=== PATIENT | female | born 2000 | race Caucasian/White ===

== ENCOUNTER 2019-05-02 22:16 | Emergency (ER) | payer MEDICAID, SELFPAY ==
[2019-05-02 22:16] VITALS: BP 134/79; PULSE 82; RESP 16; TEMP 36.9; O2SAT 97; BMI 42.3
--- NOTE | 2019-05-02 22:39 | US_ITS ---
STUDY: ABDOMINAL ULTRASOUND - RIGHT UPPER QUADRANT REASON FOR VISIT: Female, 18 years old ABD PAIN -STARTED TODAY SEVERE NOW . Nausea, vomiting. TECHNIQUE: Ultrasound evaluation of the right upper quadrant was performed with real-time and static go-scale imaging. TECHNICAL QUALITY: Limited. Examination limited due to obesity. COMPARISON: None. FINDINGS: Liver: The liver measures 24 cm. There is increased and heterogeneous echogenicity consistent with fatty infiltration. There is a hypoechoic area within the right hepatic lobe measuring 5.9 x 5.3 x 6.1 and 1.5 x 2.2 cm, in the left hepatic lobe 1.8 x 1.8 x 1.2 cm. The bile ducts are within normal limits. There is hepatic color flow. The direction of portal flow is hepatopetal. There is limited parenchymal detail. Gallbladder: 10.5 cm distended gallbladder. The gallbladder wall measures approximately 3 mm. There is a negative sonographic Taylor''s sign. There is no pericholecystic fluid. There are no gallstones. Common Bile Duct (C.B.D.): The common bile duct measures 5 mm. Pancreas: There is nonvisualization of the pancreas. Right Kidney: Normal size of the right kidney. The right kidney measures 11.5 x 5 x 4.5 cm. Normal renal cortex. The right cortex measures 1.3 cm. There is limited parenchymal detail. There is no right hydronephrosis. US/Gallbladder IMPRESSION: Hepatomegaly and hepatic steatosis. Multiple hypoechoic hepatic lesions could be seen with focal fatty sparing. Other etiologies not excluded. Further assessment can be obtained with dynamic CT liver or MRI. Pancreas and parenchymal detail is limited. No acute cholecystitis, cholelithiasis or biliary ductal obstruction. No ascites or right hydronephrosis. Electronically Signed: Lisa Hannah MD at 23:54 EDT , Service support ,
[2019-05-02] MEDS: Morphine 4 MG/ML Syringe IV (22:51)
[2019-05-02] MEDS: 0.9% Normal Saline 1,000 ML 125 ML IV (22:51)
[2019-05-02] MEDS: Ondansetron 4 MG/2 ML Vial IV (22:52)
[2019-05-02 23:00] LABS: Absolute Lymphocyte Count 1.93 X10^3/uL (0.83-4.51); Absolute Neutrophil Count 3.2 X10^3/uL (2.0-7.7); Basophil# 0.02 X10^3/uL; Basophil% 0.3 % (0-1); Eosinophil# 0.12 X10^3/uL; Eosinophils% 2.1 % (0-5); Hematocrit 39.9 % (37-47); Hemoglobin 12.2 g/dL (12.0-15.0); Lymphocyte # 1.93 X10^3/ul (4.0); Lymphocyte % 33.2 % (19-41); Mean Corp Hgb Conc 30.6 g/dL (32-36); Mean Corpuscular Hgb 23.5 pg (27.0-32.0); Mean Corpuscular Volume 76.7 fL (81-99); Mean Platelet Vol. 11.6 fl (6.2-12.0); Monocyte% 8.6 % (0-10); NRBC Flagged by Analyzer 0 % (0-5); Neutrophil # 3.23 X10^3/uL (2.7-7.7); Neutrophil % 55.5 % (47-70); Platelet Count 241 K/mm3 (150-450); RBC Distribution Width CV 15.3 % (11.6-14.6); White Blood Count 5.8 K/mm3 (4.4-11.0)
[2019-05-02 23:10] LABS: Prothrombin Time (Protime)PT. 13.4 SECONDS (11.7-14.9)
[2019-05-02 23:11] LABS: Partial Thromboplast Time 28.2 Seconds (24.1-36.2)
--- NOTE | 2019-05-02 23:13 | ED.VIS.GEN ---
History of Present Illness Chief Complaint: Abd Pain Informant: Patient Onset: Today Narrative: Patient 4-month with delivery in [facility]. Presents today with increasing abdominal pain with nausea after eating at 2 PM. Reports ate [employer]. She states been having nausea since Sunday, saw urgent care on Sunday reported to monitor symptoms and it was worsen to go to the emergency department. She did not have pain at that time. She reports she is been having nausea with food every time. Today was the first time she had pain. Denies fever. States she had an uncomplicated vaginal delivery. Her last meal was at 2 PM. States did not have any complications with pain during . Reports history of tonsillectomy. Reports bottlefeeding. Denies any allergies. Prior similar symptoms: No Past Medical History - Allergies and Home Meds Allergies/Adverse Reactions: Allergies No Known Allergies Allergy (Verified 05/02/19 22:18) Primary Care Physician: Zurdo Sommers MD [STAFF PHYSICIAN] - 3-5 Days Salo Pederson DO [NON CLINICAL AFFILIATE] - 5-7 Days Past Medical History: - Surgical History: tonsillectomy Smoking Status: Never smoker Review of Systems General: Denies: Chills, Fever, Sweats Eyes: Denies: Visual changes - bilaterally, Diplopia ENT: Denies: Rhinorrhea, Sore throat Cardiovascular: Denies: Chest pain, Palpitations Respiratory: Denies: Dyspnea, Cough, Dyspnea on exertion Gastrointestinal: Reports: Abdominal pain, Nausea. Denies: Vomiting, Diarrhea, Melena, Hematochezia Genitourinary: Denies: Dysuria, Hematuria, Frequency Musculoskeletal: Denies: Back pain, Extremity Pain Skin: Denies: Rash, Wounds Neurological: Denies: Headache, Weakness, Numbness Physical Exam Vital Signs/Narrative: Vital Signs Temp Pulse Resp BP Pulse Ox 05/02/19 22:16 98.4 F 82 16 134/79 H 97 Inital Vital Signs reviewed: Yes General: Well nourished, Well developed, Obese, No Acute Distress Head: Normocephalic, Atraumatic Eyes: Perrl, EOMI ENT: Moist mucous membranes, No rhinorrhea Neck: Supple, Nontender Cardiovascular: Regular rate, Regular rhythm, No murmurs Respiratory: No distress, CTA bilaterally, Chest nontender Abdomen: Soft, Nondistended, Normal bowel sounds, Tender, Taylor's sign, - - Negative McBurney's. Back: Nontender, Normal Inspection Extremities: Nontender, No edema Skin: Normal color, No rash Neurological: Alert, Oriented x3, Cranial nerves II-XII grossly intact, Normal Strength, Normal Sensation Psychological: Normal affect, Normal Mood Diagnostic/Tx/Re-eval Abnormal Lab Results 05/02/19 05/02/19 05/02/19 22:52 22:52 22:52 WBC 5.8 RBC 5.20 Hgb 12.2 Hct 39.9 MCV 76.7 L MCH 23.5 L MCHC 30.6 L RDW Std Deviation 42.0 RDW Coeff of Danielle 15.3 H Plt Count 241 MPV 11.6 Immature Gran % (Auto) 0.300 Neut % (Auto) 55.5 Lymph % (Auto) 33.2 [place] % (Auto) 8.6 Eos % (Auto) 2.1 Baso % (Auto) 0.3 Absolute Neuts (auto) 3.2 Absolute Lymphs (auto) 1.93 Nucleated RBC % 0 PT 13.4 INR 1.0 APTT 28.2 Sodium 140 Potassium 3.8 Chloride 106 Carbon Dioxide 28.0 Anion Gap 6 BUN 13 Creatinine 0.74 Estim Creat Clear Calc 117.93 Est GFR (MDRD) Af Amer 127 Est GFR (MDRD) Non-Af 105 BUN/Creatinine Ratio 17.4 Glucose 79 Calcium 9.0 Total Bilirubin 0.40 Direct Bilirubin 0.12 AST 32 ALT 42 Alkaline Phosphatase 128 H Total Protein 7.8 Albumin 3.4 Globulin 4.4 H Lipase 149 Clinical Impression(s) from Imaging Studies Gallbladder Ultrasound 05/02/19 22:39 IMPRESSION: Hepatomegaly and hepatic steatosis. Multiple hypoechoic hepatic lesions could be seen with focal fatty sparing. Other etiologies not excluded. Further assessment can be obtained with dynamic CT liver or MRI. Pancreas and parenchymal detail is limited. No acute cholecystitis, cholelithiasis or biliary ductal obstruction. No ascites or right hydronephrosis. Electronically Signed: Lisa Hannah MD at 23:54 EDT , Service support , Abdomen/Pelvis CT 05/03/19 00:43 IMPRESSION: Abnormal liver as seen on ultrasound with multiple indistinct hyperattenuation lesions. These may repeat percent hemangiomata less likely focal nodular hyperplasia as benign entities in patient''s age group. Follow-up examination with MRI for confirmation is recommended. Next an eccentric hepatosplenomegaly and hepatic steatosis. Right abdominal mesenteric lymph nodes possible mesenteric adenitis. There is no abscess, collection, perforation or obstruction. Normal pancreas which was obscured on ultrasound. Other nonacute findings as outlined above. Electronically Signed: Lisa Hannah MD at 1:47 EDT , Service support , - Medical Decision Making Patient right upper quadrant tenderness, history concerning for biliary colic especially . Labs obtain ultrasound ordered. Normal white count normal liver enzymes. Slightly elevated ALP. She is treated morphine, Zofran, IV fluids. Ultrasound results negative for any acute process mild distended gallbladder. There is no signs of cholecystitis. Reevaluation space minimal improvement of pain additional morphine given, CT scan obtained for further evaluation. There is no acute process noting normal appendix. There was concerns for likely hemangiomas in her liver. Discussed results with the patient for further testing as an outpatient. Also noted some mesenteric adenopathy. Discussed with the patient biliary colic symptoms, avoiding dairy products and fatty products, she will likely need a HIDA scan as an outpatient. She is feeling better on reevaluation. 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 Also given a PCP due to recently moving in the area per patient. Signs and symptoms discussed to return. All questions were answered. ED Disposition - Plan for ED Patient: Disposition: Home or Assisted Living Diagnosis: Biliary colic, Hemangioma of liver, RUQ abdominal pain Instructions: BILIARY COLIC with Gallstone (Presumed) Prescriptions: Ibuprofen [Motrin] 600 mg PO Q6H PRN PRN #20 tab PRN Reason: Pain Or Fever Prescription Printed Ondansetron [Zofran Odt] 8 mg PO Q8H PRN PRN #10 tab PRN Reason: Nausea Prescription Printed Referrals: Zurdo Sommers MD [STAFF PHYSICIAN] - 3-5 Days Salo Pederson DO [NON CLINICAL AFFILIATE] - 5-7 Days
[2019-05-02 23:17] LABS: AST(SGOT) 32 U/L (15-37); Alanine Aminotransfer ALT/SGPT 42 U/L (13-56); Albumin, Serum 3.4 g/dL (3.2-5.0); Alkaline Phosphatase 128 U/L (45-117); Anion Gap 6 (5-15); BUN 13 mg/dL (7-18); BUN/Creat Ratio 17.4 RATIO (10-20); Bilirubin, Direct 0.12 mg/dL (0.00-0.30); Chloride 106 mmol/L (98-107); Creatinine, Serum 0.74 mg/dL (0.55-1.02); EST Glomerular Filtration Rate 105 mL/min (>60); Est Glom Filt Rate - Afr Amer 127 mL/min (>60); Estimated Creatinine Clearance 117.93 ml/min; Globulin 4.4 g/dL (2.2-4.2); Glucose 79 mg/dL (74-106); Lipase 149 U/L (73-393); Potassium 3.8 mmol/L (3.5-5.1); Protein, Total 7.8 g/dL (6.4-8.2); Sodium Level 140 mmol/L (136-145)
--- NOTE | 2019-05-03 00:43 | CT_ITS ---
STUDY: CT ABDOMEN AND PELVIS WITH CONTRAST REASON FOR EXAM: Female, 18 years old. RIGHT SIDED ABD PAIN WITH N/V, 4 MONTHS POST , ABNORMAL US EARLIER RADIATION DOSAGE (If Supplied By Facility): CTDIvol = ( 20.55 ) mGy, DLP = ( 2203.69 ) mGycm TECHNIQUE: Transaxial 3.75 mm enhanced and 4 minutes delayed abdominal images were obtained from the dome of the diaphragm to the symphysis pubis without oral contrast. IV 100mL Isovue-300 was administered. Sagittal and coronal images were reconstructed. There is obesity, the entirety of soft tissue is not imaged. Individualized dose optimization techniques were used for this CT. COMPARISON: Abdominal ultrasound 05/02/2019. FINDINGS: The visualized lung bases are unremarkable. The visualized portions of the heart are within normal limits. There is decreased attenuation of the enlarged liver consistent with steatosis. Trimester screening caudal 25.5 cm. There is heterogeneous indistinct attenuation of the liver parenchyma, in the left lobe measuring approximately 7.9 x 6.3 by approximately 2.8 cm image 13 series 2 and 1.5 x 1.5 cm image 32 series 2, in the right 0.9 cm image 22, 1.4 x 1.2 cm image 23, 1.5 x 2 cm image 24, 1.1 x 1 cm image 40 series 2. These remain poorly distinct on delayed imaging. The right inferior renal pole contains a 6 x 6 x 5.5 cm hyper attenuation with central hypoattenuation which is more homogeneous than the hyperechoic on delayed imaging. Normal gallbladder and extrahepatic biliary system. There is mild splenomegaly. Spleen measures AP 15 cm. Normal pancreas. Normal bilateral adrenal glands. Normal right kidney. Normal left kidney. Normal visualized stomach. Normal small intestine. There is moderate amount of fecal material. There is otherwise normal colon. The appendix is visualized and appears normal. Image 66-71 series 601. Enlarged mesenteric lymph nodes in the right mid and lower abdomen. Largest measures 0.6 x 1.1 x 1.8 cm. Normal abdominal aorta. Normal inferior vena cava. Normal retroperitoneum. Normal urinary bladder. Normal visualized uterus. There is low attenuation of the ovaries most frequently due to follicular cysts. Normal abdominal wall. Normal osseous structures. 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 CT/Abdomen/Pelvis W IV Cont ONLY IMPRESSION: Abnormal liver as seen on ultrasound with multiple indistinct hyperattenuation lesions. These may repeat percent hemangiomata less likely focal nodular hyperplasia as benign entities in patient''s age group. Follow-up examination with MRI for confirmation is recommended. Next an eccentric hepatosplenomegaly and hepatic steatosis. Right abdominal mesenteric lymph nodes possible mesenteric adenitis. There is no abscess, collection, perforation or obstruction. Normal pancreas which was obscured on ultrasound. Other nonacute findings as outlined above. Electronically Signed: Lisa Hannah MD at 1:47 EDT , Service support ,
[2019-05-03 01:17] VITALS: BP 103/64; PULSE 74; RESP 16; O2SAT 95
[2019-05-03] MEDS: Morphine 4 MG/ML Syringe IV (01:18)
[2019-05-03 02:43] VITALS: BP 110/65; PULSE 82; RESP 16; O2SAT 96
== END 2019-05-03 02:44 | disposition home or self-care (01) ==
PROVIDERS: Emergency Provider Emergency Medicine
DX: K80.50 Calculus of bile duct without cholangitis or cholecystitis without obstruction (principal); D18.03 Hemangioma of intra-abdominal structures; E66.9 Obesity, unspecified
CPT/HCPCS: 74177; 76705; 80048; 80076; 83690; 85025; 85610; 85730; 96361; 96374; 96375; 96376; 99283; J7030; Q9967; A4216; J2405

== ENCOUNTER → 2019-06-03 | Outpatient (CLI) | payer MEDICAID, SELFPAY | END | disposition home or self-care (01) | PROVIDERS: Referring Provider Obstetrics & Gynecology; Visit Provider Obstetrics & Gynecology | DX: R30.0 Dysuria (principal) | CPT/HCPCS: 87086; 87088 ==

== ENCOUNTER → 2019-11-04 16:47 | Outpatient (CLI) | payer MEDICAID, SELFPAY ==
[2019-11-04 18:01] LABS: Thyroid Stim Hormone (TSH) 1.34 uIU/mL (0.358-3.74)
[2019-11-07 16:54] LABS: HPV Reflexed? NOT INDICATED
== END ==
PROVIDERS: Visit Provider Student in an Organized Health Care Education/Training Program
DX: Z12.4 Encounter for screening for malignant neoplasm of cervix (principal); E66.3 Overweight
CPT/HCPCS: 36415; 84443; 88175; G0145

== ENCOUNTER → 2020-06-01 15:22 | Outpatient (CLI) | payer MEDICAID, SELFPAY ==
[2020-06-01 17:18] LABS: Estradiol 60.3 pg/mL; Luteinizing Hormone 10.4 mIU/mL; Prolactin 8.9 ng/mL; T4 Free Direct 1.03 ng/dL (0.76-1.46); Thyroid Stim Hormone (TSH) 1.81 uIU/mL (0.358-3.74)
[2020-06-01 20:23] LABS: Hemoglobin A1c 5.1 % (3.8-5.6)
[2020-06-05 20:04] LABS: Testosterone Free 3.5 pg/mL (0.0-4.2)
[2020-06-10 20:11] LABS: 17-Hydroxyprogesterone 55 ng/dL (.)
== END ==
PROVIDERS: Visit Provider Student in an Organized Health Care Education/Training Program
DX: N92.6 Irregular menstruation, unspecified (principal)
CPT/HCPCS: 36415; 82627; 82670; 83001; 83002; 83036; 83498; 84146; 84402; 84439; 84443; 82626

== ENCOUNTER 2020-06-12 18:32 | Emergency (ER) | payer MEDICAID, SELFPAY ==
[2020-06-12 18:32] VITALS: BP 157/108; PULSE 102; RESP 18; TEMP 36.6; O2SAT 98; BMI 49.8
--- NOTE | 2020-06-12 18:54 | CT_ITS ---
INDICATION: abdominal pain EXAMINATION: CT Abdomen And Pelvis W/ Contrast Injection TECHNIQUE: Helically acquired images were obtained of the abdomen and pelvis after IV contrast. A radiation dose optimization technique was used for this scan. IV Contrast dosage and agent: 100 cc [id number]-300 Oral contrast: None. COMPARISON: 05/03/2019. FINDINGS: Visualized lung bases: Unremarkable Liver: The liver is enlarged and Diffusely hypodense consistent with fatty liver. Multiple hyperattenuating liver masses are again seen, largest of which measures 7.5 x 6.6 cm and in segment 6 (image 70, series 2). Gallbladder: Unremarkable Spleen: Unremarkable Pancreas: Unremarkable Adrenal Glands: Unremarkable Kidneys: Unremarkable Vasculature: Unremarkable GI Tract: Unremarkable Lymphadenopathy: None Peritoneum: No ascites. Bladder: Unremarkable Reproductive organs: Unremarkable Bones/Soft tissues: No suspicious osseous or soft tissue lesions CT/Abdomen/Pelvis W IV Cont ONLY IMPRESSION: Multiple hypoattenuating liver masses are again seen and are stable to slightly increased in size when compared to prior on 05/03/2019. Possible etiologies include hemangiomas, adenomas or focal nodular hyperplasia. Recommend abdominal MRI liver mass protocol for further evaluation. Hepatomegaly. Severe hepatic steatosis. Electronically Signed: Albert Sanders MD at 20:40 EDT Tel , Service support ,
--- NOTE | 2020-06-12 18:55 | ED.DCSUM_ITS ---
History of Present Illness Chief Complaint: Abd Pain Informant: Patient Narrative: 19-year-old female states for about a week now she has had abdominal pain that is worsening. She states that initially it felt like a menstrual cramp but she has not had a menstrual cycle since February. She is currently working with her medical illustrator as to figure out why she is not having regular cycles and is actively trying to get . She tells me that over the week his cramping feeling has gradually worsened has now become more of a constant pain across her low back and across her lower abdomen does not radiate up to her upper abdomen. She states it has been particularly bad at night she has not been sleeping. She states the pain is the worst pain ever at night but despite being the worst pain ever she did not come in until she was talking with her mom abe she wanted her to come in to be seen. She has a history of PCOS. No history of kidney stones. She denies any prior abdominal surgeries. Normal bowel movements. No urinary symptoms Past Medical History - Allergies and Home Meds Allergies/Adverse Reactions: Allergies No Known Allergies Allergy (Verified 06/12/20 18:34) Primary Care Physician: Care Physician,No Primary [Primary Care Provider] - Past Medical History: - - PCOS Surgical History: tonsillectomy Lives: Spouse/ Significant Other Smoking Status: Never smoker Drugs: None Review of Systems General: Denies: Chills, Fever, Sweats Eyes: Denies: Visual changes - bilaterally, Diplopia ENT: Denies: Rhinorrhea, Sore throat Cardiovascular: Denies: Chest pain, Palpitations Respiratory: Denies: Dyspnea, Cough, Dyspnea on exertion Gastrointestinal: Reports: Abdominal pain, Nausea. Denies: Vomiting, Diarrhea, Melena, Hematochezia Genitourinary: Denies: Dysuria, Hematuria, Frequency Musculoskeletal: Denies: Back pain, Extremity Pain Skin: Denies: Rash, Wounds Neurological: Denies: Headache, Weakness, Numbness Physical Exam Vital Signs/Narrative: Vital Signs Temp Pulse Resp BP Pulse Ox 06/12/20 18:32 97.9 F 102 H 18 157/108 H 98 Inital Vital Signs reviewed: Yes General: Well nourished, Well developed, Obese, No Acute Distress Head: Normocephalic, Atraumatic Eyes: Perrl, EOMI ENT: Moist mucous membranes, No rhinorrhea Neck: Supple, Nontender Cardiovascular: Regular rate, Regular rhythm, No murmurs Respiratory: No distress, CTA bilaterally, Chest nontender Abdomen: Soft, Nondistended, Normal bowel sounds, Tender - To palpation of the lower abdomen however I am not palpating through the abdominal wall when she tells me that it is hurting her. Back: Nontender, Normal Inspection Extremities: Nontender, No edema Skin: Normal color, No rash Neurological: Alert, Oriented x3, Cranial nerves II-XII grossly intact, Normal Strength, Normal Sensation Psychological: Normal affect, Normal Mood Diagnostic/Tx/Re-eval Clinical Impression(s) from Imaging Studies Abdomen/Pelvis CT 06/12/20 18:54 IMPRESSION: Multiple hypoattenuating liver masses are again seen and are stable to slightly increased in size when compared to prior on 05/03/2019. Possible etiologies include hemangiomas, adenomas or focal nodular hyperplasia. Recommend abdominal MRI liver mass protocol for further evaluation. Hepatomegaly. Severe hepatic steatosis. Electronically Signed: Albert Sanders MD at 20:40 EDT Tel , Service support , Laboratory Last Values WBC 8.3 K/mm3 (4.4-11.0) 06/12/20 18:56 RBC 5.46 M/mm3 (4.2-5.4) H 06/12/20 18:56 Hgb 13.4 g/dL (12.0-15.0) 06/12/20 18:56 Hct 45.5 % (37-47) 06/12/20 18:56 MCV 83.3 fL (81-99) 06/12/20 18:56 MCH 24.5 pg (27.0-32.0) L 06/12/20 18:56 MCHC 29.5 g/dL (32-36) L 06/12/20 18:56 RDW Std Deviation 40.8 fl (35.1-43.9) 06/12/20 18:56 RDW Coeff of Danielle 13.6 % (11.6-14.6) 06/12/20 18:56 Plt Count 230 K/mm3 (150-450) 06/12/20 18:56 MPV 12.9 fl (6.2-12.0) H 06/12/20 18:56 Immature Gran % (Auto) 0.200 % (0.0-0.9) 06/12/20 18:56 Neut % (Auto) 61.1 % (47-70) 06/12/20 18:56 Lymph % (Auto) 29.8 % (19-41) 06/12/20 18:56 [place] % (Auto) 6.5 % (0-10) 06/12/20 18:56 Eos % (Auto) 1.8 % (0-5) 06/12/20 18:56 Baso % (Auto) 0.6 % (0-1) 06/12/20 18:56 Absolute Neuts (auto) 5.1 X10^3/uL (2.0-7.7) 06/12/20 18:56 Absolute Lymphs (auto) 2.48 X10^3/uL (0.83-4.51) 06/12/20 18:56 Nucleated RBC % 0 % (0-5) 06/12/20 18:56 Sodium 133 mmol/L (136-145) L 06/12/20 18:56 Potassium 5.0 mmol/L (3.5-5.1) 06/12/20 18:56 Chloride 106 mmol/L (98-107) 06/12/20 18:56 Carbon Dioxide 21.0 mmol/L (21.0-32.0) 06/12/20 18:56 Anion Gap 6 (5-15) 06/12/20 18:56 BUN 15 mg/dL (7-18) 06/12/20 18:56 Creatinine 0.78 mg/dL (0.55-1.02) 06/12/20 18:56 Estim Creat Clear Calc 110.95 ml/min 06/12/20 18:56 Est GFR (MDRD) Af Amer 119 mL/min (>60) 06/12/20 18:56 Est GFR (MDRD) Non-Af 99 mL/min (>60) 06/12/20 18:56 BUN/Creatinine Ratio 19.3 RATIO (10-20) 06/12/20 18:56 Glucose 82 mg/dL (74-106) 06/12/20 18:56 Calcium 9.6 mg/dL (8.5-10.1) 06/12/20 18:56 Total Bilirubin 0.70 mg/dL (0.20-1.00) 06/12/20 18:56 AST 56 U/L (15-37) H 06/12/20 18:56 ALT 71 U/L (13-56) H 06/12/20 18:56 Alkaline Phosphatase 115 U/L (45-117) 06/12/20 18:56 Total Protein 8.8 g/dL (6.4-8.2) H 06/12/20 18:56 Albumin 3.7 g/dL (3.2-5.0) 06/12/20 18:56 Globulin 5.1 g/dL (2.2-4.2) H 06/12/20 18:56 Albumin/Globulin Ratio 0.7 RATIO (0.9-2.4) L 06/12/20 18:56 Lipase 122 U/L (73-393) 06/12/20 18:56 Serum , Qual Cancelled 06/12/20 18:56 Urine Color Yellow (Yellow) 06/12/20 18:39 Urine Clarity Cloudy (Clear) 06/12/20 18:39 Urine pH 5.0 (5.0 - 8.0) 06/12/20 18:39 Ur Specific [place] 1.025 (1.002-1.030) 06/12/20 18:39 Urine Protein 15 mg/dl (Negative) H 06/12/20 18:39 Urine Glucose (UA) Normal mg/dl (Normal) 06/12/20 18:39 Urine Ketones Negative mg/dl (Negative) 06/12/20 18:39 Urine Occult Blood 10 /ul (Negative) H 06/12/20 18:39 Urine Nitrite Negative (Negative) 06/12/20 18:39 Urine Bilirubin Negative mg/dL (Negative) 06/12/20 18:39 Urine Urobilinogen Normal mg/dl (Normal) 06/12/20 18:39 Ur Leukocyte Esterase 500 /ul (Negative) H 06/12/20 18:39 Urine RBC 0 SEEN /hpf (0-5) 06/12/20 18:39 Urine WBC 10-25 SEEN /hpf (0-5) 06/12/20 18:39 Ur Squamous Epith Cells 10-25 SEEN /hpf (5-10) 06/12/20 18:39 Urine Bacteria 3+ /hpf (None Seen) 06/12/20 18:39 Urine Mucus 0 SEEN /hpf (<or=2+) 06/12/20 18:39 Urine Test Negative Negative 06/12/20 19:41 - Medical Decision Making Since urine specimen is contaminated with epithelial cells she does have 4+ bacteria. She does have suprapubic discomfort. X-rays will place her on an antibiotic. Otherwise labs show a slight elevation in transaminases. CT the pelvis demonstrates no ureterolithiasis hydronephrosis or hydroureter, there is no large ovarian cyst. There is severe hepatic steatosis which was relayed to the patient. I encouraged her to follow-up with primary care return if worsening or concerns ED Disposition - Plan for ED Patient: Disposition: Home or Assisted Living Diagnosis: Hepatic steatosis, Acute abdominal pain, UTI (urinary tract infection) Instructions: ED Bladder Infection, Female (Adult) Prescriptions: Cephalexin [Keflex] 500 mg PO Q12 #10 capsule Prescription Printed Referrals: Elmer Brown III, MD [STAFF PHYSICIAN] - (as needed for primary care)
[2020-06-12] MEDS: Ondansetron 4 MG/2 ML Vial IV (19:01)
[2020-06-12] MEDS: Ketorolac 30 MG/ML Syringe IV (19:01)
[2020-06-12 19:02] LABS: Mucous, Urine 0 SEEN /hpf (<or=2+); Red Blood Cells-Urine 0 SEEN /hpf (0-5)
[2020-06-12 19:04] LABS: Color, Urine Yellow (Yellow); Glucose, Dipstick Normal (Normal); Ketone-Dipstick Negative (Negative); Leukocyte Esterase-Dipstick 500 /ul (Negative); Nitrite-Dipstick Negative (Negative); Occult Blood-Urine 10 /ul (Negative); Protein-Dipstick 15 mg/dl (Negative); Specific Gravity, Urine 1.025 (1.002-1.030); Urine Bilirubin Dipstick Negative (Negative); Urine Clarity Cloudy (Clear); Urine Urobilinogen Normal (Normal)
[2020-06-12 19:06] LABS: Absolute Lymphocyte Count 2.48 X10^3/uL (0.83-4.51); Absolute Neutrophil Count 5.1 X10^3/uL (2.0-7.7); Basophil# 0.05 X10^3/uL; Basophil% 0.6 % (0-1); Eosinophil# 0.15 X10^3/uL; Eosinophils% 1.8 % (0-5); Hematocrit 45.5 % (37-47); Hemoglobin 13.4 g/dL (12.0-15.0); Lymphocyte # 2.48 X10^3/ul (0.83-4.51); Lymphocyte % 29.8 % (19-41); Mean Corp Hgb Conc 29.5 g/dL (32-36); Mean Corpuscular Hgb 24.5 pg (27.0-32.0); Mean Corpuscular Volume 83.3 fL (81-99); Mean Platelet Vol. 12.9 fl (6.2-12.0); Monocyte# 0.54 X10^3/uL; Monocyte% 6.5 % (0-10); NRBC Flagged by Analyzer 0 % (0-5); Neutrophil # 5.07 X10^3/uL (2.7-7.7); Neutrophil % 61.1 % (47-70); Platelet Count 230 K/mm3 (150-450); RBC Distribution Width CV 13.6 % (11.6-14.6); RBC Distribution Width SD 40.8 fl (35.1-43.9); Red Blood Count 5.46 M/mm3 (4.2-5.4); White Blood Count 8.3 K/mm3 (4.4-11.0)
[2020-06-12 19:13] LABS: Squamous Epithelial Cells - UA 10-25 SEEN /hpf (5-10); White Blood Cells 10-25 SEEN /hpf (0-5)
[2020-06-12 19:17] LABS: ALB/GLOB Ratio 0.7 RATIO (0.9-2.4); AST(SGOT) 56 U/L (15-37); Alanine Aminotransfer ALT/SGPT 71 U/L (13-56); Albumin, Serum 3.7 g/dL (3.2-5.0); Alkaline Phosphatase 115 U/L (45-117); Anion Gap 6 (5-15); BUN 15 mg/dL (7-18); BUN/Creat Ratio 19.3 RATIO (10-20); Calcium,Total 9.6 mg/dL (8.5-10.1); Chloride 106 mmol/L (98-107); Creatinine, Serum 0.78 mg/dL (0.55-1.02); EST Glomerular Filtration Rate 99 mL/min (>60); Est Glom Filt Rate - Afr Amer 119 mL/min (>60); Estimated Creatinine Clearance 110.95 ml/min; Globulin 5.1 g/dL (2.2-4.2); Glucose 82 mg/dL (74-106); Lipase 122 U/L (73-393); Protein, Total 8.8 g/dL (6.4-8.2); Sodium Level 133 mmol/L (136-145)
[2020-06-12 19:25] LABS: Bacteria 3+ /hpf (None Seen)
[2020-06-12 19:53] LABS: Internal QC Validated? YES +Cl - CLEAR BKGD; Pregnancy, Urine Negative Negative
[2020-06-12 20:51] VITALS: RESP 14
[2020-06-12] MEDS: Cephalexin 250 MG Capsule 500 MG PO (21:06)
== END 2020-06-12 21:10 | disposition home or self-care (01) ==
PROVIDERS: Emergency Provider Emergency Medicine
DX: K76.0 Fatty (change of) liver, not elsewhere classified (principal); N39.0 Urinary tract infection, site not specified; E66.9 Obesity, unspecified; Z68.42 Body mass index [BMI] 45.0-49.9, adult
CPT/HCPCS: 74177; 80053; 81001; 81025; 83690; 85025; 96374; 96375; 99285; Q9967; A4216; J2405

== ENCOUNTER → 2020-10-11 08:40 | Outpatient (CLI) | payer MEDICAID, SELFPAY ==
[2020-10-11 11:22] LABS: Progesterone Level 6.79 ng/mL (See Comment)
== END ==
PROVIDERS: Visit Provider Obstetrics & Gynecology
DX: N97.0 Female infertility associated with anovulation (principal)
CPT/HCPCS: 36415; 84144

== ENCOUNTER → 2020-10-19 09:23 | Outpatient (CLI) | payer MEDICAID, SELFPAY ==
[2020-10-19 11:29] LABS: hCG Titer Quant., Serum 6 mIU/mL (1-3)
== END ==
PROVIDERS: Visit Provider Obstetrics & Gynecology
DX: N97.0 Female infertility associated with anovulation (principal)
CPT/HCPCS: 36415; 84702

== ENCOUNTER → 2020-10-21 08:46 | Outpatient (CLI) | payer OTHER, MEDICAID, SELFPAY ==
[2020-07-21 15:18] VITALS: BMI 49.8
[2020-10-21 10:19] LABS: Progesterone Level 1.52 ng/mL (See Comment)
[2020-10-21 11:37] LABS: hCG Titer Quant., Serum 2 mIU/mL (1-3)
== END ==
LOC: LAB.FUTURE 08:48 → LAB 08:50
PROVIDERS: Referring Provider Obstetrics & Gynecology; Visit Provider Obstetrics & Gynecology
DX: N97.0 Female infertility associated with anovulation (principal)
CPT/HCPCS: 36415; 84144; 84702

== ENCOUNTER 2020-10-22 13:28 | Emergency (ER) | payer OTHER, MEDICAID, SELFPAY ==
[2020-10-22 13:29] VITALS: BP 141/58; RESP 71; TEMP 36.4; O2SAT 18; BMI 46.5
--- NOTE | 2020-10-22 14:11 | US_ITS ---
History: pelvic pain, vaginal bleeding Pelvic Ultrasound: Findings: Endovaginal ultrasound imaging of the pelvis. Uterus is normal size with endometrial thickness of 10 mm. The ovaries are normal in size, echogenicity and perfusion. Right ovary measures 3.8 x 3.9 x 2.2 cm. Left ovary measures 3.2 x 3.4 x 2.1 cm. No adnexal mass. No fluid in the cul-de-sac. IMPRESSION: Normal pelvic ultrasound. at 1519 Reported and signed by: Mark Brand MD Electronically Signed: Mark Brand MD at 15:18 EDT Tel , Service support , US/Transvaginal Non-
--- NOTE | 2020-10-22 14:12 | EDS_ITS ---
HPI HPI - Female History of Present Illness Chief Complaint: Vag Bleeding Detail of Chief Complaint: Vaginal bleeding that started last evening Narrative Narrative: Patient presents with vaginal bleeding that started last evening. Patient states initially was light. Patient states that she took a test on October 18 and it was positive at home. Patient called her ADMINISTRATIVE COURT JUSTICE who had her do a quant and was 6. Patient had a repeat quant yesterday and it was 2. Patient states that throughout the night she started having heavy vaginal bleeding and woke up around 10 AM soaked in blood. Patient states that between 10 AM and 11:45 AM she went through 2 pads and change another 1 before coming to the ER. Patient complains of pain in her lower abdomen and into her back. She denies fevers. Patient is G2, P1. [facility] Medical History (Updated 10/22/20 @ 15:[address] Wyatt Pennington, ) PCOS (polycystic ovarian syndrome) Physical exam, pre-employment Home Medications metformin 1,500 mg PO BID 10/22/20 [History Last Taken Unknown] valacyclovir 500 mg PO DAILY 10/22/20 [History Last Taken Unknown] Allergy/AdvReac Type Severity Reaction Status Date / Time No Known Allergies Allergy Verified 06/12/20 18:34 Social History Smoking Status: Never smoker ROS [facility] ED Constitutional Constitutional ED: Reports systems reviewed and no addt'l complaints, except as documented; Denies body ache(s), change in weight or chills Eyes Eyes: Denies acute decrease in peripheral vision, change in vision, double vision or loss of vision ENT ENT ED: Reports none; Denies ear pain, lip swelling, loss taste/smell, neck pain, otalgia or sore throat Cardiovascular Cardiovascular: Reports none; Denies abdominal pain, chest pain with activity, leg edema, lightheadedness, palpitations, rapid heart rate or syncope Respiratory/Chest Respiratory/Chest: Reports none; Denies change in mental status, dry cough, dyspnea, hemoptysis, shortness of breath at rest or shortness of breath with exertion Gastrointestinal Gastrointestinal: Reports none and abdominal pain; Denies change in stool character, diarrhea, hematemesis, hematochezia, melena, rectal bleeding or vomiting Genitourinary Genitourinary ED: Reports none and other Details: Vaginal bleeding ; Denies abdominal discomfort, anuria, dysuria, genital pain or polyuria Musculoskeletal Musculoskeletal: Reports none; Denies arthralgias, back pain, difficulty walking, extremity pain, muscle weakness or myalgias Integumentary Reports none; Denies abscess or rash Neurologic Neurologic: Reports none; Denies abnormal gait, confusion, focal weakness, frequent falls, headache(s), loss of vision, numbness, paresthesias, radicular pain, vertigo or weakness Psychiatric Psychiatric: Reports systems reviewed and no addt'l complaints, except as documented and none; Denies behavioral changes, confusion, difficulty concentrating, hallucinations, suicidal ideation, tactile hallucinations or visual hallucinations Endocrine Endocrinology: Denies none, cold intolerance, excessive sweating, fatigue or heat intolerance Hematologic/Lymphatic Hematologic/Lymphatic: Reports none; Denies anemia, easy bleeding or easy bruising Allergic/Immunologic Allergic/Immunologic ED: Denies as per HPI, none, lip swelling, mouth swelling, throat swelling, tongue swelling or hives EXAM Physical Exam Const Vital Signs: 10/22/20 13:29 Temperature 97.6 F L Temperature Source Temporal Respiratory Rate 71 H Blood Pressure 141/58 H Blood Pressure Mean 85 Pulse Ox 18 Positive well nourished and well developed General Appearance ED: well developed and NAD HEENT Reports TM's clear and moist mucous membranes normocephalic and atraumatic; Negative for trauma or tenderness Tympanic Membrane ED: Yes TM's clear Eyes PERRL and EOMs intact bilaterally General Eye ED: Negative for pale conjunctiva or scleral icterus Neck no lymphadenopathy, supple and no JVD General: Negative for tenderness Chest Wall inspection of chest normal and palpation of chest normal Chest: Negative for tenderness Resp normal respiratory effort and clear to auscultation bilaterally Effort and Inspection: Negative for respiratory distress or pain with movement Auscultation: Negative for rhonchi, wheezes or diminished lung sounds Cardio regular rate, regular rhythm, S1 normal heart sound, S2 normal heart sound and no murmurs Peripheral Pulses: pulses 2+ throughout GI normal to inspection, nondistended, normoactive bowel sounds, soft to palpation, non-distended and no masses GI Narrative: Patient has some diffuse suprapubic tenderness on palpation. There is no rebound, rigidity, or peritoneal signs. Back/Spine no CVA tenderness and no thoracic nor lumbar tenderness Extremity normal to inspection General Extremety ED: Negative for edema General Extremity: Negative for edema Neuro oriented x3, CN's II-XII intact bilaterally, no sensory deficits noted and gait normal Sensorium / Orientation: awake, alert, oriented to person, oriented to place and oriented to time Motor Exam: strength 5/5 throughout and strength abnormal Psych mental status grossly normal Skin no rashes or lesions noted and no wounds MDM MDM MDM Narrative Medical decision making narrative: Patient had an IV line established on arrival. Case was discussed with patient's ADMINISTRATIVE COURT JUSTICE Dr. Shannan Moe. Patient will be discharged home and advised to return if she is saturating more than a pad an hour for 4 consecutive hours. Her pelvic ultrasound was unremarkable. Her quant was less than 1 today. Patient hemodynamically stable. She is advised to return if persistent heavy bleeding, lightheadedness, syncope, or condition should worsen anyway. Lab Data Attestation: I reviewed the patient's lab results. Labs: Laboratory Results - last 24 hr 10/22/20 10/22/20 10/22/20 13:44 13:49 13:49 WBC 6.2 RBC 5.21 Hgb 13.2 Hct 41.8 MCV 80.2 L MCH 25.3 L MCHC 31.6 L RDW Std Deviation 39.0 RDW Coeff of Danielle 13.6 Plt Count 262 MPV 11.8 Immature Gran % (Auto) 0.300 Neut % (Auto) 63.9 Lymph % (Auto) 28.1 [place] % (Auto) 6.1 Eos % (Auto) 1.0 Baso % (Auto) 0.6 Absolute Neuts (auto) 4.0 Absolute Lymphs (auto) 1.75 Nucleated RBC % 0 HCG, Quant < 1 Urine Color Urine Clarity Urine pH Ur Specific [place] Urine Protein Urine Glucose (UA) Urine Ketones Urine Occult Blood Urine Nitrite Urine Bilirubin Urine Urobilinogen Ur Leukocyte Esterase Urine RBC Urine WBC Ur Squamous Epith Cells Urine Bacteria Urine Mucus Blood Type O POSITIVE 10/22/20 15:17 WBC RBC Hgb Hct MCV MCH MCHC RDW Std Deviation RDW Coeff of Danielle Plt Count MPV Immature Gran % (Auto) Neut % (Auto) Lymph % (Auto) [place] % (Auto) Eos % (Auto) Baso % (Auto) Absolute Neuts (auto) Absolute Lymphs (auto) Nucleated RBC % HCG, Quant Urine Color Yellow Urine Clarity Cloudy Urine pH 6.0 Ur Specific [place] 1.020 Urine Protein 30 H Urine Glucose (UA) Normal Urine Ketones Negative Urine Occult Blood 250 H Urine Nitrite Negative Urine Bilirubin Negative Urine Urobilinogen Normal Ur Leukocyte Esterase 100 H Urine RBC > 100 SEEN Urine WBC 10-25 SEEN Ur Squamous Epith Cells 5-10 SEEN Urine Bacteria 1+ Urine Mucus 0 SEEN Blood Type Radiography Diagnostic Testing: Radiology Impression Transvaginal US 10/22/20 14:11 Discharge Plan Triage Chief Complaint: Vag Bleeding ED Provider: Wyatt Pennington Dx/Rx/DC Orders Clinical Impression: Vaginal bleeding Instructions: ED Dysfunctional Uterine Bleeding Prescriptions: No Action valacyclovir 500 mg tablet 500 mg PO DAILY RF: 0 metformin 500 mg tablet extended release 24 hr 1,500 mg PO BID RF: 0 Primary Care Provider: Care Physician,No Primary Referrals: Alicja Nagy MD [STAFF PHYSICIAN] - 3-5 Days Care Physician,No Primary [Primary Care Provider] - Disposition Disposition: Home, Self Care
[2020-10-22] MEDS: Morphine 4 MG/ML Syringe IV (14:16)
[2020-10-22] MEDS: Ondansetron 4 MG/2 ML Vial IV (14:16)
[2020-10-22 14:20] LABS: Absolute Lymphocyte Count 1.75 X10^3/uL (0.83-4.51); Basophil# 0.04 X10^3/uL; Basophil% 0.6 % (0-1); Eosinophil# 0.06 X10^3/uL; Hematocrit 41.8 % (37-47); Hemoglobin 13.2 g/dL (12.0-15.0); Lymphocyte # 1.75 X10^3/ul (0.83-4.51); Lymphocyte % 28.1 % (19-41); Mean Corp Hgb Conc 31.6 g/dL (32-36); Mean Corpuscular Hgb 25.3 pg (27.0-32.0); Mean Corpuscular Volume 80.2 fL (81-99); Mean Platelet Vol. 11.8 fl (6.2-12.0); Monocyte# 0.38 X10^3/uL; Monocyte% 6.1 % (0-10); NRBC Flagged by Analyzer 0 % (0-5); Neutrophil # 3.98 X10^3/uL (2.7-7.7); Neutrophil % 63.9 % (47-70); Platelet Count 262 K/mm3 (150-450); RBC Distribution Width CV 13.6 % (11.6-14.6); Red Blood Count 5.21 M/mm3 (4.2-5.4); White Blood Count 6.2 K/mm3 (4.4-11.0)
[2020-10-22 14:46] LABS: hCG Titer Quant., Serum < 1 mIU/mL (1-3)
[2020-10-22 15:22] LABS: Mucous, Urine 0 SEEN /hpf (<or=2+)
[2020-10-22 15:24] LABS: Color, Urine Yellow (Yellow); Glucose, Dipstick Normal (Normal); Ketone-Dipstick Negative (Negative); Leukocyte Esterase-Dipstick 100 /ul (Negative); Nitrite-Dipstick Negative (Negative); Occult Blood-Urine 250 /ul (Negative); Protein-Dipstick 30 mg/dl (Negative); Urine Bilirubin Dipstick Negative (Negative); Urine Clarity Cloudy (Clear); Urine Urobilinogen Normal (Normal)
[2020-10-22 15:35] LABS: Bacteria 1+ /hpf (None Seen); Red Blood Cells-Urine > 100 SEEN /hpf (0-5); Squamous Epithelial Cells - UA 5-10 SEEN /hpf (5-10); White Blood Cells 10-25 SEEN /hpf (0-5)
[2020-10-22 15:58] VITALS: BP 123/71; PULSE 71; RESP 15; O2SAT 98
== END 2020-10-22 15:59 | disposition home or self-care (01) ==
PROVIDERS: Emergency Provider Emergency Medicine
DX: N93.9 Abnormal uterine and vaginal bleeding, unspecified (principal); E28.2 Polycystic ovarian syndrome; Z79.84 Long term (current) use of oral hypoglycemic drugs
CPT/HCPCS: 76830; 81001; 84702; 85025; 86900; 86901; 93976; 96374; 96375; 99283; A4216; J2405

== ENCOUNTER → 2021-01-07 07:47 | Outpatient (CLI) | payer OTHER, MEDICAID, SELFPAY ==
[2021-01-07 09:03] LABS: Glucose GTT- Fasting 104 mg/dL (74-106)
[2021-01-07 09:06] LABS: Glucose GTT-30 minutes 172 mg/dL (110-170)
[2021-01-07 09:46] LABS: Glucose GTT- 1 Hour 171 mg/dL (120-170)
[2021-01-07 11:38] LABS: Glucose GTT- 2 Hour 149 mg/dL (70-120)
[2021-01-07 11:40] LABS: Glucose GTT- 3 Hour 73 mg/dL (74-106)
== END ==
PROVIDERS: Referring Provider Obstetrics & Gynecology; Visit Provider Obstetrics & Gynecology
DX: E28.2 Polycystic ovarian syndrome (principal)
CPT/HCPCS: 36415; 82951; 82952

== ENCOUNTER 2021-02-22 09:43 | Emergency (ER) | payer MEDICAID, SELFPAY ==
[2021-02-22 09:45] VITALS: BP 136/87; PULSE 93; RESP 18; TEMP 35.8; O2SAT 96; BMI 46.5
--- NOTE | 2021-02-22 10:36 | EKG12_ITS ---
Test Reason : CP Blood Pressure : / mmHG Vent. Rate : 079 BPM Atrial Rate : 079 BPM P-R Int : 176 ms QRS Dur : 102 ms QT Int : 374 ms P-R-T Axes : 014 014 022 degrees QTc Int : 428 ms Normal sinus rhythm Normal ECG Confirmed by ZOYA BEJARANO, EDUARDO ([id number]), editor at large REECE MCKOY ([id number]) on 02/24/2021 11:03:45 AM Referred By: SAI Confirmed By:EDUARDO KENNY MD
--- NOTE | 2021-02-22 10:42 | ED.VIS.CHEST ---
HPI History of Present Illness Chief Complaint: Chest Pain Onset/Context/Timing Onset: Yesterday Activity at onset: gradual Timing: Continuous Quality: Positive for Heaviness Location: Substernal Current Severity: Moderate Maximum Severity: Moderate Worsened By: Breathing and Coughing Relieved By: Nothing Associated Symptoms: Positive for Nausea (gone since last week), Dyspnea (mild, like I can't take a deep breath), Cough and Fever; Negative for Diaphoresis, Lightheadedness, Acid Reflux and Palpitations Narrative Narrative: Patient has had upper respiratory tract infection symptoms for 1 week. 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 She has had several rapid test that were negative since starting to get sick. She is unvaccinated and has never had Covid. She has PCOS history. She states she no longer is having fever, nausea, vomiting, diarrhea. She still has significant cough that feels like it is down her chest. Occasional fevers. No myalgias. Occasional headache. She has had chest symptoms including heaviness that feels like it hurts to take a deep breath since yesterday. PE Risk Factors: Negative for Recent Travel/Surgery, Recent Immobilization, Prior DVT or PE, Cancer and OCP + Smoking + >/=35 PFSH PFSH Medical History PCOS (polycystic ovarian syndrome) Physical exam, pre-employment Home Medications metformin 1,000 mg PO BID 10/22/20 [History Last Taken Unknown] valacyclovir 500 mg PO DAILY 10/22/20 [History Last Taken Unknown] Allergy/AdvReac Type Severity Reaction Status Date / Time No Known Allergies Allergy Verified 02/22/21 09:43 Social History Smoking Status: Never smoker ROS ROS ED Constitutional Constitutional ED: Reports chills, fatigue, fever(s), headache(s) and malaise; Denies body ache(s) Eyes Eyes: Denies change in vision or diplopia ENT ENT ED: Denies rhinorrhea or sore throat Cardiovascular Cardiovascular: Reports as per HPI and chest pain; Denies palpitations Respiratory/Chest Respiratory/Chest: Reports cough and dyspnea; Denies dyspnea on exertion Gastrointestinal Gastrointestinal: Reports diarrhea, nausea and vomiting; Denies abdominal pain Genitourinary Genitourinary ED: Denies dysuria or hematuria Musculoskeletal Musculoskeletal: Denies back pain or neck pain Integumentary Denies abscess or rash Neurologic Neurologic: Reports headache(s); Denies paresthesias or weakness Psychiatric Psychiatric: Denies anxiety or suicidal thoughts EXAM Physical Exam Const Vital Signs: 02/22/21 09:45 02/22/21 09:56 02/22/21 12:57 Temperature 96.5 F L Temperature Source Temporal Pulse Rate 93 83 Respiratory Rate 18 14 Respiratory Effort Normal Non-Labored Blood Pressure 136/87 H 122/69 H Blood Pressure Mean 103 86 Pulse Ox 96 Oxygen Delivery Method Room Air Positive well nourished and well developed Constitutional Narrative: Well-appearing, no distress General Appearance ED: well developed and NAD HEENT Reports moist mucous membranes normocephalic and atraumatic Eyes PERRL and EOMs intact bilaterally Neck full ROM and supple Resp normal respiratory effort and clear to auscultation bilaterally Cardio regular rate, regular rhythm and no murmurs Rate: Negative for tachycardic GI non-tender and non-distended Auscultation: normoactive bowel sounds Palpation: soft Back/Spine no CVA tenderness General Back: other FROM Extremity normal to inspection and no calf tenderness General Extremety ED: Negative for edema, pulses abnormal or tenderness General Extremity: Negative for edema or pulses abnormal Neuro oriented x3, CN's II-XII intact bilaterally and no sensory deficits noted Sensorium / Orientation: awake and alert Motor Exam: strength 5/5 throughout Skin no rashes or lesions noted and no wounds MDM MDM MDM Narrative Medical decision making narrative: Patient's rapid Covid is negative as is her rapid influenza. Her testing is all negative with a very low white blood count of 6.6, her D-dimer is negative, her EKG and troponin are normal, so not likely that she has myocarditis. She likely is having chest discomfort that is either GI or pulmonary in etiology. At this time I think supportive care is recommended. I will offer her an outpatient Covid PCR but I do not think we need to await the results. She should discuss with her employer regarding whether she should go back to work or not, using a mask which they always do anyway since she works in a long-term. Lab Data Attestation: I reviewed the patient's lab results. Labs: Laboratory Results - last 24 hr 0102/22/21 02/22/21 10:55 10:55 10:55 WBC 6.6 RBC 5.59 H Hgb 13.9 Hct 44.6 MCV 79.8 L MCH 24.9 L MCHC 31.2 L RDW Std Deviation 40.1 RDW Coeff of Danielle 13.9 Plt Count 269 MPV 12.1 H Immature Gran % (Auto) 0.300 Neut % (Auto) 65.0 Lymph % (Auto) 25.8 [place] % (Auto) 5.9 Eos % (Auto) 2.4 Baso % (Auto) 0.6 Absolute Neuts (auto) 4.3 Absolute Lymphs (auto) 1.70 Nucleated RBC % 0 D-Dimer Quant (PE/DVT) < 0.27 L Sodium 140 Potassium 3.8 Chloride 101 Carbon Dioxide 30.0 Anion Gap 9 BUN 11 Creatinine 0.77 Estim Creat Clear Calc 111.44 Est GFR (MDRD) Af Amer 120 Est GFR (MDRD) Non-Af 100 BUN/Creatinine Ratio 14.3 Glucose 95 Calcium 9.8 Troponin I High Sens 6 Radiography Diagnostic Testing: Clinical Impression(s) from Imaging Studies Chest X-Ray 02/22/21 11:00 IMPRESSION: Normal x-ray examination of the chest. Electronically Signed: Reynaldo Curran MD at 11:47 EST , Service support , EKG Initial EKG: Attestation: I personally reviewed and interpreted this EKG as follows: Interpretation: Sinus Rhythm (79) and No Acute Injury Pattern Comments: normal EKG. No S1Q3T3. Discharge Plan Triage Chief Complaint: Chest Pain ED Provider: Marek Benitez Dx/Rx/DC Orders Clinical Impression: Acute viral syndrome, Suspected 2019-nCoV infection Instructions: Coronavirus Disease 2019 (COVID-19): Overview, ED Viral Syndrome (Adult) Prescriptions: No Action valacyclovir 500 mg tablet 500 mg PO DAILY RF: 0 metformin 500 mg tablet extended release 24 hr 1,000 mg PO BID RF: 0 Primary Care Provider: Care Physician,No Primary Referrals: Luis Cross DO [STAFF PHYSICIAN] - 3-5 Days if not improving Care Physician,No Primary [Primary Care Provider] - Disposition Disposition: Home, Self Care
--- NOTE | 2021-02-22 11:00 | RAD_ITS ---
STUDY: X-RAY CHEST REASON FOR EXAM: Female, 20 years old. Cough chest pain sob TECHNIQUE: Single AP portable view of the chest. COMPARISON: None. FINDINGS: EKG electrodes are seen. The lungs are clear and expanded. Scattered calcified granulomas. There is no demonstrated pleural abnormality. Normal size heart. Normal mediastinum and suman. Normal visualized pulmonary arteries. Normal visualized aortic arch and descending thoracic aorta. Normal visualized thoracic spine. Normal visualized ribs, clavicles, and shoulders. There is no demonstrated abnormality of the visualized soft tissue structures of the upper abdomen. RAD/Chest 1 View (Portable) IMPRESSION: Normal x-ray examination of the chest. Electronically Signed: Reynaldo Curran MD at 11:47 EST , Service support ,
[2021-02-22 11:09] LABS: Absolute Neutrophil Count 4.3 X10^3/uL (2.0-7.7); Basophil# 0.04 X10^3/uL; Basophil% 0.6 % (0-1); Eosinophil# 0.16 X10^3/uL; Eosinophils% 2.4 % (0-5); Hematocrit 44.6 % (37-47); Hemoglobin 13.9 g/dL (12.0-15.0); Lymphocyte % 25.8 % (19-41); Mean Corp Hgb Conc 31.2 g/dL (32-36); Mean Corpuscular Hgb 24.9 pg (27.0-32.0); Mean Corpuscular Volume 79.8 fL (81-99); Mean Platelet Vol. 12.1 fl (6.2-12.0); Monocyte# 0.39 X10^3/uL; Monocyte% 5.9 % (0-10); NRBC Flagged by Analyzer 0 % (0-5); Neutrophil # 4.29 X10^3/uL (2.7-7.7); Platelet Count 269 K/mm3 (150-450); RBC Distribution Width CV 13.9 % (11.6-14.6); RBC Distribution Width SD 40.1 fl (35.1-43.9); Red Blood Count 5.59 M/mm3 (4.2-5.4); White Blood Count 6.6 K/mm3 (4.4-11.0)
[2021-02-22 11:28] LABS: Anion Gap 9 (5-15); BUN 11 mg/dL (7-18); BUN/Creat Ratio 14.3 RATIO (10-20); Calcium,Total 9.8 mg/dL (8.5-10.1); Chloride 101 mmol/L (98-107); Creatinine, Serum 0.77 mg/dL (0.55-1.02); EST Glomerular Filtration Rate 100 mL/min (>60); Est Glom Filt Rate - Afr Amer 120 mL/min (>60); Estimated Creatinine Clearance 111.44 ml/min; Glucose 95 mg/dL (74-106); Potassium 3.8 mmol/L (3.5-5.1); Sodium Level 140 mmol/L (136-145); Troponin-I HS 6 pg/mL (3.0-54.0)
--- NOTE | 2021-02-22 11:42 | CM.ED ---
SW Note Referral Source: Case Find Referral Reason: NO PCP SW met with patient and she confirmed she has no PCP. Patient was provided with Healthcare Provider Directory from [facility]. No other SW needs voiced at this time. Plan: Provided with PCP resources Linnea TOMLINSON
[2021-02-22 12:57] VITALS: BP 122/69; PULSE 83; RESP 14
[2021-02-22 13:29] LABS: D-Dimer Quantitative (DVT/PE) < 0.27 FEU/ug/m (0.27-0.49)
[2021-02-22 15:11] VITALS: BP 123/78; PULSE 79; O2SAT 98
== END 2021-02-22 15:11 | disposition home or self-care (01) ==
PROVIDERS: Emergency Provider Emergency Medicine; Visit Provider Emergency Medicine
DX: B34.9 Viral infection, unspecified (principal); R07.89 Other chest pain; Z20.822 Contact with and (suspected) exposure to COVID-19
CPT/HCPCS: U0003; 71045; 80048; 84484; 85025; 85379; 87426; 87635; 87804; 93005; 99283; J7030; U0005

== ENCOUNTER 2021-05-30 14:16 | Outpatient (CLI) | payer MEDICAID, SELFPAY ==
[2021-05-30 15:38] LABS: Progesterone Level 11.73 ng/mL (See Comment)
== END 2021-05-30 23:59 | disposition home or self-care (01) ==
LOC: WOBLAB 14:17
PROVIDERS: Visit Provider Obstetrics & Gynecology
DX: N97.0 Female infertility associated with anovulation (principal)
CPT/HCPCS: 36415; 84144

== ENCOUNTER → 2021-06-28 | Outpatient (CLI) | payer MEDICAID, SELFPAY ==
[2021-06-28 15:43] LABS: Progesterone Level 17.58 ng/mL (See Comment)
== END | disposition home or self-care (01) ==
PROVIDERS: Visit Provider Obstetrics & Gynecology
DX: N97.0 Female infertility associated with anovulation (principal)
CPT/HCPCS: 36415; 84144

== ENCOUNTER → 2021-06-30 | Outpatient (CLI) | payer MEDICAID, SELFPAY ==
[2021-06-30 16:50] LABS: hCG Titer Quant., Serum 33 mIU/mL (1-3)
== END | disposition home or self-care (01) ==
LOC: WOBLAB 15:48
PROVIDERS: Visit Provider Student in an Organized Health Care Education/Training Program
DX: N91.2 Amenorrhea, unspecified (principal)
CPT/HCPCS: 36415; 84702

== ENCOUNTER → 2021-07-02 | Outpatient (CLI) | payer MEDICAID, SELFPAY ==
[2021-07-02 10:22] LABS: hCG Titer Quant., Serum 79 mIU/mL (1-3)
== END | disposition home or self-care (01) ==
LOC: LAB 08:58
PROVIDERS: Referring Provider Obstetrics & Gynecology; Visit Provider Obstetrics & Gynecology
DX: N91.2 Amenorrhea, unspecified (principal)
CPT/HCPCS: 36415; 84702

== ENCOUNTER → 2021-08-23 | Outpatient (CLI) | payer MEDICAID, SELFPAY ==
[2021-08-23 17:59] LABS: Absolute Lymphocyte Count 1.47 X10^3/uL (0.83-4.51); Absolute Neutrophil Count 4.4 X10^3/uL (2.0-7.7); Basophil# 0.01 X10^3/uL; Basophil% 0.2 % (0-1); Eosinophil# 0.06 X10^3/uL; Eosinophils% 0.9 % (0-5); Hematocrit 39.2 % (37-47); Hemoglobin 12.7 g/dL (12.0-15.0); Lymphocyte # 1.47 X10^3/ul (0.83-4.51); Lymphocyte % 23.2 % (19-41); Mean Corp Hgb Conc 32.4 g/dL (32-36); Mean Corpuscular Hgb 26.4 pg (27.0-32.0); Mean Corpuscular Volume 81.5 fL (81-99); Mean Platelet Vol. 12.5 fl (6.2-12.0); Monocyte# 0.37 X10^3/uL; Monocyte% 5.8 % (0-10); NRBC Flagged by Analyzer 0 % (0-5); Neutrophil % 69.4 % (47-70); Platelet Count 247 K/mm3 (150-450); RBC Distribution Width CV 13.7 % (11.6-14.6); RBC Distribution Width SD 39.9 fl (35.1-43.9); Red Blood Count 4.81 M/mm3 (4.2-5.4); White Blood Count 6.3 K/mm3 (4.4-11.0)
[2021-08-23 18:35] LABS: HIV - WCH Non-Reactive (Nonreactive); Hepatitis B Surface Antigen Non-Reactive (Nonreactive); Hepatitis C Antibody Non-Reactive (Nonreactive); Rubella IgG Reactive (Nonreactive); Syphilis Antibodies Non-reactive
[2021-08-25 22:07] LABS: Chlamydia By Nucleic Acid AMP Negative (Negative)
[2021-08-25 22:23] LABS: Gonococcus By Nucleic Acid AMP Negative (Negative)
== END | disposition home or self-care (01) ==
LOC: WOBLAB 15:40
PROVIDERS: Visit Provider Student in an Organized Health Care Education/Training Program
DX: Z34.81 Encounter for supervision of other normal pregnancy, first trimester (principal); Z11.3 Encounter for screening for infections with a predominantly sexual mode of transmission
CPT/HCPCS: 36415; 85025; 86703; 86762; 86780; 86803; 87086; 87088; 87340; 87491; 87591

== ENCOUNTER → 2021-09-13 | Outpatient (CLI) | payer MEDICAID, SELFPAY ==
[2021-09-13 15:33] LABS: Glucose Challenge Gest 1H 50g 102 mg/dL (70-140)
== END | disposition home or self-care (01) ==
PROVIDERS: Visit Provider Student in an Organized Health Care Education/Training Program
DX: Z34.82 Encounter for supervision of other normal pregnancy, second trimester (principal)
CPT/HCPCS: 36415; 82950

== ENCOUNTER 2021-11-26 17:10 | Outpatient (CLI) | payer MEDICAID, SELFPAY ==
[2021-11-26 17:25] VITALS: TEMP 36.8
[2021-11-26 17:26] VITALS: BP 118/64; PULSE 90
[2021-11-26 17:43] VITALS: BMI 43.9
[2021-11-26 18:24] LABS: Color, Urine Yellow (Yellow); Glucose, Dipstick Normal (Normal); Leukocyte Esterase-Dipstick 500 /ul (Negative); Nitrite-Dipstick Negative (Negative); Occult Blood-Urine 50 /ul (Negative); Protein-Dipstick 15 mg/dl (Negative); Specific Gravity, Urine 1.015 (1.002-1.030); Urine Bilirubin Dipstick Negative (Negative); Urine Clarity Cloudy (Clear); Urine Urobilinogen 1 mg/dl (Normal); Urine pH 6.5 (5.0 - 8.0)
[2021-11-26 18:37] LABS: Ketone-Dipstick 150 mg/dl (Negative)
--- NOTE | 2021-11-27 05:12 | PCM.PN.OB ---
Subjective Subjective Patient at 24/5w with di/di twins presenting with pelvic pressure and spotting. Possible low lying placenta on last ultrasound at 22w. Had spotting around that time, resolved and then started again Sunday night. Spotting light with wiping. Pelvic pressure when standing. Babies moving. Reports back pain. Objective Data Objective Data Vital Signs: Vital Signs Temp Pulse BP 98.3 F 90 118/64 11/26/21 17:25 11/26/21 17:26 11/26/21 17:26 Weight: 127.3 kg Body Mass Index (BMI) 43.9 Lab / Micro Data Attestation: I reviewed the patient's lab results. Labs: Laboratory Results - last 24 hr 11/26/21 18:00: Urine Color Yellow, Urine Clarity Cloudy, Urine pH 6.5, Ur Specific [place] 1.015, Urine Protein 15 H, Urine Glucose (UA) Normal, Urine Ketones 150 A*, Urine Occult Blood 50 H, Urine Nitrite Negative, Urine Bilirubin Negative, Urine Urobilinogen 1 H, Ur Leukocyte Esterase 500 H Physical Exam Const alert, oriented x3 and no apparent distress HEENT normocephalic Resp normal respiratory effort GI soft to palpation, non-tender and non-distended Inspection: gravid Narrative: SSE: no blood in vaginal vault, no blood on cervix,no active bleeding. Cervix appears closed and thick on visual inspection. Small area that appears irritated at 4 o'clock position. Cervix palpated long on exam posteriorly to cervix. Extremity no pedal edema Psych mental status grossly normal and affect normal Assessment & Plan (1) Vaginal bleeding: PLAN: Plan 24/5w twin gestation with spotting and pelvic pressure. Possible UTI on UA, urine cx sent. Will treat empirically. Increase PO water hydration. No bleeding on exam. Cervix closed. BSUS completed with baby A and baby B both moving, HRs 140-150s. Subjectively normal fluid. No contractions palpated, none on toco. Patient to increase hydration, rest at home. Will follow up this week in office. Likely pressure from 24w twin gestation. Spotting secondary to cervical irritation vs low lying placenta. To call or return for increased pelvic pressure, bleeding,regular contractions, decreased FM. All questions answered. Patient feels comfortable home going.
== END 2021-11-26 19:05 | disposition home or self-care (01) ==
LOC: WPOUT 17:16 → WP 17:17
PROVIDERS: Visit Provider Student in an Organized Health Care Education/Training Program
DX: O26.852 Spotting complicating pregnancy, second trimester (principal); O26.892 Other specified pregnancy related conditions, second trimester; R10.2 Pelvic and perineal pain; Z3A.24 24 weeks gestation of pregnancy
CPT/HCPCS: 59050; 76815; 81002; 87086; 87088; 99218; G0378

== ENCOUNTER → 2021-11-28 | Outpatient (CLI) | payer MEDICAID, SELFPAY ==
[2021-11-28 14:26] LABS: Absolute Lymphocyte Count 1.13 X10^3/uL (0.83-4.51); Absolute Neutrophil Count 4.2 X10^3/uL (2.0-7.7); Basophil# 0.01 X10^3/uL; Basophil% 0.2 % (0-1); Eosinophil# 0.05 X10^3/uL; Eosinophils% 0.9 % (0-5); Hematocrit 33.6 % (37-47); Hemoglobin 10.6 g/dL (12.0-15.0); Lymphocyte # 1.13 X10^3/ul (0.83-4.51); Lymphocyte % 19.7 % (19-41); Mean Corp Hgb Conc 31.5 g/dL (32-36); Mean Corpuscular Hgb 25.5 pg (27.0-32.0); Mean Corpuscular Volume 80.8 fL (81-99); Monocyte# 0.36 X10^3/uL; Monocyte% 6.3 % (0-10); NRBC Flagged by Analyzer 0 % (0-5); Neutrophil # 4.17 X10^3/uL (2.7-7.7); Neutrophil % 72.7 % (47-70); Platelet Count 214 K/mm3 (150-450); RBC Distribution Width CV 14.1 % (11.6-14.6); Red Blood Count 4.16 M/mm3 (4.2-5.4); White Blood Count 5.7 K/mm3 (4.4-11.0)
[2021-11-28 14:30] LABS: Glucose Challenge Gest 1H 50g 140 mg/dL (70-140)
== END | disposition home or self-care (01) ==
LOC: WOBLAB 13:29
PROVIDERS: Visit Provider Student in an Organized Health Care Education/Training Program
DX: Z34.82 Encounter for supervision of other normal pregnancy, second trimester (principal)
CPT/HCPCS: 36415; 82950; 85025

== ENCOUNTER → 2021-12-02 | Outpatient (CLI) | payer MEDICAID, SELFPAY ==
[2021-12-02 09:44] LABS: Glucose GTT-Gestation. Fasting 93 mg/dL (<105)
[2021-12-02 11:06] LABS: Glucose GTT-Gestational 1 Hr 144 mg/dL (<190)
[2021-12-02 11:40] LABS: Glucose GTT-Gestational 2 Hr 106 mg/dL (<165)
[2021-12-02 12:34] LABS: Glucose GTT-Gestational 3 Hr 85 L (<145)
== END | disposition home or self-care (01) ==
LOC: WOBLAB 08:52
PROVIDERS: Visit Provider Student in an Organized Health Care Education/Training Program
DX: O99.810 Abnormal glucose complicating pregnancy (principal); Z3A.00 Weeks of gestation of pregnancy not specified
CPT/HCPCS: 36415; 82951; 82952

== ENCOUNTER 2022-01-17 14:58 | Outpatient (CLI) | payer MEDICAID, SELFPAY ==
[2022-01-17 15:17] LABS: Absolute Lymphocyte Count 1.11 X10^3/uL (0.83-4.51); Absolute Neutrophil Count 3.1 X10^3/uL (2.0-7.7); Basophil# 0.02 X10^3/uL; Basophil% 0.4 % (0-1); Eosinophil# 0.02 X10^3/uL; Eosinophils% 0.4 % (0-5); Hematocrit 33.3 % (37-47); Hemoglobin 10.7 g/dL (12.0-15.0); Lymphocyte # 1.11 X10^3/ul (0.83-4.51); Lymphocyte % 24.3 % (19-41); Mean Corp Hgb Conc 32.1 g/dL (32-36); Mean Corpuscular Hgb 24.9 pg (27.0-32.0); Mean Corpuscular Volume 77.6 fL (81-99); Mean Platelet Vol. 11.4 fl (6.2-12.0); Monocyte# 0.31 X10^3/uL; Monocyte% 6.8 % (0-10); NRBC Flagged by Analyzer 0 % (0-5); Neutrophil # 3.08 X10^3/uL (2.7-7.7); Neutrophil % 67.7 % (47-70); Platelet Count 207 K/mm3 (150-450); RBC Distribution Width CV 14.2 % (11.6-14.6); RBC Distribution Width SD 39.5 fl (35.1-43.9); Red Blood Count 4.29 M/mm3 (4.2-5.4); White Blood Count 4.6 K/mm3 (4.4-11.0)
[2022-01-17 15:25] VITALS: BMI 47.3
[2022-01-17 15:57] LABS: Protein, Urine (Random) 67.9 mg/dL (<11.9); Protein:Creat Ratio 239 mg/g CRE (0-200)
[2022-01-17 15:59] LABS: ALB/GLOB Ratio 0.5 RATIO (0.9-2.4); AST(SGOT) 20 U/L (15-37); Alanine Aminotransfer ALT/SGPT 13 U/L (13-56); Albumin, Serum 2.2 g/dL (3.2-5.0); Alkaline Phosphatase 138 U/L (45-117); Anion Gap 10 (5-15); BUN 6 mg/dL (7-18); BUN/Creat Ratio 8.2 RATIO (10-20); Calcium,Total 8.5 mg/dL (8.5-10.1); Chloride 103 mmol/L (98-107); Creatinine, Serum 0.74 mg/dL (0.55-1.02); EST Glomerular Filtration Rate 104 mL/min (>60); Est Glom Filt Rate - Afr Amer 126 mL/min (>60); Estimated Creatinine Clearance 114.98 ml/min; Globulin 4.4 g/dL (2.2-4.2); Glucose 83 mg/dL (74-106); LDH 170 U/L (84-246); Potassium 3.7 mmol/L (3.5-5.1); Protein, Total 6.6 g/dL (6.4-8.2); Sodium Level 137 mmol/L (136-145)
[2022-01-17] MEDS: Lactated Ringers 1,000 ML 999 ML IV (16:05)
[2022-01-17] MEDS: Acetaminophen 500 MG Tablet 1000 MG PO (16:06)
[2022-01-17 16:10] VITALS: TEMP 36.9
[2022-01-17 16:11] VITALS: BP 118/76; PULSE 69; PULSE 71; O2SAT 96
--- NOTE | 2022-01-27 08:09 | PCM.PN.BLA ---
Progress Note Patient from office for BPP 6 out of 8 for baby A. Plan for NST. 32/1 weeks. Patient also feeling slightly ill while in office. Has poor oral hydration. CBC, CMP, urine pr/cr labs were sent in office, normal. IV fluid hydration with 1 L LR bolus given, improvement with symptoms. Supportive care reviewed with patient while in office. NST was reactive FHR Baby A: 140/mod briana/+accel/no decel FHR Baby B: 145/mod briana/+accel/no decel toco:quiet Discharge home with routine follow-up.
== END 2022-01-17 17:17 | disposition home or self-care (01) ==
LOC: WOBLAB 14:59 → WPOUT 15:21 → WP 15:22
PROVIDERS: Visit Provider Student in an Organized Health Care Education/Training Program
DX: O30.003 Twin pregnancy, unspecified number of placenta and unspecified number of amniotic sacs, third trimester (principal); Z3A.32 32 weeks gestation of pregnancy
CPT/HCPCS: 36415; 59025; 59050; 80053; 82570; 83615; 84156; 85025; 87086; 87088; 99218; J7120; G0378

== ENCOUNTER → 2022-01-24 | Outpatient (CLI) | payer MEDICAID, SELFPAY ==
[2022-01-24 17:09] LABS: Absolute Lymphocyte Count 1.07 X10^3/uL (0.83-4.51); Absolute Neutrophil Count 2.6 X10^3/uL (2.0-7.7); Basophil# 0.02 X10^3/uL; Basophil% 0.5 % (0-1); Eosinophil# 0.02 X10^3/uL; Eosinophils% 0.5 % (0-5); Hematocrit 33.2 % (37-47); Hemoglobin 10.5 g/dL (12.0-15.0); Lymphocyte # 1.07 X10^3/ul (0.83-4.51); Lymphocyte % 26.6 % (19-41); Mean Corp Hgb Conc 31.6 g/dL (32-36); Mean Corpuscular Hgb 24.4 pg (27.0-32.0); Mean Platelet Vol. 11.4 fl (6.2-12.0); Monocyte# 0.28 X10^3/uL; Monocyte% 6.9 % (0-10); NRBC Flagged by Analyzer 0 % (0-5); Neutrophil # 2.63 X10^3/uL (2.7-7.7); Neutrophil % 65.3 % (47-70); Platelet Count 191 K/mm3 (150-450); RBC Distribution Width CV 13.7 % (11.6-14.6); RBC Distribution Width SD 38.4 fl (35.1-43.9); Red Blood Count 4.31 M/mm3 (4.2-5.4)
[2022-01-24 17:44] LABS: ALB/GLOB Ratio 0.5 RATIO (0.9-2.4); AST(SGOT) 25 U/L (15-37); Alanine Aminotransfer ALT/SGPT 17 U/L (13-56); Albumin, Serum 2.2 g/dL (3.2-5.0); Alkaline Phosphatase 155 U/L (45-117); Anion Gap 9 (5-15); BUN 7 mg/dL (7-18); BUN/Creat Ratio 8.9 RATIO (10-20); Calcium,Total 8.8 mg/dL (8.5-10.1); Chloride 107 mmol/L (98-107); Creatinine, Serum 0.79 mg/dL (0.55-1.02); EST Glomerular Filtration Rate 96 mL/min (>60); Est Glom Filt Rate - Afr Amer 116 mL/min (>60); Globulin 4.4 g/dL (2.2-4.2); Glucose 84 mg/dL (74-106); LDH 180 U/L (84-246); Potassium 3.8 mmol/L (3.5-5.1); Protein, Total 6.6 g/dL (6.4-8.2); Sodium Level 140 mmol/L (136-145)
[2022-01-24 18:23] LABS: Protein, Urine (Random) 101.7 mg/dL (<11.9); Protein:Creat Ratio 267 mg/g CRE (0-200)
== END | disposition home or self-care (01) ==
LOC: WOBLAB 16:16
PROVIDERS: Visit Provider Student in an Organized Health Care Education/Training Program
DX: O30.043 Twin pregnancy, dichorionic/diamniotic, third trimester (principal); Z3A.00 Weeks of gestation of pregnancy not specified
CPT/HCPCS: 36415; 80053; 82570; 83615; 84156; 85025; 87086; 87088

== ENCOUNTER 2022-01-27 22:20 | Outpatient (CLI) | payer MEDICAID, SELFPAY ==
[2022-01-27 22:42] VITALS: BP 142/70; PULSE 66; TEMP 36.6
[2022-01-27 22:44] LABS: Bacteria 0 SEEN /hpf (None Seen); Mucous, Urine 0 SEEN /hpf (<or=2+)
[2022-01-27 22:45] VITALS: BMI 49.1
[2022-01-27 22:46] LABS: Color, Urine Yellow (Yellow); Glucose, Dipstick Normal (Normal); Ketone-Dipstick 5 mg/dl (Negative); Leukocyte Esterase-Dipstick 500 /ul (Negative); Nitrite-Dipstick Negative (Negative); Occult Blood-Urine 10 /ul (Negative); Protein-Dipstick 100 mg/dl (Negative); Urine Bilirubin Dipstick Negative (Negative); Urine Clarity Clear (Clear); Urine Urobilinogen 1 mg/dl (Normal)
[2022-01-27 22:47] VITALS: PULSE 76; O2SAT 97
[2022-01-27 23:00] LABS: Red Blood Cells-Urine 0-5 SEEN /hpf (0-5); Squamous Epithelial Cells - UA 5-10 SEEN /hpf (5-10); White Blood Cells 0-5 SEEN /hpf (0-5)
[2022-01-27 23:05] VITALS: BP 145/77; PULSE 69
[2022-01-27] MEDS: Lactated Ringers 1,000 ML 125 ML IV (23:55)
[2022-01-28] VITALS (8 sets, daily range): BP systolic 120–135; BP diastolic 54–79; PULSE 63–85; TEMP 36.2–36.6; O2SAT 97–98
[2022-01-28 00:06] LABS: Absolute Lymphocyte Count 1.35 X10^3/uL (0.83-4.51); Absolute Neutrophil Count 2.6 X10^3/uL (2.0-7.7); Basophil# 0.03 X10^3/uL; Basophil% 0.7 % (0-1); Eosinophil# 0.02 X10^3/uL; Eosinophils% 0.5 % (0-5); Hematocrit 31.4 % (37-47); Hemoglobin 9.8 g/dL (12.0-15.0); Lymphocyte # 1.35 X10^3/ul (0.83-4.51); Lymphocyte % 31.4 % (19-41); Mean Corp Hgb Conc 31.2 g/dL (32-36); Mean Platelet Vol. 12.9 fl (6.2-12.0); Monocyte# 0.31 X10^3/uL; Monocyte% 7.2 % (0-10); NRBC Flagged by Analyzer 0 % (0-5); Neutrophil # 2.56 X10^3/uL (2.7-7.7); Neutrophil % 59.5 % (47-70); Platelet Count 200 K/mm3 (150-450); RBC Distribution Width CV 13.5 % (11.6-14.6); Red Blood Count 4.08 M/mm3 (4.2-5.4); White Blood Count 4.3 K/mm3 (4.4-11.0)
[2022-01-28] MEDS: Betamethasone/Betamethasone 30 MG/5 ML Vial 12 MG IM (00:07)
[2022-01-28 00:24] LABS: ALB/GLOB Ratio 0.5 RATIO (0.9-2.4); AST(SGOT) 28 U/L (15-37); Alanine Aminotransfer ALT/SGPT 20 U/L (13-56); Albumin, Serum 2.2 g/dL (3.2-5.0); Alkaline Phosphatase 155 U/L (45-117); Anion Gap 8 (5-15); BUN 9 mg/dL (7-18); BUN/Creat Ratio 9.5 RATIO (10-20); Calcium,Total 9.3 mg/dL (8.5-10.1); Chloride 109 mmol/L (98-107); Creatinine, Serum 0.94 mg/dL (0.55-1.02); EST Glomerular Filtration Rate 78 mL/min (>60); Est Glom Filt Rate - Afr Amer 94 mL/min (>60); Estimated Creatinine Clearance 90.52 ml/min; Globulin 4.1 g/dL (2.2-4.2); Glucose 79 mg/dL (74-106); LDH 155 U/L (84-246); Potassium 3.7 mmol/L (3.5-5.1); Protein, Total 6.3 g/dL (6.4-8.2); Sodium Level 141 mmol/L (136-145)
[2022-01-28 00:47] LABS: Protein, Urine (Random) 140.6 mg/dL (<11.9); Protein:Creat Ratio 423 mg/g CRE (0-200)
[2022-01-28] MEDS: Acetaminophen 500 MG Tablet 1000 MG PO (03:56)
[2022-01-28] MEDS: Lactated Ringers 1,000 ML 125 ML IV (06:32)
--- NOTE | 2022-01-28 06:50 | HP.PCM.OB_ITS ---
History and Physical Date of Admission: 01/27/22 HPI: 21-year-old G2, P1 at 33/5 weeks, MARCELLE 03/13/22 by early ultrasound, admitted to observation for cramping. Patient arrived to labor and delivery for worsening back pain and cramping, patient had wiped once with quarter size amount of pink spotting on toilet paper. No further spotting after this incident at home or during admission. Denies regular contractions. Reports movement. Denies leaking of fluid. Denies headache or vision changes, chest pain or shortness of breath, nausea or vomiting, diarrhea or constipation, fevers or chills. Denies prodromal HSV symptoms. Last outbreak about 1 week ago. Typically present on labia. complicated with: Class III obesity, dichorionic diamniotic twin gestation, genital herpes on suppression, depression on zoloft. History of delivery. 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 Class III obesity 2. History of genital herpes 3. Depression Surgical history: 1. Tonsillectomy in 2013 2. Rhinoplasty for deviated septum in 2014 3. Surgery for lazy eye in 2013 Complications with anesthesia: Patient takes a long time to wake up after surgery, pseudocholinesterase deficiency Medications: 1. vitamin 2. Valtrex 3. Zoloft 50 mg Family history: Type 2 diabetes, otherwise noncontributory Allergies: No known drug allergies Social history: Denies tobacco, alcohol, drug use Review of system: Negative otherwise stated above Physical exam Vitals: Blood pressure 135/54, HR 67, Pulse ox 97% on room air, temp 97.2 ?F General: Patient was sleeping in bed, comfortable in appearance upon wakening HEENT: Normal cephalic/atraumatic, PERRLA Cardiorespiratory: No increased effort Abdomen: Soft, nontender, gravid, obese Extremities: +1 edema pedal Neurologic: Cranial nerves II through XII grossly intact, no focal deficits Musculoskeletal: Strength 5-5 throughout extremities Cervical exam: 2 cm/60/-3. SSE: Negative for HSV lesions. Panel: GBS pending HIV negative Hepatitis B/hepatitis C negative/negative Syphilis nonreactive Gonorrhea/chlamydia negative Rubella immune O+ Admission labs CBC within normal limits aside from anemia CMP within normal limits Protein creatinine ratio elevated at 423 growth at 01/10: Baby A 1869g (64.7%tile), Baby B 1793g (52.2%tile) BSUS today: cephalic/breech FHR A:120/mod briana/+accel/no decel FHR B: 135/mod briana/+accel/no decel [place]: irregular Assessment/Plan: 21-year-old G2, P1 at 33/5 weeks, admitted with contractions. ?Patient was admitted for observation over night based on reported symptoms. On admission she was dilated to 1 cm per RN. She received Celestone (as twins are at risk for delivery) at midnight and was IV fluid hydrated. She was rechecked and was found to be 2 cm over night. This morning she was re-examined and found to be 2 cm dilated. Reports pelvic pain, back pain, irregular contractions that are unchanged in regards to level of discomfort this morning. ?GBS was done. And penicillin was started for GBS prophylaxis as patient is . ?Start tocolysis with Procardia. ?Case was discussed with informix developer Dr. Aleman who also reviewed with Dr. Fernández. Per report informix developer would support possible delivery here, however it would be likely due to gestation and twins babies would be shipped to [place]. ?Bedside ultrasound was completed. Baby A and baby B were both cephalic on Sunday of this week. However today baby A is cephalic and baby B is breech. Based on this patient would elect for section if needed. ?History of HSV: Sterile speculum exam was done finding no lesions. Patient's typical location to have an outbreak is on the labia. States that her last outbreak was about a little over 1 week ago. No prodromal symptoms. Continue suppression during admission. ?Elevated blood pressures on admission. Patient had 2 elevated blood pressures 140s, preeclampsia labs were within normal limits aside from proteinuria. Blood pressures became stable in the 120s?130s systolic. We will closely monitor for persistence. At this time diagnosis for gestational proteinuria as she has not had prior elevated blood pressures throughout or this admission greater than 4 hours apart. ?Depression. Stable on Zoloft. ?Anemia, persistent. Ferritin is 7. Consider venofer. ?Reviewed plans and findings with patient and her . Discussed pediatricians report that it would be likely for babies to be transported if she were to deliver. Based on contractions and concern for labor, in the setting of Di Di twins and history of labor, decision with the patient using shared decision making was made to transport to [facility]. Dr. Willow Couch, Akhil accepting physician. Recommended Procardia, which was started now. ?Reviewed plan with bedside RN, patient and her . All questions ans wered.
[2022-01-28 07:20] LABS: Ferritin 7 ng/mL (8-252)
[2022-01-28] MEDS: NIFEdipine 10 MG Capsule 20 MG PO (08:20)
[2022-01-28 08:36] LABS: Group B Strep DNA By PCR Negative (Negative); Internal Control PASS; Probe Check PASS; Specimen Processing Control PASS
== END 2022-01-28 09:05 | disposition short-term general hospital (02) ==
LOC: WPOUT 22:24 → WP 22:25
PROVIDERS: Referring Provider Student in an Organized Health Care Education/Training Program; Visit Provider Student in an Organized Health Care Education/Training Program
DX: O30.043 Twin pregnancy, dichorionic/diamniotic, third trimester (principal); O26.853 Spotting complicating pregnancy, third trimester; Z3A.33 33 weeks gestation of pregnancy; E66.9 Obesity, unspecified; O99.343 Other mental disorders complicating pregnancy, third trimester; F32.9 Major depressive disorder, single episode, unspecified; O99.013 Anemia complicating pregnancy, third trimester; Z79.899 Other long term (current) drug therapy
CPT/HCPCS: 96360; 96361 ×7; 36415; 59025; 59050; 80053; 81001; 82570; 82728; 83615; 84156; 85025; 86850; 86900; 86901; 87081; 87086; 87088; 87653; 96372; 99218; J7120; G0378; J0702

== ENCOUNTER → 2022-02-01 | Outpatient (CLI) | payer MEDICAID, SELFPAY ==
[2022-02-01 17:01] LABS: Absolute Lymphocyte Count 1.11 X10^3/uL (0.83-4.51); Absolute Neutrophil Count 3.1 X10^3/uL (2.0-7.7); Basophil# 0.02 X10^3/uL; Basophil% 0.4 % (0-1); Eosinophil# 0.02 X10^3/uL; Eosinophils% 0.4 % (0-5); Hematocrit 30.6 % (37-47); Hemoglobin 9.8 g/dL (12.0-15.0); Lymphocyte # 1.11 X10^3/ul (0.83-4.51); Mean Corpuscular Volume 78.1 fL (81-99); Mean Platelet Vol. 12.2 fl (6.2-12.0); Monocyte# 0.34 X10^3/uL; Monocyte% 7.3 % (0-10); NRBC Flagged by Analyzer 0.4 % (0-5); Neutrophil # 3.11 X10^3/uL (2.7-7.7); Neutrophil % 67.3 % (47-70); Platelet Count 157 K/mm3 (150-450); RBC Distribution Width CV 13.9 % (11.6-14.6); RBC Distribution Width SD 38.8 fl (35.1-43.9); Red Blood Count 3.92 M/mm3 (4.2-5.4); White Blood Count 4.6 K/mm3 (4.4-11.0)
[2022-02-01 17:11] LABS: Protein, Urine (Random) 48.2 mg/dL (<11.9); Protein:Creat Ratio 658 mg/g CRE (0-200)
[2022-02-01 17:46] LABS: ALB/GLOB Ratio 0.5 RATIO (0.9-2.4); AST(SGOT) 35 U/L (15-37); Alanine Aminotransfer ALT/SGPT 35 U/L (13-56); Alkaline Phosphatase 158 U/L (45-117); Anion Gap 6 (5-15); BUN 6 mg/dL (7-18); BUN/Creat Ratio 8.6 RATIO (10-20); Calcium,Total 8.4 mg/dL (8.5-10.1); Chloride 107 mmol/L (98-107); EST Glomerular Filtration Rate 111 mL/min (>60); Est Glom Filt Rate - Afr Amer 134 mL/min (>60); Globulin 4.1 g/dL (2.2-4.2); Glucose 81 mg/dL (74-106); LDH 198 U/L (84-246); Potassium 3.8 mmol/L (3.5-5.1); Protein, Total 6.1 g/dL (6.4-8.2); Sodium Level 139 mmol/L (136-145)
== END | disposition home or self-care (01) ==
LOC: WOBLAB 16:48
PROVIDERS: Visit Provider Student in an Organized Health Care Education/Training Program
DX: O13.3 Gestational [pregnancy-induced] hypertension without significant proteinuria, third trimester (principal)
CPT/HCPCS: 83615; 84156; 82570; 85025; 87086; 87088; 36415; 80053

== ENCOUNTER 2022-02-04 18:15 | Inpatient (IN) | payer MEDICAID, SELFPAY ==
[2022-02-04] VITALS (25 sets, daily range): BP systolic 121–146; BP diastolic 58–88; PULSE 58–113; RESP 16–24; TEMP 36.2–36.8; O2SAT 92–98; BMI 49.4
[2022-02-04 16:24] LABS: ROM Internal Control Test YES-OK TO RESULT pt. (Internal QC); ROM Patient Test Negative (Negative)
[2022-02-04 17:08] LABS: Bacteria 0 SEEN /hpf (None Seen); Mucous, Urine 0 SEEN /hpf (<or=2+); Red Blood Cells-Urine 0 SEEN /hpf (0-5)
[2022-02-04 17:09] LABS: Hematocrit 32.7 % (37-47); Hemoglobin 10.2 g/dL (12.0-15.0); Mean Corp Hgb Conc 31.2 g/dL (32-36); Mean Corpuscular Hgb 24.2 pg (27.0-32.0); Mean Corpuscular Volume 77.5 fL (81-99); Mean Platelet Vol. 12.8 fl (6.2-12.0); Platelet Count 167 K/mm3 (150-450); RBC Distribution Width CV 14.6 % (11.6-14.6); RBC Distribution Width SD 39.2 fl (35.1-43.9); Red Blood Count 4.22 M/mm3 (4.2-5.4); White Blood Count 5.1 K/mm3 (4.4-11.0)
[2022-02-04 17:18] LABS: Color, Urine Yellow (Yellow); Glucose, Dipstick Normal (Normal); Ketone-Dipstick 5 mg/dl (Negative); Leukocyte Esterase-Dipstick 500 /ul (Negative); Nitrite-Dipstick Negative (Negative); Occult Blood-Urine 10 /ul (Negative); Protein-Dipstick 100 mg/dl (Negative); Urine Bilirubin Dipstick Negative (Negative); Urine Clarity Clear (Clear); Urine Urobilinogen Normal (Normal)
[2022-02-04 17:27] LABS: Protein, Urine (Random) 135.5 mg/dL (<11.9); Protein:Creat Ratio 903 mg/g CRE (0-200)
[2022-02-04 17:29] LABS: AST(SGOT) 24 U/L (15-37); Alanine Aminotransfer ALT/SGPT 26 U/L (13-56); Creatinine, Serum 0.72 mg/dL (0.55-1.02); EST Glomerular Filtration Rate 107 mL/min (>60); Est Glom Filt Rate - Afr Amer 130 mL/min (>60); Estimated Creatinine Clearance 118.17 ml/min; LDH 184 U/L (84-246); Uric Acid 7.5 mg/dL (2.6-6.0)
[2022-02-04 17:30] LABS: Squamous Epithelial Cells - UA 50-100 SEEN /hpf (5-10); White Blood Cells 25-50 SEEN /hpf (0-5)
--- NOTE | 2022-02-04 18:27 | HP.PCM.OB_ITS ---
History and Physical Date of Admission: 02/04/22 Chief complaint: Headache History present illness: 21-year-old G2, P1 at 34 weeks and 2 days with MARCELLE 03/13/2022 arrives with headache no visual changes unresolved with Tylenol. Denies chest pain, shortness of breath, nausea vomit, right upper quadrant pain. Patient states good movements. is complicated by Di Di twins, previously transported for contractions on 01/28 received [facility] on 1210 and 1211 in [facility], history of HSV last outbreak third trimester resolved Obstetric history: G1: 36-week 7 pounds 10 ounces male G2: Current Past medical history: HSV, anxiety depression Medications: Valtrex, sertraline, vitamin Allergies: No known drug allergies Past surgical history: Left eye, tonsillectomy, rhinoplasty Family history: Denies history DVT or PE Social history: Denies smoking, alcohol use, drug use Review of systems: Besides above pertinent positives a full review of systems was performed and found to be negative Physical exam: Vitals: Blood pressure 135/85 pulse 90 General: Normal-appearing no acute distress HEENT: Normocephalic/atraumatic no cervical of adenopathy Cardiac/respiratory: No use accessory muscles, nonlabored breathing Abdomen: Soft, nontender, gravid Extremities: No peripheral edema normal peripheral pulses Psych: Normal affect, demeanor nonpressured speech Bedside ultrasound: Baby A cephalic, baby B oblique head maternal right Labs: Low blood cell count 5.1 hemoglobin 10.2 hematocrit 32.7% platelets 167 creatinine 0.72 AST 24 ALT 26 LDH 184. ROM negative Assessment plan: 21-year-old G2, P1 at 34 weeks and 2 days already diagnosed with preeclampsia without severe features. HELLP labs wnl, blood pressures nonsevere range. But patient with unrelenting headache since yesterday unresolved with multiple doses of Tylenol. No visual changes. Based on these findings now diagnosed with preeclampsia with severe features based on headache unresolved. Educated patient on diagnosis severe preeclampsia, discussed treatment with magnesium. Discussed need for delivery. Discussed delivery options risk benefits alternatives, answer questions about HSV and vaginal deliveries, discussed risk for twin deliveries vaginal versus , discussed risk with babies. Patient states understanding and elects for primary section. For magnesium 6 g bolus at 2 g an hour. Patient had Celestone on 01/28 and 01/29. Discussed case with accounts payable or receivable clerk. For now, 3 g Ancef and 500 mg of azithromycin
[2022-02-04] MEDS: Magnesium Sulfate 4gm/100mL 4 GM/100 ML IV.SOLN. IV (18:36)
[2022-02-04] MEDS: Lactated Ringers 1,000 ML 999 ML IV (18:36)
[2022-02-04] MEDS: Sodium Citrate/Citric Acid 30 ML UDC PO (18:54)
[2022-02-04] MEDS: Acetaminophen 500 MG Tablet 1000 MG PO (18:54)
[2022-02-04] MEDS: Magnesium Sulfate 4gm/100mL 2 GM/50 ML IV.SOLN. IV (19:00)
[2022-02-04] MEDS: Magnesium Sulfate 20 GM/500 ML BAG IV (19:10)
--- NOTE | 2022-02-04 19:56 | OP.PCM_ITS ---
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 Baby B female in vertex position Apgars 8/9. Normal uterus, tubes, and ovaries. Consent: Patient arrived with unresolved headache diagnosed with preeclampsia with severe features patient elects for primary section Via Pfannenstiel incision. Patient understands risk of the procedure include but are not limited to visceral or vascular injury, prolonged hospitalization, blood loss and need for transfusion, reoperation. Patient state understanding and wished to proceed. All questions were answered and consent was signed. Procedure: Patient was brought back to the OR where spinal anesthesia was found to be adequate. 3 g of Ancef and 500 mg of azithromycin were given for infection prophylaxis. Patient was prepared and draped in a supine position with leftward tilt. A Pfannenstiel incision was made at the skin with a scalpel. The incision was carried down to the fascia with a scalpel. The fascia was excised and extended laterally. Inferior aspect of the fascia was grasped with a clamp and the underlying rectus muscle was dissected off sharply with Asif scissors. In a similar fashion the superior aspect of the fascia was grasped with a clamp and underlying rectus muscle was dissected off sharply. Rectus muscle was dissected at the midline down to the level of the pubic symphysis. Preperitoneal fatty tissue was noted and peritoneum was entered bluntly. Peritoneum was extended superiorly and inferiorly with good visualization of the bladder. Bladder blade was inserted and vesicouterine peritoneum was identified. Low transverse hysterotomy was made. Hand was placed into the incision, bladder blade was removed and gentle fundal pressure was applied in order to deliver baby A, head and shoulders were delivered with ease. Cord was clamped and cut, baby A was handed off to nursing. Allis clamp was used to rupture membranes of baby B. Hand was placed into the hysterotomy incision and gentle fundal pressure was applied in order to deliver baby B, head and shoulder s were delivered with ease. Cord was clamped and cut. Baby is handed off to nursing. Both placentas were delivered via manual extraction. Uterus was exteriorized and wiped out with dry laparotomy sponge in order to remove remaining placental membranes. Uterus was closed in a continuous running fashion. [id number] sutures were used for hemostasis. Good hemostasis was noted. Uterus was placed back into the abdominal cavity and the incision was reinspected, good hemostasis was noted. Fascia was closed in a continuous running fashion with PDS suture. Subcutaneous irrigation was performed and good hemostasis was noted. Skin was closed in a subcuticular fashion. All counts were correct x2. Patient tolerated procedure well and was brought to recovery in stable condition.
[2022-02-04] MEDS: Oxytocin 15 Units/NS 250ml 15 UNITS/250 ML IV.SOLN 83 UNITS IV (20:20)
[2022-02-04] MEDS: Ketorolac 30 MG/ML Syringe IV (21:10)
[2022-02-05] VITALS (38 sets, daily range): BP systolic 114–141; BP diastolic 63–98; PULSE 72–106; RESP 16–20; TEMP 35.8–37.3; O2SAT 89–100
[2022-02-05] MEDS: Acetaminophen 500 MG Tablet 1000 MG PO ×4 (01:28→18:40)
[2022-02-05] MEDS: Cefazolin 1 GM/50 ML BAG IV ×2 (03:25→11:24)
[2022-02-05] MEDS: Ketorolac 30 MG/ML Syringe IV ×3 (03:27→14:32)
[2022-02-05] MEDS: Magnesium Sulfate 20 GM/500 ML BAG IV ×2 (05:25→14:51)
[2022-02-05 05:35] LABS: Hematocrit 29.8 % (37-47); Hemoglobin 9.1 g/dL (12.0-15.0); Mean Corp Hgb Conc 30.5 g/dL (32-36); Mean Corpuscular Hgb 23.8 pg (27.0-32.0); Mean Corpuscular Volume 77.8 fL (81-99); Mean Platelet Vol. 12.7 fl (6.2-12.0); Platelet Count 149 K/mm3 (150-450); RBC Distribution Width CV 14.7 % (11.6-14.6); RBC Distribution Width SD 39.8 fl (35.1-43.9); Red Blood Count 3.83 M/mm3 (4.2-5.4); White Blood Count 6.3 K/mm3 (4.4-11.0)
[2022-02-05 06:10] LABS: ALB/GLOB Ratio 0.5 RATIO (0.9-2.4); AST(SGOT) 29 U/L (15-37); Alanine Aminotransfer ALT/SGPT 21 U/L (13-56); Albumin, Serum 1.8 g/dL (3.2-5.0); Alkaline Phosphatase 145 U/L (45-117); Anion Gap 8 (5-15); BUN 6 mg/dL (7-18); BUN/Creat Ratio 7.8 RATIO (10-20); Calcium,Total 8.1 mg/dL (8.5-10.1); Chloride 106 mmol/L (98-107); Creatinine, Serum 0.76 mg/dL (0.55-1.02); EST Glomerular Filtration Rate 99 mL/min (>60); Est Glom Filt Rate - Afr Amer 120 mL/min (>60); Estimated Creatinine Clearance 111.95 ml/min; Globulin 3.6 g/dL (2.2-4.2); Glucose 105 mg/dL (74-106); LDH 309 U/L (84-246); Magnesium 5.4 mg/dL (1.6-2.6); Potassium 3.6 mmol/L (3.5-5.1); Protein, Total 5.4 g/dL (6.4-8.2); Sodium Level 138 mmol/L (136-145)
[2022-02-05] MEDS: oxyCODONE 5 MG Tablet PO ×2 (07:03→22:21)
[2022-02-05] MEDS: Enoxaparin 40 MG/0.4 ML Syringe SC (09:15)
--- NOTE | 2022-02-05 09:43 | PN.OBGYN_ITS ---
Subjective Subjective Headache improving. Pain well controlled. Denies visual changes, chest pain, shortness of breath, nausea vomiting, right upper quadrant pain Objective Data Objective Data Vital Signs: Vital Signs Temp Pulse Resp BP Pulse Ox O2 Del Method 97.7 F L 97 16 129/77 H 93 Room Air 02/05/22 09:00 02/05/22 09:21 02/05/22 09:00 02/05/22 09:21 02/05/22 09:20 02/05/22 09:00 Oxygen Delivery Method Room Air Weight: 316 lb Body Mass Index (BMI) 49.4 Intake & Output: Intake and Output for Last 24 Hours 02/03/22 02/04/22 02/05/22 23:59 23:59 23:59 Intake Total 1650.8 / 1650.8 1500 / 1500 Output Total 700 / 700 575 / 575 Balance 950.8 / 950.8 925 / 925 Lab / Micro Data Result Diagrams: 02/05/22 05:28 02/05/22 05:28 Labs: Laboratory Results - last 24 hr 02/04/22 15:54: Vag Amniotic Fld Detect Negative 02/04/22 16:59: WBC 5.1, RBC 4.22, Hgb 10.2 L, Hct 32.7 L, MCV 77.5 L, MCH 24.2 L, MCHC 31.2 L, RDW Std Deviation 39.2, RDW Coeff of Danielle 14.6, Plt Count 167, MPV 12.8 H 02/04/22 16:59: U Random Total Protein 135.5 H, Urine Creatinine 150.00, Protein/Creatinin Ratio 903 H 02/04/22 16:59: Creatinine 0.72, Estim Creat Clear Calc 118.17, Est GFR (MDRD) Af Amer 130, Est GFR (MDRD) Non-Af 107, Uric Acid 7.5 H, AST 24, ALT 26, Lactate Dehydrogenase 184 02/04/22 16:59: Urine Color Yellow, Urine Clarity Clear, Urine pH 7.0, Ur Specific Wainwright 1.010, Urine Protein 100 H, Urine Glucose (UA) Normal, Urine Ketones 5 H, Urine Occult Blood 10 H, Urine Nitrite Negative, Urine Bilirubin Negative, Urine Urobilinogen Normal, Ur Leukocyte Esterase 500 H, Urine RBC 0 SEEN, Urine WBC 25-50 SEEN, Ur Squamous Epith Cells 50-100 SEEN, Urine Bacteria 0 SEEN, Urine Mucus 0 SEEN 02/04/22 18:37: Blood Type O POSITIVE, Antibody Screen NEGATIVE 02/05/22 05:28: Sodium 138, Potassium 3.6, Chloride 106, Carbon Dioxide 24.0, Anion Gap 8, BUN 6 L, Creatinine 0.76, Estim Creat Clear Calc 111.95, Est GFR (MDRD) Af Amer 120, Est GFR (MDRD) Non-Af 99, BUN/Creatinine Ratio 7.8 L, Glucose 105, Calcium 8.1 L, Magnesium 5.4 H*, Total Bilirubin 0.50, AST 29, ALT 21, Alkaline Phosphatase 145 H, Lactate Dehydrogenase 309 H, Total Protein 5.4 L , Albumin 1.8 L, Globulin 3.6, Albumin/Globulin Ratio 0.5 L 02/05/22 05:28: WBC 6.3, RBC 3.83 L, Hgb 9.1 L, Hct 29.8 L, MCV 77.8 L, MCH 23.8 L, MCHC 30.5 L, RDW Std Deviation 39.8, RDW Coeff of Danielle 14.7 H, Plt Count 149 L , MPV 12.7 H Physical Exam Const alert, oriented x3, no apparent distress, average body habitus, healthy appearing and well nourished HEENT normocephalic and moist oral mucous membranes Eyes PERRL Neck full ROM Resp normal respiratory effort, no retractions and no use of accessory muscles GI GI Narrative: Soft, nontender, bandage clean dry and intact Extremity normal to inspection, full ROM and no clubbing, cyanosis or edema Neuro moves all extremities and no focal motor deficits Psych mental status grossly normal, affect normal, speech normal and activity/motor behavior normal Assessment & Plan (1) delivery delivered: PLAN: Postop day 1 status post primary section elective at 34 weeks with Nicolasa twins and preeclampsia with severe features based on headache. Continue magnesium until 24 hours after delivery. HELLP labs stable. Blood pressures nonsevere range. We will continue to monitor. Ancef x24 hours.
[2022-02-05] MEDS: Senna/Docusate Sodium 1 Tablet PO (10:18)
[2022-02-05] MEDS: 0.9% Saline Lock 10 ML Syringe IV (19:35)
[2022-02-05] MEDS: Ibuprofen 600 MG Tablet PO (20:34)
[2022-02-05] MEDS: Sertraline 50 MG Tablet PO (22:19)
[2022-02-06] VITALS (9 sets, daily range): BP systolic 115–131; BP diastolic 66–85; PULSE 70–82; RESP 16–18; TEMP 36.3–36.7; O2SAT 96–98
[2022-02-06] MEDS: Acetaminophen 500 MG Tablet 1000 MG PO ×4 (01:01→18:44)
[2022-02-06] MEDS: Ibuprofen 600 MG Tablet PO ×4 (02:33→19:44)
--- NOTE | 2022-02-06 07:20 | PCM.PN.OB ---
Subjective Subjective No overnight complaints. Denies headache, visual changes, chest pain, shortness of breath, nausea vomit, right upper quadrant pain Objective Data Objective Data Vital Signs: Vital Signs Temp Pulse Resp BP Pulse Ox O2 Del Method 98.0 F 70 17 131/85 H 97 Room Air 02/06/22 04:32 02/06/22 04:32 02/06/22 04:32 02/06/22 04:32 02/06/22 04:32 02/06/22 04:32 Oxygen Delivery Method Room Air Weight: 316 lb Body Mass Index (BMI) 49.4 Intake & Output: Intake and Output for Last 24 Hours 02/04/22 02/05/22 02/06/22 23:59 23:59 23:59 Intake Total 1650.8 / 1650.8 3020.34 / 3020.34 Output Total 700 / 700 2325 / 2325 Balance 950.8 / 950.8 695.34 / 695.34 Lab / Micro Data Result Diagrams: 02/05/22 05:28 02/05/22 05:28 Physical Exam Const alert, oriented x3, no apparent distress, average body habitus, healthy appearing and well nourished HEENT normocephalic and moist oral mucous membranes Eyes PERRL Neck full ROM Resp normal respiratory effort, no retractions and no use of accessory muscles GI GI Narrative: Soft, nontender, bandage clean dry and intact Extremity normal to inspection, full ROM and no clubbing, cyanosis or edema Neuro moves all extremities and no focal motor deficits Psych mental status grossly normal, affect normal, speech normal and activity/motor behavior normal Assessment & Plan (1) delivery delivered: PLAN: Postop day 2 status post primary section at 34 weeks with Di twins elective with preeclampsia with severe features based on headache. Headache resolved. Status post magnesium. Asymptomatic, blood pressures within normal limits. We will continue to monitor. Status post Ancef for 24 hours. Likely home tomorrow
[2022-02-06] MEDS: Senna/Docusate Sodium 1 Tablet PO (10:15)
[2022-02-06] MEDS: Enoxaparin 40 MG/0.4 ML Syringe SC (10:16)
--- NOTE | 2022-02-06 16:38 | NURSING ---
Reviewed and agreed with Odilon LAWS charting.
[2022-02-06] MEDS: Sertraline 50 MG Tablet PO (22:06)
[2022-02-07] MEDS: Acetaminophen 500 MG Tablet 1000 MG PO ×3 (00:33→12:36)
[2022-02-07] MEDS: Ibuprofen 600 MG Tablet PO ×4 (02:32→20:01)
[2022-02-07 02:34] VITALS: BP 119/66; PULSE 72; RESP 16; TEMP 36.4; O2SAT 95
--- NOTE | 2022-02-07 08:29 | PCM.PN.OB ---
Subjective Subjective Reports mild tension headache. Patient was up every 3 hours last night pumping and is feeling tired this morning. No visual disturbances. No right upper quadrant pain, nausea or vomiting, chest pain or shortness of breath. Lochia minimal. Incision tenderness well controlled with pain medication. Objective Data Objective Data Vital Signs: Vital Signs Temp Pulse Resp BP Pulse Ox O2 Del Method 97.5 F L 72 16 119/66 95 Room Air 02/07/22 02:34 02/07/22 02:34 02/07/22 02:34 02/07/22 02:34 02/07/22 02:34 02/07/22 02:34 Oxygen Delivery Method Room Air Weight: 143.335 kg Body Mass Index (BMI) 49.4 Intake & Output: Intake and Output for Last 24 Hours 02/05/22 02/06/22 02/07/22 23:59 23:59 23:59 Intake Total 3020.34 / 3020.34 Output Total 2325 / 2325 Balance 695.34 / 695.34 Lab / Micro Data Attestation: I reviewed the patient's lab results. Result Diagrams: 02/05/22 05:28 02/05/22 05:28 Physical Exam Const alert, oriented x3 and no apparent distress HEENT normocephalic Head and Scalp: atraumatic Neck full ROM Resp normal respiratory effort Cardio regular rate GI normal to inspection, nondistended, normoactive bowel sounds GI Narrative: Uterus 2 cm below umbilicus, dressing clean and dry Back/Spine normal ROM Extremity normal to inspection Extremity Narrative: Minimal pedal edema Neuro no focal motor deficits and no sensory deficits noted Psych mental status grossly normal and affect normal Assessment & Plan (1) delivery delivered: PLAN: Postop day 3 status post primary section, elective for Di Di twins with preeclampsia with severe features and recent HSV outbreak. Patient is status post magnesium sulfate for 24 hours. Labs are stable. Blood pressure stable. Patient does report a mild tension type headache this morning. Recommend increased hydration and oral intake, is due for Motrin right now. Will monitor, if resolved will discharge home today. Babies are in special care doing well per patient. Acute on chronic anemia secondary to surgery. Continue iron supplementation on home-going. Plan to discharge home with Lovenox for DVT prophylaxis due to section and severe preeclampsia. Follow-up in 1 week for blood pressure check, 2 weeks incision check, 6-week . (2) Acute postoperative pain: (3) Severe pre-eclampsia:
--- NOTE | 2022-02-07 08:32 | DCINST_ITS ---
Discharge Instructions Diet Discharge Diet: No restrictions Activity Discharge Activity: Return to Normal Activity and May Shower May resume sexual activity in: 4-6 weeks Weight Bearing Status: Weight bearing as tolerated Lifting Restrictions: No greater than 25 pounds Dressing / Incision Call your doctor if your incision/area has: Continuous Slow Oozing, Increased Redness and Swelling at the incision site Call your doctor if you observe: Fever of 101 or Higher, Change in Color, Inability to urinate, Using more than 1 pad per hour, Shortness of breath, Dizziness, Swelling in the ankles, Chest pain and Calf discomfort Remove Dressing in: 1 week Cleanse incision/area with: Soap & Water and Keep Dressing Clean & Dry Follow Up Care Please Follow Up With: Negrita Anglin DO When: 1 week blood pressure check, 2-week and 6-week visit Test Results: Test results from this visit will be discussed in further detail at your follow- up appointment, if applicable. Discharge Plan Admission Admit Date/Time: 02/04/22 18:15 Primary Reason for Your Visit: Severe pre-eclampsia, section. Attending Provider: Kiran Anglin Instructions Additional Instructions / Restrictions: Regular diet. Okay to shower. No lifting over 25 pounds for 2 to 3 weeks. No tub baths for 2 weeks. No intercourse for 4 to 6 weeks. Call if fevers, chills, chest pain, shortness of breath. Follow-up 1 week blood pressure check, 2 weeks postoperatively Discharge Orders/Prescriptions Prescriptions: New oxycodone 5 mg Tablet 5 mg PO Q6H PRN PRN (Reason: Pain Score 7-10) 4 Days Qty: 16 0RF enoxaparin 40 mg/0.4 mL Syringe 40 mg subcut DAILY 42 Days Qty: 16.8 1RF Rx Instructions: Please supply sharps container, alcohol wipes, and needles/syringes Continued valacyclovir 500 mg tablet 500 mg PO DAILY sertraline [Zoloft] 50 mg Tablet 50 mg PO DAILY Gummies 400 mcg-35 mg- 25 mg-5 mg Tablet,Chewable 2 tab PO DAILY Disposition Disposition (needs filled in before D/C Order can be placed): Home, Self Care
--- NOTE | 2022-02-07 08:33 | PCM.DC.SUM ---
Providers Date of Admission: 02/04/22 Reason For Visit: C SECTION DELIVERY Diagnosis Discharge Diagnosis (1) delivery delivered: Status: Acute Code(s): O82 - Encounter for delivery without indication Plan: Postop day 3 status post primary section, elective for Di Di twins with preeclampsia with severe features and recent HSV outbreak. Patient is status post magnesium sulfate for 24 hours. Labs are stable. Blood pressure stable. Patient does report a mild tension type headache this morning. Recommend increased hydration and oral intake, is due for Motrin right now. Will monitor, if resolved will discharge home today. Babies are in special care doing well per patient. Acute on chronic anemia secondary to surgery. Continue iron supplementation on home-going. Plan to discharge home with Lovenox for DVT prophylaxis due to section and severe preeclampsia. Follow-up in 1 week for blood pressure check, 2 weeks incision check, 6-week . (2) Acute postoperative pain: Status: Acute Code(s): G89.18 - Other acute postprocedural pain (3) Severe pre-eclampsia: Status: Acute Code(s): O14.10 - Severe pre-eclampsia, unspecified trimester Medications at Discharge Home Medications valacyclovir 500 mg tablet 500 mg PO DAILY HSV 10/22/20 PNV 153-FA 400 mcg-om3 35 mg-dha 25 mg-epa 5 mg-fish oil chew tablet ( Gummies) 2 tab PO DAILY 11/26/21 sertraline 50 mg tablet (Zoloft) 50 mg PO DAILY anxieity/sleep 11/26/21 enoxaparin 40 mg/0.4 mL subcutaneous syringe 40 mg (0.4 mL) subcut DAILY 6 weeks #16.8 mL 02/05/22 oxycodone 5 mg tablet 5 mg PO Q6H PRN PRN Pain Score 7-10 4 days #16 tabs 02/05/22 Hospital Course Operations section Summary of Care Provided Hospital Course: Patient admitted and diagnosed with severe preeclampsia based on neurologic symptoms and proteinuria on 02/04/22. No severe range blood pressures. Patient had already had diagnosis of preeclampsia without severe features prior to admission. Patient had primary elective section. She additionally had had recent HSV outbreak, with several throughout the . Therefore she elected for primary section. Patient received 24 hours of magnesium sulfate for seizure prophylaxis postoperatively. Uneventful postop day 1 and 2. On postop day 3 patient reported headache that appeared to be tension like. She had repeat labs which were stable. In the afternoon headache was worsened with sitting up and standing. Anesthesia was requested to see and evaluate. She was given fluids and Fioricet. Patient was seen on postop day 4 by anesthesia, blood patch was placed that evening. After blood patch placement patient felt improved, on postop day 5 she had minimal headache and was able to sit up and ambulate without discomfort. Labs had been stable on postop day 3 and 4. Blood pressure stable. Discharged on postop day 5: 02/09/22. Physical Exam Const alert, oriented x3 and no apparent distress HEENT normocephalic Head and Scalp: atraumatic Neck full ROM Resp normal respiratory effort Cardio regular rate GI normal to inspection, nondistended, normoactive bowel sounds GI Narrative: Uterus 2 cm below umbilicus, dressing clean and dry Back/Spine normal ROM Extremity normal to inspection Extremity Narrative: Minimal pedal edema Neuro no focal motor deficits and no sensory deficits noted Psych mental status grossly normal and affect normal Weight / BMI Weight Weight: 143.335 kg Body Mass Index (BMI) 49.4 ABG / Lab / Microbiology Data Result Diagrams: 02/08/22 08:54 02/08/22 08:54 D/C Instructions Discharge Diet: No restrictions May resume sexual activity in: 4-6 weeks Weight Bearing Status: Weight bearing as tolerated Call your doctor if your incision/area has: Continuous Slow Oozing, Increased Redness and Swelling at the incision site Call your doctor if you observe: Fever of 101 or Higher, Change in Color, Inability to urinate, Using more than 1 pad per hour, Shortness of breath, Dizziness, Swelling in the ankles, Chest pain and Calf discomfort Cleanse incision/area with: Soap & Water and Keep Dressing Clean & Dry Please Follow Up With: Negrita Anglin DO When: 1 week blood pressure check, 2-week and 6-week visit Meaningful Use Info Meaningful Use Diagnoses (Choose all that apply): None applicable Discharge Plan Admission Admit Date/Time: 02/04/22 18:15 Primary Reason for Your Visit: Severe pre-eclampsia, section. Attending Provider: Kiran Anglin Instructions Additional Instructions / Restrictions: Regular diet. Okay to shower. No lifting over 25 pounds for 2 to 3 weeks. No tub baths for 2 weeks. No intercourse for 4 to 6 weeks. Call if fevers, chills, chest pain, shortness of breath. Follow-up 1 week blood pressure check, 2 weeks postoperatively Discharge Orders/Prescriptions Prescriptions: New oxycodone 5 mg Tablet 5 mg PO Q6H PRN PRN (Reason: Pain Score 7-10) 4 Days Qty: 16 0RF enoxaparin 40 mg/0.4 mL Syringe 40 mg subcut DAILY 42 Days Qty: 16.8 1RF Rx Instructions: Please supply sharps container, alcohol wipes, and needles/syringes Continued valacyclovir 500 mg tablet 500 mg PO DAILY sertraline [Zoloft] 50 mg Tablet 50 mg PO DAILY Gummies 400 mcg-35 mg- 25 mg-5 mg Tablet,Chewable 2 tab PO DAILY Disposition Disposition (needs filled in before D/C Order can be placed): Home, Self Care
[2022-02-07 08:34] VITALS: BP 135/84; PULSE 69; RESP 15; TEMP 36.2; O2SAT 98
[2022-02-07] MEDS: Enoxaparin 40 MG/0.4 ML Syringe SC (10:24)
[2022-02-07] MEDS: Senna/Docusate Sodium 1 Tablet PO (10:24)
[2022-02-07 10:29] VITALS: BP 140/84; PULSE 71
[2022-02-07 10:31] VITALS: BP 133/83; PULSE 73
[2022-02-07 11:40] LABS: Absolute Lymphocyte Count 1.44 X10^3/uL (0.83-4.51); Absolute Neutrophil Count 4.1 X10^3/uL (2.0-7.7); Basophil# 0.02 X10^3/uL; Basophil% 0.3 % (0-1); Eosinophil# 0.26 X10^3/uL; Eosinophils% 4.2 % (0-5); Hematocrit 29.4 % (37-47); Hemoglobin 8.9 g/dL (12.0-15.0); Lymphocyte # 1.44 X10^3/ul (0.83-4.51); Mean Corp Hgb Conc 30.3 g/dL (32-36); Mean Corpuscular Hgb 24.3 pg (27.0-32.0); Mean Corpuscular Volume 80.1 fL (81-99); Mean Platelet Vol. 11.2 fl (6.2-12.0); Monocyte% 6.4 % (0-10); NRBC Flagged by Analyzer 0 % (0-5); Neutrophil # 4.12 X10^3/uL (2.7-7.7); Neutrophil % 65.8 % (47-70); Platelet Count 166 K/mm3 (150-450); RBC Distribution Width CV 15.1 % (11.6-14.6); RBC Distribution Width SD 43.6 fl (35.1-43.9); Red Blood Count 3.67 M/mm3 (4.2-5.4); White Blood Count 6.3 K/mm3 (4.4-11.0)
[2022-02-07 12:14] LABS: ALB/GLOB Ratio 0.5 RATIO (0.9-2.4); AST(SGOT) 24 U/L (15-37); Alanine Aminotransfer ALT/SGPT 15 U/L (13-56); Alkaline Phosphatase 127 U/L (45-117); Anion Gap 6 (5-15); BUN 8 mg/dL (7-18); BUN/Creat Ratio 11.9 RATIO (10-20); Calcium,Total 8.7 mg/dL (8.5-10.1); Chloride 106 mmol/L (98-107); Creatinine, Serum 0.67 mg/dL (0.55-1.02); EST Glomerular Filtration Rate 115 mL/min (>60); Est Glom Filt Rate - Afr Amer 139 mL/min (>60); Estimated Creatinine Clearance 126.99 ml/min; Globulin 4.3 g/dL (2.2-4.2); Glucose 86 mg/dL (74-106); LDH 248 U/L (84-246); Potassium 4.3 mmol/L (3.5-5.1); Protein, Total 6.3 g/dL (6.4-8.2); Sodium Level 140 mmol/L (136-145)
[2022-02-07 14:33] VITALS: BP 136/88; PULSE 75; RESP 15; TEMP 36.4; O2SAT 97
[2022-02-07] MEDS: oxyCODONE 5 MG Tablet PO ×2 (16:33→23:29)
[2022-02-07] MEDS: Ondansetron ODT 4 MG Tablet PO (17:16)
[2022-02-07] MEDS: Acetaminophen/Butalbital/Caffe 1 Tablet 2 TABLET PO (18:40)
[2022-02-07] MEDS: LACTATED RINGERS 500 ML 999 ML IV (18:52)
[2022-02-07 19:43] VITALS: BP 146/83; PULSE 71; RESP 18; TEMP 36.4; O2SAT 97
--- NOTE | 2022-02-07 19:52 | NURSING ---
Pt sitting up in bed with lights on and eating chips. Pt denies visual disturbances, dizziness, nausea, and upper epigastric pain. Reflexes within normal limits and +2 nonpitting edema in feet. pt states headache is a 6/10 sitting in bed, above 10/10 while standing, and 1/10 lying in bed. Pt states lights mildly effect her headache.
[2022-02-07] MEDS: Sertraline 50 MG Tablet PO (21:26)
[2022-02-08] VITALS (7 sets, daily range): BP systolic 111–142; BP diastolic 66–92; PULSE 69–83; RESP 16–18; TEMP 36–36.9; O2SAT 95–98
[2022-02-08] MEDS: Ibuprofen 600 MG Tablet PO ×4 (02:06→22:00)
--- NOTE | 2022-02-08 02:14 | NURSING ---
pt rates headache 2-3/10. Pt states headache is frontal then radiates to back of head and neck.
[2022-02-08] MEDS: Acetaminophen/Butalbital/Caffe 1 Tablet 2 TABLET PO ×4 (02:58→22:49)
--- NOTE | 2022-02-08 04:52 | NURSING ---
pt states headache is at a standstill. pt is rating H/A a 3/10 this morning. Pt encouraged to continue hydrating and resting.
--- NOTE | 2022-02-08 08:00 | PN.OBGYN_ITS ---
Subjective Subjective Pt still with headache that has improved but is persistent. Denies visual changes, chest pain, shortness of breath, right upper quadrant pain. Objective Data Objective Data Vital Signs: Vital Signs Temp Pulse Resp BP Pulse Ox O2 Del Method 97.1 F L 77 18 111/73 95 Room Air 02/08/22 02:09 02/08/22 02:09 02/08/22 02:09 02/08/22 02:09 02/08/22 02:09 02/08/22 02:09 Oxygen Delivery Method Room Air Weight: 316 lb Body Mass Index (BMI) 49.4 Intake & Output: Intake and Output for Last 24 Hours 02/06/22 02/07/22 02/08/22 23:59 23:59 23:59 Intake Total 500 / 500 Balance 500 / 500 Lab / Micro Data Result Diagrams: 02/07/22 11:30 02/07/22 11:30 Labs: Laboratory Results - last 24 hr 02/07/22 11:30: WBC 6.3, RBC 3.67 L, Hgb 8.9 L, Hct 29.4 L, MCV 80.1 L, MCH 24.3 L, MCHC 30.3 L, RDW Std Deviation 43.6, RDW Coeff of Danielle 15.1 H, Plt Count 166, MPV 11.2, Immature Gran % (Auto) 0.300, Neut % (Auto) 65.8, Lymph % (Auto) 23.0, Morrill % (Auto) 6.4, Eos % (Auto) 4.2, Baso % (Auto) 0.3, Absolute Neuts (auto) 4.1, Absolute Lymphs (auto) 1.44, Nucleated RBC % 0 02/07/22 11:30: Sodium 140, Potassium 4.3, Chloride 106, Carbon Dioxide 28.0, Anion Gap 6, BUN 8, Creatinine 0.67, Estim Creat Clear Calc 126.99, Est GFR (MDRD) Af Amer 139, Est GFR (MDRD) Non-Af 115, BUN/Creatinine Ratio 11.9, Glucose 86, Calcium 8.7, Total Bilirubin 0.30, AST 24, ALT 15, Alkaline Phosphatase 127 H, Lactate Dehydrogenase 248 H, Total Protein 6.3 L, Albumin 2.0 L, Globulin 4.3 H, Albumin/Globulin Ratio 0.5 L Physical Exam Const alert, oriented x3, no apparent distress, average body habitus, healthy appearing and well nourished HEENT normocephalic and moist oral mucous membranes Eyes PERRL Resp normal respiratory effort, no retractions and no use of accessory muscles GI GI Narrative: Soft, nontender, bandage clean dry and intact Extremity normal to inspection, full ROM and no clubbing, cyanosis or edema Neuro moves all extremities and no focal motor deficits Psych mental status grossly normal, affect normal, speech normal and activity/motor behavior normal Assessment & Plan (1) delivery delivered: PLAN: Postop day 4 status post primary section at 34 weeks with Nicolasa twins severe preeclampsia based on headache elective section. Patient still with persistent headache status post magnesium. HELLP labs stable. Patient does have improvement with headache when lying down and worsening when sitting up, anesthesia consult still pending. Will evaluate for spinal headache. Pending anesthesia's recommendations and results will consider repeat magnesium dosing.
[2022-02-08] MEDS: 0.9% Saline Lock 10 ML Syringe IV (08:47)
[2022-02-08 09:06] LABS: Absolute Neutrophil Count 3.6 X10^3/uL (2.0-7.7); Basophil# 0.02 X10^3/uL; Basophil% 0.3 % (0-1); Eosinophil# 0.23 X10^3/uL; Hematocrit 27.6 % (37-47); Hemoglobin 8.6 g/dL (12.0-15.0); Lymphocyte % 27.6 % (19-41); Mean Corp Hgb Conc 31.2 g/dL (32-36); Mean Corpuscular Hgb 24.7 pg (27.0-32.0); Mean Corpuscular Volume 79.3 fL (81-99); Mean Platelet Vol. 11.5 fl (6.2-12.0); Monocyte# 0.35 X10^3/uL; NRBC Flagged by Analyzer 0 % (0-5); Neutrophil # 3.58 X10^3/uL (2.7-7.7); Neutrophil % 61.8 % (47-70); Platelet Count 175 K/mm3 (150-450); RBC Distribution Width CV 15.1 % (11.6-14.6); RBC Distribution Width SD 43.5 fl (35.1-43.9); Red Blood Count 3.48 M/mm3 (4.2-5.4); White Blood Count 5.8 K/mm3 (4.4-11.0)
[2022-02-08 09:21] LABS: ALB/GLOB Ratio 0.5 RATIO (0.9-2.4); AST(SGOT) 24 U/L (15-37); Alanine Aminotransfer ALT/SGPT 16 U/L (13-56); Alkaline Phosphatase 110 U/L (45-117); Anion Gap 5 (5-15); BUN 9 mg/dL (7-18); BUN/Creat Ratio 14.3 RATIO (10-20); Calcium,Total 8.7 mg/dL (8.5-10.1); Chloride 104 mmol/L (98-107); Creatinine, Serum 0.63 mg/dL (0.55-1.02); EST Glomerular Filtration Rate 124 mL/min (>60); Est Glom Filt Rate - Afr Amer 150 mL/min (>60); Estimated Creatinine Clearance 135.06 ml/min; Globulin 4.1 g/dL (2.2-4.2); Glucose 81 mg/dL (74-106); LDH 183 U/L (84-246); Potassium 3.9 mmol/L (3.5-5.1); Protein, Total 6.1 g/dL (6.4-8.2); Sodium Level 138 mmol/L (136-145)
[2022-02-08] MEDS: Enoxaparin 40 MG/0.4 ML Syringe SC (10:16)
[2022-02-08] MEDS: Senna/Docusate Sodium 1 Tablet PO (10:16)
--- NOTE | 2022-02-08 14:00 | CASEMGMT ---
Social Work Labor and Delivery Patient address: [facility] [address], [place] [address] Patient phone: [phone] Date and time of referral: 02.04.2022, 2222 Date and time of intervention: 02.08.2022, [id number] Reason for referral: maternal history of depression, anxiety; babies admitted to [facility] History obtained from: Medical records and mother of baby (MOB) Juanita Paulino. Educated that this typewriter assembly and parts inspector is the social media marketing specialist for hospital and for continuity of care of families admitted to the [facility] also provides social work services to the [facility]. Household composition: MOB, father of baby (FOB) Kyaw Paulino, and patient's siblings. Home situation is reported as safe and adequate. Patient's parent/guardian status: CARRINGTON is a 23 year old female, to the FOB for the last 4 years. MOB denies any history of abuse or intimate partner violence in relationship with FOB. MOB and FOB now have 3 children together: Fausto (age 3), patient/Baby A - Cristela, and Baby B - Daisy Paulino (02.04.2022). Medical History: MOB is G2, P1 now 3 after delivering twins. care started at 11 weeks. MOB reports was taking letrozole for fertility. 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 MOB reports both Cristela and Daisy weighed 6 pounds 1 ounce. Apgars 8 and 9 for both. Delivered twins at 34 weeks gestation via caesarian section. Transferred to [facility] for prematurity. *MOB reports Fausto was also born prematurely at 36 weeks with a 1.5 NICU or SCN stay after . Educational Status: MOB graduated high school and took some [employer] classes. Reports working on enrollment into nursing school. Health Care Coverage: [facility] Medicaid. Financial Status: MOB is a stay at home mom at present. FOB works jr. systems administrator at [employer] in [facility] Childcare/Caregiver(s): MOB is primary caregiver. Reports infant's paternal grandmother is helping with Fausto while MOB in the hospital and FOB is working. Transportation: MOB drives and has a vehicle. FOB does not drive. Programs/Agencies Involved: [facility] for food and medical. [facility]. History of [facility] for oldest child. Denies legal or children services history. Behavioral Health Issues: MOB reports some depression and anxiety, mostly anxiety. Denies any depression/anxiety after Fausto. Reports was having difficulty sleeping and nightmares in the 2nd trimester, spoke with doctor, started on Zoloft. MOB reports reduction symptoms after Zoloft and plans to remain on medication . MOB denies any current or past thoughts of harm to self, others, or any nightmares involving suicide/homicide/harm to others. Patient's maternal aunt has history of some depression/anxiety/bipolar, but not sure which diagnosis. MOB denies any substance use/dependency history. Social alcohol use, but denies during . Family Stressors: Babies admitted to [facility], worried about how to be present for both the twins and for child at home. MOB reports has not felt well since delivery and may be dealing with a spinal headache. Support Systems: MOB report's 's paternal grandmother is primary support for practical help and FOB is primary support for emotional help. Assessment This typewriter assembly and parts inspector received update from nursing staff about concern for MOB, as MOB has not been to the SCN consistently. When present in the SCN reportedly does well with babies, but just not a lot of involvement so far. Met with MOB in MOB's hospital room at [facility], introducing to self and social work role. MOB cooperative, pleasant and willing to speak with social media marketing specialist. MOB reports to have necessary supplies to care for babies at home. MOB reports to feel connected to the babies and talked about some of the visits with babies so far. MOB shared difficulty has had since delivery with headaches, with physicians trying to determine whether due to pre-eclampsia or spinal headache. MOB reports hope to make it to the SCN around 1400 when speech arrives for a consult. MOB reports anesthesiologist is to evaluate for the headache today. MOB talked about stress in trying to determine how to plan for giving time to all family members, having guilt being at hospital and not with older son, and vice versa. Emotional support and encouragement given to MOB and provided MOB time while MOB processed her options and plans. Educated to depression and anxiety, risk factors, and importance of seeking out help and support. Talked about [facility] and MOB is uncertain whether wants this again, though if recommended by staff at discharge would accept referral. Provided resource list of area director of social services for [facility]. Plan Discharge to home when ready. Infant discharge home with parents when ready. Community resource information provided. MOB plans to remain on antidepressant in the timeframe. BUSHRA Landry, ASSOCIATE EMBALMER/FUNERAL DIRECTOR
[2022-02-08] MEDS: Ondansetron ODT 4 MG Tablet PO (14:38)
--- NOTE | 2022-02-08 17:18 | NURSING ---
Dr. Neal evaluated pt at bs and determined need for blood patch for positional PARDO. Dr. Ivan, Sarah RN, and this RN at bs at 1645 - blood patch performed at 1700 - pt placed supine at 1702- vital signs completed.
--- NOTE | 2022-02-08 17:23 | PCM.PN.OB ---
Subjective Subjective Patient status post blood patch lying at rest. Feels improved headache Objective Data Objective Data Vital Signs: Vital Signs Temp Pulse Resp BP Pulse Ox O2 Del Method 97.3 F L 69 18 124/72 H 97 Room Air 02/08/22 14:40 02/08/22 14:40 02/08/22 14:40 02/08/22 14:40 02/08/22 14:40 02/08/22 14:40 Oxygen Delivery Method Room Air Weight: 316 lb Body Mass Index (BMI) 49.4 Intake & Output: Intake and Output for Last 24 Hours 02/06/22 02/07/22 02/08/22 23:59 23:59 23:59 Intake Total 500 / 500 Balance 500 / 500 Lab / Micro Data Result Diagrams: 02/08/22 08:54 02/08/22 08:54 Labs: Laboratory Results - last 24 hr 02/08/22 08:54: WBC 5.8, RBC 3.48 L, Hgb 8.6 L, Hct 27.6 L, MCV 79.3 L, MCH 24.7 L, MCHC 31.2 L, RDW Std Deviation 43.5, RDW Coeff of Danielle 15.1 H, Plt Count 175, MPV 11.5, Immature Gran % (Auto) 0.300, Neut % (Auto) 61.8, Lymph % (Auto) 27.6, Whitley % (Auto) 6.0, Eos % (Auto) 4.0, Baso % (Auto) 0.3, Absolute Neuts (auto) 3.6, Absolute Lymphs (auto) 1.60, Nucleated RBC % 0 02/08/22 08:54: Sodium 138, Potassium 3.9, Chloride 104, Carbon Dioxide 29.0, Anion Gap 5, BUN 9, Creatinine 0.63, Estim Creat Clear Calc 135.06, Est GFR (MDRD) Af Amer 150, Est GFR (MDRD) Non-Af 124, BUN/Creatinine Ratio 14.3, Glucose 81, Calcium 8.7, Total Bilirubin 0.40, AST 24, ALT 16, Alkaline Phosphatase 110, Lactate Dehydrogenase 183, Total Protein 6.1 L, Albumin 2.0 L, Globulin 4.1, Albumin/Globulin Ratio 0.5 L Physical Exam Const alert, oriented x3, no apparent distress, average body habitus, healthy appearing and well nourished HEENT normocephalic and moist oral mucous membranes Eyes PERRL Neck full ROM Resp normal respiratory effort, no retractions and no use of accessory muscles Extremity normal to inspection and full ROM Neuro moves all extremities and no focal motor deficits Psych mental status grossly normal, affect normal, speech normal and activity/motor behavior normal Assessment & Plan (1) delivery delivered: PLAN: Patient seen and examined. Status post blood patch by anesthesia, for spinal headache. Patient feeling somewhat improved. We will continue to monitor overnight and reevaluate in the morning. Educated patient on plan and treatment options going forward
[2022-02-08] MEDS: Sertraline 50 MG Tablet PO (22:51)
--- NOTE | 2022-02-09 00:40 | NURSING ---
Pt states Headache was nearly gone once the blood patch was placed. Pt feels her headache now is due to stress and crying. RN notes sent to [facility].
[2022-02-09 02:16] VITALS: BP 119/78; PULSE 80; RESP 16; TEMP 36.6; O2SAT 94
[2022-02-09] MEDS: Ibuprofen 600 MG Tablet PO ×3 (03:57→16:57)
[2022-02-09] MEDS: 0.9% Saline Lock 10 ML Syringe IV (03:57)
--- NOTE | 2022-02-09 07:37 | PN.OBGYN_ITS ---
Subjective Subjective Feeling much improved today after blood patch. There is a slight frontal head discomfort rating 1 out of 10. Patient states she thinks it is because she cried a lot last night because Neeraj was transported to [facility] for tachycardia. No visual disturbances. Is able to get up and walk around. Was resting comfortably this morning. Denies nausea or vomiting, chest pain or shortness of breath, right upper quadrant pain. Objective Data Objective Data Vital Signs: Vital Signs Temp Pulse Resp BP Pulse Ox O2 Del Method 97.8 F 80 16 119/78 94 Room Air 02/09/22 02:16 02/09/22 02:16 02/09/22 02:16 02/09/22 02:16 02/09/22 02:16 02/09/22 02:16 Oxygen Delivery Method Room Air Weight: 143.335 kg Body Mass Index (BMI) 49.4 Intake & Output: Intake and Output for Last 24 Hours 02/07/22 02/08/22 02/09/22 23:59 23:59 23:59 Intake Total 500 / 500 Balance 500 / 500 Lab / Micro Data Attestation: I reviewed the patient's lab results. Result Diagrams: 02/08/22 08:54 02/08/22 08:54 Labs: Laboratory Results - last 24 hr 02/08/22 08:54: WBC 5.8, RBC 3.48 L, Hgb 8.6 L, Hct 27.6 L, MCV 79.3 L, MCH 24.7 L, MCHC 31.2 L, RDW Std Deviation 43.5, RDW Coeff of Danielle 15.1 H, Plt Count 175, MPV 11.5, Immature Gran % (Auto) 0.300, Neut % (Auto) 61.8, Lymph % (Auto) 27.6, [place] % (Auto) 6.0, Eos % (Auto) 4.0, Baso % (Auto) 0.3, Absolute Neuts (auto) 3.6, Absolute Lymphs (auto) 1.60, Nucleated RBC % 0 02/08/22 08:54: Sodium 138, Potassium 3.9, Chloride 104, Carbon Dioxide 29.0, Anion Gap 5, BUN 9, Creatinine 0.63, Estim Creat Clear Calc 135.06, Est GFR (MDRD) Af Amer 150, Est GFR (MDRD) Non-Af 124, BUN/Creatinine Ratio 14.3, Glucose 81, Calcium 8.7, Total Bilirubin 0.40, AST 24, ALT 16, Alkaline Phosph atase 110, Lactate Dehydrogenase 183, Total Protein 6.1 L, Albumin 2.0 L, Globulin 4.1, Albumin/Globulin Ratio 0.5 L Physical Exam Const alert, oriented x3 and no apparent distress HEENT normocephalic Head and Scalp: atraumatic Neck full ROM Resp normal respiratory effort Cardio regular rate GI normal to inspection, nondistended, normoactive bowel sounds GI Narrative: Uterus 2 cm below umbilicus, dressing clean and dry Back/Spine normal ROM Extremity normal to inspection Extremity Narrative: Minimal pedal edema Neuro no focal motor deficits and no sensory deficits noted Psych mental status grossly normal and affect normal Assessment & Plan (1) Severe pre-eclampsia: PLAN: Postop day 5 status post primary section. Complicated by severe preeclampsia. Labs and blood pressures have been stable. Patient had spinal headache, which is now almost entirely resolved. Acute on chronic anemia stable postoperatively, to resume iron supplementation on home-going. Baby B is now at [facility] for tachycardia. Baby A is doing well special care nursery. We will plan to reevaluate later this morning. Likely discharge home today. (2) delivery delivered: (3) Acute postoperative pain:
[2022-02-09 09:39] VITALS: BP 130/81; PULSE 85; RESP 18; TEMP 36.6; O2SAT 96
[2022-02-09] MEDS: Enoxaparin 40 MG/0.4 ML Syringe SC (10:24)
[2022-02-09 14:26] VITALS: BP 114/66; PULSE 85; RESP 16; TEMP 36.3; O2SAT 96
== END 2022-02-09 17:00 | disposition home or self-care (01) | DRG 540 ==
LOC: WPOUT 18:21 → WP 18:21
PROVIDERS: Student in an Organized Health Care Education/Training Program; Admitting Provider Obstetrics & Gynecology; Visit Provider Obstetrics & Gynecology
DX: O14.14 Severe pre-eclampsia complicating childbirth (principal); D62 Acute posthemorrhagic anemia; O30.043 Twin pregnancy, dichorionic/diamniotic, third trimester; Z37.2 Twins, both liveborn; O98.32 Other infections with a predominantly sexual mode of transmission complicating childbirth; F41.9 Anxiety disorder, unspecified; Z3A.34 34 weeks gestation of pregnancy; O99.344 Other mental disorders complicating childbirth; F32.A Depression, unspecified; A60.00 Herpesviral infection of urogenital system, unspecified; O90.81 Anemia of the puerperium; O89.4 Spinal and epidural anesthesia-induced headache during the puerperium
CPT/HCPCS: 36415; 59025; 59050; 76815; 80053; 81001; 82565; 82570; 83615; 83735; 84112; 84156; 84450; 84460; 84550; 85025; 85027; 86850; 86900; 86901; 87086; 87088; 99218; J7120; A4216; G0378

== ENCOUNTER → 2022-08-31 | Outpatient (CLI) | payer MEDICAID, SELFPAY ==
[2022-09-06 16:15] LABS: HPV Reflexed? NOT INDICATED
== END | disposition home or self-care (01) ==
PROVIDERS: Visit Provider Obstetrics & Gynecology
DX: Z12.4 Encounter for screening for malignant neoplasm of cervix (principal)
CPT/HCPCS: 88175; G0145

== ENCOUNTER → 2023-10-17 | Outpatient (CLI) | payer MEDICAID, SELFPAY ==
[2023-10-17 13:18] LABS: Absolute Lymphocyte Count 2.31 X10^3/uL (0.83-4.51); Absolute Neutrophil Count 3.3 X10^3/uL (2.0-7.7); Basophil# 0.06 X10^3/uL; Basophil% 0.9 % (0-1); Eosinophil# 0.35 X10^3/uL; Eosinophils% 5.5 % (0-5); Hematocrit 40.1 % (37-47); Hemoglobin 12.9 g/dL (12.0-15.0); Lymphocyte # 2.31 X10^3/ul (0.83-4.51); Lymphocyte % 36.2 % (19-41); Mean Corp Hgb Conc 32.2 g/dL (32-36); Mean Corpuscular Hgb 25.6 pg (27.0-32.0); Mean Corpuscular Volume 79.6 fL (81-99); Mean Platelet Vol. 11.5 fl (6.2-12.0); Monocyte# 0.36 X10^3/uL; Monocyte% 5.6 % (0-10); NRBC Flagged by Analyzer 0 % (0-5); Neutrophil # 3.29 X10^3/uL (2.7-7.7); Neutrophil % 51.6 % (47-70); Platelet Count 257 K/mm3 (150-450); RBC Distribution Width CV 13.4 % (11.6-14.6); RBC Distribution Width SD 38.8 fl (35.1-43.9); Red Blood Count 5.04 M/mm3 (4.2-5.4); White Blood Count 6.4 K/mm3 (4.4-11.0)
[2023-10-17 13:47] LABS: Vitamin D,25 Hydroxy 26.9 ng/mL
[2023-10-17 14:02] LABS: ALB/GLOB Ratio 0.8 RATIO (0.9-2.4); AST(SGOT) 38 U/L (15-37); Alanine Aminotransfer ALT/SGPT 56 U/L (13-56); Albumin, Serum 3.7 g/dL (3.2-5.0); Alkaline Phosphatase 89 U/L (45-117); Anion Gap 8 (5-15); BUN 11 mg/dL (7-18); BUN/Creat Ratio 15.9 RATIO (10-20); Chloride 108 mmol/L (98-107); Creatinine, Serum 0.69 mg/dL (0.55-1.02); EST Glomerular Filtration Rate 109 mL/min (>60); Est Glom Filt Rate - Afr Amer 132 mL/min (>60); Estradiol 72.6 pg/mL; Follicle Stimulating Hormone 6.9 mIU/mL; Globulin 4.6 g/dL (2.2-4.2); Glucose 87 mg/dL (74-106); Potassium 3.8 mmol/L (3.5-5.1); Protein, Total 8.3 g/dL (6.4-8.2); Sodium Level 141 mmol/L (136-145); T4 Free Direct 1.04 ng/dL (0.76-1.46)
[2023-10-19 08:12] LABS: Thyroid Peroxidase AB < 9 IU/mL (0-34)
[2023-10-24 01:06] LABS: 17-Hydroxyprogesterone 61 ng/dL (.)
== END | disposition home or self-care (01) ==
PROVIDERS: PCP Nurse Practitioner Adult Health; Referring Provider Nurse Practitioner Family; Visit Provider Nurse Practitioner Family
DX: N89.8 Other specified noninflammatory disorders of vagina (principal); N92.0 Excessive and frequent menstruation with regular cycle; Z13.29 Encounter for screening for other suspected endocrine disorder; R53.83 Other fatigue
CPT/HCPCS: 36415; 80053; 82306; 82627; 82670; 83001; 83498; 84439; 84443; 85025; 86376; 87070; 87205; 82626

== ENCOUNTER → 2023-10-29 | Outpatient (CLI) | payer MEDICAID, SELFPAY ==
--- NOTE | 2023-10-29 09:54 | US_ITS ---
STUDY: ULTRASOUND OF THE FEMALE PELVIS - COMPLETE REASON FOR EXAM: Female, 23 years old. hx PCOS; menorrhagia LMP: 10/15/2023 TECHNIQUE: Transabdominal and Transvaginal TECHNICAL QUALITY: Adequate. COMPARISON: None. FINDINGS: The uterus is anteverted and is in a midline position. The uterus measures 9.8 x 5.9 x 4.6 cm. Normal uterine cervix. The endometrium measures 8 mm in thickness, and is hyperechoic. There is no demonstrated endometrial mass. There is no demonstrated myometrial mass. I.U.D. - The patient does not have an I.U.D. The right ovary is visualized. The right ovary measures 4.1 x 3.9 x 2.5 cm. There is no right ovarian cyst or ovarian mass. There is no visualized right adnexal mass or complex lesion. There is normal arterial and normal venous vascularity. The left ovary is visualized. The left ovary measures 3.8 x 3.7 x 2.3 cm. There is a 2.1 cm cyst. There is no visualized left adnexal mass or complex lesion. There is normal arterial and normal venous vascularity. There is no fluid in the cul-de-sac. The pre void volume of the bladder was 611 ml. US/Pelvic w/ Transvaginal IMPRESSION: Normal female pelvis. Electronically Signed: Yogesh Barrios MD at 23:54 EDT ,
== END | disposition home or self-care (01) ==
LOC: US 09:52
PROVIDERS: PCP Nurse Practitioner Adult Health; Referring Provider Nurse Practitioner Family; Visit Provider Nurse Practitioner Family
DX: N92.0 Excessive and frequent menstruation with regular cycle (principal)
CPT/HCPCS: 76830; 76856

== ENCOUNTER → 2024-01-19 | Outpatient (CLI) | payer MEDICAID, SELFPAY | END | disposition home or self-care (01) | LOC: US 10:42 | PROVIDERS: PCP Nurse Practitioner Adult Health; Referring Provider Nurse Practitioner Family; Visit Provider Nurse Practitioner Family | DX: N83.202 Unspecified ovarian cyst, left side (principal) | CPT/HCPCS: 76830; 76856 ==

== ENCOUNTER → 2024-07-16 | Outpatient (CLI) | payer SELFPAY ==
[2024-07-16 18:02] LABS: hCG Titer Quant., Serum < 1 mIU/mL (<9 non-preg)
== END | disposition home or self-care (01) ==
LOC: LAB 15:08
PROVIDERS: PCP Nurse Practitioner Adult Health; Referring Provider Nurse Practitioner Family; Visit Provider Nurse Practitioner Family
DX: N91.2 Amenorrhea, unspecified (principal)
CPT/HCPCS: 36415; 84702

== ENCOUNTER 2024-07-24 08:23 | Emergency (ER) | payer OTHER, SELFPAY ==
[2024-07-24 08:23] VITALS: BP 129/80; PULSE 88; RESP 16; TEMP 36.7; O2SAT 98; BMI 49.8
--- NOTE | 2024-07-24 08:54 | US_ITS ---
PROCEDURE: TRANSVAGINAL NON- 07/24/2024 REASON FOR EXAM: ABNORMAL VAGINAL BLEEDING TECHNIQUE: Transvaginal pelvic ultrasound COMPARISON: Ultrasound of 01/19/2024. FINDINGS: Measurements: Uterus: 9.6 x 5.9 x 4.4 cm with a volume of 131 mL Endometrial Thickness: 5.3 mm thickness. Right Ovary: 4.2 x 2.4 x 2.1 cm with a volume of 11.1 mL. Left Ovary: 4.8 x 3.9 x 3.0 cm with a volume of 29.7 mL. A left ovarian cyst is measured at 3.4 x 3.0 x 1.8 cm. No solid component is noted. Uterus: Normal size, myometrial echotexture, and contour. Endometrium: Unremarkable. Right ovary: No abnormality seen. Satisfactory arterial and venous blood flow is noted. Left ovary: Left ovarian cyst. Satisfactory arterial and venous blood flow noted. Other: No free fluid is seen. US/Transvaginal Non- IMPRESSION: 1. Left ovarian cyst. 2. Negative examination, otherwise. Reading Location: [id number]
--- NOTE | 2024-07-24 08:58 | ED.VIS.FEGU ---
HPI HPI - Female History of Present Illness Chief Complaint: Vag Bleeding Informant: patient Narrative Narrative: 24-year-old female presenting to the emergency room with heavy vaginal bleeding. Patient states that this menstrual cycle was about 2-1/2 weeks late. She states that she typically has been very regular in recent months. She has a history of PCOS. She states that last night she had a clot about the size of her palm and messaged her seed cleaner operator. She states she had some small clots throughout the night this morning when she got to work coworkers mention that she did not appear her normal self. She states she feels flushed and has a slight headache. She notes pelvic cramping. Patient states she is not currently on any hormonal medications. She heard back from her seed cleaner operator and was advised to come to emergency. She denies any known bleeding disorders. [facility] Medical History Pre-eclampsia History of pre-term labor Infertility PCOS (polycystic ovarian syndrome) Home Medications ?Medication ?Instructions ?Recorded ?Last Taken ?Type metformin 500 mg tablet 500 mg PO DAILY 10/17/23 Unknown History spironolactone 25 mg tablet 25 mg PO DAILY 10/17/23 Unknown History tirzepatide 2.5 mg/0.5 mL 2.5 mg subcut QWEEK 10/17/23 Unknown History subcutaneous pen injector (Mounjaro) valacyclovir 500 mg tablet 500 mg PO QDAY HSV 30 days #30 tabs 05/26/24 Unknown Rx Allergy/AdvReac Type Severity Reaction Status Date / Time No Known Allergies Allergy Verified 07/24/24 08:24 Family History Mother Colon cancer Thyroid disorder Surgical History H/O submucous nasal surgery Social History adopted: No household members: spouse and children housing: house number of children: 3 current occupational status: unemployed 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 sexually active: Yes Smoking Status: Never smoker alcohol intake: never substance use type: does not use caffeine: No eating out: rarely or never during the past year weight has: increased > 10 lbs what type of physical activity do you participate in: other details: different work outs frequency: 3-4 times per week seatbelt use: always do you feel safe at home: Yes ROS ROS ED Constitutional Constitutional ED: Denies chills or weight loss Eyes Eyes: Denies change in vision or diplopia ENT ENT ED: Denies ear pain, rhinorrhea or sore throat Cardiovascular Cardiovascular: Denies chest pain, orthopnea, palpitations or racing heartbeat Respiratory/Chest Respiratory/Chest: Denies cough, dyspnea or orthopnea Gastrointestinal Gastrointestinal: Denies abdominal pain, diarrhea, nausea or vomiting Genitourinary Genitourinary ED: Reports other Details: See history of present illness ; Denies dysuria, hematuria or urinary frequency Musculoskeletal Musculoskeletal: Denies arthralgias or myalgias Integumentary Denies abscess or rash Neurologic Neurologic: Denies headache(s) or weakness Psychiatric Psychiatric: Denies anxiety, depression, suicidal ideation or suicidal thoughts Endocrine Endocrinology: Denies polydipsia, polyphagia or polyuria Allergic/Immunologic Allergic/Immunologic ED: Denies mouth swelling, tongue swelling or urticaria EXAM Physical Exam Const Vital Signs: 07/24/24 08:23 07/24/24 10:45 Temperature 98.1 F 98.7 F Temperature Source Oral Pulse Rate 88 66 Respiratory Rate 16 16 Blood Pressure 129/80 H 122/86 H Blood Pressure Mean 96 98 Pulse Ox 98 98 Oxygen Delivery Method Room Air Positive well nourished, well developed and obese General Appearance ED: well developed and NAD Nutritional Appearance: obese HEENT Reports normocephalic, head/scalp atraumatic and moist mucous membranes Eyes PERRL and EOMs intact bilaterally Neck no lymphadenopathy, supple and no JVD Resp normal respiratory effort and clear to auscultation bilaterally Cardio regular rate, regular rhythm and no murmurs GI normal to inspection, nondistended, normoactive bowel sounds and non-tender Palpation: soft Back/Spine no CVA tenderness and normal ROM Extremity normal to inspection General Extremety ED: Negative for edema General Extremity: Negative for edema Neuro oriented x3 and CN's II-XII intact bilaterally Sensorium / Orientation: alert Motor Exam: strength 5/5 throughout Psych mental status grossly normal Mood & Affect: Negative for depressed or tearful Skin no rashes or lesions noted and no wounds MDM MDM MDM Narrative Medical decision making narrative: Differential diagnosis includes but not limited to ovarian cyst but no metrorrhagia PCOS Adarsh cyst anemia requiring transfusion thrombocytopenia coagulopathy Patient's white count is 5.5 hemoglobin 12.6 platelet count 216 test is negative. Pelvic ultrasound demonstrated a left ovarian cyst. Upon repeat examination patient tells me that the vaginal bleeding has stopped. Given the above workup I think the patient can be discharged home and following up with gynecology. Patient is comfortable with this plan History & Record Review Discussion w/independent historian: Patient Additional record(s) reviewed:: Prior outpatient record and Prior labs Lab Data Attestation: I reviewed the patient's lab results. Labs: Laboratory Results - last 24 hr 07/24/24 09:12 WBC 5.5 RBC 4.78 Hgb 12.6 Hct 37.9 MCV 79.3 L MCH 26.4 L MCHC 33.2 RDW Std Deviation 39.8 RDW Coeff of Danielle 13.9 Plt Count 216 MPV 11.8 Immature Gran % (Auto) 0.400 Neut % (Auto) 60.1 Lymph % (Auto) 30.8 [place] % (Auto) 5.7 Eos % (Auto) 2.4 Baso % (Auto) 0.6 Absolute Neuts (auto) 3.3 Absolute Lymphs (auto) 1.68 Nucleated RBC % 0 Serum , Qual NEGATIVE Radiography Diagnostic Testing: Clinical Impression(s) from Imaging Studies Transvaginal US 07/24/24 08:54 IMPRESSION: 1. Left ovarian cyst. 2. Negative examination, otherwise. Reading Location: [address] Discharge Plan Triage Chief Complaint: Vag Bleeding ED Provider: Zurdo Maldonado Dx/Rx/DC Orders Clinical Impression: Menometrorrhagia Instructions: ED Heavy Menstrual Bleeding Prescriptions: No Action metformin 500 mg tablet 500 mg PO DAILY spironolactone 25 mg tablet 25 mg PO DAILY Mounjaro 2.5 mg/0.5 mL pen injector 2.5 mg subcut QWEEK Rx Instructions: for 4 weeks valacyclovir 500 mg tablet 500 mg PO QDAY 30 Days Qty: 30 11RF Primary Care Provider: Tiffany Marks Referrals: Teresa Wilkinson MD [Med Staff - Active Staff] - As soon as possible MAST,BRIAN, SPRING FLOOR SERVICE WORKER [Non-Staff] - Print Language: Citizen Of [place] Disposition Disposition: Home, Self Care Discharge Date/Time: 07/24/24 10:46
[2024-07-24 09:22] LABS: Absolute Lymphocyte Count 1.68 X10^3/uL (0.83-4.51); Absolute Neutrophil Count 3.3 X10^3/uL (2.0-7.7); Basophil# 0.03 X10^3/uL; Basophil% 0.6 % (0-1); Eosinophil# 0.13 X10^3/uL; Eosinophils% 2.4 % (0-5); Hematocrit 37.9 % (37-47); Hemoglobin 12.6 g/dL (12.0-15.0); Lymphocyte # 1.68 X10^3/ul (0.83-4.51); Lymphocyte % 30.8 % (19-41); Mean Corp Hgb Conc 33.2 g/dL (32-36); Mean Corpuscular Hgb 26.4 pg (27.0-32.0); Mean Corpuscular Volume 79.3 fL (81-99); Mean Platelet Vol. 11.8 fl (6.2-12.0); Monocyte# 0.31 X10^3/uL; Monocyte% 5.7 % (0-10); NRBC Flagged by Analyzer 0 % (0-5); Neutrophil # 3.28 X10^3/uL (2.7-7.7); Neutrophil % 60.1 % (47-70); Platelet Count 216 K/mm3 (150-450); RBC Distribution Width CV 13.9 % (11.6-14.6); RBC Distribution Width SD 39.8 fl (35.1-43.9); Red Blood Count 4.78 M/mm3 (4.2-5.4); White Blood Count 5.5 K/mm3 (4.4-11.0)
[2024-07-24 09:41] LABS: Internal QC Validated? YES +Cl - CLEAR BKGD; Pregnancy, Serum, hCG Quali. NEGATIVE Negative
[2024-07-24 10:45] VITALS: BP 122/86; PULSE 66; RESP 16; TEMP 37.1; O2SAT 98
== END 2024-07-24 10:46 | disposition home or self-care (01) ==
PROVIDERS: Emergency Provider Emergency Medicine; PCP Internal Medicine; Visit Provider Emergency Medicine
DX: N92.1 Excessive and frequent menstruation with irregular cycle (principal); Z68.42 Body mass index [BMI] 45.0-49.9, adult; E66.9 Obesity, unspecified; E28.2 Polycystic ovarian syndrome; Z79.84 Long term (current) use of oral hypoglycemic drugs; Z79.85 Long-term (current) use of injectable non-insulin antidiabetic drugs
CPT/HCPCS: 36415; 76830; 84703; 85025; 99282

== ENCOUNTER → 2024-07-30 | Outpatient (CLI) | payer OTHER, SELFPAY ==
[2024-07-30 17:41] LABS: AST(SGOT) 50 U/L (<=31); Alanine Aminotransfer ALT/SGPT 53 U/L (<=34); Albumin, Serum 4.6 g/dL (3.5-5.0); Alkaline Phosphatase 92 U/L (35-104); Anion Gap 15 (5-15); BUN 9 mg/dL (4-19); Bilirubin, Direct 0.21 mg/dL (0.00-0.30); CRP 4.37 mg/L (0.0-3.0); Calcium,Total 9.7 mg/dL (7.6-11.0); Carbon Dioxide 22.8 mmol/L (21.0-32.0); Chloride 101 mmol/L (98-108); Creatinine, Serum 0.66 mg/dL (0.70-1.20); EST Glomerular Filtration Rate 124 (>60); Globulin 3.3 g/dL (2.2-4.2); Glucose 103 mg/dL (70-99); Hepatitis C Antibody Nonreactive (Nonreactive); Potassium 3.6 mmol/L (3.3-5.1); Protein, Total 7.9 g/dL (5.9-8.4); Sodium Level 139 mmol/L (133-145); Total Bilirubin 0.57 mg/dL (0.00-1.30); Vitamin D,25 Hydroxy 17.7 ng/mL (30-100)
[2024-08-01 15:08] LABS: Hepatitis A AB, Total Positive (Negative); Immunoglobulin A 164 mg/dL (87-352); t-Transglutaminase IgA <2 U/mL (0-3)
[2024-08-05 00:07] LABS: Beef <0.10 kU/L (Class 0); Chocolate <0.10 kU/L (Class 0); Codfish <0.10 kU/L (Class 0); Corn 0.14 kU/L (Class 0/I); Egg, Whole 0.12 kU/L (Class 0/I); Mussels <0.10 kU/L (Class 0); Peanut <0.10 kU/L (Class 0); Pork <0.10 kU/L (Class 0); Salmon <0.10 kU/L (Class 0); Shrimp <0.10 kU/L (Class 0); Soybean <0.10 kU/L (Class 0); Tuna <0.10 kU/L (Class 0); Wheat 0.33 kU/L (Class I)
== END | disposition home or self-care (01) ==
LOC: LAB 15:34
PROVIDERS: PCP Internal Medicine; Referring Provider Nurse Practitioner Acute Care; Visit Provider Nurse Practitioner Acute Care
DX: R19.7 Diarrhea, unspecified (principal); R15.2 Fecal urgency; R10.30 Lower abdominal pain, unspecified; K76.0 Fatty (change of) liver, not elsewhere classified; R11.2 Nausea with vomiting, unspecified; R14.2 Eructation; R12 Heartburn; R15.9 Full incontinence of feces
CPT/HCPCS: 36415; 80048; 80076; 82306; 82784; 83516; 86003; 86005; 86140; 86708; 86803

== ENCOUNTER → 2024-08-05 | Outpatient (CLI) | payer OTHER, SELFPAY ==
--- NOTE | 2024-08-05 07:24 | US_ITS ---
PROCEDURE: ABD LIMITED W/ ELASTOGRAPHY REASON FOR EXAM: ADD SPLEEN PLEASE COMPARISON: None. TECHNIQUE: Right upper quadrant abdominal ultrasound. Ike ElastQ Imaging shear wave elastography for non-invasive assessment of liver tissue stiffness. Ike EPIQ Elite. FINDINGS: LIVER: Size: Enlarged (hepatomegaly) Length: 23.3 cm Echotexture: Diffusely echogenic suggesting fatty infiltration Contour: Normal Lesions: None identified Elastography: EQI Med: 6.9 kPa EQI Med Rusty: 1.51 m/s IQR/Med: 21.7 %* GALLBLADDER: Normal COMMON BILE DUCT: Normal measuring 6 mm. . PANCREAS: Normal Visualized portions of the right kidney are unremarkable. No right upper quadrant ascites. Mild splenomegaly. The spleen measures 13.9 cm 6.1 cm 7.3 cm. US/ABD Limited w/ Elastography IMPRESSION: [id number] hepatic fibrosis. Splenomegaly. Hepatomegaly and diffuse fatty infiltration of the liver. Reference Values: SRU <1.37 m/s (5.7kPa): No to mild fibrosis 1.37 m/s - 2.2 m/s: Moderate to severe fibrosis >2.2 m/s (15kPa): Significant fibrosis / cirrhosis METAVIR Score F2 or higher: 1.34 m/s (5.7kPa) F3 or higher: 1.55 m/s (7.3kPa) F4: 1.80 m/s (10kPa) * If the IQR/Med is >30%, the variance in the measurements is a large and the a ccuracy of the measurement may be in question. Reading Location: [place] [address]
== END | disposition home or self-care (01) ==
LOC: US 07:23
PROVIDERS: PCP Internal Medicine; Referring Provider Nurse Practitioner Acute Care; Visit Provider Nurse Practitioner Acute Care
DX: R19.7 Diarrhea, unspecified (principal); R15.2 Fecal urgency; R15.9 Full incontinence of feces; R10.30 Lower abdominal pain, unspecified; R11.2 Nausea with vomiting, unspecified; R14.2 Eructation; R12 Heartburn; K76.0 Fatty (change of) liver, not elsewhere classified
CPT/HCPCS: 76705; 76981

== ENCOUNTER → 2024-09-02 | Outpatient (CLI) | payer OTHER, SELFPAY ==
[2024-09-02 14:29] LABS: AST(SGOT) 65 U/L (<=31); Alanine Aminotransfer ALT/SGPT 68 U/L (<=34); Albumin, Serum 4.4 g/dL (3.5-5.0); Alkaline Phosphatase 91 U/L (35-104); Bilirubin, Direct 0.17 mg/dL (0.00-0.30); Globulin 3.6 g/dL (2.2-4.2)
== END | disposition home or self-care (01) ==
LOC: LAB 13:21
PROVIDERS: PCP Internal Medicine; Referring Provider Nurse Practitioner Acute Care; Visit Provider Nurse Practitioner Acute Care
DX: K76.0 Fatty (change of) liver, not elsewhere classified (principal)
CPT/HCPCS: 36415; 80076

== ENCOUNTER → 2024-09-10 | Outpatient (CLI) | payer OTHER, SELFPAY ==
[2024-09-10 13:00] LABS: Iron 54 ug/dL (50-170); Iron Binding Capacity,Total 428 ug/dL (250-450); Iron Binding Capacity,Unsat 374 ug/dL (228-428)
--- OUTSIDE RECORDS SUMMARY | 2024-09-10 19:43 | XMS RPT_ITS | CCD ---
Author Organization [facility] Care Team Providers Care Complaint Manager Name Role Phone AUSTEN, WALTER Unavailable Unavailable AUSTEN, WALTER Unavailable Unavailable AUSTEN, WALTER Unavailable Unavailable PCP, NO Unavailable Unavailable PCP, NO Unavailable Unavailable KORINA RAMIREZ MD Unavailable Unavailable KORINA RAMIREZ MD Unavailable Unavailable PCP, NO Unavailable Unavailable PCP, NO Unavailable Unavailable KORINA RAMIREZ MD Unavailable Unavailable Sara Walters Unavailable SARA WALTERS Unavailable Unavailable ZACK, LYDIA NOOR Unavailable Unavailable ZACK, LYDIA NOOR Unavailable Unavailable SARA WALTERS Unavailable Unavailable LIBERTAD DONNELLY Admitting Unav ailable LIBERTAD DONNELLY Attending Unav ailable Sara Walters Primary Care Unavailable SARA WALTERS Consulting Unavailable Sara Walters Primary Care Provider WILLOW MOSCOSO Referring Unavailable WILLOW MOSCOSO Admitting Unavailable WILLOW MOSCOSO Attending Unavailable PHYSICIAN, NONE Primary Care Physician Unavailab le MAST MOTOR POOL DRIVER-TRIAGE LICENSED PRACTICAL NURSE, MICHELLE Primary Care Physician [phone] PHYSICIAN, NONE Primary Care Unavailable ANDREEA BEJARANO, DR BLAYNE Parikh Attending Unavailabl IVANA Lima MD Attending Unavail able MAST MOTOR POOL DRIVER-TRIAGE LICENSED PRACTICAL NURSE, MICHELLE Primary Care Unavailabl e MARTELL BEJARANO, DR ZEYNEP Nichols Attending Unavai lable MAST MOTOR POOL DRIVER-TRIAGE LICENSED PRACTICAL NURSE, MICHELLE Primary Care Unavailabl e PHYSICIAN, NONE Primary Care Unavailable ANDREEA BEJARANO, DR BLAYNE Parikh Attending Unavailabl michael SANTANA MD, DR SHAW Attending Unavailab le MAST MOTOR POOL DRIVER-TRIAGE LICENSED PRACTICAL NURSE, MICHELLE Primary Care Unavailabl e DERIK MOTOR POOL DRIVER-TRIAGE LICENSED PRACTICAL NURSE, ARACELIS Attending Unavailab le MAST MOTOR POOL DRIVER-TRIAGE LICENSED PRACTICAL NURSE, MICHELLE Primary Care Unavailabl e DERIK MOTOR POOL DRIVER-TRIAGE LICENSED PRACTICAL NURSE, SAYEDA Attending Unavailab le MAST MOTOR POOL DRIVER-TRIAGE LICENSED PRACTICAL NURSE, MICHELLE Primary Care Unavailabl e MAST MOTOR POOL DRIVER-TRIAGE LICENSED PRACTICAL NURSE, MICHELLE Attending Unavailabl e PHYSICIAN, NONE Primary Care Unavailable DERIK MOTOR POOL DRIVER-TRIAGE LICENSED PRACTICAL NURSE, SAYEDA Attending Unavailab le MAST MOTOR POOL DRIVER-TRIAGE LICENSED PRACTICAL NURSE, MICHLELE Primary Care Unavailabl e MAST MOTOR POOL DRIVER-TRIAGE LICENSED PRACTICAL NURSE, MICHELLE Attending Unavailabl e MAST MOTOR POOL DRIVER-TRIAGE LICENSED PRACTICAL NURSE, MICHELLE Primary Care Unavailabl e DERIK MOTOR POOL DRIVER-TRIAGE LICENSED PRACTICAL NURSE, EAGLEEDA Attending Unavailab le MAST MOTOR POOL DRIVER-TRIAGE LICENSED PRACTICAL NURSE, MICHELLE Primary Care Unavailabl e MARTELL BEJARANO, DR ZEYNEP Nichols Attending Unavai lable MAST MOTOR POOL DRIVER-TRIAGE LICENSED PRACTICAL NURSE, MICHELLE Primary Care Unavailabl e MAST MOTOR POOL DRIVER-TRIAGE LICENSED PRACTICAL NURSE, MICHELLE Primary Care Unavailabl e DERIK MOTOR POOL DRIVER-TRIAGE LICENSED PRACTICAL NURSE, EAGLEEDA Attending Unavailab le Health, Employee Attending Provider [phone] MAST EMBEDDED SOFTWARE DEVELOPER, MICHELLE Primary Care Provider [phone] Assessment, Health Risk Attending Provider Unava ilable Assessment, Health Risk Referring Provider Unava ilable Herlinda GEEK SQUAD AGENT-CLibertad Attending Provider Herlinda GEEK SQUAD AGENT-CLibertad Referring Provider Dr. Zurdo Maldonado DO Emergency Provider [phone] Selian BEJARANO, Dr. Allen Primary Care Provider [phone] MAST EMBEDDED SOFTWARE DEVELOPER, MICHELLE Referring Provider Thuan GEEK SQUAD AGENT-Ashley Hilario Attending Provider Dr. Zurdo Maldonado DO Attending Provider [phone] Thuan GEEK SQUAD AGENT-CAshley Referring Provider Selina BEJARANO, Dr. Allen Attending Provider Selina BEJARANO, Dr. Allen Referring Provider Aimee GEEK SQUAD AGENT-CSimin Attending Provider Assessment, Health Risk Referring Unavaila ble Assessment, Health Risk Attending Unavaila ble Tiffany Marks Primary Care Unavailable Tiffany Marks Primary Care Unavailable Ashley Larose Referring Unavailable Ashley Larose Attending Unavailable Libertad Pate Attending Unavailable MAST, MICHELLE Primary Care Unavailable MAST, MICHELLE Referring Unavailable Khadar Marksycia Primary Care Unavailable Ashley Larose Attending Unavailable MAST, MICHELLE Referring Unavailable Potwin, Tiffany Primary Care Unavailable Potwin, Tiffany Referring Unavailable Potwin, Tiffany Attending Unavailable Selina, Tiffany Primary Care Unavailable Potwin, Tiffany Referring Unavailable AimeeSimin berg Attending Unavailable MAST, MICHELLE Primary Care Unavailable Ashley Larose Attending Unavailable MAST, MICHELLE Referring Unavailable BarkmanLibertad Attending Unavailable Care Physician, No Primary Referring Unava ilable Care Physician, No Primary Primary Care Unava ilable MAST, MICHELLE Primary Care Unavailable MAST, MICHELLE Referring Unavailable Aimee, Simin Attending Unavailable Selina, Tiffany Primary Care Unavailable ThuanAshley byrne Attending Unavailable Thuan, Ashley Referring Unavailable Barkman, Libertad Attending Unavailable Barkman, Libertad Referring Unavailable MAST, MICHELLE Primary Care Unavailable MAST, MICHELLE Primary Care Unavailable Barkman, Libertad Referring Unavailable BarkmanBahmanLibertad Attending Unavailable MAST, MICHELLE Primary Care Unavailable Barkman, Libertad Referring Unavailable BarkmanBahmanLibertad Attending Unavailable Potwin, Tiffany Primary Care Unavailable Zurdo Maldonado Attending Unavailable Barkman, Libertad Attending Unavailable Barkman, Libertad Referring Unavailable MAST, MICHELLE Primary Care Unavailable Selina, Tiffany Primary Care Unavailable Ashley Larose Attending Unavailable ThuanAshley Referring Unavailable Assessment, Health Risk Attending Unavaila ble MAST, MICHELLE Primary Care Unavailable Assessment, Health Risk Referring Unavaila ble Allergies Allergy Classification Reported Allergen(s) Allergy Type Date of Onset Reaction(s) Facility (1 source) Neomycin; Translations: [neomycin ophthalmic] Drug Allergy [facility] Repository Medications Current Medications Medication Drug Class(es) Dates Sig (Normalized) Sig (Original) acyclovir 400 mg oral tablet (1 source) Herpesvirus Nucleoside Analog DNA Polymerase Inhibitor, Herpes Simplex Virus Nucleoside Analog DNA Polymerase Inhibitor, Herpes Zoster Virus Nucleoside Analog DNA Polymerase Inhibitor Start: 06-28-2015 acyclovir (ZOVIRAX) 400 MG tablet 24 hr buPROPion hydrochloride 300 mg extended release oral tablet (1 source) Aminoketone Start: 06-27-2015 buPROPion (WELLBUTRIN XL) 300 MG 24 hr tablet busPIRone hydrochloride 5 mg oral tablet (10 sources) Start: 07-29-2024 End: 08-13-2024 take 1 tablet by mouth three times daily Buspirone 5 mg tablet Active 5 mg PO THREE TIMES A DAY 90 August 13, 2024 4:53pm calcium polycarbophil 625 mg oral tablet (7 sources) Start: 07-30-2024 Calcium Polycarbophil (Fibercon) 625 mg tablet Active 1250 mg PO daily 180 July 30, 2024 12:00am cephalexin 500 mg oral tablet (2 sources) Cephalosporin Antibacterial Start: 02-22-2023 End: 03-01-2023 cephalexin 500 mg oral tablet Dose : 500 mg = 1 tab(s), Oral, TID, X 7 day(s), # 21 tab(s), 0 Refill(s), 03/01/23 7:38:00 PM EST, 158 Start Date: 02/22/23 Stop Date: 03/01/23 Status: Ordered cetirizine hydrochloride 10 mg oral tablet (1 source) Histamine-1 Receptor Antagonist Start: 07-07-2015 cetirizine (ZYRTEC) 10 MG tablet cyclobenzaprine hydrochloride 10 mg oral tablet (1 source) Muscle Relaxant Start: 08-18-2017 take 1 tablet by mouth three times daily as needed for muscle spasms cyclobenzaprine 10 MG Tab tablet Take 1 tablet by mouth 3 times daily as needed for Muscle spasms. 15 tablet 0 08/18/2017 Active dicyclomine hydrochloride 10 mg oral capsule (9 sources) Anticholinergic Start: 07-30-2024 take 1 capsule by mouth three times daily Dicyclomine 10 mg capsule Active 10 mg PO THREE TIMES A DAY 90 July 30, 2024 12:00am Start: 06-26-2023 End: 07-03-2023 dicyclomine 10 mg oral capsu le Dose : 10 mg = 1 cap(s), Oral, QID, # 28 cap(s), 0 Refill(s) Start Date: 06/26/23 Stop Date: 07/03/23 Status: Ordered FLUoxetine 10 mg oral capsule (10 sources) Serotonin Reuptake Inhibitor Start: 07-29-2024 End: 08-13-2024 take 1 capsule by mouth once daily Fluoxetine (Prozac) 10 mg capsule Active 10 mg PO daily 30 August 13, 2024 4:54pm metFORMIN hydrochloride 500 mg oral tablet (20 sources) Biguanide Start: 07-29-2024 End: 08-13-2024 take 1 tablet by mouth twice daily Metformin 500 mg tablet Active 500 mg PO TWICE A DAY 60 2 August 13, 2024 4:54pm Start: 10-17-2023 End: 07-29-2024 take 1 tablet by mouth once daily Metformin 500 mg tablet Discontinued 500 mg PO DAILY October 17, 2023 12:00am July 29, 2024 3:32pm Start: 04-23-2023 MetFORMIN (Eqv -Glucophage XR) 500 mg oral tablet, EXTENDED RELEASE Dose : 500 mg = 1 tab(s), Oral, BID, # 60 tab(s), 11 Refill(s), Pharmacy: [facility]/pharmacy #[id number], PCOS (polycystic ovary syndrome) of bilateral ovaries, 170, cm, 04/20/23 16:05:00 EST, Height, kg, 04/20/23 16:05:00 EST, Dosing Weight Start Date: 04/23/23 Status: Ordered Start: 02-26-2023 MetFORMIN (Eqv -Glucophage XR) 500 mg oral tablet, EXTENDED RELEASE Dose : 500 mg = 1 tab(s), Oral, qDay, # 30 tab(s), 11 Refill(s), Pharmacy: [facility]/pharmacy #[id number], PCOS (polycystic ovary syndrome) of bilateral ovaries, 172, cm, 02/23/23 15:59:00 EST, Height, kg, 02/23/23 15:59:00 EST, Dosing Weight Start Date: 02/26/23 Status: Ordered Start: 10-22-2020 take 1000 mg by mout h twice daily Metformin Active 1000 MG PO TWICE A DAY October 22, 2020 12:00am take 1 tablet by doyle th twice daily metformin 500 MG Tab tablet Take 500 mg by mouth 2 times daily. 0 Active montelukast 10 mg oral tablet (1 source) Leukotriene Receptor Antagonist Start: 06-27-2015 montelukast (SINGULAIR) 10 mg tablet naproxen 500 mg oral tablet (1 source) Nonsteroidal Anti-inflammatory Drug Start: 10-19-2017 take 1 tablet by mouth twice daily as needed naproxen 500 MG Tab tablet Take 1 tablet by mouth 2 times daily as needed. 20 tablet 0 10/19/2017 Active Norgestimate-Eth Estradiol (SPRINTEC 28 PO) (1 source) Norgestimate-Eth Estradiol (SPRINTEC 28 PO) Take by mouth. 0 Active MV-Min-Fe Fum-FA-DHA ( 1 PO) (1 source) MV-Min- Fe Fum-FA-DHA ( 1 PO) Take by mouth. 0 Active RABEprazole sodium 20 mg delayed release oral tablet (7 sources) Proton Pump Inhibitor Start: 07-30-2024 take 1 tablet by mouth once daily Rabeprazole 20 mg tablet,delayed release (DR/EC) Active 20 mg PO daily 90 July 30, 2024 12:00am Semaglutide (Weight Loss) (3 sources) Start: 08-18-2024 Semaglutide (Weight Loss) (Wegovy) 0.25 mg/0.5 mL pen injector Active 0.25 mg SC EVERY WEEK 2 August 18, 2024 12:00am administer weeks 1 through 4 of therapy spironolactone 25 mg oral tablet (20 sources) Aldosterone Antagonist Start: 10-17-2023 End: 08-13-2024 take 1 tablet by mouth once daily Spironolactone 25 mg tablet Active 25 mg PO DAILY 30 August 13, 2024 4:54pm Start: 06-25-2023 spironolactone 25 mg oral tablet Dose : 25 mg = 1 tab(s), 0 Refill(s) Start Date: 06/25/23 Status: Ordered Start: 04-20-2023 spironolactone 25 mg oral tablet Dose : 25 mg = 1 tab(s), Oral, BID, Take with food, # 30 tab(s), 11 Refill(s), Pharmacy: [facility]/pharmacy #[id number], PCOS (polycystic ovary syndrome) of bilateral ovaries Hirsutism, 170, cm, 04/20/23 16:05:00 EST, Height, kg, 04/20/23 16:05:00 EST, Dosing Weight Start Date: 04/20/23 Status: Ordered Start: 02-26-2023 spironolactone 25 mg oral tablet Dose : 25 mg = 1 tab(s), Oral, qDay, Take with food, # 30 tab(s), 11 Refill(s), Pharmacy: [facility]/pharmacy #[id number], PCOS (polycystic ovary syndrome) of bilateral ovaries Hirsutism, 172, cm, 02/23/23 15:59:00 EST, Height, kg, 02/23/23 15:59:00 EST, Dosing Weight Start Date: 02/26/23 Status: Ordered Start: 07-29-2015 spironolactone (ALDACTONE) 50 MG tablet tranexamic acid 650 mg oral tablet (3 sources) Antifibrinolytic Agent Start: 09-01-2024 take 2 tablets by mouth three times daily Tranexamic Acid 650 mg tablet Active 1300 mg PO THREE TIMES A DAY 60 2 September 01, 2024 12:00am valACYclovir 500 mg oral tablet (20 sources) Herpesvirus Nucleoside Analog DNA Polymerase Inhibitor, Herpes Simplex Virus Nucleoside Analog DNA Polymerase Inhibitor, Herpes Zoster Virus Nucleoside Analog DNA Polymerase Inhibitor Start: 05-26-2024 take 1 tablet by mouth once daily Valacyclovir 500 mg tablet Active 500 mg PO daily 30 30 May 26, 2024 7:05am HSV Start: 02-15-2024 End: 05-26-2024 take 1 tablet by mouth twice daily Valacyclovir 500 mg tablet Discontinued 500 mg PO TWICE A DAY 10 5 3 February 15, 2024 1:23pm May 26, 2024 7:06am HSV Start: 12-19-2023 End: 12-22-2023 take 1 tablet by mouth twice daily Valacyclovir 500 mg tablet Discontinued 500 mg PO TWICE A DAY 6 3 December 19, 2023 4:08pm December 21, 2023 12:00am December 22, 2023 12:15am HSV Start: 05-15-2023 valACYclovir 1 g oral tablet Dose : 1 gram(s) = 1 tab(s), TAKE 1 TABLET BY MOUTH EVERY DAY Start Date: 05/15/23 Status: Ordered Start: 03-26-2023 End: 04-25-2023 valACYclovir 1 g oral tablet Dose : 1 gram(s) = 1 tab(s), Oral, qDay, X 30 day(s), # 30 tab(s), 0 Refill(s), 04/25/23 9:41:00 AM EST, Pharmacy: [facility]/pharmacy #[id number], 172, cm, 02/23/23 15:59:00 EST, Height, 133.4, kg, 02/23/23 15:59:00 EST, Dosing Weight Start Date: 03/26/23 Stop Date: 04/25/23 Status: Ordered Start: 02-23-2023 valACYclovir 1 g oral tablet 0 Refill(s), 158 Start Date: 02/23/23 Status: Ordered Start: 10-22-2020 End: 10-17-2023 take 1 tablet by mouth once daily Valacyclovir 500 mg tablet Discontinued 500 mg PO DAILY October 22, 2020 12:00am October 17, 2023 11:35am HSV Completed/Discontinued Medications Medication Drug Class(es) Dates Sig (Normalized) Sig (Original) 0.4 ml enoxaparin sodium 100 mg/ml prefilled syringe (11 sources) Low Molecular Weight Heparin Start: 02-05-2022 End: 10-17-2023 Enoxaparin 40 mg/0.4 mL Syringe Discontinued 40 mg SC DAILY 16.8 42 February 05, 2022 1:00am October 17, 2023 11:35am Please supply sharps container, alcohol wipes, and needles/syringes ondansetron 4 mg disintegrating oral tablet (3 sources) Serotonin-3 Receptor Antagonist Start: 06-25-2023 End: 06-28-2023 ondansetron 4 mg oral tablet, disintegrating Dose : 4 mg = 1 tab(s), Oral, q6hr, PRN as needed for nausea/vomiting, # 12 tab(s), 0 Refill(s), Pharmacy: [facility]/pharmacy #[id number], Nausea with vomiting, 173.8, cm, 06/25/23 16:22:00 EDT, Height, kg, 06/25/23 16:22:00 EDT, Dosing Weight Start Date: 06/25/23 Stop Date: 06/28/23 Status: Ordered Start: 04-03-2023 Zofran 4 mg or al tablet Dose : 4 mg = 1 tab(s), Oral, q8h, PRN Nausea/Vomiting, # 15 tab(s), 0 Refill(s) Start Date: 04/03/23 Status: Ordered oxyCODONE hydrochloride 5 mg oral tablet (11 sources) Opioid Agonist Start: 02-05-2022 End: 10-17-2023 take 1 tablet by mouth every six hours as needed for pain Oxycodone 5 mg Tablet Discontinued 5 mg PO EVERY 6 HOURS NEEDED as needed for Pain Score 7-10 16 4 0 February 05, 2022 October 17, 2023 11:34am Acute postoperative pain Other acute postprocedural pain Pnv No.[id number]-Ep a-Fish ( Gummies) 400 mcg-35 mg- 25 mg-5 mg Tablet,Chewable (16 sources) Start: 11-26-2021 End: 10-17-2023 Pnv No.[id number]-Ip-Bd1-Dha-Epa -Fish ( Gummies) 400 mcg-35 mg- 25 mg-5 mg Tablet,Chewable Discontinued 2 {tbl} PO DAILY November 26, 2021 12:00am October 17, 2023 11:34am Start: 11-26-2021 End: 10-17-2023 Pnv No.[id number]-Lw-[id number]-Dha-Epa-Fi sh ( Gummies) 400 mcg-35 mg- 25 mg-5 mg Tablet,Chewable Discontinued 2 {tbl} PO DAILY November 26, 2021 12:00am October 17, 2023 11:34am Start: 11-26-2021 take 2 tablets by mo uth once daily Pnv No.[id number]-Qu-Gr6-Sjo-Luu-Onup ( Gummies) 400 mcg-35 mg- 25 mg-5 mg Tablet,Chewable Active 2 TABLET PO DAILY November 25, 2021 11:00pm Start: 11-26-2021 take 2 tablets by mo uth once daily Pnv No.505-[id number]-[id number]-Pdr-Ddf-Ztpr ( Gummies) 400 mcg-35 mg- 25 mg-5 mg Tablet,Chewable Active 2 TABLET PO DAILY November 26, 2021 12:00am sertraline 50 mg oral tablet (16 sources) Serotonin Reuptake Inhibitor Start: 11-26-2021 End: 10-17-2023 take 1 tablet by mouth once daily Sertraline (Zoloft) 50 mg Tablet Discontinued 50 mg PO DAILY November 26, 2021 12:00am October 17, 2023 11:35am anxieity/sleep Tirzepatide (Mounjaro) 2.5 mg/0.5 mL pen injector (13 sources) Start: 08-13-2024 End: 08-18-2024 Tirzepatide (Mounjaro) 2.5 mg/0.5 mL pen injector Discontinued 2.5 mg SC EVERY WEEK 2 0 August 13, 2024 3:14pm August 18, 2024 4:51pm for 4 weeks Start: 08-13-2024 Tirzepatide (M ounjaro) 2.5 mg/0.5 mL pen injector Active 2.5 mg SC EVERY WEEK 2 August 13, 2024 3:14pm for 4 weeks Start: 10-17-2023 End: 07-29-2024 Tirzepatide (Mounjaro) 2.5 m g/0.5 mL pen injector Discontinued 2.5 mg SC EVERY WEEK October 17, 2023 12:00am July 29, 2024 3:31pm for 4 weeks Start: 10-17-2023 Tirzepatide (M ounjaro) 2.5 mg/0.5 mL pen injector Active 2.5 mg SC EVERY WEEK October 17, 2023 12:00am for 4 weeks Problems Active Problems Problem Classification Problem Date Documented Da te Episodic/Chronic Abdominal pain (20 sources) Abdominal pain in ; Translations: [Right upper quadrant pain] Onset: 02-22-2023 05-04-2019 Episodic Acquired foot deformities (8 sources) Acquired pes planus 02-23-2023 Episodic Administrative/social admission (16 sources) Patient encounter status; Translations: [Encounter for pre-employment examination] 07-21-2020 Episodic Anxiety disorders (3 sources) Mixed anxiety and depressive disorder; Translations: [Anxiety disorder, unspecified] 08-13-2024 Chronic Biliary tract disease (20 sources) Biliary colic; Translations: [Calculus of bile duct without cholangitis or cholecystitis without obstruction] 05-04-2019 Episodic Blindness and vision defects (7 sources) Amblyopia of left eye; Translations: [Unspecified amblyopia, left eye] 07-29-2024 Episodic Conditions associated with dizziness or vertigo (1 source) Dizziness and giddiness; Translations: [Dizziness and giddiness] Onset: 05-16-2023 Episodic Early or threatened labor (2 sources) labor without delivery, unspecified trimester; Translations: [ labor without delivery, unspecified trimester] Onset: 01-28-2022 Episodic Hepatitis (2 sources) Nonalcoholic steatohepatitis; Translations: [Nonalcoholic steatohepatitis (ACOSTA)] 09-05-2024 Chronic Hypertension complicating ; childbirth and the puerperium (12 sources) Severe pre-eclampsia; Translations: [Severe pre-eclampsia, unspecified trimester] Episodic Immunizations and screening for infectious disease (13 sources) Suspected disease caused by 2019-nCoV; Translations: [Suspected 2019-nCoV infection] 02-22-2021 Episodic Menstrual disorders (20 sources) Menorrhagia; Translations: [Excessive and frequent menstruation with regular cycle] Onset: 11-19-2023 10-17-2023 Chronic Comment on above: HCGx1 Nausea and vomiting (16 sources) Nausea and vomiting; Translations: [Nausea with vomiting, unspecified] Onset: 06-26-2023 Episodic Nutritional deficiencies (6 sources) Vitamin D deficiency; Translations: [Vitamin D deficiency, unspecified] Onset: 09-05-2024 09-05-2024 Chronic Other and unspecified benign neoplasm (20 sources) Hemangioma of liver; Translations: [Hemangioma of intra-abdominal structures] 05-04-2019 Episodic Other complications of ; puerperium affecting management of mother (1 source) delivery - delivered; Translations: [Encounter for delivery without indication] Episodic Other complications of ; puerperium affecting management of mother (1 source) Encounter for delivery without indication; Translations: [ delivery, without mention of indication, delivered, with or without mention of antepartum condition] Episodic Other complications of ; puerperium affecting management of mother (10 sources) Deliveries by ; Translations: [Encounter for delivery without indication] 02-17-2022 Episodic Other endocrine disorders (9 sources) Polycystic ovary syndrome; Translations: [Polycystic ovarian syndrome] 09-01-2024 Chronic Other female genital disorders (13 sources) Vaginal bleeding; Translations: [Abnormal uterine and vaginal bleeding, unspecified] 10-22-2020 Chronic Other female genital disorders (7 sources) Abnormal uterine and vaginal bleeding, unspecified; Translations: [Other specified noninflammatory disorders of vagina] Onset: 09-02-2024 Chronic Other female genital disorders (1 source) Abnormal uterine bleeding; Translations: [Abnormal uterine and vaginal bleeding, unspecified] Onset: 02-22-2023 Chronic Other female genital disorders (9 sources) Vaginal discharge; Translations: [Other specified noninflammatory disorders of vagina] 10-17-2023 Episodic Other gastrointestinal disorders (1 source) Irritable bowel syndrome 07-09-2023 Chronic Other gastrointestinal disorders (17 sources) Diarrhea; Translations: [Diarrhea, unspecified] Onset: 06-26-2023 Episodic Other gastrointestinal disorders (5 sources) Diarrhea, unspecified; Translations: [Diarrhea, unspecified] Onset: 10-24-2017 Episodic Other gastrointestinal disorders (14 sources) Heartburn; Translations: [Heartburn] 07-30-2024 Episodic Other gastrointestinal disorders (14 sources) Burping; Translations: [Eructation] 07-30-2024 Episodic Other gastrointestinal disorders (14 sources) Incontinence of feces; Translations: [Full incontinence of feces] 07-30-2024 Episodic Other gastrointestinal disorders (14 sources) Urgent desire for stool; Translations: [Fecal urgency] 07-30-2024 Episodic Other gastrointestinal disorders (1 source) Fecal urgency; Translations: [Fecal urgency] Onset: 07-30-2024 Episodic Other gastrointestinal disorders (1 source) Full incontinence of feces; Translations: [Full incontinence of feces] Onset: 07-30-2024 Episodic Other gastrointestinal disorders (1 source) Eructation; Translations: [Eructation] Onset: 07-30-2024 Episodic Other gastrointestinal disorders (1 source) Heartburn; Translations: [Heartburn] Onset: 07-30-2024 Episodic Other liver diseases (20 sources) Steatosis of liver; Translations: [Fatty (change of) liver, not elsewhere classified] 06-13-2020 Chronic Other liver diseases (10 sources) Fatty (change of) liver, not elsewhere classified; Translations: [Metabolic dysfunction-associate d steatotic liver disease (MASLD)] Onset: 09-08-2024 08-05-2024 Chronic Other liver diseases (7 sources) Hepatic fibrosis; Translations: [Hepatic fibrosis] 08-13-2024 Chronic Other nervous system disorders (2 sources) Acute postoperative pain; Translations: [Other acute postprocedural pain] 02-05-2022 Episodic Other nervous system disorders (1 source) Other acute postprocedural pain; Translations: [Other acute postoperative pain] Episodic Other nervous system disorders (3 sources) Paresthesia of left upper limb; Translations: [Paresthesia of skin] 08-13-2024 Episodic Other non-traumatic joint disorders (8 sources) Knee pain 02-23-2023 Episodic Other nutritional; endocrine; and metabolic disorders (11 sources) Body mass index 40+ - severely obese; Translations: [Morbid (severe) obesity due to excess calories] 02-23-2023 Chronic Other nutritional; endocrine; and metabolic disorders (8 sources) Morbid obesity 02-23-2023 Chronic Other nutritional; endocrine; and metabolic disorders (6 sources) Obesity; Translations: [Obesity, unspecified] 09-01-2024 Chronic Comment on above: watching diet, on wy govy/PCP Other nutritional; endocrine; and metabolic disorders (8 sources) Weight gain 02-23-2023 Episodic Other skin disorders (8 sources) Hirsutism 02-23-2023 Episodic Ovarian cyst (13 sources) Cyst of ovary; Translations: [Unspecified ovarian cyst, left side] Onset: 09-01-2024 10-30-2023 Episodic Residual codes; unclassified (3 sources) Immunization not carried out because of patient refusal; Translations: [COVID-19 vaccination declined] 08-13-2024 Episodic Sprains and strains (1 source) Sprain of left ankle; Translations: [Sprain of unspecified ligament of left ankle, initial encounter] Onset: 08-07-2023 Episodic Unclassified (9 sources) Patient encounter status 02-23-2023 Unclassified (8 sources) Polycystic ovary syndrome of bilateral ovaries 02-23-2023 Unclassified (1 source) Polycystic ovary syndrome Unclassified (1 source) Metabolic dysfunction-associate d steatotic liver disease (MASLD) Unclassified (1 source) Nonalcoholic steatohepatitis (ACOSTA) Unclassified (1 source) E55.9 - Vitamin D deficiency, unspecified,E66.813 - Obesity, class 3,Z68.42 - Body mass index [BMI] 45.0-49.9, adult,E28.2 - Polycystic ovarian syndrome,K76.0 - Fatty (change of) liver, not elsewhere classified,K75.81 - Nonalcoholic steatohepatitis (ACOSTA) Urinary tract infections (20 sources) Urinary tract infectious disease; Translations: [Urinary tract infection, site not specified] Onset: 02-22-2023 06-13-2020 Episodic Viral infection (12 sources) Genital herpes simplex; Translations: [Herpesviral infection of urogenital system, unspecified] 10-01-2023 Chronic Viral infection (20 sources) Viral wart, unspecified; Translations: [Acute viral disease] Onset: 04-17-2017 03-02-2021 Episodic Past or Other Problems Problem Classification Problem Date Documented Date Episodic/Chronic Malaise and fatigue (10 sources) Fatigue; Translations: [Other fatigue] Onset: 10-17-2023 10-17-2023 Episodic Other female genital disorders (1 source) Other specified noninflammatory disorders of vagina; Translations: [Other specified noninflammatory disorders of vagina] Onset: 10-30-2023 Episodic Other skin disorders (3 sources) Other hypertrophic disorders of the skin; Translations: [OTHER HYPERTROPHIC DISORDERS SKIN] Onset: 04-12-2017 Episodic Other upper respiratory infections (3 sources) Acute pharyngitis, unspecified; Translations: [ACUTE PHARYNGITIS UNSPECIFIED] Onset: 04-14-2017 Episodic Results Test Name Value Interpretation Reference Range Facility Gastroenterology Visit Repor ton 09-05-2024 Gastroenterology Visit Report [facility] Gastroenterology [address] [facility] [place] [address] OFFICE VISIT Date of Service: 09/05/24 MR#: [id number] Acct: [id number] Name: JUANITA PAULINO Rep #: [id number] : 2000 Provider: DELMIS jones Age/Sex: 24/F [place] [facility] [place]: Signed Intake Vital Signs 07/30/24 08:31 09/01/24 13:06 09/05/24 08:08 Height 5 ft 7 in 5 ft 7 in 5 ft 7 in Weight: 322 lb 2 oz BMI 50.4 BP 116/78 Blood Pressure Location Lt brachial Position Sitting Pulse 88 Pulse Source Monitor Pulse Oximetry (%) 96 Oxygen Delivery Method room air Intake Visit Reasons: FU LUZMARIA VALDOVINOS Chief Complaint: follow-up Allergies No Known Allergies Allergy (Verified 09/01/24 12:58) Nurse's Note: OV 09/05/24 Pt here for a f/u and reports diarrhea, constipation, abdominal pain, gas and bloating. [facility] Medical History HSV-2 (herpes simplex virus 2) infection IBS (irritable bowel syndrome) Seasonal allergies Pre-eclampsia History of pre-term labor Infertility PCOS (polycystic ovarian syndrome) Surgical History S/P section S/P nasal septoplasty History of strabismus surgery History of tonsillectomy Family History Mother Colon cancer 40s Thyroid disorder Arthritis Depression Type 2 diabetes mellitus Grandmother Arthritis Sister Hormone imbalance pcos Depression Endometriosis Grandmother Colon cancer Sister Endometriosis Grandfather Colon cancer Lung cancer Social History adopted: No household members: spouse and children housing: house number of children: 3 current occupational status: employed 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 [employer] 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 travel: No sexually active: Yes Smoking Status: Never smoker second hand exposure: No alcohol intake: never substance use type: does not use caffeine: No eating out: rarely or never during the past year weight has: increased > 10 lbs what type of physical activity do you participate in: other details: different work outs frequency: 3-4 times per week duration: 15-30 minutes/day seatbelt use: always do you feel safe at home: Yes HPI HPI Chief Complaint: follow-up Details: OV 07/30/2024 24y/o female presents for initial consultation with complaints of heartburn, lower abdominal pain, diarrhea, urgency and fecal incontinence. Symptoms have been ongoing for a few years and have progressively worsened. She denies any bleeding or weight loss. She reports lower abdominal pain can be severe enough at times she experiences emesis. PMH is significant for PCOS. Denies any new medications or dietary changes. She reports a remote history of ABD US revealing liver steatosis. Labs revealed mildly elevated AST September 2023. I have ordered labs, stool testing, ABD US and recommended FODMAP diet. She will start rabeprazole daily and dicyclomine PRN. She will follow-up in one month. Note: MD Insider speech recognition level vial sealer software was used to create portions of this document. Sound-alike and misspelled words, as well as other level vial sealer errors may be contained in the documentation. Patient Instructions: Fibercon 2 tablets once daily with 8 ounces of water after a meal. May take up to 3 weeks for symptom improvement. Start a probiotic ([employer], [employer] or MentiNova) once daily. These are all multispecies probiotics, pick the cheapest one. Complete stool testing (P4 Dx) Complete ABD US Complete Labs FODMAP Diet Trial dicyclomine (Bentyl) for abdominal pain and cramping - discussed potential anticholinergic side effects s/e including drowsiness, blurred vision and dry mouth Start rabeprazole (Aciphex) once daily, take every morning on an empty stomach 30 minutes before first meal Follow-up in one month HAV Total Ab: 07/30/2024 positive HBVsAg: HBVsAb: 07/29/2024 reactive HBV Core Ab Total: HCV Ab: 07/30/2024 negative CBC: 07/24/2024 HGB 12.6, PLT 216 CMP: 09/02/2024 AST 65, ALT 68, ALP 91, Tbili 0.58, Albumin 4.4 (AST and ALT have increased from 50/53 one month prior, respectfully) Vitamin (low) 17.7 ELF: 09/02/2024 pending ABD US: 08/05/2024 enlarged and fatty liver, top normal common bile duct Elastography: 08/05/2024 kPa of 6.9 raising the suspicion for mild to moderate fibrosis WEIGHT: FOOD ALLERGEN PANEL: elevation in corn, cow's milk, egg, and wheat (all class I except cow's milk is class II) TTG IgA: 07/30/2024 negative Total IgA: 07/30/2024 negative - when she drinks milk and eats corn the symptoms are worse - since started the dicyclomine she is not having (more content not included)... Normal [facility] [id number] 09-05-2024 [facility] Misc. COMMENT Normal . [facility] Comment on above: Order Comment: [id number] [id number] TIGER RF Result Comment: Test Ordered: [id number] Enhanced Liver Fibrosis (ELF) ELF(TM) Score 8.18 BN Reference Range: <9.80 ELF(TM) Score Interpretation: Risk cut-offs to assess the likelihood of progression to cirrhosis and liver-related clinical events within 3.9 years following baseline ELF score (IQR: 14.0-22.4 months)*: Lower risk < 9.80 Mid risk 9.80 - 11.29 Higher risk >11.29 Note: The ELF(TM) Score is a unitless numerical value. *Joshua SA, Roberto VW, Graham T, et al. Selonsertib for patients with bridging fibrosis or compensated cirrhosis due to ACOSTA: Results from randomized phase III STELLAR trials. J Hepatol. 2020 Aug;73(1):26-39. Performed at: - [facility] [id number] Drapery Inspector: Juana Lee MD, Phone: [phone] Performed at: [facility] [id number] Drapery Inspector: Gilles Carey PhD, Phone: [phone] Performed By: #### L 3410.9992, L525.3405 ####[facility] [address] [place], [address] Bilirubin directOrdered By: Ashley Larose on 09-02-2024 Bilirubin.direct [Mass/Vol] 0.17 mg/dL 0.00-0.30 [facility] Comment on above: Hemolysis present, R esults could be affected. Bilirubin, totalOrdered By: Ashley Larose on 09-02-2024 Bilirubin [Mass/Vol] 0.58 mg/dL 0.00-1.30 [facility] Laboratory - Chemistry and C hemistry - challengeOrdered By: Ashley Larose on 09-02-2024 AST [Catalytic activity/Vol] 65 U/L High <32 [facility] Comment on above: Hemolysis present, R esults could be affected. Liver Profileon 09-02-2024 Albumin [Mass/Vol] 4.4 g/dL Normal 3.5-5.0 [facility] Comment on above: Performed By: #### L 3410.9992, L500.3400 ####[facility] [address] [place], [address] ALK PHOS 91 U/L Normal 35-104 [facility] Comment on above: Performed By: #### L 3410.9992, L500.3400 ####[facility] [address] [place], [address] ALT [Catalytic activity/Vol] 68 U/L High <=34 [facility] Comment on above: Performed By: #### L 3410.9992, L500.3400 ####[facility] [address] [place], [address] AST [Catalytic activity/Vol] 65 U/L High <=31 [facility] Comment on above: Result Comment: Hemo lysis present, Results??could be affected. ?? Performed By: #### L 3410.9992, L500.3400 ####[facility] [address] [place], [address] Bilirubin [Mass/Vol] 0.58 mg/dL Normal 0.00-1.30 [facility] Comment on above: Performed By: #### L 3410.9992, L500.3400 ####[facility] [address] [place], [address] Bilirubin.direct [Mass/Vol] 0.17 mg/dL Normal 0.00-0.30 [facility] Comment on above: Result Comment: Hemo lysis present, Results??could be affected. ?? Performed By: #### L 3410.9992, L500.3400 ####[facility] [address] [place], [address] Globulin (S) [Mass/Vol] 3.6 g/dL Normal 2.2-4.2 [facility] Comment on above: Performed By: #### L 3410.9992, L500.3400 ####[facility] [address] [place], [address] T PROT 8.0 g/dL Normal 5.9-8.4 [facility] Comment on above: Performed By: #### L 3410.9992, L500.3400 ####[facility] [address] [place], [address] Serum globulin measurementOr dered By: Ashley Larose on 09-02-2024 Globulin (S) [Mass/Vol] 3.6 g/dL 2.2-4.2 [facility] Serum or plasma alanine evans otransferase (ALT) measurementOrdered By: Ashley Larose on 09-02-2024 ALT [Catalytic activity/Vol] 68 U/L High <35 [facility] Serum or plasma albumin benita urement (mass/volume)Ordered By: Ashley Larose on 09-02-2024 Albumin [Mass/Vol] 4.4 g/dL 3.5-5.0 [facility] Serum or plasma alkaline angelina sphatase measurementOrdered By: Ashley Larose on 09-02-2024 ALP [Catalytic activity/Vol] 91 U/L 35-104 [facility] Total proteinOrdered By: Brandy Larose on 09-02-2024 Protein [Mass/Vol] 8.0 g/dL 5.9-8.4 [facility] [employer] Office Visit Reporton 09-01-2024 [employer] Office Visit Report [facility] [address], [address] [place] [address] OFFICE VISIT Date of Service: 09/01/24 MR#: [id number] Acct: [id number] Name: JUANITA PAULINO Rep #: [id number] : 2000 Provider: DELMIS demarco Age/Sex: 24/F [place] [facility] [place]: Signed Intake Vital Signs 08/13/24 14:45 09/01/24 12:58 09/01/24 13:06 Height 5 ft 7 in 5 ft 7 in 5 ft 7 in Weight: 323 lb 317 lb 8 oz BMI 50.5 49.7 BP 120/84 H 128/84 H Blood Pressure Location Lt brachial Position Sitting Respiration 18 Pulse 83 Pulse Source Monitor Temp 98.9 F Pulse Oximetry (%) 96 Oxygen Delivery Method room air Intake Visit Reasons: Bleeding Chief Complaint: AUB Shelter Director Required: No Is patient in pain?: No Allergies No Known Allergies Allergy (Verified 09/01/24 12:58) Medications ???Medication ???Instructions ???Recorded ???Confirmed ???Type valacyclovir 500 mg tablet 500 mg PO QDAY HSV 30 days #30 tab s 05/26/24 09/01/24 Rx calcium polycarbophil 625 mg 1,250 mg (2 x 625 mg) PO QDAY #180 07/30/24 09/01/24 Rx tablet (FiberCon) tabs dicyclomine 10 mg capsule 10 mg PO TID #90 caps 07/30/24 Rx rabeprazole 20 mg tablet,delayed 20 mg PO QDAY #90 tabs 07/30/24 Rx release buspirone 5 mg tablet 5 mg PO TID #90 tabs 08/13/2408/19 Rx fluoxetine 10 mg capsule (Prozac) 10 mg PO QDAY #30 caps 08/13/24 0 09/01/24 Rx metformin 500 mg tablet 500 mg PO BID #60 tabs 08/13/24 Rx spironolactone 25 mg tablet 25 mg PO DAILY #30 tabs 08/13/24 0 09/01/24 Rx semaglutide (weight loss) 0.25 0.25 mg (0.5 mL) subcut QWEEK #2 m L 08/18/24 09/01/24 Rx mg/0.5 mL subcutaneous pen injector (Wegovy) tranexamic acid 650 mg tablet 1,300 mg (2 x 650 mg) PO TID #60 0 09/01/24 09/01/24 Rx tabs Is last menstrual period known: Yes Last Menstrual Period: 08/13/24 Post menopausal: No Patient : No : No [facility] Medical History (Updated 09/01/24 @ 13:22 by Simin Yu GEEK SQUAD AGENT, GEEK SQUAD AGENT-C) HSV-2 (herpes simplex virus 2) infection IBS (irritable bowel syndrome) Seasonal allergies Pre-eclampsia History of pre-term labor Infertility PCOS (polycystic ovarian syndrome) Surgical History S/P section S/P nasal septoplasty History of strabismus surgery History of tonsillectomy Family History Mother Colon cancer 40s Thyroid disorder Arthritis Depression Type 2 diabetes mellitus Grandmother Arthritis Sister Hormone imbalance pcos Depression Endometriosis Grandmother Colon cancer Sister Endometriosis Grandfather Colon cancer Lung cancer Social History (Updated 09/01/24 @ 13:06 by Floresita Anglin) adopted: No household members: spouse and children housing: house number of children: 3 current occupational status: employed 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 Menses occur q28-33 days, lasting 5-7 days. Changing protection every 30-60 min. Has had clots as big as palm of hand. Seen in ED 07/24/24 for heavy menses, US indicated 3.4cm left ovarian simple cyst. States no intense pain but has pain across lower abdomen more consistent during menses. No contraception, used letrozole for last . Female Reproductive History Last Menstrual Period: 08/13/24 History 2 Elective abortions Hx Para 3 Spontaneous abortions Hx # Term Pregnancies Ectopic pregnancies Hx # Pregnancies Multiple births 1 # of living children 3 Past Pregnancies Del. Date Name GA/Weeks Outcome Route Bth Weight Gen Labor Lgth Anesthesia Del Locatwanda Provider MARÍA 12/23/18 Fausto 02/04/22 Cristela 02/04/22 [place] ROS Const Constitutional: Reports system reviewed and no additional complaints, except as documented Eyes Eyes: Reports system reviewed and no additional complaints, except as documented GI GI: Denies abdominal pain or change in bowel habits : Reports as per HPI Exam Const General: cooperative and no acute distress Nutritional Appearance: obese Orientation: oriented x3 HENMT (more content not included)... Normal [facility] Internal Medicine Office Vis iton 08-13-2024 Internal Medicine Office Visit [facility] [address] [place] [address] [place] [address] OFFICE VISIT Date of Service: 08/13/24 MR#: [id number] Acct: [id number] Name: JUANITA PAULINO Rep #: [id number] : 2000 Provider: Dr. Tiffany mock MD Age/Sex: 24/F Location: [facility] [place] Status: Signed Intake Vital Signs 07/30/24 08:31 08/13/24 14:45 Height 5 ft 7 in 5 ft 7 in Weight: 323 lb BMI 50.5 BP 120/84 H Blood Pressure Location Lt brachial Position Sitting Respiration 18 Pulse 83 Pulse Source Monitor Temp 98.9 F Temp Source Temporal Pulse Oximetry (%) 96 Oxygen Delivery Method room air Intake Visit Reasons: MED REFILL-OK PER DR MARKS Shelter Director Required: No Is patient in pain?: No Allergies No Known Allergies Allergy (Verified 08/13/24 14:26) Medications ???Medication ???Instructions ???Recorded ???Confirmed ???Type valacyclovir 500 mg tablet 500 mg PO QDAY HSV 30 days #30 tab s 05/26/24 08/13/24 Rx calcium polycarbophil 625 mg 1,250 mg (2 x 625 mg) PO QDAY #180 07/30/24 08/13/24 Rx tablet (FiberCon) tabs dicyclomine 10 mg capsule 10 mg PO TID #90 caps 07/30/24 Rx rabeprazole 20 mg tablet,delayed 20 mg PO QDAY #90 tabs 07/30/24 Rx release buspirone 5 mg tablet 5 mg PO TID #90 tabs 08/13/2407/21 Rx fluoxetine 10 mg capsule (Prozac) 10 mg PO QDAY #30 caps 08/13/24 0 08/13/24 Rx metformin 500 mg tablet 500 mg PO BID #60 tabs 08/13/24 Rx spironolactone 25 mg tablet 25 mg PO DAILY #30 tabs 08/13/24 0 08/13/24 Rx tirzepatide 2.5 mg/0.5 mL 2.5 mg (0.5 mL) subcut QWEEK #2 mL 08/13/24 08/13/24 Rx subcutaneous pen injector (Mounjaro) Nurse's Note: Needs metformin, aldactone,buspar, and fluoxetine. These meds were filled through previous pcp. Previous pcp Michelle Mello. Pt has correspondance w/ [facility], and [facility]. Pt has frequent nighttime awakenings for no reason, she is able to get back to sleep after awhile, gets 6-7 hours in total, Feels rested for the most part upon awakening. Pt had testing at [facility] and Ashley told pt weight loss option may be good for her. Pt states she was on mounjaro 5mg qweek in the past. Pt states insurance covered 1 month then didn't pt could not pay out of pocket, so she did not continue. [facility] Medical History (Updated 08/13/24 @ 16:[address] Tiffany Marks MD) HSV-2 (herpes simplex virus 2) infection IBS (irritable bowel syndrome) Seasonal allergies Pre-eclampsia History of pre-term labor Infertility PCOS (polycystic ovarian syndrome) Surgical History S/P section S/P nasal septoplasty History of strabismus surgery History of tonsillectomy Family History (Updated 08/13/24 @ 14:[address] Tiffany Marks MD) Mother Colon cancer 40s Thyroid disorder Arthritis Depression Type 2 diabetes mellitus Grandmother Arthritis Sister Hormone imbalance pcos Depression Endometriosis Grandmother Colon cancer Sister Endometriosis Grandfather Colon cancer Lung cancer Social History (Updated 08/13/24 @ 14:[address] 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 1. Little interest or pleasure in doing things: not at all 2. Feeling down, depressed, or hopeless: not at all 3. Trouble falling or staying asleep, or sleeping too much: nearly every day 4. Feeling tired or having little energy: not at all 5. Poor appetite or overeating: not at all 6. Feeling bad about yourself - or that you are a failure or have let yourself and your family down: not at all 7. Trouble concentrating on things, such as reading the newspaper or watching television: not at all 8. Moving or speaking so slowly that other people could have noticed? - Or the opposite - being so fidgety or restless that you have been moving around a lot more than usual: not at all 9. Thoughts that you would be better off or of hurting yourself in some way: not at all Total score: 3 If you checked off any problems, how difficult have these problems made it for you to do your work, take care (more content not included)... Normal [facility] ABD Limited w/ Elastographyo n 08-05-2024 ABD Limited w/ Elastography [facility] Imaging Services [address] [place] [address] ABD Limited w/ Elastography MR#: [id number] Acct: [id number] Name: JUANITA PAULINO Rep #: [id number] : 2000 F 24 From: Reynaldo rivas MD PCP: Dr. Tiffany Marks MD Status: REG CLI Study: ABD Limited w/ Elastography Date of Exam: 07/20 09/12 Exam# [id number] Ordering Dr: Ashley Larose GEEK SQUAD AGENT- C PROCEDURE: ABD LIMITED W/ ELASTOGRAPHY REASON FOR EXAM: ADD SPLEEN PLEASE COMPARISON: None. TECHNIQUE: Right upper quadrant abdominal ultrasound. Scryer ElastQ Imaging shear wave elastography for non- invasive assessment of liver tissue stiffness. [employer]er EPIQ Elite. FINDINGS: LIVER: Size: Enlarged (hepatomegaly) Length: 23.3 cm Echotexture: Diffusely echogenic suggesting fatty infiltration Contour: Normal Lesions: None identified Elastography: EQI Med: 6.9 kPa EQI Med Rusty: 1.51 m/s IQR/Med: 21.7 %* GALLBLADDER: Normal COMMON BILE DUCT: Normal measuring 6 mm. . PANCREAS: Normal Visualized portions of the right kidney are unremarkable. No right upper quadrant ascites. Mild splenomegaly. The spleen measures 13.9 cm 6.1 cm 7.3 cm. US/ABD Limited w/ Elastography IMPRESSION: [id number] hepatic fibrosis. Splenomegaly. Hepatomegaly and diffuse fatty infiltration of the liver. Reference Values: SRU <1.37 m/s (5.7kPa): No to mild fibrosis 1.37 m/s - 2.2 m/s: Moderate to severe fibrosis >2.2 m/s (15kPa): Significant fibrosis / cirrhosis METAVIR Score F2 or higher: 1.34 m/s (5.7kPa) F3 or higher: 1.55 m/s (7.3kPa) F4: 1.80 m/s (10kPa) * If the IQR/Med is >30%, the variance in the measurements is a large and the accuracy of the measurement may be in question. Reading Location: [place] [address] CC: DELMIS Larose; Dr. Tiffany Marks MD Technical Cable Jointer: Signed Normal [facility] L5500.0550on 08-05-2024 BEEF <0.10 Normal Class 0 [facility] Comment on above: Performed By: #### L 3890.6301, L3200.1400, L500.3400, L3100.0300, L500.2500, L501.6710, L5500.0550, L506.1001, L3410.2920 ####[facility] [address] [place], [address] CHOCOLATE <0.10 Normal Class 0 [facility] Comment on above: Performed By: #### L 3890.6301, L3200.1400, L500.3400, L3100.0300, L500.2500, L501.6710, L5500.0550, L506.1001, L3410.2920 ####[facility] [address] [place], [address] CODFISH <0.10 Normal Class 0 [facility] Comment on above: Performed By: #### L 3890.6301, L3200.1400, L500.3400, L3100.0300, L500.2500, L501.6710, L5500.0550, L506.1001, L3410.2920 ####[facility] [address] [place], [address] COMMENT Comment Normal . [facility] Comment on above: Result Comment: Wilbur gray of Specific IgE Class Description of Class ----- < 0.10 0 Negative 0.10 - 0.31 0/I Equivocal/Low 0.32 - 0.55 I Low 0.56 - 1.40 II Moderate 1.41 - 3.90 III High 3.91 - 19.00 IV Very High 19.01 - 100.00 V Very High >100.00 Very High Performed By: #### L 3890.6301, L3200.1400, L500.3400, L3100.0300, L500.2500, L501.6710, L5500.0550, L506.1001, L3410.2920 ####[facility] [address] [place], [address] CORN 0.14 kU/L Abnormal Class 0/I [facility] Comment on above: Performed By: #### L 3890.6301, L3200.1400, L500.3400, L3100.0300, L500.2500, L501.6710, L5500.0550, L506.1001, L3410.2920 ####[facility] [address] [place], [place], [id number] EGG, WHOLE 0.12 kU/L Abnormal Class 0/I [facility] Comment on above: Result Comment: Perf ormed at: [facility] [id number] Drapery Inspector: Juana Lee MD, Phone: [phone] Performed By: #### L 3890.6301, L3200.1400, L500.3400, L3100.0300, L500.2500, L501.6710, L5500.0550, L506.1001, L3410.2920 ####[facility] [address] [place], [place], [id number] MILK (COW) 0.60 kU/L Abnormal Class II [facility] Comment on above: Performed By: #### L 3890.6301, L3200.1400, L500.3400, L3100.0300, L500.2500, L501.6710, L5500.0550, L506.1001, L3410.2920 ####[facility] [address] [place], [place], [phone] MUSSELS <0.10 Normal Class 0 [facility] Comment on above: Performed By: #### L 3890.6301, L3200.1400, L500.3400, L3100.0300, L500.2500, L501.6710, L5500.0550, L506.1001, L3410.2920 ####[facility] [address] [place], [place], [id number] PEANUT <0.10 Normal Class 0 [facility] Comment on above: Performed By: #### L 3890.6301, L3200.1400, L500.3400, L3100.0300, L500.2500, L501.6710, L5500.0550, L506.1001, L3410.2920 ####[facility] [address] [place], [address] PORK <0.10 Normal Class 0 [facility] Comment on above: Performed By: #### L 3890.6301, L3200.1400, L500.3400, L3100.0300, L500.2500, L501.6710, L5500.0550, L506.1001, L3410.2920 ####[facility] [address] [place], [place], [phone] SALMON <0.10 Normal Class 0 [facility] Comment on above: Performed By: #### L 3890.6301, L3200.1400, L500.3400, L3100.0300, L500.2500, L501.6710, L5500.0550, L506.1001, L3410.2920 ####[facility] [address] [place], [place], [phone] SHRIMP <0.10 Normal Class 0 [facility] Comment on above: Performed By: #### L 3890.6301, L3200.1400, L500.3400, L3100.0300, L500.2500, L501.6710, L5500.0550, L506.1001, L3410.2920 ####[facility] [address] [place], [place], [phone] SOYBEAN <0.10 Normal Class 0 [facility] Comment on above: Performed By: #### L 3890.6301, L3200.1400, L500.3400, L3100.0300, L500.2500, L501.6710, L5500.0550, L506.1001, L3410.2920 ####[facility] [address] [place], [place], [phone] TUNA <0.10 Normal Class 0 [facility] Comment on above: Performed By: #### L 3890.6301, L3200.1400, L500.3400, L3100.0300, L500.2500, L501.6710, L5500.0550, L506.1001, L3410.2920 ####[facility] [address] [place], [place], [address] WHEAT 0.33 kU/L Abnormal Class I [facility] Comment on above: Performed By: #### L 3890.6301, L3200.1400, L500.3400, L3100.0300, L500.2500, L501.6710, L5500.0550, L506.1001, L3410.2920 ####[facility] [address] [place], [place], [address] Hepatitis A AB, Totalon 07-20 HEPATITIS A,TOT Positive Abnormal Negative [facility] Comment on above: Result Comment: Comm ent: The HAV total antibody assay detects both IgG and IgM but does not differentiate between them. A negative result suggests susceptibility to infection. A positive result could be due to vaccination, previously resolved infection or active infection. Testing for HAV IgM should be performed if active HAV infection is suspected. [employer] offers profiles that will automatically reflex positive HAV total antibody results to IgM (e.g., panel #[id number] HAV Antibody w/ Rfx). Performed at: [address] [id number] Drapery Inspector: Gilles Carey PhD, Phone: [phone] Performed By: #### L 3890.6301, L3200.1400, L500.3400, L3100.0300, L500.2500, L501.6710, L5500.0550, L506.1001, L3410.2920 ####[facility] [address] [facility] [address] [place], [place], [address] Immunoglobulin Aon 5 IMMUNOGLOB A QN 164 mg/dL Normal 87-352 [facility] Comment on above: Order Comment: N Performed By: #### L 3890.6301, L3200.1400, L500.3400, L3100.0300, L500.2500, L501.6710, L5500.0550, L506.1001, L3410.2920 ####[facility] [address] [place], [place], [phone] t-Transglutaminase IgAon tTG IGA <2 Normal 0-3 [facility] Comment on above: Result Comment: Nega tive 0 - 3 Weak Positive 4 - 10 Positive >10 Tissue Transglutaminase (tTG) has been identified as the endomysial antigen. Studies have demonstr- ated that endomysial IgA antibodies have over 99% specificity for gluten sensitive enteropathy. Performed By: #### L 3890.6301, L3200.1400, L500.3400, L3100.0300, L500.2500, L501.6710, L5500.0550, L506.1001, L3410.2920 ####[facility] [address] [place], [place], [phone] Anion gap in Serum or Plasma Ordered By: Ashley Larose on 07-30-2024 Anion gap [Moles/Vol] 15 mmol/L 07-03 [facility] BUN/creatinine ratioOrdered By: Ashley Larose on 07-30-2024 Urea nitrogen/Creatinine [Mass ratio] 13.0 mg/mg - [facility] Basic Metabolic Profile (BMP )on 07-30-2024 BUN/CRE 13.0 RATIO Normal 12-08 [facility] Comment on above: Performed By: #### L 3890.6301, L3200.1400, L500.3400, L3100.0300, L500.2500, L501.6710, L5500.0550, L506.1001, L3410.2920 ####[facility] [address] [place], [place], [phone] Calcium [Mass/Vol] 9.7 mg/dL Normal 7.6-11.0 [facility] Comment on above: Performed By: #### L 3890.6301, L3200.1400, L500.3400, L3100.0300, L500.2500, L501.6710, L5500.0550, L506.1001, L3410.2920 ####[facility] [address] [place], [address] Chloride [Moles/Vol] 101 mmol/L Normal 98-108 [facility] Comment on above: Performed By: #### L 3890.6301, L3200.1400, L500.3400, L3100.0300, L500.2500, L501.6710, L5500.0550, L506.1001, L3410.2920 ####[facility] [address] [place], [address] CO2 [Moles/Vol] 22.8 mmol/L Normal 21.0-32.0 [facility] Comment on above: Performed By: #### L 3890.6301, L3200.1400, L500.3400, L3100.0300, L500.2500, L501.6710, L5500.0550, L506.1001, L3410.2920 ####[facility] [address] [place], [address] Creatinine [Mass/Vol] 0.66 mg/dL Low 0.70-1.20 [facility] Comment on above: Performed By: #### L 3890.6301, L3200.1400, L500.3400, L3100.0300, L500.2500, L501.6710, L5500.0550, L506.1001, L3410.2920 ####[facility] [address] [place], [address] GAP 15 Normal 5-15 [facility] Comment on above: Performed By: #### L 3890.6301, L3200.1400, L500.3400, L3100.0300, L500.2500, L501.6710, L5500.0550, L506.1001, L3410.2920 ####[facility] [address] [place], [place], [phone] GFR/1.73 sq M.predicted among non-blacks MDRD (S/P/Bld) [Vol rate/Area] 124 mL/min/{1.73_m2} Normal >60 [facility] Comment on above: Result Comment: mL/m in/1.73m2 CKD-EPI Creatinine Equation (2020) Performed By: #### L 3890.6301, L3200.1400, L500.3400, L3100.0300, L500.2500, L501.6710, L5500.0550, L506.1001, L3410.2920 ####[facility] [address] [place], [place], [phone](334) Glucose [Mass/Vol] 103 mg/dL High 70-99 [facility] Comment on above: Performed By: #### L 3890.6301, L3200.1400, L500.3400, L3100.0300, L500.2500, L501.6710, L5500.0550, L506.1001, L3410.2920 ####[facility] [address] [place], [place], [phone]) Potassium [Moles/Vol] 3.6 mmol/L Normal 3.3-5.1 [facility] Comment on above: Performed By: #### L 3890.6301, L3200.1400, L500.3400, L3100.0300, L500.2500, L501.6710, L5500.0550, L506.1001, L3410.2920 ####[facility] [address] [place], [address] Sodium [Moles/Vol] 139 mmol/L Normal 133-145 [facility] Comment on above: Performed By: #### L 3890.6301, L3200.1400, L500.3400, L3100.0300, L500.2500, L501.6710, L5500.0550, L506.1001, L3410.2920 ####[facility] [address] [place], [address] Urea nitrogen [Mass/Vol] 9 mg/dL Normal 4-19 [facility] Comment on above: Performed By: #### L 3890.6301, L3200.1400, L500.3400, L3100.0300, L500.2500, L501.6710, L5500.0550, L506.1001, L3410.2920 ####[facility] [address] [place], [address] Bilirubin directOrdered By: Ashley Larose on 07-30-2024 Bilirubin.direct [Mass/Vol] 0.21 mg/dL 0.00-0.30 [facility] Bilirubin, totalOrdered By: Ashley Larose on 07-30-2024 Bilirubin [Mass/Vol] 0.57 mg/dL 0.00-1.30 [facility] CRPon 07-30-2024 C-REACTIVE PROT 4.37 mg/L High 0.0-3.0 [facility] Comment on above: Performed By: #### L 3890.6301, L3200.1400, L500.3400, L3100.0300, L500.2500, L501.6710, L5500.0550, L506.1001, L3410.2920 ####[facility] [address] [place], [address] Carbon dioxide, total [Moles /volume] in Central venous bloodOrdered By: Ashley Larose on 07-30-2024 CO2 [Moles/Vol] 22.8 mmol/L 21.0-32.0 [facility] Chloride assayOrdered By: Dany Larose on 07-30-2024 Chloride [Moles/Vol] 101 mmol/L 98-108 [facility] Gastroenterology Visit Repor ton 07-30-2024 Gastroenterology Visit Report [facility] Gastroenterology [address] [place] [address] OFFICE VISIT Date of Service: 07/30/24 MR#: [id number] Acct: [id number] Name: JUANITA PAULINO Rep #: [id number] : 2000 Provider: DELMIS jones Age/Sex: 24/F Location: [facility] Status: Signed Intake Vital Signs 10/17/23 11:44 07/24/24 08:23 07/30/24 08:31 Height 5 ft 7 in 5 ft 7 in 5 ft 7 in Weight: 317 lb 8 oz BMI 49.7 BP 112/80 Respiration 16 Pulse 98 Pulse Oximetry (%) 96 Oxygen Delivery Method room air Intake Visit Reasons: NEW PATIENT Chief Complaint: bowel issues Shelter Director Required: No Accompanied by: Self Is patient in pain?: No Allergies No Known Allergies Allergy (Verified 07/29/24 15:41) Medications ???Medication ???Instructions ???Recorded ???Confirmed ???Type spironolactone 25 mg tablet 25 mg PO DAILY 10/17/23 07/29/24 H istory valacyclovir 500 mg tablet 500 mg PO QDAY HSV 30 days #30 tab s 05/26/24 07/29/24 Rx buspirone 5 mg tablet 5 mg PO TID 07/29/24 07/29/24 Hist ory fluoxetine 10 mg capsule (Prozac) 10 mg PO QDAY 07/29/24 07/29/24 H istory metformin 500 mg tablet 500 mg PO BID 07/29/24 07/29/24 Hi story calcium polycarbophil 625 mg 1,250 mg (2 x 625 mg) PO QDAY #180 07/30/24 07/30/24 Rx tablet (FiberCon) tabs dicyclomine 10 mg capsule 10 mg PO TID #90 caps 07/30/2401/13 Rx rabeprazole 20 mg tablet,delayed 20 mg PO QDAY #90 tabs 07/30/24 Rx release Nurse's Note: Gets stomach pains and diarrhea when she eats. She has had studies done for food allergies and eggs and milk and she tries to avoid them and eat a gluten free diet but that doesn't help either. Mother and sister have had cancerous polps removed before, one sister has mixed IBS. Abdominal pain can be so bad that it has woken her up at night. Recalls a doctor saying she had a fatty liver when she was 13years old but hasn't heard about it sense. [facility] Medical History Polycystic ovaries IBS (irritable bowel syndrome) Seasonal allergies Pre-eclampsia History of pre-term labor Infertility PCOS (polycystic ovarian syndrome) Surgical History History of tonsillectomy H/O submucous nasal surgery Family History Mother Colon cancer Thyroid disorder Arthritis Depression Diabetes Grandmother Arthritis Sister Hormone imbalance Depression Social History adopted: No household members: spouse and children housing: house number of children: 3 current occupational status: employed sexually active: Yes Smoking Status: Never smoker alcohol intake: never substance use type: does not use caffeine: No eating out: rarely or never during the past year weight has: increased > 10 lbs what type of physical activity do you participate in: other details: different work outs frequency: 3-4 times per week seatbelt use: always do you feel safe at home: Yes HPI HPI Chief Complaint: bowel issues Details: JUANITA PAULINO, is a 24 F who presents to the office today for Labs 07/24/2024 HGB 12.6, PLT 216 24y/o female presents for initial consultation. - 2019 when she had her first baby post delivery she was having issues with breads and pastas - she replaced regular milk with almond mild - tried eliminating gluten - has tried fried food elimination - c/o really bad sulphur burps - c/o HB, taking Tums PRN but does not always help - denies any new medications, denies any dose changes - PCOS - now no matter what she eats she has diarrhea - urgency with diarrhea - watery stools - denies any bleeding - abdominal pain, lower abdomen, sharp aching, especially bad at HS, wakes up at night doubled up in pain - denies any weight loss - vomiting with pain at times - she does report having some improvement in pain with a BM - can vomiting food 3-4h after eating or vomiting at times can just be acid/bile - reports she is not diabetic - she reports she was on Mounjaro in the past - Medicaid covered this for her in the past - PCOS - denies any EtOH intake - reports an US revealed fatty liver in the past B: depends ranges from fruit parfait L: usually eats in hospital cafeteria D: vegetable/starch/protein ROS Const Constitutional: Positive for fatigue and weight change (gain); No fever(s) ENT ENT: No difficulty swallowing Gastro GI: Positive for abdominal pain, bloating, diarrhea, heartburn and nausea/dyspepsia; No belching, change in bowel habits, change in stool character, coffee ground emesis, constipation, cramping, difficulty swa (more content not included)... Normal [facility] Glomerular filtration rate ( GFR) estimation/1.73 sq m using serum, plasma, or whole bOrdered By: Ashley Larose on 07-30-2024 GFR/1.73 sq M.predicted among non-blacks MDRD (S/P/Bld) [Vol rate/Area] 124 mL/min/{1.73_m2} >60 [facility] Comment on above: mL/min/1.73m2 CKD-EP I Creatinine Equation (2020) Hepatitis C Antibodyon 07-30 Hepatitis C Ab Non-Reactive Normal Nonreactive [facility] Comment on above: Result Comment: Reac tive: Presumptive evidence of antibodies to HCV. Follow CDC recommendations for supplemental testing. Non-Reactive: Antibodies to HCV were not detected; does not exclude the possibility of exposure to HCV Reactive Results are presumptive evidence of antibodies to HCV. Follow CDC recommendations for supplemental testing. Order confirmation testing: HCV Quant by PCR testing - HCVPCR #[id number] Non Reactive: < 0.8 Equivocal: >/= 0.8 to < 1.0 Reactive: >/= 1.0 The CDC requires that a reactive/equivocal HCV antibody result be sent out for confirmation. HCV Quant by PCR testing. Performed By: #### L 3890.6301, L3200.1400, L500.3400, L3100.0300, L500.2500, L501.6710, L5500.0550, L506.1001, L3410.2920 ####[facility] [address] [place], [place], [phone] Laboratory - Chemistry and C hemistry - challengeOrdered By: Ashley Larose on 07-30-2024 AST [Catalytic activity/Vol] 50 U/L High <32 [facility] Laboratory - Miscellaneous t estsOrdered By: Ashley Larose on 07-30-2024 Service comment (Unsp spec) [Interp] Comment . [facility] Comment on above: Levels of Specific I gE Class Description of Class ----- < 0.10 0 Negative 0.10 - 0.31 0/I Equivocal/Low 0.32 - 0.55 I Low 0.56 - 1.40 II Moderate 1.41 - 3.90 III High 3.91 - 19.00 IV Very High 19.01 - 100.00 V Very High >100.00 Very High Liver Profileon 07-30-2024 Albumin [Mass/Vol] 4.6 g/dL Normal 3.5-5.0 [facility] Comment on above: Performed By: #### L 3890.6301, L3200.1400, L500.3400, L3100.0300, L500.2500, L501.6710, L5500.0550, L506.1001, L3410.2920 ####[facility] [address] [place], [address] ALK PHOS 92 U/L Normal 35-104 [facility] Comment on above: Performed By: #### L 3890.6301, L3200.1400, L500.3400, L3100.0300, L500.2500, L501.6710, L5500.0550, L506.1001, L3410.2920 ####[facility] [address] [place], [address] ALT [Catalytic activity/Vol] 53 U/L High <=34 [facility] Comment on above: Performed By: #### L 3890.6301, L3200.1400, L500.3400, L3100.0300, L500.2500, L501.6710, L5500.0550, L506.1001, L3410.2920 ####[facility] [address] [place], [address] AST [Catalytic activity/Vol] 50 U/L High <=31 [facility] Comment on above: Performed By: #### L 3890.6301, L3200.1400, L500.3400, L3100.0300, L500.2500, L501.6710, L5500.0550, L506.1001, L3410.2920 ####[facility] [address] [place], [address] Bilirubin [Mass/Vol] 0.57 mg/dL Normal 0.00-1.30 [facility] Comment on above: Performed By: #### L 3890.6301, L3200.1400, L500.3400, L3100.0300, L500.2500, L501.6710, L5500.0550, L506.1001, L3410.2920 ####[facility] [address] [place], [address] Bilirubin.direct [Mass/Vol] 0.21 mg/dL Normal 0.00-0.30 [facility] Comment on above: Performed By: #### L 3890.6301, L3200.1400, L500.3400, L3100.0300, L500.2500, L501.6710, L5500.0550, L506.1001, L3410.2920 ####[facility] [address] [place], [address] Globulin (S) [Mass/Vol] 3.3 g/dL Normal 2.2-4.2 [facility] Comment on above: Performed By: #### L 3890.6301, L3200.1400, L500.3400, L3100.0300, L500.2500, L501.6710, L5500.0550, L506.1001, L3410.2920 ####[facility] [address] [place], [place], [phone] T PROT 7.9 g/dL Normal 5.9-8.4 [facility] Comment on above: Performed By: #### L 3890.6301, L3200.1400, L500.3400, L3100.0300, L500.2500, L501.6710, L5500.0550, L506.1001, L3410.2920 ####[facility] [address] [place], [place], [address] Potassium measurement (mass/ volume)Ordered By: Ashley Larose on 07-30-2024 Potassium (Unsp spec) [Mass/Vol] 3.6 mmol/L 3.3-5.1 [facility] Serum beef IgE antibody assa y (units/volume)Ordered By: Ashley Larose on 07-30-2024 Beef IgE Qn (S) <0.10 kU/L Class 0 [facility] Serum codfish IgE antibody a ssay (units/volume)Ordered By: Ashley Larose on 07-30-2024 Codfish IgE Qn (S) <0.10 kU/L Class 0 [facility] Serum corn IgE antibody assa y (units/volume)Ordered By: Ashley Larose on 07-30-2024 [place] IgE Qn (S) 0.14 kU/L High Class 0/I [facility] Serum cow milk IgE antibody assay (units/volume)Ordered By: Ashley Larose on 07-30-2024 Cow milk IgE Qn (S) 0.60 kU/L High Class II [facility] Serum creatinine measurement (mass/volume)Ordered By: Ashley Larose on 07-30-2024 Creatinine [Mass/Vol] 0.66 mg/dL Low 0.70-1.20 [facility] Serum globulin measurementOr dered By: Ashley Larose on 07-30-2024 Globulin (S) [Mass/Vol] 3.3 g/dL 2.2-4.2 [facility] Serum glucose measurement (m ass/volume)Ordered By: Ashley Larose on 07-30-2024 Glucose [Mass/Vol] 103 mg/dL High 70-99 [facility] Serum or plasma C reactive p rotein measurement (mass/volume)Ordered By: Ashley Larose on 07-30-2024 CRP [Mass/Vol] 4.37 mg/L High 0.0-3.0 [facility] Serum or plasma IgA measurem ent (mass/volume)Ordered By: Ashley Larose on 07-30-2024 IgA [Mass/Vol] 164 mg/dL 87-352 [facility] Serum or plasma alanine evans otransferase (ALT) measurementOrdered By: Ashley Larose on 07-30-2024 ALT [Catalytic activity/Vol] 53 U/L High <35 [facility] Serum or plasma albumin benita urement (mass/volume)Ordered By: Ashley Larose on 07-30-2024 Albumin [Mass/Vol] 4.6 g/dL 3.5-5.0 [facility] Serum or plasma alkaline angelina sphatase measurementOrdered By: Ashley Larose on 07-30-2024 ALP [Catalytic activity/Vol] 92 U/L 35-104 [facility] Serum or plasma calcium benita urement (mass/volume)Ordered By: Ashley Larose on 07-30-2024 Calcium [Mass/Vol] 9.7 mg/dL 7.6-11.0 [facility] Serum or plasma urea nitroge n measurement (mass/volume)Ordered By: Ashley Larose on 07-30-2024 Urea nitrogen [Mass/Vol] 9 mg/dL 4-19 [facility] Serum peanut IgE antibody as say (units/volume)Ordered By: Ashley Larose on 07-30-2024 Peanut IgE Qn (S) <0.10 kU/L Class 0 [facility] Serum pork IgE antibody assa y (units/volume)Ordered By: Ashley Larose on 07-30-2024 Pork IgE Qn (S) <0.10 kU/L Class 0 [facility] Serum salmon IgE antibody as say (units/volume)Ordered By: Ashley Larose on 07-30-2024 [place] IgE Qn (S) <0.10 kU/L Class 0 [facility] Serum soybean IgE antibody a ssay (units/volume)Ordered By: Ashley Larose on 07-30-2024 Soybean IgE Qn (S) <0.10 kU/L Class 0 [facility] Serum tissue transglutaminas e (tTG) IgA antibody assay (units/volume)Ordered By: Ashley Larose on 07-30-2024 tTG IgA Qn (S) <2 U/mL 0-3 [facility] Comment on above: Negative 0 - 3 Weak Positive 4 - 10 Positive >10 Tissue Transglutaminase (tTG) has been identified as the endomysial antigen. Studies have demonstr- ated that endomysial IgA antibodies have over 99% specificity for gluten sensitive enteropathy. Serum tuna IgE antibody assa y (units/volume)Ordered By: Ashley Larose on 07-30-2024 Tuna IgE Qn (S) <0.10 kU/L Class 0 [facility] Serum wheat IgE antibody ass ay (units/volume)Ordered By: Ashley Larose on 07-30-2024 Wheat IgE Qn (S) 0.33 kU/L High Class I [facility] Serum whole egg IgE antibody assay (units/volume)Ordered By: Ashley Larose on 07-30-2024 Whole Egg IgE Qn (S) 0.12 kU/L High Class 0/I [facility] Comment on above: Performed at: [address] [id number] Director: Juana Lee MD, Phone: [phone] Sodium levelOrdered By: Sylvia Larose on 07-30-2024 Sodium [Moles/Vol] 139 mmol/L 133-145 [facility] Total proteinOrdered By: Brandy Larose on 07-30-2024 Protein [Mass/Vol] 7.9 g/dL 5.9-8.4 [facility] Vitamin D,25 Hydroxyon 07-30 Vitamin D 25-OH 17.7 ng/mL Low 30-100 [facility] Comment on above: Result Comment: Sarina min D Status Deficiency: <20 ng/mL (50nmol/L) Insufficiency: 20-30 ng/mL (50-75 nmol/L) Sufficiency: 30-100 ng/mL (75-250 nmol/L) Toxicity: >100 ng/mL (>250 nmol/L) Performed By: #### L 3890.6301, L3200.1400, L500.3400, L3100.0300, L500.2500, L501.6710, L5500.0550, L506.1001, L3410.2920 ####[facility] [address] [place], [place], [id number] Hepatitis B Surface Antibody on 07-29-2024 [facility] Comment on above: Result Comment: <8.5 mIU/mL: Non-Reactive 8.5<= x <11.5 mIU/mL: Indeterminate >=11.5 mIU/mL: Reactive Non Reactive: Inconsistent with immunity less than <10 mIU/mL Reactive: Consistent with immunity greater than or equal to 10 mIU/mL Performed By: #### L 3890.6202 ####[facility] [address] [facility] [place], [address] Serum hepatitis B virus surf markel antibody detectionOrdered By: HEALTH ASSESSMENT on 07-29-2024 HBV surface Ab Ql (S) [facility] Comment on above: <8.5 mIU/mL: Non-[place] ctive8.5<= x <11.5 mIU/mL: Indeterminate>=11.5 mIU/mL: Reactive Non Reactive: Inconsistent with immunity less than <10 mIU/mL Reactive: Consistent with immunity greater than or equal to 10 mIU/mL Absolute lymphocyte countOrd ered By: Zurdo Maldonado on 07-24-2024 Lymphocytes Auto (Unsp spec) [#/Vol] 1.68 10*3/uL 0.83-4.51 [facility] Absolute neutrophil countOrd ered By: Zurdo Maldonado on 07-24-2024 Neutrophils (Bld) [#/Vol] 3.3 10*3/uL 2.0-7.7 [facility] Automated lymphocyte count a s percentage of total leukocytesOrdered By: Zurdo Maldonado on 07-24-2024 Lymphocytes/100 WBC Auto (Unsp spec) 30.8 % 19-41 [facility] Basophil percentageOrdered B y: Zurdo Maldonado on 07-24-2024 Basophils/100 WBC (Bld) 0.6 % 0-1 [facility] CBC W/Diff, Automatedon -2024 Absolute Lymph 1.68 X10 3/uL Normal 0.83-4.51 [facility] Comment on above: Performed By: #### L 3889.6202 #### [facility] Laboratory [address] [place], [address] Absolute Neut 3.3 X10 3/uL Normal 2.0-7.7 [facility] Comment on above: Performed By: #### L 3889.6202 #### [facility] [address] [place], [address] Basophils/100 WBC (Bld) 0.6 % Normal 0-1 [facility] Comment on above: Performed By: #### L 3889.6202 #### [facility] [address] [place], [address] Eosinophils/100 WBC (Bld) 2.4 % Normal 0-5 [facility] Comment on above: Performed By: #### L 3889.6202 #### [facility] [address] [place], [address] Erythrocyte distribution width (RBC) [Ratio] 13.9 % Normal 11.6-14.6 [facility] Comment on above: Performed By: #### L 3889.6202 #### [facility] [address] [place], [address] Hematocrit (Bld) [Volume fraction] 37.9 % Normal 37-47 [facility] Comment on above: Performed By: #### L 3889.6202 #### [facility] [address] [place], [address] Hemoglobin (Bld) [Mass/Vol] 12.6 g/dL Normal 12.0-15.0 [facility] Comment on above: Performed By: #### L 565.6202 #### [facility] [address] [place], [address] IG% 0.400 Normal 0.0-0.9 [facility] Comment on above: Result Comment: IG% - Immature Granulocytes (promyelocytes, myelocytes and metamyelocytes) > 1% indicates that a LEFT SHIFT is Present. Performed By: #### L 026.6202 #### [facility] [address] [facility], [address] Lymphocytes/100 WBC (Bld) 30.8 % Normal 19-41 [facility] Comment on above: Performed By: #### L 867.6202 #### [facility] [address] [place], [address] MCH (RBC) [Entitic mass] 26.4 pg Low 27.0-32.0 [facility] Comment on above: Performed By: #### L 588.6202 #### [facility] [address] [place], [address] MCHC (RBC) [Mass/Vol] 33.2 g/dL Normal 32-36 [facility] Comment on above: Performed By: #### L 030.6202 #### [facility] [address] [place], [address] MCV (RBC) [Entitic vol] 79.3 fL Low 81-99 [facility] Comment on above: Performed By: #### L 051.6202 #### [facility] [address] [place], [address] Monocytes/100 WBC (Bld) 5.7 % Normal 0-10 [facility] Comment on above: Performed By: #### L 3890.6202 #### [facility] [address] [place], [address] Neutrophils/100 WBC (Bld) 60.1 % Normal 47-70 [facility] Comment on above: Performed By: #### L 389.6202 #### [facility] [address] [place], [address] Nucleated RBC (Bld) [#/Vol] 0 10*3/uL Normal 0-5 [facility] Comment on above: Performed By: #### L 3889.6202 #### [facility] [address] [place], [address] Platelet mean volume (Bld) [Entitic vol] 11.8 fL Normal 6.2-12.0 [facility] Comment on above: Performed By: #### L 389.6202 #### [facility] [address] [place], [address] Platelets (Bld) [#/Vol] 216 10*3/uL Normal 150-450 [facility] Comment on above: Performed By: #### L 3890.6202 #### [facility] [address] [place], [address] RBC (Bld) [#/Vol] 4.78 10*6/uL Normal 4.2-5.4 [facility] Comment on above: Performed By: #### L 3890.6202 #### [facility] [address] [place], [address] RDW SD 39.8 fl Normal 35.1-43.9 [facility] Comment on above: Performed By: #### L 3890.6202 #### [facility] [address] [place], [address] WBC (Bld) [#/Vol] 5.5 10*3/uL Normal 4.4-11.0 [facility] Comment on above: Performed By: #### L 3890.6202 #### [facility] [address] [place], [address] Emergency Department Summary on 07-24-2024 Emergency Department Summary [facility] Medical Records Department [address] [place] [address] Emergency Department Summary 07/24/24 MR#: [id number] Acct: [id number] Name: JUANITA PAULINO Rep #: [id number] : 2000 24 From: Zurdo Maldondao DO PCP: Dr. Tiffany Marks MD Status:DEP ER Location: ED HPI HPI - Female History of Present Illness Chief Complaint: Vag Bleeding Informant: patient Narrative Narrative: 24-year-old female presenting to the emergency room with heavy vaginal bleeding. Patient states that this menstrual cycle was about 2-1/2 weeks late. She states that she typically has been very regular in recent months. She has a history of PCOS. 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 She states she had some small clots throughout the night this morning when she got to work coworkers mention that she did not appear her normal self. She states she feels flushed and has a slight headache. She notes pelvic cramping. Patient states she is not currently on any hormonal medications. She heard back from her director human services and was advised to come to emergency. She denies any known bleeding disorders. 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 30 days #30 tab s 05/26/24 Unknown Rx Allergy/AdvReac Type Severity Reaction Status Date / Time No Known Allergies Allergy Verified 07/24/24 08:24 Family History Mother Colon cancer Thyroid disorder Surgical History H/O submucous nasal surgery Social History adopted: No household members: spouse and children housing: house number of children: 3 current occupational status: unemployed 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 sexually active: Yes Smoking Status: Never smoker alcohol intake: never substance use type: does not use caffeine: No eating out: rarely or never during the past year weight has: increased > 10 lbs what type of physical activity do you participate in: other details: different work outs frequency: 3-4 times per week seatbelt use: always do you feel safe at home: Yes ROS ROS ED Constitutional Constitutional ED: Denies chills or weight loss Eyes Eyes: Denies change in vision or diplopia ENT ENT ED: Denies ear pain, rhinorrhea or sore throat Cardiovascular Cardiovascular: Denies chest pain, orthopnea, palpitations or racing heartbeat Respiratory/Chest Respiratory/Chest: Denies cough, dyspnea or orthopnea Gastrointestinal Gastrointestinal: Denies abdominal pain, diarrhea, nausea or vomiting Genitourinary Genitourinary ED: Reports other Details: See history of present illness ; Denies dysuria, hematuria or urinary frequency Musculoskeletal Musculoskeletal: Denies arthralgias or myalgias Integumentary Denies abscess or rash Neurologic Neurologic: Denies headache(s) or weakness Psychiatric Psychiatric: Denies anxiety, depression, suicidal ideation or suicidal thoughts Endocrine Endocrinology: Denies polydipsia, polyphagia or polyuria Allergic/Immunologic Allergic/Immunologic ED: Denies mouth swelling, tongue swelling or urticaria EXAM Physical Exam Const Vital Signs: 07/24/24 08:23 07/24/24 10:45 Temperature 98.1 F 98.7 F Temperature Source Oral Pulse Rate 88 66 Respiratory Rate 16 16 Blood Pressure 129/80 H 122/86 H Blood Pressure Mean 96 98 Pulse Ox 98 98 Oxygen Delivery Method Room Air Positive well nourished, well developed and obese General Appearance ED: well developed and NAD Nutritional Appearance: obese HEENT Reports normocephalic, head/scalp atraumatic and moist mucous membranes Eyes PERRL and EOMs intact bilaterally Neck no lymphadenopathy, supple and no JVD Resp normal respiratory effort and clear to auscultation bilaterally Cardio regular rate, regular rhythm and no murmurs GI normal to inspection, nondistended, normoactive bowel sounds and non-tender Palpation: soft Back/Spine no CVA tenderness and normal ROM Extremity normal to inspection General Extremety ED: Negative for edema General Extremity: Negative for edema Neuro oriented x3 and CN's II-XII (more content not included)... Normal [facility] Eosinophil percentageOrdered By: Zurdo Maldonado on 07-24-2024 Eosinophils/100 WBC (Bld) 2.4 % 0-5 [facility] Erythrocyte distribution wid th ratioOrdered By: Zurdo Maldonado on 07-24-2024 Erythrocyte distribution width (RBC) [Ratio] 13.9 % 11.6-14.6 [facility] Erythrocyte distribution wid th standard deviationOrdered By: Zurdo Maldonado on 07-24-2024 Erythrocyte distribution width (RBC) [Ratio] 39.8 fl 35.1-43.9 [facility] Hematocrit Auto (Bld) [Volum e fraction]Ordered By: Zurdo Maldonado on 07-24-2024 Hematocrit (Bld) [Volume fraction] 37.9 % 37-47 [facility] Hemoglobin measurementOrdere d By: Zurdo Maldonado on 07-24-2024 Hemoglobin (Bld) [Mass/Vol] 12.6 g/dL 12.0-15.0 [facility] Immature granulocytes/100 WB C Auto (Bld)Ordered By: Zurdo Maldonado on 07-24-2024 Immature granulocytes/100 WBC (Bld) 0.400 % 0.0-0.9 [facility] Comment on above: IG% - Immature Granu locytes (promyelocytes, myelocytes and metamyelocytes) > 1% indicates that a LEFT SHIFT is Present. MCV (mean corpuscular volume ) determinationOrdered By: Zurdo Maldonado on 07-24-2024 MCV (RBC) [Entitic vol] 79.3 fL Low 81-99 [facility] Mean corpuscular hemoglobin (MCH) determinationOrdered By: Zurdo Maldonado on 07-24-2024 MCH (RBC) [Entitic mass] 26.4 pg Low 27.0-32.0 [facility] Mean corpuscular hemoglobin concentration (MCHC) determinationOrdered By: Zurdo Maldonado on 07-24-2024 MCHC (RBC) [Mass/Vol] 33.2 g/dL 32-36 [facility] Mean platelet volume determi nationOrdered By: Zurdo Maldonado on 07-24-2024 Platelet mean volume (Bld) [Entitic vol] 11.8 fL 6.2-12.0 [facility] Monocyte percentageOrdered B y: Zurdo Maldonado on 07-24-2024 Monocytes/100 WBC (Bld) 5.7 % 0-10 [facility] Neutrophil percentageOrdered By: Zurdo Maldonado on 07-24-2024 Neutrophils/100 WBC (Bld) 60.1 % 47-70 [facility] Nucleated red blood cell per centageOrdered By: Zurdo Maldonado on 07-24-2024 Nucleated RBC/100 WBC (Bld) [Ratio] 0 % 0-5 [facility] Platelet countOrdered By: Tomer Maldonado on 07-24-2024 Platelets (Bld) [#/Vol] 216 10*3/uL 150-450 [facility] ,Serum,hCG Quali.on 07-24-2024 HCG, SERUM QUAL Negative Normal [facility] Comment on above: Performed By: #### L 700.6800 ####[facility] [address] [place], [address] RBC Auto (Bld) [#/Vol]Ordere d By: Zurdo Maldonado on 07-24-2024 RBC (Bld) [#/Vol] 4.78 10*6/uL 4.2-5.4 [facility] Serum beta-hCG test, qualita tiveOrdered By: Zurdo Maldonado on 07-24-2024 Beta HCG ( test) Ql Negative [facility] Transvaginal Non-on 07-24-2024 Transvaginal Non- [facility] Imaging Services [address] [place], [place] [id number] Transvaginal Non- MR#: [id number] Acct: [id number] Name: JUANITA PAULINO Rep #: [id number] : 2000 F 24 From: Reagan Lott PCP: Dr. Tiffany Marks MD Status: DEP ER Study: Transvaginal Non- Date of Exam: Exam# [id number] Ordering Dr: Zurdo Maldonado DO ADDENDUM by Dr. Reagan Rodriguez MD on 08/11/24 at 1215 The left ovarian cyst is likely benign appearance. Follow-up imaging in 2-3 cycles may be helpful to confirm this. Reading Location: [place] [address] 08/11/24 1215 Date cc: Dr. Tiffany Marks MD; Dr. Zurdo Maldonado DO * Signed PROCEDURE: TRANSVAGINAL NON- 07/24/2024 REASON FOR EXAM: ABNORMAL VAGINAL BLEEDING TECHNIQUE: Transvaginal pelvic ultrasound COMPARISON: Ultrasound of 01/19/2024. FINDINGS: Measurements: Uterus: 9.6 x 5.9 x 4.4 cm with a volume of 131 mL Endometrial Thickness: 5.3 mm thickness. Right Ovary: 4.2 x 2.4 x 2.1 cm with a volume of 11.1 mL. Left Ovary: 4.8 x 3.9 x 3.0 cm with a volume of 29.7 mL. A left ovarian cyst is measured at 3.4 x 3.0 x 1.8 cm. No solid component is noted. Uterus: Normal size, myometrial echotexture, and contour. Endometrium: Unremarkable. Right ovary: No abnormality seen. Satisfactory arterial and venous blood flow is noted. Left ovary: Left ovarian cyst. Satisfactory arterial and venous blood flow noted. Other: No free fluid is seen. US/Transvaginal Non- IMPRESSION: 1. Left ovarian cyst. 2. Negative examination, otherwise. Reading Location: [id number] CC: Dr. Tiffany Marks MD; Dr. Zurdo Maldonado DO Technical Cable Jointer: Signed Normal [facility] White blood cell (WBC) count Ordered By: Zurdo Maldonado on 07-24-2024 WBC (Bld) [#/Vol] 5.5 10*3/uL 4.4-11.0 [facility] Serum human chorionic gonado tropin detection for pregnancyOrdered By: Libertad Pate on 07-16-2024 HCG ( test) Ql < 1 mIU/mL <9 [facility] Comment on above: Gestational Age0.2-1 Week: 5-50 mIU/mL1-2 Weeks: 50-500 mIU/mL2-3 Weeks: 100-5000 mIU/mL3-4 Weeks: 500-10,000 mIU/mL4-5 Weeks:1000-50,000 mIU/mL5-6 Weeks: 10,000-100,000 mIU/mL6-8 Weeks: 15,000-200,000 mIU/mL2-3 Months:10,000-100,000 mIU/mL hCG Titer Quant., Serumon HCG QUANT. < 1 Normal <9 non-preg [facility] Comment on above: Result Comment: Gest ational Age 0.2-1 Week: 5-50 mIU/mL 1-2 Weeks: 50-500 mIU/mL 2-3 Weeks: 100-5000 mIU/mL 3-4 Weeks: 500-10,000 mIU/mL 4-5 Weeks:1000-50,000 mIU/mL 5-6 Weeks: 10,000-100,000 mIU/mL 6-8 Weeks: 15,000-200,000 mIU/mL 2-3 Months:10,000-100,000 mIU/mL Performed By: #### L 700.8000 ####[facility] [address] [place], [address] Hepatitis B Surface Antibody on 06-05-2024 HEP B Surf Ab Non-Reactive Normal [facility] Comment on above: Result Comment: <8.5 mIU/mL: Non-Reactive 8.5<= x <11.5 mIU/mL: Indeterminate >=11.5 mIU/mL: Reactive Non Reactive: Inconsistent with immunity less than <10 mIU/mL Reactive: Consistent with immunity greater than or equal to 10 mIU/mL Performed By: #### L 3890.6202 #### [facility] Laboratory [address] [facility] [place], [place], [address] Serum hepatitis B virus surf markel antibody detectionOrdered By: Storelift on 06-05-2024 HBV surface Ab Ql (S) Non-Reactive [facility] Comment on above: <8.5 mIU/mL: Non-[place] ctive8.5<= x <11.5 mIU/mL: Indeterminate>=11.5 mIU/mL: Reactive Non Reactive: Inconsistent with immunity less than <10 mIU/mL Reactive: Consistent with immunity greater than or equal to 10 mIU/mL Pelvic w/ Transvaginalon Pelvic w/ Transvaginal [facility] Imaging Services [address] [place], [place] [address] Pelvic w/ Transvaginal MR#: [id number] Acct: [id number] Name: JUANITA PAULINO Rep #: [id number] : 2000 F 23 From: Marquez Olivares MD PCP: JEFF VELASCO Status: REG CLI Study: Pelvic w/ Transvaginal Date of Exam: 01/19/24 Exam# [id number] Ordering Dr: Libertad Pate [employer]ENT-C [id number] INDICATION: ovarian cyst monitoring EXAMINATION: Ultrasound US Pelvis Non OB Complete With Transvaginal Imaging TECHNIQUE: Transabdominal and transvaginal pelvic ultrasound was performed. Grayscale, spectral waveform, and color flow Doppler evaluation of the adnexa. COMPARISON: 10/29/2023 FINDINGS: UTERUS: Anteverted. The uterus measures 9.2 x 5.7 x 4.4 cm. There is no uterine mass. The endometrial stripe measures 11 mm in AP diameter which is within normal limits. RIGHT OVARY: 4.0 x 2.7 x 2.4 cm. Non-enlarged, normal echogenicity. Normal Doppler color flow demonstrated. LEFT OVARY: 3.6 x 2.4 x 2.3 cm. Non-enlarged, normal echogenicity. Normal Doppler color flow demonstrated. FREE FLUID: Trace amount in the cul-de-sac. US/Pelvic w/ Transvaginal IMPRESSION: No acute findings in the pelvis. Interval resolution of the previously demonstrated left ovarian cyst. Electronically Signed: Marquez Olivares MD at 0:30 EST , CC: DELMIS Pate; JEFF VELASCO Technical Cable Jointer: Signed Normal [facility] Pelvic w/ Transvaginalon Pelvic w/ Transvaginal [facility] Imaging Services [address] [place] [id number] Pelvic w/ Transvaginal MR#: [id number] Acct: [id number] Name: JUANITA PAULINO Rep #: [id number] : 2000 F 23 From: Yogesh birch MD PCP: JEFF VELASCO Status: REG CLI Study: Pelvic w/ Transvaginal Date of Exam: 10/29/23 Exam# [id number] Ordering Dr: Libertad Pate [id number] STUDY: ULTRASOUND OF THE FEMALE PELVIS - COMPLETE REASON FOR EXAM: Female, 23 years old. hx PCOS; menorrhagia LMP: 10/15/2023 TECHNIQUE: Transabdominal and Transvaginal TECHNICAL QUALITY: Adequate. COMPARISON: None. FINDINGS: The uterus is anteverted and is in a midline position. The uterus measures 9.8 x 5.9 x 4.6 cm. Normal uterine cervix. The endometrium measures 8 mm in thickness, and is hyperechoic. There is no demonstrated endometrial mass. There is no demonstrated myometrial mass. I.U.D. - The patient does not have an I.U.D. The right ovary is visualized. The right ovary measures 4.1 x 3.9 x 2.5 cm. There is no right ovarian cyst or ovarian mass. There is no visualized right adnexal mass or complex lesion. There is normal arterial and normal venous vascularity. The left ovary is visualized. The left ovary measures 3.8 x 3.7 x 2.3 cm. There is a 2.1 cm cyst. There is no visualized left adnexal mass or complex lesion. There is normal arterial and normal venous vascularity. There is no fluid in the cul-de-sac. The pre void volume of the bladder was 611 ml. US/Pelvic w/ Transvaginal IMPRESSION: Normal female pelvis. Electronically Signed: Yogesh Barrios MD at 23:54 EDT , CC: DELMIS Pate; JEFF VELASCO Technical Cable Jointer: Signed Normal [facility] 17-Hydroxyprogesteroneon 17ALPHA [place]-PROG 61 ng/dL Normal . [facility] Comment on above: Order Comment: Test( s) 532613-46-CE Progesterone LCMSwas developed and its performance characteristicsdetermined by [employer]. It has not been cleared or approvedby the Food and Drug Administration.UNKN Result Comment: Adul t Female Follicular 15 - 70 Luteal 35 - 290 Performed at: [address] [id number] Drapery Inspector: Juana Lee MD, Phone: [phone] Performed By: #### L 500.4050, L100.0100, L3100.9000, L3300.1500, L3300.1750, L506.1000, L501.9520, L3300.6900, L3100.5125, L506.0400 ####[facility] [address] [place], [place], [id number] DHEA Sulfateon 10-19-2023 DHEA SULFATE 382.0 ug/dL High 84.8-378.0 [facility] Comment on above: Order Comment: UNKN Performed By: #### L 500.4050, L100.0100, L3100.9000, L3300.1500, L3300.1750, L506.1000, L501.9520, L3300.6900, L3100.5125, L506.0400 ####[facility] [address] [place], [place], [address] Thyroid Peroxidase ABon 09-21 THYR PEROX AB < 9 Normal 0-34 [facility] Comment on above: Order Comment: UNKN Result Comment: Perf ormed at: [facility] [address] [id number] Drapery Inspector: Gilles Carey PhD, Phone: [phone] Performed By: #### L 500.4050, L100.0100, L3100.9000, L3300.1500, L3300.1750, L506.1000, L501.9520, L3300.6900, L3100.5125, L506.0400 ####[facility] [address] [place], [place], [id number] Genital Culture Comprehensiv edwar 10-18-2023 VAC Reason for Exam: vag inal discharge Normal vaginal isaac isolated. No yeast, Gardnerella, Neisseria or beta-hemolytic Streptococcus isolated. Normal [facility] Comment on above: Performed By: #### L 3890.6202 #### [facility] Laboratory [address] [place], [address] CBC W/Diff, Automatedon 08-2 Absolute Lymph 2.31 X10 3/uL Normal 0.83-4.51 [facility] Comment on above: Performed By: #### L 500.4050, L100.0100, L3100.9000, L3300.1500, L3300.1750, L506.1000, L501.9520, L3300.6900, L3100.5125, L506.0400 #### [facility] Laboratory [address] [place], [address] (401) Absolute Neut 3.3 X10 3/uL Normal 2.0-7.7 [facility] Comment on above: Performed By: #### L 500.4050, L100.0100, L3100.9000, L3300.1500, L3300.1750, L506.1000, L501.9520, L3300.6900, L3100.5125, L506.0400 #### [facility] [address] [facility] [place], [address] (595) Basophils/100 WBC (Bld) 0.9 % Normal 0-1 [facility] Comment on above: Performed By: #### L 500.4050, L100.0100, L3100.9000, L3300.1500, L3300.1750, L506.1000, L501.9520, L3300.6900, L3100.5125, L506.0400 #### [facility] [address] [place], [place], [address] (782) Eosinophils/100 WBC (Bld) 5.5 % High 0-5 [facility] Comment on above: Performed By: #### L 500.4050, L100.0100, L3100.9000, L3300.1500, L3300.1750, L506.1000, L501.9520, L3300.6900, L3100.5125, L506.0400 #### [facility] [address] [facility] [place], [address] (542) Erythrocyte distribution width (RBC) [Ratio] 13.4 % Normal 11.6-14.6 [facility] Comment on above: Performed By: #### L 500.4050, L100.0100, L3100.9000, L3300.1500, L3300.1750, L506.1000, L501.9520, L3300.6900, L3100.5125, L506.0400 #### [facility] [address] [facility] [place], [place], [address] Hematocrit (Bld) [Volume fraction] 40.1 % Normal 37-47 [facility] Comment on above: Performed By: #### L 500.4050, L100.0100, L3100.9000, L3300.1500, L3300.1750, L506.1000, L501.9520, L3300.6900, L3100.5125, L506.0400 #### [facility] [address] [facility] [place], [place], [address] Hemoglobin (Bld) [Mass/Vol] 12.9 g/dL Normal 12.0-15.0 [facility] Comment on above: Performed By: #### L 500.4050, L100.0100, L3100.9000, L3300.1500, L3300.1750, L506.1000, L501.9520, L3300.6900, L3100.5125, L506.0400 #### [facility] [address] [facility] [place], [place], [address] IG% 0.200 Normal 0.0-0.9 [facility] Comment on above: Result Comment: IG% - Immature Granulocytes (promyelocytes, myelocytes and metamyelocytes) > 1% indicates that a LEFT SHIFT is Present. Performed By: #### L 500.4050, L100.0100, L3100.9000, L3300.1500, L3300.1750, L506.1000, L501.9520, L3300.6900, L3100.5125, L506.0400 #### [facility] [address] [place], [address] Lymphocytes/100 WBC (Bld) 36.2 % Normal 19-41 [facility] Comment on above: Performed By: #### L 500.4050, L100.0100, L3100.9000, L3300.1500, L3300.1750, L506.1000, L501.9520, L3300.6900, L3100.5125, L506.0400 #### [facility] [address] [facility] [place], [address] MCH (RBC) [Entitic mass] 25.6 pg Low 27.0-32.0 [facility] Comment on above: Performed By: #### L 500.4050, L100.0100, L3100.9000, L3300.1500, L3300.1750, L506.1000, L501.9520, L3300.6900, L3100.5125, L506.0400 #### [facility] [address] [facility] [place], [address] MCHC (RBC) [Mass/Vol] 32.2 g/dL Normal 32-36 [facility] Comment on above: Performed By: #### L 500.4050, L100.0100, L3100.9000, L3300.1500, L3300.1750, L506.1000, L501.9520, L3300.6900, L3100.5125, L506.0400 #### [facility] [address] [facility] [place], [address] MCV (RBC) [Entitic vol] 79.6 fL Low 81-99 [facility] Comment on above: Performed By: #### L 500.4050, L100.0100, L3100.9000, L3300.1500, L3300.1750, L506.1000, L501.9520, L3300.6900, L3100.5125, L506.0400 #### [facility] [address] [facility] [place], [address] Monocytes/100 WBC (Bld) 5.6 % Normal 0-10 [facility] Comment on above: Performed By: #### L 500.4050, L100.0100, L3100.9000, L3300.1500, L3300.1750, L506.1000, L501.9520, L3300.6900, L3100.5125, L506.0400 #### [facility] [address] [place], [address] (419 Neutrophils/100 WBC (Bld) 51.6 % Normal 47-70 [facility] Comment on above: Performed By: #### L 500.4050, L100.0100, L3100.9000, L3300.1500, L3300.1750, L506.1000, L501.9520, L3300.6900, L3100.5125, L506.0400 #### [facility] [address] [facility] [place], [address] (237) Nucleated RBC (Bld) [#/Vol] 0 10*3/uL Normal 0-5 [facility] Comment on above: Performed By: #### L 500.4050, L100.0100, L3100.9000, L3300.1500, L3300.1750, L506.1000, L501.9520, L3300.6900, L3100.5125, L506.0400 #### [facility] [address] [facility] [place], [address] (588) Platelet mean volume (Bld) [Entitic vol] 11.5 fL Normal 6.2-12.0 [facility] Comment on above: Performed By: #### L 500.4050, L100.0100, L3100.9000, L3300.1500, L3300.1750, L506.1000, L501.9520, L3300.6900, L3100.5125, L506.0400 #### [facility] [address] [place], [address] (388 Platelets (Bld) [#/Vol] 257 10*3/uL Normal 150-450 [facility] Comment on above: Performed By: #### L 500.4050, L100.0100, L3100.9000, L3300.1500, L3300.1750, L506.1000, L501.9520, L3300.6900, L3100.5125, L506.0400 #### [facility] [address] [place], [place], [id number] RBC (Bld) [#/Vol] 5.04 10*6/uL Normal 4.2-5.4 [facility] Comment on above: Performed By: #### L 500.4050, L100.0100, L3100.9000, L3300.1500, L3300.1750, L506.1000, L501.9520, L3300.6900, L3100.5125, L506.0400 #### [facility] [address] [place], [place], [id number] RDW SD 38.8 fl Normal 35.1-43.9 [facility] Comment on above: Performed By: #### L 500.4050, L100.0100, L3100.9000, L3300.1500, L3300.1750, L506.1000, L501.9520, L3300.6900, L3100.5125, L506.0400 #### [facility] [address] [place], [place], [id number] WBC (Bld) [#/Vol] 6.4 10*3/uL Normal 4.4-11.0 [facility] Comment on above: Performed By: #### L 500.4050, L100.0100, L3100.9000, L3300.1500, L3300.1750, L506.1000, L501.9520, L3300.6900, L3100.5125, L506.0400 #### [facility] [address] [place], [address] Comprehensive Metabolic Prof [facility] 10-17-2023 Albumin [Mass/Vol] 3.7 g/dL Normal 3.2-5.0 [facility] Comment on above: Order Comment: UNK Performed By: #### L 500.4050, L100.0100, L3100.9000, L3300.1500, L3300.1750, L506.1000, L501.9520, L3300.6900, L3100.5125, L506.0400 #### [facility] [address] [place], [address] Albumin/Globulin [Mass ratio] 0.8 {ratio} Low 0.9-2.4 [facility] Comment on above: Order Comment: UNK Performed By: #### L 500.4050, L100.0100, L3100.9000, L3300.1500, L3300.1750, L506.1000, L501.9520, L3300.6900, L3100.5125, L506.0400 #### [facility] [address] [place], [place], [id number] ALK P 89 U/L Normal 45-117 [facility] Comment on above: Order Comment: UNK Performed By: #### L 500.4050, L100.0100, L3100.9000, L3300.1500, L3300.1750, L506.1000, L501.9520, L3300.6900, L3100.5125, L506.0400 #### [facility] [address] [place], [place], [id number] ALT [Catalytic activity/Vol] 56 U/L Normal 13-56 [facility] Comment on above: Order Comment: UNK Performed By: #### L 500.4050, L100.0100, L3100.9000, L3300.1500, L3300.1750, L506.1000, L501.9520, L3300.6900, L3100.5125, L506.0400 #### [facility] [address] [place], [place], [id number] AST [Catalytic activity/Vol] 38 U/L High 15-37 [facility] Comment on above: Order Comment: UNK Performed By: #### L 500.4050, L100.0100, L3100.9000, L3300.1500, L3300.1750, L506.1000, L501.9520, L3300.6900, L3100.5125, L506.0400 #### [facility] [address] [place], [place], [id number] Bilirubin [Mass/Vol] 0.70 mg/dL Normal 0.20-1.00 [facility] Comment on above: Order Comment: UNK Result Comment: For patients on eltrombopag therapy, use of Dimension [place] TBIL is not recommended. Performed By: #### L 500.4050, L100.0100, L3100.9000, L3300.1500, L3300.1750, L506.1000, L501.9520, L3300.6900, L3100.5125, L506.0400 #### [facility] [address] [place], [place], [id number] BUN/CRE 15.9 RATIO Normal 10-20 [facility] Comment on above: Order Comment: UNK Performed By: #### L 500.4050, L100.0100, L3100.9000, L3300.1500, L3300.1750, L506.1000, L501.9520, L3300.6900, L3100.5125, L506.0400 #### [facility] [address] [place], [place], [id number] CA,Total 9.0 mg/dL Normal 8.5-10.1 [facility] Comment on above: Order Comment: UNK Performed By: #### L 500.4050, L100.0100, L3100.9000, L3300.1500, L3300.1750, L506.1000, L501.9520, L3300.6900, L3100.5125, L506.0400 #### [facility] [address] [place], [address] Chloride [Moles/Vol] 108 mmol/L High 98-107 [facility] Comment on above: Order Comment: UNK Performed By: #### L 500.4050, L100.0100, L3100.9000, L3300.1500, L3300.1750, L506.1000, L501.9520, L3300.6900, L3100.5125, L506.0400 #### [facility] [address] [place], [address] CO2 [Moles/Vol] 25.0 mmol/L Normal 21.0-32.0 [facility] Comment on above: Order Comment: UNK Performed By: #### L 500.4050, L100.0100, L3100.9000, L3300.1500, L3300.1750, L506.1000, L501.9520, L3300.6900, L3100.5125, L506.0400 #### [facility] [address] [place], [address] Creatinine [Mass/Vol] 0.69 mg/dL Normal 0.55-1.02 [facility] Comment on above: Order Comment: UNK Result Comment: The validity of the calculated GFR GFRAA in patients over 70 years has not been determined. Clinical correlation is essential. Performed By: #### L 500.4050, L100.0100, L3100.9000, L3300.1500, L3300.1750, L506.1000, L501.9520, L3300.6900, L3100.5125, L506.0400 #### [facility] [address] [place], [address] EST GFR - AA 132 mL/min Normal >60 [facility] Comment on above: Order Comment: UNK Result Comment: Afri can [place] GFR Calc Performed By: #### L 500.4050, L100.0100, L3100.9000, L3300.1500, L3300.1750, L506.1000, L501.9520, L3300.6900, L3100.5125, L506.0400 #### [facility] [address] [place], [address] GAP 8 Normal 5-15 [facility] Comment on above: Order Comment: UNK Performed By: #### L 500.4050, L100.0100, L3100.9000, L3300.1500, L3300.1750, L506.1000, L501.9520, L3300.6900, L3100.5125, L506.0400 #### [facility] [address] [place], [address] GFR/1.73 sq M.predicted among non-blacks MDRD (S/P/Bld) [Vol rate/Area] 109 mL/min/{1.73_m2} Normal >60 [facility] Comment on above: Order Comment: UNK Result Comment: Non- GFR Calc Performed By: #### L 500.4050, L100.0100, L3100.9000, L3300.1500, L3300.1750, L506.1000, L501.9520, L3300.6900, L3100.5125, L506.0400 #### [facility] [address] [place], [address] Globulin (S) [Mass/Vol] 4.6 g/dL High 2.2-4.2 [facility] Comment on above: Order Comment: UNK Performed By: #### L 500.4050, L100.0100, L3100.9000, L3300.1500, L3300.1750, L506.1000, L501.9520, L3300.6900, L3100.5125, L506.0400 #### [facility] [address] [place], [address] Glucose [Mass/Vol] 87 mg/dL Normal 74-106 [facility] Comment on above: Order Comment: UNK Performed By: #### L 500.4050, L100.0100, L3100.9000, L3300.1500, L3300.1750, L506.1000, L501.9520, L3300.6900, L3100.5125, L506.0400 #### [facility] [address] [place], [address] Potassium [Moles/Vol] 3.8 mmol/L Normal 3.5-5.1 [facility] Comment on above: Order Comment: UNK Performed By: #### L 500.4050, L100.0100, L3100.9000, L3300.1500, L3300.1750, L506.1000, L501.9520, L3300.6900, L3100.5125, L506.0400 #### [facility] [address] [place], [address] Sodium [Moles/Vol] 141 mmol/L Normal 136-145 [facility] Comment on above: Order Comment: UNK Performed By: #### L 500.4050, L100.0100, L3100.9000, L3300.1500, L3300.1750, L506.1000, L501.9520, L3300.6900, L3100.5125, L506.0400 #### [facility] [address] [place], [address] T PROT 8.3 g/dL High 6.4-8.2 [facility] Comment on above: Order Comment: UNK Performed By: #### L 500.4050, L100.0100, L3100.9000, L3300.1500, L3300.1750, L506.1000, L501.9520, L3300.6900, L3100.5125, L506.0400 #### [facility] [address] [place], [address] Urea nitrogen [Mass/Vol] 11 mg/dL Normal 7-18 [facility] Comment on above: Order Comment: UNK Performed By: #### L 500.4050, L100.0100, L3100.9000, L3300.1500, L3300.1750, L506.1000, L501.9520, L3300.6900, L3100.5125, L506.0400 #### [facility] [address] [place], [address] Estradiolon 10-17-2023 ESTRADIOL 72.6 pg/mL Normal [facility] Comment on above: Order Comment: UNK Result Comment: NORM AL REFERENCE RANGES FEMALE FOLLICULAR 21.4 - 164.8 pg/mL MID-CYCLE PEAK 49.9 - 367.2 pg/mL LUTEAL 40.2 - 259.0 pg/mL POST-MENOPAUSAL ON MHT <11.0 - 462.1 pg/mL NOT ON MHT <11.0 - 58.3 pg/mL MALE <11.0 - 52.5 pg/mL NOTE: [facility] HAS CONFIRMED THE DRUG FULVETRANT (FASLODEX) MAY CAUSE FALSELY ELEVATED ESTRADIOL RESULTS WHEN USING THIS TEST METHOD. IF PATIENT IS TAKING FULVESTRANT AN ALTERNATIVE METHOD SHOULD BE USED TO DETERMINE ESTRADIOL CONCENTRATION. Performed By: #### L 500.4050, L100.0100, L3100.9000, L3300.1500, L3300.1750, L506.1000, L501.9520, L3300.6900, L3100.5125, L506.0400 ####[facility] [address] [place], [address] Follicle Stimulating Hormone on 10-17-2023 FSH 6.9 mIU/mL Normal [facility] Comment on above: Order Comment: UNK Result Comment: NORMAL REFERENCE RANGES FEMALE FOLLICULAR 2.3 - 12.6 mIU/mL MID-CYCLE PEAK 5.2 - 17.5 mIU/mL LUTEAL 1.7 - 12.9 mIU/mL POST-MENOPAUSAL ON MHT 5.9 - 72.8 mIU/mL NOT ON MHT 12.7 - 132.2 mlU/mL MALE 0.7 - 10.8 mIU/mL Performed By: #### L 500.4050, L100.0100, L3100.9000, L3300.1500, L3300.1750, L506.1000, L501.9520, L3300.6900, L3100.5125, L506.0400 #### [facility] [address] [place], [place], [address] Gram Stainon 10-17-2023 GS Reason for Exam: vag inal discharge Gram Stain 3+ Gram positive rods No Gram negative diplococci 1+ White Blood Cells Score = 1 Interpretation: 0-3 Normal, 4-6 Intermediate, 7-10 Positive BV Normal [facility] Comment on above: Performed By: #### L 3890.6202 #### [facility] [address] [place], [place], [address] [employer] Office Visit Reporton 10-17-2023 [employer] Office Visit Report [facility] [address], [address] [place] [address] OFFICE VISIT Date of Service: 10/17/23 MR#: [id number] Acct: [id number] Name: JUANITA PAULINO Rep #: [id number] : 2000 Provider: DELMIS Canales Age/Sex: 23/F Location[place] [facility] [place] Status: Signed Intake Vital Signs 02/04/22 15:31 10/17/23 11:33 10/17/23 11:44 Height 5 ft 7 in 5 ft 7 in 5 ft 7 in Weight: 308 lb BMI 48.2 BP 122/80 H 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) Chief Complaint: annual, irreglar cycles, painful periods, pcos Is patient in pain?: No Allergies No Known Allergies Allergy (Verified 10/17/23 11:34) Is last menstrual period known: Yes Last Menstrual Period: 09/20/23 Post menopausal: No Patient : No : No Control Method: none PFSH Medical History Pre-eclampsia History of pre-term labor Infertility PCOS (polycystic ovarian syndrome) Surgical History H/O submucous nasal surgery Family History (Updated 10/17/23 @ 11:41 by Reina Combs) Mother Colon cancer Thyroid disorder Social History (Updated 10/17/23 @ 11:41 by Reina Combs) adopted: No household members: spouse and children housing: house number of children: 3 current occupational status: unemployed 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 Date Name GA/Weeks Outcome Route Bth Weight Infant Gen Labor Lgth Anesthesia Del Locatn Provider MARÍA 12/23/18 Fausto 02/04/22 Cristela 02/04/22 [facility] Encounter for routine gynecological examination Details: JUANITA PAULINO is a 23 year old who presents for annual exam. She reports heavy periods and irregular cycles. Filling pad and tampon within 2 hours. passing clots. This has been the case since July. She reports she had taken a test in August that was negative. Last PAP: 08/2022 normal History of abnormal PAP: no Last mammogram: never History of abnormal mammogram: n/a Colon cancer screening: never Other preventative health care screenings: Dr. Monse Mello; [facility]. Female Reproductive History Last Menstrual Period: 09/20/23 Cycle Length: <21 Associated symptoms: 10/01/2023 Questions: metorrhagia: Yes, sexually active: Yes, dyspareunia: No and PCB: No ROS Const Constitutional: Reports fatigue and lethargy (while on menses); Denies chills, fever(s), headache(s) or weight loss Eyes Eyes: Denies change in vision ENT ENT: Denies dizziness Resp Resp: Denies cough GI GI: Denies abdominal pain, constipation or nausea : Denies difficulty voiding, dysuria, hematuria, pelvic pain, prolapse symptoms, urinary incontinence, vaginal discharge, vaginal dryness, vaginal odor or vaginal pruritus Skin Skin/Breast: Denies alopecia or rash Neuro Neuro: Denies dizziness Psych Psych: Denies anxiety or depression Endo Endo: Denies cold intolerance, excessive sweating or heat intolerance Exam Const General: cooperative, healthy appearing, comfortable, no acute distress, well groomed and well hydrated Nutritional Appearance: well nourished Orientation: alert, awake and oriented x3 HENMT Head: normal to inspection and normocephalic Ears: hearing grossly normal bilaterally and external ears normal Nose: external nose normal Face and sinus: normal facial exam Eyes General: appearance normal, both eyes and all related structures Neck Neck: normal visual inspection, full ROM and no lymphadenopathy Thyroid: thyroid normal Chest Chest palpation inspection: normal inspection of the chest Breast inspection: normal inspection of the breasts and normal inspection of the axillae Breast palpation: normal palpation of the breasts, normal palpation of the axillae and no axillary lymphadenopathy Resp Effort Inspection: normal respiratory effort, able to speak in complete sentences and symmetric chest movement GI Inspection: normal to inspection Palpation: soft and no hepatosplenomegaly General: bladder normal to palpation External Female Exam: normal external appearance and normal appearance of the urethra Urethra: normal perez (more content not included)... Normal [facility] T4 Free Directon 10-17-2023 T4 FREE DIRECT 1.04 ng/dL Normal 0.76-1.46 [facility] Comment on above: Order Comment: UNK Performed By: #### L 500.4050, L100.0100, L3100.9000, L3300.1500, L3300.1750, L506.1000, L501.9520, L3300.6900, L3100.5125, L506.0400 #### [facility] [address] [facility] [place], [address] Thyroid Stim Hormone (TSH)on 10-17-2023 TSH 1.670 uIU/mL Normal 0.358-3.740 [facility] Comment on above: Order Comment: UNK Performed By: #### L 500.4050, L100.0100, L3100.9000, L3300.1500, L3300.1750, L506.1000, L501.9520, L3300.6900, L3100.5125, L506.0400 #### [facility] [address] [place], [address] Vitamin D,25 Hydroxyon 10-16 Vitamin D 25-OH 26.9 ng/mL Normal [facility] Comment on above: Result Comment: Sarina min D 25([place]) Status Range Deficiency <20 ng/mL (50nmol/L) Insufficiency 20 - 30 ng/mL (50 - 75 nmol/L) Sufficiency 30 - 100 ng/mL (75 - 250 nmol/L) Toxicity >100 ng/mL (>250 nmol/L) Performed By: #### L 500.4050, L100.0100, L3100.9000, L3300.1500, L3300.1750, L506.1000, L501.9520, L3300.6900, L3100.5125, L506.0400 #### [facility] [address] [place], [address] XR ANKLE MINIMUM 3 VIEWS LEF Ton 08-07-2023 XR ANKLE MINIMUM 3 VIEWS LEFT ORIGINAL HISTORY: Pain COMPARISON: No FINDINGS: There are no acute fractures or dislocations. Alignment is within normal limits. Joint spaces are intact. The soft tissues are unremarkable. IMPRESSION: No acute fracture Interpreted by: Kiran Marie MD Preliminary Report By: Kiran Marie MD Electronically signed By Kiran Marie MD Dictated Date: 08/07/2023 12:21:44 PM Prelim Date: 08/07/2023 12:22:15 PM Sign Date: 08/07/2023 12:22:15 PM Ordering Provider: ZEYNEP Renae [facility] ([place]) US TRANSVAGINAL NON OBon US TRANSVAGINAL NON OB ORIGINAL EXAMINATION: TRANSVAGINAL PELVIC ULTRASOUND2023 9:38 am Ultrasound Pelvis: Transabdominal and transvaginal study COMPARISON: None HISTORY: ORDERING SYSTEM PROVIDED HISTORY: Reason for Exam: abdominal pain. history of ovarian cysts., FINDINGS: The uterus is 9.3 x 3.6 x 5.0 cms. . No myometrial mass lesion is seen. The endometrial double wall thickness is 4.8 mm. Right ovary: 3.9 x 2.2 x 2.8 cm. Left ovary: 3.4 x 2.2 x 2.2 cm. There are small follicles in both ovaries. No dominant ovarian cyst.. No concerning ovarian cyst or mass is seen. There is blood flow to both ovaries. No pelvic or adnexal masses or significant free fluid is seen. IMPRESSION: Normal pelvic ultrasound. Interpreted by: Lenny Hill MD Preliminary Report By: Lenny Hill MD Electronically signed By Lenny Hill MD Dictated Date: 07/06/2023 8:44:23 AM Prelim Date: 07/06/2023 8:45:18 AM Sign Date: 07/06/2023 8:45:18 AM Ordering Provider: ARACELIS MORE [facility] ([place]) .Auto Diffon 06-26-2023 Basophil, Absolute 0.0 10 3/mcL Normal 0.0-0.2 [facility] ([place] Comment on above: Performed By: #### C BC GFRRANDAL MDW, ANEU, BMP #### [address] [address] Basophils/100 WBC (Bld) 0.2 % Normal 0.0-2.5 [facility] ([place]) Comment on above: Performed By: #### C BC GFRRANDAL MDW, ANEU, BMP #### [address] [address] Eosinophil, Absolute 0.2 10 3/mcL Normal 0.0-0.4 [facility] ([place]) Comment on above: Performed By: #### C BC, GFRRANDAL MDW, ANEU, BMP #### [address] [address] Eosinophils/100 WBC (Bld) 2.2 % Normal 0.0-7.0 [facility] ([place]) Comment on above: Performed By: #### C BC GFRRANDAL MDW, ANEU, BMP #### [address] [address] Lymphocyte, Absolute 1.5 10 3/mcL Normal 0.8-3.9 [facility] ([place] Comment on above: Performed By: #### C BC, GFRRANDAL MDW, ANEU, BMP #### [address] [address] Lymphocytes/100 WBC (Bld) 20.3 % Normal 10.0-50.0 [facility] ([place]) Comment on above: Performed By: #### C BC, GFR, SILVANA TEE, ANEU, BMP #### [address] [address] Monocyte, Absolute 0.4 10 3/mcL Normal 0.2-1.0 [facility] ([place] Comment on above: Performed By: #### C BC, GFR, SILVANA TEE, ANEU, BMP #### [address] [address] Monocytes/100 WBC (Bld) 5.9 % Normal 1.7-13.0 [facility] ([place]) Comment on above: Performed By: #### C BC, GFR, SILVANA TEE, ANEU, BMP #### [address] [address] Neutrophils/100 WBC (Bld) 71.4 % Normal 37.0-80.0 [facility] ([place]) Comment on above: Performed By: #### C BC, GFR, SILVANA TEE, ANEU, BMP #### [address] [address] .GFRon 06-26-2023 GFR Non- 92 ml/min/1.73sqm Normal [facility] ([place]) Comment on above: Result Comment: GFR Population mean for , Non- Americans Ages 20-29 = 116 mL/min/1.73 sq.m. Ages 30-39 = 107 mL/min/1.73 sq.m. Ages 40-49 = 99 mL/min/1.73 sq.m. Ages 50-59 = 93 mL/min/1.73 sq.m. Ages 60-69 = 85 mL/min/1.73 sq.m. Ages 70+ = 75 mL/min/1.73 sq.m. Chronic Kidney Disease: Less than 60 mL/min/1.73 square meters End Stage Renal Disease: Less than 15 mL/min/1.73 square meters Performed By: #### C BC, GFR, ADIFF, W, ANEU, BMP #### [address] [address] GFR 112 ml/min/1.73sqm Normal [facility] ([place]) Comment on above: Result Comment: GFR Population mean for , Non- Americans Ages 20-29 = 116 mL/min/1.73 sq.m. Ages 30-39 = 107 mL/min/1.73 sq.m. Ages 40-49 = 99 mL/min/1.73 sq.m. Ages 50-59 = 93 mL/min/1.73 sq.m. Ages 60-69 = 85 mL/min/1.73 sq.m. Ages 70+ = 75 mL/min/1.73 sq.m. Chronic Kidney Disease: Less than 60 mL/min/1.73 square meters End Stage Renal Disease: Less than 15 mL/min/1.73 square meters Performed By: #### C BC, GFR, ADIFF, MDW, ANEU, BMP #### [place] [address] .MDWon 06-26-2023 Monocyte Distribution Width 16.82 Normal 0.00-20.00 [facility] ([place]) Comment on above: Result Comment: For ED adult patients suspected of sepsis, MDW<=20.0 does not rule out sepsis or risk of sepsis Performed By: #### C BC, GFR, ADSILVANA WARNER, ANEU, BMP #### [address] [address] .NEUABSon 06-26-2023 Neutrophil, Absolute 5.3 10 3/mcL Normal 2.9-6.2 [facility] ([place]) Comment on above: Performed By: #### C BC, GFR, SILVANA TEE, ANEU, BMP #### [address] [address] .Urinalysis Microscopic (AO) on 06-26-2023 UA RBC None Seen Normal None Seen [facility] ([place]) Comment on above: Performed By: #### C BC, GFR, ADSILVANA WARNER, ANEU, BMP #### [address] [address] UA Squam Epithelial LOADED Abnormal None Seen [facility] ([place] Comment on above: Performed By: #### C BC, GFRRANDAL MDW, ANEU, BMP #### [address] [address] UA WBC 0-5 Abnormal None Seen [facility] ([place] Comment on above: Performed By: #### C BC, GFRRANDAL MDW, ANEU, BMP #### [address] [address] CBCon 06-26-2023 Erythrocyte distribution width (RBC) [Ratio] 14.6 % High 11.5-14.5 [facility] ([place] Comment on above: Performed By: #### C BC, GFRRANDAL MDW, ANEU, BMP #### [place] [address] Hematocrit (Bld) [Volume fraction] 38.3 % Normal 37.0-47.0 [facility] ([place] Comment on above: Performed By: #### C MAGDALENE GFRRANDAL MDW, ANEU, BMP #### [place] [address] Hgb 13.1 G/dL Normal 12.0-16.0 [facility] ([place] Comment on above: Performed By: #### C BC, GFRRANDAL MDW, ANEU, BMP #### [place] [address] MCH (RBC) [Entitic mass] 26.1 pg Low 27.0-31.2 [facility] ([place] Comment on above: Performed By: #### C BC, GFRRANDAL MDW, ANEU, BMP #### [place] [address] MCHC 34.1 G/dL Normal 33.0-37.0 [facility] ([place] Comment on above: Performed By: #### C BC, GFRRANDAL MDW, ANEU, BMP #### [address] [address] MCV (RBC) [Entitic vol] 76.7 fL Low 80.0-94.0 [facility] ([place] Comment on above: Performed By: #### C BC GFRRANDAL MDW, ANEU, BMP #### [address] [address] Platelet 224 10 3/mcL Normal 130-400 [facility] ([place] Comment on above: Performed By: #### C BC, GFRRANDAL MDW, ANEU, BMP #### [address] [address] Platelet mean volume (Bld) [Entitic vol] 9.7 fL Normal 7.4-10.4 [facility] ([place] Comment on above: Performed By: #### C NGOZI DEL CASTILLO ADIFF, MDW, ANEU, BMP #### [address] [address] RBC 5.00 10 6/mcL Normal 4.20-5.40 [facility] ([place] Comment on above: Performed By: #### C NGOZI DEL CATSILLO ADIFF, MDW, ANEU, BMP #### [address] [address] WBC 7.4 10 3/mcL Normal 4.6-10.8 [facility] ([place] Comment on above: Performed By: #### C MAGDALENE GFRRANDAL MDW, ANEU, BMP #### [address] [address] CMPon 06-26-2023 Albumin Level 3.9 G/dL Normal 3.5-5.0 [facility] ([place] Comment on above: Performed By: #### C MAGDALENE GFRRANDAL MDW, ANEU, BMP #### [address] [address] Albumin/Globulin [Mass ratio] 1.0 {ratio} Low 1.1-2.5 [facility] ([place] Comment on above: Performed By: #### C BC GFRVICTORINATIMMY, W, ANEU, BMP #### [address] [address] ALP [Catalytic activity/Vol] 97 U/L Normal 40-135 [facility] ([place] Comment on above: Performed By: #### C BC, GFR, ADTIMMY, W, ANEU, BMP #### [address] [address] ALT [Catalytic activity/Vol] 57 U/L Normal 14-59 [facility] ([place] Comment on above: Performed By: #### C BC, GFR, ADTIMMY, MDW, ANEU, BMP #### [address] [address] AST [Catalytic activity/Vol] 33 U/L Normal 10-40 [facility] ([place] Comment on above: Performed By: #### C BC, GFR, RANDAL, W, ANEU, BMP #### [address] [address] Bili Total 0.9 mg/dL Normal 0.2-1.0 [facility] ([place] Comment on above: Result Comment: Use of this assay is not recommended for patients undergoing treatment with eltrombopag due to the potential for falsely elevated results. Performed By: #### C BC, GFR, ADTIMMY, W, ANEU, BMP #### [address] [address] BUN/Creatinine Ratio 18 ratio Normal 7-27 [facility] [place] Comment [place]: Performed By: #### C BC, GFR, RANDAL, W, ANEU, BMP #### [address] [address] Calcium [Mass/Vol] 8.9 mg/dL Normal 8.4-10.2 [facility] ([place] Comment on above: Performed By: #### C BC, GFR, ADTIMMY, MDW, ANEU, BMP #### [address] [address] Chloride [Moles/Vol] 101 mmol/L Normal 98-107 [facility] [place] Comment on above: Performed By: #### C BC, GFR, RANDAL, SILVANA, ANEU, BMP #### [address] [address] CO2 [Moles/Vol] 29 mmol/L Normal 22-29 [facility] ([place] Comment on above: Performed By: #### C BC, GFR, RANDAL, SILVANA, ANEU, BMP #### [address] [address] Creatinine [Mass/Vol] 0.77 mg/dL Normal 0.55-1.02 [facility] ([place] Comment on above: Performed By: #### C BC, GFR, SILVANA TEE, ANEU, BMP #### [address] [address] Electrolyte Balance 9.0 mEq/L Normal 4.0-15.0 [facility] ([place] Comment on above: Performed By: #### C BC, GFR, RANDAL, SILVANA, ANEU, BMP #### [address] [address] Globulin 3.9 G/dL Normal [facility] ([place] Comment on above: Performed By: #### C BC, GFR, SILVANA TEE, ANEU, BMP #### [address] [address] Glucose [Mass/Vol] 126 mg/dL High 70-105 [facility] ([place] Comment on above: Performed By: #### C BC, GFR, RANDAL, SILVANA, ANEU, BMP #### [address] [address] Potassium [Moles/Vol] 3.8 mmol/L Normal 3.5-5.1 [facility] ([place] Comment on above: Performed By: #### C BC, GFR, ADTIMMY, W, ANEU, BMP #### [address] [address] Sodium [Moles/Vol] 139 mmol/L Normal 136-145 [facility] ([place] Comment on above: Performed By: #### C BC, GFR, RANDAL, SILVANA, ANEU, BMP #### [place] [id number] [place], [place] [address] Total Protein 7.8 G/dL Normal 6.4-8.2 [facility] ([place] Comment on above: Performed By: #### C BC, GFR, RANDAL, SILVANA, ANEU, BMP #### [place] [id number] [place], [place] [address] Urea nitrogen [Mass/Vol] 14 mg/dL Normal 7-18 [facility] ([place] Comment on above: Performed By: #### C BC, GFR, SILVANA TEE, ANEU, BMP #### [place] [id number] [place], [place] [address] LABORATORYOrdered By: SYSTEM SYSTEM on 06-26-2023 Albumin BCP dye [Mass/Vol] 3.9 G/dL Normal 3.5 - 5.0 G/dL AO ADM SS Albumin/Globulin [Mass ratio] 1.0 {ratio} Low 1.1 - 2.5 ratio AO ADM SS ALP [Catalytic activity/Vol] 97 U/L Normal 40 - 135 U/L AO ADM SS ALT With P-5'-P [Catalytic activity/Vol] 57 U/L Normal 14 - 59 U/L AO ADM SS AST With P-5'-P [Catalytic activity/Vol] 33 U/L Normal 10 - 40 U/L AO ADM SS Basophil, Absolute 0.0 103/mcL Normal 0.0 - 0.2 10^3/mcL AO Workflow SS Basophils/100 WBC (Bld) 0.2 % Normal 0.0 - 2.5 % AO Workflow SS Bilirubin [Mass/Vol] 0.9 mg/dL Normal 0.2 - 1 .0 mg/dL AO ADM SS Comment on above: Interpretive Data: U se of this assay is not recommended for patients undergoing treatment with eltrombopag due to the potential for falsely elevated results. Calcium [Mass/Vol] 8.9 mg/dL Normal 8.4 - 10. 2 mg/dL AO ADM SS Chloride [Moles/Vol] 101 mmol/L Normal 98 - 10 7 mmol/L AO ADM SS CO2 [Moles/Vol] 29 mmol/L Normal 22 - 29 mmol/L AO ADM SS Creatinine [Mass/Vol] 0.77 mg/dL Normal 0.55 - 1.02 mg/dL AO ADM SS Electrolyte Balance 9.0 mEq/L Normal 4.0 - 15 .0 mEq/L AO ADM SS Eosinophil, Absolute 0.2 103/mcL Normal 0.0 - 0 .4 10^3/mcL AO Workflow SS Eosinophils/100 WBC (Bld) 2.2 % Normal 0.0 - 7.0 % AO Workflow SS Erythrocyte distribution width (RBC) [Ratio] 14.6 % High 11.5 - 14.5 % AO Workflow SS GFR/1.73 sq M.predicted among blacks MDRD (S/P/Bld) [Vol rate/Area] 112 ml/min/1.73sqm Invalid Interpretation Code AO Chemistry S Comment on above: Interpretive Data: GFR Population mean for , Non- Americans Ages 20-29 = 116 mL/min/1.73 sq.m. Ages 30-39 = 107 mL/min/1.73 sq.m. Ages 40-49 = 99 mL/min/1.73 sq.m. Ages 50-59 = 93 mL/min/1.73 sq.m. Ages 60-69 = 85 mL/min/1.73 sq.m. Ages 70+ = 75 mL/min/1.73 sq.m. Chronic Kidney Disease: Less than 60 mL/min/1.73 square meters End Stage Renal Disease: Less than 15 mL/min/1.73 square meters GFR/1.73 sq M.predicted among non-blacks MDRD (S/P/Bld) [Vol rate/Area] 92 ml/min/1.73sqm Invalid Interpretation Code AO Chemistry S Comment on above: Interpretive Data: GFR Population mean for , Non- Americans Ages 20-29 = 116 mL/min/1.73 sq.m. Ages 30-39 = 107 mL/min/1.73 sq.m. Ages 40-49 = 99 mL/min/1.73 sq.m. Ages 50-59 = 93 mL/min/1.73 sq.m. Ages 60-69 = 85 mL/min/1.73 sq.m. Ages 70+ = 75 mL/min/1.73 sq.m. Chronic Kidney Disease: Less than 60 mL/min/1.73 square meters End Stage Renal Disease: Less than 15 mL/min/1.73 square meters Globulin 3.9 G/dL Invalid Interpretation Code AO ADM SS Glucose [Mass/Vol] 126 mg/dL High 70 - 105 mg/dL AO ADM SS Hematocrit (Bld) [Volume fraction] 38.3 % Normal 37.0 - 47.0 % AO Workflow SS Hemoglobin (Bld) [Mass/Vol] 13.1 G/dL Normal 12.0 - 16.0 G/dL AO Workflow SS Lipase [Catalytic activity/Vol] 37 U/L Normal 16 - 77 U/L AO ADM SS Lymphocyte, Absolute 1.5 103/mcL Normal 0.8 - 3 .9 10^3/mcL AO Workflow SS Lymphocytes/100 WBC (Bld) 20.3 % Normal 10.0 - 50.0 % AO Workflow SS MCH (RBC) [Entitic mass] 26.1 pg Low 27.0 - 31.2 pg AO Workflow SS MCHC 34.1 G/dL Normal 33.0 - 37.0 G/dL AO Workflow SS MCV (RBC) [Entitic vol] 76.7 fL Low 80.0 - 94.0 fL AO Workflow SS Monocyte distribution width Auto (Bld) [Entitic vol] 16.82 1 Normal 0.00 - 20.00 AO Workflow SS Comment on above: Result Comment: For ED adult patients suspected of sepsis, MDW<=20.0 does not rule out sepsis or risk of sepsis Monocyte, Absolute 0.4 103/mcL Normal 0.2 - 1.0 10^3/mcL AO Workflow SS Monocytes/100 WBC (Bld) 5.9 % Normal 1.7 - 13.0 % AO Workflow SS Neutrophil, Absolute 5.3 103/mcL Normal 2.9 - 6 .2 10^3/mcL AO Workflow SS Neutrophils/100 WBC (Bld) 71.4 % Normal 37.0 - 80.0 % AO Workflow SS Platelet mean volume (Bld) [Entitic vol] 9.7 fL Normal 7.4 - 10.4 fL AO Workflow SS Platelets (Bld) [#/Vol] 224 103/mcL Normal 130 - 400 10^3/mcL AO Workflow SS Potassium [Moles/Vol] 3.8 mmol/L Normal 3.5 - 5.1 mmol/L AO ADM SS Protein [Mass/Vol] 7.8 G/dL Normal 6.4 - 8.2 G/dL AO ADM SS RBC (Bld) [#/Vol] 5.00 106/mcL Normal 4.20 - 5.4 0 10^6/mcL AO Workflow SS Sodium [Moles/Vol] 139 mmol/L Normal 136 - 145 mmol/L AO ADM SS Urea nitrogen [Mass/Vol] 14 mg/dL Normal 7 - 18 mg/dL AO ADM SS Urea nitrogen/Creatinine [Mass ratio] 18 ratio Normal 7 - 27 ratio AO ADM SS WBC (Bld) [#/Vol] 7.4 103/mcL Normal 4.6 - 10.8 10^3/mcL AO Workflow SS LABORATORYOrdered By: Suri Alexander on 06-26-2023 Appearance (U) Clear (06/26/23 12:23 PM) Normal Clear AO Auto Urine SS Bilirubin Ql (U) Negative (06/26/23 12:23 PM) Normal Negative AO Auto Urine SS Color (U) Yellow (06/26/23 12:23 PM) Normal AO Auto Urine SS Glucose Test strip (U) [Mass/Vol] Negative Normal Negative AO Auto Urine SS Hemoglobin Auto test strip (U) [Mass/Vol] Negative (06/26/23 12:23 PM) Normal Negative AO Auto Urine SS Ketones Ql (U) Negative Normal Negative AO Auto Urine SS UA Nitrite Negative (06/26/23 12:23 PM) Normal Negative AO Auto Urine SS UA Spec Grav >=1.030 *ABN* (06/26/23 12:23 PM) Invalid Interpretation Code 1.015-1.025 AO Auto Urine SS UA Specimen Type Clean Catch (06/26/23 12:23 PM) Normal AO Auto Urine SS UA Urobilinogen 0.2 E.U./dL Normal 0.2-1.0 AO Auto Urine SS LABORATORYOrdered By: Ramon Campbell on 06-26-2023 HCG ( test) Ql Negative (06/26/23 12:23 PM) Normal AO Manual Urine SS test (u) int Not detected Invalid Interpretation Code AO Manual Urine SS UA Leuk Est Small *ABN* (06/26/23 12:23 PM) Invalid Interpretation Code Negative AO Auto Urine SS UA pH 5.5 (06/26/23 12:23 PM) Normal 5.0 - 8.0 AO Auto Urine SS UA Protein Negative Normal Negative AO Auto Urine SS UA RBC None Seen /HPF Normal None Seen AO Auto Urine SS UA Squam Epithelial LOADED /HPF Invalid Interpretation Code None Seen AO Auto Urine SS WBC LM.HPF (Urine sed) [#/Area] 0-5 /HPF Invalid Interpretation Code None Seen AO Auto Urine SS LIPon 06-26-2023 Lipase Level 37 U/L Normal 16-77 [facility] ([place] Comment on above: Performed By: #### C MAGDALENE, RANDAL MELVIN MDW, ANEU, BMP #### [address] [address] PREGUon 06-26-2023 HCG ( test) Ql (U) Negative Normal [facility] ([place] Comment on above: Performed By: #### C NGOZI DEL CASTILLO ADIFF, MDW, ANEU, BMP #### [address] [address] test (u) int Not detected Invalid Interpretation Code [facility] ([place] Comment on above: Performed By: #### C NGOZI DEL CASTILLO ADIFF, MDW, ANEU, BMP #### [address] [address] UAon 06-26-2023 Color (U) Yellow Normal [facility] ([place] Comment on above: Performed By: #### C NGOZI DEL CASTILLO ADIFF, MDW, ANEU, BMP #### [address] [address] Glucose (U) [Mass/Vol] Negative Normal Negative [facility] ([place] Comment on above: Performed By: #### C NGOZI DEL CASTILLO ADIFF, MDW, ANEU, BMP #### [address] [address] Ketones Ql (U) Negative Normal Negative [facility] ([place] Comment on above: Performed By: #### C NGOZI DEL CASTILLO ADIFF, MDW, ANEU, BMP #### [address] [address] UA Appear Clear Normal Clear [facility] ([place] Comment on above: Performed By: #### C NGOZI DEL CASTILLO ADIFF, MDW, ANEU, BMP #### [address] [address] UA Blood Negative Normal Negative [facility] ([place] Comment on above: Performed By: #### C BC, GFR, ADTIMMY, W, ANEU, BMP #### [address] [address] UA Nitrite Negative Normal Negative [facility] ([place] Comment on above: Performed By: #### C BC, GFR, RANDAL, W, ANEU, BMP #### [address] [address] UA Spec Grav >=1.030 Abnormal 1.015-1.025 [facility] ([place] Comment on above: Performed By: #### C BC, GFR, RANDAL, W, ANEU, BMP #### [address] [address] UA Specimen Type Clean Catch Normal [facility] ([place] Comment on above: Performed By: #### C BC, GFR, RANDAL, W, ANEU, BMP #### [address] [address] UA Urobilinogen 0.2 E.U./dL Normal 0.2-1.0 [facility] ([place] Comment on above: Performed By: #### C BC, GFR, ADTIMMY, W, ANEU, BMP #### [address] [address] Urobilinogen (U) [Mass/Vol] Negative Normal Negative [facility] ([place] Comment on above: Performed By: #### C BC, GFR, ADTIMMY, W, ANEU, BMP #### [address] [address] UA Leuk Est Small Abnormal Negative [facility] ([place] Comment on above: Performed By: #### C BC, GFR, ADTIMMY, MDW, ANEU, BMP #### [address] [address] UA pH 5.5 Normal 5.0 - 8.0 [facility] ([place] Comment on above: Performed By: #### C MAGDALENE, RANDAL MELVIN MDW, ANEU, BMP #### [address] [place], [place] [address] UA Protein Negative Normal Negative [facility] ([place] Comment on above: Performed By: #### C MAGDALENE, RANDAL MELVIN MDW, ANEU, BMP #### [address] [place], [place] [address] US ABDOMEN COMPLETEon 2023 US ABDOMEN COMPLETE ORIGINAL EXAMINATION: COMPLETE ABDOMINAL ULTRASOUND06/26/2023 1:33 pm TECHNIQUE: Multiple real time sonographic images of the abdomen were obtained assessing go-scale appearance and color Doppler. COMPARISON: CT abdomen pelvis 04/03/2023, ultrasound dated 04/03/2023 HISTORY: ORDERING SYSTEM PROVIDED HISTORY: Reason for Exam: RUQ abdominal pain FINDINGS: Suboptimal exam secondary to patient body habitus. PANCREAS: Partially obscured by bowel gas. The visualized portions of the pancreas are normal in size and echogenicity. LIVER: The visualized liver is normal in size and contour with no hepatic mass identified. Mildly increased hepatic parenchymal echogenicity is noted. GALLBLADDER/BILARY: Negative sonographic Taylor's sign. The visualized gallbladder is unremarkable without pericholecystic fluid, wall thickening or stones. Nointrahepatic biliary ductal dilatation. CBD measures 4 mm. SPLEEN: The visualized spleen is normal in size and echogenicity. KIDNEYS: The visualized kidneys shows no pelvicaliectasis. VASCULATURE: Suboptimal visualization of the aorta and IVC due to patient body habitus and overlying bowel gas. ASCITES: None. IMPRESSION: No acute sonographic abnormality. Mildly increased hepatic parenchymal echogenicity suggestive of hepatic steatosis. I have personally reviewed the images of this examination and agree with the resident's findings and interpretation. Interpreted by: Alex Tejada DO Preliminary Report By: Terry Molina Electronically signed By Alex Tejada DO Dictated Date: 06/26/2023 1:43:35 PM Prelim Date: 06/26/2023 2:29:44 PM Sign Date: 06/26/2023 2:29:44 PM Ordering Provider: FELIPA Renae [facility] ([place]) FOODADon 05-20-2023 Class Description Comment Normal [facility] ([place] Comment on above: Result Comment: Levels of Specific IgE Class Description of Class ----- < 0.10 0 Negative 0.10 - 0.31 0/I Equivocal/Low 0.32 - 0.55 I Low 0.56 - 1.40 II Moderate 1.41 - 3.90 III High 3.91 - 19.00 IV Very High 19.01 - 100.00 V Very High >100.00 Very High Performed By: #### C NGOZI DEL CASTILLO ADIFF, MDW, ANEU, BMP #### [address] [address] IgE Clam F207 <0.10 Normal Class 0 [facility] ([place] Comment on above: Performed By: #### C NGOZI DEL CASTILLO ADIFF, MDW, ANEU, BMP #### [address] [address] IgE Codfish F003 <0.10 Normal Class 0 [facility] ([place] Comment on above: Performed By: #### C NGOZI DEL CASTILLO ADIFF, MDW, ANEU, BMP #### [address] [address] IgE Garland F008 <0.10 Normal Class 0 [facility] ([place] Comment on above: Performed By: #### C MAGDALENE GFRRANDAL MDW, ANEU, BMP #### [address] [address] IgE Egg White F001 0.15 kunits/L Abnormal Class 0/I [facility] ([place] Comment on above: Performed By: #### C NGOZI DEL CASTILLO ADIFF, MDW, ANEU, BMP #### [address] [address] IgE Milk F002 0.26 kunits/L Abnormal Class 0/I [facility] ([place] Comment on above: Performed By: #### C MAGDALENE, GFRRANDAL MDW, ANEU, BMP #### [address] [address] IgE Peanut F013 <0.10 Normal Class 0 [facility] ([place] Comment on above: Performed By: #### C BC, GFR, RANDAL, SILVANA, ANEU, BMP #### [address] [address] IgE Scallop F338 <0.10 Normal Class 0 [facility] ([place] Comment on above: Performed By: #### C BC, GFR, RANDAL, SILVANA, ANEU, BMP #### [address] [address] IgE Sesame Seed F010 <0.10 Normal Class 0 [facility] [place] Comment on above: Result Comment: Perf ormed At: [facility] [address] [id number] Jesus Arias MD Ph:[phone] Performed By: #### C BC, GFR, SILVANA TEE, ANEU, BMP #### [address] [address] IgE Shrimp F024 <0.10 Normal Class 0 [facility] ([place] Comment on above: Performed By: #### C MAGDALENE, GFRRANDAL MDW, ANEU, BMP #### [address] [address] IgE Soybean F014 <0.10 Normal Class 0 [facility] ([place] Comment on above: Performed By: #### C BC, GFR, SILVANA TEE, ANEU, BMP #### [address] [address] IgE Eagle F256 <0.10 Normal Class 0 [facility] ([place] Comment on above: Performed By: #### C BC, GFRRANDAL MDW, ANEU, BMP #### [address] [address] IgE Wheat F004 0.22 kunits/L Abnormal Class 0/I [facility] ([place] Comment on above: Performed By: #### C BC, GFRRANDAL MDW, ANEU, BMP #### [address] [address] .Auto Diffon 05-16-2023 Basophil, Absolute 0.1 10 3/mcL Normal 0.0-0.2 [facility] [place] Comment on above: Performed By: #### C BC, GFR, RANDAL, SILVANA, ANEU, BMP #### [address] [address] Basophils/100 WBC (Bld) 1.0 % Normal 0.0-2.5 [facility] ([place] Comment on above: Performed By: #### C BC, GFR, RANDAL, SILVANA, ANEU, BMP #### [address] [address] Eosinophil, Absolute 0.3 10 3/mcL Normal 0.0-0.4 [facility] ([place] Comment on above: Performed By: #### C BC, GFR, RANDAL, SILVANA, ANEU, BMP #### [address] [address] Eosinophils/100 WBC (Bld) 4.0 % Normal 0.0-7.0 [facility] ([place] Comment on above: Performed By: #### C BC, GFR, RANDAL, SILVANA, ANEU, BMP #### [address] [address] Lymphocyte, Absolute 2.3 10 3/mcL Normal 0.8-3.9 [facility] ([place] Comment on above: Performed By: #### C BC, GFR, RANDAL, SILVANA, ANEU, BMP #### [address] [address] Lymphocytes/100 WBC (Bld) 33.1 % Normal 10.0-50.0 [facility] ([place] Comment on above: Performed By: #### C BC, GFR, RANDAL, SILVANA, ANEU, BMP #### [address] [address] Monocyte, Absolute 0.5 10 3/mcL Normal 0.2-1.0 [facility] [place] Comment on above: Performed By: #### C BC, GFR, ADIFF, MDW, ANEU, BMP #### [address] [address] Monocytes/100 WBC (Bld) 7.2 % Normal 1.7-13.0 [facility] ([place] Comment on above: Performed By: #### C BC, GFR, ADIFF, MDW, ANEU, BMP #### [address] [address] Neutrophils/100 WBC (Bld) 54.7 % Normal 37.0-80.0 [facility] ([place] Comment on above: Performed By: #### C BC, GFR, ADTIMMY, W, ANEU, BMP #### [address] [address] .GFRon 05-16-2023 GFR Non- 92 ml/min/1.73sqm Normal [facility] ([place] Comment on above: Result Comment: GFR Population mean for , Non- Americans Ages 20-29 = 116 mL/min/1.73 sq.m. Ages 30-39 = 107 mL/min/1.73 sq.m. Ages 40-49 = 99 mL/min/1.73 sq.m. Ages 50-59 = 93 mL/min/1.73 sq.m. Ages 60-69 = 85 mL/min/1.73 sq.m. Ages 70+ = 75 mL/min/1.73 sq.m. Chronic Kidney Disease: Less than 60 mL/min/1.73 square meters End Stage Renal Disease: Less than 15 mL/min/1.73 square meters Performed By: #### C BC, GFR, ADIFF, MDW, ANEU, BMP #### [address] [address] GFR 112 ml/min/1.73sqm Normal [facility] ([place] Comment on above: Result Comment: GFR Population mean for , Non- Americans Ages 20-29 = 116 mL/min/1.73 sq.m. Ages 30-39 = 107 mL/min/1.73 sq.m. Ages 40-49 = 99 mL/min/1.73 sq.m. Ages 50-59 = 93 mL/min/1.73 sq.m. Ages 60-69 = 85 mL/min/1.73 sq.m. Ages 70+ = 75 mL/min/1.73 sq.m. Chronic Kidney Disease: Less than 60 mL/min/1.73 square meters End Stage Renal Disease: Less than 15 mL/min/1.73 square meters Performed By: #### C BC, GFR, SILVANA TEE, ANEU, BMP #### [address] [address] .MDWon 05-16-2023 Monocyte Distribution Width 17.01 Normal 0.00-20.00 [facility] ([place] Comment on above: Result Comment: For ED adult patients suspected of sepsis, MDW<=20.0 does not rule out sepsis or risk of sepsis Performed By: #### C BC, GFR, SILVANA TEE, ANEU, BMP #### [address] [address] .NEUABSon 05-16-2023 Neutrophil, Absolute 3.8 10 3/mcL Normal 2.9-6.2 [facility] ([place] Comment on above: Performed By: #### C BC, GFR, SILVANA TEE, ANEU, BMP #### [address] [address] BMPon 05-16-2023 BUN/Creatinine Ratio 22 ratio Normal 7-27 [facility] [place] Comment on above: Performed By: #### C BC, GFR, SILVANA TEE, ANEU, BMP #### [address] [address] Calcium [Mass/Vol] 8.9 mg/dL Normal 8.4-10.2 [facility] ([place] Comment on above: Performed By: #### C BC, GFR, SILVANA TEE, ANEU, BMP #### [address] [address] Chloride [Moles/Vol] 101 mmol/L Normal 98-107 [facility] [place] Comment on above: Performed By: #### C BC, GFR, ADTIMMY, W, ANEU, BMP #### [address] [address] CO2 [Moles/Vol] 25 mmol/L Normal 22-29 [facility] ([place] Comment on above: Performed By: #### C BC, GFR, ADTIMMY, W, ANEU, BMP #### [address] [address] Creatinine [Mass/Vol] 0.77 mg/dL Normal 0.55-1.02 [facility] ([place] Comment on above: Performed By: #### C BC, GFR, RANDAL, W, ANEU, BMP #### [address] [address] Electrolyte Balance 11.0 mEq/L Normal 4.0-15.0 [facility] ([place] Comment on above: Performed By: #### C BC, GFR, RANDAL, W, ANEU, BMP #### [address] [address] Glucose [Mass/Vol] 86 mg/dL Normal 70-105 [facility] ([place] Comment on above: Performed By: #### C BC, GFR, ADTIMMY, W, ANEU, BMP #### [address] [address] Potassium [Moles/Vol] 4.1 mmol/L Normal 3.5-5.1 [facility] ([place] Comment on above: Performed By: #### C BC, GFR, ADTIMMY, MDW, ANEU, BMP #### [address] [address] Sodium [Moles/Vol] 137 mmol/L Normal 136-145 [facility] ([place] Comment on above: Performed By: #### C BC, GFR, ADIFF, MDW, ANEU, BMP #### [address] [address] Urea nitrogen [Mass/Vol] 17 mg/dL Normal 7-18 [facility] ([place] Comment on above: Performed By: #### C BC, GFR, RANDAL, W, ANEU, BMP #### [address] [address] CBCon 05-16-2023 Erythrocyte distribution width (RBC) [Ratio] 15.5 % High 11.5-14.5 [facility] ([place]) Comment on above: Performed By: #### C BC, GFR, RANDAL, W, ANEU, BMP #### [place] [id number] Hematocrit (Bld) [Volume fraction] 38.5 % Normal 37.0-47.0 [facility] ([place]) Comment on above: Performed By: #### C BC, GFR, RANDAL, W, ANEU, BMP #### [place] [id number] Hgb 13.2 G/dL Normal 12.0-16.0 [facility] ([place]) Comment on above: Performed By: #### C BC, GFR, RANDAL, W, ANEU, BMP #### [address] [address] MCH (RBC) [Entitic mass] 26.0 pg Low 27.0-31.2 [facility] ([place]) Comment on above: Performed By: #### C BC, GFR, RANDAL, MDW, ANEU, BMP #### [place] [id number] MCHC 34.3 G/dL Normal 33.0-37.0 [facility] ([place]) Comment on above: Performed By: #### C BC, GFR, RANDAL, W, ANEU, BMP #### [address] [id number] MCV (RBC) [Entitic vol] 75.9 fL Low 80.0-94.0 [facility] ([place]) Comment on above: Performed By: #### C BC, GFR, RANDAL, MDW, ANEU, BMP #### [place] [id number] Platelet 248 10 3/mcL Normal 130-400 [facility] ([place]) Comment on above: Performed By: #### C MAGDALENE, GFRRANDAL MDW, FABI, BMP #### [address] [address] Platelet mean volume (Bld) [Entitic vol] 9.7 fL Normal 7.4-10.4 [facility] ([place]) Comment on above: Performed By: #### C MAGDALENE, GFRRANDAL MDW, ANEU, BMP #### [address] [address] RBC 5.07 10 6/mcL Normal 4.20-5.40 [facility] ([place]) Comment on above: Performed By: #### C MAGDALENE, GFRRANDAL MDW, FABI, BMP #### [place] [id number] [place], [place] [address] WBC 7.0 10 3/mcL Normal 4.6-10.8 [facility] ([place]) Comment on above: Performed By: #### C MAGDALENE, GFRRANDAL MDW, ANEU, BMP #### [address] [address] LABORATORYOrdered By: SYSTEM SYSTEM on 05-16-2023 Basophil, Absolute 0.1 103/mcL Normal 0.0 - 0.2 10^3/mcL AO Workflow SS Basophils/100 WBC (Bld) 1.0 % Normal 0.0 - 2.5 % AO Workflow SS Calcium [Mass/Vol] 8.9 mg/dL Normal 8.4 - 10. 2 mg/dL AO ADM SS Chloride [Moles/Vol] 101 mmol/L Normal 98 - 10 7 mmol/L AO ADM SS CO2 [Moles/Vol] 25 mmol/L Normal 22 - 29 mmol/L AO ADM SS Creatinine [Mass/Vol] 0.77 mg/dL Normal 0.55 - 1.02 mg/dL AO ADM SS Electrolyte Balance 11.0 mEq/L Normal 4.0 - 15 .0 mEq/L AO ADM SS Eosinophil, Absolute 0.3 103/mcL Normal 0.0 - 0 .4 10^3/mcL AO Workflow SS Eosinophils/100 WBC (Bld) 4.0 % Normal 0.0 - 7.0 % AO Workflow SS Erythrocyte distribution width (RBC) [Ratio] 15.5 % High 11.5 - 14.5 % AO Workflow SS GFR/1.73 sq M.predicted among blacks MDRD (S/P/Bld) [Vol rate/Area] 112 ml/min/1.73sqm Invalid Interpretation Code AO Chemistry S Comment on above: Interpretive Data: GFR Population mean for , Non- Americans Ages 20-29 = 116 mL/min/1.73 sq.m. Ages 30-39 = 107 mL/min/1.73 sq.m. Ages 40-49 = 99 mL/min/1.73 sq.m. Ages 50-59 = 93 mL/min/1.73 sq.m. Ages 60-69 = 85 mL/min/1.73 sq.m. Ages 70+ = 75 mL/min/1.73 sq.m. Chronic Kidney Disease: Less than 60 mL/min/1.73 square meters End Stage Renal Disease: Less than 15 mL/min/1.73 square meters GFR/1.73 sq M.predicted among non-blacks MDRD (S/P/Bld) [Vol rate/Area] 92 ml/min/1.73sqm Invalid Interpretation Code AO Chemistry S Comment on above: Interpretive Data: GFR Population mean for , Non- Americans Ages 20-29 = 116 mL/min/1.73 sq.m. Ages 30-39 = 107 mL/min/1.73 sq.m. Ages 40-49 = 99 mL/min/1.73 sq.m. Ages 50-59 = 93 mL/min/1.73 sq.m. Ages 60-69 = 85 mL/min/1.73 sq.m. Ages 70+ = 75 mL/min/1.73 sq.m. Chronic Kidney Disease: Less than 60 mL/min/1.73 square meters End Stage Renal Disease: Less than 15 mL/min/1.73 square meters Glucose [Mass/Vol] 86 mg/dL Normal 70 - 105 mg/dL AO ADM SS Hematocrit (Bld) [Volume fraction] 38.5 % Normal 37.0 - 47.0 % AO Workflow SS Hemoglobin (Bld) [Mass/Vol] 13.2 G/dL Normal 12.0 - 16.0 G/dL AO Workflow SS Lymphocyte, Absolute 2.3 103/mcL Normal 0.8 - 3 .9 10^3/mcL AO Workflow SS Lymphocytes/100 WBC (Bld) 33.1 % Normal 10.0 - 50.0 % AO Workflow SS MCH (RBC) [Entitic mass] 26.0 pg Low 27.0 - 31.2 pg AO Workflow SS MCHC 34.3 G/dL Normal 33.0 - 37.0 G/dL AO Workflow SS MCV (RBC) [Entitic vol] 75.9 fL Low 80.0 - 94.0 fL AO Workflow SS Monocyte distribution width Auto (Bld) [Entitic vol] 17.01 1 Normal 0.00 - 20.00 AO Workflow SS Comment on above: Result Comment: For ED adult patients suspected of sepsis, MDW<=20.0 does not rule out sepsis or risk of sepsis Monocyte, Absolute 0.5 103/mcL Normal 0.2 - 1.0 10^3/mcL AO Workflow SS Monocytes/100 WBC (Bld) 7.2 % Normal 1.7 - 13.0 % AO Workflow SS Neutrophil, Absolute 3.8 103/mcL Normal 2.9 - 6 .2 10^3/mcL AO Workflow SS Neutrophils/100 WBC (Bld) 54.7 % Normal 37.0 - 80.0 % AO Workflow SS Platelet mean volume (Bld) [Entitic vol] 9.7 fL Normal 7.4 - 10.4 fL AO Workflow SS Platelets (Bld) [#/Vol] 248 103/mcL Normal 130 - 400 10^3/mcL AO Workflow SS Potassium [Moles/Vol] 4.1 mmol/L Normal 3.5 - 5.1 mmol/L AO ADM SS RBC (Bld) [#/Vol] 5.07 106/mcL Normal 4.20 - 5.4 0 10^6/mcL AO Workflow SS Sodium [Moles/Vol] 137 mmol/L Normal 136 - 145 mmol/L AO ADM SS Urea nitrogen [Mass/Vol] 17 mg/dL Normal 7 - 18 mg/dL AO ADM SS Urea nitrogen/Creatinine [Mass ratio] 22 ratio Normal 7 - 27 ratio AO ADM SS WBC (Bld) [#/Vol] 7.0 103/mcL Normal 4.6 - 10.8 10^3/mcL AO Workflow SS HCGQon 05-15-2023 hCG, quantitative <1.0 Normal [facility] ([place]) Comment on above: Result Comment: HCG Levels with Gestation age: 0.2- 1 week. . . . . . . . . . . . . . . 5 - 50 mIU/mL 1-2 weeks . . . . . . . . . . . . . . . 50 - 500 mIU/mL 2-3 weeks . . . . . . . . . . . . . . . 100 - 5,000 mIU/ml 3-4 weeks . . . . . . . . . . . . . . . 500 - 10,000 mIU/mL 4-5 weeks . . . . . . . . . . . . . . . 1,000 - 5,000 mIU/mL 5-6 weeks . . . . . . . . . . . . . . . 10,000 - 100,000 mIU/mL 6-8 weeks . . . . . . . . . . . . . . . 15,000 - 200,000 mIU/mL 2-3 months . . . . . . . . . . . . . . . 10,000 - 100,000 mIU/mL Performed By: #### C BC, GFR, ADIFF, MDW, ANEU, BMP #### [place] [address] LABORATORYOrdered By: SYSTEM SYSTEM on 05-15-2023 HCG Qn mIU/mL Invalid Interpretation Code AO ADM SS Comment on above: Interpretive Data: H CG Levels with Gestation age: 0.2- 1 week. . . . . . . . . . . . . . . 5 - 50 mIU/mL 1-2 weeks . . . . . . . . . . . . . . . 50 - 500 mIU/mL 2-3 weeks . . . . . . . . . . . . . . . 100 - 5,000 mIU/ml 3-4 weeks . . . . . . . . . . . . . . . 500 - 10,000 mIU/mL 4-5 weeks . . . . . . . . . . . . . . . 1,000 - 5,000 mIU/mL 5-6 weeks . . . . . . . . . . . . . . . 10,000 - 100,000 mIU/mL 6-8 weeks . . . . . . . . . . . . . . . 15,000 - 200,000 mIU/mL 2-3 months . . . . . . . . . . . . . . . 10,000 - 100,000 mIU/mL .Auto Diffon 04-03-2023 Basophil, Absolute 0.0 10 3/mcL Normal 0.0-0.2 [facility] [place] Comment on above: Performed By: #### C BC, GFR, ADIFF, MDW, ANEU, BMP #### [address] [address] Basophils/100 WBC (Bld) 0.2 % Normal 0.0-2.5 [facility] ([place]) Comment on above: Performed By: #### C BC, GFR, ADIFF, MDW, ANEU, BMP #### [address] [address] Eosinophil, Absolute 0.2 10 3/mcL Normal 0.0-0.4 [facility] ([place]) Comment on above: Performed By: #### C BC, GFR, ADIFF, MDW, ANEU, BMP #### [address] [address] Eosinophils/100 WBC (Bld) 3.4 % Normal 0.0-7.0 [facility] ([place]) Comment on above: Performed By: #### C BC, GFR, ADIFF, MDW, ANEU, BMP #### [address] [address] Lymphocyte, Absolute 1.7 10 3/mcL Normal 0.8-3.9 [facility] ([place]) Comment on above: Performed By: #### C BC, GFR, ADIFF, MDW, ANEU, BMP #### [address] [address] Lymphocytes/100 WBC (Bld) 23.6 % Normal 10.0-50.0 [facility] ([place]) Comment on above: Performed By: #### C BC, GFR, ADIFF, MDW, ANEU, BMP #### [address] [address] Monocyte, Absolute 0.5 10 3/mcL Normal 0.2-1.0 [facility] [place] Comment on above: Performed By: #### C BC, GFR, ADTIMMY, SILVANA, ANEU, BMP #### [address] [address] Monocytes/100 WBC (Bld) 6.4 % Normal 1.7-13.0 [facility] ([place]) Comment on above: Performed By: #### C BC, GFR, ADTIMMY, W, ANEU, BMP #### [address] [address] Neutrophils/100 WBC (Bld) 66.4 % Normal 37.0-80.0 [facility] ([place]) Comment on above: Performed By: #### C BC, GFR, ADTIMMY, SILVANA, ANEU, BMP #### [address] [address] .GFRon 04-03-2023 GFR 133 ml/min/1.73sqm Normal [facility] ([place]) Comment on above: Result Comment: GFR Population mean for , Non- Americans Ages 20-29 = 116 mL/min/1.73 sq.m. Ages 30-39 = 107 mL/min/1.73 sq.m. Ages 40-49 = 99 mL/min/1.73 sq.m. Ages 50-59 = 93 mL/min/1.73 sq.m. Ages 60-69 = 85 mL/min/1.73 sq.m. Ages 70+ = 75 mL/min/1.73 sq.m. Chronic Kidney Disease: Less than 60 mL/min/1.73 square meters End Stage Renal Disease: Less than 15 mL/min/1.73 square meters Performed By: #### C BC, GFR, ADTIMMY, SILVANA, ANEU, BMP #### [address] [address] GFR Non- 110 ml/min/1.73sqm Normal [facility] ([place]) Comment on above: Result Comment: GFR Population mean for , Non- Americans Ages 20-29 = 116 mL/min/1.73 sq.m. Ages 30-39 = 107 mL/min/1.73 sq.m. Ages 40-49 = 99 mL/min/1.73 sq.m. Ages 50-59 = 93 mL/min/1.73 sq.m. Ages 60-69 = 85 mL/min/1.73 sq.m. Ages 70+ = 75 mL/min/1.73 sq.m. Chronic Kidney Disease: Less than 60 mL/min/1.73 square meters End Stage Renal Disease: Less than 15 mL/min/1.73 square meters Performed By: #### C BC, GFR, ADIFF, MDW, ANEU, BMP #### [place] [id number] .MDWon 04-03-2023 Monocyte Distribution Width 15.97 Normal 0.00-20.00 [facility] ([place]) Comment on above: Result Comment: For ED adult patients suspected of sepsis, MDW<=20.0 does not rule out sepsis or risk of sepsis Performed By: #### C BC, GFR, ADIFF, MDW, ANEU, BMP #### [place] [id number] .NEUABSon 04-03-2023 Neutrophil, Absolute 4.9 10 3/mcL Normal 2.9-6.2 [facility] ([place] Comment on above: Performed By: #### C BC, GFR, ADIFF, MDW, ANEU, BMP #### [place] [phone] .Urinalysis Microscopic (AO) on 04-03-2023 UA Bacteria 1+ /hpf Abnormal [facility] ([place]) Comment on above: Performed By: #### C BC, GFR, ADTIMMY, W, ANEU, BMP #### [place] [phone] UA RBC 0-5 Abnormal None Seen [facility] ([place]) Comment on above: Performed By: #### C BC, GFR, ADIFF, MDW, ANEU, BMP #### [place] [address] UA Squam Epithelial LOADED Abnormal None Seen [facility] ([place]) Comment on above: Performed By: #### C BC, GFR, RANDAL, W, ANEU, BMP #### [address] [address] UA WBC 5-10 Abnormal None Seen [facility] ([place]) Comment on above: Performed By: #### C BC, GFR, ADTIMMY, MDW, ANEU, BMP #### [address] [address] CBCon 04-03-2023 Erythrocyte distribution width (RBC) [Ratio] 15.3 % High 11.5-14.5 [facility] ([place]) Comment on above: Performed By: #### C BC, GFR, RANDAL, W, ANEU, BMP #### [address] [address] Hematocrit (Bld) [Volume fraction] 40.3 % Normal 37.0-47.0 [facility] ([place]) Comment on above: Performed By: #### C BC, GFR, ADTIMMY, MDW, ANEU, BMP #### [address] [address] Hgb 13.4 G/dL Normal 12.0-16.0 [facility] ([place] Comment on above: Performed By: #### C BC, GFR, ADIFF, MDW, ANEU, BMP #### [address] [address] MCH (RBC) [Entitic mass] 25.4 pg Low 27.0-31.2 [facility] ([place] Comment on above: Performed By: #### C BC, GFR, ADIFF, MDW, ANEU, BMP #### [address] [address] MCHC 33.3 G/dL Normal 33.0-37.0 [facility] ([place] Comment on above: Performed By: #### C BC, GFR, ADIFF, MDW, ANEU, BMP #### [address] [address] MCV (RBC) [Entitic vol] 76.1 fL Low 80.0-94.0 [facility] ([place] Comment on above: Performed By: #### C BC, GFR, SILVANA TEE, ANEU, BMP #### [address] [address] Platelet 238 10 3/mcL Normal 130-400 [facility] ([place]) Comment on above: Performed By: #### C BC, GFR, RANDAL, SILVANA, ANEU, BMP #### [address] [address] Platelet mean volume (Bld) [Entitic vol] 10.3 fL Normal 7.4-10.4 [facility] ([place] Comment on above: Performed By: #### C BC, GFR, RANDAL, SILVANA, ANEU, BMP #### [address] [address] RBC 5.29 10 6/mcL Normal 4.20-5.40 [facility] ([place] Comment on above: Performed By: #### C BC, GFR, RANDAL, SILVANA, ANEU, BMP #### [address] [address] WBC 7.4 10 3/mcL Normal 4.6-10.8 [facility] ([place] Comment on above: Performed By: #### C BC, GFR, RANDAL, SILVANA, ANEU, BMP #### [address] [address] CMPon 04-03-2023 Albumin Level 3.9 G/dL Normal 3.5-5.0 [facility] ([place]) Comment on above: Performed By: #### C BC, GFR, RANDAL, SILVANA, ANEU, BMP #### [address] [address] Albumin/Globulin [Mass ratio] 1.0 {ratio} Low 1.1-2.5 [facility] ([place]) Comment on above: Performed By: #### C BC, GFR, RANDAL, W, ANEU, BMP #### [address] [address] ALP [Catalytic activity/Vol] 109 U/L Normal 40-135 [facility] ([place]) Comment on above: Performed By: #### C BC, GFRRANDAL MDW, ANEU, BMP #### [address] [address] ALT [Catalytic activity/Vol] 63 U/L High 14-59 [facility] ([place]) Comment on above: Performed By: #### C BC, GFRRANDAL MDW, ANEU, BMP #### [address] [address] AST [Catalytic activity/Vol] 42 U/L High 10-40 [facility] ([place]) Comment on above: Performed By: #### C BC, GFRRANDAL MDW, ANEU, BMP #### [address] [address] Bili Total 0.7 mg/dL Normal 0.2-1.0 [facility] ([place]) Comment on above: Result Comment: Use of this assay is not recommended for patients undergoing treatment with eltrombopag due to the potential for falsely elevated results. Performed By: #### C MAGDALENE, GFRRANDAL MDW, ANEU, BMP #### [address] [address] BUN/Creatinine Ratio 20 ratio Normal 7-27 [facility] ([place] Comment on above: Performed By: #### C BC, GFRRANDAL MDW, ANEU, BMP #### [address] [address] Calcium [Mass/Vol] 9.0 mg/dL Normal 8.4-10.2 [facility] ([place]) Comment on above: Performed By: #### C BC, GFRRANDAL MDW, ANEU, BMP #### [address] [address] Chloride [Moles/Vol] 103 mmol/L Normal 98-107 [facility] [place] Comment on above: Performed By: #### C BC, GFRRANDAL MDW, ANEU, BMP #### [place] [id number] CO2 [Moles/Vol] 27 mmol/L Normal 22-29 [facility] ([place]) Comment on above: Performed By: #### C BC, GFR, ADTIMMY, MDW, ANEU, BMP #### [place] [address] Creatinine [Mass/Vol] 0.66 mg/dL Normal 0.55-1.02 [facility] ([place]) Comment on above: Performed By: #### C BC, GFR, ADIFF, MDW, ANEU, BMP #### [place] [address] Electrolyte Balance 8.0 mEq/L Normal 4.0-15.0 [facility] ([place]) Comment on above: Performed By: #### C BC, GFR, ADTIMMY, W, ANEU, BMP #### [place] [address] Globulin 4.0 G/dL Normal [facility] ([place]) Comment on above: Performed By: #### C BC, GFR, ADTIMMY, SILVANA, ANEU, BMP #### [place] [address] Glucose [Mass/Vol] 83 mg/dL Normal 70-105 [facility] ([place]) Comment on above: Performed By: #### C BC, GFR, ADTIMMY, W, ANEU, BMP #### [place] [address] Potassium [Moles/Vol] 4.2 mmol/L Normal 3.5-5.1 [facility] ([place]) Comment on above: Performed By: #### C BC, GFR, ADIFF, W, ANEU, BMP #### [place] [address] Sodium [Moles/Vol] 138 mmol/L Normal 136-145 [facility] ([place]) Comment on above: Performed By: #### C BC, GFR, ADIFF, MDW, ANEU, BMP #### [address] [place], [place] [address] Total Protein 7.9 G/dL Normal 6.4-8.2 [facility] ([place]) Comment on above: Performed By: #### C NGOZI DEL CASTILLO ADIFF, MDW, FABI, BMP #### [address] [place], [place] [address] Urea nitrogen [Mass/Vol] 13 mg/dL Normal 7-18 [facility] ([place]) Comment on above: Performed By: #### C MAGDALENE, RANDAL MELVIN MDW, FABI, BMP #### [place] [phone] [place], [place] [address] CT ABD/PELVIS W/ IV CONTRAST ONLYon 04-03-2023 CT ABD/PELVIS W/ IV CONTRAST ONLY ORIGINAL EXAMINATION: CT OF THE ABDOMEN AND PELVIS WITH CONTRAST 04/03/2023 4:50 pm TECHNIQUE: CT of the abdomen and pelvis was performed with the administration of intravenous contrast. Multiplanar reformatted images are provided for review. Automated exposure control, iterative reconstruction, and/or weight based adjustment of the mA/kV was utilized to reduce the radiation dose to as low as reasonably achievable. COMPARISON: Ultrasound abdomen 04/03/2022 HISTORY: ORDERING SYSTEM PROVIDED HISTORY: Reason for Exam: Generalized abdominal pain for 3 days, right lower quadrant pain FINDINGS: Mild bilateral lower lobe atelectasis. Hepatomegaly. Otherwise, the liver is normal by CT. The gallbladder, spleen, adrenal glands, pancreas are within normal limits. Bilateral symmetric renal enhancement without evidence of hydronephrosis. Grossly unremarkable bladder. The uterus and adnexa appears physiologic. Bilateral ovarian follicles. No free fluid in the pelvis. Nondistended small and large bowel loops. No free air. Normal appendix. Nonaneurysmal aorta. No lymphadenopathy. Mild degenerative changes of the lower lumbar spine with a central disc protrusion causing indentation of the central canal. Incidentally noted osteitis condensans ilii. IMPRESSION: No acute process in the abdomen or pelvis. Normal appendix. I have personally reviewed the images of this examination and agree with the resident's findings and interpretation. Interpreted by: Reagan Rowe MD Preliminary Report By: Odin Kerns Electronically signed By Reagan Rowe MD Dictated Date: 04/03/2023 4:54:04 PM Prelim Date: 04/03/2023 5:00:21 PM Sign Date: 04/03/2023 5:42:34 PM Ordering Provider: BLAYNE Renae [facility] ([place]) LABORATORYOrdered By: SYSTEM SYSTEM on 04-03-2023 Albumin BCP dye [Mass/Vol] 3.9 G/dL Normal 3.5 - 5.0 G/dL AO ADM SS Albumin/Globulin [Mass ratio] 1.0 {ratio} Low 1.1 - 2.5 ratio AO ADM SS ALP [Catalytic activity/Vol] 109 U/L Normal 40 - 135 U/L AO ADM SS ALT With P-5'-P [Catalytic activity/Vol] 63 U/L High 14 - 59 U/L AO ADM SS AST With P-5'-P [Catalytic activity/Vol] 42 U/L High 10 - 40 U/L AO ADM SS Basophil, Absolute 0.0 103/mcL Normal 0.0 - 0.2 10^3/mcL AO Workflow SS Basophils/100 WBC (Bld) 0.2 % Normal 0.0 - 2.5 % AO Workflow SS Bilirubin [Mass/Vol] 0.7 mg/dL Normal 0.2 - 1 .0 mg/dL AO ADM SS Comment on above: Interpretive Data: U se of this assay is not recommended for patients undergoing treatment with eltrombopag due to the potential for falsely elevated results. Calcium [Mass/Vol] 9.0 mg/dL Normal 8.4 - 10. 2 mg/dL AO ADM SS Chloride [Moles/Vol] 103 mmol/L Normal 98 - 10 7 mmol/L AO ADM SS CO2 [Moles/Vol] 27 mmol/L Normal 22 - 29 mmol/L AO ADM SS Creatinine [Mass/Vol] 0.66 mg/dL Normal 0.55 - 1.02 mg/dL AO ADM SS Electrolyte Balance 8.0 mEq/L Normal 4.0 - 15 .0 mEq/L AO ADM SS Eosinophil, Absolute 0.2 103/mcL Normal 0.0 - 0 .4 10^3/mcL AO Workflow SS Eosinophils/100 WBC (Bld) 3.4 % Normal 0.0 - 7.0 % AO Workflow SS Erythrocyte distribution width (RBC) [Ratio] 15.3 % High 11.5 - 14.5 % AO Workflow SS GFR/1.73 sq M.predicted among blacks MDRD (S/P/Bld) [Vol rate/Area] 133 ml/min/1.73sqm Invalid Interpretation Code AO Chemistry S Comment on above: Interpretive Data: GFR Population mean for , Non- Americans Ages 20-29 = 116 mL/min/1.73 sq.m. Ages 30-39 = 107 mL/min/1.73 sq.m. Ages 40-49 = 99 mL/min/1.73 sq.m. Ages 50-59 = 93 mL/min/1.73 sq.m. Ages 60-69 = 85 mL/min/1.73 sq.m. Ages 70+ = 75 mL/min/1.73 sq.m. Chronic Kidney Disease: Less than 60 mL/min/1.73 square meters End Stage Renal Disease: Less than 15 mL/min/1.73 square meters GFR/1.73 sq M.predicted among non-blacks MDRD (S/P/Bld) [Vol rate/Area] 110 ml/min/1.73sqm Invalid Interpretation Code AO Chemistry S Comment on above: Interpretive Data: GFR Population mean for , Non- Americans Ages 20-29 = 116 mL/min/1.73 sq.m. Ages 30-39 = 107 mL/min/1.73 sq.m. Ages 40-49 = 99 mL/min/1.73 sq.m. Ages 50-59 = 93 mL/min/1.73 sq.m. Ages 60-69 = 85 mL/min/1.73 sq.m. Ages 70+ = 75 mL/min/1.73 sq.m. Chronic Kidney Disease: Less than 60 mL/min/1.73 square meters End Stage Renal Disease: Less than 15 mL/min/1.73 square meters Globulin 4.0 G/dL Invalid Interpretation Code AO ADM SS Glucose [Mass/Vol] 83 mg/dL Normal 70 - 105 mg/dL AO ADM SS Hematocrit (Bld) [Volume fraction] 40.3 % Normal 37.0 - 47.0 % AO Workflow SS Hemoglobin (Bld) [Mass/Vol] 13.4 G/dL Normal 12.0 - 16.0 G/dL AO Workflow SS Lipase [Catalytic activity/Vol] 38 U/L Normal 16 - 77 U/L AO ADM SS Lymphocyte, Absolute 1.7 103/mcL Normal 0.8 - 3 .9 10^3/mcL AO Workflow SS Lymphocytes/100 WBC (Bld) 23.6 % Normal 10.0 - 50.0 % AO Workflow SS MCH (RBC) [Entitic mass] 25.4 pg Low 27.0 - 31.2 pg AO Workflow SS MCHC 33.3 G/dL Normal 33.0 - 37.0 G/dL AO Workflow SS MCV (RBC) [Entitic vol] 76.1 fL Low 80.0 - 94.0 fL AO Workflow SS Monocyte distribution width Auto (Bld) [Entitic vol] 15.97 1 Normal 0.00 - 20.00 AO Workflow SS Comment on above: Result Comment: For ED adult patients suspected of sepsis, MDW<=20.0 does not rule out sepsis or risk of sepsis Monocyte, Absolute 0.5 103/mcL Normal 0.2 - 1.0 10^3/mcL AO Workflow SS Monocytes/100 WBC (Bld) 6.4 % Normal 1.7 - 13.0 % AO Workflow SS Neutrophil, Absolute 4.9 103/mcL Normal 2.9 - 6 .2 10^3/mcL AO Workflow SS Neutrophils/100 WBC (Bld) 66.4 % Normal 37.0 - 80.0 % AO Workflow SS Platelet mean volume (Bld) [Entitic vol] 10.3 fL Normal 7.4 - 10.4 fL AO Workflow SS Platelets (Bld) [#/Vol] 238 103/mcL Normal 130 - 400 10^3/mcL AO Workflow SS Potassium [Moles/Vol] 4.2 mmol/L Normal 3.5 - 5.1 mmol/L AO ADM SS Protein [Mass/Vol] 7.9 G/dL Normal 6.4 - 8.2 G/dL AO ADM SS RBC (Bld) [#/Vol] 5.29 106/mcL Normal 4.20 - 5.4 0 10^6/mcL AO Workflow SS Sodium [Moles/Vol] 138 mmol/L Normal 136 - 145 mmol/L AO ADM SS Urea nitrogen [Mass/Vol] 13 mg/dL Normal 7 - 18 mg/dL AO ADM SS Urea nitrogen/Creatinine [Mass ratio] 20 ratio Normal 7 - 27 ratio AO ADM SS WBC (Bld) [#/Vol] 7.4 103/mcL Normal 4.6 - 10.8 10^3/mcL AO Workflow SS LABORATORYOrdered By: Yi Land on 04-03-2023 Appearance (U) Cloudy *ABN* (04/03/23 3:30 PM) Invalid Interpretation Code Clear AO Auto Urine SS Bacteria LM.HPF (Urine sed) [#/Area] 1 /[HPF] Invalid Interpretation Code AO Auto Urine SS Bilirubin Ql (U) Negative (04/03/23 3:30 PM) Normal Negative AO Auto Urine SS Color (U) Yellow (04/03/23 3:30 PM) Normal AO Auto Urine SS Glucose Test strip (U) [Mass/Vol] Negative Normal Negative AO Auto Urine SS Hemoglobin Auto test strip (U) [Mass/Vol] Negative (04/03/23 3:30 PM) Normal Negative AO Auto Urine SS Ketones Ql (U) Negative Normal Negative AO Auto Urine SS UA Leuk Est Small *ABN* (04/03/23 3:30 PM) Invalid Interpretation Code Negative AO Auto Urine SS UA Nitrite Negative (04/03/23 3:30 PM) Normal Negative AO Auto Urine SS UA pH 6.0 (04/03/23 3:30 PM) Normal 5.0 - 8.0 AO Auto Urine SS UA Protein Negative Normal Negative AO Auto Urine SS UA RBC 0-5 /HPF Invalid Interpretation Code None Seen AO Auto Urine SS UA Spec Grav >=1.030 *ABN* (04/03/23 3:30 PM) Invalid Interpretation Code 1.015-1.025 AO Auto Urine SS UA Specimen Type Clean Catch (04/03/23 3:30 PM) Normal AO Auto Urine SS UA Squam Epithelial LOADED /HPF Invalid Interpretation Code None Seen AO Auto Urine SS UA Urobilinogen 0.2 E.U./dL Normal 0.2-1.0 AO Auto Urine SS WBC LM.HPF (Urine sed) [#/Area] 5-10 /HPF Invalid Interpretation Code None Seen AO Auto Urine SS LABORATORYOrdered By: Luis silva on 04-03-2023 HCG ( test) Ql Negative (04/03/23 3:30 PM) Normal AO Manual Urine SS test (u) int Not detected Invalid Interpretation Code AO Manual Urine SS LIPon 04-03-2023 Lipase Level 38 U/L Normal 16-77 [facility] ([place]) Comment on above: Performed By: #### C BC, GFR, RANDAL, W, ANEU, BMP #### [address] [id number] PREGUon 04-03-2023 HCG ( test) Ql (U) Negative Normal [facility] ([place]) Comment on above: Performed By: #### C BC, GFR, ADTIMMY, MDW, ANEU, BMP #### [address] [id number] test (u) int Not detected Invalid Interpretation Code [facility] ([place]) Comment on above: Performed By: #### C BC, GFR, ADTIMMY, MDW, ANEU, BMP #### [address] [address] UAon 04-03-2023 Color (U) Yellow Normal [facility] ([place] Comment on above: Performed By: #### C BC, GFR, ARNDAL, W, ANEU, BMP #### [place] [address] Glucose (U) [Mass/Vol] Negative Normal Negative [facility] ([place] Comment on above: Performed By: #### C BC, GFR, RANDAL, W, ANEU, BMP #### [address] [address] Ketones Ql (U) Negative Normal Negative [facility] ([place] Comment on above: Performed By: #### C BC, GFR, ADTIMMY, W, ANEU, BMP #### [address] [address] UA Appear Cloudy Abnormal Clear [facility] ([place] Comment on above: Performed By: #### C BC, GFR, ADTIMMY, MDW, ANEU, BMP #### [address] [address] UA Blood Negative Normal Negative [facility] ([place] Comment on above: Performed By: #### C BC, GFR, ADTIMMY, MDW, ANEU, BMP #### [address] [address] UA Leuk Est Small Abnormal Negative [facility] ([place] Comment on above: Performed By: #### C BC, GFR, ADIFF, MDW, ANEU, BMP #### [address] [address] UA Nitrite Negative Normal Negative [facility] ([place] Comment on above: Performed By: #### C BC, GFR, ADIFF, MDW, ANEU, BMP #### [place] [address] UA pH 6.0 Normal 5.0 - 8.0 [facility] ([place]) Comment on above: Performed By: #### C BC, GFR, ADIFF, MDW, ANEU, BMP #### [place] [address] UA Protein Negative Normal Negative [facility] ([place]) Comment on above: Performed By: #### C BC, GFR, ADIFF, MDW, ANEU, BMP #### [place] [address] UA Spec Grav >=1.030 Abnormal 1.015-1.025 [facility] ([place]) Comment on above: Performed By: #### C BC, GFR, ADIFF, MDW, ANEU, BMP #### [place] [address] UA Specimen Type Clean Catch Normal [facility] ([place] Comment on above: Performed By: #### C BC, GFR, ADIFF, MDW, ANEU, BMP #### [place] [id number] UA Urobilinogen 0.2 E.U./dL Normal 0.2-1.0 [facility] ([place] Comment on above: Performed By: #### C BC, GFR, ADIFF, MDW, ANEU, BMP #### [place] [address] Urobilinogen (U) [Mass/Vol] Negative Normal Negative [facility] ([place] Comment on above: Performed By: #### C BC, GFR, ADIFF, MDW, ANEU, BMP #### [place] [address] US ABDOMEN LIMITEDon 024 US ABDOMEN LIMITED ORIGINAL EXAMINATION: LIMITED ABDOMINAL ULTRASOUND04/03/2023 4:24 pm ABDOMEN LIMITED ULTRASOUND ABDOMEN LIMITED COMPARISON: None HISTORY: ORDERING SYSTEM PROVIDED HISTORY: Reason for Exam: abdominal pain; suspect gallstones, gallbladder, or cholecystitis FINDINGS: The liver is diffusely increased in echogenicity with normal contours which is compatible with fatty change. The liver is enlarged measuring 23.1 cm no hepatic mass or biliary ductal dilatation is identified. The gallbladder is adequately distended and demonstrates no wall thickening or shadowing stones. The sonographic Taylor's sign was negative. The common duct measures 5.2 mm, which is normal. The visualized portions of the pancreas are normal. No abdominal ascites. Survey image of the right kidney is normal without pelvocaliectasis. IMPRESSION: Fatty enlarged liver. Interpreted by: Reagan Rowe MD Preliminary Report By: Reagan Rowe MD Electronically signed By Reagan Rowe MD Dictated Date: 04/03/2023 4:29:43 PM Prelim Date: 04/03/2023 4:32:24 PM Sign Date: 04/03/2023 4:32:24 PM Ordering Provider: BLAYNE DORAN [facility] ([place]) .GFRon 02-24-2023 GFR 127 ml/min/1.73sqm [facility] ([place] Comment on above: Result Comment: GFR Population mean for , Non- Americans Ages 20-29 = 116 mL/min/1.73 sq.m. Ages 30-39 = 107 mL/min/1.73 sq.m. Ages 40-49 = 99 mL/min/1.73 sq.m. Ages 50-59 = 93 mL/min/1.73 sq.m. Ages 60-69 = 85 mL/min/1.73 sq.m. Ages 70+ = 75 mL/min/1.73 sq.m. Chronic Kidney Disease: Less than 60 mL/min/1.73 square meters End Stage Renal Disease: Less than 15 mL/min/1.73 square meters Performed By: #### B MP, A1C, TSH, GFR, LIPID #### [facility] [address] [place], [place] [address] #### INSLN #### [address] [address] GFR Non- 105 ml/min/1.73sqm Normal [facility] ([place]) Comment on above: Result Comment: GFR Population mean for , Non- Americans Ages 20-29 = 116 mL/min/1.73 sq.m. Ages 30-39 = 107 mL/min/1.73 sq.m. Ages 40-49 = 99 mL/min/1.73 sq.m. Ages 50-59 = 93 mL/min/1.73 sq.m. Ages 60-69 = 85 mL/min/1.73 sq.m. Ages 70+ = 75 mL/min/1.73 sq.m. Chronic Kidney Disease: Less than 60 mL/min/1.73 square meters End Stage Renal Disease: Less than 15 mL/min/1.73 square meters Performed By: #### B MP, A1C, TSH, GFR, LIPID #### [address] [address] #### INSLN #### [address] [address] A1Con 02-24-2023 HbA1c (Bld) [Mass fraction] 5.3 % Normal 4.3-6.4 [facility] ([place] Comment on above: Performed By: #### C BC, GFR, SILVANA TEE, ANEU, BMP #### [address] [address] BMPon 02-24-2023 BUN/Creatinine Ratio 14 ratio Normal 7-27 [facility] [place] Comment on above: Performed By: #### B MP, A1C, TSH, GFR, LIPID #### [address] [id number] #### INSLN #### [address] [address] Calcium [Mass/Vol] 9.5 mg/dL Normal 8.4-10.2 [facility] ([place] Comment on above: Performed By: #### B MP, A1C, TSH, GFR, LIPID #### [address] [address] #### INSLN #### [address] [address] Chloride [Moles/Vol] 105 mmol/L Normal 98-107 [facility] [place] Comment on above: Performed By: #### B MP, A1C, TSH, GFR, LIPID #### [address] [address] #### INSLN #### [address] [address] CO2 [Moles/Vol] 28 mmol/L Normal 22-29 [facility] ([place] Comment on above: Performed By: #### B MP, A1C, TSH, GFR, LIPID #### [address] [address] #### INSLN #### [address] [address] Creatinine [Mass/Vol] 0.69 mg/dL Normal 0.55-1.02 [facility] ([place]) Comment on above: Performed By: #### B MP, A1C, TSH, GFR, LIPID #### [place] [address] #### INSLN #### [address] [address] Electrolyte Balance 11.0 mEq/L Normal 4.0-15.0 [facility] ([place]) Comment on above: Performed By: #### B MP, A1C, TSH, GFR, LIPID #### [address] [address] #### INSLN #### [address] [address] Glucose [Mass/Vol] 102 mg/dL Normal 70-105 [facility] ([place] Comment on above: Performed By: #### B MP, A1C, TSH, GFR, LIPID #### [address] [address] #### INSLN #### [address] [address] Potassium [Moles/Vol] 4.4 mmol/L Normal 3.5-5.1 [facility] ([place] Comment on above: Performed By: #### B MP, A1C, TSH, GFR, LIPID #### [place] [address] #### INSLN #### [address] [address] Sodium [Moles/Vol] 144 mmol/L Normal 136-145 [facility] ([place] Comment on above: Performed By: #### B MP, A1C, TSH, GFR, LIPID #### [place] [address] #### INSLN #### [address] [address] Urea nitrogen [Mass/Vol] 10 mg/dL Normal 7-18 [facility] ([place] Comment on above: Performed By: #### B MP, A1C, TSH, GFR, LIPID #### [place] [address] #### INSLN #### [address] [address] INSLNon 02-24-2023 Insulin 23.77 munit/L Normal 2.60-37.60 [facility] ([place] Comment on above: Performed By: #### C BC, GFR, SILVANA TEE, ANEU, BMP #### [place] [id number] LABORATORYOrdered By: SYSTEM SYSTEM on 02-24-2023 Calcium [Mass/Vol] 9.5 mg/dL Normal 8.4 - 10. 2 mg/dL AO ADM SS Chloride [Moles/Vol] 105 mmol/L Normal 98 - 10 7 mmol/L AO ADM SS CO2 [Moles/Vol] 28 mmol/L Normal 22 - 29 mmol/L AO ADM SS Creatinine [Mass/Vol] 0.69 mg/dL Normal 0.55 - 1.02 mg/dL AO ADM SS Electrolyte Balance 11.0 mEq/L Normal 4.0 - 15 .0 mEq/L AO ADM SS GFR/1.73 sq M.predicted among blacks MDRD (S/P/Bld) [Vol rate/Area] 127 ml/min/1.73sqm Invalid Interpretation Code AO Chemistry S Comment on above: Interpretive Data: GFR Population mean for , Non- Americans Ages 20-29 = 116 mL/min/1.73 sq.m. Ages 30-39 = 107 mL/min/1.73 sq.m. Ages 40-49 = 99 mL/min/1.73 sq.m. Ages 50-59 = 93 mL/min/1.73 sq.m. Ages 60-69 = 85 mL/min/1.73 sq.m. Ages 70+ = 75 mL/min/1.73 sq.m. Chronic Kidney Disease: Less than 60 mL/min/1.73 square meters End Stage Renal Disease: Less than 15 mL/min/1.73 square meters GFR/1.73 sq M.predicted among non-blacks MDRD (S/P/Bld) [Vol rate/Area] 105 ml/min/1.73sqm Invalid Interpretation Code AO Chemistry S Comment on above: Interpretive Data: GFR Population mean for , Non- Americans Ages 20-29 = 116 mL/min/1.73 sq.m. Ages 30-39 = 107 mL/min/1.73 sq.m. Ages 40-49 = 99 mL/min/1.73 sq.m. Ages 50-59 = 93 mL/min/1.73 sq.m. Ages 60-69 = 85 mL/min/1.73 sq.m. Ages 70+ = 75 mL/min/1.73 sq.m. Chronic Kidney Disease: Less than 60 mL/min/1.73 square meters End Stage Renal Disease: Less than 15 mL/min/1.73 square meters Glucose [Mass/Vol] 102 mg/dL Normal 70 - 105 mg/dL AO ADM SS HbA1c (Bld) [Mass fraction] 5.3 % Normal 4.3 - 6.4 % AO ADM SS Insulin Qn 23.77 munit/L Normal 2.60 - 37.60 mU/L AH ADM SS Potassium [Moles/Vol] 4.4 mmol/L Normal 3.5 - 5.1 mmol/L AO ADM SS Sodium [Moles/Vol] 144 mmol/L Normal 136 - 145 mmol/L AO ADM SS TSH Qn 1.05 m[IU]/L Normal 0.36 - 3.74 mcIU/mL AO ADM SS Urea nitrogen [Mass/Vol] 10 mg/dL Normal 7 - 18 mg/dL AO ADM SS Urea nitrogen/Creatinine [Mass ratio] 14 ratio Normal 7 - 27 ratio AO ADM SS LABORATORYOrdered By: Yi Land on 02-24-2023 Cholesterol [Mass/Vol] 249 mg/dL High 0 - 200 mg/dL AO ADM SS Comment on above: Interpretive Data: C holesterol Reference Interval: Less than 200 Desirable 200-239 Borderline high risk 240 and above High risk Cholesterol in HDL [Mass/Vol] 47 mg/dL Normal 40 - 60 mg/dL AO ADM SS Cholesterol in LDL [Mass/Vol] 159 mg/dL High 0 - 130 mg/dL AO ADM SS Triglyceride [Mass/Vol] 217 mg/dL High 0 - 150 mg/dL AO ADM SS Comment on above: Interpretive Data: T riglyceride Reference Interval: Less than 150 Normal 150-199 Borderline high risk 200-499 High risk 500 or higher Very high risk LIPIDon 02-24-2023 Cholesterol [Mass/Vol] 249 mg/dL High 0-200 [facility] ([place] Comment on above: Result Comment: Chol esterol Reference Interval: Less than 200 Desirable 200-239 Borderline high risk 240 and above High risk Performed By: #### B MP, A1C, TSH, GFR, LIPID #### [address] [address] #### INSLN #### [address] [address] Cholesterol in HDL [Mass/Vol] 47 mg/dL Normal 40-60 [facility] ([place] Comment on above: Performed By: #### B MP, A1C, TSH, GFR, LIPID #### [address] [address] #### INSLN #### [address] [address] Cholesterol in LDL [Mass/Vol] 159 mg/dL High 0-130 [facility] ([place] Comment on above: Performed By: #### B MP, A1C, TSH, GFR, LIPID #### [address] [address] #### INSLN #### [place] [address] Triglyceride [Mass/Vol] 217 mg/dL High 0-150 [facility] ([place] Comment on above: Result Comment: Trig lyceride Reference Interval: Less than 150 Normal 150-199 Borderline high risk 200-499 High risk 500 or higher Very high risk Performed By: #### B MP, A1C, TSH, GFR, LIPID #### [address] [address] #### INSLN #### [place] [address] TSHon 02-24-2023 TSH Qn 1.05 m[IU]/L Normal 0.36-3.74 [facility] ([place] Comment on above: Performed By: #### B MP, A1C, TSH, GFR, LIPID #### [address] [address] #### INSLN #### [place] [address] .Auto Diffon 02-22-2023 Basophil, Absolute 0.1 10 3/mcL Normal 0.0-0.2 [facility] [place] Comment on above: Performed By: #### C MAGDALENE GFRRANDAL MDW, ANEU, BMP #### [address] [address] Basophils/100 WBC (Bld) 0.7 % Normal 0.0-2.5 [facility] ([place] Comment on above: Performed By: #### C BC GFRRANDAL MDW, ANEU, BMP #### [address] [address] Eosinophil, Absolute 0.1 10 3/mcL Normal 0.0-0.4 [facility] ([place] Comment on above: Performed By: #### C BC GFRRANDAL MDW, ANEU, BMP #### [address] [address] Eosinophils/100 WBC (Bld) 1.6 % Normal 0.0-7.0 [facility] ([place] Comment on above: Performed By: #### C BC, GFR, ADIFF, MDW, ANEU, BMP #### [address] [address] Lymphocyte, Absolute 2.1 10 3/mcL Normal 0.8-3.9 [facility] ([place] Comment on above: Performed By: #### C BC, GFR, ADIFF, MDW, ANEU, BMP #### [address] [address] Lymphocytes/100 WBC (Bld) 27.1 % Normal 10.0-50.0 [facility] ([place] Comment on above: Performed By: #### C BC, GFR, ADIFF, MDW, ANEU, BMP #### [address] [address] Monocyte, Absolute 0.4 10 3/mcL Normal 0.2-1.0 [facility] [place] Comment on above: Performed By: #### C BC, GFR, ADIFF, MDW, ANEU, BMP #### [address] [address] Monocytes/100 WBC (Bld) 4.9 % Normal 1.7-13.0 [facility] ([place] Comment on above: Performed By: #### C BC, GFR, ADIFF, MDW, ANEU, BMP #### [address] [address] Neutrophils/100 WBC (Bld) 65.7 % Normal 37.0-80.0 [facility] ([place] Comment on above: Performed By: #### C BC, GFR, ADIFF, MDW, ANEU, BMP #### [address] [address] .GFRon 02-22-2023 GFR 117 ml/min/1.73sqm Normal [facility] ([place] Comment on above: Result Comment: GFR Population mean for , Non- Americans Ages 20-29 = 116 mL/min/1.73 sq.m. Ages 30-39 = 107 mL/min/1.73 sq.m. Ages 40-49 = 99 mL/min/1.73 sq.m. Ages 50-59 = 93 mL/min/1.73 sq.m. Ages 60-69 = 85 mL/min/1.73 sq.m. Ages 70+ = 75 mL/min/1.73 sq.m. Chronic Kidney Disease: Less than 60 mL/min/1.73 square meters End Stage Renal Disease: Less than 15 mL/min/1.73 square meters Performed By: #### C BC, GFR, ADIFF, W, ANEU, BMP #### [address] [address] GFR Non- 96 ml/min/1.73sqm Normal [facility] ([place] Comment on above: Result Comment: GFR Population mean for , Non- Americans Ages 20-29 = 116 mL/min/1.73 sq.m. Ages 30-39 = 107 mL/min/1.73 sq.m. Ages 40-49 = 99 mL/min/1.73 sq.m. Ages 50-59 = 93 mL/min/1.73 sq.m. Ages 60-69 = 85 mL/min/1.73 sq.m. Ages 70+ = 75 mL/min/1.73 sq.m. Chronic Kidney Disease: Less than 60 mL/min/1.73 square meters End Stage Renal Disease: Less than 15 mL/min/1.73 square meters Performed By: #### C BC, GFR, ADIFF, MDW, ANEU, BMP #### [address] [address] .MDWon 02-22-2023 Monocyte Distribution Width 15.51 Normal 0.00-20.00 [facility] ([place] Comment on above: Result Comment: For ED adult patients suspected of sepsis, MDW<=20.0 does not rule out sepsis or risk of sepsis Performed By: #### C BC, GFR, ADIFF, MDW, ANEU, BMP #### [address] [address] .NEUABSon 02-22-2023 Neutrophil, Absolute 5.1 10 3/mcL Normal 2.9-6.2 [facility] ([place] Comment on above: Performed By: #### C BC, GFR, SILVANA TEE, ANEU, BMP #### [address] [address] .Urinalysis Microscopic (AO) on 02-22-2023 UA Bacteria 2+ /hpf Abnormal [facility] ([place] Comment on above: Performed By: #### C BC, GFR, SILVANA TEE, ANEU, BMP #### [address] [address] UA RBC None Seen Normal None Seen [facility] ([place] Comment on above: Performed By: #### C BC, GFR, SILVANA TEE, ANEU, BMP #### [place] [address] UA Squam Epithelial 0-5 Abnormal None Seen [facility] ([place] Comment on above: Performed By: #### C BC, GFR, SILVANA TEE, ANEU, BMP #### [address] [address] UA WBC 5-10 Abnormal None Seen [facility] ([place] Comment on above: Performed By: #### C BC, GFR, SILVANA TEE, ANEU, BMP #### [place] [address] BMPon 02-22-2023 BUN/Creatinine Ratio 12 ratio Normal 7-27 [facility] [place] Comment on above: Performed By: #### C BC, GFR, SILVANA TEE, ANEU, BMP #### [address] [address] Calcium [Mass/Vol] 9.6 mg/dL Normal 8.4-10.2 [facility] ([place] Comment on above: Performed By: #### C BC, GFR, SILVANA TEE, ANEU, BMP #### [address] [address] Chloride [Moles/Vol] 102 mmol/L Normal 98-107 [facility] [place] Comment on above: Performed By: #### C BC, GFR, SILVANA TEE, ANEU, BMP #### [address] [address] CO2 [Moles/Vol] 28 mmol/L Normal 22-29 [facility] ([place] Comment on above: Performed By: #### C BC, GFR, SILVANA TEE, ANEU, BMP #### [address] [address] Creatinine [Mass/Vol] 0.74 mg/dL Normal 0.55-1.02 [facility] ([place] Comment on above: Performed By: #### C BC, GFR, SILVANA TEE, ANEU, BMP #### [address] [address] Electrolyte Balance 9.0 mEq/L Normal 4.0-15.0 [facility] ([place] Comment on above: Performed By: #### C BC, GFR, SILVANA TEE, ANEU, BMP #### [address] [address] Glucose [Mass/Vol] 85 mg/dL Normal 70-105 [facility] ([place] Comment on above: Performed By: #### C BC, GFR, SILVANA TEE, ANEU, BMP #### [address] [address] Potassium [Moles/Vol] 3.7 mmol/L Normal 3.5-5.1 [facility] ([place] Comment on above: Performed By: #### C BC, GFR, SILVANA TEE, ANEU, BMP #### [address] [address] Sodium [Moles/Vol] 139 mmol/L Normal 136-145 [facility] ([place] Comment on above: Performed By: #### C BC, GFR, SILVANA TEE, ANEU, BMP #### [address] [address] Urea nitrogen [Mass/Vol] 9 mg/dL Normal 7-18 [facility] ([place] Comment on above: Performed By: #### C BC, GFR, SILVANA TEE, ANEU, BMP #### [address] [address] CBCon 02-22-2023 Erythrocyte distribution width (RBC) [Ratio] 15.1 % High 11.5-14.5 [facility] ([place] Comment on above: Performed By: #### C NGOZI DEL CASTILLO ADIFF, MDW, ANEU, BMP #### [address] [address] Hematocrit (Bld) [Volume fraction] 41.8 % Normal 37.0-47.0 [facility] ([place] Comment on above: Performed By: #### C NGOZI DEL CASTILLO ADIFF, MDW, ANEU, BMP #### [address] [address] Hgb 13.9 G/dL Normal 12.0-16.0 [facility] ([place] Comment on above: Performed By: #### C MAGDALENE GFRRANDAL MDW, ANEU, BMP #### [address] [address] MCH (RBC) [Entitic mass] 24.9 pg Low 27.0-31.2 [facility] ([place] Comment on above: Performed By: #### C MAGDALENE GFRRANDAL MDW, ANEU, BMP #### [address] [address] MCHC 33.3 G/dL Normal 33.0-37.0 [facility] ([place] Comment on above: Performed By: #### C BC, GFRRANDAL MDW, ANEU, BMP #### [address] [address] MCV (RBC) [Entitic vol] 74.8 fL Low 80.0-94.0 [facility] ([place] Comment on above: Performed By: #### C BC GFRRANDAL MDW, ANEU, BMP #### [address] [address] Platelet 244 10 3/mcL Normal 130-400 [facility] ([place] Comment on above: Performed By: #### C BC GFRRANDAL MDW, ANEU, BMP #### [address] [address] Platelet mean volume (Bld) [Entitic vol] 9.5 fL Normal 7.4-10.4 [facility] ([place] Comment on above: Performed By: #### C BC, GFRRANDAL MDW, ANEU, BMP #### [address] [address] RBC 5.59 10 6/mcL High 4.20-5.40 [facility] ([place] Comment on above: Performed By: #### C MAGDALENE, GFRRANDAL MDW, ANEU, BMP #### [address] [address] WBC 7.7 10 3/mcL Normal 4.6-10.8 [facility] ([place] Comment on above: Performed By: #### C MAGDALENE, RANDAL MELVIN MDW, ANEU, BMP #### [address] [address] Gel ABOon 02-22-2023 ABO/Rh Interp Positive Invalid Interpretation Code [facility] ([place]) Comment on above: Performed By: #### C NGOZI DEL CASTILLO ADIFF, MDW, ANEU, BMP #### [address] [address] HCGQon 02-22-2023 hCG, quantitative <1.0 Normal [facility] ([place]) Comment on above: Result Comment: HCG Levels with Gestation age: 0.2- 1 week. . . . . . . . . . . . . . . 5 - 50 mIU/mL 1-2 weeks . . . . . . . . . . . . . . . 50 - 500 mIU/mL 2-3 weeks . . . . . . . . . . . . . . . 100 - 5,000 mIU/ml 3-4 weeks . . . . . . . . . . . . . . . 500 - 10,000 mIU/mL 4-5 weeks . . . . . . . . . . . . . . . 1,000 - 5,000 mIU/mL 5-6 weeks . . . . . . . . . . . . . . . 10,000 - 100,000 mIU/mL 6-8 weeks . . . . . . . . . . . . . . . 15,000 - 200,000 mIU/mL 2-3 months . . . . . . . . . . . . . . . 10,000 - 100,000 mIU/mL Performed By: #### C BC, GFR, ADTIMMY, W, ANEU, BMP #### [place] [id number] [place], [place] [address] LABORATORYOrdered By: Suri Alexander on 02-22-2023 ABO/Rh Interp Positive Invalid Interpretation Code AO BB SS Appearance (U) Slightly Cloudy *ABN* (02/22/23 6:16 PM) Invalid Interpretation Code Clear AO Auto Urine SS Bacteria LM.HPF (Urine sed) [#/Area] 2 /[HPF] Invalid Interpretation Code AO Auto Urine SS Bilirubin Ql (U) Negative (02/22/23 6:16 PM) Normal Negative AO Auto Urine SS Color (U) Yellow (02/22/23 6:16 PM) Normal AO Auto Urine SS Glucose Test strip (U) [Mass/Vol] Negative Normal Negative AO Auto Urine SS Hemoglobin Auto test strip (U) [Mass/Vol] Negative (02/22/23 6:16 PM) Normal Negative AO Auto Urine SS Ketones Ql (U) Negative Normal Negative AO Auto Urine SS UA Leuk Est Trace *ABN* (02/22/23 6:16 PM) Invalid Interpretation Code Negative AO Auto Urine SS UA Nitrite Negative (02/22/23 6:16 PM) Normal Negative AO Auto Urine SS UA pH 5.5 (02/22/23 6:16 PM) Normal 5.0 - 8.0 AO Auto Urine SS UA Protein Negative Normal Negative AO Auto Urine SS UA RBC None Seen /HPF Normal None Seen AO Auto Urine SS UA Spec Grav >=1.030 *ABN* (02/22/23 6:16 PM) Invalid Interpretation Code 1.015-1.025 AO Auto Urine SS UA Specimen Type Clean Catch (02/22/23 6:16 PM) Normal AO Auto Urine SS UA Squam Epithelial 0-5 /HPF Invalid Interpretation Code None Seen AO Auto Urine SS UA Urobilinogen 0.2 E.U./dL Normal 0.2-1.0 AO Auto Urine SS WBC LM.HPF (Urine sed) [#/Area] 5-10 /HPF Invalid Interpretation Code None Seen AO Auto Urine SS LABORATORYOrdered By: SYSTEM SYSTEM on 02-22-2023 Basophil, Absolute 0.1 103/mcL Normal 0.0 - 0.2 10^3/mcL AO Workflow SS Basophils/100 WBC (Bld) 0.7 % Normal 0.0 - 2.5 % AO Workflow SS Calcium [Mass/Vol] 9.6 mg/dL Normal 8.4 - 10. 2 mg/dL AO ADM SS Chloride [Moles/Vol] 102 mmol/L Normal 98 - 10 7 mmol/L AO ADM SS CO2 [Moles/Vol] 28 mmol/L Normal 22 - 29 mmol/L AO ADM SS Creatinine [Mass/Vol] 0.74 mg/dL Normal 0.55 - 1.02 mg/dL AO ADM SS Electrolyte Balance 9.0 mEq/L Normal 4.0 - 15 .0 mEq/L AO ADM SS Eosinophil, Absolute 0.1 103/mcL Normal 0.0 - 0 .4 10^3/mcL AO Workflow SS Eosinophils/100 WBC (Bld) 1.6 % Normal 0.0 - 7.0 % AO Workflow SS Erythrocyte distribution width (RBC) [Ratio] 15.1 % High 11.5 - 14.5 % AO Workflow SS GFR/1.73 sq M.predicted among blacks MDRD (S/P/Bld) [Vol rate/Area] 117 ml/min/1.73sqm Invalid Interpretation Code AO Chemistry S Comment on above: Interpretive Data: GFR Population mean for , Non- Americans Ages 20-29 = 116 mL/min/1.73 sq.m. Ages 30-39 = 107 mL/min/1.73 sq.m. Ages 40-49 = 99 mL/min/1.73 sq.m. Ages 50-59 = 93 mL/min/1.73 sq.m. Ages 60-69 = 85 mL/min/1.73 sq.m. Ages 70+ = 75 mL/min/1.73 sq.m. Chronic Kidney Disease: Less than 60 mL/min/1.73 square meters End Stage Renal Disease: Less than 15 mL/min/1.73 square meters GFR/1.73 sq M.predicted among non-blacks MDRD (S/P/Bld) [Vol rate/Area] 96 ml/min/1.73sqm Invalid Interpretation Code AO Chemistry S Comment on above: Interpretive Data: GFR Population mean for , Non- Americans Ages 20-29 = 116 mL/min/1.73 sq.m. Ages 30-39 = 107 mL/min/1.73 sq.m. Ages 40-49 = 99 mL/min/1.73 sq.m. Ages 50-59 = 93 mL/min/1.73 sq.m. Ages 60-69 = 85 mL/min/1.73 sq.m. Ages 70+ = 75 mL/min/1.73 sq.m. Chronic Kidney Disease: Less than 60 mL/min/1.73 square meters End Stage Renal Disease: Less than 15 mL/min/1.73 square meters Glucose [Mass/Vol] 85 mg/dL Normal 70 - 105 mg/dL AO ADM SS HCG Qn mIU/mL Invalid Interpretation Code AO ADM SS Comment on above: Interpretive Data: H CG Levels with Gestation age: 0.2- 1 week. . . . . . . . . . . . . . . 5 - 50 mIU/mL 1-2 weeks . . . . . . . . . . . . . . . 50 - 500 mIU/mL 2-3 weeks . . . . . . . . . . . . . . . 100 - 5,000 mIU/ml 3-4 weeks . . . . . . . . . . . . . . . 500 - 10,000 mIU/mL 4-5 weeks . . . . . . . . . . . . . . . 1,000 - 5,000 mIU/mL 5-6 weeks . . . . . . . . . . . . . . . 10,000 - 100,000 mIU/mL 6-8 weeks . . . . . . . . . . . . . . . 15,000 - 200,000 mIU/mL 2-3 months . . . . . . . . . . . . . . . 10,000 - 100,000 mIU/mL Hematocrit (Bld) [Volume fraction] 41.8 % Normal 37.0 - 47.0 % AO Workflow SS Hemoglobin (Bld) [Mass/Vol] 13.9 G/dL Normal 12.0 - 16.0 G/dL AO Workflow SS Lymphocyte, Absolute 2.1 103/mcL Normal 0.8 - 3 .9 10^3/mcL AO Workflow SS Lymphocytes/100 WBC (Bld) 27.1 % Normal 10.0 - 50.0 % AO Workflow SS MCH (RBC) [Entitic mass] 24.9 pg Low 27.0 - 31.2 pg AO Workflow SS MCHC 33.3 G/dL Normal 33.0 - 37.0 G/dL AO Workflow SS MCV (RBC) [Entitic vol] 74.8 fL Low 80.0 - 94.0 fL AO Workflow SS Monocyte distribution width Auto (Bld) [Entitic vol] 15.51 1 Normal 0.00 - 20.00 AO Workflow SS Comment on above: Result Comment: For ED adult patients suspected of sepsis, MDW<=20.0 does not rule out sepsis or risk of sepsis Monocyte, Absolute 0.4 103/mcL Normal 0.2 - 1.0 10^3/mcL AO Workflow SS Monocytes/100 WBC (Bld) 4.9 % Normal 1.7 - 13.0 % AO Workflow SS Neutrophil, Absolute 5.1 103/mcL Normal 2.9 - 6 .2 10^3/mcL AO Workflow SS Neutrophils/100 WBC (Bld) 65.7 % Normal 37.0 - 80.0 % AO Workflow SS Platelet mean volume (Bld) [Entitic vol] 9.5 fL Normal 7.4 - 10.4 fL AO Workflow SS Platelets (Bld) [#/Vol] 244 103/mcL Normal 130 - 400 10^3/mcL AO Workflow SS Potassium [Moles/Vol] 3.7 mmol/L Normal 3.5 - 5.1 mmol/L AO ADM SS RBC (Bld) [#/Vol] 5.59 106/mcL High 4.20 - 5.4 0 10^6/mcL AO Workflow SS Sodium [Moles/Vol] 139 mmol/L Normal 136 - 145 mmol/L AO ADM SS Urea nitrogen [Mass/Vol] 9 mg/dL Normal 7 - 18 mg/dL AO ADM SS Urea nitrogen/Creatinine [Mass ratio] 12 ratio Normal 7 - 27 ratio AO ADM SS WBC (Bld) [#/Vol] 7.7 103/mcL Normal 4.6 - 10.8 10^3/mcL AO Workflow SS UAon 02-22-2023 Color (U) Yellow Normal [facility] ([place]) Comment on above: Performed By: #### C NGOZI DEL CASTILLO ADIFF, MDW, ANEU, BMP #### [address] [address] Glucose (U) [Mass/Vol] Negative Normal Negative [facility] ([place]) Comment on above: Performed By: #### C MAGDALENE, GFRRANDAL MDW, ANEU, BMP #### [address] [address] Ketones Ql (U) Negative Normal Negative [facility] ([place]) Comment on above: Performed By: #### C NGOZI DEL CASTILLO ADIFF, MDW, ANEU, BMP #### [address] [address] UA Appear Slightly Cloudy Abnormal Clear [facility] ([place]) Comment on above: Performed By: #### C MAGDALENE, GFRRANDAL MDW, ANEU, BMP #### [address] [address] UA Blood Negative Normal Negative [facility] [place] [facility] ([place] Comment on above: Performed By: #### C MAGDALENE GFRRANDAL MDW, ANEU, BMP #### [address] [address] UA Leuk Est Trace Abnormal Negative [facility] ([place]) Comment on above: Performed By: #### C MAGDALENE GFRRANDAL MDW, ANEU, BMP #### [address] [address] UA Nitrite Negative Normal Negative [facility] ([place]) Comment on above: Performed By: #### C BC GFRRANDAL MDW, ANEU, BMP #### [address] [address] UA pH 5.5 Normal 5.0 - 8.0 [facility] ([place]) Comment on above: Performed By: #### C BC, GFRRANDAL MDW, ANEU, BMP #### [address] [address] UA Protein Negative Normal Negative [facility] ([place] Comment on above: Performed By: #### C MAGDALENE, RANDAL MELVIN MDW, ANEU, BMP #### [address] [address] UA Spec Grav >=1.030 Abnormal 1.015-1.025 [facility] ([place]) Comment on above: Performed By: #### C MAGDALENE, RANDAL MELVIN MDW, ANEU, BMP #### [address] [address] UA Specimen Type Clean Catch Normal [facility] ([place] Comment on above: Performed By: #### C MAGDALENE, RANDAL MELVIN MDW, ANEU, BMP #### [address] [address] UA Urobilinogen 0.2 E.U./dL Normal 0.2-1.0 [facility] ([place] Comment on above: Performed By: #### C MAGDALENE, RANDAL MELVIN MDW, ANEU, BMP #### [address] [address] Urobilinogen (U) [Mass/Vol] Negative Normal Negative [facility] ([place] Comment on above: Performed By: #### C MAGDALENE, GFRRANDAL MDW, ANEU, BMP #### [address] [address] Absolute lymphocyte counton 02-08-2022 Lymphocytes Auto (Unsp spec) [#/Vol] 1.60 10*3/uL 0.83-4.51 [facility] Work Phone: Basophil percentageon 2021 Basophils/100 WBC (Bld) 0.3 % 0-1 [facility] Work Phone: [phone] Bilirubin [Mass/Vol] 0.40 mg/dL 0.20-1.00 [facility] Work Phone: Comment on above: For patients on eltr ombopag therapy, use of Dimension [place] TBIL is not recommended. Chloride [Moles/Vol] 104 mmol/L 98-107 [facility]: Eosinophils/100 WBC (Bld) 4.0 % 0-5 [facility] Work Phone: Glucose [Mass/Vol] 81 mg/dL 74-106 [facility] Work Phone: Neutrophils (Bld) [#/Vol] 3.6 10*3/uL 2.0-7.7 [facility] Work Phone: Neutrophils/100 WBC (Bld) 61.8 % 47-70 [facility] Work Phone: Potassium [Moles/Vol] 3.9 mmol/L 3.5-5.1 [facility] Work Phone: Protein [Mass/Vol] 6.1 g/dL 6.4-8.2 [facility] Work Phone: Sodium [Moles/Vol] 138 mmol/L 136-145 [facility] Work Phone: WBC (Bld) [#/Vol] 5.8 10*3/uL 4.4-11.0 [facility] Work Phone: Blood erythrocytes count (nu mber/volume)on 02-08-2022 RBC (Bld) [#/Vol] 3.48 10*6/uL 4.2-5.4 [facility]: Blood hemoglobin measurement (mass/volume)on 02-08-2022 Hemoglobin (Bld) [Mass/Vol] 8.6 g/dL 12.0-15.0 [facility] Work Phone: Blood lymphocytes/100 leukoc yteson 02-08-2022 Lymphocytes/100 WBC (Bld) 27.6 % 19-41 [facility] Work Phone: Blood monocytes/100 leukocyt eson 02-08-2022 Monocytes/100 WBC (Bld) 6.0 % 0-10 [facility] Work Phone: Blood platelet mean volumeon 02-08-2022 Platelet mean volume (Bld) [Entitic vol] 11.5 fL 6.2-12.0 [facility] Work Phone: Determination of erythrocyte mean corpuscular volume (MCV)on 02-08-2022 MCV (RBC) [Entitic vol] 79.3 fL 81-99 [facility] Work Phone: Hematocrit Auto (Bld) [Volum e fraction]on 02-08-2022 Hematocrit (Bld) [Volume fraction] 27.6 % 37-47 [facility] Work Phone: Laboratory - Chemistry and C hemistry - challengeon 02-08-2022 ALP [Catalytic activity/Vol] 110 U/L 45-117 [facility] Work Phone: ALT [Catalytic activity/Vol] 16 U/L 13-56 [facility] Work Phone: CO2 [Moles/Vol] 29.0 mmol/L 21.0-32.0 [facility] Work Phone: Globulin (S) [Mass/Vol] 4.1 g/dL 2.2-4.2 [facility] Work Phone: Urea nitrogen/Creatinine [Mass ratio] 14.3 mg/mg 10-20 [facility] Work Phone: Laboratory - Hematology and Cell countson 02-08-2022 Erythrocyte distribution width (RBC) [Entitic vol] 43.5 fL 35.1-43.9 [facility] Work Phone: Erythrocyte distribution width (RBC) [Ratio] 15.1 % 11.6-14.6 [facility] Work Phone: Immature granulocytes/100 WBC (Bld) 0.300 % 0.0-0.9 [facility] Work Phone: Comment on above: IG% - Immature Granu locytes (promyelocytes, myelocytes and metamyelocytes) > 1% indicates that a LEFT SHIFT is Present. MCH (RBC) [Entitic mass] 24.7 pg 27.0-32.0 [facility] Work Phone: Nucleated RBC/100 WBC (Bld) [Ratio] 0 % 0-5 [facility] Work Phone: MCHC Auto (RBC) [Mass/Vol]on 02-08-2022 MCHC (RBC) [Mass/Vol] 31.2 g/dL 32-36 [facility] Work Phone: No Panel Informationon 02-08 Estimated Creatinine Clearance Calc 135.06 ml/min [facility] Work Phone: Estimated GFR (MDRD) Amer 150 mL/min >60 [facility] Work Phone: Comment on above: GFR Calc Estimated GFR (MDRD) Non-Af Amer 124 mL/min >60 [facility] Work Phone: Comment on above: Non- GFR Calc Platelets bldon 02-08-2022 Platelets (Bld) [#/Vol] 175 10*3/uL 150-450 [facility] Work Phone: Serum or plasma albumin benita urement (mass/volume)on 02-08-2022 Albumin [Mass/Vol] 2.0 g/dL 3.2-5.0 [facility] Work Phone: Serum or plasma albumin/glob ulin mass ratioon 02-08-2022 Albumin/Globulin [Mass ratio] 0.5 {ratio} 0.9-2.4 [facility] Work Phone: Serum or plasma calcium benita urement (mass/volume)on 02-08-2022 Calcium [Mass/Vol] 8.7 mg/dL 8.5-10.1 [facility] Work Phone: Serum or plasma creatinine m easurement (mass/volume)on 02-08-2022 Creatinine [Mass/Vol] 0.63 mg/dL 0.55-1.02 [facility] Work Phone: Comment on above: The validity of the calculated GFR & GFRAA in patients over 70 years has not been determined. Clinical correlation is essential. Serum or plasma urea nitroge n measurement (mass/volume)on 02-08-2022 Urea nitrogen [Mass/Vol] 9 mg/dL 7-18 [facility] Work Phone: Thin prep Papanicolaou smear with manual screeningon 02-08-2022 Thin prep Papanicolaou smear with manual screening 24 U/L 15-37 [facility] Work Phone: Thin prep Papanicolaou smear with manual screening 5 5-15 [facility] Work Phone: Thin prep Papanicolaou smear with manual screening 183 U/L 84-246 [facility] Work Phone: Laboratory - Chemistry and C hemistry - challengeon 02-05-2022 Magnesium [Mass/Vol] 5.4 mg/dL 1.6-2.6 [facility] Work Phone: Comment on above: Critical Result(s) C alled at: 06:16:01 02/05/2022 by: Mirela Tejeda to [facility]. Results read back by same. Basophil percentageon 2021 Basophil percentage 25-50 SEEN /hpf 0-5 [facility] Work Phone: Bilirubin Test strip Ql (U)o n 02-04-2022 Bilirubin Ql (U) Negative Negative [facility] Work Phone: Ketones Test strip Ql (U)on 02-04-2022 Ketones Ql (U) 5 mg/dl Negative [facility] Work Phone: Mucus LM Ql (Urine sed)on Mucus Ql (Urine sed) 0 SEEN /hpf [facility] Work Phone: Nitrite Test strip Ql (U)on 02-04-2022 Nitrite Ql (U) Negative Negative [facility] Work Phone: No Panel Informationon 02-04 Vaginal Amniotic Fluid Detection Negative Negative [facility] Work Phone: Comment on above: Amniotic fluid not p resent indicates No Rupture of FetalMembranes at time of specimen collection. Protein Test strip Ql (U)on 02-04-2022 Protein Ql (U) 100 mg/dl Negative [facility] Work Phone: Serum or plasma uric acid me asurement (mass/volume)on 02-04-2022 Urate [Mass/Vol] 7.5 mg/dL 2.6-6.0 [facility] Work Phone: Comment on above: The drugs N-Acetylcy steine and Metamizole may falsely depress this assay. Squamous epithelial cells de tection in urine sediment by light microscopyon 02-04-2022 Epithelial cells.squamous LM Ql (Urine sed) 50-100 SEEN /hpf 5-10 [facility] Work Phone: Urine blood detectionon 01-19 RBC Ql (U) 10 /ul Negative [facility] Work Phone: RBC Ql (U) 0 SEEN /hpf 0-5 [facility] Work Phone: Urine clarityon 02-04-2022 Clarity (U) Clear Clear [facility] Work Phone: Urine color determinationon 02-04-2022 Color (U) Yellow Yellow [facility] Work Phone: Urine creatinine measurement (mass/volume)on 02-04-2022 Creatinine (U) [Mass/Vol] 150.00 mg/dL NO RANGE EST. [facility] Work Phone: Urine glucose detectionon Glucose Ql (U) Normal mg/dl Normal [facility] Work Phone: Urine leukocyte esterase det ection by dipstickon 02-04-2022 Leukocyte esterase Test strip Ql (U) 500 /ul Negative [facility] Work Phone: Urine pHon 02-04-2022 pH (U) 7.0 [pH] 5.0 - 8.0 [facility] Work Phone: Urine protein measurement (m ass/volume)on 02-04-2022 Protein (U) [Mass/Vol] 135.5 mg/dL 0.0-11.8 [facility] Work Phone: Urine protein/creatinine mas s ratioon 02-04-2022 Protein/Creatinine (U) [Mass ratio] 903 mg/g CRE 0-200 [facility] Work Phone: Urine sediment bacteria coun t by microscopy (number/high power field)on 02-04-2022 Bacteria LM.HPF (Urine sed) [#/Area] 0 /[HPF] None Seen [facility] Work Phone: Urine specific gravity measu rementon 02-04-2022 Specific gravity (U) [Rel density] 1.010 1.002-1.030 [facility] Work Phone: Urobilinogen Auto test strip Ql (U)on 02-04-2022 Urobilinogen Ql (U) Normal mg/dl Normal [facility] Work Phone: Absolute lymphocyte counton 02-01-2022 Lymphocytes Auto (Unsp spec) [#/Vol] 1.11 10*3/uL 0.83-4.51 [facility] Work Phone: Basophil percentageon 2021 Basophils/100 WBC (Bld) 0.4 % 0-1 [facility] Work Phone: Bilirubin [Mass/Vol] 0.40 mg/dL 0.20-1.00 [facility] Work Phone: Comment on above: For patients on eltr ombopag therapy, use of Dimension [place] TBIL is not recommended. Chloride [Moles/Vol] 107 mmol/L 98-107 [facility] Work Phone: Eosinophils/100 WBC (Bld) 0.4 % 0-5 [facility] Work Phone: Glucose [Mass/Vol] 81 mg/dL 74-106 [facility] Work Phone: Neutrophils (Bld) [#/Vol] 3.1 10*3/uL 2.0-7.7 [facility] Work Phone: Neutrophils/100 WBC (Bld) 67.3 % 47-70 [facility] Work Phone: Potassium [Moles/Vol] 3.8 mmol/L 3.5-5.1 [facility] Work Phone: Protein [Mass/Vol] 6.1 g/dL 6.4-8.2 [facility]: Sodium [Moles/Vol] 139 mmol/L 136-145 [facility] Work Phone: WBC (Bld) [#/Vol] 4.6 10*3/uL 4.4-11.0 [facility] Work Phone: Blood erythrocytes count (nu mber/volume)on 02-01-2022 RBC (Bld) [#/Vol] 3.92 10*6/uL 4.2-5.4 [facility] Work Phone: Blood hemoglobin measurement (mass/volume)on 02-01-2022 Hemoglobin (Bld) [Mass/Vol] 9.8 g/dL 12.0-15.0 [facility] Work Phone: Blood lymphocytes/100 leukoc yteson 02-01-2022 Lymphocytes/100 WBC (Bld) 24.0 % 19-41 [facility] Work Phone: Blood monocytes/100 leukocyt eson 02-01-2022 Monocytes/100 WBC (Bld) 7.3 % 0-10 [facility] Work Phone: Blood platelet mean volumeon 02-01-2022 Platelet mean volume (Bld) [Entitic vol] 12.2 fL 6.2-12.0 [facility] Work Phone: Determination of erythrocyte mean corpuscular volume (MCV)on 02-01-2022 MCV (RBC) [Entitic vol] 78.1 fL 81-99 [facility] Work Phone: [phone] Hematocrit Auto (Bld) [Volum e fraction]on 02-01-2022 Hematocrit (Bld) [Volume fraction] 30.6 % 37-47 [facility] Work Phone: Laboratory - Chemistry and C hemistry - challengeon 02-01-2022 ALP [Catalytic activity/Vol] 158 U/L 45-117 [facility] Work Phone: ALT [Catalytic activity/Vol] 35 U/L 13-56 [facility] Work Phone: CO2 [Moles/Vol] 26.0 mmol/L 21.0-32.0 [facility] Work Phone: Globulin (S) [Mass/Vol] 4.1 g/dL 2.2-4.2 [facility] Work Phone: Urea nitrogen/Creatinine [Mass ratio] 8.6 mg/mg 10-20 [facility] Work Phone: Laboratory - Hematology and Cell countson 02-01-2022 Erythrocyte distribution width (RBC) [Entitic vol] 38.8 fL 35.1-43.9 [facility] Work Phone: Erythrocyte distribution width (RBC) [Ratio] 13.9 % 11.6-14.6 [facility] Work Phone: Immature granulocytes/100 WBC (Bld) 0.600 % 0.0-0.9 [facility] Work Phone: Comment on above: IG% - Immature Granu locytes (promyelocytes, myelocytes and metamyelocytes) > 1% indicates that a LEFT SHIFT is Present. MCH (RBC) [Entitic mass] 25.0 pg 27.0-32.0 [facility] Work Phone: Nucleated RBC/100 WBC (Bld) [Ratio] 0.4 % 0-5 [facility] Work Phone: MCHC Auto (RBC) [Mass/Vol]on 02-01-2022 MCHC (RBC) [Mass/Vol] 32.0 g/dL 32-36 [facility] Work Phone: No Panel Informationon 02-01 Estimated GFR (MDRD) Amer 134 mL/min >60 [facility] Work Phone: Comment on above: GFR Calc Estimated GFR (MDRD) Non-Af Amer 111 mL/min >60 [facility] Work Phone: Comment on above: Non- GFR Calc Platelets bldon 02-01-2022 Platelets (Bld) [#/Vol] 157 10*3/uL 150-450 [facility] Work Phone: Serum or plasma albumin benita urement (mass/volume)on 02-01-2022 Albumin [Mass/Vol] 2.0 g/dL 3.2-5.0 [facility] Work Phone: Serum or plasma albumin/glob ulin mass ratioon 02-01-2022 Albumin/Globulin [Mass ratio] 0.5 {ratio} 0.9-2.4 [facility] Work Phone: Serum or plasma calcium benita urement (mass/volume)on 02-01-2022 Calcium [Mass/Vol] 8.4 mg/dL 8.5-10.1 [facility] Work Phone: Serum or plasma creatinine m easurement (mass/volume)on 02-01-2022 Creatinine [Mass/Vol] 0.70 mg/dL 0.55-1.02 [facility] Work Phone: Comment on above: The validity of the calculated GFR & GFRAA in patients over 70 years has not been determined. Clinical correlation is essential. Serum or plasma urea nitroge n measurement (mass/volume)on 02-01-2022 Urea nitrogen [Mass/Vol] 6 mg/dL 7-18 [facility] Work Phone: Thin prep Papanicolaou smear with manual screeningon 02-01-2022 Thin prep Papanicolaou smear with manual screening 35 U/L 15-37 [facility] Work Phone: Thin prep Papanicolaou smear with manual screening 6 5-15 [facility] Work Phone: Thin prep Papanicolaou smear with manual screening 198 U/L 84-246 [facility] Work Phone: Urine creatinine measurement (mass/volume)on 02-01-2022 Creatinine (U) [Mass/Vol] 73.30 mg/dL NO RANGE EST. [facility] Work Phone: Urine protein measurement (m ass/volume)on 02-01-2022 Protein (U) [Mass/Vol] 48.2 mg/dL 0.0-11.8 [facility] Work Phone: Urine protein/creatinine mas s ratioon 02-01-2022 Protein/Creatinine (U) [Mass ratio] 658 mg/g CRE 0-200 [facility] Work Phone: Progress Noteon 01-31-2022 Progress Note ------ -- Attestation signed by Sarina Carey MD at 01/31/2022 2:44 PM I independently saw and evaluated the patient. I agree with the findings and plan of care as documented in the resident's note. 21 yr old at 34 1/7 GA with the following: Threatened labor s/p BMZ X 2 stable and discussed discharge today if stable. Precautions addressed Nicolasa twin concordant growth and both are cephalic desires if possible given their current position, defer final decision at the time of labor with her OB team Pre-Ewo SF doing well currently Anemia hemoglobin 10.4 this admission History of PTD currently on vaginal progesterone Depression continued zoloft Anesthesia complications-pseudocholin esterase deficiency Magnesium is not contraindicated HSV history repeat exam if labor continued VALTREX 500mg BID on I spent 15 minutes in the visit today on the floor reviewing the chart, discussing the case with the residency staff and nursing Sarina Carey MD -- Maternal Medicine Service Resident Progress Note 01/31/2022 6:06 AM 01/28/2022 Hospital Day: 4 Juanita Paulino, 21 y.o. 34w1d Patient has been seen and examined. Pt had some rare contractions overnight. Continues to have mucous discharge some of which is blood tinged. SVE overnight without any cervical change. Positive movement Negative vaginal bleeding Negative LOF Positive Contractions Vitals: 01/30/22 1600 01/30/22200001/30/22200401/30/22 2322 BP: 124/69 122/63 Pulse: 70 74 69 66 Resp: 16 18 Temp: 37.1 ?C (98.8 ?F) 36.8 ?C (98.3 ?F) TempSrc: Temporal Temporal SpO2: 96% 97% 96% Weight: Height: FHT: Cat I/Cat I Contractions: None Physical Exam: Gen: NAD, resting comfortably in bed HEENT: Normocephalic, Atraumatic Resp: No increased WOB, no respiratory distress Card: Regular rate Medications: Current Facility-Administered Medications Medication Dose Route Frequency Provider Last Rate Last Admin acetaminophen (Tylenol) tablet 650 mg 650 mg Oral q6h PRN Bunny Ramirez DO 650 mg at 01/28/22 1500 Or acetaminophen (Tylenol) suppository 650 mg 650 mg Rectal q6h PRN Bunny Ramirez DO docusate sodium (Colace) capsule 100 mg 100 mg Oral BID Bunny Ramirez DO 100 mg at 01/30/22 0906 ferrous sulfate tablet 325 mg 325 mg Oral Daily with breakfast Mami Mascorro DO 325 mg at 01/30/22 0743 influenza vac subunit quadrivalent (Flucelvax) injection 0.5 mL 0.5 mL IntraMUSCular Once Mariah Ansari MD Lidocaine 4 % patch 1 patch 1 patch TransDERmal Daily Asiya German DO 1 patch at 01/30/22 210 ondansetron ODT (Zofran-ODT) disintegrating tablet 4 mg 4 mg Oral q8h PRN Bunny R Hill, DO Or ondansetron (Zofran) injection 4 mg 4 mg IntraVENous q6h PRN Bunny Ramirez, DO vitamin tablet 1 tablet Oral Daily Bunny Ramirez, DO 1 tablet at 01/30/22 09 sertraline (Zoloft) tablet 50 mg 50 mg Oral Daily Bunny Ramirez, DO 50 mg at 01/30/22 09 sodium chloride 0.9% (NS) flush 10 mL 10 mL IntraVENous PRN Asiyatoma German DO valACYclovir (Valtrex) tablet 500 mg 500 mg Oral BID Bunny Ramirez, DO 500 mg at 01/30/222105 Assessment/Plan: Juanita Paulino is a 21 y.o. female 34w1d tPTL -Made change from 2 to 4 cm on admission -Given BMZ x2 on 01/28 ([facility]) and 01/29 ([facility]) -s/p Procardia for tocolysis - SVE remains 4 cm since admission, last SVE 01/20 -s/p NICU consult Nicolasa Twin Gestation -Most recent growth 01/30 noted A: 2557g 59%, cephalic. B 2557g 59%, cephalic - After discussion regarding Vtx/vtx presentation, now would prefer vaginal delivery PreEwoSF -Mild range Bps noted >4 hours apart at [facility] and [facility] -No hx of HTN disorders previously -UPC at [facility] 0.4, however repeat at [facility] 0.24 -CMP and CBC wnl -Asymptomatic -BP overnight normotensive Anemia -Hgb on admission 10.4 -Iron and colace ordered HSV -Recent outbreak 1 week prior to admission and on suppressive valtrex, reports compliance -SEE negative at [facility] and [facility] for lesions -Continue Valtrex 500g BID -Plan for SVE if makes cervical change Hx of PTD -G1 36w PPROM leading to -Compliant with vaginal progesterone this -Not currently continued while inpatient Depression -Continue home zoloft Anesthesia Complications -Pseudocholinesterase deficiency -Anesthesia notified on arrival IUP @ 34w1d - Dating by ART - Vtx/Vtx 01/30 - Monitorinhr TID - Diet:General - BMZ x2 on 01/28- Further plan pending d/w attending. Mariah Ansari MD 01/31/2022, 6:[address] [facility] 01-30-2022 [place] 21 year old admitted for and transport from [facility] to labor with di/di twins at 33/5 weeks. 2 Para 1. Preeclampsia History of delivery, on progesterone. History of depression, mood stable ion Zoloft. Denies needs of food, transportation or housing. Voiced no needs or concerns. Normal [facility] Consulton 01-30-2022 Consult Consult by Neonatology Request by OB: Resident for Dr. Carey Reason for Consult: Prematurity, Twin Gestation Maternal History and current problem: Di/Di twin gestation at 34 weeks. Presented to [facility] with labor and pre-eclampsia without severe features. Transferred to [facility] for management. Significant history: ART , PTL, Pre-E, History of HSV Medications: Procardia 10 mg every 6 hours x 48 hours (01/28-01/30/22), Valtrex daily for HSV suppression, vaginal progesterone, Zoloft Betamethasone given: 12 mg x 2; 01/28/22 & 01/29/22 Labs: Blood type: O+, Antibody: Negative GBS: Negative Hepatitis B Ag: Unknown RPR: Non-reactive Rubella: Immune HIV: Negative Hepatitis C: Unknown GC/CT: Negative x 2 HSV history: History of HSV, no active lesions currently, on Valtrex suppression BID CF: Unknown Glucose challenge test: 1hr gtt 140 but passed 3hr gtt (per H&P) Present for Consult: patient only Baby Sex: Both twins are female Baby Name: Did not ask US findings: Baby B breech EDC by: EFW: Recent growth 01/10 A 1869g 64% and B 1793g 52%, Any known anomalies: I discussed: Survival statistics Delivery room management: Delayed cord clamping, possible need for CPAP, Oxygen, intubation and surfactant. IV access, possible need for advanced resuscitation, possible need for umbilical lines. Baby is a full resuscitation. Respiratory distress syndrome Feeding with NG tube and benefit of MBM. Mom plans on providing MBM. Feeding readiness and growth expectations, Risk of Necrotizing enterocolitis Jaundice and phototherapy Apnea of prematurity and caffeine Risk of infection- early and late onset Skin to skin opportunities Physiologic criteria for discharge and timing of discharge estimate from NICU Potential need for transfer to [facility] if needs esclation of care, based on a variety of factors. Handouts given. No further questions. A/P: Patient is a 21 Year old At 34 Weeks 0 Days by Pt. report With labor and pre-eclampsia without severe features 1. Current Management per OB 2. NICU to attend delivery 3. Call NICU if further questions. Stephan Darden, MOTOR POOL DRIVER-TRIAGE LICENSED PRACTICAL NURSE Normal [facility] Nursing Noteon 01-30-2022 Nursing Note Patient sitting up i n chair, stating that she is having vaginal pressure especially when up walking and sitting on toilet, also having lots of Bms today. Has had several times of blood streaked mucous when wiping. Normal [facility] Progress Noteon 01-30-2022 Progress Note Patient feeling some low back pain, possibly some mild contractions every once in a while. Having increased mucous discharge with int vaginal spotting when she wipes. SVE unchanged from last night /. Patient reassured and will try tylenol with lidocaine patch, back pain is most likely from MSK pain. [place] quiet. ASIYA GERMAN DO 01/30/2022 8:39 PM [facility] Progress Note Nutrition rescreen completed. Chart reviewed. Patient to be monitored and followed by the diet chief technician x ray. Dietitian available upon request. ALCIRA Baez [facility] Progress Note ------ -- Attestation signed by Sarina Carey MD at 01/30/2022 1:03 PM I independently saw and evaluated the patient. I agree with the findings and plan of care as documented in the resident's note. 21 yr old at 34 0/7 GA with the following: Threatened labor s/p BMZ X 2 concerns heard today about being far from the hospital and discussed ongoing observation until mid week Nicolasa twin concordant growth and both are cephalic today desires if possible given their current position Pre-Ewo SF doing well currently Anemia hemoglobin 10.4 this admission History of PTD currently on vaginal progesterone Depression continued zoloft Anesthesia complications-pseudocholin esterase deficiency Magnesium is not contraindicated HSV history repeat exam if labor continued VALTREX 500mg BID I spent 15 minutes in the visit today on the floor reviewing the chart, discussing the case with the residency staff and nursing Sarina Carey MD -- Maternal Medicine Service Resident Progress Note 01/30/2022 6:33 AM 01/28/2022 Hospital Day: 3 Juanita Paulino, 21 y.o. 34w0d Patient has been seen and examined. Pt has no complaints this morning. Has lots of mucous discharge last night. Had SSE and SVE last night. Positive movement Negative vaginal bleeding Negative LOF Negative Contractions Vitals: 01/29/22 1403 01/29/229 01/30/22 0205 01/30/22 0601 BP: 136/85 126/71 124/67 128/75 BP Location: Right arm Patient Position: Sitting Pulse: 84 92 90 78 Resp: 18 19 17 16 Temp: 37 ?C (98.6 ?F) 36.7 ?C (98 ?F) 37 ?C (98.6 ?F) 37 ?C (98.6 ?F) TempSrc: Temporal Oral Oral Oral SpO2: 96% 98% 98% 99% Weight: Height: FHT: Cat I/Cat I Physical Exam: Gen: NAD, resting comfortably in bed HEENT: Normocephalic, Atraumatic Resp: No increased WOB, no respiratory distress Card: Regular rate Abd: soft, NTND, no rebound, no guarding. Medications: Current Facility-Administered Medications Medication Dose Route Frequency Provider Last Rate Last Admin acetaminophen (Tylenol) tablet 650 mg 650 mg Oral q6h PRN Bunny Ramirez DO 650 mg at 01/28/22 1500 Or acetaminophen (Tylenol) suppository 650 mg 650 mg Rectal q6h PRN Bunny Ramirez, DO Chlorhexidine Gluconate Cloth 2 % cloth Topical q6h Bunny Ramirez, DO 1 each at 01/28/222040 docusate sodium (Colace) capsule 100 mg 100 mg Oral BID Bunny R Mark, DO 100 mg at 01/29/222028 ferrous sulfate tablet 325 mg 325 mg Oral Daily with breakfast Mami Mascorro, DO 325 mg at 01/29/22 0811 ondansetron ODT (Zofran-ODT) disintegrating tablet 4 mg 4 mg Oral q8h PRN Bunny Ramirez, DO Or ondansetron (Zofran) injection 4 mg 4 mg IntraVENous q6h PRN Bunny Ramirez, DO vitamin tablet 1 tablet Oral Daily Bunny Ramirez, DO 1 tablet at 01/29/22 08 sertraline (Zoloft) tablet 50 mg 50 mg Oral Daily Bunny Ramirez, DO 50 mg at 01/29/22 08 sodium chloride-bacteriostatic 0.9 % injection 10 mL 10 mL IntraVENous BID Marjorie Guadarrama MD 10 mL at 01/29/222149 valACYclovir (Valtrex) tablet 500 mg 500 mg Oral BID Bunny R Mark, DO 500 mg at 01/29/222027 Assessment/Plan: Juanita Paulino is a 21 y.o. female 34w0d tPTL -Made change from 2 to 4 cm -Given BMZ x2 on 01/28 ([facility]) and 01/29 ([facility]) -s/p Procardia for tocolysis -Recommend delivery via PCD if patient makes change to 6cm - SVE remains 4 cm on 01/29 -NICU aware Nicolasa Twin Gestation -Most recent growth noted 01/10 Twin A: 1859 64%ile, B 1793g 52%ile -Desires PCD for delivery - Growth US for today PreEwoSF -Mild range Bps noted >4 hours apart at [facility] and [facility] -No hx of HTN disorders previously -UPC at [facility] 0.4, however repeat at [facility] 0.24 -CMP and CBC wnl -Asymptomatic -BP overnight normotensive Anemia -Hgb on admission 10.4 -Iron and colace ordered HSV -Recent outbreak 1 week ago and on suppressive valtrex, reports compliance -SEE negative at [facility] and [facility] for lesions -Continue Valtrex 500g BID -Planning for PCD per patient preference Hx of PTD -G1 36w PPROM leading to -Compliant with vaginal progesterone this -Not currently continued while inpatient Depression -Continue home zoloft Anesthesia Complications -Pseudocholinesterase deficiency -Anesthesia notified on arrival IUP @ 34w0d - Dating by IUI - Cephalic/Br 01/28 - Monitorinhr TID - Diet:General - BMZ x2 ob Further plan pending d/w attending. Mariah Ansari MD 01/30/2022, 6:33 AM Normal [facility] US BIOPHYSICAL PROFILE WO NON STRESS TESTINGon 01-30-2022 US BIOPHYSICAL PROFILE WO NON STRESS TESTING OBSTETRICS REPORT (Signed Final 01/30/2022 11:25 am) PATIENT INFO: ID #: [id number] : [birth year] (21 yrs)(F) Name: JUANITA PAULINO Visit Date: 01/30/2022 10:23 am PERFORMED BY: Attending: Sarina Carey MD Performed By: Dorita Kam RDMS Referred By: BUNNY RAMIREZ Location: [facility] IP Visit Type: Inpatient - Hospital SERVICE(S) PROVIDED: [place] [id number] [place] [address] BPP w/out NST 91692 BPP w/out NST 47709 INDICATIONS: Di/ Di Twins Threatened Labor VITAL SIGNS: Weight (lb): 305 Height: 5'7 BMI: 47.76 EVALUATION (FETUS A): Num Of Fetuses: 2 Heart Rate(bpm): 152 Cardiac Activity: Regular rhythm Lie: Longitudinal Maternal RT Presentation: Cephalic Placenta: Posterior Membrane Desc: Dichorionic - diamniotic Membrane Size: Normal Amniotic Fluid ARIK FV: Within normal limits Largest Pocket(cm) 4.5 BIOPHYSICAL EVALUATION (FETUS A): Amniotic F.V: Within normal limits F. Tone: Observed F. Movement: Observed Score: 8/8 F. Breathing: Observed BIOMETRY (FETUS A): BPD: 84.5 mm G.Age: 34w 0d 48 % OFD: 117.3 mm HC: 325.9 mm G.Age: 37w 0d 85 % AC: 305.4 mm G.Age: 34w 3d 68 % FL: 69 mm G.Age: 35w 3d 77 % CI: 72.0 % 70 - 86 FL/HC: 21.2 % 19.4 - 21.8 HC/AC: 1.07 0.96 - 1.11 FL/BPD: 81.7 % 71 - 87 FL/AC: 22.6 % 20 - 24 Est. FW: 2557 gm 5 lb 10 oz 59 % FW Discordancy: 0 \ 0 % GESTATIONAL AGE (FETUS A): Clinical MARCELLE: 34w 0d MARCELLE: 03/13/22 U/S Today: 35w 2d MARCELLE: 03/04/22 Best: 34w 0d Det. By: Clinical MARCELLE MARCELLE: 03/13/22 ANATOMY (FETUS A): Cranium: Normal appearance Cavum: Normal appearance Ventricles: Normal appearance Choroid Plexus: Normal appearance Cerebellum: Normal appearance Posterior Fossa: Normal appearance Nuchal Fold: Normal appearance Face: Previously visualized Lips: Previously visualized Palate: Previously visualized Thoracic: Normal appearance Heart: Normal appearance RVOT: Normal appearance LVOT: Normal appearance Aortic Arch: Previously visualized Ductal Arch: Previously visualized Diaphragm: Normal appearance Stomach: Normal appearance Abdomen: Normal appearance Abdominal Wall: Normal appearance Cord Vessels: Normal 3-Vessel Cord Kidneys: Normal appearance Bladder: Normal appearance Spine: Previously visualized Upper Extremities: Normal appearance Lower Extremities: Normal appearance EVALUATION (FETUS B): Num Of Fetuses: 2 Heart Rate(bpm): 117 Cardiac Activity: Regular rhythm Lie: Longitudinal Maternal LT Presentation: Cephalic Placenta: Posterior Membrane Desc: Dichorionic - diamniotic Membrane Size: Normal Amniotic Fluid ARIK FV: Within normal limits Largest Pocket(cm) 7.1 BIOPHYSICAL EVALUATION (FETUS B): Amniotic F.V: Within normal limits F. Tone: Observed F. Movement: Observed Score: 8/8 F. Breathing: Observed BIOMETRY (FETUS B): BPD: 84.5 mm G.Age: 34w 0d 48 % OFD: 117.3 mm HC: 325.9 mm G.Age: 37w 0d 85 % AC: 305.4 mm G.Age: 34w 3d 68 % FL: 69 mm G.Age: 35w 3d 77 % CI: 72.0 % 70 - 86 FL/HC: 21.2 % 19.4 - 21.8 HC/AC: 1.07 0.96 - 1.11 FL/BPD: 81.7 % 71 - 87 FL/AC: 22.6 % 20 - 24 Est. FW: 2557 gm 5 lb 10 oz 59 % FW Discordancy: 0 \ 0 % GESTATIONAL AGE (FETUS B): Clinical MARCELLE: 34w 0d MARCELLE: 03/13/22 U/S Today: 35w 2d MARCELLE: 03/04/22 Best: 34w 0d Det. By: Clinical MARCELLE MARCELLE: 03/13/22 ANATOMY (FETUS B): Cranium: Normal appearance Cavum: Normal appearance Ventricles: Normal appearance Choroid Plexus: Normal appearance Cerebellum: Normal appearance Posterior Fossa: Normal appearance Nuchal Fold: Normal appearance Face: Previously visualized Lips: Previously visualized Palate: Previously visualized Thoracic: Normal appearance Heart: Normal appearance (more content not included)... Normal [facility] OB FOLLOW UP TRANSABDOMIN AL APPROACHon 01-30-2022 OB FOLLOW UP TRANSABDOMINAL APPROACH OBSTETRICS REPORT (Signed Final 01/30/2022 11:25 am) PATIENT INFO: ID #: [id number] : [birth year] (21 yrs)(F) Name: JUANITA PAULINO Visit Date: 01/30/2022 10:23 am PERFORMED BY: Attending: Sarina Carey MD Performed By: Dorita Kam RDMS Referred By: BUNNY RAMIREZ Location: [facility] IP Visit Type: Inpatient - Hospital SERVICE(S) [place] [id number] [place] [address] BPP w/out NST 25712 BPP w/out NST 12471 INDICATIONS: Di/ Di Twins Threatened Labor VITAL SIGNS: Weight (lb): 305 Height: 5'7 BMI: 47.76 EVALUATION (FETUS A): Num Of Fetuses: 2 Heart Rate(bpm): 152 Cardiac Activity: Regular rhythm Lie: Longitudinal Maternal RT Presentation: Cephalic Placenta: Posterior Membrane Desc: Dichorionic - diamniotic Membrane Size: Normal Amniotic Fluid ARIK FV: Within normal limits Largest Pocket(cm) 4.5 BIOPHYSICAL EVALUATION (FETUS A): Amniotic F.V: Within normal limits F. Tone: Observed F. Movement: Observed Score: 09/26 F. Breathing: Observed BIOMETRY (FETUS A): BPD: 84.5 mm G.Age: 34w 0d 48 % OFD: 117.3 mm HC: 325.9 mm G.Age: 37w 0d 85 % AC: 305.4 mm G.Age: 34w 3d 68 % FL: 69 mm G.Age: 35w 3d 77 % CI: 72.0 % 70 - 86 FL/HC: 21.2 % 19.4 - 21.8 HC/AC: 1.07 0.96 - 1.11 FL/BPD: 81.7 % 71 - 87 FL/AC: 22.6 % 20 - 24 Est. FW: 2557 gm 5 lb 10 oz 59 % FW Discordancy: 0 \ 0 % GESTATIONAL AGE (FETUS A): Clinical MARCELLE: 34w 0d MARCELLE: 03/13/22 U/S Today: 35w 2d MARCELLE: 03/04/22 Best: 34w 0d Det. By: Clinical MARCELLE MARCELLE: 03/13/22 ANATOMY (FETUS A): Cranium: Normal appearance Cavum: Normal appearance Ventricles: Normal appearance Choroid Plexus: Normal appearance Cerebellum: Normal appearance Posterior Fossa: Normal appearance Nuchal Fold: Normal appearance Face: Previously visualized Lips: Previously visualized Palate: Previously visualized Thoracic: Normal appearance Heart: Normal appearance RVOT: Normal appearance LVOT: Normal appearance Aortic Arch: Previously visualized Ductal Arch: Previously visualized Diaphragm: Normal appearance Stomach: Normal appearance Abdomen: Normal appearance Abdominal Wall: Normal appearance Cord Vessels: Normal 3-Vessel Cord Kidneys: Normal appearance Bladder: Normal appearance Spine: Previously visualized Upper Extremities: Normal appearance Lower Extremities: Normal appearance EVALUATION (FETUS B): Num Of Fetuses: 2 Heart Rate(bpm): 117 Cardiac Activity: Regular rhythm Lie: Longitudinal Maternal LT Presentation: Cephalic Placenta: Posterior Membrane Desc: Dichorionic - diamniotic Membrane Size: Normal Amniotic Fluid ARIK FV: Within normal limits Largest Pocket(cm) 7.1 BIOPHYSICAL EVALUATION (FETUS B): Amniotic F.V: Within normal limits F. Tone: Observed F. Movement: Observed Score: 09/26 F. Breathing: Observed BIOMETRY (FETUS B): BPD: 84.5 mm G.Age: 34w 0d 48 % OFD: 117.3 mm HC: 325.9 mm G.Age: 37w 0d 85 % AC: 305.4 mm G.Age: 34w 3d 68 % FL: 69 mm G.Age: 35w 3d 77 % CI: 72.0 % 70 - 86 FL/HC: 21.2 % 19.4 - 21.8 HC/AC: 1.07 0.96 - 1.11 FL/BPD: 81.7 % 71 - 87 FL/AC: 22.6 % 20 - 24 Est. FW: 2557 gm 5 lb 10 oz 59 % FW Discordancy: 0 \ 0 % GESTATIONAL AGE (FETUS B): Clinical MARCELLE: 34w 0d MARCELLE: 03/13/22 U/S Today: 35w 2d MARCELLE: 03/04/22 Best: 34w 0d Det. By: Clinical MARCELLE MARCELLE: 03/13/22 ANATOMY (FETUS B): Cranium: Normal appearance Cavum: Normal appearance Ventricles: Normal appearance Choroid Plexus: Normal appearance Cerebellum: Normal appearance Posterior Fossa: Normal appearance Nuchal Fold: Normal appearance Face: Previously visualized Lips: Previously visualized Palate: Previously visualized Thoracic: Normal appearance Heart: Normal appearance (more content not included)... Normal [facility] Progress Noteon 01-29-2022 Progress Note SSE negative for ROM . Still 4cm on SVE. ASIYA GERMAN DO 01/29/2022 9:00 PM Normal [facility] Progress Note ------ -- Attestation signed by Willow Moscoso DO at 01/29/2022 3:37 PM (Updated) Hospital Care (Independent): I independently saw and evaluated the patient. I agree with the findings and plan of care as documented in the resident's note. Pt sleeping. Not woken as she reported yesterday that she did not have much sleep yesterday. heart rate tracing reassuring. Okay to decrease monitoring to 1 hour TID. Can increase to continuous movement if contractions return. Discontinue Procardia 48 hours after the first dose of BMZ. Hypertension at [facility], no severe features of preeclampsia at this time. Repeat preeclampsia labs if increasing BP or symptoms concerning for preeclampsia. Plan for growth US in am. I spent 15 minutes in the visit, with more than 50% of the total [id number] time of the visit in counseling/coordination of care. -- Maternal Medicine Service Resident Progress Note 01/29/2022 5:54 AM 01/28/2022 Hospital Day: 2 Juanita Paulino, 21 y.o. 33w6d Patient has been seen and examined. Pt has not complaints this morning. Denies any further contractions or cramping. Feels well, endorses good movement. No questions this morning. Positive movement Negative vaginal bleeding Negative LOF Negative Contractions Vitals: 01/28/22 2255 01/28/22 2300 01/28/22 2305 01/28/22 2345 BP: 111/56 BP Location: Left arm Patient Position: Pulse: 93 98 101 91 Resp: 18 Temp: 37.4 ?C (99.4 ?F) TempSrc: Temporal SpO2: 98% 98% 98% 94% Weight: Height: Cat I x2. Contractions irregular, >10min apart Physical Exam: Gen: NAD HEENT: Normocephalic, Atraumatic, EOMI, MMM Resp: chest rise equal and symmetric bilaterally Abd: soft, gravid, NTND, no rebound, no guarding. BS negative fundal tenderness Ext: No LE edema, no calf tenderness or swelling Medications: Current Facility-Administered Medications Medication Dose Route Frequency Provider Last Rate Last Admin acetaminophen (Tylenol) tablet 650 mg 650 mg Oral q6h PRN Bunny Ramirez, DO 650 mg at 01/28/22 1500 Or acetaminophen (Tylenol) suppository 650 mg 650 mg Rectal q6h PRN Bunny Ramirez, DO Chlorhexidine Gluconate Cloth 2 % cloth Topical q6h Bunny Ramirez, DO 1 each at 01/28/222040 docusate sodium (Colace) capsule 100 mg 100 mg Oral BID Bunny Ramirez, DO 100 mg at 01/28/222041 lactated ringers infusion 125 mL/hr IntraVENous Continuous Bunny Ramirez, DO 125 mL/hr at 01/28/222044 125 mL/hr at 01/28/222044 NIFEdipine (Procardia) capsule 10 mg 10 mg Oral 4 times per day Bunny Ramirez, DO 10 mg at 01/29/22212 ondansetron ODT (Zofran-ODT) disintegrating tablet 4 mg 4 mg Oral q8h PRN Bunny Ramirez, DO Or ondansetron (Zofran) injection 4 mg 4 mg IntraVENous q6h PRN Bunny Ramirez, DO vitamin tablet 1 tablet Oral Daily Bunny Ramirez, DO sertraline (Zoloft) tablet 50 mg 50 mg Oral Daily Bunny Ramirez, DO valACYclovir (Valtrex) tablet 500 mg 500 mg Oral BID Bunny Ramirez, DO 500 mg at 01/28/222041 Assessment/Plan: Juanita Paulino is a 21 y.o. female 33w6d Threatened Labor -Presented from [facility] as a transfer for concern of tPTL after reporting contractions -Made cervical parks at [facility] from Closed to 2cm, and was further noted to be 4cm while in [facility] triage -Given BMZ x2 on 01/28 ([facility]) and 01/29 ([facility]) -Continue Procarda for 48 hour tocolysis (01/30 at 1400) -PCN initially started for GBS prophylaxis but d/c overnight secondary to negative GBS test -Recommend delivery if patient makes change to 6cm, last exam at 1200 on 01/28 -NICU aware Nicolasa Twin Gestation -Most recent growth noted 01/10 Twin A: 1859 64%ile, B 1793g 52%ile -Cephalic/Breech on 01/28 on admission -Desires PCD for delivery PreEwoSF v gHTN -Mild range Bps noted >4 hours apart at [facility] and [facility] -No hx of HTN disorders previously -UPC at [facility] 0.4, however repeat at [facility] 0.24 -CMP and CBC wnl -Asymptomatic -BP overnight normotensive Anemia -Hgb on admission 10.4 -Iron and colace ordered HSV -Recent outbreak 1 week ago and on suppressive valtrex, reports compliance -SEE negative at [facility] and [facility] for lesions -Continue Valtrex 500g BID -Planning for PCD per patient preference ART -Letrazole Hx of PTD -G1 36w PPROM leading to -Compliant with vaginal progesterone this -Not currently continued while inpatient Depression -Continue home zoloft Anesthesia Complications -Pseudocholinesterase deficiency -Anesthesia notified on arrival IUP @ 33w6d -Cephalic/Breech on 01/28 - Monitoring:CEFM - Diet:NPO - BMZ x2 ob 01/28 and 01/29 Further plan pending d/w attending. Mami Mascorro DO 01/30/20 (more content not included)... Normal [facility] No Panel Informationon 01-28 Specimen Comment (Misc) Not Reportable [facility] Work Phone: Progress Noteon 01-28-2022 Progress Note Courtesy visit: Pt's OB hx reviewed. Stopped and saw pt. Pt looked comfortable on . D/w pt expected plan if she goes into labor. S/p BMZ x1. Lukas Mcneil DO. Normal [facility] Serum or plasma ferritin susie surement (mass/volume)on 01-28-2022 Ferritin [Mass/Vol] 7 ng/mL 8-252 [facility] Work Phone: Thin prep Papanicolaou smear with manual screeningon 01-28-2022 Thin prep Papanicolaou smear with manual screening Negative Negative [facility] Work Phone: [phone] Absolute lymphocyte counton 01-27-2022 Lymphocytes Auto (Unsp spec) [#/Vol] 1.35 10*3/uL 0.83-4.51 [facility] Work Phone: Basophil percentageon 2021 Basophils/100 WBC (Bld) 0.7 % 0-1 [facility] Work Phone: Bilirubin [Mass/Vol] 0.40 mg/dL 0.20-1.00 [facility] Work Phone: Comment on above: For patients on eltr ombopag therapy, use of Dimension [place] TBIL is not recommended. Chloride [Moles/Vol] 109 mmol/L 98-107 [facility] Work Phone: [phone] Eosinophils/100 WBC (Bld) 0.5 % 0-5 [facility] Work Phone: [phone] Glucose [Mass/Vol] 79 mg/dL 74-106 [facility] Work Phone: [phone] Neutrophils (Bld) [#/Vol] 2.6 10*3/uL 2.0-7.7 [facility] Work Phone: [phone] Neutrophils/100 WBC (Bld) 59.5 % 47-70 [facility] Work Phone: Potassium [Moles/Vol] 3.7 mmol/L 3.5-5.1 [facility] Work Phone: Protein [Mass/Vol] 6.3 g/dL 6.4-8.2 [facility] Work Phone: [phone] Sodium [Moles/Vol] 141 mmol/L 136-145 [facility] Work Phone: WBC (Bld) [#/Vol] 4.3 10*3/uL 4.4-11.0 [facility] Work Phone: Basophil percentage 0-5 SEEN /hpf 0-5 [facility] Work Phone: Bilirubin Test strip Ql (U)o n 01-27-2022 Bilirubin Ql (U) Negative Negative [facility] Work Phone: Blood erythrocytes count (nu mber/volume)on 01-27-2022 RBC (Bld) [#/Vol] 4.08 10*6/uL 4.2-5.4 [facility] Work Phone: Blood hemoglobin measurement (mass/volume)on 01-27-2022 Hemoglobin (Bld) [Mass/Vol] 9.8 g/dL 12.0-15.0 [facility] Work Phone: Blood lymphocytes/100 leukoc yteson 01-27-2022 Lymphocytes/100 WBC (Bld) 31.4 % 19-41 [facility] Work Phone: Blood monocytes/100 leukocyt eson 01-27-2022 Monocytes/100 WBC (Bld) 7.2 % 0-10 [facility] Work Phone: Blood platelet mean volumeon 01-27-2022 Platelet mean volume (Bld) [Entitic vol] 12.9 fL 6.2-12.0 [facility] Work Phone: Determination of erythrocyte mean corpuscular volume (MCV)on 01-27-2022 MCV (RBC) [Entitic vol] 77.0 fL 81-99 [facility] Work Phone: Hematocrit Auto (Bld) [Volum e fraction]on 01-27-2022 Hematocrit (Bld) [Volume fraction] 31.4 % 37-47 [facility] Work Phone: Ketones Test strip Ql (U)on 01-27-2022 Ketones Ql (U) 5 mg/dl Negative [facility] Work Phone: Laboratory - Chemistry and C hemistry - challengeon 01-27-2022 ALP [Catalytic activity/Vol] 155 U/L 45-117 [facility] Work Phone: ALT [Catalytic activity/Vol] 20 U/L 13-56 [facility] Work Phone: CO2 [Moles/Vol] 24.0 mmol/L 21.0-32.0 [facility] Work Phone: Globulin (S) [Mass/Vol] 4.1 g/dL 2.2-4.2 [facility] Work Phone: Urea nitrogen/Creatinine [Mass ratio] 9.5 mg/mg 10-20 [facility] Work Phone: Laboratory - Hematology and Cell countson 01-27-2022 Erythrocyte distribution width (RBC) [Entitic vol] 38.0 fL 35.1-43.9 [facility] Work Phone: Erythrocyte distribution width (RBC) [Ratio] 13.5 % 11.6-14.6 [facility] Work Phone: Immature granulocytes/100 WBC (Bld) 0.700 % 0.0-0.9 [facility] Work Phone: Comment on above: IG% - Immature Granu locytes (promyelocytes, myelocytes and metamyelocytes) > 1% indicates that a LEFT SHIFT is Present. MCH (RBC) [Entitic mass] 24.0 pg 27.0-32.0 [facility] Work Phone: Nucleated RBC/100 WBC (Bld) [Ratio] 0 % 0-5 [facility] Work Phone: MCHC Auto (RBC) [Mass/Vol]on 01-27-2022 MCHC (RBC) [Mass/Vol] 31.2 g/dL 32-36 [facility] Work Phone: Mucus LM Ql (Urine sed)on Mucus Ql (Urine sed) 0 SEEN /hpf [facility] Work Phone: Nitrite Test strip Ql (U)on 01-27-2022 Nitrite Ql (U) Negative Negative [facility] Work Phone: No Panel Informationon 01-27 Estimated Creatinine Clearance Calc 90.52 ml/min [facility] Work Phone: Estimated GFR (MDRD) Amer 94 mL/min >60 [facility] Work Phone: Comment on above: GFR Calc Estimated GFR (MDRD) Non-Af Amer 78 mL/min >60 [facility] Work Phone: Comment on above: Non- GFR Calc Platelets bldon 01-27-2022 Platelets (Bld) [#/Vol] 200 10*3/uL 150-450 [facility] Work Phone: Protein Test strip Ql (U)on 01-27-2022 Protein Ql (U) 100 mg/dl Negative [facility] Work Phone: Serum or plasma albumin benita urement (mass/volume)on 01-27-2022 Albumin [Mass/Vol] 2.2 g/dL 3.2-5.0 [facility] Work Phone: Serum or plasma albumin/glob ulin mass ratioon 01-27-2022 Albumin/Globulin [Mass ratio] 0.5 {ratio} 0.9-2.4 [facility] Work Phone: Serum or plasma calcium benita urement (mass/volume)on 01-27-2022 Calcium [Mass/Vol] 9.3 mg/dL 8.5-10.1 [facility] Work Phone: Serum or plasma creatinine m easurement (mass/volume)on 01-27-2022 Creatinine [Mass/Vol] 0.94 mg/dL 0.55-1.02 [facility] Work Phone: Comment on above: The validity of the calculated GFR & GFRAA in patients over 70 years has not been determined. Clinical correlation is essential. Serum or plasma urea nitroge n measurement (mass/volume)on 01-27-2022 Urea nitrogen [Mass/Vol] 9 mg/dL 7-18 [facility] Work Phone: Squamous epithelial cells de tection in urine sediment by light microscopyon 01-27-2022 Epithelial cells.squamous LM Ql (Urine sed) 5-10 SEEN /hpf 5-10 [facility] Work Phone: Thin prep Papanicolaou smear with manual screeningon 01-27-2022 Thin prep Papanicolaou smear with manual screening 28 U/L 15-37 [facility] Work Phone: Thin prep Papanicolaou smear with manual screening 8 5-15 [facility] Work Phone: Thin prep Papanicolaou smear with manual screening 155 U/L 84-246 [facility] Work Phone: Urine blood detectionon RBC Ql (U) 10 /ul Negative [facility] Work Phone: RBC Ql (U) 0-5 SEEN /hpf 0-5 [facility] Work Phone: Urine clarityon 01-27-2022 Clarity (U) Clear Clear [facility] Work Phone: Urine color determinationon 01-27-2022 Color (U) Yellow Yellow [facility] Work Phone: Urine creatinine measurement (mass/volume)on 01-27-2022 Creatinine (U) [Mass/Vol] 332.00 mg/dL NO RANGE EST. [facility] Work Phone: Urine glucose detectionon Glucose Ql (U) Normal mg/dl Normal [facility] Work Phone: Urine leukocyte esterase det ection by dipstickon 01-27-2022 Leukocyte esterase Test strip Ql (U) 500 /ul Negative [facility] Work Phone: Urine pHon 01-27-2022 pH (U) 6.0 [pH] 5.0 - 8.0 [facility] Work Phone: Urine protein measurement (m ass/volume)on 01-27-2022 Protein (U) [Mass/Vol] 140.6 mg/dL 0.0-11.8 [facility] Work Phone: Urine protein/creatinine mas s ratioon 01-27-2022 Protein/Creatinine (U) [Mass ratio] 423 mg/g CRE 0-200 [facility] Work Phone: Urine sediment bacteria coun t by microscopy (number/high power field)on 01-27-2022 Bacteria LM.HPF (Urine sed) [#/Area] 0 /[HPF] None Seen [facility] Work Phone: Urine specific gravity measu rementon 01-27-2022 Specific gravity (U) [Rel density] 1.020 1.002-1.030 [facility] Work Phone: Urobilinogen Auto test strip Ql (U)on 01-27-2022 Urobilinogen Ql (U) 1 mg/dl Normal [facility] Work Phone: Absolute lymphocyte counton 01-24-2022 Lymphocytes Auto (Unsp spec) [#/Vol] 1.07 10*3/uL 0.83-4.51 [facility] Work Phone: Basophil percentageon 2021 Basophils/100 WBC (Bld) 0.5 % 0-1 [facility] Work Phone: Bilirubin [Mass/Vol] 0.50 mg/dL 0.20-1.00 [facility] Work Phone: Comment on above: For patients on eltr ombopag therapy, use of Dimension [place] TBIL is not recommended. Chloride [Moles/Vol] 107 mmol/L 98-107 [facility] Work Phone: Eosinophils/100 WBC (Bld) 0.5 % 0-5 [facility] Work Phone: Glucose [Mass/Vol] 84 mg/dL 74-106 [facility] Work Phone: Neutrophils (Bld) [#/Vol] 2.6 10*3/uL 2.0-7.7 [facility] Work Phone: Neutrophils/100 WBC (Bld) 65.3 % 47-70 [facility] Work Phone: Potassium [Moles/Vol] 3.8 mmol/L 3.5-5.1 [facility] Work Phone: Protein [Mass/Vol] 6.6 g/dL 6.4-8.2 [place] [facility] Work Phone: Sodium [Moles/Vol] 140 mmol/L 136-145 [place] [facility] Work Phone: WBC (Bld) [#/Vol] 4.0 10*3/uL 4.4-11.0 [place] [facility] Work Phone: Blood erythrocytes count (nu mber/volume)on 01-24-2022 RBC (Bld) [#/Vol] 4.31 10*6/uL 4.2-5.4 [place] [facility] Work Phone: Blood hemoglobin measurement (mass/volume)on 01-24-2022 Hemoglobin (Bld) [Mass/Vol] 10.5 g/dL 12.0-15.0 [facility] Work Phone: Blood lymphocytes/100 leukoc yteson 01-24-2022 Lymphocytes/100 WBC (Bld) 26.6 % 19-41 [facility] Work Phone: Blood monocytes/100 leukocyt eson 01-24-2022 Monocytes/100 WBC (Bld) 6.9 % 0-10 [facility] Work Phone: Blood platelet mean volumeon 01-24-2022 Platelet mean volume (Bld) [Entitic vol] 11.4 fL 6.2-12.0 [facility] Work Phone: Determination of erythrocyte mean corpuscular volume (MCV)on 01-24-2022 MCV (RBC) [Entitic vol] 77.0 fL 81-99 [facility] Work Phone: Hematocrit Auto (Bld) [Volum e fraction]on 01-24-2022 Hematocrit (Bld) [Volume fraction] 33.2 % 37-47 [facility] Work Phone: Laboratory - Chemistry and C hemistry - challengeon 01-24-2022 ALP [Catalytic activity/Vol] 155 U/L 45-117 [facility] Work Phone: ALT [Catalytic activity/Vol] 17 U/L 13-56 [facility] Work Phone: CO2 [Moles/Vol] 24.0 mmol/L 21.0-32.0 [facility] Work Phone: Globulin (S) [Mass/Vol] 4.4 g/dL 2.2-4.2 [facility] Work Phone: Urea nitrogen/Creatinine [Mass ratio] 8.9 mg/mg 10-20 [facility] Work Phone: Laboratory - Hematology and Cell countson 01-24-2022 Erythrocyte distribution width (RBC) [Entitic vol] 38.4 fL 35.1-43.9 [facility] Work Phone: Erythrocyte distribution width (RBC) [Ratio] 13.7 % 11.6-14.6 [facility] Work Phone: Immature granulocytes/100 WBC (Bld) 0.200 % 0.0-0.9 [facility] Work Phone: Comment on above: IG% - Immature Granu locytes (promyelocytes, myelocytes and metamyelocytes) > 1% indicates that a LEFT SHIFT is Present. MCH (RBC) [Entitic mass] 24.4 pg 27.0-32.0 [facility] Work Phone: Nucleated RBC/100 WBC (Bld) [Ratio] 0 % 0-5 [facility] Work Phone: MCHC Auto (RBC) [Mass/Vol]on 01-24-2022 MCHC (RBC) [Mass/Vol] 31.6 g/dL 32-36 [facility] Work Phone: No Panel Informationon 01-24 Estimated GFR (MDRD) Amer 116 mL/min >60 [facility] Work Phone: Comment on above: GFR Calc Estimated GFR (MDRD) Non-Af Amer 96 mL/min >60 [facility] Work Phone: Comment on above: Non- GFR Calc Platelets bldon 01-24-2022 Platelets (Bld) [#/Vol] 191 10*3/uL 150-450 [facility] Work Phone: Serum or plasma albumin benita urement (mass/volume)on 01-24-2022 Albumin [Mass/Vol] 2.2 g/dL 3.2-5.0 [facility] Work Phone: Serum or plasma albumin/glob ulin mass ratioon 01-24-2022 Albumin/Globulin [Mass ratio] 0.5 {ratio} 0.9-2.4 [facility] Work Phone: Serum or plasma calcium benita urement (mass/volume)on 01-24-2022 Calcium [Mass/Vol] 8.8 mg/dL 8.5-10.1 [facility] Work Phone: Serum or plasma creatinine m easurement (mass/volume)on 01-24-2022 Creatinine [Mass/Vol] 0.79 mg/dL 0.55-1.02 [facility] Work Phone: Comment on above: The validity of the calculated GFR & GFRAA in patients over 70 years has not been determined. Clinical correlation is essential. Serum or plasma urea nitroge n measurement (mass/volume)on 01-24-2022 Urea nitrogen [Mass/Vol] 7 mg/dL 7-18 [facility] Work Phone: Thin prep Papanicolaou smear with manual screeningon 01-24-2022 Thin prep Papanicolaou smear with manual screening 25 U/L 15-37 [facility] Work Phone: Thin prep Papanicolaou smear with manual screening 9 5-15 [facility] Work Phone: Thin prep Papanicolaou smear with manual screening 180 U/L 84-246 [facility] Work Phone: Urine creatinine measurement (mass/volume)on 01-24-2022 Creatinine (U) [Mass/Vol] 381.00 mg/dL NO RANGE EST. [facility] Work Phone: Urine protein measurement (m ass/volume)on 01-24-2022 Protein (U) [Mass/Vol] 101.7 mg/dL 0.0-11.8 [facility] Work Phone: Urine protein/creatinine mas s ratioon 01-24-2022 Protein/Creatinine (U) [Mass ratio] 267 mg/g CRE 0-200 [facility] Work Phone: Absolute lymphocyte counton 01-17-2022 Lymphocytes Auto (Unsp spec) [#/Vol] 1.11 10*3/uL 0.83-4.51 [facility] Work Phone: [phone] Basophil percentageon 2021 Basophils/100 WBC (Bld) 0.4 % 0-1 [facility] Work Phone: Bilirubin [Mass/Vol] 0.60 mg/dL 0.20-1.00 [facility] Work Phone: Comment on above: For patients on eltr ombopag therapy, use of Dimension [place] TBIL is not recommended. Chloride [Moles/Vol] 103 mmol/L 98-107 [facility] Work Phone: [phone] Eosinophils/100 WBC (Bld) 0.4 % 0-5 [facility] Work Phone: Glucose [Mass/Vol] 83 mg/dL 74-106 [facility] Work Phone: [phone] Neutrophils (Bld) [#/Vol] 3.1 10*3/uL 2.0-7.7 [facility] Work Phone: Neutrophils/100 WBC (Bld) 67.7 % 47-70 [facility] Work Phone: Potassium [Moles/Vol] 3.7 mmol/L 3.5-5.1 [facility] Work Phone: Protein [Mass/Vol] 6.6 g/dL 6.4-8.2 [facility] Work Phone: [phone] Sodium [Moles/Vol] 137 mmol/L 136-145 [facility] Work Phone: WBC (Bld) [#/Vol] 4.6 10*3/uL 4.4-11.0 [facility] Work Phone: Blood erythrocytes count (nu mber/volume)on 01-17-2022 RBC (Bld) [#/Vol] 4.29 10*6/uL 4.2-5.4 [facility] Work Phone: Blood hemoglobin measurement (mass/volume)on 01-17-2022 Hemoglobin (Bld) [Mass/Vol] 10.7 g/dL 12.0-15.0 [facility] Work Phone: Blood lymphocytes/100 leukoc yteson 01-17-2022 Lymphocytes/100 WBC (Bld) 24.3 % 19-41 [facility] Work Phone: Blood monocytes/100 leukocyt eson 01-17-2022 Monocytes/100 WBC (Bld) 6.8 % 0-10 [facility] Work Phone: Blood platelet mean volumeon 01-17-2022 Platelet mean volume (Bld) [Entitic vol] 11.4 fL 6.2-12.0 [facility] Work Phone: Determination of erythrocyte mean corpuscular volume (MCV)on 01-17-2022 MCV (RBC) [Entitic vol] 77.6 fL 81-99 [facility] Work Phone: Hematocrit Auto (Bld) [Volum e fraction]on 01-17-2022 Hematocrit (Bld) [Volume fraction] 33.3 % 37-47 [facility] Work Phone: Laboratory - Chemistry and C hemistry - challengeon 01-17-2022 ALP [Catalytic activity/Vol] 138 U/L 45-117 [facility] Work Phone: [phone] ALT [Catalytic activity/Vol] 13 U/L 13-56 [facility] Work Phone: CO2 [Moles/Vol] 24.0 mmol/L 21.0-32.0 [facility] Work Phone: Globulin (S) [Mass/Vol] 4.4 g/dL 2.2-4.2 [facility] Work Phone: Urea nitrogen/Creatinine [Mass ratio] 8.2 mg/mg 10-20 [facility] Work Phone: Laboratory - Hematology and Cell countson 01-17-2022 Erythrocyte distribution width (RBC) [Entitic vol] 39.5 fL 35.1-43.9 [facility] Work Phone: Erythrocyte distribution width (RBC) [Ratio] 14.2 % 11.6-14.6 [facility] Work Phone: Immature granulocytes/100 WBC (Bld) 0.400 % 0.0-0.9 [facility] Work Phone: Comment on above: IG% - Immature Granu locytes (promyelocytes, myelocytes and metamyelocytes) > 1% indicates that a LEFT SHIFT is Present. MCH (RBC) [Entitic mass] 24.9 pg 27.0-32.0 [facility] Work Phone: Nucleated RBC/100 WBC (Bld) [Ratio] 0 % 0-5 [facility] Work Phone: MCHC Auto (RBC) [Mass/Vol]on 01-17-2022 MCHC (RBC) [Mass/Vol] 32.1 g/dL 32-36 [facility] Work Phone: No Panel Informationon 01-17 Estimated Creatinine Clearance Calc 114.98 ml/min [facility] Work Phone: Estimated GFR (MDRD) Amer 126 mL/min >60 [facility] Work Phone: Comment on above: GFR Calc Estimated GFR (MDRD) Non-Af Amer 104 mL/min >60 [facility] Work Phone: Comment on above: Non- GFR Calc Platelets bldon 01-17-2022 Platelets (Bld) [#/Vol] 207 10*3/uL 150-450 [facility] Work Phone: Serum or plasma albumin benita urement (mass/volume)on 01-17-2022 Albumin [Mass/Vol] 2.2 g/dL 3.2-5.0 [facility] Work Phone: Serum or plasma albumin/glob ulin mass ratioon 01-17-2022 Albumin/Globulin [Mass ratio] 0.5 {ratio} 0.9-2.4 [facility] Work Phone: Serum or plasma calcium benita urement (mass/volume)on 01-17-2022 Calcium [Mass/Vol] 8.5 mg/dL 8.5-10.1 [facility] Work Phone: Serum or plasma creatinine m easurement (mass/volume)on 01-17-2022 Creatinine [Mass/Vol] 0.74 mg/dL 0.55-1.02 [facility] Work Phone: Comment on above: The validity of the calculated GFR & GFRAA in patients over 70 years has not been determined. Clinical correlation is essential. Serum or plasma urea nitroge n measurement (mass/volume)on 01-17-2022 Urea nitrogen [Mass/Vol] 6 mg/dL 7-18 [facility] Work Phone: Thin prep Papanicolaou smear with manual screeningon 01-17-2022 Thin prep Papanicolaou smear with manual screening 20 U/L 15-37 [facility] Work Phone: Thin prep Papanicolaou smear with manual screening 10 5-15 [facility] Work Phone: Thin prep Papanicolaou smear with manual screening 170 U/L 84-246 [facility] Work Phone: Urine creatinine measurement (mass/volume)on 01-17-2022 Creatinine (U) [Mass/Vol] 284.00 mg/dL NO RANGE EST. [facility] Work Phone: Urine protein measurement (m ass/volume)on 01-17-2022 Protein (U) [Mass/Vol] 67.9 mg/dL 0.0-11.8 [facility] Work Phone: Urine protein/creatinine mas s ratioon 01-17-2022 Protein/Creatinine (U) [Mass ratio] 239 mg/g CRE 0-200 [facility] Work Phone: Quantitative serum or plasma 3 hour gestational glucose tolerance panelon 12-02-2021 Glucose tolerance 3 hours gestational panel See comment [facility] Work Phone: Comment on above: FASTING 93 Col: 11/19 06/10 0904GLUCOSE TOLERANCE TEST FOR Reference Interval GESTATIONAL DIABETES Fasting <105 mg/dL 1 hour <190 mg/dl 2 hour <165 mg/dl 3 hour <145 mg/dl 1 HR GLU 144 Col: 12/02/21 1004 2 HR GLU 106 Col: 12/02/21 1104 3 HR GLU 85 Col: 12/02/21 1204 Absolute lymphocyte counton 11-28-2021 Lymphocytes Auto (Unsp spec) [#/Vol] 1.13 10*3/uL 0.83-4.51 [facility] Work Phone: Basophil percentageon 2021 Basophils/100 WBC (Bld) 0.2 % 0-1 [facility] Work Phone: Eosinophils/100 WBC (Bld) 0.9 % 0-5 [facility] Work Phone: Neutrophils (Bld) [#/Vol] 4.2 10*3/uL 2.0-7.7 [facility] Work Phone: Neutrophils/100 WBC (Bld) 72.7 % 47-70 [facility] Work Phone: WBC (Bld) [#/Vol] 5.7 10*3/uL 4.4-11.0 [facility] Work Phone: [phone] Blood erythrocytes count (nu mber/volume)on 11-28-2021 RBC (Bld) [#/Vol] 4.16 10*6/uL 4.2-5.4 [facility] Work Phone: Blood hemoglobin measurement (mass/volume)on 11-28-2021 Hemoglobin (Bld) [Mass/Vol] 10.6 g/dL 12.0-15.0 [facility] Work Phone: Blood lymphocytes/100 leukoc yteson 11-28-2021 Lymphocytes/100 WBC (Bld) 19.7 % 19-41 [facility] Work Phone: Blood monocytes/100 leukocyt eson 11-28-2021 Monocytes/100 WBC (Bld) 6.3 % 0-10 [facility] Work Phone: Blood platelet mean volumeon 11-28-2021 Platelet mean volume (Bld) [Entitic vol] 12.0 fL 6.2-12.0 [facility] Work Phone: Determination of erythrocyte mean corpuscular volume (MCV)on 11-28-2021 MCV (RBC) [Entitic vol] 80.8 fL 81-99 [facility] Work Phone: Gestational diabetes screen 1-hour screen with 50g oral glucose loadon 11-28-2021 Glucose 1 Hr post 50 g glucose PO [Mass/Vol] 140 mg/dL 70-140 [facility] Work Phone: Hematocrit Auto (Bld) [Volum e fraction]on 11-28-2021 Hematocrit (Bld) [Volume fraction] 33.6 % 37-47 [facility] Work Phone: Laboratory - Hematology and Cell countson 11-28-2021 Erythrocyte distribution width (RBC) [Entitic vol] 41.0 fL 35.1-43.9 [facility] Work Phone: Erythrocyte distribution width (RBC) [Ratio] 14.1 % 11.6-14.6 [facility] Work Phone: Immature granulocytes/100 WBC (Bld) 0.200 % 0.0-0.9 [facility] Work Phone: Comment on above: IG% - Immature Granu locytes (promyelocytes, myelocytes and metamyelocytes) > 1% indicates that a LEFT SHIFT is Present. MCH (RBC) [Entitic mass] 25.5 pg 27.0-32.0 [facility] Work Phone: Nucleated RBC/100 WBC (Bld) [Ratio] 0 % 0-5 [facility] Work Phone: MCHC Auto (RBC) [Mass/Vol]on 11-28-2021 MCHC (RBC) [Mass/Vol] 31.5 g/dL 32-36 [facility] Work Phone: Platelets bldon 11-28-2021 Platelets (Bld) [#/Vol] 214 10*3/uL 150-450 [facility] Work Phone: Bilirubin Test strip Ql (U)o n 11-26-2021 Bilirubin Ql (U) Negative Negative [facility] Work Phone: Ketones Test strip Ql (U)on 11-26-2021 Ketones Ql (U) 150 mg/dl Negative [facility] Work Phone: Comment on above: CRITICAL VALUE VERIF IED. CALLED TO KALI BATRES RN (WP)11/26/21 1836 Gagandeep Alcantar.RESULTS READ BACK BY SAME . CRITICAL VALUE *H Nitrite Test strip Ql (U)on 11-26-2021 Nitrite Ql (U) Negative Negative [facility] Work Phone: Protein Test strip Ql (U)on 11-26-2021 Protein Ql (U) 15 mg/dl Negative [facility] Work Phone: Urine blood detectionon RBC Ql (U) 50 /ul Negative [facility] Work Phone: Urine clarityon 11-26-2021 Clarity (U) Cloudy Clear [facility] Work Phone: Urine color determinationon 11-26-2021 Color (U) Yellow Yellow [facility] Work Phone: Urine glucose detectionon Glucose Ql (U) Normal mg/dl Normal [facility] Work Phone: Urine leukocyte esterase det ection by dipstickon 11-26-2021 Leukocyte esterase Test strip Ql (U) 500 /ul Negative [facility] Work Phone: Urine pHon 11-26-2021 pH (U) 6.5 [pH] 5.0 - 8.0 [facility] Work Phone: Urine specific gravity measu rementon 11-26-2021 Specific gravity (U) [Rel density] 1.015 1.002-1.030 [facility] Work Phone: [phone] Urobilinogen Auto test strip Ql (U)on 11-26-2021 Urobilinogen Ql (U) 1 mg/dl Normal [facility] Work Phone: Gestational diabetes screen 1-hour screen with 50g oral glucose loadon 09-13-2021 Glucose 1 Hr post 50 g glucose PO [Mass/Vol] 102 mg/dL 70-140 [facility] Work Phone: Absolute lymphocyte counton 08-23-2021 Lymphocytes Auto (Unsp spec) [#/Vol] 1.47 10*3/uL 0.83-4.51 [facility] Work Phone: Basophil percentageon 2021 Basophils/100 WBC (Bld) 0.2 % 0-1 [facility] Work Phone: [phone] Eosinophils/100 WBC (Bld) 0.9 % 0-5 [facility] Work Phone: Neutrophils (Bld) [#/Vol] 4.4 10*3/uL 2.0-7.7 [facility] Work Phone: [phone] Neutrophils/100 WBC (Bld) 69.4 % 47-70 [facility] Work Phone: [phone] WBC (Bld) [#/Vol] 6.3 10*3/uL 4.4-11.0 [facility] Work Phone: Blood erythrocytes count (nu mber/volume)on 08-23-2021 RBC (Bld) [#/Vol] 4.81 10*6/uL 4.2-5.4 [facility] Work Phone: Blood hemoglobin measurement (mass/volume)on 08-23-2021 Hemoglobin (Bld) [Mass/Vol] 12.7 g/dL 12.0-15.0 [facility] Work Phone: Blood lymphocytes/100 leukoc yteson 08-23-2021 Lymphocytes/100 WBC (Bld) 23.2 % 19-41 [facility] Work Phone: Blood monocytes/100 leukocyt eson 08-23-2021 Monocytes/100 WBC (Bld) 5.8 % 0-10 [facility] Work Phone: Blood platelet mean volumeon 08-23-2021 Platelet mean volume (Bld) [Entitic vol] 12.5 fL 6.2-12.0 [facility] Work Phone: Chlamydia trachomatis rRNA d etection by probe and target amplification methodon 08-23-2021 C. trachomatis rRNA LIANA+probe Ql (Unsp spec) Negative Negative [facility] Work Phone: Determination of erythrocyte mean corpuscular volume (MCV)on 08-23-2021 MCV (RBC) [Entitic vol] 81.5 fL 81-99 [facility] Work Phone: HIV 1 and HIV-2 antibody ass ay with HIV-1 p24 antigen detectionon 08-23-2021 HIV 1+2 Ab+HIV1 p24 Ag IA Ql Non-Reactive Nonreactive [facility] Work Phone: Hematocrit Auto (Bld) [Volum e fraction]on 08-23-2021 Hematocrit (Bld) [Volume fraction] 39.2 % 37-47 [facility] Work Phone: Laboratory - Hematology and Cell countson 08-23-2021 Erythrocyte distribution width (RBC) [Entitic vol] 39.9 fL 35.1-43.9 [facility] Work Phone: Erythrocyte distribution width (RBC) [Ratio] 13.7 % 11.6-14.6 [facility] Work Phone: Immature granulocytes/100 WBC (Bld) 0.500 % 0.0-0.9 [facility] Work Phone: Comment on above: IG% - Immature Granu locytes (promyelocytes, myelocytes and metamyelocytes) > 1% indicates that a LEFT SHIFT is Present. MCH (RBC) [Entitic mass] 26.4 pg 27.0-32.0 [facility] Work Phone: Nucleated RBC/100 WBC (Bld) [Ratio] 0 % 0-5 [facility] Work Phone: Laboratory - Microbiology an d Antimicrobial susceptibilityon 08-23-2021 N. gonorrhoeae DNA LIANA+probe Ql (Unsp spec) Negative Negative [facility] Work Phone: Comment on above: Performed at: = - [address] [id number] Director: Theresa Gomez MD, Phone: [phone] MCHC Auto (RBC) [Mass/Vol]on 08-23-2021 MCHC (RBC) [Mass/Vol] 32.4 g/dL 32-36 [facility] Work Phone: No Panel Informationon 08-23 Hepatitis B Surface Antigen Non-Reactive Nonreactive [facility] Work Phone: Hepatitis C Antibody Non-Reactive Nonreactive [facility] Work Phone: Comment on above: Non Reactive: < 0.8 Equivocal: >/= 0.8 to < 1.0 Reactive: >/= 1.0The CDC recommends that a reactive/equivocal HCV antibody result be followed up by the HCV Nucleic Acid Amplificationtest (837572) Miscellaneous Test See comment [facility] Work Phone: Comment on above: Sent directly to [facility] per ordering physician. Rubella IgG Antibody Reactive Nonreactive [facility] Work Phone: Comment on above: Antibody Results Int erpretation of Immune Status Non Reactive Presumed Non-Immune Equivocal Equivocal Reactive Presumed Immune Platelets bldon 08-23-2021 Platelets (Bld) [#/Vol] 247 10*3/uL 150-450 [facility] Work Phone: Serum Treponema species anti body detectionon 08-23-2021 Treponema sp Ab Ql (S) Non-Reactive [facility] Work Phone: Serum or plasma choriogonado tropin detectionon 07-02-2021 HCG ( test) Ql 79 mIU/mL <4 [facility] Work Phone: Comment on above: hCG levels with Gest ational AgeGestational Age hCG mIU/mL (IU/L)0.2 - 1 week 5 - 501-2 weeks 50 - 5002-3 weeks 100 - 92416-0 weeks 500 - 469212-6 weeks 1000 - 572588-7 weeks 77775 - 100,0006-8 weeks 16076 - 200,0002-3 months 57080 - 100,000 Serum or plasma choriogonado tropin detectionon 06-30-2021 HCG ( test) Ql 33 mIU/mL <4 [facility] Work Phone: Comment on above: hCG levels with Gest ational AgeGestational Age hCG mIU/mL (IU/L)0.2 - 1 week 5 - 501-2 weeks 50 - 5002-3 weeks 100 - 20520-4 weeks 500 - 126251-3 weeks 1000 - 449999-0 weeks 48644 - 100,0006-8 weeks 29830 - 200,0002-3 months 36804 - 100,000 Serum or plasma progesterone measurement (mass/volume)on 06-28-2021 Progesterone [Mass/Vol] 17.58 ng/mL See Comment [facility] Work Phone: Comment on above: Progesterone Referen ce Table: UNITS Female: Follicular 0.15 - 1.40 ng/mL Luteal 3.34 - 25.56 ng/mL Mid-luteal 4.44 - 28.03 ng/mL Postmenopausal 0.0 - 0.73 ng/mL : 1st Trimester 11.22 - 90.00 ng/mL 2nd Trimester 25.55 - 89.40 ng/mL 3rd Trimester 48.40 -422.50 ng/mL Serum or plasma progesterone measurement (mass/volume)on 05-30-2021 Progesterone [Mass/Vol] 11.73 ng/mL See Comment [facility] Work Phone: Comment on above: Progesterone Referen ce Table: UNITS Female: Follicular 0.15 - 1.40 ng/mL Luteal 3.34 - 25.56 ng/mL Mid-luteal 4.44 - 28.03 ng/mL Postmenopausal 0.0 - 0.73 ng/mL : 1st Trimester 11.22 - 90.00 ng/mL 2nd Trimester 25.55 - 89.40 ng/mL 3rd Trimester 48.40 -422.50 ng/mL Absolute lymphocyte counton 02-22-2021 Lymphocytes Auto (Unsp spec) [#/Vol] 1.70 10*3/uL 0.83-4.51 [facility] Work Phone: Basophil percentageon 2021 Basophils/100 WBC (Bld) 0.6 % 0-1 [facility] Work Phone: Chloride [Moles/Vol] 101 mmol/L 98-107 [facility] [facility] Work Phone: Eosinophils/100 WBC (Bld) 2.4 % 0-5 [facility] Work Phone: Glucose [Mass/Vol] 95 mg/dL 74-106 [facility] Work Phone: Comment on above: Please note revised GLUCOSE reference range effective 2017. Neutrophils (Bld) [#/Vol] 4.3 10*3/uL 2.0-7.7 [facility] Work Phone: Neutrophils/100 WBC (Bld) 65.0 % 47-70 [facility] Work Phone: Potassium [Moles/Vol] 3.8 mmol/L 3.5-5.1 [facility] Work Phone: Sodium [Moles/Vol] 140 mmol/L 136-145 [facility] Work Phone: WBC (Bld) [#/Vol] 6.6 10*3/uL 4.4-11.0 [facility] Work Phone: Blood erythrocytes count (nu mber/volume)on 02-22-2021 RBC (Bld) [#/Vol] 5.59 10*6/uL 4.2-5.4 [facility] Work Phone: Blood hemoglobin measurement (mass/volume)on 02-22-2021 Hemoglobin (Bld) [Mass/Vol] 13.9 g/dL 12.0-15.0 [facility] Work Phone: Blood lymphocytes/100 leukoc yteson 02-22-2021 Lymphocytes/100 WBC (Bld) 25.8 % 19-41 [facility] Work Phone: Blood monocytes/100 leukocyt eson 02-22-2021 Monocytes/100 WBC (Bld) 5.9 % 0-10 [facility] Work Phone: Blood platelet mean volumeon 02-22-2021 Platelet mean volume (Bld) [Entitic vol] 12.1 fL 6.2-12.0 [facility] Work Phone: Determination of erythrocyte mean corpuscular volume (MCV)on 02-22-2021 MCV (RBC) [Entitic vol] 79.8 fL 81-99 [facility] Work Phone: Hematocrit Auto (Bld) [Volum e fraction]on 02-22-2021 Hematocrit (Bld) [Volume fraction] 44.6 % 37-47 [facility] Work Phone: Laboratory - Chemistry and C hemistry - challengeon 02-22-2021 CO2 [Moles/Vol] 30.0 mmol/L 21.0-32.0 [facility] Work Phone: Urea nitrogen/Creatinine [Mass ratio] 14.3 mg/mg 10-20 [facility] Work Phone: Laboratory - Hematology and Cell countson 02-22-2021 Erythrocyte distribution width (RBC) [Entitic vol] 40.1 fL 35.1-43.9 [facility] Work Phone: Erythrocyte distribution width (RBC) [Ratio] 13.9 % 11.6-14.6 [facility] Work Phone: Immature granulocytes/100 WBC (Bld) 0.300 % 0.0-0.9 [facility] Work Phone: Comment on above: IG% - Immature Granu locytes (promyelocytes, myelocytes and metamyelocytes) > 1% indicates that a LEFT SHIFT is Present. MCH (RBC) [Entitic mass] 24.9 pg 27.0-32.0 [facility] Work Phone: Nucleated RBC/100 WBC (Bld) [Ratio] 0 % 0-5 [facility] Work Phone: Laboratory - Microbiology an d Antimicrobial susceptibilityon 02-22-2021 SARS-CoV-2 (COVID-19) RNA LIANA+probe Ql (Unsp spec) Not detected Not Detect [facility] Work Phone: Comment on above: Normal Reference Ran ge: Not DetectedMethod:(RT-PCR) real-time reverse transcriptase PCRLuminex KHALIDA Instrument*The Food and Drug Administration (FDA) has issued an Emergency Use Authorization (EAU) for the KHALIDA SARS-CoV-2 Assay for the rapid detection of the virus that causes COVID-19. This test has been validated, but the FDAs independent review of this validation is pending.*Negative results do not preclude infection and should not be used as the sole basis for treatment or patient management. Optimum specimen types and timing for peak viral levels during infections caused by SARS-CoV-2 have not been determined. Collection of multiple specimens from the same patient may be necessary to detect the virus. The possibility of a false negative result should be considered if the patient has clinical presentation or has had recent exposure. MCHC Auto (RBC) [Mass/Vol]on 02-22-2021 MCHC (RBC) [Mass/Vol] 31.2 g/dL 32-36 [facility] Work Phone: No Panel Informationon 02-22 D-Dimer Quantitative (PE/DVT) < 0.27 FEU/ug/m 0.27-0.49 [facility] Work Phone: Comment on above: NORMAL D-Dimer level (<0.50) indicates no DVT or PE. Estimated Creatinine Clearance Calc 111.44 ml/min [facility] Work Phone: Estimated GFR (MDRD) Amer 120 mL/min >60 [facility] Work Phone: Comment on above: GFR Calc Estimated GFR (MDRD) Non-Af Amer 100 mL/min >60 [facility] Work Phone: Comment on above: Non- GFR Calc Troponin I High Sensitivity 6 pg/mL 3.0-54.0 [facility] Work Phone: Comment on above: Please Note: New Dionne t Units and Gender Specific Reference Ranges. For more information see Policy Stat Procedure [place] High Sensitivity Troponin (TNIH) and attachments. Influenza Types A,B Direct FA (ARLYN) [facility] Work Phone: Platelets bldon 02-22-2021 Platelets (Bld) [#/Vol] 269 10*3/uL 150-450 [facility] Work Phone: Serum or plasma calcium benita urement (mass/volume)on 02-22-2021 Calcium [Mass/Vol] 9.8 mg/dL 8.5-10.1 [facility] Work Phone: Serum or plasma creatinine m easurement (mass/volume)on 02-22-2021 Creatinine [Mass/Vol] 0.77 mg/dL 0.55-1.02 [facility] Work Phone: Comment on above: The validity of the calculated GFR & GFRAA in patients over 70 years has not been determined. Clinical correlation is essential. Serum or plasma urea nitroge n measurement (mass/volume)on 02-22-2021 Urea nitrogen [Mass/Vol] 11 mg/dL 7-18 [facility] Work Phone: Thin prep Papanicolaou smear with manual screeningon 02-22-2021 Thin prep Papanicolaou smear with manual screening 9 5-15 [facility] Work Phone: Inpatient Clinical Summaryon 12-25-2018 Inpatient Clinical Summary [address] [address] Clinical Summary Person Information Name: Juanita Murillo Age: 18 Years : 2000 Sex: Female PCP: Sara Walters CNP Marital Status: Phone: PCP: [phone] Race: White Ethnicity: Not or Language: [place] Visit Id: Visit Reason: IUP Speciality: Acuity: PP Vag Enc Type: Inpatient Med Service: Gynecology-Obstetrics Arrival: 12/23/2018 06:51:16 Discharge: Dispo Type: Address: [address] [place] [id number] Diagnosis: ; Premature rupture of membranes Discharged To: Home Treatments: Devices/Equipment: Professional Skilled Services: Special Services and Community Resources: Mode of Discharge Transportation: Discharge Orders Allergies neomycin ophthalmic (Eye Redness) (Eye Swelling) Functional Status: Sensory Deficits: History of Falls: Mobility Assistance Prior to Admission: ADLs: Independent Gait: Steady Ambulation Assist: Assistive Device: Special Orthopedic Devices: Current Level of Assistance for Self-Care/Mobility: Cognitive Status: Orientation: Orientation Assessment Oriented x 4 Level of Consciousness: Alert Characteristics of Speech: Clear Aspiration Risk: None Affect/Behavior: Appropriate, Calm, Cooperative Laboratory or Other Results This Visit (last charted value for your 12/23/2018 visit) Hematology 12/24/2018 4:27 AM WBC: 9.1 x10 RBC: 3.79 x10 Neutro Auto: 73.4 % -- Normal range between ( 45.6 and 68.4 ) Lymph Auto: 18.3 % -- Normal range between ( 28.0 and 42.0 ) Reagan Auto: 7.8 % -- Normal range between ( 3.7 and 11.9 ) Eos Auto: 0.2 % -- Normal range between ( 0.0 and 5.4 ) Basophil Auto: 0.3 % -- Normal range between ( 0.0 and 1.5 ) Baso Absolute: 0.0 x10 MCV: 75.1 fL -- Normal range between ( 80.0 and 100.0 ) MCHC: 32.7 % -- Normal range between ( 31.0 and 37.0 ) Lymph Absolute: 1.7 x10 Hct: 28.5 % -- Normal range between ( 36.0 and 46.0 ) Reagan Absolute: 0.7 x10 MCH: 24.6 pg -- Normal range between ( 27.0 and 35.0 ) Neutro Absolute: 6.7 x10 Hgb: 9.3 g/dL -- Normal range between ( 12.0 and 16.0 ) Mean Platelet Volume: 10.8 fL -- Normal range between ( 6.7 and 10.6 ) Platelet: 180 x10 Eos Absolute: 0.0 x10 RDW: 15.5 % -- Normal range between ( 11.6 and 14.8 ) Urinalysis 12/23/2018 8:37 AM UA Spec Grav: 1.016 -- Normal range between ( 1.003 and 1.035 ) UA pH: 6.0 Chemistry 12/23/2018 8:37 AM Ur Creatinine Tox Scrn: 388.4 mg/dL Toxicology 12/23/2018 8:37 AM Ur Methadone Scrn w/Conf: Negative ng/mL Ur Amph Scrn w/Conf: Negative ng/mL Ur Shauna Scrn w/Conf: Negative ng/mL Ur Benzodia Scrn w/Conf: Negative ng/mL Ur Cannab Scrn w/Conf: Negative ng/mL Ur Cocaine Scrn w/Conf: Negative ng/mL Ur Opiate Scrn w/Conf: Negative ng/mL Ur PCP Scrn w/Conf: Negative ng/mL Ur Buprenorphine Scrn w/Conf: Negative ng/mL Ur Oxy Screen w/Conf: Negative ng/mL Measurements: Height: Weight: Blood Pressure: 136 mmHg / BMI: Respiratory: Respirations: Unlabored, Quiet Respiratory Symptoms: Cardiovascular: Heart Sounds: Heart Rhythm: Regular Gastrointestinal: GI Symptoms: Bowel Sounds: Present Vital Signs: Temp Axillary: Temp Temporal Artery: 37.0 degC Temp Oral: 36.5 degC Temp Rectal: Apical Heart Rate: Peripheral Pulse Rate: Heart Rate: 93 bpm Respiratory Rate: 18 br/min Diet Diet: Feeding Tolerance: Appetite: Good [place] Assessment: 23 Procedures No Procedures Documented Immunizations No Immunizations Documented This Visit New Medications [address] [place], [place] [id number], [phone] ibuprofen (ibuprofen 800 mg oral tablet) 800 Milligram Oral (given by mouth) every 8 hours. Refills: 0. Last Dose: No Longer Take the Following Medications acyclovir (acyclovir 200 mg oral capsule) 1 Capsules Oral (given by mouth) 5 times a day. Refills: 3. Stop Taking Reason: Physician Request buPROPion (buPROPion 300 mg/24 hours (XL) oral tablet, extended release) 1 Tabs Oral (given by mouth) every day. Refills: 0. Stop Taking Reason: Physician Request cetirizine (ZyrTEC 10 mg oral tablet) 1 Tabs Oral (given by mouth) every day. Refills: 0. Stop Taking Reason: Physician Request FLUoxetine (PROzac 20 mg oral capsule) 1 Capsules Oral (given by mouth) every day. Refills: 1. Stop Taking Reason: Physician Request metFORMIN (metFORMIN 500 mg oral tablet) 1 Tabs Oral (given by mouth) 2 times a day. Refills: 0. Stop Taking Reason: Physician Request montelukast (Singulair 10 mg oral tablet) 1 Tabs Oral (given by mouth) once a day (in the evening). Refills: 0. Stop Taking Reason: Physician Request norgestimate-ethinyl estradiol (Sprintec 0.25 mg-35 mcg oral tablet) TAKE ONE TABLET BY MOUTH DAILY. Refills: 2. Stop Taking Reason: Physician Request norgestimate-ethinyl estradiol (Sprintec 0.25 mg-35 mcg oral tablet) 1 Tabs Oral (given by mouth) every day. Refills: 1. Stop Taking Reason: Physician Request spironolactone (spironolactone 50 mg oral tablet) TAKE ONE TABLET BY MOUTH TWICE A DAY. Refills: 4. Stop Taking Reason: Physician Request Care Team Members: Attending Physician: Libertad Benjaimn DO Consulting Physician: Referring Physician: Follow up: With: Address: [facility]: [facility] [address] [place], [place] [phone] Comments: within 4-6 weeks Normal [facility] CBC w/ Diffon 12-24-2018 Erythrocyte distribution width (RBC) [Ratio] 15.5 % High 11.6-14.8 [facility] Comment on above: Performed By: #### C BC #### [address] [address] Hematocrit (Bld) [Volume fraction] 28.5 % Low 36.0-46.0 [facility] Comment on above: Performed By: #### C BC #### [address] [address] Hemoglobin (Bld) [Mass/Vol] 9.3 g/dL Low 12.0-16.0 [facility] Comment on above: Performed By: #### C BC #### [address] [address] MCH (RBC) [Entitic mass] 24.6 pg Low 27.0-35.0 [facility] Comment on above: Performed By: #### C BC #### [address] [address] MCHC (RBC) [Mass/Vol] 32.7 % Normal 31.0-37.0 [facility] Comment on above: Performed By: #### C BC #### [address] [address] MCV (RBC) [Entitic vol] 75.1 fL Low 80.0-100.0 [facility] Comment on above: Performed By: #### C BC #### [address] [address] Platelet mean volume (Bld) [Entitic vol] 10.8 fL High 6.7-10.6 [facility] Comment on above: Performed By: #### C BC #### [address] [address] Platelets (Bld) [#/Vol] 180 x10*3/mcL Normal 150-350 [facility] Comment on above: Performed By: #### C BC #### [address] [address] RBC (Bld) [#/Vol] 3.79 x10*6/mcL Low 3.80-5.20 [facility] Comment on above: Performed By: #### C BC #### [address] [address] WBC (Bld) [#/Vol] 9.1 x10*3/mcL Normal 4.5-11.0 [facility] Comment on above: Performed By: #### C BC #### [address] [address] Diff Autoon 12-24-2018 Baso Absolute 0.0 x10*3/mcL Normal 0.0-0.2 [facility] Comment on above: Performed By: #### . Automated Diff #### [address] [address] Basophils/100 WBC (Bld) 0.3 % Normal 0.0-1.5 [facility] Comment on above: Performed By: #### . Automated Diff #### [address] [address] Eos Absolute 0.0 x10*3/mcL Normal 0.0-0.4 [facility] Comment on above: Performed By: #### . Automated Diff #### [address] [address] Eosinophils/100 WBC (Bld) 0.2 % Normal 0.0-5.4 [facility] Comment on above: Performed By: #### . Automated Diff #### [address] [address] Lymphocytes (Bld) [#/Vol] 1.7 x10*3/mcL Normal 1.2-5.2 [facility] Comment on above: Performed By: #### . Automated Diff #### [address] [address] Lymphocytes/100 WBC (Bld) 18.3 % Low 28.0-42.0 [facility] Comment on above: Performed By: #### . Automated Diff #### [address] [address] Reagan Absolute 0.7 x10*3/mcL Normal 0.1-1.1 [facility] Comment on above: Performed By: #### . Automated Diff #### [address] [address] Monocytes/100 WBC (Bld) 7.8 % Normal 3.7-11.9 [facility] Comment on above: Performed By: #### . Automated Diff #### [address] [address] Neutro Absolute 6.7 x10*3/mcL Normal 1.8-8.0 [facility] Comment on above: Performed By: #### . Automated Diff #### [address] [address] Neutro Auto 73.4 % High 45.6-68.4 [facility] Comment on above: Performed By: #### . Automated Diff #### [address] [address] Obstetrics Progress Noteon 1 02-23-2018 Obstetrics Progress Note Patient: Juanita Murillo Age: 18 years Sex: Female : 2000 Associated Diagnoses: None Author: Nai Marcos CNM Progress Note S: Patient doing well s/p vaginal delivery. medications and comfort measures effective - pain controlled. Patient is tolerating a regular diet. She is ambulating and voiding without difficulty. is in SCN. O: Vital signs are stable. Patient is afebrile. Vital Signs (last 24 hrs) Last Charted Temp Oral 36.5 degC (DEC 24 06:30) Resp Rate 19 br/min (DEC 24 06:30) SBP 126 mmHg (DEC 24 06:30) DBP L 59mmHg (DEC 24 06:30) SpO2 93 % (DEC 23 16:00) CBC is stable. Labs (Last four charted values) WBC 9.1 (DEC 24) 6.8 (DEC 23) Hgb L 9.3 (DEC 24) L 10.7 (DEC 23) Hct L 28.5 (DEC 24) L 32.2 (DEC 23) Plt 180 (DEC 24) 196 (DEC 23) Breasts: soft/not engorged; Patient is pumping to promote . Abdomen: soft/non-tender/non-disten ded; Fundus is firm and below the umbilicus. Extremities: non-tender/mild edema A: Normal/stable course. P: Routine supportive care. Electronically signed by Priti Nai SAMANO [facility] 12/24/18 09:32 EST Normal [facility] CBC w/ Diffon 12-23-2018 Erythrocyte distribution width (RBC) [Ratio] 15.5 % High 11.6-14.8 [facility] Comment on above: Performed By: #### C BC #### [address] [address] Hematocrit (Bld) [Volume fraction] 32.2 % Low 36.0-46.0 [facility] Comment on above: Performed By: #### C BC #### [address] [address] Hemoglobin (Bld) [Mass/Vol] 10.7 g/dL Low 12.0-16.0 [facility] Comment on above: Performed By: #### C BC #### [address] [address] MCH (RBC) [Entitic mass] 24.3 pg Low 27.0-35.0 [facility] Comment on above: Performed By: #### C BC #### [address] [address] MCHC (RBC) [Mass/Vol] 33.1 % Normal 31.0-37.0 [facility] Comment on above: Performed By: #### C BC #### [address] [address] MCV (RBC) [Entitic vol] 73.5 fL Low 80.0-100.0 [facility] Comment on above: Performed By: #### C BC #### [address] [address] Platelet mean volume (Bld) [Entitic vol] 10.4 fL Normal 6.7-10.6 [facility] Comment on above: Performed By: #### C BC #### [address] [address] Platelets (Bld) [#/Vol] 196 x10*3/mcL Normal 150-350 [facility] Comment on above: Performed By: #### C BC #### [address] [address] RBC (Bld) [#/Vol] 4.38 x10*6/mcL Normal 3.80-5.20 [facility] Comment on above: Performed By: #### C BC #### [address] [address] WBC (Bld) [#/Vol] 6.8 x10*3/mcL Normal 4.5-11.0 [facility] Comment on above: Performed By: #### C BC #### [address] [address] Diff Autoon 12-23-2018 Baso Absolute 0.0 x10*3/mcL Normal 0.0-0.2 [facility] Comment on above: Performed By: #### . Automated Diff #### [address] [address] Basophils/100 WBC (Bld) 0.4 % Normal 0.0-1.5 [facility] Comment on above: Performed By: #### . Automated Diff #### [address] [address] Eos Absolute 0.1 x10*3/mcL Normal 0.0-0.4 [facility] Comment on above: Performed By: #### . Automated Diff #### [address] [address] Eosinophils/100 WBC (Bld) 1.4 % Normal 0.0-5.4 [facility] Comment on above: Performed By: #### . Automated Diff #### [address] [address] Lymphocytes (Bld) [#/Vol] 1.4 x10*3/mcL Normal 1.2-5.2 [facility] Comment on above: Performed By: #### . Automated Diff #### [address] [address] Lymphocytes/100 WBC (Bld) 20.1 % Low 28.0-42.0 [facility] Comment on above: Performed By: #### . Automated Diff #### [address] [address] Reagan Absolute 0.5 x10*3/mcL Normal 0.1-1.1 [facility] Comment on above: Performed By: #### . Automated Diff #### [address] [address] Monocytes/100 WBC (Bld) 7.4 % Normal 3.7-11.9 [facility] Comment on above: Performed By: #### . Automated Diff #### [address] [address] Neutro Absolute 4.8 x10*3/mcL Normal 1.8-8.0 [facility] Comment on above: Performed By: #### . Automated Diff #### [address] [address] Neutro Auto 70.7 % High 45.6-68.4 [facility] Comment on above: Performed By: #### . Automated Diff #### [address] [address] History and Physicalon 12-23 History and Physical Patient: Alysha Murillo Age: 18 years Sex: Female : 2000 Associated Diagnoses: ; Premature rupture of membranes Author: Libertad Benjamin DO Basic Information Reason for admission: SROM. Informed consent obtained for anesthesia and procedure. History of Present Illness Patient is Para Information: : 1 Para Term: 0 Para : 0 Para Abortions: 0 Para Livin. Review of Systems Constitutional: Negative. Eye: Negative. Ear/Nose/Mouth/Throat: Negative. Respiratory: Negative. Cardiovascular: Negative. Breast: Negative. Gastrointestinal: Negative. Genitourinary: Negative. Gynecologic: Negative. Hematology/Lymphatics: Negative. Endocrine/Renal: Negative. Immunologic: Negative. Musculoskeletal: Negative. Integumentary: Negative. Neurologic: Negative. Psychiatric: Negative. All other systems are negative Health Status Allergies: Allergic Reactions (Selected) Severe Neomycin ophthalmic- Eye swelling and eye redness. 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 / Confirmed Polycystic ovary syndrome / [id number] / Confirmed / [id number] / Confirmed Histories History History (0,0,0,0) No previous pregnancies history have been recorded Family History: Diabetes mellitus Mother History Lab from [facility] 12/23/2018 8:37 EST WBC 6.8 x10 RBC 4.38 x10 Hgb 10.7 g/dL LOW Hct 32.2 % LOW MCV 73.5 fL LOW MCH 24.3 pg LOW MCHC 33.1 % RDW 15.5 % HI Platelet 196 x10 MPV 10.4 fL Neutro Auto 70.7 % HI Lymph Auto 20.1 % LOW Reagan Auto 7.4 % Eos Auto 1.4 % Basophil Auto 0.4 % Neutro Absolute 4.8 x10 Lymph Absolute 1.4 x10 Reagan Absolute 0.5 x10 Eos Absolute 0.1 x10 Baso Absolute 0.0 x10 Ur Creatinine Tox Scrn 388.4 mg/dL NA Ur Amph Scrn w/Conf Negative ng/mL Ur Shauna Scrn w/Conf Negative ng/mL Ur Benzodia Scrn w/Conf Negative ng/mL Ur Cannab Scrn w/Conf Negative ng/mL Ur Cocaine Scrn w/Conf Negative ng/mL Ur Methadone Scrn w/Conf Negative ng/mL Ur Buprenorphine Scrn w/Conf Negative ng/mL Ur Oxy Screen w/Conf Negative ng/mL Ur Opiate Scrn w/Conf Negative ng/mL Ur PCP Scrn w/Conf Negative ng/mL UA Spec Grav 1.016 UA pH 6.0 Procedure history: Tonsillectomy ([id number]). Lazy Eye Repair. Comments: 12/31/2015 13:17 EST - Edilma Moreira Left foot surgery. Comments: 05/02/2017 13:03 EDT - Lindsey Lopez right foot-remove a piece glass REVISION OF NOSE ([id number]). Comments: 05/02/2017 13:21 EDT - Lindsey Lopez deviated septum repair Physical Examination VS/Measurements Vital Signs 12/23/2018 14:18 EST Heart Rate Monitored 61 bpm Respiratory Rate 16 br/min Systolic Blood Pressure 149 mmHg HI Diastolic Blood Pressure 82 mmHg 12/23/2018 14:02 EST Heart Rate Monitored 62 bpm Respiratory Rate 16 br/min Systolic Blood Pressure 150 mmHg HI Diastolic Blood Pressure 70 mmHg 12/23/2018 13:47 EST Heart Rate Monitored 61 bpm Respiratory Rate 18 br/min Systolic Blood Pressure 132 mmHg Diastolic Blood Pressure 72 mmHg 12/23/2018 13:32 EST Heart Rate Monitored 82 bpm Respiratory Rate 18 br/min Systolic Blood Pressure 122 mmHg Diastolic Blood Pressure 63 mmHg 12/23/2018 13:16 EST Heart Rate Monitored 78 bpm Respiratory Rate 16 br/min Systolic Blood Pressure 121 mmHg Diastolic Blood Pressure 66 mmHg 12/23/2018 13:15 EST Temperature Temporal Artery 36.5 degC 12/23/2018 13:01 EST Heart Rate Monitored 76 bpm Respiratory Rate 20 br/min Systolic Blood Pressure 117 mmHg Diastolic Blood Pressure 63 mmHg 12/23/2018 12:48 EST Heart Rate Monitored 67 bpm Respiratory Rate 16 br/min Systolic Blood Pressure 111 mmHg Diastolic Blood Pressure 62 mmHg 12/23/2018 12:31 EST Heart Rate Monitored 81 bpm Respiratory Rate 14 br/min Systolic Blood Pressure 113 mmHg Diastolic Blood Pressure 58 mmHg LOW 12/23/2018 12:21 EST Heart Rate Monitored 81 bpm Respiratory Rate 16 br/min Systolic Blood Pressure 113 mmHg Diastolic Blood Pressure 56 mmHg LOW 12/23/2018 12:16 EST Heart Rate Monitored 68 bpm Respiratory Rate 18 br/min Systolic Blood Pressure 110 mmHg Diastolic Blood Pressure 55 mmHg LOW 12/23/2018 12:10 EST Heart Rate Monitored 73 bpm Respiratory Rate 16 br/min Systolic Blood Pressure 112 mmHg Diastolic Blood Pressure 58 mmHg LOW 12/23/2018 12:05 EST Heart Rate Monitored 64 bpm Systolic Blood Pressure 120 mmHg Diastolic Blood Pressure 60 mmHg 12/23/2018 12:02 EST Heart Rate Monitored 67 bpm Systolic Blood Pressure 123 mmHg Diastolic Blood Pressure 57 mmHg LOW 12/23/2018 11:59 EST Heart Rate Monitored 77 bpm Systolic Blood Pressure 135 mmHg Diastolic Blood Pressure 65 mmHg 12/23/2018 11:55 EST Heart Rate Monitored 90 bpm Systolic Blood Pressure 132 mmHg Diastolic Blood Pressure 70 mmHg 12/23/2018 11:50 EST Heart Rate Monitored 82 bpm Systolic Blood Pressure 117 mmHg Diastolic Blood Pressure 57 mmHg LOW 12/23/2018 11:45 EST Heart Rate Monitored 72 bpm Systolic Blood Pressure 120 mmHg Diastolic Blood Pressure 61 mmHg 12/23/2018 11:42 EST Heart Rate Monitored 66 bpm Systolic Blood Pressure 118 mmHg Diastolic Blood Pressure 58 mmHg LOW 12/23/2018 11:08 EST Heart Rate Monitored 73 bpm Respiratory Rate 16 br/min Systolic Blood Pressure 126 mmHg Diastolic Blood Pressure 65 mmHg 12/23/2018 10:59 EST Temperature Temporal Artery 36.2 degC LOW Heart Rate Monitored 57 bpm LOW Respiratory Rate 20 br/min Systolic Blood Pressure 128 mmHg Diastolic Blood Pressure 63 mmHg 12/23/2018 9:37 EST Heart Rate Monitored 72 bpm Respiratory Rate 16 br/min Systolic Blood Pressure 126 mmHg Diastolic Blood Pressure 62 mmHg 12/23/2018 8:54 EST Temperature Oral 36.7 degC 12/23/2018 7:15 EST Temperature Oral 36.5 degC Heart Rate Monitored 72 bpm Respiratory Rate 16 br/min Systolic Blood Pressure 142 mmHg HI Diastolic Blood Pressure 60 mmHg General: Alert and oriented. Eye: Pupils are equal, round and reactive to light, Extraocular movements are intact. HENT: Normocephalic. Neck: Supple. Respiratory: Respirations are non-labored. Cardiovascular: Normal rate. Breast: No mass. Gastrointestinal: Soft, Non-tender. Obstetric Exam Contractions noted: every 4 minutes, not occasionally. Narvaez/ Baby A evaluation: movement present, heart tones within normal limits (110 to 160 bpm), assessment of heart tracing reassuring heart rate. Perineum: intact. Vulva: within normal limits. Vagina: condyloma. Cervix: dilated 4 cm, station/ evidence of descent -2, membrane status ruptured, amniotic fluid leaking. Musculoskeletal Normal range of motion. Integumentary: Warm, Dry, [place]. Neurologic: Alert, Oriented. Psychiatric: Cooperative, Appropriate mood & affect. Impression and Plan Diagnosis (MGY08-QT Z33.1, Discharge, Medical). Premature rupture of membranes ([id number] O42, Discharge, Medical). condition: Reassuring heart rate. Maternal condition: Stable. Plan Admit. Diagnosis (UOG77-IP Z33.1, Discharge, Medical). Premature rupture of membranes ([id number] O42, Discharge, Medical). Course: Progressing as expected. Education and Follow-up: Counseled: Patient, Family. Discharge Planning: Plan to discharge ( To home, In 2 days ). Electronically signed by Libertad Benjamin DO 12/23/18 14:58 EST Normal [facility] Obstetrics Progress Noteon 1 02-22-2018 Obstetrics Progress Note Patient: Juanita Murilol Age: 18 years Sex: Female : 2000 Associated Diagnoses: ; Premature rupture of membranes Author: Libertad Benjamin DO Basic Information Gestational Age: Gestational Age (EGA) and MARCELLE * Note: EGA calculated as of 12/23/2018 MARCELLE: 01/17/2019 EGA*: 36 weeks 3 days Type: Authoritative Method Date: 04/12/2018 Method: Last Menstrual Period (04/12/2018) Confirmation: Confirmed Description: -- Comments: -- Entered by: Em Suarez on 12/23/2018 Other MARCELLE Calculations for this : No additional MARCELLE calculations have been recorded for this . Procedure Post Delivery Laceration: perineal first degree. Estimated blood loss: less than 500 ml. Labor/ Delivery Summary Results Review: Problems (Active Problems Only) (SNOMED CT: 886888212, Onset: 04/12/18) Allergic rhinitis caused by pollens (SNOMED CT: 8741884510, Onset: --) ADHD (SNOMED CT: AZEGxwEmLzUcjdGfwKgAAg, Onset: --) Polycystic ovary syndrome (SNOMED CT: 248061F3-4212-5M6V-W113-4G [id number], Onset: --) Depression (SNOMED CT: 150168401, Onset: --) Excessive growth of facial hair (SNOMED CT: 464500229, Onset: --) Premature rupture of membranes (SNOMED CT: AZEGxwEmLzUcjSUGwKgAAg, Onset: --) Delivery Summary A Membrane Status Information ROM Type: Spontaneous rupture of membranes Amniotic Fluid Color/Description: Thin meconium Labor Information 2nd Stage Onset Date/Time: 12/23/18 16:34:00 Monitoring FHR Monitoring Method: scalp electrode . Vaginal delivery procedure Performed by: transaction coordinator. Indication for delivery: labor progression augmented. Informed consent obtained: for anesthesia, for procedure. Anesthesia method: epidural. Medication prior to procedure: as documented on medication administration record. Monitoring during procedure: blood pressure monitoring, monitor, pulse oximetry. Sterile preparation of site: in usual fashion. Position: birthing bed. Rupture of membranes: moderate amount of fluid, appearance of fluid clear, spontaneous. Delivery of : uneventful. Status of Viable Gender: male. Cord blood: blood gases obtained. Umbilical cord: three vessels. Personnel present at resuscitation: Mass Spec. Placenta: delivery spontaneous, intact. Uterus: hemostasis. Procedure tolerated: well. Complications Maternal: no complications. Narvaez/ Baby A: respiratory distress. Impression and Plan Vaginal Delivery: condition: Stable. Maternal condition: Stable. Diagnosis (SZG96-WV Z33.1, Discharge, Medical). Premature rupture of membranes ([id number] O42, Discharge, Medical). Course: Progressing as expected. Electronically signed by Cassidy PUENTE Libertadiggy Olson 12/23/18 17:40 EST Normal [facility] Surgical Pathology Reporton 12-23-2018 Surgical Pathology Report Clinical Information Procedure: Vaginal Delivery, 36 weeks +3 days Pre-operative diagnosis: rupture of membranes Chromosomes Needed: No SP Specimen A Placenta to pathology for evaluation Gross Description Received in formalin labeled ?placenta? is a placenta with attached umbilical cord and attached membranes. The umbilical cord measures 4.5 cm in length, has 3 blood vessels and is inserted 4.5 cm from the nearest disc margin. The membranes are translucent, pink-dias. The placental disc measures 18.5 x 17.0 x 3.0 cm and weighs 529 gm. The maternal surface is lobulated, without lacerations or hematomas. The surface is smooth, glistening blue. Gross lesions are not present in the placental disc parenchyma. Sections of the umbilical cord are submitted in cassette A1. Sections of the membranes are submitted in cassette A2. Sections of the placental disc are submitted in cassettes A3-A6. Microscopic Description The umbilical cord has three blood vessels. The membranes and umbilical cord show no evidence of acute inflammation. Sections of the placental disc show mature chorionic villi with moderate calcifications. Diagnosis Placenta, vaginal delivery: Third trimester placenta (529 grams), with moderate calcifications. [id number] Garcia MD PhD (Electronically signed by) Verified: 12/25/18 15:28 Normal [facility] Comment on above: Performed By: #### . Automated Diff #### [place] [address] UDS OB/Con 12-23-2018 Creatinine [Mass/Vol] 388.4 mg/dL Normal [facility] Comment on above: Performed By: #### C [id number] #### [place] [address] Ur Amph Scrn w/Conf Negative Normal NEG = <1000 [facility] Comment on above: Performed By: #### C [id number] #### [address] [address] Ur Shauna Scrn w/Conf Negative Normal NEG = <200 [facility] Comment on above: Performed By: #### C [id number] #### [place] [id number] Ur Benzodia Scrn w/Conf Negative Normal NEG = <200 [facility] Comment on above: Performed By: #### C [id number] #### [address] [address] Ur Cannab Scrn w/Conf Negative Normal NEG = <50 [facility] Comment on above: Performed By: #### C [id number] #### [address] [address] Ur Cocaine Scrn w/Conf Negative Normal NEG = <300 [facility] Comment on above: Performed By: #### C [id number] #### [address] [address] Ur Methadone Scrn w/Conf Negative Normal NEG = <300 [facility] Comment on above: Performed By: #### C [id number] #### [address] [address] Ur Opiate Scrn w/Conf Negative Normal NEG = <300 [facility] Comment on above: Performed By: #### C [id number] #### [address] [address] Ur Oxy Screen w/Conf Negative Normal NEG = <100 [facility] Comment on above: Performed By: #### C [id number] #### [address] [address] Ur Oxy Scrn Qnt w/Confirm 25 ng/mL Normal <=99 [facility] Comment on above: Performed By: #### C [id number] #### [address] [address] Ur PCP Scrn w/Conf Negative Normal NEG = <25 [facility] Comment on above: Performed By: #### C [id number] #### [address] [address] [employer] [place] Yes Normal [facility] Comment on above: Performed By: #### C [id number] #### [address] [address] Ur Buprenorphine Scrn w/Conf Negative Normal NEG = <10 [facility] Comment on above: Performed By: #### C [id number] #### [address] [address] UA pH 6.0 Normal 4.5 - 7.8 [facility] Comment on above: Performed By: #### C [id number] #### [address] [address] UA Spec Grav 1.016 Normal 1.003-1.035 [facility] Comment on above: Performed By: #### C [id number] #### [address] [address] Grp B PCRon 12-22-2018 Allergic to Penicillin? Unknown Normal [facility] Comment on above: Result Comment: For antibiotic sensitivity, please contact the Laboratory to request anti-microbial susceptibility testing within 7 days of specimen collection. Performed By: #### C D:[id number] #### [place] [id number] Group B Strep PCR Negative Normal Negative [facility] Comment on above: Result Comment: No G roup B Strep nucleic acid detected. The [employer] GBS Assay is an automated nucleic acid extraction and purification Real-Time PCR detection of Streptococcus agalactiae, Group B Strep nucleic acid sequences. A positive result indicates the presence of GBS nucleic acid from BISWAS broth enrichment of vaginal-rectal swab specimens obtained from women. A positive result does not necessarily indicate the presence of viable organisms. Per CDC Recommendation Guidelines, women with positive intrapartum NAAT results for GBS should receive antibiotic prophylaxis with penicillin G, ampicillin, or cefazolin. Reflex susceptibility should be performed prior to use of clindamycin only on GBS isolates from penicillin-allergic women who are considered a high risk for anaphylaxis. Treatment with vancomycin without addtional testing is warranted if resistance to clindamycin is noted. Performed By: #### C [id number] #### [address] [address] Otheron 07-12-2018 Interpretation and review of laboratory results Abnormal [facility] URINALYS[facility], MACROon 07-13-19 19 Bilirubin Ql (U) SMALL Abnormal NEGATIVE [facility] Clarity (U) CLEAR CLEAR [facility] Color (U) YELLOW YELLOW [facility] Glucose Test strip (U) [Mass/Vol] Negative NEGATIVE mg/dl [facility] Hemoglobin Ql (U) Negative NEGATIVE [facility] Ketones (U) [Mass/Vol] 15 mg/dl Abnormal NEGATIVE [facility] Leukocyte esterase Test strip Ql (U) SMALL Abnormal NEGATIVE [facility] Nitrite Ql (U) Negative NEGATIVE [facility] pH (U) 6.0 [pH] [facility] Protein Ql (U) 30 mg/dl Abnormal NEGATIVE [facility] Specific gravity (U) [Rel density] 1.020 [facility] Urobilinogen (U) [Mass/Vol] 0.2 mg/dl 0.2 - 1 mg/dl [facility] URINE MACROSCOPICon 07-13-19 19 Bilirubin Ql (U) SMALL Abnormal NEGATIVE [facility] Clarity Nom (U) CLEAR Normal CLEAR [facility] Color Nom (U) YELLOW Normal YELLOW [facility] Glucose Ql (U) Negative Normal NEGATIVE [facility] pH (U) 6.0 [pH] Normal 5.0-7.0 [facility] Protein mass conc (U) 30 mg/dL Abnormal NEGATIVE [facility] URINE HEMOGLOBIN Negative Normal NEGATIVE [facility] URINE KETONE 15 mg/dl Abnormal NEGATIVE [facility] URINE LEUKOTEST SMALL Abnormal NEGATIVE [facility] URINE NITRATES Negative Normal NEGATIVE [facility] URINE SPEC GRAVITY 1.020 Normal 1.010-1.025 [facility] Urobilinogen Qn (U) 0.2 mg/dl Normal 0.2-1.0 [facility] URINE MICROSCOPICon 07-13-19 19 Bacteria LM.HPF #/area (Urine sed) 1+ Abnormal NEGATIVE [facility] Casts LM.LPF #/area (Urine sed) NONE Normal [facility] CRYSTAL NONE Normal NONE [facility] Epithelial cells LM.HPF #/area (Urine sed) TOO NUMEROUS TO COUNT Normal [facility] Mucus Ql (Urine sed) Negative Normal NEGATIVE [facility] RBC #/vol (U) Negative Normal NEGATIVE [facility] URINE COMMENT POSSIBLY CONTAMINATE D SPECIMEN, CULTURE MUST BE ORDERED SEPARATELY IF DEEMED NECESSARY. Normal [facility] WBC #/vol (U) '5 TO [address] [facility] Bacteria LM.HPF (Urine sed) [#/Area] 1+ Abnormal NEGATIVE [facility] Casts LM.LPF (Urine sed) [#/Area] NONE NONE /LPF [facility] Crystals LM Nom (Urine sed) NONE NONE [facility] Epithelial cells LM Ql (Urine sed) TOO NUMEROUS TO COUNT /HPF [facility] Mucus Ql (Urine sed) Negative NEGATIVE [facility] RBC LM.HPF (Urine sed) [#/Area] Negative NEGATIVE /HPF [facility] Urine sediment comments LM [place] (Urine sed) POSSIBLY CONTAMINATED SPECIMEN, CULTURE MUST BE ORDERED SEPARATELY IF DEEMED NECESSARY. [facility] WBC LM.HPF (Urine sed) [#/Area] '5 TO 10 NEGATIVE /HPF [facility] CHLAM/GC AMPLIFon 09-25-2017 CHLAMYDIA NUC. AMP Positive Abnormal Negative [facility] GONOCOCCUS NUC. AMP Negative Normal Negative [facility] Comment on above: Result Comment: [facility] HCG QUALon 09-20-2017 HCG.beta subunit ( test) Ql (U) Negative Normal [facility] Comment on above: Performed By: #### U HCGT #### [place] [address] URINE MACROSCOPICon 09-21-19 18 Bilirubin Ql (U) Negative Normal NEGATIVE [facility] Comment on above: Performed By: #### U HCGT #### [place] [address] Clarity Nom (U) CLOUDY Abnormal CLEAR [facility] Comment on above: Performed By: #### U HCGT #### [place] [address] Color Nom (U) YELLOW Normal YELLOW [facility] Comment on above: Performed By: #### U HCGT #### [place] [address] Glucose Ql (U) Negative Normal NEGATIVE [facility] Comment on above: Performed By: #### U HCGT #### Testing performed at [address] [address] pH (U) 6.0 [pH] Normal 5.0-7.0 [facility] Comment on above: Performed By: #### U HCGT #### Testing performed at [address] [address] Protein mass conc (U) 30 mg/dL Abnormal NEGATIVE [facility] Comment on above: Performed By: #### U HCGT #### Testing performed at [address] [address] URINE HEMOGLOBIN TRACE-LYSED Abnormal NEGATIVE [facility] Comment on above: Performed By: #### U HCGT #### Testing performed at [address] [address] URINE KETONE Negative Normal NEGATIVE [facility] Comment on above: Performed By: #### U HCGT #### Testing performed at [address] [address] URINE LEUKOTEST LARGE Abnormal NEGATIVE [facility] Comment on above: Performed By: #### U HCGT #### Testing performed at [address] [address] URINE NITRATES Negative Normal NEGATIVE [facility] Comment on above: Performed By: #### U HCGT #### Testing performed at [address] [address] URINE SPEC GRAVITY 1.025 Normal 1.010-1.025 [facility] Comment on above: Performed By: #### U HCGT #### Testing performed at [address] [address] Urobilinogen Qn (U) 0.2 mg/dl Normal 0.2-1.0 [facility] Comment on above: Performed By: #### U HCGT #### Testing performed at [address] [address] URINE MICROSCOPICon 09-21-19 18 Bacteria LM.HPF #/area (Urine sed) 2+ Abnormal NEGATIVE [facility] Comment on above: Performed By: #### U HCGT ####[place] [address] Casts LM.LPF #/area (Urine sed) NONE Normal NONE [facility] Comment on above: Performed By: #### U HCGT ####[place] [address] CRYSTAL NONE Normal NONE [facility] Comment on above: Performed By: #### U HCGT ####[place] [address] Epithelial cells LM.HPF #/area (Urine sed) TOO NUMEROUS TO COUNT Normal [facility] Comment on above: Performed By: #### U HCGT ####[place] [address] Mucus Ql (Urine sed) TRACE Abnormal NEGATIVE [facility] Comment on above: Performed By: #### U HCGT ####[place] [address] RBC #/vol (U) Negative Normal NEGATIVE [facility] Comment on above: Performed By: #### U HCGT ####[place] [address] URINE COMMENT POSSIBLY CONTAMINATE D SPECIMEN, CULTURE MUST BE ORDERED SEPARATELY IF DEEMED NECESSARY. Normal [facility] Comment on above: Performed By: #### U HCGT ####[place] [address] URINE OTHER SPERM Normal [facility] Comment on above: Performed By: #### U HCGT ####[place] [address] WBC #/vol (U) 20 TO [address] [facility] Comment on above: Performed By: #### U HCGT ####Testing performed at [address] [address] WET PREPon 09-20-2017 WET PREP SPECIMEN DESCRIPTION VAGINAL SPECIMEN WET PREP CLUE CELLS PRESENT * Result Note: NO YEAST SEEN * * Result Note: NO TRICH SEEN * * Result Note: VERIFIED BY DUP TESTING * REPORT STATUS 09/20/2017 * Result Note: FINAL * Normal [facility] Comment on above: Performed By: #### W ETP ####Testing performed at [address] [address] URINE HCG QUALon 08-18-2017 HCG.beta subunit ( test) Ql (U) Negative Normal [facility] URINE MACROSCOPICon 08-19-19 18 Bilirubin Ql (U) Negative Normal NEGATIVE [facility] Clarity Nom (U) CLEAR Normal CLEAR [facility] Color Nom (U) YELLOW Normal YELLOW [facility] Glucose Ql (U) Negative Normal NEGATIVE [facility] pH (U) 7.0 [pH] Normal 5.0-7.0 [facility] Protein mass conc (U) Negative Normal NEGATIVE [facility] URINE HEMOGLOBIN Negative Normal NEGATIVE [facility] URINE KETONE Negative Normal NEGATIVE [facility] URINE LEUKOTEST TRACE Abnormal NEGATIVE [facility] URINE NITRATES Negative Normal NEGATIVE [facility] URINE SPEC GRAVITY 1.015 Normal 1.010-1.025 [facility] Urobilinogen Qn (U) 0.2 mg/dl Normal 0.2-1.0 [facility] URINE MICROSCOPICon 08-19-19 18 Bacteria LM.HPF #/area (Urine sed) TRACE Abnormal NEGATIVE [facility] Casts LM.LPF #/area (Urine sed) NONE Normal NONE [facility] CRYSTAL NONE Normal NONE [facility] Epithelial cells LM.HPF #/area (Urine sed) [address] [facility] Mucus Ql (Urine sed) Negative Normal NEGATIVE [facility] RBC #/vol (U) Negative Normal NEGATIVE [facility] URINE COMMENT POSSIBLY CONTAMINATE D SPECIMEN, CULTURE MUST BE ORDERED SEPARATELY IF DEEMED NECESSARY. Normal [facility] WBC #/vol (U) 1 TO [address] [facility] CBCon 08-09-2017 ABSOLUTE BAS 0.[address] [facility] ABSOLUTE EOS 0.[address] [facility] ABSOLUTE NEUTROPHIL COUNT 5.0 x10 Normal 1.0-7.0 [facility] Basophils/100 WBC (Bld) 0.6 % Normal 0.0-2.0 [facility] DTYPE AUTO DIFF Normal [facility] Eosinophils/100 WBC (Bld) 1.6 % Normal 0.0-11.0 [facility] Lymphocytes #/vol (Bld) 1.[address] [facility] Lymphocytes/100 WBC (Bld) 24.5 % Normal 20.0-55.0 [facility] Monocytes #/vol (Bld) 0.6 X10 Normal [facility] Monocytes/100 WBC (Bld) 7.5 % Normal 0.0-10.0 [facility] Neutrophils/100 WBC (Bld) 65.8 % Normal 37.0-75.0 [facility] Erythrocyte distribution width Ratio (RBC) 13.7 % Normal 11.5-14.5 [facility] Hematocrit Volume Fraction (Bld) 40.0 % Normal 36.0-48.0 [facility] Hemoglobin mass conc (Bld) 13.4 g/dL Normal 12.0-16.0 [facility] MCH Entitic mass (RBC) 26.0 pg Normal 26.0-35.0 [facility] MCHC mass conc (RBC) 33.5 g/dL Normal 27.0-37.0 [facility] MCV Entitic volume (RBC) 77.7 fL Low 80.0-100.0 [facility] Platelet mean volume Entitic volume (Bld) 9.7 fL Normal 7.4-11.0 [facility] Platelets #/vol (Bld) 229 /cmm Normal 130.0-400.0 [facility] RBC #/vol (Bld) 5.14 /cmm Normal 4.0-5.4 [facility] WBC #/vol (Bld) 7.7 /cmm Normal 3.6-11.0 [facility] CHEM 7 FASTINGon 08-09-2017 Chloride molar conc 107 mmol/L Normal 98-107 [facility] CO2 molar conc 28 mmol/L Normal 22-30 [facility] Creatinine mass conc 0.7 mg/dL Normal 0.7-1.2 [facility] GFR/1.73 sq M predicted among non-blacks MDRD vol rate/area (S/P/Bld) Unable to calculate GFR due to inappropriate age/gender/creatinine value. Normal [facility] Glucose mass conc 109 mg/dL High 70-100 [facility] Comment on above: Result Comment: NORMAL <100 mg/dL PREDIABETES 101-126 mg/dL DIABETES 126 mg/dL or higher Potassium molar conc 3.9 mmol/L Normal 3.5-5.1 [facility] Sodium molar conc 144 mmol/L Normal 137-145 [facility] Urea nitrogen mass conc 9 mg/dL Normal 7-20 [facility] URINE HCG QUALon 08-09-2017 HCG.beta subunit ( test) Ql (U) Negative Normal [facility] URINE MACROSCOPICon 08-10-19 18 Bilirubin Ql (U) Negative Normal NEGATIVE [facility] Clarity Nom (U) HAZY Abnormal CLEAR [facility] Color Nom (U) YELLOW Normal YELLOW [facility] Glucose Ql (U) Negative Normal NEGATIVE [facility] pH (U) 6.0 [pH] Normal 5.0-7.0 [facility] Protein mass conc (U) Negative Normal NEGATIVE [facility] URINE HEMOGLOBIN Negative Normal NEGATIVE [facility] URINE KETONE Negative Normal NEGATIVE [facility] URINE LEUKOTEST SMALL Abnormal NEGATIVE [facility] URINE NITRATES Negative Normal NEGATIVE [facility] URINE SPEC GRAVITY 1.020 Normal 1.010-1.025 [facility] Urobilinogen Qn (U) 0.2 mg/dl Normal 0.2-1.0 [facility] URINE MICROSCOPICon 06-21-20 18 Bacteria LM.HPF #/area (Urine sed) 3+ Abnormal NEGATIVE [facility] Casts LM.LPF #/area (Urine sed) NONE Normal NONE [facility] CRYSTAL OCCASIONAL Abnormal NONE [facility] Comment on above: Result Comment: QUINTIN PHOUS URATES Epithelial cells LM.HPF #/area (Urine sed) [address] [facility] Mucus Ql (Urine sed) 1+ Abnormal NEGATIVE [facility] RBC #/vol (U) Negative Normal NEGATIVE [facility] URINE COMMENT POSSIBLY CONTAMINATE D SPECIMEN, CULTURE MUST BE ORDERED SEPARATELY IF DEEMED NECESSARY. Normal [facility] WBC #/vol (U) 10 TO [address] [facility] Aer C AND S- Throaton 2017 Aer C AND S- Throat See BelowAccession: [id number]: Throat throatProcedure: Hemolytic Strep Culture [p1]Collected: 04/14/2017 01:00 ESTReceived: 04/14/2017 17:59 ESTFINAL REPORTSVerified Date/Time: 04/15/2017 00:50 ESTNo Beta Hemolytic Streptococci isolatedPerforming Locationsp1: This test was performed at:[facility], CLIA #[id number], [address] [place], [place], [address] [place] [address], [facility] Comment on above: Order Comment: Maryana medeiros Order: [id number] HCG, Serumon 04-14-2017 HCG Qn Negative [facility] Comment on above: Order Comment: Testi ng performed at [facility], [address] [place] [address] Order: [id number] Result Comment: Note : This test provides only a presumptive diagnosisfor . If the HCG result is inconsistentwith clinical evidence, results should be confirmed withan alternative method, such as a quantitative HCG. Strep Screen w/Rfx Cultureon 04-14-2017 Strep Screen w/Rfx Culture Negative Normal Negative [facility] Comment on above: Order Comment: It is recommended that a negative Strep screen be followed with a throatculture.Testing performed at [facility], [address] [place], [place] [address]st Order: [id number] Culture, urine Bacteria identified Cx Nom (U) Positive [facility] Work Phone: Bacteria identified Cx Nom (U) Mixed Gram Pos & Gram Neg Org [facility] Work Phone: No Panel Information Group B Streptococcus Culture Group B Beta Streptococcus is not isolated. [facility] Work Phone: Vital Signs Date Time Vital Sign Value Performing Clinician Facility 09-05-2024 08:08-0400 Body height 170.18 cm MICHELLE MAST [employer] Work Phone: [facility] 09-05-2024 08:08-0400 Body mass index (BMI) [Ratio] 50.4 kg/m2 MICHELLE MAST [employer] Work Phone: [facility] 09-05-2024 08:08-0400 Body weight 146.11 kg MICHELLE MAST [employer] DEVEL[employer] Work Phone: [facility] 09-05-2024 08:08-0400 Diastolic blood pressure 78 mm[Hg] MICHELLE MAST EMBEDDED SOFTWARE DEVELOPER Work Phone: [facility] 09-05-2024 08:08-0400 Heart rate 88 /min MICHELLE MAST EMBEDDED SOFTWARE DEVELOPER Work Phone: [facility] 09-05-2024 08:08-0400 SaO2% (BldA) [Mass fraction] 96 % MICHELLE MAST EMBEDDED SOFTWARE DEVELOPER Work Phone: [facility] 09-05-2024 08:08-0400 Systolic blood pressure 116 mm[Hg] MICHELLE MAST EMBEDDED SOFTWARE DEVELOPER Work Phone: [facility] 09-01-2024 13:06-0400 Body height 170.18 cm MICHELLE MAST EMBEDDED SOFTWARE DEVELOPER Work Phone: [facility] 09-01-2024 12:58-0400 Body mass index (BMI) [Ratio] 49.7 kg/m2 MICHELLE MAST EMBEDDED SOFTWARE DEVELOPER Work Phone: [facility] 09-01-2024 12:58-0400 Body weight 144.01 kg MICHELLE MAST EMBEDDED SOFTWARE DEVELOPER Work Phone: [facility] 09-01-2024 12:58-0400 Diastolic blood pressure 84 mm[Hg] MICHELLE MAST EMBEDDED SOFTWARE DEVELOPER Work Phone: [facility] 09-01-2024 12:58-0400 Systolic blood pressure 128 mm[Hg] MICHELLE MAST EMBEDDED SOFTWARE DEVELOPER Work Phone: [facility] 08-13-2024 14:45-0400 Body height 170.18 cm MICHELLE MAST EMBEDDED SOFTWARE DEVELOPER Work Phone: [facility] 08-13-2024 14:45-0400 Body mass index (BMI) [Ratio] 50.5 kg/m2 MICHELLE MAST EMBEDDED SOFTWARE DEVELOPER Work Phone: [facility] 08-13-2024 14:45-0400 Body temperature 98.9 [degF] MICHELLE MAST EMBEDDED SOFTWARE DEVELOPER Work Phone: [facility] 08-13-2024 14:45-0400 Body weight 146.51 kg MICHELLE MAST EMBEDDED SOFTWARE DEVELOPER Work Phone: [facility] 08-13-2024 14:45-0400 Diastolic blood pressure 84 mm[Hg] MICHELLE MAST EMBEDDED SOFTWARE DEVELOPER Work Phone: [facility] 08-13-2024 14:45-0400 Heart rate 83 /min MICHELLE MAST EMBEDDED SOFTWARE DEVELOPER Work Phone: [facility] 08-13-2024 14:45-0400 Respiratory rate 18 /min MICHLELE MAST EMBEDDED SOFTWARE DEVELOPER Work Phone: [facility] 08-13-2024 14:45-0400 SaO2% (BldA) [Mass fraction] 96 % MICHELLE MAST EMBEDDED SOFTWARE DEVELOPER Work Phone: [facility] 08-13-2024 14:45-0400 Systolic blood pressure 120 mm[Hg] MICHELLE MAST EMBEDDED SOFTWARE DEVELOPER Work Phone: [facility] 07-30-2024 08:31-0400 Body height 170.18 cm MICHELLE MAST EMBEDDED SOFTWARE DEVELOPER Work Phone: [facility] 07-30-2024 08:31-0400 Body mass index (BMI) [Ratio] 49.7 kg/m2 MICHELLE MAST EMBEDDED SOFTWARE DEVELOPER Work Phone: [facility] 07-30-2024 08:31-0400 Body weight 144.01 kg MICHELLE MAST EMBEDDED SOFTWARE DEVELOPER Work Phone: [facility] 07-30-2024 08:31-0400 Diastolic blood pressure 80 mm[Hg] MICHELLE MAST EMBEDDED SOFTWARE DEVELOPER Work Phone: [facility] 07-30-2024 08:31-0400 Heart rate 98 /min MICHELLE MAST EMBEDDED SOFTWARE DEVELOPER Work Phone: [facility] 07-30-2024 08:31-0400 Respiratory rate 16 /min MICHELEL MAST EMBEDDED SOFTWARE DEVELOPER Work Phone: [facility] 07-30-2024 08:31-0400 SaO2% (BldA) [Mass fraction] 96 % MICHELLE MAST EMBEDDED SOFTWARE DEVELOPER Work Phone: [facility] 07-30-2024 08:31-0400 Systolic blood pressure 112 mm[Hg] MICHELLE MAST EMBEDDED SOFTWARE DEVELOPER Work Phone: [facility] 07-24-2024 10:45-0400 Body temperature 98.7 [degF] MICHELLE MAST EMBEDDED SOFTWARE DEVELOPER Work Phone: [facility] 07-24-2024 10:45-0400 Diastolic blood pressure 86 mm[Hg] MICHELLE MAST EMBEDDED SOFTWARE DEVELOPER Work Phone: [facility] 07-24-2024 10:45-0400 Heart rate 66 /min MICHELLE MAST EMBEDDED SOFTWARE DEVELOPER Work Phone: [facility] 07-24-2024 10:45-0400 Respiratory rate 16 /min MICHELLE MAST EMBEDDED SOFTWARE DEVELOPER Work Phone: [facility] 07-24-2024 10:45-0400 SaO2% (BldA) [Mass fraction] 98 % MICHELLE MAST EMBEDDED SOFTWARE DEVELOPER Work Phone: [facility] 07-24-2024 10:45-0400 Systolic blood pressure 122 mm[Hg] MICHELLE MAST EMBEDDED SOFTWARE DEVELOPER Work Phone: [facility] 07-24-2024 08:23-0400 Body height 170.18 cm MICHELLE MAST EMBEDDED SOFTWARE DEVELOPER Work Phone: [facility] 07-24-2024 08:23-0400 Body mass index (BMI) [Ratio] 49.8 kg/m2 MICHELLE MAST EMBEDDED SOFTWARE DEVELOPER Work Phone: [facility] 07-24-2024 08:23-0400 Body weight 144.33 kg MICHELLE MAST EMBEDDED SOFTWARE DEVELOPER Work Phone: [facility] 08-07-2023 11:42-[address] ZEYNEP MOURA MD [facility] 08-07-2023 11:42-0400 Body height [address] ZEYNEP MOURA MD [facility] 08-07-2023 11:42-0400 Body temperature 97.34 [degF] DR ZEYNEP MOURA MD [facility] 08-07-2023 11:42-0400 Body weight 118.[address] ZEYNEP MOURA MD [facility] 08-07-2023 11:42-0400 Diastolic Blood Pressure Non-Invasive 64 mm[Hg] DR ZEYNEP MOURA MD [facility] 08-07-2023 11:42-0400 Heart rate 85 /min DR ZEYNEP MOURA MD [facility] 08-07-2023 11:42-0400 Respiratory rate 16 /min DR ZEYNEP MOURA MD [facility] 08-07-2023 11:42-0400 Systolic Blood Pressure Non-Invasive 107 mm[Hg] DR ZEYNEP MOURA MD [facility] 06-26-2023 14:11-0400 Diastolic Blood Pressure Non-Invasive 67 mm[Hg] DR VALERIA SANTANA MD [facility] 06-26-2023 14:11-0400 Heart rate 72 /min DR VALERIA SANTANA MD [facility] 06-26-2023 14:11-0400 Respiratory rate 18 /min DR VALERIA SANTANA MD [facility] 06-26-2023 14:11-0400 Systolic Blood Pressure Non-Invasive 112 mm[Hg] DR VALERIA SANTANA MD [facility] 06-26-2023 12:07-0400 Body height 172.[address] VALERIA SANTANA MD [facility] 06-26-2023 12:07-0400 Body temperature 98.42 [degF] DR VALERIA SANTANA MD [facility] 06-26-2023 12:07-0400 Body weight [address] VALERIA SANTANA MD [facility] 06-26-2023 12:07-0400 Diastolic Blood Pressure Non-Invasive 73 mm[Hg] DR VALERIA SANTANA MD [facility] 06-26-2023 12:07-0400 Heart rate 98 /min DR VALERIA SANTANA MD [facility] 06-26-2023 12:07-0400 Respiratory rate 18 /min DR VALERIA SANTANA MD [facility] 06-26-2023 12:07-0400 Systolic Blood Pressure Non-Invasive 111 mm[Hg] DR VALERIA SANTANA MD [facility] 05-16-2023 17:55-0400 Diastolic Blood Pressure Non-Invasive 77 mm[Hg] IVANA LANGE MD [facility] 05-16-2023 17:55-0400 Heart rate 76 /min IVANA LANGE MD [facility] 05-16-2023 17:55-0400 Mean blood pressure 90 mm[Hg] IVANA LANGE MD [facility] 05-16-2023 17:55-0400 Respiratory rate 16 /min IVANA LANGE MD [facility] 05-16-2023 17:55-0400 Systolic Blood Pressure Non-Invasive 125 mm[Hg] IVANA LANGE MD [facility] 05-16-2023 16:45-0400 Body height 170.2 cm IVANA LANGE MD [facility] 05-16-2023 16:45-0400 Body temperature 98.42 [degF] IVANA LANGE MD [facility] 05-16-2023 16:45-0400 Body weight 127.3 kg IVANA LANGE MD [facility] 05-16-2023 16:45-0400 Diastolic Blood Pressure Non-Invasive 77 mm[Hg] IVANA LANGE MD [facility] 05-16-2023 16:45-0400 Heart rate 89 /min IVANA LANGE MD [facility] 05-16-2023 16:45-0400 Respiratory rate 18 /min IVANA LANGE MD [facility] 05-16-2023 16:45-0400 Systolic Blood Pressure Non-Invasive 114 mm[Hg] IVANA LANGE MD [facility] 04-03-2023 14:18-[address] BLAYNE DORAN MD [facility] 04-03-2023 14:18-0500 Body temperature 98.78 [degF] DR BLAYNE DORAN MD [facility] 04-03-2023 14:18-0500 Body weight 133.[address] BLAYNE DORAN MD [facility] 04-03-2023 14:18-0500 Diastolic Blood Pressure Non-Invasive 71 mm[Hg] DR BLAYNE DORAN MD [facility] 04-03-2023 14:18-0500 Heart rate 89 /min DR BLAYNE DORAN MD [facility] 04-03-2023 14:18-0500 Respiratory rate 18 /min DR BLAYNE DORAN MD [facility] 04-03-2023 14:18-0500 Systolic Blood Pressure Non-Invasive 105 mm[Hg] DR BLAYNE DORAN MD [facility] 02-22-2023 19:54-0500 Blood Pressure Cuff Size DR BLAYNE DORAN MD [facility] 02-22-2023 19:54-[address] BLAYNE DORAN MD [facility] 02-22-2023 19:54-[address] BLAYNE DORAN MD [facility] 02-22-2023 19:54-0500 Diastolic Blood Pressure Non-Invasive 71 mm[Hg] DR BLAYNE DORAN MD [facility] 02-22-2023 19:54-0500 Heart rate 64 /min DR BLAYNE DORAN MD [facility] 02-22-2023 19:54-0500 Respiratory rate 16 /min DR BLAYNE DORAN MD [facility] 02-22-2023 19:54-0500 Systolic Blood Pressure Non-Invasive 129 mm[Hg] DR BLAYNE DORAN MD [facility] 02-22-2023 15:01-0500 Body height 170.[address] BLAYNE DORAN MD [facility] 02-22-2023 15:01-0500 Body temperature 98.42 [degF] DR BLAYNE DORAN MD [facility] 02-22-2023 15:01-0500 Body weight [address] BLAYNE DORAN MD [facility] 02-22-2023 15:01-0500 Diastolic Blood Pressure Non-Invasive 79 mm[Hg] DR BLAYNE DORAN MD [facility] 02-22-2023 15:01-0500 Heart rate 73 /min DR BLAYNE DORAN MD [facility] 02-22-2023 15:01-0500 Respiratory rate 18 /min DR BLAYNE DORAN MD [facility] 02-22-2023 15:01-0500 Systolic Blood Pressure Non-Invasive 121 mm[Hg] DR BLAYNE DORAN MD [facility] 02-09-2022 14:26-0500 Body temperature 97.4 [degF] [facility] Work Phone: 02-09-2022 14:26-0500 Diastolic blood pressure 66 mm[Hg] [facility] Work Phone: 02-09-2022 14:26-0500 Heart rate 85 /min [facility] Work Phone: 02-09-2022 14:26-0500 Respiratory rate 16 /min [facility] Work Phone: 02-09-2022 14:26-0500 SaO2% (BldA) [Mass fraction] 96 % [facility] Work Phone: 02-09-2022 14:26-0500 Systolic blood pressure 114 mm[Hg] [facility] Work Phone: 02-04-2022 15:31-0500 Body height 170.18 cm [facility] Work Phone: 02-04-2022 15:31-0500 Body mass index (BMI) [Ratio] 49.4 kg/m2 [facility] Work Phone: 02-04-2022 15:31-0500 Body weight 143.33 kg [facility] Work Phone: 01-28-2022 07:37-0500 SaO2% (BldA) [Mass fraction] 98 % [facility] Work Phone: 01-28-2022 07:36-0500 Body temperature 97.8 [degF] [facility] Work Phone: 01-28-2022 07:36-0500 Diastolic blood pressure 79 mm[Hg] [facility] Work Phone: 01-28-2022 07:36-0500 Heart rate 63 /min [facility] Work Phone: 01-28-2022 07:36-0500 Systolic blood pressure 133 mm[Hg] [facility] Work Phone: 01-27-2022 22:45-0500 Body height 170.18 cm [facility] Work Phone: 01-27-2022 22:45-0500 Body mass index (BMI) [Ratio] 49.1 kg/m2 [facility] Work Phone: 01-27-2022 22:45-0500 Body weight 142.14 kg [facility] Work Phone: 01-17-2022 16:11-0500 Diastolic blood pressure 76 mm[Hg] [facility] Work Phone: 01-17-2022 16:11-0500 Heart rate 69 /min [facility] Work Phone: 01-17-2022 16:11-0500 SaO2% (BldA) [Mass fraction] 96 % [facility] Work Phone: 01-17-2022 16:11-0500 Systolic blood pressure 118 mm[Hg] [facility] Work Phone: 01-17-2022 16:10-0500 Body temperature 98.4 [degF] [facility] Work Phone: 01-17-2022 15:25-0500 Body height 170.18 cm [facility] Work Phone: 01-17-2022 15:25-0500 Body mass index (BMI) [Ratio] 47.3 kg/m2 [facility] Work Phone: 01-17-2022 15:25-0500 Body weight 137.1 kg [facility] Work Phone: 11-26-2021 17:43-0400 Body height 170.18 cm [facility] Work Phone: 11-26-2021 17:43-0400 Body mass index (BMI) [Ratio] 43.9 kg/m2 [facility] Work Phone: 11-26-2021 17:43-0400 Body weight 127.3 kg [facility] Work Phone: 11-26-2021 17:26-0400 Diastolic blood pressure 64 mm[Hg] [facility] Work Phone: 11-26-2021 17:26-0400 Heart rate 90 /min [facility] Work Phone: 11-26-2021 17:26-0400 Systolic blood pressure 118 mm[Hg] [facility] Work Phone: 11-26-2021 17:25-0400 Body temperature 98.3 [degF] [facility] Work Phone: 02-22-2021 14:11-0500 Diastolic blood pressure 78 mm[Hg] [facility] Work Phone: 02-22-2021 14:11-0500 Heart rate 79 /min [facility] Work Phone: 02-22-2021 14:11-0500 SaO2% (BldA) [Mass fraction] 98 % [facility] Work Phone: 02-22-2021 14:11-0500 Systolic blood pressure 123 mm[Hg] [facility] Work Phone: 02-22-2021 11:57-0500 Respiratory rate 14 /min [facility] Work Phone: 02-22-2021 08:45-0500 Body height 170.18 cm [facility] Work Phone: 02-22-2021 08:45-0500 Body mass index (BMI) [Ratio] 46.5 kg/m2 [facility] Work Phone: 02-22-2021 08:45-0500 Body temperature 96.5 [degF] [facility] Work Phone: 02-22-2021 08:45-0500 Body weight 134.7 kg [facility] Work Phone: 07-12-2018 12:46-0400 Height 170.2 cm [facility] 07-12-2018 12:44-0400 Body Temperature 98.1 [degF] [facility] 07-12-2018 12:44-0400 BP Diastolic 64 mm[Hg] [facility] 07-12-2018 12:44-0400 BP Systolic 125 mm[Hg] [facility] 07-12-2018 12:44-0400 Pulse (Heart Rate) 100 /min [facility] 07-12-2018 12:44-0400 Pulse Oximetry 97 % [facility] 07-12-2018 12:44-0400 Respiratory Rate 18 /min [facility] 10-24-2017 14:40-0400 BMI (Body Mass Index) 39.68 kg/m2 [facility] 10-24-2017 14:40-0400 Body Temperature 98.71 [degF] [facility] 10-24-2017 14:40-0400 BP Diastolic 72 mm[Hg] [facility] 10-24-2017 14:40-0400 BP Systolic 105 mm[Hg] [facility] 10-24-2017 14:40-0400 Height 172.7 cm [facility] 10-24-2017 14:40-0400 Pulse (Heart Rate) 94 /min [facility] 10-24-2017 14:40-0400 Pulse Oximetry 96 % [facility] 10-24-2017 14:40-0400 Respiratory Rate 16 /min [facility] 10-24-2017 14:40-0400 Weight 118.39 kg [facility] Encounters Encounter Date Encounter Type Care Provider Facility Start: 09-05-2024 End: 09-05-2024 Patient encounter procedure Ashley BENITES -[facility] Work Phone: Start: 09-05-2024 End: 09-05-2024 ambulatory MICHELLE MAST EMBEDDED SOFTWARE DEVELOPER Work Phone: -[facility] Start: 09-02-2024 End: 09-02-2024 ambulatory MICHELLE MAST EMBEDDED SOFTWARE DEVELOPER Work Phone: -Laboratory Start: 09-02-2024 End: 09-02-2024 Patient encounter procedure Ashley LIMAC -Laboratory Work Phone: Start: 09-01-2024 End: 09-01-2024 Patient encounter procedure Simin LMIAC -[facility] Work Phone: Start: 09-01-2024 End: 09-02-2024 ambulatory MICHELLE MAST EMBEDDED SOFTWARE DEVELOPER Work Phone: -[facility] Start: 08-13-2024 End: 08-13-[address] Tiffany Marks MD -[facility] Work Phone: Start: 08-13-2024 End: 08-13-2024 ambulatory MICHELLE MAST EMBEDDED SOFTWARE DEVELOPER Work Phone: [facility] Work Phone: Start: 08-05-2024 End: 08-05-2024 ambulatory MICHELLE MAST EMBEDDED SOFTWARE DEVELOPER Work Phone: [facility] Work Phone: Start: 08-05-2024 End: 08-05-2024 Patient encounter procedure Ashley BENITES -[facility] Work Phone: Start: 08-05-2024 End: 08-05-2024 ambulatory Tiffany Marks Facility:[facility] Start: 07-30-2024 End: 07-30-2024 ambulatory MICHELLE MAST EMBEDDED SOFTWARE DEVELOPER Work Phone: [facility] Work Phone: Start: 07-30-2024 End: 07-30-2024 Patient encounter procedure Ashley BENITES -Laboratory Work Phone: Start: 07-30-2024 End: 07-30-2024 Patient encounter procedure Ashley Larose NPElenaC -[facility] Work Phone: Start: 07-30-2024 End: 07-30-2024 ambulatory MICHELLE MAST EMBEDDED SOFTWARE DEVELOPER Work Phone: [facility] Work Phone: Start: 07-29-2024 Registered Referred HEALTH RIS K ASSESSMENT -Laboratory Work Phone: Start: 07-29-2024 End: 07-30-2024 ambulatory Tiffany Potwin Facility:[facility] Start: 07-24-2024 End: 07-24-2024 Emergency department patient visit MICHELLE MAST EMBEDDED SOFTWARE DEVELOPER Work Phone: -Emergency Department Work Phone: Start: 07-16-2024 End: 07-16-2024 ambulatory MICHELLE MAST EMBEDDED SOFTWARE DEVELOPER Work Phone: [facility] Work Phone: Start: 07-16-2024 End: 07-16-2024 Patient encounter procedure Libertad Pate [employer]ENT-C -Laboratory Work Phone: Start: 07-16-2024 End: 07-16-2024 ambulatory [facility] Facility:[facility] Start: 06-05-2024 Registered [employer] HEALTH RIS K ASSESSMENT -Employee Health Start: 06-05-2024 ambulatory Health Risk Assessment Facility:[facility] Start: 06-05-2024 Registered [employer]ring EMPLOYEE HEALTH -Employee Health Start: 01-19-2024 End: 01-19-2024 [facility] Start: 01-15-2024 ambulatory MICHELLE MAST [facility] Start: 11-14-2023 ambulatory Libertad Pate Facility :[facility] Start: 10-29-2023 End: 10-29-2023 ambulatory MICHELLE MAST Facility:[facility] Start: 10-17-2023 End: 10-17-2023 ambulatory Libertad [employer] [facility] Facility:[facility] Start: 10-17-2023 End: 10-17-2023 ambulatory MICHELLE MAST Facility:[facility] Start: 08-07-2023 End: 08-07-2023 Emergency department patient visit DR ZEYNEP MOURA MD [facility] Start: 2023 End: 2023 Patient encounter procedure SAYEDA DERIK MOTOR POOL DRIVER-TRIAGE LICENSED PRACTICAL NURSE [facility] Start: 2023 End: 2023 ambulatory SAYEDA DERIK MOTOR POOL DRIVER-TRIAGE LICENSED PRACTICAL NURSE Facility:[facility] Start: 07-02-2023 ambulatory SAYEDA DERIK MOTOR POOL DRIVER-TRIAGE LICENSED PRACTICAL NURSE Facility:[facility] Start: 06-26-2023 End: 06-26-2023 Emergency department patient visit DR VALERIA SANTANA MD [facility] Start: 05-16-2023 End: 05-16-2023 Emergency department patient visit IVANA LANGE MD [facility] Start: 05-15-2023 End: 05-15-2023 ambulatory MICHELLE MAST MOTOR POOL DRIVER-TRIAGE LICENSED PRACTICAL NURSE Facility:[facility] Start: 05-15-2023 End: 05-15-2023 Patient encounter procedure SAYEDA DERIK MOTOR POOL DRIVER-TRIAGE LICENSED PRACTICAL NURSE [facility] Start: 04-03-2023 End: 04-03-2023 Emergency department patient visit DR BLAYNE DORAN MD [facility] Start: 02-24-2023 End: 02-24-2023 ambulatory MICHELLE MAST MOTOR POOL DRIVER-TRIAGE LICENSED PRACTICAL NURSE Facility:[facility] Start: 02-24-2023 End: 02-24-2023 Patient encounter procedure MICHELLE MAST MOTOR POOL DRIVER-TRIAGE LICENSED PRACTICAL NURSE [facility] Start: 02-22-2023 End: 02-22-2023 Emergency department patient visit DR BLAYNE DORAN MD [facility] Start: 08-31-2022 End: 08-31-2022 ambulatory [facility] Work Phone: Start: 08-31-2022 End: 08-31-2022 [facility] Start: 02-04-2022 End: 02-09-2022 Evaluation and management of inpatient [facility] Start: 02-01-2022 End: 02-01-2022 ambulatory [facility] Work Phone: Start: 02-01-2022 End: 02-01-2022 [facility] product manager medical device Off Start: 01-30-2022 End: 01-31-2022 Evaluation and management of inpatient [facility] Start: 01-28-2022 End: 01-31-2022 Evaluation and management of inpatient [facility] Start: 01-27-2022 End: 01-28-2022 ambulatory [facility] Work Phone: Start: 01-27-2022 End: 01-28-2022 [facility] Start: 01-24-2022 End: 01-24-2022 ambulatory [facility] Work Phone: Start: 01-24-2022 End: 01-24-2022 [facility] product manager medical device Off Start: 01-17-2022 End: 01-17-2022 ambulatory [facility] Work Phone: Start: 01-17-2022 End: 01-17-2022 Patient encounter procedure [facility] Start: 12-02-2021 End: 12-02-2021 ambulatory [facility] Work Phone: Start: 12-02-2021 End: 12-02-2021 [facility] [place] product manager medical device Off Start: 11-28-2021 End: 11-28-2021 ambulatory [facility]se Work Phone: Start: 11-28-2021 End: 11-28-2021 [facility] product manager medical device Off Start: 11-26-2021 End: 11-26-2021 [facility] Start: 09-13-2021 End: 09-13-2021 [facility] product manager medical device Off Start: 08-23-2021 End: 08-23-2021 [facility] [place] product manager medical device Off Start: 07-02-2021 End: 07-02-2021 [facility] Start: 06-30-2021 End: 06-30-2021 [facility] [place] product manager medical device Off Start: 06-28-2021 End: 06-28-2021 [facility] [place] product manager medical device Off Start: 05-30-2021 End: 05-30-2021 [facility] [place] product manager medical device Off Start: 02-22-2021 End: 02-22-2021 [facility] Start: 07-12-2018 End: 07-12-2018 Emergency department patient visit Myron Morrison Work Phone: [facility] Start: 07-10-2018 Patient encounter procedure LIBERTAD MARINO Facility:[facility] Start: 10-25-2017 End: 10-29-2017 Patient encounter LYDIA FLYNN [facility] Start: 10-24-2017 End: 10-24-2017 Patient encounter SARA WALTERS [facility] Start: 10-24-2017 End: 10-24-2017 Office outpatient new 20 minutes Lydia Flynn Work Phone: [facility] Comment on above: Diarrhea, unspecifie d type (Primary Dx) Start: 04-14-2017 End: 04-14-2017 Emergency department patient visit KORINA RAMIREZ Facility:[facility] Start: 04-12-2017 End: 04-12-2017 Emergency department patient visit WALTER BOYCE Facility:[facility] Procedures Date Procedure Procedure Detail Performing Clinician Start: 09-02-2024 Procedure MICHELLE AGUILAR Work Phone: Comment on above: Test Ordered: [id number] Enhanced Liver Fibrosis (ELF)ELF(TM) Score 8.18 BN Reference Range: <9.80ELF(TM) Score Interpretation:Risk cut-offs to assess the likelihood of progressionto cirrhosis and liver-related clinical events within3.9 years following baseline ELF score (IQR: 14.0-22.4months)*: Lower risk < 9.80 Mid risk 9.80 - 11.29 Higher risk >11.29Note: The ELF(TM) Score is a unitless numerical value.*Joshua SA, Roberto VW, Graham T, et al. Selonsertibfor patients with bridging fibrosis or compensatedcirrhosis due to ACOSTA: Results from randomized phaseIII STELLAR trials. J Hepatol. 2020 Aug;73(1):26-39.Performed at: [address] [id number] Director: Juana Lee MD, Phone: [phone] at: [facility] [id number] Director: Gilles Carey PhD, Phone: [phone] Start: 08-05-2024 Ultrasound elastogra phy of liver MICHELLE MELLO E[employer]ED SOFTWARE DEVELOPER Work Phone: Start: 07-30-2024 Chocolate RAST MICHELLE Landaverde AST [employer] SOFTWARE DEVELOPER Work Phone: Start: 07-30-2024 Food RAST MICHELLE NAYELI T [employer] SOFTWARE DEVELOPER Work Phone: Start: 07-30-2024 Hepatitis A virus an tibody, total measurement MICHELLE MAST EMB[employer]ED SOFTWARE DEVELOPER Work Phone: Comment on above: Comment: The HAV tot al antibody assay detects both IgG andIgM but does not differentiate between them. A negativeresult suggests susceptibility to infection. A positiveresult could be due to vaccination, previously resolvedinfection or active infection. Testing for HAV IgM shouldbe performed if active HAV infection is suspected. Labcorpoffers profiles that will automatically reflex positive HAVtotal antibody results to IgM (e.g., panel #[id number] HAVAntibody w/ Rfx).Performed at: [facility] [id number] Director: Gilles Carey PhD, Phone: [phone] Start: 07-30-2024 Hepatitis C antibody measurement MICHELLE AGUILAR Work Phone: Comment on above: Reactive: Presumptiv e evidence of antibodies to HCV. Follow CDC recommendations for supplemental testing.Non-Reactive: Antibodies to HCV were not detected; does not exclude the possibility of exposure to HCVReactive Results are presumptive evidence of antibodies to HCV. Follow CDC recommendations for supplemental testing.Order confirmation testing: HCV Quant by PCR testing - HCVPCR #[id number] Non Reactive: < 0.8 Equivocal: >/= 0.8 to < 1.0 Reactive: >/= 1.0The CDC requires that a reactive/equivocal HCV antibody result be sent out for confirmation. HCV Quant by PCR testing. Start: 07-30-2024 Alex TORRES NAYELI Blank JEFF Work Phone: Start: 07-30-2024 Vitamin D, 25-hydrox y measurement MICHELLE AGUILAR Work Phone: Comment on above: Vitamin D StatusDefi ciency: <20 ng/mL (50nmol/L)Insufficiency: 20-30 ng/mL (50-75 nmol/L)Sufficiency: 30-100 ng/mL (75-250 nmol/L)Toxicity: >100 ng/mL (>250 nmol/L) Start: 07-24-2024 Transvaginal echography MICHELLE AGUILAR Work Phone: Start: 02-22-2021 Influenza Types A,B Direct FA (ARLYN) Start: 02-22-2021 Plain chest X-ray Start: 07-12-2018 Urinalysis microscopic only Myron Suhas Morrison Work Phone: Start: 07-12-2018 URINALYSIS, MACRO Myron Morrison Work Phone: Group B Streptococcus Culture Urine culture Plan of Treatment Date Care Activity Detail Author Start: 07-24-2024 [facility] Start: 02-09-2022 Patient discharge [facility] Work Phone: Start: 02-09-2022 [facility] Work Phone: Start: 02-05-2022 Application of abdom inal corset [facility] Work Phone: Start: 02-04-2022 End: 02-05-2022 [facility] Work Phone: Start: 02-04-2022 Administration of medication [facility] Work Phone: Start: 02-04-2022 Ambulation therapy management [facility] Work Phone: Start: 02-04-2022 Application of device [facility] Work Phone: Start: 02-04-2022 Application of intermittent pneumatic compression device [facility] Work Phone: Start: 02-04-2022 Assessment of risk o f venous thromboembolism [facility] Work Phone: Start: 02-04-2022 Catheterization of vein [facility] Work Phone: Start: 02-04-2022 Deep breathing and coughing exercises [facility] Work Phone: Start: 02-04-2022 Exercises [facility] Work Phone: Start: 02-04-2022 Incentive spirometry [facility] Work Phone: Start: 02-04-2022 Measuring intake and output [facility] Work Phone: Start: 02-04-2022 Notification of physician [facility] Work Phone: Start: 02-04-2022 Procedure discontinued [facility] Work Phone: Start: 02-04-2022 Provision of activit y privileges [facility] Work Phone: Start: 02-04-2022 Vital signs measurements [facility] Work Phone: Start: 02-04-2022 Wound care [facility] Work Phone: Start: 02-04-2022 Application of abdom inal corset [facility] Work Phone: Start: 02-04-2022 Admission procedure [facility] Work Phone: Start: 02-04-2022 Consultation [facility] Work Phone: Start: 02-01-2022 Blood count complete auto&auto difrntl wbc COMPLETE CBC W/AUTO DIFF WBC [facility] Work Phone: Start: 02-01-2022 Collection venous bl ood venipuncture ROUTINE VENIPUNCTURE [facility] Work Phone: Start: 02-01-2022 Comprehensive metabo lic panel COMPREHEN METABOLIC PANEL [facility] Work Phone: Start: 02-01-2022 Creatinine other source ASSAY OF URINE CREATININE [facility] Work Phone: Start: 02-01-2022 Culture bacterial quanttative colony count urine URINE CULTURE/COLONY COUNT [facility] Work Phone: Start: 02-01-2022 Culture bct isol&prs mptv id isolate ea urine URINE BACTERIA CULTURE [facility] Work Phone: Start: 02-01-2022 Lactate dehydrogenase ldh LACT ATE (LD) (LDH) ENZYME [facility] Work Phone: Start: 02-01-2022 Protein total xcpt refractometry urine ASSAY OF PROTEIN URINE [facility] Work Phone: Start: 01-27-2022 End: 01-28-2022 [facility] Work Phone: Start: 01-28-2022 Patient discharge [facility] Work Phone: Start: 01-27-2022 Nonstress test [facility] Work Phone: Start: 01-27-2022 Obstetric monitoring [facility] Work Phone: Start: 01-27-2022 Vital signs measurements [facility] Work Phone: Start: 01-27-2022 [facility] Work Phone: Start: 01-17-2022 Nonstress test [facility] Work Phone: Start: 01-17-2022 Obstetric monitoring [facility] Work Phone: Start: 01-17-2022 Vital signs measurements [facility] Work Phone: Start: 01-17-2022 End: 01-17-2022 [facility] Work Phone: Start: 01-17-2022 [facility] Work [facility] Start: 11-26-2021 Nonstress test [facility] Work Phone: Start: 11-26-2021 Obstetric monitoring [facility] Work Phone: Start: 11-26-2021 Vital signs measurements [facility] Work Phone: Start: 11-26-2021 [facility] Work Phone: Start: 11-26-2021 Patient discharge [facility] Work Phone: Start: 08-23-2021 Procedure [facility] Work Phone: Start: 08-23-2021 Chlamydia deoxyribon ucleic acid detection [facility] Work Phone: Start: 10-20-2018 Influenza vaccination INFLUENZ A VACCINE (Season Ended) [facility] Start: 10-20-2017 Influenza vaccination SEQUENTI AL INFLUENZA VACCINE (#1) [facility] Start: 2017 Third diphtheria, te tanus and acellular pertussis (DTaP) vaccination TDAP (ADULT) [facility] Start: 2016 Tetanus vaccination [facility] Start: 2014 Screening for Chlamy karen trachomatis CHLAMYDIA SCREEN [facility] Start: 2013 Vaccination for pollo n papillomavirus HPV VACCINE ADOL (1 - Female 3-dose series) [facility] Start: 07-06-2011 HIV screening HIV SCREENING DISCUSSION [facility] Start: 2009 Vaccination for pollo n papillomavirus HPV VACCINES (1 of 3 - Female 3-dose series) [facility] Start: 1998 GONORRHEA SCREEN GONORRHEA SCREEN [facility] Start: 1998 Tetanus vaccination TETANUS EVERY 10 YR [facility] Alpha 1 antitrypsin [Mass/volume] in Serum or Plasma [facility] Bacteria identified in Urine by Culture [facility] Work Phone: Basic metabolic 2008 panel with ionized calcium - Serum or Plasma [facility] Beta-hemolytic Streptococcus culture [facility] Work Phone: C reactive protein [Mass/volume] in Serum or Plasma [facility] Ceruloplasmin [Mass/volume] in Serum or Plasma [facility] Cytoplasmic ANCA Screen [facility] Ferritin [Mass/volum e] in Serum or Plasma [facility] End: 10-24-2018 Gastrointestinal pathogens DNA and RNA panel - Stool by LIANA with non-probe detection Stool/GI PCR Panel Routine Diarrhea, unspecified type 1 Occurrences starting 10/24/2017 until 10/24/2018 [facility] Comment on above: 1 Occurrences starti ng 10/24/2017 until 10/24/2018 Group B Streptococcu s Culture Group B Streptococcus Culture [facility] Work Phone: Hemoglobin A1c/Hemoglobin.total in Blood [facility] Hepatic function panel [facility] Hepatitis A virus Ab [Presence] in Serum [facility] Hepatitis C antibody measurement [facility] IgA [Mass/volume] in Serum or Plasma [facility] Iron and Iron bindin g capacity panel - Serum or Plasma [facility] Lipid 1996 panel - S aggie or Plasma [facility] Liver stiffness by US.transient elastography [facility] Mitochondria Ab [Pre sence] in Serum [facility] Neisseria gonorrhoea e rRNA [Presence] in Unspecified specimen by LIANA with probe detection [facility] Work Phone: Path report.final Dx Spec [facility] Patient Education [facility] Work Phone: Patient referral [facility] Work Phone: PCR test for Chlamyd ia trachomatis [facility] Work Phone: Procedure [facility] Work Phone: Procedure [facility] Smooth muscle Ab [Presence] in Serum [facility] Thyroid stimulating hormone measurement [facility] Tissue transglutamin ase IgA Ab [Units/volume] in Serum [facility] US Pelvis [facility] Vitamin D, 25-hydrox y measurement [facility] Vitamin D, 25-hydrox y measurement [facility] Immunizations Immunization Date Immunization Notes Care Provider Heber lowe 06-17-2024 Hepatitis B vaccine (recombinant), CpG adjuvanted MICHELLE MAST E[employer]ED SOFTWARE DEVELOPER Work Phone: [facility] 12-12-2016 influenza, injectabl e, quadrivalent, preservative free MICHELLE MAST EMBED[employer]ED SOFTWARE DEVELOPER Work Phone: [facility] 08-02-2016 tetanus toxoid, redu ravinder diphtheria toxoid, and acellular pertussis vaccine, adsorbed MICHELLE MAST EMBEDDED SOFTWARE DEVELOPER Work Phone: [facility] 05-10-2016 meningococcal B vacc ine, fully recombinant MICHELLE MAST EMBEDDED SOFTWARE DEVELOPER Work Phone: [facility] 03-29-2016 meningococcal B vacc ine, fully recombinant MICHELLE MAST EMBEDDED SOFTWARE DEVELOPER Work Phone: [facility] 11-24-2015 meningococcal polysaccharide (groups A, C, Y and W-135) diphtheria toxoid conjugate vaccine (MCV4P) MICHELLE MAST EMBEDDED SOFTWARE DEVELOPER Work Phone: [facility] 07-22-2013 hepatitis A vaccine, pediatric/adolescent dosage, 2 dose schedule MICHELLE MAST EMBEDDED SOFTWARE DEVELOPER Work Phone: [facility] 01-21-2013 hepatitis A vaccine, pediatric/adolescent dosage, 2 dose schedule MICHELLE MAST EMBEDDED SOFTWARE DEVELOPER Work Phone: [facility] 01-01-2013 influenza, injectabl e, quadrivalent, preservative free MICHELLE MAST EMBEDDED SOFTWARE DEVELOPER Work Phone: [facility] 03-06-2011 influenza, injectabl e, quadrivalent, preservative free MICHELLE MAST EMBEDDED SOFTWARE DEVELOPER Work Phone: [facility] 11-24-2010 human papilloma viru s vaccine, bivalent MICHELLE MAST EMBEDDED SOFTWARE DEVELOPER Work Phone: [facility] 07-21-2010 human papilloma viru s vaccine, bivalent MICHELLE MAST EMBEDDED SOFTWARE DEVELOPER Work Phone: [facility] 07-21-2010 varicella virus vaccine TESS TA MAST EMBEDDED SOFTWARE DEVELOPER Work Phone: [facility] 05-18-2010 human papilloma viru s vaccine, bivalent MICHELLE MAST EMBEDDED SOFTWARE DEVELOPER Work Phone: [facility] 05-18-2010 meningococcal polysaccharide (groups A, C, Y and W-135) diphtheria toxoid conjugate vaccine (MCV4P) MICHELLE MAST EMBEDDED SOFTWARE DEVELOPER Work Phone: [facility] 05-18-2010 tetanus toxoid, redu ravinder diphtheria toxoid, and acellular pertussis vaccine, adsorbed MICHELLE MAST EMBEDDED SOFTWARE DEVELOPER Work Phone: [facility] 11-10-2003 diphtheria, tetanus toxoids and acellular pertussis vaccine MICHELLE MAST EMBEDDED SOFTWARE DEVELOPER Work Phone: [facility] 11-10-2003 measles, mumps and rubella virus vaccine MICHELLE MAST EMBEDDED SOFTWARE DEVELOPER Work Phone: [facility] 11-10-2003 poliovirus vaccine, inactivated MICHELLE MAST EMBEDDED SOFTWARE DEVELOPER Work Phone: [facility] 12-15-1999 diphtheria, tetanus toxoids and acellular pertussis vaccine MICHELLE MAST EMBEDDED SOFTWARE DEVELOPER Work Phone: [facility] 12-15-1999 haemophilus influenz ae type b vaccine, PRP-T conjugate MICHELLE MAST EMBEDDED SOFTWARE DEVELOPER Work Phone: [facility] 07-06-1999 measles, mumps and rubella virus vaccine MICHELLE MAST EMBEDDED SOFTWARE DEVELOPER Work Phone: [facility] 07-06-1999 poliovirus vaccine, inactivated MICHELLE MAST EMBEDDED SOFTWARE DEVELOPER Work Phone: [facility] 07-06-1999 varicella virus vaccine TESS TA MAST EMBEDDED SOFTWARE DEVELOPER Work Phone: [facility] 02-09-1999 diphtheria, tetanus toxoids and acellular pertussis vaccine MICHELLE MAST EMBEDDED SOFTWARE DEVELOPER Work Phone: [facility] 02-09-1999 haemophilus influenz ae type b conjugate and Hepatitis B vaccine MICHELLE MAST EMBEDDED SOFTWARE DEVELOPER Work Phone: [facility] 1998 diphtheria, tetanus toxoids and acellular pertussis vaccine MICHELLE MAST EMBEDDED SOFTWARE DEVELOPER Work Phone: [facility] 1998 haemophilus influenz ae type b vaccine, PRP-T conjugate MICHELLE MAST EMBEDDED SOFTWARE DEVELOPER Work Phone: [facility] 1998 poliovirus vaccine, inactivated MICHELLE MAST EMBEDDED SOFTWARE DEVELOPER Work Phone: [facility] 1998 diphtheria, tetanus toxoids and acellular pertussis vaccine MICHELLE MAST EMBEDDED SOFTWARE DEVELOPER Work Phone: [facility] 1998 haemophilus influenz ae type b conjugate and Hepatitis B vaccine MICHELLE MAST EMBEDDED SOFTWARE DEVELOPER Work Phone: [facility] 1998 poliovirus vaccine, inactivated MICHELLE MAST EMBEDDED SOFTWARE DEVELOPER Work Phone: [facility] 1998 hepatitis B vaccine, pediatric or pediatric/adolescent dosage MICHELLE MAST EMBEDDED SOFTWARE DEVELOPER Work Phone: [facility] Payers Date Payer Category Payer Unknown [id number] 2023 Self-pay [id number] 2023 Unknown [id number] 2022 Unknown [id number] 2018 Unknown 2018 Unknown [employer] xxxxxxxxxxx 2018-Present [phone] [id number]. [id number] 1998 Unknown [id number] 2.16.840.1.374893.3.579.2. 196 1998 Unknown [id number] 2.16.840.1.921899.3.579.2. 62 1998 Unknown [id number] 2.16.840.1.796662.3.579.2. 62 1998 Unknown [id number] 2.16.840.1.248777.3.579.2. 1998 Unknown [id number] 2.16.840.1.842649.3.579.2. 1998 Unknown [id number] 2.16.840.1.661377.3.579.2. 1998 Unknown [id number] 2.16.840.1.691210.3.579.2. 1998 Unknown [id number] 2.16.840.1.504777.3.579.2. 1998 Unknown [id number] 2.16.840.1.103937.3.579.2. 1998 Unknown [id number] 2.16.840.1.200065.3.579.2. 1998 Unknown [id number] 2.16.840.1.429787.3.579.2. 1998 Unknown [id number] 2.16.840.1.638839.3.579.2. 1998 Unknown [id number] 2.16.840.1.129339.3.579.2. 1998 Unknown [id number] 2.16.840.1.620967.3.579.2. 627 1959 Unknown [id number] Private Health Insurance [facility] [id number] Unknown [id number] Unknown [id number] 2.16.840.1.437144.3.579.2. 462 Unknown [id number] 2..840.1.174934.3.579.2. 462 Unknown [id number] 2..840.1.811499.3.579.2. 462 Unknown [id number] 2.840.1.515951.3.579.2. 462 Unknown [id number] 2.840.1.086344.3.579.2. 462 Unknown [id number] 2.840.1.335303.3.579.2. 462 Unknown [id number] 2..840.1.605231.3.579.2. 462 Unknown [id number] 2..840.1.701445.3.579.2. 462 Unknown [id number] 2..840.1.880899.3.579.2. 462 Unknown [id number] 2.840.1.752889.3.579.2. 462 Unknown [id number] 2.840.1.657988.3.579.2. 462 Unknown [id number] 2..840.1.594595.3.579.2. 462 Unknown [id number] 2.16.840.1.402511.3.579.2. 462 Unknown [id number] 2.16.840.1.234884.3.579.2. 462 Unknown [id number] 2.16.840.1.721633.3.579.2. 462 Unknown [id number] 2.840.1.045774.3.579.2. 462 Unknown [id number] 2.16.840.1.831143.3.579.2. 462 Social History Date Type Detail Facility Start: 10-24-2017 Tobacco smoking status NHIS [facility] Assigned At Not on file Uriel franklin Start: 07-12-2018 End: 09-05-2024 Tobacco smoking status NHIS Never smoker [facility] Start: 02-22-2021 End: 02-04-2022 Tobacco smoking status NHIS Unknown if ever smoked [facility] Start: 06-12-2020 None [facility] Start: 06-12-2020 Spouse/ Signif icant Other [facility] Start: 2000 Sex Assigned At Female [facility] Tobacco smoking status No Smoking Status Entered [facility] Gender Identity Identifies as fe male gender (finding) [facility] Sexual Orientation Heterosexual (finding) [facility] NEGATED: Highlighted row Not [facility] Goals Date Patient Goal Desired Activity /State Functional Status Date Assessment Result Facility 08-07-2023 Functional Status Independent [facility] 06-26-2023 Functional Status Standard Safet y ID band on, Call device within reach, Bed in low position, Wheels locked, Upper/Half-Length side-rails up, Bedside Cart Locked, Safety level maintained [facility] 05-16-2023 Functional Status Independent [facility] 05-16-2023 Functional Status Independent [facility] 02-22-2023 Functional Status Independent [facility] 02-22-2023 Functional Status ID band on, Call device within reach, Bed in low position, Wheels locked, Upper/Half-Length side-rails up, Safety level maintained [facility] Mental Status Date Assessment Result Facility 08-07-2023 Mental Status Orientation Oriented x 4 [facility] 08-07-2023 Mental Status [facility] 06-26-2023 Mental Status Orientation Oriented x 4 [facility] 05-16-2023 Mental Status Orientation Oriented x 4 [facility] 05-16-2023 Mental Status [facility] 02-22-2023 Mental Status Orientation Oriented x 4 [facility] 02-22-2023 Mental Status [facility] 02-09-2022 Cognitive function Level Of Cons ciousness Awake;Alert;Appropriate;Follow s Commands [facility] Work Phone: 02-08-2022 Cognitive function Appropriate [facility] Work Phone: Clinical Notes 01-28-2022 to 08-05-2024 Note Date & Type Note Facility 08-05-2024 Radiology Diagnostic study note [facility] Imaging Services [address] [place] [address] ABD Limited w/ Elastography MR#: [id number] Acct: [id number] Name: JUANITA PAULINO Rep #: [id number] : 2000 F 24 From: Uzair Curran MD PCP: Dr. Tiffany Marks MD Status: REG CLI Study:ABD Limited w/ Elastography Date of Exa m: 08/05/24 Exam# [id number] Ordering Dr: Ashley Larose [employer] PROCEDURE: ABD LIMITED W/ ELASTOGRAPHY REASON FOR EXAM: ADD SPLEEN PLEASE COMPARISON: None. TECHNIQUE: Right upper quadrant abdominal ultrasound. Kie ElastQ Imaging shear wave elastography for non-invasive assessment of liver tissue stiffness. Ike EPIQ Elite. FINDINGS: LIVER: Size: Enlarged (hepatomegaly) Length: 23.3 cm Echotexture: Diffusely echogenic suggesting fatty infiltration Contour: Normal Lesions: None identified Elastography: EQI Med: 6.9 kPa EQI Med Rusty: 1.51 m/s IQR/Med: 21.7 %* GALLBLADDER: Normal COMMON BILE DUCT: Normal measuring 6 mm. . PANCREAS: Normal Visualized portions of the right kidney are unremarkable. No right upper quadrant ascites. Mild splenomegaly. The spleen measures 13.9 cm 6.1 cm 7.3 cm. US/ABD Limited w/ Elastography IMPRESSION: [id number] hepatic fibrosis. Splenomegaly. Hepatomegaly and diffuse fatty infiltration of the liver. Reference Values: SRU <1.37 m/s (5.7kPa): No to mild fibrosis 1.37 m/s - 2.2 m/s: Moderate to severe fibrosis >2.2 m/s (15kPa): Significant fibrosis / cirrhosis METAVIR Score F2 or higher: 1.34 m/s (5.7kPa) F3 or higher: 1.55 m/s (7.3kPa) F4: 1.80 m/s (10kPa) * If the IQR/Med is >30%, the variance in the measurements is a large and the accuracy of the measurement may be in question. Reading Location: [place] [address] CC: DELMIS Larose; Dr. Tiffany Marks MD ~ Technical Cable Jointer: Signed [facility] 07-30-2024 Evaluation note Diagnosis Onset Date Resolution Belching acute July 30 8:17am Diarrhea acute July 30 8:17am Fecal incontinence acute July 202024 8:17am Fecal urgency acute July 30, 2024 8:17am Heartburn acute July 30 8:17am Lower abdominal pain acute July 30, 2024 8:17am Nausea & vomiting acute July 302024 8:17am Steatosis, 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 [facility] Work Phone: [phone]) 703-295306-11-2025 Evaluation note* Diagnosis Onset Date Resolution Status Admit Date Belching acute July 30 8:17am Diarrhea acute July 30 8:17am Fecal incontinence acute July 202024 8:17am Fecal urgency acute July 30, 2024 8:17am Heartburn acute July 30 8:17am Lower abdominal pain acute July 30, 2024 8:17am Nausea & vomiting acute July 302024 8:17am Steatosis, liver deleted July 8:17am [facility] Work Phone: 1(136) 885-591306-11-2025 Evaluation note* Diagnosis Onset Date Resolution Status Admit Date Belching acute July 30 8:17am Diarrhea acute July 30 8:17am Fecal incontinence acute July 202024 8:17am Fecal urgency acute July 30, 2024 8:17am Heartburn acute July 30 8:17am Lower abdominal pain acute July 30, 2024 8:17am Nausea & vomiting acute July 302024 8:17am Steatosis, liver deleted July 8:17am Genital herpes acute August 13, 2024 2:23pm Liver fibrosis acute August 13, 2024 2:23pm Menorrhagia acute August 13 2:23pm Metabolic dysfunction-associated steatotic liver disease (MASLD) acute August 13, 2024 2:23pm COVID-19 vaccination declined noneac tive August 13, 2024 2:23pm Establishing care with new doctor, encounter for noneactive August 13, 2024 2:23pm PCOS (polycystic ovarian syndrome) noneactive August 13, 2024 2:23pm Tingling of left upper extremity noneactive August 13, 2024 2:23pm Morbid obesity with BMI of 50.0-59.9, adult noneactive August 13, 2024 2:23pm Anxiety and depression noneactive Ju 2024 2:23pm Menorrhagia acute September 01 12:57pm Ovarian cyst, left acute August 192024 12:57pm [facility] Work Phone: 1(739) 267-683306-11-2025 Evaluation note* Diagnosis Onset Date Resolution Status Admit Date Belching acute July 30 8:17am Diarrhea acute July 30 8:17am Fecal incontinence acute July 202024 8:17am Fecal urgency acute July 30, 2024 8:17am Heartburn acute July 30 8:17am Lower abdominal pain acute July 30, 2024 8:17am Nausea & vomiting acute July 302024 8:17am Steatosis, liver deleted July 8:17am Genital herpes acute August 13, 2024 2:23pm Liver fibrosis acute August 13, 2024 2:23pm Menorrhagia acute August 13 2:23pm Metabolic dysfunction-associated steatotic liver disease (MASLD) acute August 13, 2024 2:23pm COVID-19 vaccination declined noneac tive August 13, 2024 2:23pm Establishing care with new doctor, encounter for noneactive August 13, 2024 2:23pm PCOS (polycystic ovarian syndrome) noneactive August 13, 2024 2:23pm Tingling of left upper extremity noneactive August 13, 2024 2:23pm Morbid obesity with BMI of 50.0-59.9, adult noneactive August 13, 2024 2:23pm Anxiety and depression noneactive Ju 2024 2:23pm Menorrhagia acute September 01 12:57pm Obesity acute September 01 12:57pm Ovarian cyst, left acute August 192024 12:57pm PCOS (polycystic ovarian syndrome) acute September 01, 2024 12:57pm Vitamin D deficiency acute September 05, 2024 7:57am [facility] Work Phone: 1(450) 127-789106-11-2025 Evaluation note* Diagnosis Onset Date Resolution Status Admit Date Belching acute July 30 8:17am Diarrhea acute July 30 8:17am Fecal incontinence acute July 202024 8:17am Fecal urgency acute July 30, 2024 8:17am Heartburn acute July 30 8:17am Lower abdominal pain acute July 30, 2024 8:17am Nausea & vomiting acute July 302024 8:17am Steatosis, liver deleted July 8:17am Genital herpes acute August 13, 2024 2:23pm Liver fibrosis acute August 13, 2024 2:23pm Menorrhagia acute August 13 2:23pm Metabolic dysfunction-associated steatotic liver disease (MASLD) acute August 13, 2024 2:23pm COVID-19 vaccination declined noneac tive August 13, 2024 2:23pm Establishing care with new doctor, encounter for noneactive August 13, 2024 2:23pm PCOS (polycystic ovarian syndrome) noneactive August 13, 2024 2:23pm Tingling of left upper extremity noneactive August 13, 2024 2:23pm Morbid obesity with BMI of 50.0-59.9, adult noneactive August 13, 2024 2:23pm Anxiety and depression noneactive Ju 2024 2:23pm Menorrhagia acute September 01 12:57pm Obesity acute September 01 12:57pm Ovarian cyst, left acute August 192024 12:57pm PCOS (polycystic ovarian syndrome) acute September 01, 2024 12:57pm Metabolic dysfunction-associated steatotic liver disease (MASLD) acute September 05, 2024 7:57am Obesity acute September 05 7:57am PCOS (polycystic ovarian syndrome) acute September 05, 2024 7:57am Steatohepatitis, non-alcoholic acute September 05, 2024 7:57am Vitamin D deficiency acute September 05, 2024 7:57am [facility] Work Phone: 1(486) 523-525106-05-2025 Radiology Diagnostic study note [facility] Imaging Services [address] [place] [address] Transvaginal Non- MR#: [id number] Acct: [id number] Name: JUANITA PAULINO Rep #: [id number] : 2000 F 24 From: Jacob Rodriguez MD PCP: Dr. Tiffany Marks MD Status: REG ER Study:Transvaginal Non- Date of Exam: 07/24/24 Exam# [id number] Ordering Dr: Oren Maldonado DO PROCEDURE: TRANSVAGINAL NON- 07/24/2024 REASON FOR EXAM: ABNORMAL VAGINAL BLEEDING TECHNIQUE: Transvaginal pelvic ultrasound COMPARISON: Ultrasound of 01/19/2024. FINDINGS: Measurements: Uterus: 9.6 x 5.9 x 4.4 cm with a volume of 131 mL Endometrial Thickness: 5.3 mm thickness. Right Ovary: 4.2 x 2.4 x 2.1 cm with a volume of 11.1 mL. Left Ovary: 4.8 x 3.9 x 3.0 cm with a volume of 29.7 mL. A left ovarian cyst is measured at 3.4 x 3.0 x 1.8 cm. No solid component is noted. Uterus: Normal size, myometrial echotexture, and contour. Endometrium: Unremarkable. Right ovary: No abnormality seen. Satisfactory arterial and venous blood flow is noted. Left ovary: Left ovarian cyst. Satisfactory arterial and venous blood flow noted. Other: No free fluid is seen. US/Transvaginal Non- IMPRESSION: 1. Left ovarian cyst. 2. Negative examination, otherwise. Reading Location: [id number] CC: Dr. Tiffany Marks MD; Dr. Zurdo Maldonado DO ~ Technical Cable Jointer: Signed [facility]06-18-2024 Hospital Discharge instructions Patient Education 08/07/2023 12:39:34 Ankle Sprain (Adult) Ankle Sprain (Adult) An ankle sprain is a stretching or tearing of the ligaments that hold the ankle joint together. There are no broken bones. An ankle sprain is a common injury for both children and adults. It happens when the ankle turns, twists, or rolls in an awkward way. This can be caused by a sports injury. Or it can happen from doing something as simple as stepping on an uneven surface. Ligaments are made of tough connective tissue. Normally, ligaments stretch a certain amount and then go back to their normal place. A sprain happens when a ligament is forced to stretch more than thenormal amount. A severe sprain can actually tear the ligaments. If you have a severe sprain, you may have felt or heard something like a pop when you were injured. Ankle sprains are given a grade depending on whether they are mild, moderate, or severe: Grade 1 sprain. A mild sprain with minor stretching and damage to the ligament. Grade 2 sprain. A moderate sprain where the ligament is partly torn. Grade 3 sprain. The most severe kind of sprain. The ligament is completely torn. Most sprains take about 4 to 6 weeks to heal. A severe sprain can take several months to recover. Your healthcare provider may order X-rays to be sure you don t have a fracture, or broken bone. The injured area will feel sore. Swelling and pain may make it hard to walk. You may need crutches if walking is painful. Or your provider may have you use a cast boot or air splint. This will dependon the grade of ankle sprain that you have. Home care For a Grade 1 sprain, use RICE (rest, ice, compression, and elevation): Rest your ankle. Don t walk on it. Ice should be used right away to help control swelling. Place an ice pack over the injured area for20 minutes. Do this every 3 to 6 hours for the first 24 to 48 hours. Keep using ice packs to ease pain and swelling as needed. To make an ice pack, put ice cubes in a plastic bag that seals at the top. Wrap the bag in a clean, thin towel or cloth. Never put ice or an ice pack directly on the skin. The ice pack can be put right on the cast, bandage, or splint. As the ice melts, be careful that thecast, bandage, or splint doesn t get wet. If you have a boot, open it to apply an ice pack, unless told otherwise by your provider. Compression devices help to control swelling. They also keep the ankle from moving and support yourinjured ankle. These devices include dressings, bandages, and wraps. Elevate or raise your ankle above the level of your heart when sitting or lying down. This is very important for the first 48 hours. Follow the RICE guidelines for a Grade 2 sprain. This type of sprain will take longer to heal. Yourprovider may have you wear a splint, cast, or brace to keep your ankle from moving. If you have a Grade 3 sprain, you are at risk for long-term ankle instability. In rare cases, surgery may be needed. Your provider may have you wear a short leg cast or a walking boot for 2 to 3 weeks. After 48 hours, it may be helpful to apply heat for 20 minutes several times a day. You can do thiswith a heating pad or warm compress. Or you may want to go back and forth between using ice and heat. Never apply heat directly to the skin. Always wrap the heating pad or warm compress in a clean, thin towel or cloth. You may use sgbg-iun-onjaknl pain medicine (NSAIDS or nonsteroidal anti- inflammatory drugs) to control pain, unless another pain medicine was prescribed. Talk with your provider before using these medicines if you have chronic liver or kidney disease, or have ever had a stomach ulcer or gastrointestinal bleeding. Follow any rehabilitation exercises your provider gives you. These can help you be more flexible and improve your balance and coordination. This is helpful in preventing long-term ankle problems. Prevention To help prevent ankle sprains, it s important to have good strength, balance, and flexibility. Be sure to: Always warm up before you exercise or do something very active Be careful when walking or running on uneven or cracked surfaces Wear shoes that are in good condition and fit well Listen to your body s signals to slow down when you are in pain or tired Follow-up care Any X-rays you had today don t show any broken bones, breaks, or fractures. Sometimes fractures dont show up on the first X-ray. Bruises and sprains can sometimes hurt as much as a fracture. These injuries can take time to heal completely. If your symptoms don t get better or they get worse, talk with your healthcare provider. You may need a repeat X-ray. Follow up with your healthcare provider, or as advised. Check for any warning signs listed below. When to seek medical advice Call your healthcare provider right away if any of these occur: Fever of 100.4 F (38 C) or higher, or as directed by your healthcare provider Chills The injury doesn t seem to be healing The swelling comes back The cast or splint has a bad smell The plaster cast or splint gets wet or soft The fiberglass cast or splint gets wet and does not dry for 24 hours The pain or swelling increases, or redness appears Your toes become cold, blue, numb, or tingly The skin is discolored (looks blue, purple, or go), has blisters, or is irritated You re-injure your ankle [id number] [employer]. [address] [place] [address]. All rights reserved. This information is not intended as a substitute for professional medical care. Always follow yourhealthcare professional's instructions. Follow Up Care 08/07/2023 11:37:04 With:HARRIET BARAHONA Address: [facility] [facility], [address] [place] [address]- [phone] Business (1) When:2-4 days Comments:Return to ED if symptoms worsen With:MICHELLE MELLO Address: [address] [facility] [place] [address]- [phone] Business (1) When:2-4 days [facility] 06-18-2024 Note Discharge Instructions Thank you for allowing [facility] to assist you with your healthcare needs. The following is importantdischarge information regarding your hospital visit. Diagnosis from Today's Visit Sprain of left ankle What to Do Next Instructions from Your Care Team Discharge Home Equipment - Ordered -- Crutches, 99 month(s), 08/07/23 12:37:00 EDT Post Acute Orders No qualifying data available. You Need to Schedule the Following Appointments Follow Up with HARRIET BARAHONA When:Within 2-4 days Where:[address] [facility], [address] [place] [address]- [phone] Business (1) Additional Information: Return to ED if symptoms worsen Follow Up with MICHELLE MELLO When:Within 2-4 days Where:[address] [facility] [place] [address]- [phone] Business (1) Allergies NKA Medications Please ask your primary doctor or pharmacist before taking any other medication not listed, including over the counter drugs, herbal medications, vitamins and or supplements as they may interact withyour home medications. What How Much When Why Instructions Last Dose Unchanged metFORMIN (MetFORMIN (Eqv-Glucophage XR) 500 mg oral tablet, EXTENDED RELEASE) 1 tab(s) by mouth Two (2) times a day PCOS (polycystic ovary syndrome) of bilateral ovaries Unchanged spironolactone (spironolactone 25 mg oral tablet) 1 tab(s) Unchanged valACYclovir (valACYclovir 1 g oral tablet) 1 tab(s) TAKE 1 TABLET BY MOUTH EVERY DAY Please take this list to your next doctor s visit. Bring all medications you take, including over the counter medications, herbals and other supplements with you to your doctor s visit. Patients and families are reminded to discard old lists and to update any records with all medication providers or retail pharmacies. Education Materials Ankle Sprain (Adult) An ankle sprain is a stretching or tearing of the ligaments that hold the ankle joint together. There are no broken bones. An ankle sprain is a common injury for both children and adults. It happens when the ankle turns, twists, or rolls in an awkward way. This can be caused by a sports injury. Or it can happen from doing something as simple as stepping on an uneven surface. Ligaments are made of tough connective tissue. Normally, ligaments stretch a certain amount and then go back to their normal place. A sprain happens when a ligament is forced to stretch more than thenormal amount. A severe sprain can actually tear the ligaments. If you have a severe sprain, you may have felt or heard something like a pop when you were injured. Ankle sprains are given a grade depending on whether they are mild, moderate, or severe: Grade 1 sprain. A mild sprain with minor stretching and damage to the ligament. Grade 2 sprain. A moderate sprain where the ligament is partly torn. Grade 3 sprain. The most severe kind of sprain. The ligament is completely torn. Most sprains take about 4 to 6 weeks to heal. A severe sprain can take several months to recover. Your healthcare provider may order X-rays to be sure you don t have a fracture, or broken bone. The injured area will feel sore. Swelling and pain may make it hard to walk. You may need crutches if walking is painful. Or your provider may have you use a cast boot or air splint. This will dependon the grade of ankle sprain that you have. Home care For a Grade 1 sprain, use RICE (rest, ice, compression, and elevation): Rest your ankle. Don t walk on it. Ice should be used right away to help control swelling. Place an ice pack over the injured area for20 minutes. Do this every 3 to 6 hours for the first 24 to 48 hours. Keep using ice packs to ease pain and swelling as needed. To make an ice pack, put ice cubes in a plastic bag that seals at the top. Wrap the bag in a clean, thin towel or cloth. Never put ice or an ice pack directly on the skin. The ice pack can be put right on the cast, bandage, or splint. As the ice melts, be careful that thecast, bandage, or splint doesn t get wet. If you have a boot, open it to apply an ice pack, unless told otherwise by your provider. Compression devices help to control swelling. They also keep the ankle from moving and support yourinjured ankle. These devices include dressings, bandages, and wraps. Elevate or raise your ankle above the level of your heart when sitting or lying down. This is very important for the first 48 hours. Follow the RICE guidelines for a Grade 2 sprain. This type of sprain will take longer to heal. Yourprovider may have you wear a splint, cast, or brace to keep your ankle from moving. If you have a Grade 3 sprain, you are at risk for long-term ankle instability. In rare cases, surgery may be needed. Your provider may have you wear a short leg cast or a walking boot for 2 to 3 weeks. After 48 hours, it may be helpful to apply heat for 20 minutes several times a day. You can do thiswith a heating pad or warm compress. Or you may want to go back and forth between using ice and heat. Never apply heat directly to the skin. Always wrap the heating pad or warm compress in a clean, thin towel or cloth. You may use jtpz-hjs-hrdxqfj pain medicine (NSAIDS or nonsteroidal anti- inflammatory drugs) to control pain, unless another pain medicine was prescribed. Talk with your provider before using these medicines if you have chronic liver or kidney disease, or have ever had a stomach ulcer or gastrointestinal bleeding. Follow any rehabilitation exercises your provider gives you. These can help you be more flexible and improve your balance and coordination. This is helpful in preventing long-term ankle problems. Prevention To help prevent ankle sprains, it s important to have good strength, balance, and flexibility. Be sure to: Always warm up before you exercise or do something very active Be careful when walking or running on uneven or cracked surfaces Wear shoes that are in good condition and fit well Listen to your body s signals to slow down when you are in pain or tired Follow-up care Any X-rays you had today don t show any broken bones, breaks, or fractures. Sometimes fractures dont show up on the first X-ray. Bruises and sprains can sometimes hurt as much as a fracture. These injuries can take time to heal completely. If your symptoms don t get better or they get worse, talk with your healthcare provider. You may need a repeat X-ray. Follow up with your healthcare provider, or as advised. Check for any warning signs listed below. When to seek medical advice Call your healthcare provider right away if any of these occur: Fever of 100.4 F (38 C) or higher, or as directed by your healthcare provider Chills The injury doesn t seem to be healing The swelling comes back The cast or splint has a bad smell The plaster cast or splint gets wet or soft The fiberglass cast or splint gets wet and does not dry for 24 hours The pain or swelling increases, or redness appears Your toes become cold, blue, numb, or tingly The skin is discolored (looks blue, purple, or go), has blisters, or is irritated You re-injure your ankle [phone] [employer]. [address] [place] [address]. All rights reserved. This information is not intended as a substitute for professional medical care. Always follow yourhealthcare professional's instructions. Additional Information VACCINATE! IT SAVES LIVES! Members of the community who have not yet received the COVID-19 vaccine and would like to receive it can visit one of [facility] vaccine clinics. There are many vaccine clinic locations within the [facility]. For locations and available times, please visit www.[email or web address].[place].gov/. It is important to note that some COVID mobile vaccine clinics are held outdoors and may be canceled in rainy or stormy conditions. To learn more about pediatric vaccinations (ages 5-11), we invite you to visit the [facility] webpage. [email or web address].[email or web address]/pages/[email or web address]-Lmoyalqcokd-Uoobmumxrr-Qguvm-[email or web address] stions.htmlTo learn more about the COVID-19 vaccine, we invite you to visit the CDC website for a list of frequently asked questions. https://www.cdc.gov/coronavirus/2019-ncov/vaccines/faq.html [facility] Patient Portal Access Instructions: Stay connected with your healthcare team and access your personal medical information anytime with the [facility] Patient Portal. If you would like a full copy of your medical records please contact the [facility] Medical Records Department Sunday through Sunday between 8a.m. and 4:30p.m. Please follow the directions below to access the portal: 1.Access the email account you provided upon registration to the [facility].2.Look for an invitation email from [facility].3.Open the email and access the invitation link: Accept Invitation to [facility]4.Fill in the required denson to create your account. Sign into [email or web address] with your username and password that you created in the above steps to stay up to date. You can then view a summary of results, a summary of your visits, and the ability to download your summaries to your computer or send the information securely to a physician. Remember that your healthcare information is confidential, so carefully consider who you will allow to register on the [facility] Patient Portal for access to your information. You can also access the [facility] Patient Portal on the [employer]. Simply click on Health Records under Chairish and then click on the [employer] logo. HOW TO SAFELY DISPOSE OF PRESCRIPTION MEDICATIONS Please use one of the following methods to safely dispose of your unused medications. 1.Use a drug disposal kit: the drug disposal pouch allows you to safely discard your old and unuseddrugs. Ask your nurse to give you one when you are discharged.2.Visit a local take-back location: Many local pharmacies and police departments have programs that collect old and unwanted prescriptiondrugs. Call your local pharmacy or go to http://Appstores.com.[employer]/5I7Xl0b to find one close to you.3.Make use of household items: Use cat litter or old coffee grounds to dispose medications if other options arenot available. Mix your drugs with these household products, seal them in an airtight container andthrow it into the garbage. Call [facility]: [phone] to be sure your drugs can be disposed of in this way. Some medicines may require a different approach.4.Never flush your medications down the toilet. IF YOU HAVE BEEN PRESCRIBED AN OPIOIDS FOR PAIN If you have been prescribed an opioid (such as hydrocodone, oxycodone or morphine), it is critical to understand the possible side effects and risks of opioid pain medications. Even when taken as directed, opioids can have several side effects including: Tolerance, meaning you might need to take more of a medication for the same pain relief. Nausea, vomiting and/or constipation. Sleepiness, dizziness, dry mouth, confusion, depression or itching. Physical dependence, meaning you have withdrawal symptoms when a medication is stopped ? this can develop within a few days. KNOW YOUR RESPONSIBILITIES It is important to know exactly how much and how often to take the opioid pain medications you are prescribed. Never take opioids in higher amounts or more often than prescribed. Do not combine opioids with alcohol or other drugs that cause drowsiness, such as benzodiazepines, also known as benzos,including diazepam and alprazolam, muscle relaxants or sleep aids. Never sell or share prescriptionopioids. This is illegal. Store opioids in a secure place and out of reach of others (including children, family, friends and visitors). The last page(s) of this document has been signed and retained as a CHART COPY Signatures Patient Education Materials Ankle Sprain (Adult) Medication Leaflets My discharge plan and instructions have been reviewed and explained to me and I,JUANITA PAULINO understand my current condition and have read and understand these discharge instructions. I have received a written copy of the plan/instructions. If I have questions, I am aware that I should contact my doctor. 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 Alignment is within normal limits. Joint spaces are intact. The soft tissues are unremarkable. IMPRESSION: No acute fracture Interpreted by: Kiran Marie MD Preliminary Report By: Kiran Marie MD Electronically signed By Kiran Marie MD Dictated Date: 08/07/2023 12:21:44 PM Prelim Date: 08/07/2023 12:22:15 PM Sign Date: 08/07/2023 12:22:15 PM Ordering Provider: [facility]05-07-2024 Hospital Discharge instructions Patient Education 06/26/2023 14:58:40 Abdominal Pain, Unknown Cause, (Female) Unknown Causes of Abdominal Pain (Female) The exact cause of your belly (abdominal) pain is not clear. This does not mean that this is something to worry about. Everyone likes to know the exact cause of the problem. But sometimes with belly pain, there is no clear-cut cause, and this could be a good thing. The good news is that your symptoms can be treated, and you will feel better. Your condition does not seem serious now. But sometimes the signs of a serious problem may take more time to appear. For this reason, it is important for you to watch for any new symptoms, problems, or worsening of your condition. Over the next few days, the abdominal pain may come and go. Or it may be constant. Other common symptoms can include nausea and vomiting. Sometimes it can be difficult to tell if you feel nauseous. You may just feel bad and not connect that feeling to nausea. Constipation, diarrhea, and a fever maygo along with the pain. The pain may continue even if treated correctly over the following days. Depending on how things go, sometimes the cause can become clear and may need more or different treatment. Additional evaluations, medicines, or tests may also be needed. Home care Your healthcare provider may prescribe medicine for pain, symptoms, or an infection. Follow the healthcare provider's instructions for taking these medicines. General care Rest as much as you can until your next exam. No strenuous activities. Try to find positions that ease discomfort. A small pillow placed on the abdomen may help relieve pain. Something warm on your abdomen (such as a heating pad) may help, but be careful not to burn yourself. Diet Don t force yourself to eat, especially if having cramps, vomiting, or diarrhea. Water is important so you don't get dehydrated. Soup may also be good. Sports drinks may also help,especially if they are not too acidic. Don't drink sugary drinks as this can make things worse. Take liquids in small amounts. Don t guzzle them. Caffeine sometimes makes the pain and cramping worse. Don t take dairy products if you have vomiting or diarrhea. Don't eat large amounts at a time. Wait a few minutes between bites. Eat a diet low in fiber (called a low-residue diet). Foods allowed include refined breads, white rice, fruit and vegetable juices without pulp, tender meats. These foods will pass more easily throughthe intestine. Don t have whole-grain foods, whole fruits and vegetables, meats, seeds and nuts, fried or fatty foods, dairy, alcohol and spicy foods until your symptoms go away. Follow-up care Follow up with your healthcare provider, or as advised, if your pain does not begin to improve in the next 24 hours. Call 911 Call 911 if any of these occur: Trouble breathing Confusion Fainting or loss of consciousness Rapid heart rate Seizure When to seek medical advice Call your healthcare provider right away if any of these occur: Pain gets worse or moves to the right lower abdomen New or worsening vomiting or diarrhea Swelling of the abdomen Unable to pass stool for more than 3 days Fever of 100.4 F (38 C) or higher, or as directed by your healthcare provider. Blood in vomit or bowel movements (dark red or black color) Yellow color of eyes and skin (jaundice) Weakness, dizziness Chest, arm, back, neck, or jaw pain Unexpected vaginal bleeding or missed period Can't keep down liquids or water and you are getting dehydrated 6033-[address] [employer] [place] [address]. All rights reserved. This information is not intended as a substitute for professional medical care. Always follow yourhealthcare professional's instructions. Follow Up Care 06/26/2023 12:01:13 With:Go to emergency room if symptoms worsen Address:Unknown When:2-4 days With:MICHELLE MELLO APRN-[employer] LIC[employer]ED PRACTICAL NURSE Address: [address] [place] [address] [place] [address] [phone] When:2-4 days [facility] 05-07-2024 Emergency department Discharge summary Discharge Instructions Thank you for allowing [facility] to assist you with your healthcare needs. The following is importantdischarge information regarding your hospital visit. Diagnosis from Today's Visit Abdominal pain Diarrhea Nausea and vomiting Right upper quadrant pain What to Do Next Instructions from Your Care Team please continue fluid intake and slowly advance diet as tolerated. return to the ED as discussed for acute severe worsening of pain or if you are unable to tolerate intake. please follow up with pcp and discuss possible HIDA scan or GI follow up. Discharge Return to Work, School, or Sports (Return to Work, School, or Sports) - Ordered -- 06/28/23, May return to: work, 06/26/23 14:57:00 EDT Post Acute Orders No qualifying data available. You Need to Schedule the Following Appointments Follow Up with Go to emergency room if symptoms worsen When Within 2-4 days Follow Up with MICHELLE MELLO When Within 2-4 days Where: [address] [place] [address] [place] [address] [phone] Allergies NKA Medications Please ask your primary doctor or pharmacist before taking any other medication not listed, including over the counter drugs, herbal medications, vitamins and or supplements as they may interact withyour home medications. What How Much When Why Instructions Last Dose New dicyclomine (dicyclomine 10 mg oral capsule) 1 cap by mouth Four (4) times a day Duration: 7 Days Printed Prescription Unchanged metFORMIN (MetFORMIN (Eqv-Glucophage XR) 500 mg oral tablet, EXTENDED RELEASE) 1 tab(s) by mouth Two (2) times a day PCOS (polycystic ovary syndrome) of bilateral ovaries Unchanged ondansetron (ondansetron 4 mg oral tablet, disintegrating) 1 tab(s) by mouth Every 6 hours as needed for as needed for nausea/vomiting Nausea with vomiting Duration: 3 Days Unchanged spironolactone (spironolactone 25 mg oral tablet) 1 tab(s) Unchanged valACYclovir (valACYclovir 1 g oral tablet) 1 tab(s) TAKE 1 TABLET BY MOUTH EVERY DAY Please take this list to your next doctor s visit. Bring all medications you take, including over the counter medications, herbals and other supplements with you to your doctor s visit. Patients and families are reminded to discard old lists and to update any records with all medication providers or retail pharmacies. Education Materials Unknown Causes of Abdominal Pain (Female) The exact cause of your belly (abdominal) pain is not clear. This does not mean that this is something to worry about. Everyone likes to know the exact cause of the problem. But sometimes with belly pain, there is no clear-cut cause, and this could be a good thing. The good news is that your symptoms can be treated, and you will feel better. Your condition does not seem serious now. But sometimes the signs of a serious problem may take more time to appear. For this reason, it is important for you to watch for any new symptoms, problems, or worsening of your condition. Over the next few days, the abdominal pain may come and go. Or it may be constant. Other common symptoms can include nausea and vomiting. Sometimes it can be difficult to tell if you feel nauseous. You may just feel bad and not connect that feeling to nausea. Constipation, diarrhea, and a fever maygo along with the pain. The pain may continue even if treated correctly over the following days. Depending on how things go, sometimes the cause can become clear and may need more or different treatment. Additional evaluations, medicines, or tests may also be needed. Home care Your healthcare provider may prescribe medicine for pain, symptoms, or an infection. Follow the healthcare provider's instructions for taking these medicines. General care Rest as much as you can until your next exam. No strenuous activities. Try to find positions that ease discomfort. A small pillow placed on the abdomen may help relieve pain. Something warm on your abdomen (such as a heating pad) may help, but be careful not to burn yourself. Diet Don t force yourself to eat, especially if having cramps, vomiting, or diarrhea. Water is important so you don't get dehydrated. Soup may also be good. Sports drinks may also help,especially if they are not too acidic. Don't drink sugary drinks as this can make things worse. Take liquids in small amounts. Don t guzzle them. Caffeine sometimes makes the pain and cramping worse. Don t take dairy products if you have vomiting or diarrhea. Don't eat large amounts at a time. Wait a few minutes between bites. Eat a diet low in fiber (called a low-residue diet). Foods allowed include refined breads, white rice, fruit and vegetable juices without pulp, tender meats. These foods will pass more easily throughthe intestine. Don t have whole-grain foods, whole fruits and vegetables, meats, seeds and nuts, fried or fatty foods, dairy, alcohol and spicy foods until your symptoms go away. Follow-up care Follow up with your healthcare provider, or as advised, if your pain does not begin to improve in the next 24 hours. Call 911 Call 911 if any of these occur: Trouble breathing Confusion Fainting or loss of consciousness Rapid heart rate Seizure When to seek medical advice Call your healthcare provider right away if any of these occur: Pain gets worse or moves to the right lower abdomen New or worsening vomiting or diarrhea Swelling of the abdomen Unable to pass stool for more than 3 days Fever of 100.4 F (38 C) or higher, or as directed by your healthcare provider. Blood in vomit or bowel movements (dark red or black color) Yellow color of eyes and skin (jaundice) Weakness, dizziness Chest, arm, back, neck, or jaw pain Unexpected vaginal bleeding or missed period Can't keep down liquids or water and you are getting dehydrated 9539-5495 [employer]. [address] [place] [address]. All rights reserved. This information is not intended as a substitute for professional medical care. Always follow yourhealthcare professional's instructions. Additional Information VACCINATE! IT SAVES LIVES! Members of the community who have not yet received the COVID-19 vaccine and would like to receive it can visit one of [facility] vaccine clinics. There are many vaccine clinic locations within the [facility]. For locations and available times, please visit [email or web address] It is important to note that some COVID mobile vaccine clinics are held outdoors and may be canceled in rainy or stormy conditions. To learn more about pediatric vaccinations (ages 5-11), we invite you to visit the [facility] webpage. [email or web address]/[email or web address] [email or web address] learn more about the COVID-19 vaccine, we invite you to visit the CDC website for a list of frequently asked questions. https://www.cdc.gov/coronavirus/2019-ncov/vaccines/faq.html [facility] Patient Portal Access Instructions: Stay connected with your healthcare team and access your personal medical information anytime with the [facility] Patient Portal. If you would like a full copy of your medical records please contact the [facility] Medical Records Department Sunday through Sunday between 8a.m. and 4:30p.m. Please follow the directions below to access the portal: 1.Access the email account you provided upon registration to the [facility].2.Look for an invitation email from [facility].3.Open the email and access the invitation link: Accept Invitation to [facility]4.Fill in the required denson to create your account. Sign into [email or web address] with your username and password that you created in the above steps to stay up to date. You can then view a summary of results, a summary of your visits, and the ability to download your summaries to your computer or send the information securely to a physician. Remember that your healthcare information is confidential, so carefully consider who you will allow to register on the [facility] Patient Portal for access to your information. You can also access the [facility] Patient Portal on the [employer]. Simply click on Health Records under Chairish and then click on the [employer] logo. HOW TO SAFELY DISPOSE OF PRESCRIPTION MEDICATIONS Please use one of the following methods to safely dispose of your unused medications. 1.Use a drug disposal kit: the drug disposal pouch allows you to safely discard your old and unuseddrugs. Ask your nurse to give you one when you are discharged.2.Visit a local take-back location: Many local pharmacies and police departments have programs that collect old and unwanted prescriptiondrugs. Call your local pharmacy or go to http://Appst[employer].com.[employer]/7T3Bu2r to find one close to you.3.Make use of household items: Use cat litter or old coffee grounds to dispose medications if other options arenot available. Mix your drugs with these household products, seal them in an airtight container andthrow it into the garbage. Call [facility]: [phone] to be sure your drugs can be disposed of in this way. Some medicines may require a different approach.4.Never flush your medications down the toilet. IF YOU HAVE BEEN PRESCRIBED AN OPIOIDS FOR PAIN If you have been prescribed an opioid (such as hydrocodone, oxycodone or morphine), it is critical to understand the possible side effects and risks of opioid pain medications. Even when taken as directed, opioids can have several side effects including: Tolerance, meaning you might need to take more of a medication for the same pain relief. Nausea, vomiting and/or constipation. Sleepiness, dizziness, dry mouth, confusion, depression or itching. Physical dependence, meaning you have withdrawal symptoms when a medication is stopped ? this can develop within a few days. KNOW YOUR RESPONSIBILITIES It is important to know exactly how much and how often to take the opioid pain medications you are prescribed. Never take opioids in higher amounts or more often than prescribed. Do not combine opioids with alcohol or other drugs that cause drowsiness, such as benzodiazepines, also known as benzos,including diazepam and alprazolam, muscle relaxants or sleep aids. Never sell or share prescriptionopioids. This is illegal. Store opioids in a secure place and out of reach of others (including children, family, friends and visitors). The last page(s) of this document has been signed and retained as a CHART COPY Signatures Patient Education Materials Abdominal Pain, Unknown Cause, (Female) Medication Leaflets My discharge plan and instructions have been reviewed and explained to me and I,JUANITA PAULINO understand my current condition and have read and understand these discharge instructions. I have received a written copy of the plan/instructions. If I have questions, I am aware that I should contact my doctor. Patient/Rail Layer Signature: Date/Time: Relationship to Patient: Witness Name/Signature: Date/Time: [facility]05-07-2024 Note ORIGINAL EXAMINATION: COMPLETE ABDOMINAL ULTRASOUND06/26/2023 1:33 pm TECHNIQUE: Multiple real time sonographic images of the abdomen were obtained assessing go-scale appearance and color Doppler. COMPARISON: CT abdomen pelvis 04/03/2023, ultrasound dated 04/03/2023 HISTORY: ORDERING SYSTEM PROVIDED HISTORY: Reason for Exam: RUQ abdominal pain FINDINGS: Suboptimal exam secondary to patient body habitus. PANCREAS: Partially obscured by bowel gas. The visualized portions of the pancreas are normal in size and echogenicity. LIVER: The visualized liver is normal in size and contour with no hepatic mass identified. Mildly increased hepatic parenchymal echogenicity is noted. GALLBLADDER/BILARY: Negative sonographic Taylor's sign. The visualized gallbladder is unremarkable without pericholecystic fluid, wall thickening or stones. Nointrahepatic biliary ductal dilatation. CBD measures 4 mm. SPLEEN: The visualized spleen is normal in size and echogenicity. KIDNEYS: The visualized kidneys shows no pelvicaliectasis. VASCULATURE: Suboptimal visualization of the aorta and IVC due to patient body habitus and overlying bowel gas. ASCITES: None. IMPRESSION: No acute sonographic abnormality. Mildly increased hepatic parenchymal echogenicity suggestive of hepatic steatosis. I have personally reviewed the images of this examination and agree with the resident's findings and interpretation. Interpreted by: Alex Tejada DO Preliminary Report By: Terry Molina Electronically signed By Alex Tejada DO Dictated Date: 06/26/2023 1:43:35 PM Prelim Date: 06/26/2023 2:29:44 PM Sign Date: 06/26/2023 2:29:44 PM Ordering Provider: [facility]05-06-2024 Evaluation + Plan note Future Scheduled Tests Laboratory* Stool Gastrointestinal Panel 06/25/23 [facility] 03-27-2024 Hospital Discharge instructions Patient Education 05/16/2023 17:57:52 Dizziness, Uncertain Cause Dizziness (Uncertain Cause) Dizziness is a common symptom. It may be described as lightheadedness, spinning, or feeling like you are going to faint. Dizziness can have many causes. Be sure to tell the healthcare provider about: All medicines you take, including prescription, [id number], herbs, and supplements Any other symptoms you have Any health problems you are being treated for Any past major health problems you've had, such as a heart attack, balance issues, hearing problems, or blood pressure problems Anything that causes the dizziness to get worse or better Today's exam did not show an exact cause for your dizziness. Other tests may be needed. Follow up with your healthcare provider. Home care Dizziness that occurs with sudden standing may be a sign of mild dehydration. Drink extra fluids for the next few days. If you recently started a new medicine, stopped a medicine, or had the dose of a current medicine changed, talk with the prescribing healthcare provider. Your medicine plan may need adjustment. If dizziness lasts more than a few seconds, sit or lie down until it passes. This may help prevent injury in case you pass out. Get up slowly when you feel better. Don't drive or use power tools or dangerous equipment until you have had no dizziness for at least 48 hours. Follow-up care Follow up with your healthcare provider for further evaluation within the next 7 days or as advised. When to seek medical advice Call your healthcare provider for any of the following: Worsening of symptoms or new symptoms Passing out or seizure Repeated vomiting Headache Palpitations (the sense that your heart is fluttering or beating fast or hard) Shortness of breath Blood in vomit or stool (black or red color) Weakness of an arm or leg or 1 side of the face Vision or hearing changes Trouble walking or speaking Chest, arm, neck, back, or jaw pain 2499-5[address] [employer] [place] [address]. All rights reserved. This information is not intended as a substitute for professional medical care. Always follow yourhealthcare professional's instructions. Follow Up Care 05/16/2023 16:41:43 With:MICHELLE MELLO Address: [address] [place] [phone] When:2-4 days [facility] 03-27-2024 Note Discharge Instructions Thank you for allowing [facility] to assist you with your healthcare needs. The following is importantdischarge information regarding your hospital visit. Diagnosis from Today's Visit Dizziness Dizziness What to Do Next Instructions from Your Care Team No qualifying data available. Post Acute Orders No qualifying data available. You Need to Schedule the Following Appointments Follow Up with MICHELLE MELLO When Within 2-4 days Where: [address] [place] [phone] Allergies NKA Medications Please ask your primary doctor or pharmacist before taking any other medication not listed, including over the counter drugs, herbal medications, vitamins and or supplements as they may interact withyour home medications. What How Much When Why Instructions Last Dose Unchanged metFORMIN (MetFORMIN (Eqv-Glucophage XR) 500 mg oral tablet, EXTENDED RELEASE) 1 tab(s) by mouth Two (2) times a day PCOS (polycystic ovary syndrome) of bilateral ovaries Unchanged spironolactone (spironolactone 25 mg oral tablet) 1 tab(s) by mouth Two (2) times a day PCOS (polycystic ovary syndrome) of bilateral ovaries Hirsutism Take with food Unchanged valACYclovir (valACYclovir 1 g oral tablet) 1 tab(s) TAKE 1 TABLET BY MOUTH EVERY DAY Please take this list to your next doctor s visit. Bring all medications you take, including over the counter medications, herbals and other supplements with you to your doctor s visit. Patients and families are reminded to discard old lists and to update any records with all medication providers or retail pharmacies. Education Materials Dizziness (Uncertain Cause) Dizziness is a common symptom. It may be described as lightheadedness, spinning, or feeling like you are going to faint. Dizziness can have many causes. Be sure to tell the healthcare provider about: All medicines you take, including prescription, [id number]-fzvezre, herbs, and supplements Any other symptoms you have Any health problems you are being treated for Any past major health problems you've had, such as a heart attack, balance issues, hearing problems, or blood pressure problems Anything that causes the dizziness to get worse or better Today's exam did not show an exact cause for your dizziness. Other tests may be needed. Follow up with your healthcare provider. Home care Dizziness that occurs with sudden standing may be a sign of mild dehydration. Drink extra fluids for the next few days. If you recently started a new medicine, stopped a medicine, or had the dose of a current medicine changed, talk with the prescribing healthcare provider. Your medicine plan may need adjustment. If dizziness lasts more than a few seconds, sit or lie down until it passes. This may help prevent injury in case you pass out. Get up slowly when you feel better. Don't drive or use power tools or dangerous equipment until you have had no dizziness for at least 48 hours. Follow-up care Follow up with your healthcare provider for further evaluation within the next 7 days or as advised. When to seek medical advice Call your healthcare provider for any of the following: Worsening of symptoms or new symptoms Passing out or seizure Repeated vomiting Headache Palpitations (the sense that your heart is fluttering or beating fast or hard) Shortness of breath Blood in vomit or stool (black or red color) Weakness of an arm or leg or 1 side of the face Vision or hearing changes Trouble walking or speaking Chest, arm, neck, back, or jaw pain 6105-4278 [employer]. [address] [place] [address], [place] [address]. All rights reserved. This information is not intended as a substitute for professional medical care. Always follow yourhealthcare professional's instructions. Additional Information VACCINATE! IT SAVES LIVES! Members of the community who have not yet received the COVID-19 vaccine and would like to receive it can visit one of [facility] vaccine clinics. There are many vaccine clinic locations within the [facility]. For locations and available times, please visit [email or web address] It is important to note that some COVID mobile vaccine clinics are held outdoors and may be canceled in rainy or stormy conditions. To learn more about pediatric vaccinations (ages 5-11), we invite you to visit the [facility] webpage. [email or web address]/[email or web address] learn more about the COVID-19 vaccine, we invite you to visit the CDC website for a list of frequently asked questions. https://www.cdc.gov/coronavirus/2019-ncov/vaccines/faq.html [facility] Patient Portal Access Instructions: Stay connected with your healthcare team and access your personal medical information anytime with the [facility] Patient Portal. If you would like a full copy of your medical records please contact the [facility] Medical Records Department Sunday through Sunday between 8a.m. and 4:30p.m. Please follow the directions below to access the portal: 1.Access the email account you provided upon registration to the hospital.2.Look for an invitation email from [facility].3.Open the email and access the invitation link: Accept Invitation to [facility].Fill in the required denson to create your account. Sign into [email or web address] with your username and password that you created in the above steps to stay up to date. You can then view a summary of results, a summary of your visits, and the ability to download your summaries to your computer or send the information securely to a physician. Remember that your healthcare information is confidential, so carefully consider who you will allow to register on the [facility] Patient Portal for access to your information. You can also access the [facility] Patient Portal on the [employer] perez. Simply click on Health Records under Chairish and then click on the [employer] logo. HOW TO SAFELY DISPOSE OF PRESCRIPTION MEDICATIONS Please use one of the following methods to safely dispose of your unused medications. 1.Use a drug disposal kit: the drug disposal pouch allows you to safely discard your old and unuseddrugs. Ask your nurse to give you one when you are discharged.2.Visit a local take-back location: Many local pharmacies and police departments have programs that collect old and unwanted prescriptiondrugs. Call your local pharmacy or go to http://Appstores.com.[employer]/7A0Pg4d to find one close to you.3.Make use of household items: Use cat litter or old coffee grounds to dispose medications if other options arenot available. Mix your drugs with these household products, seal them in an airtight container andthrow it into the garbage. Call [facility]: [phone] to be sure your drugs can be disposed of in this way. Some medicines may require a different approach.4.Never flush your medications down the toilet. IF YOU HAVE BEEN PRESCRIBED AN OPIOIDS FOR PAIN If you have been prescribed an opioid (such as hydrocodone, oxycodone or morphine), it is critical to understand the possible side effects and risks of opioid pain medications. Even when taken as directed, opioids can have several side effects including: Tolerance, meaning you might need to take more of a medication for the same pain relief. Nausea, vomiting and/or constipation. Sleepiness, dizziness, dry mouth, confusion, depression or itching. Physical dependence, meaning you have withdrawal symptoms when a medication is stopped ? this can develop within a few days. KNOW YOUR RESPONSIBILITIES It is important to know exactly how much and how often to take the opioid pain medications you are prescribed. Never take opioids in higher amounts or more often than prescribed. Do not combine opioids with alcohol or other drugs that cause drowsiness, such as benzodiazepines, also known as benzos,including diazepam and alprazolam, muscle relaxants or sleep aids. Never sell or share prescriptionopioids. This is illegal. Store opioids in a secure place and out of reach of others (including children, family, friends and visitors). The last page(s) of this document has been signed and retained as a CHART COPY Signatures Patient Education Materials Dizziness, Uncertain Cause Medication Leaflets My discharge plan and instructions have been reviewed and explained to me and I,JUANITA PAULINO understand my current condition and have read and understand these discharge instructions. I have received a written copy of the plan/instructions. If I have questions, I am aware that I should contact my doctor. Patient/Rail Layer Signature: Date/Time: Relationship to Patient: Witness Name/Signature: Date/Time: [facility]03-27-2024 NoteSinus rhythm Borderline intraventricular conduction delay Electronic Signature: IVANA LANGE MD 05/16/2023 17:17:25[facility] 02-13-2024 Hospital Discharge instructions Patient Education 04/03/2023 17:50:45 Abdominal Pain Abdominal Pain Abdominal pain is pain in the stomach or belly area. Everyone has this pain from time to time. In many cases it goes away on its own. But abdominal pain can sometimes be due to a serious problem, such as appendicitis. So it s important to know when to get help. Causes of abdominal pain There are many possible causes of abdominal pain. Common causes in adults include: Constipation, diarrhea, or gas Stomach acid flowing back up into the esophagus (acid reflux or heartburn) Severe acid reflux, called GERD (gastroesophageal reflux disease) A sore in the lining of the stomach or small intestine (peptic ulcer) Inflammation of the gallbladder, liver, or pancreas Gallstones or kidney stones Appendicitis Intestinal blockage An internal organ pushing through a muscle or other tissue (hernia) Urinary tract infections In women, menstrual cramps, fibroids, ovarian cysts, pelvic inflammatory disease, or endometriosis Inflammation or infection of the intestines, including Crohn's disease and ulcerative colitis Irritable bowel syndrome Diagnosing the cause of abdominal pain Your healthcare provider will give you a physical exam help find the cause of your pain. If needed,you will have tests. Belly pain has many possible causes. So it can be hard to find the reason for your pain. Giving details about your pain can help. Tell your provider where and when you feel the pain, and what makes it better or worse. Also let your provider know if you have other symptoms such as: Fever Tiredness Upset stomach (nausea) Vomiting Changes in bathroom habits Blood in the stool or black, tarry stool Weight loss that you can't explain (involuntary weight loss?) Also report any family history of stomach or intestinal problems, or cancers. Tell your provider about all your alcohol use and drug use. Tell your provider about all medicines you use, including herbs, vitamins, and supplements. Treating abdominal pain Some causes of pain need emergency medical treatment right away. These include appendicitis or a bowel blockage. Other problems can be treated with rest, fluids, or medicines. Your healthcare provider can give you specific instructions for treatment or self-care based on what is causing your pain. If you have vomiting or diarrhea, sip water or other clear fluids. When you are ready to eat solid foods again, start with small amounts of wqsk-sl-irkbzo, low- fat foods. These include apple sauce, toast, or crackers. When to get medical care Call 911 or go to the hospital right away if you: Can t pass stool and are vomiting Are vomiting blood or have bloody diarrhea or black, tarry diarrhea Have chest, neck, or shoulder pain Feel like you might pass out Have pain in your shoulder blades with nausea Have sudden, severe belly pain Have new, severe pain unlike any you have felt before Have a belly that is rigid, hard, and hurts to touch Call your healthcare provider if you have: Pain for more than 5 days Bloating for more than 2 days Diarrhea for more than 5 days A fever of 100.4 F (38 C) or higher, or as directed by your healthcare provider Pain that gets worse Weight loss for no reason Continued lack of appetite Blood in your stool How to prevent abdominal pain Here are some tips to help prevent abdominal pain: Eat smaller amounts of food at each meal. Don't eat greasy, fried, or other high-fat foods. Don't eat foods that give you gas. Exercise regularly. Drink plenty of fluids. To help prevent GERD symptoms: Quit smoking. Reduce alcohol and foods that increase stomach acid. Don't use aspirin or nann-olg-quqqwil pain and fever medicines, if possible. This includes nonsteroidal anti-inflammatory drugs (NSAIDs). Lose excess weight. Finish eating at least 2 hours before you go to bed or lie down. Raise the head of your bed. 3380-2867 [employer]. [address] [place] [address]. All rights reserved. This information is not intended as a substitute for professional medical care. Always follow yourhealthcare professional's instructions. Follow Up Care 04/03/2023 14:09:03 With:JERROD RUANO DO Address: [address] [place] [phone] When:2-4 days [facility] 02-13-2024 Note Discharge Instructions Thank you for allowing [facility] to assist you with your healthcare needs. The following is importantdischarge information regarding your hospital visit. Diagnosis from Today's Visit Abdominal pain Abdominal pain What to Do Next Instructions from Your Care Team No qualifying data available. Post Acute Orders No qualifying data available. You Need to Schedule the Following Appointments Follow Up with JERROD RUANO DO When Within 2-4 days Where: [address] [place] [phone] Allergies NKA Medications Please ask your primary doctor or pharmacist before taking any other medication not listed, including over the counter drugs, herbal medications, vitamins and or supplements as they may interact [facility]. What How Much When Why Instructions Last Dose New ondansetron (Zofran 4 mg oral tablet) 1 tab(s) by mouth Every 8 hours as needed for Nausea/Vomiting Printed Prescription Unchanged metFORMIN (MetFORMIN (Eqv-Glucophage XR) 500 mg oral tablet, EXTENDED RELEASE) 1 tab(s) by mouth Once a day PCOS (polycystic ovary syndrome) of bilateral ovaries Unchanged spironolactone (spironolactone 25 mg oral tablet) 1 tab(s) by mouth Once a day PCOS (polycystic ovary syndrome) of bilateral ovaries Hirsutism Take with food Unchanged valACYclovir (valACYclovir 1 g oral tablet) 1 tab(s) by mouth Once a day Duration: 30 Days Please take this list to your next doctor s visit. Bring all medications you take, including over the counter medications, herbals and other supplements with you to your doctor s visit. Patients and families are reminded to discard old lists and to update any records with all medication providers or retail pharmacies. Medication Leaflets ondansetron (oral) (on NINFA se saran) What is the most important information I should know about ondansetron? You should not use ondansetron if you are also using apomorphine (Apokyn). What is ondansetron? Ondansetron blocks the actions of chemicals in the body that can trigger nausea and vomiting. Ondansetron is used to prevent nausea and vomiting that may be caused by surgery, cancer chemotherapy, or radiation treatment. Ondansetron may be used for purposes not listed in this medication guide. What should I discuss with my health care provider before taking ondansetron? You should not use ondansetron if: you are also using apomorphine (Apokyn); or you are allergic to ondansetron or similar medicines (dolasetron, granisetron, palonosetron). To make sure ondansetron is safe for you, tell your doctor if you have: liver disease; an electrolyte imbalance (such as low levels of potassium or magnesium in your blood); congestive heart failure, slow heartbeats; a personal or family history of long QT syndrome; or a blockage in your digestive tract (stomach or intestines). Ondansetron is not expected to harm an unborn baby. Tell your doctor if you are . It is not known whether ondansetron passes into breast milk or if it could harm a nursing baby. Tell your doctor if you are breast-feeding a baby. Ondansetron is not approved for use by anyone younger than 4 years old. Ondansetron orally disintegrating tablets may contain phenylalanine. Tell your doctor if you have phenylketonuria (PKU). How should I take ondansetron? Follow all directions on your prescription label. Do not take this medicine in larger or smaller amounts or for longer than recommended. Ondansetron can be taken with or without food. The first dose of ondansetron is usually taken before the start of your surgery, chemotherapy, or radiation treatment. Follow your doctor's dosing instructions very carefully. Take the ondansetron regular tablet with a full glass of water. To take the orally disintegrating tablet (Zofran ODT): Keep the tablet in its blister pack until you are ready to take it. Open the package and peel back the foil. Do not push a tablet through the foil or you may damage the tablet. Use dry hands to remove the tablet and place it in your mouth. Do not swallow the tablet whole. Allow it to dissolve in your mouth without chewing. Swallow several times as the tablet dissolves. To use ondansetron oral soluble film (strip) (Zuplenz): Keep the strip in the foil pouch until you are ready to use the medicine. Using dry hands, remove the strip and place it on your tongue. It will begin to dissolve right away. Do not swallow the strip whole. Allow it to dissolve in your mouth without chewing. Swallow several times after the strip dissolves. If desired, you may drink liquid to help swallow the dissolved strip. Wash your hands after using Zuplenz. Measure liquid medicine with the dosing syringe provided, or with a special dose-measuring spoon ormedicine cup. If you do not have a dose-measuring device, ask your pharmacist for one. Store at room temperature away from moisture, heat, and light. Store liquid medicine in an upright position. What happens if I miss a dose? Take the missed dose as soon as you remember. Skip the missed dose if it is almost time for your next scheduled dose. Do not take extra medicine to make up the missed dose. What happens if I overdose? Seek emergency medical attention or call the Poison Help line at . Overdose symptoms may include sudden loss of vision, severe constipation, feeling light-headed, or fainting. What should I avoid while taking ondansetron? Ondansetron may impair your thinking or reactions. Be careful if you drive or do anything that requires you to be alert. What are the possible side effects of ondansetron? Get emergency medical help if you have signs of an allergic reaction: rash, hives; fever, chills, difficult breathing; swelling of your face, lips, tongue, or throat. Call your doctor at once if you have: severe constipation, stomach pain, or bloating; headache with chest pain and severe dizziness, fainting, fast or pounding heartbeats; fast or pounding heartbeats; jaundice (yellowing of the skin or eyes); blurred vision or temporary vision loss (lasting from only a few minutes to several hours); high levels of serotonin in the body--agitation, hallucinations, fever, fast heart rate, overactivereflexes, nausea, vomiting, diarrhea, loss of coordination, fainting. Common side effects may include: diarrhea or constipation; headache; drowsiness; or tired feeling. This is not a complete list of side effects and others may occur. Call your doctor for medical advice about side effects. You may report side effects to FDA at 5-748-YNU-6689. What other drugs will affect ondansetron? Ondansetron can cause a serious heart problem, especially if you use certain medicines at the same time, including antibiotics, antidepressants, heart rhythm medicine, antipsychotic medicines, and medicines to treat cancer, malaria, HIV or AIDS. Tell your doctor about all medicines you use, and those you start or stop using during your treatment with ondansetron. Taking ondansetron while you are using certain other medicines can cause high levels of serotonin to build up in your body, a condition called 'serotonin syndrome,' which can be fatal. Tell your doctor if you also use: medicine to treat depression; medicine to treat a psychiatric disorder; a narcotic (opioid) medication; or medicine to prevent nausea and vomiting. This list is not complete and many other drugs can interact with ondansetron. This includes prescription and wzmr-sok-kwrpaaq medicines, vitamins, and herbal products. Give a list of all your medicines to any healthcare provider who treats you. Where can I get more information? Your pharmacist can provide more information about ondansetron. Remember, keep this and all other medicines out of the reach of children, never share your medicines with others, and use this medication only for the indication prescribed. Every effort has been made to ensure that the information provided by [employer]. ('[employer]') is accurate, up-to-date, and complete, but no guarantee is made to that effect. Drug information contained herein may be time sensitive. [employer] information has been compiled for use by healthcare practitioners and consumers in the [place] and therefore [employer] does not warrant that uses outside of the [place] are appropriate, unless specifically indicated otherwise. [employer]s drug information does not endorse drugs, diagnose patients or recommend therapy. [employer]s drug information isan informational resource designed to assist licensed healthcare practitioners in caring for their p atients and/or to serve consumers viewing this service as a supplement to, and not a substitute for, the expertise, skill, knowledge and judgment of healthcare practitioners. The absence of a warningfor a given drug or drug combination in no way should be construed to indicate that the drug or drug combination is safe, effective or appropriate for any given patient. [employer] does not assume any responsibility for any aspect of healthcare administered with the aid of information [employer] provides. The information contained herein is not intended to cover all possible uses, directions, precautions, warnings, drug interactions, allergic reactions, or adverse effects. If you have questions about the drugs you are taking, check with your doctor, nurse or pharmacist. Copyright 8368-7218 [employer]. Version: 16.. Revision Date: 09/21/2022. Education Materials Abdominal Pain Abdominal pain is pain in the stomach or belly area. Everyone has this pain from time to time. In many cases it goes away on its own. But abdominal pain can sometimes be due to a serious problem, such as appendicitis. So it s important to know when to get help. Causes of abdominal pain There are many possible causes of abdominal pain. Common causes in adults include: Constipation, diarrhea, or gas Stomach acid flowing back up into the esophagus (acid reflux or heartburn) Severe acid reflux, called GERD (gastroesophageal reflux disease) A sore in the lining of the stomach or small intestine (peptic ulcer) Inflammation of the gallbladder, liver, or pancreas Gallstones or kidney stones Appendicitis Intestinal blockage An internal organ pushing through a muscle or other tissue (hernia) Urinary tract infections In women, menstrual cramps, fibroids, ovarian cysts, pelvic inflammatory disease, or endometriosis Inflammation or infection of the intestines, including Crohn's disease and ulcerative colitis Irritable bowel syndrome Diagnosing the cause of abdominal pain Your healthcare provider will give you a physical exam help find the cause of your pain. If needed,you will have tests. Belly pain has many possible causes. So it can be hard to find the reason for your pain. Giving details about your pain can help. Tell your provider where and when you feel the pain, and what makes it better or worse. Also let your provider know if you have other symptoms such as: Fever Tiredness Upset stomach (nausea) Vomiting Changes in bathroom habits Blood in the stool or black, tarry stool Weight loss that you can't explain (involuntary weight loss?) Also report any family history of stomach or intestinal problems, or cancers. Tell your provider about all your alcohol use and drug use. Tell your provider about all medicines you use, including herbs, vitamins, and supplements. Treating abdominal pain Some causes of pain need emergency medical treatment right away. These include appendicitis or a bowel blockage. Other problems can be treated with rest, fluids, or medicines. Your healthcare provider can give you specific instructions for treatment or self-care based on what is causing your pain. If you have vomiting or diarrhea, sip water or other clear fluids. When you are ready to eat solid foods again, start with small amounts of aefi-mf-lcgggc, low- fat foods. These include apple sauce, toast, or crackers. When to get medical care Call 911 or go to the hospital right away if you: Can t pass stool and are vomiting Are vomiting blood or have bloody diarrhea or black, tarry diarrhea Have chest, neck, or shoulder pain Feel like you might pass out Have pain in your shoulder blades with nausea Have sudden, severe belly pain Have new, severe pain unlike any you have felt before Have a belly that is rigid, hard, and hurts to touch Call your healthcare provider if you have: Pain for more than 5 days Bloating for more than 2 days Diarrhea for more than 5 days A fever of 100.4 F (38 C) or higher, or as directed by your healthcare provider Pain that gets worse Weight loss for no reason Continued lack of appetite Blood in your stool How to prevent abdominal pain Here are some tips to help prevent abdominal pain: Eat smaller amounts of food at each meal. Don't eat greasy, fried, or other high-fat foods. Don't eat foods that give you gas. Exercise regularly. Drink plenty of fluids. To help prevent GERD symptoms: Quit smoking. Reduce alcohol and foods that increase stomach acid. Don't use aspirin or qcke-bbu-igchzci pain and fever medicines, if possible. This includes nonsteroidal anti-inflammatory drugs (NSAIDs). Lose excess weight. Finish eating at least 2 hours before you go to bed or lie down. Raise the head of your bed. 9534-7020 [employer]. [address] [place] [address], [place] [address]. All rights reserved. This information is not intended as a substitute for professional medical care. Always follow yourhealthcare professional's instructions. Additional Information VACCINATE! IT SAVES LIVES! Members of the community who have not yet received the COVID-19 vaccine and would like to receive it can visit one of [facility] vaccine clinics. There are many vaccine clinic locations within the [facility]. For locations and available times, please visit [email or web address] It is important to note that some COVID mobile vaccine clinics are held outdoors and may be canceled in rainy or stormy conditions. To learn more about pediatric vaccinations (ages 5-11), we invite you to visit the [facility] webpage. https://www.[email or web address]/[email or web address]-[email or web address] [email or web address].htmlTo learn more about the COVID-19 vaccine, we invite you to visit the CDC website for a list of frequently asked questions. https://www.cdc.gov/coronavirus/2019-ncov/vaccines/faq.html [facility] Patient Portal Access Instructions: Stay connected with your healthcare team and access your personal medical information anytime with the [facility] Patient Portal. If you would like a full copy of your medical records please contact the [facility] Medical Records Department Sunday through Sunday between 8a.m. and 4:30p.m. Please follow the directions below to access the portal: 1.Access the email account you provided upon registration to the hospital.2.Look for an invitation email from [facility].3.Open the email and access the invitation link: Accept Invitation to [employer].Fill in the required denson to create your account. Sign into [email or web address] with your username and password that you created in the above steps to stay up to date. You can then view a summary of results, a summary of your visits, and the ability to download your summaries to your computer or send the information securely to a physician. Remember that your healthcare information is confidential, so carefully consider who you will allow to register on the [employer] Patient Portal for access to your information. You can also access the [employer] Patient Portal on the Boost[employer]. Simply click on Health Records under Chairish and then click on the [employer] logo. HOW TO SAFELY DISPOSE OF PRESCRIPTION MEDICATIONS Please use one of the following methods to safely dispose of your unused medications. 1.Use a drug disposal kit: the drug disposal pouch allows you to safely discard your old and unuseddrugs. Ask your nurse to give you one when you are discharged.2.Visit a local take-back location: Many local pharmacies and police departments have programs that collect old and unwanted prescriptiondrugs. Call your local pharmacy or go to http://Appstores.com.[employer]/2L7Df4c to find one close to you.3.Make use of household items: Use cat litter or old coffee grounds to dispose medications if other options arenot available. Mix your drugs with these household products, seal them in an airtight container andthrow it into the garbage. Call [facility]: [phone] to be sure your drugs can be disposed of in this way. Some medicines may require a different approach.4.Never flush your medications down the toilet. IF YOU HAVE BEEN PRESCRIBED AN OPIOIDS FOR PAIN If you have been prescribed an opioid (such as hydrocodone, oxycodone or morphine), it is critical to understand the possible side effects and risks of opioid pain medications. Even when taken as directed, opioids can have several side effects including: Tolerance, meaning you might need to take more of a medication for the same pain relief. Nausea, vomiting and/or constipation. Sleepiness, dizziness, dry mouth, confusion, depression or itching. Physical dependence, meaning you have withdrawal symptoms when a medication is stopped ? this can develop within a few days. KNOW YOUR RESPONSIBILITIES It is important to know exactly how much and how often to take the opioid pain medications you are prescribed. Never take opioids in higher amounts or more often than prescribed. Do not combine opioids with alcohol or other drugs that cause drowsiness, such as benzodiazepines, also known as benzos,including diazepam and alprazolam, muscle relaxants or sleep aids. Never sell or share prescriptionopioids. This is illegal. Store opioids in a secure place and out of reach of others (including children, family, friends and visitors). The last page(s) of this document has been signed and retained as a CHART COPY Signatures Patient Education Materials Abdominal Pain Medication Leaflets ondansetron (oral) My discharge plan and instructions have been reviewed and explained to me and I,JUANITA PAULINO understand my current condition and have read and understand these discharge instructions. I have received a written copy of the plan/instructions. If I have questions, I am aware that I should contact my doctor. 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 Multiplanar reformatted images are provided for review. Automated exposure control, iterative reconstruction, and/or weight based adjustment of the mA/kV was utilized to reduce the radiation dose to as low as reasonably achievable. COMPARISON: Ultrasound abdomen 04/03/2022 HISTORY: ORDERING SYSTEM PROVIDED HISTORY: Reason for Exam: Generalized abdominal pain for 3 days, right lower quadrant pain FINDINGS: Mild bilateral lower lobe atelectasis. Hepatomegaly. Otherwise, the liver is normal by CT. The gallbladder, spleen, adrenal glands, pancreas are within normal limits. Bilateral symmetric renal enhancement without evidence of hydronephrosis. Grossly unremarkable bladder. The uterus and adnexa appears physiologic. Bilateral ovarian follicles. No free fluid in the pelvis. Nondistended small and large bowel loops. No free air. Normal appendix. Nonaneurysmal aorta. No lymphadenopathy. Mild degenerative changes of the lower lumbar spine with a central disc protrusion causing indentation of the central canal. Incidentally noted osteitis condensans ilii. IMPRESSION: No acute process in the abdomen or pelvis. Normal appendix. I have personally reviewed the images of this examination and agree with the resident's findings and interpretation. Interpreted by: Reagan Rowe MD Preliminary Report By: Odin Kerns Electronically signed By Reagan Rowe MD Dictated Date: 04/03/2023 4:54:04 PM Prelim Date: 04/03/2023 5:00:21 PM Sign Date: 04/03/2023 5:42:34 PM Ordering Provider: [facility]02-13-2024 Note ORIGINAL EXAMINATION: LIMITED ABDOMINAL ULTRASOUND04/03/2023 4:24 pm ABDOMEN LIMITED ULTRASOUND ABDOMEN LIMITED COMPARISON: None HISTORY: ORDERING SYSTEM PROVIDED HISTORY: Reason for Exam: abdominal pain; suspect gallstones, gallbladder, or cholecystitis FINDINGS: The liver is diffusely increased in echogenicity with normal contours which is compatible with fatty change. The liver is enlarged measuring 23.1 cm no hepatic mass or biliary ductal dilatation is identified. The gallbladder is adequately distended and demonstrates no wall thickening or shadowing stones. The sonographic Taylor's sign was negative. The common duct measures 5.2 mm, which is normal. The visualized portions of the pancreas are normal. No abdominal ascites. Survey image of the right kidney is normal without pelvocaliectasis. IMPRESSION: Fatty enlarged liver. Interpreted by: Reagan Rowe MD Preliminary Report By: Reagan Rowe MD Electronically signed By Reagan Rowe MD Dictated Date: 04/03/2023 4:29:43 PM Prelim Date: 04/03/2023 4:32:24 PM Sign Date: 04/03/2023 4:32:24 PM Ordering Provider: [facility]01-06-2024 Note. MICRO - Microbiology PROCEDURE: Urine Culture [*1] SOURCE: Urine, Clean Catch BODY SITE: COLLECTED DATE/TIME: 02/22/2023 18:16 EST RECEIVED DATE/TIME: 02/23/2023 15:03 EST START DATE/TIME: 02/23/2023 15:03 EST FREE TEXT SOURCE: FINAL REPORTS Final Report [] Verified Date/Time/Personnel: 02/24/2023 14:44 EST 50,000 - 100,000 cfu/ml Mixed growth consistent with normal urogenital isaac. Performing Locations *1: This test was performed at: [facility], [address] [place] [address], [phone] , On license of [facility]02-22-2023 Note Discharge Instructions Thank you for allowing [facility] to assist you with your healthcare needs. The following is importantdischarge information regarding your hospital visit. Diagnosis from Today's Visit Abdominal pain Abdominal pain UTI - Urinary tract infection Vaginal bleeding What to Do Next Instructions from Your Care Team No qualifying data available. Post Acute Orders No qualifying data available. You Need to Schedule the Following Appointments Follow Up with Go to emergency room if symptoms worsen When Within 2-4 days Follow Up with PHYSICIAN, NONE When Within 2-4 days Allergies NKA Medications Please ask your primary doctor or pharmacist before taking any other medication not listed, including over the counter drugs, herbal medications, vitamins and or supplements as they may interact withyour home medications. What How Much When Instructions Last Dose New cephalexin (cephalexin 500 mg oral tablet) 1 tab(s) by mouth Three (3) times a day Duration: 7 Days Printed Prescription Please take this list to your next doctor s visit. Bring all medications you take, including over the counter medications, herbals and other supplements with you to your doctor s visit. Patients and families are reminded to discard old lists and to update any records with all medication providers or retail pharmacies. Medication Leaflets cephalexin (sef a ROSI in) What is the most important information I should know about cephalexin? You should not use this medicine if you are allergic to cephalexin or to similar antibiotics, such as Ceftin, Cefzil, Omnicef, and others. Tell your doctor if you are allergic to any drugs, especially penicillins or other antibiotics. What is cephalexin? Cephalexin is a cephalosporin (SEF a low spor in) antibiotic that is used to treat bacterial infections of the lungs, ear, skin, bones, bladder, and kidneys. Cephalexin is used to treat infections in adults and children who are at least 1 year old. Cephalexin may also be used for purposes not listed in this medication guide. What should I discuss with my healthcare provider before taking cephalexin? You should not use this medicine if you are allergic to cephalexin or any other cephalosporin antibiotic (cefdinir, cefadroxil, cefoxitin, cefprozil, ceftriaxone, cefuroxime, Omnicef, and others). Tell your doctor if you have ever had: an allergy to any drug (especially penicillin); liver or kidney disease; or intestinal problems, such as colitis. The liquid form of cephalexin may contain sugar. This may affect you if you have diabetes. Tell your doctor if you are or breast-feeding. How should I take cephalexin? Follow all directions on your prescription label and read all medication guides or instruction sheets. Use the medicine exactly as directed. Do not use cephalexin to treat any condition that has not been checked by your doctor. Measure liquid medicine carefully. Use the dosing syringe provided, or use a medicine dose-measuring device (not a kitchen spoon). Use this medicine for the full prescribed length of time, even if your symptoms quickly improve. Skipping doses can increase your risk of infection that is resistant to medication. Cephalexin will not treat a viral infection such as the flu or a common cold. Do not share cephalexin with another person, even if they have the same symptoms you have. This medicine can affect the results of certain medical tests. Tell any doctor who treats you that you are using cephalexin. Store the tablets and capsules at room temperature away from moisture, heat, and light. Store the liquid medicine in the refrigerator. Throw away any unused liquid after 14 days. What happens if I miss a dose? Take the medicine as soon as you can, but skip the missed dose if it is almost time for your next dose. Do not take two doses at one time. What happens if I overdose? Seek emergency medical attention or call the Poison Help line at . Overdose symptoms may include nausea, vomiting, stomach pain, diarrhea, and blood in your urine. What should I avoid while taking cephalexin? Antibiotic medicines can cause diarrhea, which may be a sign of a new infection. If you have diarrhea that is watery or bloody, call your doctor before using anti-diarrhea medicine. What are the possible side effects of cephalexin? Get emergency medical help if you have signs of an allergic reaction (hives, difficult breathing, swelling in your face or throat) or a severe skin reaction (fever, sore throat, burning eyes, skin pain, red or purple skin rash with blistering and peeling). Call your doctor at once if you have: severe stomach pain, diarrhea that is watery or bloody (even if it occurs months after your last dose); unusual tiredness, feeling light-headed or short of breath; easy bruising, unusual bleeding, purple or red spots under your skin; a seizure; pale skin, cold hands and feet; yellowed skin, dark colored urine; fever, weakness; or pain in your side or lower back, painful urination. Common side effects may include: diarrhea; nausea, vomiting; indigestion, stomach pain; or vaginal itching or discharge. This is not a complete list of side effects and others may occur. Call your doctor for medical advice about side effects. You may report side effects to FDA at 8-346-WUB-7432. What other drugs will affect cephalexin? Tell your doctor about all your other medicines, especially: metformin; or probenecid. This list is not complete. Other drugs may affect cephalexin, including prescription and fgjv-ron-qilpxaq medicines, vitamins, and herbal products. Not all possible drug interactions are listed here. Where can I get more information? Your pharmacist can provide more information about cephalexin. Remember, keep this and all other medicines out of the reach of children, never share your medicines with others, and use this medication only for the indication prescribed. Every effort has been made to ensure that the information provided by [employer]. ('[employer]') is accurate, up-to-date, and complete, but no guarantee is made to that effect. Drug information contained herein may be time sensitive. [employer] information has been compiled for use by healthcare practitioners and consumers in the [place] and therefore [employer] does not warrant that uses outside of the [place] are appropriate, unless specifically indicated otherwise. [employer]s drug information does not endorse drugs, diagnose patients or recommend therapy. [employer]s drug information isan informational resource designed to assist licensed healthcare practitioners in caring for their p atients and/or to serve consumers viewing this service as a supplement to, and not a substitute for, the expertise, skill, knowledge and judgment of healthcare practitioners. The absence of a warningfor a given drug or drug combination in no way should be construed to indicate that the drug or drug combination is safe, effective or appropriate for any given patient. [facility] does not assume any responsibility for any aspect of healthcare administered with the aid of information [facility] provides. The information contained herein is not intended to cover all possible uses, directions, precautions, warnings, drug interactions, allergic reactions, or adverse effects. If you have questions about the drugs you are taking, check with your doctor, nurse or pharmacist. Copyright 5144-2648 [facility] [employer]. Version: .. Revision Date: 09/20/2022. Education Materials Understanding Uterine Bleeding Your uterine bleeding may be heavy. Or you may have bleeding between periods. These problems may becaused by hormonal imbalance. Or they can be caused by uterine growths, an intrauterine device (IUD), bleeding disorder, or . Hormonal imbalance Your menstrual cycle is controlled by hormones. The hormones include estrogen and progesterone. Sometimes there is too much or too little of one or both of these hormones, causing an imbalance. This can cause heavy periods. Or it can cause bleeding between periods. Causes of hormonal imbalance can include: Hormonal changes in teens and in women nearing menopause Diabetes, thyroid disease, or other medical problems Obesity Stress Strenuous exercise Anorexia, an eating disorder Uterine growths There are different kinds of uterine growths. These include: Fibroids. These are round knots of noncancer (benign) muscle tissue in the uterus. Polyps. These are soft tissue growths in the uterine lining. They often extend into the uterus. Adenomyosis. This is when the uterine lining grows into the muscle wall. Hyperplasia. This is when the uterine lining gets too thick or grows too much. Endometrial cancer. This is uncontrolled growth of part of the uterine lining. Other causes of uterine bleeding There are other causes of uterine bleeding. These include: IUD (intrauterine device). This is a method of control. Some IUDs contain hormones. Bleeding disorders. This is when the blood can't clot properly. Treatment Your healthcare provider can help diagnose the cause of your bleeding problem. He or she will work with you to plan treatment as needed. [phone] [employer]. [address] [place] [address]. All rights reserved. This information is not intended as a substitute for professional medical care. Always follow yourhealthcare professional's instructions. Abdominal Pain Abdominal pain is pain in the stomach or belly area. Everyone has this pain from time to time. In many cases it goes away on its own. But abdominal pain can sometimes be due to a serious problem, such as appendicitis. So it s important to know when to get help. Causes of abdominal pain There are many possible causes of abdominal pain. Common causes in adults include: Constipation, diarrhea, or gas Stomach acid flowing back up into the esophagus (acid reflux or heartburn) Severe acid reflux, called GERD (gastroesophageal reflux disease) A sore in the lining of the stomach or small intestine (peptic ulcer) Inflammation of the gallbladder, liver, or pancreas Gallstones or kidney stones Appendicitis Intestinal blockage An internal organ pushing through a muscle or other tissue (hernia) Urinary tract infections In women, menstrual cramps, fibroids, ovarian cysts, pelvic inflammatory disease, or endometriosis Inflammation or infection of the intestines, including Crohn's disease and ulcerative colitis Irritable bowel syndrome Diagnosing the cause of abdominal pain Your healthcare provider will give you a physical exam help find the cause of your pain. If needed,you will have tests. Belly pain has many possible causes. So it can be hard to find the reason for your pain. Giving details about your pain can help. Tell your provider where and when you feel the pain, and what makes it better or worse. Also let your provider know if you have other symptoms such as: Fever Tiredness Upset stomach (nausea) Vomiting Changes in bathroom habits Blood in the stool or black, tarry stool Weight loss that you can't explain (involuntary weight loss?) Also report any family history of stomach or intestinal problems, or cancers. Tell your provider about all your alcohol use and drug use. Tell your provider about all medicines you use, including herbs, vitamins, and supplements. Treating abdominal pain Some causes of pain need emergency medical treatment right away. These include appendicitis or a bowel blockage. Other problems can be treated with rest, fluids, or medicines. Your healthcare provider can give you specific instructions for treatment or self-care based on what is causing your pain. If you have vomiting or diarrhea, sip water or other clear fluids. When you are ready to eat solid foods again, start with small amounts of geva-rl-eodzjv, low- fat foods. These include apple sauce, toast, or crackers. When to get medical care Call 911 or go to the hospital right away if you: Can t pass stool and are vomiting Are vomiting blood or have bloody diarrhea or black, tarry diarrhea Have chest, neck, or shoulder pain Feel like you might pass out Have pain in your shoulder blades with nausea Have sudden, severe belly pain Have new, severe pain unlike any you have felt before Have a belly that is rigid, hard, and hurts to touch Call your healthcare provider if you have: Pain for more than 5 days Bloating for more than 2 days Diarrhea for more than 5 days A fever of 100.4 F (38 C) or higher, or as directed by your healthcare provider Pain that gets worse Weight loss for no reason Continued lack of appetite Blood in your stool How to prevent abdominal pain Here are some tips to help prevent abdominal pain: Eat smaller amounts of food at each meal. Don't eat greasy, fried, or other high-fat foods. Don't eat foods that give you gas. Exercise regularly. Drink plenty of fluids. To help prevent GERD symptoms: Quit smoking. Reduce alcohol and foods that increase stomach acid. Don't use aspirin or qgti-nnh-ioprzwg pain and fever medicines, if possible. This includes nonsteroidal anti-inflammatory drugs (NSAIDs). Lose excess weight. Finish eating at least 2 hours before you go to bed or lie down. Raise the head of your bed. 6303-2241 [employer]. [address] [place] [address], [place] [address]. All rights reserved. This information is not intended as a substitute for professional medical care. Always follow yourhealthcare professional's instructions. Additional Information VACCINATE! IT SAVES LIVES! Members of the community who have not yet received the COVID-19 vaccine and would like to receive it can visit one of [facility] vaccine clinics. There are many vaccine clinic locations within the [facility]. For locations and available times, please visit www.[email or web address].[place].gov/. It is important to note that some COVID mobile vaccine clinics are held outdoors and may be canceled in rainy or stormy conditions. To learn more about pediatric vaccinations (ages 5-11), we invite you to visit the [facility] webpage. [email or web address]/[email or web address] [email or web address] learn more about the COVID-19 vaccine, we invite you to visit the CDC website for a list of frequently asked questions. https://www.cdc.gov/coronavirus/2019-ncov/vaccines/faq.html [facility] Patient Portal Access Instructions: Stay connected with your healthcare team and access your personal medical information anytime with the [employer] Patient Portal. If you would like a full copy of your medical records please contact the [facility] Medical Records Department Sunday through Sunday between 8a.m. and 4:30p.m. Please follow the directions below to access the portal: 1.Access the email account you provided upon registration to the [facility].2.Look for an invitation email from [facility].3.Open the email and access the invitation link: Accept Invitation to [facility].Fill in the required denson to create your account. Sign into [email or web address] with your username and password that you created in the above steps to stay up to date. You can then view a summary of results, a summary of your visits, and the ability to download your summaries to your computer or send the information securely to a physician. Remember that your healthcare information is confidential, so carefully consider who you will allow to register on the [employer] Patient Portal for access to your information. You can also access the [employer] Patient Portal on the [employer]. Simply click on Health Records under [employer]GrinderData and then click on the [employer] logo. HOW TO SAFELY DISPOSE OF PRESCRIPTION MEDICATIONS Please use one of the following methods to safely dispose of your unused medications. 1.Use a drug disposal kit: the drug disposal pouch allows you to safely discard your old and unuseddrugs. Ask your nurse to give you one when you are discharged.2.Visit a local take-back location: Many local pharmacies and police departments have programs that collect old and unwanted prescriptiondrugs. Call your local pharmacy or go to http://bit.[employer]/7L7Lg5n to find one close to you.3.Make use of household items: Use cat litter or old coffee grounds to dispose medications if other options arenot available. Mix your drugs with these household products, seal them in an airtight container andthrow it into the garbage. Call [facility]: [phone] to be sure your drugs can be disposed of in this way. Some medicines may require a different approach.4.Never flush your medications down the toilet. IF YOU HAVE BEEN PRESCRIBED AN OPIOIDS FOR PAIN If you have been prescribed an opioid (such as hydrocodone, oxycodone or morphine), it is critical to understand the possible side effects and risks of opioid pain medications. Even when taken as directed, opioids can have several side effects including: Tolerance, meaning you might need to take more of a medication for the same pain relief. Nausea, vomiting and/or constipation. Sleepiness, dizziness, dry mouth, confusion, depression or itching. Physical dependence, meaning you have withdrawal symptoms when a medication is stopped ? this can develop within a few days. KNOW YOUR RESPONSIBILITIES It is important to know exactly how much and how often to take the opioid pain medications you are prescribed. Never take opioids in higher amounts or more often than prescribed. Do not combine opioids with alcohol or other drugs that cause drowsiness, such as benzodiazepines, also known as benzos,including diazepam and alprazolam, muscle relaxants or sleep aids. Never sell or share prescriptionopioids. This is illegal. Store opioids in a secure place and out of reach of others (including children, family, friends and visitors). The last page(s) of this document has been signed and retained as a CHART COPY Signatures Patient Education Materials Understanding Uterine Bleeding Abdominal Pain Medication Leaflets cephalexin My discharge plan and instructions have been reviewed and explained to me and IRIAN KIRSTEN understand my current condition and have read and understand these discharge instructions. I have received a written copy of the plan/instructions. If I have questions, I am aware that I should contact my doctor. 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 Or you may have bleeding between periods. These problems may becaused by hormonal imbalance. Or they can be caused by uterine growths, an intrauterine device (IUD), bleeding disorder, or . Hormonal imbalance Your menstrual cycle is controlled by hormones. The hormones include estrogen and progesterone. Sometimes there is too much or too little of one or both of these hormones, causing an imbalance. This can cause heavy periods. Or it can cause bleeding between periods. Causes of hormonal imbalance can include: Hormonal changes in teens and in women nearing menopause Diabetes, thyroid disease, or other medical problems Obesity Stress Strenuous exercise Anorexia, an eating disorder Uterine growths There are different kinds of uterine growths. These include: Fibroids. These are round knots of noncancer (benign) muscle tissue in the uterus. Polyps. These are soft tissue growths in the uterine lining. They often extend into the uterus. Adenomyosis. This is when the uterine lining grows into the muscle wall. Hyperplasia. This is when the uterine lining gets too thick or grows too much. Endometrial cancer. This is uncontrolled growth of part of the uterine lining. Other causes of uterine bleeding There are other causes of uterine bleeding. These include: IUD (intrauterine device). This is a method of control. Some IUDs contain hormones. Bleeding disorders. This is when the blood can't clot properly. Treatment Your healthcare provider can help diagnose the cause of your bleeding problem. He or she will work with you to plan treatment as needed. [id number] [employer]. [address] [place] [address]. All rights reserved. This information is not intended as a substitute for professional medical care. Always follow yourhealthcare professional's instructions. 02/22/2023 18:12:45 Abdominal Pain Abdominal Pain Abdominal pain is pain in the stomach or belly area. Everyone has this pain from time to time. In many cases it goes away on its own. But abdominal pain can sometimes be due to a serious problem, such as appendicitis. So it s important to know when to get help. Causes of abdominal pain There are many possible causes of abdominal pain. Common causes in adults include: Constipation, diarrhea, or gas Stomach acid flowing back up into the esophagus (acid reflux or heartburn) Severe acid reflux, called GERD (gastroesophageal reflux disease) A sore in the lining of the stomach or small intestine (peptic ulcer) Inflammation of the gallbladder, liver, or pancreas Gallstones or kidney stones Appendicitis Intestinal blockage An internal organ pushing through a muscle or other tissue (hernia) Urinary tract infections In women, menstrual cramps, fibroids, ovarian cysts, pelvic inflammatory disease, or endometriosis Inflammation or infection of the intestines, including Crohn's disease and ulcerative colitis Irritable bowel syndrome Diagnosing the cause of abdominal pain Your healthcare provider will give you a physical exam help find the cause of your pain. If needed,you will have tests. Belly pain has many possible causes. So it can be hard to find the reason for your pain. Giving details about your pain can help. Tell your provider where and when you feel the pain, and what makes it better or worse. Also let your provider know if you have other symptoms such as: Fever Tiredness Upset stomach (nausea) Vomiting Changes in bathroom habits Blood in the stool or black, tarry stool Weight loss that you can't explain (involuntary weight loss?) Also report any family history of stomach or intestinal problems, or cancers. Tell your provider about all your alcohol use and drug use. Tell your provider about all medicines you use, including herbs, vitamins, and supplements. Treating abdominal pain Some causes of pain need emergency medical treatment right away. These include appendicitis or a bowel blockage. Other problems can be treated with rest, fluids, or medicines. Your healthcare provider can give you specific instructions for treatment or self-care based on what is causing your pain. If you have vomiting or diarrhea, sip water or other clear fluids. When you are ready to eat solid foods again, start with small amounts of jpbx-py-xnssul, low- fat foods. These include apple sauce, toast, or crackers. When to get medical care Call 911 or go to the hospital right away if you: Can t pass stool and are vomiting Are vomiting blood or have bloody diarrhea or black, tarry diarrhea Have chest, neck, or shoulder pain Feel like you might pass out Have pain in your shoulder blades with nausea Have sudden, severe belly pain Have new, severe pain unlike any you have felt before Have a belly that is rigid, hard, and hurts to touch Call your healthcare provider if you have: Pain for more than 5 days Bloating for more than 2 days Diarrhea for more than 5 days A fever of 100.4 F (38 C) or higher, or as directed by your healthcare provider Pain that gets worse Weight loss for no reason Continued lack of appetite Blood in your stool How to prevent abdominal pain Here are some tips to help prevent abdominal pain: Eat smaller amounts of food at each meal. Don't eat greasy, fried, or other high-fat foods. Don't eat foods that give you gas. Exercise regularly. Drink plenty of fluids. To help prevent GERD symptoms: Quit smoking. Reduce alcohol and foods that increase stomach acid. Don't use aspirin or kmgk-vqe-fjfndva pain and fever medicines, if possible. This includes nonsteroidal anti-inflammatory drugs (NSAIDs). Lose excess weight. Finish eating at least 2 hours before you go to bed or lie down. Raise the head of your bed. [id number] [employer]. [address] [place] [address]. All rights reserved. This information is not intended as a substitute for professional medical care. Always follow yourhealthcare professional's instructions. Follow Up Care 02/22/2023 14:39:32 With:Go to emergency room if symptoms worsen Address:Unknown When:2-4 days With:PHYSICIAN, NONE Address:Unknown When:2-4 days [facility] 01-01-2023 Hospital Discharge instructions Additional Instructions Regular diet. Okay to shower. No lifting over 25 pounds for 2 to 3 weeks. No tub baths for 2 weeks. No intercourse for 4 to 6 weeks. Call if fevers, chills, chest pain, shortness of breath. Follow-up 1 week blood pressure check, [facility] Work Phone: [phone]) [phone] Note Attestation signed by Sarina Carey MD at 01/31/2022 2:50 PM MFM See note from today no changes in cervix precautions discussed and recommend follow up with Dr. Negrita Anglin tomorrow as scheduled. The patient was told if any concerns we are happy to see her back here at [facility] Follow up with OB as instructed Precautions addressed Stable on discharge without change in cervix Questions answered Recommend twice weekly testing with weekly labs given her pre-eclampsia diagnosis and delivery is recommended at 37 weeks unless indicated sooner. Department of Obstetrics and Gynecology [facility] Discharge Summary Admission on 01/28/2022 10:17 AM Juanita Paulino is a 21 y.o. at 33w6d with Di/Di twins who was transferred to [facility] from [place] for PTL. Patient initially presented c/o CTX 01/27 and was closed, overnight at [facility] made change from 2 --> 3cm. She was given BMZx1 and procardia prior to transport. Upon arrival to [facility] patient was found to be 4/70/-3 but comfortable. She was admitted for further observation and continued tocolysis. Patient received a second dose of BMZ in addition to 36 hours of tocolysis. Zhanna met criteria for gHTN v PreEwoSF based on mild range blood pressures >4 hours apart. Initally UPC at [facility] was elevated to 0.4 but on repeat at [facility], UPC was 0.25. No anti-hypertensive medications were started. Growth US on 01/30 noted Baby A: 2557g, 59%, DVP 4.5, BPP 8/8. Baby B: 2557g, 59%, DVP 7.1, BPP 8/8. 0% discordance. Patient reported vaginal spotting and mucus like discharge while admitted but did not make further change. Prior to discharge, patient's cervix remained 4cm. Patient was comfortable, no further contractions noted and Cat I FHT of both babies. Patient was discharged home with strict return precautions. Next appointment on 02/01/[address] Anglin. 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; history of delivery Follow up appointment with your doctor/frankfurter inspector - Keep next scheduled appointment on 02/01/2022 Activity - Normal Activity Call your doctor/frankfurter inspector if you have: - leaking fluid - vaginal bleeding - regular contractions: More than 6 contractions in one hour - decreased movement - worsening abdominal (belly) pain - headache, blurry vision, increased swelling, upper abdominal pain Kyaw Andrews MD on 01/31/2022 at 2:25 [facility] 01-28-2022 NotePatient: Juanita Paulino Procedure Information Date: 01/28/22 Procedure: Labor Analgesia Relevant Problems Anesthesia (+) Delayed emergence from anesthesia (+) Family history of pseudocholinesterase deficiency (+) Pseudocholinesterase deficiency Clinical information reviewed: Tobacco Allergies Meds Med Hx Surg Hx Fam Hx Soc Hx Physical Exam Airway Mallampati: III TM distance: >3 FB Neck ROM: full Mouth Open: normal Cardiovascular - normal exam Dental Pulmonary - normal exam Abdominal Anesthesia Plan ASA 3 spinal and regional (TAP) The patient is not a current smoker. Anesthetic plan and risks discussed with patient. patient is NPO h/o pseudocholiesterase deficiency Additional Equipment Requests Regional/Neuraxial Equipment: spinal anesthetic [facility] 01-28-2022 Note Attestation signed by Willow Moscoso DO at 01/29/2022 3:21 PM Hospital Care (Independent): I independently saw and evaluated the patient. I agree with the findings and plan of care as documented in the resident's note. Pt and partner seen 01/28/22. Pt is a 21 y.o. yo at 33w5d transported from [facility] by Dr. Negrita Anglin due to labor, nicolasa twins. Made change from closed to 2 cm dilation at [place]. Given BMZ. Started on Procardia after cervical change and transported due to risk of . Hx of PTD with G1 at 36 weeks due to PPROM. Continue Procardia through the 48 hour course of BMZ, discontinue after that time. Discussed r/b/a to planned CD versus vaginal delivery. Juanita would like planned CD if she returns to active labor. We discussed the chance if she labors, that she may have a precipitous vaginal delivery. She will notify the OB team if she has an increase in CTXs, pelvic pain, VB, LOF. At this time she is stable and can have a regular diet. Department of Maternal Medicine History and Physical CHIEF COMPLAINT: contractions HISTORY OF PRESENT ILLNESS: The patient is a 21 y.o. female at 33w5d. OB History 2 Para 1 Term 1 AB Living 1 SAB IAB Ectopic Multiple Live Births 1 Patient presents with a chief complaint as above and is being admitted for labor. with hx of PPROM @36w with G1, . Currently with di/di twins and presented to [facility] last night c/o CTX. Made cervical change from closed to 2cm before transport to [facility]. Was given BMZx1 01/28 0000 and Procardia prior to discharge. Admitted to [facility] for higher level of care. Transport: Yes Prior Hospitalizations: No Estimated Due Date: Estimated Date of Delivery: 03/13/22 CARE: Complications: See below PAST OB HISTORY: OB History 2 Para 1 Term 1 AB Living 1 SAB IAB Ectopic Multiple Live Births 1 Detailed OB History 36 PPROM Current Past Medical History: Past Medical History: Diagnosis Date Herpes Past Surgical History: Past Surgical History: Procedure Laterality Date EYE SURGERY pt states she had lazy left eye corrected RHINOPHYMA RESECTION pt states done around 2016 TONSILECTOMY, ADENOIDECTOMY, BILATERAL MYRINGOTOMY AND TUBES Bilateral pt states removed when she was a kid on ly tonsils removed Allergies: Patient has no known allergies. Social History: Social History Socioeconomic History Marital status: Spouse name: Kyaw Number of children: 1 Years of education: Not on file Highest education level: Not on file Occupational History Not on file Tobacco Use Smoking status: Never Smokeless tobacco: Never Vaping Use Vaping Use: Never used Substance and Sexual Activity Alcohol use: Not Currently Drug use: Never Sexual activity: Not on file Other Topics Concern Not on file Social History Narrative Not on file Social Determinants of Health Financial Resource Strain: Not on file Food Insecurity: Not on file Transportation Needs: Not on file Physical Activity: Not on file Stress: Not on file Social Connections: Not on file Intimate Partner Violence: Not on file Housing Stability: Not on file Family History: No family history on file. Medications Prior to Admission: Medications Prior to Admission Medication Sig Dispense Refill Last Dose Vit-Fe Fumarate-FA ( 1+1 PO) Take 1 tablet by mouth daily. gummies 01/27/2022 sertraline (Zoloft) 50 MG tablet Take 50 mg by mouth daily. To help sleep per pt 01/27/2022 valACYclovir (Valtrex) 500 MG tablet Take 500 mg by mouth daily. 01/27/2022 REVIEW OF SYSTEMS: Review of Systems Constitutional: Negative for activity change, chills and fever. Respiratory: Negative for chest tightness and shortness of breath. Cardiovascular: Negative for chest pain. Gastrointestinal: Negative for abdominal distention, abdominal pain, nausea and vomiting. Genitourinary: Positive for pelvic pain. Negative for flank pain, frequency, vaginal bleeding and vaginal pain. Neurological: Negative for dizziness, facial asymmetry, light-headedness and headaches. Hematological: Negative for adenopathy. Psychiatric/Behavioral: Negative for agitation, behavioral problems and confusion. Labs: CBC: No results found for: WBC, RBC, HGB, HCT, MCV, MCH, MCHC, RDW, PLT, MPV and CMP: No results found for: NA, K, CL, CO2, BUN, CREATININE, AGRATIO, LABGLOM, GLUCOSE, GLU, PROT, CALCIUM, BILITOT, ALKPHOS, AST, ALT PHYSICAL EXAM: Vitals: 01/28/22 1044 Pulse: 65 Resp: 18 Temp: 36.6 ?C (97.9 ?F) (more content not included)...[facility] Evaluation + Plan note Future Appointments Appointment Date:02/23/2023 04:00:00 PM Scheduled Provider:MICHELLE MELLO MOTOR POOL DRIVER-TRIAGE LICENSED PRACTICAL NURSE Location:[facility] Appointment Type:PC GEEK SQUAD AGENT SS Diagnostic Tests Pending * Urine Culture 02/22/23 [facility] Evaluation + Plan note Future Appointments Appointment Date:04/20/2023 04:00:00 PM Scheduled Provider:MICHELLE MELLO APRN-TRIAGE LICENSED PRACTICAL NURSE Location:[facility] Plan note Future Appointments Appointment Date:04/17/2023 02:00:00 PM Scheduled Provider:MEAGHAN YOUNGER Location: [facility] Appointment Type: GEEK SQUAD AGENT Appointment Date:04/20/2023 04:00:00 PM Scheduled Provider:MICHELLE MELLO APRN-KENZIE Location:[facility] Plan note Future Appointments Appointment Date:05/23/2023 09:00:00 AM Scheduled Provider:MICHELLE MELLO MOTOR POOL DRIVER-TRIAGE LICENSED PRACTICAL NURSE Location:[facility] Appointment Type:PC OV Appointment Date:08/06/2023 04:00:00 PM Scheduled Provider:MICHELLE MELLO MOTOR POOL DRIVER-TRIAGE LICENSED PRACTICAL NURSE Location:[facility] Appointment Type:[facility] + Plan note Future Appointments Appointment Date:05/23/2023 09:00:00 AM Scheduled Provider:MICHELLE MELLO MOTOR POOL DRIVER-TRIAGE LICENSED PRACTICAL NURSE Location:[facility] Appointment Type:PC OV Appointment Date:08/06/2023 04:00:00 PM Scheduled Provider:MICHELLE MELLO Location:[facility] Appointment Type:PC OV Diagnostic Tests Pending * Food Allergy Profile 05/15/23 [facility] Evaluation + Plan note Future Appointments Appointment Date:08/06/2023 04:00:00 PM Scheduled Provider:MICHELLE MELLO Location:[facility] Appointment Type:PC OV Future Scheduled Tests Laboratory* Stool Gastrointestinal Panel 06/25/23 Radiology* US Abdomen Complete 06/25/23 * US Transvaginal Non OB 06/25/23 [facility] Evaluation + Plan note Future Appointments Appointment Date:07/09/2023 01:00:00 PM Scheduled Provider:MICHELLE MELLO Location:[facility] Appointment Type:PC OV ED Follow Up Appointment Date:08/06/2023 04:00:00 PM Scheduled Provider:MICHELLE MELLO Location:[facility] Appointment Type:PC OV Future Scheduled Tests Laboratory* Stool Gastrointestinal Panel 06/25/23 [facility] Evaluation noteNo assessment information available [facility] Work Phone: evaluation note* Diagnosis Onset Date Resolution Status Vaginal bleeding acute [facility] Work Phone: [phone] note* Diagnosis Onset Date Resolution Status Vaginal bleeding acute Acute postoperative pain acu te delivery delivered resolved Severe pre-eclampsia resolve d [facility] Work Phone: evaluation note* Diagnosis Onset Date Resolution Status Admit Date Belching acute July 30 8:17am Diarrhea acute July 30 8:17am Fecal incontinence acute July 202024 8:17am Fecal urgency acute July 30, 2024 8:17am Heartburn acute July 30 8:17am Lower abdominal pain acute July 30, 2024 8:17am Nausea & vomiting acute July 302024 8:17am Steatosis, 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 [facility] Work Phone: Hospital course Narrative No data available for this section [facility] Hospital Discharge instructions Additional Instructions Chuck Anglin's office will call patient tomorrow to set up an appointment for next week.[facility] Work Phone: Hospital Discharge instructions No data available for this section [facility] Progress note No data available for this section [facility] Reason for referral (narrative)No reason for referral information availableWLuther[facility] Work Phone: Summary Purpose Family History No Family History Records Found Relationship Condition Age at Onset Recorded Date/T layla mother Malignant neoplasm of colon Unknown Disorder of thyroid Unknown Relationship Condition Age at Onset Recorded Date/T layla mother Malignant neoplasm of colon Unknown Disorder of thyroid Unknown Arthritis Unknown Depression Unknown Diabetes mellitus Unknown grandmother Arthritis Unknown sister Disorder of endocrine system Unknown Relationship Condition Age at Onset Recorded Date/T layla mother Malignant neoplasm of colon Unknown Disorder of thyroid Unknown Arthritis Unknown Depression Unknown Type 2 diabetes mellitus Unknown grandmother Arthritis Unknown sister Disorder of endocrine system Unknown Endometriosis Unknown grandmother Malignant neoplasm of colon Unknown sister Endometriosis Unknown grandfather Malignant neoplasm of colon Unknown Malignant neoplasm of lung Unknown Advance Directives No Advanced Directives Records Found Advance Directive Response Recorded Date/ Time Living Will No February 22 10:57am Power of Field Sales Engineer No February 22 10:57am Advance Directive Response Recorded Date/ Time Living Will No February 22 9:57am Power of Field Sales Engineer No February 22 9:57am Advance Directive Response Recorded Date/ Time Living Will No January 28 12:36am Power of Field Sales Engineer No January 28, 2022 12:36am Advance Directive Response Recorded Date/ Time Living Will No February 04 6:42pm Power of Field Sales Engineer No February 04, 2022 6:42pm Advance Directive Response Recorded Date/ Time Living Will No February 04 7:42pm Power of Field Sales Engineer No February 04, 2022 7:42pm Advance Directive Response Recorded Date/ Time Do you have a Healthcare Power of Field Sales Engineer? No July 24, 2024 8:45am Instructions * Patient Instructions - Lydia Flynn, - 10/24/2017 2:52 PM EDT Formatting of this note may be different from the original. Diarrhea: Diarrhea is loose, watery stools (bowel movements). The exact cause is often hard to find. Sometimes diarrhea is your body's way of getting rid of what caused an upset stomach. Viruses, food poisoning, and many medicines can cause diarrhea. Some people get diarrhea in response to emotional stress, anxiety, or certain foods. Almost everyone has diarrhea now and then. It usually isn't serious, and your stools will return tonormal soon. The important thing to do is replace the fluids you have lost, so you can prevent dehydration. The doctor has checked you carefully, but problems can develop later. If you notice any problems ornew symptoms, get medical treatment right away. Follow-up care is a alex part of your treatment and safety. Be sure to make and go to all appointments, and call your doctor if you are having problems. It's also a good idea to know your test resultsand keep a list of the medicines you take. How can you care for yourself at home? Watch for signs of dehydration, which means your body has lost too much water. Dehydration is a serious condition and should be treated right away. Signs of dehydration are: Increasing thirst and dry eyes and mouth. Feeling faint or lightheaded. Darker urine, and a smaller amount of urine than normal. To prevent dehydration, drink plenty of fluids, enough so that your urine is light yellow or clear like water. Choose water and other caffeine-free clear liquids until you feel better. If you have kidney, heart, or liver disease and have to limit fluids, talk with your doctor before you increase the amount of fluids you drink. Begin eating small amounts of mild foods the next day, if you feel like it. Try yogurt that has live cultures of Lactobacillus. (Check the label.) Avoid spicy foods, fruits, alcohol, and caffeine until 48 hours after all symptoms are gone. Avoid chewing gum that contains sorbitol. Avoid dairy products (except for yogurt with Lactobacillus) while you have diarrhea and for 3 days after symptoms are gone. The doctor may recommend that you take aqfi-jox-fuzfnzb medicine, such as loperamide (Imodium), if you still have diarrhea after 6 hours. Read and follow all instructions on the label. Do not use this medicine if you have bloody diarrhea, a high fever, or other signs of serious illness. Call your doctor if you think you are having a problem with your medicine. When should you call for help? Call 911 anytime you think you may need emergency care. For example, call if: ? You passed out (lost consciousness). ? Your stools are maroon or very bloody. ?Call your doctor now or seek immediate medical care if: ? You are dizzy or lightheaded, or you feel like you may faint. ? Your stools are black and look like tar, or they have streaks of blood. ? You have new or worse belly pain. ? You have symptoms of dehydration, such as: Dry eyes and a dry mouth. Passing only a little dark urine. Feeling thirstier than usual. ? You have a new or higher fever. ?Watch closely for changes in your health, and be sure to contact your doctor if: ? Your diarrhea is getting worse. ? You see pus in the diarrhea. ? You are not getting better after 2 days (48 hours). in this encounter Assessments Diagnosis Diarrhea, unspecified type - Primary Diagnosis Abdominal pain during in first trimester- Primary Hospital Course Note Patient: Juanita Murillo Age: 18 years Sex: Female : 2000 Associated Diagnoses: ; Premature rupture of membranes Author: Melisa Vega DO Results Review Labor/ Delivery Summary Results Review Problems (Active Problems Only) (SNOMED CT: 814575751, Onset: 04/12/18) Allergic rhinitis caused by pollens (SNOMED CT: 9457060985, Onset: --) ADHD (SNOMED CT: AZEGxwEmLzUcjdGfwKgAAg, Onset: --) Polycystic ovary syndrome (SNOMED CT: [id number], Onset: --) Depression (SNOMED CT: 708253672, Onset: --) Excessive growth of facial hair (SNOMED CT: 709739867, Onset: --) Premature rupture of membranes (SNOMED CT: AZEGxwEmLzUcjSUGwKgAAg, Onset: --) Delivery Summary A Membrane Status Information ROM Type: Spontaneous rupture of membranes Amniotic Fluid Color/Description: Thin meconium Labor Information 2nd Stage Onset Date/Time: 12/23/18 16:34:00 Labor Onset Methods: Spontaneous Precipitous Labor: No Prolonge (more content not included)... Discharge Instructions * Instructions* PrinceMyron Suhas, DO - 07/12/2018 Thank you for allowing us to be involved in your care today. Please follow up as discussed during your stay. This information is included in your discharge paperwork. Appropriate follow up is essential in your continued care after today's visit. If you had any diagnostic studies (Labs, X-rays, CT-scan , Ultrasound or Cultures) have your Primary Care Physician (PCP) review them with you since there may be results that require further follow up or investigation. Return to the Emergency Department at any point with worsening conditions or concerns. The physician and staff of the Emergency Department would like to thank you for choosing our facility for your health care needs. Our goal is to provide exceptional service. You may be receiving a survey in the mail following your visit. Because your feedback is very important to us, we hope you will take the time to complete and return the survey. If for any reason, you feel that you cannot rateus Very Good or 5 for the service you received today, please let us know prior to your discharge. Please follow up with your family doctor or one of your choosing. You may find a provider through the [facility]erral Service by calling [phone] or by visiting [email or web address] Thank You for choosing the [facility] Emergency Department! * Attachments The following attachments cannot be sent through Care Everywhere. * Abdominal Pain, Early ([place]) documented in this encounter Chief Complaint and Reason for Visit Chief Complaint CHEST PAIN Chief Complaint RULE OUT PRE TERM LA BOR Reason for Visit Vaginal bleeding Chief Complaint RULE OUT PRE TERM LA BOR NST Reason for Visit Vaginal bleeding Chief Complaint RULE OUT PRE TERM LA BOR NST BLEEDING Reason for Visit Vaginal bleeding Chief Complaint RULE OUT PRE TERM LA BOR NST BLEEDING C SECTION DELIVERY Reason for Visit Vaginal bleeding Acute postoperative pain delivery delivered Severe pre-eclampsia Chief Complaint Admit Date XATA NEW EMPLOYEE PHYSICAL June 05 2:09pm EORDERS July 16, 2024 3:02p m Chief Complaint Admit Date XATA NEW EMPLOYEE PHYSICAL June 05 2:09pm EORDERS July 16, 2024 3:02p m VAG BLEEDING July 24, 2024 8:23a m Chief Complaint Admit Date BMS NEW EMPLOYEE PHYSICAL June 05 2:09pm EORDERS July 16, 2024 3:02p m VAG BLEEDING July 24, 2024 8:23a m NEW EMPLOYEE July 29, 2024 4:02 pm NEW PATIENT July 30, 2024 8:17 am Reason for Visit Admit Date Belching July 30, 2024 8:17 am Diarrhea July 30, 2024 8:17 am Fecal incontinence July 30, 2024 8:17 am Fecal urgency July 30, 2024 8:17 am Heartburn July 30, 2024 8:17 am Lower abdominal pain July 30, 2024 8:1 7am Nausea & vomiting July 30, 2024 8:17 am Steatosis, liver July 30, 2024 8:17 am Chief Complaint Admit Date BMS NEW EMPLOYEE PHYSICAL June 05 2:09pm EORDERS July 16, 2024 3:02p m VAG BLEEDING July 24, 2024 8:23a m NEW EMPLOYEE July 29, 2024 4:02 pm NEW PATIENT July 30, 2024 8:17 am INT LAB ORDERS July 30, 2024 3:34 pm DIARRHEA, FECAL URGENCY, FECAL INCONTINE NCE, BELCH August 05, 2024 7:22am Chief Complaint Admit Date BMS NEW EMPLOYEE PHYSICAL June 05 2:09pm EORDERS July 16, 2024 3:02p m VAG BLEEDING July 24, 2024 8:23a m NEW EMPLOYEE July 29, 2024 4:02 pm NEW PATIENT July 30, 2024 8:17 am INT LAB ORDERS July 30, 2024 3:34 pm DIARRHEA, FECAL URGENCY, FECAL INCONTINE NCE, BELCH August 05, 2024 7:22am MED REFILL-OK PER DR MARKS August 13, 2024 2:23pm Chief Complaint Admit Date BMS NEW EMPLOYEE PHYSICAL June 05 2:09pm EORDERS July 16, 2024 3:02p m VAG BLEEDING July 24, 2024 8:23a m NEW EMPLOYEE July 29, 2024 4:02 pm NEW PATIENT July 30, 2024 8:17 am INT LAB ORDERS July 30, 2024 3:34 pm DIARRHEA, FECAL URGENCY, FECAL INCONTINE NCE, BELCH August 05, 2024 7:22am MED REFILL-OK PER DR MARKS August 13, 2024 2:23pm Bleeding September 01, 2024 12:5 7pm Reason for Visit Admit Date Belching July 30, 2024 8:17 am Diarrhea July 30, 2024 8:17 am Fecal incontinence July 30, 2024 8:17 am Fecal urgency July 30, 2024 8:17 am Heartburn July 30, 2024 8:17 am Lower abdominal pain July 30, 2024 8:1 7am Nausea & vomiting July 30, 2024 8:17 am Steatosis, liver July 30, 2024 8:17 am Genital herpes August 13, 2024 2:23 pm Liver fibrosis August 13, 2024 2:23 pm Menorrhagia August 13, 2024 2:23 pm Metabolic dysfunction-associ ated steatotic liver disease (MASLD) August 13, 2024 2:23pm COVID-19 vaccination declined August 13, 2024 2:23pm Establishing care with new doctorpatricia for August 13, 2024 2:23pm PCOS (polycystic ovarian syndrome) August 13, 2024 2:23pm Tingling of left upper extremity August 132024 2:23pm Morbid obesity with BMI of 50.0-59.9, ad ult August 13, 2024 2:23pm Anxiety and depression August 13, 2024 2 :23pm Menorrhagia September 01, 2024 12:5 7pm Ovarian cyst, left September 01, 2024 12:5 7pm Chief Complaint Admit Date BMS NEW EMPLOYEE PHYSICAL June 05 2:09pm EORDERS July 16, 2024 3:02p m VAG BLEEDING July 24, 2024 8:23a m NEW EMPLOYEE July 29, 2024 4:02 pm NEW PATIENT July 30, 2024 8:17 am INT LAB ORDERS July 30, 2024 3:34 pm DIARRHEA, FECAL URGENCY, FECAL INCONTINE NCE, BELCH August 05, 2024 7:22am MED REFILL-OK PER DR MARKS August 13, 2024 2:23pm Bleeding September 01, 2024 12:5 7pm INT LAB ORDERS September 02, 2024 1:19 pm FU LUZMARIA VALDOVINOS September 05, 2024 7:57 am Reason for Visit Admit Date Belching July 30, 2024 8:17 am Diarrhea July 30, 2024 8:17 am Fecal incontinence July 30, 2024 8:17 am Fecal urgency July 30, 2024 8:17 am Heartburn July 30, 2024 8:17 am Lower abdominal pain July 30, 2024 8:1 7am Nausea & vomiting July 30, 2024 8:17 am Steatosis, liver July 30, 2024 8:17 am Genital herpes August 13, 2024 2:23 pm Liver fibrosis August 13, 2024 2:23 pm Menorrhagia August 13, 2024 2:23 pm Metabolic dysfunction-associ ated steatotic liver disease (MASLD) August 13, 2024 2:23pm COVID-19 vaccination declined August 13, 2024 2:23pm Establishing care with new doctor, patricia french for August 13, 2024 2:23pm PCOS (polycystic ovarian syndrome) August 13, 2024 2:23pm Tingling of left upper extremity August 132024 2:23pm Morbid obesity with BMI of 50.0-59.9, ad ult August 13, 2024 2:23pm Anxiety and depression August 13, 2024 2 :23pm Menorrhagia September 01, 2024 12:5 7pm Obesity September 01, 2024 12:5 7pm Ovarian cyst, left September 01, 2024 12:5 7pm PCOS (polycystic ovarian syndrome) September 01, 2024 12:57pm Vitamin D deficiency September 05, 2024 7:5 7am Reason for Visit [facility]17 am Diarrhea July 30, 2024 8:17 am Fecal incontinence July 30, 2024 8:17 am Fecal urgency July 30, 2024 8:17 am Heartburn July 30, 2024 8:17 am Lower abdominal pain July 30, 2024 8:1 7am Nausea & vomiting July 30, 2024 8:17 am Steatosis, liver July 30, 2024 8:17 am Genital herpes August 13, 2024 2:23 pm Liver fibrosis August 13, 2024 2:23 pm Menorrhagia August 13, 2024 2:23 pm Metabolic dysfunction-associ ated steatotic liver disease (MASLD) August 13, 2024 2:23pm COVID-19 vaccination declined August 13, 2024 2:23pm Establishing care with new doctorpatricia for August 13, 2024 2:23pm PCOS (polycystic ovarian syndrome) August 13, 2024 2:23pm Tingling of left upper extremity August 132024 2:23pm Morbid obesity with BMI of 50.0-59.9, ad ult August 13, 2024 2:23pm Anxiety and depression August 13, 2024 2 :23pm Menorrhagia September 01, 2024 12:5 7pm Obesity September 01, 2024 12:5 7pm Ovarian cyst, left September 01, 2024 12:5 7pm PCOS (polycystic ovarian syndrome) September 01, 2024 12:57pm Metabolic dysfunction-associ ated steatotic liver disease (MASLD) September 05, 2024 7:57am Obesity September 05, 2024 7:57 am PCOS (polycystic ovarian syndrome) September 05, 2024 7:57am Steatohepatitis, non-alcoholic August 7:57am Vitamin D deficiency September 05, 2024 7:5 7am Additional Source Comments INFORMATION SOURCE (unrecogn ized section and content) DATE CREATED AUTHOR 08/10/2017 [facility] DATE CREATED AUTHOR AUTHOR'S ORGANIZ ATION 11/01/2017 [facility] DATE CREATED AUTHOR AUTHOR'S ORGANIZ ATION 11/10/2017 [facility] DATE CREATED AUTHOR AUTHOR'S ORGANIZ ATION 07/23/2018 [facility] DATE CREATED AUTHOR AUTHOR'S ORGANIZ ATION 01/23/2019 [facility] DATE CREATED AUTHOR AUTHOR'S ORGANIZ ATION 02/09/2022 [facility] DATE CREATED AUTHOR AUTHOR'S ORGANIZ ATION 09/04/2023 [facility] DATE CREATED AUTHOR AUTHOR'S ORGANIZ ATION 01/06/[address] [facility] DATE CREATED AUTHOR AUTHOR'S ORGANIZ ATION 09/09/2024 [facility] Reason for Visit (unrecogniz ed section and content) Reason Comments Abdominal Pain Pt complaining of lo wer abd pain that is cramping. States pain started approximately 1 hour ago. Denies vaginal discharge to bleeding. Pt is 13 weeks Goals (unrecognized section and content) Goals may be documented in a n alternate sectionGoals may be documented in an alternate sectionGoals may be documented in an alternate sectionGoals may be documented in an alternate sectionGoals may be documented in an alternate sectionGoals may be documented in an alternate sectionGoals may be documented in an alternate sectionGoals may be documented in an alternate sectionGoals may be documented in an alternate sectionGoals may be documented in an alternate sectionGoals may be documented in an alternate sectionGoals may be documented in an alternate section No data available for this section No data available for this section No data available for this section No data available for this section No data available for this section No data available for this section No data available for this section No data available for this section No data available for this sectionGoals may be documented in an alternate sectionGoals may be documented in an alternate sectionGoals may be documented in an alternate sectionGoals may be documented in an alternate sectionGoals may be documented in an alternate sectionGoals may be documented in an alternate sectionGoals may be documented in an alternate sectionGoals may be documented in an alternate sectionGoals may be documented in an alternate section Care Teams (unrecognized sec tion and content) Team Status: Active Member Role Status Dates Dr. Tiffany Marks MD Primary Care Provider Active Team Status: Active Member Role Status Dates Employee Health Attending Provider Active Start: June 05, 2024 Team Status: Active Member Role Status Dates JEFF VELASCO Primary Care Provider Active Start: June 05, 2024 Health Risk Assessment Attending Provider Active Start: June 05, 2024 Health Risk Assessment Referring Provider Active Start: June 05, 2024 Team Status: Inactive Member Role Status Dates JEFF VELASCO Primary Care Provider Active Start: July 16, 2024 End: July 16, 2024 DELMIS Cruz Attending Provider Active Start: July 16, 2024 End: July 16, 2024 DELMIS Cruz Referring Provider Active Start: July 16, 2024 End: July 16, 2024 Team Status: Inactive Member Role Status Dates Dr. Zurdo Maldonado DO Emergency Provider Active Start: July 24, 2024 End: July 24, 2024 Dr. Tiffany Marks MD Primary Care Provider Active Start: July 24, 2024 End: July 24, 2024 Team Status: Inactive Member Role Status Dates Dr. Kiran Anglin MD Attending Provider Active Team Status: Active Member Role Status Dates JEFF VELASCO Primary Care Provider Active Team Status: Active Member Role Status Dates Dr. Tiffany Marks MD Primary Care Provider Active Start: July 29, 2024 Health Risk Assessment Attending Provider Active Start: July 29, 2024 Health Risk Assessment Referring Provider Active Start: July 29, 2024 Team Status: Inactive Member Role Status Dates JEFF VELASCO Referring Provider Active Sta rt: July 30, 2024 End: July 30, 2024 DELMIS Crenshaw Attending Provider Active Start: July 30, 2024 End: July 30, 2024 Dr. Tiffany Marks MD Primary Care Provider Active Start: July 30, 2024 End: July 30, 2024 Team Status: Inactive Member Role Status Dates Dr. Zurdo Maldonado DO Attending Provider Active Start: July 24, 2024 End: July 24, 2024 Dr. Zurdo Maldonado DO Emergency Provider Active Start: July 24, 2024 End: July 24, 2024 Dr. Tiffany Marks MD Primary Care Provider Active Start: July 24, 2024 End: July 24, 2024 Team Status: Inactive Member Role Status Dates Dr. Tiffany Marks MD Primary Care Provider Active Start: July 30, 2024 End: July 30, 2024 DELMIS Crenshaw Attending Provider Active Start: July 30, 2024 End: July 30, 2024 DELMIS Crenshaw Referring Provider Active Start: July 30, 2024 End: July 30, 2024 Team Status: Active Member Role Status Dates Dr. Tiffany Marks MD Primary Care Provider Active Start: August 05, 2024 DELMIS Crenshaw Attending Provider Active Start: August 05, 2024 DELMIS Crenshaw Referring Provider Active Start: August 05, 2024 Team Status: Inactive Member Role Status Dates Dr. Tiffany Marks MD Primary Care Provider Active Start: August 05, 2024 End: August 05, 2024 DELMIS Crenshaw Attending Provider Active Start: August 05, 2024 End: August 05, 2024 DELMIS Crenshaw Referring Provider Active Start: August 05, 2024 End: August 05, 2024 Team Status: Inactive Member Role Status Dates Dr. Tiffany Marks MD Primary Care Provider Active Start: August 13, 2024 End: August 13, 2024 Dr. Tiffany Marks MD Attending Provider Active Start: August 13, 2024 End: August 13, 2024 Dr. Tiffany Marks MD Referring Provider Active Start: August 13, 2024 End: August 13, 2024 Team Status: Active Member Role/Relationship Status Dates Dr. Tiffany Marks MD Primary Care Provider Active Team Status: Active Member Role/Relationship Status Dates Employee Health Attending Provider Active Start: June 05, 2024 Team Status: Active Member Role/Relationship Status Dates JEFF VELASCO Primary Care Provider Active Start: June 05, 2024 Health Risk Assessment Attending Provider Active Start: June 05, 2024 Health Risk Assessment Referring Provider Active Start: June 05, 2024 Team Status: Inactive Member Role/Relationship Status Dates JEFF VELASCO Primary Care Provider Active Start: July 16, 2024 End: July 16, 2024 DELMIS Cruz Attending Provider Active Start: July 16, 2024 End: July 16, 2024 DELMIS Cruz Referring Provider Active Start: July 16, 2024 End: July 16, 2024 Team Status: Inactive Member Role/Relationship Status Dates Dr. Zurdo Maldonado DO Attending Provider Active Start: July 24, 2024 End: July 24, 2024 Dr. Zurdo Maldonado DO Emergency Provider Active Start: July 24, 2024 End: July 24, 2024 Dr. Tiffany Marks MD Primary Care Provider Active Start: July 24, 2024 End: July 24, 2024 Team Status: Active Member Role/Relationship Status Dates Dr. Tiffany Marks MD Primary Care Provider Active Start: July 29, 2024 Health Risk Assessment Attending Provider Active Start: July 29, 2024 Health Risk Assessment Referring Provider Active Start: July 29, 2024 Team Status: Inactive Member Role/Relationship Status Dates JEFF VELASCO Referring Provider Active Sta rt: July 30, 2024 End: July 30, 2024 Ashley Larose NP-C Attending Provider Active Start: July 30, 2024 End: July 30, 2024 Dr. Tiffany Marks MD Primary Care Provider Active Start: July 30, 2024 End: July 30, 2024 Team Status: Inactive Member Role/Relationship Status Dates Dr. Tiffany Marks MD Primary Care Provider Active Start: July 30, 2024 End: July 30, 2024 Ashley Larose [employer]-C Attending Provider Active Start: July 30, 2024 End: July 30, 2024 Ashley Larose NP-C Referring Provider Active Start: July 30, 2024 End: July 30, 2024 Team Status: Inactive Member Role/Relationship Status Dates Dr. Tiffany Marks MD Primary Care Provider Active Start: August 05, 2024 End: August 05, 2024 Ashley Larose [employer]-C Attending Provider Active Start: August 05, 2024 End: August 05, 2024 Ashley Larose NP-C Referring Provider Active Start: August 05, 2024 End: August 05, 2024 Team Status: Inactive Member Role/Relationship Status Dates Dr. Tiffany Marks MD Primary Care Provider Active Start: August 13, 2024 End: August 13, 2024 Dr. Tiffany Marks MD Attending Provider Active Start: August 13, 2024 End: August 13, 2024 Dr. Tiffany Marks MD Referring Provider Active Start: August 13, 2024 End: August 13, 2024 Team Status: Inactive Member Role/Relationship Status Dates Dr. Tiffany Marks MD Primary Care Provider Active Start: September 01, 2024 End: September 01, 2024 Dr. Tiffany Marks MD Referring Provider Active Start: September 01, 2024 End: September 01, 2024 Simin Yu NP [employer]-C Attending Provider Active Start: September 01, 2024 End: September 01, 2024 Team Status: Active Member Role/Relationship Status Dates JEFF VELASCO Primary Care Provider Active Team Status: Active Member Role/Relationship Status Dates Dr. Tiffany Marks MD Primary Care Provider Active Start: September 02, 2024 DELMIS Crenshaw Attending Provider Active Start: September 02, 2024 DELMIS Crenshaw Referring Provider Active Start: September 02, 2024 Team Status: Inactive Member Role/Relationship Status Dates DELMIS Crenshaw Attending Provider Active Start: September 05, 2024 End: September 05, 2024 JEFF VELASCO Primary Care Provider Active Start: September 05, 2024 End: September 05, 2024 JEFF VELASCO Referring Provider Active Sta rt: September 05, 2024 End: September 05, 2024 Team Status: Inactive Member Role/Relationship Status Dates Dr. Tiffany Marks MD Primary Care Provider Active Start: September 02, 2024 End: September 02, 2024 DELMIS Crenshaw Attending Provider Active Start: September 02, 2024 End: September 02, 2024 DELMIS Crenshaw Referring Provider Active Start: September 02, 2024 End: September 02, 2024 FOR RECORDS PERTAINING TO PATIENTS WHO ARE OR HAVE BEEN ENROLLED IN A CHEMICAL DEPENDENCY/SUBSTANCEABUSE PROGRAM, SOME INFORMATION MAY BE OMITTED. This clinical summary was aggregated from multiple sources. Caution should be exercised in using it in the provision of clinical care. This summary normalizes information from multiple sources, and as a consequence, information in this document may materially change the coding, format and clinical context of patient data. In addition, data may be omitted in some cases. CLINICAL DECISIONS SHOULD BE BASED ON THE PRIMARY CLINICAL RECORDS. [email or web address] provides no warranty or guarantee of the accuracy or completeness of information in this document.
[2024-09-10 21:54] LABS: Cholesterol 254 mg/dL (<=200); Low Density Lipoprotein Calc. 153 mg/dL; Triglycerides 270 mg/dL; Very Low Density Lipoprotein 54 mg/dL (5-40); cholesterol:hdl ratio screen 5.35
[2024-09-10 21:56] LABS: Ferritin 135 ng/mL (22-378); Vitamin D,25 Hydroxy 21.2 ng/mL (30-100)
[2024-09-11 13:08] LABS: ANTINUCLEAR ANTIBODIES DIRECT Negative (Negative)
[2024-09-11 16:09] LABS: Anti-Smooth Muscle ABS 10 Units (0-19); Cytoplasmic Ab (C-ANCA) <1:20 titer (Neg:<1:20); Perinuclear Ab (P-ANCA) <1:20 titer (Neg:<1:20)
== END | disposition home or self-care (01) ==
LOC: LAB 11:28
PROVIDERS: PCP Nurse Practitioner Adult Health; Referring Provider Nurse Practitioner Acute Care; Visit Provider Nurse Practitioner Acute Care
DX: E55.9 Vitamin D deficiency, unspecified (principal); E66.813 Obesity, class 3; Z68.42 Body mass index [BMI] 45.0-49.9, adult; E28.2 Polycystic ovarian syndrome; K75.81 Nonalcoholic steatohepatitis (NASH)
CPT/HCPCS: 36415; 80061; 82306; 82390; 82728; 83036; 83516; 83540; 83550; 84443; 86037; 86038; 86225

== ENCOUNTER → 2024-09-19 | Outpatient (CLI) | payer OTHER, SELFPAY ==
--- NOTE | 2024-09-19 16:01 | US_ITS ---
PROCEDURE: PELVIC W/ TRANSVAGINAL 09/19/2024 REASON FOR EXAM: BLEEDING, LEFT OVARIAN CYST TECHNIQUE: PELVIC W/ TRANSVAGINAL COMPARISON: Reviewed FINDINGS: Transabdominal transvaginal scanning performed. Bilateral ovaries are normal with preserved symmetric vascular flow. No abnormal fluid in the cul-de-sac. Urinary bladder is unremarkable. Endometrium is normal measuring 7 mm. Uterus is anteverted measuring 9.7 x 4.9 x 4.2 cm. Cervix is normal. Prominent simple left-sided ovarian cyst measuring 2.6 x 1.9 x 1.6 cm, not as conspicuous previously. US/Pelvic w/ Transvaginal IMPRESSION: As above. [facility]
== END | disposition home or self-care (01) ==
LOC: US 15:58
PROVIDERS: PCP Nurse Practitioner Adult Health; Referring Provider Nurse Practitioner Women's Health; Visit Provider Nurse Practitioner Women's Health
DX: N92.1 Excessive and frequent menstruation with irregular cycle (principal); N83.202 Unspecified ovarian cyst, left side
CPT/HCPCS: 76830; 76856

== ENCOUNTER 2024-10-14 11:52 | Outpatient (CLI) | payer MEDICAID, SELFPAY ==
--- NOTE | 2024-10-14 | EMB_PTH ---
PATIENT: JOSE G MODI [facility] U#:[id number] AGE/SX: / ROOM: RE10/14/[address]: DELMIS Al[place]te : 2000 BED: DIS: 10/14/2024 SPEC #: [id number] RECD: 10/14/24 12:18 STATUS: DOMINIQUE RECathy #: [id number] TESSA: 10/14/24 00:[address]: Simin Yu NP DEPT: SURGICAL PATHOLOGY RECD BY: Jefferson Rapp ENTERED: 10/14/24 13:51 SP TYPE: ENDOM BX/C SPENCER DR: JEFF VELASCO Tissues: A - Endometrium, NOS Procedures: Surgery Specimen Level IV HEADER OPERATION: Endometrial biopsy PRE-OP DIAGNOSIS: Abnormal uterine bleeding TISSUE SUBMITTED: A- Endometrial lining MICROSCOPIC DIAGNOSIS A. Endometrium, biopsy: - Few fragments of proliferative endometrium - see note. Note: Clinical correlation is necessary to assess the adequacy of this tissue sampling. MICROSCOPIC DESCRIPTION Slides are reviewed. GROSS DESCRIPTION A. Received in formalin labeled with the patient's name and date of is a 2.8 x 1.3 x 0.2 cm aggregate of mucoid material admixed with flecks of pink-red tissue. Entirely submitted in 1 cassette. The entirety of the specimen is unlikely to survive processing. [place] 10/14/2024 CPT:21878
== END 2024-10-14 23:59 | disposition home or self-care (01) ==
PROVIDERS: PCP Nurse Practitioner Adult Health; Visit Provider Nurse Practitioner Women's Health
DX: N93.9 Abnormal uterine and vaginal bleeding, unspecified (principal)
CPT/HCPCS: 88305

== ENCOUNTER → 2024-10-14 | Outpatient (CLI) | payer OTHER, SELFPAY ==
--- NOTE | 2024-10-14 11:30 | NM_ITS ---
PROCEDURE: HEPATOBILLIARY IMG W/PHARM INT, plus gallbladder ejection fraction. 10/14/2024 REASON FOR EXAM: RUQ PAIN. Diarrhea, and vomiting. TECHNIQUE: Intravenous Choletec with planar imaging of the abdomen. RADIOPHARMACEUTICAL: Intravenous administration 6.0 mCi technetium 99 M mebrofenin. The gallbladder ejection fraction was obtained following intravenous administration of 3.2 mcg cholecystokinin. COMPARISON: CT examination 06/12/2020 FINDINGS: Satisfactory hepatic uptake and clearance is seen.. Normal gallbladder visualization with the gallbladder identified by 15 minutes. Small bowel activity is seen by the 30 minute film. Following cholecystokinin administration, no significant gallbladder ejection was seen, through 31 minutes. NM/Hepatobilliary Img w/Pharm Int IMPRESSION: 1. No significant gallbladder ejection is seen through 31 minutes, following ch olecystokinin administration. In the correct clinical circumstance, this may be seen with chronic cholecystitis. 2. Negative hepatobiliary scan, otherwise. Reading Location: [place] [id number]
== END | disposition home or self-care (01) ==
LOC: NM 11:26
PROVIDERS: PCP Nurse Practitioner Adult Health; Referring Provider Student in an Organized Health Care Education/Training Program; Visit Provider Student in an Organized Health Care Education/Training Program
DX: R10.11 Right upper quadrant pain (principal)
CPT/HCPCS: 78227; A9537; J2805

== ENCOUNTER → 2024-11-19 | Outpatient (CLI) | payer MEDICAID, SELFPAY ==
--- NOTE | 2024-11-19 16:35 | US_ITS ---
PROCEDURE: PELVIC W/ TRANSVAGINAL 11/19/2024 REASON FOR EXAM: HEAVY BLEEDING AFTER IUD INSERTION TECHNIQUE: Procedure Code: [id number] Modality: US Procedure: PELVIC W/ TRANSVAGINAL COMPARISON: 09/19/2024 FINDINGS: Since the previous study, patient has undergone insertion of an IUD. IUD is noted in the lower uterine segment, does not appear to extend to the fundus. Uterus: Anteverted measuring 10.1 x 5.9 x 4.5 cm. Myometrium is homogeneous, no demonstrated fibroid. Endometrium: Hyperechoic, thickness of 12 mm Right ovary: 3.9 x 2.7 x 2.7 cm, no suspicious mass, normal color Doppler flow. Left ovary: 3.2 x 2.8 x 2.4 cm there is a simple cyst measuring 2.5 cm. No suspicious mass. Normal color Doppler flow. Other: No free fluid in the cul de sac, bladder is incompletely distended US/Pelvic w/ Transvaginal IMPRESSION: Environmental Program Manager notes IUD in the lower uterine segment, it does not extend to the f undus. Simple left adnexal cyst, no specific follow-up No free fluid Reading Location: [id number]
[2024-11-19 18:00] LABS: Hematocrit 37.8 % (37-47); Hemoglobin 12.5 g/dL (12.0-15.0); Immature Granulocytes Count 0.020 X10^3/uL (0.0-0.0); Mean Corp Hgb Conc 33.1 g/dL (32-36); Mean Corpuscular Volume 78.3 fL (81-99); Mean Platelet Vol. 12.1 fl (6.2-12.0); NRBC Flagged by Analyzer 0 % (0-5); Platelet Count 271 K/mm3 (150-450); RBC Distribution Width CV 13.5 % (11.6-14.6); RBC Distribution Width SD 38.4 fl (35.1-43.9); Red Blood Count 4.83 M/mm3 (4.2-5.4); White Blood Count 7.6 K/mm3 (4.4-11.0)
== END | disposition home or self-care (01) ==
PROVIDERS: PCP Nurse Practitioner Adult Health; Referring Provider Obstetrics & Gynecology; Visit Provider Obstetrics & Gynecology
DX: N92.1 Excessive and frequent menstruation with irregular cycle (principal); Z97.5 Presence of (intrauterine) contraceptive device
CPT/HCPCS: 36415; 76830; 76856; 85025

== ENCOUNTER 2024-12-04 05:58 | Day surgery (SDC) | payer MEDICAID, SELFPAY ==
--- NOTE | 2024-11-25 09:49 | EKG12_ITS ---
Test Reason : PREOP Blood Pressure : */* mmHG Vent. Rate : 77 BPM Atrial Rate : 77 BPM P-R Int : 164 ms QRS Dur : 100 ms QT Int : 388 ms P-R-T Axes : 23 66 24 degrees QTcB Int : 439 ms Normal sinus rhythm Normal ECG Confirmed by NISH BEJARANO, MARGO ([id number]), offline editor ALFONSO GONZALEZ ([id number]) on 11/25/2024 1:47:18 PM Referred By: Luis Pandya Confirmed By: MARGO MOCK MD
--- NOTE | 2024-11-25 09:49 | EKG12_ITS ---
Test Reason : PREOP Blood Pressure : */* mmHG Vent. Rate : 77 BPM Atrial Rate : 77 BPM P-R Int : 164 ms QRS Dur : 100 ms QT Int : 388 ms P-R-T Axes : 23 66 24 degrees QTcB Int : 439 ms Normal sinus rhythm Normal ECG Confirmed by NISH BEJARANO, MARGO ([id number]), subeditor ALFONSO GONZALEZ ([id number]) on 11/25/2024 1:47:18 PM Referred By: Luis Pandya Confirmed By: MARGO MOCK MD
[2024-11-25 11:06] LABS: Anion Gap 13 (5-15); BUN 10 mg/dL (4-19); BUN/Creat Ratio 14.5 RATIO (10-20); Calcium,Total 9.5 mg/dL (7.6-11.0); Carbon Dioxide 22.7 mmol/L (21.0-32.0); Chloride 105 mmol/L (98-108); Estimated Creatinine Clearance 197.87 ml/min (50-250); Glucose 94 mg/dL (70-99); Potassium 3.8 mmol/L (3.3-5.1)
[2024-12-04] VITALS (12 sets, daily range): BP systolic 106–136; BP diastolic 55–84; PULSE 78–93; RESP 16–17; TEMP 36.1–36.4; O2SAT 93–100; BMI 51.4
--- OUTSIDE RECORDS SUMMARY | 2024-12-04 06:03 | XMS RPT_ITS | CCD ---
Author Organization [facility] CliniSyor Care Team Providers Care Sewer Line Repairer Name Role Phone AUSTEN, WALTER Unavailable Unavailable AUSTEN, WALTER Unavailable Unavailable AUSTEN, WALTER Unavailable Unavailable PCP, NO Unavailable Unavailable PCP, NO Unavailable Unavailable KORINA RAMIREZ MD Unavailable Unavailable KORINA RAMIREZ MD Unavailable Unavailable PCP, NO Unavailable Unavailable PCP, NO Unavailable Unavailable KORINA RAMIREZ MD Unavailable Unavailable Sara Walters Unavailable [phone] SARA WALTERS Unavailable Unavailable ZACK, LYDIA NOOR Unavailable Unavailable ZACK, LYDIA NOOR Unavailable Unavailable SARA WALTERS Unavailable Unavailable LIBERTAD DONNELLY Admitting Unav ailable LIBERTAD DONNELLY Attending Unav ailable Sara Walters Primary Care Unavailable SARA WALTERS Consulting Unavailable Sara Walters Primary Care Provider WILLOW MOSCOSO Referring Unavailable WILLOW MOSCOSO Admitting Unavailable WILLOW MOSCOSO Attending Unavailable PHYSICIAN, NONE Primary Care Physician Unavailab le MAST EARLY MORNING BABYSITTER-DIRECTOR OF ACCOUNTS RECEIVABLE, MICHELLE Primary Care Physician PHYSICIAN, NONE Primary Care Unavailable ANDREEA BEJARANO, DR BLAYNE Parikh Attending Unavailabl IVANA Lima MD Attending Unavail able MAST EARLY MORNING BABYSITTER-DIRECTOR OF ACCOUNTS RECEIVABLE, MICHELLE Primary Care Unavailabl e MARTELL BEJARANO, DR ZEYNEP Nichols Attending Unavai lable MAST EARLY MORNING BABYSITTER-DIRECTOR OF ACCOUNTS RECEIVABLE, MICHELLE Primary Care Unavailabl e PHYSICIAN, NONE Primary Care Unavailable ANDREEA BEJARANO, DR BLAYNE Parikh Attending Unavailabl michael SANTANA MD, DR SHAW Attending Unavailab le MAST EARLY MORNING BABYSITTER-DIRECTOR OF ACCOUNTS RECEIVABLE, MICHELLE Primary Care Unavailabl e DERIK EARLY MORNING BABYSITTER-DIRECTOR OF ACCOUNTS RECEIVABLE, ARACELIS Attending Unavailab le MAST EARLY MORNING BABYSITTER-DIRECTOR OF ACCOUNTS RECEIVABLE, MICHELLE Primary Care Unavailabl e DERIK EARLY MORNING BABYSITTER-DIRECTOR OF ACCOUNTS RECEIVABLE, SAYEDA Attending Unavailab le MAST EARLY MORNING BABYSITTER-DIRECTOR OF ACCOUNTS RECEIVABLE, MICHELLE Primary Care Unavailabl e MAST EARLY MORNING BABYSITTER-DIRECTOR OF ACCOUNTS RECEIVABLE, MICHELLE Attending Unavailabl e PHYSICIAN, NONE Primary Care Unavailable DERIK EARLY MORNING BABYSITTER-DIRECTOR OF ACCOUNTS RECEIVABLE, SAYEDA Attending Unavailab le MAST EARLY MORNING BABYSITTER-DIRECTOR OF ACCOUNTS RECEIVABLE, MICHELLE Primary Care Unavailabl e MAST EARLY MORNING BABYSITTER-DIRECTOR OF ACCOUNTS RECEIVABLE, MICHELLE Attending Unavailabl e MAST EARLY MORNING BABYSITTER-DIRECTOR OF ACCOUNTS RECEIVABLE, MICHELLE Primary Care Unavailabl e DERIK EARLY MORNING BABYSITTER-DIRECTOR OF ACCOUNTS RECEIVABLE, EAGLEEDA Attending Unavailab le MAST EARLY MORNING BABYSITTER-DIRECTOR OF ACCOUNTS RECEIVABLE, MICHELLE Primary Care Unavailabl e MARTELL BEJARANO, DR ZEYNEP Nichols Attending Unavai lable MAST EARLY MORNING BABYSITTER-DIRECTOR OF ACCOUNTS RECEIVABLE, MICHELLE Primary Care Unavailabl e MAST EARLY MORNING BABYSITTER-DIRECTOR OF ACCOUNTS RECEIVABLE, MICHELLE Primary Care Unavailabl e DERIK EARLY MORNING BABYSITTER-DIRECTOR OF ACCOUNTS RECEIVABLE, EAGLEEDA Attending Unavailab le Health, Employee Attending Provider MAST POLE FRAMER MACHINE, MICHELLE Primary Care Provider [phone] Assessment, Health Risk Attending Provider Unava ilable Assessment, Health Risk Referring Provider Unava ilable Herlinda SLIP FEEDER-CLibertad Attending Provider [phone] Herlinda SLIP FEEDER-CLibertad Referring Provider Dr. Zurdo Maldonado DO Emergency Provider [phone] Selina BEJARANO, Dr. Allen Primary Care Provider MAST POLE FRAMER MACHINE, MICHELLE Referring Provider Thuan SIMMS-Ashley Hilario Attending Provider Dr. Zurdo Maldonado DO Attending Provider [phone] Thuan SLIP FEEDER-CAshley Referring Provider Dr. Tiffany Marks MD Attending Provider Selina BEJARANO, Dr. Allen Referring Provider Aimee SIMMS-Simin Hilario Attending Provider [phone] Jaja BEJARANO, Dr. Moore Attending Provider [phone] Aimee SLIP FEEDER-CSimin Referring Provider MAST POLE FRAMER MACHINE, MICHELLE Primary Care Provider [phone] Assessment, Health Risk Attending Provider Unava ilable Assessment, Health Risk Referring Provider Unava ilable Atanasov PA, Roxanne Attending Provider [phone] Roxanne Gale Referring Provider [phone] Ya BEJARANO, Dr. Luis Dai Attending Provider Selina BEJARANO, Dr. Allen Primary Care Physician Assessment, Health Risk Attending Physician Unav ailable Thuan SLIP FEEDER-C, Ashley Attending Physician [phone] Selina BEJARANO, Dr. Allen Attending Physician [phone] Aimee SLIP FEEDER-C, Simin Attending Physician [phone] MAST POLE FRAMER MACHINE, MICHELLE Primary Care Physician [phone] Jaja BEJARANO, Dr. Moore Attending Physician Roxanne Gale Attending Physician [phone] Ya BEJARANO, Dr. Luis Dai Attending Physician [phone] Jaja BEJARANO, Dr. Moore Referring Provider Luis Pandya Attending Unavailable MAST, MICHELLE Primary Care Unavailable ThuanJenniferAshley Referring Unavailable MAST, MICHELLE Primary Care Unavailable MAST, MICHELLE Referring Unavailable [place] SLIP FEEDERSimin Attending Unavailable Selina, Tiffany Primary Care Unavailable ThuanJenniferAshley Attending Unavailable MAST, MICHELLE Referring Unavailable Bessemer, Tiffany Primary Care Unavailable Bessemer, Tiffany Referring Unavailable Bessemer, Tiffany Attending Unavailable [place]essemer, Tiffany Primary Care Unavailable Zurdo Maldonado Attending Unavailable BarkmanLibertad Referring Unavailable Libertad Pate Attending Unavailable MAST, MICHELLE Primary Care Unavailable Luis Pandya Referring Unavailable Luis Pandya Attending Unavailable MAST, MICHELLE Primary Care Unavailable MAST, MICHELLE Primary Care Unavailable [place] SLIP FEEDER, Simin Attending Unavailable MAST, MICHELLE Primary Care Unavailable MAST, MICHELLE Referring Unavailable Thuan, Ashley Attending Unavailable MAST, MICHELLE Primary Care Unavailable Teresa Wilkinson Referring Unavailable Teresa Wilkinson Attending Unavailable [place]essemer, Tiffany Primary Care Unavailable Thuan, Ashley Referring Unavailable Thuan, Ashley Attending Unavailable [place], Tiffany Primary Care Unavailable ThuanAshley Attending Unavailable Thuan, Ashley Referring Unavailable [place]essemer, Tiffany Primary Care Unavailable Thuan, Ashley Referring Unavailable Thuan, Ashley Attending Unavailable Thuan, Ashley Referring Unavailable MAST, MICHELLE Primary Care Unavailable Thuan, Ashley Attending Unavailable Roxanne De La Cruz Attending Unavailable MAST, MICHELLE Primary Care Unavailable Raynasov, Roxanne Referring Unavailable Barkman, Libertad Referring Unavailable BarkmanLibertad Attending Unavailable MAST, MICHELLE Primary Care Unavailable Selina, Tiffany Primary Care Unavailable Assessment, Health Risk Referring Unavaila ble Assessment, Health Risk Attending Unavaila ble MAST, MICHELLE Primary Care Unavailable Assessment, Health Risk Referring Unavaila ble Assessment, Health Risk Attending Unavaila ble Ashley Larose Attending Unavailable MAST, MICHELLE Referring Unavailable Teresa Wilkinson Attending Unavailable MAST, MICHELLE Primary Care Unavailable Aimee SLIP FEEDER, Simin Attending Unavailable [place] SLIP FEEDER, Simin Referring Unavailable [place]essemer, Tiffany Primary Care Unavailable Selina, Tiffany Referring Unavailable Aimee SLIP FEEDER, Simin Attending Unavailable ThuanAshley Attending Unavailable MAST, MICHELLE Primary Care Unavailable MAST, MICHELLE Referring Unavailable MAST, MICHELLE Primary Care Unavailable MAST, MICHELLE Referring Unavailable Aimee SLIP FEEDER, Simin Attending Unavailable MAST, MICHELLE Primary Care Unavailable MAST, MICHELLE Referring Unavailable [place] SLIP FEEDER, Simin Attending Unavailable Allergies Allergy Classification Reported Allergen(s) Allergy Type Date of Onset Reaction(s) Facility (1 source) Neomycin; Translations: [neomycin ophthalmic] Drug Allergy [facility] Repository Medications Current Medications Medication Drug Class(es) Dates Sig (Normalized) Sig (Original) acyclovir 400 mg oral tablet (1 source) Herpesvirus Nucleoside Analog DNA Polymerase Inhibitor, Herpes Simplex Virus Nucleoside Analog DNA Polymerase Inhibitor, Herpes Zoster Virus Nucleoside Analog DNA Polymerase Inhibitor Start: 6 acyclovir (ZOVIRAX) 400 MG tablet 24 hr buPROPion hydrochloride 300 mg extended release oral tablet (1 source) Aminoketone Start: 6 buPROPion (WELLBUTRIN XL) 300 MG 24 hr tablet busPIRone hydrochloride 5 mg oral tablet (20 sources) Start: 5 End: 5 take 1 tablet by mouth three times daily Buspirone 5 mg tablet Active 5 mg PO THREE TIMES A DAY 90 2 August 135 4:53pm Complies with drug therapy calcium polycarbophil 625 mg oral tablet (17 sources) Start: 5 Calcium Polycarbophil (Fibercon) 625 mg tablet Active 1250 mg PO daily 180 July 30, 2024 12:00am Complies with drug therapy cephalexin 500 mg oral tablet (2 sources) Cephalosporin Antibacterial Start: 4 End: 4 cephalexin 500 mg oral tablet Dose : 500 mg = 1 tab(s), Oral, TID, X 7 day(s), # 21 tab(s), 0 Refill(s), 03/01/23 7:38:00 PM EST, 158 Start Date: 02/22/23 Stop Date: 03/01/23 Status: Ordered cetirizine hydrochloride 10 mg oral tablet (1 source) Histamine-1 Receptor Antagonist Start: 6 cetirizine (ZYRTEC) 10 MG tablet cyclobenzaprine hydrochloride 10 mg oral tablet (1 source) Muscle Relaxant Start: 8 take 1 tablet by mouth three times daily as needed for muscle spasms cyclobenzaprine 10 MG Tab tablet Take 1 tablet by mouth 3 times daily as needed for Muscle spasms. 15 tablet 0 08/18/2017 Active FLUoxetine 10 mg oral capsule (20 sources) Serotonin Reuptake Inhibitor Start: 5 End: 5 take 1 capsule by mouth once daily Fluoxetine (Prozac) 10 mg capsule Active 10 mg PO daily 30 August 13, 2024 4:54pm Complies with drug therapy medroxyPROGESTERone acetate 10 mg oral tablet (1 source) Progestin Start: 5 metFORMIN hydrochloride 500 mg oral tablet (20 sources) Biguanide Start: 5 End: 5 take 1 tablet by mouth twice daily Metformin 500 mg tablet Active 500 mg PO TWICE A DAY 60 August 13, 2024 4:54pm Complies with drug therapy Start: 10-17-2023 End: 07-29-2024 take 1 tablet by mouth once daily Metformin 500 mg tablet Discontinued 500 mg PO DAILY October 17, 2023 12:00am July 29, 2024 3:32pm Start: 04-23-2023 MetFORMIN (Eqv -Glucophage XR) 500 mg oral tablet, EXTENDED RELEASE Dose : 500 mg = 1 tab(s), Oral, BID, # 60 tab(s), 11 Refill(s), Pharmacy: [facility]/pharmacy #[id number], PCOS (polycystic ovary syndrome) of bilateral ovaries, 170, cm, 04/20/23 16:05:00 EST, Height, kg, 04/20/23 16:05:00 EST, Dosing Weight Start Date: 04/23/23 Status: Ordered Start: 02-26-2023 MetFORMIN (Eqv -Glucophage XR) 500 mg oral tablet, EXTENDED RELEASE Dose : 500 mg = 1 tab(s), Oral, qDay, # 30 tab(s), 11 Refill(s), Pharmacy: [facility]/pharmacy #[id number], PCOS (polycystic ovary syndrome) of bilateral [...] sodium 20 mg delayed release oral tablet (17 sources) Proton Pump Inhibitor Start: 07-30-2024 take 1 tablet by mouth once daily Rabeprazole 20 mg tablet,delayed release (DR/EC) Active 20 mg PO daily 90 July 30, 2024 12:00am Complies with drug therapy spironolactone 25 mg oral tablet (20 sources) Aldosterone Antagonist Start: 10-30-2024 take 2 tablets by mouth once daily Spironolactone 25 mg tablet Active 50 mg PO DAILY October 30, 2024 8:04am Complies with drug therapy Start: 10-17-2023 End: 10-30-2024 take 1 tablet by mouth once daily Spironolactone 25 mg tablet Discontinued 25 mg PO DAILY 30 August 13, 2024 4:54pm October 30, 2024 8:05am Start: 06-25-2023 spironolactone 25 mg oral tablet Dose : 25 mg = 1 tab(s), 0 Refill(s) Start Date: 06/25/23 Status: Ordered Start: 04-20-2023 spironolactone 25 mg oral tablet Dose : 25 mg = 1 tab(s), Oral, BID, Take with food, # 30 tab(s), 11 Refill(s), Pharmacy: [facility]/pharmacy #[id number], PCOS (polycystic ovary syndrome) of bilateral ovaries Hirsutism, 170, cm, 04/20/23 16:05:00 EST, Height, kg, 04/20/23 16:05:00 EST, Dosing Weight Start Date: 04/20/23 Status: Ordered Start: 02-26-2023 spironolactone 25 mg oral tablet Dose : 25 mg = 1 tab(s), Oral, qDay, Take with food, # 30 tab(s), 11 Refill(s), Pharmacy: [facility]/pharmacy #[id number], PCOS (polycystic ovary syndrome) of bilateral ovaries Hirsutism, 172, cm, 02/23/23 15:59:00 EST, Height, kg, 02/23/23 15:59:00 EST, Dosing Weight Start Date: 02/26/23 Status: Ordered Start: 07-29-2015 spironolactone (ALDACTONE) 50 MG tablet tranexamic acid 650 mg oral tablet (16 sources) Antifibrinolytic Agent Start: 09-01-2024 End: 10-30-2024 take 2 tablets by mouth three times daily as needed Tranexamic Acid 650 mg tablet Active 1300 mg PO THREE TIMES A DAY as needed for bleeding October 30, 2024 8:05am Complies with drug therapy valACYclovir 500 mg oral tablet (20 sources) Herpesvirus Nucleoside Analog DNA Polymerase Inhibitor, Herpes Simplex Virus Nucleoside Analog DNA Polymerase Inhibitor, Herpes Zoster Virus Nucleoside Analog DNA Polymerase Inhibitor Start: 05-26-2024 take 1 tablet by mouth once daily Valacyclovir 500 mg tablet Active 500 mg PO daily 30 30 May 26, 2024 7:05am HSV Complies with drug therapy Start: 02-15-2024 End: 05-26-2024 take 1 tablet by mouth twice daily Valacyclovir 500 mg tablet Discontinued 500 mg PO TWICE A DAY 10 5 3 February 15, 2024 1:23pm May 26, 2024 7:06am HSV Start: 12-19-2023 End: 12-22-2023 take 1 tablet by mouth twice daily Valacyclovir 500 mg tablet Discontinued 500 mg PO TWICE A DAY 6 3 0 December 19, 2023 4:08pm December 21, 2023 [...] 0 Refill(s), 04/25/23 9:41:00 AM EST, Pharmacy: [facility]/pharmacy #[id number], 172, cm, 02/23/23 15:59:00 EST, Height, [...] Drug Class(es) Dates Sig (Normalized) Sig (Original) dicyclomine hydrochloride 10 mg oral capsule (20 sources) Anticholinergic Start: 07-30-2024 End: 10-28-2024 take 1 capsule by mouth three times daily Dicyclomine 10 mg capsule Discontinued 10 mg PO THREE TIMES A DAY 90 1 September 26, 2024 8:59am October 28, 2024 8:41pm Start: 06-26-2023 End: 07-03-2023 dicyclomine 10 mg oral capsu le Dose : 10 mg = 1 cap(s), Oral, QID, # 28 cap(s), 0 Refill(s) Start Date: 06/26/23 Stop Date: 07/03/23 Status: Ordered 0.4 ml enoxaparin sodium 100 mg/ml prefilled syringe (20 sources) Low Molecular Weight Heparin Start: 02-05-2022 End: 10-17-2023 Enoxaparin 40 mg/0.4 mL Syringe Discontinued 40 mg SC DAILY 16.8 42 February 05, 2022 1:00am October 17, 2023 11:35am Please supply sharps container, alcohol wipes, and needles/syringes levonorgestrel 0.095807 mg/hr intrauterine system (6 sources) Progestin, Progestin-containi ng Intrauterine Device Start: 10-14-2024 End: 11-20-2024 Levonorgestrel (Mirena) 21 mcg/24hr (up to 8 yrs) 52 mg intrauterine device Discontinued 1 NMA INTRA-UTER ONCE October 14, 2024 12:00am November 20, 2024 2:36pm as a single dose norethindrone 0.35 mg oral tablet (2 sources) Start: 11-24-2024 End: 11-25-2024 take 1 tablet by mouth once daily Norethindrone (Contraceptive) (Shania) 0.35 mg tablet Discontinued 0.35 mg PO daily 28 November 24, 2024 12:00am November 25, 2024 9:48am ondansetron 4 mg disintegrating oral tablet (3 sources) Serotonin-3 Receptor Antagonist Start: 06-25-2023 End: 06-28-2023 ondansetron 4 mg oral tablet, disintegrating Dose : 4 mg = 1 tab(s), Oral, q6hr, PRN as needed for nausea/vomiting, # 12 tab(s), 0 Refill(s), Pharmacy: [facility]/pharmacy #[id number], Nausea with vomiting, 173.8, cm, 06/25/23 16:22:00 EDT, Height, kg, 06/25/23 16:22:00 EDT, Dosing Weight Start Date: 06/25/23 Stop Date: 06/28/23 Status: Ordered Start: 04-03-2023 Zofran 4 mg or al tablet Dose : 4 mg = 1 tab(s), Oral, q8h, PRN Nausea/Vomiting, # 15 tab(s), 0 Refill(s) Start Date: 04/03/23 Status: Ordered oxyCODONE hydrochloride 5 mg oral tablet (20 sources) Opioid Agonist Start: 02-05-2022 End: 10-17-2023 take 1 tablet by mouth every six hours as needed for pain Oxycodone 5 mg Tablet Discontinued 5 mg PO EVERY 6 HOURS NEEDED as needed for Pain Score 7-10 16 4 0 February 05, 2022 October 17, 2023 11:34am Acute postoperative pain Other acute postprocedural pain Pnv No.[id number]-Ep a-Fish ( Gummies) 400 mcg-35 mg- 25 mg-5 mg Tablet,Chewable (20 sources) Start: 11-26-2021 End: 10-17-2023 Pnv No.250-Ab-Ru2-Dha-Epa -Fish ( Gummies) 400 mcg-35 mg- 25 mg-5 mg Tablet,Chewable Discontinued 2 {tbl} PO DAILY November 26, 2021 12:00am October 17, 2023 11:34am Start: 11-26-2021 End: 10-17-2023 Pnv No.768-Vf-Au0-Dha-Epa-Fi sh ( Gummies) 400 mcg-35 mg- 25 mg-5 mg Tablet,Chewable Discontinued 2 {tbl} PO DAILY November 26, 2021 12:00am October 17, 2023 11:34am Start: 11-26-2021 take 2 tablets by mo [facility] once daily Pnv No.[id number]-Ldv-Meu-Iooe ( Gummies) 400 mcg-35 mg- 25 mg-5 mg Tablet,Chewable Active 2 TABLET PO DAILY November 25, 2021 11:00pm Start: 11-26-2021 take 2 tablets by mo [facility] once daily Pnv No.[id number]-Mo-[id number]-[id number]-Mld-Geej ( Gummies) 400 mcg-35 mg- 25 mg-5 mg Tablet,Chewable Active 2 TABLET PO DAILY November 26, 2021 12:00am Semaglutide (Weight Loss) (20 sources) Start: 09-08-2024 End: 09-18-2024 Semaglutide (Weight Loss) (W egovy) 0.25 mg/0.5 mL pen injector Discontinued 0.25 mg SC EVERY WEEK 2 September 08, 2024 11:43am September 18, 2024 8:38am administer weeks 1 through 4 of therapy Start: 09-08-2024 Semaglutide (W eight Loss) (Wegovy) 0.25 mg/0.5 mL pen injector Active 0.25 mg SC EVERY WEEK 2 September 08, 2024 11:43am administer weeks 1 through 4 of therapy Start: 08-18-2024 End: 09-08-2024 Semaglutide (Weight Loss) (W egovy) 0.25 mg/0.5 mL pen injector Discontinued 0.25 mg SC EVERY WEEK 2 August 18, 2024 12:00am September 08, 2024 11:43am administer weeks 1 through 4 of therapy Start: 08-18-2024 Semaglutide (W eight Loss) (Wegovy) 0.25 mg/0.5 mL pen injector Active 0.25 mg SC EVERY WEEK 2 August 18, 2024 12:00am administer weeks 1 through 4 of therapy sertraline 50 mg oral tablet (20 sources) Serotonin Reuptake Inhibitor Start: 11-26-2021 End: 10-17-2023 take 1 tablet by mouth once daily Sertraline (Zoloft) 50 mg Tablet Discontinued 50 mg PO DAILY November 26, 2021 12:00am October 17, 2023 11:35am anxieity/sleep Tirzepatide (4 sources) Start: 08-13-2024 End: 08-18-2024 Tirzepatide (Mounjaro) 2.5 mg/0.5 mL pen injector Discontinued 2.5 mg SC EVERY WEEK 2 0 August 13, 2024 3:14pm August 18, 2024 4:51pm for 4 weeks Start: 10-17-2023 End: 07-29-2024 Tirzepatide (Mounjaro) 2.5 m g/0.5 mL pen injector Discontinued 2.5 mg SC EVERY WEEK October 17, 2023 12:00am July 29, 2024 3:31pm for 4 weeks Tirzepatide (Mounjaro) 2.5 mg/0.5 mL pen injector (20 sources) Start: 08-13-2024 End: 08-18-2024 Tirzepatide (Mounjaro) [...] October 17, 2023 12:00am for 4 weeks Tirzepatide (Weight Loss) (8 sources) Start: 09-22-2024 End: 10-21-2024 Tirzepatide (Weight Loss) (Z epbound) 2.5 mg/0.5 mL pen injector Discontinued 2.5 mg SC EVERY WEEK 2 0 September 22, 2024 12:00am October 21, 2024 2:59pm for 4 weeks Start: 09-22-2024 Tirzepatide (W eight Loss) (Zepbound) 2.5 mg/0.5 mL pen injector Active 2.5 mg SC EVERY WEEK 2 0 September 22, 2024 12:00am for 4 weeks Problems Active Problems Problem Classification Problem Date Documented Da te Episodic/Chronic Abdominal pain (20 sources) Abdominal pain in ; Translations: [Right upper quadrant pain] Onset: 02-22-2023 05-04-2019 Episodic Acquired foot deformities (8 sources) Acquired pes planus 02-23-2023 Episodic Administrative/social admission (20 sources) Patient encounter status; Translations: [Encounter for pre-employment examination] 07-21-2020 Episodic Comment on above: No PA needed per fax ed response. 09/26/24 Anxiety disorders (13 sources) Mixed anxiety and depressive disorder; Translations: [Anxiety disorder, unspecified] 08-13-2024 Chronic Biliary tract disease (20 sources) Biliary colic; Translations: [Calculus of bile duct without cholangitis or cholecystitis without obstruction] Onset: 10-21-2024 05-04-2019 Episodic Blindness and vision defects (17 sources) Amblyopia of left eye; Translations: [Unspecified amblyopia, left eye] 07-29-2024 Episodic Conditions associated with dizziness or vertigo (1 source) Dizziness and giddiness; Translations: [Dizziness and giddiness] Onset: 05-16-2023 Episodic Contraceptive and procreative management (1 source) Encounter for insertion of intrauterine contraceptive device; Translations: [Encounter for insertion of intrauterine contraceptive device] Onset: 11-18-2024 Episodic Early or threatened labor (2 sources) labor without delivery, unspecified trimester; Translations: [ labor without delivery, unspecified trimester] Onset: 01-28-2022 Episodic Gastrointestinal hemorrhage (10 sources) Hematochezia; Translations: [Melena] 09-13-2024 Episodic Hepatitis (20 sources) Nonalcoholic steatohepatitis; Translations: [Nonalcoholic steatohepatitis (ACOSTA)] 09-05-2024 Chronic Hypertension complicating ; childbirth and the puerperium (20 sources) Severe pre-eclampsia; Translations: [Severe pre-eclampsia, unspecified trimester] Episodic Immunizations and screening for infectious disease (13 sources) Suspected disease caused by 2019-nCoV; Translations: [Suspected 2019-nCoV infection] 02-22-2021 Episodic Malaise and fatigue (19 sources) Fatigue; Translations: [Other fatigue] 10-17-2023 Episodic Menstrual disorders (20 sources) Menorrhagia; Translations: [Excessive and frequent menstruation with regular cycle] Onset: 11-19-2024 10-17-2023 Chronic Comment on above: HCGx1 EMB pending, Mirena IUD inserted Nutritional deficiencies (20 sources) Vitamin D deficiency; Translations: [Vitamin D deficiency, unspecified] Onset: 09-15-2024 09-05-2024 Chronic Other and unspecified benign neoplasm [...] of ; puerperium affecting management of mother (20 sources) Deliveries by ; Translations: [Encounter for delivery without indication] 02-17-2022 Episodic Other endocrine disorders (20 sources) Polycystic ovary syndrome; Translations: [Polycystic ovarian syndrome] 09-01-2024 Chronic Comment on above: recommend emb and IU D and AOM. Other female genital disorders (13 sources) Vaginal bleeding; Translations: [Abnormal uterine and vaginal bleeding, unspecified] 10-22-2020 Chronic Other female genital disorders (7 sources) Abnormal uterine and vaginal bleeding, unspecified; Translations: [Other specified noninflammatory disorders of vagina] Onset: 11-19-2024 Chronic Other female genital disorders (1 source) Abnormal uterine bleeding; Translations: [Abnormal uterine and vaginal bleeding, unspecified] Onset: 02-22-2023 Chronic Other female genital disorders (19 sources) Vaginal discharge; Translations: [Other specified noninflammatory disorders of vagina] 10-17-2023 Episodic Other gastrointestinal disorders (1 source) Irritable bowel syndrome 07-09-2023 Chronic Other gastrointestinal disorders (20 sources) Diarrhea; Translations: [Diarrhea, unspecified] Onset: 06-26-2023 Episodic Other gastrointestinal disorders (20 sources) Heartburn; Translations: [Heartburn] 07-30-2024 Episodic Other gastrointestinal disorders (20 sources) Burping; Translations: [Eructation] 07-30-2024 Episodic Other gastrointestinal disorders (20 sources) Incontinence of feces; Translations: [Full incontinence of feces] 07-30-2024 Episodic Other gastrointestinal disorders (20 sources) Urgent desire for stool; Translations: [Fecal urgency] 07-30-2024 Episodic Other liver diseases (20 sources) Steatosis of liver; Translations: [Fatty (change of) liver, not elsewhere classified] 06-13-2020 Chronic Other liver diseases (20 sources) Fatty (change of) liver, not elsewhere classified; Translations: [Metabolic dysfunction-associate d steatotic liver disease (MASLD)] Onset: 11-19-2024 08-05-2024 Chronic Other liver diseases (20 sources) Hepatic fibrosis; Translations: [Hepatic fibrosis] 08-13-2024 Chronic Other nervous system disorders (2 sources) Acute postoperative pain; Translations: [Other acute postprocedural pain] 02-05-2022 Episodic Other nervous system disorders (1 source) Other acute postprocedural pain; Translations: [Other acute postoperative pain] Episodic Other nervous system disorders (13 sources) Paresthesia of left upper limb; Translations: [Paresthesia of skin] 08-13-2024 Episodic Other non-traumatic joint disorders (8 sources) Knee pain 02-23-2023 Episodic Other nutritional; endocrine; and metabolic disorders (20 sources) Body mass index 40+ - severely obese; Translations: [Morbid (severe) obesity due to excess calories] 02-23-2023 Chronic Other nutritional; endocrine; and metabolic disorders (8 sources) Morbid obesity 02-23-2023 Chronic Other nutritional; endocrine; and metabolic disorders (20 sources) Obesity; Translations: [Obesity, unspecified] 09-01-2024 Chronic Comment on above: watching diet, on wy govy/PCP watching diet, recom mend AOM- qsymia or contrave. 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 Other nutritional; endocrine; and metabolic disorders (1 source) Body mass index (BMI) 45.0-49.9, adult; Translations: [Body mass index [BMI] 45.0-49.9, adult] Onset: 11-18-2024 Chronic Other nutritional; endocrine; and metabolic disorders (8 sources) Weight gain 02-23-2023 Episodic Other skin disorders (8 sources) Hirsutism 02-23-2023 Episodic Residual codes; unclassified (13 sources) Immunization not carried out because of patient refusal; Translations: [COVID-19 vaccination declined] 08-13-2024 Episodic Sprains and strains (1 source) Sprain of left ankle; Translations: [Sprain of unspecified ligament of left ankle, initial encounter] Onset: 08-07-2023 Episodic Unclassified (9 sources) Patient encounter status 02-23-2023 Unclassified (8 sources) Polycystic ovary syndrome of bilateral ovaries 02-23-2023 Unclassified (9 sources) Polycystic ovary syndrome Unclassified (9 sources) Metabolic dysfunction-associate d steatotic liver disease (MASLD) Unclassified (9 sources) Nonalcoholic steatohepatitis (ACOSTA) Unclassified (11 sources) E55.9 - Vitamin D deficiency, unspecified,E66.813 - Obesity, class 3,Z68.42 - Body mass index [BMI] 45.0-49.9, adult,E28.2 - Polycystic ovarian syndrome,K76.0 - Fatty (change of) liver, not elsewhere classified,K75.81 - Nonalcoholic steatohepatitis (ACOSTA) Unclassified (2 sources) Metabolic dysfunction-associate d steatotic liver disease (MASLD) Unclassified (1 source) Obesity, class 3; Translations: [Obesity, class 3] Onset: 11-18-2024 Urinary tract infections (20 sources) Urinary tract infectious disease; Translations: [Urinary tract infection, site not specified] Onset: 02-22-2023 06-13-2020 Episodic Viral infection (20 sources) Genital herpes simplex; Translations: [Herpesviral infection of urogenital system, unspecified] 10-01-2023 Chronic Viral infection (20 sources) Viral wart, unspecified; Translations: [Acute viral disease] Onset: 04-17-2017 03-02-2021 Episodic Past or Other Problems Problem Classification Problem Date Documented Da te Episodic/Chronic Nausea and vomiting (20 sources) Nausea and vomiting; Translations: [Nausea with vomiting, unspecified] Onset: 06-26-2023 Episodic Other gastrointestinal disorders (5 sources) Diarrhea, unspecified; Translations: [Diarrhea, unspecified] Onset: 10-24-2017 Episodic Other gastrointestinal disorders (1 source) Fecal urgency; Translations: [Fecal urgency] Onset: 07-30-2024 Episodic Other gastrointestinal disorders (1 source) Full incontinence of feces; Translations: [Full incontinence of feces] Onset: 07-30-2024 Episodic Other gastrointestinal disorders (1 source) Eructation; Translations: [Eructation] Onset: 07-30-2024 Episodic Other gastrointestinal disorders (1 source) Heartburn; Translations: [Heartburn] Onset: 07-30-2024 Episodic Other skin disorders (3 sources) Other hypertrophic disorders of the skin; Translations: [OTHER HYPERTROPHIC DISORDERS SKIN] Onset: 04-12-2017 Episodic Other upper respiratory infections (3 sources) Acute pharyngitis, unspecified; Translations: [ACUTE PHARYNGITIS UNSPECIFIED] Onset: 04-14-2017 Episodic Ovarian cyst (20 sources) Cyst of ovary; Translations: [Unspecified ovarian cyst, left side] Onset: 09-01-2024 10-30-2023 Episodic Results Test Name Value Interpretation Reference Range Facility 12 Lead EKGon 11-25-2024 12 Lead EKG [facility] Cardiovascular Services [address] [place] [address] 12 Lead EKG 11/25/24 0956 MR#: [id number] Acct: [id number] Name: JUANITA PAULINO Rep #: [id number] : 2000 24 From: Agusto Powers MD Attending Dr: Dr. Luis Pandya MD Status: [place] [facility] Ordering Dr: Keyur Neal MD Date: 11/25/24 Location: [facility] Sex: F C Admitted: Test Reason : PREOP Blood Pressure : */* mmHG Vent. Rate : 77 BPM Atrial Rate : 77 BPM P-R Int : 164 ms QRS Dur : 100 ms QT Int : 388 ms P-R-T Axes : 23 66 24 degrees QTcB Int : 439 ms Normal sinus rhythm Normal ECG Confirmed by AGUSTO POWERS MD ([id number]), clinical editor ALFONSO GONZALEZ ([id number]) on 11/25/2024 1:47:18 PM Referred By: Luis Pandya Confirmed By: AGUSTO POWERS MD 11/25/24 1347 Date Agusto Powers MD CC: Dr. Keyur Neal MD; Dr. Luis Pandya MD; JEFF VELASCO Signed Normal [facility] Basic Metabolic Profile (BMP )on 11-25-2024 BUN/CRE 14.5 RATIO Normal 10-20 [facility] Comment on above: Performed By: #### L 500.2500 #### [facility] Laboratory [address] [place], [address] Calcium [Mass/Vol] 9.5 mg/dL Normal 7.6-11.0 [facility] Comment on above: Performed By: #### L 500.2500 #### [facility] [address] [place], [address] Chloride [Moles/Vol] 105 mmol/L Normal 98-108 [facility] Comment on above: Performed By: #### L 500.2500 #### [facility] [address] [place], [address] CO2 [Moles/Vol] 22.7 mmol/L Normal 21.0-32.0 [facility] Comment on above: Performed By: #### L 500.2500 #### [facility] [address] [place], [address] Creatinine [Mass/Vol] 0.65 mg/dL Low 0.70-1.[address] [facility] Comment on above: Performed By: #### L 500.2500 #### [facility] [address] [place], [address] ECRCL 197.87 ml/min Normal 50-250 [facility] Comment on above: Performed By: #### L 500.2500 #### [facility] [address] [place], [address] GAP 13 Normal 5-15 [facility] Comment on above: Performed By: #### L 500.2500 #### [facility] [address] [place], [address] GFR/1.73 sq M.predicted among non-blacks MDRD (S/P/Bld) [Vol rate/Area] 124 mL/min/{1.73_m2} Normal >60 [facility] Comment on above: Result Comment: mL/m in/1.73m2 CKD-EPI Creatinine Equation (2020) Performed By: #### L 500.2500 #### [facility] [address] [place], [address] Glucose [Mass/Vol] 94 mg/dL Normal 70-99 [facility] Comment on above: Performed By: #### L 500.2500 #### [facility] [address] [place], [address] Potassium [Moles/Vol] 3.8 mmol/L Normal 3.3-5.[address] [facility] Comment on above: Performed By: #### L 500.2500 #### [facility] [address] [place], [address] Sodium [Moles/Vol] 141 mmol/L Normal 133-145 [facility] Comment on above: Performed By: #### L 500.2500 #### [facility] [address] [place], [address] Urea nitrogen [Mass/Vol] 10 mg/dL Normal 4-19 [facility] Comment on above: Performed By: #### L 500.2500 #### [facility] [address] 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 Status: Signed Intake Vital Signs 10/30/24 08:09 11/24/24 14:41 11/24/24 14:50 Height 5 ft 7 in 5 ft 7 in 5 ft 7 in Weight: 324 lb 8 oz 323 lb 9 oz BMI 50.8 50.6 BP 114/65 119/72 Respiration 16 Pulse 93 Temp 97.8 F Pulse Oximetry (%) 98 Oxygen Delivery Method room air Intake Visit Reasons: IUD removal per SM - discuss OCP Chief Complaint: IUD removal [employer] Required: No Is patient in pain?: No Allergies No Known Allergies Allergy (Verified 11/24/24 14:41) Medications ???Medication ???Instructions ???Recorded ???Confirmed ???Type valacyclovir 500 mg tablet 500 mg PO QDAY HSV 30 days #30 tab s 05/26/24 11/24/24 Rx calcium polycarbophil 625 mg 1,250 mg (2 x 625 mg) PO QDAY #180 07/30/24 11/24/24 Rx tablet (FiberCon) tabs rabeprazole 20 mg tablet,delayed 20 mg PO QDAY #90 tabs 07/30/24 Rx release buspirone 5 mg tablet 5 mg PO TID #90 tabs 08/13/2408/13 Rx fluoxetine 10 mg capsule (Prozac) 10 mg PO QDAY #30 caps 08/13/24 1 Rx metformin 500 mg tablet 500 mg PO BID #60 tabs 08/13/24 Rx dicyclomine 10 mg capsule 10 mg PO TID #90 caps 10/28/2408/13 Rx spironolactone 25 mg tablet 50 mg PO DAILY 10/30/24 11/24/24 H istory tranexamic acid 650 mg tablet 1,300 mg PO TID PRN bleeding 10/3011/24/24 History norethindrone (contraceptive) 0.35 0.35 mg PO QDAY #28 tabs 5 11/24/24 Rx mg tablet (Shania) Is last menstrual period known: Yes Last Menstrual Period: 11/02/24 Post menopausal: No Patient : No : No [facility] Medical History Wears glasses Depression Anxiety Cholinesterase deficiency Gastric reflux Non-smoker Biliary dyskinesia HSV-2 (herpes simplex virus 2) infection IBS [...] 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 Same sexual partner. Female Reproductive History Last Menstrual Period: 11/02/24 History 2 Elective abortions Hx Para 3 Spontaneous abortions Hx # Term Pregnancies Ectopic pregnancies Hx # Pregnancies Multiple births 1 # of living children 3 Past Pregnancies Del. Date Name GA/Weeks Outcome Route Bth Weight Gen Labor Lgth Anesthesia Del Locatn Provider [...] distress Nutritional Appearance: obese Orientation: oriented x3 Resp Effort Inspection: normal respiratory effort General: bladder normal to palpation External Female Exam: normal external appearance and normal appearance of the urethra Urethra: normal appearance of the urethra Speculum Exam (more content not included)... Normal [facility] Absolute lymphocyte countOrd ered By: Teresa Wilkinson on 11-19-2024 Lymphocytes Auto (Unsp spec) [#/Vol] 2.30 10*3/uL 0.83-4.51 [facility] Absolute neutrophil countOrd ered By: Teresa Wilkinson on 11-19-2024 Neutrophils (Bld) [#/Vol] 4.5 10*3/uL 2.0-7.7 [facility] Automated blood erythrocyte countOrdered By: Teresa Wilkinson on 11-19-2024 RBC (Bld) [#/Vol] 4.83 10*6/uL Normal 4.2-5.4 [facility] Comment on above: Performed By: #### L 100.0100 #### [facility] [address] [place], [place], [address] Automated blood hematocrit ( percentage)Ordered By: Teresa Wilkinson on 11-19-2024 Hematocrit (Bld) [Volume fraction] 37.8 % Normal 37-47 [facility] Comment on above: Performed By: #### L 100.0100 #### [facility] [address] [place], [place], [id number] Automated lymphocyte count a s percentage of total leukocytesOrdered By: Teresa Wilkinson on 11-19-2024 Lymphocytes/100 WBC Auto (Unsp spec) 30.3 % 19-41 [facility] Basophil percentageOrdered B y: Teresa Wilkinson on 11-19-2024 Basophils/100 WBC (Bld) 0.5 % Normal 0-1 [facility] Comment on above: Performed By: #### L 100.0100 #### [facility] [address] [place], [address] CBC W/Diff, Automatedon 10-0 Absolute Lymph 2.30 X10 3/uL Normal 0.83-4.51 [facility] Comment on above: Performed By: #### L 100.0100 #### [facility] [address] [place], [address] Absolute Neut 4.5 X10 3/uL Normal 2.0-7.7 [facility] Comment on above: Performed By: #### L 100.0100 #### [facility] [address] [place], [address] IG% 0.300 Normal 0.0-0.9 [facility] Comment on above: Result Comment: IG% - Immature Granulocytes (promyelocytes, myelocytes and metamyelocytes) > 1% indicates that a LEFT SHIFT is Present. Performed By: #### L 100.0100 #### [facility] [address] [place], [address] Lymphocytes/100 WBC (Bld) 30.3 % Normal 19-41 [facility] Comment on above: Performed By: #### L 100.0100 #### [facility] [address] [place], [address] Nucleated RBC (Bld) [#/Vol] 0 10*3/uL Normal 0-5 [facility] Comment on above: Performed By: #### L 100.0100 #### [facility] [address] [place], [address] RDW SD 38.4 fl Normal 35.1-43.9 [facility] Comment on above: Performed By: #### L 100.0100 #### [facility] [address] [place], [address] Eosinophil percentageOrdered By: Teresa Wilkinson on 11-19-2024 Eosinophils/100 WBC (Bld) 2.0 % Normal 0-5 [facility] Comment on above: Performed By: #### L 100.0100 #### [facility] [address] [place], [place], [phone] ([address]) Erythrocyte distribution wid th ratioOrdered By: Teresa Wilkinson on 11-19-2024 Erythrocyte distribution width (RBC) [Ratio] 13.5 % Normal 11.6-14.6 [facility] Comment on above: Performed By: #### L 100.0100 #### [facility] [address] [place], [address] Erythrocyte distribution wid th standard deviationOrdered By: Teresa Wilkinson on 11-19-2024 Erythrocyte distribution width (RBC) [Ratio] 38.4 fl 35.1-43.9 [facility] Hemoglobin measurementOrdere d By: Teresa Wilkinson on 11-19-2024 Hemoglobin (Bld) [Mass/Vol] 12.5 g/dL Normal 12.0-15.0 [facility] Comment on above: Performed By: #### L 100.0100 #### [facility] [address] [place], [address] Immature granulocytes/100 WB C Auto (Bld)Ordered By: Teresa Wilkinson on 11-19-2024 Immature granulocytes/100 WBC (Bld) 0.300 % 0.0-0.9 [facility] Comment on above: IG% - Immature Granu locytes (promyelocytes, myelocytes and metamyelocytes) > 1% indicates that a LEFT SHIFT is Present. MCV (mean corpuscular volume ) determinationOrdered By: Teresa Wilkinson on 11-19-2024 MCV (RBC) [Entitic vol] 78.3 fL Low 81-99 [facility] Comment on above: Performed By: #### L 100.0100 #### [facility] [address] [place], [place], [phone] Mean corpuscular hemoglobin (MCH) determinationOrdered By: Teresa Wilkinson on 11-19-2024 MCH (RBC) [Entitic mass] 25.9 pg Low 27.0-32.0 [facility] Comment on above: Performed By: #### L 100.0100 #### [facility] [address], [address] Mean corpuscular hemoglobin concentration (MCHC) determinationOrdered By: Teresa Wilkinson on 11-19-2024 MCHC (RBC) [Mass/Vol] 33.1 g/dL Normal 32-[address] [facility] Comment on above: Performed By: #### L 100.0100 #### [facility] [address] [place], [address] Mean platelet volume determi nationOrdered By: Teresa Wilkinson on 11-19-2024 Platelet mean volume (Bld) [Entitic vol] 12.1 fL High 6.2-12.0 [facility] Comment on above: Performed By: #### L 100.0100 #### [facility] [address] [place], [address] Monocyte percentageOrdered B y: Teresa Wilkinson on 11-19-2024 Monocytes/100 WBC (Bld) 7.0 % Normal 0-10 [facility] Comment on above: Performed By: #### L 100.0100 #### [facility] [address] [place], [address] Neutrophil percentageOrdered By: Teresa Wilkinson on 11-19-2024 Neutrophils/100 WBC (Bld) 59.9 % Normal 47-70 [facility] Comment on above: Performed By: #### L 100.0100 #### [facility] [address] [place], [address] Nucleated red blood cell per centageOrdered By: Teresa Wilkinson on 11-19-2024 Nucleated RBC/100 WBC (Bld) [Ratio] 0 % 0-5 [facility] Pelvic w/ Transvaginalon Pelvic w/ Transvaginal [facility] Imaging Services [address] [place] [address] Pelvic w/ Transvaginal MR#: [id number] Acct: [id number] Name: JUANITA PAULINO Rep #: [id number] : 2000 F 24 From: Holden Love MD PCP: JEFF VELASCO Status: REG CLI Study: Pelvic w/ Transvaginal Date of Exam: 11/19/24 Exam# [id number] Ordering Dr: Teresa Wilkinson PROCEDURE: PELVIC W/ TRANSVAGINAL 11/19/2024 REASON FOR EXAM: HEAVY BLEEDING AFTER IUD INSERTION TECHNIQUE: Procedure Code: [id number] Modality: US Procedure: PELVIC W/ TRANSVAGINAL COMPARISON: 09/19/2024 FINDINGS: Since the previous study, patient has undergone insertion of an IUD. IUD is noted in the lower uterine segment, does not appear to extend to the fundus. Uterus: Anteverted measuring 10.1 x 5.9 x 4.5 cm. Myometrium is homogeneous, no demonstrated fibroid. Endometrium: Hyperechoic, thickness of 12 mm Right ovary: 3.9 x 2.7 x 2.7 cm, no suspicious mass, normal color Doppler flow. Left ovary: 3.2 x 2.8 x 2.4 cm there is a simple cyst measuring 2.5 cm. No suspicious mass. Normal color Doppler flow. 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 Simple left adnexal cyst, no specific follow-up No free fluid Reading Location: [facility] CC: Dr. Teresa Wilkinson MD; JEFF VELASCO Stockroom Keeper: Signed Normal [facility] Platelet countOrdered By: Jersey Wilkinson on 11-19-2024 Platelets (Bld) [#/Vol] 271 10*3/uL Normal 150-450 [facility] Comment on above: Performed By: #### L 100.0100 #### [facility] [address] [place], [address] White blood cell (WBC) count Ordered By: Teresa Wilkinson on 11-19-2024 WBC (Bld) [#/Vol] 7.6 10*3/uL Normal 4.4-11.0 [facility] Comment on above: Performed By: #### L 100.0100 #### [facility] [address] [place], [address] Gastroenterology Visit Repor ton 10-30-2024 Gastroenterology Visit Report [facility] Gastroenterology [address] [place] [address] OFFICE VISIT Date of Service: 10/30/24 MR#: [id number] Acct: [id number] Name: JUANITA PAULINO Rep #: [id number] : 2000 Provider: DELMIS jones Age/Sex: 24/F Location: [facility] Status: Signed Intake Vital Signs 09/05/24 08:08 10/23/24 10:02 10/30/24 08:09 Height 5 ft 7 in 5 ft 7 in 5 ft 7 in Weight: 324 lb 324 lb 8 oz BMI 50.7 50.8 BP 114/65 Respiration 16 Pulse 93 Temp 97.8 F Temp Source Temporal Pulse Oximetry (%) 98 Oxygen Delivery Method room air Intake Visit Reasons: 8 WEEK FU Chief Complaint: follow-up [employer] Required: No Accompanied by: Self Is patient in pain?: No Allergies No Known Allergies Allergy (Verified 10/30/24 08:10) Medications ???Medication ???Instructions ???Recorded ???Confirmed ???Type valacyclovir 500 mg tablet 500 mg PO QDAY HSV 30 days #30 tab s 05/26/24 10/30/24 Rx calcium polycarbophil 625 mg 1,250 mg (2 x 625 mg) PO QDAY #180 07/30/24 10/30/24 Rx tablet (FiberCon) tabs rabeprazole 20 mg tablet,delayed 20 mg PO QDAY #90 tabs 07/30/24 Rx release buspirone 5 mg tablet 5 mg PO TID #90 tabs 08/13/2410/20 Rx fluoxetine 10 mg capsule (Prozac) 10 mg PO QDAY #30 caps 08/13/24 0 10/30/24 Rx metformin 500 mg tablet 500 mg PO BID #60 tabs 08/13/24 Rx levonorgestrel (Mirena) 1 device intrauterine ONCE 5 10/30/24 History dicyclomine 10 mg capsule 10 mg PO TID #90 caps 10/28/2401/13 Rx spironolactone 25 mg tablet 50 mg PO DAILY 10/30/24 10/30/24 H istory tranexamic acid 650 mg tablet 1,300 mg PO TID PRN 10/30/2410/30 History PFSH Medical History Biliary dyskinesia HSV-2 (herpes simplex virus 2) infection IBS [...] 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 The symptoms have been persistent for several years, with a noted exacerbation related to dietary intake, particularly with milk and corn, as confirmed by food allergy testing. The patient has been on dicyclomine and rabeprazole, which have shown improvement in stool consistency and frequency. The patient also presents with non-alcoholic fatty liver disease, evidenced by elevated liver enzymes and imaging findings of mild to moderate fibrosis. Weight gain has been noted, which may contribute to the liver enzyme elevation, and the patient is undergoing further evaluation for potential autoimmune liver disease. The patient is advised to continue dietary modifications and physical activity to manage weight and liver health. The patient has a history of vitamin D deficiency and prediabetes, with a fasting glucose level meeting the threshold for diabetes. The patient is currently on vitamin D supplementation and is advised to monitor glucose levels closely. MASLD and PMH of PCOS both significantly increase her long-term risk of cardiovascular disease. Her recent labs are notable for elevated AST of 65 and LAT of 68, with a fasting glucose of 126 and an HbA1c of 5.3%, consistent with impaired fasting glucose and insulin resistance. Despite efforts to increase physical act (more content not included)... Normal [facility] Surgery Visit Reporton 10-21 Surgery Visit Report [facility] [address] [place] [address] OFFICE VISIT Date of Service: 10/21/24 MR#: [id number] Acct: [id number] Name: JUANITA PAULINO Rep #: [id number] : 2000 Provider: Dr. Luis latham MD Age/Sex: 24/F Location: [facility] Status: Signed Intake Vital Signs 10/14/24 10:56 10/21/24 14:55 Height 5 ft 7 in 5 ft 7 in Weight: 324 lb 1 oz 323 lb BMI 50.7 50.5 BP 123/80 H 120/81 H Blood Pressure Location Rt brachial Position Sitting Respiration 18 Intake Visit Reasons: ABNORMAL HIDA Chief Complaint: abn hida [employer] Required: No Is patient in pain?: No Allergies No Known Allergies Allergy (Verified 10/21/24 14:56) Medications ???Medication ???Instructions ???Recorded ???Confirmed ???Type valacyclovir 500 mg tablet 500 mg PO QDAY HSV 30 days #30 tab s 05/26/24 10/21/24 Rx calcium polycarbophil 625 mg 1,250 mg (2 x 625 mg) PO QDAY #180 07/30/24 10/21/24 Rx tablet (FiberCon) tabs rabeprazole 20 mg tablet,delayed 20 mg PO QDAY #90 tabs 07/30/24 Rx release buspirone 5 mg tablet 5 mg PO TID #90 tabs 08/13/2404/15 Rx fluoxetine 10 mg capsule (Prozac) 10 mg PO QDAY #30 caps 08/13/24 0 10/21/24 Rx metformin 500 mg tablet 500 mg PO BID #60 tabs 08/13/24 Rx spironolactone 25 mg tablet 25 mg PO DAILY #30 tabs 08/13/24 0 10/21/24 Rx tranexamic acid 650 mg tablet 1,300 mg (2 x 650 mg) PO TID #60 0 09/01/24 10/21/24 Rx tabs dicyclomine 10 mg capsule 10 mg PO TID #90 caps 09/26/2404/15 Rx levonorgestrel (Mirena) 1 device intrauterine ONCE 5 10/21/24 History [facility] Medical History (Updated 10/21/24 @ 15:[address] 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 She describes periodic pain in the right upper quadrant along with nausea vomiting as well as diarrhea. She recently underwent an ultrasound of the right upper quadrant and this was negative for any stones or sludge. She then underwent a HIDA scan that showed no appreciable emptying of the gallbladder with CCK ROS General General: Yes weight change and fatigue; No appetite, colon cancer, breast cancer or weakness HEENT HEENT: No difficulty swallowing, eye injury, eye surgery, swollen glands or hoarseness Endo Endocrine: No thyroid disease, diabetes mellitus, thyroid cancer, Hair loss, heat intolerance or cold intolerance Skin Skin: No rash or changing moles Breast Breast: No left breast lump, right breast lump, nipple discharge, breast pain, abnormal mammogram, abnormal US or breast enlargement Musc Musculoskeletal: No back problems, arthritis, rheumatoid arthritis, gout or joint pain Cardio Cardiovascular: No murmur, pacemaker, heart disease, atrial fibrillation, high blood pressure, heart attack, heart stent, palpitations, shortness of breath with exertion or chest pain Psych Psychiatric: Yes depression and anxiety; No hearing voices Resp Respiratory: Yes shortness of breath, No sleep apnea, No cough, No COPD, No asthma, No emphysema and No wheezing Gastro Gastrointestinal: Yes abdominal pain, Yes nausea or vomiting, Yes diarrhea, No constipation, Yes blood in stool, Yes acid reflux, Yes hemorrhoids, No ulcers, Yes gallbladder problem and No black,tarry stoo (more content not included)... Normal [facility] Hepatobilliary Img w/Pharm I nton 10-14-2024 Hepatobilliary Img w/Pharm Int [facility] Imaging Services [address] [place] [address] Hepatobilliary Img w/Pharm Int MR#: [id number] Acct: [id number] Name: JUANITA PAULINO Rep #: [id number] : 2000 F 24 From: Reagan Lott PCP: JEFF VELASCO Status: REG CLI Study: Hepatobilliary Img w/Pharm Int Date of Exam: 0 10/14/24 Exam# [id number] Ordering Dr: Roxanne De La Cruz PROCEDURE: HEPATOBILLIARY IMG W/PHARM INT, plus gallbladder ejection fraction. 10/14/2024 REASON FOR EXAM: RUQ PAIN. Diarrhea, and vomiting. TECHNIQUE: Intravenous Choletec with planar imaging of the abdomen. RADIOPHARMACEUTICAL: Intravenous administration 6.0 mCi technetium 99 M mebrofenin. The gallbladder ejection fraction was obtained following intravenous administration of 3.2 mcg cholecystokinin. COMPARISON: CT examination 06/12/2020 FINDINGS: Satisfactory hepatic uptake and clearance is seen.. Normal gallbladder visualization with the gallbladder identified by 15 minutes. Small bowel activity is seen by the 30 minute film. Following cholecystokinin administration, no significant gallbladder ejection was seen, through 31 minutes. NM/Hepatobilliary Img w/Pharm Int IMPRESSION: 1. No significant gallbladder ejection is seen through 31 minutes, following cholecystokinin administration. In the correct clinical circumstance, this may be seen with chronic cholecystitis. 2. Negative hepatobiliary scan, otherwise. Reading Location: [place] [address] CC: JEFF VELASCO; KO Ram Stockroom Keeper: Signed Normal [facility] Laboratory - Chemistry and C hemistry - challengeOrdered By: Simin Yu on 10-14-2024 HCG ( test) Ql (U) Negative [facility] Angular Developer Office Visit Reporton 10-14-2024 Angular Developer Office Visit Report [facility]'s [address], [address] [place] [address] OFFICE VISIT Date of Service: 10/14/24 MR#: [id number] Acct: [id number] Name: JUANITA PAULINO Rep #: [id number] : 2000 Provider: DELMIS demarco Age/Sex: 24/F Location: [facility] Status: Signed with [facility] ADDENDUM by Floresita Anglin on 10/14/24 at 1128 Office Procedure Documentation entered by Floresita Anglin 10/14/24 11:28: IUD Insertion IUD GC/Chlamydia:: not done Test: Yes Negative Consent Signed: Yes Time out checklist: patient, procedure, site marked/identified, positioning of patient, supplies available, allergies confirmed and team agrees on procedure IUD: Yes Mirena IUD inserted Time out time: 11:18 Details: Sign in Communication: Completed Sign out documentation: Completed The uterus sounded to 7 cm. After prepping the cervix with betadine and using sterile technique, the cervix was grasped with a single tooth tenaculum and the IUD was inserted without difficulty and the string was cut to 3cm from the external os of the cervix. All instruments were removed from the vagina and excellent hemostasis was noted. Procedure Summary: patient tolerated the procedure well without complication. Office Meds levonorgestrel 21 mcg/24 hr (up to 8 years) 52 mg intrauterine device Performing Provider: DELMIS Almonte NP Performing Location: [facility] Administered by: DELMIS Almonte NP on 10/14/24 11:20 Dose Route Admin Location Dispensed Lot Number Expiration Date NDC Man ufacturer 1 insert intrauterine [facility]'s [facility] 1 insert [id number] 10/19/26 07176-2 [employer]OSSE[employer],PHARM DIV Date cc: * Signed Intake Vital Signs 09/18/24 08:36 09/18/24 10:21 10/14/24 10:56 Height 5 ft 7 in 5 ft 7 in 5 ft 7 in Weight: 324 lb 1 oz BMI 50.7 BP 114/71 123/80 H Intake Visit Reasons: EMB and Mirena Insertion *Per Chief Complaint: EMB and IUD insertion [employer] Required: No Is patient in pain?: No Allergies No Known Allergies Allergy (Verified 10/14/24 11:11) Medications ???Medication ???Instructions ???Recorded ???Confirmed ???Type valacyclovir 500 mg tablet 500 mg PO QDAY HSV 30 days #30 tab s 05/26/24 10/14/24 Rx calcium polycarbophil 625 mg 1,250 mg (2 x 625 mg) PO QDAY #180 07/30/24 10/14/24 Rx tablet (FiberCon) tabs rabeprazole 20 mg tablet,delayed 20 mg PO QDAY #90 tabs 07/30/24 Rx release buspirone 5 mg tablet 5 mg PO TID #90 tabs 08/13/2409/20 Rx fluoxetine 10 mg capsule (Prozac) 10 mg PO QDAY #30 caps 08/13/24 0 10/14/24 Rx metformin 500 mg tablet 500 mg PO BID #60 tabs 08/13/24 Rx spironolactone 25 mg tablet 25 mg PO DAILY #30 tabs 08/13/24 0 10/14/24 Rx tranexamic acid 650 mg tablet 1,300 mg (2 x 650 mg) PO TID #60 0 09/01/24 10/14/24 Rx tabs tirzepatide (weight loss) 2.5 2.5 mg (0.5 mL) subcut QWEEK #2 mL 09/22/24 10/14/24 Rx mg/0.5 mL subcutaneous pen injector (Zepbound) dicyclomine 10 mg capsule 10 mg PO TID #90 caps 09/26/24 Rx Is last menstrual period known: Yes Last Menstrual Period: 10/02/24 Post menopausal: No Patient : No : No PFSH PFSH Medical History (Updated 10/14/24 @ 11:22 by Simin Yu SLIP FEEDER, SLIP FEEDER-C) HSV-2 (herpes simplex virus 2) infection IBS [...] 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 Normal [facility] Surgery Specimen Level Miguel 10-14-2024 Surgery Specimen Level IV Patient Age/Sex Location Account Attending Physician JUANITA PAULINO LABSPEC [id number] DELMIS Almonte Specimen: [id number] Received: 10/14/24 Status: DOMINIQUE Soto Num: [id number] Spec Type: ENDOM BX/C Michelle Dr: Simin Yu, JANIEC HEADER OPERATION: Endometrial biopsy PRE-OP DIAGNOSIS: Abnormal uterine bleeding TISSUE SUBMITTED: A- Endometrial lining MICROSCOPIC DIAGNOSIS A. Endometrium, biopsy: - Few fragments of proliferative endometrium - see note. Note: Clinical correlation is necessary to assess the adequacy of this tissue sampling. MICROSCOPIC DESCRIPTION Slides are reviewed. GROSS DESCRIPTION A. Received in formalin labeled with the patient's name and date of is a 2.8 x 1.3 x 0.2 cm aggregate of mucoid material admixed with flecks of pink-red tissue. Entirely submitted in 1 cassette. The entirety of the specimen is unlikely to survive processing. AR 10/14/2024 CPT:81754 Patient Age/Sex Location Account Attending Physician JUANITA PAULINO LABSPEC [id number] DELMIS Almonte Signed (signature on file) Dr. Auera Keyes MD 10/27/24 1643 Normal [facility] Comment on above: Performed By: #### L 3410.9992, L500.3400 #### [facility] Laboratory [address] [place], [place], [id number] CR w/ Reflex Mult Confirmon 09-21-2024 ANTI-DNA (DS)AB TNP Normal [facility] Comment on above: Performed By: #### L 3410.9992, L500.3400 #### [facility] Laboratory [address] [place], [place], [id number] ANTI-SS-A TNP Normal [facility] Comment on above: Performed By: #### L 3410.9992, L500.3400 #### [facility] Laboratory [address] [place], [place], [id number] ANTI-SS-B TNP Normal [facility] Comment on above: Performed By: #### L 3410.9992, L500.3400 #### [facility] Laboratory [address] [place], [place], [address] Pelvic w/ Transvaginalon Pelvic w/ Transvaginal [facility] Imaging Services [address] [place], [place] [address] Pelvic w/ Transvaginal MR#: [id number] Acct: [id number] Name: JUANITA PAULINO Rep #: [id number] : 2000 F 24 From: Addy Pierce MD PCP: JEFF VELASCO Status: REG CLI Study: Pelvic w/ Transvaginal Date of Exam: 09/19/24 Exam# [id number] Ordering Dr: Simin Yu NP SLIP FEEDER -C PROCEDURE: PELVIC W/ TRANSVAGINAL 09/19/2024 REASON FOR EXAM: BLEEDING, LEFT OVARIAN CYST TECHNIQUE: PELVIC W/ TRANSVAGINAL COMPARISON: Reviewed FINDINGS: Transabdominal transvaginal scanning performed. Bilateral ovaries are normal with preserved symmetric vascular flow. No abnormal fluid in the cul-de-sac. Urinary bladder is unremarkable. Endometrium is normal measuring 7 mm. Uterus is anteverted measuring 9.7 x 4.9 x 4.2 cm. Cervix is normal. Prominent simple left-sided ovarian cyst measuring 2.6 x 1.9 x 1.6 cm, not as conspicuous previously. US/Pelvic w/ Transvaginal IMPRESSION: As above. [facility] CC: SLIP FEEDER-C Simin Yu; JEFF VELASCO Stockroom Keeper: Signed Normal [facility] Angular Developer Office Visit Reporton 09-18-2024 Angular Developer Office Visit Report [facility]'s [address], [address] [place] [address] OFFICE VISIT Date of Service: 09/18/24 MR#: [id number] Acct: [id number] Name: JUANITA PAULINO Rep #: [id number] : 2000 Provider: Dr. Teresa jones MD Age/Sex: 24/F Location: [facility] Status: Signed Intake Vital Signs 09/05/24 08:08 09/18/24 08:36 Height 5 ft 7 in 5 ft 7 in Weight: 322 lb 2 oz BMI 50.4 BP 116/78 114/71 Blood Pressure Location Lt brachial Position Sitting Pulse 88 Pulse Source Monitor Pulse Oximetry (%) 96 Oxygen Delivery Method room air Intake Visit Reasons: AUB, Discuss ablation Allergies No Known Allergies Allergy (Verified 09/18/24 08:38) Medications ???Medication ???Instructions ???Recorded ???Confirmed ???Type valacyclovir 500 mg tablet 500 mg PO QDAY HSV 30 days #30 tab s 05/26/24 09/18/24 Rx calcium polycarbophil 625 mg 1,250 mg (2 x 625 mg) PO QDAY #180 07/30/24 09/18/24 Rx tablet (FiberCon) tabs dicyclomine 10 mg capsule 10 mg PO TID #90 caps 07/30/24 Rx rabeprazole 20 mg tablet,delayed 20 mg PO QDAY #90 tabs 07/30/24 Rx release buspirone 5 mg tablet 5 mg PO TID #90 tabs 08/13/2408/21 Rx fluoxetine 10 mg capsule (Prozac) 10 mg PO QDAY #30 caps 08/13/24 0 09/18/24 Rx metformin 500 mg tablet 500 mg PO BID #60 tabs 08/13/24 Rx spironolactone 25 mg tablet 25 mg PO DAILY #30 tabs 08/13/24 0 09/18/24 Rx tranexamic acid 650 mg tablet 1,300 mg (2 x 650 mg) PO TID #60 0 09/01/24 09/18/24 Rx tabs Is last menstrual period known: Yes Last Menstrual Period: 09/03/24 (very heavy the entire period, Lysteda not working) Post menopausal: No Patient : No : No PFSH Medical History (Updated 09/18/24 @ 09:[address] 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 she has a history of PCOS and has been trying lysteda with minimal reduction in bleeding. she has bleeding every 23-25 days and bleeding can last 7 days or more. she bled for 9 days. she has been on metformin on and off for it. she has tried ocps and nexplanon in the past and didn't tolerate them due to side effects. Female Reproductive History Last Menstrual Period: 09/03/24 (very heavy the entire period, Lysteda not working) History 2 Elective abortions Hx Para 3 Spontaneous abortions Hx # Term Pregnancies Ectopic pregnancies Hx # Pregnancies Multiple births 1 # of living children 3 Past Pregnancies Del. Date Name GA/Weeks Outcome Route Bth Weight Infant Gen Labor Lgth Anesthesia Del Locatn Provider MARÍA 12/23/18 Fausto 02/04/22 Cristela 02/04/22 [place] ROS Const Constitutional: Reports weight gain; Denies fatigue, fever(s), headache(s), increased appetite, poor appetite or weight loss GI GI: Reports as per HPI; Denies abdominal pain, constipation, nausea or vomiting : Reports as per HPI; Denies difficulty voiding, dysuria, hematuria, pelvic pain, urinary frequency, urinary incontinence, urinary hesitancy, urinary urgency, vaginal discharge, vaginal dryness, vaginal odor, vaginal pruritus or other Exam Const General: cooperative, healthy appearing, comfortable, no acute distress and well developed Orientation: alert HENMT (more content not included)... Normal [facility] ANCAon 09-11-2024 Atypical pANCA <1:20 Normal Neg:<1:20 [facility] Comment on above: Result Comment: The atypical pANCA pattern has been observed in a significant percentage of patients with ulcerative colitis, primary sclerosing cholangitis and autoimmune hepatitis. Performed By: #### L 3410.9992, L500.3400 #### [facility] Laboratory [address] [place], [address] Cytoplasmic Ab <1:20 Normal Neg:<1:20 [facility] Comment on above: Performed By: #### L 3410.9992, L500.3400 #### [facility] Laboratory [address] [place], [address] Perinuclear Ab. <1:20 Normal Neg:<1:20 [facility] Comment on above: Result Comment: The presence of positive fluorescence exhibiting P-ANCA or C-ANCA patterns alone is not specific for the diagnosis of Francesco's Granulomatosis (WG) or microscopic polyangiitis. Decisions about treatment should not be based solely on ANCA IFA results. The International ANCA Group Consensus recommends follow up testing of positive sera with both AZ- 3 and MPO-ANCA enzyme immunoassays. As many as 5% serum samples are positive only by EIA. Ref. AM J Clin Pathol 1999;111:507-513. Performed By: #### L 3410.9992, L500.3400 #### [facility] Laboratory [address] [place], [address] Anti-Mitochondrial ABon - ANTIMITOCHON AB <20.0 Normal 0.0-20.0 [facility] Comment on above: Result Comment: Nega tive 0.0 - 20.0 Equivocal 20.1 - 24.9 Positive >24.9 Mitochondrial (M2) Antibodies are found in 90-96% of patients with primary biliary cirrhosis. Performed By: #### L 3410.9992, L500.3400 #### [facility] Laboratory [address] [place], [address] Anti-Smooth Muscle ABSon ANTISMOOTH MUSC 10 Units Normal 0-19 [facility] Comment on above: Result Comment: Nega tive 0 - 19 Weak positive 20 - 30 Moderate to strong positive >30 Actin Antibodies are found in 52-85% of patients with autoimmune hepatitis or chronic active hepatitis and in 22% of patients with primary biliary cirrhosis. Performed By: #### L 3410.9992, L500.3400 #### [facility] Laboratory [address] [place], [address] Ceruloplasminon 09-11-2024 CERULOPLASMIN 32.5 mg/dL Normal 19.0-39.0 [facility] Comment on above: Result Comment: Perf ormed at: [facility] [id number] Store Clerk: Gilles Carey PhD, Phone: [phone] Performed By: #### L 3410.9992, B347.3400 #### [facility] Laboratory [address] [place], [address] Calculated very low density lipoprotein (VLDL) cholesterol measurementOrdered By: Ashley Larose on 09-10-2024 Calculated very low density lipoprotein (VLDL) cholesterol measurement 54 mg/dL High 5-40 [facility] Ferritinon 09-10-2024 Ferritin [Mass/Vol] 135 ng/mL Normal 22-378 [facility] Comment on above: Performed By: #### L 3410.9992, L500.3400 #### [facility] Laboratory [address] [place], [address] Hemoglobin A1con 09-10-2024 HbA1c (Bld) [Mass fraction] 5.1 % Normal <=5.6 [facility] Comment on above: Result Comment: Norm al < 5.7 % Prediabetic 5.7 - 6.4 % Diabetic >or= 6.5 % Please note range changes. Performed By: #### L 3410.9992, L500.3400 #### [facility] Laboratory [address] [place], [address] Hemoglobin A1c percentageOrd ered By: Ashley Larose on 09-10-2024 HbA1c (Bld) [Mass fraction] 5.1 % <5.7 [facility] Comment on above: Normal < 5.7 % Predi abetic 5.7 - 6.4 % Diabetic >or= 6.5 % Please note range changes. Iron measurement (mass/mass) Ordered By: Ashley Larose on 09-10-2024 Iron (Unsp spec) [Mass/Mass] 54 ug/dL 50-170 [facility] Iron+Iron Binding Capacityon 09-10-2024 Iron [Mass/Vol] 54 ug/dL Normal 50-170 [facility] Comment on above: Performed By: #### L 3410.9992, L500.3400 #### [facility] Laboratory [address] [place], [address] IRON SATURATION 13.0 Normal 13-59 [facility] Comment on above: Performed By: #### L 3410.9992, L500.3400 #### [facility] Laboratory [address] [place], [address] TIBC 428 ug/dL Normal 250-450 [facility] Comment on above: Performed By: #### L 3410.9992, L500.3400 #### [facility] Laboratory [address] [place], [address] UIBC 374 ug/dL Normal 228-428 [facility] Comment on above: Performed By: #### L 3410.9992, L500.3400 #### [facility] [address] [place], [address] LDL calc ser/plasOrdered By: Ashley Larose on 09-10-2024 Cholesterol in LDL [Mass/Vol] 153 mg/dL [facility] Comment on above: Hkhsjizshd=368-085 m g/dL & Higher Tzlf=980 mg/dL or greater Lipid Profileon 09-10-2024 CHOL:HDL 5.35 Normal [facility] Comment on above: Performed By: #### L 3410.9992, L500.3400 #### [facility] Laboratory [address] [place], [address] Cholesterol [Mass/Vol] 254 mg/dL High <=200 [facility] Comment on above: Result Comment: Chol esterol level, Desirable <200 mg/dL Borderline high cholesterol 200-239 mg/dL High cholesterol >=240 mg/dL Recommendations of the NCEP Adult Treatment Panel for the following risk-cutoff thresholds for the [place] population. Performed By: #### L 3410.9992, L500.3400 #### [facility] Laboratory [address] [place], [address] Cholesterol in HDL [Mass/Vol] 48 mg/dL Normal [facility] Comment on above: Result Comment: Kristy onal Cholesterol Education Program (NCEP) guidelines: <40 mg/dL: Low HDL-cholesterol (major risk factor for CHD) >= 60 mg/dL: High HDL-cholesterol (negative risk factor for CHD) HDL-cholesterol is affected by a number of factors, e.g. smoking, exercise, hormones, sex and age. Performed By: #### L 3410.9992, L500.3400 #### [facility] Laboratory [address] [place], [address] Cholesterol in LDL [Mass/Vol] 153 mg/dL Normal [facility] Comment on above: Result Comment: Bord ttcfvd=521-559 mg/dL Higher Zidd=534 mg/dL or greater Performed By: #### L 3410.9992, L500.3400 #### [facility] [address] [place], [address] Cholesterol in VLDL [Mass/Vol] 54 mg/dL High 5-40 [facility] Comment on above: Performed By: #### L 3410.9992, L500.3400 #### [facility] Laboratory [address] [place], [address] Triglyceride [Mass/Vol] 270 mg/dL High [facility] Comment on above: Result Comment: The drugs N-Acetylcysteine and Metamizole may falsely depress this assay. Normal range: <150 mg/dL Borderline High: 150-199 mg/dL High: 200-499 mg/dL Very High: >500 mg/dL Performed By: #### L 3410.9992, L500.3400 #### [facility] Laboratory [address] [place], [address] No Panel InformationOrdered By: Ashley Larose on 09-10-2024 Unsaturated Iron Binding Capacity 374 ug/dL 228-428 [facility] Screening total cholesterol/ high density lipoprotein (HDL) cholesterol ratioOrdered By: Ashley Larose on 09-10-2024 Cholesterol.total/Choles terol in HDL [Mass ratio] 5.35 {ratio} [facility] Serum DNA double strand anti body assay (units/volume)Ordered By: Ashley Larose on 09-10-2024 DNA double strand Ab Qn (S) [facility] Comment on above: Test not performed Serum Scl-70 antibody assay (units/volume)Ordered By: Ashley Larose on 09-10-2024 SCL-70 extractable nuclear Ab Qn (S) [facility] Comment on above: Test not performed Serum classic neutrophil cyt oplasmic antibody assay (units/volume)Ordered By: Ashley Larose on 09-10-2024 Neutrophil cytoplasmic Ab.classic Qn (S) <1:20 titer Neg:<1:20 [facility] Serum mitochondria antibody detectionOrdered By: Ashley Larose on 09-10-2024 Mitochondria Ab Ql (S) <20.0 Units 0.0-20.0 [facility] Comment on above: Negative 0.0 - 20.0 Equivocal 20.1 - 24.9 Positive >24.9Mitochondrial (M2) Antibodies are found in 90-96% ofpatients with primary biliary cirrhosis. Serum or plasma actin IgG an tibody assay (units/volume)Ordered By: Ashley Larose on 09-10-2024 Actin IgG Qn 10 Units 0-19 [facility] Comment on above: Negative 0 - 19 Weak positive 20 - 30 Moderate to strong positive >30 Actin Antibodies are found in 52-85% of patients with autoimmune hepatitis or chronic active hepatitis and in 22% of patients with primary biliary cirrhosis. Serum or plasma cholesterol in HDL measurement (mass/volume)Ordered By: Ashley Larose on 09-10-2024 Cholesterol in HDL [Mass/Vol] 48 mg/dL >40 [facility] Comment on above: National Cholesterol Education Program (NCEP) guidelines:<40 mg/dL: Low HDL-cholesterol (major risk factor for CHD)>= 60 mg/dL: High HDL-cholesterol (negative risk factor for CHD)HDL-cholesterol is affected by a number of factors, e.g. smoking, exercise, hormones, sex and age. Serum or plasma cholesterol measurement (mass/volume)Ordered By: Ashley Larose on 09-10-2024 Cholesterol [Mass/Vol] 254 mg/dL High <201 [facility] Comment on above: Cholesterol level, D esirable <200 mg/dLBorderline high cholesterol 200-239 mg/dLHigh cholesterol >=240 mg/dLRecommendations of the NCEP Adult Treatment Panel for the following risk-cutoff thresholds for the [place] population. Serum or plasma ferritin susie surement (mass/volume)Ordered By: Ashley Larose on 09-10-2024 Ferritin [Mass/Vol] 135 ng/mL 22-378 [facility] Serum or plasma iron saturat ion measurement (mass fraction)Ordered By: Ashley Larose on 09-10-2024 Iron saturation [Mass fraction] 13.0 % 13-59 [facility] Serum perinuclear neutrophil cytoplasmic antibody titer by immunofluorescenceOrdered By: Ashley Larose on 09-10-2024 Neutrophil cytoplasmic Ab.perinuclear IF (S) [Titer] <1:20 titer Neg:<1:20 [facility] Comment on above: The presence of posi tive fluorescence exhibiting P-ANCA orC-ANCA patterns alone is not specific for the diagnosis ofWegener's Granulomatosis (WG) or microscopic polyangiitis.Decisions about treatment should not be based solely onANCA IFA results. The International ANCA Group Consensusrecommends follow up testing of positive sera with both AZ-3 and MPO-ANCA enzyme immunoassays. As many as 5% serumsamples are positive only by EIA. Ref. AM J Clin Nyobwq4798;111:507-513. TSH DL <= 0.005 mIU/L QnOrde red By: Ashley Larose on 09-10-2024 TSH Qn 1.160 uIU/mL 0.300-4.200 [facility] Thyroid Stim Hormone (TSH)on 09-10-2024 TSH 1.160 uIU/mL Normal 0.300-4.200 [facility] Comment on above: Performed By: #### L 3410.9992, L500.3400 #### [facility] Laboratory [address] [place], [place], [address] Triglycerides measurementOrd ered By: Ashley Larose on 09-10-2024 Triglyceride [Mass/Vol] 270 mg/dL High <199 [facility] Comment on above: The drugs N-Acetylcy steine and Metamizole may falsely depress this assay. Normal range: <150 mg/dLBorderline High: 150-199 mg/dLHigh: 200-499 mg/dLVery High: >500 mg/dL Vitamin D,25 Hydroxyon 09-10 Vitamin D 25-OH 21.2 ng/mL Low 30-100 [facility] Comment on above: Result Comment: Sarina min D Status Deficiency: <20 ng/mL (50nmol/L) Insufficiency: 20-30 ng/mL (50-75 nmol/L) Sufficiency: 30-100 ng/mL (75-250 nmol/L) Toxicity: >100 ng/mL (>250 nmol/L) Performed By: #### L 3410.9992, L500.3400 #### [facility] Laboratory [address] [place], [address] Gastroenterology Visit Repor ton 09-05-2024 Gastroenterology Visit Report [facility] Gastroenterology [address] [place] [address] OFFICE VISIT Date of Service: 09/05/24 MR#: [id number] Acct: [id number] Name: JUANITA PAULINO Rep #: [id number] : 2000 Provider: DELMIS jones Age/Sex: 24/F Location: [facility] Status: Signed Intake Vital Signs 07/30/24 08:31 09/01/24 13:06 09/05/24 08:08 Height 5 ft 7 in 5 ft 7 in 5 ft 7 in Weight: 322 lb 2 oz BMI 50.4 BP 116/78 Blood Pressure Location Lt brachial Position Sitting Pulse 88 Pulse Source Monitor Pulse Oximetry (%) 96 Oxygen Delivery Method room air Intake Visit Reasons: FU PER SYLVIA Chief Complaint: follow-up Allergies No Known Allergies Allergy (Verified 09/01/24 12:58) Nurse's Note: OV 09/05/24 Pt here for a f/u and reports diarrhea, constipation, abdominal pain, gas and bloating. 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 Note: The [employer] speech recognition architectural drafter software was used to create portions of this document. Sound-alike and misspelled words, as well as other architectural drafter errors may be contained in the documentation. Patient Instructions: Fibercon 2 tablets once daily with 8 ounces of water after a meal. May take up to 3 weeks for symptom improvement. Start a probiotic (Align, Culturelle or Click Quote Save Health) once daily. These are all multispecies probiotics, [...] not having (more content not included)... Normal [facility] L3410.9992on 09-05-2024 [facility]. COMMENT Normal . [facility] Comment on above: Order Comment: [id number] ELF TIGER RF Result Comment: Test Ordered: [id number] Enhanced Liver Fibrosis (ELF) ELF(TM) Score 8.18 Reference Range: <9.80 ELF(TM) Score Interpretation: Risk [...] trials. J Hepatol. 2020 Aug;73(1):26-39. Performed at: [address] [id number] Store Clerk: Juana Lee MD, Phone: [phone] Performed at: [facility] [address] [id number] Store Clerk: Gilles Carey PhD, Phone: [phone] Performed By: #### L 3410.9992, L500.3400 #### [facility] Laboratory [address] [place], [address] Bilirubin directOrdered By: Ashley Larose on 09-02-2024 Bilirubin.direct [Mass/Vol] 0.17 mg/dL 0.00-0.30 [facility] Comment on above: Hemolysis present, R esults could be affected. Bilirubin, totalOrdered By: Ashley Larose on 09-02-2024 Bilirubin [Mass/Vol] 0.58 mg/dL 0.00-1.30 [facility] Laboratory - Chemistry and C hemistry - challengeOrdered By: Ashley Larose on 09-02-2024 AST [Catalytic activity/Vol] 65 U/L High <32 [facility] Comment on above: Hemolysis present, R esults could be affected. Liver Profileon 09-02-2024 Albumin [Mass/Vol] 4.4 g/dL Normal 3.5-5.0 [facility] Comment on above: Performed By: #### L 3410.9992, L500.3400 #### [facility] Laboratory [address] [place], [address] ALK PHOS 91 U/L Normal 35-104 [facility] Comment on above: Performed By: #### L 3410.9992, L500.3400 #### [facility] Laboratory [address] [place], [address] ALT [Catalytic activity/Vol] 68 U/L High <=34 [facility] Comment on above: Performed By: #### L 3410.9992, L500.3400 #### [facility] Laboratory [address] [place], [address] AST [Catalytic activity/Vol] 65 U/L High <=31 [facility] Comment on above: Result Comment: Hemo lysis present, Results??could be affected. ?? Performed By: #### L 3410.9992, L500.3400 #### [facility] Laboratory [address] [place], [address] Bilirubin [Mass/Vol] 0.58 mg/dL Normal 0.00-1.30 [facility] Comment on above: Performed By: #### L 3410.9992, L500.3400 #### [facility] Laboratory [address] [place], [address] Bilirubin.direct [Mass/Vol] 0.17 mg/dL Normal 0.00-0.30 [facility] Comment on above: Result Comment: Hemo lysis present, Results??could be affected. ?? Performed By: #### L 3410.9992, L500.3400 #### [facility] Laboratory [address] [place], [address] Globulin (S) [Mass/Vol] 3.6 g/dL Normal 2.2-4.2 [facility] Comment on above: Performed By: #### L 3410.9992, L500.3400 #### [facility] Laboratory [address] [place], [address] T PROT 8.0 g/dL Normal 5.9-8.4 [facility] Comment on above: Performed By: #### L 3410.9992, L500.3400 #### [facility] Laboratory [address] [place], [address] Serum globulin measurementOr dered By: Ashley Larose on 09-02-2024 Globulin (S) [Mass/Vol] 3.6 g/dL 2.2-4.2 [facility] Serum or plasma alanine evans otransferase (ALT) measurementOrdered By: Ashley Larose on 09-02-2024 ALT [Catalytic activity/Vol] 68 U/L High <35 [facility] Serum or plasma albumin benita urement (mass/volume)Ordered By: Ashley Larose on 09-02-2024 Albumin [Mass/Vol] 4.4 g/dL 3.5-5.0 [facility] Serum or plasma alkaline angelina sphatase measurementOrdered By: Ashley Larose on 09-02-2024 ALP [Catalytic activity/Vol] 91 U/L 35-104 [facility] Total proteinOrdered By: Brandy Larose on 09-02-2024 Protein [Mass/Vol] 8.0 g/dL 5.9-8.4 [facility] Angular [employer] Office Visit Reporton 09-01-2024 Angular Developer Office Visit Report [facility] [address], [address] [place] [address] OFFICE VISIT Date of Service: 09/01/24 MR#: [id number] Acct: [id number] Name: JUANITA PAULINO Rep #: [id number] : 2000 Provider: DELMIS demarco Age/Sex: 24/F Location: [facility] Status: Signed Intake Vital Signs 08/13/24 14:45 [...] Intake Visit Reasons: Bleeding Chief Complaint: AUB [employer] Required: No Is patient in pain?: No [...] tablet 5 mg PO TID #90 tabs 08/13/24 07/06/13 Rx fluoxetine 10 mg capsule (Prozac) 10 mg PO QDAY #30 caps 08/13/24 0 09/01/24 Rx metformin 500 mg tablet 500 mg PO BID #60 tabs 08/13/24 Rx spironolactone 25 mg tablet 25 mg PO DAILY #30 tabs 08/13/24 0 09/01/24 Rx semaglutide (weight loss) 0.25 0.25 mg (0.5 mL) subcut QWEEK #2 m L 08/18/24 09/01/24 Rx mg/0.5 mL subcutaneous pen injector (Cursogram) tranexamic acid 650 mg tablet 1,300 mg (2 x 650 mg) PO TID #60 0 09/01/24 09/01/24 Rx tabs Is last menstrual period known: Yes Last Menstrual Period: 08/13/24 Post menopausal: No Patient : No : No PFSH Medical History (Updated 09/01/24 @ 13:22 by Simin Yu SLIP FEEDER, SLIP FEEDER-C) HSV-2 (herpes simplex virus 2) infection IBS [...] status: employed 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 Normal [facility] Internal Medicine Office Vis itowanda 08-13-2024 Internal Medicine Office Visit [facility] [address] [place] [address] [address] [place], [place] [address] OFFICE VISIT Date of Service: 08/13/24 MR#: [id number] Acct: [id number] Name: JUANITA PAULINO Rep #: [id number] : 2000 Provider: Dr. Tiffany mock MD Age/Sex: 24/F Location: [facility] Status: Signed Intake Vital Signs 07/30/24 08:31 08/13/24 14:45 Height 5 ft 7 in 5 ft 7 in Weight: 323 lb BMI 50.5 BP 120/84 H Blood Pressure Location Lt brachial Position Sitting Respiration 18 Pulse 83 Pulse Source Monitor Temp 98.9 F Temp Source Temporal Pulse Oximetry (%) 96 Oxygen Delivery Method room air Intake Visit Reasons: MED REFILL-OK PER DR MARKS [employer] Required: No Is patient in pain?: No [...] filled through previous pcp. Previous pcp Michelle Mast. Pt has correspondance w/ [facility], and [facility]. Pt has frequent nighttime awakenings for no reason, she is able to get back to sleep after awhile, gets 6-7 hours in total, Feels rested for the most part upon awakening. Pt had testing at [facility] and Ashley told pt weight loss option may be good for her. Pt states she was on mounjaro 5mg qweek in the past. Pt states insurance covered 1 month then didn't pt could not pay out of pocket, so she did not continue. 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 Normal [facility] ABD Limited w/ Elastographyo n 08-05-2024 ABD Limited w/ Elastography [facility] Imaging Services [address] [place], [place] [address] ABD Limited w/ Elastography MR#: [id number] Acct: [id number] Name: JUANITA PAULINO Rep #: [id number] : 2000 F 24 From: Reynaldo rivas MD PCP: Dr. Tiffany Marks MD Status: REG CLI Study: ABD Limited w/ Elastography Date of Exam: 07/20 09/12 Exam# [id number] Ordering Dr: Ashley Larose SLIP FEEDER- C PROCEDURE: ABD LIMITED W/ ELASTOGRAPHY REASON FOR EXAM: ADD SPLEEN PLEASE COMPARISON: None. TECHNIQUE: Right upper quadrant abdominal ultrasound. Ike ElastQ Imaging shear wave elastography for non- invasive assessment of liver tissue stiffness. Ike EPIQ [...] 7.3 cm. US/ABD Limited w/ Elastography IMPRESSION: Wrgu-ya-hqmbegza hepatic fibrosis. Splenomegaly. Hepatomegaly and diffuse fatty [...] measurement may be in question. Reading Location: [place] [address] CC: DELMIS Larose; Dr. Tiffany Marks MD Stockroom Keeper: Signed Normal [facility] L5500.0550on 08-05-2024 BEEF <0.10 Normal Class 0 [facility] Comment on above: Performed By: #### L 500.2500 #### [facility] Laboratory [address] [place], [place], [address] CHOCOLATE <0.10 Normal Class 0 [facility] Comment on above: Performed By: #### L 500.2500 #### [facility] Laboratory [address] [place], [place], [address] CODFISH <0.10 Normal Class 0 [facility] Comment on above: Performed By: #### L 500.2500 #### [facility] Laboratory [address] [place], [place], [address] COMMENT Comment Normal . [facility] Comment on above: Result Comment: Wilbur gray of Specific IgE Class Description of Class ----- < 0.10 0 Negative 0.10 - 0.31 0/I Equivocal/Low 0.32 - 0.55 I Low 0.56 - 1.40 II Moderate 1.41 - 3.90 III High 3.91 - 19.00 IV Very High 19.01 - 100.00 V Very High >100.00 Very High Performed By: #### L 500.2500 #### [facility] Laboratory [address] [place], [address] CORN 0.14 kU/L Abnormal Class 0/I [facility] Comment on above: Performed By: #### L 500.2500 #### [facility] Laboratory [address] [place], [address] EGG, WHOLE 0.12 kU/L Abnormal Class 0/I [facility] Comment on above: Result Comment: Perf ormed at: - [facility] [address] [id number] Store Clerk: Juana Lee MD, Phone: [phone] Performed By: #### L 500.2500 #### [facility] Laboratory [address] [place], [address] MILK (COW) 0.60 kU/L Abnormal Class II [facility] Comment on above: Performed By: #### L 500.2500 #### [facility] Laboratory [address] [place], [address] MUSSELS <0.10 Normal Class 0 [facility] Comment on above: Performed By: #### L 500.2500 #### [facility] Laboratory [address] [place], [address] PEANUT <0.10 Normal Class 0 [facility] Comment on above: Performed By: #### L 500.2500 #### [facility] Laboratory [address] [place], [address] PORK <0.10 Normal Class 0 [facility] Comment on above: Performed By: #### L 500.2500 #### [facility] Laboratory [address] [place], [address] SALMON <0.10 Normal Class 0 [facility] Comment on above: Performed By: #### L 500.2500 #### [facility] Laboratory [address] [place], [address] SHRIMP <0.10 Normal Class 0 [facility] Comment on above: Performed By: #### L 500.2500 #### [facility] Laboratory [address] [place], [address] SOYBEAN <0.10 Normal Class 0 [facility] Comment on above: Performed By: #### L 500.2500 #### [facility] Laboratory [address] [place], [address] TUNA <0.10 Normal Class 0 [facility] Comment on above: Performed By: #### L 500.2500 #### [facility] Laboratory [address] [place], [address] WHEAT 0.33 kU/L Abnormal Class I [facility] Comment on above: Performed By: #### L 500.2500 #### [facility] Laboratory [address] [place], [place], [address] Hepatitis A AB, Totalon 07-20 HEPATITIS A,TOT Positive Abnormal Negative [facility] Comment on above: Result Comment: Comm ent: The HAV total antibody assay detects both IgG and IgM but does not differentiate between them. A negative result suggests susceptibility to infection. A positive result could be due to vaccination, previously resolved infection or active infection. Testing for HAV IgM should be performed if active HAV infection is suspected. [facility] offers profiles that will automatically reflex positive HAV total antibody results to IgM (e.g., panel #[id number] HAV Antibody w/ Rfx). Performed at: [address] [id number] Store Clerk: Gilles Carey PhD, Phone: [phone] Performed By: #### L 500.2500 #### [facility] Laboratory [address] [place], [address] Immunoglobulin Aon 5 IMMUNOGLOB A QN 164 mg/dL Normal 87-352 [facility] Comment on above: Order Comment: N Performed By: #### L 500.2500 #### [facility] Laboratory [address] [place], [address] t-Transglutaminase IgAon tTG IGA <2 Normal 0-3 [facility] Comment on above: Result Comment: Nega tive 0 - 3 Weak Positive 4 - 10 Positive >10 Tissue Transglutaminase (tTG) has been identified as the endomysial antigen. Studies have demonstr- ated that endomysial IgA antibodies have over 99% specificity for gluten sensitive enteropathy. Performed By: #### L 500.2500 #### [facility] Laboratory [address] [place], [address] Anion gap in Serum or Plasma Ordered By: Ashley Larose on 07-30-2024 Anion gap [Moles/Vol] 15 mmol/L 07-[address] [facility] BUN/creatinine ratioOrdered By: Ashley Larose on 07-30-2024 Urea nitrogen/Creatinine [Mass ratio] 13.0 mg/mg 12-08 [facility] Basic Metabolic Profile (BMP )on 07-30-2024 BUN/CRE 13.0 RATIO Normal 12-08 [facility] Comment on above: Performed By: #### L 500.2500 #### [facility] Laboratory [address] [place], [address] Calcium [Mass/Vol] 9.7 mg/dL Normal 7.6-11.0 [facility] Comment on above: Performed By: #### L 500.2500 #### [facility] Laboratory [address] [place], [address] Chloride [Moles/Vol] 101 mmol/L Normal 98-108 [facility] Comment on above: Performed By: #### L 500.2500 #### [facility] Laboratory [address] [place], [address] CO2 [Moles/Vol] 22.8 mmol/L Normal 21.0-32.0 [facility] Comment on above: Performed By: #### L 500.2500 #### [facility] Laboratory [address] [place], [address] Creatinine [Mass/Vol] 0.66 mg/dL Low 0.70-1.[address] [facility] Comment on above: Performed By: #### L 500.2500 #### [facility] Laboratory [address] [place], [address] GAP 15 Normal 5-15 [facility] Comment on above: Performed By: #### L 500.2500 #### [facility] Laboratory [address] [place], [address] GFR/1.73 sq M.predicted among non-blacks MDRD (S/P/Bld) [Vol rate/Area] 124 mL/min/{1.73_m2} Normal >60 [facility] Comment on above: Result Comment: mL/m in/1.73m2 CKD-EPI Creatinine Equation (2020) Performed By: #### L 500.2500 #### [facility] Laboratory [address] [place], [address] Glucose [Mass/Vol] 103 mg/dL High 70-99 [facility] Comment on above: Performed By: #### L 500.2500 #### [facility] Laboratory [address] [place], [address] Potassium [Moles/Vol] 3.6 mmol/L Normal 3.3-5.[address] [facility] Comment on above: Performed By: #### L 500.2500 #### [facility] Laboratory [address] [place], [address] Sodium [Moles/Vol] 139 mmol/L Normal 133-145 [facility] Comment on above: Performed By: #### L 500.2500 #### [facility] Laboratory [address] [place], [address] Urea nitrogen [Mass/Vol] 9 mg/dL Normal 4-19 [facility] Comment on above: Performed By: #### L 500.2500 #### [facility] Laboratory [address] [place], [address] Bilirubin directOrdered By: Ashley Larose on 07-30-2024 Bilirubin.direct [Mass/Vol] 0.21 mg/dL 0.00-0.30 [facility] Bilirubin, totalOrdered By: Ashley Larose on 07-30-2024 Bilirubin [Mass/Vol] 0.57 mg/dL 0.00-1.30 [facility] CRPon 07-30-2024 C-REACTIVE PROT 4.37 mg/L High 0.0-3.0 [facility] Comment on above: Performed By: #### L 500.2500 #### [facility] Laboratory [address] [place], [place], [address] Carbon dioxide, total [Moles /volume] in Central venous bloodOrdered By: Ashley Larose on 07-30-2024 CO2 [Moles/Vol] 22.8 mmol/L 21.0-32.0 [facility] Chloride assayOrdered By: Dany Larose on 07-30-2024 Chloride [Moles/Vol] 101 mmol/L 98-108 [facility] Gastroenterology Visit Repor ton 07-30-2024 Gastroenterology Visit Report [facility] Gastroenterology [address] [place] [address] OFFICE VISIT Date of Service: 07/30/24 MR#: [id number] Acct: [id number] Name: JUANITA PAULINO Rep #: [id number] : 2000 Provider: DELMIS jones Age/Sex: 24/F Location: [facility] Status: Signed Intake Vital Signs 10/17/23 11:44 07/24/24 08:23 07/30/24 08:31 Height 5 ft 7 in 5 ft 7 in 5 ft 7 in Weight: 317 lb 8 oz BMI 49.7 BP 112/80 Respiration 16 Pulse 98 Pulse Oximetry (%) 96 Oxygen Delivery Method room air Intake Visit Reasons: NEW PATIENT Chief Complaint: bowel issues [employer] Required: No Accompanied by: Self Is patient [...] old but hasn't heard about it sense. [facility] Medical History Polycystic ovaries IBS (irritable bowel [...] L: usually eats in hospital cafeteria D: vegetable/starch/protei n ROS Const Constitutional: Positive for fatigue and weight change (gain); No fever(s) ENT ENT: No difficulty swallowing Gastro GI: Positive for abdominal pain, bloating, diarrhea, heartburn and nausea/dyspepsia; No belching, change in bowel habits, change in stool character, coffee ground emesis, constipation, cramping, difficulty swa (more content not included)... Normal [facility] Glomerular filtration rate ( GFR) estimation/1.73 sq m using serum, plasma, or whole bOrdered By: Ashley Larose on 07-30-2024 GFR/1.73 sq M.predicted among non-blacks MDRD (S/P/Bld) [Vol rate/Area] 124 mL/min/{1.73_m2} >60 [facility] Comment on above: mL/min/1.73m2 CKD-EP I Creatinine Equation (2020) Hepatitis C Antibodyon 07-30 Hepatitis C Ab Non-Reactive Normal Nonreactive [facility] Comment on above: Result Comment: Reac tive: Presumptive evidence of antibodies to HCV. Follow CDC recommendations for supplemental testing. Non-Reactive: Antibodies to HCV were not detected; does not exclude the possibility of exposure to HCV Reactive Results are presumptive evidence of antibodies to HCV. Follow CDC recommendations for supplemental testing. Order confirmation testing: HCV Quant by PCR testing - HCVPCR #[id number] Non Reactive: < 0.8 Equivocal: >/= 0.8 to < 1.0 Reactive: >/= 1.0 The [facility] requires that a reactive/equivocal HCV antibody result be sent out for confirmation. HCV Quant by PCR testing. Performed By: #### L 500.2500 #### [facility] Laboratory [facility]. [place], [place], [id number] Laboratory - Chemistry and C hemistry - challengeOrdered By: Ashley Larose on 07-30-2024 AST [Catalytic activity/Vol] 50 U/L High <32 [facility] Laboratory - Miscellaneous t estsOrdered By: Ashley Larose on 07-30-2024 Service comment (Unsp spec) [Interp] Comment . [facility] Comment on above: Levels of Specific I gE Class Description of Class ----- < 0.10 0 Negative 0.10 - 0.31 0/I Equivocal/Low 0.32 - 0.55 I Low 0.56 - 1.40 II Moderate 1.41 - 3.90 III High 3.91 - 19.00 IV Very High 19.01 - 100.00 V Very High >100.00 Very High Liver Profileon 07-30-2024 Albumin [Mass/Vol] 4.6 g/dL Normal 3.5-5.0 [facility] Comment on above: Performed By: #### L 500.2500 #### [facility] Laboratory [address] [place], [address] ALK PHOS 92 U/L Normal 35-104 [facility] Comment on above: Performed By: #### L 500.2500 #### [facility] [address] [place], [address] ALT [Catalytic activity/Vol] 53 U/L High <=34 [facility] Comment on above: Performed By: #### L 500.2500 #### [facility] [address] [place], [address] AST [Catalytic activity/Vol] 50 U/L High <=31 [facility] Comment on above: Performed By: #### L 500.2500 #### [facility] Laboratory [address] [place], [address] Bilirubin [Mass/Vol] 0.57 mg/dL Normal 0.00-1.30 [facility] Comment on above: Performed By: #### L 500.2500 #### [facility] Laboratory [address] [place], [address] Bilirubin.direct [Mass/Vol] 0.21 mg/dL Normal 0.00-0.30 [facility] Comment on above: Performed By: #### L 500.2500 #### [facility] [address] [place], [address] Globulin (S) [Mass/Vol] 3.3 g/dL Normal 2.2-4.2 [facility] Comment on above: Performed By: #### L 500.2500 #### [facility] [address] [place], [address] T PROT 7.9 g/dL Normal 5.9-8.4 [facility] Comment on above: Performed By: #### L 017.2626 #### [facility] [address] [place], [address] Potassium measurement (mass/ volume)Ordered By: Ashley Larose on 07-30-2024 Potassium (Unsp spec) [Mass/Vol] 3.6 mmol/L 3.3-5.1 [facility] Serum beef IgE antibody assa y (units/volume)Ordered By: Ashley Larose on 07-30-2024 Beef IgE Qn (S) <0.10 kU/L Class 0 [facility] Serum codfish IgE antibody a ssay (units/volume)Ordered By: Ashley Larose on 07-30-2024 Codfish IgE Qn (S) <0.10 kU/L Class 0 [facility] Serum corn IgE antibody assa y (units/volume)Ordered By: Ashley Larose on 07-30-2024 [place] IgE Qn (S) 0.14 kU/L High Class 0/I [facility] Serum cow milk IgE antibody assay (units/volume)Ordered By: Ashley Larose on 07-30-2024 Cow milk IgE Qn (S) 0.60 kU/L High Class II [facility] Serum creatinine measurement (mass/volume)Ordered By: Ashley Larose on 07-30-2024 Creatinine [Mass/Vol] 0.66 mg/dL Low 0.70-1.[address] [facility] Serum globulin measurementOr dered By: Ashley Larose on 07-30-2024 Globulin (S) [Mass/Vol] 3.3 g/dL 2.2-4.2 [facility] Serum glucose measurement (m ass/volume)Ordered By: Ashley Larose on 07-30-2024 Glucose [Mass/Vol] 103 mg/dL High 70-99 [facility] Serum or plasma C reactive p rotein measurement (mass/volume)Ordered By: Ashley Larose on 07-30-2024 CRP [Mass/Vol] 4.37 mg/L High 0.0-3.0 [facility] Serum or plasma IgA measurem ent (mass/volume)Ordered By: Ashley Larose on 07-30-2024 IgA [Mass/Vol] 164 mg/dL 87-352 [facility] Serum or plasma alanine evans otransferase (ALT) measurementOrdered By: Ashley Larose on 07-30-2024 ALT [Catalytic activity/Vol] 53 U/L High <35 [facility] Serum or plasma albumin benita urement (mass/volume)Ordered By: Ashley Larose on 07-30-2024 Albumin [Mass/Vol] 4.6 g/dL 3.5-5.0 [facility] Serum or plasma alkaline angelina sphatase measurementOrdered By: Ashley Larose on 07-30-2024 ALP [Catalytic activity/Vol] 92 U/L 35-104 [facility] Serum or plasma calcium benita urement (mass/volume)Ordered By: Ashley Larose on 07-30-2024 Calcium [Mass/Vol] 9.7 mg/dL 7.6-11.0 [facility] Serum or plasma urea nitroge n measurement (mass/volume)Ordered By: Ashley Larose on 07-30-2024 Urea nitrogen [Mass/Vol] 9 mg/dL 4-19 [facility] Serum peanut IgE antibody as say (units/volume)Ordered By: Ashley Larose on 07-30-2024 Peanut IgE Qn (S) <0.10 kU/L Class 0 [facility] Serum pork IgE antibody assa y (units/volume)Ordered By: Ashley Larose on 07-30-2024 Pork IgE Qn (S) <0.10 kU/L Class 0 [facility] Serum salmon IgE antibody as say (units/volume)Ordered By: Ashley Larose on 07-30-2024 [place] IgE Qn (S) <0.10 kU/L Class 0 [facility] Serum soybean IgE antibody a ssay (units/volume)Ordered By: Ashley Larose on 07-30-2024 Soybean IgE Qn (S) <0.10 kU/L Class 0 [facility] Serum tissue transglutaminas e (tTG) IgA antibody assay (units/volume)Ordered By: Ashley Larose on 07-30-2024 tTG IgA Qn (S) <2 U/mL 0-3 [facility] Comment on above: Negative 0 - 3 Weak Positive 4 - 10 Positive >10 Tissue Transglutaminase (tTG) has been identified as the endomysial antigen. Studies have demonstr- ated that endomysial IgA antibodies have over 99% specificity for gluten sensitive enteropathy. Serum tuna IgE antibody assa y (units/volume)Ordered By: Ashley Larose on 07-30-2024 Tuna IgE Qn (S) <0.10 kU/L Class 0 [facility] Serum wheat IgE antibody ass ay (units/volume)Ordered By: Ashley Larose on 07-30-2024 Wheat IgE Qn (S) 0.33 kU/L High Class I [facility] Serum whole egg IgE antibody assay (units/volume)Ordered By: Ashley Larose on 07-30-2024 Whole Egg IgE Qn (S) 0.12 kU/L High Class 0/I [facility] Comment on above: Performed at: [address] [id number] Director: Juana Lee MD, Phone: [phone] Sodium levelOrdered By: Sylvia Larose on 07-30-2024 Sodium [Moles/Vol] 139 mmol/L 133-145 [facility] Total proteinOrdered By: Brandy Larose on 07-30-2024 Protein [Mass/Vol] 7.9 g/dL 5.9-8.4 [facility] Vitamin D,25 Hydroxyon 07-30 Vitamin D 25-OH 17.7 ng/mL Low 30-100 [facility] Comment on above: Result Comment: Sarina min D Status Deficiency: <20 ng/mL (50nmol/L) Insufficiency: 20-30 ng/mL (50-75 nmol/L) Sufficiency: 30-100 ng/mL (75-250 nmol/L) Toxicity: >100 ng/mL (>250 nmol/L) Performed By: #### L 500.2500 #### [facility] Laboratory [facility] [address] [place], [place], [id number] Hepatitis B Surface Antibody on 07-29-2024 HEP B Surf Ab REAC Normal [facility] Comment on above: Result Comment: <8.5 mIU/mL: Non-Reactive 8.5<= x <11.5 mIU/mL: Indeterminate >=11.5 mIU/mL: Reactive Non Reactive: Inconsistent with immunity less than <10 mIU/mL Reactive: Consistent with immunity greater than or equal to 10 mIU/mL Performed By: #### L 3890.6202 #### [facility] [address] [place], [address] Serum hepatitis B virus surf markel antibody detectionOrdered By: HEALTH ASSESSMENT on 07-29-2024 HBV surface Ab Ql (S) REAC [facility] Comment on above: <8.5 mIU/mL: Non-Lyric ctive8.5<= x <11.5 mIU/mL: Indeterminate>=11.5 mIU/mL: Reactive Non Reactive: Inconsistent with immunity less than <10 mIU/mL Reactive: Consistent with immunity greater than or equal to 10 mIU/mL Absolute lymphocyte countOrd ered By: Zurdo Maldonado on 07-24-2024 Lymphocytes Auto (Unsp spec) [#/Vol] 1.68 10*3/uL 0.83-4.51 [facility] Absolute neutrophil countOrd ered By: Zurdo Maldonado on 07-24-2024 Neutrophils (Bld) [#/Vol] 3.3 10*3/uL 2.0-7.7 [facility] Automated lymphocyte count a s percentage of total leukocytesOrdered By: Zurdo Maldonado on 07-24-2024 Lymphocytes/100 WBC Auto (Unsp spec) 30.8 % 19-41 [facility] Basophil percentageOrdered B y: Zurdo Maldonado on 07-24-2024 Basophils/100 WBC (Bld) 0.6 % 0-1 [facility] CBC W/Diff, Automatedon Absolute Lymph 1.68 X10 3/uL Normal 0.83-4.51 [facility] Comment on above: Performed By: #### L 100.0100 #### [facility] Laboratory [address] [place], [address] Absolute Neut 3.3 X10 3/uL Normal 2.0-7.7 [facility] Comment on above: Performed By: #### L 100.0100 #### [facility] [address] [place], [address] Basophils/100 WBC (Bld) 0.6 % Normal 0-1 [facility] Comment on above: Performed By: #### L 100.0100 #### [facility] [address] [place], [address] Eosinophils/100 WBC (Bld) 2.4 % Normal 0-5 [facility] Comment on above: Performed By: #### L 100.0100 #### [facility] [address] [place], [address] Erythrocyte distribution width (RBC) [Ratio] 13.9 % Normal 11.6-14.6 [facility] Comment on above: Performed By: #### L 100.0100 #### [facility] [address] [place], [address] Hematocrit (Bld) [Volume fraction] 37.9 % Normal 37-47 [facility] Comment on above: Performed By: #### L 100.0100 #### [facility] [address] [place], [address] Hemoglobin (Bld) [Mass/Vol] 12.6 g/dL Normal 12.0-15.0 [facility] Comment on above: Performed By: #### L 100.0100 #### [facility] [address] [place], [address] IG% 0.400 Normal 0.0-0.9 [facility] Comment on above: Result Comment: IG% - Immature Granulocytes (promyelocytes, myelocytes and metamyelocytes) > 1% indicates that a LEFT SHIFT is Present. Performed By: #### L 100.0100 #### [facility] [address] [place], [address] Lymphocytes/100 WBC (Bld) 30.8 % Normal 19-41 [facility] Comment on above: Performed By: #### L 100.0100 #### [facility] [address] [place], [address] MCH (RBC) [Entitic mass] 26.4 pg Low 27.0-32.0 [facility] Comment on above: Performed By: #### L 100.0100 #### [facility] [address] [place], [address] MCHC (RBC) [Mass/Vol] 33.2 g/dL Normal 32-[address] [facility] Comment on above: Performed By: #### L 100.0100 #### [facility] [address] [place], [address] MCV (RBC) [Entitic vol] 79.3 fL Low 81-99 [facility] Comment on above: Performed By: #### L 100.0100 #### [facility] [address] [place], [address] Monocytes/100 WBC (Bld) 5.7 % Normal 0-10 [facility] Comment on above: Performed By: #### L 100.0100 #### [facility] [address] [place], [address] Neutrophils/100 WBC (Bld) 60.1 % Normal 47-70 [facility] Comment on above: Performed By: #### L 100.0100 #### [facility] [address] [place], [address] Nucleated RBC (Bld) [#/Vol] 0 10*3/uL Normal 0-5 [facility] Comment on above: Performed By: #### L 100.0100 #### [facility] Laboratory [address] [place], [address] Platelet mean volume (Bld) [Entitic vol] 11.8 fL Normal 6.2-12.0 [facility] Comment on above: Performed By: #### L 100.0100 #### [facility] Laboratory [address] [place], [address] Platelets (Bld) [#/Vol] 216 10*3/uL Normal 150-450 [facility] Comment on above: Performed By: #### L 100.0100 #### [facility] Laboratory [address] [place], [address] RBC (Bld) [#/Vol] 4.78 10*6/uL Normal 4.2-5.4 [facility] Comment on above: Performed By: #### L 100.0100 #### [facility] [address] [place], [address] RDW SD 39.8 fl Normal 35.1-43.9 [facility] Comment on above: Performed By: #### L 100.0100 #### [facility] [address] [place], [address] WBC (Bld) [#/Vol] 5.5 10*3/uL Normal 4.4-11.0 [facility] Comment on above: Performed By: #### L 100.0100 #### [facility] [address] [place], [address] Emergency Department Summary on 07-24-2024 Emergency Department Summary [facility] Medical Records Department [address] [place] [address] Emergency Department Summary 07/24/24 MR#: [id number] Acct: [id number] Name: JUANITA PAULINO Rep #: [id number] : 2000 24 From: Zurdo Maldonado DO PCP: Dr. Tiffany Marks MD Status:DEP [...] size of her palm and messaged her yarder. She states she had some small clots throughout the night this morning when she got to work coworkers mention that she did not appear her normal self. She states she feels flushed and has a slight headache. She notes pelvic cramping. Patient states she is not currently on any hormonal medications. She heard back from her yarder and was advised to come to emergency. She denies any known bleeding disorders. 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 Normal [facility] Eosinophil percentageOrdered By: Zurdo Maldonado on 07-24-2024 Eosinophils/100 WBC (Bld) 2.4 % 0-5 [facility] Erythrocyte distribution wid th ratioOrdered By: Zurdo Maldonado on 07-24-2024 Erythrocyte distribution width (RBC) [Ratio] 13.9 % 11.6-14.6 [facility] Erythrocyte distribution wid th standard deviationOrdered By: Zurdo Maldonado on 07-24-2024 Erythrocyte distribution width (RBC) [Ratio] 39.8 fl 35.1-43.9 [facility] Hematocrit Auto (Bld) [Volum e fraction]Ordered By: Zurdo Maldonado on 07-24-2024 Hematocrit (Bld) [Volume fraction] 37.9 % 37-47 [facility] Hemoglobin measurementOrdere d By: Zurdo Maldonado on 07-24-2024 Hemoglobin (Bld) [Mass/Vol] 12.6 g/dL 12.0-15.0 [facility] Immature granulocytes/100 WB C Auto (Bld)Ordered By: Zurdo Maldonado on 07-24-2024 Immature granulocytes/100 WBC (Bld) 0.400 % 0.0-0.9 [facility] Comment on above: IG% - Immature Granu locytes (promyelocytes, myelocytes and metamyelocytes) > 1% indicates that a LEFT SHIFT is Present. MCV (mean corpuscular volume ) determinationOrdered By: Zurdo Maldonado on 07-24-2024 MCV (RBC) [Entitic vol] 79.3 fL Low 81-99 [facility] Mean corpuscular hemoglobin (MCH) determinationOrdered By: Zurdo Maldonado on 07-24-2024 MCH (RBC) [Entitic mass] 26.4 pg Low 27.0-32.0 [facility] Mean corpuscular hemoglobin concentration (MCHC) determinationOrdered By: Zurdo Maldonado on 07-24-2024 MCHC (RBC) [Mass/Vol] 33.2 g/dL 32-[address] [facility] Mean platelet volume determi nationOrdered By: Zurdo Maldonado on 07-24-2024 Platelet mean volume (Bld) [Entitic vol] 11.8 fL 6.2-12.0 [facility] Monocyte percentageOrdered B y: Zurdo Maldonado on 07-24-2024 Monocytes/100 WBC (Bld) 5.7 % 0-10 [facility] Neutrophil percentageOrdered By: Zurdo Maldonado on 07-24-2024 Neutrophils/100 WBC (Bld) 60.1 % 47-70 [facility] Nucleated red blood cell per centageOrdered By: Zurdo Maldonado on 07-24-2024 Nucleated RBC/100 WBC (Bld) [Ratio] 0 % 0-5 [facility] Platelet countOrdered By: Tomer Maldonado on 07-24-2024 Platelets (Bld) [#/Vol] 216 10*3/uL 150-450 [facility] ,Serum,hCG Quali.on 07-24-2024 HCG, SERUM QUAL Negative Normal [facility] Comment on above: Performed By: #### L 700.6800 #### [facility] Laboratory [address] [place], [address] RBC Auto (Bld) [#/Vol]Ordere d By: Zurdo Maldonado on 07-24-2024 RBC (Bld) [#/Vol] 4.78 10*6/uL 4.2-5.4 [facility] Serum beta-hCG test, qualita tiveOrdered By: Zurdo Maldonado on 07-24-2024 Beta HCG ( test) Ql Negative [facility] Transvaginal Non-on 07-24-2024 Transvaginal Non- [facility] Imaging Services [address] [place], [place] [address] Transvaginal Non- MR#: [id number] Acct: [id number] Name: JUANITA PAULINO Rep #: [id number] : 2000 F 24 From: Reagan Lott PCP: Dr. Tiffany Marks MD Status: DEP ER Study: Transvaginal Non- Date of Exam: Exam# [id number] Ordering Dr: Zurdo Maldonado DO ADDENDUM by Dr. Reagan Rodriguez MD on 08/11/24 at 1215 The left ovarian cyst is likely benign appearance. Follow-up imaging in 2-3 cycles may be helpful to confirm this. Reading Location: [facility] 08/11/24 1215 Date cc: Dr. Tiffany Marks [...] cyst. 2. Negative examination, otherwise. Reading Location: [address] CC: Dr. Tiffany Marks MD; Dr. Zurdo Maldonado DO Stockroom Keeper: Signed Normal [facility] White blood cell (WBC) count Ordered By: Zurdo Maldonado on 07-24-2024 WBC (Bld) [#/Vol] 5.5 10*3/uL 4.4-11.0 [facility] Serum human chorionic gonado tropin detection for pregnancyOrdered By: Libertad Pate on 07-16-2024 HCG ( test) Ql < 1 mIU/mL <9 [facility] Comment on above: Gestational Age0.2-1 Week: 5-50 mIU/mL1-2 Weeks: 50-500 mIU/mL2-3 Weeks: 100-5000 mIU/mL3-4 Weeks: 500-10,000 mIU/mL4-5 Weeks:1000-50,000 mIU/mL5-6 Weeks: 10,000-100,000 mIU/mL6-8 Weeks: 15,000-200,000 mIU/mL2-3 Months:10,000-100,000 mIU/mL hCG Titer Quant., Serumon HCG QUANT. < 1 Normal <9 non-preg [facility] Comment on above: Result Comment: Gest ational Age 0.2-1 Week: 5-50 mIU/mL 1-2 Weeks: 50-500 mIU/mL 2-3 Weeks: 100-5000 mIU/mL 3-4 Weeks: 500-10,000 mIU/mL 4-5 Weeks:1000-50,000 mIU/mL 5-6 Weeks: 10,000-100,000 mIU/mL 6-8 Weeks: 15,000-200,000 mIU/mL 2-3 Months:10,000-100,000 mIU/mL Performed By: #### L 700.8000 #### [facility] Laboratory [address] [address] Hepatitis B Surface Antibody on 06-05-2024 HEP B Surf Ab Non-Reactive Normal [facility] Comment on above: Result Comment: <8.5 mIU/mL: Non-Reactive 8.5<= x <11.5 mIU/mL: Indeterminate >=11.5 mIU/mL: Reactive Non Reactive: Inconsistent with immunity less than <10 mIU/mL Reactive: Consistent with immunity greater than or equal to 10 mIU/mL Performed By: #### L 3890.6202 #### [facility] [address] [place], [address] Serum hepatitis B virus surf markel antibody detectionOrdered By: [facility] on 06-05-2024 HBV surface Ab Ql (S) Non-Reactive [facility] Comment on above: <8.5 mIU/mL: Non-Lyric ctive8.5<= x <11.5 mIU/mL: Indeterminate>=11.5 mIU/mL: Reactive Non Reactive: Inconsistent with immunity less than <10 mIU/mL Reactive: Consistent with immunity greater than or equal to 10 mIU/mL Pelvic w/ Transvaginalon Pelvic w/ Transvaginal [facility] Imaging Services [address] [place], [place] [address] Pelvic w/ Transvaginal MR#: [id number] Acct: [id number] Name: JUANITA PAULINO Rep #: [id number] : 2000 F 23 From: Marquez Olivares MD PCP: JEFF VELASCO Status: REG CLI Study: Pelvic w/ Transvaginal Date of Exam: 01/19/24 Exam# [id number] Ordering Dr: Libertad Pate [place]-C [id number] INDICATION: ovarian cyst monitoring EXAMINATION: Ultrasound US [...] EST , CC: DELMIS Pate; JEFF VELASCO Stockroom Keeper: Signed Oc [facility] XR ANKLE MINIMUM 3 VIEWS LEF Ton [...] Date: 08/07/2023 12:22:15 PM Ordering Provider: ZEYNEP MOURA [facility] ([place]) US TRANSVAGINAL NON OBon US TRANSVAGINAL NON [...] Date: 07/06/2023 8:45:18 AM Ordering Provider: ARACELIS Renae [facility] ([place]) .Auto Diffon 06-26-2023 Basophil, Absolute 0.0 10 3/mcL Normal 0.0-0.2 [facility] ([place]) Comment on above: Performed By: #### C BC, GFR, SILVANA TEE, ANEU, BMP #### [address] [address] Basophils/100 WBC (Bld) 0.2 % Normal 0.0-2.5 A [facility] ([place]) Comment on above: Performed By: #### C BC, GFR, RANDAL, SILVANA, ANEU, BMP #### [address] [address] Eosinophil, Absolute 0.2 10 3/mcL Normal 0.0-0.4 [facility] ([place]) Comment on above: Performed By: #### C BC, GFR, SILVANA TEE, ANEU, BMP #### [address] [address] Eosinophils/100 WBC (Bld) 2.2 % Normal 0.0-7.0 [facility] ([place]) Comment on above: Performed By: #### C BC, GFRRANDAL MDW, ANEU, BMP #### [address] [address] Lymphocyte, Absolute 1.5 10 3/mcL Normal 0.8-3.9 [facility] ([place]) Comment on above: Performed By: #### C BC, GFR, SILVANA TEE, ANEU, BMP #### [address] [address] Lymphocytes/100 WBC (Bld) 20.3 % Normal 10.0-50.0 [facility] ([place]) Comment on above: Performed By: #### C BC, GFRRANDAL MDW, ANEU, BMP #### [address] [address] Monocyte, Absolute 0.4 10 3/mcL Normal 0.2-1.0 [facility] ([place]) Comment on above: Performed By: #### C BC, GFRRANDAL MDW, ANEU, BMP #### [address] [address] Monocytes/100 WBC (Bld) 5.9 % Normal 1.7-13.0 A [facility] ([place]) Comment on above: Performed By: #### C BC, GFR, SILVANA TEE, ANEU, BMP #### [address] [address] Neutrophils/100 WBC (Bld) 71.4 % Normal 37.0-80.0 [facility] ([place]) Comment on above: Performed By: #### C BC, GFR, SILVANA TEE, ANEU, BMP #### [address] [address] .GFRon 06-26-2023 GFR Non- 92 ml/min/1.73sqm Normal [facility] ([place]) Comment on above: Result Comment: GFR Population [...] meters Performed By: #### C BC, GFR, ADSILVANA WARNER, ANEU, BMP #### [address] [address] GFR 112 ml/min/1.73sqm Normal [facility] ([place]) Comment on above: Result Comment: GFR Population [...] BC, GFR, ADTIMMY, SILVANA, ANEU, BMP #### [place] [id number] .MDWon 06-26-2023 Monocyte Distribution Width 16.82 Normal 0.00-20.00 [facility] ([place]) Comment on above: Result Comment: For ED adult patients suspected of sepsis, MDW<=20.0 does not rule out sepsis or risk of sepsis Performed By: #### C BC, GFR, SILVANA TEE, ANEU, BMP #### [place] [address] .NEUABSon 06-26-2023 Neutrophil, Absolute 5.3 10 3/mcL Normal 2.9-6.2 [facility] ([place]) Comment on above: Performed By: #### C BC, GFR, SILVANA TEE, ANEU, BMP #### [place] [address] .Urinalysis Microscopic (AO) on 06-26-2023 UA RBC None Seen Normal None Seen [facility] ([place]) Comment on above: Performed By: #### C BC, GFR, SILVANA TEE, ANEU, BMP #### [place] [id number] UA Squam Epithelial LOADED Abnormal None Seen [facility] ([place]) Comment on above: Performed By: #### C BC, GFR, SILVANA TEE, ANEU, BMP #### [place] [id number] UA WBC 0-5 Abnormal None Seen [facility] ([place]) Comment on above: Performed By: #### C BC, GFR, ADSILVANA WARNER, ANEU, BMP #### [address] [address] CBCon 06-26-2023 Erythrocyte distribution width (RBC) [Ratio] 14.6 % High 11.5-14.5 [facility] ([place]) Comment on above: Performed By: #### C BC, GFRRANDAL MDW, ANEU, BMP #### [place] [id number] Hematocrit (Bld) [Volume fraction] 38.3 % Normal 37.0-47.0 [facility] ([place]) Comment on above: Performed By: #### C BC, GFR, RANDAL, SILVANA, ANEU, BMP #### [place] [id number] Hgb 13.1 G/dL Normal 12.0-16.0 [facility] ([place]) Comment on above: Performed By: #### C BC, GFRRANDAL MDW, ANEU, BMP #### [place] [id number] MCH (RBC) [Entitic mass] 26.1 pg Low 27.0-31.2 [facility] ([place]) Comment on above: Performed By: #### C MAGDALENE GFRRANDAL MDW, ANEU, BMP #### [place] [id number] MCHC 34.1 G/dL Normal 33.0-37.0 [facility] ([place]) Comment on above: Performed By: #### C BC, GFRRANDAL MDW, ANEU, BMP #### [place] [id number] MCV (RBC) [Entitic vol] 76.7 fL Low 80.0-94.0 A [facility] ([place]) Comment on above: Performed By: #### C BC GFRRANDAL MDW, ANEU, BMP #### [place] [id number] Platelet 224 10 3/mcL Normal 130-400 [facility] ([place]) Comment on above: Performed By: #### C BC, GFRRANDAL MDW, ANEU, BMP #### [address] [address] Platelet mean volume (Bld) [Entitic vol] 9.7 fL Normal 7.4-10.4 [facility] ([place]) Comment on above: Performed By: #### C BC, GFR, ADTIMMY, SILVANA, ANEU, BMP #### [address] [address] RBC 5.00 10 6/mcL Normal 4.20-5.40 [facility] ([place]) Comment on above: Performed By: #### C BC, GFR, RANDAL, SILVANA, ANEU, BMP #### [address] [address] WBC 7.4 10 3/mcL Normal 4.6-10.8 [facility] ([place]) Comment on above: Performed By: #### C BC, GFR, RANDAL, SILVANA, ANEU, BMP #### [address] [address] CMPon 06-26-2023 Albumin Level 3.9 G/dL Normal 3.5-5.0 [facility] ([place]) Comment on above: Performed By: #### C BC, GFR, RANDAL, SILVANA, ANEU, BMP #### [address] [address] Albumin/Globulin [Mass ratio] 1.0 {ratio} Low 1.1-2.5 [facility] ([place]) Comment on above: Performed By: #### C BC, GFR, ADTIMMY, W, ANEU, BMP #### [address] [address] ALP [Catalytic activity/Vol] 97 U/L Normal 40-135 [facility] ([place]) Comment on above: Performed By: #### C BC, GFR, ADTIMMY, MDW, ANEU, BMP #### [address] [address] ALT [Catalytic activity/Vol] 57 U/L Normal 14-59 [facility] ([place]) Comment on above: Performed By: #### C BC, GFR, ADTIMMY, W, ANEU, BMP #### [address] [address] AST [Catalytic activity/Vol] 33 U/L Normal 10-40 [facility] ([place]) Comment on above: Performed By: #### C BC, GFR, ADTIMMY, MDW, ANEU, BMP #### [address] [address] Bili Total 0.9 mg/dL Normal 0.2-1.0 [facility] ([place]) Comment on above: Result Comment: Use of this assay is not recommended for patients undergoing treatment with eltrombopag due to the potential for falsely elevated results. Performed By: #### C BC, GFR, ADTIMMY, SILVANA, ANEU, BMP #### [address] [address] BUN/Creatinine Ratio 18 ratio Normal 7-27 [facility] ([place]) Comment on above: Performed By: #### C BC, GFR, ADTIMMY, W, ANEU, BMP #### [address] [address] Calcium [Mass/Vol] 8.9 mg/dL Normal 8.4-10.2 [facility] ([place]) Comment on above: Performed By: #### C BC, GFR, ADTIMMY, W, ANEU, BMP #### [address] [address] Chloride [Moles/Vol] 101 mmol/L Normal 98-107 [facility] ([place]) Comment on above: Performed By: #### C BC, GFR, ADTIMMY, MDW, ANEU, BMP #### [address] [address] CO2 [Moles/Vol] 29 mmol/L Normal 22-29 [facility] ([place]) Comment on above: Performed By: #### C BC, GFR, ADIFF, MDW, ANEU, BMP #### [address] [address] Creatinine [Mass/Vol] 0.77 mg/dL Normal 0.55-1.02 [facility] ([place]) Comment on above: Performed By: #### C BC, GFR, SILVANA TEE, ANEU, BMP #### [address] [address] Electrolyte Balance 9.0 mEq/L Normal 4.0-15.0 [facility] ([place]) Comment on above: Performed By: #### C BC, GFR, SILVANA TEE, ANEU, BMP #### [address] [address] Globulin 3.9 G/dL Normal [facility] ([place]) Comment on above: Performed By: #### C BC, GFR, SILVANA TEE, ANEU, BMP #### [address] [address] Glucose [Mass/Vol] 126 mg/dL High 70-105 [facility] ([place]) Comment on above: Performed By: #### C BC, GFR, SILVANA TEE, ANEU, BMP #### [address] [address] Potassium [Moles/Vol] 3.8 mmol/L Normal 3.5-5.1 [facility] ([place]) Comment on above: Performed By: #### C BC, GFR, SILVANA TEE, ANEU, BMP #### [address] [address] Sodium [Moles/Vol] 139 mmol/L Normal 136-145 [facility] ([place]) Comment on above: Performed By: #### C BC, GFR, SILVANA TEE, ANEU, BMP #### [address] [address] Total Protein 7.8 G/dL Normal 6.4-8.2 [facility] ([place]) Comment on above: Performed By: #### C BC, GFR, SILVANA TEE, ANEU, BMP #### [address] [address] Urea nitrogen [Mass/Vol] 14 mg/dL Normal 7-18 [facility] ([place]) Comment on above: Performed By: #### C BC, GFR, ADTIMMY, MDW, ANEU, BMP #### [place] [address] [place] [address] LABORATORYOrdered By: SYSTEM SYSTEM on 06-26-2023 Albumin [...] MCH (RBC) [Entitic mass] 26.1 pg Low 27. 0 - 31.2 pg AO Workflow SS MCHC [...] [Mass/Vol] 14 mg/dL Normal 7 - 18 mg/d L AO ADM SS Urea nitrogen/Creatinine [Mass ratio] [...] 06-26-2023 Lipase Level 37 U/L Normal 16-77 [facility] ([place]) Comment on above: Performed By: #### C BC, GFR, ADTIMMY, MDW, ANEU, BMP #### [address] [address] PREGUon 06-26-2023 HCG ( test) Ql (U) Negative Normal [facility] ([place]) Comment on above: Performed By: #### C NGOZI DEL CASTILLO ADIFF, MDW, ANEU, BMP #### [address] [address] test (u) int Not detected Invalid Interpretation Code [facility] ([place]) Comment on above: Performed By: #### C MAGDALENE, GFRRANDAL MDW, ANEU, BMP #### [address] [address] UAon 06-26-2023 Color (U) Yellow Normal [facility] ([place]) Comment on above: Performed By: #### C NGOZI DEL CASTILLO ADIFF, MDW, ANEU, BMP #### [address] [address] Glucose (U) [Mass/Vol] Negative Normal Negative [facility] ([place]) Comment on above: Performed By: #### C BC, GFRRANDAL MDW, ANEU, BMP #### [address] [address] Ketones Ql (U) Negative Normal Negative [facility] ([place]) Comment on above: Performed By: #### C MAGDALENE GFRRANDAL MDW, ANEU, BMP #### [address] [address] UA Appear Clear Normal Clear [facility] ([place]) Comment on above: Performed By: #### C BC GFRRANDAL MDW, ANEU, BMP #### [address] [address] UA Blood Negative Normal Negative [facility] ([place]) Comment on above: Performed By: #### C MAGDALENE GFRRANDAL MDW, ANEU, BMP #### [address] [address] UA Nitrite Negative Normal Negative [facility] ([place]) Comment on above: Performed By: #### C BC, GFRRANDAL MDW, ANEU, BMP #### [address] [address] UA Spec Grav >=1.030 Abnormal 1.015-1.025 [facility] ([place]) Comment on above: Performed By: #### C BC, GFR, RANDAL, SILVANA, ANEU, BMP #### [address] [address] UA Specimen Type Clean Catch Normal [facility] ([place]) Comment on above: Performed By: #### C BC, GFR, RANDAL, SILVANA, ANEU, BMP #### [address] [address] UA Urobilinogen 0.2 E.U./dL Normal 0.2-1.0 [facility] ([place]) Comment on above: Performed By: #### C BC, GFR, RANDAL, SILVANA, ANEU, BMP #### [address] [address] Urobilinogen (U) [Mass/Vol] Negative Normal Negative [facility] ([place]) Comment on above: Performed By: #### C BC, GFR, RANDAL, SILVANA, ANEU, BMP #### [address] [address] UA Leuk Est Small Abnormal Negative [facility] ([place]) Comment on above: Performed By: #### C BC, GFR, RANDAL, W, ANEU, BMP #### [address] [address] UA pH 5.5 Normal 5.0 - 8.0 [facility] ([place]) Comment on above: Performed By: #### C BC, GFR, RANDAL, W, ANEU, BMP #### [address] [address] UA Protein Negative Normal Negative [facility] ([place]) Comment on above: Performed By: #### C BC, GFR, RANDAL, W, ANEU, BMP #### [address] [address] US ABDOMEN COMPLETEon 2023 US ABDOMEN COMPLETE [...] the resident's findings and interpretation. Interpreted by: lAex Tejada DO Preliminary Report By: Terry Molina Electronically signed By Alex Tejada DO Dictated Date: 06/26/2023 1:43:35 PM Prelim Date: 06/26/2023 2:29:44 PM Sign Date: 06/26/2023 2:29:44 PM Ordering Provider: FELIPA TALAVERA [facility]) FOODADon 05-20-2023 Class Description Comment [facility]) Comment on above: Result Comment: Levels of Specific IgE Class Description of Class ----- < 0.10 0 Negative 0.10 - 0.31 0/I Equivocal/Low 0.32 - 0.55 I Low 0.56 - 1.40 II Moderate 1.41 - 3.90 III High 3.91 - 19.00 IV Very High 19.01 - 100.00 V Very High >100.00 Very High Performed By: #### C BC, GFR, ADIFF, MDW, ANEU, BMP #### [place] [address] IgE Clam F207 <0.10 Normal Class 0 [facility] ([place]) Comment on above: Performed By: #### C BC, GFR, ADIFF, MDW, ANEU, BMP #### [place] [address] IgE Codfish F003 <0.10 Normal Class 0 [facility] ([place]) Comment on above: Performed By: #### C BC, GFR, ADIFF, MDW, ANEU, BMP #### [place] [address] IgE [place] F008 <0.10 Normal Class 0 [facility] ([place]) Comment on above: Performed By: #### C BC, GFR, ADIFF, MDW, ANEU, BMP #### [place] [address] IgE Egg White F001 0.15 kunits/L Abnormal Class 0/I [facility] ([place]) Comment on above: Performed By: #### C BC, GFR, ADIFF, MDW, ANEU, BMP #### [place] [address] IgE Milk F002 0.26 kunits/L Abnormal Class 0/I [facility] ([place]) Comment on above: Performed By: #### C BC, GFR, ADIFF, MDW, ANEU, BMP #### [place] [address] IgE Peanut F013 <0.10 Normal Class 0 [facility] ([place]) Comment on above: Performed By: #### C BC, GFR, ADIFF, MDW, ANEU, BMP #### [place] [address] IgE Scallop F338 <0.10 Normal Class 0 [facility] ([place]) Comment on above: Performed By: #### C BC, GFR, ADIFF, MDW, ANEU, BMP #### [address] [address] IgE Sesame Seed F010 <0.10 Normal Class 0 [facility] ([place]) Comment on above: Result Comment: Perf ormed At: [facility] [id number] Jesus Arias MD Ph:[phone] Performed By: #### C BC, GFR, RANDAL, SILVANA, ANEU, BMP #### [place] [address] IgE Shrimp F024 <0.10 Normal Class 0 [facility] ([place]) Comment on above: Performed By: #### C BC, GFR, RANDAL, SILVANA, ANEU, BMP #### [place] [address] IgE Soybean F014 <0.10 Normal Class 0 [facility] ([place]) Comment on above: Performed By: #### C BC, GFR, RANDAL, SILVANA, ANEU, BMP #### [address] [address] IgE Nekoma F256 <0.10 Normal Class 0 [facility] ([place]) Comment on above: Performed By: #### C BC, GFR, RANDAL, SILVANA, ANEU, BMP #### [address] [address] IgE Wheat F004 0.22 kunits/L Abnormal Class 0/I [facility] ([place]) Comment on above: Performed By: #### C BC, GFR, RANDAL, SILVANA, ANEU, BMP #### [address] [address] .Auto Diffon 05-16-2023 Basophil, Absolute 0.1 10 3/mcL Normal 0.0-0.2 [facility] ([place]) Comment on above: Performed By: #### C BC, GFR, RANDAL, SILVANA, ANEU, BMP #### [address] [address] Basophils/100 WBC (Bld) 1.0 % Normal 0.0-2.5 A [facility] ([place]) Comment on above: Performed By: #### C BC, GFR, ADIFF, MDW, ANEU, BMP #### [address] [address] Eosinophil, Absolute 0.3 10 3/mcL Normal 0.0-0.4 [facility] ([place]) Comment on above: Performed By: #### C BC, GFR, ADIFF, MDW, ANEU, BMP #### [address] [address] Eosinophils/100 WBC (Bld) 4.0 % Normal 0.0-7.0 [facility] ([place]) Comment on above: Performed By: #### C BC, GFR, ADIFF, MDW, ANEU, BMP #### [address] [address] Lymphocyte, Absolute 2.3 10 3/mcL Normal 0.8-3.9 [facility] ([place]) Comment on above: Performed By: #### C BC, GFR, ADIFF, MDW, ANEU, BMP #### [address] [address] Lymphocytes/100 WBC (Bld) 33.1 % Normal 10.0-50.0 [facility] ([place]) Comment on above: Performed By: #### C BC, GFR, ADIFF, MDW, ANEU, BMP #### [address] [address] Monocyte, Absolute 0.5 10 3/mcL Normal 0.2-1.0 [facility] ([place]) Comment on above: Performed By: #### C BC, GFR, ADIFF, MDW, ANEU, BMP #### [address] [address] Monocytes/100 WBC (Bld) 7.2 % Normal 1.7-13.0 [facility] ([place]) Comment on above: Performed By: #### C BC, GFR, ADIFF, MDW, ANEU, BMP #### [address] [address] Neutrophils/100 WBC (Bld) 54.7 % Normal 37.0-80.0 [facility] ([place]) Comment on above: Performed By: #### C BC, GFR, SILVANA TEE, ANEU, BMP #### [address] [address] .GFRon 05-16-2023 GFR Non- 92 ml/min/1.73sqm Normal [facility] ([place]) Comment on above: Result Comment: GFR Population [...] BC, GFR, SILVANA TEE, ANEU, BMP #### [address] [address] GFR 112 ml/min/1.73sqm Normal [facility] ([place]) Comment on above: Result Comment: GFR Population [...] BC, GFR, SILVANA TEE, ANEU, BMP #### [address] [address] .MDWon 05-16-2023 Monocyte Distribution Width 17.01 Normal 0.00-20.00 [facility] ([place]) Comment on above: Result Comment: For ED adult patients suspected of sepsis, MDW<=20.0 does not rule out sepsis or risk of sepsis Performed By: #### C BC, GFR, ADTIMMY, MDW, ANEU, BMP #### [address] [address] .NEUABSon 05-16-2023 Neutrophil, Absolute 3.8 10 3/mcL Normal 2.9-6.2 [facility] ([place]) Comment on above: Performed By: #### C BC, GFR, ADTIMMY, SILVANA, ANEU, BMP #### [place] [id number] BMPon 05-16-2023 BUN/Creatinine Ratio 22 ratio Normal 7-27 [facility] ([place]) Comment on above: Performed By: #### C BC, GFR, ADTIMMY, W, ANEU, BMP #### [address] [address] Calcium [Mass/Vol] 8.9 mg/dL Normal 8.4-10.2 [facility] ([place]) Comment on above: Performed By: #### C BC, GFR, ADTIMMY, W, ANEU, BMP #### [address] [address] Chloride [Moles/Vol] 101 mmol/L Normal 98-107 [facility] ([place]) Comment on above: Performed By: #### C BC, GFR, ADIFF, MDW, ANEU, BMP #### [address] [address] CO2 [Moles/Vol] 25 mmol/L Normal 22-29 [facility] ([place]) Comment on above: Performed By: #### C BC, GFR, ADIFF, MDW, ANEU, BMP #### [address] [address] Creatinine [Mass/Vol] 0.77 mg/dL Normal 0.55-1.02 [facility] ([place]) Comment on above: Performed By: #### C BC, GFR, RANDAL, SILVANA, ANEU, BMP #### [address] [address] Electrolyte Balance 11.0 mEq/L Normal 4.0-15.0 [facility] ([place]) Comment on above: Performed By: #### C BC, GFR, RANDAL, W, ANEU, BMP #### [address] [address] Glucose [Mass/Vol] 86 mg/dL Normal 70-105 [facility] ([place]) Comment on above: Performed By: #### C BC, GFR, SILVANA TEE, ANEU, BMP #### [address] [address] Potassium [Moles/Vol] 4.1 mmol/L Normal 3.5-5.1 [facility] ([place]) Comment on above: Performed By: #### C BC, GFR, RANDAL, SILVANA, ANEU, BMP #### [address] [address] Sodium [Moles/Vol] 137 mmol/L Normal 136-145 [facility] ([place]) Comment on above: Performed By: #### C BC, GFR, RANDAL, SILVANA, ANEU, BMP #### [address] [address] Urea nitrogen [Mass/Vol] 17 mg/dL Normal 7-18 [facility] ([place]) Comment on above: Performed By: #### C BC, GFR, SILVANA TEE, ANEU, BMP #### [address] [address] CBCon 05-16-2023 Erythrocyte distribution width (RBC) [Ratio] 15.5 % High 11.5-14.5 [facility] ([place]) Comment on above: Performed By: #### C BC, GFR, ADTIMMY, W, ANEU, BMP #### [address] [address] Hematocrit (Bld) [Volume fraction] 38.5 % Normal 37.0-47.0 [facility] ([place]) Comment on above: Performed By: #### C BC, GFR, RANDAL, W, ANEU, BMP #### [address] [address] Hgb 13.2 G/dL Normal 12.0-16.0 [facility] ([place]) Comment on above: Performed By: #### C BC, GFR, RANDAL, MDW, ANEU, BMP #### [place] [id number] MCH (RBC) [Entitic mass] 26.0 pg Low 27.0-31.2 [facility] ([place]) Comment on above: Performed By: #### C BC, GFR, RANDAL, W, ANEU, BMP #### [place] [address] MCHC 34.3 G/dL Normal 33.0-37.0 [facility] ([place]) Comment on above: Performed By: #### C BC, GFR, ADTIMMY, MDW, ANEU, BMP #### [address] [address] MCV (RBC) [Entitic vol] 75.9 fL Low 80.0-94.0 A [facility] ([place]) Comment on above: Performed By: #### C BC, GFR, ADTIMMY, MDW, ANEU, BMP #### [address] [address] Platelet 248 10 3/mcL Normal 130-400 [facility] ([place]) Comment on above: Performed By: #### C BC, GFR, ADTIMMY, MDW, ANEU, BMP #### [address] [address] Platelet mean volume (Bld) [Entitic vol] 9.7 fL Normal 7.4-10.4 [facility] ([place]) Comment on above: Performed By: #### C BC, GFR, ADIFF, MDW, ANEU, BMP #### [place] [id number] RBC 5.07 10 6/mcL Normal 4.20-5.40 [facility] ([place]) Comment on above: Performed By: #### C MAGDALENE, GFRRANDAL MDW, ANEU, BMP #### [place] [address] [place], [place] [address] WBC 7.0 10 3/mcL Normal 4.6-10.8 [facility] ([place]) Comment on above: Performed By: #### C MAGDALENE, GFR, SILVANA TEE, ANEU, BMP #### [place] [address] [place], [place] [address] LABORATORYOrdered By: SYSTEM SYSTEM on 05-16-2023 Basophil, [...] MCH (RBC) [Entitic mass] 26.0 pg Low 27. 0 - 31.2 pg AO Workflow SS MCHC [...] [Mass/Vol] 17 mg/dL Normal 7 - 18 mg/d L AO ADM SS Urea nitrogen/Creatinine [Mass ratio] 22 ratio Normal 7 - 27 ratio AO ADM SS WBC (Bld) [#/Vol] 7.0 103/mcL Normal 4.6 - 10.8 10^3/mcL AO Workflow SS HCGQon 05-15-2023 hCG, quantitative <1.0 Normal [facility] ([place]) Comment on above: Result Comment: HCG Levels [...] - 100,000 mIU/mL Performed By: #### C NGOZI DEL CASTILLO ADIFF, MDW, FABI, BMP #### [place] [address] [address] LABORATORYOrdered By: SYSTEM SYSTEM on 05-15-2023 HCG [...] Basophil, Absolute 0.0 10 3/mcL Normal 0.0-0.2 [facility] ([place]) Comment on above: Performed By: #### C MAGDALENE, RANDAL MELVIN MDW, ANEU, BMP #### [address] [address] Basophils/100 WBC (Bld) 0.2 % Normal 0.0-2.5 A [facility] ([place]) Comment on above: Performed By: #### C BC, GFR, ADIFF, MDW, ANEU, BMP #### [address] [address] Eosinophil, Absolute 0.2 10 3/mcL Normal 0.0-0.4 [facility] ([place]) Comment on above: Performed By: #### C BC, GFR, ADIFF, MDW, ANEU, BMP #### [address] [address] Eosinophils/100 WBC (Bld) 3.4 % Normal 0.0-7.0 [facility] ([place]) Comment on above: Performed By: #### C BC, GFR, ADIFF, MDW, ANEU, BMP #### [address] [address] Lymphocyte, Absolute 1.7 10 3/mcL Normal 0.8-3.9 [facility] ([place]) Comment on above: Performed By: #### C BC, GFR, ADIFF, MDW, ANEU, BMP #### [address] [address] Lymphocytes/100 WBC (Bld) 23.6 % Normal 10.0-50.0 [facility] ([place]) Comment on above: Performed By: #### C BC, GFR, ADIFF, MDW, ANEU, BMP #### [address] [address] Monocyte, Absolute 0.5 10 3/mcL Normal 0.2-1.0 [facility] ([place]) Comment on above: Performed By: #### C BC, GFR, ADIFF, MDW, ANEU, BMP #### [address] [address] Monocytes/100 WBC (Bld) 6.4 % Normal 1.7-13.0 A [facility] ([place]) Comment on above: Performed By: #### C BC, GFR, ADIFF, MDW, ANEU, BMP #### [address] [address] Neutrophils/100 WBC (Bld) 66.4 % Normal 37.0-80.0 [facility] ([place]) Comment on above: Performed By: #### C MAGDALENE, GFRRANDAL MDW, FABI, BMP #### [address] [address] .GFRon 04-03-2023 GFR 133 ml/min/1.73sqm Normal [facility] ([place]) Comment on above: Result Comment: GFR Population [...] By: #### C BC, GFR, SILVANA TEE, FABI, BMP #### [place] [address] [address] GFR Non- 110 ml/min/1.73sqm Normal [facility] ([place]) Comment on above: Result Comment: GFR Population [...] BC, GFR, ADTIMMY, W, ANEU, BMP #### [place] [address] .MDWon 04-03-2023 Monocyte Distribution Width 15.97 Normal 0.00-20.00 [facility] ([place]) Comment on above: Result Comment: For ED adult patients suspected of sepsis, MDW<=20.0 does not rule out sepsis or risk of sepsis Performed By: #### C BC, GFR, ADTIMMY, MDW, ANEU, BMP #### [place] [address] .NEUABSon 04-03-2023 Neutrophil, Absolute 4.9 10 3/mcL Normal 2.9-6.2 [facility] ([place]) Comment on above: Performed By: #### C BC, GFR, RANDAL, MDW, ANEU, BMP #### [place] [address] .Urinalysis Microscopic (AO) on 04-03-2023 UA Bacteria 1+ /hpf Abnormal [facility]ly [facility] ([place]) Comment on above: Performed By: #### C BC, GFR, ADTIMMY, MDW, ANEU, BMP #### [place] [address] UA RBC 0-5 Abnormal None Seen [facility] ([place]) Comment on above: Performed By: #### C BC, GFR, ADTIMMY, MDW, ANEU, BMP #### [place] [address] UA Squam Epithelial LOADED Abnormal None Seen [facility] ([place]) Comment on above: Performed By: #### C BC, GFR, ADIFF, MDW, ANEU, BMP #### [place] [address] UA WBC 5-10 Abnormal None Seen [facility] ([place]) Comment on above: Performed By: #### C BC, GFR, ADIFF, MDW, ANEU, BMP #### [place] [address] CBCon 04-03-2023 Erythrocyte distribution width (RBC) [Ratio] 15.3 % High 11.5-14.5 [facility] ([place]) Comment on above: Performed By: #### C BC, GFRRANDAL MDW, ANEU, BMP #### [place] [id number] Hematocrit (Bld) [Volume fraction] 40.3 % Normal 37.0-47.0 [facility] ([place]) Comment on above: Performed By: #### C BC, GFR, RANDAL, W, ANEU, BMP #### [place] [address] Hgb 13.4 G/dL Normal 12.0-16.0 [facility] ([place]) Comment on above: Performed By: #### C BC, GFR, RANDAL, W, ANEU, BMP #### [place] [id number] MCH (RBC) [Entitic mass] 25.4 pg Low 27.0-31.2 [facility] ([place] Comment on above: Performed By: #### C BC, GFR, RANDAL, W, ANEU, BMP #### [place] [address] MCHC 33.3 G/dL Normal 33.0-37.0 [facility] ([place]) Comment on above: Performed By: #### C BC, GFR, RANDAL, W, ANEU, BMP #### [place] [id number] MCV (RBC) [Entitic vol] 76.1 fL Low 80.0-94.0 A [facility]ly [facility] ([place]) Comment on above: Performed By: #### C BC, GFR, RANDAL, W, ANEU, BMP #### [place] [id number] Platelet 238 10 3/mcL Normal 130-400 [facility] ([place]) Comment on above: Performed By: #### C BC, GFR, RANDAL, W, ANEU, BMP #### [place] [id number] Platelet mean volume (Bld) [Entitic vol] 10.3 fL Normal 7.4-10.4 [facility] ([place]) Comment on above: Performed By: #### C BC, GFR, SILVANA TEE, ANEU, BMP #### [address] [address] RBC 5.29 10 6/mcL Normal 4.20-5.40 [facility] ([place]) Comment on above: Performed By: #### C BC, GFR, RANDAL, SILVANA, ANEU, BMP #### [address] [address] WBC 7.4 10 3/mcL Normal 4.6-10.8 [facility] ([place]) Comment on above: Performed By: #### C BC, GFR, RANDAL, SILVANA, ANEU, BMP #### [address] [address] CMPon 04-03-2023 Albumin Level 3.9 G/dL Normal 3.5-5.0 [facility] ([place] Comment on above: Performed By: #### C MAGDALENE, GFR, SILVANA TEE, ANEU, BMP #### [address] [address] Albumin/Globulin [Mass ratio] 1.0 {ratio} Low 1.1-2.5 [facility] ([place]) Comment on above: Performed By: #### C BC, GFR, RANDAL, SILVANA, ANEU, BMP #### [address] [address] ALP [Catalytic activity/Vol] 109 U/L Normal 40-135 [facility] ([place] Comment on above: Performed By: #### C BC, GFR, RANDAL, SILVANA, ANEU, BMP #### [address] [address] ALT [Catalytic activity/Vol] 63 U/L High 14-59 [facility] ([place]) Comment on above: Performed By: #### C BC, GFR, RANDAL, SILVANA, ANEU, BMP #### [address] [address] AST [Catalytic activity/Vol] 42 U/L High 10-40 [facility] ([place]) Comment on above: Performed By: #### C BC, GFR, SILVANA TEE, ANEU, BMP #### [address] [address] Bili Total 0.7 mg/dL Normal 0.2-1.0 [facility] ([place]) Comment on above: Result Comment: Use of this assay is not recommended for patients undergoing treatment with eltrombopag due to the potential for falsely elevated results. Performed By: #### C MAGDALENE, GFR, SILVANA TEE, ANEU, BMP #### [address] [address] BUN/Creatinine Ratio 20 ratio Normal 7-27 [facility] ([place]) Comment on above: Performed By: #### C BC, GFR, SILVANA TEE, ANEU, BMP #### [address] [address] Calcium [Mass/Vol] 9.0 mg/dL Normal 8.4-10.2 [facility] ([place]) Comment on above: Performed By: #### C BC, GFRRANDAL MDW, ANEU, BMP #### [address] [address] Chloride [Moles/Vol] 103 mmol/L Normal 98-107 [facility] ([place]) Comment on above: Performed By: #### C BC, GFR, SILVANA TEE, ANEU, BMP #### [address] [address] CO2 [Moles/Vol] 27 mmol/L Normal 22-29 [facility] ([place]) Comment on above: Performed By: #### C BC, GFR, SILVANA TEE, ANEU, BMP #### [address] [address] Creatinine [Mass/Vol] 0.66 mg/dL Normal 0.55-1.02 [facility] ([place]) Comment on above: Performed By: #### C BC, GFR, ADIFF, MDW, ANEU, BMP #### [address] [address] Electrolyte Balance 8.0 mEq/L Normal 4.0-15.0 [facility] ([place]) Comment on above: Performed By: #### C BC, GFR, ADIFF, MDW, ANEU, BMP #### [address] [address] Globulin 4.0 G/dL Normal [facility] ([place] Comment on above: Performed By: #### C BC, GFR, ADIFF, MDW, ANEU, BMP #### [address] [address] Glucose [Mass/Vol] 83 mg/dL Normal 70-105 [facility] ([place]) Comment on above: Performed By: #### C BC, GFR, ADTIMMY, MDW, ANEU, BMP #### [address] [address] Potassium [Moles/Vol] 4.2 mmol/L Normal 3.5-5.1 [facility] ([place]) Comment on above: Performed By: #### C BC, GFR, RANDAL, MDW, ANEU, BMP #### [address] [address] Sodium [Moles/Vol] 138 mmol/L Normal 136-145 [facility] ([place]) Comment on above: Performed By: #### C BC, GFR, ADIFF, MDW, ANEU, BMP #### [address] [address] Total Protein 7.9 G/dL Normal 6.4-8.2 [facility] ([place]) Comment on above: Performed By: #### C BC, GFR, ADIFF, MDW, ANEU, BMP #### [address] [address] Urea nitrogen [Mass/Vol] 13 mg/dL Normal 7-18 [facility] ([place] Comment on above: Performed By: #### C BC, GFR, ADIFF, MDW, ANEU, BMP #### [place] [address] [place], [place] [address] CT ABD/PELVIS W/ IV CONTRAST ONLYon 04-03-2023 [...] 04/03/2023 5:42:34 PM Ordering Provider: BLAYNE Renae [facility] ([place]) LABORATORYOrdered By: SYSTEM SYSTEM on 04-03-2023 Albumin [...] MCH (RBC) [Entitic mass] 25.4 pg Low 27. 0 - 31.2 pg AO Workflow SS MCHC [...] [Mass/Vol] 13 mg/dL Normal 7 - 18 mg/d L AO ADM SS Urea nitrogen/Creatinine [Mass ratio] [...] 04-03-2023 Lipase Level 38 U/L Normal 16-77 [facility] ([place]) Comment on above: Performed By: #### C NGOZI DEL CASTILLO ADIFF, MDW, ANEU, BMP #### [address] [address] PREGUon 04-03-2023 HCG ( test) Ql (U) Negative Normal [facility] ([place] Comment on above: Performed By: #### C NGOZI DEL CASTILLO ADIFF, MDW, ANEU, BMP #### [place] [id number] [place], [place] [address] test (u) int Not detected Invalid Interpretation Code [facility] ([place]) Comment on above: Performed By: #### C BC, GFR, ADTIMMY, MDW, ANEU, BMP #### [address] [address] UAon 04-03-2023 Color (U) Yellow Normal [facility] ([place] Comment on above: Performed By: #### C BC, GFR, ADIFF, MDW, ANEU, BMP #### [place] [phone] Glucose (U) [Mass/Vol] Negative Normal Negative [facility] ([place]) Comment on above: Performed By: #### C BC, GFR, ADTIMMY, MDW, ANEU, BMP #### [address] [address] Ketones Ql (U) Negative Normal Negative [facility] ([place] Comment on above: Performed By: #### C BC, GFR, ADTIMMY, MDW, ANEU, BMP #### [place] [address] UA Appear Cloudy Abnormal Clear [facility] ([place] Comment on above: Performed By: #### C BC, GFR, ADTIMMY, MDW, ANEU, BMP #### [address] [address] UA Blood Negative Normal Negative [facility] ([place] Comment on above: Performed By: #### C BC, GFR, ADIFF, MDW, ANEU, BMP #### [address] [address] UA Leuk Est Small Abnormal Negative [facility] ([place] Comment on above: Performed By: #### C BC, GFR, ADIFF, MDW, ANEU, BMP #### [address] [address] UA Nitrite Negative Normal Negative [facility] ([place] Comment on above: Performed By: #### C BC, GFR, ADIFF, MDW, ANEU, BMP #### [address] [address] UA pH 6.0 Normal 5.0 - 8.0 [facility] ([place]) Comment on above: Performed By: #### C BC, GFR, ADTIMYM, MDW, ANEU, BMP #### [address] [address] UA Protein Negative Normal Negative [facility] ([place] Comment on above: Performed By: #### C BC, GFR, ADIFF, MDW, ANEU, BMP #### [address] [address] UA Spec Grav >=1.030 Abnormal 1.015-1.025 [facility] ([place] Comment on above: Performed By: #### C BC, GFR, ADIFF, MDW, ANEU, BMP #### [address] [address] UA Specimen Type Clean Catch Normal [facility] ([place] Comment on above: Performed By: #### C BC, GFR, ADIFF, MDW, ANEU, BMP #### [place] [id number] UA Urobilinogen 0.2 E.U./dL Normal 0.2-1.0 [facility] ([place] Comment on above: Performed By: #### C BC, GFR, ADTIMMY, MDW, ANEU, BMP #### [address] [address] Urobilinogen (U) [Mass/Vol] Negative Normal Negative [facility] ([place]) Comment on above: Performed By: #### C BC, GFR, ADTIMMY, MDW, ANEU, BMP #### [address] [address] US ABDOMEN LIMITEDon 024 US ABDOMEN LIMITED [...] 04/03/2023 4:32:24 PM Ordering Provider: BLAYNE DORAN Formerly [facility] ([place]) .GFRon 02-24-2023 GFR 127 ml/min/1.73sqm Normal [facility] ([place]) Comment on above: Result Comment: GFR Population [...] B MP, A1C, TSH, GFR, LIPID #### [address] [address] #### INSLN #### [address] [address] GFR Non- 105 ml/min/1.73sqm Normal [facility] ([place]) Comment on above: Result Comment: GFR Population [...] B MP, A1C, TSH, GFR, LIPID #### [address] [address] #### INSLN #### [address] [address] A1Con 02-24-2023 HbA1c (Bld) [Mass fraction] 5.3 % Normal 4.3-6.4 [facility] ([place] Comment on above: Performed By: #### C BC, GFR, RANDAL, W, ANEU, BMP #### [address] [address] BMPon 02-24-2023 BUN/Creatinine Ratio 14 ratio Normal 7-27 [facility] ([place]) Comment on above: Performed By: #### B MP, A1C, TSH, GFR, LIPID #### [place] [address] #### INSLN #### [address] [address] Calcium [Mass/Vol] 9.5 mg/dL Normal 8.4-10.2 [facility] ([place]) Comment on above: Performed By: #### B MP, A1C, TSH, GFR, LIPID #### [address] [address] #### INSLN #### [address] [address] Chloride [Moles/Vol] 105 mmol/L Normal 98-107 [facility] ([place]) Comment on above: Performed By: #### B MP, A1C, TSH, GFR, LIPID #### [address] [address] #### INSLN #### [address] [address] CO2 [Moles/Vol] 28 mmol/L Normal 22-29 [facility] ([place]) Comment on above: Performed By: #### B MP, A1C, TSH, GFR, LIPID #### [address] [address] #### INSLN #### [address] [address] Creatinine [Mass/Vol] 0.69 mg/dL Normal 0.55-1.02 [facility] ([place]) Comment on above: Performed By: #### B MP, A1C, TSH, GFR, LIPID #### [address] [address] #### INSLN #### [address] [address] Electrolyte Balance 11.0 mEq/L Normal 4.0-15.0 [facility] ([place]) Comment on above: Performed By: #### B MP, A1C, TSH, GFR, LIPID #### [place] [address] #### INSLN #### [address] [address] Glucose [Mass/Vol] 102 mg/dL Normal 70-105 [facility] ([place] Comment on above: Performed By: #### B MP, A1C, TSH, GFR, LIPID #### [address] [address] #### INSLN #### [address] [address] Potassium [Moles/Vol] 4.4 mmol/L Normal 3.5-5.1 [facility] ([place]) Comment on above: Performed By: #### B MP, A1C, TSH, GFR, LIPID #### [address] [address] #### INSLN #### [address] [address] Sodium [Moles/Vol] 144 mmol/L Normal 136-145 [facility] ([place]) Comment on above: Performed By: #### B MP, A1C, TSH, GFR, LIPID #### [address] [address] #### INSLN #### [address] [address] Urea nitrogen [Mass/Vol] 10 mg/dL Normal 7-18 [facility] ([place]) Comment on above: Performed By: #### B MP, A1C, TSH, GFR, LIPID #### [address] [address] #### INSLN #### [address] [address] INSLNon 02-24-2023 Insulin 23.77 munit/L Normal 2.60-37.60 [facility] ([place]) Comment on above: Performed By: #### C BC, GFR, ADIFF, MDW, ANEU, BMP #### [address] [address] LABORATORYOrdered By: SYSTEM SYSTEM on 02-24-2023 Calcium [...] [Mass/Vol] 10 mg/dL Normal 7 - 18 mg/d L AO ADM SS Urea nitrogen/Creatinine [Mass ratio] 14 ratio Normal 7 - 27 ratio AO ADM SS LABORATORYOrdered By: Yi Land on 02-24-2023 Cholesterol [Mass/Vol] 249 mg/dL High 0 - 2 00 mg/dL AO ADM SS Comment on above: [...] 02-24-2023 Cholesterol [Mass/Vol] 249 mg/dL High 0-200 [facility] ([place]) Comment on above: Result Comment: Chol esterol Reference Interval: Less than 200 Desirable 200-239 Borderline high risk 240 and above High risk Performed By: #### B MP, A1C, TSH, GFR, LIPID #### [place] [address] #### INSLN #### [address] [address] Cholesterol in HDL [Mass/Vol] 47 mg/dL Normal 40-60 [facility] ([place] Comment on above: Performed By: #### B MP, A1C, TSH, GFR, LIPID #### [address] [address] #### INSLN #### [address] [address] Cholesterol in LDL [Mass/Vol] 159 mg/dL High 0-130 [facility] ([place] Comment on above: Performed By: #### B MP, A1C, TSH, GFR, LIPID #### [place] [address] #### INSLN #### [address] [address] Triglyceride [Mass/Vol] 217 mg/dL High 0-150 [facility] ([place]) Comment on above: Result Comment: Trig lyceride Reference Interval: Less than 150 Normal 150-199 Borderline high risk 200-499 High risk 500 or higher Very high risk Performed By: #### B MP, A1C, TSH, GFR, LIPID #### [place] [address] #### INSLN #### [address] [address] TSHon 02-24-2023 TSH Qn 1.05 m[IU]/L Normal 0.36-3.74 [facility] ([place]) Comment on above: Performed By: #### B MP, A1C, TSH, GFR, LIPID #### [address] [address] #### INSLN #### [place] [address] .Auto Diffon 02-22-2023 Basophil, Absolute 0.1 10 3/mcL Normal 0.0-0.2 [facility] ([place]) Comment on above: Performed By: #### C BC, GFR, ADTIMMY, MDW, ANEU, BMP #### [address] [address] Basophils/100 WBC (Bld) 0.7 % Normal 0.0-2.5 A [facility] ([place]) Comment on above: Performed By: #### C BC, GFR, ADIFF, MDW, ANEU, BMP #### [address] [address] Eosinophil, Absolute 0.1 10 3/mcL Normal 0.0-0.4 [facility] ([place]) Comment on above: Performed By: #### C BC, GFR, ADIFF, MDW, ANEU, BMP #### [address] [address] Eosinophils/100 WBC (Bld) 1.6 % Normal 0.0-7.0 [facility] ([place]) Comment on above: Performed By: #### C BC, GFR, ADIFF, MDW, ANEU, BMP #### [address] [address] Lymphocyte, Absolute 2.1 10 3/mcL Normal 0.8-3.9 [facility] ([place]) Comment on above: Performed By: #### C BC, GFR, ADIFF, MDW, ANEU, BMP #### [address] [address] Lymphocytes/100 WBC (Bld) 27.1 % Normal 10.0-50.0 [facility] ([place] Comment on above: Performed By: #### C BC, GFR, SILVANA TEE, ANEU, BMP #### [address] [address] Monocyte, Absolute 0.4 10 3/mcL Normal 0.2-1.0 [facility] ([place]) Comment on above: Performed By: #### C BC, GFR, ADSILVANA WARNER, ANEU, BMP #### [address] [address] Monocytes/100 WBC (Bld) 4.9 % Normal 1.7-13.0 [facility] ([place]) Comment on above: Performed By: #### C BC, GFR, SILVANA TEE, ANEU, BMP #### [address] [address] Neutrophils/100 WBC (Bld) 65.7 % Normal 37.0-80.0 [facility] ([place] Comment on above: Performed By: #### C BC, GFR, SILVANA TEE, ANEU, BMP #### [address] [address] .GFRon 02-22-2023 GFR 117 ml/min/1.73sqm Normal [facility] ([place]) Comment on above: Result Comment: GFR Population [...] BC, GFR, ADTIMMY, W, ANEU, BMP #### [address] [address] GFR Non- 96 ml/min/1.73sqm Normal [facility] ([place]) Comment on above: Result Comment: GFR Population [...] BC, GFR, ADIFF, MDW, ANEU, BMP #### [address] [address] .MDWon 02-22-2023 Monocyte Distribution Width 15.51 Normal 0.00-20.00 [facility] ([place]) Comment on above: Result Comment: For ED adult patients suspected of sepsis, MDW<=20.0 does not rule out sepsis or risk of sepsis Performed By: #### C BC, GFR, ADIFF, MDW, ANEU, BMP #### [address] [address] .NEUABSon 02-22-2023 Neutrophil, Absolute 5.1 10 3/mcL Normal 2.9-6.2 [facility] ([place]) Comment on above: Performed By: #### C BC, GFR, ADIFF, MDW, ANEU, BMP #### [address] [address] .Urinalysis Microscopic (AO) on 02-22-2023 UA Bacteria 2+ /hpf Abnormal [facility] ([place] Comment on above: Performed By: #### C BC, GFR, ADIFF, MDW, ANEU, BMP #### [address] [address] UA RBC None Seen Normal None Seen [facility] ([place] Comment on above: Performed By: #### C BC, GFR, SILVANA TEE, ANEU, BMP #### [address] [address] UA Squam Epithelial 0-5 Abnormal None Seen [facility] ([place]) Comment on above: Performed By: #### C BC, GFR, SILVANA TEE, ANEU, BMP #### [address] [address] UA WBC 5-10 Abnormal None Seen [facility] ([place] Comment on above: Performed By: #### C BC, GFR, SILVANA TEE, ANEU, BMP #### [address] [address] BMPon 02-22-2023 BUN/Creatinine Ratio 12 ratio Normal 7-27 [facility] ([place]) Comment on above: Performed By: #### C BC, GFR, SILVANA TEE, ANEU, BMP #### [address] [address] Calcium [Mass/Vol] 9.6 mg/dL Normal 8.4-10.2 [facility] ([place]) Comment on above: Performed By: #### C BC, GFR, SILVANA TEE, ANEU, BMP #### [address] [address] Chloride [Moles/Vol] 102 mmol/L Normal 98-107 [facility] ([place]) Comment on above: Performed By: #### C BC, GFR, SILVANA TEE, ANEU, BMP #### [address] [address] CO2 [Moles/Vol] 28 mmol/L Normal 22-29 [facility] ([place]) Comment on above: Performed By: #### C BC, GFR, SILVANA TEE, ANEU, BMP #### [address] [address] Creatinine [Mass/Vol] 0.74 mg/dL Normal 0.55-1.02 [facility] ([place]) Comment on above: Performed By: #### C BC, GFR, ADIFF, MDW, ANEU, BMP #### [address] [address] Electrolyte Balance 9.0 mEq/L Normal 4.0-15.0 [facility] ([place]) Comment on above: Performed By: #### C BC, GFR, ADIFF, MDW, ANEU, BMP #### [address] [address] Glucose [Mass/Vol] 85 mg/dL Normal 70-105 [facility] ([place]) Comment on above: Performed By: #### C BC, GFR, ADTIMMY, MDW, ANEU, BMP #### [address] [address] Potassium [Moles/Vol] 3.7 mmol/L Normal 3.5-5.1 [facility] ([place]) Comment on above: Performed By: #### C BC, GFR, ADTIMMY, MDW, ANEU, BMP #### [address] [address] Sodium [Moles/Vol] 139 mmol/L Normal 136-145 [facility] ([place]) Comment on above: Performed By: #### C BC, GFR, ADIFF, MDW, ANEU, BMP #### [address] [address] Urea nitrogen [Mass/Vol] 9 mg/dL Normal 7-18 [facility] ([place]) Comment on above: Performed By: #### C BC, GFR, ADIFF, MDW, ANEU, BMP #### [address] [address] CBCon 02-22-2023 Erythrocyte distribution width (RBC) [Ratio] 15.1 % High 11.5-14.5 [facility] ([place]) Comment on above: Performed By: #### C BC, GFR, ADIFF, MDW, ANEU, BMP #### [address] [address] Hematocrit (Bld) [Volume fraction] 41.8 % Normal 37.0-47.0 [facility] ([place] Comment on above: Performed By: #### C BC, GFR, RANDAL, W, ANEU, BMP #### [address] [address] Hgb 13.9 G/dL Normal 12.0-16.0 [facility] ([place]) Comment on above: Performed By: #### C BC, GFR, RANDAL, W, ANEU, BMP #### [address] [address] MCH (RBC) [Entitic mass] 24.9 pg Low 27.0-31.2 [facility] ([place]) Comment on above: Performed By: #### C BC, GFR, RANDAL, W, ANEU, BMP #### [address] [address] MCHC 33.3 G/dL Normal 33.0-37.0 [facility] ([place]) Comment on above: Performed By: #### C BC, GFR, ADTIMMY, MDW, ANEU, BMP #### [address] [address] MCV (RBC) [Entitic vol] 74.8 fL Low 80.0-94.0 A [facility] ([place]) Comment on above: Performed By: #### C BC, GFR, ADTIMMY, MDW, ANEU, BMP #### [address] [address] Platelet 244 10 3/mcL Normal 130-400 [facility] ([place]) Comment on above: Performed By: #### C BC, GFR, ADTIMMY, MDW, ANEU, BMP #### [address] [address] Platelet mean volume (Bld) [Entitic vol] 9.5 fL Normal 7.4-10.4 [facility] ([place]) Comment on above: Performed By: #### C BC, GFR, ADIFF, MDW, ANEU, BMP #### [address] [address] RBC 5.59 10 6/mcL High 4.20-5.40 [facility] ([place]) Comment on above: Performed By: #### C NGOZI DEL CASTILLO ADIFF, MDW, FABI BMP #### [place]aly[place] [address] [address] WBC 7.7 10 3/mcL Normal 4.6-10.8 [facility] ([place]) Comment on above: Performed By: #### C NGOZI DEL CASTILLO ADIFF, MDW, FABI, BMP #### Kaly[place] [address] [address] Gel ABOon 02-22-2023 ABO/Rh Interp Positive Invalid Interpretation Code [facility] ([place] Comment on above: Performed By: #### C NGOZI DEL CASTILLO ADIFF, MDW, FABI, BMP #### [address] [address] HCGQon 02-22-2023 hCG, quantitative <1.0 Normal [facility] ([place]) Comment on above: Result Comment: HCG Levels [...] - 100,000 mIU/mL Performed By: #### C NGOZI DEL CASTILLO ADIFF, MDW, ANEU, BMP #### [place] [address] [place], [place] [address] LABORATORYOrdered By: Suri Alexander on 02-22-2023 ABO/Rh [...] MCH (RBC) [Entitic mass] 24.9 pg Low 27. 0 - 31.2 pg AO Workflow SS MCHC [...] [Mass/Vol] 9 mg/dL Normal 7 - 18 mg/d L AO ADM SS Urea nitrogen/Creatinine [Mass ratio] 12 ratio Normal 7 - 27 ratio AO ADM SS WBC (Bld) [#/Vol] 7.7 103/mcL Normal 4.6 - 10.8 10^3/mcL AO Workflow SS UAon 02-22-2023 Color (U) Yellow Normal [facility] ([place]) Comment on above: Performed By: #### C NGOZI DEL CASTILLO ADIFF, MDW, FABI, BMP #### [address] [address] Glucose (U) [Mass/Vol] Negative Normal Negative [facility] ([place]) Comment on above: Performed By: #### C NGOZI DEL CASTILLO ADIFF, MDW, ANEU, BMP #### [address] [address] Ketones Ql (U) Negative Normal Negative [facility] ([place]) Comment on above: Performed By: #### C BC, GFR, SILVANA TEE, ANEU, BMP #### [address] [address] UA Appear Slightly Cloudy Abnormal Clear [facility] ([place]) Comment on above: Performed By: #### C BC, GFR, SILVANA TEE, ANEU, BMP #### [address] [address] UA Blood Negative Normal Negative [facility] ([place]) Comment on above: Performed By: #### C MAGDALENE, GFRRANDAL MDW, ANEU, BMP #### [address] [address] UA Leuk Est Trace Abnormal Negative [facility] ([place]) Comment on above: Performed By: #### C BC, GFR, SILVANA TEE, ANEU, BMP #### [address] [address] UA Nitrite Negative Normal Negative [facility] ([place]) Comment on above: Performed By: #### C BC, GFRRANDAL MDW, ANEU, BMP #### [address] [address] UA pH 5.5 Normal 5.0 - 8.0 [facility] ([place]) Comment on above: Performed By: #### C BC, GFR, SILVANA TEE, ANEU, BMP #### [address] [address] UA Protein Negative Normal Negative [facility] ([place]) Comment on above: Performed By: #### C BC, GFRRANDAL MDW, ANEU, BMP #### [address] [address] UA Spec Grav >=1.030 Abnormal 1.015-1.025 [facility] ([place]) Comment on above: Performed By: #### C BC, GFRRANDAL MDW, ANEU, BMP #### [id number] [place], [place] [address] UA Specimen Type Clean Catch Normal [facility] ([place]) Comment on above: Performed By: #### C MAGDALENE, RANDAL MELVIN MDW, ANEU, BMP #### [id number] [place], [place] [address] UA Urobilinogen 0.2 E.U./dL Normal 0.2-1.0 [facility] ([place]) Comment on above: Performed By: #### C MAGDALENE, RANDAL MELVIN MDW, ANEU, BMP #### [id number] [place], [place] [address] Urobilinogen (U) [Mass/Vol] Negative Normal Negative [facility] ([place]) Comment on above: Performed By: #### C MAGDALENE, RANDAL MELVIN MDW, ANEU, BMP #### [id number] [place], [place] [address] Absolute lymphocyte counton 02-08-2022 Lymphocytes Auto (Unsp spec) [#/Vol] 1.60 10*3/uL 0.83-4.51 [facility] Work Phone: Basophil percentageon 2021 Basophils/100 WBC (Bld) 0.3 % 0-1 [facility] Work Phone: Bilirubin [Mass/Vol] 0.40 mg/dL 0.20-1.00 [facility] Work Phone: Comment on above: For patients on eltr ombopag therapy, use of [employer] [place] TBIL is not recommended. Chloride [Moles/Vol] 104 mmol/L 98-107 [facility] Work Phone: Eosinophils/100 WBC (Bld) 4.0 % 0-5 [facility] Work Phone: Glucose [Mass/Vol] 81 mg/dL 74-106 [facility] Work Phone: Neutrophils (Bld) [#/Vol] 3.6 10*3/uL 2.0-7.7 [facility] Work Phone: Neutrophils/100 WBC (Bld) 61.8 % 47-70 [facility] Work Phone: [phone] Potassium [Moles/Vol] 3.9 mmol/L 3.5-5.[address] [facility] Work Phone: Protein [Mass/Vol] 6.1 g/dL 6.4-8.2 [facility] Work Phone: Sodium [Moles/Vol] 138 mmol/L 136-145 [facility] Work Phone: WBC (Bld) [#/Vol] 5.8 10*3/uL 4.4-11.0 [facility] Work Phone: Blood erythrocytes count (nu mber/volume)on 02-08-2022 RBC (Bld) [#/Vol] 3.48 10*6/uL 4.2-5.4 [facility] Work Phone: Blood hemoglobin measurement (mass/volume)on 02-08-2022 Hemoglobin (Bld) [Mass/Vol] 8.6 g/dL 12.0-15.0 [facility] Work Phone: Blood lymphocytes/100 leukoc yteson 02-08-2022 Lymphocytes/100 WBC (Bld) 27.6 % 19-41 [facility] Work Phone: Blood monocytes/100 leukocyt eson 02-08-2022 Monocytes/100 WBC (Bld) 6.0 % 0-10 [facility] Work Phone: Blood platelet mean volumeon 02-08-2022 Platelet mean volume (Bld) [Entitic vol] 11.5 fL 6.2-12.0 [facility] Work Phone: [phone] Determination of erythrocyte mean corpuscular volume (MCV)on 02-08-2022 MCV (RBC) [Entitic vol] 79.3 fL 81-99 [facility] Work Phone: Hematocrit Auto (Bld) [Volum e fraction]on 02-08-2022 Hematocrit (Bld) [Volume fraction] 27.6 % 37-47 [facility] Work Phone: Laboratory - Chemistry and C hemistry - challengeon 02-08-2022 ALP [Catalytic activity/Vol] 110 U/L 45-117 [facility] Work Phone: ALT [Catalytic activity/Vol] 16 U/L 13-56 [facility] Work Phone: CO2 [Moles/Vol] 29.0 mmol/L 21.0-32.0 [facility] Work Phone: Globulin (S) [Mass/Vol] 4.1 g/dL 2.2-4.2 [facility] Work Phone: Urea nitrogen/Creatinine [Mass ratio] 14.3 mg/mg 10-20 [facility] Work Phone: Laboratory - Hematology and Cell countson 02-08-2022 Erythrocyte distribution width (RBC) [Entitic vol] 43.5 fL 35.1-43.9 [facility] Work Phone: Erythrocyte distribution width (RBC) [Ratio] 15.1 % 11.6-14.6 [facility] Work Phone: Immature granulocytes/100 WBC (Bld) 0.300 % 0.0-0.9 [facility] Work Phone: Comment on above: IG% - Immature Granu locytes (promyelocytes, myelocytes and metamyelocytes) > 1% indicates that a LEFT SHIFT is Present. MCH (RBC) [Entitic mass] 24.7 pg 27.0-32.0 [facility] Work Phone: Nucleated RBC/100 WBC (Bld) [Ratio] 0 % 0-5 [facility] Work Phone: MCHC Auto (RBC) [Mass/Vol]on 02-08-2022 MCHC (RBC) [Mass/Vol] 31.2 g/dL 32-36 [facility] Work Phone: No Panel Informationon 02-08 Estimated Creatinine Clearance Calc 135.06 ml/min [facility] Work Phone: Estimated GFR (MDRD) Amer 150 mL/min >60 [facility] Work Phone: Comment on above: GFR Calc Estimated GFR (MDRD) Non-Af Amer 124 mL/min >60 [facility] Work Phone: Comment on above: Non- GFR Calc Platelets bldon 02-08-2022 Platelets (Bld) [#/Vol] 175 10*3/uL 150-450 [facility] Work Phone: Serum or plasma albumin benita urement (mass/volume)on 02-08-2022 Albumin [Mass/Vol] 2.0 g/dL 3.2-5.0 [facility] Work Phone: Serum or plasma albumin/glob ulin mass ratioon 02-08-2022 Albumin/Globulin [Mass ratio] 0.5 {ratio} 0.9-2.4 [facility] Work Phone: Serum or plasma calcium benita urement (mass/volume)on 02-08-2022 Calcium [Mass/Vol] 8.7 mg/dL 8.5-10.1 [facility] Work Phone: Serum or plasma creatinine m easurement (mass/volume)on 02-08-2022 Creatinine [Mass/Vol] 0.63 mg/dL 0.55-1.[address] [facility] Work Phone: Comment on above: The validity of the calculated GFR & GFRAA in patients over 70 years has not been determined. Clinical correlation is essential. Serum or plasma urea nitroge n measurement (mass/volume)on 02-08-2022 Urea nitrogen [Mass/Vol] 9 mg/dL 7-18 [facility] Work Phone: Thin prep Papanicolaou smear with manual screeningon 02-08-2022 Thin prep Papanicolaou smear with manual screening 24 U/L 15-37 [facility] Work Phone: Thin prep Papanicolaou smear with manual screening 5 5-15 [facility] Work Phone: Thin prep Papanicolaou smear with manual screening 183 U/L 84-246 [facility] Work Phone: Laboratory - Chemistry and C hemistry - challengeon 02-05-2022 Magnesium [Mass/Vol] 5.4 mg/dL 1.6-2.6 [facility] Work Phone: Comment on above: Critical Result(s) C alled at: 06:16:01 02/05/2022 by: Mirela Tejeda to [facility]. Results read back by same. Basophil percentageon 2021 Basophil percentage 25-50 SEEN /hpf 0-5 [facility] Work Phone: Bilirubin Test strip Ql (U)o n 02-04-2022 Bilirubin Ql (U) Negative Negative [facility] Work Phone: Ketones Test strip Ql (U)on 02-04-2022 Ketones Ql (U) 5 mg/dl Negative [facility] Work Phone: Mucus LM Ql (Urine sed)on Mucus Ql (Urine sed) 0 SEEN /hpf [facility] Work Phone: Nitrite Test strip Ql (U)on 02-04-2022 Nitrite Ql (U) Negative Negative [facility] Work Phone: No Panel Informationon 02-04 Vaginal Amniotic Fluid Detection Negative Negative [facility] Work Phone: Comment on above: Amniotic fluid not p resent indicates No Rupture of FetalMembranes at time of specimen collection. Protein Test strip Ql (U)on 02-04-2022 Protein Ql (U) 100 mg/dl Negative [facility] Work Phone: Serum or plasma uric acid me asurement (mass/volume)on 02-04-2022 Urate [Mass/Vol] 7.5 mg/dL 2.6-6.0 [facility] Work Phone: Comment on above: The drugs N-Acetylcy steine and Metamizole may falsely depress this assay. Squamous epithelial cells de tection in urine sediment by light microscopyon 02-04-2022 Epithelial cells.squamous LM Ql (Urine sed) 50-100 SEEN /hpf 5-10 [facility] Work Phone: Urine blood detectionon 01-19 RBC Ql (U) 10 /ul Negative [facility] Work Phone: RBC Ql (U) 0 SEEN /hpf 0-5 [facility] Work Phone: Urine clarityon 02-04-2022 Clarity (U) Clear Clear [facility] Work Phone: Urine color determinationon 02-04-2022 Color (U) Yellow Yellow [facility] Work Phone: Urine creatinine measurement (mass/volume)on 02-04-2022 Creatinine (U) [Mass/Vol] 150.00 mg/dL NO RANGE EST. [facility] Work Phone: Urine glucose detectionon Glucose Ql (U) Normal mg/dl Normal [facility] Work Phone: Urine leukocyte esterase det ection by dipstickon 02-04-2022 Leukocyte esterase Test strip Ql (U) 500 /ul Negative [facility] Work Phone: Urine pHon 02-04-2022 pH (U) 7.0 [pH] 5.0 - 8.0 [facility] Work Phone: Urine protein measurement (m ass/volume)on 02-04-2022 Protein (U) [Mass/Vol] 135.5 mg/dL 0.0-11.8 [facility] Work Phone: Urine protein/creatinine mas s ratioon 02-04-2022 Protein/Creatinine (U) [Mass ratio] 903 mg/g CRE 0-200 [facility] Work Phone: Urine sediment bacteria coun t by microscopy (number/high power field)on 02-04-2022 Bacteria LM.HPF (Urine sed) [#/Area] 0 /[HPF] None Seen [facility] Work Phone: Urine specific gravity measu rementon 02-04-2022 Specific gravity (U) [Rel density] 1.010 1.002-1.030 [facility] Work Phone: Urobilinogen Auto test strip Ql (U)on 02-04-2022 Urobilinogen Ql (U) Normal mg/dl Normal [facility] Work Phone: Absolute lymphocyte counton 02-01-2022 Lymphocytes Auto (Unsp spec) [#/Vol] 1.11 10*3/uL 0.83-4.51 [facility] Work Phone: Basophil percentageon 2021 Basophils/100 WBC (Bld) 0.4 % 0-1 [facility] Work Phone: Bilirubin [Mass/Vol] 0.40 mg/dL 0.20-1.00 [facility] Work Phone: Comment on above: For patients on eltr ombopag therapy, use of [employer] [place] TBIL is not recommended. Chloride [Moles/Vol] 107 mmol/L 98-107 [facility] Work Phone: [phone] Eosinophils/100 WBC (Bld) 0.4 % 0-5 [facility] Work Phone: Glucose [Mass/Vol] 81 mg/dL 74-106 [facility] Work Phone: Neutrophils (Bld) [#/Vol] 3.1 10*3/uL 2.0-7.7 [facility] Work Phone: Neutrophils/100 WBC (Bld) 67.3 % 47-70 [facility] Work Phone: Potassium [Moles/Vol] 3.8 mmol/L 3.5-5.[address] [facility] Work Phone: Protein [Mass/Vol] 6.1 g/dL 6.4-8.2 [facility] Work Phone: Sodium [Moles/Vol] 139 mmol/L 136-145 [facility] Work Phone: WBC (Bld) [#/Vol] 4.6 10*3/uL 4.4-11.0 [facility] Work Phone: Blood erythrocytes count (nu mber/volume)on 02-01-2022 RBC (Bld) [#/Vol] 3.92 10*6/uL 4.2-5.4 [facility] Work Phone: Blood hemoglobin measurement (mass/volume)on 02-01-2022 Hemoglobin (Bld) [Mass/Vol] 9.8 g/dL 12.0-15.0 [facility] Work Phone: Blood lymphocytes/100 leukoc yteson 02-01-2022 Lymphocytes/100 WBC (Bld) 24.0 % 19-41 [facility] Work Phone: Blood monocytes/100 leukocyt eson 02-01-2022 Monocytes/100 WBC (Bld) 7.3 % 0-10 [facility] Work Phone: Blood platelet mean volumeon 02-01-2022 Platelet mean volume (Bld) [Entitic vol] 12.2 fL 6.2-12.0 [facility] Work Phone: Determination of erythrocyte mean corpuscular volume (MCV)on 02-01-2022 MCV (RBC) [Entitic vol] 78.1 fL 81-99 [facility] Work Phone: Hematocrit Auto (Bld) [Volum e fraction]on 02-01-2022 Hematocrit (Bld) [Volume fraction] 30.6 % 37-47 [facility] Work Phone: Laboratory - Chemistry and C hemistry - challengeon 02-01-2022 ALP [Catalytic activity/Vol] 158 U/L 45-117 [facility] Work Phone: ALT [Catalytic activity/Vol] 35 U/L 13-56 [facility] Work Phone: CO2 [Moles/Vol] 26.0 mmol/L 21.0-32.0 [facility] Work Phone: Globulin (S) [Mass/Vol] 4.1 g/dL 2.2-4.2 [facility] Work Phone: Urea nitrogen/Creatinine [Mass ratio] 8.6 mg/mg 10-20 [facility] Work Phone: Laboratory - Hematology and Cell countson 02-01-2022 Erythrocyte distribution width (RBC) [Entitic vol] 38.8 fL 35.1-43.9 [facility] Work Phone: Erythrocyte distribution width (RBC) [Ratio] 13.9 % 11.6-14.6 [facility] Work Phone: Immature granulocytes/100 WBC (Bld) 0.600 % 0.0-0.9 [facility] Work Phone: Comment on above: IG% - Immature Granu locytes (promyelocytes, myelocytes and metamyelocytes) > 1% indicates that a LEFT SHIFT is Present. MCH (RBC) [Entitic mass] 25.0 pg 27.0-32.0 [facility] Work Phone: Nucleated RBC/100 WBC (Bld) [Ratio] 0.4 % 0-5 [facility] Work Phone: MCHC Auto (RBC) [Mass/Vol]on 02-01-2022 MCHC (RBC) [Mass/Vol] 32.0 g/dL 32-[address] [facility] Work Phone: No Panel Informationon 02-01 Estimated GFR (MDRD) Amer 134 mL/min >60 [facility] Work Phone: Comment on above: GFR Calc Estimated GFR (MDRD) Non-Af Amer 111 mL/min >60 [facility] Work Phone: Comment on above: Non- GFR Calc Platelets bldon 02-01-2022 Platelets (Bld) [#/Vol] 157 10*3/uL 150-450 [facility] Work Phone: Serum or plasma albumin benita urement (mass/volume)on 02-01-2022 Albumin [Mass/Vol] 2.0 g/dL 3.2-5.0 [facility] Work Phone: Serum or plasma albumin/glob ulin mass ratioon 02-01-2022 Albumin/Globulin [Mass ratio] 0.5 {ratio} 0.9-2.4 [facility] Work Phone: Serum or plasma calcium benita urement (mass/volume)on 02-01-2022 Calcium [Mass/Vol] 8.4 mg/dL 8.5-10.1 [facility] Work Phone: Serum or plasma creatinine m easurement (mass/volume)on 02-01-2022 Creatinine [Mass/Vol] 0.70 mg/dL 0.55-1.[address] [facility] Work Phone: Comment on above: The validity of the calculated GFR & GFRAA in patients over 70 years has not been determined. Clinical correlation is essential. Serum or plasma urea nitroge n measurement (mass/volume)on 02-01-2022 Urea nitrogen [Mass/Vol] 6 mg/dL 7-18 [facility] Work Phone: Thin prep Papanicolaou smear with manual screeningon 02-01-2022 Thin prep Papanicolaou smear with manual screening 35 U/L 15-37 [facility] Work Phone: Thin prep Papanicolaou smear with manual screening 6 5-15 [facility] Work Phone: Thin prep Papanicolaou smear with manual screening 198 U/L 84-246 [facility] Work Phone: Urine creatinine measurement (mass/volume)on 02-01-2022 Creatinine (U) [Mass/Vol] 73.30 mg/dL NO RANGE EST. [facility] Work Phone: Urine protein measurement (m ass/volume)on 02-01-2022 Protein (U) [Mass/Vol] 48.2 mg/dL 0.0-11.8 [facility] Work Phone: Urine protein/creatinine mas s ratioon 02-01-2022 Protein/Creatinine (U) [Mass ratio] 658 mg/g CRE 0-200 [facility] Work Phone: Progress Noteon 01-31-2022 Progress Note --- Attestation signed by Sarina Carey MD at [...] on vaginal progesterone Depression continued zoloft Anesthesia complications-pseudocho linesterase deficiency Magnesium is not contraindicated HSV history repeat exam if labor continued VALTREX 500mg BID on I spent 15 minutes in the visit today on the floor reviewing the chart, discussing the case with the residency staff and nursing Sarina Carey MD Maternal Medicine Service Resident Progress Note 01/31/2022 [...] Daily Asiya German DO 1 patch at 01/30/222104 ondansetron ODT (Zofran-ODT) disintegrating tablet 4 mg 4 mg Oral q8h PRN Bunny Ramirez DO Or ondansetron (Zofran) injection 4 mg 4 mg IntraVENous q6h PRN Bunny Ramirez DO vitamin tablet 1 tablet Oral Daily Bunny Ramirez DO 1 tablet at 01/30/22 09 sertraline (Zoloft) tablet 50 mg 50 mg Oral Daily Bunny Ramirez DO 50 mg at 01/30/22 09 sodium chloride 0.9% (NS) flush 10 mL 10 mL IntraVENous PRN Asiya German DO valACYclovir (Valtrex) tablet 500 mg 500 mg Oral BID Bunny Ramirez, DO 500 mg at 01/30/222105 Assessment/Plan: Juanita Paulino is a 21 y.o. female 34w1d tPTL -Made change from 2 to 4 cm on admission -Given BMZ x2 on 01/28 ([place]) and 01/29 ([facility]) -s/p Procardia for tocolysis - SVE remains 4 cm since admission, last SVE 01/20 -s/p NICU consult Nicolasa Twin Gestation -Most recent growth 01/30 noted A: 2557g 59%, cephalic. B 2557g 59%, cephalic - After discussion regarding Vtx/vtx presentation, now would prefer vaginal delivery PreEwoSF -Mild range Bps noted >4 hours apart at [place] and [facility] -No hx of HTN disorders previously -UPC at [facility] 0.4, however repeat at [facility] 0.24 -CMP and CBC wnl -Asymptomatic -BP overnight normotensive Anemia -Hgb on admission 10.4 -Iron and colace ordered HSV -Recent outbreak 1 week prior to admission and on suppressive valtrex, reports compliance -SEE negative at [facility] and [facility] for lesions -Continue Valtrex 500g BID -Plan [...] attending. Mariah Ansari MD 01/31/2022, 6:06 AM [facility] CARECOORDon 01-30-2022 CARECOORD 21 year old admitted for and transport from [place] to labor with di/di twins at 33/5 weeks. 2 Para 1. Preeclampsia History of delivery, on progesterone. History of depression, mood stable ion Zoloft. Denies needs of food, transportation or housing. Voiced no needs or concerns. Normal [facility] Consulton 01-30-2022 Consult Consult by Neonatology Request by OB: Resident for Dr. Carey Reason for Consult: Prematurity, Twin Gestation Maternal History and current problem: Di/Di twin gestation at 34 weeks. Presented to [place] with labor and pre-eclampsia without severe features. Transferred to [facility] for management. Significant history: ART , PTL, [...] from NICU Potential need for transfer to [facility] if needs esclation of care, based on a variety of factors. Handouts given. No further questions. A/P: Patient is a 21 Year old At 34 Weeks 0 Days by Pt. report With labor and pre-eclampsia without severe features 1. Current Management per OB 2. NICU to attend delivery 3. Call NICU if further questions. Stephan Darden, EARLY MORNING BABYSITTER-DIRECTOR OF ACCOUNTS RECEIVABLE Normal [facility] Nursing Noteon 01-30-2022 Nursing Note Patient sitting up i n chair, stating that she is having vaginal pressure especially when up walking and sitting on toilet, also having lots of Bms today. Has had several times of blood streaked mucous when wiping. Normal [facility] Progress Noteon 01-30-2022 Progress Note Patient feeling some low back pain, possibly some mild contractions every once in a while. Having increased mucous discharge with int vaginal spotting when she wipes. SVE unchanged from last night 4/50/-4. Patient reassured and will try tylenol with lidocaine patch, back pain is most likely from MSK pain. [employer] quiet. ASIYA GERMAN, 01/30/2022 8:39 PM Normal [facility] Progress Note Nutrition rescreen completed. Chart reviewed. Patient to be monitored and followed by the diet quality technician fiberglass. Dietitian available upon request. ALCIRA Baez [facility] Progress Note --- Attestation signed by Sarina Carey MD at [...] on vaginal progesterone Depression continued zoloft Anesthesia complications-pseudocho linesterase deficiency Magnesium is not contraindicated HSV history repeat exam if labor continued VALTREX 500mg BID I spent 15 minutes in the visit today on the floor reviewing the chart, discussing the case with the residency staff and nursing Sarina Carey MD Maternal Medicine Service Resident Progress Note 01/30/2022 6:33 AM 01/28/2022 Hospital Day: 3 Juanita Paulino, 21 y.o. 34w0d Patient has been seen and examined. Pt has no complaints this morning. Has lots of mucous discharge last night. Had SSE and SVE last night. Positive movement Negative vaginal bleeding Negative LOF Negative Contractions Vitals: 01/29/22 1403 01/29/22202801/30/22 0205 01/30/22 0601 BP: 136/85 126/71 124/67 [...] Gluconate Cloth 2 % cloth Topical q6h Bunyn Ramirez DO 1 each at 01/28/222040 docusate sodium (Colace) capsule 100 mg 100 mg Oral BID Bunny Ramirez DO 100 mg at 01/29/222028 ferrous sulfate tablet 325 mg 325 mg Oral Daily with breakfast Mami Mascorro DO 325 mg at 01/29/22 0811 ondansetron ODT (Zofran-ODT) disintegrating tablet 4 mg 4 mg Oral q8h PRN Bunny Ramirez, DO Or ondansetron (Zofran) injection 4 mg 4 mg IntraVENous q6h PRN Bunny Ramirez, DO vitamin tablet 1 tablet Oral Daily Bunny Ramirez, DO 1 tablet at 01/29/22 0811 sertraline (Zoloft) tablet 50 mg 50 mg Oral Daily Bunny Ramirez, DO 50 mg at 01/29/22 0811 sodium chloride-bacteriostatic 0.9 % injection 10 mL 10 mL IntraVENous BID Marjorie Guadarrama MD 10 mL at 01/29/222149 valACYclovir (Valtrex) tablet 500 mg 500 mg Oral BID Bunny Ramirez, DO 500 mg at 01/29/222027 Assessment/Plan: Juanita [...] noted >4 hours apart at [facility] and [facility] -No hx of HTN disorders previously -UPC at [place] 0.4, however repeat at [facility] 0.24 -CMP and CBC wnl -Asymptomatic -BP [...] TID - Diet:General - BMZ x2 ob 01/28- Further plan pending d/w attending. Mariah Ansari MD 01/30/2022, 6:33 AM [facility] US BIOPHYSICAL PROFILE WO NON STRESS TESTINGon 01-30-2022 US BIOPHYSICAL PROFILE WO NON STRESS TESTING - OBSTETRICS REPORT (Signed Final 01/30/2022 11:25 am) - PATIENT INFO: ID #: [id number] : [birth year] (21 yrs)(F) Name: JUANITA PAULINO Visit Date: 01/30/2022 10:23 am - PERFORMED BY: Attending: Sarina Carey MD Performed By: Dorita Kam RDMA Referred By: [facility] Location: [facility] IP Visit Type: Inpatient - Hospital - SERVICE(S) PROVIDED: [place] [id number] [place] [id number] BPP w/out NST [id number] BPP w/out NST 37827 - INDICATIONS: Di/ Di Twins Threatened Labor - VITAL SIGNS: Weight (lb): 305 Height: 5'7 BMI: 47.76 - EVALUATION (FETUS A): Num Of Fetuses: 2 Heart Rate(bpm): 152 Cardiac Activity: Regular rhythm Lie: Longitudinal Maternal RT Presentation: Cephalic Placenta: Posterior Membrane Desc: Dichorionic - diamniotic Membrane Size: Normal Amniotic Fluid ARIK FV: Within normal limits Largest Pocket(cm) 4.5 - BIOPHYSICAL EVALUATION (FETUS A): Amniotic F.V: Within normal limits F. Tone: Observed F. Movement: Observed Score: 8/8 F. Breathing: Observed - BIOMETRY (FETUS A): BPD: 84.5 mm G.Age: [...] % FW Discordancy: 0 \ 0 % - GESTATIONAL AGE (FETUS A): Clinical MARCELLE: 34w 0d MARCELLE: 03/13/22 U/S Today: 35w 2d MARCELLE: 03/04/22 Best: 34w 0d Det. By: Clinical MARCELLE MARCELLE: 03/13/22 - ANATOMY (FETUS A): Cranium: Normal appearance Cavum: [...] Extremities: Normal appearance Lower Extremities: Normal appearance - EVALUATION (FETUS B): Num Of Fetuses: 2 Heart Rate(bpm): 117 Cardiac Activity: Regular rhythm Lie: Longitudinal Maternal LT Presentation: Cephalic Placenta: Posterior Membrane Desc: Dichorionic - diamniotic Membrane Size: Normal Amniotic Fluid ARIK FV: Within normal limits Largest Pocket(cm) 7.1 - BIOPHYSICAL EVALUATION (FETUS B): Amniotic F.V: Within normal limits F. Tone: Observed F. Movement: Observed Score: 09/26 F. Breathing: Observed - BIOMETRY (FETUS B): BPD: 84.5 mm G.Age: [...] % FW Discordancy: 0 \ 0 % - GESTATIONAL AGE (FETUS B): Clinical MARCELLE: 34w 0d MARCELLE: 03/13/22 U/S Today: 35w 2d MARCELLE: 03/04/22 Best: 34w 0d Det. By: Clinical MARCELLE MARCELLE: 03/13/22 - ANATOMY (FETUS B): Cranium: Normal appearance Cavum: Normal appearance Ventricles: Normal appearance Choroid Plexus: Normal appearance Cerebellum: Normal appearance Posterior Fossa: Normal appearance Nuchal Fold: Normal appearance Face: Previously visualized Lips: Previously visualized Palate: Previously visualized Thoracic: Normal appearance Heart: Normal appearance (more content not included)... Normal [facility] OB FOLLOW UP TRANSABDOMIN AL APPROACHon 01-30-2022 OB FOLLOW UP TRANSABDOMINAL APPROACH - OBSTETRICS REPORT (Signed Final 01/30/2022 11:25 am) - PATIENT INFO: ID #: [id number] : [birth year] (21 yrs)(F) Name: JUANITA PAULINO Visit Date: 01/30/2022 10:23 am - PERFORMED BY: Attending: Sarina Carey MD Performed By: Dorita Kam RDMS Referred By: BUNNY RAMIREZ Location: [facility] IP Visit Type: Inpatient - Hospital - SERVICE(S) PROVIDED: [place] [id number] [place] [id number] BPP w/out NST 18982 BPP w/out NST 28815 - INDICATIONS: Di/ Di Twins Threatened Labor - VITAL SIGNS: Weight (lb): 305 Height: 5'7 BMI: 47.76 - EVALUATION (FETUS A): Num Of Fetuses: 2 Heart Rate(bpm): 152 Cardiac Activity: Regular rhythm Lie: Longitudinal Maternal RT Presentation: Cephalic Placenta: Posterior Membrane Desc: Dichorionic - diamniotic Membrane Size: Normal Amniotic Fluid ARIK FV: Within normal limits Largest Pocket(cm) 4.5 - BIOPHYSICAL EVALUATION (FETUS A): Amniotic F.V: Within normal limits F. Tone: Observed F. Movement: Observed Score: 09/26 F. Breathing: Observed - BIOMETRY (FETUS A): BPD: 84.5 mm G.Age: [...] % FW Discordancy: 0 \ 0 % - GESTATIONAL AGE (FETUS A): Clinical MARCELLE: 34w 0d MARCELLE: 03/13/22 U/S Today: 35w 2d MARCELLE: 03/04/22 Best: 34w 0d Det. By: Clinical MARCELLE MARCELLE: 03/13/22 - ANATOMY (FETUS A): Cranium: Normal appearance Cavum: [...] Extremities: Normal appearance Lower Extremities: Normal appearance - EVALUATION (FETUS B): Num Of Fetuses: 2 Heart Rate(bpm): 117 Cardiac Activity: Regular rhythm Lie: Longitudinal Maternal LT Presentation: Cephalic Placenta: Posterior Membrane Desc: Dichorionic - diamniotic Membrane Size: Normal Amniotic Fluid ARIK FV: Within normal limits Largest Pocket(cm) 7.1 - BIOPHYSICAL EVALUATION (FETUS B): Amniotic F.V: Within normal limits F. Tone: Observed F. Movement: Observed Score: 8/8 F. Breathing: Observed - BIOMETRY (FETUS B): BPD: 84.5 mm G.Age: [...] % FW Discordancy: 0 \ 0 % - GESTATIONAL AGE (FETUS B): Clinical MARCELLE: 34w 0d MARCELLE: 03/13/22 U/S Today: 35w 2d MARCELLE: 03/04/22 Best: 34w 0d Det. By: Clinical MARCELLE MARCELLE: 03/13/22 - ANATOMY (FETUS B): Cranium: Normal appearance Cavum: Normal appearance Ventricles: Normal appearance Choroid Plexus: Normal appearance Cerebellum: Normal appearance Posterior Fossa: Normal appearance Nuchal Fold: Normal appearance Face: Previously visualized Lips: Previously visualized Palate: Previously visualized Thoracic: Normal appearance Heart: Normal appearance (more content not included)... Normal [facility] Progress Noteon 01-29-2022 Progress Note SSE negative for ROM . Still 4cm on SVE. ASIYA GERMAN DO 01/29/2022 9:00 PM Normal [facility] Progress Note --- Attestation signed by Willow Moscoso DO at [...] the first dose of BMZ. Hypertension at [place], no severe features of preeclampsia at this time. Repeat preeclampsia labs if increasing BP or symptoms concerning for preeclampsia. Plan for growth US in am. I spent 15 minutes in the visit, with more than 50% of the total [id number] time of the visit in counseling/coordination of care. Maternal Medicine Service Resident Progress Note 01/29/2022 5:54 AM 01/28/2022 Hospital Day: 2 Juanita Jefferson, 21 y.o. 33w6d Patient has been seen [...] day Bunny Ramirez, DO 10 mg at 01/29/223 ondansetron ODT (Zofran-ODT) disintegrating tablet 4 mg 4 mg Oral q8h PRN Bunny Ramirez, Or ondansetron (Zofran) injection 4 mg 4 mg IntraVENous q6h PRN Bunny Ramirez, DO vitamin tablet 1 tablet Oral Daily Bunny Ramirez, sertraline (Zoloft) tablet 50 mg 50 mg Oral Daily Bunny Ramirez, valACYclovir (Valtrex) tablet 500 mg 500 mg Oral BID Bunny Ramirez, DO 500 mg at 01/28/222041 Assessment/Plan: Juanita Paulino is a 21 y.o. female 33w6d Threatened Labor -Presented from [place] as a transfer for concern of tPTL after reporting contractions -Made cervical parks at [place] from Closed to 2cm, and was further noted to be 4cm while in [facility] triage -Given BMZ x2 on 01/28 ([place]) and 01/29 ([facility]) -Continue Procarda for 48 hour tocolysis (01/30 [...] noted >4 hours apart at [place] and [facility] -No hx of HTN disorders previously -UPC at [place] 0.4, however repeat at [facility] 0.24 -CMP and CBC wnl -Asymptomatic -BP overnight normotensive Anemia -Hgb on admission 10.4 -Iron and colace ordered 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 Normal [facility] No Panel Informationon 01-28 Specimen Comment (Misc) Not Reportable [facility] Work Phone: Progress Noteon 01-28-2022 Progress Note Courtesy visit: Pt's OB hx reviewed. Stopped and saw pt. Pt looked comfortable on . D/w pt expected plan if she goes into labor. S/p BMZ x1. Lukas Mcneil DO. Normal [facility] Serum or plasma ferritin susie surement (mass/volume)on 01-28-2022 Ferritin [Mass/Vol] 7 ng/mL 8-252 [facility] Work Phone: Thin prep Papanicolaou smear with manual screeningon 01-28-2022 Thin prep Papanicolaou smear with manual screening Negative Negative [facility] Work Phone: Absolute lymphocyte counton 01-27-2022 Lymphocytes Auto (Unsp spec) [#/Vol] 1.35 10*3/uL 0.83-4.51 [facility] Work Phone: Basophil percentageon 2021 Basophils/100 WBC (Bld) 0.7 % 0-1 [facility] Work Phone: Bilirubin [Mass/Vol] 0.40 mg/dL 0.20-1.00 [facility] Work Phone: Comment on above: For patients on eltr ombopag therapy, use of [employer] [place] TBIL is not recommended. Chloride [Moles/Vol] 109 mmol/L 98-107 [facility] Work Phone: Eosinophils/100 WBC (Bld) 0.5 % 0-5 [facility] Work Phone: Glucose [Mass/Vol] 79 mg/dL 74-106 [facility] Work Phone: Neutrophils (Bld) [#/Vol] 2.6 10*3/uL 2.0-7.7 [facility] Work Phone: Neutrophils/100 WBC (Bld) 59.5 % 47-70 [facility] Work Phone: Potassium [Moles/Vol] 3.7 mmol/L 3.5-5.[address] [facility] Work Phone: Protein [Mass/Vol] 6.3 g/dL 6.4-8.2 [facility] Work Phone: Sodium [Moles/Vol] 141 mmol/L 136-145 [facility] Work Phone: [phone] WBC (Bld) [#/Vol] 4.3 10*3/uL 4.4-11.0 [facility] Work Phone: Basophil percentage 0-5 SEEN /hpf 0-5 [facility] Work Phone: [phone] Bilirubin Test strip Ql (U)o n 01-27-2022 Bilirubin Ql (U) Negative Negative [facility] Work Phone: Blood erythrocytes count (nu mber/volume)on 01-27-2022 RBC (Bld) [#/Vol] 4.08 10*6/uL 4.2-5.4 [facility] Work Phone: Blood hemoglobin measurement (mass/volume)on 01-27-2022 Hemoglobin (Bld) [Mass/Vol] 9.8 g/dL 12.0-15.0 [facility] Work Phone: Blood lymphocytes/100 leukoc yteson 01-27-2022 Lymphocytes/100 WBC (Bld) 31.4 % 19-41 [facility] Work Phone: Blood monocytes/100 leukocyt eson 01-27-2022 Monocytes/100 WBC (Bld) 7.2 % 0-10 [facility] Work Phone: Blood platelet mean volumeon 01-27-2022 Platelet mean volume (Bld) [Entitic vol] 12.9 fL 6.2-12.0 [facility] Work Phone: Determination of erythrocyte mean corpuscular volume (MCV)on 01-27-2022 MCV (RBC) [Entitic vol] 77.0 fL 81-99 [facility] Work Phone: Hematocrit Auto (Bld) [Volum e fraction]on 01-27-2022 Hematocrit (Bld) [Volume fraction] 31.4 % 37-47 [facility] Work Phone: Ketones Test strip Ql (U)on 01-27-2022 Ketones Ql (U) 5 mg/dl Negative [facility] Work Phone: Laboratory - Chemistry and C hemistry - challengeon 01-27-2022 ALP [Catalytic activity/Vol] 155 U/L 45-117 [facility] Work Phone: ALT [Catalytic activity/Vol] 20 U/L 13-56 [facility] Work Phone: CO2 [Moles/Vol] 24.0 mmol/L 21.0-32.0 [facility] Work Phone: Globulin (S) [Mass/Vol] 4.1 g/dL 2.2-4.2 [facility] Work Phone: Urea nitrogen/Creatinine [Mass ratio] 9.5 mg/mg 10-20 [facility] Work Phone: Laboratory - Hematology and Cell countson 01-27-2022 Erythrocyte distribution width (RBC) [Entitic vol] 38.0 fL 35.1-43.9 [facility] Work Phone: Erythrocyte distribution width (RBC) [Ratio] 13.5 % 11.6-14.6 [facility] Work Phone: Immature granulocytes/100 WBC (Bld) 0.700 % 0.0-0.9 [facility] Work Phone: Comment on above: IG% - Immature Granu locytes (promyelocytes, myelocytes and metamyelocytes) > 1% indicates that a LEFT SHIFT is Present. MCH (RBC) [Entitic mass] 24.0 pg 27.0-32.0 [facility] Work Phone: Nucleated RBC/100 WBC (Bld) [Ratio] 0 % 0-5 [facility] Work Phone: MCHC Auto (RBC) [Mass/Vol]on 01-27-2022 MCHC (RBC) [Mass/Vol] 31.2 g/dL 32-[address] [facility] Work Phone: Mucus LM Ql (Urine sed)on Mucus Ql (Urine sed) 0 SEEN /hpf [facility] Work Phone: Nitrite Test strip Ql (U)on 01-27-2022 Nitrite Ql (U) Negative Negative [facility] Work Phone: No Panel Informationon 01-27 Estimated Creatinine Clearance Calc 90.52 ml/min [facility] Work Phone: Estimated GFR (MDRD) Amer 94 mL/min >60 [facility] Work Phone: Comment on above: GFR Calc Estimated GFR (MDRD) Non-Af Amer 78 mL/min >60 [facility] Work Phone: Comment on above: Non- GFR Calc Platelets bldon 01-27-2022 Platelets (Bld) [#/Vol] 200 10*3/uL 150-450 [facility] Work Phone: Protein Test strip Ql (U)on 01-27-2022 Protein Ql (U) 100 mg/dl Negative [facility] Work Phone: Serum or plasma albumin benita urement (mass/volume)on 01-27-2022 Albumin [Mass/Vol] 2.2 g/dL 3.2-5.0 [facility] Work Phone: Serum or plasma albumin/glob ulin mass ratioon 01-27-2022 Albumin/Globulin [Mass ratio] 0.5 {ratio} 0.9-2.4 [facility] Work Phone: Serum or plasma calcium benita urement (mass/volume)on 01-27-2022 Calcium [Mass/Vol] 9.3 mg/dL 8.5-10.1 [facility] Work Phone: Serum or plasma creatinine m easurement (mass/volume)on 01-27-2022 Creatinine [Mass/Vol] 0.94 mg/dL 0.55-1.[address] [facility] Work Phone: Comment on above: The validity of the calculated GFR & GFRAA in patients over 70 years has not been determined. Clinical correlation is essential. Serum or plasma urea nitroge n measurement (mass/volume)on 01-27-2022 Urea nitrogen [Mass/Vol] 9 mg/dL 7-18 [facility] Work Phone: Squamous epithelial cells de tection in urine sediment by light microscopyon 01-27-2022 Epithelial cells.squamous LM Ql (Urine sed) 5-10 SEEN /hpf 5-10 [facility] Work Phone: Thin prep Papanicolaou smear with manual screeningon 01-27-2022 Thin prep Papanicolaou smear with manual screening 28 U/L 15-37 [facility] Work Phone: Thin prep Papanicolaou smear with manual screening 8 5-15 [facility] Work Phone: Thin prep Papanicolaou smear with manual screening 155 U/L 84-246 [facility] Work Phone: Urine blood detectionon RBC Ql (U) 10 /ul Negative [facility] Work Phone: RBC Ql (U) 0-5 SEEN /hpf 0-5 [facility] Work Phone: Urine clarityon 01-27-2022 Clarity (U) Clear Clear [facility] Work Phone: Urine color determinationon 01-27-2022 Color (U) Yellow Yellow [facility] Work Phone: Urine creatinine measurement (mass/volume)on 01-27-2022 Creatinine (U) [Mass/Vol] 332.00 mg/dL NO RANGE EST. [facility] Work Phone: Urine glucose detectionon Glucose Ql (U) Normal mg/dl Normal [facility] Work Phone: Urine leukocyte esterase det ection by dipstickon 01-27-2022 Leukocyte esterase Test strip Ql (U) 500 /ul Negative [facility] Work Phone: Urine pHon 01-27-2022 pH (U) 6.0 [pH] 5.0 - 8.0 [facility] Work Phone: Urine protein measurement (m ass/volume)on 01-27-2022 Protein (U) [Mass/Vol] 140.6 mg/dL 0.0-11.8 [facility] Work Phone: Urine protein/creatinine mas s ratioon 01-27-2022 Protein/Creatinine (U) [Mass ratio] 423 mg/g CRE 0-200 [facility] Work Phone: Urine sediment bacteria coun t by microscopy (number/high power field)on 01-27-2022 Bacteria LM.HPF (Urine sed) [#/Area] 0 /[HPF] None Seen [facility] Work Phone: Urine specific gravity measu rementon 01-27-2022 Specific gravity (U) [Rel density] 1.020 1.002-1.030 [facility] Work Phone: Urobilinogen Auto test strip Ql (U)on 01-27-2022 Urobilinogen Ql (U) 1 mg/dl Normal [facility] Work Phone: Absolute lymphocyte counton 01-24-2022 Lymphocytes Auto (Unsp spec) [#/Vol] 1.07 10*3/uL 0.83-4.51 [facility] Work Phone: Basophil percentageon 2021 Basophils/100 WBC (Bld) 0.5 % 0-1 [facility] Work Phone: [phone] Bilirubin [Mass/Vol] 0.50 mg/dL 0.20-1.00 [facility] Work Phone: Comment on above: For patients on eltr ombopag therapy, use of [employer] [place] TBIL is not recommended. Chloride [Moles/Vol] 107 mmol/L 98-107 [facility] Work Phone: Eosinophils/100 WBC (Bld) 0.5 % 0-5 [facility] Work Phone: [phone] Glucose [Mass/Vol] 84 mg/dL 74-106 [facility] Work Phone: [phone] Neutrophils (Bld) [#/Vol] 2.6 10*3/uL 2.0-7.7 [facility] Work Phone: Neutrophils/100 WBC (Bld) 65.3 % 47-70 [facility] Work Phone: Potassium [Moles/Vol] 3.8 mmol/L 3.5-5.[address] [facility] Work Phone: Protein [Mass/Vol] 6.6 g/dL 6.4-8.2 [facility] Work Phone: [phone] Sodium [Moles/Vol] 140 mmol/L 136-145 [facility] Work Phone: WBC (Bld) [#/Vol] 4.0 10*3/uL 4.4-11.0 [facility] Work Phone: Blood erythrocytes count (nu mber/volume)on 01-24-2022 RBC (Bld) [#/Vol] 4.31 10*6/uL 4.2-5.4 [facility] Work Phone: Blood hemoglobin measurement (mass/volume)on 01-24-2022 Hemoglobin (Bld) [Mass/Vol] 10.5 g/dL 12.0-15.0 [facility] Work Phone: [phone] Blood lymphocytes/100 leukoc yteson 01-24-2022 Lymphocytes/100 WBC (Bld) 26.6 % 19-41 [facility] Work Phone: Blood monocytes/100 leukocyt eson 01-24-2022 Monocytes/100 WBC (Bld) 6.9 % 0-10 [facility] Work Phone: Blood platelet mean volumeon 01-24-2022 Platelet mean volume (Bld) [Entitic vol] 11.4 fL 6.2-12.0 [facility] Work Phone: Determination of erythrocyte mean corpuscular volume (MCV)on 01-24-2022 MCV (RBC) [Entitic vol] 77.0 fL 81-99 [facility] Work Phone: Hematocrit Auto (Bld) [Volum e fraction]on 01-24-2022 Hematocrit (Bld) [Volume fraction] 33.2 % 37-47 [facility] Work Phone: Laboratory - Chemistry and C hemistry - challengeon 01-24-2022 ALP [Catalytic activity/Vol] 155 U/L 45-117 [facility] Work Phone: ALT [Catalytic activity/Vol] 17 U/L 13-56 [facility] Work Phone: CO2 [Moles/Vol] 24.0 mmol/L 21.0-32.0 [facility] Work Phone: Globulin (S) [Mass/Vol] 4.4 g/dL 2.2-4.2 [facility] Work Phone: Urea nitrogen/Creatinine [Mass ratio] 8.9 mg/mg 10-20 [facility] Work Phone: Laboratory - Hematology and Cell countson 01-24-2022 Erythrocyte distribution width (RBC) [Entitic vol] 38.4 fL 35.1-43.9 [facility] Work Phone: Erythrocyte distribution width (RBC) [Ratio] 13.7 % 11.6-14.6 [facility] Work Phone: Immature granulocytes/100 WBC (Bld) 0.200 % 0.0-0.9 [facility] Work Phone: Comment on above: IG% - Immature Granu locytes (promyelocytes, myelocytes and metamyelocytes) > 1% indicates that a LEFT SHIFT is Present. MCH (RBC) [Entitic mass] 24.4 pg 27.0-32.0 [facility] Work Phone: Nucleated RBC/100 WBC (Bld) [Ratio] 0 % 0-5 [facility] Work Phone: MCHC Auto (RBC) [Mass/Vol]on 01-24-2022 MCHC (RBC) [Mass/Vol] 31.6 g/dL 32-[address] [facility] Work Phone: No Panel Informationon 01-24 Estimated GFR (MDRD) Amer 116 mL/min >60 [facility] Work Phone: Comment on above: GFR Calc Estimated GFR (MDRD) Non-Af Amer 96 mL/min >60 [facility] Work Phone: Comment on above: Non- GFR Calc Platelets bldon 01-24-2022 Platelets (Bld) [#/Vol] 191 10*3/uL 150-450 [facility] Work Phone: Serum or plasma albumin benita urement (mass/volume)on 01-24-2022 Albumin [Mass/Vol] 2.2 g/dL 3.2-5.0 [facility] Work Phone: Serum or plasma albumin/glob ulin mass ratioon 01-24-2022 Albumin/Globulin [Mass ratio] 0.5 {ratio} 0.9-2.4 [facility] Work Phone: Serum or plasma calcium benita urement (mass/volume)on 01-24-2022 Calcium [Mass/Vol] 8.8 mg/dL 8.5-10.1 [facility] Work Phone: Serum or plasma creatinine m easurement (mass/volume)on 01-24-2022 Creatinine [Mass/Vol] 0.79 mg/dL 0.55-1.[address] [facility] Work Phone: Comment on above: The validity of the calculated GFR & GFRAA in patients over 70 years has not been determined. Clinical correlation is essential. Serum or plasma urea nitroge n measurement (mass/volume)on 01-24-2022 Urea nitrogen [Mass/Vol] 7 mg/dL 7-18 [facility] Work Phone: Thin prep Papanicolaou smear with manual screeningon 01-24-2022 Thin prep Papanicolaou smear with manual screening 25 U/L 15-37 [facility] Work Phone: Thin prep Papanicolaou smear with manual screening 9 5-15 [facility] Work Phone: Thin prep Papanicolaou smear with manual screening 180 U/L 84-246 [facility] Work Phone: Urine creatinine measurement (mass/volume)on 01-24-2022 Creatinine (U) [Mass/Vol] 381.00 mg/dL NO RANGE EST. [facility] Work Phone: Urine protein measurement (m ass/volume)on 01-24-2022 Protein (U) [Mass/Vol] 101.7 mg/dL 0.0-11.8 [facility] Work Phone: Urine protein/creatinine mas s ratioon 01-24-2022 Protein/Creatinine (U) [Mass ratio] 267 mg/g CRE 0-200 [facility] Work Phone: Absolute lymphocyte counton 01-17-2022 Lymphocytes Auto (Unsp spec) [#/Vol] 1.11 10*3/uL 0.83-4.51 [facility] Work Phone: Basophil percentageon 2021 Basophils/100 WBC (Bld) 0.4 % 0-1 [facility] Work Phone: [phone] Bilirubin [Mass/Vol] 0.60 mg/dL 0.20-1.00 [facility] Work Phone: Comment on above: For patients on eltr ombopag therapy, use of [employer] [place] TBIL is not recommended. Chloride [Moles/Vol] 103 mmol/L 98-107 [facility] Work Phone: Eosinophils/100 WBC (Bld) 0.4 % 0-5 [facility] Work Phone: Glucose [Mass/Vol] 83 mg/dL 74-106 [facility] Work Phone: Neutrophils (Bld) [#/Vol] 3.1 10*3/uL 2.0-7.7 [facility] Work Phone: Neutrophils/100 WBC (Bld) 67.7 % 47-70 [facility] Work Phone: Potassium [Moles/Vol] 3.7 mmol/L 3.5-5.[address] [facility] Work Phone: Protein [Mass/Vol] 6.6 g/dL 6.4-8.2 [facility] Work Phone: Sodium [Moles/Vol] 137 mmol/L 136-145 [facility] Work Phone: WBC (Bld) [#/Vol] 4.6 10*3/uL 4.4-11.0 [facility] Work Phone: Blood erythrocytes count (nu mber/volume)on 01-17-2022 RBC (Bld) [#/Vol] 4.29 10*6/uL 4.2-5.4 [facility] Work Phone: Blood hemoglobin measurement (mass/volume)on 01-17-2022 Hemoglobin (Bld) [Mass/Vol] 10.7 g/dL 12.0-15.0 [facility] Work Phone: Blood lymphocytes/100 leukoc yteson 01-17-2022 Lymphocytes/100 WBC (Bld) 24.3 % 19-41 [facility] Work Phone: Blood monocytes/100 leukocyt eson 01-17-2022 Monocytes/100 WBC (Bld) 6.8 % 0-10 [facility] Work Phone: Blood platelet mean volumeon 01-17-2022 Platelet mean volume (Bld) [Entitic vol] 11.4 fL 6.2-12.0 [facility] Work Phone: Determination of erythrocyte mean corpuscular volume (MCV)on 01-17-2022 MCV (RBC) [Entitic vol] 77.6 fL 81-99 [facility] Work Phone: Hematocrit Auto (Bld) [Volum e fraction]on 01-17-2022 Hematocrit (Bld) [Volume fraction] 33.3 % 37-47 [facility] Work Phone: Laboratory - Chemistry and C hemistry - challengeon 01-17-2022 ALP [Catalytic activity/Vol] 138 U/L 45-117 [facility] Work Phone: ALT [Catalytic activity/Vol] 13 U/L 13-56 [facility] Work Phone: CO2 [Moles/Vol] 24.0 mmol/L 21.0-32.0 [facility] Work Phone: Globulin (S) [Mass/Vol] 4.4 g/dL 2.2-4.2 [facility] Work Phone: Urea nitrogen/Creatinine [Mass ratio] 8.2 mg/mg 10-20 [facility] Work Phone: Laboratory - Hematology and Cell countson 01-17-2022 Erythrocyte distribution width (RBC) [Entitic vol] 39.5 fL 35.1-43.9 [facility] Work Phone: Erythrocyte distribution width (RBC) [Ratio] 14.2 % 11.6-14.6 [facility] Work Phone: Immature granulocytes/100 WBC (Bld) 0.400 % 0.0-0.9 [facility] Work Phone: Comment on above: IG% - Immature Granu locytes (promyelocytes, myelocytes and metamyelocytes) > 1% indicates that a LEFT SHIFT is Present. MCH (RBC) [Entitic mass] 24.9 pg 27.0-32.0 [facility] Work Phone: Nucleated RBC/100 WBC (Bld) [Ratio] 0 % 0-5 [facility] Work Phone: MCHC Auto (RBC) [Mass/Vol]on 01-17-2022 MCHC (RBC) [Mass/Vol] 32.1 g/dL 32-[address] [facility] Work Phone: No Panel Informationon 01-17 Estimated Creatinine Clearance Calc 114.98 ml/min [facility] Work Phone: Estimated GFR (MDRD) Amer 126 mL/min >60 [facility] Work Phone: Comment on above: GFR Calc Estimated GFR (MDRD) Non-Af Amer 104 mL/min >60 [facility] Work Phone: Comment on above: Non- GFR Calc Platelets bldon 01-17-2022 Platelets (Bld) [#/Vol] 207 10*3/uL 150-450 [facility] Work Phone: Serum or plasma albumin benita urement (mass/volume)on 01-17-2022 Albumin [Mass/Vol] 2.2 g/dL 3.2-5.0 [facility] Work Phone: Serum or plasma albumin/glob ulin mass ratioon 01-17-2022 Albumin/Globulin [Mass ratio] 0.5 {ratio} 0.9-2.4 [facility] Work Phone: Serum or plasma calcium benita urement (mass/volume)on 01-17-2022 Calcium [Mass/Vol] 8.5 mg/dL 8.5-10.1 [facility] Work Phone: Serum or plasma creatinine m easurement (mass/volume)on 01-17-2022 Creatinine [Mass/Vol] 0.74 mg/dL 0.55-1.02 [place] Work Phone: Comment on above: The validity of the calculated GFR & GFRAA in patients over 70 years has not been determined. Clinical correlation is essential. Serum or plasma urea nitroge n measurement (mass/volume)on 01-17-2022 Urea nitrogen [Mass/Vol] 6 mg/dL 7-18 [facility] Work Phone: Thin prep Papanicolaou smear with manual screeningon 01-17-2022 Thin prep Papanicolaou smear with manual screening 20 U/L 15-37 [facility] Work Phone: Thin prep Papanicolaou smear with manual screening 10 5-15 [facility] Work Phone: Thin prep Papanicolaou smear with manual screening 170 U/L 84-246 [facility] Work Phone: Urine creatinine measurement (mass/volume)on 01-17-2022 Creatinine (U) [Mass/Vol] 284.00 mg/dL NO RANGE EST. [facility] Work Phone: Urine protein measurement (m ass/volume)on 01-17-2022 Protein (U) [Mass/Vol] 67.9 mg/dL 0.0-11.8 [facility] Work Phone: Urine protein/creatinine mas s ratioon 01-17-2022 Protein/Creatinine (U) [Mass ratio] 239 mg/g CRE 0-200 [facility] Work Phone: Quantitative serum or plasma 3 hour gestational glucose tolerance panelon 12-02-2021 Glucose tolerance 3 hours gestational panel See comment [facility] Work Phone: Comment on above: FASTING 93 [...] Auto (Unsp spec) [#/Vol] 1.13 10*3/uL 0.83-4.51 [facility] Work Phone: Basophil percentageon 2021 Basophils/100 WBC (Bld) 0.2 % 0-1 [facility] Work Phone: Eosinophils/100 WBC (Bld) 0.9 % 0-5 [facility] Work Phone: Neutrophils (Bld) [#/Vol] 4.2 10*3/uL 2.0-7.7 [facility] Work Phone: Neutrophils/100 WBC (Bld) 72.7 % 47-70 [facility] Work Phone: [phone] WBC (Bld) [#/Vol] 5.7 10*3/uL 4.4-11.0 [facility] Work Phone: Blood erythrocytes count (nu mber/volume)on 11-28-2021 RBC (Bld) [#/Vol] 4.16 10*6/uL 4.2-5.4 [facility] Work Phone: Blood hemoglobin measurement (mass/volume)on 11-28-2021 Hemoglobin (Bld) [Mass/Vol] 10.6 g/dL 12.0-15.0 [facility] Work Phone: Blood lymphocytes/100 leukoc yteson 11-28-2021 Lymphocytes/100 WBC (Bld) 19.7 % 19-41 [facility] Work Phone: Blood monocytes/100 leukocyt eson 11-28-2021 Monocytes/100 WBC (Bld) 6.3 % 0-10 [facility] Work Phone: Blood platelet mean volumeon 11-28-2021 Platelet mean volume (Bld) [Entitic vol] 12.0 fL 6.2-12.0 [facility] Work Phone: Determination of erythrocyte mean corpuscular volume (MCV)on 11-28-2021 MCV (RBC) [Entitic vol] 80.8 fL 81-99 [facility] Work Phone: Gestational diabetes screen 1-hour screen with 50g oral glucose loadon 11-28-2021 Glucose 1 Hr post 50 g glucose PO [Mass/Vol] 140 mg/dL 70-140 [facility] Work Phone: Hematocrit Auto (Bld) [Volum e fraction]on 11-28-2021 Hematocrit (Bld) [Volume fraction] 33.6 % 37-47 [facility] Work Phone: Laboratory - Hematology and Cell countson 11-28-2021 Erythrocyte distribution width (RBC) [Entitic vol] 41.0 fL 35.1-43.9 [facility] Work Phone: Erythrocyte distribution width (RBC) [Ratio] 14.1 % 11.6-14.6 [facility] Work Phone: Immature granulocytes/100 WBC (Bld) 0.200 % 0.0-0.9 [facility] Work Phone: Comment on above: IG% - Immature Granu locytes (promyelocytes, myelocytes and metamyelocytes) > 1% indicates that a LEFT SHIFT is Present. MCH (RBC) [Entitic mass] 25.5 pg 27.0-32.0 [facility] Work Phone: Nucleated RBC/100 WBC (Bld) [Ratio] 0 % 0-5 [facility] Work Phone: MCHC Auto (RBC) [Mass/Vol]on 11-28-2021 MCHC (RBC) [Mass/Vol] 31.5 g/dL 32-[address] [facility] Work Phone: Platelets bldon 11-28-2021 Platelets (Bld) [#/Vol] 214 10*3/uL 150-450 [facility] Work Phone: Bilirubin Test strip Ql (U)o n 11-26-2021 Bilirubin Ql (U) Negative Negative [facility] Work Phone: Ketones Test strip Ql (U)on 11-26-2021 Ketones Ql (U) 150 mg/dl Negative [facility] Work Phone: Comment on above: CRITICAL VALUE VERIF IED. CALLED TO KALI BATRES RN (WP)11/26/21 1836 Gagandeep Alcantar.RESULTS READ BACK BY SAME . CRITICAL VALUE *H Nitrite Test strip Ql (U)on 11-26-2021 Nitrite Ql (U) Negative Negative [facility] Work Phone: Protein Test strip Ql (U)on 11-26-2021 Protein Ql (U) 15 mg/dl Negative [facility] Work Phone: Urine blood detectionon RBC Ql (U) 50 /ul Negative [facility] Work Phone: Urine clarityon 11-26-2021 Clarity (U) Cloudy Clear [facility] Work Phone: Urine color determinationon 11-26-2021 Color (U) Yellow Yellow [facility] Work Phone: Urine glucose detectionon Glucose Ql (U) Normal mg/dl Normal [facility] Work Phone: Urine leukocyte esterase det ection by dipstickon 11-26-2021 Leukocyte esterase Test strip Ql (U) 500 /ul Negative [facility] Work Phone: Urine pHon 11-26-2021 pH (U) 6.5 [pH] 5.0 - 8.0 [facility] Work Phone: Urine specific gravity measu rementon 11-26-2021 Specific gravity (U) [Rel density] 1.015 1.002-1.030 [facility] Work Phone: Urobilinogen Auto test strip Ql (U)on 11-26-2021 Urobilinogen Ql (U) 1 mg/dl Normal [facility] Work Phone: [phone] Gestational diabetes screen 1-hour screen with 50g oral glucose loadon 09-13-2021 Glucose 1 Hr post 50 g glucose PO [Mass/Vol] 102 mg/dL 70-140 [facility] Work Phone: Absolute lymphocyte counton 08-23-2021 Lymphocytes Auto (Unsp spec) [#/Vol] 1.47 10*3/uL 0.83-4.51 [facility] Work Phone: Basophil percentageon 2021 Basophils/100 WBC (Bld) 0.2 % 0-1 [facility] Work Phone: Eosinophils/100 WBC (Bld) 0.9 % 0-5 [facility] Work Phone: Neutrophils (Bld) [#/Vol] 4.4 10*3/uL 2.0-7.7 [facility] Work Phone: [phone] Neutrophils/100 WBC (Bld) 69.4 % 47-70 [facility] Work Phone: [phone] WBC (Bld) [#/Vol] 6.3 10*3/uL 4.4-11.0 [facility] Work Phone: Blood erythrocytes count (nu mber/volume)on 08-23-2021 RBC (Bld) [#/Vol] 4.81 10*6/uL 4.2-5.4 [facility] Work Phone: Blood hemoglobin measurement (mass/volume)on 08-23-2021 Hemoglobin (Bld) [Mass/Vol] 12.7 g/dL 12.0-15.0 [facility] Work Phone: Blood lymphocytes/100 leukoc yteson 08-23-2021 Lymphocytes/100 WBC (Bld) 23.2 % 19-41 [facility] Work Phone: Blood monocytes/100 leukocyt eson 08-23-2021 Monocytes/100 WBC (Bld) 5.8 % 0-10 [facility] Work Phone: Blood platelet mean volumeon 08-23-2021 Platelet mean volume (Bld) [Entitic vol] 12.5 fL 6.2-12.0 [facility] Work Phone: Chlamydia trachomatis rRNA d etection by probe and target amplification methodon 08-23-2021 C. trachomatis rRNA LIANA+probe Ql (Unsp spec) Negative Negative [facility] Work Phone: Determination of erythrocyte mean corpuscular volume (MCV)on 08-23-2021 MCV (RBC) [Entitic vol] 81.5 fL 81-99 [facility] Work Phone: HIV 1 and HIV-2 antibody ass ay with HIV-1 p24 antigen detectionon 08-23-2021 HIV 1+2 Ab+HIV1 p24 Ag IA Ql Non-Reactive Nonreactive [facility] Work Phone: Hematocrit Auto (Bld) [Volum e fraction]on 08-23-2021 Hematocrit (Bld) [Volume fraction] 39.2 % 37-47 [facility] Work Phone: Laboratory - Hematology and Cell countson 08-23-2021 Erythrocyte distribution width (RBC) [Entitic vol] 39.9 fL 35.1-43.9 [facility] Work Phone: Erythrocyte distribution width (RBC) [Ratio] 13.7 % 11.6-14.6 [facility] Work Phone: Immature granulocytes/100 WBC (Bld) 0.500 % 0.0-0.9 [facility] Work Phone: Comment on above: IG% - Immature Granu locytes (promyelocytes, myelocytes and metamyelocytes) > 1% indicates that a LEFT SHIFT is Present. MCH (RBC) [Entitic mass] 26.4 pg 27.0-32.0 [facility] Work Phone: Nucleated RBC/100 WBC (Bld) [Ratio] 0 % 0-5 [facility] Work Phone: Laboratory - Microbiology an d Antimicrobial susceptibilityon 08-23-2021 N. gonorrhoeae DNA LIANA+probe Ql (Unsp spec) Negative Negative [facility] Work Phone: Comment on above: Performed at: =G - L [address] [id number] Director: Theresa Gomez MD, Phone: [phone] MCHC Auto (RBC) [Mass/Vol]on 08-23-2021 MCHC (RBC) [Mass/Vol] 32.4 g/dL 32-[address] [facility] Work Phone: No Panel Informationon 08-23 Hepatitis B Surface Antigen Non-Reactive Nonreactive [facility] Work Phone: Hepatitis C Antibody Non-Reactive Nonreactive [facility] Work Phone: Comment on above: Non Reactive: < 0.8 Equivocal: >/= 0.8 to < 1.0 Reactive: >/= 1.0The CDC recommends that a reactive/equivocal HCV antibody result be followed up by the HCV Nucleic Acid Amplificationtest (785877) Miscellaneous Test See comment [facility] Work Phone: Comment on above: [facility]. Rubella IgG Antibody Reactive Nonreactive [facility] Work Phone: Comment on above: Antibody Results Int erpretation of Immune Status Non Reactive Presumed Non-Immune Equivocal Equivocal Reactive Presumed Immune Platelets bldon 08-23-2021 Platelets (Bld) [#/Vol] 247 10*3/uL 150-450 [facility] Work Phone: Serum Treponema species anti body detectionon 08-23-2021 Treponema sp Ab Ql (S) Non-Reactive [facility] Work Phone: Serum or plasma choriogonado tropin detectionon 07-02-2021 HCG ( test) Ql 79 mIU/mL <4 [facility] Work Phone: Comment on above: hCG levels with Gest ational AgeGestational Age hCG mIU/mL (IU/L)0.2 - 1 week 5 - 501-2 weeks 50 - 5002-3 weeks 100 - 20460-1 weeks 500 - 256513-0 weeks 1000 - 077852-8 weeks 07064 - 100,0006-8 weeks 77962 - 200,0002-3 months 26433 - 100,000 Serum or plasma choriogonado tropin detectionon 06-30-2021 HCG ( test) Ql 33 mIU/mL <4 [facility] Work Phone: Comment on above: hCG levels with Gest ational AgeGestational Age hCG mIU/mL (IU/L)0.2 - 1 week 5 - 501-2 weeks 50 - 5002-3 weeks 100 - 74989-1 weeks 500 - 030365-1 weeks 1000 - 000555-5 weeks 76042 - 100,0006-8 weeks 22226 - 200,0002-3 months 30456 - 100,000 Serum or plasma progesterone measurement (mass/volume)on 06-28-2021 Progesterone [Mass/Vol] 17.58 ng/mL See Comment [facility] Work Phone: Comment on above: Progesterone Referen ce Table: UNITS Female: Follicular 0.15 - 1.40 ng/mL Luteal 3.34 - 25.56 ng/mL Mid-luteal 4.44 - 28.03 ng/mL Postmenopausal 0.0 - 0.73 ng/mL : 1st Trimester 11.22 - 90.00 ng/mL 2nd Trimester 25.55 - 89.40 ng/mL 3rd Trimester 48.40 -422.50 ng/mL Serum or plasma progesterone measurement (mass/volume)on 05-30-2021 Progesterone [Mass/Vol] 11.73 ng/mL See Comment [facility] Work Phone: Comment on above: Progesterone Referen ce Table: UNITS Female: Follicular 0.15 - 1.40 ng/mL Luteal 3.34 - 25.56 ng/mL Mid-luteal 4.44 - 28.03 ng/mL Postmenopausal 0.0 - 0.73 ng/mL : 1st Trimester 11.22 - 90.00 ng/mL 2nd Trimester 25.55 - 89.40 ng/mL 3rd Trimester 48.40 -422.50 ng/mL Absolute lymphocyte counton 02-22-2021 Lymphocytes Auto (Unsp spec) [#/Vol] 1.70 10*3/uL 0.83-4.51 [facility] Work Phone: Basophil percentageon 2021 Basophils/100 WBC (Bld) 0.6 % 0-1 [facility] Work Phone: Chloride [Moles/Vol] 101 mmol/L 98-107 [facility] Work Phone: Eosinophils/100 WBC (Bld) 2.4 % 0-5 [facility] Work Phone: Glucose [Mass/Vol] 95 mg/dL 74-106 [facility] Work Phone: Comment on above: Please note revised GLUCOSE reference range effective 2017. Neutrophils (Bld) [#/Vol] 4.3 10*3/uL 2.0-7.7 [facility] Work Phone: Neutrophils/100 WBC (Bld) 65.0 % 47-70 [facility] Work Phone: Potassium [Moles/Vol] 3.8 mmol/L 3.5-5.[address] [facility] Work Phone: Sodium [Moles/Vol] 140 mmol/L 136-145 [facility] Work Phone: WBC (Bld) [#/Vol] 6.6 10*3/uL 4.4-11.0 [facility] Work Phone: Blood erythrocytes count (nu mber/volume)on 02-22-2021 RBC (Bld) [#/Vol] 5.59 10*6/uL 4.2-5.4 [facility] Work Phone: [phone] Blood hemoglobin measurement (mass/volume)on 02-22-2021 Hemoglobin (Bld) [Mass/Vol] 13.9 g/dL 12.0-15.0 [facility] Work Phone: Blood lymphocytes/100 leukoc yteson 02-22-2021 Lymphocytes/100 WBC (Bld) 25.8 % 19-41 [facility] Work Phone: Blood monocytes/100 leukocyt eson 02-22-2021 Monocytes/100 WBC (Bld) 5.9 % 0-10 [facility] Work Phone: Blood platelet mean volumeon 02-22-2021 Platelet mean volume (Bld) [Entitic vol] 12.1 fL 6.2-12.0 [facility] Work Phone: Determination of erythrocyte mean corpuscular volume (MCV)on 02-22-2021 MCV (RBC) [Entitic vol] 79.8 fL 81-99 [facility] Work Phone: Hematocrit Auto (Bld) [Volum e fraction]on 02-22-2021 Hematocrit (Bld) [Volume fraction] 44.6 % 37-47 [facility] Work Phone: Laboratory - Chemistry and C hemistry - challengeon 02-22-2021 CO2 [Moles/Vol] 30.0 mmol/L 21.0-32.0 [facility] Work Phone: Urea nitrogen/Creatinine [Mass ratio] 14.3 mg/mg 10-20 [facility] Work Phone: Laboratory - Hematology and Cell countson 02-22-2021 Erythrocyte distribution width (RBC) [Entitic vol] 40.1 fL 35.1-43.9 [facility] Work Phone: Erythrocyte distribution width (RBC) [Ratio] 13.9 % 11.6-14.6 [facility] Work Phone: Immature granulocytes/100 WBC (Bld) 0.300 % 0.0-0.9 [facility] Work Phone: Comment on above: IG% - Immature Granu locytes (promyelocytes, myelocytes and metamyelocytes) > 1% indicates that a LEFT SHIFT is Present. MCH (RBC) [Entitic mass] 24.9 pg 27.0-32.0 [facility] Work Phone: Nucleated RBC/100 WBC (Bld) [Ratio] 0 % 0-5 [facility] Work Phone: Laboratory - Microbiology an d Antimicrobial susceptibilityon 02-22-2021 SARS-CoV-2 (COVID-19) RNA LIANA+probe Ql (Unsp spec) Not detected Not Detect [facility] Work Phone: Comment on above: Normal Reference Ran ge: Not DetectedMethod:(RT-PCR) real-time reverse transcriptase PCRLuminex Vitaldent Instrument*The Food and Drug Administration (FDA) has issued an Emergency Use Authorization (EAU) for the Vitaldent SARS-CoV-2 Assay for the rapid detection of [...] 02-22-2021 MCHC (RBC) [Mass/Vol] 31.2 g/dL 32-[address] [facility] Work Phone: No Panel Informationon 02-22 D-Dimer Quantitative (PE/DVT) < 0.27 FEU/ug/m 0.27-0.49 [facility] Work Phone: Comment on above: NORMAL D-Dimer level (<0.50) indicates no DVT or PE. Estimated Creatinine Clearance Calc 111.44 ml/min [facility] Work Phone: Estimated GFR (MDRD) Amer 120 mL/min >60 [facility] Work Phone: Comment on above: GFR Calc Estimated GFR (MDRD) Non-Af Amer 100 mL/min >60 [facility] Work Phone: Comment on above: Non- GFR Calc Troponin I High Sensitivity 6 pg/mL 3.0-54.0 [facility] Work Phone: Comment on above: Please Note: New Dionne t Units and Gender Specific Reference Ranges. For more information see Policy Stat Procedure [place] High Sensitivity Troponin (TNIH) and attachments. Influenza Types A,B Direct FA (ARLYN) [facility] Work Phone: Platelets bldon 02-22-2021 Platelets (Bld) [#/Vol] 269 10*3/uL 150-450 [facility] Work Phone: Serum or plasma calcium benita urement (mass/volume)on 02-22-2021 Calcium [Mass/Vol] 9.8 mg/dL 8.5-10.1 [facility] Work Phone: Serum or plasma creatinine m easurement (mass/volume)on 02-22-2021 Creatinine [Mass/Vol] 0.77 mg/dL 0.55-1.02 [facility] Work Phone: Comment on above: The validity of the calculated GFR & GFRAA in patients over 70 years has not been determined. Clinical correlation is essential. Serum or plasma urea nitroge n measurement (mass/volume)on 02-22-2021 Urea nitrogen [Mass/Vol] 11 mg/dL 7-18 [facility] Work Phone: Thin prep Papanicolaou smear with manual screeningon 02-22-2021 Thin prep Papanicolaou smear with manual screening 9 5-15 [facility] Work Phone: Inpatient Clinical Summaryon 12-25-2018 Inpatient Clinical Summary [address] [address] Clinical Summary Person Information Name: Juanita Murillo Age: 18 Years : 2000 Sex: Female PCP: Sara Walters CNP Marital Status: Phone: PCP: [phone] Race: White Ethnicity: Not or Language: Tajik Visit Id: Visit Reason: IUP Speciality: Acuity: PP Vag Enc Type: Inpatient Med Service: Gynecology-Obstetrics Arrival: 12/23/2018 06:51:16 Discharge: Dispo Type: Address: [place] [address] Diagnosis: ; Premature rupture of membranes Discharged [...] range between ( 28.0 and 42.0 ) [place] Auto: 7.8 % -- Normal range between [...] range between ( 36.0 and 46.0 ) [place] Absolute: 0.7 x10 MCH: 24.6 pg -- [...] Immunizations Documented This Visit New Medications [address] [place], [place] [id number], [phone] ibuprofen (ibuprofen 800 mg oral tablet) 800 Milligram Oral (given by mouth) every 8 hours. Refills: 0. Last Dose: __ No Longer Take the Following Medications acyclovir [...] Request Care Team Members: Attending Physician: Libertad Benjamin DO Consulting Physician: Referring Physician: Follow up: With: Address: When: [facility] [address] [place], [place] [id number] Comments: within 4-6 weeks Normal [facility] CBC w/ Diffon 12-24-2018 Erythrocyte distribution width (RBC) [Ratio] 15.5 % High 11.6-14.8 [facility] Comment on above: Performed By: #### C BC #### [facility] [address] [place] [address] Hematocrit (Bld) [Volume fraction] 28.5 % Low 36.0-46.0 [facility] Comment on above: Performed By: #### C BC #### [facility] [address] [place] [address] Hemoglobin (Bld) [Mass/Vol] 9.3 g/dL Low 12.0-16.0 [facility] Comment on above: Performed By: #### C BC #### [address] [address] MCH (RBC) [Entitic mass] 24.6 pg Low 27.0-35.0 [facility] Comment on above: Performed By: #### C BC #### [address] [address] MCHC (RBC) [Mass/Vol] 32.7 % Normal 31.0-37.0 [facility] Comment on above: Performed By: #### C BC #### [address] [address] MCV (RBC) [Entitic vol] 75.1 fL Low 80.0-100.0 [facility] Comment on above: Performed By: #### C BC #### [address] [address] Platelet mean volume (Bld) [Entitic vol] 10.8 fL High 6.7-10.6 [facility] Comment on above: Performed By: #### C BC #### [address] [address] Platelets (Bld) [#/Vol] 180 x10*3/mcL Normal 150-350 [facility] Comment on above: Performed By: #### C BC #### [address] [address] RBC (Bld) [#/Vol] 3.79 x10*6/mcL Low 3.80-5.20 [facility] Comment on above: Performed By: #### C BC #### [address] [address] WBC (Bld) [#/Vol] 9.1 x10*3/mcL Normal 4.5-11.0 [facility] Comment on above: Performed By: #### C BC #### [address] [place] [address] Diff Autoon 12-24-2018 Baso Absolute 0.0 x10*3/mcL Normal 0.0-0.2 [facility] Comment on above: Performed By: #### . Automated Diff #### [address] [address] Basophils/100 WBC (Bld) 0.3 % Normal 0.0-1.5 B [facility] Comment on above: Performed By: #### . Automated Diff #### [address] [address] Eos Absolute 0.0 x10*3/mcL Normal 0.0-0.4 [facility] Comment on above: Performed By: #### . Automated Diff #### [address] [address] Eosinophils/100 WBC (Bld) 0.2 % Normal 0.0-5.4 [facility] Comment on above: Performed By: #### . Automated Diff #### [address] [address] Lymphocytes (Bld) [#/Vol] 1.7 x10*3/mcL Normal 1.2-5.2 [facility] Comment on above: Performed By: #### . Automated Diff #### [address] [address] Lymphocytes/100 WBC (Bld) 18.3 % Low 28.0-42.0 [facility] Comment on above: Performed By: #### . Automated Diff #### [address] [address] [place] Absolute 0.7 x10*3/mcL Normal 0.1-1.1 [facility] Comment on above: Performed By: #### . Automated Diff #### [address] [address] Monocytes/100 WBC (Bld) 7.8 % Normal 3.7-11.9 [facility] Comment on above: Performed By: #### . Automated Diff #### [address] [place] [address] Neutro Absolute 6.7 x10*3/mcL Normal 1.8-8.0 [facility] Comment on above: Performed By: #### . Automated Diff #### [address] [address] Neutro Auto 73.4 % High 45.6-68.4 [facility] [facility] Comment on above: Performed By: #### . Automated Diff #### [address] [address] Obstetrics Progress Noteon 1 02-23-2018 Obstetrics Progress Note Patient: Juanita Murillo Age: 18 years Sex: Female : 2000 Associated Diagnoses: None Author: Nai Marcos CNM Progress Note S: Patient doing well s/p vaginal delivery. medications and comfort measures effective - pain controlled. Patient is tolerating a regular diet. She is ambulating and voiding without difficulty. Infant is in SCN. O: Vital signs are [...] Patient is pumping to promote . Abdomen: soft/non-tender/non-dis tended; Fundus is firm and below the umbilicus. Extremities: non-tender/mild edema A: Normal/stable course. P: Routine supportive care. Electronically signed by ___ Priti Nai SAMANO 12/24/18 09:32 EST Normal [facility] CBC w/ Diffon 12-23-2018 Erythrocyte distribution width (RBC) [Ratio] 15.5 % High 11.6-14.8 [facility] Comment on above: Performed By: #### C BC #### [address] [address] Hematocrit (Bld) [Volume fraction] 32.2 % Low 36.0-46.0 [facility] Comment on above: Performed By: #### C BC #### [address] [address] Hemoglobin (Bld) [Mass/Vol] 10.7 g/dL Low 12.0-16.0 [facility] Comment on above: Performed By: #### C BC #### [address] [address] MCH (RBC) [Entitic mass] 24.3 pg Low 27.0-35.0 [facility] Comment on above: Performed By: #### C BC #### [address] [address] MCHC (RBC) [Mass/Vol] 33.1 % Normal 31.0-37.0 [facility] Comment on above: Performed By: #### C BC #### [address] [address] MCV (RBC) [Entitic vol] 73.5 fL Low 80.0-100.0 [facility] Comment on above: Performed By: #### C BC #### [address] [address] Platelet mean volume (Bld) [Entitic vol] 10.4 fL Normal 6.7-10.6 [facility] Comment on above: Performed By: #### C BC #### [address] [address] Platelets (Bld) [#/Vol] 196 x10*3/mcL Normal 150-350 [facility] Comment on above: Performed By: #### C BC #### [address] [address] RBC (Bld) [#/Vol] 4.38 x10*6/mcL Normal 3.80-5.20 [facility] Comment on above: Performed By: #### C BC #### [address] [address] WBC (Bld) [#/Vol] 6.8 x10*3/mcL Normal 4.5-11.0 [facility] Comment on above: Performed By: #### C BC #### [address] [address] Diff Autoon 12-23-2018 Baso Absolute 0.0 x10*3/mcL Normal 0.0-0.2 [facility] Comment on above: Performed By: #### . Automated Diff #### [address] [address] Basophils/100 WBC (Bld) 0.4 % Normal 0.0-1.5 [facility] Comment on above: Performed By: #### . Automated Diff #### [address] [address] Eos Absolute 0.1 x10*3/mcL Normal 0.0-0.4 [facility] Comment on above: Performed By: #### . Automated Diff #### [address] [address] Eosinophils/100 WBC (Bld) 1.4 % Normal 0.0-5.4 [facility] Comment on above: Performed By: #### . Automated Diff #### [address] [address] Lymphocytes (Bld) [#/Vol] 1.4 x10*3/mcL Normal 1.2-5.2 [facility] Comment on above: Performed By: #### . Automated Diff #### [address] [address] Lymphocytes/100 WBC (Bld) 20.1 % Low 28.0-42.0 [facility] Comment on above: Performed By: #### . Automated Diff #### [address] [address] [place] Absolute 0.5 x10*3/mcL Normal 0.1-1.1 [facility] Comment on above: Performed By: #### . Automated Diff #### [address] [address] Monocytes/100 WBC (Bld) 7.4 % Normal 3.7-11.9 B [facility] Comment on above: Performed By: #### . Automated Diff #### [address] [address] Neutro Absolute 4.8 x10*3/mcL Normal 1.8-8.0 [facility] Comment on above: Performed By: #### . Automated Diff #### [address] [address] Neutro Auto 70.7 % High 45.6-68.4 [facility] Comment on above: Performed By: #### . Automated Diff #### [address] [address] History and Physicalon 12-23 History and Physical [...] / AZEGxwEmLzUcjdGfwKgAAg / Confirmed Hay fever / [id number] / Confirmed Depression / [id number] / Confirmed Excessive growth of facial hair / [id number] / Confirmed Polycystic ovary syndrome / [id number] / Confirmed / [id number] / Confirmed Histories History History (0,0,0,0) No previous pregnancies history have been recorded Family History: Diabetes mellitus Mother History Lab from flowsheet 12/23/2018 8:37 EST WBC 6.8 x10 RBC 4.38 x10 Hgb 10.7 g/dL LOW Hct 32.2 % LOW MCV 73.5 fL LOW MCH 24.3 pg LOW MCHC 33.1 % RDW 15.5 % HI Platelet 196 x10 MPV 10.4 fL Neutro Auto 70.7 % HI Lymph Auto 20.1 % LOW [place] Auto 7.4 % Eos Auto 1.4 % Basophil Auto 0.4 % Neutro Absolute 4.8 x10 Lymph Absolute 1.4 x10 [place] Absolute 0.5 x10 Eos Absolute 0.1 x10 [...] 1.016 UA pH 6.0 Procedure history: Tonsillectomy ([id number]). Lazy Eye Repair. Comments: 12/31/2015 13:17 EST - Edilma Moreira Left foot surgery. Comments: 05/02/2017 13:03 EDLindsey Ziegler right foot-remove a piece glass REVISION OF NOSE (14141). Comments: 05/02/2017 13:21 VAMSIRosamaria Hobsonkinsey Lindsey Marlyn deviated septum repair Physical Examination VS/Measurements Vital [...] Normal range of motion. Integumentary: Warm, Dry, [place]. Neurologic: Alert, Oriented. Psychiatric: Cooperative, Appropriate mood & affect. Impression and Plan Diagnosis (KUS15-DQ Z33.1, Discharge, Medical). Premature rupture of membranes (ACJ64-RL O42, Discharge, Medical). condition: Reassuring heart rate. Maternal condition: Stable. Plan Admit. Diagnosis (TZB76-SA Z33.1, Discharge, Medical). Premature rupture of membranes (XGR64-DA O42, Discharge, Medical). Course: Progressing as expected. Education and Follow-up: Counseled: Patient, Family. Discharge Planning: Plan to discharge ( To home, In 2 days ). Electronically signed by ___ Libertad Benjamin DO 12/23/18 14:58 EST Normal [facility] Obstetrics Progress Noteon 1 02-22-2018 Obstetrics Progress Note Patient: Juanita Murillo Age: [...] Review: Problems (Active Problems Only) (SNOMED CT: 994133902, Onset: 04/12/18) Allergic rhinitis caused by pollens (SNOMED CT: 6866788295, Onset: --) ADHD (SNOMED CT: AZEGxwEmLzUcjdGfwKgAAg, Onset: --) Polycystic ovary syndrome (SNOMED CT: [id number], Onset: --) Depression (SNOMED CT: 760347324, Onset: --) Excessive growth of facial hair (SNOMED CT: 272665665, Onset: --) Premature rupture of membranes (SNOMED CT: AZEGxwEmLzUcjSUGwKgAAg, Onset: --) Delivery Summary A Membrane Status Information ROM Type: Spontaneous rupture of membranes Amniotic Fluid Color/Description: Thin meconium Labor Information 2nd Stage Onset Date/Time: 12/23/18 16:34:00 Monitoring FHR Monitoring Method: scalp electrode . Vaginal delivery procedure Performed by: back tender insulation board. Indication for delivery: labor progression augmented. Informed consent obtained: for anesthesia, for procedure. Anesthesia method: epidural. Medication prior to procedure: as documented on medication administration record. Monitoring during procedure: blood pressure monitoring, monitor, pulse oximetry. Sterile preparation of site: in usual fashion. Position: birthing bed. Rupture of membranes: moderate amount of fluid, appearance of fluid clear, spontaneous. Delivery of infant: uneventful. Status of Viable Gender: male. Cord blood: blood gases obtained. Umbilical cord: three vessels. Personnel present at resuscitation: Side Boss. Placenta: delivery spontaneous, intact. Uterus: hemostasis. Procedure tolerated: well. Complications Maternal: no complications. Narvaez/ Baby A: respiratory distress. Impression and Plan Vaginal Delivery: condition: Stable. Maternal condition: Stable. Diagnosis (IPI11-TK Z33.1, Discharge, Medical). Premature rupture of membranes (WSD32-CJ O42, Discharge, Medical). Course: Progressing as expected. Electronically signed by ___ TahminaLibertad Lynn DO [place] 12/23/18 17:40 EST Normal [facility] Surgical Pathology Reporton 12-23-2018 Surgical Pathology [...] trimester placenta (529 grams), with moderate calcifications. [id number] NATE Garcia MD PhD (Electronically signed by) Verified: 12/25/18 15:28 Normal [facility] Comment on above: Performed By: #### . Automated Diff #### [place] [address] UDS OB/Con 12-23-2018 Creatinine [Mass/Vol] 388.4 mg/dL Normal [facility] Comment on above: Performed By: #### C [id number] #### [address] [address] Ur Amph Scrn w/Conf Negative Normal NEG = <1000 [facility] Comment on above: Performed By: #### C D:[id number] #### [address] [address] Ur Shauna Scrn w/Conf Negative Normal NEG = <200 [facility] Comment on above: Performed By: #### C D:[id number] #### [address] [address] Ur Benzodia Scrn w/Conf Negative Normal NEG = <200 B [facility] Comment on above: Performed By: #### C D:[id number] #### [address] [address] Ur Cannab Scrn w/Conf Negative Normal NEG = <50 [facility] Comment on above: Performed By: #### C D:[id number] #### [address] [address] Ur Cocaine Scrn w/Conf Negative Normal NEG = <300 [facility] Comment on above: Performed By: #### C D:[id number] #### [address] [address] Ur Methadone Scrn w/Conf Negative Normal NEG = <300 [facility] Comment on above: Performed By: #### C D:[id number] #### [address] [place] [address] Ur Opiate Scrn w/Conf Negative Normal NEG = <300 [facility] Comment on above: Performed By: #### C [id number] #### [address] [address] Ur Oxy Screen w/Conf Negative Normal NEG = <100 [facility] Comment on above: Performed By: #### C D:[id number] #### [address] [address] Ur Oxy Scrn Qnt w/Confirm 25 ng/mL Normal <=99 [facility] Comment on above: Performed By: #### C D:[id number] #### [address] [place] [address] Ur PCP Scrn w/Conf Negative Normal NEG = <25 [facility] Comment on above: Performed By: #### C [id number] #### [address] [address] [employer] Machine Operator [place] QC [place] Yes Normal [facility] Comment on above: Performed By: #### C D:[id number] #### [address] [place] [address] Ur Buprenorphine Scrn w/Conf Negative Normal NEG = <10 [facility] Comment on above: Performed By: #### C [id number] #### [address] [address] UA pH 6.0 Normal 4.5 - 7.8 [facility] Comment on above: Performed By: #### C D:[id number] #### [address] [place] [address] UA Spec Grav 1.016 Normal 1.003-1.035 [facility] Comment on above: Performed By: #### C D:[id number] #### [address] [place] [address] Grp B PCRon 12-22-2018 Allergic to Penicillin? Unknown Normal B [facility] Comment on above: Result Comment: For antibiotic sensitivity, please contact the Laboratory to request anti-microbial susceptibility testing within 7 days of specimen collection. Performed By: #### C D:[id number] #### [place] [id number] Group B Strep PCR Negative Normal Negative [facility] Comment on above: Result Comment: No G roup B Strep nucleic acid detected. The AGELON ? GBS Assay is an automated nucleic acid [...] clindamycin is noted. Performed By: #### C D:[id number] #### [place] [id number] Otheron 07-12-2018 Interpretation and review of laboratory results Abnormal [facility] URINALYSIS, MACROon 07-13-19 19 Bilirubin Ql (U) SMALL Abnormal NEGATIVE [facility] Clarity (U) CLEAR CLEAR [facility] Color (U) YELLOW YELLOW [facility] Glucose Test strip (U) [Mass/Vol] Negative NEGATIVE mg/dl [facility] Hemoglobin Ql (U) Negative NEGATIVE [facility] Ketones (U) [Mass/Vol] 15 mg/dl Abnormal NEGATIVE [facility] Leukocyte esterase Test strip Ql (U) SMALL Abnormal NEGATIVE [facility] Nitrite Ql (U) Negative NEGATIVE [facility] pH (U) 6.0 [pH] [facility] Protein Ql (U) 30 mg/dl Abnormal NEGATIVE [facility] Specific gravity (U) [Rel density] 1.020 [facility] Urobilinogen (U) [Mass/Vol] 0.2 mg/dl 0.2 - 1 mg/dl [facility] URINE MACROSCOPICon 07-13-19 19 Bilirubin Ql (U) SMALL Abnormal NEGATIVE [facility] Clarity Nom (U) CLEAR Normal CLEAR [facility] Color Nom (U) YELLOW Normal YELLOW [facility] Glucose Ql (U) Negative Normal NEGATIVE [facility] pH (U) 6.0 [pH] Normal 5.0-7.0 [facility] Protein mass conc (U) 30 mg/dL Abnormal NEGATIVE [facility] URINE HEMOGLOBIN Negative Normal NEGATIVE [facility] URINE KETONE 15 mg/dl Abnormal NEGATIVE [facility] URINE LEUKOTEST SMALL Abnormal NEGATIVE [facility] URINE NITRATES Negative Normal NEGATIVE [facility] URINE SPEC GRAVITY 1.020 Normal 1.010-1.025 [facility] Urobilinogen Qn (U) 0.2 mg/dl Normal 0.2-1.0 [facility] URINE MICROSCOPICon 07-13-19 19 Bacteria LM.HPF #/area (Urine sed) 1+ Abnormal NEGATIVE [facility] Casts LM.LPF #/area (Urine sed) NONE Normal [facility] CRYSTAL NONE Normal [facility] Epithelial cells LM.HPF #/area (Urine sed) TOO NUMEROUS TO COUNT Normal [facility] Mucus Ql (Urine sed) Negative Normal NEGATIVE [facility] RBC #/vol (U) Negative Normal NEGATIVE [facility] URINE COMMENT POSSIBLY CONTAMINATE D SPECIMEN, CULTURE MUST BE ORDERED SEPARATELY IF DEEMED NECESSARY. Normal [facility] WBC #/vol (U) '5 TO 10 Normal NEGATIVE [facility] Bacteria LM.HPF (Urine sed) [#/Area] 1+ Abnormal NEGATIVE [facility] Casts LM.LPF (Urine sed) [#/Area] NONE NONE /LPF [facility] Crystals LM Nom (Urine sed) NONE NONE [facility] Epithelial cells LM Ql (Urine sed) TOO NUMEROUS TO COUNT /HPF [facility] Mucus Ql (Urine sed) Negative NEGATIVE [facility] RBC LM.HPF (Urine sed) [#/Area] Negative NEGATIVE /HPF [facility] Urine sediment comments LM [place] (Urine sed) POSSIBLY CONTAMINATED SPECIMEN, CULTURE MUST BE ORDERED SEPARATELY IF DEEMED NECESSARY. [facility] WBC LM.HPF (Urine sed) [#/Area] '5 TO 10 NEGATIVE /HPF [facility] CHLAM/GC AMPLIFon 09-25-2017 CHLAMYDIA NUC. AMP Positive Abnormal Negative [facility] GONOCOCCUS NUC. AMP Negative Normal Negative [facility] Comment on above: Result Comment: [facility] HCG QUALon 09-20-2017 HCG.beta subunit ( test) Ql (U) Negative Normal [facility] Comment on above: Performed By: #### U HCGT #### Testing performed at [address] [address] URINE MACROSCOPICon 09-21-19 18 Bilirubin Ql (U) Negative Normal NEGATIVE [facility] Comment on above: Performed By: #### U HCGT #### Testing performed at [place] [id number] Clarity Nom (U) CLOUDY Abnormal CLEAR [facility] Comment on above: Performed By: #### U HCGT #### Testing performed at [address] [address] Color Nom (U) YELLOW Normal YELLOW [facility] Comment on above: Performed By: #### U HCGT #### Testing performed at [address] [address] Glucose Ql (U) Negative Normal NEGATIVE [facility] Comment on above: Performed By: #### U HCGT #### Testing performed at [place] [id number] pH (U) 6.0 [pH] Normal 5.0-7.0 [facility] Comment on above: Performed By: #### U HCGT #### Testing performed at [address] [address] Protein mass conc (U) 30 mg/dL Abnormal NEGATIVE [facility] Comment on above: Performed By: #### U HCGT #### Testing performed at [address] [address] URINE HEMOGLOBIN TRACE-LYSED Abnormal NEGATIVE [facility] Comment on above: Performed By: #### U HCGT #### Testing performed at [address] [address] URINE KETONE Negative Normal NEGATIVE [facility] Comment on above: Performed By: #### U HCGT #### Testing performed at [address] [address] URINE LEUKOTEST LARGE Abnormal NEGATIVE [facility] Comment on above: Performed By: #### U HCGT #### Testing performed at [address] [address] URINE NITRATES Negative Normal NEGATIVE [facility] Comment on above: Performed By: #### U HCGT #### Testing performed at [address] [address] URINE SPEC GRAVITY 1.025 Normal 1.010-1.025 [facility] Comment on above: Performed By: #### U HCGT #### Testing performed at [address] [address] Urobilinogen Qn (U) 0.2 mg/dl Normal 0.2-1.0 [facility] Comment on above: Performed By: #### U HCGT #### Testing performed at [address] [address] URINE MICROSCOPICon 09-21-19 18 Bacteria LM.HPF #/area (Urine sed) 2+ Abnormal NEGATIVE [facility] Comment on above: Performed By: #### U HCGT ####Testing performed at [address] [address] Casts LM.LPF #/area (Urine sed) NONE Normal NONE [facility] Comment on above: Performed By: #### U HCGT ####Testing performed at [address] [address] CRYSTAL NONE Normal NONE [facility] Comment on above: Performed By: #### U HCGT ####Testing performed at [address] [address] Epithelial cells LM.HPF #/area (Urine sed) TOO NUMEROUS TO COUNT Normal [facility] Comment on above: Performed By: #### U HCGT ####Testing performed at [address] [address] Mucus Ql (Urine sed) TRACE Abnormal NEGATIVE [facility] Comment on above: Performed By: #### U HCGT ####Testing performed at [address] [address] RBC #/vol (U) Negative Normal NEGATIVE [facility] Comment on above: Performed By: #### U HCGT ####Testing performed at [address] [address] URINE COMMENT POSSIBLY CONTAMINATE D SPECIMEN, CULTURE MUST BE ORDERED SEPARATELY IF DEEMED NECESSARY. Normal [facility] Comment on above: Performed By: #### U HCGT ####Testing performed at [address] [address] URINE OTHER SPERM Normal [facility] Comment on above: Performed By: #### U HCGT ####Testing performed at [address] [address] WBC #/vol (U) 20 TO 30 Normal NEGATIVE [facility] Comment on above: Performed By: #### U HCGT ####Testing performed at [address] [address] WET PREPon 09-20-2017 WET PREP SPECIMEN DESCRIPTION VAGINAL SPECIMEN WET PREP CLUE CELLS PRESENT * Result Note: NO YEAST SEEN * * Result Note: NO TRICH SEEN * * Result Note: VERIFIED BY DUP TESTING * REPORT STATUS 09/20/2017 * Result Note: FINAL * Normal [facility] Comment on above: Performed By: #### W ETP ####Testing performed at [address] [place] [address] URINE HCG QUALon 08-18-2017 HCG.beta subunit ( test) Ql (U) Negative Normal [facility] URINE MACROSCOPICon 08-19-19 18 Bilirubin Ql (U) Negative Normal NEGATIVE [facility] Clarity Nom (U) CLEAR Normal CLEAR [facility] Color Nom (U) YELLOW Normal YELLOW [facility] Glucose Ql (U) Negative Normal NEGATIVE [facility] pH (U) 7.0 [pH] Normal 5.0-7.0 [facility] Protein mass conc (U) Negative Normal NEGATIVE [facility] URINE HEMOGLOBIN Negative Normal NEGATIVE [facility] URINE KETONE Negative Normal NEGATIVE [facility] URINE LEUKOTEST TRACE Abnormal NEGATIVE [facility] URINE NITRATES Negative Normal NEGATIVE [facility] URINE SPEC GRAVITY 1.015 Normal 1.010-1.025 [facility] Urobilinogen Qn (U) 0.2 mg/dl Normal 0.2-1.0 [facility] URINE MICROSCOPICon 08-19-19 18 Bacteria LM.HPF #/area (Urine sed) TRACE Abnormal NEGATIVE [facility] Casts LM.LPF #/area (Urine sed) NONE Normal NONE [facility] CRYSTAL NONE Normal NONE [facility] Epithelial cells LM.HPF #/area (Urine sed) 10 TO 20 Normal [facility] Mucus Ql (Urine sed) Negative Normal NEGATIVE [facility] RBC #/vol (U) Negative Normal NEGATIVE [facility] URINE COMMENT POSSIBLY CONTAMINATE D SPECIMEN, CULTURE MUST BE ORDERED SEPARATELY IF DEEMED NECESSARY. Normal [facility] WBC #/vol (U) 1 TO 5 Normal NEGATIVE [facility] CBCon 08-09-2017 ABSOLUTE BAS 0.0 X10 Normal [facility] ABSOLUTE EOS 0.10 X10 Normal [facility] ABSOLUTE NEUTROPHIL COUNT 5.0 x10 Normal 1.0-7.0 [facility] Basophils/100 WBC (Bld) 0.6 % Normal 0.0-2.0 [facility] DTYPE AUTO DIFF Normal [facility] Eosinophils/100 WBC (Bld) 1.6 % Normal 0.0-11.0 [facility] Lymphocytes #/vol (Bld) 1.90 X10 Normal [facility] Lymphocytes/100 WBC (Bld) 24.5 % Normal 20.0-55.0 [facility] Monocytes #/vol (Bld) 0.6 X10 Normal [facility] Monocytes/100 WBC (Bld) 7.5 % Normal 0.0-10.0 [facility] Neutrophils/100 WBC (Bld) 65.8 % Normal 37.0-75.0 [facility] Erythrocyte distribution width Ratio (RBC) 13.7 % Normal 11.5-14.5 [facility] Hematocrit Volume Fraction (Bld) 40.0 % Normal 36.0-48.0 [facility] Hemoglobin mass conc (Bld) 13.4 g/dL Normal 12.0-16.0 [facility] MCH Entitic mass (RBC) 26.0 pg Normal 26.0-35.0 [facility] MCHC mass conc (RBC) 33.5 g/dL Normal 27.0-37.0 [facility] MCV Entitic volume (RBC) 77.7 fL Low 80.0-100.0 [facility] Platelet mean volume Entitic volume (Bld) 9.7 fL Normal 7.4-11.0 [facility] Platelets #/vol (Bld) 229 /cmm Normal 130.0-400.0 [facility] RBC #/vol (Bld) 5.14 /cmm Normal 4.0-5.4 [facility] WBC #/vol (Bld) 7.7 /cmm Normal 3.6-11.0 [facility] CHEM 7 FASTINGon 08-09-2017 Chloride molar conc 107 mmol/L Normal 98-107 [facility] CO2 molar conc 28 mmol/L Normal 22-30 [facility] Creatinine mass conc 0.7 mg/dL Normal 0.7-1.2 [facility] GFR/1.73 sq M predicted among non-blacks MDRD vol rate/area (S/P/Bld) Unable to calculate GFR due to inappropriate age/gender/creatinine value. Normal [facility] Glucose mass conc 109 mg/dL High 70-100 [facility] Comment on above: Result Comment: NORMAL <100 mg/dL PREDIABETES 101-126 mg/dL DIABETES 126 mg/dL or higher Potassium molar conc 3.9 mmol/L Normal 3.5-5.1 [facility] Sodium molar conc 144 mmol/L Normal 137-145 [facility] Urea nitrogen mass conc 9 mg/dL Normal 7-20 [facility] URINE HCG QUALon 08-09-2017 HCG.beta subunit ( test) Ql (U) Negative Normal [facility] URINE MACROSCOPICon 08-10-19 18 Bilirubin Ql (U) Negative Normal NEGATIVE [facility] Clarity Nom (U) HAZY Abnormal CLEAR [facility] Color Nom (U) YELLOW Normal YELLOW [facility] Glucose Ql (U) Negative Normal NEGATIVE [facility] pH (U) 6.0 [pH] Normal 5.0-7.0 [facility] Protein mass conc (U) Negative Normal NEGATIVE [facility] URINE HEMOGLOBIN Negative Normal NEGATIVE [facility] URINE KETONE Negative Normal NEGATIVE [facility] URINE LEUKOTEST SMALL Abnormal NEGATIVE [facility] URINE NITRATES Negative Normal NEGATIVE [facility] URINE SPEC GRAVITY 1.020 Normal 1.010-1.025 [facility] Urobilinogen Qn (U) 0.2 mg/dl Normal 0.2-1.0 [facility] URINE MICROSCOPICon 08-10-19 18 Bacteria LM.HPF #/area (Urine sed) 3+ Abnormal NEGATIVE [facility] Casts LM.LPF #/area (Urine sed) NONE Normal [facility] CRYSTAL OCCASIONAL Abnormal NONE [facility] Comment on above: Result Comment: QIUNTIN PHOUS URATES Epithelial cells LM.HPF #/area (Urine sed) 20 TO 30 Normal [facility] Mucus Ql (Urine sed) 1+ Abnormal NEGATIVE [facility] RBC #/vol (U) Negative Normal NEGATIVE [facility] URINE COMMENT POSSIBLY CONTAMINATE D SPECIMEN, CULTURE MUST BE ORDERED SEPARATELY IF DEEMED NECESSARY. Normal [facility] WBC #/vol (U) 10 TO 20 Normal NEGATIVE [facility] Aer C AND S- Throaton 2017 Aer C AND S- Throat See BelowAccession: [id number]: Throat throatProcedure: Hemolytic Strep Culture [p1]Collected: 04/14/2017 01:00 ESTReceived: 04/14/2017 17:59 ESTFINAL REPORTSVerified Date/Time: 04/15/2017 00:50 ESTNo Beta Hemolytic Streptococci isolatedPerforming Locationsp1: This test was performed at:[facility] Central Lab, CLIA #[id number], [address], [place], [address] [place] [address], [facility] Comment on above: Order Comment: Maryana medeiros Order: [id number] HCG, Serumon 04-14-2017 HCG Qn Negative [facility] Comment on above: Order Comment: [facility]i ng [facility], [address] [place], [place] [id number] Order: [id number] Result Comment: Note : This test provides only a presumptive diagnosisfor . If the HCG result is inconsistentwith clinical evidence, results should be confirmed withan alternative method, such as a quantitative HCG. Strep Screen w/Rfx Cultureon 04-14-2017 Strep Screen w/Rfx Culture Negative Normal Negative [facility] Comment on above: Order Comment: It is recommended that a negative Strep screen be followed with a throatculture.Testing performed at [facility], [address] [place], [place] [id number] Order: [id number] Culture, urine Bacteria identified Cx Nom (U) Positive [facility] Work Phone: Bacteria identified Cx Nom (U) Mixed Gram Pos & Gram Neg Org [facility] Work Phone: No Panel Information Group B Streptococcus Culture Group B Beta Streptococcus is not isolated. [facility] Work Phone: Vital Signs Date Time Vital Sign Value Performing Clinician Facility 11-24-2024 14:50-0400 Body height 170.[address] Tiffany Marks MD Work Phone: [facility] 11-24-2024 14:41-0400 Body mass index (BMI) [Ratio] 50.6 kg/m2 Dr. Tiffany Marks MD Work Phone: [facility] 11-24-2024 14:41-0400 Body weight 146.[address] Tiffany Marks MD Work Phone: [facility] 11-24-2024 14:41-0400 Diastolic blood pressure 72 mm[Hg] Dr. Tiffany Marks MD Work Phone: [facility] 11-24-2024 14:41-0400 Systolic blood pressure 119 mm[Hg] Dr. Tiffany Marks MD Work Phone: [facility] 10-30-2024 08:09-0400 Body height 170.18 cm MICHELLE MAST [employer] Work Phone: [facility] 10-30-2024 08:09-0400 Body mass index (BMI) [Ratio] 50.8 kg/m2 MICHELLE MAST [employer] Work Phone: [facility] 10-30-2024 08:09-0400 Body temperature 97.8 [degF] MICHELLE [employer]ST [employer] Work Phone: [facility] 10-30-2024 08:09-0400 Body weight 147.19 kg MICHELLE MAST [employer] Work Phone: [facility] 10-30-2024 08:09-0400 Diastolic blood pressure 65 mm[Hg] MICHELLE [employer]ST [employer] Work Phone: [facility] 10-30-2024 08:09-0400 Heart rate 93 /min MICHELLE [employer]ST [employer] Work Phone: [facility] 10-30-2024 08:09-0400 Respiratory rate 16 /min MICHELLE [employer] Work Phone: [facility] 10-30-2024 08:09-0400 SaO2% (BldA) [Mass fraction] 98 % MICHELLE [employer]ST [employer] Work Phone: [facility] 10-30-2024 08:09-0400 Systolic blood pressure 114 mm[Hg] MICHELLE [employer]ST [employer] Work Phone: [facility] 10-21-2024 14:55-0400 Body height 170.18 cm MICHELLE [employer]ST [employer] Work Phone: [facility] 10-21-2024 14:55-0400 Body mass index (BMI) [Ratio] 50.5 kg/m2 MICHELLE [employer] Work Phone: [facility] 10-21-2024 14:55-0400 Body weight 146.51 kg MICHELLE [employer]ST [employer] Work Phone: [facility] 10-21-2024 14:55-0400 Diastolic blood pressure 81 mm[Hg] MICHELLE [employer]ST [employer] Work Phone: [facility] 10-21-2024 14:55-0400 Respiratory rate 18 /min MICHELLE [employer]ST [employer] Work Phone: [facility] 10-21-2024 14:55-0400 Systolic blood pressure 120 mm[Hg] MICHELLE [employer]ST [employer] Work Phone: [facility] 10-14-2024 10:56-0400 Body height 170.18 cm MICHELLE [employer]ST [employer] Work Phone: [facility] 10-14-2024 10:56-0400 Body mass index (BMI) [Ratio] 50.7 kg/m2 MICHELLE [employer]ST [employer] Work Phone: [facility] 10-14-2024 10:56-0400 Body weight 146.99 kg MICHELLE [employer]ST [employer] Work Phone: [facility] 10-14-2024 10:56-0400 Diastolic blood pressure 80 mm[Hg] MICHELLE [employer]ST [employer] Work Phone: [facility] 10-14-2024 10:56-0400 Systolic blood pressure 123 mm[Hg] MICHELLE [employer]ST [employer] Work Phone: [facility] 09-18-2024 08:36-0400 Body height 170.18 cm MICHELLE [employer]ST [employer] Work Phone: [facility] 09-18-2024 08:36-0400 Diastolic blood pressure 71 mm[Hg] MICHELLE [employer] Work Phone: [facility] 09-18-2024 08:36-0400 Systolic blood pressure 114 mm[Hg] MICHELLE [employer] Work Phone: [facility] 09-05-2024 08:08-0400 Body height 170.18 cm MICHELLE [employer] Work Phone: [facility] 09-05-2024 08:08-0400 Body mass index (BMI) [Ratio] 50.4 kg/m2 MICHELLE [employer] Work Phone: [facility] 09-05-2024 08:08-0400 Body weight 146.11 kg MICHELLE [employer] Work Phone: [facility] 09-05-2024 08:08-0400 Diastolic blood pressure 78 mm[Hg] MICHELLE [employer] Work Phone: [facility] 09-05-2024 08:08-0400 Heart rate 88 /min MICHELLE [employer] Work Phone: [facility] 09-05-2024 08:08-0400 SaO2% (BldA) [Mass fraction] 96 % MICHELLE [employer] Work Phone: [facility] 09-05-2024 08:08-0400 Systolic blood pressure 116 mm[Hg] MICHELLE [employer]ST [employer] Work Phone: [facility] 09-01-2024 13:06-0400 Body height 170.18 cm MICHELLE [employer]ST [employer] Work Phone: [facility] 09-01-2024 12:58-0400 Body mass index (BMI) [Ratio] 49.7 kg/m2 MICHELLE [employer] Work Phone: [facility] 09-01-2024 12:58-0400 Body weight 144.01 kg MICHELLE [employer] Work Phone: [facility] 09-01-2024 12:58-0400 Diastolic blood pressure 84 mm[Hg] MICHELLE [employer] Work Phone: [facility] 09-01-2024 12:58-0400 Systolic blood pressure 128 mm[Hg] MICHELLE [employer]ST [employer] Work Phone: [facility] 08-13-2024 14:45-0400 Body height 170.18 cm MICHELLE [employer] Work Phone: [facility] 08-13-2024 14:45-0400 Body mass index (BMI) [Ratio] 50.5 kg/m2 MICHELLE [employer] Work Phone: [facility] 08-13-2024 14:45-0400 Body temperature 98.9 [degF] MICHELLE [employer] Work Phone: [facility] 08-13-2024 14:45-0400 Body weight 146.51 kg MICHELLE [employer]ST [employer] Work Phone: [facility] 08-13-2024 14:45-0400 Diastolic blood pressure 84 mm[Hg] MICHELLE [employer]ST [employer] Work Phone: [facility] 08-13-2024 14:45-0400 Heart rate 83 /min MICHELLE [employer]ST [employer] Work Phone: [facility] 08-13-2024 14:45-0400 Respiratory rate 18 /min MICHELLE [employer]ST [employer] Work Phone: [facility] 08-13-2024 14:45-0400 SaO2% (BldA) [Mass fraction] 96 % MICHELLE [employer]ST [employer] Work Phone: [facility] 08-13-2024 14:45-0400 Systolic blood pressure 120 mm[Hg] MICHELLE [employer]ST [employer] Work Phone: [facility] 07-30-2024 08:31-0400 Body height 170.18 cm MICHELLE [employer] Work Phone: [facility] 07-30-2024 08:31-0400 Body mass index (BMI) [Ratio] 49.7 kg/m2 MICHELLE [employer]ST [employer] Work Phone: [facility] 07-30-2024 08:31-0400 Body weight 144.01 kg MICHELLE [employer]ST [employer] Work Phone: [facility] 07-30-2024 08:31-0400 Diastolic blood pressure 80 mm[Hg] MICHELLE [employer]ST [employer] Work Phone: [facility] 07-30-2024 08:31-0400 Heart rate 98 /min MICHELLE [employer] Work Phone: [facility] 07-30-2024 08:31-0400 Respiratory rate 16 /min MICHELLE [employer] Work Phone: [facility] 07-30-2024 08:31-0400 SaO2% (BldA) [Mass fraction] 96 % MICHELLE [employer] Work Phone: [facility] 07-30-2024 08:31-0400 Systolic blood pressure 112 mm[Hg] MICHELLE [employer] Work Phone: [facility] 07-24-2024 10:45-0400 Body temperature 98.7 [degF] MICHELLE [employer] Work Phone: [facility] 07-24-2024 10:45-0400 Diastolic blood pressure 86 mm[Hg] MICHELLE [employer] Work Phone: [facility] 07-24-2024 10:45-0400 Heart rate 66 /min MICHELLE [employer] Work Phone: [facility] 07-24-2024 10:45-0400 Respiratory rate 16 /min MICHELLE [employer] Work Phone: [facility] 07-24-2024 10:45-0400 SaO2% (BldA) [Mass fraction] 98 % MICHELLE [employer] Work Phone: [facility] 07-24-2024 10:45-0400 Systolic blood pressure 122 mm[Hg] MICHELLE [employer] Work Phone: [facility] 07-24-2024 08:23-0400 Body height 170.18 cm MICHELLE [employer] Work Phone: [facility] 07-24-2024 08:23-0400 Body mass index (BMI) [Ratio] 49.8 kg/m2 MICHELLE [employer] Work Phone: [facility] 07-24-2024 08:23-0400 Body weight 144.33 kg MICHELLE [employer]ST [employer] Work Phone: [facility] 08-07-2023 11:42-[address] ZEYNEP MOURA MD [facility] 08-07-2023 11:42-0400 Body height [address] ZEYNEP MOURA MD [facility] 08-07-2023 11:42-0400 Body temperature 97.34 [degF] DR ZEYNEP MOURA MD [facility] 08-07-2023 11:42-0400 Body weight 118.[address] ZEYNEP MOURA MD [facility] 08-07-2023 11:42-0400 Diastolic Blood Pressure Non-Invasive 64 mm[Hg] DR ZEYNEP MOURA MD [facility] 08-07-2023 11:42-0400 Heart rate 85 /min DR ZEYNEP MOURA MD [facility] 08-07-2023 11:42-0400 Respiratory rate 16 /min DR ZEYNEP MOURA MD [facility] 08-07-2023 11:42-0400 Systolic Blood Pressure Non-Invasive 107 mm[Hg] DR ZEYNEP MOURA MD [facility] 06-26-2023 14:11-0400 Diastolic Blood Pressure Non-Invasive 67 mm[Hg] DR VALERIA SANTANA MD [facility] 06-26-2023 14:11-0400 Heart rate 72 /min DR VALERIA SANTANA MD [facility] 06-26-2023 14:11-0400 Respiratory rate 18 /min DR VALERIA SANTANA MD [facility] 06-26-2023 14:11-0400 Systolic Blood Pressure Non-Invasive 112 mm[Hg] DR VALERIA SANTANA MD [facility] 06-26-2023 12:07-0400 Body height 172.[address] VALERIA SANTANA MD [facility] 06-26-2023 12:07-0400 Body temperature 98.42 [degF] DR VALERIA SANTANA MD [facility] 06-26-2023 12:07-0400 Body weight [address] VALERIA SANTANA MD [facility] 06-26-2023 12:07-0400 Diastolic Blood Pressure Non-Invasive 73 mm[Hg] DR VALERIA SANTANA MD [facility] 06-26-2023 12:07-0400 Heart rate 98 /min DR VALERIA SANTANA MD [facility] 06-26-2023 12:07-0400 Respiratory rate 18 /min DR VALERIA SANTANA MD [facility] 06-26-2023 12:07-0400 Systolic Blood Pressure Non-Invasive 111 mm[Hg] DR VALERIA SANTANA MD [facility] 05-16-2023 17:55-0400 Diastolic Blood Pressure Non-Invasive 77 mm[Hg] IVANA LANGE MD [facility] 05-16-2023 17:55-0400 Heart rate 76 /min IVANA LANGE MD [facility] 05-16-2023 17:55-0400 Mean blood pressure 90 mm[Hg] IVANA LANGE MD [facility] 05-16-2023 17:55-0400 Respiratory rate 16 /min IVANA LANGE MD [facility] 05-16-2023 17:55-0400 Systolic Blood Pressure Non-Invasive 125 mm[Hg] IVANA LANGE MD [facility] 05-16-2023 16:45-0400 Body height 170.2 cm IVANA LANGE MD [facility] 05-16-2023 16:45-0400 Body temperature 98.42 [degF] IVANA LANGE MD [facility] 05-16-2023 16:45-0400 Body weight 127.3 kg IVANA LANGE MD [facility] 05-16-2023 16:45-0400 Diastolic Blood Pressure Non-Invasive 77 mm[Hg] IVANA LANGE MD [facility] 05-16-2023 16:45-0400 Heart rate 89 /min IVANA LANGE MD [facility] 05-16-2023 16:45-0400 Respiratory rate 18 /min IVANA LANGE MD [facility] 05-16-2023 16:45-0400 Systolic Blood Pressure Non-Invasive 114 mm[Hg] IVANA LANGE MD [facility] 04-03-2023 14:18-[address] BLAYNE DORAN MD [facility] 04-03-2023 14:18-0500 Body temperature 98.78 [degF] DR BLAYNE DORAN MD [facility] 04-03-2023 14:18-0500 Body weight 133.[address] BLAYNE DORAN MD [facility] 04-03-2023 14:18-0500 Diastolic Blood Pressure Non-Invasive 71 mm[Hg] DR BLAYNE DORAN MD [facility] 04-03-2023 14:18-0500 Heart rate 89 /min DR BLAYNE DORAN MD [facility] 04-03-2023 14:18-0500 Respiratory rate 18 /min DR BLAYNE DORAN MD [facility] 04-03-2023 14:18-0500 Systolic Blood Pressure Non-Invasive 105 mm[Hg] DR BLAYNE DORAN MD [facility] 02-22-2023 19:54-0500 Blood Pressure Cuff Size DR BLAYNE DORAN MD [facility] 02-22-2023 19:54-[address] BLAYNE DORAN MD [facility] 02-22-2023 19:54-[address] BLAYNE DORAN MD [facility] 02-22-2023 19:54-0500 Diastolic Blood Pressure Non-Invasive 71 mm[Hg] DR BLAYNE DORAN MD [facility] 02-22-2023 19:54-0500 Heart rate 64 /min DR BLAYNE DORAN MD [facility] 02-22-2023 19:54-0500 Respiratory rate 16 /min DR BLAYNE DORAN MD [facility] 02-22-2023 19:54-0500 Systolic Blood Pressure Non-Invasive 129 mm[Hg] DR BLAYNE DORAN MD [facility] 02-22-2023 15:01-0500 Body height 170.[address] BLAYNE DORAN MD [facility] 02-22-2023 15:01-0500 Body temperature 98.42 [degF] DR BLAYNE DORAN MD [facility] 02-22-2023 15:01-0500 Body weight [address] BLAYNE DORAN MD [facility] 02-22-2023 15:01-0500 Diastolic Blood Pressure Non-Invasive 79 mm[Hg] DR BLAYNE ODRAN MD [facility] 02-22-2023 15:01-0500 Heart rate 73 /min DR BLAYNE DORAN MD [facility] 02-22-2023 15:01-0500 Respiratory rate 18 /min DR BLAYNE DORAN MD [facility] 02-22-2023 15:01-0500 Systolic Blood Pressure Non-Invasive 121 mm[Hg] DR BLAYNE DORAN MD [facility] 02-09-2022 14:26-0500 Body temperature 97.4 [degF] [facility] Work Phone: 02-09-2022 14:26-0500 Diastolic blood pressure 66 mm[Hg] [facility] Work Phone: 02-09-2022 14:26-0500 Heart rate 85 /min [facility] Work Phone: 02-09-2022 14:26-0500 Respiratory rate 16 /min [facility] Work Phone: 02-09-2022 14:26-0500 SaO2% (BldA) [Mass fraction] 96 % [facility] Work Phone: 02-09-2022 14:26-0500 Systolic blood pressure 114 mm[Hg] [facility] Work Phone: 02-04-2022 15:31-0500 Body height 170.18 cm [facility] Work Phone: 02-04-2022 15:31-0500 Body mass index (BMI) [Ratio] 49.4 kg/m2 [facility] Work Phone: 02-04-2022 15:31-0500 Body weight 143.33 kg [facility] Work Phone: 01-28-2022 07:37-0500 SaO2% (BldA) [Mass fraction] 98 % [facility] Work Phone: 01-28-2022 07:36-0500 Body temperature 97.8 [degF] [facility] Work Phone: 01-28-2022 07:36-0500 Diastolic blood pressure 79 mm[Hg] [facility] Work Phone: 01-28-2022 07:36-0500 Heart rate 63 /min [facility] Work Phone: 01-28-2022 07:36-0500 Systolic blood pressure 133 mm[Hg] [facility] Work Phone: 01-27-2022 22:45-0500 Body height 170.18 cm [facility] Work Phone: 01-27-2022 22:45-0500 Body mass index (BMI) [Ratio] 49.1 kg/m2 [facility] Work Phone: 01-27-2022 22:45-0500 Body weight 142.14 kg [facility] Work Phone: 01-17-2022 16:11-0500 Diastolic blood pressure 76 mm[Hg] [facility] Work Phone: 01-17-2022 16:11-0500 Heart rate 69 /min [facility] Work Phone: 01-17-2022 16:11-0500 SaO2% (BldA) [Mass fraction] 96 % [facility] Work Phone: 01-17-2022 16:11-0500 Systolic blood pressure 118 mm[Hg] [facility] Work Phone: 01-17-2022 16:10-0500 Body temperature 98.4 [degF] [facility] Work Phone: 01-17-2022 15:25-0500 Body height 170.18 cm [facility] Work Phone: 01-17-2022 15:25-0500 Body mass index (BMI) [Ratio] 47.3 kg/m2 [facility] Work Phone: 01-17-2022 15:25-0500 Body weight 137.1 kg [facility] Work Phone: 11-26-2021 17:43-0400 Body height 170.18 cm [facility] Work Phone: 11-26-2021 17:43-0400 Body mass index (BMI) [Ratio] 43.9 kg/m2 [facility] Work Phone: 11-26-2021 17:43-0400 Body weight 127.3 kg [facility] Work Phone: 11-26-2021 17:26-0400 Diastolic blood pressure 64 mm[Hg] [facility] Work Phone: 11-26-2021 17:26-0400 Heart rate 90 /min [facility] Work Phone: 11-26-2021 17:26-0400 Systolic blood pressure 118 mm[Hg] [facility] Work Phone: 11-26-2021 17:25-0400 Body temperature 98.3 [degF] [facility] Work Phone: 02-22-2021 14:11-0500 Diastolic blood pressure 78 mm[Hg] [facility] Work Phone: 02-22-2021 14:11-0500 Heart rate 79 /min [facility] Work Phone: 02-22-2021 14:11-0500 SaO2% (BldA) [Mass fraction] 98 % [facility] Work Phone: 02-22-2021 14:11-0500 Systolic blood pressure 123 mm[Hg] [facility] Work Phone: 02-22-2021 11:57-0500 Respiratory rate 14 /min [facility] Work Phone: 02-22-2021 08:45-0500 Body height 170.18 cm [facility] Work Phone: 02-22-2021 08:45-0500 Body mass index (BMI) [Ratio] 46.5 kg/m2 [facility] Work Phone: 02-22-2021 08:45-0500 Body temperature 96.5 [degF] [facility] Work Phone: 02-22-2021 08:45-0500 Body weight 134.7 kg [facility] Work Phone: 07-12-2018 12:46-0400 Height 170.2 cm [facility] 07-12-2018 12:44-0400 Body Temperature 98.1 [degF] [facility] 07-12-2018 12:44-0400 BP Diastolic 64 mm[Hg] [facility] 07-12-2018 12:44-0400 BP Systolic 125 mm[Hg] [facility] 07-12-2018 12:44-0400 Pulse (Heart Rate) 100 /min [facility] 07-12-2018 12:44-0400 Pulse Oximetry 97 % [facility] 07-12-2018 12:44-0400 Respiratory Rate 18 /min [facility] 10-24-2017 14:40-0400 BMI (Body Mass Index) 39.68 kg/m2 [facility] 10-24-2017 14:40-0400 Body Temperature 98.71 [degF] [facility] 10-24-2017 14:40-0400 BP Diastolic 72 mm[Hg] [facility] 10-24-2017 14:40-0400 BP Systolic 105 mm[Hg] [facility] 10-24-2017 14:40-0400 Height 172.7 cm [facility] 10-24-2017 14:40-0400 Pulse (Heart Rate) 94 /min [facility] 10-24-2017 14:40-0400 Pulse Oximetry 96 % [facility] 10-24-2017 14:40-0400 Respiratory Rate 16 /min [facility] 10-24-2017 14:40-0400 Weight 118.39 kg [facility] Encounters Encounter Date Encounter Type Care Provider Facility Start: 12-04-2024 ambulatory Luis Dupreenoa Facility :[facility] Start: 12-03-2024 Encounter for other preprocedural examination Luis Pandya [facility] Start: 11-24-2024 End: 11-24-2024 Patient encounter procedure Simin BENITES -[facility] Work Phone: Start: 11-24-2024 End: 11-24-[address] Tiffany Marks MD Work Phone: -[facility] Start: 11-19-2024 End: 11-19-[address] Tiffany Marks MD Work Phone: -[facility] Start: 11-19-2024 End: 11-19-[address] Teresa Wilkinson MD -[facility] Work Phone: Start: 11-19-2024 End: 11-19-2024 ambulatory MICHELLE MAST Facility:[facility] Start: 10-30-2024 End: 10-30-2024 Patient encounter procedure Ashley BENITES -[facility] Work Phone: Start: 10-30-2024 End: 10-30-2024 ambulatory MICHELLE MAST [employer] Work Phone: -[facility] Start: 10-21-2024 End: 10-21-[address] Luis Pandya MD -[facility] Work Phone: Start: 10-21-2024 End: 10-21-2024 ambulatory MICHELLE MAST [employer] Work Phone: -[facility] Start: 10-15-2024 ambulatory Ashley Tracey ty:[facility] Start: 10-14-2024 End: 10-14-2024 Patient encounter procedure [facility]IT[facility] Work Phone: Start: 10-14-2024 End: 10-14-2024 ambulatory MICHELLE MAST [employer] Work Phone: -[facility] Start: 10-14-2024 End: 10-14-2024 ambulatory Roxanne De La Cruz Facility:[facility] Start: 09-19-2024 End: 09-19-2024 ambulatory MICHELLE MAST POLE FRAMER MACHINE Work Phone: -Ultrasound [facility] Start: 09-19-2024 End: 09-19-2024 Patient encounter procedure Simin Yu SLIP FEEDER-C -Ultrasound [facility] Work Phone: Start: 09-18-2024 End: 09-18-[address] Teresa Wilkinson MD -[facility] Work Phone: Start: 09-18-2024 End: 09-19-2024 ambulatory MICHELLE MAST POLE FRAMER MACHINE Work Phone: [facility] Start: 09-10-2024 End: 09-10-2024 ambulatory MICHELLE MAST POLE FRAMER MACHINE Work Phone: -Laboratory Start: 09-10-2024 End: 09-10-2024 Patient encounter procedure Ashley Larose SLIP FEEDER-C -Laboratory Work Phone: Start: 09-10-2024 End: 09-10-2024 ambulatory Ashley Larose Facility:[facility] Start: 09-05-2024 End: 09-05-2024 Patient encounter procedure Ashley Larose NP-C -[facility] Work Phone: Start: 09-05-2024 End: 09-05-2024 ambulatory MICHELLE MAST POLE FRAMER MACHINE Work Phone: -[facility] Start: 09-02-2024 End: 09-02-2024 ambulatory MICHELLE MAST POLE FRAMER MACHINE Work Phone: -Laboratory Start: 09-02-2024 End: 09-02-2024 Patient encounter procedure Ashley Larose SLIP FEEDER-C -Laboratory Work Phone: Start: 09-01-2024 End: 09-01-2024 Patient encounter procedure Simin Yu SLIP FEEDER-C -[facility] Work Phone: Start: 09-01-2024 End: 09-02-2024 ambulatory MICHELLE MAST POLE FRAMER MACHINE Work Phone: -[facility] Start: 08-13-2024 End: 08-13-[address] Tifafny Marks MD -[facility] Work Phone: Start: 08-13-2024 End: 08-13-2024 ambulatory MICHELLE MAST POLE FRAMER MACHINE Work Phone: [facility] Work Phone: Start: 08-05-2024 End: 08-05-2024 ambulatory MICHELLE MAST POLE FRAMER MACHINE Work Phone: [facility] Work Phone: Start: 08-05-2024 End: 08-05-2024 Patient encounter procedure Ashley BENITES -Ultrasound [facility] Work Phone: Start: 08-05-2024 End: 08-05-2024 ambulatory Tiffany Bessemer Facility:[facility] Start: 07-30-2024 End: 07-30-2024 ambulatory MICHELLE MAST POLE FRAMER MACHINE Work Phone: [facility] Work Phone: Start: 07-30-2024 End: 07-30-2024 Patient encounter procedure Ashley BENITES -Laboratory Work Phone: Start: 07-30-2024 End: 07-30-2024 Patient encounter procedure Ashley BENITES -[facility] Work Phone: Start: 07-30-2024 End: 07-30-2024 ambulatory MICHELLE MAST POLE FRAMER MACHINE Work Phone: [facility] Work Phone: Start: 07-29-2024 Registered Referred HEALTH RIS K ASSESSMENT -Laboratory Work Phone: Start: 07-29-2024 End: 07-30-2024 ambulatory Tiffany Bessemer Facility:[facility] Start: 07-24-2024 End: 07-24-2024 Emergency department patient visit MICHELLE MAST POLE FRAMER MACHINE Work Phone: -Emergency Department Work Phone: Start: 07-16-2024 End: 07-16-2024 ambulatory MICHELLE MAST POLE FRAMER MACHINE Work Phone: [facility] Work Phone: Start: 07-16-2024 End: 07-16-2024 Patient encounter procedure Libertad Carrillobobby SLIP FEEDER-C -Laboratory Work Phone: Start: 07-16-2024 End: 07-16-2024 ambulatory Libertadiggy Pate Facility:[facility] Start: 06-05-2024 Registered Referred HEALTH RIS K ASSESSMENT -Employee Health Start: 06-05-2024 ambulatory MICHELLE MAST Facility:[facility] Start: 06-05-2024 Registered Recurring EMPLOYEE HEALTH -Employee Health Start: 01-19-2024 End: 01-19-2024 ambulatory Libertad Pate Facility:[facility] Start: 01-15-2024 ambulatory MICHELLE MAST [facility] Start: 08-07-2023 End: 08-07-2023 Emergency department patient visit DR ZEYNEP MOURA MD [facility] Start: 2023 End: 2023 Patient encounter procedure SAYEDA DERIK EARLY MORNING BABYSITTER-DIRECTOR OF ACCOUNTS RECEIVABLE [facility] Start: 2023 End: 2023 ambulatory SAYEDA DERIK EARLY MORNING BABYSITTER-DIRECTOR OF ACCOUNTS RECEIVABLE Facility:[facility] Start: 07-02-2023 ambulatory SAYEDA DERIK EARLY MORNING BABYSITTER-DIRECTOR OF ACCOUNTS RECEIVABLE Facility:[facility] Start: 06-26-2023 End: 06-26-2023 Emergency department patient visit DR VALERIA SANTANA MD [facility] Start: 05-16-2023 End: 05-16-2023 Emergency department patient visit IVANA LANGE MD [facility] Start: 05-15-2023 End: 05-15-2023 ambulatory MICHELLE MAST EARLY MORNING BABYSITTER-DIRECTOR OF ACCOUNTS RECEIVABLE Facility:[facility] Start: 05-15-2023 End: 05-15-2023 Patient encounter procedure ARACELIS MORE EARLY MORNING BABYSITTER-DIRECTOR OF ACCOUNTS RECEIVABLE [facility] Start: 04-03-2023 End: 04-03-2023 Emergency department patient visit DR BLAYNE DORAN MD [facility] Start: 02-24-2023 End: 02-24-2023 ambulatory MICHELLE MAST EARLY MORNING BABYSITTER-DIRECTOR OF ACCOUNTS RECEIVABLE Facility:[facility] Start: 02-24-2023 End: 02-24-2023 Patient encounter procedure MICHELLE MAST EARLY MORNING BABYSITTER-DIRECTOR OF ACCOUNTS RECEIVABLE [facility] Start: 02-22-2023 End: 02-22-2023 Emergency department patient visit DR BLAYNE DORAN MD [facility] Start: 08-31-2022 End: 08-31-2022 ambulatory [facility] Work Phone: Start: 08-31-2022 End: 08-31-2022 Patient encounter procedure [facility]-Laboratory, Specimen Work Phone: Start: 02-04-2022 End: 02-09-2022 [facility] Start: 02-01-2022 End: 02-01-2022 ambulatory [facility] Work Phone: Start: 02-01-2022 End: 02-01-2022 Patient encounter procedure [facility]-Laboratory, [place] conveyor system dispatcher Off Start: 01-30-2022 End: 01-31-2022 Evaluation and management of inpatient WILLOW MOSCOSO [facility] Start: 01-28-2022 End: 01-31-2022 Evaluation and management of inpatient [facility] Start: 01-27-2022 End: 01-28-2022 ambulatory [facility] Work Phone: Start: 01-27-2022 End: 01-28-2022 Patient encounter procedure [facility] Start: 01-24-2022 End: 01-24-2022 ambulatory [facility] Work Phone: Start: 01-24-2022 End: 01-24-2022 Patient encounter procedure [facility]-Laboratory, [place] conveyor system dispatcher Off Start: 01-17-2022 End: 01-17-2022 ambulatory [facility] Work Phone: Start: 01-17-2022 End: 01-17-2022 Patient encounter procedure [facility] Out[facility] Start: 12-02-2021 End: 12-02-2021 ambulatory [facility] Work Phone: Start: 12-02-2021 End: 12-02-2021 [facility] [place] conveyor system dispatcher Off Start: 11-28-2021 End: 11-28-2021 ambulatory [facility] Work Phone: Start: 11-28-2021 End: 11-28-2021 [facility] [place] conveyor system dispatcher Off Start: 11-26-2021 End: 11-26-2021 Patient encounter procedure [facility] Start: 09-13-2021 End: 09-13-2021 Patient encounter procedure [facility]-Laboratory, [place] conveyor system dispatcher Off Start: 08-23-2021 End: 08-23-2021 Patient encounter procedure [facility]-Laboratory, [place] conveyor system dispatcher Off Start: 07-02-2021 End: 07-02-2021 Patient encounter procedure [facility]-Laboratory Start: 06-30-2021 End: 06-30-2021 Patient encounter procedure [facility]-Laboratory, [place] conveyor system dispatcher Off Start: 06-28-2021 End: 06-28-2021 Patient encounter procedure [facility]-Laboratory, [place] conveyor system dispatcher Off Start: 05-30-2021 End: 05-30-2021 Patient encounter procedure [facility]-Laboratory, [place] conveyor system dispatcher Off Start: 02-22-2021 End: 02-22-2021 Emergency department patient visit [facility]-Emergency Department Start: 07-12-2018 End: 07-12-2018 Emergency department patient visit Myron Suhas Morrison Work Phone: [facility] Emergency Medicine Start: 07-10-2018 Patient encounter procedure LIBERTAD LYNN Facility:[facility] Start: 10-25-2017 End: 10-29-2017 Patient encounter LYDIA HALL ZACK [facility] Start: 10-24-2017 End: 10-24-2017 Patient encounter SARAEVER CASTILLO NII [facility] Start: 10-24-2017 End: 10-24-2017 Office outpatient new 20 minutes Lydia Flynn Work Phone: [facility] [place] Comment on above: Diarrhea, unspecifie d type (Primary Dx) Start: 04-14-2017 End: 04-14-2017 Emergency department patient visit KORINA RAMIREZ Facility:[facility] Start: 04-12-2017 End: 04-12-2017 Emergency department patient visit WALTERSuhas BOYCE Facility:[facility] Procedures Date Procedure Procedure Detail Performing Clinician Start: 11-19-[address] Suhas Marks MD Work Phone: Start: 10-14-2024 Radionuclide study of abdomen MICHELLE MAST POLE FRAMER MACHINE Work Phone: Start: 09-19-2024 Pelvic echography KRIST A MAST POLE FRAMER MACHINE Work Phone: Start: 09-10-2024 CR measurement MICHELLE MAST POLE FRAMER MACHINE Work Phone: Comment on above: Performed at: [address] [id number] Director: Gilles Carey PhD, Phone: [phone] Start: 09-10-2024 Antibody measurement KR ISTA MAST POLE FRAMER MACHINE Work Phone: Comment on above: The atypical pANCA p attern has been observed in asignificant percentage of patients with ulcerative colitis,primary sclerosing cholangitis and autoimmune hepatitis. Start: 09-10-2024 Antibody to centrome re measurement MICHELLE MAST POLE FRAMER MACHINE Work Phone: Comment on above: Test not performed Start: 09-10-2024 Antibody to extracta ble nuclear antigen measurement MICHELLE MAST POLE FRAMER MACHINE Work Phone: Comment on above: Test not performed Start: 09-10-2024 Antibody to DIEGO-1 measurement MICHELLE MAST POLE FRAMER MACHINE Work Phone: Comment on above: Test not performed Start: 09-10-2024 Antibody to lupus [place] protein measurement MICHELLE MAST POLE FRAMER MACHINE Work Phone: Comment on above: Test not performed Start: 09-10-2024 Antibody to SS-A measurement MICHELLE MAST POLE FRAMER MACHINE Work Phone: Comment on above: Test not performed Start: 09-10-2024 Autoantibody measurement MICHELLE MAST POLE FRAMER MACHINE Work Phone: Comment on above: Test not performed Start: 09-10-2024 Ceruloplasmin measurement MICHELLE MAST POLE FRAMER MACHINE Work Phone: Comment on above: Performed at: [address] [id number] Director: Gilles Carey PhD, Phone: [phone] Start: 09-10-2024 WARP PICKER antibody measurement MICHELLE MAST POLE FRAMER MACHINE Work Phone: Comment on above: Test not performed Start: 09-10-2024 Total iron binding c apacity measurement MICHELLE MAST POLE FRAMER MACHINE Work Phone: Start: 09-10-2024 Vitamin D, 25-hydrox y measurement MICHELLE MAST POLE FRAMER MACHINE Work Phone: Comment on above: Vitamin D StatusDefi ciency: <20 ng/mL (50nmol/L)Insufficiency: 20-30 ng/mL (50-75 nmol/L)Sufficiency: 30-100 ng/mL (75-250 nmol/L)Toxicity: >100 ng/mL (>250 nmol/L) Start: 09-02-2024 Procedure MICHELLE Blank JEFF Work Phone: Comment on above: Test Ordered: [id number] Enhanced Liver Fibrosis (ELF)ELF(TM) Score 8.18 BN [...] STELLAR trials. J Hepatol. 2020 Aug;73(1):26-39.Performed at: [facility] [address] [id number] Director: Juana Lee MD, Phone: [phone] at: [facility] [address] [id number] Director: Gilles Carey PhD, Phone: [phone] Start: 08-05-2024 Ultrasound elastogra phy of liver MICHELLE DOMINIQUE JEFF Work Phone: Start: 07-30-2024 Chocolate ARASELIT MICHELLE Landaverde AST POLE FRAMER MACHINE Work Phone: Start: 07-30-2024 Food RAST MICHELLE Blank POLE FRAMER MACHINE Work Phone: Start: 07-30-2024 Hepatitis A virus an tibody, total measurement MICHELLE DOMINIQUE JEFF Work Phone: Comment on above: Comment: The [...] HAVtotal antibody results to IgM (e.g., panel #[id number] HAVAntibody w/ Rfx).Performed at: [facility] [address] [id number] Director: Gilles Carey PhD, Phone: [phone] Start: 07-30-2024 Hepatitis C antibody measurement MICHELLE [...] HCV Quant by PCR testing - HCVPCR #[id number] Non Reactive: < 0.8 Equivocal: >/= 0.8 [...] X-ray Start: 07-12-2018 Urinalysis microscopic only Myron A Prince Work Phone: Start: 07-12-2018 URINALYSIS, MACRO Myron A Foskey Work Phone: Group B Streptococcus Culture Urine culture Plan of Treatment Date Care Activity Detail Author Start: 09-10-2024 Cytoplasmic ANCA Screen [facility] Start: 09-10-2024 Mitochondria Ab [Pre sence] in Serum [facility] Start: 07-24-2024 [facility] Start: 02-09-2022 Patient discharge [facility] Work Phone: Start: 02-09-2022 [facility] Work Phone: Start: 02-05-2022 Application of abdom inal corset [facility] Work Phone: Start: 02-04-2022 End: 02-05-2022 [facility] Work Phone: Start: 02-04-2022 Administration of medication [facility] Work Phone: Start: 02-04-2022 Ambulation therapy management [facility] Work Phone: Start: 02-04-2022 Application of device [facility] Work Phone: Start: 02-04-2022 Application of intermittent pneumatic compression device [facility] Work Phone: Start: 02-04-2022 Assessment of risk o f venous thromboembolism [facility] Work Phone: Start: 02-04-2022 Catheterization of vein [facility] Work Phone: Start: 02-04-2022 Deep breathing and coughing exercises [facility] Work Phone: Start: 02-04-2022 Exercises [facility] Work Phone: Start: 02-04-2022 Incentive spirometry [facility] Work Phone: Start: 02-04-2022 Measuring intake and output [facility] Work Phone: Start: 02-04-2022 Notification of physician [facility] Work Phone: Start: 02-04-2022 Procedure discontinued [facility] Work Phone: Start: 02-04-2022 Provision of activit y privileges [facility] Work Phone: Start: 02-04-2022 Vital signs measurements [facility] Work Phone: Start: 02-04-2022 Wound care [facility] Work Phone: Start: 02-04-2022 Application of abdom inal corset [facility] Work Phone: Start: 02-04-2022 Admission procedure [facility] Work Phone: Start: 02-04-2022 Consultation [facility] Work Phone: Start: 02-01-2022 Blood count complete auto&auto difrntl wbc COMPLETE CBC W/AUTO DIFF WBC [facility] Work Phone: Start: 02-01-2022 Collection venous bl ood venipuncture ROUTINE VENIPUNCTURE [facility] Work Phone: Start: 02-01-2022 Comprehensive metabo lic panel COMPREHEN METABOLIC PANEL [facility] Work Phone: Start: 02-01-2022 Creatinine other source ASSAY OF URINE CREATININE [facility] Work Phone: Start: 02-01-2022 Culture bacterial quanttative colony count urine URINE CULTURE/COLONY COUNT [facility] Work Phone: Start: 02-01-2022 Culture bct isol&prs mptv id isolate ea urine URINE BACTERIA CULTURE [facility] Work Phone: Start: 02-01-2022 Lactate dehydrogenase ldh LACT ATE (LD) (LDH) ENZYME [facility] Work Phone: Start: 02-01-2022 Protein total xcpt refractometry urine ASSAY OF PROTEIN URINE [facility] Work Phone: Start: 01-27-2022 End: 01-28-2022 [facility] Work Phone: Start: 01-28-2022 Patient discharge [facility] Work Phone: Start: 01-27-2022 Nonstress test [facility] Work Phone: Start: 01-27-2022 Obstetric monitoring [facility] Work Phone: Start: 01-27-2022 Vital signs measurements [facility] Work Phone: Start: 01-27-2022 [facility] Work Phone: Start: 01-17-2022 Nonstress test [facility] Work Phone: Start: 01-17-2022 Obstetric monitoring [facility] Work Phone: Start: 01-17-2022 Vital signs measurements [facility] Work Phone: Start: 01-17-2022 End: 01-17-2022 [facility] Work Phone: Start: 01-17-2022 [facility] Start: 11-26-2021 Nonstress test [facility] Work Phone: Start: 11-26-2021 Obstetric monitoring [facility] Work Phone: Start: 11-26-2021 Vital signs measurements [facility] Work Phone: Start: 11-26-2021 [facility] Work Phone: Start: 11-26-2021 Patient discharge [facility] Work Phone: Start: 08-23-[facility]21 [facility]: Start: 08-23-2021 Chlamydia deoxyribon ucleic acid detection [facility] Work Phone: Start: 10-20-2018 Influenza vaccination INFLUENZ A VACCINE (Season Ended) [facility] Start: 10-20-2017 Influenza vaccination SEQUENTI AL INFLUENZA VACCINE (#1) [facility] Start: 2017 Third diphtheria, te tanus and acellular pertussis (DTaP) vaccination TDAP (ADULT) [facility] Start: 2016 Tetanus vaccination [facility] Start: 2014 Screening for Chlamy karen trachomatis CHLAMYDIA SCREEN [facility] Start: 2013 Vaccination for pollo n papillomavirus HPV VACCINE ADOL (1 - Female 3-dose series) [facility] Start: 07-06-2011 HIV screening HIV SCREENING DISCUSSION [facility] Start: 2009 Vaccination for pollo n papillomavirus HPV VACCINES (1 of 3 - Female 3-dose series) [facility] Start: 1998 GONORRHEA SCREEN GONORRHEA SCREEN AV [facility] Start: 1998 Tetanus vaccination TETANUS EVERY 10 YR [facility] Alpha 1 antitrypsin [Mass/volume] in Serum or Plasma [facility] Antibody to lupus La protein measurement [facility] Antibody to SS-A measurement [facility] Bacteria identified in Urine by Culture [facility] Work Phone: Basic metabolic 2008 panel with ionized calcium - Serum or Plasma [facility] Beta-hemolytic Streptococcus culture [facility] Work Phone: C reactive protein [Mass/volume] in Serum or Plasma [facility] Ceruloplasmin [Mass/volume] in Serum or Plasma [facility] Cytoplasmic ANCA Screen [facility] DNA double strand Ab [Units/volume] in Serum [facility] Ferritin [Mass/volum e] in Serum or Plasma [facility] End: 10-24-2018 Gastrointestinal pathogens DNA and RNA panel - Stool by LIANA with non-probe detection Stool/GI PCR Panel Routine Diarrhea, unspecified type 1 Occurrences starting 10/24/2017 until 10/24/2018 [facility] Comment on above: 1 Occurrences starti ng 10/24/2017 until 10/24/2018 Group B Streptococcu s Culture Group B Streptococcus Culture [facility] Work Phone: Hemoglobin A1c/Hemoglobin.total in Blood [facility] Hepatic function panel [facility] Hepatitis A virus Ab [Presence] in Serum [facility] Hepatitis C antibody measurement [facility] IgA [Mass/volume] in Serum or Plasma [facility] Iron and Iron bindin g capacity panel - Serum or Plasma [facility] Lipid 1996 panel - S aggie or Plasma [facility] Liver stiffness by US.transient elastography [facility] Mitochondria Ab [Pre sence] in Serum [facility] Neisseria gonorrhoea e rRNA [Presence] in Unspecified specimen by LIANA with probe detection [facility] Work Phone: Path report.final Dx Spec [facility] Patient Education [facility] Work Phone: Patient referral [facility] Work Phone: PCR test for Chlamyd ia trachomatis [facility] Work Phone: Procedure [facility] Work Phone: Procedure [facility] Smooth muscle Ab [Presence] in Serum [facility] Thyroid stimulating hormone measurement [facility] Tissue transglutamin ase IgA Ab [Units/volume] in Serum [facility] US Pelvis [facility] Vitamin D, 25-hydrox y measurement [facility] Vitamin D, 25-hydrox y measurement [facility] Immunizations Immunization Date Immunization Notes Care Provider Heber lowe 06-17-2024 Hepatitis B vaccine (recombinant), CpG adjuvanted MICHELLE MAST POLE FRAMER MACHINE Work Phone: [facility] 12-12-2016 influenza, injectabl e, quadrivalent, preservative free MICHELLE MAST POLE FRAMER MACHINE Work Phone: [facility] 08-02-2016 tetanus toxoid, redu ravinder diphtheria toxoid, and acellular pertussis vaccine, adsorbed MICHELLE MAST POLE FRAMER MACHINE Work Phone: [facility] 05-10-2016 meningococcal B vacc ine, fully recombinant MICHELLE MAST POLE FRAMER MACHINE Work Phone: [facility] 03-29-2016 meningococcal B vacc ine, fully recombinant MICHELLE MAST POLE FRAMER MACHINE Work Phone: [facility] 11-24-2015 meningococcal polysaccharide (groups A, C, Y and W-135) diphtheria toxoid conjugate vaccine (MCV4P) MICHELLE MAST POLE FRAMER MACHINE Work Phone: [facility] 07-22-2013 hepatitis A vaccine, pediatric/adolescent dosage, 2 dose schedule MICHELLE MAST POLE FRAMER MACHINE Work Phone: [facility] 01-21-2013 hepatitis A vaccine, pediatric/adolescent dosage, 2 dose schedule MICHELLE MAST POLE FRAMER MACHINE Work Phone: [facility] 01-01-2013 influenza, injectabl e, quadrivalent, preservative free MICHELLE MAST POLE FRAMER MACHINE Work Phone: [facility] 03-06-2011 influenza, injectabl e, quadrivalent, preservative free MICHELLE MAST POLE FRAMER MACHINE Work Phone: [facility] 11-24-2010 human papilloma viru s vaccine, bivalent MICHELLE MAST POLE FRAMER MACHINE Work Phone: [facility] 07-21-2010 human papilloma viru s vaccine, bivalent MICHELLE MAST POLE FRAMER MACHINE Work Phone: [facility] 07-21-2010 varicella virus vaccine TESS TA MAST POLE FRAMER MACHINE Work Phone: [facility] 05-18-2010 human papilloma viru s vaccine, bivalent MICHELLE MAST [employer]LE FRAMER MACHINE Work Phone: [facility] 05-18-2010 meningococcal polysaccharide (groups A, C, Y and W-135) diphtheria toxoid conjugate vaccine (MCV4P) MICHELLE [employer] Work Phone: [facility] 05-18-2010 tetanus toxoid, redu ravinder diphtheria toxoid, and acellular pertussis vaccine, adsorbed MICHELLE [employer] Work Phone: [facility] 11-10-2003 diphtheria, tetanus toxoids and acellular pertussis vaccine MICHELLE [employer] Work Phone: [facility] 11-10-2003 measles, mumps and rubella virus vaccine MICHELLE [employer] Work Phone: [facility] 11-10-2003 poliovirus vaccine, inactivated MICHELLE [employer]INE Work Phone: [facility] 12-15-1999 diphtheria, tetanus toxoids and acellular pertussis vaccine MICHELLE [employer] Work Phone: [facility] 12-15-1999 haemophilus influenz ae type b vaccine, PRP-T conjugate MICHELLE [employer] Work Phone: [facility] 07-06-1999 measles, mumps and rubella virus vaccine MICHELLE [employer]INE Work Phone: [facility] 07-06-1999 poliovirus vaccine, inactivated MICHELLE [employer]INE Work Phone: [facility] 07-06-1999 varicella virus vaccine TESS TA [employer]ST [employer]ER MACHINE Work Phone: [facility] 02-09-1999 diphtheria, tetanus toxoids and acellular pertussis vaccine MICHELLE [employer] Work Phone: [facility] 02-09-1999 haemophilus influenz ae type b conjugate and Hepatitis B vaccine MICHELLE MAST [employer]ACHINE Work Phone: [facility] 1998 diphtheria, tetanus toxoids and acellular pertussis vaccine MICHELLE [employer]INE Work Phone: [facility] 1998 haemophilus influenz ae type b vaccine, PRP-T conjugate MICHELLE [employer] Work Phone: [facility] 1998 poliovirus vaccine, inactivated MICHELLE [employer]ACHINE Work Phone: [facility] 1998 diphtheria, tetanus toxoids and acellular pertussis vaccine MICHELLE [employer]ACHINE Work Phone: [facility] 1998 haemophilus influenz ae type b conjugate and Hepatitis B vaccine MICHELLE [employer]ACHINE Work Phone: [facility] 1998 poliovirus vaccine, inactivated MICHELLE [employer]ACHINE Work Phone: [facility] 1998 hepatitis B vaccine, pediatric or pediatric/adolescent dosage MICHELLE [employer]ST [employer] MACHINE Work Phone: [facility] Payers Date Payer Category Payer Unknown [id number] 2024 Self-pay [id number] 2023 Unknown [id number] 2022 Unknown [id number] 2018 Unknown 2018 Unknown [employer] xxxxxxxxxxx 2018-Present [phone] [id number]. [id number] 1998 Unknown [id number] 2.16.840.1.289673.3.579.2. 196 1998 Unknown [id number] 2.16.840.1.549360.3.579.2. 627 1998 Unknown [id number] 2.16.840.1.302232.3.579.2. 627 1998 Unknown [id number] 2.16.840.1.840935.3.579.2. 627 1998 Unknown [id number] 2.16.840.1.470535.3.579.2. 627 1998 Unknown [id number] 2.16.840.1.014621.3.579.2. 627 1998 Unknown [id number] 2.16.840.1.417453.3.579.2. 627 1998 Unknown [id number] 2.16.840.1.241113.3.579.2. 627 1998 Unknown [id number] 2.16.840.1.479465.3.579.2. 627 1998 Unknown [id number] 2.16.840.1.497717.3.579.2. 627 1998 Unknown [id number] 2.16.840.1.250932.3.579.2. 62 1998 Unknown [id number] 2.16.840.1.059090.3.579.2. 62 1998 Unknown [id number] 2.16.840.1.514573.3.579.2. 62 1998 Unknown [id number] 2.16.840.1.852811.3.579.2. 627 1959 Unknown [id number] Private Health Insurance [facility] [id number] Unknown [id number] Unknown [id number] 2.16.840.1.443317.3.579.2. 462 Unknown [id number] 2.16.840.1.129834.3.579.2. 462 Unknown [id number] 2..840.1.600321.3.579.2. 462 Unknown [id number] 2..840.1.170896.3.579.2. 462 Unknown [id number] 2..840.1.780006.3.579.2. 462 Unknown [id number] 2..840.1.398018.3.579.2. 462 Unknown [id number] ..840.1.544808.3.579.2. 462 Unknown [id number] 2..840.1.989665.3.579.2. 462 Unknown [id number] 2.16.840.1.665469.3.579.2. 462 Unknown [id number] 2..840.1.084221.3.579.2. 462 Unknown [id number] 2.16.840.1.959565.3.579.2. 462 Unknown [id number] 2.16.840.1.937439.3.579.2. 462 Unknown [id number] 2.16.840.1.765068.3.579.2. 462 Unknown [id number] 2.16.840.1.967673.3.579.2. 462 Unknown [id number] 2.16.840.1.231270.3.579.2. 462 Unknown [id number] 2.16.840.1.510021.3.579.2. 462 Unknown [id number] 2.16.840.1.333873.3.579.2. 462 Unknown [id number] 2.16.840.1.820072.3.579.2. 462 Unknown [id number] 2.16.840.1.880241.3.579.2. 462 Unknown [id number] 2.16.840.1.200361.3.579.2. 462 Unknown [id number] 2.16.840.1.187664.3.579.2. 462 Unknown [id number] 2.16.840.1.599281.3.579.2. 462 Unknown [id number] 2.16.840.1.775767.3.579.2. 462 Unknown [id number] 2.840.1.605454.3.579.2. 462 Unknown [id number] 2.16.840.1.651815.3.579.2. 462 Social History Date Type Detail Facility Start: 10-24-2017 Tobacco smoking status NHIS Former smoker [facility] Sex Assigned At Not on file [facility] Start: 07-12-2018 End: 11-20-2024 Tobacco smoking status NHIS Never smoker [facility] Start: 02-22-2021 End: 02-04-2022 Tobacco smoking status MAIS Unknown if ever smoked [facility] Start: 06-12-2020 None [facility] Start: 06-12-2020 Spouse/ Signif icant Other [facility] Start: 2000 Sex Assigned At Female [facility] Tobacco smoking status No Smoking Status Entered [facility] Gender Identity Identifies as fe male gender (finding) [facility] Sexual Orientation Heterosexual (finding) [facility] NEGATED: Highlighted row Not [facility] Goals Date Patient Goal Desired Activity /State Functional Status Date Assessment Result Facility 08-07-2023 Functional Status Independent [facility] 06-26-2023 Functional Status Standard Safet y ID band on, Call device within reach, Bed in low position, Wheels locked, Upper/Half-Length side-rails up, Bedside Cart Locked, Safety level maintained [facility] 05-16-2023 Functional Status Independent [facility] 05-16-2023 Functional Status Independent [facility] 02-22-2023 Functional Status Independent [facility] 02-22-2023 Functional Status ID band on, Call device within reach, Bed in low position, Wheels locked, Upper/Half-Length side-rails up, Safety level maintained [facility] Mental Status Date Assessment Result Facility 08-07-2023 Mental Status Orientation Oriented x 4 [facility] 08-07-2023 Mental Status [facility] 06-26-2023 Mental Status Orientation Oriented x 4 [facility] 05-16-2023 Mental Status Orientation Oriented x 4 [facility] 05-16-2023 Mental Status [facility] 02-22-2023 Mental Status Orientation Oriented x 4 [facility] 02-22-2023 Mental Status [facility] 02-09-2022 Cognitive function Level Of Cons ciousness Awake;Alert;Appropriate;Follow s Commands [facility] Work Phone: 02-08-2022 Cognitive function Appropriate [facility] Work Phone: Clinical Notes 01-28-2022 to 11-24-2024 Note Date & Type Note Facility 11-24-2024 Progress note [facility] 11-24-2024 Progress note Note Date/Time November 24, 2024 3:01pm [address], [address] [place] [address] OFFICE VISIT Date of Service: 11/24/24 MR#: [id number] Acct: [id number] Name: JUANITA PAULINO Rep #: [id number] : 2000 Provider: DELMIS Yu Age/Sex: 24/F Location: [facility] Status: Signed Intake Vital Signs 10/30/24 08:09 11/24/24 14:41 11/24/24 14:50 Height 5 ft 7 in 5 ft 7 in 5 ft 7 in Weight: 324 lb 8 oz 323 lb 9 oz BMI 50.8 50.6 BP 114/65 119/72 Respiration 16 Pulse 93 Temp 97.8 F Pulse Oximetry (%) 98 Oxygen Delivery Method room air Intake Visit Reasons: IUD removal per SM - discuss OCP Chief Complaint: IUD removal [employer] Required: No Is patient in pain?: No Allergies No Known Allergies Allergy (Verified 11/24/24 14:41) Medications ?Medication ?Instructions ?Recorded ?Confirmed ?Type valacyclovir 500 mg tablet 500 mg PO QDAY HSV 30 days #30 tabs 05/26/24 11/24/24 Rx calcium polycarbophil 625 mg 1,250 mg (2 x 625 mg) PO QDAY #180 07/30/24 11/24/24 Rx tablet (FiberCon) tabs rabeprazole 20 mg tablet,delayed 20 mg PO QDAY #90 tab s 07/30/24 11/24/24 Rx release buspirone 5 mg tablet 5 mg PO TID #90 tabs 08/13/2 5 11/24/24 Rx fluoxetine 10 mg capsule (Prozac) 10 mg PO QDAY #30 ca ps 08/13/24 11/24/24 Rx metformin 500 mg tablet 500 mg PO BID #60 tabs 08/1311/24/24 Rx dicyclomine 10 mg capsule 10 mg PO TID #90 caps 11/24/24 Rx spironolactone 25 mg tablet 50 mg PO DAILY 10/30/24 History tranexamic acid 650 mg tablet 1,300 mg PO TID PRN blee ding 10/30/24 11/24/24 History norethindrone (contraceptive) 0.35 0.35 mg PO QDAY #28 tabs 11/24/24 11/24/24 Rx mg tablet (Shania) Is last menstrual period known: Yes Last Menstrual Period: 11/02/24 Post menopausal: No Patient : No : No PFSH Medical History Wears glasses Depression Anxiety Cholinesterase deficiency Gastric reflux Non-smoker Biliary dyskinesia HSV-2 (herpes simplex virus 2) infection IBS [...] 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 Same sexual partner. Female Reproductive History Last Menstrual Period: 11/02/24 History 2 Elective abortions Hx Para 3 Spontaneous abortions Hx # Term Pregnancies Ectopic pregnancies Hx # Pregnancies Multiple births 1 # of living children 3 Past Pregnancies Del. Date Name GA/Weeks Outcome Route Bth Weight Gen Labor Lgth Anesthesia Del Locatn Provider [...] distress Nutritional Appearance: obese Orientation: oriented x3 Resp Effort & Inspection: normal respiratory effort General: bladder normal to palpation External Female Exam: normal external appearance and normal appearance of the urethra Urethra: normal appearance of the urethra Speculum Exam - Vagina: normal appearance of the vagina, normal vaginal discharge, no lesions and nontender Speculum Exam - Cervix: normal appearance of the cervix Bimanual Exam- Vagina & Uterus: normal bimanual exam, uterine size normal, bladder normal to palpation, uterine shape normal, uterine mobility normal and non-tender Bimanual Exam- Adnexa, other: normal adnexae, no masses and non-tender Office Procedures IUD Removal IUD Removal Details: Sign out documentation: Completed Procedure: Speculum placed in vagina, IUD string visualized and grasped with ring forceps. IUD easily removed in its entirety and patient tolerated well. Coding Level of Care Code Off vis,est,level 3 Diagnoses Encounter for IUD removal Z30.432 Encounter for other general counseling or advice on contraception Z30.09 Contraceptive encounter type: other general counseling and advice Assessment and Plan Assessment and Plan (1) Encounter for IUD removal: (2) Contraceptive management: Status: Deleted Qualifiers: Contraceptive encounter type: other general counseling and advice Qualified Code(s): Z30.09 - Encounter for other general counseling and advice oncontraception Orders: Orders IUD Removal Today Z30.432 - Encounter for removal of intrauterine contraceptivedevice Medications: New norethindrone (contraceptive) (Shania) 0.35 mg PO QDAY 28 tabs 3RF Plan IUD easily removed Start shania today, condoms X 2 wk RTO 3 months annual and med check 11/24/24 1505 <Electronically signed by Simin chavez SLIP FEEDER SLIP FEEDER-C> Date _ Simin Yu SLIP FEEDER SLIP FEEDER-C Cosigner Signature: Date (if applicable) CC: ~ [facility] Work Phone: 1(158) 792-660210-02-2025 Radiology Diagnostic study note [facility] Imaging Services [address] [address] Pelvic w/ Transvaginal MR#: [id number] Acct: [id number] Name: JUANITA PAULINO Rep #: [id number] : 2000 F 24 From: Renetta Love MD PCP: JEFF VELASCO Status: REG CLI Study:Pelvic w/ Transvaginal Date of Exam: 11/19/24 Exam# [id number] Ordering Dr: Teresa Lala MD PROCEDURE: PELVIC W/ TRANSVAGINAL 11/19/2024 REASON FOR EXAM: HEAVY BLEEDING AFTER IUD INSERTION TECHNIQUE: Procedure Code: USPELTVAG Modality: US Procedure: PELVIC W/ TRANSVAGINAL COMPARISON: 09/19/2024 FINDINGS: Since the previous study, patient has undergone insertion of an IUD. IUD is noted in the lower uterine segment, does not appear to extend to the fundus. Uterus: Anteverted measuring 10.1 x 5.9 x 4.5 cm. Myometrium is homogeneous, nodemonstrated fibroid. Endometrium: Hyperechoic, thickness of 12 mm Right ovary: 3.9 x 2.7 x 2.7 cm, no suspicious mass, normal color Doppler flow. Left ovary: 3.2 x 2.8 x 2.4 cm there is a simple cyst measuring 2.5 cm. No suspicious mass. Normal color Doppler flow. 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 Simple left adnexal cyst, no specific follow-up No free fluid Reading Location: [facility] CC: Dr. Teresa Wilkinson MD; JEFF VELASCO ~ Stockroom Keeper: Signed [facility]09-02-2025 Progress [facility] [address] [place] [address] OFFICE VISIT Date of Service: 10/21/24 MR#: [id number] Acct: [id number] Name: JUANITA PAULINO Rep #: [id number] : 2000 Provider: Dr. Ruben Pandya MD Age/Sex: 24/F Location: [facility] Status: Signed Intake Vital Signs 10/14/24 10:56 10/21/24 14:55 Height 5 ft 7 in 5 ft 7 in Weight: 324 lb 1 oz 323 lb BMI 50.7 50.5 BP 123/80 H 120/81 H Blood Pressure Location Rt brachial Position Sitting Respiration 18 Intake Visit Reasons: ABNORMAL HIDA Chief Complaint: abn hida [employer] Required: No Is patient in pain?: No Allergies No Known Allergies Allergy (Verified 10/21/24 14:56) Medications ?Medication ?Instructions ?Recorded ?Confirmed ?Type valacyclovir 500 mg tablet 500 mg PO QDAY HSV 30 days #30 tabs 05/26/24 10/21/24 Rx calcium polycarbophil 625 mg 1,250 mg (2 x 625 mg) PO QDAY #180 07/30/24 10/21/24 Rx tablet (FiberCon) tabs rabeprazole 20 mg tablet,delayed 20 mg PO QDAY #90 tab s 07/30/24 10/21/24 Rx release buspirone 5 mg tablet 5 mg PO TID #90 tabs 08/13/2 5 10/21/24 Rx fluoxetine 10 mg capsule (Prozac) 10 mg PO QDAY #30 ca ps 08/13/24 10/21/24 Rx metformin 500 mg tablet 500 mg PO BID #60 tabs 08/1310/21/24 Rx spironolactone 25 mg tablet 25 mg PO DAILY #30 tabs 10/21/24 Rx tranexamic acid 650 mg tablet 1,300 mg (2 x 650 mg) PO TID #60 09/01/24 10/21/24 Rx tabs dicyclomine 10 mg capsule 10 mg PO TID #90 caps 10/21/24 Rx levonorgestrel (Mirena) 1 device intrauterine ONCE 0 10/14/24 10/21/24 History PFSH Medical History (Updated 10/21/24 @ 15:[address] 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 She describes periodic pain in the right upper quadrant along with nausea vomiting as well as diarrhea. Sherecently underwent an ultrasound of the right upper quadrant and this was negative for any stones or sludge. She then underwent a HIDA scan that showed no appreciable emptying of the gallbladder withCCK ROS General General: Yes weight change and fatigue; No appetite, colon cancer, breast cancer or weakness HEENT HEENT: No difficulty swallowing, eye injury, eye surgery, swollen glands or hoarseness Endo Endocrine: No thyroid disease, diabetes mellitus, thyroid cancer, Hair loss, heat intolerance or cold intolerance Skin Skin: No rash or changing moles Breast Breast: No left breast lump, right breast lump, nipple discharge, breast pain, abnormal mammogram, abnormal US or breast enlargement Musc Musculoskeletal: No back problems, arthritis, rheumatoid arthritis, gout or joint pain Cardio Cardiovascular: No murmur, pacemaker, heart disease, atrial fibrillation, high blood pressure, heart attack, heart stent, palpitations, shortness of breath with exertion or chest pain Psych Psychiatric: Yes depression and anxiety; No hearing voices Resp Respiratory: Yes shortness of breath, No sleep apnea, No cough, No COPD, No asthma, No emphysema and No wheezing Gastro Gastrointestinal: Yes abdominal pain, Yes nausea or vomiting, Yes diarrhea, No constipation, Yes blood in stool, Yes acid reflux, Yes hemorrhoids, No ulcers, Yes gallbladder problem and No black,tarry stools Carlos Hematologic: No blood thinners, No blood disorders, No bleeding, No anemia and No blood clots Neuro Neurologic: No system reviewed and no additional complaints, except as documented, No as per HPI, No abnormal gait, No abnormal hearing, No abnormal movements, No abnormal speech, No behavioral changes, No burning sensations, No confusion, No convulsions, No disequilibrium, No dizziness, No localized weakness, No frequent falls, No headache(s), No lack of coordination, No loss ofvision, No memoryloss, Yes numbness, No other visual disturbances, No radicularpain, No restless legs, No sensory deficit, No syncope, Yes tingling, No tremor(s), No weakness and No other Exam Const General: cooperative, healthy appearing and comfortable Nutritional Appearance: obese Orientation: alert and oriented x3 HENMT Head: normal to inspection, normocephalic and atraumatic Eyes General: appearance normal, both eyes and all related structures Neck Neck: normal visual inspection Resp Effort & Inspection: normal respiratory effort GI Inspection: normal to inspection Assessment and Plan Assessment and Plan (1) Biliary dyskinesia: Status: Acute Plan: Patient is a 24-year-old female who is being seen today for right upper quadrantpain and nausea vomiting and diarrhea. HIDA scan showed essentially 0 ejection fraction. I do believe that her symptomsare likely representing biliary colic. I have offered her robotic cholecystectomy as treatment. We discussed the details of the planned procedure and she wishes to proceed. This will be scheduled in a timely manner. Coding Level of Care Code Off vis,new,level 4 Diagnoses Biliary dyskinesia K82.8 10/21/24 1502 k > Date _ Luis Pandya MD Cosigner Signature: Date (if applicable) CC: DELMIS Larose; JEFF VELASCO ~ [facility]09-02-2025 Progress note Author Luis Pandya [facility] Note Date/Time October 21, 2024 3:02pm [facility] [place] [address] OFFICE VISIT Date of Service: 10/21/24 MR#: [id number] Acct: [id number] Name: JUANITA PAULINO Rep #: [id number] : 2000 Provider: Dr. Ruben Pandya MD Age/Sex: 24/F Location: [facility] Status: Signed Intake Vital Signs 10/14/24 10:56 10/21/24 14:55 Height 5 ft 7 in 5 ft 7 in Weight: 324 lb 1 oz 323 lb BMI 50.7 50.5 BP 123/80 H 120/81 H Blood Pressure Location Rt brachial Position Sitting Respiration 18 Intake Visit Reasons: ABNORMAL HIDA Chief Complaint: abn hida [employer] Required: No Is patient in pain?: No Allergies No Known Allergies Allergy (Verified 10/21/24 14:56) Medications ?Medication ?Instructions ?Recorded ?Confirmed ?Type valacyclovir 500 mg tablet 500 mg PO QDAY HSV 30 days #30 tabs 05/26/24 10/21/24 Rx calcium polycarbophil 625 mg 1,250 mg (2 x 625 mg) PO QDAY #180 07/30/24 10/21/24 Rx tablet (FiberCon) tabs rabeprazole 20 mg tablet,delayed 20 mg PO QDAY #90 tab s 07/30/24 10/21/24 Rx release buspirone 5 mg tablet 5 mg PO TID #90 tabs 08/13/2 5 10/21/24 Rx fluoxetine 10 mg capsule (Prozac) 10 mg PO QDAY #30 ca ps 08/13/24 10/21/24 Rx metformin 500 mg tablet 500 mg PO BID #60 tabs 08/1310/21/24 Rx spironolactone 25 mg tablet 25 mg PO DAILY #30 tabs 10/21/24 Rx tranexamic acid 650 mg tablet 1,300 mg (2 x 650 mg) PO TID #60 09/01/24 10/21/24 Rx tabs dicyclomine 10 mg capsule 10 mg PO TID #90 caps 10/21/24 Rx levonorgestrel (Mirena) 1 device intrauterine ONCE 0 10/14/24 10/21/24 History [facility] Medical History (Updated 10/21/24 @ 15:[address] 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 She describes periodic pain in the right upper quadrant along with nausea vomiting as well as diarrhea. She recently underwent an ultrasound of the right upper quadrant and this was negative for any stones or sludge. She then underwent a HIDA scan that showed no appreciable emptying of the gallbladder with CCK ROS General General: Yes weight change and fatigue; No appetite, colon cancer, breast cancer or weakness HEENT HEENT: No difficulty swallowing, eye injury, eye surgery, swollen glands or hoarseness Endo Endocrine: No thyroid disease, diabetes mellitus, thyroid cancer, Hair loss, heat intolerance or cold intolerance Skin Skin: No rash or changing moles Breast Breast: No left breast lump, right breast lump, nipple discharge, breast pain, abnormal mammogram, abnormal US or breast enlargement Musc Musculoskeletal: No back problems, arthritis, rheumatoid arthritis, gout or joint pain Cardio Cardiovascular: No murmur, pacemaker, heart disease, atrial fibrillation, high blood pressure, heart attack, heart stent, palpitations, shortness of breath with exertion or chest pain Psych Psychiatric: Yes depression and anxiety; No hearing voices Resp Respiratory: Yes shortness of breath, No sleep apnea, No cough, No COPD, No asthma, No emphysema and No wheezing Gastro Gastrointestinal: Yes abdominal pain, Yes nausea or vomiting, Yes diarrhea, No constipation, Yes blood in stool, Yes acid reflux, Yes hemorrhoids, No ulcers, Yes gallbladder problem and No black,tarry stools Carlos Hematologic: No blood thinners, No blood disorders, No bleeding, No anemia and No blood clots Neuro Neurologic: No system reviewed and no additional complaints, except as documented, No as per HPI, No abnormal gait, No abnormal hearing, No abnormal movements, No abnormal speech, No behavioral changes, No burning sensations, No confusion, No convulsions, No disequilibrium, No dizziness, No localized weakness, No frequent falls, No headache(s), No lack of coordination, No loss ofvision, No memory loss, Yes numbness, No other visual disturbances, No radicularpain, No restless legs, No sensory deficit, No syncope, Yes tingling, No tremor(s), No weakness and No other Exam Const General: cooperative, healthy appearing and comfortable Nutritional Appearance: obese Orientation: alert and oriented x3 HENMT Head: normal to inspection, normocephalic and atraumatic Eyes General: appearance normal, both eyes and all related structures Neck Neck: normal visual inspection Resp Effort & Inspection: normal respiratory effort GI Inspection: normal to inspection Assessment and Plan Assessment and Plan (1) Biliary dyskinesia: Status: Acute Plan: Patient is a 24-year-old female who is being seen today for right upper quadrantpain and nausea vomiting and diarrhea. HIDA scan showed essentially 0 ejection fraction. I do believe that her symptoms are likely representing biliary colic. I have offered her robotic cholecystectomy as treatment. We discussed the details of the planned procedure and she wishes to proceed. This will be scheduled in a timely manner. Coding Level of Care Code Off vis,new,level 4 Diagnoses Biliary dyskinesia K82.8 10/21/24 1502 <Electronically signed by Luis brizuela MD> Date _ Luis Pandya MD Cosigner Signature: Date (if applicable) CC: SLIP FEEDERSourav Larose; JEFF VELASCO ~ [facility] Work Phone: 1(984) 135-146008-26-2025 Nuclear medicine Diagnostic study note [facility] Imaging Services [address] [place] [address] [id number] Hepatobilliary Img w/Pharm Int MR#: [id number] Acct: [id number] Name: JUANITA PAULINO Rep #: [id number] : 2000 F 24 From: Jacob Rodriguez MD PCP: JEFF VELASCO Status: REG CLI Study:Hepatobilliary Img w/Pharm Int Date of Exam: 10/14/24 Exam# [id number] Ordering Dr: Roxanne De La Cruz PROCEDURE: HEPATOBILLIARY IMG W/PHARM INT, plus gallbladder ejection fraction. 10/14/2024 REASON FOR EXAM: RUQ PAIN. Diarrhea, and vomiting. TECHNIQUE: Intravenous Choletec with planar imaging of the abdomen. RADIOPHARMACEUTICAL: Intravenous administration 6.0 mCi technetium 99 M mebrofenin. The gallbladder ejection fraction was obtained following intravenous administration of 3.2 mcg cholecystokinin. COMPARISON: CT examination 06/12/2020 FINDINGS: Satisfactory hepatic uptake and clearance is seen.. Normal gallbladder visualization with the gallbladder identified by 15 minutes. Small bowel activity is seen by the 30 minute film. Following cholecystokinin administration, no significant gallbladder ejection was seen, through 31 minutes. NM/Hepatobilliary Img w/Pharm Int IMPRESSION: 1. No significant gallbladder ejection is seen through 31 minutes, following cholecystokinin administration. In the correct clinical circumstance, this may be seen with chronic cholecystitis. 2. Negative hepatobiliary scan, otherwise. Reading Location: [place] [address] CC: JEFF VELASCO; KO Ram ~ Stockroom Keeper: Signed [facility]08-03-2025 Radiology Diagnostic study note [facility] Imaging Services [address] [place] [address] [id number] Pelvic w/ Transvaginal MR#: [id number] Acct: [id number] Name: JUANITA PAULINO Rep #: [id number] : 2000 F 24 From: Kiran Pierce MD PCP: JEFF VELASCO Status: REG CLI Study:Pelvic w/ Transvaginal Date of Exam: 09/19/24 Exam# [id number] Ordering Dr: Simin Yu SLIP FEEDER SLIP FEEDER-C PROCEDURE: PELVIC W/ TRANSVAGINAL 09/19/2024 REASON FOR EXAM: BLEEDING, LEFT OVARIAN CYST TECHNIQUE: PELVIC W/ TRANSVAGINAL COMPARISON: Reviewed FINDINGS: Transabdominal transvaginal scanning performed. Bilateral ovaries are normal with preserved symmetric vascular flow. No abnormal fluid in the cul-de-sac. Urinary bladder is unremarkable. Endometriumis normal measuring 7mm. Uterus is anteverted measuring 9.7 x 4.9 x 4.2 cm. Cervix is normal. Prominent simple left-sided ovarian cyst measuring 2.6 x 1.9 x 1.6 cm, not as conspicuous previously. US/Pelvic w/ Transvaginal IMPRESSION: As above. [facility] CC: DELMIS Yu; JEFF VELASCO ~ Stockroom Keeper: Signed [facility]06-17-2025 Radiology Diagnostic study note [facility] Imaging Services [address] [place], [place] [id number] ABD Limited w/ Elastography MR#: [id number] Acct: [id number] Name: JUANITA PAULINO Rep #: [id number] : 2000 F 24 From: Uzair Curran MD PCP: Dr. Tiffany Marks MD Status: REG CLI Study:ABD Limited w/ Elastography Date of Exa m: 08/05/24 Exam# [id number] Ordering Dr: Ashley Larose PROCEDURE: ABD LIMITED W/ ELASTOGRAPHY REASON FOR EXAM: ADD SPLEEN PLEASE COMPARISON: None. TECHNIQUE: Right upper quadrant abdominal ultrasound. Ike ElastQ Imaging shear wave elastography for non-invasive [...] 7.3 cm. US/ABD Limited w/ Elastography IMPRESSION: Mdrx-bl-mjvbmehp hepatic fibrosis. Splenomegaly. Hepatomegaly and diffuse fatty [...] measurement may be in question. Reading Location: [place] [address] CC: DELMIS Larose; Dr. 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 [facility] Work Phone: 1(133) 149-682306-11-2025 Evaluation note* Diagnosis Onset Date Resolution Status Admit Date Belching acute July 30 8:17am Diarrhea acute July 30 8:17am Fecal incontinence acute July 202024 8:17am Fecal urgency acute July 30, 2024 8:17am Heartburn acute July 30 8:17am Lower abdominal pain acute July 30, 2024 8:17am Nausea & vomiting acute July 302024 8:17am Steatosis, liver deleted July 8:17am [facility] Work Phone: 1(340) 677-657006-11-2025 Evaluation note* Diagnosis Onset Date Resolution Status [...] Ovarian cyst, left acute August 192024 12:57pm [facility] Work Phone: 1(951) 159-810806-11-2025 Evaluation note* Diagnosis Onset Date Resolution Status [...] 13, 2024 2:23pm Anxiety and depression noneactive Kimi villegas 2024 2:23pm Menorrhagia acute September 01 12:57pm Obesity acute September 01 12:57pm Ovarian cyst, left acute August 192024 12:57pm PCOS (polycystic ovarian syndrome) acute September 01, 2024 12:57pm Vitamin D deficiency acute September 05, 2024 7:57am [facility] Work Phone: 1(317) 664-316906-11-2025 Evaluation note* Diagnosis Onset Date Resolution Status [...] 13, 2024 2:23pm Anxiety and depression noneactive Kimi villegas 2024 2:23pm Menorrhagia acute September 01 12:57pm [...] D deficiency acute September 05, 2024 7:57am [facility] Work Phone: 1(651) 911-515106-11-2025 Evaluation note* Diagnosis Onset Date Resolution Status [...] 13, 2024 2:23pm Anxiety and depression noneactive 2024 2:23pm Menorrhagia acute September 01 12:57pm [...] D deficiency acute September 05, 2024 7:57am Obesity acute September 18 8:33am PCOS (polycystic ovarian syndrome) acute September 18, 2024 8:33am [facility] Work Phone: 1(925) 899-515406-11-2025 Evaluation note* Diagnosis Onset Date Resolution Status [...] August 13, 2024 2:23pm COVID-19 vaccination declined noneactive August 13, 2024 2:23pm Establishing care with new doctor, encounter for noneactive August 13, 2024 2:23pm PCOS (polycystic ovarian syndrome) noneactive August 13, 2024 2:23pm Tingling of left upper extremity noneactive August 13, 2024 2:23pm Morbid obesity with BMI of 50.0-59.9, adult noneactive August 13, 2024 2:23pm Anxiety and depression noneactive 2024 2:23pm Menorrhagia acute September 01 12:57pm [...] D deficiency acute September 05, 2024 7:57am Obesity acute September 18 8:33am PCOS (polycystic ovarian syndrome) acute September 18, 2024 8:33am Menorrhagia acute October 14, 2024 10:52am Obesity acute October 14, 025 10:52am Encounter for IUD insertion noneacti ve October 14, 2024 10:52am Biliary dyskinesia acute Sept2024 2:35pm [email or web address] Work Phone: 1(333) 452-641306-11-2025 Evaluation note* Diagnosis Onset Date Resolution Status [...] August 13, 2024 2:23pm COVID-19 vaccination declined noneactive August 13, 2024 2:23pm Establishing care with new doctor, encounter for noneactive August 13, 2024 2:23pm PCOS (polycystic ovarian syndrome) noneactive August 13, 2024 2:23pm Tingling of left upper extremity noneactive August 13, 2024 2:23pm Morbid obesity with BMI of 50.0-59.9, adult noneactive August 13, 2024 2:23pm Anxiety and depression noneactive 2024 2:23pm Menorrhagia acute September 01 12:57pm [...] D deficiency acute September 05, 2024 7:57am Obesity acute September 18 8:33am PCOS (polycystic ovarian syndrome) acute September 18, 2024 8:33am Menorrhagia acute October 14, 2024 10:52am Obesity acute October 14, 025 10:52am Encounter for IUD insertion noneacti ve October 14, 2024 10:52am Biliary dyskinesia acute Septem 2024 2:35pm Biliary dyskinesia acute Septem stefano 2024 7:59am Metabolic dysfunction-associated steatotic liver disease (MASLD) acute October 30, 2024 7:59am Obesity acute October 7:59am Vitamin D deficiency acute Sept ember 2024 7:59am Contraceptive management deleted November 24, 2024 2:37pm Encounter for IUD removal noneactive November 24, 2024 2:37pm [facility] Work Phone: 1(715) 459-663406-05-2025 Radiology Diagnostic study note [facility] Imaging Services [address] [place], [place] [address] Transvaginal Non- MR#: [id number] Acct: [id number] Name: JUANITA PAULINO Rep #: [id number] : 2000 F 24 From: Jacob Rodriguez MD PCP: Dr. Tiffany Marks MD Status: [facility] ER Study:Transvaginal Non- Date of Exam: 07/24/24 Exam# [id number] Ordering Dr: Oren Maldonado DO PROCEDURE: TRANSVAGINAL [...] cyst. 2. Negative examination, otherwise. Reading Location: [id number] CC: Dr. Tiffany Marks MD; Dr. Zurdo Maldonado DO ~ Stockroom Keeper: Signed [facility]06-18-2024 Hospital Discharge instructions Patient Education 08/07/2023 12:39:34 [...] thin towel or cloth. You may use btfz-gqc-skfrjhe pain medicine (NSAIDS or nonsteroidal anti- inflammatory [...] or is irritated You re-injure your ankle [phone] [employer]. [address] [place] [address], [place] [address]. All rights reserved. This information is not intended as a substitute for professional medical care. Always follow yourhealthcare professional's instructions. Follow Up Care 08/07/2023 11:37:04 With:HARRIET BARAHONA Address: [address] [place] [address], [address] [place] [phone] Business (1) When:2-4 days Comments:Return to ED if symptoms worsen With:MICHELLE DOMINIQUE Address: [address] [place] [phone] Business (1) When:2-4 days [facility] 06-18-2024 Note Discharge Instructions Thank you for allowing [facility] to assist you with your healthcare needs. [...] Up with HARRIET BARAHONA When:Within 2-4 days Where:[facility], [address] [place] [address]- [phone] Business (1) Additional Information: Return to ED if symptoms worsen Follow Up with MICHELLE DOMINIQUE When:Within 2-4 days Where:[address] [place] [address] [phone] Business (1) Allergies NKA Medications Please ask [...] thin towel or cloth. You may use xtji-khl-gplbgvo pain medicine (NSAIDS or nonsteroidal anti- inflammatory [...] or is irritated You re-injure your ankle [phone] [employer]. [address] [place] [address]. All rights reserved. This information is not intended as a substitute for professional medical care. Always follow yourhealthcare professional's instructions. Additional Information VACCINATE! IT SAVES LIVES! Members of the community who have not yet received the COVID-19 vaccine and would like to receive it can visit one of [facility] vaccine clinics. There are many vaccine clinic locations within the [facility]. For locations and available times, please visit www.[email or web address].[place].gov/. It is important to note that some COVID mobile vaccine clinics are held outdoors and may be canceled in rainy or stormy conditions. To learn more about pediatric vaccinations (ages 5-11), we invite you to visit the [facility] webpage. https://www.[facility].org/pages/6195-Ptqhh-Rqecyxyrhtz-Xxadnchwfn-Ffxoy-Zdm stions.htmlTo learn more about the COVID-19 vaccine, we invite you to visit the CDC website for a list of frequently asked questions. https://www.cdc.gov/coronavirus/2019-ncov/vaccines/faq.html [facility] Patient Portal Access Instructions: Stay connected with your healthcare team and access your personal medical information anytime with the [facility] Patient Portal. If you would like a full copy of your medical records please contact the [facility] Medical Records Department Sunday through Moiz between 8a.m. and 4:30p.m. Please follow the directions below to access the portal: 1.Access the email account you provided upon registration to the [email or web address].2.Look for an invitation email from [facility].3.Open the email and access the invitation link: Accept Invitation to [facility].Fill in the required denson to create your account. Sign into [email or web address] with your username and password that you [...] you will allow to register on the [facility] Patient Portal for access to your information. You can also access the [facility] Patient Portal on the [employer]ix. Simply click on Health Records under Peer.im and then click on the [facility] logo. HOW TO SAFELY DISPOSE OF PRESCRIPTION [...] Call your local pharmacy or go to http://bit.ly/0X8Eh4r to find one close to you.3.Make use of household items: Use cat litter or old coffee grounds to dispose medications if other options arenot available. Mix your drugs with these household products, seal them in an airtight container andthrow it into the garbage. Call [facility]: [phone] to be sure your drugs can be [...] aware that I should contact my doctor. Patient/Tumor Registrar Signature: Date/Time: Relationship to Patient: Witness Name/Signature: Date/Time: [facility]06-18-2024 Note ORIGINAL HISTORY: Pain COMPARISON: No FINDINGS: [...] Date: 08/07/2023 12:22:15 PM Ordering Provider: ZEYNEP [facility] [id number] Hospital Discharge instructions Patient Education 06/26/2023 14:58:40 [...] or water and you are getting dehydrated 8199-1870 [employer]. [address] [place] [address]. All rights reserved. This information is not intended as a substitute for professional medical care. Always follow yourhealthcare professional's instructions. Follow Up Care 06/26/2023 12:01:13 With:Go to emergency room if symptoms worsen Address:Unknown When:2-4 days With:MICHELLE DOMINIQUE APRN-KENZIE Address: [address] [facility] [place] [address]- [phone] When:2-4 days [facility] 05-07-2024 Emergency department Discharge summary Discharge Instructions Thank you for allowing [facility] to assist you with your healthcare needs. [...] Within 2-4 days Follow Up with MICHELLE DOMINIQUE When Within 2-4 days Where: [address] [place] [address] [place] [address]- [phone] Allergies NKA Medications Please ask your primary [...] or water and you are getting dehydrated 3343-1159 [employer]. [address] [place] [address]. All rights reserved. This information is not intended as a substitute for professional medical care. Always follow yourhealthcare professional's instructions. Additional Information VACCINATE! IT SAVES LIVES! Members of the community who have not yet received the COVID-19 vaccine and would like to receive it can visit one of [facility] vaccine clinics. There are many vaccine clinic locations within the [facility]. For locations and available times, please visit www.gettheshot.[email or web address].[place].gov/. It is important to note that some COVID mobile vaccine clinics are held outdoors and may be canceled in rainy or stormy conditions. To learn more about pediatric vaccinations (ages 5-11), we invite you to visit the [facility] webpage. https://www.[facility].org/pages/0746-Qqtxn-Ifphokcmujj-Pmloldwdnv-Mpwhf-Kvr stions.htmlTo learn more about the COVID-19 vaccine, we invite you to visit the CDC website for a list of frequently asked questions. https://www.cdc.gov/coronavirus/2019-ncov/vaccines/faq.html [facility] Patient [facility] Access Instructions: Stay connected with your healthcare team and access your personal medical information anytime with the [facility] Patient Portal. If you would like a full copy of your medical records please contact the [facility] Medical Records Department Sunday through Sunday between 8a.m. and 4:30p.m. Please follow the directions below to access the portal: 1.Access the email account you provided upon registration to the hospital.2.Look for an invitation email from [facility].3.Open the email and access the invitation link: Accept Invitation to [facility] [employer] [facility]4.Fill in the required denson to create your account. Sign into [email or web address] with your username and password that you [...] you will allow to register on the [facility] Patient Portal for access to your information. You can also access the [facility] Patient Portal on the [employer] perez. Simply click on Health Records under Peer.im and then click on the [facility] logo. HOW TO SAFELY DISPOSE OF PRESCRIPTION [...] Call your local pharmacy or go to http://bit.Innovacell/4E7Sr8k to find one close to you.3.Make use of household items: Use cat litter or old coffee grounds to dispose medications if other options arenot available. Mix your drugs with these household products, seal them in an airtight container andthrow it into the garbage. Call [facility]: [phone] to be sure your drugs can be [...] aware that I should contact my doctor. Patient/Tumor Registrar Signature: Date/Time: Relationship to Patient: Witness Name/Signature: Date/Time: [facility]05-07-2024 Note ORIGINAL EXAMINATION: COMPLETE ABDOMINAL ULTRASOUND06/26/2023 1:33 [...] Date: 06/26/2023 2:29:44 PM Ordering Provider: FELIPA [facility]05-06-2024 Evaluation + Plan note Future Scheduled Tests Laboratory* Stool Gastrointestinal Panel 06/25/23 [facility] 03-27-2024 Hospital Discharge instructions Patient Education 05/16/2023 17:57:52 Dizziness, Uncertain Cause Dizziness (Uncertain Cause) Dizziness is a common symptom. It may be described as lightheadedness, spinning, or feeling like you are going to faint. Dizziness can have many causes. Be sure to tell the healthcare provider about: All medicines you take, including prescription, ykqt-ekq-bfflixt, herbs, and supplements Any other symptoms you [...] Chest, arm, neck, back, or jaw pain 9507-0437 [employer]. [address] [place] [address]. All rights reserved. This information is not intended as a substitute for professional medical care. Always follow yourhealthcare professional's instructions. Follow Up Care 05/16/2023 16:41:43 With:MICHELLE DOMINIQUE Address: [address] [place] [phone] When:2-4 days [facility] 03-27-2024 Note Discharge Instructions Thank you for allowing [facility] to assist you with your healthcare needs. The following is importantdischarge information regarding your hospital visit. Diagnosis from Today's Visit Dizziness Dizziness What to Do Next Instructions from Your Care Team No qualifying data available. Post Acute Orders No qualifying data available. You Need to Schedule the Following Appointments Follow Up with MICHELLE DOMINIQUE When Within 2-4 days Where: [address] [place] [phone] [phone] Allergies NKA Medications Please ask your primary [...] about: All medicines you take, including prescription, vbur-mqd-dxocvcx, herbs, and supplements Any other symptoms you [...] Chest, arm, neck, back, or jaw pain 4804-2433 [employer]. [address] [place] [address]. All rights reserved. This information is not intended as a substitute for professional medical care. Always follow yourhealthcare professional's instructions. Additional Information VACCINATE! IT SAVES LIVES! Members of the community who have not yet received the COVID-19 vaccine and would like to receive it can visit one of [facility] vaccine clinics. There are many vaccine clinic locations within the [facility]. For locations and available times, please visit www.gettheshot.coronavirus.[place].gov/. It is important to note that some COVID mobile vaccine clinics are held outdoors and may be canceled in rainy or stormy conditions. To learn more about pediatric vaccinations (ages 5-11), we invite you to visit the [facility] webpage. https://www.[facility].org/pages/1930-Jsgjw-Xywsvfxdtwl-Pjrohaaxyi-Eoauz-Zwr stions.htmlTo learn more about the COVID-19 vaccine, we invite you to visit the CDC website for a list of frequently asked questions. https://www.cdc.gov/coronavirus/2019-ncov/vaccines/faq.html [facility] Patient [facility] Access Instructions: Stay connected with your healthcare team and access your personal medical information anytime with the [employer] Patient Portal. If you would like a full copy of your medical records please contact the [facility] Medical Records Department Sunday through Sunday between 8a.m. and 4:30p.m. Please follow the directions below to access the portal: 1.Access the email account you provided upon registration to the hospital.2.Look for an invitation email from [facility].3.Open the email and access the invitation link: Accept Invitation to [employer]4.Fill in the required denson to create your account. Sign into [email or web address] with your username and password that you [...] you will allow to register on the [facility] Patient Portal for access to your information. You can also access the [facility] Patient Portal on the [employer]. Simply click on Health Records under Peer.im and then click on the maufait logo. HOW TO SAFELY DISPOSE OF PRESCRIPTION [...] Call your local pharmacy or go to http://Ceres.Innovacell/9Q4Fe8v to find one close to you.3.Make use of household items: Use cat litter or old coffee grounds to dispose medications if other options arenot available. Mix your drugs with these household products, seal them in an airtight container andthrow it into the garbage. Call [facility]: [phone] to be sure your drugs can be [...] aware that I should contact my doctor. Patient/Tumor Registrar Signature: Date/Time: Relationship to Patient: Witness Name/Signature: Date/Time: [facility]03-27-2024 NoteSinus rhythm Borderline intraventricular conduction delay Electronic Signature: IVANA LANGE MD 05/16/2023 17:17:25[facility] 02-13-2024 Hospital Discharge instructions Patient Education 04/03/2023 [...] foods again, start with small amounts of mokf-ka-wgsldd, low- fat foods. These include apple sauce, [...] increase stomach acid. Don't use aspirin or ldlj-kjd-tyztkip pain and fever medicines, if possible. This includes nonsteroidal anti-inflammatory drugs (NSAIDs). Lose excess weight. Finish eating at least 2 hours before you go to bed or lie down. Raise the head of your bed. 3793-5786 [employer]. [address] [place] [address]. All rights reserved. This information is not intended as a substitute for professional medical care. Always follow yourhealthcare professional's instructions. Follow Up Care 04/03/2023 14:09:03 With:JERROD RUANO DO Address: [address] [place] [phone] When:2-4 days [facility] 02-13-2024 Note Discharge Instructions Thank you for allowing [facility] to assist you with your healthcare needs. The following is importantdischarge information regarding your hospital visit. Diagnosis from Today's Visit Abdominal pain Abdominal pain What to Do Next Instructions from Your Care Team No qualifying data available. Post Acute Orders No qualifying data available. You Need to Schedule the Following Appointments Follow Up with JERROD RUANO DO When Within 2-4 days Where: [address] [place] [phone] [phone] Allergies NKA Medications Please ask your primary [...] pharmacies. Medication Leaflets ondansetron (oral) (on NINFA noonan) What is the most important information I [...] may report side effects to FDA at 0-290-RKG-1830. What other drugs will affect ondansetron? Ondansetron [...] interact with ondansetron. This includes prescription and wefy-dnz-csiouwp medicines, vitamins, and herbal products. Give a [...] to ensure that the information provided by [employer]. ('Multum') is accurate, up-to-date, and complete, but no guarantee is made to that effect. Drug information contained herein may be time sensitive. [employer] information has been compiled for use by healthcare practitioners and consumers in the [place] and therefore [employer] does not warrant that uses outside of the [place] are appropriate, unless specifically indicated otherwise. [employer] drug information does not endorse drugs, diagnose patients or recommend therapy. GlycoVaxyn drug information isan informational resource designed to [...] effective or appropriate for any given patient. [employer] does not assume any responsibility for any aspect of healthcare administered with the aid of information [employer] provides. The information contained herein is not intended to cover all possible uses, directions, precautions, warnings, drug interactions, allergic reactions, or adverse effects. If you have questions about the drugs you are taking, check with your doctor, nurse or pharmacist. Copyright 2064-6226 [employer]. Version: 16.. Revision Date: 09/21/2022. Education Materials [...] foods again, start with small amounts of bdmo-fd-mslypv, low- fat foods. These include apple sauce, [...] increase stomach acid. Don't use aspirin or uhym-uli-wdosqek pain and fever medicines, if possible. This includes nonsteroidal anti-inflammatory drugs (NSAIDs). Lose excess weight. Finish eating at least 2 hours before you go to bed or lie down. Raise the head of your bed. 4607-5550 [employer]. [address] [place] [address]. All rights reserved. This information is not intended as a substitute for professional medical care. Always follow yourhealthcare professional's instructions. Additional Information VACCINATE! IT SAVES LIVES! Members of the community who have not yet received the COVID-19 vaccine and would like to receive it can visit one of [facility] vaccine clinics. There are many vaccine clinic locations within the [facility]. For locations and available times, please visit www.[email or web address].gov/. It is important to note that some COVID mobile vaccine clinics are held outdoors and may be canceled in rainy or stormy conditions. To learn more about pediatric vaccinations (ages 5-11), we invite you to visit the [facility] webpage. https://www.[facility].org/pages/6731-Udtyc-Cazcyjtdoqq-Lagpyejdhw-Hqgpu-Pjm stions.htmlTo learn more about the COVID-19 vaccine, we invite you to visit the CDC website for a list of frequently asked questions. https://www.cdc.gov/coronavirus/2019-ncov/vaccines/faq.html [facility] Access Instructions: Stay connected with your healthcare team and access your personal medical information anytime with the [facility] Portal. If you would like a full copy of your medical records please contact the [facility] Medical Records Department Sunday through Sunday between 8a.m. and 4:30p.m. Please follow the directions below to access the portal: 1.Access the email account you provided upon registration to the [facility].2.Look for an invitation email from [facility].3.Open the email and access the invitation link: Accept Invitation to [employer]4.Fill in the required denson to create your account. Sign into [email or web address] with your username and password that you [...] you will allow to register on the [employer] Patient Portal for access to your information. You can also access the [employer] Patient Portal on the [employer]. Simply click on Health Records under Peer.im and then click on the maufait logo. HOW TO SAFELY DISPOSE OF PRESCRIPTION [...] Call your local pharmacy or go to http://Ceres.Innovacell/9Q2Dq5h to find one close to you.3.Make use of household items: Use cat litter or old coffee grounds to dispose medications if other options arenot available. Mix your drugs with these household products, seal them in an airtight container andthrow it into the garbage. Call [facility]: [phone] to be sure your drugs can be [...] aware that I should contact my doctor. Patient/Tumor Registrar Signature: Date/Time: Relationship to Patient: Witness Name/Signature: Date/Time: [facility]24 Note ORIGINAL EXAMINATION: CT OF THE ABDOMEN [...] Sign Date: 04/03/2023 5:42:34 PM Ordering Provider: [facility]02-13-2024 Note ORIGINAL EXAMINATION: LIMITED ABDOMINAL ULTRASOUND04/03/2023 4:24 [...] Sign Date: 04/03/2023 4:32:24 PM Ordering Provider: [facility]01-06-2024 Note. MICRO - Microbiology PROCEDURE: Urine Culture [*1] SOURCE: Urine, Clean Catch BODY SITE: COLLECTED DATE/TIME: 02/22/2023 18:16 EST RECEIVED DATE/TIME: 02/23/2023 15:03 EST START DATE/TIME: 02/23/2023 15:03 EST FREE TEXT SOURCE: FINAL REPORTS Final Report [] Verified Date/Time/Personnel: 02/24/2023 14:44 EST 50,000 - 100,000 cfu/ml Mixed growth consistent with normal urogenital isaac. Performing Locations *1: This test was performed at: [facility], [address] [place] [address], [id number] , [facility] ([place])02-22-2023 Note Discharge Instructions Thank you for allowing [facility] to assist you with your healthcare needs. [...] may report side effects to FDA at 3-160-JDK-5638. What other drugs will affect cephalexin? Tell your doctor about all your other medicines, especially: metformin; or probenecid. This list is not complete. Other drugs may affect cephalexin, including prescription and rcra-iyt-zfccslw medicines, vitamins, and herbal products. Not all [...] to ensure that the information provided by [employer]. ('Multum') is accurate, up-to-date, and complete, but no guarantee is made to that effect. Drug information contained herein may be time sensitive. [employer] information has been compiled for use by healthcare practitioners and consumers in the [place] and therefore [employer] does not warrant that uses outside of the [place] are appropriate, unless specifically indicated otherwise. [employer]'s drug information does not endorse drugs, diagnose patients or recommend therapy. [employer] drug information isan informational resource designed to [...] effective or appropriate for any given patient. [facility] does not assume any responsibility for any aspect of healthcare administered with the aid of information [facility] provides. The information contained herein is not intended to cover all possible uses, directions, precautions, warnings, drug interactions, allergic reactions, or adverse effects. If you have questions about the drugs you are taking, check with your doctor, nurse or pharmacist. Copyright 1945-6808 [facility]. Version: .. Revision Date: 09/20/2022. Education Materials [...] with you to plan treatment as needed. 2894-2970 [employer]. [address] [place] [address], [place] [address]. All rights reserved. This information is not [...] foods again, start with small amounts of dtyc-ct-hdzfvz, low- fat foods. These include apple sauce, [...] increase stomach acid. Don't use aspirin or uwws-yzd-orxefjc pain and fever medicines, if possible. This includes nonsteroidal anti-inflammatory drugs (NSAIDs). Lose excess weight. Finish eating at least 2 hours before you go to bed or lie down. Raise the head of your bed. 8971-6979 [employer]. [address] [place] [address], [place] [address]. All rights reserved. This information is not intended as a substitute for professional medical care. Always follow yourhealthcare professional's instructions. Additional Information VACCINATE! IT SAVES LIVES! Members of the community who have not yet received the COVID-19 vaccine and would like to receive it can visit one of [facility] vaccine clinics. There are many vaccine clinic locations within the [facility]. For locations and available times, please visit www.[email or web address].[place].gov/. It is important to note that some COVID mobile vaccine clinics are held outdoors and may be canceled in rainy or stormy conditions. To learn more about pediatric vaccinations (ages 5-11), we invite you to visit the [facility] webpage. https://www.[facility].org/pages/9239-Diqie-Zkclkpzpqiv-Rmbqmytobd-Cnwzw-Hld stions.htmlTo learn more about the COVID-19 vaccine, we invite you to visit the CDC website for a list of frequently asked questions. https://www.cdc.gov/coronavirus/2019-ncov/vaccines/faq.html [employer] Patient Portal Access Instructions: Stay connected with your healthcare team and access your personal medical information anytime with the [employer] Patient Portal. If you would like a full copy of your medical records please contact the [facility] Medical Records Department Sunday through Sunday between 8a.m. and 4:30p.m. Please follow the directions below to access the portal: 1.Access the email account you provided upon registration to the hospital.2.Look for an invitation email from [facility].3.Open the email and access the invitation link: Accept Invitation to [employer]4.Fill in the required denson to create your account. Sign into [email or web address] with your username and password that you [...] you will allow to register on the [employer] Patient Portal for access to your information. You can also access the [facility] Patient Portal on the [employer]. Simply click on Health Records under [employer] and then click on the maufait logo. HOW TO SAFELY DISPOSE OF PRESCRIPTION [...] Call your local pharmacy or go to http://bit.Innovacell/5U8Io0h to find one close to you.3.Make use of household items: Use cat litter or old coffee grounds to dispose medications if other options arenot available. Mix your drugs with these household products, seal them in an airtight container andthrow it into the garbage. Call [facility]: [phone] to be sure your drugs can be [...] been reviewed and explained to me and IJEFFERSON KIRSTEN understand my current condition and have read and understand these discharge instructions. I have received a written copy of the plan/instructions. If I have questions, I am aware that I should contact my doctor. Patient/Tumor Registrar Signature: Date/Time: Relationship to Patient: Witness Name/Signature: Date/Time: [facility] Kalyanbobby [id number] Hospital Discharge instructions Patient Education 02/22/2023 18:12:49 [...] with you to plan treatment as needed. 1580-8605 [employer]. [address] [place] [address], [place] [address]. All rights reserved. This information is not [...] foods again, start with small amounts of viuo-ci-xvvtcq, low- fat foods. These include apple sauce, [...] increase stomach acid. Don't use aspirin or rjnm-elz-uveridh pain and fever medicines, if possible. This includes nonsteroidal anti-inflammatory drugs (NSAIDs). Lose excess weight. Finish eating at least 2 hours before you go to bed or lie down. Raise the head of your bed. 1093-[address] [employer] [place] [address]. All rights reserved. This information is not intended as a substitute for professional medical care. Always follow yourhealthcare professional's instructions. Follow Up Care 02/22/2023 14:39:32 With:Go to emergency room if symptoms worsen Address:Unknown When:2-4 days With:PHYSICIAN, NONE Address:Unknown When:2-4 days [facility] 01-01-2023 Hospital Discharge instructions Additional Instructions Regular diet. Okay to shower. No lifting over 25 pounds for 2 to 3 weeks. No tub baths for 2 weeks. No intercourse for 4 to 6 weeks. Call if fevers, chills, chest pain, shortness of breath. Follow-up 1 week blood pressure check, [facility] Phone: 1(764) 491-303312-11-2022 Note Attestation signed by Sarina Carey MD at 01/31/2022 2:50 PM [facility] See note from today no changes in cervix precautions discussed and recommend follow up with Dr. Negrita Anglin tomorrow as scheduled. The patient was told if any concerns we are happy to see her back here at [facility] Follow up with OB as instructed Precautions addressed Stable on discharge without change in cervix Questions answered Recommend twice weekly testing with weekly labs given her pre-eclampsia diagnosis and delivery is recommended at 37 weeks unless indicated sooner. Department of Obstetrics and Gynecology [facility] Discharge Summary Admission on 01/28/2022 10:17 AM Juanita Paulino is a 21 y.o. at 33w6d with Di/Di twins who was transferred to [facility] from [place] for PTL. Patient initially presented c/o CTX 01/27 and was closed, overnight at [place] made change from 2 --> 3cm. She was given BMZx1 and procardia prior to transport. Upon arrival to [facility] patient was found to be 4/70/-3 but comfortable. She was admitted for further observation and continued tocolysis. Patient received a second dose of BMZ in addition to 36 hours of tocolysis. Zhanna met criteria for gHTN v PreEwoSF based on mild range blood pressures >4 hours apart. Initally UPC at [place] was elevated to 0.4 but on repeat at [facility], UPC was 0.25. No anti-hypertensive medications were [...] of delivery Follow up appointment with your doctor/registered nurse midwife - Keep next scheduled appointment on 02/01/2022 Activity - Normal Activity Call your doctor/registered nurse midwife if you have: - leaking fluid - vaginal bleeding - regular contractions: More than 6 contractions in one hour - decreased movement - worsening abdominal (belly) pain - headache, blurry vision, increased swelling, upper abdominal pain Kyaw Andrews MD on 01/31/2022 at 2:25 [facility] 01-28-2022 NotePatient: Juanita Paulino Procedure Information [...] Additional Equipment Requests Regional/Neuraxial Equipment: spinal anesthetic [facility] 01-28-2022 Note Attestation signed by Willow Moscoso DO at 01/29/2022 3:21 PM Hospital Care (Independent): I independently saw and evaluated the patient. I agree with the findings and plan of care as documented in the resident's note. Pt and partner seen 01/28/22. Pt is a 21 y.o. yo at 33w5d transported from [facility] by Dr. Negrita Anglin due to labor, nicolasa twins. Made change from closed to 2 cm dilation at [place]. Given BMZ. Started on Procardia after cervical [...] Currently with di/di twins and presented to [place] last night c/o CTX. Made cervical change from closed to 2cm before transport to [facility]. Was given BMZx1 01/28 0000 and Procardia prior to discharge. Admitted to [facility] for higher level of care. 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 TONSILECTOMY, ADENOIDECTOMY, BILATERAL MYRINGOTOMY AND TUBES Bilateral [...] 36.6 ?C (97.9 ?F) (more content not included)...[facility] Evaluation + Plan note Future Appointments Appointment Date:02/23/2023 04:00:00 PM Scheduled Provider:MICHELLE DOMINIQUE Location:[facility] Appointment Type: SLIP FEEDER SS Diagnostic Tests Pending * Urine Culture 02/22/23 [facility] Evaluation + Plan note Future Appointments Appointment Date:04/20/2023 04:00:00 PM Scheduled Provider:MICHELLE DOMINIQUE Location:[facility] Appointment Type:[facility] Evaluation + Plan note Future Appointments Appointment Date:04/17/2023 02:00:00 PM Scheduled Provider:MEAGHAN YOUNGER Location: [facility] Appointment Type: SLIP FEEDER Appointment Date:04/20/2023 04:00:00 PM Scheduled Provider:MICHELLE DOMINIQUE Location:[facility] Appointment Type:[facility] Evaluation + Plan note Future Appointments Appointment Date:05/23/2023 09:00:00 AM Scheduled Provider:MICHELLE DOMINIQUE APRN-KENZIE Location:[facility] Appointment Type:PC OV Appointment Date:08/06/2023 04:00:00 PM Scheduled Provider:MICHELLE DOMINIQUE Location:[facility] Appointment Type:[facility] Evaluation + Plan note Future Appointments Appointment Date:05/23/2023 09:00:00 AM Scheduled Provider:MICHELLE DOMINIQUE Location:[facility] Appointment Type:PC OV Appointment Date:08/06/2023 04:00:00 PM Scheduled Provider:MICHELLE DOMINIQUE Location:[facility] Appointment Type:PC OV Diagnostic Tests Pending * Food Allergy Profile 05/15/23 [facility] evaluation + Plan note Future Appointments Appointment Date:08/06/2023 04:00:00 PM Scheduled Provider:MICHELLE DOMINIQUE Location:[facility] Appointment Type:PC OV Future Scheduled Tests Laboratory* Stool Gastrointestinal Panel 06/25/23 Radiology* US Abdomen Complete 06/25/23 * US Transvaginal Non OB 06/25/23 [facility] evaluation + Plan note Future Appointments Appointment Date:07/09/2023 01:00:00 PM Scheduled Provider:MICHELLE DOMINIQUE Location:[facility] Appointment Type:PC OV ED Follow Up Appointment Date:08/06/2023 04:00:00 PM Scheduled Provider:MICHELLE DOMINIQUE Location:[facility] Appointment Type:PC OV Future Scheduled Tests Laboratory* Stool Gastrointestinal Panel 06/25/23 [facility] evaluation noteNo assessment information available [facility] Work Phone: evaluation note* Diagnosis Onset Date Resolution Status Vaginal bleeding acute [facility] Work Phone: evaluation note* Diagnosis Onset Date Resolution Status Vaginal bleeding acute Acute postoperative pain acu te delivery delivered resolved Severe pre-eclampsia resolve d [facility] Work Phone: evaluation note* Diagnosis Onset Date [...] Narrative No data available for this section [facility] Hospital Discharge instructions Additional Instructions Chuck Anglin's office will call patient tomorrow to set up an appointment for next week.[facility] Work Phone: Hospital Discharge instructions No data available for this section [facility] Progress note No data available for this section [facility] Reason for referral (narrative)No reason for referral information [facility]WWay[facility] Work Phone: Summary Purpose Family History No [...] Will No February 22 10:57am Power of Rail Specialist No February 22 10:57am Advance Directive Response Recorded Date/ Time Living Will No February 22 9:57am Power of Rail Specialist No February 22 9:57am Advance Directive Response Recorded Date/ Time Living Will No January 28 12:36am Power of Rail Specialist No January 28, 2022 12:36am Advance Directive Response Recorded Date/ Time Living Will No February 04 6:42pm Power of Rail Specialist No February 04, 2022 6:42pm Advance Directive Response Recorded Date/ Time Living Will No February 04, 2 022 7:42pm Power of Rail Specialist No February 04, 2022 7:42pm Advance Directive Response Recorded Date/ Time Do you have a Healthcare Power of Rail Specialist? No July 24, 2024 8:45am Instructions * [...] The doctor may recommend that you take jxct-jvd-aqvtklg medicine, such as loperamide (Imodium), if you [...] Review Problems (Active Problems Only) (SNOMED CT: 847384136, Onset: 04/12/18) Allergic rhinitis caused by pollens (SNOMED CT: 2058755349, Onset: --) ADHD (SNOMED CT: AZEGxwEmLzUcjdGfwKgAAg, Onset: --) Polycystic ovary syndrome (SNOMED CT: [id number], Onset: --) Depression (SNOMED CT: 695785383, Onset: --) Excessive growth of facial hair (SNOMED CT: 659848242, Onset: --) Premature rupture of membranes (SNOMED CT: AZEGxwEmLzUcjSUGwKgAAg, Onset: --) Delivery Summary A Membrane Status Information ROM Type: Spontaneous rupture of membranes Amniotic Fluid Color/Description: Thin meconium Labor Information 2nd Stage Onset Date/Time: 12/23/18 16:34:00 Labor Onset Methods: Spontaneous Precipitous Labor: No Prolonge (more content not included)... Discharge Instructions * Instructions* Myron Morrison, DO - 07/12/2018 Thank you for allowing [...] You may find a provider through the [employer] Physician Referral Service by calling [phone] or by visiting [email or web address] Thank You for choosing the [facility] Emergency Department! * Attachments The following attachments cannot be sent through Care Everywhere. * Abdominal Pain, Early (Tajik) documented in this encounter Chief Complaint and [...] delivered Severe pre-eclampsia Chief Complaint Admit Date [employer] PHYS[employer] June 05 2:09pm EORDERS July 16, 2024 3:02p m Chief Complaint Admit Date [employer] June 05 2:09pm EORDERS July 16, 2024 3:02p m VAG BLEEDING July 24, 2024 8:23a m Chief Complaint Admit Date [employer] PHYSICAL June 05 2:09pm EORDERS July [...] 2024 8:17 am Chief Complaint Admit Date [employer] PHYSICAL June 05 2:09pm EORDERS July 16, 2024 3:02p m VAG BLEEDING July 24, 2024 8:23a m NEW EMPLOYEE July 29, 2024 4:02 pm NEW PATIENT July 30, 2024 8:17 am INT LAB ORDERS July 30, 2024 3:34 pm DIARRHEA, FECAL URGENCY, FECAL INCONTINE NCE, BELCH August 05, 2024 7:22am Chief Complaint Admit Date [employer] NEW EMPLOYEE PHYSICAL June 05 2:09pm EORDERS July 16, 2024 3:02p m VAG BLEEDING July 24, 2024 8:23a m NEW EMPLOYEE July 29, 2024 4:02 pm NEW PATIENT July 30, 2024 8:17 am INT LAB ORDERS July 30, 2024 3:34 pm DIARRHEA, FECAL URGENCY, FECAL INCONTINE NCE, BELCH August 05, 2024 7:22am MED REFILL-OK PER DR MARKS Meli 25th, 2025 2:23pm Chief Complaint Admit Date BMS NEW [...] ORDERS September 02, 2024 1:19 pm FU PER SYLVIA September 05, 2024 7:57 am Reason for [...] 7:5 7am Reason for Visit Admit Date Belching July [...] D deficiency September 05, 2024 7:5 7am Chief Complaint Admit Date BMS NEW EMPLOYEE [...] ORDERS September 02, 2024 1:19 pm FU PER SYLVIA September 05, 2024 7:57 am AUB, Discuss ablation September 18, 2024 8: 33am Reason for Visit Admit Date Belching July [...] D deficiency September 05, 2024 7:5 7am Obesity September 18, 2024 8:33 am PCOS (polycystic ovarian syndrome) September 18, 2024 8:33am Chief Complaint Admit Date [employer]MS NEW EMPLOYEE [...] ORDERS September 02, 2024 1:19 pm FU PER SYLVIA September 05, 2024 7:57 am AUB, Discuss ablation September 18, 2024 8: 33am bleeding, left ovarian cyst September 19, 2024 3:57pm Chief Complaint Admit Date EORDERS July 16, 2024 3:02p m VAG [...] ORDERS September 02, 2024 1:19 pm FU PER SYLVIA September 05, 2024 7:57 am AUB, Discuss ablation September 18, 2024 8: 33am bleeding, left ovarian cyst September 19, 2024 3:57pm EMB and Mirena Insertion *Per SM October 14, 2024 10:52am Chief Complaint Admit Date EORDERS July 16, 2024 3:02p m VAG [...] ORDERS September 02, 2024 1:19 pm FU PER SYLVIA September 05, 2024 7:57 am AUB, Discuss ablation September 18, 2024 8: 33am bleeding, left ovarian cyst September 19, 2024 3:57pm EMB and Mirena Insertion *Per SM October 14, 2024 10:52am RUQ PAIN October 14, 2024 11 :26am ABNORMAL HIDA October 21, 2024 2:35pm Reason for Visit Admit Date Belching July [...] D deficiency September 05, 2024 7:5 7am Obesity September 18, 2024 8:33 am PCOS (polycystic ovarian syndrome) September 18, 2024 8:33am Menorrhagia October 14, 2024 10 :52am Obesity October 14, 2024 10 :52am Encounter for IUD insertion October 14, 2024 10:52am Biliary dyskinesia October 21, 2024 2:35pm Chief Complaint Admit Date EORDERS July 16, 2024 3:02p m VAG [...] ORDERS September 02, 2024 1:19 pm FU PER SYLVIA September 05, 2024 7:57 am AUB, Discuss ablation September 18, 2024 8: 33am bleeding, left ovarian cyst September 19, 2024 3:57pm EMB and Mirena Insertion *Per October 14, 2024 10:52am RUQ PAIN October 14, 2024 11 :26am ABNORMAL HIDA October 21, 2024 2:35pm 8 WEEK FU October 30, 2024 7:59am Chief Complaint Admit Date NEW EMPLOYEE July 29, 2024 4:02 pm NEW PATIENT July 30, 2024 8:17 am INT LAB ORDERS July 30, 2024 3:34 pm DIARRHEA, FECAL URGENCY, FECAL INCONTINE NCE, BELCH August 05, 2024 7:22am MED REFILL-OK PER DR MARKS August 13, 2024 2:23pm Bleeding September 01, 2024 12:5 7pm INT LAB ORDERS September 02, 2024 1:19 pm FU PER SYLVIA September 05, 2024 7:57 am AUB, Discuss ablation September 18, 2024 8: 33am bleeding, left ovarian cyst September 19, 2024 3:57pm EMB and Mirena Insertion *Per October 14, 2024 10:52am RUQ PAIN October 14, 2024 11 :26am ABNORMAL HIDA October 21, 2024 2:35pm 8 WEEK FU October 30, 2024 7:59am HEAVY BLEEDING AFTER IUD INSERTION Octob 2024 4:27pm IUD removal per - discuss OCP November 24, 2024 2:37pm Reason for Visit Admit Date Belching July [...] D deficiency September 05, 2024 7:5 7am Obesity September 18, 2024 8:33 am PCOS (polycystic ovarian syndrome) September 18, 2024 8:33am Menorrhagia October 14, 2024 10 :52am Obesity October 14, 2024 10 :52am Encounter for IUD insertion October 14, 2024 10:52am Biliary dyskinesia October 21, 2024 2:35pm Biliary dyskinesia October 30, 2024 7:59am Metabolic dysfunction-associ ated steatotic liver disease (MASLD) October 30, 2024 7:59am Obesity October 30, 2024 7:59am Vitamin D deficiency October 30 7:59am Contraceptive management November 24 2:37pm Encounter for IUD removal November 24 2:37pm Additional Source Comments INFORMATION SOURCE (unrecogn ized section and content) DATE CREATED AUTHOR 08/10/2017 On License Of [facility] DATE CREATED AUTHOR AUTHOR'S ORGANIZ ATION 11/01/2017 [facility] DATE CREATED AUTHOR AUTHOR'S ORGANIZ ATION 11/10/2017 [facility] DATE CREATED AUTHOR AUTHOR[facility]S [facility]IZ AT[facility] DATE CREATED AUTHOR AUTHOR'S ORGANIZ ATION 01/23/2019 [facility] DATE CREATED AUTHOR AUTHOR'S ORGANIZ ATION 02/09/2022 [facility] DATE CREATED AUTHOR AUTHOR'S ORGANIZ ATION 09/04/2023 [facility] ([place] DATE CREATED AUTHOR AUTHOR'S ORGANIZ ATION 01/06/2024 [facility] DATE CREATED AUTHOR AUTHOR'S ORGANIZ ATION 12/04/2024 [facility] Reason for Visit (unrecogniz ed section and [...] 2024 End: July 30, 2024 Ashley Larose SLIP FEEDER-C Attending Provider Active Start: July 30, 2024 [...] 2024 End: July 30, 2024 Ashley Larose SLIP FEEDER-C Attending Provider Active Start: July 30, 2024 End: July 30, 2024 Ashley Larose SLIP FEEDER-C Referring Provider Active Start: July 30, 2024 End: July 30, 2024 Team Status: Active Member Role Status Dates Dr. Tiffany Marks MD Primary Care Provider Active Start: August 05, 2024 Ashley Larose SLIP FEEDER-C Attending Provider Active Start: August 05, 2024 Ashley Larose SLIP FEEDER-C Referring Provider Active Start: August 05, 2024 Team Status: Inactive Member Role Status Dates Dr. Tiffany Marks MD Primary Care Provider Active Start: August 05, 2024 End: August 05, 2024 Ashley Larose SLIP FEEDER-C Attending Provider Active Start: August 05, 2024 End: August 05, 2024 Ashley Lraose SLIP FEEDER-C Referring Provider Active Start: August 05, 2024 [...] 2024 End: July 30, 2024 Ashley Larose SLIP FEEDER-C Attending Provider Active Start: July 30, 2024 End: July 30, 2024 Ashley Larose SLIP FEEDER-C Referring Provider Active Start: July 30, 2024 End: July 30, 2024 Team Status: Inactive Member Role/Relationship Status Dates Dr. Tiffany Marks MD Primary Care Provider Active Start: August 05, 2024 End: August 05, 2024 Ashley Larose SLIP FEEDER-C Attending Provider Active Start: August 05, 2024 [...] 2024 End: September 01, 2024 Simin Yu NP, SLIP FEEDER-C Attending Provider Active Start: September 01, 2024 End: September 01, 2024 Team Status: Active Member Role/Relationship Status Dates JEFF VELASCO Primary Care Provider Active Team Status: Active Member Role/Relationship Status Dates Dr. Tiffany Marks MD Primary Care Provider Active Start: September 02, 2024 Ashley Larose SLIP FEEDER-C Attending Provider Active Start: September 02, 2024 Ashley Larose SLIP FEEDER-C Referring Provider Active Start: September 02, 2024 Team Status: Inactive Member Role/Relationship Status Dates Ashley Larose NP-C Attending Provider Active Start: September 05, 2024 End: September 05, 2024 MICHELLE MAST , POLE FRAMER MACHINE Primary Care Provider Active Start: September 05, 2024 End: September 05, 2024 MICHELLE MAST , POLE FRAMER MACHINE Referring Provider Active Sta rt: September 05, 2024 End: September 05, 2024 Team Status: Inactive Member Role/Relationship Status Dates Dr. Tiffany Marks MD Primary Care Provider Active Start: September 02, 2024 End: September 02, 2024 Ashley Larose NP-C Attending Provider Active Start: September 02, 2024 End: September 02, 2024 Ashley Larose NP-C Referring Provider Active Start: September 02, 2024 End: September 02, 2024 Team Status: Inactive Member Role/Relationship Status Dates MICHELLE MAST , POLE FRAMER MACHINE Primary Care Provider Active Start: September 10, 2024 End: September 10, 2024 Ashley Larose NP-C Attending Provider Active Start: September 10, 2024 End: September 10, 2024 Ashley Larose NP-C Referring Provider Active Start: September 10, 2024 End: September 10, 2024 Team Status: Active Member Role/Relationship Status Dates Employee Health Attending Provider Active Start: June 05, 2024 Team Status: Active Member Role/Relationship Status Dates MICHELLE MAST , POLE FRAMER MACHINE Primary Care Provider Active Start: June 05, 2024 Health Risk Assessment Attending Provider Active Start: June 05, 2024 Health Risk Assessment Referring Provider Active Start: June 05, 2024 Team Status: Inactive Member Role/Relationship Status Dates MICHELLE MAST , POLE FRAMER MACHINE Primary Care Provider Active Start: July 16, [...] End: August 05, 2024 Ashley Larose NP-C Attending Provider Active Start: August 05, 2024 [...] 01, 2024 End: September 01, 2024 Simin [place] SLIP FEEDER, SLIP FEEDER-C Attending Provider Active Start: September 01, 2024 End: September 01, 2024 Team Status: Inactive Member Role/Relationship Status Dates Dr. Tiffany Marks MD Primary Care Provider Active Start: September 02, 2024 End: September 02, 2024 Ashley Larose SLIP FEEDER-C Attending Provider Active Start: September 02, 2024 End: September 02, 2024 Ashley Larose SLIP FEEDER-C Referring Provider Active Start: September 02, 2024 End: September 02, 2024 Team Status: Inactive Member Role/Relationship Status Dates Ashley Larose SLIP FEEDER-C Attending Provider Active Start: September 05, 2024 End: September 05, 2024 MICHELLE MAST , POLE FRAMER MACHINE Primary Care Provider Active Start: September 05, 2024 End: September 05, 2024 MICHELLE MAST , POLE FRAMER MACHINE Referring Provider Active Sta rt: September 05, 2024 End: September 05, 2024 Team Status: Inactive Member Role/Relationship Status Dates MICHELLE MAST , POLE FRAMER MACHINE Primary Care Provider Active Start: September 10, 2024 End: September 10, 2024 Ashley Larose SLIP FEEDER-C Attending Provider Active Start: September 10, 2024 End: September 10, 2024 Ashley Larose SLIP FEEDER-C Referring Provider Active Start: September 10, 2024 End: September 10, 2024 Team Status: Inactive Member Role/Relationship Status Dates MICHELLE MAST , POLE FRAMER MACHINE Referring Provider Active Sta rt: September 18, 2024 End: September 18, 2024 Dr. Teresa Wilkinson MD Attending Provider Active Start: September 18, 2024 End: September 18, 2024 Team Status: Inactive Member Role/Relationship Status Dates MICHELLE MAST , POLE FRAMER MACHINE Referring Provider Active Sta rt: September 18, 2024 End: September 18, 2024 Dr. Teresa Wilkinson MD Attending Provider Active Start: September 18, 2024 End: September 18, 2024 Team Status: Inactive Member Role/Relationship Status Dates Simin Yu SLIP FEEDER, SLIP FEEDER-C Attending Provider Active Start: September 19, 2024 End: September 19, 2024 Simin Yu SLIP FEEDER, SLIP FEEDER-C Referring Provider Active Start: September 19, 2024 End: September 19, 2024 MICHELLE MAST , POLE FRAMER MACHINE Primary Care Provider Active Start: September 19, 2024 End: September 19, 2024 Team Status: Inactive Member Role/Relationship Status Dates JEFF VELASCO Primary Care Provider Active Start: July 16, 2024 End: July 16, 2024 Libertad Pate NP-C Attending Provider Active Start: July 16, 2024 [...] 05, 2024 End: August 05, 2024 Ashley Thuan , SLIP FEEDER-C Attending Provider Active Start: August 05, 2024 End: August 05, 2024 Ashley Larose SLIP FEEDER-C Referring Provider Active Start: August 05, 2024 [...] 2024 End: September 01, 2024 Simin Yu NP, SLIP FEEDER-C Attending Provider Active Start: September 01, 2024 End: September 01, 2024 Team Status: Inactive Member Role/Relationship Status Dates Dr. Tiffany Marks MD Primary Care Provider Active Start: September 02, 2024 End: September 02, 2024 Ashley Larose NP-C Attending Provider Active Start: September 02, 2024 End: September 02, 2024 Ashley Larose SLIP FEEDER-C Referring Provider Active Start: September 02, 2024 End: September 02, 2024 Team Status: Inactive Member Role/Relationship Status Dates Ashley Larose NP-C Attending Provider Active Start: September 05, 2024 End: September 05, 2024 JEFF VELASCO Primary Care Provider Active Start: September 05, 2024 End: September 05, 2024 MICHELLE DOMINIQUE POLE FRAMER MACHINE Referring Provider Active Sta rt: September 05, 2024 End: September 05, 2024 Team Status: Inactive Member Role/Relationship Status Dates JEFF VELASCO Primary Care Provider Active Start: September 10, 2024 End: September 10, 2024 Ashley Larose SLIP FEEDER-C Attending Provider Active Start: September 10, 2024 End: September 10, 2024 Ashley Larose SLIP FEEDER-C Referring Provider Active Start: September 10, 2024 End: September 10, 2024 Team Status: Inactive Member Role/Relationship Status Dates MICHELLE MAST , POLE FRAMER MACHINE Referring Provider Active Sta rt: September 18, 2024 End: September 18, 2024 Dr. Teresa Wilkinson MD Attending Provider Active Start: September 18, 2024 End: September 18, 2024 Team Status: Inactive Member Role/Relationship Status Dates Simin Yu SLIP FEEDER, SLIP FEEDER-C Attending Provider Active Start: September 19, 2024 End: September 19, 2024 Simin Yu SLIP FEEDER, SLIP FEEDER-C Referring Provider Active Start: September 19, 2024 End: September 19, 2024 MICHELLE MAST , POLE FRAMER MACHINE Primary Care Provider Active Start: September 19, 2024 End: September 19, 2024 Team Status: Inactive Member Role/Relationship Status Dates Simin Yu SLIP FEEDER, SLIP FEEDER-C Attending Provider Active Start: October 14, 2024 End: October 14, 2024 MICHELLE MAST , POLE FRAMER MACHINE Primary Care Provider Active Start: October 14, 2024 End: October 14, 2024 MICHELLE MAST , POLE FRAMER MACHINE Referring Provider Active Sta rt: October 14, 2024 End: October 14, 2024 Team Status: Active Member Role/Relationship Status Dates MICHELLE MAST , POLE FRAMER MACHINE Primary Care Provider Active Start: October 14, 2024 KO Ram Attending Provider Active Start: October 14, 2024 KO Ram Referring Provider Active Start: October 14, 2024 Team Status: Active Member Role/Relationship Status Dates MICHELLE MAST , POLE FRAMER MACHINE Primary Care Provider Active Start: October 14, 2024 Simin Yu SLIP FEEDER, SLIP FEEDER-C Attending Provider Active Start: October 14, 2024 Team Status: Inactive Member Role/Relationship Status Dates MICHELLE MAST , POLE FRAMER MACHINE Primary Care Provider Active Start: October 21, 2024 End: October 21, 2024 Dr. Luis Pandya MD Attending Provider Active Start: October 21, 2024 End: October 21, 2024 Ashley Larose NP-C Referring Provider Active Start: October 21, 2024 End: October 21, 2024 Team Status: Inactive Member Role/Relationship Status Dates MICHELLE MAST , POLE FRAMER MACHINE Primary Care Provider Active Start: October 14, 2024 End: October 14, 2024 Simin Aimee SLIP FEEDER, SLIP FEEDER-C Attending Provider Active Start: October 14, 2024 End: October 14, 2024 Team Status: Inactive Member Role/Relationship Status Dates MICHELLESASHA DOMINIQUE POLE FRAMER MACHINE Primary Care Provider Active Start: October 14, 2024 End: October 14, 2024 KO Ram Attending Provider Active Start: October 14, 2024 End: October 14, 2024 KO Ram Referring Provider Active Start: October 14, 2024 End: October 14, 2024 Team Status: Inactive Member Role/Relationship Status Dates MICHELLE MAST , POLE FRAMER MACHINE Primary Care Provider Active Start: October 30, 2024 End: October 30, 2024 MICHELLE MAST , POLE FRAMER MACHINE Referring Provider Active Sta rt: October 30, 2024 End: October 30, 2024 DELMIS Crenshaw Attending Provider Active Start: October 30, 2024 End: October 30, 2024 Team Status: Active Member Role/Relationship Status Dates MICHELLE DOMINIQUE , POLE FRAMER MACHINE Primary care physician Active Team Status: Active Member Role/Relationship Status Dates Dr. Tiffany Marks MD Primary care physician Active Start: July 29, 2024 Health Risk Assessment Attending physician Active Start: July 29, 2024 Health Risk Assessment Referring Provider Active Start: July 29, 2024 Team Status: Inactive Member Role/Relationship Status Dates MICHELLE DOMINIQUE POLE FRAMER MACHINE Referring Provider Active Sta rt: July 30, 2024 End: July 30, 2024 DELMIS Crenshaw Attending physician Active Start: July 30, 2024 End: July 30, 2024 Dr. Tiffany Marks MD Primary care physician Active Start: July 30, 2024 End: July 30, 2024 Team Status: Inactive Member Role/Relationship Status Dates Dr. Tiffany Marks MD Primary care physician Active Start: July 30, 2024 End: July 30, 2024 DELMIS Crenshaw Attending physician Active Start: July 30, 2024 End: July 30, 2024 DELMIS Crenshaw Referring Provider Active Start: July 30, 2024 End: July 30, 2024 Team Status: Inactive Member Role/Relationship Status Dates Dr. Tiffany Marks MD Primary care physician Active Start: August 05, 2024 End: August 05, 2024 JANIE CrenshawC Attending physician Active Start: August 05, 2024 End: August 05, 2024 Ashley Larose NP-C Referring Provider Active Start: August 05, 2024 End: August 05, 2024 Team Status: Inactive Member Role/Relationship Status Dates Dr. Tiffany Marks MD Primary care physician Active Start: August 13, 2024 End: August 13, 2024 Dr. Tiffany Marks MD Attending physician Active Start: August 13, 2024 End: August 13, 2024 Dr. Tiffany Marks MD Referring Provider Active Start: August 13, 2024 End: August 13, 2024 Team Status: Inactive Member Role/Relationship Status Dates Dr. Tiffany Marks MD Primary care physician Active Start: September 01, 2024 End: September 01, 2024 Dr. Tiffany Marks MD Referring Provider Active Start: September 01, 2024 End: September 01, 2024 Simin Yu NP SLIP FEEDER-C Attending physician Active Start: September 01, 2024 End: September 01, 2024 Team Status: Inactive Member Role/Relationship Status Dates Dr. Tiffany Marks MD Primary care physician Active Start: September 02, 2024 End: September 02, 2024 Ashley Larose NP-C Attending physician Active Start: September 02, 2024 End: September 02, 2024 Ashley Larose NP-C Referring Provider Active Start: September 02, 2024 End: September 02, 2024 Team Status: Inactive Member Role/Relationship Status Dates Ashley Larose NP-C Attending physician Active Start: September 05, 2024 End: September 05, 2024 JEFF VELASCO Primary care physician Active Start: September 05, 2024 End: September 05, 2024 JEFF VELASCO Referring Provider Active Sta rt: September 05, 2024 End: September 05, 2024 Team Status: Inactive Member Role/Relationship Status Dates JEFF VELASCO Primary care physician Active Start: September 10, 2024 End: September 10, 2024 Ashley Larose NP-C Attending physician Active Start: September 10, 2024 End: September 10, 2024 Ashley Larose NP-C Referring Provider Active Start: September 10, 2024 End: September 10, 2024 Team Status: Inactive Member Role/Relationship Status Dates MICHELLE DOMINIQUE , POLE FRAMER MACHINE Referring Provider Active Sta rt: September 18, 2024 End: September 18, 2024 Dr. Teresa Wilkinson MD Attending physician Active Start: September 18, 2024 End: September 18, 2024 Team Status: Inactive Member Role/Relationship Status Dates Simin Yu SLIP FEEDER, SLIP FEEDER-C Attending physician Active Start: September 19, 2024 End: September 19, 2024 Simin Yu NP, SLIP FEEDER-C Referring Provider Active Start: September 19, 2024 End: September 19, 2024 ANDRES VELASCONP Primary care physician Active Start: September 19, 2024 End: September 19, 2024 Team Status: Inactive Member Role/Relationship Status Dates Simin Yu NP, SLIP FEEDER-C Attending physician Active Start: October 14, 2024 End: October 14, 2024 MICHELLESASHA DOMINIQUE , POLE FRAMER MACHINE Primary care physician Active Start: October 14, 2024 End: October 14, 2024 MICHELLE MAST , POLE FRAMER MACHINE Referring Provider Active Sta rt: October 14, 2024 End: October 14, 2024 Team Status: Inactive Member Role/Relationship Status Dates MICHELLESASHA DOMINIQUE , POLE FRAMER MACHINE Primary care physician Active Start: October 14, 2024 End: October 14, 2024 KO Ram Attending physician Active Start: October 14, 2024 End: October 14, 2024 KO Ram Referring Provider Active Start: October 14, 2024 End: October 14, 2024 Team Status: Inactive Member Role/Relationship Status Dates MICHELLE MAST , POLE FRAMER MACHINE Primary care physician Active Start: October 14, 2024 End: October 14, 2024 Simin Yu NP, SLIP FEEDER-C Attending physician Active Start: October 14, 2024 End: October 14, 2024 Team Status: Inactive Member Role/Relationship Status Dates MICHELLESASHA DOMINIQUE , POLE FRAMER MACHINE Primary care physician Active Start: October 21, 2024 End: October 21, 2024 Dr. Luis Pandya MD Attending physician Active Start: October 21, 2024 End: October 21, 2024 Ashley Larose NP-C Referring Provider Active Start: October 21, 2024 End: October 21, 2024 Team Status: Inactive Member Role/Relationship Status Dates MICHELLESASHA DOMINIQUE , POLE FRAMER MACHINE Primary care physician Active Start: October 30, 2024 End: October 30, 2024 MICHELLE MAST , POLE FRAMER MACHINE Referring Provider Active Sta rt: October 30, 2024 End: October 30, 2024 JANIE CrenshawC Attending physician Active Start: October 30, 2024 End: October 30, 2024 Team Status: Active Member Role/Relationship Status Dates MICHELLESASHA DOMINIQUE , POLE FRAMER MACHINE Primary care physician Active Start: November 19, 2024 Dr. Teresa Wilkinson MD Attending physician Active Start: November 19, 2024 Dr. Teresa Wilkinson MD Referring Provider Active Start: November 19, 2024 Team Status: Inactive Member Role/Relationship Status Dates MICHELLE MAST , POLE FRAMER MACHINE Primary care physician Active Start: November 24, 2024 End: November 24, 2024 MICHELLE MAST , POLE FRAMER MACHINE Referring Provider Active Sta rt: November 24, 2024 End: November 24, 2024 Simin Yu NP, NP-C Attending physician Active Start: November 24, 2024 End: November 24, 2024 Team Status: Inactive Member Role/Relationship Status Dates MICHELLESASHA DOMINIQUE , POLE FRAMER MACHINE Primary care physician Active Start: November 19, 2024 End: November 19, 2024 Dr. Teresa Wilkinson MD Attending physician Active Start: November 19, 2024 End: November 19, 2024 Dr. Teresa Wilkinson MD Referring Provider Active Start: November 19, 2024 End: November 19, 2024 FOR RECORDS PERTAINING TO PATIENTS WHO [...] BE BASED ON THE PRIMARY CLINICAL RECORDS. [employer] [facility]. provides no warranty or guarantee of the accuracy or completeness of information in this document.
--- OUTSIDE RECORDS SUMMARY | 2024-12-04 06:03 | XMS RPT_ITS | CCD ---
Author Organization [facility] Care Team Providers Care Gas And Oil Servicer Name Role Phone AUSTEN, WALTER Unavailable Unavailable [...] NONE Primary Care Physician Unavailab le MAST MAGICIAN/ILLUSIONIST-VISUAL MERCHANDISING ASSOCIATE, MICHELLE Primary Care Physician PHYSICIAN, NONE Primary Care Unavailable ANDREEA BEJARANO, DR BLAYNE Parikh Attending Unavailabl IVANA Lima MD Attending Unavail able MAST MAGICIAN/ILLUSIONIST-VISUAL MERCHANDISING ASSOCIATE, MICHELLE Primary Care Unavailabl e MARTELL BEJARANO, DR ZEYNEP Nichols Attending Unavai lable MAST MAGICIAN/ILLUSIONIST-VISUAL MERCHANDISING ASSOCIATE, MICHELLE Primary Care Unavailabl e PHYSICIAN, NONE Primary Care Unavailable ANDREEA BEJARANO, DR BLAYNE Parikh Attending Unavailabl michael SANTANA MD, DR SHAW Attending Unavailab le MAST MAGICIAN/ILLUSIONIST-VISUAL MERCHANDISING ASSOCIATE, MICHELLE Primary Care Unavailabl e DERIK MAGICIAN/ILLUSIONIST-VISUAL MERCHANDISING ASSOCIATE, ARACELIS Attending Unavailab le MAST MAGICIAN/ILLUSIONIST-VISUAL MERCHANDISING ASSOCIATE, MICHELLE Primary Care Unavailabl e DERIK MAGICIAN/ILLUSIONIST-VISUAL MERCHANDISING ASSOCIATE, SAYEDA Attending Unavailab le MAST MAGICIAN/ILLUSIONIST-VISUAL MERCHANDISING ASSOCIATE, MICHELLE Primary Care Unavailabl e MAST MAGICIAN/ILLUSIONIST-VISUAL MERCHANDISING ASSOCIATE, MICHELLE Attending Unavailabl e PHYSICIAN, NONE Primary Care Unavailable DERIK MAGICIAN/ILLUSIONIST-VISUAL MERCHANDISING ASSOCIATE, SAYEDA Attending Unavailab le MAST MAGICIAN/ILLUSIONIST-VISUAL MERCHANDISING ASSOCIATE, MICHELLE Primary Care Unavailabl e MAST MAGICIAN/ILLUSIONIST-VISUAL MERCHANDISING ASSOCIATE, MICHELLE Attending Unavailabl e MAST MAGICIAN/ILLUSIONIST-VISUAL MERCHANDISING ASSOCIATE, MICHELLE Primary Care Unavailabl e DERIK MAGICIAN/ILLUSIONIST-VISUAL MERCHANDISING ASSOCIATE, EAGLEEDA Attending Unavailab le MAST MAGICIAN/ILLUSIONIST-VISUAL MERCHANDISING ASSOCIATE, MICHELLE Primary Care Unavailabl e MARTELL BEJARANO, DR ZEYNEP Nichols Attending Unavai lable MAST MAGICIAN/ILLUSIONIST-VISUAL MERCHANDISING ASSOCIATE, MICHELLE Primary Care Unavailabl e MAST MAGICIAN/ILLUSIONIST-VISUAL MERCHANDISING ASSOCIATE, MICHELLE Primary Care Unavailabl e DERIK MAGICIAN/ILLUSIONIST-VISUAL MERCHANDISING ASSOCIATE, EAGLEEDA Attending Unavailab le Health, Employee Attending Provider MAST COMPUTER TAPE LIBRARIAN, MICHELLE Primary Care Provider [phone] Assessment, Health Risk Attending Provider Unava ilable Assessment, Health Risk Referring Provider Unava ilable Herlinda RECRUITMENT SPECIALIST-CLibertad Attending Provider [phone] Herlinda RECRUITMENT SPECIALIST-CLibertad Referring Provider Dr. Zurdo Maldonado DO Emergency Provider [phone] Selina BEJARANO, Dr. Allen Primary Care Provider MAST COMPUTER TAPE LIBRARIAN, MICHELLE Referring Provider Thuan SIMMS-Ashley Hilario Attending Provider Dr. Zurdo Maldonado DO Attending Provider [phone] Thuan RECRUITMENT SPECIALIST-CAshley Referring Provider Dr. Tiffany Marks MD Attending Provider Selina BEJARANO, Dr. Allen Referring Provider Aimee SIMMS-Simin Hilario Attending Provider [phone] Jaja BEJARANO, Dr. Moore Attending Provider [phone] Aimee RECRUITMENT SPECIALIST-CSimin Referring Provider MAST COMPUTER TAPE LIBRARIAN, MICHELLE Primary Care Provider [phone] Assessment, Health Risk Attending Provider Unava ilable Assessment, Health Risk Referring Provider Unava ilable Atanasov PA, Roxanne Attending Provider [phone] Roxanne Gale Referring Provider [phone] Ya BEJARANO, Dr. Luis Dai Attending Provider Selina BEJARANO, Dr. Allen Primary Care Physician Assessment, Health Risk Attending Physician Unav ailable Thuan RECRUITMENT SPECIALIST-C, Ashley Attending Physician [phone] Selina BEJARANO, Dr. Allen Attending Physician [phone] Aimee RECRUITMENT SPECIALIST-C, Simin Attending Physician [phone] MAST COMPUTER TAPE LIBRARIAN, MICHELLE Primary Care Physician [phone] Jaja BEJARANO, Dr. Moore Attending Physician Roxanne Gale Attending Physician [phone] Ya BEJARANO, Dr. Luis Dai Attending Physician [phone] Jaja BEJARANO, Dr. Moore Referring Provider Luis Pandya Attending Unavailable MAST, MICHELLE Primary Care Unavailable ThuanJenniferAshley Referring Unavailable MAST, MICHELLE Primary Care Unavailable MAST, MICHELLE Referring Unavailable Hereford RECRUITMENT SPECIALISTSimin Attending Unavailable Selina, Tiffany Primary Care Unavailable ThuanJenniferAshley Attending Unavailable MAST, MICHELLE Referring Unavailable Wallingford, Tiffayn Primary Care Unavailable Wallingford, Tiffany Referring Unavailable [place]ingford, Tiffany Attending Unavailable [place], Tiffany Primary Care Unavailable Zurdo Maldonado Attending Unavailable BarkmanLibertad Referring Unavailable Libertad Pate Attending Unavailable MAST, MICHELLE Primary Care Unavailable Luis Pandya Referring Unavailable Luis Pandya Attending Unavailable MAST, MICHELLE Primary Care Unavailable MAST, MICHELLE Primary Care Unavailable Hereford RECRUITMENT SPECIALIST, Simin Attending Unavailable MAST, MICHELLE Primary Care Unavailable MAST, MICHELLE Referring Unavailable Thuan, Ashley Attending Unavailable MAST, MICHELLE Primary Care Unavailable Teresa Wilkinson Referring Unavailable Teresa Wilkinson Attending Unavailable [place]ingford, Tiffany Primary Care Unavailable Thuan, Ashley Referring Unavailable Thuan, Ashley Attending Unavailable Wallingford, Tiffany Primary Care Unavailable ThuanAshley Attending Unavailable Thuan, Ashley Referring Unavailable [place]ingford, Tiffany Primary Care Unavailable Thuan, Ashley Referring [...] Unavailable MAST, MICHELLE Primary Care Unavailable Aimee RECRUITMENT SPECIALIST, Simin Attending Unavailable Hereford RECRUITMENT SPECIALIST, Simin Referring Unavailable Wallingford, Tiffany Primary Care Unavailable Selina, Tiffany Referring Unavailable Aimee RECRUITMENT SPECIALIST, Simin Attending Unavailable ThuanAshley Attending Unavailable MAST, MICHELLE Primary Care Unavailable MAST, MICHELLE Referring Unavailable MAST, MICHELLE Primary Care Unavailable MAST, MICHELLE Referring Unavailable Aimee RECRUITMENT SPECIALIST, Simin Attending Unavailable MAST, MICHELLE Primary Care Unavailable MAST, MICHELLE Referring Unavailable Hereford RECRUITMENT SPECIALIST, Simin Attending Unavailable Allergies Allergy Classification Reported Allergen(s) Allergy Type Date of Onset Reaction(s) Facility (1 source) Neomycin; Translations: [neomycin ophthalmic] Drug Allergy [facility] Repository Medications Current Medications Medication Drug Class(es) [...] BID, # 60 tab(s), 11 Refill(s), Pharmacy: [facility]/pharmacy #[id number], PCOS (polycystic ovary syndrome) of bilateral ovaries, 170, cm, 04/20/23 16:05:00 EST, Height, kg, 04/20/23 16:05:00 EST, Dosing Weight Start Date: 04/23/23 Status: Ordered Start: 02-26-2023 MetFORMIN (Eqv -Glucophage XR) 500 mg oral tablet, EXTENDED RELEASE Dose : 500 mg = 1 tab(s), Oral, qDay, # 30 tab(s), 11 Refill(s), Pharmacy: [facility]/pharmacy #[id number], PCOS (polycystic ovary syndrome) of bilateral [...] food, # 30 tab(s), 11 Refill(s), Pharmacy: [facility]/pharmacy #[id number], PCOS (polycystic ovary syndrome) of bilateral ovaries Hirsutism, 170, cm, 04/20/23 16:05:00 EST, Height, kg, 04/20/23 16:05:00 EST, Dosing Weight Start Date: 04/20/23 Status: Ordered Start: 02-26-2023 spironolactone 25 mg oral tablet Dose : 25 mg = 1 tab(s), Oral, qDay, Take with food, # 30 tab(s), 11 Refill(s), Pharmacy: [facility]/pharmacy #[id number], PCOS (polycystic ovary syndrome) of bilateral [...] 0 Refill(s), 04/25/23 9:41:00 AM EST, Pharmacy: [facility]/pharmacy #[id number], 172, cm, 02/23/23 15:59:00 EST, Height, [...] sharps container, alcohol wipes, and needles/syringes levonorgestrel 0.480255 mg/hr intrauterine system (6 sources) Progestin, Progestin-containi [...] nausea/vomiting, # 12 tab(s), 0 Refill(s), Pharmacy: [facility]/pharmacy #[id number], Nausea with vomiting, 173.8, cm, 06/25/23 16:22:00 [...] postoperative pain Other acute postprocedural pain Pnv No.690-Vz-Uf9-Dha-Ep a-Fish ( Gummies) 400 mcg-35 mg- 25 mg-5 mg Tablet,Chewable (20 sources) Start: 11-26-2021 End: 10-17-2023 Pnv No.883-Mi-Bg7-Dha-Epa -Fish ( Gummies) 400 mcg-35 mg- 25 mg-5 mg Tablet,Chewable Discontinued 2 {tbl} PO DAILY November 26, 2021 12:00am October 17, 2023 11:34am Start: 11-26-2021 End: 10-17-2023 Pnv No.034-Ys-Mx6-Dha-Epa-Fi sh ( Gummies) 400 mcg-35 mg- 25 mg-5 mg Tablet,Chewable Discontinued 2 {tbl} PO DAILY November 26, 2021 12:00am October 17, 2023 11:34am Start: 11-26-2021 take 2 tablets by mo [facility] once daily Pnv No.895-It-Hk7-Ume-Abg-Ihlq ( Gummies) 400 mcg-35 mg- 25 mg-5 mg Tablet,Chewable Active 2 TABLET PO DAILY November 25, 2021 11:00pm Start: 11-26-2021 take 2 tablets by mo [facility] once daily Pnv No.410-Wr-Qi1-Vqf-Zea-Fcbf ( Gummies) 400 mcg-35 mg- 25 mg-5 [...] diet, recom mend AOM- qsymia or contrave. sustainment logistics analyst consult ordered Other nutritional; endocrine; and metabolic [...] 12 Lead EKGon 11-25-2024 12 Lead EKG [facility] [address] [place] [address] 12 Lead EKG 11/25/24 0956 MR#: [id number] Acct: [id number] Name: JUANITA PAULINO Rep #: [id number] : 2000 24 From: Agusto Powers MD Attending Dr: Dr. Luis Pandya MD Status: [place] [facility] Ordering Dr: Keyur Neal MD Date: 11/25/24 Location: [facility] Sex: F C Admitted: Test Reason : PREOP Blood Pressure : */* mmHG Vent. Rate : 77 BPM Atrial Rate : 77 BPM P-R Int : 164 ms QRS Dur : 100 ms QT Int : 388 ms P-R-T Axes : 23 66 24 degrees QTcB Int : 439 ms Normal sinus rhythm Normal ECG Confirmed by AGUSTO POWERS MD ([id number]), commercial production editor ALFONSO GONZALEZ ([id number]) on 11/25/2024 1:47:18 PM Referred By: Luis Pandya Confirmed By: AGUSTO POWERS MD 11/25/24 1347 Date Agusto Powers MD CC: Dr. Keyur Neal MD; Dr. Luis Pandya MD; JEFF VELASCO Signed Normal [facility] Basic Metabolic Profile (BMP )on 11-25-2024 BUN/CRE 14.5 RATIO Normal 10-20 [facility] Comment on above: Performed By: #### L 500.2500 #### [facility] [address] [place], [address] Calcium [Mass/Vol] 9.5 mg/dL Normal 7.6-11.0 [facility] Comment on above: Performed By: #### L 500.2500 #### [facility] [address] [place], [address] Chloride [Moles/Vol] 105 mmol/L Normal 98-108 [facility] Comment on above: Performed By: #### L 500.2500 #### [facility] [address] [place], [address] CO2 [Moles/Vol] 22.7 mmol/L Normal 21.0-32.0 [facility] Comment on above: Performed By: #### L 500.2500 #### [facility] [address] [place], [address] Creatinine [Mass/Vol] 0.65 mg/dL Low 0.70-1.20 [facility] Comment on above: Performed By: #### L 500.2500 #### [facility] [address] [place], [address] ECRCL 197.87 ml/min Normal 50-250 [facility] Comment on above: Performed By: #### L 500.2500 #### [facility] [address] [place], [address] GAP 13 Normal 5-15 [facility] Comment on above: Performed By: #### L 500.2500 #### [facility] [address] [place], [address] GFR/1.73 sq M.predicted among non-blacks MDRD (S/P/Bld) [Vol rate/Area] 124 mL/min/{1.73_m2} Normal >60 [facility] Comment on above: Result Comment: mL/m in/1.73m2 CKD-EPI Creatinine Equation (2020) Performed By: #### L 500.2500 #### [facility] [address] [place], [address] Glucose [Mass/Vol] 94 mg/dL Normal 70-99 [facility] Comment on above: Performed By: #### L 500.2500 #### [facility] [address] [place], [address] Potassium [Moles/Vol] 3.8 mmol/L Normal 3.3-5.1 [facility] Comment on above: Performed By: #### L 500.2500 #### [facility] [address] [place], [address] Sodium [Moles/Vol] 141 mmol/L Normal 133-145 [facility] Comment on above: Performed By: #### L 500.2500 #### [facility] [address] [place], [address] Urea nitrogen [Mass/Vol] 10 mg/dL Normal 4-19 [facility] Comment on above: Performed By: #### L 500.2500 #### [facility] [address] [place], [address] Building Rental Manager Office Visit Reporton 11-24-2024 Building Rental Manager Office Visit Report [facility] [address], [address] [place] [address] OFFICE VISIT Date of Service: 11/24/24 MR#: [id number] Acct: [id number] Name: JUANITA PAULINO Rep #: [id number] : 2000 Provider: DELMIS demarco Age/Sex: 24/F Location: [facility] Status: Signed Intake Vital Signs 10/30/24 [...] - discuss OCP Chief Complaint: IUD removal Chemical Etch Operator Required: No Is patient in pain?: No [...] menopausal: No Patient : No : No [facility] Medical History Wears glasses Depression Anxiety Cholinesterase [...] 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 Normal [facility] Absolute lymphocyte countOrd ered By: Teresa Wilkinson on 11-19-2024 Lymphocytes Auto (Unsp spec) [#/Vol] 2.30 10*3/uL 0.83-4.51 [facility] Absolute neutrophil countOrd ered By: Teresa Wilkinson on 11-19-2024 Neutrophils (Bld) [#/Vol] 4.5 10*3/uL 2.0-7.7 [facility] Automated blood erythrocyte countOrdered By: Teresa Wilkinson on 11-19-2024 RBC (Bld) [#/Vol] 4.83 10*6/uL Normal 4.2-5.4 [facility] Comment on above: Performed By: #### L 100.0100 #### [facility] [address] [place], [place], [address] Automated blood hematocrit ( percentage)Ordered By: Teresa Wilkinson on 11-19-2024 Hematocrit (Bld) [Volume fraction] 37.8 % Normal 37-47 [facility] Comment on above: Performed By: #### L 100.0100 #### [facility] [address] [place], [place], [address] Automated lymphocyte count a s percentage of total leukocytesOrdered By: Teresa Wilkinson on 11-19-2024 Lymphocytes/100 WBC Auto (Unsp spec) 30.3 % 19-41 [facility] Basophil percentageOrdered B y: Teresa Wilkinson on 11-19-2024 Basophils/100 WBC (Bld) 0.5 % Normal 0-1 [facility] Comment on above: Performed By: #### L 100.0100 #### [facility] [address] [place], [address] CBC W/Diff, Automatedon 10-0 Absolute Lymph 2.30 X10 3/uL Normal 0.83-4.51 [facility] Comment on above: Performed By: #### L 100.0100 #### [facility] [address] [place], [address] Absolute Neut 4.5 X10 3/uL Normal 2.0-7.7 [facility] Comment on above: Performed By: #### L 100.0100 #### [facility] [address] [place], [address] IG% 0.300 Normal 0.0-0.9 [facility] Comment on above: Result Comment: IG% - Immature Granulocytes (promyelocytes, myelocytes and metamyelocytes) > 1% indicates that a LEFT SHIFT is Present. Performed By: #### L 100.0100 #### [facility] [address] [place], [address] Lymphocytes/100 WBC (Bld) 30.3 % Normal 19-41 [facility] Comment on above: Performed By: #### L 100.0100 #### [facility] [address] [place], [address] Nucleated RBC (Bld) [#/Vol] 0 10*3/uL Normal 0-5 [facility] Comment on above: Performed By: #### L 100.0100 #### [facility] [address] [place], [address] RDW SD 38.4 fl Normal 35.1-43.9 [facility] Comment on above: Performed By: #### L 100.0100 #### [facility] [address] [place], [address] Eosinophil percentageOrdered By: Teresa Wilkinson on 11-19-2024 Eosinophils/100 WBC (Bld) 2.0 % Normal 0-5 [facility] Comment on above: Performed By: #### L 100.0100 #### [facility] [address] [place], [place], [id number] (633) Erythrocyte distribution wid th ratioOrdered By: Teresa Wilkinson on 11-19-2024 Erythrocyte distribution width (RBC) [Ratio] 13.5 % Normal 11.6-14.6 [facility] Comment on above: Performed By: #### L 100.0100 #### [facility] [address] [place], [address] Erythrocyte distribution wid th standard deviationOrdered By: Teresa Wilkinson on 11-19-2024 Erythrocyte distribution width (RBC) [Ratio] 38.4 fl 35.1-43.9 [facility] Hemoglobin measurementOrdere d By: Teresa Wilkinson on 11-19-2024 Hemoglobin (Bld) [Mass/Vol] 12.5 g/dL Normal 12.0-15.0 [facility] Comment on above: Performed By: #### L 100.0100 #### [facility] [address] [place], [address] Immature granulocytes/100 WB C Auto (Bld)Ordered By: Teresa Wilkinson on 11-19-2024 Immature granulocytes/100 WBC (Bld) 0.300 % 0.0-0.9 [facility] Comment on above: IG% - Immature Granu locytes (promyelocytes, myelocytes and metamyelocytes) > 1% indicates that a LEFT SHIFT is Present. MCV (mean corpuscular volume ) determinationOrdered By: Teresa Wilkinson on 11-19-2024 MCV (RBC) [Entitic vol] 78.3 fL Low 81-99 [facility] Comment on above: Performed By: #### L 100.0100 #### [facility] [address] [place], [place], [id number] Mean corpuscular hemoglobin (MCH) determinationOrdered By: Teresa Wilkinson on 11-19-2024 MCH (RBC) [Entitic mass] 25.9 pg Low 27.0-32.0 [facility] Comment on above: Performed By: #### L 100.0100 #### [facility] [address] [place], [address] Mean corpuscular hemoglobin concentration (MCHC) determinationOrdered By: Teresa Wilkinson on 11-19-2024 MCHC (RBC) [Mass/Vol] 33.1 g/dL Normal 32-36 [facility] Comment on above: Performed By: #### L 100.0100 #### [facility] [address] [place], [address] Mean platelet volume determi nationOrdered By: Teresa Wilkinson on 11-19-2024 Platelet mean volume (Bld) [Entitic vol] 12.1 fL High 6.2-12.0 [facility] Comment on above: Performed By: #### L 100.0100 #### [facility] [address] [place], [address] Monocyte percentageOrdered B y: Teresa Wilkinson on 11-19-2024 Monocytes/100 WBC (Bld) 7.0 % Normal 0-10 [facility] Comment on above: Performed By: #### L 100.0100 #### [facility] [address] [place], [address] Neutrophil percentageOrdered By: Teresa Wilkinson on 11-19-2024 Neutrophils/100 WBC (Bld) 59.9 % Normal 47-70 [facility] Comment on above: Performed By: #### L 100.0100 #### [facility] [address] [place], [address] Nucleated red blood cell per centageOrdered By: Teresa Wilkinson on 11-19-2024 Nucleated RBC/100 WBC (Bld) [Ratio] 0 % 0-5 [facility] Pelvic w/ Transvaginalon Pelvic w/ Transvaginal [facility] [address] [place] [address] Pelvic w/ Transvaginal MR#: [id number] Acct: [id number] Name: JUANITA PAULINO Rep #: [id number] : 2000 F 24 From: Holden Love MD PCP: JEFF VELASCO Status: REG CLI Study: Pelvic w/ Transvaginal Date of Exam: 11/19/24 Exam# [id number] Ordering Dr: Teresa Wilkinson PROCEDURE: PELVIC W/ [...] is incompletely distended US/Pelvic w/ Transvaginal IMPRESSION: Certified Addiction Counselor notes IUD in the lower uterine segment, it does not extend to the fundus. Simple left adnexal cyst, no specific follow-up No free fluid Reading Location: [facility] CC: Dr. Teresa Wilkinson MD; JEFF VELASCO Photographic Process Screen Maker: Signed Normal [facility] Platelet countOrdered By: Jersey Wilkinson on 11-19-2024 Platelets (Bld) [#/Vol] 271 10*3/uL Normal 150-450 [facility] Comment on above: Performed By: #### L 100.0100 #### [facility] [address] [place], [address] White blood cell (WBC) count Ordered By: Teresa Wilkinson on 11-19-2024 WBC (Bld) [#/Vol] 7.6 10*3/uL Normal 4.4-11.0 [facility] Comment on above: Performed By: #### L 100.0100 #### [facility] [address] [place], [address] Gastroenterology Visit Repor ton 10-30-2024 Gastroenterology Visit Report [facility] [address] [place] [address] OFFICE VISIT Date of Service: 10/30/24 MR#: [id number] Acct: [id number] Name: JUANITA PAULINO Rep #: [id number] : 2000 Provider: DELMIS jones Age/Sex: 24/F Location: [facility] Status: Signed Intake Vital Signs 09/05/24 08:08 [...] Reasons: 8 WEEK FU Chief Complaint: follow-up Chemical Etch Operator Required: No Accompanied by: Self Is patient [...] status: 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 Normal [facility] Surgery Visit Reporton 10-21 Surgery Visit Report [facility] [address] [place] [address] OFFICE VISIT Date of Service: 10/21/24 MR#: [id number] Acct: [id number] Name: JUANITA PAULINO Rep #: [id number] : 2000 Provider: Dr. 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 Normal [facility] Hepatobilliary Img w/Pharm I nton 10-14-2024 Hepatobilliary Img w/Pharm Int [facility] [address] [place] [address] Hepatobilliary Img w/Pharm Int MR#: [id number] Acct: [id number] Name: JUANITA PAULINO Rep #: [id number] : 2000 F 24 From: Reagan Lott PCP: JEFF VELASCO Status: REG CLI Study: Hepatobilliary Img w/Pharm Int Date of Exam: 0 10/14/24 Exam# [id number] Ordering Dr: Roxanne De La Cruz PROCEDURE: [...] 2. Negative hepatobiliary scan, otherwise. Reading Location: [place] [address] CC: JEFF VELASCO; KO Ram Photographic Process Screen Maker: Signed Normal [facility] Laboratory - Chemistry and C hemistry - challengeOrdered By: Simin Yu on 10-14-2024 HCG ( test) Ql (U) Negative [facility] Building Rental Manager Office Visit Reporton 10-14-2024 Building Rental Manager Office Visit Report [facility]'s [address] [place] [address] OFFICE VISIT Date of Service: 10/14/24 MR#: [id number] Acct: [id number] Name: JUANITA PAULINO Rep #: [id number] : 2000 Provider: DELMIS demarco Age/Sex: 24/F Location: [facility] Status: Signed with Addjefferson comprehensive [facility] ADDENDUM by Floresita Anglin on 10/14/24 [...] Performing Provider: DELMIS Almonte NP Performing Location: [facility] Administered by: DELMIS Almonte NP on 10/14/24 11:20 Dose Route Admin Location Dispensed Lot Number Expiration Date NDC Man ufacturer [address] 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 Normal [facility] Surgery Specimen Level Miguel 10-14-2024 Surgery Specimen Level IV Patient Age/Sex Location Account Attending Physician JUANITA PAULINO LABSPEC [id number] DELMIS Almonte Specimen: [id number] Received: 10/14/24 Status: DOMINIQUE Soto Num: [id number] Spec Type: ENDOM BX/C Michelle Dr: Simin uY, JANIEC HEADER OPERATION: Endometrial biopsy PRE-OP DIAGNOSIS: [...] the specimen is unlikely to survive processing. NC 10/14/2024 CPT:14489 Patient Age/Sex Location Account Attending Physician JUANITA PAULINO LABSPEC [id number] DELMIS Almonte Signed (signature on file) Dr. Aurea Keyes MD 10/27/24 1643 Normal [facility] Comment on above: Performed By: #### L 3410.9992, L500.3400 #### [facility] Laboratory [address] [place], [place], [id number] CR w/ Reflex Mult Confirmon 09-21-2024 ANTI-DNA (DS)AB TNP Normal [facility] Comment on above: Performed By: #### L 3410.9992, L500.3400 #### [facility] [address] [place], [place], [id number] ANTI-SS-A TNP Normal [facility] Comment on above: Performed By: #### L 3410.9992, L500.3400 #### [facility] [address] [place], [place], [address] ANTI-SS-B TNP Normal [facility] Comment on above: Performed By: #### L 3410.9992, L500.3400 #### [facility] Laboratory [address] [place], [place], [address] Pelvic w/ Transvaginalon Pelvic w/ Transvaginal [facility] Imaging Services [address] [place], [place] [address] Pelvic w/ Transvaginal MR#: [id number] Acct: [id number] Name: JUANITA PAULINO Rep #: [id number] : 2000 F 24 From: Addy Pierce MD PCP: JEFF VELASCO Status: REG CLI Study: Pelvic w/ Transvaginal Date of Exam: 09/19/24 Exam# [id number] Ordering Dr: Simin Yu NP RECRUITMENT SPECIALIST -C PROCEDURE: PELVIC W/ TRANSVAGINAL 09/19/2024 REASON [...] w/ Transvaginal IMPRESSION: As above. Reading [facility] CC: RECRUITMENT SPECIALIST-C Simin Yu; JEFF VELASCO Photographic Process Screen Maker: Signed Normal [facility] Building Rental Manager Office Visit Reporton 09-18-2024 Building Rental Manager Office Visit Report [facility]'s [address], [address] [place] [address] OFFICE VISIT Date of Service: 09/18/24 MR#: [id number] Acct: [id number] Name: JUANITA PAULINO Rep #: [id number] : 2000 Provider: Dr. 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 Normal [facility] ANCAon 09-11-2024 Atypical pANCA <1:20 Normal Neg:<1:20 [facility] Comment on above: Result Comment: The atypical pANCA pattern has been observed in a significant percentage of patients with ulcerative colitis, primary sclerosing cholangitis and autoimmune hepatitis. Performed By: #### L 3410.9992, L500.3400 #### [facility] Laboratory [address] [place], [address] Cytoplasmic Ab <1:20 Normal Neg:<1:20 [facility] Comment on above: Performed By: #### L 3410.9992, L500.3400 #### [facility] [address] [place], [address] Perinuclear Ab. <1:20 Normal Neg:<1:20 [facility] Comment on above: Result Comment: The presence of positive fluorescence exhibiting P-ANCA or C-ANCA patterns alone is not specific for the diagnosis of Francesco's Granulomatosis (WG) or microscopic polyangiitis. Decisions about treatment should not be based solely on ANCA IFA results. The International ANCA Group Consensus recommends follow up testing of positive sera with both LA- 3 and MPO-ANCA enzyme immunoassays. As many as 5% serum samples are positive only by EIA. Ref. AM J Clin Pathol 1999;111:507-513. Performed By: #### L 3410.9992, L500.3400 #### [facility] [address] [place], [address] Anti-Mitochondrial ABon - ANTIMITOCHON AB <20.0 Normal 0.0-20.0 [facility] Comment on above: Result Comment: Nega tive 0.0 - 20.0 Equivocal 20.1 - 24.9 Positive >24.9 Mitochondrial (M2) Antibodies are found in 90-96% of patients with primary biliary cirrhosis. Performed By: #### L 3410.9992, L500.3400 #### [facility] [address] [place], [address] Anti-Smooth Muscle ABSon ANTISMOOTH MUSC 10 Units Normal 0-19 [facility] Comment on above: Result Comment: Nega tive 0 - 19 Weak positive 20 - 30 Moderate to strong positive >30 Actin Antibodies are found in 52-85% of patients with autoimmune hepatitis or chronic active hepatitis and in 22% of patients with primary biliary cirrhosis. Performed By: #### L 3410.9992, L500.3400 #### [facility] [address] [place], [address] Ceruloplasminon 09-11-2024 CERULOPLASMIN 32.5 mg/dL Normal 19.0-39.0 [facility] Comment on above: Result Comment: Perf ormed at: [facility] [address] [id number] [employer]ing System Repairer: Gilles Carey PhD, Phone: [phone] Performed By: #### L 3410.9992, E824.3400 #### [facility] [address] [place], [address] Calculated very low density lipoprotein (VLDL) cholesterol measurementOrdered By: Ashley Larose on 09-10-2024 Calculated very low density lipoprotein (VLDL) cholesterol measurement 54 mg/dL High 5-40 [facility] Ferritinon 09-10-2024 Ferritin [Mass/Vol] 135 ng/mL Normal 22-378 [facility] Comment on above: Performed By: #### L 3410.9992, L500.3400 #### [facility] [address] [place], [address] Hemoglobin A1con 09-10-2024 HbA1c (Bld) [Mass fraction] 5.1 % Normal <=5.6 [facility] Comment on above: Result Comment: Norm al < 5.7 % Prediabetic 5.7 - 6.4 % Diabetic >or= 6.5 % Please note range changes. Performed By: #### L 3410.9992, L500.3400 #### [facility] [address] [place], [address] Hemoglobin A1c percentageOrd ered By: Ashley Larose on 09-10-2024 HbA1c (Bld) [Mass fraction] 5.1 % <5.7 [facility] Comment on above: Normal < 5.7 % Predi abetic 5.7 - 6.4 % Diabetic >or= 6.5 % Please note range changes. Iron measurement (mass/mass) Ordered By: Ashley Larose on 09-10-2024 Iron (Unsp spec) [Mass/Mass] 54 ug/dL 50-170 [facility] Iron+Iron Binding Capacityon 09-10-2024 Iron [Mass/Vol] 54 ug/dL Normal 50-170 [facility] Comment on above: Performed By: #### L 3410.9992, L500.3400 #### [facility] [address] [place], [address] IRON SATURATION 13.0 Normal 13-59 [facility] Comment on above: Performed By: #### L 3410.9992, L500.3400 #### [facility] [address] [place], [address] TIBC 428 ug/dL Normal 250-450 [facility] Comment on above: Performed By: #### L 3410.9992, L500.3400 #### [facility] [address] [place], [address] UIBC 374 ug/dL Normal 228-428 [facility] Comment on above: Performed By: #### L 3410.9992, L500.3400 #### [facility] [address] [place], [address] LDL calc ser/plasOrdered By: Ashley Larose on 09-10-2024 Cholesterol in LDL [Mass/Vol] 153 mg/dL [facility] Comment on above: Cqmaziqpho=433-580 m g/dL & Higher Rukz=623 mg/dL or greater Lipid Profileon 09-10-2024 CHOL:HDL 5.35 Normal [facility] Comment on above: Performed By: #### L 3410.9992, L500.3400 #### [facility] [address] [place], [address] Cholesterol [Mass/Vol] 254 mg/dL High <=200 [facility] Comment on above: Result Comment: Chol esterol level, Desirable <200 mg/dL Borderline high cholesterol 200-239 mg/dL High cholesterol >=240 mg/dL Recommendations of the NCEP Adult Treatment Panel for the following risk-cutoff thresholds for the [place] population. Performed By: #### L 3410.9992, L500.3400 #### [facility] [address] [place], [address] Cholesterol in HDL [Mass/Vol] 48 mg/dL Normal [facility] Comment on above: Result Comment: Kristy onal Cholesterol Education Program (NCEP) guidelines: <40 mg/dL: Low HDL-cholesterol (major risk factor for CHD) >= 60 mg/dL: High HDL-cholesterol (negative risk factor for CHD) HDL-cholesterol is affected by a number of factors, e.g. smoking, exercise, hormones, sex and age. Performed By: #### L 3410.9992, L500.3400 #### [facility] [address] [place], [address] Cholesterol in LDL [Mass/Vol] 153 mg/dL Normal [facility] Comment on above: Result Comment: Bord mbaups=683-543 mg/dL Higher Pasl=477 mg/dL or greater Performed By: #### L 3410.9992, L500.3400 #### [facility] [address] [place], [address] Cholesterol in VLDL [Mass/Vol] 54 mg/dL High 5-40 [facility] Comment on above: Performed By: #### L 3410.9992, L500.3400 #### [facility] [address] [place], [address] Triglyceride [Mass/Vol] 270 mg/dL High [facility] Comment on above: Result Comment: The drugs N-Acetylcysteine and Metamizole may falsely depress this assay. Normal range: <150 mg/dL Borderline High: 150-199 mg/dL High: 200-499 mg/dL Very High: >500 mg/dL Performed By: #### L 3410.9992, L500.3400 #### [facility] [address] [place], [address] No Panel InformationOrdered By: Ashley Larose on 09-10-2024 Unsaturated Iron Binding Capacity 374 ug/dL 228-428 [facility] Screening total cholesterol/ high density lipoprotein (HDL) cholesterol ratioOrdered By: Ashley Larose on 09-10-2024 Cholesterol.total/Choles terol in HDL [Mass ratio] 5.35 {ratio} [facility] Serum DNA double strand anti body assay (units/volume)Ordered By: Ashley Larose on 09-10-2024 DNA double strand Ab Qn (S) [facility] Comment on above: Test not performed Serum Scl-70 antibody assay (units/volume)Ordered By: Ashley Larose on 09-10-2024 SCL-70 extractable nuclear Ab Qn (S) [facility] Comment on above: Test not performed Serum classic neutrophil cyt oplasmic antibody assay (units/volume)Ordered By: Ashley Larose on 09-10-2024 Neutrophil cytoplasmic Ab.classic Qn (S) <1:20 titer Neg:<1:20 [facility] Serum mitochondria antibody detectionOrdered By: Ashley Larose on 09-10-2024 Mitochondria Ab Ql (S) <20.0 Units 0.0-20.0 [facility] Comment on above: Negative 0.0 - 20.0 Equivocal 20.1 - 24.9 Positive >24.9Mitochondrial (M2) Antibodies are found in 90-96% ofpatients with primary biliary cirrhosis. Serum or plasma actin IgG an tibody assay (units/volume)Ordered By: Ashley Larose on 09-10-2024 Actin IgG Qn 10 Units 0-19 [facility] Comment on above: Negative 0 - 19 Weak positive 20 - 30 Moderate to strong positive >30 Actin Antibodies are found in 52-85% of patients with autoimmune hepatitis or chronic active hepatitis and in 22% of patients with primary biliary cirrhosis. Serum or plasma cholesterol in HDL measurement (mass/volume)Ordered By: Ashley Larose on 09-10-2024 Cholesterol in HDL [Mass/Vol] 48 mg/dL >40 [facility] Comment on above: National Cholesterol Education Program (NCEP) guidelines:<40 mg/dL: Low HDL-cholesterol (major risk factor for CHD)>= 60 mg/dL: High HDL-cholesterol (negative risk factor for CHD)HDL-cholesterol is affected by a number of factors, e.g. smoking, exercise, hormones, sex and age. Serum or plasma cholesterol measurement (mass/volume)Ordered By: Ashley Larose on 09-10-2024 Cholesterol [Mass/Vol] 254 mg/dL High <201 [facility] Comment on above: Cholesterol level, D esirable <200 mg/dLBorderline high cholesterol 200-239 mg/dLHigh cholesterol >=240 mg/dLRecommendations of the NCEP Adult Treatment Panel for the following risk-cutoff thresholds for the [place] population. Serum or plasma ferritin susie surement (mass/volume)Ordered By: Ashley Larose on 09-10-2024 Ferritin [Mass/Vol] 135 ng/mL 22-378 [facility] Serum or plasma iron saturat ion measurement (mass fraction)Ordered By: Ashley Larose on 09-10-2024 Iron saturation [Mass fraction] 13.0 % 13-59 [facility] Serum perinuclear neutrophil cytoplasmic antibody titer by immunofluorescenceOrdered By: Ashley Larose on 09-10-2024 Neutrophil cytoplasmic Ab.perinuclear IF (S) [Titer] <1:20 titer Neg:<1:20 [facility] Comment on above: The presence of posi tive fluorescence exhibiting P-ANCA orC-ANCA patterns alone is not specific for the diagnosis ofWegener's Granulomatosis (WG) or microscopic polyangiitis.Decisions about treatment should not be based solely onANCA IFA results. The International ANCA Group Consensusrecommends follow up testing of positive sera with both LA-3 and MPO-ANCA enzyme immunoassays. As many as 5% serumsamples are positive only by EIA. Ref. AM J Clin Dzojum8401;111:507-513. TSH DL <= 0.005 mIU/L QnOrde red By: Ashley Larose on 09-10-2024 TSH Qn 1.160 uIU/mL 0.300-4.200 [facility] Thyroid Stim Hormone (TSH)on 09-10-2024 TSH 1.160 uIU/mL Normal 0.300-4.200 [facility] Comment on above: Performed By: #### L 3410.9992, L500.3400 #### [facility] [address] [place], [place], [address] Triglycerides measurementOrd ered By: Ashley Larose on 09-10-2024 Triglyceride [Mass/Vol] 270 mg/dL High <199 [facility] Comment on above: The drugs N-Acetylcy steine and Metamizole may falsely depress this assay. Normal range: <150 mg/dLBorderline High: 150-199 mg/dLHigh: 200-499 mg/dLVery High: >500 mg/dL Vitamin D,25 Hydroxyon 09-10 Vitamin D 25-OH 21.2 ng/mL Low 30-100 [facility] Comment on above: Result Comment: Sarina min D Status Deficiency: <20 ng/mL (50nmol/L) Insufficiency: 20-30 ng/mL (50-75 nmol/L) Sufficiency: 30-100 ng/mL (75-250 nmol/L) Toxicity: >100 ng/mL (>250 nmol/L) Performed By: #### L 3410.9992, L500.3400 #### [facility] [address], [address] Gastroenterology Visit Repor ton 09-05-2024 Gastroenterology Visit Report [facility] Gastroenterology [address] [place] [address] OFFICE VISIT Date of Service: 09/05/24 MR#: [id number] Acct: [id number] Name: JUANITA PAULINO Rep #: [id number] : 2000 Provider: DELMIS jones Age/Sex: 24/F Location: [facility] Status: Signed Intake Vital Signs 07/30/24 08:31 [...] diarrhea, constipation, abdominal pain, gas and bloating. 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 Note: [employer] speech recognition photo retoucher software was used to create portions of this document. Sound-alike and misspelled words, as well as other photo retoucher errors may be contained in the documentation. Patient Instructions: Fibercon 2 tablets once daily with 8 ounces of water after a meal. May take up to 3 weeks for symptom improvement. Start a probiotic (Align, Culturelle or [employer]) once daily. These are all multispecies [...] not having (more content not included)... Normal [facility] L3410.9992on 09-05-2024 [facility]. COMMENT Normal . [facility] Comment on above: Order Comment: [id number] ELF TIGER RF Result Comment: Test Ordered: [id number] Enhanced Liver Fibrosis (ELF) ELF(TM) Score 8.18 [...] trials. J Hepatol. 2020 Aug;73(1):26-39. Performed at: [address] [id number] [employer] Repairer: Juana Lee MD, Phone: [phone] Performed at: [facility] [address] [id number] [employer] Repairer: Gilles Carey PhD, Phone: [phone] Performed By: #### L 3410.9992, L500.3400 #### [facility] [address] [place], [address] Bilirubin directOrdered By: Ashley Larose on 09-02-2024 Bilirubin.direct [Mass/Vol] 0.17 mg/dL 0.00-0.30 [facility] Comment on above: Hemolysis present, R esults could be affected. Bilirubin, totalOrdered By: Ashley Larose on 09-02-2024 Bilirubin [Mass/Vol] 0.58 mg/dL 0.00-1.30 [facility] Laboratory - Chemistry and C hemistry - challengeOrdered By: Ashley Larose on 09-02-2024 AST [Catalytic activity/Vol] 65 U/L High <32 [facility] Comment on above: Hemolysis present, R esults could be affected. Liver Profileon 09-02-2024 Albumin [Mass/Vol] 4.4 g/dL Normal 3.5-5.0 [facility] Comment on above: Performed By: #### L 3410.9992, L500.3400 #### [facility] [address] [place], [address] ALK PHOS 91 U/L Normal 35-104 [facility] Comment on above: Performed By: #### L 3410.9992, L500.3400 #### [facility] [address] [place], [address] ALT [Catalytic activity/Vol] 68 U/L High <=34 [facility] Comment on above: Performed By: #### L 3410.9992, L500.3400 #### [facility] [address] [place], [address] AST [Catalytic activity/Vol] 65 U/L High <=31 [facility] Comment on above: Result Comment: Hemo lysis present, Results??could be affected. ?? Performed By: #### L 3410.9992, L500.3400 #### [facility] [address] [place], [address] Bilirubin [Mass/Vol] 0.58 mg/dL Normal 0.00-1.30 [facility] Comment on above: Performed By: #### L 3410.9992, L500.3400 #### [facility] [address] [place], [address] Bilirubin.direct [Mass/Vol] 0.17 mg/dL Normal 0.00-0.30 [facility] Comment on above: Result Comment: Hemo lysis present, Results??could be affected. ?? Performed By: #### L 3410.9992, L500.3400 #### [facility] [address] [place], [address] Globulin (S) [Mass/Vol] 3.6 g/dL Normal 2.2-4.2 [facility] Comment on above: Performed By: #### L 3410.9992, L500.3400 #### [facility] [address] [place], [address] T PROT 8.0 g/dL Normal 5.9-8.4 [facility] Comment on above: Performed By: #### L 3410.9992, L500.3400 #### [facility] [address] [place], [address] Serum globulin measurementOr dered By: Ashley Larose on 09-02-2024 Globulin (S) [Mass/Vol] 3.6 g/dL 2.2-4.2 [facility] Serum or plasma alanine evans otransferase (ALT) measurementOrdered By: Ashley Larose on 09-02-2024 ALT [Catalytic activity/Vol] 68 U/L High <35 [facility] Serum or plasma albumin benita urement (mass/volume)Ordered By: Ashley Larose on 09-02-2024 Albumin [Mass/Vol] 4.4 g/dL 3.5-5.0 [facility] Serum or plasma alkaline angelina sphatase measurementOrdered By: Ashley Larose on 09-02-2024 ALP [Catalytic activity/Vol] 91 U/L 35-104 [facility] Total proteinOrdered By: Brandy Larose on 09-02-2024 Protein [Mass/Vol] 8.0 g/dL 5.9-8.4 [facility] Building Rental Manager Office Visit Reporton 09-01-2024 Building Rental Manager Office Visit Report [facility]'s [address], [address] [place] [address] OFFICE VISIT Date of Service: 09/01/24 MR#: [id number] Acct: [id number] Name: JUANITA PAULINO Rep #: [id number] : 2000 Provider: DELMIS demarco Age/Sex: 24/F Location: [facility] Status: Signed Intake Vital Signs 08/13/24 14:45 [...] Intake Visit Reasons: Bleeding Chief Complaint: AUB Chemical Etch Operator Required: No Is patient in pain?: No [...] 09/01/24 Rx mg/0.5 mL subcutaneous pen injector (FireScope) tranexamic acid 650 mg tablet 1,300 mg (2 x 650 mg) PO TID #60 0 09/01/24 09/01/24 Rx tabs Is last menstrual period known: Yes Last Menstrual Period: 08/13/24 Post menopausal: No Patient : No : No PFSH Medical History (Updated 09/01/24 @ 13:22 by Simin Yu RECRUITMENT SPECIALIST, RECRUITMENT SPECIALIST-C) HSV-2 (herpes simplex virus 2) infection IBS [...] 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 Normal [facility] Internal Medicine Office Vis [place] 08-13-2024 Internal Medicine Office Visit [facility] [address] [place] [address] [address] [place], [place] [address] OFFICE VISIT Date of Service: 08/13/24 MR#: [id number] Acct: [id number] Name: JUANITA PAULINO Rep #: [id number] : 2000 Provider: Dr. Tiffany mock MD Age/Sex: 24/F Location: [facility] Status: Signed Intake Vital Signs 07/30/24 08:31 08/13/24 14:45 Height 5 ft 7 in 5 ft 7 in Weight: 323 lb BMI 50.5 BP 120/84 H Blood Pressure Location Lt brachial Position Sitting Respiration 18 Pulse 83 Pulse Source Monitor Temp 98.9 F Temp Source Temporal Pulse Oximetry (%) 96 Oxygen Delivery Method room air Intake Visit Reasons: MED REFILL-OK PER DR MARKS Chemical Etch Operator Required: No Is patient in pain?: No [...] part upon awakening. Pt had testing at [facility] and Ashley told pt weight loss option may be good for her. Pt states she was on mounjaro 5mg qweek in the past. Pt states insurance covered 1 month then didn't pt could not pay out of pocket, so she did not continue. 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 Normal [facility] ABD Limited w/ Elastographyo n 08-05-2024 ABD Limited w/ Elastography [facility] Imaging Services [address] [place], [place] [address] ABD Limited w/ Elastography MR#: [id number] Acct: [id number] Name: JUANITA PAULINO Rep #: [id number] : 2000 F 24 From: Reynaldo rivas MD PCP: Dr. Tiffany Marks MD Status: REG CLI Study: ABD Limited w/ Elastography Date of Exam: 07/20 09/12 Exam# [id number] Ordering Dr: Ashley Larose RECRUITMENT SPECIALIST- C PROCEDURE: ABD LIMITED W/ ELASTOGRAPHY REASON [...] 7.3 cm. US/ABD Limited w/ Elastography IMPRESSION: Dyvc-mc-ilmowrle hepatic fibrosis. Splenomegaly. Hepatomegaly and diffuse fatty [...] measurement may be in question. Reading Location: [place] [address] CC: DELMIS Larose; Dr. Tiffany Marks MD Photographic Process Screen Maker: Signed Normal [facility] L5500.0550on 08-05-2024 BEEF <0.10 Normal Class 0 [facility] Comment on above: Performed By: #### L 500.2500 #### [facility] [address] [facility] [place], [place], [id number] CHOCOLATE <0.10 Normal Class 0 [facility] Comment on above: Performed By: #### L 500.2500 #### [facility] [address] [place], [place], [address] CODFISH <0.10 Normal Class 0 [facility] Comment on above: Performed By: #### L 500.2500 #### [facility] [address] [place], [place], [address] COMMENT Comment Normal . [facility] Comment on above: Result Comment: Wilbur gray of Specific IgE Class Description of Class ----- < 0.10 0 Negative 0.10 - 0.31 0/I Equivocal/Low 0.32 - 0.55 I Low 0.56 - 1.40 II Moderate 1.41 - 3.90 III High 3.91 - 19.00 IV Very High 19.01 - 100.00 V Very High >100.00 Very High Performed By: #### L 500.2500 #### [facility] [address] [place], [address] CORN 0.14 kU/L Abnormal Class 0/I [facility] Comment on above: Performed By: #### L 500.2500 #### [facility] [address] [place], [address] EGG, WHOLE 0.12 kU/L Abnormal Class 0/I [facility] Comment on above: Result Comment: Perf ormed at: - [facility] [address] [id number] [employer]ueling System Repairer: Juana Lee MD, Phone: [phone] Performed By: #### L 500.2500 #### [facility] [address] [place], [address] MILK (COW) 0.60 kU/L Abnormal Class II [facility] Comment on above: Performed By: #### L 500.2500 #### [facility] [address] [place], [address] MUSSELS <0.10 Normal Class 0 [facility] Comment on above: Performed By: #### L 500.2500 #### [facility] [address] [place], [address] PEANUT <0.10 Normal Class 0 [facility] Comment on above: Performed By: #### L 500.2500 #### [facility] [address] [place], [address] PORK <0.10 Normal Class 0 [facility] Comment on above: Performed By: #### L 500.2500 #### [facility] [address] [place], [address] SALMON <0.10 Normal Class 0 [facility] Comment on above: Performed By: #### L 500.2500 #### [facility] [address] [place], [address] SHRIMP <0.10 Normal Class 0 [facility] Comment on above: Performed By: #### L 500.2500 #### [facility] [address] [place], [address] SOYBEAN <0.10 Normal Class 0 [facility] Comment on above: Performed By: #### L 500.2500 #### [facility] [address] [place], [address] TUNA <0.10 Normal Class 0 [facility] Comment on above: Performed By: #### L 500.2500 #### [facility] [address] [place], [address] WHEAT 0.33 kU/L Abnormal Class I [facility] Comment on above: Performed By: #### L 500.2500 #### [facility] [address] [place], [place], [id number] Hepatitis A AB, Totalon 07-20 HEPATITIS A,TOT Positive Abnormal Negative [facility] Comment on above: Result Comment: Comm ent: The HAV total antibody assay detects both IgG and IgM but does not differentiate between them. A negative result suggests susceptibility to infection. A positive result could be due to vaccination, previously resolved infection or active infection. Testing for HAV IgM should be performed if active HAV infection is suspected. [facility] offers profiles that will automatically reflex positive HAV total antibody results to IgM (e.g., panel #[id number] HAV Antibody w/ Rfx). Performed at: [address] [id number] [employer] Repairer: Gilles Carey PhD, Phone: [phone] Performed By: #### L 500.2500 #### [facility] [address] [place], [address] Immunoglobulin Aon 5 IMMUNOGLOB A QN 164 mg/dL Normal 87-352 [facility] Comment on above: Order Comment: N Performed By: #### L 500.2500 #### [facility] [address] [place], [address] t-Transglutaminase IgAon tTG IGA <2 Normal 0-3 [facility] Comment on above: Result Comment: Nega tive 0 - 3 Weak Positive 4 - 10 Positive >10 Tissue Transglutaminase (tTG) has been identified as the endomysial antigen. Studies have demonstr- ated that endomysial IgA antibodies have over 99% specificity for gluten sensitive enteropathy. Performed By: #### L 500.2500 #### [facility] [address] [place], [address] Anion gap in Serum or Plasma Ordered By: Ashley Larose on 07-30-2024 Anion gap [Moles/Vol] 15 mmol/L 07-03 [facility] BUN/creatinine ratioOrdered By: Ashley Larose on 07-30-2024 Urea nitrogen/Creatinine [Mass ratio] 13.0 mg/mg 12-08 [facility] Basic Metabolic Profile (BMP )on 07-30-2024 BUN/CRE 13.0 RATIO Normal 12-08 [facility] Comment on above: Performed By: #### L 500.2500 #### [facility] [address] [place], [address] Calcium [Mass/Vol] 9.7 mg/dL Normal 7.6-11.0 [facility] Comment on above: Performed By: #### L 500.2500 #### [facility] [address] [place], [address] Chloride [Moles/Vol] 101 mmol/L Normal 98-108 [facility] Comment on above: Performed By: #### L 500.2500 #### [facility] [address] [place], [address] CO2 [Moles/Vol] 22.8 mmol/L Normal 21.0-32.0 [facility] Comment on above: Performed By: #### L 500.2500 #### [facility] [address] [place], [address] Creatinine [Mass/Vol] 0.66 mg/dL Low 0.70-1.20 [facility] Comment on above: Performed By: #### L 500.2500 #### [facility] [address] [place], [address] GAP 15 Normal 5-15 [facility] Comment on above: Performed By: #### L 500.2500 #### [facility] [address] [place], [address] GFR/1.73 sq M.predicted among non-blacks MDRD (S/P/Bld) [Vol rate/Area] 124 mL/min/{1.73_m2} Normal >60 [facility] Comment on above: Result Comment: mL/m in/1.73m2 CKD-EPI Creatinine Equation (2020) Performed By: #### L 500.2500 #### [facility] [address] [place], [address] Glucose [Mass/Vol] 103 mg/dL High 70-99 [facility] Comment on above: Performed By: #### L 500.2500 #### [facility] [address] [place], [address] Potassium [Moles/Vol] 3.6 mmol/L Normal 3.3-5.1 [facility] Comment on above: Performed By: #### L 500.2500 #### [facility] [address] [place], [address] Sodium [Moles/Vol] 139 mmol/L Normal 133-145 [facility] Comment on above: Performed By: #### L 500.2500 #### [facility] [address] [place], [address] Urea nitrogen [Mass/Vol] 9 mg/dL Normal 4-19 [facility] Comment on above: Performed By: #### L 500.2500 #### [facility] [address] [place], [address] Bilirubin directOrdered By: Ashley Larose on 07-30-2024 Bilirubin.direct [Mass/Vol] 0.21 mg/dL 0.00-0.30 [facility] Bilirubin, totalOrdered By: Ashley Larose on 07-30-2024 Bilirubin [Mass/Vol] 0.57 mg/dL 0.00-1.30 [facility] CRPon 07-30-2024 C-REACTIVE PROT 4.37 mg/L High 0.0-3.0 [facility] Comment on above: Performed By: #### L 500.2500 #### [facility] [address] [place], [place], [address] Carbon dioxide, total [Moles /volume] in Central venous bloodOrdered By: Ashley Larose on 07-30-2024 CO2 [Moles/Vol] 22.8 mmol/L 21.0-32.0 [facility] Chloride assayOrdered By: Dany Larose on 07-30-2024 Chloride [Moles/Vol] 101 mmol/L 98-108 [facility] Gastroenterology Visit Repor ton 07-30-2024 Gastroenterology Visit Report [facility] Gastroenterology [address] [place] [address] OFFICE VISIT Date of Service: 07/30/24 MR#: [id number] Acct: [id number] Name: JUANITA PAULINO Rep #: [id number] : 2000 Provider: DELMIS jones Age/Sex: 24/F [place] [facility] [place]: Signed Intake Vital Signs 10/17/23 11:44 07/24/24 08:23 07/30/24 08:31 Height 5 ft 7 in 5 ft 7 in 5 ft 7 in Weight: 317 lb 8 oz BMI 49.7 BP 112/80 Respiration 16 Pulse 98 Pulse Oximetry (%) 96 Oxygen Delivery Method room air Intake Visit Reasons: NEW PATIENT 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 [facility] Medical History Polycystic ovaries IBS (irritable bowel [...] difficulty swa (more content not included)... Normal [facility] Glomerular filtration rate ( GFR) estimation/1.73 sq m using serum, plasma, or whole bOrdered By: Ashley Larose on 07-30-2024 GFR/1.73 sq M.predicted among non-blacks MDRD (S/P/Bld) [Vol rate/Area] 124 mL/min/{1.73_m2} >60 [facility] Comment on above: mL/min/1.73m2 CKD-EP I Creatinine Equation (2020) Hepatitis C Antibodyon 07-30 Hepatitis C Ab Non-Reactive Normal Nonreactive [facility] Comment on above: Result Comment: Reac tive: Presumptive evidence of antibodies to HCV. Follow CDC recommendations for supplemental testing. Non-Reactive: Antibodies to HCV were not detected; does not exclude the possibility of exposure to HCV Reactive Results are presumptive evidence of antibodies to HCV. Follow CDC recommendations for supplemental testing. Order confirmation testing: HCV Quant by PCR testing - HCVPCR #[id number] Non Reactive: < 0.8 Equivocal: >/= 0.8 to < 1.0 Reactive: >/= 1.0 The [facility] requires that a reactive/equivocal HCV antibody result be sent out for confirmation. HCV Quant by PCR testing. Performed By: #### L 500.2500 #### [facility]. [place], [place], [id number] Laboratory - Chemistry and C hemistry - challengeOrdered By: Ashley Larose on 07-30-2024 AST [Catalytic activity/Vol] 50 U/L High <32 [facility] - Miscellaneous t estsOrdered By: Ashley Larose on 07-30-2024 Service comment (Unsp spec) [Interp] Comment . [facility] Comment on above: Levels of Specific I gE Class Description of Class ----- < 0.10 0 Negative 0.10 - 0.31 0/I Equivocal/Low 0.32 - 0.55 I Low 0.56 - 1.40 II Moderate 1.41 - 3.90 III High 3.91 - 19.00 IV Very High 19.01 - 100.00 V Very High >100.00 Very High Liver Profileon 07-30-2024 Albumin [Mass/Vol] 4.6 g/dL Normal 3.5-5.0 [facility] Comment on above: Performed By: #### L 500.2500 #### [facility] [address] [place], [address] ALK PHOS 92 U/L Normal 35-104 [facility] Comment on above: Performed By: #### L 500.2500 #### [facility] [address] [place], [address] ALT [Catalytic activity/Vol] 53 U/L High <=34 [facility] Comment on above: Performed By: #### L 500.2500 #### [facility] [address] [place], [address] AST [Catalytic activity/Vol] 50 U/L High <=31 [facility] Comment on above: Performed By: #### L 500.2500 #### [facility] [address] [place], [address] Bilirubin [Mass/Vol] 0.57 mg/dL Normal 0.00-1.30 [facility] Comment on above: Performed By: #### L 500.2500 #### [facility] [address] [place], [address] Bilirubin.direct [Mass/Vol] 0.21 mg/dL Normal 0.00-0.30 [facility] Comment on above: Performed By: #### L 500.2500 #### [facility] [address] [place], [address] Globulin (S) [Mass/Vol] 3.3 g/dL Normal 2.2-4.2 [facility] Comment on above: Performed By: #### L 500.2500 #### [facility] [address] [place], [address] T PROT 7.9 g/dL Normal 5.9-8.4 [facility] Comment on above: Performed By: #### L 826.7309 #### [facility] [address] [place], [address] Potassium measurement (mass/ volume)Ordered By: Ashley Larose on 07-30-2024 Potassium (Unsp spec) [Mass/Vol] 3.6 mmol/L 3.3-5.1 [facility] Serum beef IgE antibody assa y (units/volume)Ordered By: Ashley Larose on 07-30-2024 Beef IgE Qn (S) <0.10 kU/L Class 0 [facility] Serum codfish IgE antibody a ssay (units/volume)Ordered By: Ashley Larose on 07-30-2024 Codfish IgE Qn (S) <0.10 kU/L Class 0 [facility] Serum corn IgE antibody assa y (units/volume)Ordered By: Ashley Larose on 07-30-2024 [place] IgE Qn (S) 0.14 kU/L High Class 0/I [facility] Serum cow milk IgE antibody assay (units/volume)Ordered By: Ashley Larose on 07-30-2024 Cow milk IgE Qn (S) 0.60 kU/L High Class II [facility] Serum creatinine measurement (mass/volume)Ordered By: Ashley Larose on 07-30-2024 Creatinine [Mass/Vol] 0.66 mg/dL Low 0.70-1.20 [facility] Serum globulin measurementOr dered By: Ashley Larose on 07-30-2024 Globulin (S) [Mass/Vol] 3.3 g/dL 2.2-4.2 [facility] Serum glucose measurement (m ass/volume)Ordered By: Ashley Larose on 07-30-2024 Glucose [Mass/Vol] 103 mg/dL High 70-99 [facility] Serum or plasma C reactive p rotein measurement (mass/volume)Ordered By: Ashley Larose on 07-30-2024 CRP [Mass/Vol] 4.37 mg/L High 0.0-3.0 [facility] Serum or plasma IgA measurem ent (mass/volume)Ordered By: Ashley Larose on 07-30-2024 IgA [Mass/Vol] 164 mg/dL 87-352 [facility] Serum or plasma alanine evasn otransferase (ALT) measurementOrdered By: Ashley Larose on 07-30-2024 ALT [Catalytic activity/Vol] 53 U/L High <35 [facility] Serum or plasma albumin benita urement (mass/volume)Ordered By: Ashley Larose on 07-30-2024 Albumin [Mass/Vol] 4.6 g/dL 3.5-5.0 [facility] Serum or plasma alkaline angelina sphatase measurementOrdered By: Ashley Larose on 07-30-2024 ALP [Catalytic activity/Vol] 92 U/L 35-104 [facility] Serum or plasma calcium benita urement (mass/volume)Ordered By: Ashley Larose on 07-30-2024 Calcium [Mass/Vol] 9.7 mg/dL 7.6-11.0 [facility] Serum or plasma urea nitroge n measurement (mass/volume)Ordered By: Ashley Larose on 07-30-2024 Urea nitrogen [Mass/Vol] 9 mg/dL 4-19 [facility] Serum peanut IgE antibody as say (units/volume)Ordered By: Ashley Larose on 07-30-2024 Peanut IgE Qn (S) <0.10 kU/L Class 0 [facility] Serum pork IgE antibody assa y (units/volume)Ordered By: Ashley Larose on 07-30-2024 Pork IgE Qn (S) <0.10 kU/L Class 0 [facility] Serum salmon IgE antibody as say (units/volume)Ordered By: Ashley Larose on 07-30-2024 [place] IgE Qn (S) <0.10 kU/L Class 0 [facility] Serum soybean IgE antibody a ssay (units/volume)Ordered By: Ashley Larose on 07-30-2024 Soybean IgE Qn (S) <0.10 kU/L Class 0 [facility] Serum tissue transglutaminas e (tTG) IgA antibody assay (units/volume)Ordered By: Ashley Larose on 07-30-2024 tTG IgA Qn (S) <2 U/mL 0-3 [facility] Comment on above: Negative 0 - 3 Weak Positive 4 - 10 Positive >10 Tissue Transglutaminase (tTG) has been identified as the endomysial antigen. Studies have demonstr- ated that endomysial IgA antibodies have over 99% specificity for gluten sensitive enteropathy. Serum tuna IgE antibody assa y (units/volume)Ordered By: Ashley Larose on 07-30-2024 Tuna IgE Qn (S) <0.10 kU/L Class 0 [facility] Serum wheat IgE antibody ass ay (units/volume)Ordered By: Ashley Larose on 07-30-2024 Wheat IgE Qn (S) 0.33 kU/L High Class I [facility] Serum whole egg IgE antibody assay (units/volume)Ordered By: Ashley Larose on 07-30-2024 Whole Egg IgE Qn (S) 0.12 kU/L High Class 0/I [facility] Comment on above: Performed at: [address] [id number] Director: Juana Lee MD, Phone: [phone] Sodium levelOrdered By: Sylvia Larose on 07-30-2024 Sodium [Moles/Vol] 139 mmol/L 133-145 [facility] Total proteinOrdered By: Brandy Larose on 07-30-2024 Protein [Mass/Vol] 7.9 g/dL 5.9-8.4 [facility] Vitamin D,25 Hydroxyon 07-30 Vitamin D 25-OH 17.7 ng/mL Low 30-100 [facility] Comment on above: Result Comment: Sarina min D Status Deficiency: <20 ng/mL (50nmol/L) Insufficiency: 20-30 ng/mL (50-75 nmol/L) Sufficiency: 30-100 ng/mL (75-250 nmol/L) Toxicity: >100 ng/mL (>250 nmol/L) Performed By: #### L 500.2500 #### [facility] [address] [place], [place], [id number] Hepatitis B Surface Antibody on 07-29-2024 HEP B Surf Ab REAC Normal [facility] Comment on above: Result Comment: <8.5 mIU/mL: Non-Reactive 8.5<= x <11.5 mIU/mL: Indeterminate >=11.5 mIU/mL: Reactive Non Reactive: Inconsistent with immunity less than <10 mIU/mL Reactive: Consistent with immunity greater than or equal to 10 mIU/mL Performed By: #### L 3890.6202 #### [facility] [address] [facility] [place], [address] Serum hepatitis B virus surf markel antibody detectionOrdered By: HEALTH ASSESSMENT on 07-29-2024 HBV surface Ab Ql (S) REAC [facility] Comment on above: <8.5 mIU/mL: Non-Lyric ctive8.5<= x <11.5 mIU/mL: Indeterminate>=11.5 mIU/mL: Reactive Non Reactive: Inconsistent with immunity less than <10 mIU/mL Reactive: Consistent with immunity greater than or equal to 10 mIU/mL Absolute lymphocyte countOrd ered By: Zurdo Maldonado on 07-24-2024 Lymphocytes Auto (Unsp spec) [#/Vol] 1.68 10*3/uL 0.83-4.51 [facility] Absolute neutrophil countOrd ered By: Zurdo Maldonado on 07-24-2024 Neutrophils (Bld) [#/Vol] 3.3 10*3/uL 2.0-7.7 [facility] Automated lymphocyte count a s percentage of total leukocytesOrdered By: Zurdo Maldonado on 07-24-2024 Lymphocytes/100 WBC Auto (Unsp spec) 30.8 % 19-41 [facility] Basophil percentageOrdered B y: Zurdo Maldonado on 07-24-2024 Basophils/100 WBC (Bld) 0.6 % 0-1 [facility] CBC W/Diff, Automatedon Absolute Lymph 1.68 X10 3/uL Normal 0.83-4.51 [facility] Comment on above: Performed By: #### L 100.0100 #### [facility] [address] [place], [address] Absolute Neut 3.3 X10 3/uL Normal 2.0-7.7 [facility] Comment on above: Performed By: #### L 100.0100 #### [facility] [address] [place], [address] Basophils/100 WBC (Bld) 0.6 % Normal 0-1 [facility] Comment on above: Performed By: #### L 100.0100 #### [facility] [address] [place], [address] Eosinophils/100 WBC (Bld) 2.4 % Normal 0-5 [facility] Comment on above: Performed By: #### L 100.0100 #### [facility] [address] [place], [address] Erythrocyte distribution width (RBC) [Ratio] 13.9 % Normal 11.6-14.6 [facility] Comment on above: Performed By: #### L 100.0100 #### [facility] [address] [place], [address] Hematocrit (Bld) [Volume fraction] 37.9 % Normal 37-47 [facility] Comment on above: Performed By: #### L 100.0100 #### [facility] [address] [place], [address] Hemoglobin (Bld) [Mass/Vol] 12.6 g/dL Normal 12.0-15.0 [facility] Comment on above: Performed By: #### L 100.0100 #### [facility] [address] [place], [address] IG% 0.400 Normal 0.0-0.9 [facility] Comment on above: Result Comment: IG% - Immature Granulocytes (promyelocytes, myelocytes and metamyelocytes) > 1% indicates that a LEFT SHIFT is Present. Performed By: #### L 100.0100 #### [facility] [address] [place], [address] Lymphocytes/100 WBC (Bld) 30.8 % Normal 19-41 [facility] Comment on above: Performed By: #### L 100.0100 #### [facility] [address] [place], [address] MCH (RBC) [Entitic mass] 26.4 pg Low 27.0-32.0 [facility] Comment on above: Performed By: #### L 100.0100 #### [facility] [address] [place], [address] MCHC (RBC) [Mass/Vol] 33.2 g/dL Normal 32-36 [facility] Comment on above: Performed By: #### L 100.0100 #### [facility] [address] [place], [address] MCV (RBC) [Entitic vol] 79.3 fL Low 81-99 [facility] Comment on above: Performed By: #### L 100.0100 #### [facility] [address] [place], [address] Monocytes/100 WBC (Bld) 5.7 % Normal 0-10 [facility] Comment on above: Performed By: #### L 100.0100 #### [facility] [address] [place], [address] Neutrophils/100 WBC (Bld) 60.1 % Normal 47-70 [facility] Comment on above: Performed By: #### L 100.0100 #### [facility] [address] [place], [address] Nucleated RBC (Bld) [#/Vol] 0 10*3/uL Normal 0-5 [facility] Comment on above: Performed By: #### L 100.0100 #### [facility] [address] [place], [address] Platelet mean volume (Bld) [Entitic vol] 11.8 fL Normal 6.2-12.0 [facility] Comment on above: Performed By: #### L 100.0100 #### [facility] [address] [place], [address] Platelets (Bld) [#/Vol] 216 10*3/uL Normal 150-450 [facility] Comment on above: Performed By: #### L 100.0100 #### [facility] [address] [place], [address] RBC (Bld) [#/Vol] 4.78 10*6/uL Normal 4.2-5.4 [facility] Comment on above: Performed By: #### L 100.0100 #### [facility] [address] [place], [address] RDW SD 39.8 fl Normal 35.1-43.9 [facility] Comment on above: Performed By: #### L 100.0100 #### [facility] [address] [place], [address] WBC (Bld) [#/Vol] 5.5 10*3/uL Normal 4.4-11.0 [facility] Comment on above: Performed By: #### L 100.0100 #### [facility] [address] [place], [address] Emergency Department Summary on 07-24-2024 Emergency Department Summary [facility] Medical Records Department [address] [place] [address] Emergency Department Summary 07/24/24 MR#: [id number] Acct: [id number] Name: JUANITA PAULINO Rep #: [id number] : 2000 24 From: Zurdo Maldonado DO [...] size of her palm and messaged her treasury management sales consultant. She states she had some small clots throughout the night this morning when she got to work coworkers mention that she did not appear her normal self. She states she feels flushed and has a slight headache. She notes pelvic cramping. Patient states she is not currently on any hormonal medications. She heard back from her treasury management sales consultant and was advised to come to emergency. She denies any known bleeding disorders. 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 Normal [facility] Eosinophil percentageOrdered By: Zurdo Maldonado on 07-24-2024 Eosinophils/100 WBC (Bld) 2.4 % 0-5 [facility] Erythrocyte distribution wid th ratioOrdered By: Zurdo Maldonado on 07-24-2024 Erythrocyte distribution width (RBC) [Ratio] 13.9 % 11.6-14.6 [facility] Erythrocyte distribution wid th standard deviationOrdered By: Zurdo Maldonado on 07-24-2024 Erythrocyte distribution width (RBC) [Ratio] 39.8 fl 35.1-43.9 [facility] Hematocrit Auto (Bld) [Volum e fraction]Ordered By: Zurdo Maldonado on 07-24-2024 Hematocrit (Bld) [Volume fraction] 37.9 % 37-47 [facility] Hemoglobin measurementOrdere d By: Zurdo Maldonado on 07-24-2024 Hemoglobin (Bld) [Mass/Vol] 12.6 g/dL 12.0-15.0 [facility] Immature granulocytes/100 WB C Auto (Bld)Ordered By: Zurdo Maldonado on 07-24-2024 Immature granulocytes/100 WBC (Bld) 0.400 % 0.0-0.9 [facility] Comment on above: IG% - Immature Granu locytes (promyelocytes, myelocytes and metamyelocytes) > 1% indicates that a LEFT SHIFT is Present. MCV (mean corpuscular volume ) determinationOrdered By: Zurdo Maldonado on 07-24-2024 MCV (RBC) [Entitic vol] 79.3 fL Low 81-99 [facility] Mean corpuscular hemoglobin (MCH) determinationOrdered By: Zurdo Maldonado on 07-24-2024 MCH (RBC) [Entitic mass] 26.4 pg Low 27.0-32.0 [facility] Mean corpuscular hemoglobin concentration (MCHC) determinationOrdered By: Zurdo Maldonado on 07-24-2024 MCHC (RBC) [Mass/Vol] 33.2 g/dL 32-36 [facility] Mean platelet volume determi nationOrdered By: Zurdo Maldonado on 07-24-2024 Platelet mean volume (Bld) [Entitic vol] 11.8 fL 6.2-12.0 [facility] Monocyte percentageOrdered B y: Zurdo Maldonado on 07-24-2024 Monocytes/100 WBC (Bld) 5.7 % 0-10 [facility] Neutrophil percentageOrdered By: Zurdo Maldonado on 07-24-2024 Neutrophils/100 WBC (Bld) 60.1 % 47-70 [facility] Nucleated red blood cell per centageOrdered By: Zurdo Maldonado on 07-24-2024 Nucleated RBC/100 WBC (Bld) [Ratio] 0 % 0-5 [facility] Platelet countOrdered By: Tomer Maldonado on 07-24-2024 Platelets (Bld) [#/Vol] 216 10*3/uL 150-450 [facility] ,Serum,hCG Quali.on 07-24-2024 HCG, SERUM QUAL Negative Normal [facility] Comment on above: Performed By: #### L 700.6800 #### [facility] [address] [place], [address] RBC Auto (Bld) [#/Vol]Ordere d By: Zurdo Maldonado on 07-24-2024 RBC (Bld) [#/Vol] 4.78 10*6/uL 4.2-5.4 [facility] Serum beta-hCG test, qualita tiveOrdered By: Zurdo Maldonado on 07-24-2024 Beta HCG ( test) Ql Negative [facility] Transvaginal Non-on 07-24-2024 Transvaginal Non- [facility] [address] [place], [place] [address] Transvaginal Non- MR#: [id number] Acct: [id number] Name: JUANITA PAULINO Rep #: [id number] : 2000 F 24 From: Reagan Lott PCP: Dr. Tiffany Marks MD Status: DEP ER Study: Transvaginal Non- Date of Exam: Exam# [id number] Ordering Dr: Zurdo Maldonado DO ADDENDUM by Dr. Reagan Rodriguez MD on 08/11/24 at 1215 The left ovarian cyst is likely benign appearance. Follow-up imaging in 2-3 cycles may be helpful to confirm this. Reading Location: [facility]-1 08/11/24 1215 Date cc: Dr. Tiffany [...] cyst. 2. Negative examination, otherwise. Reading Location: [address] CC: Dr. Tiffany Marks MD; Dr. Zurdo Maldonado DO Photographic Process Screen Maker: Signed Normal [facility] White blood cell (WBC) count Ordered By: Zurdo Maldonado on 07-24-2024 WBC (Bld) [#/Vol] 5.5 10*3/uL 4.4-11.0 [facility] Serum human chorionic gonado tropin detection for pregnancyOrdered By: Libertad Pate on 07-16-2024 HCG ( test) Ql < 1 mIU/mL <9 [facility] Comment on above: Gestational Age0.2-1 Week: 5-50 mIU/mL1-2 Weeks: 50-500 mIU/mL2-3 Weeks: 100-5000 mIU/mL3-4 Weeks: 500-10,000 mIU/mL4-5 Weeks:1000-50,000 mIU/mL5-6 Weeks: 10,000-100,000 mIU/mL6-8 Weeks: 15,000-200,000 mIU/mL2-3 Months:10,000-100,000 mIU/mL hCG Titer Quant., Serumon HCG QUANT. < 1 Normal <9 non-preg [facility] Comment on above: Result Comment: Gest ational Age 0.2-1 Week: 5-50 mIU/mL 1-2 Weeks: 50-500 mIU/mL 2-3 Weeks: 100-5000 mIU/mL 3-4 Weeks: 500-10,000 mIU/mL 4-5 Weeks:1000-50,000 mIU/mL 5-6 Weeks: 10,000-100,000 mIU/mL 6-8 Weeks: 15,000-200,000 mIU/mL 2-3 Months:10,000-100,000 mIU/mL Performed By: #### L 700.8000 #### [facility] [address] [address] Hepatitis B Surface Antibody on 06-05-2024 HEP B Surf Ab Non-Reactive Normal [facility] Comment on above: Result Comment: <8.5 mIU/mL: Non-Reactive 8.5<= x <11.5 mIU/mL: Indeterminate >=11.5 mIU/mL: Reactive Non Reactive: Inconsistent with immunity less than <10 mIU/mL Reactive: Consistent with immunity greater than or equal to 10 mIU/mL Performed By: #### L 3890.6202 #### [facility] [address] [place], [address] Serum hepatitis B virus surf markel antibody detectionOrdered By: [employer] [facility] on 06-05-2024 HBV surface Ab Ql (S) Non-Reactive [facility] Comment on above: <8.5 mIU/mL: Non-Lyric ctive8.5<= x <11.5 mIU/mL: Indeterminate>=11.5 mIU/mL: Reactive Non Reactive: Inconsistent with immunity less than <10 mIU/mL Reactive: Consistent with immunity greater than or equal to 10 mIU/mL Pelvic w/ Transvaginalon Pelvic w/ Transvaginal [facility] [address] [place], [place] [address] Pelvic w/ Transvaginal MR#: [id number] Acct: [id number] Name: JUANITA PAULINO Rep #: [id number] : 2000 F 23 From: Marquez Olivares MD PCP: JEFF VELASCO Status: REG CLI Study: Pelvic w/ Transvaginal Date of Exam: 01/19/24 Exam# [id number] Ordering Dr: Libertad Pate RECRUITMENT SPECIALIST-C [id number] INDICATION: ovarian cyst monitoring EXAMINATION: Ultrasound US [...] EST , CC: DELMIS Pate; JEFF VELASCO Photographic Process Screen Maker: Signed Oc [facility] XR ANKLE MINIMUM 3 VIEWS LEF Ton 08-07-2023 XR ANKLE MINIMUM 3 VIEWS LEFT ORIGINAL HISTORY: Pain COMPARISON: No FINDINGS: There are no acute fractures or dislocations. Alignment is within normal limits. Joint spaces are intact. The soft tissues are unremarkable. IMPRESSION: No acute fracture Interpreted by: Kiran Marie MD Preliminary Report By: Kiran Marie MD Electronically signed By Kiarn Marie MD Dictated Date: 08/07/2023 12:21:44 PM Prelim Date: 08/07/2023 12:22:15 PM Sign Date: 08/07/2023 12:22:15 PM Ordering Provider: ZEYNEP MOURA [facility] [place] TRANSVAGINAL NON OBon US TRANSVAGINAL NON [...] 07/06/2023 8:45:18 AM Ordering Provider: ARACELIS Renae [facility] ([place]) .Auto Diffon 06-26-2023 Basophil, Absolute 0.0 10 3/mcL Normal 0.0-0.2 [facility] ([place]) Comment on above: Performed By: #### C BC, GFR, SILVANA TEE, ANEU, BMP #### [address] [address] Basophils/100 WBC (Bld) 0.2 % Normal 0.0-2.5 [facility] ([place]) Comment on above: Performed By: #### C BC, GFR, RANDAL, SILVANA, ANEU, BMP #### [address] [address] Eosinophil, Absolute 0.2 10 3/mcL Normal 0.0-0.4 [facility] ([place] Comment on above: Performed By: #### C BC, GFR, SILVANA TEE, ANEU, BMP #### [address] [address] Eosinophils/100 WBC (Bld) 2.2 % Normal 0.0-7.0 [facility] ([place]) Comment on above: Performed By: #### C BC, GFRRANDAL MDW, ANEU, BMP #### [address] [address] Lymphocyte, Absolute 1.5 10 3/mcL Normal 0.8-3.9 [facility] ([place]) Comment on above: Performed By: #### C BC, GFR, SILVANA TEE, ANEU, BMP #### [address] [address] Lymphocytes/100 WBC (Bld) 20.3 % Normal 10.0-50.0 [facility] ([place] Comment on above: Performed By: #### C BC, GFRRANDAL MDW, ANEU, BMP #### [address] [address] Monocyte, Absolute 0.4 10 3/mcL Normal 0.2-1.0 [facility] ([place] Comment on above: Performed By: #### C BC, GFRRANDAL MDW, ANEU, BMP #### [address] [address] Monocytes/100 WBC (Bld) 5.9 % Normal 1.7-13.0 [facility] ([place] Comment on above: Performed By: #### C BC, GFR, SILVANA TEE, ANEU, BMP #### [address] [address] Neutrophils/100 WBC (Bld) 71.4 % Normal 37.0-80.0 [facility] ([place]) Comment on above: Performed By: #### C BC, GFR, SILVANA TEE, ANEU, BMP #### [address] [address] .GFRon 06-26-2023 GFR Non- 92 ml/min/1.73sqm Normal [facility] ([place]) Comment on above: Result Comment: [...] BC, GFR, ADSILVANA WARNER, ANEU, BMP #### [address] [address] GFR 112 ml/min/1.73sqm Normal [facility] ([place]) Comment on above: Result Comment: [...] BC, GFR, ADTIMMY, SILVANA, ANEU, BMP #### [place] [id number] .MDWon 06-26-2023 Monocyte Distribution Width 16.82 Normal 0.00-20.00 [facility] ([place] Comment on above: Result Comment: For ED adult patients suspected of sepsis, MDW<=20.0 does not rule out sepsis or risk of sepsis Performed By: #### C BC, GFR, SILVANA TEE, ANEU, BMP #### [place] [address] .NEUABSon 06-26-2023 Neutrophil, Absolute 5.3 10 3/mcL Normal 2.9-6.2 [facility] ([place]) Comment on above: Performed By: #### C BC, GFR, SILVANA TEE, ANEU, BMP #### [place] [address] .Urinalysis Microscopic (AO) on 06-26-2023 UA RBC None Seen Normal None Seen [facility] ([place] Comment on above: Performed By: #### C BC, GFR, SILVANA TEE, ANEU, BMP #### [place] [id number] UA Squam Epithelial LOADED Abnormal None Seen [facility] ([place] Comment on above: Performed By: #### C BC, GFR, SILVANA TEE, ANEU, BMP #### [place] [id number] UA WBC 0-5 Abnormal None Seen [facility] ([place] Comment on above: Performed By: #### C BC, GFR, ADSILVANA WARNER, ANEU, BMP #### [address] [address] CBCon 06-26-2023 Erythrocyte distribution width (RBC) [Ratio] 14.6 % High 11.5-14.5 [facility] ([place] Comment on above: Performed By: #### C BC, GFRRANDAL MDW, ANEU, BMP #### [place] [id number] Hematocrit (Bld) [Volume fraction] 38.3 % Normal 37.0-47.0 [facility] ([place] Comment on above: Performed By: #### C BC, GFR, RANDAL, SILVANA, ANEU, BMP #### [place] [id number] Hgb 13.1 G/dL Normal 12.0-16.0 [facility] ([place] Comment on above: Performed By: #### C BC, GFRRANDAL MDW, ANEU, BMP #### [place] [id number] MCH (RBC) [Entitic mass] 26.1 pg Low 27.0-31.2 [facility] ([place] Comment on above: Performed By: #### C MAGDALENE GFRRANDAL MDW, ANEU, BMP #### [place] [id number] MCHC 34.1 G/dL Normal 33.0-37.0 [facility] ([place] Comment on above: Performed By: #### C BC, GFRRANDAL MDW, ANEU, BMP #### [place] [id number] MCV (RBC) [Entitic vol] 76.7 fL Low 80.0-94.0 [facility] ([place] Comment on above: Performed By: #### C BC GFRRANDAL MDW, ANEU, BMP #### [place] [id number] Platelet 224 10 3/mcL Normal 130-400 [facility] ([place] Comment on above: Performed By: #### C BC, GFRRANDAL MDW, ANEU, BMP #### [address] [address] Platelet mean volume (Bld) [Entitic vol] 9.7 fL Normal 7.4-10.4 [facility] ([place] Comment on above: Performed By: #### C BC, GFR, ADTIMMY, SILVANA, ANEU, BMP #### [address] [address] RBC 5.00 10 6/mcL Normal 4.20-5.40 [facility] ([place] Comment on above: Performed By: #### C BC, GFR, RANDAL, SILVANA, ANEU, BMP #### [address] [address] WBC 7.4 10 3/mcL Normal 4.6-10.8 [facility] ([place] Comment on above: Performed By: #### C BC, GFR, RANDAL, SILVANA, ANEU, BMP #### [address] [address] CMPon 06-26-2023 Albumin Level 3.9 G/dL Normal 3.5-5.0 [facility] ([place] Comment on above: Performed By: #### C BC, GFR, RANDAL, SILVANA, ANEU, BMP #### [address] [address] Albumin/Globulin [Mass ratio] 1.0 {ratio} Low 1.1-2.5 [facility] ([place] Comment on above: Performed By: #### C BC, GFR, ADTIMMY, W, ANEU, BMP #### [address] [address] ALP [Catalytic activity/Vol] 97 U/L Normal 40-135 [facility] ([place] Comment on above: Performed By: #### C BC, GFR, ADTIMMY, MDW, ANEU, BMP #### [address] [address] ALT [Catalytic activity/Vol] 57 U/L Normal 14-59 [facility] ([place] Comment on above: Performed By: #### C BC, GFR, ADTIMMY, W, ANEU, BMP #### [address] [address] AST [Catalytic activity/Vol] 33 U/L Normal 10-40 [facility] ([place] Comment on above: Performed By: #### C BC, GFR, ADTIMMY, MDW, ANEU, BMP #### [address] [address] Bili Total 0.9 mg/dL Normal 0.2-1.0 [facility] ([place]) Comment on above: Result Comment: Use of this assay is not recommended for patients undergoing treatment with eltrombopag due to the potential for falsely elevated results. Performed By: #### C BC, GFR, ADTIMMY, SILVANA, ANEU, BMP #### [address] [address] BUN/Creatinine Ratio 18 ratio Normal 7-27 [facility] ([place] Comment on above: Performed By: #### C BC, GFR, ADTIMMY, W, ANEU, BMP #### [address] [address] Calcium [Mass/Vol] 8.9 mg/dL Normal 8.4-10.2 [facility] ([place]) Comment on above: Performed By: #### C BC, GFR, ADTIMMY, W, ANEU, BMP #### [address] [address] Chloride [Moles/Vol] 101 mmol/L Normal 98-107 [facility] ([place] Comment on above: Performed By: #### C BC, GFR, ADTIMMY, MDW, ANEU, BMP #### [address] [address] CO2 [Moles/Vol] 29 mmol/L Normal 22-29 [facility] ([place] Comment on above: Performed By: #### C BC, GFR, ADIFF, MDW, ANEU, BMP #### [address] [address] Creatinine [Mass/Vol] 0.77 mg/dL Normal 0.55-1.02 [facility] ([place] Comment on above: Performed By: #### C BC, GFR, SILVANA TEE, ANEU, BMP #### [address] [address] Electrolyte Balance 9.0 mEq/L Normal 4.0-15.0 [facility] ([place]) Comment on above: Performed By: #### C BC, GFR, SILVANA TEE, ANEU, BMP #### [address] [address] Globulin 3.9 G/dL Normal [facility] ([place] Comment on above: Performed By: #### C BC, GFR, SILVANA TEE, ANEU, BMP #### [address] [address] Glucose [Mass/Vol] 126 mg/dL High 70-105 [facility] ([place] Comment on above: Performed By: #### C BC, GFR, SILVANA TEE, ANEU, BMP #### [address] [address] Potassium [Moles/Vol] 3.8 mmol/L Normal 3.5-5.1 [facility] ([place]) Comment on above: Performed By: #### C BC, GFR, SILVANA TEE, ANEU, BMP #### [address] [address] Sodium [Moles/Vol] 139 mmol/L Normal 136-145 [facility] ([place] Comment on above: Performed By: #### C BC, GFR, SILVANA TEE, ANEU, BMP #### [address] [address] Total Protein 7.8 G/dL Normal 6.4-8.2 [facility] ([place] Comment on above: Performed By: #### C BC, GFR, SILVANA TEE, ANEU, BMP #### [address] [address] Urea nitrogen [Mass/Vol] 14 mg/dL Normal 7-18 [facility] ([place]) Comment on above: Performed By: #### C BC, GFR, ADTIMMY, MDW, ANEU, BMP #### [place] [id number] [place] [address] LABORATORYOrdered By: SYSTEM SYSTEM on 06-26-2023 Albumin [...] 06-26-2023 Lipase Level 37 U/L Normal 16-77 [facility] ([place] Comment on above: Performed By: #### C BC, GFR, ADTIMMY, MDW, ANEU, BMP #### [address] [address] PREGUon 06-26-2023 HCG ( test) Ql (U) Negative Normal [facility] ([place] Comment on above: Performed By: #### C NGOZI DEL CASTILLO ADIFF, MDW, ANEU, BMP #### [address] [address] test (u) int Not detected Invalid Interpretation Code [facility] ([place] Comment on above: Performed By: #### C MAGDALENE, GFRRANDAL MDW, ANEU, BMP #### [address] [address] UAon 06-26-2023 Color (U) Yellow Normal [facility] ([place] Comment on above: Performed By: #### C NGOZI DEL CASTILLO ADIFF, MDW, ANEU, BMP #### [address] [address] Glucose (U) [Mass/Vol] Negative Normal Negative [facility] ([place] Comment on above: Performed By: #### C BC, GFRRANDAL MDW, ANEU, BMP #### [address] [address] Ketones Ql (U) Negative Normal Negative [facility] ([place] Comment on above: Performed By: #### C MAGDALENE GFRRANDAL MDW, ANEU, BMP #### [address] [address] UA Appear Clear Normal Clear [facility] ([place] Comment on above: Performed By: #### C BC GFRRANDAL MDW, ANEU, BMP #### [address] [address] UA Blood Negative Normal Negative [facility] ([place] Comment on above: Performed By: #### C MAGDALENE GFRRANDAL MDW, ANEU, BMP #### [address] [address] UA Nitrite Negative Normal Negative [facility] ([place] Comment on above: Performed By: #### C BC, GFRRANDAL MDW, ANEU, BMP #### [address] [address] UA Spec Grav >=1.030 Abnormal 1.015-1.025 [facility] ([place] Comment on above: Performed By: #### C BC, GFR, RANDAL, SILVANA, ANEU, BMP #### [address] [address] UA Specimen Type Clean Catch Normal [facility] ([place] Comment on above: Performed By: #### C BC, GFR, RANDAL, SILVANA, ANEU, BMP #### [address] [address] UA Urobilinogen 0.2 E.U./dL Normal 0.2-1.0 [facility] ([place] Comment on above: Performed By: #### C BC, GFR, RANDAL, SILVANA, ANEU, BMP #### [address] [address] Urobilinogen (U) [Mass/Vol] Negative Normal Negative [facility] ([place] Comment on above: Performed By: #### C BC, GFR, RANDAL, SILVANA, ANEU, BMP #### [address] [address] UA Leuk Est Small Abnormal Negative [facility] ([place] Comment on above: Performed By: #### C BC, GFR, RANDAL, W, ANEU, BMP #### [address] [address] UA pH 5.5 Normal 5.0 - 8.0 [facility] ([place] Comment on above: Performed By: #### C BC, GFR, RANDAL, W, ANEU, BMP #### [address] [address] UA Protein Negative Normal Negative [facility] ([place] Comment on above: Performed By: #### C BC, GFR, RANDAL, W, ANEU, BMP #### [address] [address] US ABDOMEN COMPLETEon 2023 US ABDOMEN COMPLETE [...] 06/26/2023 2:29:44 PM Ordering Provider: FELIPA TALAVERA [facility]) FOODADon 05-20-2023 Class Description Comment [facility]) Comment on above: Result Comment: Levels of [...] BC, GFR, ADIFF, MDW, ANEU, BMP #### [place] [address] IgE Clam F207 <0.10 Normal Class 0 [facility] ([place] Comment on above: Performed By: #### C BC, GFR, ADIFF, MDW, ANEU, BMP #### [place] [address] IgE Codfish F003 <0.10 Normal Class 0 [facility] ([place] Comment on above: Performed By: #### C BC, GFR, ADIFF, MDW, ANEU, BMP #### [place] [address] IgE [place] F008 <0.10 Normal Class 0 [facility] ([place] Comment on above: Performed By: #### C BC, GFR, ADIFF, MDW, ANEU, BMP #### [place] [address] IgE Egg White F001 0.15 kunits/L Abnormal Class 0/I [facility] ([place] Comment on above: Performed By: #### C BC, GFR, ADIFF, MDW, ANEU, BMP #### [place] [address] IgE Milk F002 0.26 kunits/L Abnormal Class 0/I [facility] ([place] Comment on above: Performed By: #### C BC, GFR, ADIFF, MDW, ANEU, BMP #### [place] [address] IgE Peanut F013 <0.10 Normal Class 0 [facility] ([place] Comment on above: Performed By: #### C BC, GFR, ADIFF, MDW, ANEU, BMP #### [place] [address] IgE Scallop F338 <0.10 Normal Class 0 [facility] ([place] Comment on above: Performed By: #### C BC, GFR, ADIFF, MDW, ANEU, BMP #### [address] [address] IgE Sesame Seed F010 <0.10 Normal Class 0 [facility] ([place] Comment on above: Result Comment: Perf ormed At: [facility] [id number] Jesus Arias MD Ph:[phone] Performed By: #### C BC, GFR, RANDAL, SILVANA, ANEU, BMP #### [place] [address] IgE Shrimp F024 <0.10 Normal Class 0 [facility] ([place] Comment on above: Performed By: #### C BC, GFR, RANDAL, SILVANA, ANEU, BMP #### [place] [address] IgE Soybean F014 <0.10 Normal Class 0 [facility] ([place] Comment on above: Performed By: #### C BC, GFR, RANDAL, SILVANA, ANEU, BMP #### [address] [address] IgE Barton F256 <0.10 Normal Class 0 [facility] ([place] Comment on above: Performed By: #### C BC, GFR, RANDAL, SILVANA, ANEU, BMP #### [address] [address] IgE Wheat F004 0.22 kunits/L Abnormal Class 0/I [facility] ([place] Comment on above: Performed By: #### C BC, GFR, RANDAL, SILVANA, ANEU, BMP #### [address] [address] .Auto Diffon 05-16-2023 Basophil, Absolute 0.1 10 3/mcL Normal 0.0-0.2 [facility] ([place] Comment on above: Performed By: #### C BC, GFR, RANDAL, SILVANA, ANEU, BMP #### [address] [address] Basophils/100 WBC (Bld) 1.0 % Normal 0.0-2.5 [facility] ([place] Comment on above: Performed By: #### C BC, GFR, ADIFF, MDW, ANEU, BMP #### [address] [address] Eosinophil, Absolute 0.3 10 3/mcL Normal 0.0-0.4 [facility] ([place] Comment on above: Performed By: #### C BC, GFR, ADIFF, MDW, ANEU, BMP #### [address] [address] Eosinophils/100 WBC (Bld) 4.0 % Normal 0.0-7.0 [facility] ([place] Comment on above: Performed By: #### C BC, GFR, ADIFF, MDW, ANEU, BMP #### [address] [address] Lymphocyte, Absolute 2.3 10 3/mcL Normal 0.8-3.9 [facility] ([place] Comment on above: Performed By: #### C BC, GFR, ADIFF, MDW, ANEU, BMP #### [address] [address] Lymphocytes/100 WBC (Bld) 33.1 % Normal 10.0-50.0 [facility] ([place] Comment on above: Performed By: #### C BC, GFR, ADIFF, MDW, ANEU, BMP #### [address] [address] Monocyte, Absolute 0.5 10 3/mcL Normal 0.2-1.0 [facility] ([place] Comment on above: Performed By: #### C BC, GFR, ADIFF, MDW, ANEU, BMP #### [address] [address] Monocytes/100 WBC (Bld) 7.2 % Normal 1.7-13.0 [facility] ([place] Comment on above: Performed By: #### C BC, GFR, ADIFF, MDW, ANEU, BMP #### [address] [address] Neutrophils/100 WBC (Bld) 54.7 % Normal 37.0-80.0 [facility] ([place] Comment on above: Performed By: #### C BC, GFR, SILVANA TEE, ANEU, BMP #### [address] [address] .GFRon 05-16-2023 GFR Non- 92 ml/min/1.73sqm Normal [facility] ([place] Comment on above: Result Comment: GFR Population [...] BC, GFR, SILVANA TEE, ANEU, BMP #### [address] [address] GFR 112 ml/min/1.73sqm Normal [facility] ([place] Comment on above: Result Comment: GFR Population [...] BC, GFR, SILVANA TEE, ANEU, BMP #### [address] [address] .MDWon 05-16-2023 Monocyte Distribution Width 17.01 Normal 0.00-20.00 [facility] ([place] Comment on above: Result Comment: For ED adult patients suspected of sepsis, MDW<=20.0 does not rule out sepsis or risk of sepsis Performed By: #### C BC, GFR, ADTIMMY, MDW, ANEU, BMP #### [address] [address] .NEUABSon 05-16-2023 Neutrophil, Absolute 3.8 10 3/mcL Normal 2.9-6.2 [facility] ([place] Comment on above: Performed By: #### C BC, GFR, ADTIMMY, SILVANA, ANEU, BMP #### [place] [id number] BMPon 05-16-2023 BUN/Creatinine Ratio 22 ratio Normal 7-27 [facility] ([place] Comment on above: Performed By: #### C BC, GFR, ADTIMMY, W, ANEU, BMP #### [address] [address] Calcium [Mass/Vol] 8.9 mg/dL Normal 8.4-10.2 [facility] ([place] Comment on above: Performed By: #### C BC, GFR, ADTIMMY, W, ANEU, BMP #### [address] [address] Chloride [Moles/Vol] 101 mmol/L Normal 98-107 [facility] ([place] Comment on above: Performed By: #### C BC, GFR, ADIFF, MDW, ANEU, BMP #### [address] [address] CO2 [Moles/Vol] 25 mmol/L Normal 22-29 [facility] ([place] Comment on above: Performed By: #### C BC, GFR, ADIFF, MDW, ANEU, BMP #### [address] [address] Creatinine [Mass/Vol] 0.77 mg/dL Normal 0.55-1.02 [facility] ([place] Comment on above: Performed By: #### C BC, GFR, RANDAL, SILVANA, ANEU, BMP #### [address] [address] Electrolyte Balance 11.0 mEq/L Normal 4.0-15.0 [facility] ([place] Comment on above: Performed By: #### C BC, GFR, RANDAL, W, ANEU, BMP #### [address] [address] Glucose [Mass/Vol] 86 mg/dL Normal 70-105 [facility] ([place]) Comment on above: Performed By: #### C BC, GFR, SILVANA TEE, ANEU, BMP #### [address] [address] Potassium [Moles/Vol] 4.1 mmol/L Normal 3.5-5.1 [facility] ([place] Comment on above: Performed By: #### C BC, GFR, RANDAL, SILVANA, ANEU, BMP #### [address] [address] Sodium [Moles/Vol] 137 mmol/L Normal 136-145 [facility] ([place] Comment on above: Performed By: #### C BC, GFR, RANDAL, SILVANA, ANEU, BMP #### [address] [address] Urea nitrogen [Mass/Vol] 17 mg/dL Normal 7-18 [facility] ([place] Comment on above: Performed By: #### C BC, GFR, SILVANA TEE, ANEU, BMP #### [address] [address] CBCon 05-16-2023 Erythrocyte distribution width (RBC) [Ratio] 15.5 % High 11.5-14.5 [facility] ([place] Comment on above: Performed By: #### C BC, GFR, ADTIMMY, W, ANEU, BMP #### [address] [address] Hematocrit (Bld) [Volume fraction] 38.5 % Normal 37.0-47.0 [facility] ([place] Comment on above: Performed By: #### C BC, GFR, RANDAL, W, ANEU, BMP #### [address] [address] Hgb 13.2 G/dL Normal 12.0-16.0 [facility] ([place] Comment on above: Performed By: #### C BC, GFR, RANDAL, MDW, ANEU, BMP #### [place] [phone] MCH (RBC) [Entitic mass] 26.0 pg Low 27.0-31.2 [facility] [place] Comment on above: Performed By: #### C BC, GFR, RANDAL, W, ANEU, BMP #### [place] [address] MCHC 34.3 G/dL Normal 33.0-37.0 [facility] [place] Comment on above: Performed By: #### C BC, GFR, ADTIMMY, MDW, ANEU, BMP #### [address] [address] MCV (RBC) [Entitic vol] 75.9 fL Low 80.0-94.0 [facility] ([place] Comment on above: Performed By: #### C BC, GFR, ADTIMMY, MDW, ANEU, BMP #### [address] [address] Platelet 248 10 3/mcL Normal 130-400 [facility] [place] Comment on above: Performed By: #### C BC, GFR, ADTIMMY, MDW, ANEU, BMP #### [address] [address] Platelet mean volume (Bld) [Entitic vol] 9.7 fL Normal 7.4-10.4 [facility] [place] Comment on above: Performed By: #### C BC, GFR, ADIFF, MDW, ANEU, BMP #### [place] [phone] RBC 5.07 10 6/mcL Normal 4.20-5.40 [facility] ([place] Comment on above: Performed By: #### C MAGDALENE, GFRRANDAL MDW, ANEU, BMP #### [place] [address] [place], [place] [address] WBC 7.0 10 3/mcL Normal 4.6-10.8 [facility] ([place] Comment on above: Performed By: #### C MAGDALENE, GFR, SILVANA TEE, ANEU, BMP #### [place] [address] [place], [place] [address] LABORATORYOrdered By: SYSTEM SYSTEM on 05-16-2023 Basophil, [...] SS HCGQon 05-15-2023 hCG, quantitative <1.0 Normal [facility] ([place] Comment on above: Result Comment: HCG Levels [...] CASTILLO ADIFF, MDW, FABI, BMP #### Kalyan [address] [address] LABORATORYOrdered By: SYSTEM SYSTEM on 05-15-2023 HCG [...] Basophil, Absolute 0.0 10 3/mcL Normal 0.0-0.2 [facility] ([place] Comment on above: Performed By: #### C MAGDALENE, RANDAL MELVIN MDW, ANEU, BMP #### [address] [address] Basophils/100 WBC (Bld) 0.2 % Normal 0.0-2.5 [facility] [place] Comment on above: Performed By: #### C BC, GFR, ADIFF, MDW, ANEU, BMP #### [address] [address] Eosinophil, Absolute 0.2 10 3/mcL Normal 0.0-0.4 [facility] [place] Comment on above: Performed By: #### C BC, GFR, ADIFF, MDW, ANEU, BMP #### [address] [address] Eosinophils/100 WBC (Bld) 3.4 % Normal 0.0-7.0 [facility] [place] Comment on above: Performed By: #### C BC, GFR, ADIFF, MDW, ANEU, BMP #### [address] [address] Lymphocyte, Absolute 1.7 10 3/mcL Normal 0.8-3.9 [facility] ([place] Comment on above: Performed By: #### C BC, GFR, ADIFF, MDW, ANEU, BMP #### [address] [address] Lymphocytes/100 WBC (Bld) 23.6 % Normal 10.0-50.0 [facility] ([place] Comment on above: Performed By: #### C BC, GFR, ADIFF, MDW, ANEU, BMP #### [address] [address] Monocyte, Absolute 0.5 10 3/mcL Normal 0.2-1.0 [facility] ([place] Comment on above: Performed By: #### C BC, GFR, ADIFF, MDW, ANEU, BMP #### [address] [address] Monocytes/100 WBC (Bld) 6.4 % Normal 1.7-13.0 [facility] [place] Comment on above: Performed By: #### C BC, GFR, ADIFF, MDW, ANEU, BMP #### [address] [address] Neutrophils/100 WBC (Bld) 66.4 % Normal 37.0-80.0 [facility] ([place]) Comment on above: Performed By: #### C MAGDALENE, GFRRANDAL MDW, FABI, BMP #### [address] [address] .GFRon 04-03-2023 GFR 133 ml/min/1.73sqm Normal [facility] ([place]) Comment on above: Result Comment: [...] GFR, SILVANA TEE, FABI, BMP #### [place] [address] [address] GFR Non- 110 ml/min/1.73sqm Normal [facility] ([place] Comment on above: Result Comment: GFR Population [...] BC, GFR, ADTIMMY, W, ANEU, BMP #### [place] [address] .MDWon 04-03-2023 Monocyte Distribution Width 15.97 Normal 0.00-20.00 [facility] [place] Comment on above: Result Comment: For ED adult patients suspected of sepsis, MDW<=20.0 does not rule out sepsis or risk of sepsis Performed By: #### C BC, GFR, ADTIMMY, MDW, ANEU, BMP #### [place] [address] .NEUABSon 04-03-2023 Neutrophil, Absolute 4.9 10 3/mcL Normal 2.9-6.2 [facility] ([place] Comment on above: Performed By: #### C BC, GFR, RANDAL, MDW, ANEU, BMP #### [place] [address] .Urinalysis Microscopic (AO) on 04-03-2023 UA Bacteria 1+ /hpf Abnormal [facility] [place] Comment on above: Performed By: #### C BC, GFR, ADTIMMY, MDW, ANEU, BMP #### [place] [address] UA RBC 0-5 Abnormal None Seen [facility] [place] Comment on above: Performed By: #### C BC, GFR, ADTIMMY, MDW, ANEU, BMP #### [place] [address] UA Squam Epithelial LOADED Abnormal None Seen [facility] [place] Comment on above: Performed By: #### C BC, GFR, ADIFF, MDW, ANEU, BMP #### [place] [address] UA WBC 5-10 Abnormal None Seen [facility] [place] Comment on above: Performed By: #### C BC, GFR, ADIFF, MDW, ANEU, BMP #### [place] [address] CBCon 04-03-2023 Erythrocyte distribution width (RBC) [Ratio] 15.3 % High 11.5-14.5 [facility] [place] Comment on above: Performed By: #### C BC, GFRRANDAL MDW, ANEU, BMP #### [place] [phone] Hematocrit (Bld) [Volume fraction] 40.3 % Normal 37.0-47.0 [facility] [place] Comment on above: Performed By: #### C BC, GFR, RANDAL, W, ANEU, BMP #### [place] [address] Hgb 13.4 G/dL Normal 12.0-16.0 [facility] [place] Comment on above: Performed By: #### C BC, GFR, RANDAL, W, ANEU, BMP #### [place] [phone] MCH (RBC) [Entitic mass] 25.4 pg Low 27.0-31.2 [facility] [place] Comment on above: Performed By: #### C BC, GFR, RANDAL, W, ANEU, BMP #### [place] [address] MCHC 33.3 G/dL Normal 33.0-37.0 [facility] [place] Comment on above: Performed By: #### C BC, GFR, RANDAL, W, ANEU, BMP #### [place] [phone] MCV (RBC) [Entitic vol] 76.1 fL Low 80.0-94.0 [facility] [place] Comment on above: Performed By: #### C BC, GFR, RANDAL, W, ANEU, BMP #### [place] [id number] Platelet 238 10 3/mcL Normal 130-400 [facility] [place] Comment on above: Performed By: #### C BC, GFR, RANDAL, W, ANEU, BMP #### [place] [id number] Platelet mean volume (Bld) [Entitic vol] 10.3 fL Normal 7.4-10.4 [facility] ([place] Comment on above: Performed By: #### C BC, GFR, SILVANA TEE, ANEU, BMP #### [address] [address] RBC 5.29 10 6/mcL Normal 4.20-5.40 [facility] ([place] Comment on above: Performed By: #### C BC, GFR, RANDAL, SILVANA, ANEU, BMP #### [address] [address] WBC 7.4 10 3/mcL Normal 4.6-10.8 [facility] ([place] Comment on above: Performed By: #### C BC, GFR, RANDAL, SILVANA, ANEU, BMP #### [address] [address] CMPon 04-03-2023 Albumin Level 3.9 G/dL Normal 3.5-5.0 [facility] ([place] Comment on above: Performed By: #### C MAGDALENE, GFR, SILVANA TEE, ANEU, BMP #### [address] [address] Albumin/Globulin [Mass ratio] 1.0 {ratio} Low 1.1-2.5 [facility] ([place] Comment on above: Performed By: #### C BC, GFR, RANDAL, SILVANA, ANEU, BMP #### [address] [address] ALP [Catalytic activity/Vol] 109 U/L Normal 40-135 [facility] ([place] Comment on above: Performed By: #### C BC, GFR, RANDAL, SILVANA, ANEU, BMP #### [address] [address] ALT [Catalytic activity/Vol] 63 U/L High 14-59 [facility] [place] Comment on above: Performed By: #### C BC, GFR, RANDAL, SILVANA, ANEU, BMP #### [address] [address] AST [Catalytic activity/Vol] 42 U/L High 10-40 [facility] [place] Comment on above: Performed By: #### C BC, GFR, SILVANA TEE, ANEU, BMP #### [address] [address] Bili Total 0.7 mg/dL Normal 0.2-1.0 [facility] ([place] Comment on above: Result Comment: Use of this assay is not recommended for patients undergoing treatment with eltrombopag due to the potential for falsely elevated results. Performed By: #### C MAGDALENE, GFR, SILVANA TEE, ANEU, BMP #### [address] [address] BUN/Creatinine Ratio 20 ratio Normal 7-27 [facility] ([place] Comment on above: Performed By: #### C BC, GFR, SILVANA TEE, ANEU, BMP #### [address] [address] Calcium [Mass/Vol] 9.0 mg/dL Normal 8.4-10.2 [facility] ([place] Comment on above: Performed By: #### C BC, GFRRANDAL MDW, ANEU, BMP #### [address] [address] Chloride [Moles/Vol] 103 mmol/L Normal 98-107 [facility] ([place] Comment on above: Performed By: #### C BC, GFR, SILVANA TEE, ANEU, BMP #### [address] [address] CO2 [Moles/Vol] 27 mmol/L Normal 22-29 [facility] ([place] Comment on above: Performed By: #### C BC, GFR, SILVANA TEE, ANEU, BMP #### [address] [address] Creatinine [Mass/Vol] 0.66 mg/dL Normal 0.55-1.02 [facility] ([place] Comment on above: Performed By: #### C BC, GFR, ADIFF, MDW, ANEU, BMP #### [address] [address] Electrolyte Balance 8.0 mEq/L Normal 4.0-15.0 [facility] ([place] Comment on above: Performed By: #### C BC, GFR, ADIFF, MDW, ANEU, BMP #### [address] [address] Globulin 4.0 G/dL Normal [facility] ([place] Comment on above: Performed By: #### C BC, GFR, ADIFF, MDW, ANEU, BMP #### [address] [address] Glucose [Mass/Vol] 83 mg/dL Normal 70-105 [facility] ([place] Comment on above: Performed By: #### C BC, GFR, ADTIMMY, MDW, ANEU, BMP #### [address] [address] Potassium [Moles/Vol] 4.2 mmol/L Normal 3.5-5.1 [facility] ([place] Comment on above: Performed By: #### C BC, GFR, RANDAL, MDW, ANEU, BMP #### [address] [address] Sodium [Moles/Vol] 138 mmol/L Normal 136-145 [facility] ([place] Comment on above: Performed By: #### C BC, GFR, ADIFF, MDW, ANEU, BMP #### [address] [address] Total Protein 7.9 G/dL Normal 6.4-8.2 [facility] ([place] Comment on above: Performed By: #### C BC, GFR, ADIFF, MDW, ANEU, BMP #### [address] [address] Urea nitrogen [Mass/Vol] 13 mg/dL Normal 7-18 [facility] [place] Comment on above: Performed By: #### C BC, GFR, ADIFF, MDW, ANEU, BMP #### [place] [phone] [place], [place] [address] CT ABD/PELVIS W/ IV CONTRAST ONLYon 04-03-2023 [...] Reagan Rowe MD Preliminary Report By: Odin eKrns Electronically signed By Reagan Rowe MD Dictated Date: 04/03/2023 4:54:04 PM Prelim Date: 04/03/2023 5:00:21 PM Sign Date: 04/03/2023 5:42:34 PM Ordering Provider: BLAYNE Renae [facility] ([place] LABORATORYOrdered By: SYSTEM SYSTEM on 04-03-2023 Albumin [...] 04-03-2023 Lipase Level 38 U/L Normal 16-77 [facility] ([place] Comment on above: Performed By: #### C NGOZI DEL CASTILLO ADIFF, MDW, ANEU, BMP #### [address] [address] PREGUon 04-03-2023 HCG ( test) Ql (U) Negative Normal [facility] ([place] Comment on above: Performed By: #### C NGOZI DEL CASTILLO ADIFF, MDW, ANEU, BMP #### [place] [phone] [place], [place] [address] test (u) int Not detected Invalid Interpretation Code [facility] [place] Comment on above: Performed By: #### C BC, GFR, ADTIMMY, MDW, ANEU, BMP #### [address] [address] UAon 04-03-2023 Color (U) Yellow Normal [facility] ([place] Comment on above: Performed By: #### C BC, GFR, ADIFF, MDW, ANEU, BMP #### [place] [phone] Glucose (U) [Mass/Vol] Negative Normal Negative [facility] ([place] Comment on above: Performed By: #### C BC, GFR, ADTIMMY, MDW, ANEU, BMP #### [address] [address] Ketones Ql (U) Negative Normal Negative [facility] ([place] Comment on above: Performed By: #### C BC, GFR, ADTIMMY, MDW, ANEU, BMP #### [place] [address] UA Appear Cloudy Abnormal Clear [facility] ([place] Comment on above: Performed By: #### C BC, GFR, ADTIMMY, MDW, ANEU, BMP #### [address] [address] UA Blood Negative Normal Negative [facility] [place] Comment on above: Performed By: #### C BC, GFR, ADIFF, MDW, ANEU, BMP #### [address] [address] UA Leuk Est Small Abnormal Negative [facility] ([place] Comment on above: Performed By: #### C BC, GFR, ADIFF, MDW, ANEU, BMP #### [address] [address] UA Nitrite Negative Normal Negative [facility] [place] Comment on above: Performed By: #### C BC, GFR, ADIFF, MDW, ANEU, BMP #### [address] [address] UA pH 6.0 Normal 5.0 - 8.0 [facility] ([place] Comment on above: Performed By: #### C BC, GFR, ADTIMMY, MDW, ANEU, BMP #### [address] [address] UA Protein Negative Normal Negative [facility] [place] Comment on above: Performed By: #### C BC, GFR, ADIFF, MDW, ANEU, BMP #### [address] [address] UA Spec Grav >=1.030 Abnormal 1.015-1.025 [facility] ([place] Comment on above: Performed By: #### C BC, GFR, ADIFF, MDW, ANEU, BMP #### [address] [address] UA Specimen Type Clean Catch Normal [facility] ([place] Comment on above: Performed By: #### C BC, GFR, ADIFF, MDW, ANEU, BMP #### [place] [phone] UA Urobilinogen 0.2 E.U./dL Normal 0.2-1.0 [facility] ([place] Comment on above: Performed By: #### C BC, GFR, ADTIMMY, MDW, ANEU, BMP #### [address] [address] Urobilinogen (U) [Mass/Vol] Negative Normal Negative [facility] ([place] Comment on above: Performed By: #### C BC, GFR, ADTIMMY, MDW, ANEU, BMP #### [address] [address] US ABDOMEN LIMITEDon 024 US ABDOMEN LIMITED [...] 04/03/2023 4:32:24 PM Ordering Provider: BLAYNE DORAN [facility] ([place]) .GFRon 02-24-2023 GFR 127 ml/min/1.73sqm Normal [facility] ([place] Comment on above: Result Comment: GFR Population [...] B MP, A1C, TSH, GFR, LIPID #### [address] [address] #### INSLN #### [address] [address] GFR Non- 105 ml/min/1.73sqm Normal [facility] ([place] Comment on above: Result Comment: GFR Population [...] B MP, A1C, TSH, GFR, LIPID #### [address] [address] #### INSLN #### [address] [address] A1Con 02-24-2023 HbA1c (Bld) [Mass fraction] 5.3 % Normal 4.3-6.4 [facility] ([place] Comment on above: Performed By: #### C BC, GFR, RANDAL, W, ANEU, BMP #### [address] [address] BMPon 02-24-2023 BUN/Creatinine Ratio 14 ratio Normal 7-27 [facility] ([place] Comment on above: Performed By: #### B MP, A1C, TSH, GFR, LIPID #### [place] [address] #### INSLN #### [address] [address] Calcium [Mass/Vol] 9.5 mg/dL Normal 8.4-10.2 [facility] ([place] Comment on above: Performed By: #### B MP, A1C, TSH, GFR, LIPID #### [address] [address] #### INSLN #### [address] [address] Chloride [Moles/Vol] 105 mmol/L Normal 98-107 [facility] ([place] Comment on above: Performed By: #### B MP, A1C, TSH, GFR, LIPID #### [address] [address] #### INSLN #### [address] [address] CO2 [Moles/Vol] 28 mmol/L Normal 22-29 [facility] ([place] Comment on above: Performed By: #### B MP, A1C, TSH, GFR, LIPID #### [address] [address] #### INSLN #### [address] [address] Creatinine [Mass/Vol] 0.69 mg/dL Normal 0.55-1.02 [facility] [place] Comment on above: Performed By: #### B MP, A1C, TSH, GFR, LIPID #### [address] [address] #### INSLN #### [address] [address] Electrolyte Balance 11.0 mEq/L Normal 4.0-15.0 [facility] ([place] Comment on above: Performed By: #### B MP, A1C, TSH, GFR, LIPID #### [place] [address] #### INSLN #### [address] [address] Glucose [Mass/Vol] 102 mg/dL Normal 70-105 [facility] ([place] Comment on above: Performed By: #### B MP, A1C, TSH, GFR, LIPID #### [address] [address] #### INSLN #### [address] [address] Potassium [Moles/Vol] 4.4 mmol/L Normal 3.5-5.1 [facility] [place] Comment on above: Performed By: #### B MP, A1C, TSH, GFR, LIPID #### [address] [address] #### INSLN #### [address] [address] Sodium [Moles/Vol] 144 mmol/L Normal 136-145 [facility] ([place] Comment on above: Performed By: #### B MP, A1C, TSH, GFR, LIPID #### [address] [address] #### INSLN #### [address] [address] Urea nitrogen [Mass/Vol] 10 mg/dL Normal 7-18 [facility] ([place] Comment on above: Performed By: #### B MP, A1C, TSH, GFR, LIPID #### [address] [address] #### INSLN #### [address] [address] INSLNon 02-24-2023 Insulin 23.77 munit/L Normal 2.60-37.60 [facility] ([place] Comment on above: Performed By: #### C BC, GFR, ADIFF, MDW, ANEU, BMP #### [address] [address] LABORATORYOrdered By: SYSTEM SYSTEM on 02-24-2023 Calcium [...] [Mass/Vol] 249 mg/dL High 0-200 [facility] [place] Comment on above: Result Comment: Chol esterol Reference Interval: Less than 200 Desirable 200-239 Borderline high risk 240 and above High risk Performed By: #### B MP, A1C, TSH, GFR, LIPID #### [place] [address] #### INSLN #### [address] [address] Cholesterol in HDL [Mass/Vol] 47 mg/dL Normal 40-60 [facility] ([place] Comment on above: Performed By: #### B MP, A1C, TSH, GFR, LIPID #### [address] [address] #### INSLN #### [address] [address] Cholesterol in LDL [Mass/Vol] 159 mg/dL High 0-130 [facility] [place] Comment on above: Performed By: #### B MP, A1C, TSH, GFR, LIPID #### [place] [address] #### INSLN #### [address] [address] Triglyceride [Mass/Vol] 217 mg/dL High 0-150 [facility] ([place] Comment on above: Result Comment: Trig lyceride Reference Interval: Less than 150 Normal 150-199 Borderline high risk 200-499 High risk 500 or higher Very high risk Performed By: #### B MP, A1C, TSH, GFR, LIPID #### [place] [address] #### INSLN #### [address] [address] TSHon 02-24-2023 TSH Qn 1.05 m[IU]/L Normal 0.36-3.74 [facility] ([place] Comment on above: Performed By: #### B MP, A1C, TSH, GFR, LIPID #### [address] [address] #### INSLN #### [place] [address] .Auto Diffon 02-22-2023 Basophil, Absolute 0.1 10 3/mcL Normal 0.0-0.2 [facility] ([place] Comment on above: Performed By: #### C BC, GFR, ADTIMMY, MDW, ANEU, BMP #### [address] [address] Basophils/100 WBC (Bld) 0.7 % Normal 0.0-2.5 [facility] [place] Comment on above: Performed By: #### C BC, GFR, ADIFF, MDW, ANEU, BMP #### [address] [address] Eosinophil, Absolute 0.1 10 3/mcL Normal 0.0-0.4 [facility] ([place] Comment on above: Performed By: #### C BC, GFR, ADIFF, MDW, ANEU, BMP #### [address] [address] Eosinophils/100 WBC (Bld) 1.6 % Normal 0.0-7.0 [facility] [place] Comment on above: Performed By: #### C BC, GFR, ADIFF, MDW, ANEU, BMP #### [address] [address] Lymphocyte, Absolute 2.1 10 3/mcL Normal 0.8-3.9 [facility] ([place] Comment on above: Performed By: #### C BC, GFR, ADIFF, MDW, ANEU, BMP #### [address] [address] Lymphocytes/100 WBC (Bld) 27.1 % Normal 10.0-50.0 [facility] ([place] Comment on above: Performed By: #### C BC, GFR, SILVANA TEE, ANEU, BMP #### [address] [address] Monocyte, Absolute 0.4 10 3/mcL Normal 0.2-1.0 [facility] ([place] Comment on above: Performed By: #### C BC, GFR, ADSILVANA WARNER, ANEU, BMP #### [address] [address] Monocytes/100 WBC (Bld) 4.9 % Normal 1.7-13.0 [facility] ([place] Comment on above: Performed By: #### C BC, GFR, SILVANA TEE, ANEU, BMP #### [address] [address] Neutrophils/100 WBC (Bld) 65.7 % Normal 37.0-80.0 [facility] ([place] Comment on above: Performed By: #### C BC, GFR, SILVANA TEE, ANEU, BMP #### [address] [address] .GFRon 02-22-2023 GFR 117 ml/min/1.73sqm Normal [facility] ([place] Comment on above: Result Comment: GFR Population [...] BC, GFR, ADTIMMY, W, ANEU, BMP #### [address] [address] GFR Non- 96 ml/min/1.73sqm Normal [facility] ([place] Comment on above: Result Comment: GFR Population [...] BC, GFR, ADIFF, MDW, ANEU, BMP #### [address] [address] .MDWon 02-22-2023 Monocyte Distribution Width 15.51 Normal 0.00-20.00 [facility] [place] Comment on above: Result Comment: For ED adult patients suspected of sepsis, MDW<=20.0 does not rule out sepsis or risk of sepsis Performed By: #### C BC, GFR, ADIFF, MDW, ANEU, BMP #### [address] [address] .NEUABSon 02-22-2023 Neutrophil, Absolute 5.1 10 3/mcL Normal 2.9-6.2 [facility] ([place] Comment on above: Performed By: #### C BC, GFR, ADIFF, MDW, ANEU, BMP #### [address] [address] .Urinalysis Microscopic (AO) on 02-22-2023 UA Bacteria 2+ /hpf Abnormal [facility] ([place] Comment on above: Performed By: #### C BC, GFR, ADIFF, MDW, ANEU, BMP #### [address] [address] UA RBC None Seen Normal None Seen [facility] [place] Comment on above: Performed By: #### C BC, GFR, SILVANA TEE, ANEU, BMP #### [address] [address] UA Squam Epithelial 0-5 Abnormal None Seen [facility] [place] Comment on above: Performed By: #### C BC, GFR, SILVANA TEE, ANEU, BMP #### [address] [address] UA WBC 5-10 Abnormal None Seen [facility] [place] Comment on above: Performed By: #### C BC, GFR, SILVANA TEE, ANEU, BMP #### [address] [address] BMPon 02-22-2023 BUN/Creatinine Ratio 12 ratio Normal 7-27 [facility] ([place] Comment on above: Performed By: #### C BC, GFR, SILVANA TEE, ANEU, BMP #### [address] [address] Calcium [Mass/Vol] 9.6 mg/dL Normal 8.4-10.2 [facility] ([place] Comment on above: Performed By: #### C BC, GFR, SILVANA TEE, ANEU, BMP #### [address] [address] Chloride [Moles/Vol] 102 mmol/L Normal 98-107 [facility] ([place]) Comment on above: Performed By: #### C BC, GFR, SILVANA TEE, ANEU, BMP #### [address] [address] CO2 [Moles/Vol] 28 mmol/L Normal 22-29 [facility] ([place]) Comment on above: Performed By: #### C BC, GFR, SILVANA TEE, ANEU, BMP #### [address] [address] Creatinine [Mass/Vol] 0.74 mg/dL Normal 0.55-1.02 [facility] ([place]) Comment on above: Performed By: #### C BC, GFR, ADIFF, MDW, ANEU, BMP #### [address] [address] Electrolyte Balance 9.0 mEq/L Normal 4.0-15.0 [facility] ([place]) Comment on above: Performed By: #### C BC, GFR, ADIFF, MDW, ANEU, BMP #### [address] [address] Glucose [Mass/Vol] 85 mg/dL Normal 70-105 [facility] ([place]) Comment on above: Performed By: #### C BC, GFR, ADTIMMY, MDW, ANEU, BMP #### [address] [address] Potassium [Moles/Vol] 3.7 mmol/L Normal 3.5-5.1 [facility] ([place]) Comment on above: Performed By: #### C BC, GFR, ADTIMMY, MDW, ANEU, BMP #### [address] [address] Sodium [Moles/Vol] 139 mmol/L Normal 136-145 [facility] ([place]) Comment on above: Performed By: #### C BC, GFR, ADIFF, MDW, ANEU, BMP #### [address] [address] Urea nitrogen [Mass/Vol] 9 mg/dL Normal 7-18 [facility] ([place]) Comment on above: Performed By: #### C BC, GFR, ADIFF, MDW, ANEU, BMP #### [address] [address] CBCon 02-22-2023 Erythrocyte distribution width (RBC) [Ratio] 15.1 % High 11.5-14.5 [facility] ([place]) Comment on above: Performed By: #### C BC, GFR, ADIFF, MDW, ANEU, BMP #### [address] [address] Hematocrit (Bld) [Volume fraction] 41.8 % Normal 37.0-47.0 [facility] ([place] Comment on above: Performed By: #### C BC, GFR, RANDAL, W, ANEU, BMP #### [address] [address] Hgb 13.9 G/dL Normal 12.0-16.0 [facility] ([place] Comment on above: Performed By: #### C BC, GFR, RANDAL, W, ANEU, BMP #### [address] [address] MCH (RBC) [Entitic mass] 24.9 pg Low 27.0-31.2 [facility] ([place] Comment on above: Performed By: #### C BC, GFR, RANDAL, W, ANEU, BMP #### [address] [address] MCHC 33.3 G/dL Normal 33.0-37.0 [facility] ([place] Comment on above: Performed By: #### C BC, GFR, ADTIMMY, MDW, ANEU, BMP #### [address] [address] MCV (RBC) [Entitic vol] 74.8 fL Low 80.0-94.0 [facility] ([place]) Comment on above: Performed By: #### C BC, GFR, ADTIMMY, MDW, ANEU, BMP #### [address] [address] Platelet 244 10 3/mcL Normal 130-400 [facility] ([place] Comment on above: Performed By: #### C BC, GFR, ADTIMMY, MDW, ANEU, BMP #### [address] [address] Platelet mean volume (Bld) [Entitic vol] 9.5 fL Normal 7.4-10.4 [facility] ([place] Comment on above: Performed By: #### C BC, GFR, ADIFF, MDW, ANEU, BMP #### [address] [address] RBC 5.59 10 6/mcL High 4.20-5.40 [facility] ([place] Comment on above: Performed By: #### C NGOZI DEL CASTILLO ADIFF, MDW, FABI BMP #### Kalyan [address] [address] WBC 7.7 10 3/mcL Normal 4.6-10.8 [facility] ([place] Comment on above: Performed By: #### C NGOZI DEL CASTILLO ADIFF, MDW, FABI, BMP #### Kalyan [address] [address] Gel ABOon 02-22-2023 ABO/Rh Interp Positive Invalid Interpretation Code [facility] ([place] Comment on above: Performed By: #### C NGOZI DEL CASTILLO ADIFF, MDW, FABI, BMP #### [address] [address] HCGQon 02-22-2023 hCG, quantitative <1.0 Normal [facility] ([place]) Comment on above: Result Comment: HCG Levels [...] CASTILLO ADIFF, MDW, ANEU, BMP #### Kalyan [place] [address] [place], [place] [address] LABORATORYOrdered By: Suri Alexander on 02-22-2023 ABO/Rh [...] SS UAon 02-22-2023 Color (U) Yellow Normal [facility] ([place] Comment on above: Performed By: #### C NGOZI DEL CASTILLO ADIFF, MDW, FABI, BMP #### [address] [address] Glucose (U) [Mass/Vol] Negative Normal Negative [facility] ([place]) Comment on above: Performed By: #### C NGOZI DEL CASTILLO ADIFF, MDW, ANEU, BMP #### [address] [address] Ketones Ql (U) Negative Normal Negative [facility] ([place] Comment on above: Performed By: #### C BC, GFR, SILVANA TEE, ANEU, BMP #### [address] [address] UA Appear Slightly Cloudy Abnormal Clear [facility] ([place] Comment on above: Performed By: #### C BC, GFR, SILVANA TEE, ANEU, BMP #### [address] [address] UA Blood Negative Normal Negative [facility] ([place] Comment on above: Performed By: #### C MAGDALENE, GFRRANDAL MDW, ANEU, BMP #### [address] [address] UA Leuk Est Trace Abnormal Negative [facility] ([place] Comment on above: Performed By: #### C BC, GFR, SILVANA TEE, ANEU, BMP #### [address] [address] UA Nitrite Negative Normal Negative [facility] ([place] Comment on above: Performed By: #### C BC, GFRRANDAL MDW, ANEU, BMP #### [address] [address] UA pH 5.5 Normal 5.0 - 8.0 [facility] ([place] Comment on above: Performed By: #### C BC, GFR, SILVANA TEE, ANEU, BMP #### [address] [address] UA Protein Negative Normal Negative [facility] ([place] Comment on above: Performed By: #### C BC, GFRRANDAL MDW, ANEU, BMP #### [address] [address] UA Spec Grav >=1.030 Abnormal 1.015-1.025 [facility] ([place]) Comment on above: Performed By: #### C BC, GFRRANDAL MDW, ANEU, BMP #### [id number] [place], [place] [address] UA Specimen Type Clean Catch Normal [facility] ([place]) Comment on above: Performed By: #### C MAGDALENE, RANDAL MELVIN MDW, ANEU, BMP #### [id number] [place], [place] [address] UA Urobilinogen 0.2 E.U./dL Normal 0.2-1.0 [facility] ([place]) Comment on above: Performed By: #### C MAGDALENE, RANDAL MELVIN MDW, ANEU, BMP #### [id number] [place], [place] [address] Urobilinogen (U) [Mass/Vol] Negative Normal Negative [facility] ([place]) Comment on above: Performed By: #### C MAGDALENE, RANDAL MELVIN MDW, ANEU, BMP #### [id number] [place], [place] [address] Absolute lymphocyte counton 02-08-2022 Lymphocytes Auto (Unsp spec) [#/Vol] 1.60 10*3/uL 0.83-4.51 [facility] Work Phone: Basophil percentageon 2021 Basophils/100 WBC (Bld) 0.3 % 0-1 [facility] Work Phone: Bilirubin [Mass/Vol] 0.40 mg/dL 0.20-1.00 [facility] Work Phone: Comment on above: For patients on eltr ombopag therapy, use of Dimension [place] TBIL is not recommended. Chloride [Moles/Vol] 104 mmol/L 98-107 [facility] Work Phone: Eosinophils/100 WBC (Bld) 4.0 % 0-5 [facility] Work Phone: Glucose [Mass/Vol] 81 mg/dL 74-106 [facility] Work Phone: Neutrophils (Bld) [#/Vol] 3.6 10*3/uL 2.0-7.7 [facility] Work Phone: Neutrophils/100 WBC (Bld) 61.8 % 47-70 [facility] Work Phone: Potassium [Moles/Vol] 3.9 mmol/L 3.5-5.1 [facility] Work Phone: Protein [Mass/Vol] 6.1 g/dL 6.4-8.2 [facility] Work Phone: Sodium [Moles/Vol] 138 mmol/L 136-145 [facility] Work Phone: WBC (Bld) [#/Vol] 5.8 10*3/uL 4.4-11.0 [facility] Work Phone: Blood erythrocytes count (nu mber/volume)on 02-08-2022 RBC (Bld) [#/Vol] 3.48 10*6/uL 4.2-5.4 [facility]: Blood hemoglobin measurement (mass/volume)on 02-08-2022 Hemoglobin (Bld) [Mass/Vol] 8.6 g/dL 12.0-15.0 [facility] Work Phone: Blood lymphocytes/100 leukoc yteson 02-08-2022 Lymphocytes/100 WBC (Bld) 27.6 % 19-41 [facility] Work Phone: Blood monocytes/100 leukocyt eson 02-08-2022 Monocytes/100 WBC (Bld) 6.0 % 0-10 [facility] Work Phone: Blood platelet mean volumeon 02-08-2022 Platelet mean volume (Bld) [Entitic vol] 11.5 fL 6.2-12.0 [facility] Work Phone: Determination of erythrocyte mean corpuscular volume (MCV)on 02-08-2022 MCV (RBC) [Entitic vol] 79.3 fL 81-99 [facility] Work Phone: Hematocrit Auto (Bld) [Volum e fraction]on 02-08-2022 Hematocrit (Bld) [Volume fraction] 27.6 % 37-47 [facility] Work Phone: Laboratory - Chemistry and C hemistry - challengeon 02-08-2022 ALP [Catalytic activity/Vol] 110 U/L 45-117 [facility] Work Phone: ALT [Catalytic activity/Vol] 16 U/L 13-56 [facility] Work Phone: CO2 [Moles/Vol] 29.0 mmol/L 21.0-32.0 [facility] Work Phone: Globulin (S) [Mass/Vol] 4.1 g/dL 2.2-4.2 [facility] Work Phone: Urea nitrogen/Creatinine [Mass ratio] 14.3 mg/mg 10-20 [facility] Work Phone: Laboratory - Hematology and Cell countson 02-08-2022 Erythrocyte distribution width (RBC) [Entitic vol] 43.5 fL 35.1-43.9 [facility] Work Phone: Erythrocyte distribution width (RBC) [Ratio] 15.1 % 11.6-14.6 [facility] Work Phone: Immature granulocytes/100 WBC (Bld) 0.300 % 0.0-0.9 [facility] Work Phone: Comment on above: IG% - Immature Granu locytes (promyelocytes, myelocytes and metamyelocytes) > 1% indicates that a LEFT SHIFT is Present. MCH (RBC) [Entitic mass] 24.7 pg 27.0-32.0 [facility] Work Phone: Nucleated RBC/100 WBC (Bld) [Ratio] 0 % 0-5 [facility] Work Phone: MCHC Auto (RBC) [Mass/Vol]on 02-08-2022 MCHC (RBC) [Mass/Vol] 31.2 g/dL 32-36 [facility] Work Phone: No Panel Informationon 02-08 Estimated Creatinine Clearance Calc 135.06 ml/min [facility] Work Phone: Estimated GFR (MDRD) Amer 150 mL/min >60 [facility] Work Phone: Comment on above: GFR Calc Estimated GFR (MDRD) Non-Af Amer 124 mL/min >60 [facility] Work Phone: Comment on above: Non- GFR Calc Platelets bldon 02-08-2022 Platelets (Bld) [#/Vol] 175 10*3/uL 150-450 [facility] Work Phone: Serum or plasma albumin benita urement (mass/volume)on 02-08-2022 Albumin [Mass/Vol] 2.0 g/dL 3.2-5.0 [facility] Work Phone: Serum or plasma albumin/glob ulin mass ratioon 02-08-2022 Albumin/Globulin [Mass ratio] 0.5 {ratio} 0.9-2.4 [facility] Work Phone: Serum or plasma calcium benita urement (mass/volume)on 02-08-2022 Calcium [Mass/Vol] 8.7 mg/dL 8.5-10.1 [facility] Work Phone: Serum or plasma creatinine m easurement (mass/volume)on 02-08-2022 Creatinine [Mass/Vol] 0.63 mg/dL 0.55-1.02 [facility] Work Phone: Comment on above: The validity of the calculated GFR & GFRAA in patients over 70 years has not been determined. Clinical correlation is essential. Serum or plasma urea nitroge n measurement (mass/volume)on 02-08-2022 Urea nitrogen [Mass/Vol] 9 mg/dL 7-18 [facility] Work Phone: Thin prep Papanicolaou smear with manual screeningon 02-08-2022 Thin prep Papanicolaou smear with manual screening 24 U/L 15-37 [facility] Work Phone: Thin prep Papanicolaou smear with manual screening 5 5-15 [facility] Work Phone: Thin prep Papanicolaou smear with manual screening 183 U/L 84-246 [facility] Work Phone: Laboratory - Chemistry and C hemistry - challengeon 02-05-2022 Magnesium [Mass/Vol] 5.4 mg/dL 1.6-2.6 [facility] Work Phone: Comment on above: Critical Result(s) C alled at: 06:16:01 02/05/2022 by: Mirela Tejeda to [facility]. Results read back by same. Basophil percentageon 2021 Basophil percentage 25-50 SEEN /hpf 0-5 [facility] Work Phone: Bilirubin Test strip Ql (U)o n 02-04-2022 Bilirubin Ql (U) Negative Negative [facility] Work Phone: Ketones Test strip Ql (U)on 02-04-2022 Ketones Ql (U) 5 mg/dl Negative [facility] Work Phone: Mucus LM Ql (Urine sed)on Mucus Ql (Urine sed) 0 SEEN /hpf [facility] Work Phone: Nitrite Test strip Ql (U)on 02-04-2022 Nitrite Ql (U) Negative Negative [facility] Work Phone: No Panel Informationon 02-04 Vaginal Amniotic Fluid Detection Negative Negative [facility] Work Phone: Comment on above: Amniotic fluid not p resent indicates No Rupture of FetalMembranes at time of specimen collection. Protein Test strip Ql (U)on 02-04-2022 Protein Ql (U) 100 mg/dl Negative [facility] Work Phone: Serum or plasma uric acid me asurement (mass/volume)on 02-04-2022 Urate [Mass/Vol] 7.5 mg/dL 2.6-6.0 [facility] Work Phone: Comment on above: The drugs N-Acetylcy steine and Metamizole may falsely depress this assay. Squamous epithelial cells de tection in urine sediment by light microscopyon 02-04-2022 Epithelial cells.squamous LM Ql (Urine sed) 50-100 SEEN /hpf 5-10 [facility] Work Phone: Urine blood detectionon 01-19 RBC Ql (U) 10 /ul Negative [facility] Work Phone: RBC Ql (U) 0 SEEN /hpf 0-5 [facility] Work Phone: Urine clarityon 02-04-2022 Clarity (U) Clear Clear [facility] Work Phone: Urine color determinationon 02-04-2022 Color (U) Yellow Yellow [facility] Work Phone: Urine creatinine measurement (mass/volume)on 02-04-2022 Creatinine (U) [Mass/Vol] 150.00 mg/dL NO RANGE EST. [facility] Work Phone: Urine glucose detectionon Glucose Ql (U) Normal mg/dl Normal [facility] Work Phone: Urine leukocyte esterase det ection by dipstickon 02-04-2022 Leukocyte esterase Test strip Ql (U) 500 /ul Negative [facility] Work Phone: Urine pHon 02-04-2022 pH (U) 7.0 [pH] 5.0 - 8.0 [facility] Work Phone: Urine protein measurement (m ass/volume)on 02-04-2022 Protein (U) [Mass/Vol] 135.5 mg/dL 0.0-11.8 [facility] Work Phone: Urine protein/creatinine mas s ratioon 02-04-2022 Protein/Creatinine (U) [Mass ratio] 903 mg/g CRE 0-200 [facility] Work Phone: Urine sediment bacteria coun t by microscopy (number/high power field)on 02-04-2022 Bacteria LM.HPF (Urine sed) [#/Area] 0 /[HPF] None Seen [facility] Work Phone: Urine specific gravity measu rementon 02-04-2022 Specific gravity (U) [Rel density] 1.010 1.002-1.030 [facility] Work Phone: Urobilinogen Auto test strip Ql (U)on 02-04-2022 Urobilinogen Ql (U) Normal mg/dl Normal [facility] Work Phone: Absolute lymphocyte counton 02-01-2022 Lymphocytes Auto (Unsp spec) [#/Vol] 1.11 10*3/uL 0.83-4.51 [facility] Work Phone: Basophil percentageon 2021 Basophils/100 WBC (Bld) 0.4 % 0-1 [facility] Work Phone: [phone] Bilirubin [Mass/Vol] 0.40 mg/dL 0.20-1.00 [facility] Work Phone: Comment on above: For patients on eltr ombopag therapy, use of Dimension [place] TBIL is not recommended. Chloride [Moles/Vol] 107 mmol/L 98-107 [facility] Work Phone: Eosinophils/100 WBC (Bld) 0.4 % 0-5 [facility] Work Phone: Glucose [Mass/Vol] 81 mg/dL 74-106 [facility] Work Phone: Neutrophils (Bld) [#/Vol] 3.1 10*3/uL 2.0-7.7 [facility] Work Phone: Neutrophils/100 WBC (Bld) 67.3 % 47-70 [facility] Work Phone: [phone] Potassium [Moles/Vol] 3.8 mmol/L 3.5-5.1 [facility] Work Phone: Protein [Mass/Vol] 6.1 g/dL 6.4-8.2 [facility] Work Phone: Sodium [Moles/Vol] 139 mmol/L 136-145 [facility] Work Phone: WBC (Bld) [#/Vol] 4.6 10*3/uL 4.4-11.0 [facility] Work Phone: Blood erythrocytes count (nu mber/volume)on 02-01-2022 RBC (Bld) [#/Vol] 3.92 10*6/uL 4.2-5.4 [facility] Work Phone: Blood hemoglobin measurement (mass/volume)on 02-01-2022 Hemoglobin (Bld) [Mass/Vol] 9.8 g/dL 12.0-15.0 [facility] Work Phone: Blood lymphocytes/100 leukoc yteson 02-01-2022 Lymphocytes/100 WBC (Bld) 24.0 % 19-41 [facility] Work Phone: Blood monocytes/100 leukocyt eson 02-01-2022 Monocytes/100 WBC (Bld) 7.3 % 0-10 [facility] Work Phone: Blood platelet mean volumeon 02-01-2022 Platelet mean volume (Bld) [Entitic vol] 12.2 fL 6.2-12.0 [facility] Work Phone: Determination of erythrocyte mean corpuscular volume (MCV)on 02-01-2022 MCV (RBC) [Entitic vol] 78.1 fL 81-99 [facility] Work Phone: Hematocrit Auto (Bld) [Volum e fraction]on 02-01-2022 Hematocrit (Bld) [Volume fraction] 30.6 % 37-47 [facility] Work Phone: Laboratory - Chemistry and C hemistry - challengeon 02-01-2022 ALP [Catalytic activity/Vol] 158 U/L 45-117 [facility] Work Phone: ALT [Catalytic activity/Vol] 35 U/L 13-56 [facility] Work Phone: CO2 [Moles/Vol] 26.0 mmol/L 21.0-32.0 [facility] Work Phone: Globulin (S) [Mass/Vol] 4.1 g/dL 2.2-4.2 [facility] Work Phone: Urea nitrogen/Creatinine [Mass ratio] 8.6 mg/mg 10-20 [facility] Work Phone: Laboratory - Hematology and Cell countson 02-01-2022 Erythrocyte distribution width (RBC) [Entitic vol] 38.8 fL 35.1-43.9 [facility] Work Phone: Erythrocyte distribution width (RBC) [Ratio] 13.9 % 11.6-14.6 [facility] Work Phone: Immature granulocytes/100 WBC (Bld) 0.600 % 0.0-0.9 [facility] Work Phone: Comment on above: IG% - Immature Granu locytes (promyelocytes, myelocytes and metamyelocytes) > 1% indicates that a LEFT SHIFT is Present. MCH (RBC) [Entitic mass] 25.0 pg 27.0-32.0 [facility] Work Phone: Nucleated RBC/100 WBC (Bld) [Ratio] 0.4 % 0-5 [facility] Work Phone: MCHC Auto (RBC) [Mass/Vol]on 02-01-2022 MCHC (RBC) [Mass/Vol] 32.0 g/dL 32-36 [facility] Work Phone: No Panel Informationon 02-01 Estimated GFR (MDRD) Amer 134 mL/min >60 [facility] Work Phone: Comment on above: GFR Calc Estimated GFR (MDRD) Non-Af Amer 111 mL/min >60 [facility] Work Phone: Comment on above: Non- GFR Calc Platelets bldon 02-01-2022 Platelets (Bld) [#/Vol] 157 10*3/uL 150-450 [facility] Work Phone: Serum or plasma albumin benita urement (mass/volume)on 02-01-2022 Albumin [Mass/Vol] 2.0 g/dL 3.2-5.0 [facility] Work Phone: Serum or plasma albumin/glob ulin mass ratioon 02-01-2022 Albumin/Globulin [Mass ratio] 0.5 {ratio} 0.9-2.4 [facility] Work Phone: Serum or plasma calcium benita urement (mass/volume)on 02-01-2022 Calcium [Mass/Vol] 8.4 mg/dL 8.5-10.1 [facility] Work Phone: Serum or plasma creatinine m easurement (mass/volume)on 02-01-2022 Creatinine [Mass/Vol] 0.70 mg/dL 0.55-1.02 [facility] Work Phone: Comment on above: The validity of the calculated GFR & GFRAA in patients over 70 years has not been determined. Clinical correlation is essential. Serum or plasma urea nitroge n measurement (mass/volume)on 02-01-2022 Urea nitrogen [Mass/Vol] 6 mg/dL 7-18 [facility] Work Phone: Thin prep Papanicolaou smear with manual screeningon 02-01-2022 Thin prep Papanicolaou smear with manual screening 35 U/L 15-37 [facility] Work Phone: Thin prep Papanicolaou smear with manual screening 6 5-15 [facility] Work Phone: Thin prep Papanicolaou smear with manual screening 198 U/L 84-246 [facility] Work Phone: Urine creatinine measurement (mass/volume)on 02-01-2022 Creatinine (U) [Mass/Vol] 73.30 mg/dL NO RANGE EST. [facility] Work Phone: Urine protein measurement (m ass/volume)on 02-01-2022 Protein (U) [Mass/Vol] 48.2 mg/dL 0.0-11.8 [facility] Work Phone: Urine protein/creatinine mas s ratioon 02-01-2022 Protein/Creatinine (U) [Mass ratio] 658 mg/g CRE 0-200 [facility] Work Phone: Progress Noteon 01-31-2022 [...] on admission -Given BMZ x2 on 01/28 ([place]) and 01/29 ([facility]) -s/p Procardia for tocolysis - SVE remains 4 cm since admission, last SVE 01/20 -s/p NICU consult Nicolasa Twin Gestation -Most recent growth 01/30 noted A: 2557g 59%, cephalic. 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 Mariah Ansari MD 01/31/2022, 6:06 AM [facility] CARECOORDon 01-30-2022 CARECOORD 21 year old admitted for and transport from [place] to labor with di/di twins at 33/5 weeks. 2 Para 1. Preeclampsia History of delivery, on progesterone. History of depression, mood stable ion Zoloft. Denies needs of food, transportation or housing. Voiced no needs or concerns. Normal [facility] Consulton 01-30-2022 Consult Consult by Neonatology Request by OB: Resident for Dr. Carey Reason for Consult: Prematurity, Twin Gestation Maternal History and current problem: Di/Di twin gestation at 34 weeks. Presented to [place] with labor and pre-eclampsia without severe features. Transferred to [facility] for management. Significant history: ART , [...] from NICU Potential need for transfer to [facility] if needs esclation of care, based on a variety of factors. Handouts given. No further questions. A/P: Patient is a 21 Year old At 34 Weeks 0 Days by Pt. report With labor and pre-eclampsia without severe features 1. Current Management per OB 2. NICU to attend delivery 3. Call NICU if further questions. Stephan Darden, MAGICIAN/ILLUSIONIST-VISUAL MERCHANDISING ASSOCIATE Normal [facility] Nursing Noteon 01-30-2022 Nursing Note Patient sitting up i n chair, stating that she is having vaginal pressure especially when up walking and sitting on toilet, also having lots of Bms today. Has had several times of blood streaked mucous when wiping. Normal [facility] Progress Noteon 01-30-2022 Progress Note Patient feeling some low back pain, possibly some mild contractions every once in a while. Having increased mucous discharge with int vaginal spotting when she wipes. SVE unchanged from last night 4/50/-4. Patient reassured and will try tylenol with lidocaine patch, back pain is most likely from MSK pain. [place] quiet. ASIYA GERMAN, 01/30/2022 8:39 PM Normal [facility] Progress Note Nutrition rescreen completed. Chart reviewed. Patient to be monitored and followed by the diet gastrointestinal technician. Dietitian available upon request. ALCIRA Baez [facility] Progress Note --- Attestation signed by Sarina [...] Cloth 2 % cloth Topical q6h Bunny Ramirez DO 1 each at 01/28/222040 docusate [...] hx of HTN disorders previously -UPC at [place] 0.4, however repeat at [facility] 0.24 -CMP [...] attending. Mariah Ansari MD 01/30/2022, 6:33 AM [facility] US BIOPHYSICAL PROFILE WO NON STRESS TESTINGon 01-30-2022 US BIOPHYSICAL PROFILE WO NON STRESS TESTING - OBSTETRICS REPORT (Signed Final 01/30/2022 11:25 am) - PATIENT INFO: ID #: [id number] : [birth year] (21 yrs)(F) Name: JUANITA PAULINO Visit Date: 01/30/2022 10:23 am - PERFORMED BY: Attending: Sarina Carey MD Performed By: Dorita Kam RDGA Referred By: [facility] Location: [facility] IP Visit Type: Inpatient - Hospital - SERVICE(S) PROVIDED: [place] [id number] [place] [address] BPP w/out NST 83006 BPP w/out NST 67882 - INDICATIONS: Di/ Di Twins Threatened Labor [...] (more content not included)... Normal [facility] OB FOLLOW UP TRANSABDOMIN AL APPROACHon 01-30-2022 OB FOLLOW UP TRANSABDOMINAL APPROACH - OBSTETRICS REPORT (Signed Final 01/30/2022 11:25 am) - PATIENT INFO: ID #: [id number] : [birth year] (21 yrs)(F) Name: JUANITA PAULINO Visit Date: 01/30/2022 10:23 am - PERFORMED BY: Attending: Sarina Carey MD Performed By: Dorita Kam RDMS Referred By: BUNNY RAMIREZ Location: [facility] IP Visit Type: Inpatient - Hospital - SERVICE(S) PROVIDED: [place] [id number] [place] [address] BPP w/out NST 04269 BPP w/out NST 29817 - INDICATIONS: Di/ [place] Threatened Labor [...] Normal appearance (more content not included)... Normal [facility] Progress Noteon 01-29-2022 Progress Note SSE negative for ROM . Still 4cm on SVE. ASIYA GERMAN DO 01/29/2022 9:00 PM Normal [facility] Progress Note --- Attestation signed by [...] the first dose of BMZ. Hypertension at [place], no severe features of preeclampsia at this time. Repeat preeclampsia labs if increasing BP or symptoms concerning for preeclampsia. Plan for growth US in am. I spent 15 minutes in the visit, with more than 50% of the total [id number] time of the visit in counseling/coordination of [...] y.o. female [id number] Threatened Labor -Presented from [place] as a transfer for concern of tPTL after reporting contractions -Made cervical parks at [place] from Closed to 2cm, and was further noted to be 4cm while in [facility] triage -Given BMZ x2 on 01/28 ([place]) and 01/29 ([facility]) -Continue Procarda for 48 hour tocolysis [...] noted >4 hours apart at [place] and [facility] -No hx of HTN disorders previously -UPC at [place] 0.4, however repeat at [facility] 0.24 -CMP and CBC wnl -Asymptomatic -BP overnight normotensive Anemia -Hgb on admission 10.4 -Iron and colace ordered HSV -Recent outbreak 1 week ago and on suppressive valtrex, reports compliance -SEE negative at [place] and [facility] for lesions -Continue Valtrex 500g BID [...] DO 01/30/20 (more content not included)... Normal [facility] No Panel Informationon 01-28 Specimen Comment (Misc) Not Reportable [facility] Work Phone: Progress Noteon 01-28-2022 Progress Note Courtesy visit: Pt's OB hx reviewed. Stopped and saw pt. Pt looked comfortable on . D/w pt expected plan if she goes into labor. S/p BMZ x1. Lukas Mcneil DO. Normal [facility] Serum or plasma ferritin susie surement (mass/volume)on 01-28-2022 Ferritin [Mass/Vol] 7 ng/mL 8-252 [facility] Work Phone: Thin prep Papanicolaou smear with manual screeningon 01-28-2022 Thin prep Papanicolaou smear with manual screening Negative Negative [facility] Work Phone: Absolute lymphocyte counton 01-27-2022 Lymphocytes Auto (Unsp spec) [#/Vol] 1.35 10*3/uL 0.83-4.51 [facility] Work Phone: Basophil percentageon 2021 Basophils/100 WBC (Bld) 0.7 % 0-1 [facility] Work Phone: Bilirubin [Mass/Vol] 0.40 mg/dL 0.20-1.00 [facility] Work Phone: Comment on above: For patients on eltr ombopag therapy, use of Dimension [place] TBIL is not recommended. Chloride [Moles/Vol] 109 mmol/L 98-107 [facility] Work Phone: [phone] Eosinophils/100 WBC (Bld) 0.5 % 0-5 [facility] Work Phone: Glucose [Mass/Vol] 79 mg/dL 74-106 [facility] Work Phone: Neutrophils (Bld) [#/Vol] 2.6 10*3/uL 2.0-7.7 [facility] Work Phone: Neutrophils/100 WBC (Bld) 59.5 % 47-70 [facility] Work Phone: Potassium [Moles/Vol] 3.7 mmol/L 3.5-5.1 [facility] Work Phone: Protein [Mass/Vol] 6.3 g/dL 6.4-8.2 [facility] Work Phone: Sodium [Moles/Vol] 141 mmol/L 136-145 [facility] Work Phone: [phone] WBC (Bld) [#/Vol] 4.3 10*3/uL 4.4-11.0 [facility] Work Phone: Basophil percentage 0-5 SEEN /hpf 0-5 [facility] Work Phone: Bilirubin Test strip Ql (U)o n 01-27-2022 Bilirubin Ql (U) Negative Negative [facility] Work Phone: Blood erythrocytes count (nu mber/volume)on 01-27-2022 RBC (Bld) [#/Vol] 4.08 10*6/uL 4.2-5.4 [facility] Work Phone: Blood hemoglobin measurement (mass/volume)on 01-27-2022 Hemoglobin (Bld) [Mass/Vol] 9.8 g/dL 12.0-15.0 [facility] Work Phone: Blood lymphocytes/100 leukoc yteson 01-27-2022 Lymphocytes/100 WBC (Bld) 31.4 % 19-41 [facility] Work Phone: Blood monocytes/100 leukocyt eson 01-27-2022 Monocytes/100 WBC (Bld) 7.2 % 0-10 [facility] Work Phone: Blood platelet mean volumeon 01-27-2022 Platelet mean volume (Bld) [Entitic vol] 12.9 fL 6.2-12.0 [facility] Work Phone: Determination of erythrocyte mean corpuscular volume (MCV)on 01-27-2022 MCV (RBC) [Entitic vol] 77.0 fL 81-99 [facility] Work Phone: Hematocrit Auto (Bld) [Volum e fraction]on 01-27-2022 Hematocrit (Bld) [Volume fraction] 31.4 % 37-47 [facility] Work Phone: Ketones Test strip Ql (U)on 01-27-2022 Ketones Ql (U) 5 mg/dl Negative [facility] Work Phone: Laboratory - Chemistry and C hemistry - challengeon 01-27-2022 ALP [Catalytic activity/Vol] 155 U/L 45-117 [facility] Work Phone: ALT [Catalytic activity/Vol] 20 U/L 13-56 [facility] Work Phone: CO2 [Moles/Vol] 24.0 mmol/L 21.0-32.0 [facility] Work Phone: Globulin (S) [Mass/Vol] 4.1 g/dL 2.2-4.2 [facility] Work Phone: Urea nitrogen/Creatinine [Mass ratio] 9.5 mg/mg 10-20 [facility] Work Phone: Laboratory - Hematology and Cell countson 01-27-2022 Erythrocyte distribution width (RBC) [Entitic vol] 38.0 fL 35.1-43.9 [facility] Work Phone: Erythrocyte distribution width (RBC) [Ratio] 13.5 % 11.6-14.6 [facility] Work Phone: Immature granulocytes/100 WBC (Bld) 0.700 % 0.0-0.9 [facility] Work Phone: Comment on above: IG% - Immature Granu locytes (promyelocytes, myelocytes and metamyelocytes) > 1% indicates that a LEFT SHIFT is Present. MCH (RBC) [Entitic mass] 24.0 pg 27.0-32.0 [facility] Work Phone: Nucleated RBC/100 WBC (Bld) [Ratio] 0 % 0-5 [facility] Work Phone: MCHC Auto (RBC) [Mass/Vol]on 01-27-2022 MCHC (RBC) [Mass/Vol] 31.2 g/dL 32-36 [facility] Work Phone: Mucus LM Ql (Urine sed)on Mucus Ql (Urine sed) 0 SEEN /hpf [facility] Work Phone: Nitrite Test strip Ql (U)on 01-27-2022 Nitrite Ql (U) Negative Negative [facility] Work Phone: No Panel Informationon 01-27 Estimated Creatinine Clearance Calc 90.52 ml/min [facility] Work Phone: Estimated GFR (MDRD) Amer 94 mL/min >60 [facility] Work Phone: Comment on above: GFR Calc Estimated GFR (MDRD) Non-Af Amer 78 mL/min >60 [facility] Work Phone: Comment on above: Non- GFR Calc Platelets bldon 01-27-2022 Platelets (Bld) [#/Vol] 200 10*3/uL 150-450 [facility] Work Phone: Protein Test strip Ql (U)on 01-27-2022 Protein Ql (U) 100 mg/dl Negative [facility] Work Phone: Serum or plasma albumin benita urement (mass/volume)on 01-27-2022 Albumin [Mass/Vol] 2.2 g/dL 3.2-5.0 [facility] Work Phone: Serum or plasma albumin/glob ulin mass ratioon 01-27-2022 Albumin/Globulin [Mass ratio] 0.5 {ratio} 0.9-2.4 [facility] Work Phone: Serum or plasma calcium benita urement (mass/volume)on 01-27-2022 Calcium [Mass/Vol] 9.3 mg/dL 8.5-10.1 [facility] Work Phone: Serum or plasma creatinine m easurement (mass/volume)on 01-27-2022 Creatinine [Mass/Vol] 0.94 mg/dL 0.55-1.02 [facility] Work Phone: Comment on above: The validity of the calculated GFR & GFRAA in patients over 70 years has not been determined. Clinical correlation is essential. Serum or plasma urea nitroge n measurement (mass/volume)on 01-27-2022 Urea nitrogen [Mass/Vol] 9 mg/dL 7-18 [facility] Work Phone: Squamous epithelial cells de tection in urine sediment by light microscopyon 01-27-2022 Epithelial cells.squamous LM Ql (Urine sed) 5-10 SEEN /hpf 5-10 [facility] Work Phone: Thin prep Papanicolaou smear with manual screeningon 01-27-2022 Thin prep Papanicolaou smear with manual screening 28 U/L 15-37 [facility] Work Phone: Thin prep Papanicolaou smear with manual screening 8 5-15 [facility] Work Phone: Thin prep Papanicolaou smear with manual screening 155 U/L 84-246 [facility] Work Phone: Urine blood detectionon RBC Ql (U) 10 /ul Negative [facility] Work Phone: RBC Ql (U) 0-5 SEEN /hpf 0-5 [facility] Work Phone: Urine clarityon 01-27-2022 Clarity (U) Clear Clear [facility] Work Phone: Urine color determinationon 01-27-2022 Color (U) Yellow Yellow [facility] Work Phone: Urine creatinine measurement (mass/volume)on 01-27-2022 Creatinine (U) [Mass/Vol] 332.00 mg/dL NO RANGE EST. [facility] Work Phone: Urine glucose detectionon Glucose Ql (U) Normal mg/dl Normal [facility] Work Phone: Urine leukocyte esterase det ection by dipstickon 01-27-2022 Leukocyte esterase Test strip Ql (U) 500 /ul Negative [facility] Work Phone: Urine pHon 01-27-2022 pH (U) 6.0 [pH] 5.0 - 8.0 [facility] Work Phone: Urine protein measurement (m ass/volume)on 01-27-2022 Protein (U) [Mass/Vol] 140.6 mg/dL 0.0-11.8 [facility] Work Phone: Urine protein/creatinine mas s ratioon 01-27-2022 Protein/Creatinine (U) [Mass ratio] 423 mg/g CRE 0-200 [facility] Work Phone: Urine sediment bacteria coun t by microscopy (number/high power field)on 01-27-2022 Bacteria LM.HPF (Urine sed) [#/Area] 0 /[HPF] None Seen [facility] Work Phone: Urine specific gravity measu rementon 01-27-2022 Specific gravity (U) [Rel density] 1.020 1.002-1.030 [facility] Work Phone: Urobilinogen Auto test strip Ql (U)on 01-27-2022 Urobilinogen Ql (U) 1 mg/dl [facility] Work [facility]: Absolute lymphocyte counton 01-24-2022 Lymphocytes Auto (Unsp spec) [#/Vol] 1.07 10*3/uL 0.83-4.51 [facility] Work Phone: Basophil percentageon 2021 Basophils/100 WBC (Bld) 0.5 % 0-1 [facility] Work Phone: [phone] Bilirubin [Mass/Vol] 0.50 mg/dL 0.20-1.00 [facility] Work Phone: Comment on above: For patients on eltr ombopag therapy, use of Dimension [place] TBIL is not recommended. Chloride [Moles/Vol] 107 mmol/L 98-107 [facility] Work Phone: Eosinophils/100 WBC (Bld) 0.5 % 0-5 [facility] Work Phone: [phone] Glucose [Mass/Vol] 84 mg/dL 74-106 [facility] Work Phone: [phone] Neutrophils (Bld) [#/Vol] 2.6 10*3/uL 2.0-7.7 [facility] Work Phone: Neutrophils/100 WBC (Bld) 65.3 % 47-70 [facility] Work Phone: Potassium [Moles/Vol] 3.8 mmol/L 3.5-5.1 [facility] Work Phone: Protein [Mass/Vol] 6.6 g/dL 6.4-8.2 [facility] Work Phone: [phone] Sodium [Moles/Vol] 140 mmol/L 136-145 [facility] Work Phone: WBC (Bld) [#/Vol] 4.0 10*3/uL 4.4-11.0 [facility] Work Phone: Blood erythrocytes count (nu mber/volume)on 01-24-2022 RBC (Bld) [#/Vol] 4.31 10*6/uL 4.2-5.4 [facility] Work Phone: Blood hemoglobin measurement (mass/volume)on 01-24-2022 Hemoglobin (Bld) [Mass/Vol] 10.5 g/dL 12.0-15.0 [facility] Work Phone: Blood lymphocytes/100 leukoc yteson 01-24-2022 Lymphocytes/100 WBC (Bld) 26.6 % 19-41 [facility] Work Phone: Blood monocytes/100 leukocyt eson 01-24-2022 Monocytes/100 WBC (Bld) 6.9 % 0-10 [facility] Work Phone: Blood platelet mean volumeon 01-24-2022 Platelet mean volume (Bld) [Entitic vol] 11.4 fL 6.2-12.0 [facility] Work Phone: Determination of erythrocyte mean corpuscular volume (MCV)on 01-24-2022 MCV (RBC) [Entitic vol] 77.0 fL 81-99 [facility] Work Phone: Hematocrit Auto (Bld) [Volum e fraction]on 01-24-2022 Hematocrit (Bld) [Volume fraction] 33.2 % 37-47 [facility] Work Phone: Laboratory - Chemistry and C hemistry - challengeon 01-24-2022 ALP [Catalytic activity/Vol] 155 U/L 45-117 [facility] Work Phone: ALT [Catalytic activity/Vol] 17 U/L 13-56 [facility] Work Phone: CO2 [Moles/Vol] 24.0 mmol/L 21.0-32.0 [facility] Work Phone: Globulin (S) [Mass/Vol] 4.4 g/dL 2.2-4.2 [facility] Work Phone: Urea nitrogen/Creatinine [Mass ratio] 8.9 mg/mg 10-20 [facility] Work Phone: Laboratory - Hematology and Cell countson 01-24-2022 Erythrocyte distribution width (RBC) [Entitic vol] 38.4 fL 35.1-43.9 [facility] Work Phone: Erythrocyte distribution width (RBC) [Ratio] 13.7 % 11.6-14.6 [facility] Work Phone: Immature granulocytes/100 WBC (Bld) 0.200 % 0.0-0.9 [facility] Work Phone: Comment on above: IG% - Immature Granu locytes (promyelocytes, myelocytes and metamyelocytes) > 1% indicates that a LEFT SHIFT is Present. MCH (RBC) [Entitic mass] 24.4 pg 27.0-32.0 [facility] Work Phone: Nucleated RBC/100 WBC (Bld) [Ratio] 0 % 0-5 [facility] Work Phone: MCHC Auto (RBC) [Mass/Vol]on 01-24-2022 MCHC (RBC) [Mass/Vol] 31.6 g/dL 32-36 [facility] Work Phone: No Panel Informationon 01-24 Estimated GFR (MDRD) Amer 116 mL/min >60 [facility] Work Phone: Comment on above: GFR Calc Estimated GFR (MDRD) Non-Af Amer 96 mL/min >60 [facility] Work Phone: Comment on above: Non- GFR Calc Platelets bldon 01-24-2022 Platelets (Bld) [#/Vol] 191 10*3/uL 150-450 [facility] Work Phone: Serum or plasma albumin benita urement (mass/volume)on 01-24-2022 Albumin [Mass/Vol] 2.2 g/dL 3.2-5.0 [facility] Work Phone: Serum or plasma albumin/glob ulin mass ratioon 01-24-2022 Albumin/Globulin [Mass ratio] 0.5 {ratio} 0.9-2.4 [facility] Work Phone: Serum or plasma calcium benita urement (mass/volume)on 01-24-2022 Calcium [Mass/Vol] 8.8 mg/dL 8.5-10.1 [facility] Work Phone: Serum or plasma creatinine m easurement (mass/volume)on 01-24-2022 Creatinine [Mass/Vol] 0.79 mg/dL 0.55-1.02 [facility] Work Phone: Comment on above: The validity of the calculated GFR & GFRAA in patients over 70 years has not been determined. Clinical correlation is essential. Serum or plasma urea nitroge n measurement (mass/volume)on 01-24-2022 Urea nitrogen [Mass/Vol] 7 mg/dL 7-18 [facility] Work Phone: Thin prep Papanicolaou smear with manual screeningon 01-24-2022 Thin prep Papanicolaou smear with manual screening 25 U/L 15-37 [facility] Work Phone: Thin prep Papanicolaou smear with manual screening 9 5-15 [facility] Work Phone: Thin prep Papanicolaou smear with manual screening 180 U/L 84-246 [facility] Work Phone: Urine creatinine measurement (mass/volume)on 01-24-2022 Creatinine (U) [Mass/Vol] 381.00 mg/dL NO RANGE EST. [facility] Work Phone: Urine protein measurement (m ass/volume)on 01-24-2022 Protein (U) [Mass/Vol] 101.7 mg/dL 0.0-11.8 [facility] Work Phone: Urine protein/creatinine mas s ratioon 01-24-2022 Protein/Creatinine (U) [Mass ratio] 267 mg/g CRE 0-200 [facility] Work Phone: Absolute lymphocyte counton 01-17-2022 Lymphocytes Auto (Unsp spec) [#/Vol] 1.11 10*3/uL 0.83-4.51 [facility] Work Phone: Basophil percentageon 2021 Basophils/100 WBC (Bld) 0.4 % 0-1 [facility] Work Phone: [phone] Bilirubin [Mass/Vol] 0.60 mg/dL 0.20-1.00 [facility] Work Phone: Comment on above: For patients on eltr ombopag therapy, use of Dimension [place] TBIL is not recommended. Chloride [Moles/Vol] 103 mmol/L 98-107 [facility] Work Phone: Eosinophils/100 WBC (Bld) 0.4 % 0-5 [facility] Work Phone: Glucose [Mass/Vol] 83 mg/dL 74-106 [facility] Work Phone: Neutrophils (Bld) [#/Vol] 3.1 10*3/uL 2.0-7.7 [facility] Work Phone: Neutrophils/100 WBC (Bld) 67.7 % 47-70 [facility] Work Phone: Potassium [Moles/Vol] 3.7 mmol/L 3.5-5.1 [facility] Work Phone: Protein [Mass/Vol] 6.6 g/dL 6.4-8.2 [facility] Work Phone: Sodium [Moles/Vol] 137 mmol/L 136-145 [facility] Work Phone: WBC (Bld) [#/Vol] 4.6 10*3/uL 4.4-11.0 [facility] Work Phone: [phone] Blood erythrocytes count (nu mber/volume)on 01-17-2022 RBC (Bld) [#/Vol] 4.29 10*6/uL 4.2-5.4 [facility] Work Phone: Blood hemoglobin measurement (mass/volume)on 01-17-2022 Hemoglobin (Bld) [Mass/Vol] 10.7 g/dL 12.0-15.0 [facility] Work Phone: Blood lymphocytes/100 leukoc yteson 01-17-2022 Lymphocytes/100 WBC (Bld) 24.3 % 19-41 [facility] Work Phone: Blood monocytes/100 leukocyt eson 01-17-2022 Monocytes/100 WBC (Bld) 6.8 % 0-10 [facility] Work Phone: Blood platelet mean volumeon 01-17-2022 Platelet mean volume (Bld) [Entitic vol] 11.4 fL 6.2-12.0 [facility] Work Phone: Determination of erythrocyte mean corpuscular volume (MCV)on 01-17-2022 MCV (RBC) [Entitic vol] 77.6 fL 81-99 [facility] Work Phone: Hematocrit Auto (Bld) [Volum e fraction]on 01-17-2022 Hematocrit (Bld) [Volume fraction] 33.3 % 37-47 [facility] Work Phone: Laboratory - Chemistry and C hemistry - challengeon 01-17-2022 ALP [Catalytic activity/Vol] 138 U/L 45-117 [facility] Work Phone: ALT [Catalytic activity/Vol] 13 U/L 13-56 [facility] Work Phone: CO2 [Moles/Vol] 24.0 mmol/L 21.0-32.0 [facility] Work Phone: Globulin (S) [Mass/Vol] 4.4 g/dL 2.2-4.2 [facility] Work Phone: Urea nitrogen/Creatinine [Mass ratio] 8.2 mg/mg 10-20 [facility] Work Phone: Laboratory - Hematology and Cell countson 01-17-2022 Erythrocyte distribution width (RBC) [Entitic vol] 39.5 fL 35.1-43.9 [facility] Work Phone: Erythrocyte distribution width (RBC) [Ratio] 14.2 % 11.6-14.6 [facility] Work Phone: Immature granulocytes/100 WBC (Bld) 0.400 % 0.0-0.9 [facility] Work Phone: Comment on above: IG% - Immature Granu locytes (promyelocytes, myelocytes and metamyelocytes) > 1% indicates that a LEFT SHIFT is Present. MCH (RBC) [Entitic mass] 24.9 pg 27.0-32.0 [facility] Work Phone: Nucleated RBC/100 WBC (Bld) [Ratio] 0 % 0-5 [facility] Work Phone: MCHC Auto (RBC) [Mass/Vol]on 01-17-2022 MCHC (RBC) [Mass/Vol] 32.1 g/dL 32-36 [facility] Work Phone: No Panel Informationon 01-17 Estimated Creatinine Clearance Calc 114.98 ml/min [facility] Work Phone: Estimated GFR (MDRD) Amer 126 mL/min >60 [facility] Work Phone: Comment on above: GFR Calc Estimated GFR (MDRD) Non-Af Amer 104 mL/min >60 [facility] Work Phone: Comment on above: Non- GFR Calc Platelets bldon 01-17-2022 Platelets (Bld) [#/Vol] 207 10*3/uL 150-450 [facility] Work Phone: Serum or plasma albumin benita urement (mass/volume)on 01-17-2022 Albumin [Mass/Vol] 2.2 g/dL 3.2-5.0 [facility] Work Phone: Serum or plasma albumin/glob ulin mass ratioon 01-17-2022 Albumin/Globulin [Mass ratio] 0.5 {ratio} 0.9-2.4 [facility] Work Phone: Serum or plasma calcium benita urement (mass/volume)on 01-17-2022 Calcium [Mass/Vol] 8.5 mg/dL 8.5-10.1 [facility] Work Phone: Serum or plasma creatinine m easurement (mass/volume)on 01-17-2022 Creatinine [Mass/Vol] 0.74 mg/dL 0.55-1.02 [facility] Work Phone: Comment on above: The validity of the calculated GFR & GFRAA in patients over 70 years has not been determined. Clinical correlation is essential. Serum or plasma urea nitroge n measurement (mass/volume)on 01-17-2022 Urea nitrogen [Mass/Vol] 6 mg/dL 7-18 [facility] Work Phone: Thin prep Papanicolaou smear with manual screeningon 01-17-2022 Thin prep Papanicolaou smear with manual screening 20 U/L 15-37 [facility] Work Phone: Thin prep Papanicolaou smear with manual screening 10 5-15 [facility] Work Phone: Thin prep Papanicolaou smear with manual screening 170 U/L 84-246 [facility] Work Phone: Urine creatinine measurement (mass/volume)on 01-17-2022 Creatinine (U) [Mass/Vol] 284.00 mg/dL NO RANGE EST. [facility] Work Phone: Urine protein measurement (m ass/volume)on 01-17-2022 Protein (U) [Mass/Vol] 67.9 mg/dL 0.0-11.8 [facility] Work Phone: Urine protein/creatinine mas s ratioon 01-17-2022 Protein/Creatinine (U) [Mass ratio] 239 mg/g CRE 0-200 [facility] Work Phone: Quantitative serum or plasma 3 hour gestational glucose tolerance panelon 12-02-2021 Glucose tolerance 3 hours gestational panel See comment [facility] Work Phone: Comment on above: [...] Auto (Unsp spec) [#/Vol] 1.13 10*3/uL 0.83-4.51 [facility] Work Phone: Basophil percentageon 2021 Basophils/100 WBC (Bld) 0.2 % 0-1 [facility] Work Phone: Eosinophils/100 WBC (Bld) 0.9 % 0-5 [facility] Work Phone: Neutrophils (Bld) [#/Vol] 4.2 10*3/uL 2.0-7.7 [facility] Work Phone: Neutrophils/100 WBC (Bld) 72.7 % 47-70 [facility] Work Phone: WBC (Bld) [#/Vol] 5.7 10*3/uL 4.4-11.0 [facility] Work Phone: Blood erythrocytes count (nu mber/volume)on 11-28-2021 RBC (Bld) [#/Vol] 4.16 10*6/uL 4.2-5.4 [facility] Work Phone: Blood hemoglobin measurement (mass/volume)on 11-28-2021 Hemoglobin (Bld) [Mass/Vol] 10.6 g/dL 12.0-15.0 [facility] Work Phone: Blood lymphocytes/100 leukoc yteson 11-28-2021 Lymphocytes/100 WBC (Bld) 19.7 % 19-41 [facility] Work Phone: Blood monocytes/100 leukocyt eson 11-28-2021 Monocytes/100 WBC (Bld) 6.3 % 0-10 [facility] Work Phone: Blood platelet mean volumeon 11-28-2021 Platelet mean volume (Bld) [Entitic vol] 12.0 fL 6.2-12.0 [facility] Work Phone: Determination of erythrocyte mean corpuscular volume (MCV)on 11-28-2021 MCV (RBC) [Entitic vol] 80.8 fL 81-99 [facility] Work Phone: Gestational diabetes screen 1-hour screen with 50g oral glucose loadon 11-28-2021 Glucose 1 Hr post 50 g glucose PO [Mass/Vol] 140 mg/dL 70-140 [facility] Work Phone: Hematocrit Auto (Bld) [Volum e fraction]on 11-28-2021 Hematocrit (Bld) [Volume fraction] 33.6 % 37-47 [facility] Work Phone: Laboratory - Hematology and Cell countson 11-28-2021 Erythrocyte distribution width (RBC) [Entitic vol] 41.0 fL 35.1-43.9 [facility] Work Phone: Erythrocyte distribution width (RBC) [Ratio] 14.1 % 11.6-14.6 [facility] Work Phone: Immature granulocytes/100 WBC (Bld) 0.200 % 0.0-0.9 [facility] Work Phone: Comment on above: IG% - Immature Granu locytes (promyelocytes, myelocytes and metamyelocytes) > 1% indicates that a LEFT SHIFT is Present. MCH (RBC) [Entitic mass] 25.5 pg 27.0-32.0 [facility] Work Phone: Nucleated RBC/100 WBC (Bld) [Ratio] 0 % 0-5 [facility] Work Phone: MCHC Auto (RBC) [Mass/Vol]on 11-28-2021 MCHC (RBC) [Mass/Vol] 31.5 g/dL 32-36 [facility] Work Phone: Platelets bldon 11-28-2021 Platelets (Bld) [#/Vol] 214 10*3/uL 150-450 [facility] Work Phone: Bilirubin Test strip Ql (U)o n 11-26-2021 Bilirubin Ql (U) Negative Negative [facility] Work Phone: Ketones Test strip Ql (U)on 11-26-2021 Ketones Ql (U) 150 mg/dl Negative [facility] Work Phone: Comment on above: CRITICAL VALUE VERIF IED. CALLED TO KALI BATRES RN (WP)11/26/21 1836 Gagandeep Alcantar.RESULTS READ BACK BY SAME . CRITICAL VALUE *H Nitrite Test strip Ql (U)on 11-26-2021 Nitrite Ql (U) Negative Negative [facility] Work Phone: Protein Test strip Ql (U)on 11-26-2021 Protein Ql (U) 15 mg/dl Negative [facility] Work Phone: Urine blood detectionon RBC Ql (U) 50 /ul Negative [facility] Work Phone: Urine clarityon 11-26-2021 Clarity (U) Cloudy Clear [facility] Work Phone: Urine color determinationon 11-26-2021 Color (U) Yellow Yellow [facility] Work Phone: Urine glucose detectionon Glucose Ql (U) Normal mg/dl Normal [facility] Work Phone: Urine leukocyte esterase det ection by dipstickon 11-26-2021 Leukocyte esterase Test strip Ql (U) 500 /ul Negative [facility] Work Phone: Urine pHon 11-26-2021 pH (U) 6.5 [pH] 5.0 - 8.0 [facility] Work Phone: Urine specific gravity measu rementon 11-26-2021 Specific gravity (U) [Rel density] 1.015 1.002-1.030 [facility] Work Phone: Urobilinogen Auto test strip Ql (U)on 11-26-2021 Urobilinogen Ql (U) 1 mg/dl Normal [facility] Work Phone: Gestational diabetes screen 1-hour screen with 50g oral glucose loadon 09-13-2021 Glucose 1 Hr post 50 g glucose PO [Mass/Vol] 102 mg/dL 70-140 [facility] Work Phone: Absolute lymphocyte counton 08-23-2021 Lymphocytes Auto (Unsp spec) [#/Vol] 1.47 10*3/uL 0.83-4.51 [facility] Work Phone: Basophil percentageon 2021 Basophils/100 WBC (Bld) 0.2 % 0-1 [facility] Work Phone: Eosinophils/100 WBC (Bld) 0.9 % 0-5 [facility] Work Phone: Neutrophils (Bld) [#/Vol] 4.4 10*3/uL 2.0-7.7 [facility] Work Phone: [phone] Neutrophils/100 WBC (Bld) 69.4 % 47-70 [facility] Work Phone: [phone] WBC (Bld) [#/Vol] 6.3 10*3/uL 4.4-11.0 [facility] Work Phone: Blood erythrocytes count (nu mber/volume)on 08-23-2021 RBC (Bld) [#/Vol] 4.81 10*6/uL 4.2-5.4 [facility] Work Phone: Blood hemoglobin measurement (mass/volume)on 08-23-2021 Hemoglobin (Bld) [Mass/Vol] 12.7 g/dL 12.0-15.0 [facility] Work Phone: Blood lymphocytes/100 leukoc yteson 08-23-2021 Lymphocytes/100 WBC (Bld) 23.2 % 19-41 [facility] Work Phone: Blood monocytes/100 leukocyt eson 08-23-2021 Monocytes/100 WBC (Bld) 5.8 % 0-10 [facility] Work Phone: Blood platelet mean volumeon 08-23-2021 Platelet mean volume (Bld) [Entitic vol] 12.5 fL 6.2-12.0 [facility] Work Phone: Chlamydia trachomatis rRNA d etection by probe and target amplification methodon 08-23-2021 C. trachomatis rRNA LIANA+probe Ql (Unsp spec) Negative Negative [facility] Work Phone: Determination of erythrocyte mean corpuscular volume (MCV)on 08-23-2021 MCV (RBC) [Entitic vol] 81.5 fL 81-99 [facility] Work Phone: HIV 1 and HIV-2 antibody ass ay with HIV-1 p24 antigen detectionon 08-23-2021 HIV 1+2 Ab+HIV1 p24 Ag IA Ql Non-Reactive Nonreactive [facility] Work Phone: Hematocrit Auto (Bld) [Volum e fraction]on 08-23-2021 Hematocrit (Bld) [Volume fraction] 39.2 % 37-47 [facility] Work Phone: Laboratory - Hematology and Cell countson 08-23-2021 Erythrocyte distribution width (RBC) [Entitic vol] 39.9 fL 35.1-43.9 [facility] Work Phone: Erythrocyte distribution width (RBC) [Ratio] 13.7 % 11.6-14.6 [facility] Work Phone: Immature granulocytes/100 WBC (Bld) 0.500 % 0.0-0.9 [facility] Work Phone: Comment on above: IG% - Immature Granu locytes (promyelocytes, myelocytes and metamyelocytes) > 1% indicates that a LEFT SHIFT is Present. MCH (RBC) [Entitic mass] 26.4 pg 27.0-32.0 [facility] Work Phone: Nucleated RBC/100 WBC (Bld) [Ratio] 0 % 0-5 [facility] Work Phone: Laboratory - Microbiology an d Antimicrobial susceptibilityon 08-23-2021 N. gonorrhoeae DNA LIANA+probe Ql (Unsp spec) Negative Negative [facility] Work Phone: Comment on above: Performed at: =G - L [address] [id number] Director: Theresa Gomez MD, Phone: [phone] MCHC Auto (RBC) [Mass/Vol]on 08-23-2021 MCHC (RBC) [Mass/Vol] 32.4 g/dL 32-36 [facility] Work Phone: No Panel Informationon 08-23 Hepatitis B Surface Antigen Non-Reactive Nonreactive [facility] Work Phone: Hepatitis C Antibody Non-Reactive Nonreactive [facility] Work Phone: Comment on above: Non Reactive: < 0.8 Equivocal: >/= 0.8 to < 1.0 Reactive: >/= 1.0The CDC recommends that a reactive/equivocal HCV antibody result be followed up by the HCV Nucleic Acid Amplificationtest (135696) Miscellaneous Test See comment [facility] Work Phone: Comment on above: Sent directly to [facility] per ordering physician. Rubella IgG Antibody Reactive Nonreactive [facility] Work Phone: Comment on above: Antibody Results Int erpretation of Immune Status Non Reactive Presumed Non-Immune Equivocal Equivocal Reactive Presumed Immune Platelets bldon 08-23-2021 Platelets (Bld) [#/Vol] 247 10*3/uL 150-450 [facility] Work Phone: Serum Treponema species anti body detectionon 08-23-2021 Treponema sp Ab Ql (S) Non-Reactive [facility] Work Phone: Serum or plasma choriogonado tropin detectionon 07-02-2021 HCG ( test) Ql 79 mIU/mL <4 [facility] Work Phone: Comment on above: hCG levels with Gest ational AgeGestational Age hCG mIU/mL (IU/L)0.2 - 1 week 5 - 501-2 weeks 50 - 5002-3 weeks 100 - 66164-4 weeks 500 - 554536-4 weeks 1000 - 007457-1 weeks 11190 - 100,0006-8 weeks 54001 - 200,0002-3 months 72687 - 100,000 Serum or plasma choriogonado tropin detectionon 06-30-2021 HCG ( test) Ql 33 mIU/mL <4 [facility] Work Phone: Comment on above: hCG levels with Gest ational AgeGestational Age hCG mIU/mL (IU/L)0.2 - 1 week 5 - 501-2 weeks 50 - 5002-3 weeks 100 - 88346-3 weeks 500 - 471454-3 weeks 1000 - 116682-9 weeks 77938 - 100,0006-8 weeks 57258 - 200,0002-3 months 91668 - 100,000 Serum or plasma progesterone measurement (mass/volume)on 06-28-2021 Progesterone [Mass/Vol] 17.58 ng/mL See Comment [facility] Work Phone: Comment on above: [...] 05-30-2021 Progesterone [Mass/Vol] 11.73 ng/mL See Comment [facility] Work Phone: Comment on above: Progesterone Referen ce Table: UNITS Female: Follicular 0.15 - 1.40 ng/mL Luteal 3.34 - 25.56 ng/mL Mid-luteal 4.44 - 28.03 ng/mL Postmenopausal 0.0 - 0.73 ng/mL : 1st Trimester 11.22 - 90.00 ng/mL 2nd Trimester 25.55 - 89.40 ng/mL 3rd Trimester 48.40 -422.50 ng/mL Absolute lymphocyte counton 02-22-2021 Lymphocytes Auto (Unsp spec) [#/Vol] 1.70 10*3/uL 0.83-4.51 [facility] Work Phone: Basophil percentageon 2021 Basophils/100 WBC (Bld) 0.6 % 0-1 [facility] Work Phone: Chloride [Moles/Vol] 101 mmol/L 98-107 [facility] Work Phone: Eosinophils/100 WBC (Bld) 2.4 % 0-5 [facility] Work Phone: Glucose [Mass/Vol] 95 mg/dL 74-106 [facility] Work Phone: Comment on above: Please note revised GLUCOSE reference range effective 2017. Neutrophils (Bld) [#/Vol] 4.3 10*3/uL 2.0-7.7 [facility] Work Phone: [phone] Neutrophils/100 WBC (Bld) 65.0 % 47-70 [facility] Work Phone: Potassium [Moles/Vol] 3.8 mmol/L 3.5-5.1 [facility] Work Phone: Sodium [Moles/Vol] 140 mmol/L 136-145 [facility] Work Phone: WBC (Bld) [#/Vol] 6.6 10*3/uL 4.4-11.0 [facility] Work Phone: Blood erythrocytes count (nu mber/volume)on 02-22-2021 RBC (Bld) [#/Vol] 5.59 10*6/uL 4.2-5.4 [facility]: Blood hemoglobin measurement (mass/volume)on 02-22-2021 Hemoglobin (Bld) [Mass/Vol] 13.9 g/dL 12.0-15.0 [facility] Work Phone: Blood lymphocytes/100 leukoc yteson 02-22-2021 Lymphocytes/100 WBC (Bld) 25.8 % 19-41 [facility] Work Phone: Blood monocytes/100 leukocyt eson 02-22-2021 Monocytes/100 WBC (Bld) 5.9 % 0-10 [facility] Work Phone: Blood platelet mean volumeon 02-22-2021 Platelet mean volume (Bld) [Entitic vol] 12.1 fL 6.2-12.0 [facility] Work Phone: Determination of erythrocyte mean corpuscular volume (MCV)on 02-22-2021 MCV (RBC) [Entitic vol] 79.8 fL 81-99 [facility] Work Phone: Hematocrit Auto (Bld) [Volum e fraction]on 02-22-2021 Hematocrit (Bld) [Volume fraction] 44.6 % 37-47 [facility] Work Phone: Laboratory - Chemistry and C hemistry - challengeon 02-22-2021 CO2 [Moles/Vol] 30.0 mmol/L 21.0-32.0 [facility] Work Phone: Urea nitrogen/Creatinine [Mass ratio] 14.3 mg/mg 10-20 [facility] Work Phone: Laboratory - Hematology and Cell countson 02-22-2021 Erythrocyte distribution width (RBC) [Entitic vol] 40.1 fL 35.1-43.9 [facility] Work Phone: [phone] Erythrocyte distribution width (RBC) [Ratio] 13.9 % 11.6-14.6 [facility] Work Phone: Immature granulocytes/100 WBC (Bld) 0.300 % 0.0-0.9 [facility] Work Phone: Comment on above: IG% - Immature Granu locytes (promyelocytes, myelocytes and metamyelocytes) > 1% indicates that a LEFT SHIFT is Present. MCH (RBC) [Entitic mass] 24.9 pg 27.0-32.0 [facility] Work Phone: Nucleated RBC/100 WBC (Bld) [Ratio] 0 % 0-5 [facility] Work Phone: Laboratory - Microbiology an d Antimicrobial susceptibilityon 02-22-2021 SARS-CoV-2 (COVID-19) RNA LIANA+probe Ql (Unsp spec) Not detected Not Detect [facility] Work Phone: Comment on above: Normal Reference Ran ge: Not DetectedMethod:(RT-PCR) real-time reverse transcriptase PCRLuminex Homuork Instrument*The Food and Drug Administration (FDA) has issued an Emergency Use Authorization (EAU) for the [place] SARS-CoV-2 Assay for the rapid detection of [...] (RBC) [Mass/Vol] 31.2 g/dL 32-36 [facility] Work Phone: No Panel Informationon 02-22 D-Dimer Quantitative (PE/DVT) < 0.27 FEU/ug/m 0.27-0.49 [facility] Work Phone: Comment on above: NORMAL D-Dimer level (<0.50) indicates no DVT or PE. Estimated Creatinine Clearance Calc 111.44 ml/min [facility] Work Phone: Estimated GFR (MDRD) Amer 120 mL/min >60 [facility] Work Phone: Comment on above: GFR Calc Estimated GFR (MDRD) Non-Af Amer 100 mL/min >60 [facility] Work Phone: Comment on above: Non- GFR Calc Troponin I High Sensitivity 6 pg/mL 3.0-54.0 [facility] Work Phone: Comment on above: Please Note: New Dionne t Units and Gender Specific Reference Ranges. For more information see Policy Stat Procedure [place] High Sensitivity Troponin (TNIH) and attachments. Influenza Types A,B Direct FA (ARLYN) [facility] Work Phone: Platelets bldon 02-22-2021 Platelets (Bld) [#/Vol] 269 10*3/uL 150-450 [facility] Work Phone: Serum or plasma calcium benita urement (mass/volume)on 02-22-2021 Calcium [Mass/Vol] 9.8 mg/dL 8.5-10.1 [facility] Work Phone: Serum or plasma creatinine m easurement (mass/volume)on 02-22-2021 Creatinine [Mass/Vol] 0.77 mg/dL 0.55-1.02 [facility] Work Phone: Comment on above: The validity of the calculated GFR & GFRAA in patients over 70 years has not been determined. Clinical correlation is essential. Serum or plasma urea nitroge n measurement (mass/volume)on 02-22-2021 Urea nitrogen [Mass/Vol] 11 mg/dL 7-18 [facility] Work Phone: Thin prep Papanicolaou smear with manual screeningon 02-22-2021 Thin prep Papanicolaou smear with manual screening 9 5-15 [facility] Work Phone: Inpatient Clinical Summaryon 12-25-2018 Inpatient Clinical Summary [address] [address] [address] Clinical Summary Person Information Name: Juanita Murillo Age: 18 Years : 2000 Sex: Female PCP: Sara Walters CNP Marital Status: Phone: PCP: [phone] Race: White Ethnicity: Not or Language: Togolese Visit Id: Visit Reason: IUP Speciality: Acuity: PP Vag Enc Type: Inpatient Med Service: Gynecology-Obstetrics Arrival: 12/23/2018 06:51:16 Discharge: Dispo Type: Address: [place] [address] Diagnosis: ; Premature rupture of membranes Discharged [...] range between ( 28.0 and 42.0 ) [place] Auto: 7.8 % -- Normal range between [...] range between ( 36.0 and 46.0 ) [place] Absolute: 0.7 x10 MCH: 24.6 pg -- [...] New Medications MANDY [address], [place] [id number], [phone] ibuprofen (ibuprofen 800 mg oral tablet) 800 [...] Referring Physician: Follow up: With: Address: When: [facility] [address], [place] [id number] Comments: within 4-6 weeks Normal [facility] CBC w/ Diffon 12-24-2018 Erythrocyte distribution width (RBC) [Ratio] 15.5 % High 11.6-14.8 [facility] Comment on above: Performed By: #### C BC #### [facility] [address] [place] [address] Hematocrit (Bld) [Volume fraction] 28.5 % Low 36.0-46.0 [facility] Comment on above: Performed By: #### C BC #### [facility] [address] [place] [address] Hemoglobin (Bld) [Mass/Vol] 9.3 g/dL Low 12.0-16.0 [facility] Comment on above: Performed By: #### C BC #### [address] [address] MCH (RBC) [Entitic mass] 24.6 pg Low 27.0-35.0 [facility] Comment on above: Performed By: #### C BC #### [address] [address] MCHC (RBC) [Mass/Vol] 32.7 % Normal 31.0-37.0 [facility] Comment on above: Performed By: #### C BC #### [address] [address] MCV (RBC) [Entitic vol] 75.1 fL Low 80.0-100.0 [facility] Comment on above: Performed By: #### C BC #### [address] [address] Platelet mean volume (Bld) [Entitic vol] 10.8 fL High 6.7-10.6 [facility] Comment on above: Performed By: #### C BC #### [address] [address] Platelets (Bld) [#/Vol] 180 x10*3/mcL Normal 150-350 [facility] Comment on above: Performed By: #### C BC #### [address] [address] RBC (Bld) [#/Vol] 3.79 x10*6/mcL Low 3.80-5.20 [facility] Comment on above: Performed By: #### C BC #### [address] [address] WBC (Bld) [#/Vol] 9.1 x10*3/mcL Normal 4.5-11.0 [facility] Comment on above: Performed By: #### C BC #### [address] [place] [address] Diff Autoon 12-24-2018 Baso Absolute 0.0 x10*3/mcL Normal 0.0-0.2 [facility] Comment on above: Performed By: #### . Automated Diff #### [address] [address] Basophils/100 WBC (Bld) 0.3 % Normal 0.0-1.5 [facility] Comment on above: Performed By: #### . Automated Diff #### [address] [address] Eos Absolute 0.0 x10*3/mcL Normal 0.0-0.4 [facility] Comment on above: Performed By: #### . Automated Diff #### [address] [address] Eosinophils/100 WBC (Bld) 0.2 % Normal 0.0-5.4 [facility] Comment on above: Performed By: #### . Automated Diff #### [address] [address] Lymphocytes (Bld) [#/Vol] 1.7 x10*3/mcL Normal 1.2-5.2 [facility] Comment on above: Performed By: #### . Automated Diff #### [address] [address] Lymphocytes/100 WBC (Bld) 18.3 % Low 28.0-42.0 [facility] Comment on above: Performed By: #### . Automated Diff #### [address] [address] [place] Absolute 0.7 x10*3/mcL Normal 0.1-1.1 [facility] Comment on above: Performed By: #### . Automated Diff #### [address] [address] Monocytes/100 WBC (Bld) 7.8 % Normal 3.7-11.9 [facility] Comment on above: Performed By: #### . Automated Diff #### [address] [place] [address] Neutro Absolute 6.7 x10*3/mcL Normal 1.8-8.0 [facility] Comment on above: Performed By: #### . Automated Diff #### [address] [address] Neutro Auto 73.4 % High 45.6-68.4 [facility] Comment on above: Performed By: #### . Automated Diff #### [address] [address] Obstetrics Progress Noteon 1 02-23-2018 Obstetrics Progress [...] Priti Nai SAMANO 12/24/18 09:32 EST Normal [facility] CBC w/ Diffon 12-23-2018 Erythrocyte distribution width (RBC) [Ratio] 15.5 % High 11.6-14.8 [facility] Comment on above: Performed By: #### C BC #### [address] [address] Hematocrit (Bld) [Volume fraction] 32.2 % Low 36.0-46.0 [facility] Comment on above: Performed By: #### C BC #### [address] [address] Hemoglobin (Bld) [Mass/Vol] 10.7 g/dL Low 12.0-16.0 [facility] Comment on above: Performed By: #### C BC #### [address] [address] MCH (RBC) [Entitic mass] 24.3 pg Low 27.0-35.0 [facility] Comment on above: Performed By: #### C BC #### [address] [address] MCHC (RBC) [Mass/Vol] 33.1 % Normal 31.0-37.0 [facility] Comment on above: Performed By: #### C BC #### [address] [address] MCV (RBC) [Entitic vol] 73.5 fL Low 80.0-100.0 [facility] Comment on above: Performed By: #### C BC #### [address] [address] Platelet mean volume (Bld) [Entitic vol] 10.4 fL Normal 6.7-10.6 [facility] Comment on above: Performed By: #### C BC #### [address] [address] Platelets (Bld) [#/Vol] 196 x10*3/mcL Normal 150-350 [facility] Comment on above: Performed By: #### C BC #### [address] [address] RBC (Bld) [#/Vol] 4.38 x10*6/mcL Normal 3.80-5.20 [facility] Comment on above: Performed By: #### C BC #### [address] [address] WBC (Bld) [#/Vol] 6.8 x10*3/mcL Normal 4.5-11.0 [facility] Comment on above: Performed By: #### C BC #### [address] [address] Diff Autoon 12-23-2018 Baso Absolute 0.0 x10*3/mcL Normal 0.0-0.2 [facility] Comment on above: Performed By: #### . Automated Diff #### [address] [address] Basophils/100 WBC (Bld) 0.4 % Normal 0.0-1.5 [facility] Comment on above: Performed By: #### . Automated Diff #### [address] [address] Eos Absolute 0.1 x10*3/mcL Normal 0.0-0.4 [facility] Comment on above: Performed By: #### . Automated Diff #### [address] [address] Eosinophils/100 WBC (Bld) 1.4 % Normal 0.0-5.4 [facility] Comment on above: Performed By: #### . Automated Diff #### [address] [address] Lymphocytes (Bld) [#/Vol] 1.4 x10*3/mcL Normal 1.2-5.2 [facility] Comment on above: Performed By: #### . Automated Diff #### [address] [address] Lymphocytes/100 WBC (Bld) 20.1 % Low 28.0-42.0 [facility] Comment on above: Performed By: #### . Automated Diff #### [address] [address] [place] Absolute 0.5 x10*3/mcL Normal 0.1-1.1 [facility] Comment on above: Performed By: #### . Automated Diff #### [address] [address] Monocytes/100 WBC (Bld) 7.4 % Normal 3.7-11.9 [facility] Comment on above: Performed By: #### . Automated Diff #### [address] [address] Neutro Absolute 4.8 x10*3/mcL Normal 1.8-8.0 [facility] Comment on above: Performed By: #### . Automated Diff #### [address] [address] Neutro Auto 70.7 % High 45.6-68.4 [facility] Comment on above: Performed By: #### . Automated Diff #### [address] [address] History and Physicalon 12-23 History and Physical [...] / [id number] / Confirmed Hay fever / [id number] / Confirmed Depression / [id number] / Confirmed Excessive growth of facial hair / [id number] / Confirmed Polycystic ovary syndrome / [id number] / Confirmed / [id number] / Confirmed Histories History History (0,0,0,0) No [...] % HI Lymph Auto 20.1 % LOW [place] Auto 7.4 % Eos Auto 1.4 % Basophil Auto 0.4 % Neutro Absolute 4.8 x10 Lymph Absolute 1.4 x10 [place] Absolute 0.5 x10 Eos Absolute 0.1 x10 [...] 1.016 UA pH 6.0 Procedure history: Tonsillectomy ([id number]). Lazy Eye Repair. Comments: 12/31/2015 13:17 EST - Edilma Moreira Left foot surgery. Comments: 05/02/2017 13:03 EDLindsey Ziegler right foot-remove a piece glass REVISION OF NOSE ([id number]). Comments: 05/02/2017 13:21 VAMSIRosamaria Hobsonkinsey Lindsey Marlyn [...] Normal range of motion. Integumentary: Warm, Dry, [place]. Neurologic: Alert, Oriented. Psychiatric: Cooperative, Appropriate mood & affect. Impression and Plan Diagnosis (VPU05-JI Z33.1, Discharge, Medical). Premature rupture of membranes ([id number] O42, Discharge, Medical). condition: Reassuring heart rate. Maternal condition: Stable. Plan Admit. Diagnosis ([id number]-JF Z33.1, Discharge, Medical). Premature rupture of membranes ([id number] O42, Discharge, Medical). Course: Progressing as expected. Education and Follow-up: Counseled: Patient, Family. Discharge Planning: Plan to discharge ( To home, In 2 days ). Electronically signed by ___ Libertad Benjamin DO 12/23/18 14:58 EST Normal [facility] Obstetrics Progress Noteon 1 02-22-2018 Obstetrics Progress [...] Review: Problems (Active Problems Only) (SNOMED CT: 279031917, Onset: 04/12/18) Allergic rhinitis caused by pollens (SNOMED CT: 6848929259, Onset: --) ADHD (SNOMED CT: AZEGxwEmLzUcjdGfwKgAAg, Onset: --) Polycystic ovary syndrome (SNOMED CT: [id number], Onset: --) Depression (SNOMED CT: 105205356, Onset: --) Excessive growth of facial hair (SNOMED CT: 607436316, Onset: --) Premature rupture of membranes (SNOMED CT: AZEGxwEmLzUcjSUGwKgAAg, Onset: --) Delivery Summary A Membrane Status Information ROM Type: Spontaneous rupture of membranes Amniotic Fluid Color/Description: Thin meconium Labor Information 2nd Stage Onset Date/Time: 12/23/18 16:34:00 Monitoring FHR Monitoring Method: scalp electrode . Vaginal delivery procedure Performed by: grain spouter. Indication for delivery: labor progression augmented. Informed [...] cord: three vessels. Personnel present at resuscitation: Security Control Assessor. Placenta: delivery spontaneous, intact. Uterus: hemostasis. Procedure tolerated: well. Complications Maternal: no complications. Narvaez/ Baby A: respiratory distress. Impression and Plan Vaginal Delivery: condition: Stable. Maternal condition: Stable. Diagnosis (MQW78-GA Z33.1, Discharge, Medical). Premature rupture of membranes ([id number] O42, Discharge, Medical). Course: Progressing as expected. Electronically signed by ___ TahminaLibertad Lynn DO [place] 12/23/18 17:40 EST Normal [facility] Surgical Pathology Reporton 12-23-2018 Surgical Pathology Report [...] trimester placenta (529 grams), with moderate calcifications. [id number] NATE Garcia MD PhD (Electronically signed by) Verified: 12/25/18 15:28 Normal [facility] Comment on above: Performed By: #### . Automated Diff #### [place] [address] UDS OB/Con 12-23-2018 Creatinine [Mass/Vol] 388.4 mg/dL Normal [facility] Comment on above: Performed By: #### C [id number] #### [address] [address] Ur Amph Scrn w/Conf Negative Normal NEG = <1000 [facility] Comment on above: Performed By: #### C [id number] #### [address] [address] Ur Shauna Scrn w/Conf Negative Normal NEG = <200 [facility] Comment on above: Performed By: #### C [id number] #### [address] [address] Ur Benzodia Scrn w/Conf Negative Normal NEG = <200 [facility] Comment on above: Performed By: #### C [id number] #### [address] [address] Ur Cannab Scrn w/Conf Negative Normal NEG = <50 [facility] Comment on above: Performed By: #### C [id number] #### [address] [address] Ur Cocaine Scrn w/Conf Negative Normal NEG = <300 [facility] Comment on above: Performed By: #### C [id number] #### [address] [address] Ur Methadone Scrn w/Conf Negative Normal NEG = <300 [facility] [place] Comment on above: Performed By: #### C [id number] #### [address] [place] [address] Ur Opiate Scrn w/Conf Negative Normal NEG = <300 [facility] Comment on above: Performed By: #### C [id number] #### [address] [address] Ur Oxy Screen w/Conf Negative Normal NEG = <100 [facility] Comment on above: Performed By: #### C [id number] #### [address] [address] Ur Oxy Scrn Qnt w/Confirm 25 ng/mL Normal <=99 [facility] [place] [facility] Comment on above: Performed By: #### C [id number] #### [address] [place] [address] Ur PCP Scrn w/Conf Negative Normal NEG = <25 [facility] Comment on above: Performed By: #### C [id number] #### [address] [address] [employer] VIR[place] QC [place] Yes Normal [facility] Comment on above: Performed By: #### C [id number] #### [address] [place] [address] Ur Buprenorphine Scrn w/Conf Negative Normal NEG = <10 [facility] [place] Comment on above: Performed By: #### C [id number] #### [address] [address] UA pH 6.0 Normal 4.5 - 7.8 [facility] [place] Comment on above: Performed By: #### C [id number] #### [address] [place] [address] UA Spec Grav 1.016 Normal 1.003-1.035 [facility] [place] Comment on above: Performed By: #### C [id number] #### [id number] [place] [address] Grp B PCRon 12-22-2018 Allergic to Penicillin? Unknown Normal B [facility] Comment on above: Result Comment: For antibiotic sensitivity, please contact the Laboratory to request anti-microbial susceptibility testing within 7 days of specimen collection. Performed By: #### C D:[id number] #### [place] [id number] Group B Strep PCR Negative Normal Negative [facility] Comment on above: Result Comment: No G roup B Strep nucleic acid detected. The Re-Compose GBS Assay is an automated nucleic acid [...] clindamycin is noted. Performed By: #### C D:[id number] #### [place] [id number] Otheron 07-12-2018 Interpretation and review of laboratory [...] (U) 30 mg/dl Abnormal NEGATIVE [facility] Specific gravity (U) [Rel density] 1.020 [facility] Urobilinogen (U) [Mass/Vol] 0.2 mg/dl 0.2 - 1 mg/dl [facility] URINE MACROSCOPICon 07-13-19 19 Bilirubin Ql (U) SMALL Abnormal NEGATIVE [facility] Clarity Nom (U) CLEAR Normal CLEAR [facility] Color Nom (U) YELLOW Normal YELLOW [facility] Glucose Ql (U) Negative Normal NEGATIVE [facility] pH (U) 6.0 [pH] Normal 5.0-7.0 [facility] Protein mass conc (U) 30 mg/dL Abnormal NEGATIVE [facility] URINE HEMOGLOBIN Negative Normal NEGATIVE [facility] URINE KETONE 15 mg/dl Abnormal NEGATIVE [facility] URINE LEUKOTEST SMALL Abnormal NEGATIVE [facility] URINE NITRATES Negative Normal NEGATIVE [facility] URINE SPEC GRAVITY 1.020 Normal 1.010-1.025 [facility] Urobilinogen Qn (U) 0.2 mg/dl Normal 0.2-1.0 [facility] URINE MICROSCOPICon 07-13-19 19 Bacteria LM.HPF #/area (Urine sed) 1+ Abnormal NEGATIVE [facility] Casts LM.LPF #/area (Urine sed) NONE Normal [facility] CRYSTAL NONE Normal [facility] Epithelial cells LM.HPF #/area (Urine sed) TOO NUMEROUS TO COUNT Normal [facility] Mucus Ql (Urine sed) Negative Normal NEGATIVE [facility] RBC #/vol (U) Negative Normal NEGATIVE [facility] URINE COMMENT POSSIBLY CONTAMINATE D SPECIMEN, CULTURE MUST BE ORDERED SEPARATELY IF DEEMED NECESSARY. Normal [facility] WBC #/vol (U) '5 TO 10 Normal NEGATIVE [facility] Bacteria LM.HPF (Urine sed) [#/Area] 1+ Abnormal NEGATIVE [facility] Casts LM.LPF (Urine sed) [#/Area] NONE NONE /LPF [facility] Crystals LM Nom (Urine sed) NONE NONE [facility] Epithelial cells LM Ql (Urine sed) TOO NUMEROUS TO COUNT /HPF [facility] Mucus Ql (Urine sed) Negative NEGATIVE [facility] RBC LM.HPF (Urine sed) [#/Area] Negative NEGATIVE /HPF [facility] Urine sediment comments LM [place] (Urine sed) POSSIBLY CONTAMINATED SPECIMEN, CULTURE MUST BE ORDERED SEPARATELY IF DEEMED NECESSARY. [facility] WBC LM.HPF (Urine sed) [#/Area] '5 TO 10 NEGATIVE /HPF [facility] CHLAM/GC AMPLIFon 09-25-2017 CHLAMYDIA NUC. AMP Positive Abnormal Negative [facility] GONOCOCCUS NUC. AMP Negative Normal Negative [facility] Comment on above: Result Comment: [facility] H[facility] QUALon 09-20-2017 HCG.beta subunit ( test) Ql (U) Negative Normal [facility] Comment on above: Performed By: #### U HCGT #### Testing performed at [address] [address] URINE MACROSCOPICon 09-21-19 18 Bilirubin Ql (U) Negative Normal NEGATIVE [facility] Comment on above: Performed By: #### U HCGT #### Testing performed at [place] [id number] Clarity Nom (U) CLOUDY Abnormal CLEAR [facility] Comment on above: Performed By: #### U HCGT #### Testing performed at [address] [address] Color Nom (U) YELLOW Normal YELLOW [facility] Comment on above: Performed By: #### U HCGT #### Testing performed at [address] [address] Glucose Ql (U) Negative Normal NEGATIVE [facility] Comment on above: Performed By: #### U HCGT #### Testing performed at [place] [id number] pH (U) 6.0 [pH] Normal 5.0-7.0 [facility] Comment on above: Performed By: #### U HCGT #### Testing performed at [address] [address] Protein mass conc (U) 30 mg/dL Abnormal NEGATIVE [facility] Comment on above: Performed By: #### U HCGT #### Testing performed at [address] [address] URINE HEMOGLOBIN TRACE-LYSED Abnormal NEGATIVE [facility] Comment on above: Performed By: #### U HCGT #### Testing performed at [address] [address] URINE KETONE Negative Normal NEGATIVE [facility] Comment on above: Performed By: #### U HCGT #### Testing performed at [address] [address] URINE LEUKOTEST LARGE Abnormal NEGATIVE [facility] Comment on above: Performed By: #### U HCGT #### Testing performed at [address] [address] URINE NITRATES Negative Normal NEGATIVE [facility] Comment on above: Performed By: #### U HCGT #### Testing performed at [address] [address] URINE SPEC GRAVITY 1.025 Normal 1.010-1.025 [facility] Comment on above: Performed By: #### U HCGT #### Testing performed at [address] [address] Urobilinogen Qn (U) 0.2 mg/dl Normal 0.2-1.0 [facility] Comment on above: Performed By: #### U HCGT #### Testing performed at [address] [address] URINE MICROSCOPICon 09-21-19 18 Bacteria LM.HPF #/area (Urine sed) 2+ Abnormal NEGATIVE [facility] Comment on above: Performed By: #### U HCGT ####Testing performed at [address] [address] Casts LM.LPF #/area (Urine sed) NONE Normal NONE [facility] Comment on above: Performed By: #### U HCGT ####Testing performed at [address] [address] CRYSTAL NONE Normal NONE [facility] Comment on above: Performed By: #### U HCGT ####Testing performed at [address] [address] Epithelial cells LM.HPF #/area (Urine sed) TOO NUMEROUS TO COUNT Normal [facility] Comment on above: Performed By: #### U HCGT ####Testing performed at [address] [address] Mucus Ql (Urine sed) TRACE Abnormal NEGATIVE [facility] Comment on above: Performed By: #### U HCGT ####Testing performed at [address] [address] RBC #/vol (U) Negative Normal NEGATIVE [facility] Comment on above: Performed By: #### U HCGT ####Testing performed at [address] [address] URINE COMMENT POSSIBLY CONTAMINATE D SPECIMEN, CULTURE MUST BE ORDERED SEPARATELY IF DEEMED NECESSARY. Normal [facility] Comment on above: Performed By: #### U HCGT ####Testing performed at [address] [address] URINE OTHER SPERM Normal [facility] Comment on above: Performed By: #### U HCGT ####Testing performed at [address] [address] WBC #/vol (U) 20 TO 30 Normal NEGATIVE [facility] Comment on above: Performed By: #### U HCGT ####Testing performed at [address] [address] WET PREPon 09-20-2017 WET PREP SPECIMEN DESCRIPTION VAGINAL SPECIMEN WET PREP CLUE CELLS PRESENT * Result Note: NO YEAST SEEN * * Result Note: NO TRICH SEEN * * Result Note: VERIFIED BY DUP TESTING * REPORT STATUS 09/20/2017 * Result Note: FINAL * Normal [facility] Comment on above: Performed By: #### W ETP ####Testing performed at [place] [address] [place] [address] URINE HCG QUALon 08-18-2017 HCG.beta subunit ( test) Ql (U) Negative Normal [facility] URINE MACROSCOPICon 08-19-19 18 Bilirubin Ql (U) Negative Normal NEGATIVE [facility] Clarity Nom (U) CLEAR Normal CLEAR [facility] Color Nom (U) YELLOW Normal YELLOW [facility] Glucose Ql (U) Negative Normal NEGATIVE [facility] pH (U) 7.0 [pH] Normal 5.0-7.0 [facility] Protein mass conc (U) Negative Normal NEGATIVE [facility] URINE HEMOGLOBIN Negative Normal NEGATIVE [facility] URINE KETONE Negative Normal NEGATIVE [facility] URINE LEUKOTEST TRACE Abnormal NEGATIVE [facility] URINE NITRATES Negative Normal NEGATIVE [facility] URINE SPEC GRAVITY 1.015 Normal 1.010-1.025 [facility] Urobilinogen Qn (U) 0.2 mg/dl Normal 0.2-1.0 [facility] URINE MICROSCOPICon 08-19-19 18 Bacteria LM.HPF #/area (Urine sed) TRACE Abnormal NEGATIVE [facility] Casts LM.LPF #/area (Urine sed) NONE Normal NONE [facility] CRYSTAL NONE Normal NONE [facility] Epithelial cells LM.HPF #/area (Urine sed) 10 TO 20 Normal [facility] Mucus Ql (Urine sed) Negative Normal NEGATIVE [facility] RBC #/vol (U) Negative Normal NEGATIVE [facility] URINE COMMENT POSSIBLY CONTAMINATE D SPECIMEN, CULTURE MUST BE ORDERED SEPARATELY IF DEEMED NECESSARY. Normal [facility] WBC #/vol (U) 1 TO 5 Normal NEGATIVE [facility] CBCon 08-09-2017 ABSOLUTE BAS 0.0 X10 Normal [facility] ABSOLUTE EOS 0.10 X10 Normal [facility] ABSOLUTE NEUTROPHIL COUNT 5.0 x10 Normal 1.0-7.0 [facility] Basophils/100 WBC (Bld) 0.6 % Normal 0.0-2.0 [facility] DTYPE AUTO DIFF Normal [facility] Eosinophils/100 WBC (Bld) 1.6 % Normal 0.0-11.0 [facility] Lymphocytes #/vol (Bld) 1.90 X10 Normal [facility] Lymphocytes/100 WBC (Bld) 24.5 % Normal 20.0-55.0 [facility] Monocytes #/vol (Bld) 0.6 X10 Normal [facility] Monocytes/100 WBC (Bld) 7.5 % Normal 0.0-10.0 [facility] Neutrophils/100 WBC (Bld) 65.8 % Normal 37.0-75.0 [facility] Erythrocyte distribution width Ratio (RBC) 13.7 % Normal 11.5-14.5 [facility] Hematocrit Volume Fraction (Bld) 40.0 % Normal 36.0-48.0 [facility] Hemoglobin mass conc (Bld) 13.4 g/dL Normal 12.0-16.0 [facility] MCH Entitic mass (RBC) 26.0 pg Normal 26.0-35.0 [facility] MCHC mass conc (RBC) 33.5 g/dL Normal 27.0-37.0 [facility] MCV Entitic volume (RBC) 77.7 fL Low 80.0-100.0 [facility] Platelet mean volume Entitic volume (Bld) 9.7 fL Normal 7.4-11.0 [facility] Platelets #/vol (Bld) 229 /cmm Normal 130.0-400.0 [facility] RBC #/vol (Bld) 5.14 /cmm Normal 4.0-5.4 [facility] WBC #/vol (Bld) 7.7 /cmm Normal 3.6-11.0 [facility] CHEM 7 FASTINGon 08-09-2017 Chloride molar conc 107 mmol/L Normal 98-107 [facility] CO2 molar conc 28 mmol/L Normal 22-30 [facility] Creatinine mass conc 0.7 mg/dL Normal 0.7-1.2 [facility] GFR/1.73 sq M predicted among non-blacks MDRD vol rate/area (S/P/Bld) Unable to calculate GFR due to inappropriate age/gender/creatinine value. Normal [facility] Glucose mass conc 109 mg/dL High 70-100 [facility] Comment on above: Result Comment: NORMAL <100 mg/dL PREDIABETES 101-126 mg/dL DIABETES 126 mg/dL or higher Potassium molar conc 3.9 mmol/L Normal 3.5-5.1 [facility] Sodium molar conc 144 mmol/L Normal 137-145 [facility] Urea nitrogen mass conc 9 mg/dL Normal 7-20 [facility] URINE HCG QUALon 08-09-2017 HCG.beta subunit ( test) Ql (U) Negative Normal [facility] URINE MACROSCOPICon 08-10-19 18 Bilirubin Ql (U) Negative Normal NEGATIVE [facility] Clarity Nom (U) HAZY Abnormal CLEAR [facility] Color Nom (U) YELLOW Normal YELLOW [facility] Glucose Ql (U) Negative Normal NEGATIVE [facility] pH (U) 6.0 [pH] Normal 5.0-7.0 [facility] Protein mass conc (U) Negative Normal NEGATIVE [facility] URINE HEMOGLOBIN Negative Normal NEGATIVE [facility] URINE KETONE Negative Normal NEGATIVE [facility] URINE LEUKOTEST SMALL Abnormal NEGATIVE [facility] URINE NITRATES Negative Normal NEGATIVE [facility] URINE SPEC GRAVITY 1.020 Normal 1.010-1.025 [facility] Urobilinogen Qn (U) 0.2 mg/dl Normal 0.2-1.0 [facility] URINE MICROSCOPICon 08-10-19 18 Bacteria LM.HPF #/area (Urine sed) 3+ Abnormal NEGATIVE [facility] Casts LM.LPF #/area (Urine sed) NONE Normal [facility] CRYSTAL OCCASIONAL Abnormal NONE [facility] Comment on above: Result Comment: QUINTIN PHOUS URATES Epithelial cells LM.HPF #/area (Urine sed) 20 TO 30 Normal [facility] Mucus Ql (Urine sed) 1+ Abnormal NEGATIVE [facility] RBC #/vol (U) Negative Normal NEGATIVE [facility] URINE COMMENT POSSIBLY CONTAMINATE D SPECIMEN, CULTURE MUST BE ORDERED SEPARATELY IF DEEMED NECESSARY. Normal [facility] WBC #/vol (U) 10 TO 20 Normal NEGATIVE [facility] Aer C AND S- Throaton 2017 Aer C AND S- Throat See BelowAccession: [id number]: Throat throatProcedure: Hemolytic Strep Culture [p1]Collected: 04/14/2017 01:00 ESTReceived: 04/14/2017 17:59 ESTFINAL REPORTSVerified Date/Time: 04/15/2017 00:50 ESTNo Beta Hemolytic Streptococci isolatedPerforming Locationsp1: This test was performed at:[facility], CLIA #[id number], [address], [place], [address] [place] [address], [facility] Comment on above: Order Comment: Maryana medeiros Order: [id number] HCG, Serumon 04-14-2017 HCG Qn Negative [facility] Comment on above: Order Comment: [facility], [address] [place], [place] [id number] Order: [id number] Result Comment: Note : This test provides [...] be followed with a throatculture.Testing performed at [facility], [address] [place], [place] [id number] Order: [id number] Culture, urine Bacteria identified Cx Nom (U) Positive [facility] Work Phone: Bacteria identified Cx Nom (U) Mixed Gram Pos & Gram Neg Org [facility] Work Phone: No Panel Information Group B Streptococcus Culture Group B Beta Streptococcus is not isolated. [facility] Work Phone: Vital Signs Date Time Vital Sign Value Performing Clinician Facility 11-24-2024 14:50-0400 Body height 170.[address] Tiffany Marks MD Work Phone: [facility] 11-24-2024 14:41-0400 Body mass index (BMI) [Ratio] 50.6 kg/m2 Dr. Tiffany Marks MD Work Phone: [facility] 11-24-2024 14:41-0400 Body weight 146.[address] Tiffany Marks MD Work Phone: [facility] 11-24-2024 14:41-0400 Diastolic blood pressure 72 mm[Hg] Dr. Tiffany Marks MD Work Phone: [facility] 11-24-2024 14:41-0400 Systolic blood pressure 119 mm[Hg] Dr. Tiffany Marks MD Work Phone: [facility] 10-30-2024 08:09-0400 Body height 170.18 cm [employer]LE [employer] Work Phone: [facility] 10-30-2024 08:09-0400 Body mass index (BMI) [Ratio] 50.8 kg/m2 [employer] Work Phone: [facility] 10-30-2024 08:09-0400 Body temperature 97.8 [degF] [employer] Work Phone: [facility] 10-30-2024 08:09-0400 Body weight 147.19 kg [employer]LE [employer] Work Phone: [facility] 10-30-2024 08:09-0400 Diastolic blood pressure 65 mm[Hg] [employer]LE [employer] Work Phone: [facility] 10-30-2024 08:09-0400 Heart rate 93 /min [employer] Work Phone: [facility] 10-30-2024 08:09-0400 Respiratory rate 16 /min [employer] Work Phone: [facility] 10-30-2024 08:09-0400 SaO2% (BldA) [Mass fraction] 98 % [employer] Work Phone: [facility] 10-30-2024 08:09-0400 Systolic blood pressure 114 mm[Hg] [employer] Work Phone: [facility] 10-21-2024 14:55-0400 Body height 170.18 cm [employer] Work Phone: [facility] 10-21-2024 14:55-0400 Body mass index (BMI) [Ratio] 50.5 kg/m2 [employer] Work Phone: [facility] 10-21-2024 14:55-0400 Body weight 146.51 kg [employer]LE [employer] Work Phone: [facility] 10-21-2024 14:55-0400 Diastolic blood pressure 81 mm[Hg] [employer] Work Phone: [facility] 10-21-2024 14:55-0400 Respiratory rate 18 /min [employer] Work Phone: [facility] 10-21-2024 14:55-0400 Systolic blood pressure 120 mm[Hg] [employer]LE [employer] Work Phone: [facility] 10-14-2024 10:56-0400 Body height 170.18 cm [employer]HELLE [employer] Work Phone: [facility] 10-14-2024 10:56-0400 Body mass index (BMI) [Ratio] 50.7 kg/m2 [employer] Work Phone: [facility] 10-14-2024 10:56-0400 Body weight 146.99 kg MICHELLE [employer] Work Phone: [facility] 10-14-2024 10:56-0400 Diastolic blood pressure 80 mm[Hg] [employer]LE [employer] Work Phone: [facility] 10-14-2024 10:56-0400 Systolic blood pressure 123 mm[Hg] [employer]LE [employer] Work Phone: [facility] 09-18-2024 08:36-0400 Body height 170.18 cm [employer]LE [employer] Work Phone: [facility] 09-18-2024 08:36-0400 Diastolic blood pressure 71 mm[Hg] [employer]LE [employer] Work Phone: [facility] 09-18-2024 08:36-0400 Systolic blood pressure 114 mm[Hg] [employer]LE [employer] Work Phone: [facility] 09-05-2024 08:08-0400 Body height 170.18 cm [employer]LE [employer] Work Phone: [facility] 09-05-2024 08:08-0400 Body mass index (BMI) [Ratio] 50.4 kg/m2 [employer] Work Phone: [facility] 09-05-2024 08:08-0400 Body weight 146.11 kg [employer]HELLE [employer] Work Phone: [facility] 09-05-2024 08:08-0400 Diastolic blood pressure 78 mm[Hg] [employer] Work Phone: [facility] 09-05-2024 08:08-0400 Heart rate 88 /min [employer] Work Phone: [facility] 09-05-2024 08:08-0400 SaO2% (BldA) [Mass fraction] 96 % [employer] Work Phone: [facility] 09-05-2024 08:08-0400 Systolic blood pressure 116 mm[Hg] [employer]LE [employer] Work Phone: [facility] 09-01-2024 13:06-0400 Body height 170.18 cm [employer] Work Phone: [facility] 09-01-2024 12:58-0400 Body mass index (BMI) [Ratio] 49.7 kg/m2 [employer] Work Phone: [facility] 09-01-2024 12:58-0400 Body weight 144.01 kg [employer]LE [employer] Work Phone: [facility] 09-01-2024 12:58-0400 Diastolic blood pressure 84 mm[Hg] [employer] Work Phone: [facility] 09-01-2024 12:58-0400 Systolic blood pressure 128 mm[Hg] [employer]LE [employer] Work Phone: [facility] 08-13-2024 14:45-0400 Body height 170.18 cm [employer] Work Phone: [facility] 08-13-2024 14:45-0400 Body mass index (BMI) [Ratio] 50.5 kg/m2 [employer] Work Phone: [facility] 08-13-2024 14:45-0400 Body temperature 98.9 [degF] [employer] Work Phone: [facility] 08-13-2024 14:45-0400 Body weight 146.51 kg [employer] Work Phone: [facility] 08-13-2024 14:45-0400 Diastolic blood pressure 84 mm[Hg] [employer] Work Phone: [facility] 08-13-2024 14:45-0400 Heart rate 83 /min [employer] Work Phone: [facility] 08-13-2024 14:45-0400 Respiratory rate 18 /min [employer] Work Phone: [facility] 08-13-2024 14:45-0400 SaO2% (BldA) [Mass fraction] 96 % [employer] Work Phone: [facility] 08-13-2024 14:45-0400 Systolic blood pressure 120 mm[Hg] [employer] Work Phone: [facility] 07-30-2024 08:31-0400 Body height 170.18 cm [employer] Work Phone: [facility] 07-30-2024 08:31-0400 Body mass index (BMI) [Ratio] 49.7 kg/m2 [employer] Work Phone: [facility] 07-30-2024 08:31-0400 Body weight 144.01 kg [employer] Work Phone: [facility] 07-30-2024 08:31-0400 Diastolic blood pressure 80 mm[Hg] [employer] Work Phone: [facility] 07-30-2024 08:31-0400 Heart rate 98 /min [employer] Work Phone: [facility] 07-30-2024 08:31-0400 Respiratory rate 16 /min [employer] Work Phone: [facility] 07-30-2024 08:31-0400 SaO2% (BldA) [Mass fraction] 96 % [employer] Work Phone: [facility] 07-30-2024 08:31-0400 Systolic blood pressure 112 mm[Hg] [employer] Work Phone: [facility] 07-24-2024 10:45-0400 Body temperature 98.7 [degF] [employer] Work Phone: [facility] 07-24-2024 10:45-0400 Diastolic blood pressure 86 mm[Hg] [employer] Work Phone: [facility] 07-24-2024 10:45-0400 Heart rate 66 /min [employer] Work Phone: [facility] 07-24-2024 10:45-0400 Respiratory rate 16 /min [employer] Work Phone: [facility] 07-24-2024 10:45-0400 SaO2% (BldA) [Mass fraction] 98 % [employer] Work Phone: [facility] 07-24-2024 10:45-0400 Systolic blood pressure 122 mm[Hg] [employer]LE [employer] Work Phone: [facility] 07-24-2024 08:23-0400 Body height 170.18 cm MICHELLE MAST COMPUTER TAPE LIBRARIAN Work Phone: [facility] 07-24-2024 08:23-0400 Body mass index (BMI) [Ratio] 49.8 kg/m2 MICHELLE MAST COMPUTER TAPE LIBRARIAN Work Phone: [facility] 07-24-2024 08:23-0400 Body weight 144.33 kg MICHELLE MAST COMPUTER TAPE LIBRARIAN Work Phone: [facility] 08-07-2023 11:42-[address] ZEYNEP MOURA MD [facility] 08-07-2023 11:42-0400 Body height [address] ZEYNEP MOURA MD [facility] 08-07-2023 11:42-0400 Body temperature 97.34 [degF] DR ZEYNEP MOURA MD [facility] 08-07-2023 11:42-0400 Body weight 118.[address] ZEYNEP MOURA MD [facility] 08-07-2023 11:42-0400 Diastolic Blood Pressure Non-Invasive 64 mm[Hg] DR ZEYNEP MOURA MD [facility] 08-07-2023 11:42-0400 Heart rate 85 /min DR ZEYNEP MOURA MD [facility] 08-07-2023 11:42-0400 Respiratory rate 16 /min DR ZEYNEP MOURA MD [facility] 08-07-2023 11:42-0400 Systolic Blood Pressure Non-Invasive 107 mm[Hg] DR ZEYNEP MOURA MD [facility] 06-26-2023 14:11-0400 Diastolic Blood Pressure Non-Invasive 67 mm[Hg] DR VALERIA SANTANA MD [facility] 06-26-2023 14:11-0400 Heart rate 72 /min DR VALERIA SANTANA MD [facility] 06-26-2023 14:11-0400 Respiratory rate 18 /min DR VALERIA SANTANA MD [facility] 06-26-2023 14:11-0400 Systolic Blood Pressure Non-Invasive 112 mm[Hg] DR VALERIA SANTANA MD [facility] 06-26-2023 12:07-0400 Body height 172.[address] VALERIA SANTANA MD [facility] 06-26-2023 12:07-0400 Body temperature 98.42 [degF] DR VALERIA SANTANA MD [facility] 06-26-2023 12:07-0400 Body weight [address] VALERIA SANTANA MD [facility] 06-26-2023 12:07-0400 Diastolic Blood Pressure Non-Invasive 73 mm[Hg] DR VALERIA SANTANA MD [facility] 06-26-2023 12:07-0400 Heart rate 98 /min DR VALERIA SANTANA MD [facility] 06-26-2023 12:07-0400 Respiratory rate 18 /min DR VALERIA SANTANA MD [facility] 06-26-2023 12:07-0400 Systolic Blood Pressure Non-Invasive 111 mm[Hg] DR VALERIA SANTANA MD [facility] 05-16-2023 17:55-0400 Diastolic Blood Pressure Non-Invasive 77 mm[Hg] IVANA LANGE MD [facility] 05-16-2023 17:55-0400 Heart rate 76 /min IVANA LANGE MD [facility] 05-16-2023 17:55-0400 Mean blood pressure 90 mm[Hg] IVANA LANGE MD [facility] 05-16-2023 17:55-0400 Respiratory rate 16 /min IVANA LANGE MD [facility] 05-16-2023 17:55-0400 Systolic Blood Pressure Non-Invasive 125 mm[Hg] IVANA LANGE MD [facility] 05-16-2023 16:45-0400 Body height 170.2 cm IVANA LANGE MD [facility] 05-16-2023 16:45-0400 Body temperature 98.42 [degF] IVANA LANGE MD [facility] 05-16-2023 16:45-0400 Body weight 127.3 kg IVANA LANGE MD [facility] 05-16-2023 16:45-0400 Diastolic Blood Pressure Non-Invasive 77 mm[Hg] IVANA LANGE MD [facility] 05-16-2023 16:45-0400 Heart rate 89 /min IVANA LANGE MD [facility] 05-16-2023 16:45-0400 Respiratory rate 18 /min IVANA LANGE MD [facility] 05-16-2023 16:45-0400 Systolic Blood Pressure Non-Invasive 114 mm[Hg] IVANA LANGE MD [facility] 04-03-2023 14:18-[address] BLAYNE DORAN MD [facility] 04-03-2023 14:18-0500 Body temperature 98.78 [degF] DR BLAYNE DORAN MD [facility] 04-03-2023 14:18-0500 Body weight 133.[address] BLAYNE DORAN MD [facility] 04-03-2023 14:18-0500 Diastolic Blood Pressure Non-Invasive 71 mm[Hg] DR BLAYNE DORAN MD [facility] 04-03-2023 14:18-0500 Heart rate 89 /min DR BLAYNE DORAN MD [facility] 04-03-2023 14:18-0500 Respiratory rate 18 /min DR BLAYNE DORAN MD [facility] 04-03-2023 14:18-0500 Systolic Blood Pressure Non-Invasive 105 mm[Hg] DR BLAYNE DORAN MD [facility] 02-22-2023 19:54-0500 Blood Pressure Cuff Size DR BLAYNE DORAN MD [facility] 02-22-2023 19:54-[address] BLAYNE DORAN MD [facility] 02-22-2023 19:54-[address] BLAYNE DORAN MD [facility] 02-22-2023 19:54-0500 Diastolic Blood Pressure Non-Invasive 71 mm[Hg] DR BLAYNE DORAN MD [facility] 02-22-2023 19:54-0500 Heart rate 64 /min DR BLAYNE DORAN MD [facility] 02-22-2023 19:54-0500 Respiratory rate 16 /min DR BLAYNE DORAN MD [facility] 02-22-2023 19:54-0500 Systolic Blood Pressure Non-Invasive 129 mm[Hg] DR BLAYNE DORAN MD [facility] 02-22-2023 15:01-0500 Body height 170.[address] BLAYNE DORAN MD [facility] 02-22-2023 15:01-0500 Body temperature 98.42 [degF] DR BLAYNE DORAN MD [facility] 02-22-2023 15:01-0500 Body weight [address] BLAYNE DORAN MD [facility] 02-22-2023 15:01-0500 Diastolic Blood Pressure Non-Invasive 79 mm[Hg] DR BLAYNE DORAN MD [facility] 02-22-2023 15:01-0500 Heart rate 73 /min DR BLAYNE DORAN MD [facility] 02-22-2023 15:01-0500 Respiratory rate 18 /min DR BLAYNE DORAN MD [facility] 02-22-2023 15:01-0500 Systolic Blood Pressure Non-Invasive 121 mm[Hg] DR BLAYNE DORAN MD [facility] 02-09-2022 14:26-0500 Body temperature 97.4 [degF] [facility] Work Phone: 02-09-2022 14:26-0500 Diastolic blood pressure 66 mm[Hg] [facility] Work Phone: 02-09-2022 14:26-0500 Heart rate 85 /min [facility] Work Phone: 02-09-2022 14:26-0500 Respiratory rate 16 /min [facility] Work Phone: 02-09-2022 14:26-0500 SaO2% (BldA) [Mass fraction] 96 % [facility] Work Phone: 02-09-2022 14:26-0500 Systolic blood pressure 114 mm[Hg] [facility] Work Phone: 02-04-2022 15:31-0500 Body height 170.18 cm [facility] Work Phone: 02-04-2022 15:31-0500 Body mass index (BMI) [Ratio] 49.4 kg/m2 [facility] Work Phone: 02-04-2022 15:31-0500 Body weight 143.33 kg [facility] Work Phone: 01-28-2022 07:37-0500 SaO2% (BldA) [Mass fraction] 98 % [facility] Work Phone: 01-28-2022 07:36-0500 Body temperature 97.8 [degF] [facility] Work Phone: 01-28-2022 07:36-0500 Diastolic blood pressure 79 mm[Hg] [facility] Work Phone: 01-28-2022 07:36-0500 Heart rate 63 /min [facility] Work Phone: 01-28-2022 07:36-0500 Systolic blood pressure 133 mm[Hg] [facility] Work Phone: 01-27-2022 22:45-0500 Body height 170.18 cm [facility] Work Phone: 01-27-2022 22:45-0500 Body mass index (BMI) [Ratio] 49.1 kg/m2 [facility] Work Phone: 01-27-2022 22:45-0500 Body weight 142.14 kg [facility] Work Phone: 01-17-2022 16:11-0500 Diastolic blood pressure 76 mm[Hg] [facility] Work Phone: 01-17-2022 16:11-0500 Heart rate 69 /min [facility] Work Phone: 01-17-2022 16:11-0500 SaO2% (BldA) [Mass fraction] 96 % [facility] Work Phone: 01-17-2022 16:11-0500 Systolic blood pressure 118 mm[Hg] [facility] Work Phone: 01-17-2022 16:10-0500 Body temperature 98.4 [degF] [facility] Work Phone: 01-17-2022 15:25-0500 Body height 170.18 cm [facility] Work Phone: 01-17-2022 15:25-0500 Body mass index (BMI) [Ratio] 47.3 kg/m2 [facility] Work Phone: 01-17-2022 15:25-0500 Body weight 137.1 kg [facility] Work Phone: 11-26-2021 17:43-0400 Body height 170.18 cm [facility] Work Phone: 11-26-2021 17:43-0400 Body mass index (BMI) [Ratio] 43.9 kg/m2 [facility] Work Phone: 11-26-2021 17:43-0400 Body weight 127.3 kg [facility] Work Phone: 11-26-2021 17:26-0400 Diastolic blood pressure 64 mm[Hg] [facility] Work Phone: 11-26-2021 17:26-0400 Heart rate 90 /min [facility] Work Phone: 11-26-2021 17:26-0400 Systolic blood pressure 118 mm[Hg] [facility] Work Phone: 11-26-2021 17:25-0400 Body temperature 98.3 [degF] [facility] Work Phone: 02-22-2021 14:11-0500 Diastolic blood pressure 78 mm[Hg] [facility] Work Phone: 02-22-2021 14:11-0500 Heart rate 79 /min [facility] Work Phone: 02-22-2021 14:11-0500 SaO2% (BldA) [Mass fraction] 98 % [facility] Work Phone: 02-22-2021 14:11-0500 Systolic blood pressure 123 mm[Hg] [facility] Work Phone: 02-22-2021 11:57-0500 Respiratory rate 14 /min [facility] Work Phone: 02-22-2021 08:45-0500 Body height 170.18 cm [facility] Work Phone: 02-22-2021 08:45-0500 Body mass index (BMI) [Ratio] 46.5 kg/m2 [facility] Work Phone: 02-22-2021 08:45-0500 Body temperature 96.5 [degF] [facility] Work Phone: 02-22-2021 08:45-0500 Body weight 134.7 kg [facility] Work Phone: 07-12-2018 12:46-0400 Height 170.2 cm [facility] 07-12-2018 12:44-0400 Body Temperature 98.1 [degF] [facility] 07-12-2018 12:44-0400 BP Diastolic 64 mm[Hg] [facility] 07-12-2018 12:44-0400 BP Systolic 125 mm[Hg] [facility] 07-12-2018 12:44-0400 Pulse (Heart Rate) 100 /min [facility] 07-12-2018 12:44-0400 Pulse Oximetry 97 % [facility] 07-12-2018 12:44-0400 Respiratory Rate 18 /min [facility] 10-24-2017 14:40-0400 BMI (Body Mass Index) 39.68 kg/m2 [facility] 10-24-2017 14:40-0400 Body Temperature 98.71 [degF] [facility] 10-24-2017 14:40-0400 BP Diastolic 72 mm[Hg] [facility] 10-24-2017 14:40-0400 BP Systolic 105 mm[Hg] [facility] 10-24-2017 14:40-0400 Height 172.7 cm [facility] 10-24-2017 14:40-0400 Pulse (Heart Rate) 94 /min [facility] 10-24-2017 14:40-0400 Pulse Oximetry 96 % [facility] 10-24-2017 14:40-0400 Respiratory Rate 16 /min [facility] 10-24-2017 14:40-0400 Weight 118.39 kg [facility] Encounters Encounter Date Encounter Type Care Provider Facility Start: 12-04-2024 ambulatory Luis Dupreenoa Facility :[facility] Start: 12-03-2024 Encounter for other preprocedural examination Luis Pandya [facility] Start: 11-24-2024 End: 11-24-2024 Patient encounter procedure Simin BENITES -[facility] Work Phone: Start: 11-24-2024 End: 11-24-[address] Tiffany Marks MD Work Phone: -[facility] Start: 11-19-2024 End: 11-19-[address] Tiffany Marks MD Work Phone: -[facility] Start: 11-19-2024 End: 11-19-[address] Teresa Wilkinson MD -[facility] Work Phone: Start: 11-19-2024 End: 11-19-2024 ambulatory MICHELLE MAST Facility:[facility] Start: 10-30-2024 End: 10-30-2024 Patient encounter procedure Ashley BENITES -[facility] Work Phone: Start: 10-30-2024 End: 10-30-2024 ambulatory MICHELLE MAST COMPUTER TAPE LIBRARIAN Work Phone: -[facility] Start: 10-21-2024 End: 10-21-[address] Luis Pandya MD -[facility] Work Phone: Start: 10-21-2024 End: 10-21-2024 ambulatory MICHELLE MAST COMPUTER TAPE LIBRARIAN Work Phone: -[facility] Start: 10-15-2024 ambulatory Ashley Tracey ty:[facility] Start: 10-14-2024 End: 10-14-2024 Patient encounter procedure Simin BENITES -[facility] Work Phone: Start: 10-14-2024 End: 10-14-2024 ambulatory MICHELLE MAST COMPUTER TAPE LIBRARIAN Work Phone: -[facility] Start: 10-14-2024 End: 10-14-2024 ambulatory Roxanne De La Cruz Facility:[facility] Start: 09-19-2024 End: 09-19-2024 ambulatory MICHELLE MAST COMPUTER TAPE LIBRARIAN Work Phone: -[facility] Start: 09-19-2024 End: 09-19-2024 Patient encounter procedure Simin Yu RECRUITMENT SPECIALIST-C -[facility] Work Phone: Start: 09-18-2024 End: 09-18-[address] Teresa Wilkinson MD -[facility] Work Phone: Start: 09-18-2024 End: 09-19-2024 ambulatory MICHELLE MAST COMPUTER TAPE LIBRARIAN Work Phone: [facility] Start: 09-10-2024 End: 09-10-2024 ambulatory MICHELLE MAST COMPUTER TAPE LIBRARIAN Work Phone: -Laboratory Start: 09-10-2024 End: 09-10-2024 Patient encounter procedure Ashley Larose RECRUITMENT SPECIALIST-C -Laboratory Work Phone: Start: 09-10-2024 End: 09-10-2024 ambulatory Ashley Larose Facility:[facility] Start: 09-05-2024 End: 09-05-2024 Patient encounter procedure Ashley Larose NP-C -[facility] Work Phone: Start: 09-05-2024 End: 09-05-2024 ambulatory MICHELLE MAST COMPUTER TAPE LIBRARIAN Work Phone: -[facility] Start: 09-02-2024 End: 09-02-2024 ambulatory MICHELLE MAST COMPUTER TAPE LIBRARIAN Work Phone: -Laboratory Start: 09-02-2024 End: 09-02-2024 Patient encounter procedure Ashley Larose RECRUITMENT SPECIALIST-C -Laboratory Work Phone: Start: 09-01-2024 End: 09-01-2024 Patient encounter procedure Simin Yu RECRUITMENT SPECIALIST-C -[facility] Work Phone: Start: 09-01-2024 End: 09-02-2024 ambulatory MICHELLE MAST COMPUTER TAPE LIBRARIAN Work Phone: -[facility] Start: 08-13-2024 End: 08-13-[address] Tiffany Marks MD -[facility] Work Phone: Start: 08-13-2024 End: 08-13-2024 ambulatory MICHELLE MAST COMPUTER TAPE LIBRARIAN Work Phone: [facility] Work Phone: Start: 08-05-2024 End: 08-05-2024 ambulatory MICHELLE MAST COMPUTER TAPE LIBRARIAN Work Phone: [facility] Work Phone: Start: 08-05-2024 End: 08-05-2024 Patient encounter procedure Ashley BENITES -[facility] Work Phone: Start: 08-05-2024 End: 08-05-2024 ambulatory Tiffany Wallingford Facility:[facility] Start: 07-30-2024 End: 07-30-2024 ambulatory MICHELLE MAST COMPUTER TAPE LIBRARIAN Work Phone: [facility] Work Phone: Start: 07-30-2024 End: 07-30-2024 Patient encounter procedure Ashley BENITES -Laboratory Work Phone: Start: 07-30-2024 End: 07-30-2024 Patient encounter procedure Ashley BENITES -[facility] Work Phone: Start: 07-30-2024 End: 07-30-2024 ambulatory MICHELLE MAST COMPUTER TAPE LIBRARIAN Work Phone: [facility] Work Phone: Start: 07-29-2024 Registered [employer] HEALTH RIS K ASSESSMENT -Laboratory Work Phone: Start: 07-29-2024 End: 07-30-2024 ambulatory Tiffany [place]ingford Facility:[facility] Start: 07-24-2024 End: 07-24-2024 Emergency department patient visit MICHELLE MAST COMPUTER TAPE LIBRARIAN Work Phone: -Emergency Department Work Phone: Start: 07-16-2024 End: 07-16-2024 ambulatory MICHELLE MAST COMPUTER TAPE LIBRARIAN Work Phone: [facility] Work Phone: Start: 07-16-2024 End: 07-16-2024 Patient encounter procedure Libertad Carrillobobby RECRUITMENT SPECIALIST-C -Laboratory Work Phone: Start: 07-16-2024 End: 07-16-2024 ambulatory Libertadiggy Pate Facility:[facility] Start: 06-05-2024 Registered [employer] HEALTH RIS K ASSESSMENT -Employee Health Start: 06-05-2024 ambulatory MICHELLE MAST Facility:[facility] Start: 06-05-2024 Registered [employer] -Employee Health Start: 01-19-2024 End: 01-19-2024 ambulatory Libertad Pate Facility:[facility] Start: 01-15-2024 ambulatory MICHELLE MAST Facility:[facility] Start: 08-07-2023 End: 08-07-2023 Emergency department patient visit DR ZEYNEP MOURA MD [facility] Start: 2023 End: 2023 Patient encounter procedure SAYEDA DERIK MAGICIAN/ILLUSIONIST-VISUAL MERCHANDISING ASSOCIATE [facility] Start: 2023 End: 2023 ambulatory SAYEDA DERIK MAGICIAN/ILLUSIONIST-VISUAL MERCHANDISING ASSOCIATE Facility:[facility] Start: 07-02-2023 ambulatory SAYEDA DERIK MAGICIAN/ILLUSIONIST-VISUAL MERCHANDISING ASSOCIATE Facility:[facility] Start: 06-26-2023 End: 06-26-2023 Emergency department patient visit DR VALERIA SANTANA MD [facility] Start: 05-16-2023 End: 05-16-2023 Emergency department patient visit IVANA LANGE MD [facility] Start: 05-15-2023 End: 05-15-2023 ambulatory MICHELLE MAST MAGICIAN/ILLUSIONIST-VISUAL MERCHANDISING ASSOCIATE Facility:[facility] Start: 05-15-2023 End: 05-15-2023 Patient encounter procedure ARACELIS MORE MAGICIAN/ILLUSIONIST-VISUAL MERCHANDISING ASSOCIATE [facility] Start: 04-03-2023 End: 04-03-2023 Emergency department patient visit DR BLAYNE DORAN MD [facility] Start: 02-24-2023 End: 02-24-2023 ambulatory MICHELLE MAST MAGICIAN/ILLUSIONIST-VISUAL MERCHANDISING ASSOCIATE Facility:[facility] Start: 02-24-2023 End: 02-24-2023 Patient encounter procedure MICHELLE MAST MAGICIAN/ILLUSIONIST-VISUAL MERCHANDISING ASSOCIATE [facility] Start: 02-22-2023 End: 02-22-2023 Emergency department patient visit DR BLAYNE DORAN MD [facility] Start: 08-31-2022 End: 08-31-2022 ambulatory [facility] Work Phone: Start: 08-31-2022 End: 08-31-2022 Patient encounter procedure [facility]-Laboratory, Specimen Work Phone: Start: 02-04-2022 End: 02-09-2022 [facility] Start: 02-01-2022 End: 02-01-2022 ambulatory [facility] Work Phone: Start: 02-01-2022 End: 02-01-2022 Patient encounter procedure [facility]Laboratory, [place] [facility] social worker Off Start: 01-30-2022 End: 01-31-2022 Evaluation and management of inpatient WILLOW MOSCOSO [facility] Start: 01-28-2022 End: 01-31-2022 Evaluation and management of inpatient [facility] Start: 01-27-2022 End: 01-28-2022 ambulatory [facility] Work Phone: Start: 01-27-2022 End: 01-28-2022 Patient encounter procedure [facility], Outpatients Start: 01-24-2022 End: 01-24-2022 ambulatory [facility] Work Phone: Start: 01-24-2022 End: 01-24-2022 Patient encounter procedure [facility]-Laboratory, [place] [facility] social worker Off Start: 01-17-2022 End: 01-17-2022 ambulatory [facility] Work Phone: Start: 01-17-2022 End: 01-17-2022 Patient encounter procedure [facility], Outpatients Start: 12-02-2021 End: 12-02-2021 ambulatory [facility] Work Phone: Start: 12-02-2021 End: 12-02-2021 [facility] [place] [facility] Start: 11-28-2021 End: 11-28-2021 ambulatory [facility] Work Phone: Start: 11-28-2021 End: 11-28-2021 [facility] [place] [facility] Start: 11-26-2021 End: 11-26-2021 Patient encounter procedure [facility], Outpatients Start: 09-13-2021 End: 09-13-2021 Patient encounter procedure [facility], [place] [facility] social worker Off Start: 08-23-2021 End: 08-23-2021 Patient encounter procedure [facility], [place] [facility] social worker Off Start: 07-02-2021 End: 07-02-2021 Patient encounter procedure [facility] Start: 06-30-2021 End: 06-30-2021 Patient encounter procedure [facility]atory, [place] [facility] social worker Off Start: 06-28-2021 End: 06-28-2021 Patient encounter procedure [facility], [place] [facility] social worker Off Start: 05-30-2021 End: 05-30-2021 Patient encounter procedure [facility], [place] [facility] social worker Off Start: 02-22-2021 End: 02-22-2021 Emergency department patient visit [facility]Emergency Department Start: 07-12-2018 End: 07-12-2018 Emergency department patient visit Myron Suhas Morrison Work Phone: [facility] Start: 07-10-2018 Patient encounter procedure LIBERTAD LYNN Facility:[facility] Start: 10-25-2017 End: 10-29-2017 Patient encounter LYDIA HALL ZACK [facility] Start: 10-24-2017 End: 10-24-2017 Patient encounter SARAEVER CASTILLO NII [facility] Start: 10-24-2017 End: 10-24-2017 Office outpatient new 20 minutes Lydia Flynn Work Phone: [facility] [place] Comment on above: Diarrhea, unspecifie d type (Primary Dx) Start: 04-14-2017 End: 04-14-2017 Emergency department patient visit KORINA RAMIREZ Facility:[facility] Start: 04-12-2017 End: 04-12-2017 Emergency department patient visit WALTERSuhas BOYCE Facility:[facility] Procedures Date Procedure Procedure Detail Performing Clinician Start: 11-19-[address] Suhas Marks MD Work Phone: Start: 10-14-2024 Radionuclide study of abdomen MICHELLE MAST COMPUTER TAPE LIBRARIAN Work Phone: Start: 09-19-2024 Pelvic echography KRIST A MAST COMPUTER TAPE LIBRARIAN Work Phone: Start: 09-10-2024 CR measurement MICHELLE MAST COMPUTER TAPE LIBRARIAN Work Phone: Comment on above: Performed at: [address] [id number] Director: Gilles Carey PhD, Phone: [phone] Start: 09-10-2024 Antibody measurement KR ISTA MAST COMPUTER TAPE LIBRARIAN Work Phone: Comment on above: The atypical pANCA p attern has been observed in asignificant percentage of patients with ulcerative colitis,primary sclerosing cholangitis and autoimmune hepatitis. Start: 09-10-2024 Antibody to centrome re measurement MICHELLE MAST COMPUTER TAPE LIBRARIAN Work Phone: Comment on above: Test not performed Start: 09-10-2024 Antibody to extracta ble nuclear antigen measurement MICHELLE MAST COMPUTER TAPE LIBRARIAN Work Phone: Comment on above: Test not performed Start: 09-10-2024 Antibody to DIEGO-1 measurement MICHELLE MAST COMPUTER TAPE LIBRARIAN Work Phone: Comment on above: Test not performed Start: 09-10-2024 Antibody to lupus [place] protein measurement MICHELLE MAST COMPUTER TAPE LIBRARIAN Work Phone: Comment on above: Test not performed Start: 09-10-2024 Antibody to SS-A measurement MICHELLE MAST [employer]PUT[employer] Work Phone: Comment on above: Test not performed Start: 09-10-2024 Autoantibody measurement MICHELLE MAST [employer] Work Phone: Comment on above: Test not performed Start: 09-10-2024 Ceruloplasmin measurement MICHELLE MAST [employer] Work Phone: Comment on above: Performed at: [address] [id number] Director: Gilles Carey PhD, Phone: [phone] Start: 09-10-2024 CHISELER HEAD antibody measurement MICHELLE MAST [employer] Work Phone: Comment on above: Test not performed Start: 09-10-2024 Total iron binding c apacity measurement MICHELLE MAST [employer] Work Phone: Start: 09-10-2024 Vitamin D, 25-hydrox y measurement MICHELLE MAST [employer] Work Phone: Comment on above: Vitamin D StatusDefi ciency: <20 ng/mL (50nmol/L)Insufficiency: 20-30 ng/mL (50-75 nmol/L)Sufficiency: 30-100 ng/mL (75-250 nmol/L)Toxicity: >100 ng/mL (>250 nmol/L) Start: 09-02-2024 Procedure MICHELLE Blank JEFF Work Phone: Comment on above: Test Ordered: [id number] Enhanced Liver Fibrosis (ELF)ELF(TM) Score 8.18 BN [...] STELLAR trials. J Hepatol. 2020 Aug;73(1):26-39.Performed at: [facility] [address] [id number] Director: Juana Lee MD, Phone: [phone] at: [facility] [address] [id number] Director: Gilles Carey PhD, Phone: [phone] Start: 08-05-2024 Ultrasound elastogra phy of liver MICHELLE DOMINIQUE JEFF Work Phone: Start: 07-30-2024 Chocolate ARASELIT MICHELLE Landaverde AST [employer]IAN Work Phone: Start: 07-30-2024 Food RAST MICHELLE Blank COMPUTER [employer]IAN Work Phone: Start: 07-30-2024 Hepatitis A virus [...] HAVtotal antibody results to IgM (e.g., panel #[id number] HAVAntibody w/ Rfx).Performed at: [facility] [address] [id number] Director: Gilles Carey PhD, Phone: [phone] Start: 07-30-2024 Hepatitis C antibody measurement MICHELLE [...] HCV Quant by PCR testing - HCVPCR #[id number] Non Reactive: < 0.8 Equivocal: >/= 0.8 [...] Detail Author Start: 09-10-2024 Cytoplasmic ANCA Screen [facility] Start: 09-10-2024 Mitochondria Ab [Pre sence] in Serum [facility] Start: 07-24-2024 [facility] Start: 02-09-2022 Patient discharge [facility] Work Phone: Start: 02-09-2022 [facility] Work Phone: Start: 02-05-2022 Application of abdom inal corset [facility] Work Phone: Start: 02-04-2022 End: 02-05-2022 [facility] Work Phone: Start: 02-04-2022 Administration of medication [facility] Work Phone: Start: 02-04-2022 Ambulation therapy management [facility] Work Phone: Start: 02-04-2022 Application of device [facility] Work Phone: Start: 02-04-2022 Application of intermittent pneumatic compression device [facility] Work Phone: Start: 02-04-2022 Assessment of risk o f venous thromboembolism [facility] Work Phone: Start: 02-04-2022 Catheterization of vein [facility] Work Phone: Start: 02-04-2022 Deep breathing and coughing exercises [facility] Work Phone: Start: 02-04-2022 Exercises [facility] Work Phone: Start: 02-04-2022 Incentive spirometry [facility] Work Phone: Start: 02-04-2022 Measuring intake and output [facility] Work Phone: Start: 02-04-2022 Notification of physician [facility] Work Phone: Start: 02-04-2022 Procedure discontinued [facility] Work Phone: Start: 02-04-2022 Provision of activit y privileges [facility] Work Phone: Start: 02-04-2022 Vital signs measurements [facility] Work Phone: Start: 02-04-2022 Wound care [facility] Work Phone: Start: 02-04-2022 Application of abdom inal corset [facility] Work Phone: Start: 02-04-2022 Admission procedure [facility] Work Phone: Start: 02-04-2022 Consultation [facility] Work Phone: Start: 02-01-2022 Blood count complete auto&auto difrntl wbc COMPLETE CBC W/AUTO DIFF WBC [facility] Work Phone: Start: 02-01-2022 Collection venous bl ood venipuncture ROUTINE VENIPUNCTURE [facility] Work Phone: Start: 02-01-2022 Comprehensive metabo lic panel COMPREHEN METABOLIC PANEL [facility] Work Phone: Start: 02-01-2022 Creatinine other source ASSAY OF URINE CREATININE [facility] Work Phone: Start: 02-01-2022 Culture bacterial quanttative colony count urine URINE CULTURE/COLONY COUNT [facility] Work Phone: Start: 02-01-2022 Culture bct isol&prs mptv id isolate ea urine URINE BACTERIA CULTURE [facility] Work Phone: Start: 02-01-2022 Lactate dehydrogenase ldh LACT ATE (LD) (LDH) ENZYME [facility] Work Phone: Start: 02-01-2022 Protein total xcpt refractometry urine ASSAY OF PROTEIN URINE [facility] Work Phone: Start: 01-27-2022 End: 01-28-2022 [facility] Work Phone: Start: 01-28-2022 Patient discharge [facility] Work Phone: Start: 01-27-2022 Nonstress test [facility] Work Phone: Start: 01-27-2022 Obstetric monitoring [facility] Work Phone: Start: 01-27-2022 Vital signs measurements [facility] Work Phone: Start: 01-27-2022 [facility] Work Phone: Start: 01-17-2022 Nonstress test [facility] Work Phone: Start: 01-17-2022 Obstetric monitoring [facility] Work Phone: Start: 01-17-2022 Vital signs measurements [facility] Work Phone: Start: 01-17-2022 End: 01-17-2022 [facility] Work Phone: Start: 01-17-2022 [facility] Start: 11-26-2021 Nonstress test [facility] Work Phone: Start: 11-26-2021 Obstetric monitoring [facility] Work Phone: Start: 11-26-2021 Vital signs measurements [facility] Work Phone: Start: 11-26-2021 [facility] Work Phone: Start: 11-26-2021 Patient discharge [facility] Work Phone: Start: 08-23-2021 [facility] Start: 08-23-2021 Chlamydia deoxyribon ucleic acid detection [facility] Work Phone: Start: 10-20-2018 Influenza vaccination INFLUENZ A VACCINE (Season Ended) [facility] Start: 10-20-2017 Influenza vaccination SEQUENTI AL INFLUENZA VACCINE (#1) [facility] Start: 2017 Third diphtheria, te tanus and acellular pertussis (DTaP) vaccination TDAP (ADULT) [facility] Start: 2016 Tetanus vaccination [facility] Start: 2014 Screening for Chlamy karen trachomatis CHLAMYDIA SCREEN [facility] Start: 2013 Vaccination for pollo n papillomavirus HPV VACCINE ADOL (1 - Female 3-dose series) [facility] Start: 07-06-2011 HIV screening HIV SCREENING DISCUSSION [facility] Start: 2009 Vaccination for pollo n papillomavirus HPV VACCINES (1 of 3 - Female 3-dose series) [facility] Start: 1998 GONORRHEA SCREEN GONORRHEA SCREEN AV [facility] Start: 1998 Tetanus vaccination TETANUS EVERY 10 YR [facility] Alpha 1 antitrypsin [Mass/volume] in Serum or Plasma [facility] Antibody to lupus La protein measurement [facility] Antibody to SS-A measurement [facility] Bacteria identified in Urine by Culture [facility] Work Phone: Basic metabolic 2008 panel with ionized calcium - Serum or Plasma [facility] Beta-hemolytic Streptococcus culture [facility] Work Phone: C reactive protein [Mass/volume] in Serum or Plasma [facility] Ceruloplasmin [Mass/volume] in Serum or Plasma [facility] Cytoplasmic ANCA Screen [facility] DNA double strand Ab [Units/volume] in Serum [facility] Ferritin [Mass/volum e] in Serum or Plasma [facility] End: 10-24-2018 Gastrointestinal pathogens DNA and RNA panel - Stool by LIANA with non-probe detection Stool/GI PCR Panel Routine Diarrhea, unspecified type 1 Occurrences starting 10/24/2017 until 10/24/2018 [facility] Comment on above: 1 Occurrences starti ng 10/24/2017 until 10/24/2018 Group B Streptococcu s Culture Group B Streptococcus Culture [facility] Work Phone: Hemoglobin A1c/Hemoglobin.total in Blood [facility] Hepatic function panel [facility] Hepatitis A virus Ab [Presence] in Serum [facility] Hepatitis C antibody measurement [facility] IgA [Mass/volume] in Serum or Plasma [facility] Iron and Iron bindin g capacity panel - Serum or Plasma [facility] Lipid 1996 panel - S aggie or Plasma [facility] Liver stiffness by US.transient elastography [facility] Mitochondria Ab [Pre sence] in Serum [facility] Neisseria gonorrhoea e rRNA [Presence] in Unspecified specimen by LIANA with probe detection [facility] Work Phone: Path report.final Dx Spec [facility] Patient Education [facility] Work Phone: Patient referral [facility] Work Phone: PCR test for Chlamyd ia trachomatis [facility] Work Phone: Procedure [facility] Work Phone: Procedure [facility] Smooth muscle Ab [Presence] in Serum [facility] Thyroid stimulating hormone measurement [facility] Tissue transglutamin ase IgA Ab [Units/volume] in Serum [facility] US Pelvis [facility] Vitamin D, 25-hydrox y measurement [facility] Vitamin D, 25-hydrox y measurement [facility] Immunizations Immunization Date Immunization Notes Care Provider Heber lowe 06-17-2024 Hepatitis B vaccine (recombinant), CpG adjuvanted MICHELLE MAST [employer]PUT[employer] Work Phone: [facility] 12-12-2016 influenza, injectabl e, quadrivalent, preservative free MICHELLE MAST [employer] Work Phone: [facility] 08-02-2016 tetanus toxoid, redu ravinder diphtheria toxoid, and acellular pertussis vaccine, adsorbed MICHELLE MAST [employer] Work Phone: [facility] 05-10-2016 meningococcal B vacc ine, fully recombinant MICHELLE MAST [employer] Work Phone: [facility] 03-29-2016 meningococcal B vacc ine, fully recombinant MICHELLE MAST [employer]PUT[employer]IAN Work Phone: [facility] 11-24-2015 meningococcal polysaccharide (groups A, C, Y and W-135) diphtheria toxoid conjugate vaccine (MCV4P) MICHELLE MAST [employer] Work Phone: [facility] 07-22-2013 hepatitis A vaccine, pediatric/adolescent dosage, 2 dose schedule MICHELLE MAST [employer]PUT[employer]IAN Work Phone: [facility] 01-21-2013 hepatitis A vaccine, pediatric/adolescent dosage, 2 dose schedule MICHELLE MAST [employer]IAN Work Phone: [facility] 01-01-2013 influenza, injectabl e, quadrivalent, preservative free MICHELLE MAST COM[employer] Work Phone: [facility] 03-06-2011 influenza, injectabl e, quadrivalent, preservative free MICHELLE MAST COMPUT[employer] Work Phone: [facility] 11-24-2010 human papilloma viru s vaccine, bivalent MICHELLE MAST [employer]IAN Work Phone: [facility] 07-21-2010 human papilloma viru s vaccine, bivalent MICHELLE MAST [employer] Work Phone: [facility] 07-21-2010 varicella virus vaccine TESS TA MAST COMPUTER [employer]IAN Work Phone: [facility] 05-18-2010 human papilloma viru s vaccine, bivalent MICHELLE MAST COMPUT[employer]IAN Work Phone: [facility] 05-18-2010 meningococcal polysaccharide (groups A, C, Y and W-135) diphtheria toxoid conjugate vaccine (MCV4P) MICHELLE MAST [employer] Work Phone: [facility] 05-18-2010 tetanus toxoid, redu ravinder diphtheria toxoid, and acellular pertussis vaccine, adsorbed MICHELLE MAST [employer]PUT[employer] Work Phone: [facility] 11-10-2003 diphtheria, tetanus toxoids and acellular pertussis vaccine MICHELLE MAST COMPUT[employer] Work Phone: [facility] 11-10-2003 measles, mumps and rubella virus vaccine MICHELLE MAST COMPUT[employer] Work Phone: [facility] 11-10-2003 poliovirus vaccine, inactivated MICHELLE MAST COMPUT[employer]IAN Work Phone: [facility] 12-15-1999 diphtheria, tetanus toxoids and acellular pertussis vaccine MICHELLE MAST COMPUT[employer] Work Phone: [facility] 12-15-1999 haemophilus influenz ae type b vaccine, PRP-T conjugate MICHELLE MAST COMPUT[employer]IAN Work Phone: [facility] 07-06-1999 measles, mumps and rubella virus vaccine MICHELLE MAST COMPUT[employer]IAN Work Phone: [facility] 07-06-1999 poliovirus vaccine, inactivated MICHELLE MAST COMPUT[employer]IAN Work Phone: [facility] 07-06-1999 varicella virus vaccine TESS TA MAST COMPUT[employer]IAN Work Phone: [facility] 02-09-1999 diphtheria, tetanus toxoids and acellular pertussis vaccine MICHELLE MAST COMPUTER [employer]IAN Work Phone: [facility] 02-09-1999 haemophilus influenz ae type b conjugate and Hepatitis B vaccine MICHELLE MAST COMPUTER [employer]IAN Work Phone: [facility] 1998 diphtheria, tetanus toxoids and acellular pertussis vaccine MICHELLE MAST COMPUT[employer]IAN Work Phone: [facility] 1998 haemophilus influenz ae type b vaccine, PRP-T conjugate MICHELLE MAST COMPUTER [employer]IAN Work Phone: [facility] 1998 poliovirus vaccine, inactivated MICHELLE MAST COMPUT[employer]IAN Work Phone: [facility] 1998 diphtheria, tetanus toxoids and acellular pertussis vaccine MICHELLE MAST COMPUTER [employer]IAN Work Phone: [facility] 1998 haemophilus influenz ae type b conjugate and Hepatitis B vaccine MICHELLE MAST COMPUTER [employer]IAN Work Phone: [facility] 1998 poliovirus vaccine, inactivated MICHELLE MAST COMPUTER [employer]IAN Work Phone: [facility] 1998 hepatitis B vaccine, pediatric or pediatric/adolescent dosage MICHELLE MAST COMPUTER [employer]RARIAN Work Phone: [facility] Payers Date Payer Category Payer Unknown [id number] 2024 Self-pay [id number] 2023 Unknown [id number] 2022 Unknown [id number] 2018 Unknown 2018 Unknown [employer] [id number] 2018-Present [phone] [id number]. [id number] 1998 Unknown [id number] 2.16.840.1.740146.3.579.2. 196 1998 Unknown [id number] 2.16.840.1.137863.3.579.2. 627 1998 Unknown [id number] 2.16.840.1.100928.3.579.2. 627 1998 Unknown [id number] 2.16.840.1.394571.3.579.2. 627 1998 Unknown [id number] 2.16.840.1.836029.3.579.2. 627 1998 Unknown [id number] 2.16.840.1.023719.3.579.2. 627 1998 Unknown [id number] 2.16.840.1.118507.3.579.2. 627 1998 Unknown [id number] 2.16.840.1.364690.3.579.2. 627 1998 Unknown [id number] 2.16.840.1.203154.3.579.2. 627 1998 Unknown [id number] 2.16.840.1.946905.3.579.2. 627 1998 Unknown [id number] 2.16.840.1.216807.3.579.2. 62 1998 Unknown [id number] 2.16.840.1.767633.3.579.2. 62 1998 Unknown [id number] 2.16.840.1.668020.3.579.2. 62 1998 Unknown [id number] 2.16.840.1.997141.3.579.2. 627 1959 Unknown [id number] Private Health Insurance [facility] [id number] Unknown [id number] Unknown [id number] 2.16.840.1.114614.3.579.2. 462 Unknown [id number] 2.16.840.1.066157.3.579.2. 462 Unknown [id number] 2..840.1.786930.3.579.2. 462 Unknown [id number] 2..840.1.440270.3.579.2. 462 Unknown [id number] 2..840.1.930685.3.579.2. 462 Unknown [id number] 2..840.1.305804.3.579.2. 462 Unknown [id number] ..840.1.071658.3.579.2. 462 Unknown [id number] 2..840.1.624355.3.579.2. 462 Unknown [id number] 2.16.840.1.958595.3.579.2. 462 Unknown [id number] 2..840.1.833741.3.579.2. 462 Unknown [id number] 2.16.840.1.666157.3.579.2. 462 Unknown [id number] 2.16.840.1.833489.3.579.2. 462 Unknown [id number] 2.16.840.1.614097.3.579.2. 462 Unknown [id number] 2.16.840.1.005807.3.579.2. 462 Unknown [id number] 2.16.840.1.313193.3.579.2. 462 Unknown [id number] 2.16.840.1.270803.3.579.2. 462 Unknown [id number] 2.16.840.1.070955.3.579.2. 462 Unknown [id number] 2.16.840.1.172455.3.579.2. 462 Unknown [id number] 2.16.840.1.389188.3.579.2. 462 Unknown [id number] 2.16.840.1.671863.3.579.2. 462 Unknown [id number] 2.16.840.1.259472.3.579.2. 462 Unknown [id number] 2.16.840.1.719033.3.579.2. 462 Unknown [id number] 2.16.840.1.542828.3.579.2. 462 Unknown [id number] 2.840.1.312253.3.579.2. 462 Unknown [id number] 2.16.840.1.218193.3.579.2. 462 Social History Date Type Detail Facility Start: 10-24-2017 Tobacco smoking status NHIS Former smoker [facility] Sex Assigned At Not on file [facility] Start: 07-12-2018 End: 11-20-2024 Tobacco smoking status NHIS Never smoker [facility] Start: 02-22-2021 End: 02-04-2022 Tobacco smoking status LAIS Unknown if ever smoked [facility] Start: 06-12-2020 None [facility] Start: 06-12-2020 Spouse/ Signif icant Other [facility] Start: 2000 Sex Assigned At Female [facility] Tobacco smoking status No Smoking Status Entered [facility] Gender Identity Identifies as fe male gender (finding) [facility] Sexual Orientation Heterosexual (finding) [facility] NEGATED: Highlighted row Not [facility] Goals Date Patient Goal Desired Activity /State Functional Status Date Assessment Result Facility 08-07-2023 Functional Status Independent [facility] 06-26-2023 Functional Status Standard Safet y ID band on, Call device within reach, Bed in low position, Wheels locked, Upper/Half-Length side-rails up, Bedside Cart Locked, Safety level maintained [facility] 05-16-2023 Functional Status Independent [facility] 05-16-2023 Functional Status Independent [facility] 02-22-2023 Functional Status Independent [facility] 02-22-2023 Functional Status ID band on, Call device within reach, Bed in low position, Wheels locked, Upper/Half-Length side-rails up, Safety level maintained [facility] Mental Status Date Assessment Result Facility 08-07-2023 Mental Status Orientation Oriented x 4 [facility] 08-07-2023 Mental Status [facility] 06-26-2023 Mental Status Orientation Oriented x 4 [facility] 05-16-2023 Mental Status Orientation Oriented x 4 [facility] 05-16-2023 Mental Status [facility] 02-22-2023 Mental Status Orientation Oriented x 4 [facility] 02-22-2023 Mental Status [facility] 02-09-2022 Cognitive function Level Of Cons ciousness Awake;Alert;Appropriate;Follow s Commands [facility] Work Phone: 02-08-2022 Cognitive function Appropriate [facility] Work Phone: Clinical Notes 01-28-2022 to 11-24-2024 Note Date & Type Note Facility 11-24-2024 Progress note [facility] 11-24-2024 Progress note Note Date/Time November 24, 2024 3:01pm [address], [address] [place] [address] OFFICE VISIT Date of Service: 11/24/24 MR#: [id number] Acct: [id number] Name: JUANITA PAULINO Rep #: [id number] : 2000 Provider: DELMIS Yu Age/Sex: 24/F Location: [facility] Status: Signed Intake Vital Signs 10/30/24 [...] - discuss OCP Chief Complaint: IUD removal Chemical Etch Operator Required: No Is patient in pain?: No [...] status: 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 travel: No sexually active: [...] 11/24/24 1505 <Electronically signed by Simin chavez RECRUITMENT SPECIALIST RECRUITMENT SPECIALIST-C> Date _ Simin Yu RECRUITMENT SPECIALIST RECRUITMENT SPECIALIST-C Cosigner Signature: Date (if applicable) CC: ~ [facility] Work Phone: [phone]) 715-353710-02-2025 Radiology Diagnostic study note [facility] [address] [address] Pelvic w/ Transvaginal MR#: [id number] Acct: [id number] Name: JUANITA PAULINO Rep #: [id number] : 2000 F 24 From: Renetta Love MD PCP: JEFF VELASCO Status: REG CLI Study:Pelvic w/ Transvaginal Date of Exam: 11/19/24 Exam# [id number] Ordering Dr: Teresa Lala MD PROCEDURE: PELVIC [...] is incompletely distended US/Pelvic w/ Transvaginal IMPRESSION: Certified Addiction Counselor notes IUD in the lower uterine segment, it does not extend to the fundus. Simple left adnexal cyst, no specific follow-up No free fluid Reading Location: [facility] CC: Dr. Teresa Wilkinson MD; JEFF VELASCO ~ Photographic Process Screen Maker: Signed [facility]09-02-2025 Progress [facility] [address] [place] [address] OFFICE VISIT Date of Service: 10/21/24 MR#: [id number] Acct: [id number] Name: JUANITA PAULINO Rep #: [id number] : 2000 Provider: Dr. 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 Note Date/Time October 21, 2024 3:02pm [facility] [address] [place] [address] OFFICE VISIT Date of Service: 10/21/24 MR#: [id number] Acct: [id number] Name: JUANITA PAULINO Rep #: [id number] : 2000 Provider: Dr. 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 travel: No sexually active: [...] MD Cosigner Signature: Date (if applicable) CC: RECRUITMENT SPECIALISTSourav Larose; JEFF VELASCO ~ [facility] Work Phone: 1(847) 522-672308-26-2025 Nuclear medicine Diagnostic study note [facility] Imaging Services [address] [place] [address] [id number] Hepatobilliary Img w/Pharm Int MR#: [id number] Acct: [id number] Name: JUANITA PAULINO Rep #: [id number] : 2000 F 24 From: Jacob Rodriguez MD PCP: JEFF VELASCO Status: REG CLI Study:Hepatobilliary Img w/Pharm Int Date of Exam: 10/14/24 Exam# [id number] Ordering Dr: Roxanne De La Curz PROCEDURE: HEPATOBILLIARY IMG W/PHARM INT, plus gallbladder [...] 2. Negative hepatobiliary scan, otherwise. Reading Location: [place] [address] CC: JEFF VELASCO; KO Ram ~ Photographic Process Screen Maker: Signed [facility]08-03-2025 Radiology Diagnostic study note [facility] Services [address] [place] [address] [id number] Pelvic w/ Transvaginal MR#: [id number] Acct: [id number] Name: JUANITA PAULINO Rep #: [id number] : 2000 F 24 From: Kiran Pierce MD PCP: JEFF VELASCO Status: REG CLI Study:Pelvic w/ Transvaginal Date of Exam: 09/19/24 Exam# [id number] Ordering Dr: Simin Yu RECRUITMENT SPECIALIST RECRUITMENT SPECIALIST-C PROCEDURE: PELVIC W/ TRANSVAGINAL 09/19/2024 REASON FOR [...] w/ Transvaginal IMPRESSION: As above. [facility] CC: DELMIS Yu; JEFF VELASCO ~ Photographic Process Screen Maker: Signed [facility]06-17-2025 Radiology Diagnostic study note [facility] Services [address] [place], [place] [id number] ABD Limited w/ Elastography MR#: [id number] Acct: [id number] Name: JUANITA PAULINO Rep #: [id number] : 2000 F 24 From: Uzair Curran MD PCP: Dr. Tiffany Marks MD Status: REG CLI Study:ABD Limited w/ Elastography Date of Exa m: 08/05/24 Exam# [id number] Ordering Dr: Ashley Larose PROCEDURE: ABD LIMITED [...] 7.3 cm. US/ABD Limited w/ Elastography IMPRESSION: Ifbp-ks-rdumuyaf hepatic fibrosis. Splenomegaly. Hepatomegaly and diffuse fatty [...] measurement may be in question. Reading Location: [place] [address] CC: DELMIS Larose; Dr. 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 [facility] Work Phone: 1(138) 546-182506-11-2025 Evaluation note* Diagnosis Onset Date Resolution Status Admit Date Belching acute July 30 8:17am Diarrhea acute July 30 8:17am Fecal incontinence acute July 202024 8:17am Fecal urgency acute July 30, 2024 8:17am Heartburn acute July 30 8:17am Lower abdominal pain acute July 30, 2024 8:17am Nausea & vomiting acute July 302024 8:17am Steatosis, 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 Work Phone: 1(992) 555-722106-11-2025 Evaluation note* Diagnosis Onset Date Resolution Status [...] D deficiency acute September 05, 2024 7:57am [facility] Work Phone: 1(220) 550-825706-11-2025 Evaluation note* Diagnosis Onset Date Resolution Status [...] ovarian syndrome) acute September 18, 2024 8:33am [facility] Work Phone: 1(439) 698-512506-11-2025 Evaluation note* Diagnosis Onset Date Resolution Status [...] 2024 10:52am Biliary dyskinesia acute Sept2024 2:35pm [facility] Work Phone: 1(485) 368-452506-11-2025 Evaluation note* Diagnosis Onset Date Resolution Status [...] IUD removal noneactive November 24, 2024 2:37pm [facility] Work Phone: 1(159) 693-888406-05-2025 Radiology Diagnostic study note [facility] Services [address] [place], [place] [id number] Transvaginal Non- MR#: [id number] Acct: [id number] Name: JUANITA PAULINO Rep #: [id number] : 2000 F 24 From: Jacob Rodriguez MD PCP: Dr. Tiffany Marks MD Status: [facility] ER Study:Transvaginal Non- Date of Exam: 07/24/24 Exam# [id number] Ordering Dr: Oren Maldonado DO PROCEDURE: TRANSVAGINAL [...] cyst. 2. Negative examination, otherwise. Reading Location: [id number] CC: Dr. Tiffany Marks MD; Dr. Zurdo Maldonado DO ~ Photographic Process Screen Maker: Signed [facility]06-18-2024 Hospital Discharge instructions Patient Education [...] thin towel or cloth. You may use wksx-ile-rxmwoyj pain medicine (NSAIDS or nonsteroidal anti- inflammatory [...] or is irritated You re-injure your ankle 8844-5291 [employer]. [address] [place] [address], [place] [address]. All rights reserved. This information is not intended as a substitute for professional medical care. Always follow yourhealthcare professional's instructions. Follow Up Care 08/07/2023 11:37:04 With:HARRIET BARAHONA Address: [address] [place] [address], [address] [place] [phone] Business (1) When:2-4 days Comments:Return to ED if symptoms worsen With:MICHELLE DOMINIQUE Address: [address] [place] [address] [phone] Business (1) When:2-4 days [facility] 06-18-2024 Note Discharge Instructions Thank you for allowing [facility] to assist you with your healthcare needs. [...] Up with HARRIET BARAHONA When:Within 2-4 days Where:[facility], [address] [place] [address] [phone] Business (1) Additional Information: Return to ED if symptoms worsen Follow Up with MICHELLE DOMINIQUE When:Within 2-4 days Where:[address] [place] [address] [phone] Business (1) Allergies NKA Medications Please ask [...] thin towel or cloth. You may use htmp-dcc-judlhke pain medicine (NSAIDS or nonsteroidal anti- inflammatory [...] or is irritated You re-injure your ankle 3657-9463 [employer]. [address] [place] [address]. All rights reserved. This information is not intended as a substitute for professional medical care. Always follow yourhealthcare professional's instructions. Additional Information VACCINATE! IT SAVES LIVES! Members of the community who have not yet received the COVID-19 vaccine and would like to receive it can visit one of [facility] vaccine clinics. There are many vaccine clinic locations within the [facility]. For locations and available times, please visit www.gettheshot.[email or web address].[place].gov/. It is important to note that some COVID mobile vaccine clinics are held outdoors and may be canceled in rainy or stormy conditions. To learn more about pediatric vaccinations (ages 5-11), we invite you to visit the [facility] webpage. https://www.[facility].org/pages/7298-Kgpnf-Bzfepxsajjt-Ifhvzsfasq-Hzjto-Npz stions.htmlTo learn more about the COVID-19 vaccine, we invite you to visit the CDC website for a list of frequently asked questions. https://www.cdc.gov/coronavirus/2019-ncov/vaccines/faq.html [facility] Patient Portal Access Instructions: Stay connected with your healthcare team and access your personal medical information anytime with the [facility] Patient Portal. If you would like a full copy of your medical records please contact the [facility] Medical Records Department Sunday through Moiz between 8a.m. and 4:30p.m. Please follow the directions below to access the portal: 1.Access the email account you provided upon registration to the [facility].2.Look for an invitation email from [facility].3.Open the email and access the invitation link: Accept Invitation to [facility]4.Fill in the required denson to create your [...] you will allow to register on the [facility] Patient Portal for access to your information. You can also access the [facility] Patient Portal on the SolveBoard. Simply click on Health Records under [employer] and then click on the [facility] logo. [...] Call your local pharmacy or go to http://bit.ly/0R6Nn1a to find one close to you.3.Make use of household items: Use cat litter or old coffee grounds to dispose medications if other options arenot available. Mix your drugs with these household products, seal them in an airtight container andthrow it into the garbage. Call [facility]: [phone] to be sure your drugs can be [...] aware that I should contact my doctor. Patient/Coremaker Floor Signature: Date/Time: Relationship to Patient: Witness Name/Signature: Date/Time: [facility]06-18-2024 Note ORIGINAL HISTORY: Pain COMPARISON: [...] Date: 08/07/2023 12:22:15 PM Ordering Provider: ZEYNEP [facility]alyan [id number] Hospital Discharge instructions Patient Education 06/26/2023 14:58:40 [...] or water and you are getting dehydrated 0190-2190 [employer]. [address] [place] [address]. All rights reserved. This information is not intended as a substitute for professional medical care. Always follow yourhealthcare professional's instructions. Follow Up Care 06/26/2023 12:01:13 With:Go to emergency room if symptoms worsen Address:Unknown When:2-4 days With:MICHELLE DOMINIQUE APRN-KENZIE Address: [address] [facility] [place] [phone] When:2-4 days [facility] 05-07-2024 Emergency department Discharge summary Discharge Instructions Thank you for allowing [facility] to assist you with your healthcare needs. [...] MICHELLE DOMINIQUE When Within 2-4 days Where: [address] [place] [address] [place] [address]- [phone] Allergies NKA Medications Please ask your primary [...] or water and you are getting dehydrated 0074-3830 [employer]. [address] [place] [address]. All rights reserved. This information is not intended as a substitute for professional medical care. Always follow yourhealthcare professional's instructions. Additional Information VACCINATE! IT SAVES LIVES! Members of the community who have not yet received the COVID-19 vaccine and would like to receive it can visit one of [facility] vaccine clinics. There are many vaccine clinic locations within the [facility]. For locations and available times, please visit www.gettheshot.coronavirus.[place].gov/. It is important to note that some COVID mobile vaccine clinics are held outdoors and may be canceled in rainy or stormy conditions. To learn more about pediatric vaccinations (ages 5-11), we invite you to visit the [facility] webpage. https://www.[facility].org/pages/0033-Dctbn-Edzxwfqjpfj-Scioygqhhy-Adagn-Rhk stions.htmlTo learn more about the COVID-19 vaccine, we invite you to visit the CDC website for a list of frequently asked questions. https://www.cdc.gov/coronavirus/2019-ncov/vaccines/faq.html [facility] Patient Portal Access Instructions: Stay connected with your healthcare team and access your personal medical information anytime with the [facility] Patient Portal. If you would like a full copy of your medical records please contact the [facility] Medical Records Department Sunday through Sunday between 8a.m. and 4:30p.m. Please follow the directions below to access the portal: 1.Access the email account you provided upon registration to the hospital.2.Look for an invitation email from [facility].3.Open the email and access the invitation link: Accept Invitation to [facility]4.Fill in the required denson to create your [...] you will allow to register on the [facility] Patient Portal for access to your information. You can also access the [facility] Patient Portal on the eKonnekt perez. Simply click on Health Records under [employer] and then click on the [facility] logo. [...] Call your local pharmacy or go to http://bit.Compiere/0W9Fz0p to find one close to you.3.Make use of household items: Use cat litter or old coffee grounds to dispose medications if other options arenot available. Mix your drugs with these household products, seal them in an airtight container andthrow it into the garbage. Call [facility]: [phone] to be sure your drugs can be [...] aware that I should contact my doctor. Patient/Coremaker Floor Signature: Date/Time: Relationship to Patient: Witness Name/Signature: Date/Time: [facility]05-07-2024 Note ORIGINAL EXAMINATION: COMPLETE ABDOMINAL [...] Date: 06/26/2023 2:29:44 PM Ordering Provider: FELIPA [facility]05-06-2024 Evaluation + Plan note Future Scheduled Tests Laboratory* Stool Gastrointestinal Panel 06/25/23 [facility] 03-27-2024 Hospital Discharge instructions Patient Education 05/16/2023 17:57:52 Dizziness, Uncertain Cause Dizziness (Uncertain Cause) Dizziness is a common symptom. It may be described as lightheadedness, spinning, or feeling like you are going to faint. Dizziness can have many causes. Be sure to tell the healthcare provider about: All medicines you take, including prescription, hpud-jrg-tuxdvwf, herbs, and supplements Any other symptoms you [...] Chest, arm, neck, back, or jaw pain 2220-9478 [employer]. [address] [place] [address]. All rights reserved. This information is not intended as a substitute for professional medical care. Always follow yourhealthcare professional's instructions. Follow Up Care 05/16/2023 16:41:43 With:MICHELLE DOMINIQUE Address: [address] [place] [phone] When:2-4 days [facility] 03-27-2024 Note Discharge Instructions Thank you for allowing [facility] to assist you with your healthcare needs. The following is importantdischarge information regarding your hospital visit. Diagnosis from Today's Visit Dizziness Dizziness What to Do Next Instructions from Your Care Team No qualifying data available. Post Acute Orders No qualifying data available. You Need to Schedule the Following Appointments Follow Up with MICHELLE DOMINIQUE When Within 2-4 days Where: [address] [place] [phone] [phone] Allergies NKA Medications Please ask your primary [...] about: All medicines you take, including prescription, yslc-fva-byhacev, herbs, and supplements Any other symptoms you [...] Chest, arm, neck, back, or jaw pain 7778-1796 [employer]. [address] [place] [address]. All rights reserved. This information is not intended as a substitute for professional medical care. Always follow yourhealthcare professional's instructions. Additional Information VACCINATE! IT SAVES LIVES! Members of the community who have not yet received the COVID-19 vaccine and would like to receive it can visit one of [facility] vaccine clinics. There are many vaccine clinic locations within the [facility]. For locations and available times, please visit www.gettheshot.coronavirus.[place].gov/. It is important to note that some COVID mobile vaccine clinics are held outdoors and may be canceled in rainy or stormy conditions. To learn more about pediatric vaccinations (ages 5-11), we invite you to visit the [facility] webpage. https://www.[facility].org/pages/6364-Xabzb-Seoubmhplgd-Vnruzwzhrk-Yaijl-Vju stions.htmlTo learn more about the COVID-19 vaccine, we invite you to visit the CDC website for a list of frequently asked questions. https://www.cdc.gov/coronavirus/2019-ncov/vaccines/faq.html [facility] Patient Portal Access Instructions: Stay connected with your healthcare team and access your personal medical information anytime with the [facility] Patient Portal. If you would like a full copy of your medical records please contact the [facility] Medical Records Department Sunday through Sunday between 8a.m. and 4:30p.m. Please follow the directions below to access the portal: 1.Access the email account you provided upon registration to the hospital.2.Look for an invitation email from [facility].3.Open the email and access the invitation link: Accept Invitation to [facility]4.Fill in the required denson to create your account. Sign into [email or web address] with your username and password that you [...] you will allow to register on the [facility] Patient Portal for access to your information. You can also access the [facility] Patient Portal on the SolveBoard. Simply click on Health Records under [employer] and then click on the [employer] logo. HOW TO SAFELY DISPOSE OF PRESCRIPTION [...] Call your local pharmacy or go to http://CommonBond.Compiere/6D4Bn7y to find one close to you.3.Make use of household items: Use cat litter or old coffee grounds to dispose medications if other options arenot available. Mix your drugs with these household products, seal them in an airtight container andthrow it into the garbage. Call [facility]: [phone] to be sure your drugs can be [...] aware that I should contact my doctor. Patient/Coremaker Floor Signature: Date/Time: Relationship to Patient: Witness Name/Signature: Date/Time: [facility]03-27-2024 NoteSinus rhythm Borderline intraventricular conduction delay Electronic Signature: IVANA LANGE MD 05/16/2023 17:17:25[facility] 02-13-2024 Hospital Discharge instructions Patient [...] foods again, start with small amounts of ndzl-cd-ozenda, low- fat foods. These include apple sauce, [...] increase stomach acid. Don't use aspirin or mvlr-dmn-rjjdomd pain and fever medicines, if possible. This includes nonsteroidal anti-inflammatory drugs (NSAIDs). Lose excess weight. Finish eating at least 2 hours before you go to bed or lie down. Raise the head of your bed. 0192-2013 [employer]. [address] [place] [address]. All rights reserved. This information is not intended as a substitute for professional medical care. Always follow yourhealthcare professional's instructions. Follow Up Care 04/03/2023 14:09:03 With:JERROD RUANO DO Address: [address] [place] [phone] When:2-4 days [facility] 02-13-2024 Note Discharge Instructions Thank you for allowing [facility] to assist you with your healthcare needs. The following is importantdischarge information regarding your hospital visit. Diagnosis from Today's Visit Abdominal pain Abdominal pain What to Do Next Instructions from Your Care Team No qualifying data available. Post Acute Orders No qualifying data available. You Need to Schedule the Following Appointments Follow Up with JERROD RUANO DO When Within 2-4 days Where: [address] [place] [phone] [phone] Allergies NKA Medications Please ask your primary [...] may report side effects to FDA at 0-088-SEQ-0614. What other drugs will affect ondansetron? Ondansetron [...] interact with ondansetron. This includes prescription and oigw-quc-mhmnomo medicines, vitamins, and herbal products. Give a [...] to ensure that the information provided by [employer]. ('[employer]') is accurate, up-to-date, and complete, but no guarantee is made to that effect. Drug information contained herein may be time sensitive. [employer] information has been compiled for use by healthcare practitioners and consumers in the [place] and therefore [employer] does not warrant that uses outside of the [place] are appropriate, unless specifically indicated otherwise. [employer] drug information does not endorse drugs, diagnose patients or recommend therapy. [employer] drug information isan informational resource designed to [...] effective or appropriate for any given patient. [employer] does not assume any responsibility for any aspect of healthcare administered with the aid of information [employer] provides. The information contained herein is not intended to cover all possible uses, directions, precautions, warnings, drug interactions, allergic reactions, or adverse effects. If you have questions about the drugs you are taking, check with your doctor, nurse or pharmacist. Copyright 3821-4924 [employer]. Version: 16.. Revision Date: 09/21/2022. Education Materials [...] foods again, start with small amounts of fmeq-oh-lssyrv, low- fat foods. These include apple sauce, [...] increase stomach acid. Don't use aspirin or ybqf-szw-heswdsn pain and fever medicines, if possible. This includes nonsteroidal anti-inflammatory drugs (NSAIDs). Lose excess weight. Finish eating at least 2 hours before you go to bed or lie down. Raise the head of your bed. 9594-5294 [employer]. [address] [place] [address]. All rights reserved. This information is not intended as a substitute for professional medical care. Always follow yourhealthcare professional's instructions. Additional Information VACCINATE! IT SAVES LIVES! Members of the community who have not yet received the COVID-19 vaccine and would like to receive it can visit one of [facility] vaccine clinics. There are many vaccine clinic locations within the [facility]. For locations and available times, please visit www.gettheshot.coronavirus.[place].gov/. It is important to note that some COVID mobile vaccine clinics are held outdoors and may be canceled in rainy or stormy conditions. To learn more about pediatric vaccinations (ages 5-11), we invite you to visit the [facility] webpage. https://www.[facility].org/pages/4980-Scfwh-Yntacchqncu-Hdeplyugxy-Imxfm-Zrt stions.htmlTo learn more about the COVID-19 vaccine, we invite you to visit the CDC website for a list of frequently asked questions. https://www.cdc.gov/coronavirus/2019-ncov/vaccines/faq.html [facility] Access Instructions: Stay connected with your healthcare team and access your personal medical information anytime with the [facility]. If you would like a full copy of your medical records please contact the [facility] Medical Records Department Sunday through Sunday between 8a.m. and 4:30p.m. Please follow the directions below to access the portal: 1.Access the email account you provided upon registration to the [facility].2.Look for an invitation email from [facility].3.Open the email and access the invitation link: Accept Invitation to [facility]4.Fill in the required denson to create your account. Sign into [email or web address] with your username and password that you [...] you will allow to register on the [facility] Patient Portal for access to your information. You can also access the [facility] Patient Portal on the SolveBoard. Simply click on Health Records under [employer] and then click on the [facility] logo. HOW TO SAFELY DISPOSE OF PRESCRIPTION [...] Call your local pharmacy or go to http://CommonBond.Compiere/1F2Tn4k to find one close to you.3.Make use of household items: Use cat litter or old coffee grounds to dispose medications if other options arenot available. Mix your drugs with these household products, seal them in an airtight container andthrow it into the garbage. Call [facility]: [phone] to be sure your drugs can be [...] aware that I should contact my doctor. Patient/Coremaker Floor Signature: Date/Time: Relationship to Patient: Witness Name/Signature: Date/Time: [facility]02-13-2024 Note ORIGINAL EXAMINATION: CT OF [...] Sign Date: 04/03/2023 5:42:34 PM Ordering Provider: [facility]02-13-2024 Note ORIGINAL EXAMINATION: LIMITED ABDOMINAL [...] Sign Date: 04/03/2023 4:32:24 PM Ordering Provider: [facility]01-06-2024 Note. MICRO - Microbiology PROCEDURE: Urine Culture [*1] SOURCE: Urine, Clean Catch BODY SITE: COLLECTED DATE/TIME: 02/22/2023 18:16 EST RECEIVED DATE/TIME: 02/23/2023 15:03 EST START DATE/TIME: 02/23/2023 15:03 EST FREE TEXT SOURCE: FINAL REPORTS Final Report [] Verified Date/Time/Personnel: 02/24/2023 14:44 EST 50,000 - 100,000 cfu/ml Mixed growth consistent with normal urogenital isaac. Performing Locations *1: This test was performed at: [facility], [address] [place] [address], [id number] , [facility] ([place])02-22-2023 Note Discharge Instructions Thank you for allowing [facility] to assist you with your healthcare needs. [...] may report side effects to FDA at 7-912-FXU-7451. What other drugs will affect cephalexin? Tell your doctor about all your other medicines, especially: metformin; or probenecid. This list is not complete. Other drugs may affect cephalexin, including prescription and xjih-zax-xvzsmzg medicines, vitamins, and herbal products. Not all [...] to ensure that the information provided by [employer]. ('[employer]') is accurate, up-to-date, and complete, but no guarantee is made to that effect. Drug information contained herein may be time sensitive. [employer] information has been compiled for use by healthcare practitioners and consumers in the [place] and therefore [facility] does not warrant that uses outside of the [place] are appropriate, unless specifically indicated otherwise. [employer]'s drug information does not endorse drugs, diagnose patients or recommend therapy. [employer] drug information isan informational resource designed to [...] effective or appropriate for any given patient. [facility] does not assume any responsibility for any aspect of healthcare administered with the aid of information [facility] provides. The information contained herein is not intended to cover all possible uses, directions, precautions, warnings, drug interactions, allergic reactions, or adverse effects. If you have questions about the drugs you are taking, check with your doctor, nurse or pharmacist. Copyright 5543-2113 [facility]. Version: .. Revision Date: 09/20/2022. Education Materials [...] with you to plan treatment as needed. 0296-6608 [employer]. [address] [place] [address], [place] [address]. All rights reserved. This information is not [...] foods again, start with small amounts of kajn-vk-ifihtj, low- fat foods. These include apple sauce, [...] increase stomach acid. Don't use aspirin or oywr-gfl-lkcjksq pain and fever medicines, if possible. This includes nonsteroidal anti-inflammatory drugs (NSAIDs). Lose excess weight. Finish eating at least 2 hours before you go to bed or lie down. Raise the head of your bed. 9007-3463 [employer]. [address] [place] [address], [place] [address]. All rights reserved. This information is not intended as a substitute for professional medical care. Always follow yourhealthcare professional's instructions. Additional Information VACCINATE! IT SAVES LIVES! Members of the community who have not yet received the COVID-19 vaccine and would like to receive it can visit one of [facility] vaccine clinics. There are many vaccine clinic locations within the [facility]. For locations and available times, please visit [email or web address] It is important to note that some COVID mobile vaccine clinics are held outdoors and may be canceled in rainy or stormy conditions. To learn more about pediatric vaccinations (ages 5-11), we invite you to visit the [facility] webpage. https://www.[email or web address]/pages/[email or web address]-Glezq-Ptkppqeklzu-Uzezasvqns-Xpmjc-Bcl stions.htmlTo learn more about the COVID-19 vaccine, we invite you to visit the CDC website for a list of frequently asked questions. https://www.cdc.gov/coronavirus/2019-ncov/vaccines/faq.html [facility] Patient Portal Access Instructions: Stay connected with your healthcare team and access your personal medical information anytime with the [facility] Patient Portal. If you would like a full copy of your medical records please contact the [facility] Medical Records Department Sunday through Sunday between 8a.m. and 4:30p.m. Please follow the directions below to access the portal: 1.Access the email account you provided upon registration to the hospital.2.Look for an invitation email from [facility].3.Open the email and access the invitation link: Accept Invitation to [facility]4.Fill in the required denson to create your account. Sign into [email or web address] with your username and password that you [...] you will allow to register on the [facility] Patient Portal for access to your information. You can also access the [facility] Patient Portal on the [employer]. Simply click on Health Records under [email or web address] and then click on the [employer] logo. HOW TO SAFELY DISPOSE OF PRESCRIPTION [...] Call your local pharmacy or go to http://bit.Compiere/7N2Ab8g to find one close to you.3.Make use of household items: Use cat litter or old coffee grounds to dispose medications if other options arenot available. Mix your drugs with these household products, seal them in an airtight container andthrow it into the garbage. Call [facility]: [phone] to be sure your drugs can be [...] aware that I should contact my doctor. Patient/Coremaker Floor Signature: Date/Time: Relationship to Patient: Witness Name/Signature: Date/Time: [facility] Kalyanbobby [id number] Hospital Discharge instructions Patient Education 02/22/2023 18:12:49 [...] with you to plan treatment as needed. 5665-9402 [employer]. [address] [place] [address], [place] [address]. All rights reserved. This information is not [...] foods again, start with small amounts of yiba-ne-nhpfzc, low- fat foods. These include apple sauce, [...] increase stomach acid. Don't use aspirin or xfjm-wfs-twxrvdr pain and fever medicines, if possible. This includes nonsteroidal anti-inflammatory drugs (NSAIDs). Lose excess weight. Finish eating at least 2 hours before you go to bed or lie down. Raise the head of your bed. 3244-[address] [employer] [place] [address]. All rights reserved. This information is not intended as a substitute for professional medical care. Always follow yourhealthcare professional's instructions. Follow Up Care 02/22/2023 14:39:32 With:Go to emergency room if symptoms worsen Address:Unknown When:2-4 days With:PHYSICIAN, NONE Address:Unknown When:2-4 days [facility] 01-01-2023 Hospital Discharge instructions Additional Instructions Regular diet. Okay to shower. No lifting over 25 pounds for 2 to 3 weeks. No tub baths for 2 weeks. No intercourse for 4 to 6 weeks. Call if fevers, chills, chest pain, shortness of breath. Follow-up 1 week blood pressure check, [facility] Work Phone: [phone]) 497-633012-11-2022 Note Attestation signed by Sarina Carey MD at 01/31/2022 2:50 PM [facility] See note from today no changes in cervix precautions discussed and recommend follow up with Dr. Negrita Anglin tomorrow as scheduled. The patient was told if any concerns we are happy to see her back here at [facility] Follow up with OB as instructed Precautions addressed Stable on discharge without change in cervix Questions answered Recommend twice weekly testing with weekly labs given her pre-eclampsia diagnosis and delivery is recommended at 37 weeks unless indicated sooner. Department of Obstetrics and Gynecology [facility] Discharge Summary Admission on 01/28/2022 10:17 AM Juanita Paulino is a 21 y.o. at 33w6d with Di/Di twins who was transferred to [facility] from [place] for PTL. Patient initially presented c/o CTX 01/27 and was closed, overnight at [place] made change from 2 --> 3cm. She was given BMZx1 and procardia prior to transport. Upon arrival to [facility] patient was found to be 4/70/-3 but comfortable. She was admitted for further observation and continued tocolysis. Patient received a second dose of BMZ in addition to 36 hours of tocolysis. Zhanna met criteria for gHTN v PreEwoSF based on mild range blood pressures >4 hours apart. Initally UPC at [place] was elevated to 0.4 but on repeat at [facility], UPC was 0.25. No anti-hypertensive medications [...] of delivery Follow up appointment with your doctor/straight edger - Keep next scheduled appointment on 02/01/2022 Activity - Normal Activity Call your doctor/straight edger if you have: - leaking fluid - vaginal bleeding - regular contractions: More than 6 contractions in one hour - decreased movement - worsening abdominal (belly) pain - headache, blurry vision, increased swelling, upper abdominal pain Kyaw Andrews MD on 01/31/2022 at 2:25 [facility] 01-28-2022 NotePatient: Juanita Paulino Procedure Information Date: [...] Additional Equipment Requests Regional/Neuraxial Equipment: spinal anesthetic [facility] 01-28-2022 Note Attestation signed by Willow Moscoso DO at 01/29/2022 3:21 PM Hospital Care (Independent): I independently saw and evaluated the patient. I agree with the findings and plan of care as documented in the resident's note. Pt and partner seen 01/28/22. Pt is a 21 y.o. yo at 33w5d transported from [facility] by Dr. Negrita Anglin due to labor, nicolasa twins. Made change from closed to 2 cm dilation at [place]. Given BMZ. Started on Procardia after cervical [...] Currently with di/di twins and presented to [place] last night c/o CTX. Made cervical change from closed to 2cm before transport to [facility]. Was given BMZx1 01/28 0000 and Procardia prior to discharge. Admitted to [facility] for higher level of care. Transport: [...] 36.6 ?C (97.9 ?F) (more content not included)...[facility] Evaluation + Plan note Future Appointments Appointment Date:02/23/2023 04:00:00 PM Scheduled Provider:MICHELLE DOMINIQUE Location:[facility] Appointment Type: RECRUITMENT SPECIALIST SS Diagnostic Tests Pending * Urine Culture 02/22/23 [facility] Evaluation + Plan note Future Appointments Appointment Date:04/20/2023 04:00:00 PM Scheduled Provider:MICHELLE DOMINIQUE Location:[facility] Appointment Type:[facility] Evaluation + Plan note Future Appointments Appointment Date:04/17/2023 02:00:00 PM Scheduled Provider:MEAGHAN YOUNGER Location: [facility] Appointment Type: RECRUITMENT SPECIALIST Appointment Date:04/20/2023 04:00:00 PM Scheduled Provider:MICHELLE DOMINIQUE Location:[facility] Appointment Type:[facility] Evaluation + Plan note Future Appointments Appointment Date:05/23/2023 09:00:00 AM Scheduled Provider:MICHELLE DOMINIQUE APRN-KENZIE Location:[facility] Appointment Type:PC OV Appointment Date:08/06/2023 04:00:00 PM Scheduled Provider:MICHELLE DOMINIQUE Location:[facility] Appointment Type:[facility] Evaluation + Plan note Future Appointments Appointment Date:05/23/2023 09:00:00 AM Scheduled Provider:MICHELLE DOMINIQUE Location:[facility] Appointment Type:PC OV Appointment Date:08/06/2023 04:00:00 PM Scheduled Provider:MICHELLE DOMINIQUE Location:[facility] Appointment Type:PC OV Diagnostic Tests Pending * Food Allergy Profile 05/15/23 [facility] evaluation + Plan note Future Appointments Appointment Date:08/06/2023 04:00:00 PM Scheduled Provider:MICHELLE DOMINIQUE Location:[facility] Appointment Type:PC OV Future Scheduled Tests Laboratory* Stool Gastrointestinal Panel 06/25/23 Radiology* US Abdomen Complete 06/25/23 * US Transvaginal Non OB 06/25/23 [facility] evaluation + Plan note Future Appointments Appointment Date:07/09/2023 01:00:00 PM Scheduled Provider:MICHELLE DOMINIQUE Location:[facility] Appointment Type:PC OV ED Follow Up Appointment Date:08/06/2023 04:00:00 PM Scheduled Provider:MICHELLE DOMINIQUE Location:[facility] Appointment Type:PC OV Future Scheduled Tests Laboratory* Stool Gastrointestinal Panel 06/25/23 [facility] evaluation noteNo assessment information available [facility] Work Phone: evaluation note* Diagnosis Onset Date Resolution Status Vaginal bleeding acute [facility] Work Phone: evaluation note* Diagnosis Onset Date Resolution Status Vaginal bleeding acute Acute postoperative pain acu te delivery delivered resolved Severe pre-eclampsia resolve d [facility] Work Phone: evaluation note* Diagnosis Onset Date Resolution Status Admit Date Belching acute July 30 8:17am Diarrhea acute July 30 8:17am Fecal incontinence acute July 202024 8:17am Fecal urgency acute July 30, 2024 8:17am Heartburn acute July 30 8:17am Lower abdominal pain acute July 30, 2024 8:17am Nausea & vomiting acute July 302024 8:17am Steatosis, 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 [facility] Work Phone: Hospital course Narrative No data available for this section [facility] Hospital Discharge instructions Additional Instructions Chuck Anglin's office will call patient tomorrow to set up an appointment for next week.[facility] Work Phone: Hospital Discharge instructions No data available for this section [facility] Progress note No data available for this section [facility] Reason for referral (narrative)No reason for referral information availableWShelby [facility] Work Phone: Summary Purpose Family History [...] Will No February 22 10:57am Power of Demo Specialist No February 22 10:57am Advance Directive Response Recorded Date/ Time Living Will No February 22 9:57am Power of Demo Specialist No February 22 9:57am Advance Directive Response Recorded Date/ Time Living Will No January 28 12:36am Power of Demo Specialist No January 28, 2022 12:36am Advance Directive Response Recorded Date/ Time Living Will No February 04 6:42pm Power of Demo Specialist No February 04, 2022 6:42pm Advance Directive Response Recorded Date/ Time Living Will No February 04, 2 022 7:42pm Power of Demo Specialist No February 04, 2022 7:42pm Advance Directive Response Recorded Date/ Time Do you have a Healthcare Power of Demo Specialist? No July 24, 2024 8:45am Instructions [...] The doctor may recommend that you take kqqs-ouz-oqlauoi medicine, such as loperamide (Imodium), if you [...] Review Problems (Active Problems Only) (SNOMED CT: 945462503, Onset: 04/12/18) Allergic rhinitis caused by pollens (SNOMED CT: 3613464523, Onset: --) ADHD (SNOMED CT: AZEGxwEmLzUcjdGfwKgAAg, Onset: --) Polycystic ovary syndrome (SNOMED CT: [id number], Onset: --) Depression (SNOMED CT: 092108675, Onset: --) Excessive growth of facial hair (SNOMED CT: 401735105, Onset: --) Premature rupture of membranes (SNOMED [...] You may find a provider through the [employer] Physician Referral Service by calling [phone] or by visiting [email or web address] Thank You for choosing the [facility] Emergency Department! * Attachments The following attachments cannot be sent through Care Everywhere. 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 NEW EMPLOYEE PHYSICAL June 05 2:09pm EORDERS [...] DATE CREATED AUTHOR AUTHOR'S ORGANIZ ATION 11/01/2017 [facility] Care DATE CREATED AUTHOR AUTHOR'S ORGANIZ ATION 11/10/2017 [facility] DATE CREATED AUTHOR AUTHOR'S ORGANIZ ATION [facility]23/[facility] DATE CREATED AUTHOR AUTHOR'S ORGANIZ ATION 01/23/2019 [facility] DATE CREATED AUTHOR AUTHOR'S ORGANIZ ATION 02/09/2022 [facility] DATE CREATED AUTHOR AUTHOR'S ORGANIZ ATION 09/04/2023 [facility] ([place] DATE CREATED AUTHOR AUTHOR'S ORGANIZ ATION 01/06/2024 [facility] DATE CREATED AUTHOR AUTHOR'S ORGANIZ ATION 12/04/2024 [facility] Reason for Visit (unrecogniz ed section and [...] 2024 End: July 30, 2024 Ashley Larose RECRUITMENT SPECIALIST-C Attending Provider Active Start: July 30, 2024 [...] 2024 End: July 30, 2024 Ashley Larose RECRUITMENT SPECIALIST-C Attending Provider Active Start: July 30, 2024 End: July 30, 2024 Ashley Larose RECRUITMENT SPECIALIST-C Referring Provider Active Start: July 30, 2024 End: July 30, 2024 Team Status: Active Member Role Status Dates Dr. Tiffany Marks MD Primary Care Provider Active Start: August 05, 2024 Ashley Larose RECRUITMENT SPECIALIST-C Attending Provider Active Start: August 05, 2024 Ashley Larose RECRUITMENT SPECIALIST-C Referring Provider Active Start: August 05, 2024 Team Status: Inactive Member Role Status Dates Dr. Tiffany Marks MD Primary Care Provider Active Start: August 05, 2024 End: August 05, 2024 Ashley Larose RECRUITMENT SPECIALIST-C Attending Provider Active Start: August 05, 2024 End: August 05, 2024 Ashley Larose RECRUITMENT SPECIALIST-C Referring Provider Active Start: August 05, 2024 [...] 2024 End: July 30, 2024 Ashley Larose RECRUITMENT SPECIALIST-C Attending Provider Active Start: July 30, 2024 End: July 30, 2024 Ashley Larose RECRUITMENT SPECIALIST-C Referring Provider Active Start: July 30, 2024 End: July 30, 2024 Team Status: Inactive Member Role/Relationship Status Dates Dr. Tiffany Marks MD Primary Care Provider Active Start: August 05, 2024 End: August 05, 2024 Ashley Larose RECRUITMENT SPECIALIST-C Attending Provider Active Start: August 05, 2024 [...] End: September 01, 2024 Simin Yu NP, RECRUITMENT SPECIALIST-C Attending Provider Active Start: September 01, 2024 End: September 01, 2024 Team Status: Active Member Role/Relationship Status Dates JEFF VELASCO Primary Care Provider Active Team Status: Active Member Role/Relationship Status Dates Dr. Tiffany Marks MD Primary Care Provider Active Start: September 02, 2024 Ashley Larose RECRUITMENT SPECIALIST-C Attending Provider Active Start: September 02, 2024 Ashley Larose RECRUITMENT SPECIALIST-C Referring Provider Active Start: September 02, 2024 Team Status: Inactive Member Role/Relationship Status Dates Ashley Larose NP-C Attending Provider Active Start: September 05, 2024 End: September 05, 2024 MICHELLE MAST , COMPUTER TAPE LIBRARIAN Primary Care Provider Active Start: September 05, 2024 End: September 05, 2024 MICHELLE MAST , COMPUTER TAPE LIBRARIAN Referring Provider Active Sta rt: September 05, [...] Member Role/Relationship Status Dates MICHELLE MAST , COMPUTER TAPE LIBRARIAN Primary Care Provider Active Start: September 10, [...] Member Role/Relationship Status Dates MICHELLE MAST , COMPUTER TAPE LIBRARIAN Primary Care Provider Active Start: June 05, 2024 Health Risk Assessment Attending Provider Active Start: June 05, 2024 Health Risk Assessment Referring Provider Active Start: June 05, 2024 Team Status: Inactive Member Role/Relationship Status Dates MICHELLE MAST , COMPUTER TAPE LIBRARIAN Primary Care Provider Active Start: July 16, [...] 01, 2024 End: September 01, 2024 Simin Hereford RECRUITMENT SPECIALIST, RECRUITMENT SPECIALIST-C Attending Provider Active Start: September 01, 2024 End: September 01, 2024 Team Status: Inactive Member Role/Relationship Status Dates Dr. Tiffany Marks MD Primary Care Provider Active Start: September 02, 2024 End: September 02, 2024 Ashley Larose RECRUITMENT SPECIALIST-C Attending Provider Active Start: September 02, 2024 End: September 02, 2024 Ashley Larose RECRUITMENT SPECIALIST-C Referring Provider Active Start: September 02, 2024 End: September 02, 2024 Team Status: Inactive Member Role/Relationship Status Dates Ashley Larose RECRUITMENT SPECIALIST-C Attending Provider Active Start: September 05, 2024 End: September 05, 2024 MICHELLE MAST , COMPUTER TAPE LIBRARIAN Primary Care Provider Active Start: September 05, 2024 End: September 05, 2024 MICHELLE MAST , COMPUTER TAPE LIBRARIAN Referring Provider Active Sta rt: September 05, 2024 End: September 05, 2024 Team Status: Inactive Member Role/Relationship Status Dates MICHELLE MAST , COMPUTER TAPE LIBRARIAN Primary Care Provider Active Start: September 10, 2024 End: September 10, 2024 Ashley Larose RECRUITMENT SPECIALIST-C Attending Provider Active Start: September 10, 2024 End: September 10, 2024 Ashley Larose RECRUITMENT SPECIALIST-C Referring Provider Active Start: September 10, 2024 End: September 10, 2024 Team Status: Inactive Member Role/Relationship Status Dates MICHELLE MAST , COMPUTER TAPE LIBRARIAN Referring Provider Active Sta rt: September 18, 2024 End: September 18, 2024 Dr. Teresa Wilkinson MD Attending Provider Active Start: September 18, 2024 End: September 18, 2024 Team Status: Inactive Member Role/Relationship Status Dates MICHELLE MAST , COMPUTER TAPE LIBRARIAN Referring Provider Active Sta rt: September 18, 2024 End: September 18, 2024 Dr. Teresa Wilkinson MD Attending Provider Active Start: September 18, 2024 End: September 18, 2024 Team Status: Inactive Member Role/Relationship Status Dates Simin Yu RECRUITMENT SPECIALIST, RECRUITMENT SPECIALIST-C Attending Provider Active Start: September 19, 2024 End: September 19, 2024 Simin Yu RECRUITMENT SPECIALIST, RECRUITMENT SPECIALIST-C Referring Provider Active Start: September 19, 2024 End: September 19, 2024 MICHELLE MAST , COMPUTER TAPE LIBRARIAN Primary Care Provider Active Start: September 19, [...] End: August 05, 2024 Ashley Thuan , RECRUITMENT SPECIALIST-C Attending Provider Active Start: August 05, 2024 End: August 05, 2024 Ashley Larose RECRUITMENT SPECIALIST-C Referring Provider Active Start: August 05, 2024 [...] End: September 01, 2024 Simin Yu NP, RECRUITMENT SPECIALIST-C Attending Provider Active Start: September 01, 2024 End: September 01, 2024 Team Status: Inactive Member Role/Relationship Status Dates Dr. Tiffany Marks MD Primary Care Provider Active Start: September 02, 2024 End: September 02, 2024 Ashley Larose NP-C Attending Provider Active Start: September 02, 2024 End: September 02, 2024 Ashley Larose RECRUITMENT SPECIALIST-C Referring Provider Active Start: September 02, 2024 End: September 02, 2024 Team Status: Inactive Member Role/Relationship Status Dates Ashley Larose NP-C Attending Provider Active Start: September 05, 2024 End: September 05, 2024 JEFF VELASCO Primary Care Provider Active Start: September 05, 2024 End: September 05, 2024 MICHELLE DOMINIQUE COMPUTER TAPE LIBRARIAN Referring Provider Active Sta rt: September 05, 2024 End: September 05, 2024 Team Status: Inactive Member Role/Relationship Status Dates JEFF VELASCO Primary Care Provider Active Start: September 10, 2024 End: September 10, 2024 Ashley Larose RECRUITMENT SPECIALIST-C Attending Provider Active Start: September 10, 2024 End: September 10, 2024 Ashley Larose RECRUITMENT SPECIALIST-C Referring Provider Active Start: September 10, 2024 End: September 10, 2024 Team Status: Inactive Member Role/Relationship Status Dates MICHELLE MAST , COMPUTER TAPE LIBRARIAN Referring Provider Active Sta rt: September 18, 2024 End: September 18, 2024 Dr. Teresa Wilkinson MD Attending Provider Active Start: September 18, 2024 End: September 18, 2024 Team Status: Inactive Member Role/Relationship Status Dates Simin Yu RECRUITMENT SPECIALIST, RECRUITMENT SPECIALIST-C Attending Provider Active Start: September 19, 2024 End: September 19, 2024 Simin Yu RECRUITMENT SPECIALIST, RECRUITMENT SPECIALIST-C Referring Provider Active Start: September 19, 2024 End: September 19, 2024 MICHELLE MAST , COMPUTER TAPE LIBRARIAN Primary Care Provider Active Start: September 19, 2024 End: September 19, 2024 Team Status: Inactive Member Role/Relationship Status Dates Simin Yu RECRUITMENT SPECIALIST, RECRUITMENT SPECIALIST-C Attending Provider Active Start: October 14, 2024 End: October 14, 2024 MICHELLE MAST , COMPUTER TAPE LIBRARIAN Primary Care Provider Active Start: October 14, 2024 End: October 14, 2024 MICHELLE MAST , COMPUTER TAPE LIBRARIAN Referring Provider Active Sta rt: October 14, 2024 End: October 14, 2024 Team Status: Active Member Role/Relationship Status Dates MICHELLE MAST , COMPUTER TAPE LIBRARIAN Primary Care Provider Active Start: October 14, 2024 KO Ram Attending Provider Active Start: October 14, 2024 KO Ram Referring Provider Active Start: October 14, 2024 Team Status: Active Member Role/Relationship Status Dates MICHELLE MAST , COMPUTER TAPE LIBRARIAN Primary Care Provider Active Start: October 14, 2024 Simin Yu RECRUITMENT SPECIALIST, RECRUITMENT SPECIALIST-C Attending Provider Active Start: October 14, 2024 Team Status: Inactive Member Role/Relationship Status Dates MICHELLE MAST , COMPUTER TAPE LIBRARIAN Primary Care Provider Active Start: October 21, 2024 End: October 21, 2024 Dr. Luis Pandya MD Attending Provider Active Start: October 21, 2024 End: October 21, 2024 Ashley Larose NP-C Referring Provider Active Start: October 21, 2024 End: October 21, 2024 Team Status: Inactive Member Role/Relationship Status Dates MICHELLE MAST , COMPUTER TAPE LIBRARIAN Primary Care Provider Active Start: October 14, 2024 End: October 14, 2024 Simin Aimee RECRUITMENT SPECIALIST, RECRUITMENT SPECIALIST-C Attending Provider Active Start: October 14, 2024 End: October 14, 2024 Team Status: Inactive Member Role/Relationship Status Dates MICHELLESASHA DOMINIQUE COMPUTER TAPE LIBRARIAN Primary Care Provider Active Start: October 14, 2024 End: October 14, 2024 KO Ram Attending Provider Active Start: October 14, 2024 End: October 14, 2024 KO Ram Referring Provider Active Start: October 14, 2024 End: October 14, 2024 Team Status: Inactive Member Role/Relationship Status Dates MICHELLE MAST , COMPUTER TAPE LIBRARIAN Primary Care Provider Active Start: October 30, 2024 End: October 30, 2024 MICHELLE MAST , COMPUTER TAPE LIBRARIAN Referring Provider Active Sta rt: October 30, 2024 End: October 30, 2024 DELMIS Crenhsaw Attending Provider Active Start: October 30, 2024 End: October 30, 2024 Team Status: Active Member Role/Relationship Status Dates MICHELLE DOMINIQUE , COMPUTER TAPE LIBRARIAN Primary care physician Active Team Status: Active Member Role/Relationship Status Dates Dr. Tiffany Marks MD Primary care physician Active Start: July 29, 2024 Health Risk Assessment Attending physician Active Start: July 29, 2024 Health Risk Assessment Referring Provider Active Start: July 29, 2024 Team Status: Inactive Member Role/Relationship Status Dates MICHELLE DOMINIQUE COMPUTER TAPE LIBRARIAN Referring Provider Active Sta rt: July 30, [...] End: September 01, 2024 Simin Yu NP RECRUITMENT SPECIALIST-C Attending physician Active Start: September 01, 2024 [...] 10, 2024 End: September 10, 2024 Ashley Laorse NP-C Referring Provider Active Start: September 10, 2024 End: September 10, 2024 Team Status: Inactive Member Role/Relationship Status Dates MICHELLE DOMINIQUE , COMPUTER TAPE LIBRARIAN Referring Provider Active Sta rt: September 18, 2024 End: September 18, 2024 Dr. Teresa Wilkinson MD Attending physician Active Start: September 18, 2024 End: September 18, 2024 Team Status: Inactive Member Role/Relationship Status Dates Simin Yu RECRUITMENT SPECIALIST, RECRUITMENT SPECIALIST-C Attending physician Active Start: September 19, 2024 End: September 19, 2024 Simin Yu NP, RECRUITMENT SPECIALIST-C Referring Provider Active Start: September 19, 2024 End: September 19, 2024 ANDRES VELASCONP Primary care physician Active Start: September 19, 2024 End: September 19, 2024 Team Status: Inactive Member Role/Relationship Status Dates Simin Yu NP, RECRUITMENT SPECIALIST-C Attending physician Active Start: October 14, 2024 End: October 14, 2024 MICHELLESASHA DOMINIQUE , COMPUTER TAPE LIBRARIAN Primary care physician Active Start: October 14, 2024 End: October 14, 2024 MICHELLE MAST , COMPUTER TAPE LIBRARIAN Referring Provider Active Sta rt: October 14, 2024 End: October 14, 2024 Team Status: Inactive Member Role/Relationship Status Dates MICHELLESASHA DOMINIQUE , COMPUTER TAPE LIBRARIAN Primary care physician Active Start: October 14, 2024 End: October 14, 2024 KO Ram Attending physician Active Start: October 14, 2024 End: October 14, 2024 KO Ram Referring Provider Active Start: October 14, 2024 End: October 14, 2024 Team Status: Inactive Member Role/Relationship Status Dates MICHELLE MAST , COMPUTER TAPE LIBRARIAN Primary care physician Active Start: October 14, 2024 End: October 14, 2024 Simin Yu NP, RECRUITMENT SPECIALIST-C Attending physician Active Start: October 14, 2024 End: October 14, 2024 Team Status: Inactive Member Role/Relationship Status Dates MICHELLESASHA DOMINIQUE , COMPUTER TAPE LIBRARIAN Primary care physician Active Start: October 21, 2024 End: October 21, 2024 Dr. Luis Pandya MD Attending physician Active Start: October 21, 2024 End: October 21, 2024 Ashley Larose NP-C Referring Provider Active Start: October 21, 2024 End: October 21, 2024 Team Status: Inactive Member Role/Relationship Status Dates MICHELLESASHA DOMINIQUE , COMPUTER TAPE LIBRARIAN Primary care physician Active Start: October 30, 2024 End: October 30, 2024 MICHELLE MAST , COMPUTER TAPE LIBRARIAN Referring Provider Active Sta rt: October 30, 2024 End: October 30, 2024 JANIE CrenshawC Attending physician Active Start: October 30, 2024 End: October 30, 2024 Team Status: Active Member Role/Relationship Status Dates MICHELLESASHA DOMINIQUE , COMPUTER TAPE LIBRARIAN Primary care physician Active Start: November 19, 2024 Dr. Teresa Wilkinson MD Attending physician Active Start: November 19, 2024 Dr. Teresa Wilkinson MD Referring Provider Active Start: November 19, 2024 Team Status: Inactive Member Role/Relationship Status Dates MICHELLE MAST , COMPUTER TAPE LIBRARIAN Primary care physician Active Start: November 24, 2024 End: November 24, 2024 MICHELLE MAST , COMPUTER TAPE LIBRARIAN Referring Provider Active Sta rt: November 24, 2024 End: November 24, 2024 Simin Yu NP, NP-C Attending physician Active Start: November 24, 2024 End: November 24, 2024 Team Status: Inactive Member Role/Relationship Status Dates MICHELLESASHA DOMINIQUE , COMPUTER TAPE LIBRARIAN Primary care physician Active Start: November 19, [...] BE BASED ON THE PRIMARY CLINICAL RECORDS. [facility]. provides no warranty or guarantee of the accuracy or completeness of information in this document.
[2024-12-04 06:23] LABS: Internal QC Validated? YES +Cl - CLEAR BKGD; Pregnancy, Urine Negative Negative; Record Kit Lot#,Urine Preg 0000980607
[2024-12-04] MEDS: INDOCYANINE GREEN 3.75 MG in Syringe 1.5 ML 999 MG IV (06:25)
[2024-12-04] MEDS: Lactated Ringers 1,000 ML 15 ML IV (06:25)
--- NOTE | 2024-12-04 06:46 | PCM.PRE.AN2 ---
ASA Classification* ASA Classification ASA Classification: 2 Assessment & Plan Anesthesia* Anesthesia Assessment Anesthesia Assessment: Discussed sedation and/or anesthesia options, risks, benefits, and alternatives with patient/parents/legal guardian/POA. Questions invited. The patient/parents/legal guardian/POA seems to understand and agrees to proceed with anesthesia plan. Reviewed the physical assessment, medical history, allergy history and patient home medications list prior to surgery/procedure/anesthetic and documented any changes. Performed airway and anesthesia risk assessments. Anesthesia Type Anesthesia Type: General History Source History Obtained from:: Patient, Chart and Significant Other (Mother in the room) Anesthesia Focused Assessment* Temperature: 97.6 F Pulse Rate: 81 Blood Pressure: 123/66 Respiratory Rate: 17 Pulse Ox: 98 Oxygen Delivery Method: Room Air Airway Assessment Mouth opens: >3 cm Mallampati Score: II Teeth Condition: Intact Neck Range of motion (ROM): Full ROM Labs Anesthesia Preop lab: CBC WBC, (4.4-11.0) 7.6 K/mm3 11/19/24, : RBC, (4.2-5.4) 4.83 M/mm3 11/19/24, : Hgb, (12.0-15.0) 12.5 g/dL 11/19/24, Hct, (37-47) 37.8 % 11/19/24, : Plt Count, (150-450) 271 K/mm3 11/19/24, 16: CHEMISTRY Potassium, (3.3-5.1) 3.8 mmol/L 11/25/24, 10: Sodium, (133-145) 141 mmol/L 11/25/24, 10: Magnesium, (1.6-2.6) 5.4 mg/dL H* 02/05/22, 05:28 BUN, (4-19) 10 mg/dL 11/25/24, 10:07 Creatinine, (0.70-1.20) 0.65 mg/dL L 11/25/24, 10:07 Glucose, (70-99) 94 mg/dL 11/25/24, 10:07 TSH, (0.300-4.200) 1.160 uIU/mL 09/10/24, 11:30 COAG PT, (11.7-14.9) 13.4 SECONDS 05/02/19, 22:52 HCG, Quant, (<9 non-preg) < 1 mIU/mL 07/16/24, 15:10 Urine Test Negative Negative Today, 06:15 [facility] Negative 10/14/24, 11:08 Pre-Assessment Diagnosis/Proposed Procedure Planned Operative Procedure(s): ROBOTIC CHOLECYSTECTOMY Anesthesia History Anesthesia History - operations and maintenance specialist: Anesthesia History - operations and maintenance specialist Hx Hospitalization No 11/20/24 14:37 Any Problems With Anesthesia Yes: VERY HAD TO WAKE UP 11/20/24 14:37 Cholinesterase deficiency Yes 11/20/24 14:37 You/Your Family Experience No 11/20/24 14:37 fever (hyperthermia) with Relationship Recent Exposure to Contagious No 12/04/24 06:27 Disease Does patient have nerve No 11/20/24 14:37 stimulator Patient instructed to have device shut off --Does patient have Pacemaker No 12/04/24 06:27 or ICD? When Was Last Pacemaker Check QUESTION #4 FULL TEXT: You/Your Family Experience fever (hyperthermia) with Anesthesia Last Oral Intake Last Oral intake: Last Oral Intake NPO since 00:00 12/04/24 06:27 Meds taken in AM with sips of No 12/04/24 06:27 water? Meds patient instructed to take am of surgery PONV PONV - operations and maintenance specialist: PONV - operations and maintenance specialist Female Yes 11/20/24 14:37 HX of Motion Sickness No 11/20/24 14:37 HX of N/V After Surgery No 11/20/24 14:37 Non-Smoker Yes 11/20/24 14:37 Duration of Surgery greater Yes 11/20/24 14:37 than 60 minutes Number of Risk Factors 3 11/20/24 14:37 PONV Score Moderate Risk 11/20/24 14:37 Height & Weight Height & Weight: Anesthesia: Height & Weight Height 5 ft 7 in 12/04/24 06:27 Weight: 149 kg 12/04/24 06:27 Body Mass Index (BMI) 51.4 12/04/24 06:27 Respiratory Assessment Respiratory Assessment - operations and maintenance specialist: Respiratory Tract Infection Hx - operations and maintenance specialist Hx Respiratory Tract Infection No 11/20/24 14:37 STOP Sleep Apnea STOP Sleep Apnea - operations and maintenance specialist: STOP Sleep Apnea - operations and maintenance specialist Hx Hypertension No 11/20/24 14:37 Hx Sleep Apnea No 11/20/24 14:37 CPAP BIPAP Do you snore loudly (louder No 11/20/24 14:37 than talking or can be heard Do you often feel tired/ No 11/20/24 14:37 fatigued/ sleepy during daytime? Has anyone observed you stop No 11/20/24 14:37 breathing during sleep? STOP Results Negative 11/20/24 14:37 QUESTION #5 FULL TEXT : Do you snore loudly (louder than talking or can be heard through closed doors)? 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 Specify any problems Hx of Preganancy in last 3 No 11/20/24 14:37 Months Nurse Filling Out Transfusion [email or web address] 11/20/24 14:37 & Questions: Date: 11/20/24 11/20/24 14:37 Time: 14:39 11/20/24 14:37 Patient unable to answer at this time (ie. confused, unrespo /Reproduction History /Reproductive History - operations and maintenance specialist: /Reproductive Hx- operations and maintenance specialist Hx Now No 11/20/24 14:37 Gestational Age (in weeks): EDC: Hx Hx Para Hx Section SAB No 11/24/24 14:50 Active Medications Active Medications: Current Medications Generic Name Dose Route Start Last Admin Trade Name Freq PRN Reason Stop Dose Admin Indocyanine Green 3.75 mg/ N/A 1.5 mls @ 999 mls/hr 12/04/24 07:30 12/04/24 06:25 IV 10/16/25 07:31 999 mls/hr PREOP ONE Administration Lactated Ringer's 1,000 mls @ 15 mls/hr 12/04/24 06:15 12/04/24 06:25 IV 15 mls/hr .Q48H KRISTAN Administration PFSH Medical History Wears glasses Depression Anxiety Cholinesterase deficiency Gastric reflux Non-smoker Biliary dyskinesia HSV-2 (herpes simplex virus 2) infection IBS (irritable bowel syndrome) Seasonal allergies Pre-eclampsia History of pre-term labor Infertility PCOS (polycystic ovarian syndrome) Home Medications ?Medication ?Instructions ?Recorded ?Last Taken ?Type valacyclovir 500 mg tablet 500 mg PO QDAY HSV 30 days #30 tabs 05/26/24 12/03/24 Rx calcium polycarbophil 625 mg 1,250 mg (2 x 625 mg) PO QDAY #180 07/30/24 12/03/24 Rx tablet (FiberCon) tabs rabeprazole 20 mg tablet,delayed 20 mg PO QDAY #90 tabs 07/30/24 12/03/24 Rx release buspirone 5 mg tablet 5 mg PO TID #90 tabs 08/13/24 12/03/24 Rx fluoxetine 10 mg capsule (Prozac) 10 mg PO QDAY #30 caps 08/13/24 12/03/24 Rx metformin 500 mg tablet 500 mg PO BID #60 tabs 08/13/24 12/03/24 Rx dicyclomine 10 mg capsule 10 mg PO TID #90 caps 10/28/24 12/03/24 Rx spironolactone 25 mg tablet 50 mg PO DAILY 10/30/24 12/03/24 History tranexamic acid 650 mg tablet 1,300 mg PO TID PRN bleeding 10/30/24 12/03/24 History medroxyprogesterone 10 mg tablet 10 mg PO .COMPLEX #10 tabs 11/25/24 12/03/24 Rx Allergy/AdvReac Type Severity Reaction Status Date / Time No Known Allergies Allergy Verified 12/04/24 06:20 Family History Mother Colon cancer 40s Thyroid disorder Arthritis Depression Type 2 diabetes mellitus Grandmother Arthritis Sister Hormone imbalance pcos Depression Endometriosis Grandmother Colon cancer Sister Endometriosis Grandfather Colon cancer Lung cancer Surgical History S/P section S/P nasal septoplasty History of strabismus surgery History of tonsillectomy Social History adopted: No household members: spouse and children housing: house number of children: 3 current occupational status: employed 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
--- NOTE | 2024-12-04 06:46 | PCM.PRE.AN2 ---
ASA Classification* ASA Classification ASA Classification: 2 Assessment & Plan Anesthesia* Anesthesia Assessment Anesthesia Assessment: Discussed sedation and/or anesthesia options, risks, benefits, and alternatives with patient/parents/legal guardian/POA. Questions invited. The patient/parents/legal guardian/POA seems to understand and agrees to proceed with anesthesia plan. Reviewed the physical assessment, medical history, allergy history and patient home medications list prior to surgery/procedure/anesthetic and documented any changes. Performed airway and anesthesia risk assessments. Anesthesia Type Anesthesia Type: General History Source History Obtained from:: Patient, Chart and Significant Other (Mother in the room) Anesthesia Focused Assessment* Temperature: 97.6 F Pulse Rate: 81 Blood Pressure: 123/66 Respiratory Rate: 17 Pulse Ox: 98 Oxygen Delivery Method: Room Air Airway Assessment Mouth opens: >3 cm Mallampati Score: II Teeth Condition: Intact Neck Range of motion (ROM): Full ROM Labs Anesthesia Preop lab: CBC WBC, (4.4-11.0) 7.6 K/mm3 11/19/24, : RBC, (4.2-5.4) 4.83 M/mm3 11/19/24, : Hgb, (12.0-15.0) 12.5 g/dL 11/19/24, Hct, (37-47) 37.8 % 11/19/24, : Plt Count, (150-450) 271 K/mm3 11/19/24, 16: CHEMISTRY Potassium, (3.3-5.1) 3.8 mmol/L 11/25/24, 10: Sodium, (133-145) 141 mmol/L 11/25/24, 10: Magnesium, (1.6-2.6) 5.4 mg/dL H* 02/05/22, 05:28 BUN, (4-19) 10 mg/dL 11/25/24, 10:07 Creatinine, (0.70-1.20) 0.65 mg/dL L 11/25/24, 10:07 Glucose, (70-99) 94 mg/dL 11/25/24, 10:07 TSH, (0.300-4.200) 1.160 uIU/mL 09/10/24, 11:30 COAG PT, (11.7-14.9) 13.4 SECONDS 05/02/19, 22:52 HCG, Quant, (<9 non-preg) < 1 mIU/mL 07/16/24, 15:10 Urine Test Negative Negative Today, 06:15 [facility] Negative 10/14/24, 11:08 Pre-Assessment Diagnosis/Proposed Procedure Planned Operative Procedure(s): ROBOTIC CHOLECYSTECTOMY Anesthesia History Anesthesia History - assurance sourcing manager: Anesthesia History - assurance sourcing manager Hx Hospitalization No 11/20/24 14:37 Any Problems With Anesthesia Yes: VERY HAD TO WAKE UP 11/20/24 14:37 Cholinesterase deficiency Yes 11/20/24 14:37 You/Your Family Experience No 11/20/24 14:37 fever (hyperthermia) with Relationship Recent Exposure to Contagious No 12/04/24 06:27 Disease Does patient have nerve No 11/20/24 14:37 stimulator Patient instructed to have device shut off --Does patient have Pacemaker No 12/04/24 06:27 or ICD? When Was Last Pacemaker Check QUESTION #4 FULL TEXT: You/Your Family Experience fever (hyperthermia) with Anesthesia Last Oral Intake Last Oral intake: Last Oral Intake NPO since 00:00 12/04/24 06:27 Meds taken in AM with sips of No 12/04/24 06:27 water? Meds patient instructed to take am of surgery PONV PONV - assurance sourcing manager: PONV - assurance sourcing manager Female Yes 11/20/24 14:37 HX of Motion Sickness No 11/20/24 14:37 HX of N/V After Surgery No 11/20/24 14:37 Non-Smoker Yes 11/20/24 14:37 Duration of Surgery greater Yes 11/20/24 14:37 than 60 minutes Number of Risk Factors 3 11/20/24 14:37 PONV Score Moderate Risk 11/20/24 14:37 Height & Weight Height & Weight: Anesthesia: Height & Weight Height 5 ft 7 in 12/04/24 06:27 Weight: 149 kg 12/04/24 06:27 Body Mass Index (BMI) 51.4 12/04/24 06:27 Respiratory Assessment Respiratory Assessment - assurance sourcing manager: Respiratory Tract Infection Hx - assurance sourcing manager Hx Respiratory Tract Infection No 11/20/24 14:37 STOP Sleep Apnea STOP Sleep Apnea - assurance sourcing manager: STOP Sleep Apnea - assurance sourcing manager Hx Hypertension No 11/20/24 14:37 Hx Sleep Apnea No 11/20/24 14:37 CPAP BIPAP Do you snore loudly (louder No 11/20/24 14:37 than talking or can be heard Do you often feel tired/ No 11/20/24 14:37 fatigued/ sleepy during daytime? Has anyone observed you stop No 11/20/24 14:37 breathing during sleep? STOP Results Negative 11/20/24 14:37 QUESTION #5 FULL TEXT : Do you snore loudly (louder than talking or can be heard through closed doors)? 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 Specify any problems Hx of Preganancy in last 3 No 11/20/24 14:37 Months Nurse Filling Out Transfusion [email or web address] 11/20/24 14:37 & Questions: Date: 11/20/24 11/20/24 14:37 Time: 14:39 11/20/24 14:37 Patient unable to answer at this time (ie. confused, unrespo /Reproduction History /Reproductive History - assurance sourcing manager: /Reproductive Hx- assurance sourcing manager Hx Now No 11/20/24 14:37 Gestational Age (in weeks): EDC: Hx Hx Para Hx Section SAB No 11/24/24 14:50 Active Medications Active Medications: Current Medications Generic Name Dose Route Start Last Admin Trade Name Freq PRN Reason Stop Dose Admin Indocyanine Green 3.75 mg/ N/A 1.5 mls @ 999 mls/hr 12/04/24 07:30 12/04/24 06:25 IV 10/16/25 07:31 999 mls/hr PREOP ONE Administration Lactated Ringer's 1,000 mls @ 15 mls/hr 12/04/24 06:15 12/04/24 06:25 IV 15 mls/hr .Q48H KRISTAN Administration PFSH Medical History Wears glasses Depression Anxiety Cholinesterase deficiency Gastric reflux Non-smoker Biliary dyskinesia HSV-2 (herpes simplex virus 2) infection IBS (irritable bowel syndrome) Seasonal allergies Pre-eclampsia History of pre-term labor Infertility PCOS (polycystic ovarian syndrome) Home Medications ?Medication ?Instructions ?Recorded ?Last Taken ?Type valacyclovir 500 mg tablet 500 mg PO QDAY HSV 30 days #30 tabs 05/26/24 12/03/24 Rx calcium polycarbophil 625 mg 1,250 mg (2 x 625 mg) PO QDAY #180 07/30/24 12/03/24 Rx tablet (FiberCon) tabs rabeprazole 20 mg tablet,delayed 20 mg PO QDAY #90 tabs 07/30/24 12/03/24 Rx release buspirone 5 mg tablet 5 mg PO TID #90 tabs 08/13/24 12/03/24 Rx fluoxetine 10 mg capsule (Prozac) 10 mg PO QDAY #30 caps 08/13/24 12/03/24 Rx metformin 500 mg tablet 500 mg PO BID #60 tabs 08/13/24 12/03/24 Rx dicyclomine 10 mg capsule 10 mg PO TID #90 caps 10/28/24 12/03/24 Rx spironolactone 25 mg tablet 50 mg PO DAILY 10/30/24 12/03/24 History tranexamic acid 650 mg tablet 1,300 mg PO TID PRN bleeding 10/30/24 12/03/24 History medroxyprogesterone 10 mg tablet 10 mg PO .COMPLEX #10 tabs 11/25/24 12/03/24 Rx Allergy/AdvReac Type Severity Reaction Status Date / Time No Known Allergies Allergy Verified 12/04/24 06:20 Family History Mother Colon cancer 40s Thyroid disorder Arthritis Depression Type 2 diabetes mellitus Grandmother Arthritis Sister Hormone imbalance pcos Depression Endometriosis Grandmother Colon cancer Sister Endometriosis Grandfather Colon cancer Lung cancer Surgical History S/P section S/P nasal septoplasty History of strabismus surgery History of tonsillectomy Social History adopted: No household members: spouse and children housing: house number of children: 3 current occupational status: employed 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
--- NOTE | 2024-12-04 07:22 | PCM.HP.STD ---
HPI - General General Date of Service: 12/04/24 Chief Complaint: biliary dyskinesia [facility] Narrative JOSE G MODI, is a 24 F who presents today for elective robotic cholecystectomy. She describes periodic pain in the right upper quadrant along with nausea vomiting as well as diarrhea. She recently underwent an ultrasound of the right upper quadrant and this was negative for any stones or sludge. She then underwent a HIDA scan that showed no appreciable emptying of the gallbladder with [facility] Medical History (Updated 12/04/24 @ 07:[address] Luis Pandya MD) Biliary dyskinesia Wears glasses Depression Anxiety Cholinesterase deficiency Gastric reflux Non-smoker Biliary dyskinesia HSV-2 (herpes simplex virus 2) infection IBS (irritable bowel syndrome) Seasonal allergies Pre-eclampsia History of pre-term labor Infertility PCOS (polycystic ovarian syndrome) Home Medications ?Medication ?Instructions ?Recorded ?Last Taken ?Type valacyclovir 500 mg tablet 500 mg PO QDAY HSV 30 days #30 tabs 05/26/24 12/03/24 Rx calcium polycarbophil 625 mg 1,250 mg (2 x 625 mg) PO QDAY #180 07/30/24 12/03/24 Rx tablet (FiberCon) tabs rabeprazole 20 mg tablet,delayed 20 mg PO QDAY #90 tabs 07/30/24 12/03/24 Rx release buspirone 5 mg tablet 5 mg PO TID #90 tabs 08/13/24 12/03/24 Rx fluoxetine 10 mg capsule (Prozac) 10 mg PO QDAY #30 caps 08/13/24 12/03/24 Rx metformin 500 mg tablet 500 mg PO BID #60 tabs 08/13/24 12/03/24 Rx dicyclomine 10 mg capsule 10 mg PO TID #90 caps 10/28/24 12/03/24 Rx spironolactone 25 mg tablet 50 mg PO DAILY 10/30/24 12/03/24 History tranexamic acid 650 mg tablet 1,300 mg PO TID PRN bleeding 10/30/24 12/03/24 History medroxyprogesterone 10 mg tablet 10 mg PO .COMPLEX #10 tabs 11/25/24 12/03/24 Rx Allergy/AdvReac Type Severity Reaction Status Date / Time No Known Allergies Allergy Verified 12/04/24 06:20 Family History Mother Colon cancer 40s Thyroid disorder Arthritis Depression Type 2 diabetes mellitus Grandmother Arthritis Sister Hormone imbalance pcos Depression Endometriosis Grandmother Colon cancer Sister Endometriosis Grandfather Colon cancer Lung cancer Surgical History S/P section S/P nasal septoplasty History of strabismus surgery History of tonsillectomy Social History adopted: No household members: spouse and children housing: house number of children: 3 current occupational status: employed 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 [employer] 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 travel: No sexually active: Yes Smoking Status: Never smoker second hand exposure: No alcohol intake: never substance use type: does not use caffeine: No eating out: rarely or never during the past year weight has: increased > 10 lbs what type of physical activity do you participate in: other details: different work outs frequency: 3-4 times per week duration: 15-30 minutes/day seatbelt use: always do you feel safe at home: Yes Vital Signs Vital Signs Vital Signs: 12/04/24 06:27 12/04/24 06:27 12/04/24 06:48 Temperature 97.6 F L 97.6 F L Temperature Source Temporal Pulse Rate 81 81 Respiratory Rate 17 17 Respiratory Pattern Normal Blood Pressure 123/66 H 123/66 H Blood Pressure Mean 85 Blood Pressure Source Monitor Blood Pressure Position Semi-Fowlers Blood Pressure Location Left Arm Pulse Ox 98 98 Oxygen Delivery Method Room Air Room Air Weight Weight: 328 lb 7.82 oz Body Mass Index (BMI) 51.4 Physical Exam Const alert, oriented x3 and no apparent distress Results Lab / Micro Data 11/25/24 10:07 Labs: Laboratory Results - last 24 hr 12/04/24 06:15: Urine Test Negative Assessment & Plan Assessment/Plan (1) Biliary dyskinesia: PLAN: Plan Plan is for robotic cholecystectomy today. Surgery will begin momentarily
--- NOTE | 2024-12-04 07:30 | GALL_PTH ---
PATIENT: JOSE G MODI [place] [facility] [place][id number] AGE/SX: 24/F ROOM: RE12/04/[address]: Dr. Luis Pandya MD : 2000 BED: DIS: 12/04/2024 SPEC #: [id number] RECD: 12/04/24 09:40 STATUS: DOMINIQUE RECathy #: [id number] TESSA: 12/04/24 07:[address]: Luis Pandya DEPT: SURGICAL PATHOLOGY RECD BY: Jefferson Rapp ENTERED: 12/04/24 10:47 SP TYPE: JOB PALMER DR: JEFF VELASCO Tissues: A - Gallbladder, NOS Procedures: Surgery Specimen Level III HEADER OPERATION: Robotic cholecystectomy PRE-OP DIAGNOSIS: Biliary dyskinesia TISSUE SUBMITTED: A- Gallbladder MICROSCOPIC DIAGNOSIS A. Gallbladder, robotic cholecystectomy: * Mild chronic cholecystitis with cholesterolosis MICROSCOPIC DESCRIPTION Slides are reviewed. GROSS DESCRIPTION A. Received in formalin labeled with the patient's name and date of . Designated as gallbladder is a6.4 x 3.3 x 0.7 cm dias-pink, focally congested and open gallbladder. There is a defect near adjacent to the presumed, clamped cystic duct (inked black, shaved); the patency is unable to be determined. A lymph node is not present. Opening reveals pink-red focally ulcerated and hemorrhagic, granular mucosa with a maximum wall thickness of 0.2 cm. No bile or choleliths are identified. Cholesterolosis is present. Assistant Center Manager sections are submitted in 1 cassette. [place] 12/04/2024 CPT:16990
--- NOTE | 2024-12-04 07:30 | GALL_PTH ---
PATIENT: JOSE G MODI [place] [facility] [place][id number] AGE/SX: 24/F ROOM: RE12/04/[address]: Dr. Luis Pandya MD : 2000 BED: DIS: 12/04/2024 SPEC #: [id number] RECD: 12/04/24 09:40 STATUS: DOMINIQUE RECathy #: [id number] TESSA: 12/04/24 07:[address]: Luis Pandya DEPT: SURGICAL PATHOLOGY RECD BY: Jefferson Rapp ENTERED: 12/04/24 10:47 SP TYPE: JOB PALMER DR: JEFF VELASCO Tissues: A - Gallbladder, NOS Procedures: Surgery Specimen Level III HEADER OPERATION: Robotic cholecystectomy PRE-OP DIAGNOSIS: Biliary dyskinesia TISSUE SUBMITTED: A- Gallbladder MICROSCOPIC DIAGNOSIS A. Gallbladder, robotic cholecystectomy: * Mild chronic cholecystitis with cholesterolosis MICROSCOPIC DESCRIPTION Slides are reviewed. GROSS DESCRIPTION A. Received in formalin labeled with the patient's name and date of . Designated as gallbladder is a6.4 x 3.3 x 0.7 cm dias-pink, focally congested and open gallbladder. There is a defect near adjacent to the presumed, clamped cystic duct (inked black, shaved); the patency is unable to be determined. A lymph node is not present. Opening reveals pink-red focally ulcerated and hemorrhagic, granular mucosa with a maximum wall thickness of 0.2 cm. No bile or choleliths are identified. Cholesterolosis is present. Conductor Sleeping Car sections are submitted in 1 cassette. [place] 12/04/2024 CPT:92680
[2024-12-04] MEDS: Lidocaine 1% (5 ml sdv) 5 ML Vial IV (07:39)
[2024-12-04] MEDS: fentaNYL 100 MCG/2 ML Ampul IV (07:39)
[2024-12-04] MEDS: Bupiv/Epi 0.25% 30 ML Vial (09:04)
--- NOTE | 2024-12-04 09:06 | DCINST_ITS ---
Discharge Instructions Diet Discharge Diet: Light diet - advance as tolerated Activity Discharge Activity: Return to Normal Activity May shower in (days): 1 Ice area for (Minutes): 30 Lifting Restrictions: No lifting pushing or pulling more than 20 pounds for 3 to 4 weeks Dressing / Incision Call your doctor if your incision/area has: Continuous Slow Oozing, Sudden Increased Bleeding, Increased Pain/ Swelling, Increased Redness, Foul Smelling Discharge and Swelling at the incision site Call your doctor if you observe: Fever of 101 or Higher Cleanse incision/area with: Soap & Water Follow Up Care Please Follow Up With: Luis Pandya MD When: 2 weeks. Please call office to schedule appointment. Test Results: Test results from this visit will be discussed in further detail at your follow- up appointment, if applicable. Discharge Plan Admission Primary Reason for Your Visit: Robotic cholecystectomy Attending Provider: Luis Pandya Primary Care Provider: BRIAN DOMINIQUE Instructions Print Language: Bangladeshi Discharge Orders/Prescriptions Prescriptions: New oxycodone 5 mg tablet 5 mg PO TID PRN (Reason: pain) 4 Days Qty: 12 0RF Continued rabeprazole 20 mg tablet,delayed release (DR/EC) 20 mg PO QDAY Qty: 90 1RF calcium polycarbophil [FiberCon] 625 mg tablet 1,250 mg PO QDAY Qty: 180 1RF buspirone 5 mg tablet 5 mg PO TID Qty: 90 2RF fluoxetine [Prozac] 10 mg capsule 10 mg PO QDAY Qty: 30 2RF metformin 500 mg tablet 500 mg PO BID Qty: 60 2RF spironolactone 25 mg tablet 50 mg PO DAILY tranexamic acid 650 mg tablet 1,300 mg PO TID PRN (Reason: bleeding) valacyclovir 500 mg tablet 500 mg PO QDAY 30 Days Qty: 30 11RF dicyclomine 10 mg capsule 10 mg PO TID Qty: 90 1RF medroxyprogesterone 10 mg tablet 10 mg PO .COMPLEX Qty: 10 3RF Rx Instructions: 10 mg orally first 10 days each month.; Referrals / Follow Up: BRIAN DOMINIQUE CRNP [Primary Care Provider, Family Practice] Disposition Disposition (needs filled in before D/C Order can be placed): Home, Self Care
[2024-12-04] MEDS: dexMEDEtomidine 200 MCG/2 ML ML 40 MCG IV (09:09)
--- NOTE | 2024-12-04 09:10 | OP.PCM_ITS ---
Procedures Digestive 40xxx-49xxx: 40262 Laparo cholecystectomy/graph Operative Report (Standard) Operative Information Date of Procedure: 12/04/24 Pre-Operative Diagnosis: Biliary dyskinesia Post-Operative Diagnosis: Same Surgery/Procedure Performed: Robotic cholecystectomy with ICG cholangiograms license examiner: Yes Manager Pediatric: Aleta Boggs Tasks completed by medical office assistant instructor: Closing, Trocar and Other Type of Anesthesia: General and Local RN Documented Start/Stop Times: Operation Date: 12/04/24 07:30 Case Time Into Pre-Op 12/04/24 06:03 Out of Pre-Op 12/04/24 07:27 Anesthesia Start 12/04/24 07:30 Into Room 12/04/24 07:30 Procedure Start 12/04/24 08:02 Procedure Start Time: 08:02 Procedure Stop Time: 09:12 Select all DRAINS/GRAFTS/IMPLANTS that apply: None Estimated Blood Loss: 10 Specimen collected: Yes Description of specimen(s) removed: Gallbladder Description of surgery: The patient is a 24-year-old female recently seen to the office with right upper quadrant pain. She is also being worked up through GI. She underwent a recent HIDA scan that showed a low ejection fraction consistent with biliary dyskinesia. She presented with symptoms of right upper quadrant pain worsened with eating. Her symptoms seem consistent with biliary colic and so a robotic cholecystectomy was offered to her. We discussed the details of the planned procedure as well as the risks, benefits, and alternatives and she wished to proceed. She was brought to the operative room today following informed consent. She was placed supine on the operative table with arms outstretched and arm boards. A general endotracheal anesthesia was induced. Once adequately sedated the arms were tucked at her side. The abdomen was then prepped and draped in the usual sterile manner. An incision was made just above the umbilicus which a 5 mm trocar was placed optically. This was placed without incident. Once in place the abdomen is then fully insufflated with CO2 gas. A 5 mm 0 degree scope was inserted. There were no signs of bowel or vascular injury. The abdomen is then fully insufflated with CO2 gas. Next an 8 mm trocar was placed on the right side of the abdomen at about the same level as the umbilicus. This was placed under direct visualization without difficulty. Another 8 mm trocar was placed on the left side of the abdomen also about the same level as the umbilicus. Finally another 8 mm trocar was placed under direct visualization in the left upper quadrant. The original 5 mm umbilical trocar was switched through an 8 mm robotic trocar. The da Hitesh robot was then brought onto the operative field and appropriately docked. The instrumentation was inserted as well. Prior to this the patient was placed in a reverse Trendelenburg position with some roll to the left to improve visualization. Once the robot was docked. The gallbladder was reflected in a cephalad direction. It did not appear to be grossly thickened. It was distended and fairly thin-walled. It was reflected in a cephalad direction with 1 grasper and then the other grasper was used to manipulate the gallbladder from left to right. The peritoneum on either side of the gallbladder was then incised using curved scissors and electrocautery. This improved mobilization of the gallbladder to facilitate exposure/dissection of the infundibulum. ICG cholangiogram was utilized and the cystic duct was identified. The infundibulum was then carefully dissected. The cystic duct and cystic artery were then dissected circumferentially. The lower aspect of the gallbladder was dissected free of the liver bed such that 2 and only 2 structures were identified going to the gallbladder. At this point a critical view of safety was identified. After the critical view was obtained, a hole developed in the anterior aspect of the gallbladder causing spillage of significant bile. The cystic duct was clipped proximally and distally and transected. The cystic artery was clipped proximally and distally and also transected. Transection was performed using electrocautery on a J-hook. The gallbladder was then freed up and removed from the liver bed. Once freed was placed Endobag and brought out through the umbilical trocar site.. The abdomen was then irrigated with a total of about 3 L of saline until clear. Hemostasis was excellent. Fascia at the umbilical trocar site was closed using no PDS with the aid of the fascial closure device. The remaining trocars were opened up and insufflation was allowed to escape. Local anesthetic was injected into the incisions. Incisions were then closed with 4-0 Vicryl. Skin glue was applied as dressing. She was awakened from anesthesia and taken recovery in good condition Surgical Findings: Distended gallbladder Complications Complications: No Admit VTE Documentation VTE Present on Admission: No VTE Mechan Device Prophylaxis: SCD's VTE Pharm Prophylaxis ordered?: No Reason prophylaxis not ordered: Treatment Not Indicated
--- NOTE | 2024-12-04 09:29 | PCM.POST.ANE ---
Anesthesia: Postop Eval I Current Vital Signs Temperature: 97.5 F Pulse Rate: 87 Blood Pressure: 136/84 Respiratory Rate: 16 Pulse Ox: 93 Oxygen Delivery Method: Nasal Cannula Oxygen Flow Rate (L/min): 2 Assessment Airway patent: Yes Spontaneous unlabored respirations: Yes Mental status: Awake and Calm nausea: No Vomiting: No Anesthesia Complication: No Fluid Hydration Crystalloid volume administer (ml): 800 Total IV fluid infused: 800 Progress Note Anesthesia document: Postop Eval 1 completed: Yes
--- NOTE | 2024-12-04 14:14 | POSTOPAN2_ITS ---
Anesthesia Postop Eval I Sum Postop Eval Completion status Anesthesia document: Postop Eval 1 completed: Yes Anesthesia Postop Eval I Summary Anesthesia Postop Eval I Summary: Anesthesia Postop Eval I: Assessment Summary Airway patent Yes 12/04/24 09:30 [email or web address] Spontaneous unlabored Yes 12/04/24 09:30 MARBLE WORKER.GDOTT respirations Mental status Awake,Calm 12/04/24 09:30 MARBLE WORKER.GDOTT nausea No 12/04/24 09:30 MARBLE WORKER.GDOTT Vomiting No 12/04/24 09:30 MARBLE WORKER.GDOTT Anesthesia Postop Eval I: Fluid Summary Crystalloid volume administer 800 12/04/24 09:30 MARBLE WORKER.GDOTT (ml) Colloids volume administered ( ml) Blood Product volume administered (ml) Total IV fluid infused 800 12/04/24 09:30 MARBLE WORKER.GDOTT Anesthesia Postop Eval I: Summary Notes Anesthesia Complication No 12/04/24 09:30 MARBLE WORKER.GDOTT Anesthesia Complication Comment: Post-operative progress note Anesthesia: Postop Eval II Evaluation Mental status: Awake and Calm Pain Level: 1 nausea: No Vomiting: No Complications Anesthesia Complication: No
--- NOTE | 2024-12-04 14:14 | POSTOPAN2_ITS ---
Anesthesia Postop Eval I Sum Postop Eval Completion status Anesthesia document: Postop Eval 1 completed: Yes Anesthesia Postop Eval I Summary Anesthesia Postop Eval I Summary: Anesthesia Postop Eval I: Assessment Summary Airway patent Yes 12/04/24 09:30 FARMWORKER [email or web address].[email or web address] Spontaneous unlabored Yes 12/04/24 09:30 FARMWORKER GENERAL.GDOTT respirations Mental status Awake,Calm 12/04/24 09:30 FARMWORKER GENERAL.GDOTT nausea No 12/04/24 09:30 FARMWORKER GENERAL.GDOTT Vomiting No 12/04/24 09:30 FARMWORKER GENERAL.GDOTT Anesthesia Postop Eval I: Fluid Summary Crystalloid volume administer 800 12/04/24 09:30 FARMWORKER GENERAL.GDOTT (ml) Colloids volume administered ( ml) Blood Product volume administered (ml) Total IV fluid infused 800 12/04/24 09:30 FARMWORKER GENERAL.GDOTT Anesthesia Postop Eval I: Summary Notes Anesthesia Complication No 12/04/24 09:30 FARMWORKER GENERAL.GDOTT Anesthesia Complication Comment: Post-operative progress note Anesthesia: Postop Eval II Evaluation Mental status: Awake and Calm Pain Level: 1 nausea: No Vomiting: No Complications Anesthesia Complication: No
--- NOTE | 2024-12-04 14:14 | PCM.POSTANE2 ---
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.[email or web address] Spontaneous unlabored Yes 12/04/24 09:30 TELEPHONE INSTALLER.GDOTT respirations Mental status Awake,Calm 12/04/24 09:30 TELEPHONE INSTALLER.GDOTT nausea No 12/04/24 09:30 TELEPHONE INSTALLER.GDOTT Vomiting No 12/04/24 09:30 TELEPHONE INSTALLER.GDOTT Anesthesia Postop Eval I: Fluid Summary Crystalloid volume administer 800 12/04/24 09:30 TELEPHONE INSTALLER.GDOTT (ml) Colloids volume administered ( ml) Blood Product volume administered (ml) Total IV fluid infused 800 12/04/24 09:30 TELEPHONE INSTALLER.GDOTT Anesthesia Postop Eval I: Summary Notes Anesthesia Complication No 12/04/24 09:30 TELEPHONE INSTALLER.GDOTT Anesthesia Complication Comment: Post-operative progress note Anesthesia: Postop Eval II Evaluation Mental status: Awake and Calm Pain Level: 1 nausea: No Vomiting: No Complications Anesthesia Complication: No
--- NOTE | 2024-12-04 14:14 | PCM.POSTANE2 ---
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 HAT STEAMER.[email or web address] Spontaneous unlabored Yes 12/04/24 09:30 FELT HAT STEAMER.GDOTT respirations Mental status Awake,Calm 12/04/24 09:30 FELT HAT STEAMER.GDOTT nausea No 12/04/24 09:30 FELT HAT STEAMER.GDOTT Vomiting No 12/04/24 09:30 FELT HAT STEAMER.GDOTT Anesthesia Postop Eval I: Fluid Summary Crystalloid volume administer 800 12/04/24 09:30 FELT HAT STEAMER.GDOTT (ml) Colloids volume administered ( ml) Blood Product volume administered (ml) Total IV fluid infused 800 12/04/24 09:30 FELT HAT STEAMER.GDOTT Anesthesia Postop Eval I: Summary Notes Anesthesia Complication No 12/04/24 09:30 FELT HAT STEAMER.GDOTT Anesthesia Complication Comment: Post-operative progress note Anesthesia: Postop Eval II Evaluation Mental status: Awake and Calm Pain Level: 1 nausea: No Vomiting: No Complications Anesthesia Complication: No
== END 2024-12-04 12:07 | disposition home or self-care (01) ==
LOC: SDC 05:59 → AC 05:59
PROVIDERS: Anesthesiology; PCP Nurse Practitioner Adult Health; Referring Provider Surgery; Visit Provider Surgery
PROC: 0FT44ZZ Resection of Gallbladder, Percutaneous Endoscopic Approach (ICD-10-PCS; CPT 47562; principal; 2024-12-04 07:10)
DX: K81.1 Chronic cholecystitis (principal); K21.9 Gastro-esophageal reflux disease without esophagitis; Z79.899 Other long term (current) drug therapy
CPT/HCPCS: 47562; S2900; 00790; 36415; 80048; 81025; 88304; 93005; J2405

== ENCOUNTER 2024-12-10 19:19 | Emergency (ER) | payer MEDICAID, SELFPAY ==
[2024-12-10 19:20] VITALS: BP 139/102; PULSE 109; RESP 16; TEMP 36.9; O2SAT 99; BMI 52.5
[2024-12-10 20:55] VITALS: BP 110/70; PULSE 80; RESP 18; TEMP 37.1; O2SAT 98
--- OUTSIDE RECORDS SUMMARY | 2024-12-10 21:31 | XMS RPT_ITS | CCD ---
Author Organization [facility] Care Team Providers Care Cargo Vessel Stewardess Name Role Phone AUSTEN, WALTER Unavailable Unavailable [...] NONE Primary Care Physician Unavailab le MAST SELLING UNDERWRITER-OCEANOLOGY TEACHER, MICHELLE Primary Care Physician PHYSICIAN, NONE Primary Care Unavailable ANDREEA BEJARANO, DR BLAYNE Parikh Attending UnavailIVANA Malcolm MD Attending Unavail able MAST SELLING UNDERWRITER-OCEANOLOGY TEACHER, MICHELLE Primary Care Unavailuzma MOURA MD, DR ZEYNEP Nichols Attending Unavai lable MAST SELLING UNDERWRITER-OCEANOLOGY TEACHER, MICHELLE Primary Care Unavailabl e PHYSICIAN, NONE Primary Care Unavailable ANDREEA BEJARANO, DR BLAYNE Parikh Attending Unavailabl e MAX BEJARANO, DR SHAW Attending Unavailab le MAST SELLING UNDERWRITER-OCEANOLOGY TEACHER, MICHELLE Primary Care Unavailabl e DERIK SELLING UNDERWRITER-OCEANOLOGY TEACHER, SAYEDA Attending Unavailab le MAST SELLING UNDERWRITER-OCEANOLOGY TEACHER, MICHELLE Primary Care Unavailabl e DERIK SELLING UNDERWRITER-OCEANOLOGY TEACHER, SAYEDA Attending Unavailab le MAST SELLING UNDERWRITER-OCEANOLOGY TEACHER, MICHELLE Primary Care Unavailabl e MAST SELLING UNDERWRITER-OCEANOLOGY TEACHER, MICHELLE Attending Unavailabl e PHYSICIAN, NONE Primary Care Unavailable DERIK SELLING UNDERWRITER-OCEANOLOGY TEACHER, SAYEDA Attending Unavailab le MAST SELLING UNDERWRITER-OCEANOLOGY TEACHER, MICHELLE Primary Care Unavailabl e MAST SELLING UNDERWRITER-OCEANOLOGY TEACHER, MICHELLE Attending Unavailabl e MAST SELLING UNDERWRITER-OCEANOLOGY TEACHER, MICHELLE Primary Care Unavailabl e DERIK SELLING UNDERWRITER-OCEANOLOGY TEACHER, SAYEDA Attending Unavailab le MAST SELLING UNDERWRITER-OCEANOLOGY TEACHER, MICHELLE Primary Care Unavailabl e MARTELL BEJARANO, DR ZEYNEP Nichols Attending Unavai lable MAST SELLING UNDERWRITER-OCEANOLOGY TEACHER, MICHELLE Primary Care Unavailabl e MAST SELLING UNDERWRITER-OCEANOLOGY TEACHER, MICHELLE Primary Care Unavailabl e DERIK SELLING UNDERWRITER-OCEANOLOGY TEACHER, SAYEDA Attending Unavailab le Health, Employee Attending Provider MAST PLANT CULTURE MANAGER, MICHELLE Primary Care Provider [phone] Assessment, Health Risk Attending Provider Unava ilable Assessment, Health Risk Referring Provider Unava ilable Herlinda MANAGER BEVERAGE-Libertad Hilario Attending Provider Herlinda MANAGER BEVERAGE-Libertad Hilario Referring Provider Dr. Zurdo Maldonado DO Emergency Provider [phone] Selina BEJARANO, Dr. Allen Primary Care Provider [phone] MAST PLANT CULTURE MANAGER, MICHELLE Referring Provider Michael MANAGER BEVERAGE-Ashley Hilario Attending Provider Dr. Zurdo Maldonado DO Attending Provider Michael MANAGER BEVERAGE-CAshley Referring Provider Dr. Tiffany Marks MD Attending Provider Selina BEJARANO, Dr. Allen Referring Provider Aimee MANAGER BEVERAGE-Simin Hilario Attending Provider Jaja BEJARANO, Dr. Moore Attending Provider [phone] Aimee MANAGER BEVERAGE-C, Simin Referring Provider [phone] MAST PLANT CULTURE MANAGER, MICHELLE Primary Care Provider [phone] Assessment, Health Risk Attending Provider Unava ilable Assessment, Health Risk Referring Provider Unava ilable Roxanne Gale Attending Provider [phone] Roxanne Gael Referring Provider [phone] Ya BEJARANO, Dr. Luis Dai Attending Provider Selina BEJARANO, Dr. Allen Primary Care Physician Assessment, Health Risk Attending Physician Unav ailable Michael MANAGER BEVERAGE-C, Ashley Attending Physician [phone] Selina BEJARANO, Dr. Allen Attending Physician [phone] Aimee MANAGER BEVERAGE-CSimin Attending Physician [phone] MAST PLANT CULTURE MANAGER, MICHELLE Primary Care Physician [phone] Jaja BEJARANO, Dr. Moore Attending Physician Roxanne Gale Attending Physician [phone] Ya BEJARANO, Dr. Luis Dai Attending Physician Jaja BEJARANO, Dr. Moore Referring Provider Willards, Tiffany Primary Care Unavailable Michael, Ashley Referring Unavailable MichaelJenniferAshley Attending Unavailable Willards, Tiffany Primary Care Unavailable MichaelJenniferAshley Attending Unavailable MAST, MICHELLE Referring Unavailable Willards, Tiffany Primary Care Unavailable Willards, Tiffany Referring Unavailable Aimee, Simin Attending Unavailable Willards, Tiffany Primary Care Unavailable Michael, Ashley Attending Unavailable Michael, Ashley Referring Unavailable MAST, MICHELLE Primary Care Unavailable Grafton, Simin Attending Unavailable Barkman, Libertad Referring Unavailable Libertad Pate Attending Unavailable MAST, MICHELLE Primary Care Unavailable Roxanne De La Cruz Referring Unavailable Roxanne De La Cruz Attending Unavailable MAST, MICHELLE Primary Care Unavailable MAST, MICHELLE Primary Care Unavailable Teresa Wilkinson Referring Unavailable Teresa Wilkinson Attending Unavailable MichaelAshley Attending Unavailable MAST, MICHELLE Primary Care Unavailable MAST, MICHELLE Referring Unavailable MAST, MICHELLE Primary Care Unavailable MAST, MICHELLE Referring Unavailable Michael, Ashley Attending Unavailable MarcanthTeresa byrne Attending Unavailable MAST, MICHELLE Referring Unavailable Willards, Tiffany Primary Care Unavailable Zurdo Maldonado Attending Unavailable Provider, Ed Physician Attending Unavailab le MAST, MICHELLE Primary Care Unavailable Michael, Ashley Attending Unavailable MAST, MICHELLE Primary Care Unavailable Assessment, Health Risk Referring Unavaila ble Assessment, Health Risk Attending Unavaila ble Assessment, Health Risk Attending Unavaila ble Willards, Tiffany Primary Care Unavailable Assessment, Health Risk Referring Unavaila ble Wanek, Luis Dai Referring Unavailable Wanek, Luis A Attending Unavailable MAST, MICHELLE Primary Care Unavailable Barkman, Libertad Referring Unavailable BarkmanLibertad Attending Unavailable MAST, MICHELLE Primary Care Unavailable Willards, Tiffany Primary Care Unavailable Michael, Ashley Referring Unavailable Michael, Ashley Attending Unavailable MAST, MICHELLE Primary Care Unavailable GraftonSimin Attending Unavailable Grafton, Simin Referring Unavailable Michael, Ashley Referring Unavailable MAST, MICHELLE Primary Care Unavailable Michael, Ashley Attending Unavailable Willards, Tiffany Primary Care Unavailable Willards, Tiffany Referring Unavailable Willards, Tiffany Attending Unavailable Wanek, Luis A Referring Unavailable Wanek, Luis Dai Attending Unavailable Wanek, Luis A Consulting Unavailable MAST, MICHELLE Primary Care Unavailable MAST, MICHELLE Primary Care Unavailable MAST, MICHELLE Referring Unavailable Aimee, Simin Attending Unavailable Wanek, Luis A Attending Unavailable MAST, MICHELLE Primary Care Unavailable Michael, Ashley Referring Unavailable MAST, MICHELLE Primary Care Unavailable MAST, MICHELLE Referring Unavailable Aimee, Simin Attending Unavailable MAST, MICHELLE Primary Care Unavailable MAST, MICHELLE Referring Unavailable Aimee, Simin Attending Unavailable Allergies Allergy Classification Reported Allergen(s) Allergy Type Date of Onset Reaction(s) Facility (1 source) Neomycin; Translations: [neomycin ophthalmic] Drug Allergy [place] Rep[facility] Medications Current Medications Medication Drug Class(es) [...] A DAY 90 August 13, 2024 4:53pm Complies with drug therapy calcium polycarbophil [...] mg oral tablet (20 sources) Biguanide Start: End: take 1 tablet by mouth twice daily Metformin 500 mg tablet Active 500 mg PO TWICE A DAY 60 2 August 13, 2024 4:54pm Complies with drug therapy Start: 10-17-2023 End: 07-29-2024 take 1 tablet by mouth once daily Metformin 500 mg tablet Discontinued 500 mg PO DAILY October 17, 2023 12:00am July 29, 2024 3:32pm Start: 04-23-2023 MetFORMIN (Eqv -Glucophage XR) 500 mg oral tablet, EXTENDED RELEASE Dose : 500 mg = 1 tab(s), Oral, BID, # 60 tab(s), 11 Refill(s), Pharmacy: 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/pharmacy #[id number], PCOS (polycystic ovary syndrome) of bilateral [...] food, # 30 tab(s), 11 Refill(s), Pharmacy: 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/pharmacy #[id number], PCOS (polycystic ovary syndrome) of bilateral [...] Active 500 mg PO daily 30 30 11 May 26, 2024 7:05am HSV Complies with [...] 0 Refill(s), 04/25/23 9:41:00 AM EST, Pharmacy: [facility]/pharmacy #[id number], 172, cm, 02/23/23 15:59:00 EST, Height, [...] sharps container, alcohol wipes, and needles/syringes levonorgestrel 0.199167 mg/hr intrauterine system (6 sources) Progestin, Progestin-containi [...] mg tablet Discontinued 0.35 mg PO daily 16 05November 24, 2024 12:00am November 25, 2024 9:48am ondansetron 4 mg disintegrating oral tablet (3 sources) Serotonin-3 Receptor Antagonist Start: 06-25-2023 End: 06-28-2023 ondansetron 4 mg oral tablet, disintegrating Dose : 4 mg = 1 tab(s), Oral, q6hr, PRN as needed for nausea/vomiting, # 12 tab(s), 0 Refill(s), Pharmacy: [facility]/pharmacy #[id number], Nausea with vomiting, 173.8, cm, 06/25/23 16:22:00 [...] postoperative pain Other acute postprocedural pain Pnv No.330-Bz-Hx4-Dha-Ep a-Fish ( Gummies) 400 mcg-35 mg- 25 mg-5 mg Tablet,Chewable (20 sources) Start: 11-26-2021 End: 10-17-2023 Pnv No.965-Nb-Lq4-Dha-Epa -Fish ( Gummies) 400 mcg-35 mg- 25 mg-5 mg Tablet,Chewable Discontinued 2 {tbl} PO DAILY November 26, 2021 12:00am October 17, 2023 11:34am Start: 11-26-2021 End: 10-17-2023 Pnv No.981-Sx-Yx6-Dha-Epa-Fi sh ( Gummies) 400 mcg-35 mg- 25 mg-5 mg Tablet,Chewable Discontinued 2 {tbl} PO DAILY November 26, 2021 12:00am October 17, 2023 11:34am Start: 11-26-2021 take 2 tablets by mo uth once daily Pnv No.060-Kd-Ke9-Yge-Mgh-Burs ( Gummies) 400 mcg-35 mg- 25 mg-5 mg Tablet,Chewable Active 2 TABLET PO DAILY November 25, 2021 11:00pm Start: 11-26-2021 take 2 tablets by mo uth once daily Pnv No.590-Jg-Fz7-Xer-Ept-Bcfq ( Gummies) 400 mcg-35 mg- 25 mg-5 [...] Active 0.25 mg SC EVERY WEEK 2 0 September 08, 2024 11:43am administer weeks 1 [...] injector Active 2.5 mg SC EVERY WEEK Orrum 28th, 2024 12:00am for 4 weeks Tirzepatide (Weight Loss) (8 sources) Start: 09-22-2024 End: 10-21-2024 Tirzepatide (Weight Loss) (Z epbound) 2.5 mg/0.5 mL pen injector Discontinued 2.5 mg SC EVERY WEEK 2 September 22, 2024 12:00am October 21, 2024 2:59pm for 4 weeks Start: 09-22-2024 Tirzepatide (W eight Loss) (Zepbound) 2.5 mg/0.5 mL pen injector Active 2.5 mg SC EVERY WEEK 2 September 22, 2024 12:00am for 4 weeks [...] without cholangitis or cholecystitis without obstruction] Onset: 12-09-2024 05-04-2019 Episodic Blindness and vision defects (17 [...] diet, recom mend AOM- qsymia or contrave. traffic rate computer consult ordered Other nutritional; endocrine; and metabolic [...] Test Name Value Interpretation Reference Range Facility Discharge Instructionon 11-19 Discharge Instruction [facility] Medical Records Department [address] [place] [address] Instructions for Home/Discharge Instructions 12/04/24 0906 MR#: [id number] Acct: [id number] Name: JUANITA PAULINO Rep #: [id number] : 2000 24 From: Luis Pandya MD PCP: JEFF VELASCO Status:REG [facility] Discharge Instructions Diet Discharge Diet: Light diet - advance as tolerated Activity Discharge Activity: Return to Normal Activity May shower in (days): 1 Ice area for (Minutes): 30 Lifting Restrictions: No lifting pushing or pulling more than 20 pounds for 3 to 4 weeks Dressing / Incision Call your doctor if your incision/area has: Continuous Slow Oozing, Sudden Increased Bleeding, Increased Pain/ Swelling, Increased Redness, Foul Smelling Discharge and Swelling at the incision site Call your doctor if you observe: Fever of 101 or Higher Cleanse incision/area with: Soap Water Follow Up Care Please Follow Up With: Luis Pandya MD When: 2 weeks. Please call office to schedule appointment. Test Results: Test results from this visit will be discussed in further detail at your follow-up appointment, if applicable. Discharge Plan Admission Primary Reason for Your Visit: Robotic cholecystectomy Attending Provider: Luis Pandya Primary Care Provider: MICHELLE MELLO Instructions Print Language: Sami Discharge Orders/Prescriptions Prescriptions: New oxycodone 5 mg tablet 5 mg PO TID PRN (Reason: pain) 4 Days Qty: 12 0RF Continued rabeprazole 20 mg tablet,delayed release (DR/EC) 20 mg PO QDAY Qty: 90 1RF calcium polycarbophil [FiberCon] 625 mg tablet 1,250 mg PO QDAY Qty: 180 1RF buspirone 5 mg tablet 5 mg PO TID Qty: 90 2RF fluoxetine [Prozac] 10 mg capsule 10 mg PO QDAY Qty: 30 2RF metformin 500 mg tablet 500 mg PO BID Qty: 60 2RF spironolactone 25 mg tablet 50 mg PO DAILY tranexamic acid 650 mg tablet 1,300 mg PO TID PRN (Reason: bleeding) valacyclovir 500 mg tablet 500 mg PO QDAY 30 Days Qty: 30 11RF dicyclomine 10 mg capsule 10 mg PO TID Qty: 90 1RF medroxyprogesterone 10 mg tablet 10 mg PO .COMPLEX Qty: 10 3RF Rx Instructions: 10 mg orally first 10 days each month.; Referrals / Follow Up: MICHELLE MELLO CRNP [Primary Care Provider, Family Practice] Disposition Disposition (needs filled in before D/C Order can be placed): Home, Self Care 12/04/24909 Luis Pandya MD CC: JEFF VELASCO Signed Normal [facility] MR/POSTOP.Rama 12-04-2024 MR/POSTOP.[facility] Medical Records Department [address] [place] [address] Anesthesia Postop Eval I 12/04/24928 MR#: [id number] Acct: [id number] Name: JUANITA PAULINO Rep #: [id number] : 2000 From: Kathleen Szymanski CRNA PCP: JEFF VELASCO Status:REG [facility] Y Race: C Location: [place] [address] Anesthesia: Postop Eval I Current Vital Signs Temperature: 97.5 F Pulse Rate: 87 Blood Pressure: 136/84 Respiratory Rate: 16 Pulse Ox: 93 Oxygen Delivery Method: Nasal Cannula Oxygen Flow Rate (L/min): 2 Assessment Airway patent: Yes Spontaneous unlabored respirations: Yes Mental status: Awake and Calm nausea: No Vomiting: No Anesthesia Complication: No Fluid Hydration Crystalloid volume administer (ml): 800 Total IV fluid infused: 800 Progress Note Anesthesia document: Postop Eval 1 completed: Yes 12/04/24929 Date Kathleen Szymanski CRNA Cosigner Signature: Date CC: Signed Normal [facility] MR/[id number] 12-04-2024 [facility] Medical Records Department [address] [place] [address] Anesthesia Postop Eval II 12/04/24 1414 MR#: [id number] Acct: [id number] Name: JUANITA PAULINO Rep #: [id number] : 2000 24 From: Alex Epps MD PCP: JEFF VELASCO Status:DEP SD Y Race: C Location: [facility] Anesthesia Postop Eval I Sum Postop Eval Completion status Anesthesia document: Postop Eval 1 completed: Yes Anesthesia Postop Eval I Summary Anesthesia Postop Eval I Summary: Anesthesia Postop Eval I: Assessment Summary Airway patent Yes 12/04/24 09:30 LICENSED OCCUPATIONAL THERAPIST.GDOTT Spontaneous unlabored Yes 12/04/24 09:30 LICENSED OCCUPATIONAL THERAPIST.GDOTT respirations Mental status Awake,Calm 12/04/24 09:30 LICENSED OCCUPATIONAL THERAPIST.GDOTT nausea No 12/04/24 09:30 LICENSED OCCUPATIONAL THERAPIST.GDOTT Vomiting No 12/04/24 09:30 LICENSED OCCUPATIONAL THERAPIST.GDOTT Anesthesia Postop Eval I: Fluid Summary Crystalloid volume administer 800 12/04/24 09:30 LICENSED OCCUPATIONAL THERAPIST.GDOTT (ml) Colloids volume administered ( ml) Blood Product volume administered (ml) Total IV fluid infused 800 12/04/24 09:30 LICENSED OCCUPATIONAL THERAPIST.GDOTT Anesthesia Postop Eval I: Summary Notes Anesthesia Complication No 12/04/24 09:30 LICENSED OCCUPATIONAL THERAPIST.GDOTT Anesthesia Complication Comment: Post-operative progress note Anesthesia: Postop Eval II Evaluation Mental status: Awake and Calm Pain Level: 1 nausea: No Vomiting: No Complications Anesthesia Complication: No 12/04/24 1414 Date Alex Epps MD Cosigner Signature: Date CC: Signed Normal [facility] Operative Reporton 5 Operative Report [facility] Medical Records Department [address] [place] [address] Operative Report 12/04/24909 MR#: [id number] Acct: [id number] Name: JUANITA PAULINO Rep #: [id number] : 2000 24 From: Luis Pandya MD PCP: JEFF VELASCO Status:REG [facility] Location: [place] [address]- Procedures Digestive 40xxx-49xxx: [id number] Laparo cholecystectomy/graph Operative Report (Standard) Operative Information Date of Procedure: 12/04/24 Pre-Operative Diagnosis: Biliary dyskinesia Post-Operative Diagnosis: Same Surgery/Procedure Performed: Robotic cholecystectomy with ICG cholangiograms infection prevention specialist: Yes Aerospace Medicine Physician: Aleta Boggs Tasks completed by surgeon assistant: Closing, Trocar and Other Type of Anesthesia: General and Local RN Documented Start/Stop Times: Operation Date: 12/04/24 07:30 Case Time Into Pre-Op 12/04/24 06:03 Out of Pre-Op 12/04/24 07:27 Anesthesia Start 12/04/24 07:30 Into Room 12/04/24 07:30 Procedure Start 12/04/24 08:02 Procedure Start Time: 08:02 Procedure Stop Time: 09:12 Select all DRAINS/GRAFTS/IMPLANTS that apply: None Estimated Blood Loss: 10 Specimen collected: Yes Description of specimen(s) removed: Gallbladder Description of surgery: The patient is a 24-year-old female recently seen to the office with right upper quadrant pain. She is also being worked up through GI. She underwent a recent HIDA scan that showed a low ejection fraction consistent with biliary dyskinesia. She presented with symptoms of right upper quadrant pain worsened with eating. Her symptoms seem consistent with biliary colic and so a robotic cholecystectomy was offered to her. We discussed the details of the planned procedure as well as the risks, benefits, and alternatives and she wished to proceed. She was brought to the operative room today following informed consent. She was placed supine on the operative table with arms outstretched and arm boards. A general endotracheal anesthesia was induced. Once adequately sedated the arms were tucked at her side. The abdomen was then prepped and draped in the usual sterile manner. An incision was made just above the umbilicus which a 5 mm trocar was placed optically. This was placed without incident. Once in place the abdomen is then fully insufflated with CO2 gas. A 5 mm 0 degree scope was inserted. There were no signs of bowel or vascular injury. The abdomen is then fully insufflated with CO2 gas. Next an 8 mm trocar was placed on the right side of the abdomen at about the same level as the umbilicus. This was placed under direct visualization without difficulty. Another 8 mm trocar was placed on the left side of the abdomen also about the same level as the umbilicus. Finally another 8 mm trocar was placed under direct visualization in the left upper quadrant. The original 5 mm umbilical trocar was switched through an 8 mm robotic trocar. The da Hitesh robot was then brought onto the operative field and appropriately docked. The instrumentation was inserted as well. Prior to this the patient was placed in a reverse Trendelenburg position with some roll to the left to improve visualization. Once the robot was docked. The gallbladder was reflected in a cephalad direction. It did not appear to be grossly thickened. It was distended and fairly thin-walled. It was reflected in a cephalad direction with 1 grasper and then the other grasper was used to manipulate the gallbladder from left to right. The peritoneum on either side of the gallbladder was then incised using curved scissors and electrocautery. This improved mobilization of the gallbladder to facilitate exposure/dissection of the infundibulum. ICG cholangiogram was utilized and the cystic duct was identified. The infundibulum was then carefully dissected. The cystic duct and cystic artery were then dissected circumferentially. The lower aspect of the gallbladder was dissected free of the liver bed such that 2 and only 2 structures were identified going to the gallbladder. At this point a critical view of safety was identified. After the critical view was obtained, a hole developed in the anterior aspect of the gallbladder causing spillage of significant bile. The cystic duct was clipped proximally and distally and transected. The cystic artery was clipped proximally and distally and also transected. Transection was performed using electrocautery on a J-hook. The gallbladder was then freed up and removed from the liver bed. Once freed was placed Endobag and brought out through the umbilical trocar site.. The abdomen was then irrigated with a total of about 3 L of saline until clear. Hemostasis was excellent. Fascia at the umbilical trocar site was closed using no PDS with the aid of the fascial closure device. The remaining trocars were opened up and insufflation was allowed to escape. Local anesthetic was (more content not included)... Normal [facility] ,Urineon 12-04-2024 Beta HCG ( test) Ql (U) Negative Normal [facility] Comment on above: Result Comment: Very dilute urine specimens, as indicated by a low specific gravity, may not contain development representative levels of hCG. If is still suspected, a first morning urine specimen should be collected 48 hours later and tested. Performed By: #### L 500.3400, L3410.9992 #### [facility] [address] [place], [address] 12 Lead EKGon 11-25-2024 12 Lead EKG [facility] Cardiovascular Services [address] [place] [address] 12 Lead EKG 11/25/24 0956 MR#: [id number] Acct: [id number] Name: JUANITA PAULINO Rep #: [id number] : 2000 24 From: Agusto Pwoers MD Attending Dr: Dr. Luis Pandya MD Status: [place] E SDC Ordering Dr: Keyur Neal MD Date: 11/25/24 Location: [facility] Sex: F C Admitted: Test Reason : PREOP Blood Pressure : */* mmHG Vent. Rate : 77 BPM Atrial Rate : 77 BPM P-R Int : 164 ms QRS Dur : 100 ms QT Int : 388 ms P-R-T Axes : 23 66 24 degrees QTcB Int : 439 ms Normal sinus rhythm Normal ECG Confirmed by NISH BEJARANO, AGUSTO ([id number]), book or script editor ALFONSO GONZALEZ ([id number]) on 11/25/2024 1:47:18 PM Referred By: Luis Pandya Confirmed By: AGUSTO POWERS MD 11/25/24 1347 Date Agusto Powers MD CC: Dr. Keyur Neal MD; Dr. Luis Pandya MD; JEFF VELASCO Signed Normal [facility] Basic Metabolic Profile (BMP )on 11-25-2024 BUN/CRE 14.5 RATIO Normal 10-20 [facility] Comment on above: Performed By: #### L 500.2500 #### [facility] [address] [facility] [id number] Calcium [Mass/Vol] 9.5 mg/dL Normal 7.6-11.0 [facility] Comment on above: Performed By: #### L 500.2500 #### [facility] [address] [facility] [address] Chloride [Moles/Vol] 105 mmol/L Normal 98-108 [facility] Comment on above: Performed By: #### L 500.2500 #### [facility] [address] [place], [address] CO2 [Moles/Vol] 22.7 mmol/L Normal 21.0-32.0 [facility] Comment on above: Performed By: #### L 500.2500 #### [facility] [address] [place], [address] Creatinine [Mass/Vol] 0.65 mg/dL Low 0.70-1.[address] [facility] Comment on above: Performed By: #### L 500.2500 #### [facility] [address] [place], [address] ECRCL 197.87 ml/min Normal 50-250 [facility] Comment on above: Performed By: #### L 500.2500 #### [facility] [address] [place], [address] GAP 13 Normal 5-15 [facility] Comment on above: Performed By: #### L 500.2500 #### [facility] [facility] [address] [place], [address] GFR/1.73 sq M.predicted among non-blacks MDRD (S/P/Bld) [Vol rate/Area] 124 mL/min/{1.73_m2} Normal >60 [facility] Comment on above: Result Comment: mL/m in/1.73m2 CKD-EPI Creatinine Equation (2020) Performed By: #### L 500.2500 #### [facility] [address] [place], [address] Glucose [Mass/Vol] 94 mg/dL Normal 70-99 [facility] Comment on above: Performed By: #### L 500.2500 #### [facility] [address] [place], [address] Potassium [Moles/Vol] 3.8 mmol/L Normal 3.3-5.[address] [facility] Comment on above: Performed By: #### L 500.2500 #### [facility] [address] [place], [place], [address] Sodium [Moles/Vol] 141 mmol/L Normal 133-145 [facility] Comment on above: Performed By: #### L 500.2500 #### [facility] [address] [place], [place], [address] Urea nitrogen [Mass/Vol] 10 mg/dL Normal 4-19 [facility] Comment on above: Performed By: #### L 500.2500 #### [facility] [address] 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 Normal [facility] Absolute lymphocyte countOrd ered By: Teresa Wilkinson on 11-19-2024 Lymphocytes Auto (Unsp spec) [#/Vol] 2.30 10*3/uL 0.83-4.51 [facility] Absolute neutrophil countOrd ered By: Teresa Wilkinson on 11-19-2024 Neutrophils (Bld) [#/Vol] 4.5 10*3/uL 2.0-7.7 [facility] Automated blood erythrocyte countOrdered By: Teresa Wilkinson on 11-19-2024 RBC (Bld) [#/Vol] 4.83 10*6/uL Normal 4.2-5.4 [facility] Comment on above: Performed By: #### L 700.8000 #### [facility] [address] [place], [address] Automated blood hematocrit ( percentage)Ordered By: Teresa Tracymichael on 11-19-2024 Hematocrit (Bld) [Volume fraction] 37.8 % Normal 37-47 [facility] Comment on above: Performed By: #### L 700.8000 #### [facility] [address] [place], [address] Automated lymphocyte count a s percentage of total leukocytesOrdered By: Teresa Wilkinson on 11-19-2024 Lymphocytes/100 WBC Auto (Unsp spec) 30.3 % 19-41 [facility] Basophil percentageOrdered B y: Teresa Jaja on 11-19-2024 Basophils/100 WBC (Bld) 0.5 % Normal 0-1 [facility] Comment on above: Performed By: #### L 700.8000 #### [facility] [address] [place], [address] CBC W/Diff, Automatedon 10-0 Absolute Lymph 2.30 X10 3/uL Normal 0.83-4.51 [facility] Comment on above: Performed By: #### L 700.8000 #### [facility] [address] [place], [address] Absolute Neut 4.5 X10 3/uL Normal 2.0-7.7 [facility] Comment on above: Performed By: #### L 700.8000 #### [facility] [address] [place], [address] IG% 0.300 Normal 0.0-0.9 [facility] Comment on above: Result Comment: IG% - Immature Granulocytes (promyelocytes, myelocytes and metamyelocytes) > 1% indicates that a LEFT SHIFT is Present. Performed By: #### L 700.8000 #### [facility] [address] [place], [address] Lymphocytes/100 WBC (Bld) 30.3 % Normal 19-41 [facility] Comment on above: Performed By: #### L 700.8000 #### [facility] [address] [place], [address] Nucleated RBC (Bld) [#/Vol] 0 10*3/uL Normal 0-5 [facility] Comment on above: Performed By: #### L 700.8000 #### [facility] [address] [place], [address] RDW SD 38.4 fl Normal 35.1-43.9 [facility] Comment on above: Performed By: #### L 700.8000 #### [facility] [address] [place], [address] Eosinophil percentageOrdered By: Teresa Wilkinson on 11-19-2024 Eosinophils/100 WBC (Bld) 2.0 % Normal 0-5 [facility] Comment on above: Performed By: #### L 700.8000 #### [facility] [address] [place], [address] Erythrocyte distribution wid th ratioOrdered By: Teresa Wilkinson on 11-19-2024 Erythrocyte distribution width (RBC) [Ratio] 13.5 % Normal 11.6-14.6 [facility] Comment on above: Performed By: #### L 700.8000 #### [facility] [address] [place], [address] Erythrocyte distribution wid th standard deviationOrdered By: Teresa Wilkinson on 11-19-2024 Erythrocyte distribution width (RBC) [Ratio] 38.4 fl 35.1-43.9 [facility] Hemoglobin measurementOrdere d By: Teresa Wilkinson on 11-19-2024 Hemoglobin (Bld) [Mass/Vol] 12.5 g/dL Normal 12.0-15.0 [facility] Comment on above: Performed By: #### L 700.8000 #### [facility] [address] [place], [address] Immature granulocytes/100 WB C Auto (Bld)Ordered By: Teresa Wilkinson on 11-19-2024 Immature granulocytes/100 WBC (Bld) 0.300 % 0.0-0.9 [facility] Comment on above: IG% - Immature Granu locytes (promyelocytes, myelocytes and metamyelocytes) > 1% indicates that a LEFT SHIFT is Present. MCV (mean corpuscular volume ) determinationOrdered By: Teresa Wilkinson on 11-19-2024 MCV (RBC) [Entitic vol] 78.3 fL Low 81-99 [facility] Comment on above: Performed By: #### L 700.8000 #### [facility] [address] [place], [address] Mean corpuscular hemoglobin (MCH) determinationOrdered By: Teresa Wilkinson on 11-19-2024 MCH (RBC) [Entitic mass] 25.9 pg Low 27.0-32.0 [facility] Comment on above: Performed By: #### L 700.8000 #### [facility] [address] [place], [address] Mean corpuscular hemoglobin concentration (MCHC) determinationOrdered By: Teresa Wilkinson on 11-19-2024 MCHC (RBC) [Mass/Vol] 33.1 g/dL Normal 32-[address] [facility] Comment on above: Performed By: #### L 700.8000 #### [facility] [address] [place], [address] Mean platelet volume determi nationOrdered By: Teresa Wilkinson on 11-19-2024 Platelet mean volume (Bld) [Entitic vol] 12.1 fL High 6.2-12.0 [facility] Comment on above: Performed By: #### L 700.8000 #### [facility] [address] [place], [address] Monocyte percentageOrdered B y: Teresa Wilkinson on 11-19-2024 Monocytes/100 WBC (Bld) 7.0 % Normal 0-10 [facility] Comment on above: Performed By: #### L 700.8000 #### [facility] [address] [place], [address] Neutrophil percentageOrdered By: Teresa Wilkinson on 11-19-2024 Neutrophils/100 WBC (Bld) 59.9 % Normal 47-70 [facility] Comment on above: Performed By: #### L 700.8000 #### [facility] [address] [place], [address] Nucleated red blood cell per centageOrdered By: Teresa Wilkinson on 11-19-2024 Nucleated RBC/100 WBC (Bld) [Ratio] 0 % 0-5 [facility] Pelvic w/ Transvaginalon Pelvic w/ Transvaginal [facility] [address] [place] [address] Pelvic w/ Transvaginal MR#: [id number] Acct: [id number] Name: JUANITA PAULINO Rep #: [id number] : 2000 F 24 From: Holden Love MD PCP: JEFF VELASCO Status: REG CLI Study: Pelvic w/ Transvaginal Date of Exam: 11/19/24 Exam# [id number] Ordering Dr: Teresa Wilkinson PROCEDURE: PELVIC W/ [...] is incompletely distended US/Pelvic w/ Transvaginal IMPRESSION: Motor Driver notes IUD in the lower uterine segment, it does not extend to the fundus. Simple left adnexal cyst, no specific follow-up No free fluid Reading Location: [id number] CC: Dr. Teresa Wilkinson MD; JEFF VELASCO [facility] Sales Consultant: Signed Normal [facility] Platelet countOrdered By: Jersey Wilkinson on 11-19-2024 Platelets (Bld) [#/Vol] 271 10*3/uL Normal 150-450 [facility] Comment on above: Performed By: #### L 700.8000 #### [facility] [address] [place], [address] White blood cell (WBC) count Ordered By: Teresa Wilkinson on 11-19-2024 WBC (Bld) [#/Vol] 7.6 10*3/uL Normal 4.4-11.0 [facility] Comment on above: Performed By: #### L 700.8000 #### [facility] [address] [place], [address] Gastroenterology Visit Repor ton 10-30-2024 Gastroenterology Visit Report [facility] [place] [address] 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 Normal [facility] Surgery Visit Reporton 10-21 Surgery Visit Report [facility] [address] [place] [address] OFFICE VISIT Date of Service: 10/21/24 MR#: [id number] Acct: [id number] Name: JUANITA PAULINO Rep #: [id number] : 2000 Provider: Dr. 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 Normal [facility] Hepatobilliary Img w/Pharm I nton 10-14-2024 Hepatobilliary Img w/Pharm Int [facility] [address] [place] [address] Hepatobilliary Img w/Pharm Int MR#: [id number] Acct: [id number] Name: JUANITA PAULINO Rep #: [id number] : 2000 F 24 From: Reagan Lott PCP: JEFF VELASCO Status: REG CLI Study: Hepatobilliary Img w/Pharm Int Date of Exam: 0 10/14/24 Exam# [id number] Ordering Dr: Roxanne De La Cruz PROCEDURE: [...] 2. Negative hepatobiliary scan, otherwise. Reading Location: [place] [address] CC: JEFF VELASCO; KO Ram [facility] Sales Consultant: Signed Normal [facility] - Chemistry and C hemistry - challengeOrdered By: Simin Yu on 10-14-2024 HCG ( test) Ql (U) Negative [facility] Cardiac/Vascular Sonographer Office Visit Reporton 10-14-2024 Cardiac/Vascular Sonographer Office Visit Report [facility] [address], [address] [place] [address] OFFICE VISIT Date of Service: 10/14/24 MR#: [id number] Acct: [id number] Name: JUANITA PAULINO Rep #: [id number] : 2000 Provider: DELMIS demarco Age/Sex: 24/F [place] [facility] [place] ADDENDUM by Floresita Anglin on 10/14/24 at [...] Performing Provider: DELMIS Almonte NP Performing Location: [facility] Administered by: Simin Yu NP, JANIEC on 10/14/24 11:20 Dose Route Admin Location Dispensed Lot Number Expiration Date [place] Man ufacturer 1 insert intrauterine [facility] 1 insert [id number] 10/19/26 41294-3 [employer]OSSE[employer],PHARM DIV Date cc: * Signed Intake Vital Signs 09/18/24 08:36 09/18/24 10:21 10/14/24 10:56 Height 5 ft 7 in 5 ft 7 in 5 ft 7 in Weight: 324 lb 1 oz BMI 50.7 BP 114/71 123/80 H Intake Visit Reasons: EMB and Mirena Insertion *Per Chief Complaint: EMB and IUD insertion General Service Officer Required: No Is patient in pain?: [...] (Updated 10/14/24 @ 11:22 by Simin Yu NP, MANAGER BEVERAGE-C) HSV-2 (herpes simplex virus 2) infection IBS [...] 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 Normal [facility] Surgery Specimen Level Miguel 10-14-2024 Surgery Specimen Level IV Patient Age/Sex Location Account Attending Physician JUANITA PAULINO LABSPEC [id number] DELMIS Almonte Specimen: [id number] Received: 10/14/24 Status: DOMINIQUE Charles Num: [id number] Spec Type: JAYSON BX/C Michelle Dr: DELMIS Almonte HEADER OPERATION: Endometrial biopsy PRE-OP DIAGNOSIS: Abnormal [...] the specimen is unlikely to survive processing. [place] 10/14/2024 [facility]:[id number] Patient Age/Sex Location Account Attending Physician [facility] [id number] DELMIS Almonte Signed (signature on file) Dr. Aurea Keyes MD 10/27/24 0411 Normal [facility] Comment on above: Performed By: #### L 500.3400, L3410.9992 #### [facility] [address] [place], [address] CR w/ Reflex Mult Confirmon 09-21-2024 ANTI-DNA (DS)AB TNP Normal [facility] Comment on above: Performed By: #### L 700.8000 #### [facility] [address] [place], [address] ANTI-SS-A TNP Normal [facility] Comment on above: Performed By: #### L 700.8000 #### [facility] [address] [place], [address] ANTI-SS-B TNP Normal [facility] Comment on above: Performed By: #### L 700.8000 #### [facility] [address] [place], [address] Pelvic w/ Transvaginalon Pelvic w/ Transvaginal [facility] [address] [place] [address] Pelvic w/ Transvaginal MR#: [id number] Acct: [id number] Name: JUANITA PAULINO Rep #: [id number] : 2000 F 24 From: Addy Pierce MD PCP: JEFF VELASCO Status: REG CLI Study: Pelvic w/ Transvaginal Date of Exam: 09/19/24 Exam# [id number] Ordering Dr: Simin Yu MANAGER BEVERAGE MANAGER BEVERAGE -C PROCEDURE: PELVIC W/ TRANSVAGINAL 09/19/2024 REASON [...] w/ Transvaginal IMPRESSION: As above. Reading [facility] CC: DELMIS Yu; JEFF VELASCO Hospice Care Sales Consultant: Signed Normal [facility] Cardiac/Vascular Sonographer Office Visit Reporton 09-18-2024 Cardiac/Vascular Sonographer Office Visit Report [facility] [address], [address] [place] [address] OFFICE VISIT Date of Service: 09/18/24 MR#: [id number] Acct: [id number] Name: JUANITA PAULINO Rep #: [id number] : 2000 Provider: Dr. 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 Normal [facility] ANCAon 09-11-2024 Atypical pANCA <1:20 Normal Neg:<1:20 [facility] Comment on above: Result Comment: The atypical pANCA pattern has been observed in a significant percentage of patients with ulcerative colitis, primary sclerosing cholangitis and autoimmune hepatitis. Performed By: #### L 500.3400, L3410.9992 #### [facility] [address] [place], [place], [address] Cytoplasmic Ab <1:20 Normal Neg:<1:20 [facility] Comment on above: Performed By: #### L 500.3400, L3410.9992 #### [facility] [address] [place], [address] Perinuclear Ab. <1:20 Normal Neg:<1:20 [facility] Comment on above: Result Comment: The presence of positive fluorescence exhibiting P-ANCA or C-ANCA patterns alone is not specific for the diagnosis of Francesco's Granulomatosis (WG) or microscopic polyangiitis. Decisions about treatment should not be based solely on ANCA IFA results. The International ANCA Group Consensus recommends follow up testing of positive sera with both KY- 3 and MPO-ANCA enzyme immunoassays. As many as 5% serum samples are positive only by EIA. Ref. AM J Clin Pathol 1999;111:507-513. Performed By: #### L 500.3400, L3410.9992 #### [facility] [address] [place] [place], [address] Anti-Mitochondrial ABon 07- ANTIMITOCHON AB <20.0 Normal 0.0-20.0 [facility] Comment on above: Result Comment: Nega tive 0.0 - 20.0 Equivocal 20.1 - 24.9 Positive >24.9 Mitochondrial (M2) Antibodies are found in 90-96% of patients with primary biliary cirrhosis. Performed By: #### L 500.3400, L3410.9992 #### [facility] [address] [place], [address] Anti-Smooth Muscle ABSon ANTISMOOTH MUSC 10 Units Normal 0-19 [facility] Comment on above: Result Comment: Nega tive 0 - 19 Weak positive 20 - 30 Moderate to strong positive >30 Actin Antibodies are found in 52-85% of patients with autoimmune hepatitis or chronic active hepatitis and in 22% of patients with primary biliary cirrhosis. Performed By: #### L 500.3400, L3410.9992 #### [facility] [address] [place], [address] Ceruloplasminon 09-11-2024 CERULOPLASMIN 32.5 mg/dL Normal 19.0-39.0 [facility] Comment on above: Result Comment: Perf ormed at: CB - [facility] [address], [place] [id number] Newspaper Journalist: Gilles Carey PhD, Phone: [phone] Performed By: #### L 500.3400, L3410.9992 #### [facility] [address] [place], [place], [address] Calculated very low density lipoprotein (VLDL) cholesterol measurementOrdered By: Ashley Larose on 09-10-2024 Calculated very low density lipoprotein (VLDL) cholesterol measurement 54 mg/dL High 5-40 [facility] Ferritinon 09-10-2024 Ferritin [Mass/Vol] 135 ng/mL Normal 22-378 [facility] Comment on above: Performed By: #### L 500.3400, L3410.9992 #### [facility] [address] [place], [place], [address] Hemoglobin A1con 09-10-2024 HbA1c (Bld) [Mass fraction] 5.1 % Normal <=5.6 [facility] Comment on above: Result Comment: Norm al < 5.7 % Prediabetic 5.7 - 6.4 % Diabetic >or= 6.5 % Please note range changes. Performed By: #### L 700.8000 #### [facility] [address] [place], [place], [address] Hemoglobin A1c percentageOrd ered By: Ashley Larose on 09-10-2024 HbA1c (Bld) [Mass fraction] 5.1 % <5.7 [facility] Comment on above: Normal < 5.7 % Predi abetic 5.7 - 6.4 % Diabetic >or= 6.5 % Please note range changes. Iron measurement (mass/mass) Ordered By: Ashley Larose on 09-10-2024 Iron (Unsp spec) [Mass/Mass] 54 ug/dL 50-170 [facility] Iron+Iron Binding Capacityon 09-10-2024 Iron [Mass/Vol] 54 ug/dL Normal 50-170 [facility] Comment on above: Performed By: #### L 500.3400, L3410.9992 #### [facility] [address] [place], [address] IRON SATURATION 13.0 Normal 13-59 [facility] Comment on above: Performed By: #### L 500.3400, L3410.9992 #### [facility] [address] [place], [address] TIBC 428 ug/dL Normal 250-450 [facility] Comment on above: Performed By: #### L 500.3400, L3410.9992 #### [facility] [address] [place], [address] UIBC 374 ug/dL Normal 228-428 [facility] Comment on above: Performed By: #### L 500.3400, L3410.9992 #### [facility] [address] [place], [address] LDL calc ser/plasOrdered By: Ashley Larose on 09-10-2024 Cholesterol in LDL [Mass/Vol] 153 mg/dL [facility] Comment on above: Ozbxibkcij=409-273 m g/dL & Higher Wlct=524 mg/dL or greater Lipid Profileon 09-10-2024 CHOL:HDL 5.35 Normal [facility] Comment on above: Performed By: #### L 500.3400, L3410.9992 #### [facility] [address] [place], [address] Cholesterol [Mass/Vol] 254 mg/dL High <=200 [facility] Comment on above: Result Comment: Chol esterol level, Desirable <200 mg/dL Borderline high cholesterol 200-239 mg/dL High cholesterol >=240 mg/dL Recommendations of the NCEP Adult Treatment Panel for the following risk-cutoff thresholds for the [place] population. Performed By: #### L 500.3400, L3410.9992 #### [facility] [address] [place], [address] Cholesterol in HDL [Mass/Vol] 48 mg/dL Normal [facility] Comment on above: Result Comment: Kristy onal Cholesterol Education Program (NCEP) guidelines: <40 mg/dL: Low HDL-cholesterol (major risk factor for CHD) >= 60 mg/dL: High HDL-cholesterol (negative risk factor for CHD) HDL-cholesterol is affected by a number of factors, e.g. smoking, exercise, hormones, sex and age. Performed By: #### L 500.3400, L3410.9992 #### [facility] [address] [facility] [address] Cholesterol in LDL [Mass/Vol] 153 mg/dL Normal [facility] Comment on above: Result Comment: Bord zqudln=365-260 mg/dL Higher Tkke=422 mg/dL or greater Performed By: #### L 500.3400, L3410.9992 #### [facility] [address] [facility] [address] Cholesterol in VLDL [Mass/Vol] 54 mg/dL High 5-40 [facility] Comment on above: Performed By: #### L 500.3400, L3410.9992 #### [facility] [address] [place], [address] Triglyceride [Mass/Vol] 270 mg/dL High [facility] Comment on above: Result Comment: The drugs N-Acetylcysteine and Metamizole may falsely depress this assay. Normal range: <150 mg/dL Borderline High: 150-199 mg/dL High: 200-499 mg/dL Very High: >500 mg/dL Performed By: #### L 500.3400, L3410.9992 #### [facility] [address] [place], [address] No Panel InformationOrdered By: Ashley Larose on 09-10-2024 Unsaturated Iron Binding Capacity 374 ug/dL 228-428 [facility] Screening total cholesterol/ high density lipoprotein (HDL) cholesterol ratioOrdered By: Ashley Larose on 09-10-2024 Cholesterol.total/Choles terol in HDL [Mass ratio] 5.35 {ratio} [facility] Serum DNA double strand anti body assay (units/volume)Ordered By: Ashley Larose on 09-10-2024 DNA double strand Ab Qn (S) [facility] Comment on above: Test not performed Serum Scl-70 antibody assay (units/volume)Ordered By: Ashley Larose on 09-10-2024 SCL-70 extractable nuclear Ab Qn (S) [facility] Comment on above: Test not performed Serum classic neutrophil cyt oplasmic antibody assay (units/volume)Ordered By: Ashley Larose on 09-10-2024 Neutrophil cytoplasmic Ab.classic Qn (S) <1:20 titer Neg:<1:20 [facility] Serum mitochondria antibody detectionOrdered By: Ashley Larose on 09-10-2024 Mitochondria Ab Ql (S) <20.0 Units 0.0-20.0 [facility] Comment on above: Negative 0.0 - 20.0 Equivocal 20.1 - 24.9 Positive >24.9Mitochondrial (M2) Antibodies are found in 90-96% ofpatients with primary biliary cirrhosis. Serum or plasma actin IgG an tibody assay (units/volume)Ordered By: Ashley Larose on 09-10-2024 Actin IgG Qn 10 Units 0-19 [facility] Comment on above: Negative 0 - 19 Weak positive 20 - 30 Moderate to strong positive >30 Actin Antibodies are found in 52-85% of patients with autoimmune hepatitis or chronic active hepatitis and in 22% of patients with primary biliary cirrhosis. Serum or plasma cholesterol in HDL measurement (mass/volume)Ordered By: Ashley Larose on 09-10-2024 Cholesterol in HDL [Mass/Vol] 48 mg/dL >40 [facility] Comment on above: National Cholesterol Education Program (NCEP) guidelines:<40 mg/dL: Low HDL-cholesterol (major risk factor for CHD)>= 60 mg/dL: High HDL-cholesterol (negative risk factor for CHD)HDL-cholesterol is affected by a number of factors, e.g. smoking, exercise, hormones, sex and age. Serum or plasma cholesterol measurement (mass/volume)Ordered By: Ashley Larose on 09-10-2024 Cholesterol [Mass/Vol] 254 mg/dL High <201 [facility] Comment on above: Cholesterol level, D esirable <200 mg/dLBorderline high cholesterol 200-239 mg/dLHigh cholesterol >=240 mg/dLRecommendations of the NCEP Adult Treatment Panel for the following risk-cutoff thresholds for the [place] population. Serum or plasma ferritin susie surement (mass/volume)Ordered By: Ashley Larose on 09-10-2024 Ferritin [Mass/Vol] 135 ng/mL 22-378 [facility] Serum or plasma iron saturat ion measurement (mass fraction)Ordered By: Ashley Larose on 09-10-2024 Iron saturation [Mass fraction] 13.0 % 13-59 [facility] Serum perinuclear neutrophil cytoplasmic antibody titer by immunofluorescenceOrdered By: Ashley Larose on 09-10-2024 Neutrophil cytoplasmic Ab.perinuclear IF (S) [Titer] <1:20 titer Neg:<1:20 [facility] Comment on above: The presence of posi tive fluorescence exhibiting P-ANCA orC-ANCA patterns alone is not specific for the diagnosis ofWegener's Granulomatosis (WG) or microscopic polyangiitis.Decisions about treatment should not be based solely onANCA IFA results. The International ANCA Group Consensusrecommends follow up testing of positive sera with both KY-3 and MPO-ANCA enzyme immunoassays. As many as 5% serumsamples are positive only by EIA. Ref. AM J Clin Xpptsg7796;111:507-513. TSH DL <= 0.005 mIU/L QnOrde red By: Ashley Larose on 09-10-2024 TSH Qn 1.160 uIU/mL 0.300-4.200 [facility] Thyroid Stim Hormone (TSH)on 09-10-2024 TSH 1.160 uIU/mL Normal 0.300-4.200 [facility] Comment on above: Performed By: #### L 500.3400, L3410.9992 #### [facility] [address] [place], [address] Triglycerides measurementOrd ered By: Ashley Larose on 09-10-2024 Triglyceride [Mass/Vol] 270 mg/dL High <199 [facility] Comment on above: The drugs N-Acetylcy steine and Metamizole may falsely depress this assay. Normal range: <150 mg/dLBorderline High: 150-199 mg/dLHigh: 200-499 mg/dLVery High: >500 mg/dL Vitamin D,25 Hydroxyon 09-10 Vitamin D 25-OH 21.2 ng/mL Low 30-100 [facility] Comment on above: Result Comment: Sarina min D Status Deficiency: <20 ng/mL (50nmol/L) Insufficiency: 20-30 ng/mL (50-75 nmol/L) Sufficiency: 30-100 ng/mL (75-250 nmol/L) Toxicity: >100 ng/mL (>250 nmol/L) Performed By: #### L 500.3400, L3410.9992 #### [facility] [address] [place], [address] Gastroenterology Visit Repor ton 09-05-2024 Gastroenterology Visit Report [facility] [address] [place] [address] OFFICE VISIT Date of Service: 09/05/24 MR#: [id number] Acct: [id number] Name: JUANITA PAULINO Rep #: [id number] : 2000 Provider: DELMIS jones Age/Sex: 24/F Location: [facility] Status: Signed Intake Vital Signs 07/30/24 08:31 [...] diarrhea, constipation, abdominal pain, gas and bloating. 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 Note: [employer] speech recognition job development specialist software was used to create portions of this document. Sound-alike and misspelled words, as well as other job development specialist errors may be contained in the documentation. Patient Instructions: Fibercon 2 tablets once daily with 8 ounces of water after a meal. May take up to 3 weeks for symptom improvement. Start a probiotic (Equals6, Culturelle or [employer]) once daily. These are all multispecies probiotics, [...] not having (more content not included)... Normal [facility] L3410.9992on 09-05-2024 [facility] Misc. COMMENT Normal . [facility] Comment on above: Order Comment: [id number] ELF TIGER RF Result Comment: Test Ordered: [id number] Enhanced Liver Fibrosis (ELF) ELF(TM) Score 8.18 [...] J Hepatol. 2020 Aug;73(1):26-39. Performed at: - [facility] [id number] Newspaper Journalist: Juana Lee MD, Phone: [phone] Performed at: [facility] [id number] Newspaper Journalist: Gilles Carey PhD, Phone: [phone] Performed By: #### L 500.3400, L3410.9997 #### [facility] [address] [place], [place], [id number] Bilirubin directOrdered By: Ashley Larose on 09-02-2024 Bilirubin.direct [Mass/Vol] 0.17 mg/dL 0.00-0.30 [facility] Comment on above: Hemolysis present, R esults could be affected. Bilirubin, totalOrdered By: Ashley Larose on 09-02-2024 Bilirubin [Mass/Vol] 0.58 mg/dL 0.00-1.30 [facility] - Chemistry and C hemistry - challengeOrdered By: Ashley Larose on 09-02-2024 AST [Catalytic activity/Vol] 65 U/L High <32 [facility] Comment on above: Hemolysis present, R esults could be affected. Liver Profileon 09-02-2024 Albumin [Mass/Vol] 4.4 g/dL Normal 3.5-5.0 [facility] Comment on above: Performed By: #### L 500.3400, L3410.9992 #### [facility] [address] [place] [place], [address] ALK PHOS 91 U/L Normal 35-104 [facility] Comment on above: Performed By: #### L 500.3400, L3410.9992 #### [facility] [address] [place], [address] ALT [Catalytic activity/Vol] 68 U/L High <=34 [facility] Comment on above: Performed By: #### L 500.3400, L3410.9992 #### [facility] [address] [place], [address] AST [Catalytic activity/Vol] 65 U/L High <=31 [facility] Comment on above: Result Comment: Hemo lysis present, Results??could be affected. ?? Performed By: #### L 500.3400, L3410.9992 #### [facility] [address] [place], [address] Bilirubin [Mass/Vol] 0.58 mg/dL Normal 0.00-1.30 [facility] Comment on above: Performed By: #### L 500.3400, L3410.9992 #### [facility] [address] [place], [address] Bilirubin.direct [Mass/Vol] 0.17 mg/dL Normal 0.00-0.30 [facility] Comment on above: Result Comment: Hemo lysis present, Results??could be affected. ?? Performed By: #### L 500.3400, L3410.9992 #### [facility] [address] [place], [address] Globulin (S) [Mass/Vol] 3.6 g/dL Normal 2.2-4.2 [facility] Comment on above: Performed By: #### L 500.3400, L3410.9992 #### [facility] [address] [place], [address] T PROT 8.0 g/dL Normal 5.9-8.4 [facility] Comment on above: Performed By: #### L 500.3400, L3410.9992 #### [facility] [address] [place], [address] Serum globulin measurementOr dered By: Ashley Larose on 09-02-2024 Globulin (S) [Mass/Vol] 3.6 g/dL 2.2-4.2 [facility] Serum or plasma alanine evans otransferase (ALT) measurementOrdered By: Ashley Larose on 09-02-2024 ALT [Catalytic activity/Vol] 68 U/L High <35 [facility] Serum or plasma albumin benita urement (mass/volume)Ordered By: Ashley Larose on 09-02-2024 Albumin [Mass/Vol] 4.4 g/dL 3.5-5.0 [facility] Serum or plasma alkaline angelina sphatase measurementOrdered By: Ashley Larose on 09-02-2024 ALP [Catalytic activity/Vol] 91 U/L 35-104 [facility] Total proteinOrdered By: Brandy Larose on 09-02-2024 Protein [Mass/Vol] 8.0 g/dL 5.9-8.4 [facility] Cardiac/Vascular Sonographer Office Visit Reporton 09-01-2024 Cardiac/Vascular Sonographer Office Visit Report [facility] [address], [address] [place] [address] OFFICE VISIT Date of Service: 09/01/24 MR#: [id number] Acct: [id number] Name: JUANITA PAULINO Rep #: [id number] : 2000 Provider: DELMIS demarco Age/Sex: 24/F [place] [facility] [place]: Signed Intake Vital Signs 08/13/24 14:45 [...] Intake Visit Reasons: Bleeding Chief Complaint: AUB General Service Officer Required: No Is patient in pain?: [...] 09/01/24 Rx mg/0.5 mL subcutaneous pen injector (Rajindergovchiara) tranexamic acid 650 mg tablet 1,300 mg (2 x 650 mg) PO TID #60 0 09/01/24 09/01/24 Rx tabs Is last menstrual period known: Yes Last Menstrual Period: 08/13/24 Post menopausal: No Patient : No : No PFSH Medical History (Updated 09/01/24 @ 13:22 by Simin Yu MANAGER BEVERAGE, MANAGER BEVERAGE-C) HSV-2 (herpes simplex virus 2) infection IBS [...] status: employed 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 Normal [facility] Internal Medicine Office Vis rory 08-13-2024 Internal Medicine Office Visit [facility] [address] [place], [place] [address] OFFICE VISIT Date of Service: 08/13/24 MR#: [id number] Acct: [id number] Name: JUANITA PAULINO Rep #: [id number] : 2000 Provider: Dr. Tiffany mock MD Age/Sex: 24/F Location: [facility] Status: Signed Intake Vital Signs 07/30/24 08:31 08/13/24 14:45 Height 5 ft 7 in 5 ft 7 in Weight: 323 lb BMI 50.5 BP 120/84 H Blood Pressure Location Lt brachial Position Sitting Respiration 18 Pulse 83 Pulse Source Monitor Temp 98.9 F Temp Source Temporal Pulse Oximetry (%) 96 Oxygen Delivery Method room air Intake Visit Reasons: MED REFILL-OK PER DR MARKS General Service Officer Required: No Is patient in pain?: [...] part upon awakening. Pt had testing at [facility] and Ashley told pt weight loss option may be good for her. Pt states she was on mounjaro 5mg qweek in the past. Pt states insurance covered 1 month then didn't pt could not pay out of pocket, so she did not continue. 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 Normal [facility] ABD Limited w/ Elastographyo n 08-05-2024 ABD Limited w/ Elastography [facility] Services [address] [place] [address] ABD Limited w/ Elastography MR#: [id number] Acct: [id number] Name: JUANITA PAULINO Rep #: [id number] : 2000 F 24 From: Reynaldo rivas MD PCP: Dr. Tiffany Marks MD Status: REG CLI Study: ABD Limited w/ Elastography Date of Exam: 07/20 09/12 Exam# [id number] Ordering Dr: Ashley Larose MANAGER BEVERAGE- C PROCEDURE: ABD LIMITED W/ ELASTOGRAPHY REASON FOR EXAM: ADD SPLEEN PLEASE COMPARISON: None. TECHNIQUE: Right upper quadrant abdominal ultrasound. [place] ElastQ Imaging shear wave elastography for non- invasive assessment of liver tissue stiffness. [place] EPIQ Elite. FINDINGS: LIVER: Size: Enlarged (hepatomegaly) [...] 7.3 cm. US/ABD Limited w/ Elastography IMPRESSION: Rrxo-tn-scewfvlb hepatic fibrosis. Splenomegaly. Hepatomegaly and diffuse fatty [...] measurement may be in question. Reading Location: [place] [address] CC: DELMIS Larose; Dr. Tiffany Marks MD [facility] Sales Consultant: Signed Normal [facility] L5500.0550on 08-05-2024 BEEF <0.10 Normal Class 0 [facility] Comment on above: Performed By: #### L 700.8000 #### [facility] [address] [place], [address] CHOCOLATE <0.10 Normal Class 0 [facility] Comment on above: Performed By: #### L 700.8000 #### [facility] [address] [place], [place], [address] CODFISH <0.10 Normal Class 0 [facility] Comment on above: Performed By: #### L 700.8000 #### [facility] [address] [place], [place], [id number] COMMENT Comment Normal . [facility] Comment on above: Result Comment: Wilbur gray of Specific IgE Class Description of Class ----- < 0.10 0 Negative 0.10 - 0.31 0/I Equivocal/Low 0.32 - 0.55 I Low 0.56 - 1.40 II Moderate 1.41 - 3.90 III High 3.91 - 19.00 IV Very High 19.01 - 100.00 V Very High >100.00 Very High Performed By: #### L 700.8000 #### [facility] [address] [place], [address] CORN 0.14 kU/L Abnormal Class 0/I [facility] Comment on above: Performed By: #### L 700.8000 #### [facility] [address] [place], [address] EGG, WHOLE 0.12 kU/L Abnormal Class 0/I [facility] Comment on above: Result Comment: Perf ormed at: - [facility] [id number] Newspaper Journalist: Juana Lee MD, Phone: [phone] Performed By: #### L 700.8000 #### [facility] [address] [place], [place], [id number] MILK (COW) 0.60 kU/L Abnormal Class II [facility] Comment on above: Performed By: #### L 700.8000 #### [facility] [address] [place], [place], [address] MUSSELS <0.10 Normal Class 0 [facility] Comment on above: Performed By: #### L 700.8000 #### [facility] [address] [place], [address] PEANUT <0.10 Normal Class 0 [facility] Comment on above: Performed By: #### L 700.8000 #### [facility] [address] [place], [address] PORK <0.10 Normal Class 0 [facility] Comment on above: Performed By: #### L 700.8000 #### [facility] [address] [place], [address] SALMON <0.10 Normal Class 0 [facility] Comment on above: Performed By: #### L 700.8000 #### [facility] [address] [place], [address] SHRIMP <0.10 Normal Class 0 [facility] Comment on above: Performed By: #### L 700.8000 #### [facility] [address] [place], [address] SOYBEAN <0.10 Normal Class 0 [facility] Comment on above: Performed By: #### L 700.8000 #### [facility] [address] [place], [address] TUNA <0.10 Normal Class 0 [facility] Comment on above: Performed By: #### L 700.8000 #### [facility] [address] [place], [address] WHEAT 0.33 kU/L Abnormal Class I [facility] Comment on above: Performed By: #### L 700.8000 #### [facility] [address] [place], [address] Hepatitis A AB, Totalon 06- HEPATITIS A,TOT Positive Abnormal Negative [facility] Comment on above: Result Comment: Comm ent: The HAV total antibody assay detects both IgG and IgM but does not differentiate between them. A negative result suggests susceptibility to infection. A positive result could be due to vaccination, previously resolved infection or active infection. Testing for HAV IgM should be performed if active HAV infection is suspected. [facility] offers profiles that will automatically reflex positive HAV total antibody results to IgM (e.g., panel #[id number] HAV Antibody w/ Rfx). Performed at: [address] [id number] Newspaper Journalist: Gilles Carey PhD, Phone: [phone] Performed By: #### L 3890.6301, L3410.2920, L3200.1400, L500.3400, L3100.0300, L500.2500, L501.6710, L5500.0550, L506.1001 #### [facility] [address] [facility] [place], [place], [address] Immunoglobulin Aon 5 IMMUNOGLOB A QN 164 mg/dL Normal 87-352 [facility] Comment on above: Order Comment: N Performed By: #### L 700.8000 #### [facility] [address] [facility] [place], [place], [address] t-Transglutaminase IgAon tTG IGA <2 Normal 0-3 [facility] Comment on above: Result Comment: Nega tive 0 - 3 Weak Positive 4 - 10 Positive >10 Tissue Transglutaminase (tTG) has been identified as the endomysial antigen. Studies have demonstr- ated that endomysial IgA antibodies have over 99% specificity for gluten sensitive enteropathy. Performed By: #### L 700.8000 #### [facility] [address] [place], [place], [address] Anion gap in Serum or Plasma Ordered By: Ashley Larose on 07-30-2024 Anion gap [Moles/Vol] 15 mmol/L 07-[address] [facility] BUN/creatinine ratioOrdered By: Ashley Larose on 07-30-2024 Urea nitrogen/Creatinine [Mass ratio] 13.0 mg/mg 12-08 [facility] Basic Metabolic Profile (BMP )on 07-30-2024 BUN/CRE 13.0 RATIO Normal 12-08 [facility] Comment on above: Performed By: #### L 3890.6301, L3410.2920, L3200.1400, L500.3400, L3100.0300, L500.2500, L501.6710, L5500.0550, L506.1001 #### [facility] [address] [place], [address] Calcium [Mass/Vol] 9.7 mg/dL Normal 7.6-11.0 [facility] Comment on above: Performed By: #### L 3890.6301, L3410.2920, L3200.1400, L500.3400, L3100.0300, L500.2500, L501.6710, L5500.0550, L506.1001 #### [facility] [address] [place], [address] Chloride [Moles/Vol] 101 mmol/L Normal 98-108 [facility] Comment on above: Performed By: #### L 3890.6301, L3410.2920, L3200.1400, L500.3400, L3100.0300, L500.2500, L501.6710, L5500.0550, L506.1001 #### [facility] [address] [place], [address] CO2 [Moles/Vol] 22.8 mmol/L Normal 21.0-32.0 [facility] Comment on above: Performed By: #### L 3890.6301, L3410.2920, L3200.1400, L500.3400, L3100.0300, L500.2500, L501.6710, L5500.0550, L506.1001 #### [facility] [address] [place], [address] Creatinine [Mass/Vol] 0.66 mg/dL Low 0.70-1.[address] [facility] Comment on above: Performed By: #### L 3890.6301, L3410.2920, L3200.1400, L500.3400, L3100.0300, L500.2500, L501.6710, L5500.0550, L506.1001 #### [facility] [address] [place], [address] GAP 15 Normal 5-15 [facility] Comment on above: Performed By: #### L 3890.6301, L3410.2920, L3200.1400, L500.3400, L3100.0300, L500.2500, L501.6710, L5500.0550, L506.1001 #### [facility] [address] [place], [address] GFR/1.73 sq M.predicted among non-blacks MDRD (S/P/Bld) [Vol rate/Area] 124 mL/min/{1.73_m2} Normal >60 [facility] Comment on above: Result Comment: mL/m in/1.73m2 CKD-EPI Creatinine Equation (2020) Performed By: #### L 3890.6301, L3410.2920, L3200.1400, L500.3400, L3100.0300, L500.2500, L501.6710, L5500.0550, L506.1001 #### [facility] [address] [place], [address] Glucose [Mass/Vol] 103 mg/dL High 70-99 [facility] Comment on above: Performed By: #### L 3890.6301, L3410.2920, L3200.1400, L500.3400, L3100.0300, L500.2500, L501.6710, L5500.0550, L506.1001 #### [facility] [address] [place], [address] Potassium [Moles/Vol] 3.6 mmol/L Normal 3.3-5.[address] [facility] Comment on above: Performed By: #### L 3890.6301, L3410.2920, L3200.1400, L500.3400, L3100.0300, L500.2500, L501.6710, L5500.0550, L506.1001 #### [facility] [address] [place], [place], [address] Sodium [Moles/Vol] 139 mmol/L Normal 133-145 [facility] Comment on above: Performed By: #### L 3890.6301, L3410.2920, L3200.1400, L500.3400, L3100.0300, L500.2500, L501.6710, L5500.0550, L506.1001 #### [facility] [address] [place], [place], [id number] Urea nitrogen [Mass/Vol] 9 mg/dL Normal 4-19 [facility] Comment on above: Performed By: #### L 3890.6301, L3410.2920, L3200.1400, L500.3400, L3100.0300, L500.2500, L501.6710, L5500.0550, L506.1001 #### [facility] [address] [place], [place], [address] Bilirubin directOrdered By: Ashley Larose on 07-30-2024 Bilirubin.direct [Mass/Vol] 0.21 mg/dL 0.00-0.30 [facility] Bilirubin, totalOrdered By: Ashley Larose on 07-30-2024 Bilirubin [Mass/Vol] 0.57 mg/dL 0.00-1.30 [facility] CRPon 07-30-2024 C-REACTIVE PROT 4.37 mg/L High 0.0-3.0 [facility] Comment on above: Performed By: #### L 3890.6301, L3410.2920, L3200.1400, L500.3400, L3100.0300, L500.2500, L501.6710, L5500.0550, L506.1001 #### [facility] [address] [place], [address] Carbon dioxide, total [Moles /volume] in Central venous bloodOrdered By: Ashley Larose on 07-30-2024 CO2 [Moles/Vol] 22.8 mmol/L 21.0-32.0 [facility] Chloride assayOrdered By: Dany Larose on 07-30-2024 Chloride [Moles/Vol] 101 mmol/L 98-108 [facility] Gastroenterology Visit Repor ton 07-30-2024 Gastroenterology Visit Report [facility] [address] [place] [address] OFFICE VISIT Date of Service: 07/30/24 MR#: [id number] Acct: [id number] Name: JUANITA PAULINO Rep #: [id number] : 2000 Provider: DELMIS jones Age/Sex: 24/F Location: [facility] [place] Status: Signed Intake Vital Signs 10/17/23 11:44 07/24/24 08:23 07/30/24 08:31 Height 5 ft 7 in 5 ft 7 in 5 ft 7 in Weight: 317 lb 8 oz BMI 49.7 BP 112/80 Respiration 16 Pulse 98 Pulse Oximetry (%) 96 Oxygen Delivery Method room air Intake Visit Reasons: NEW PATIENT Chief Complaint: bowel issues General Service Officer Required: No Accompanied by: Self Is [...] cancerous polps removed before, one sister has "mixed" IBS. Abdominal pain can be so bad that it has woken her up at night. Recalls a doctor saying she had a fatty liver when she was 13years old but hasn't heard about it sense. REPLACED BY [facility] Medical History Polycystic ovaries IBS (irritable [...] difficulty swa (more content not included)... Normal [facility] Glomerular filtration rate ( GFR) estimation/1.73 sq m using serum, plasma, or whole bOrdered By: Ashley Larose on 07-30-2024 GFR/1.73 sq M.predicted among non-blacks MDRD (S/P/Bld) [Vol rate/Area] 124 mL/min/{1.73_m2} >60 [facility] Comment on above: mL/min/1.73m2 CKD-EP I Creatinine Equation (2020) Hepatitis C Antibodyon 07-30 Hepatitis C Ab Non-Reactive Normal Nonreactive [facility] Comment on above: Result Comment: Reac tive: Presumptive evidence of antibodies to HCV. Follow CDC recommendations for supplemental testing. Non-Reactive: Antibodies to HCV were not detected; does not exclude the possibility of exposure to HCV Reactive Results are presumptive evidence of antibodies to HCV. Follow CDC recommendations for supplemental testing. Order confirmation testing: HCV Quant by PCR testing - HCVPCR #[id number] Non Reactive: < 0.8 Equivocal: >/= 0.8 to < 1.0 Reactive: >/= 1.0 The CDC requires that a reactive/equivocal HCV antibody result be sent out for confirmation. HCV Quant by PCR testing. Performed By: #### L 3890.6301, L3410.2920, L3200.1400, L500.3400, L3100.0300, L500.2500, L501.6710, L5500.0550, L506.1001 #### [facility] [address] [place], [address] Laboratory - Chemistry and C hemistry - challengeOrdered By: Ashley Larose on 07-30-2024 AST [Catalytic activity/Vol] 50 U/L High <32 [facility] Laboratory - Miscellaneous t estsOrdered By: Ashley Larose on 07-30-2024 Service comment (Unsp spec) [Interp] Comment . [facility] Comment on above: Levels of Specific I gE Class Description of Class ----- < 0.10 0 Negative 0.10 - 0.31 0/I Equivocal/Low 0.32 - 0.55 I Low 0.56 - 1.40 II Moderate 1.41 - 3.90 III High 3.91 - 19.00 IV Very High 19.01 - 100.00 V Very High >100.00 Very High Liver Profileon 07-30-2024 Albumin [Mass/Vol] 4.6 g/dL Normal 3.5-5.0 [facility] Comment on above: Performed By: #### L 3890.6301, L3410.2920, L3200.1400, L500.3400, L3100.0300, L500.2500, L501.6710, L5500.0550, L506.1001 #### [facility] [address] [place], [address] ALK PHOS 92 U/L Normal 35-104 [facility] Comment on above: Performed By: #### L 3890.6301, L3410.2920, L3200.1400, L500.3400, L3100.0300, L500.2500, L501.6710, L5500.0550, L506.1001 #### [facility] [address] [place], [address] ALT [Catalytic activity/Vol] 53 U/L High <=34 [facility] Comment on above: Performed By: #### L 3890.6301, L3410.2920, L3200.1400, L500.3400, L3100.0300, L500.2500, L501.6710, L5500.0550, L506.1001 #### [facility] [address] [place], [address] AST [Catalytic activity/Vol] 50 U/L High <=31 [facility] Comment on above: Performed By: #### L 3890.6301, L3410.2920, L3200.1400, L500.3400, L3100.0300, L500.2500, L501.6710, L5500.0550, L506.1001 #### [facility] [address] [place], [address] Bilirubin [Mass/Vol] 0.57 mg/dL Normal 0.00-1.30 [facility] Comment on above: Performed By: #### L 3890.6301, L3410.2920, L3200.1400, L500.3400, L3100.0300, L500.2500, L501.6710, L5500.0550, L506.1001 #### [facility] [address] [place], [address] Bilirubin.direct [Mass/Vol] 0.21 mg/dL Normal 0.00-0.30 [facility] Comment on above: Performed By: #### L 3890.6301, L3410.2920, L3200.1400, L500.3400, L3100.0300, L500.2500, L501.6710, L5500.0550, L506.1001 #### [facility] [address] [place], [place], [id number] Globulin (S) [Mass/Vol] 3.3 g/dL Normal 2.2-4.2 [facility] Comment on above: Performed By: #### L 3890.6301, L3410.2920, L3200.1400, L500.3400, L3100.0300, L500.2500, L501.6710, L5500.0550, L506.1001 #### [facility] [address] [place], [place], [id number] T PROT 7.9 g/dL Normal 5.9-8.4 [facility] Comment on above: Performed By: #### L 3890.6301, L3410.2920, L3200.1400, L500.3400, L3100.0300, L500.2500, L501.6710, L5500.0550, L506.1001 #### [facility] [address] [place], [place], [id number] Potassium measurement (mass/ volume)Ordered By: Ashley Larose on 07-30-2024 Potassium (Unsp spec) [Mass/Vol] 3.6 mmol/L 3.3-5.1 [facility] Serum beef IgE antibody assa y (units/volume)Ordered By: Ashley Larose on 07-30-2024 Beef IgE Qn (S) <0.10 kU/L Class 0 [facility] Serum codfish IgE antibody a ssay (units/volume)Ordered By: Ashley Larose on 07-30-2024 Codfish IgE Qn (S) <0.10 kU/L Class 0 [facility] Serum corn IgE antibody assa y (units/volume)Ordered By: Ashley Larose on 07-30-2024 [place] IgE Qn (S) 0.14 kU/L High Class 0/I [facility] Serum cow milk IgE antibody assay (units/volume)Ordered By: Ashley Larose on 07-30-2024 Cow milk IgE Qn (S) 0.60 kU/L High Class II [facility] Serum creatinine measurement (mass/volume)Ordered By: Ashley Larose on 07-30-2024 Creatinine [Mass/Vol] 0.66 mg/dL Low 0.70-1.[address] [facility] Serum globulin measurementOr dered By: Ashley Larose on 07-30-2024 Globulin (S) [Mass/Vol] 3.3 g/dL 2.2-4.2 [facility] Serum glucose measurement (m ass/volume)Ordered By: Ashley Larose on 07-30-2024 Glucose [Mass/Vol] 103 mg/dL High 70-99 [facility] Serum or plasma C reactive p rotein measurement (mass/volume)Ordered By: Ashley Larose on 07-30-2024 CRP [Mass/Vol] 4.37 mg/L High 0.0-3.0 [facility] Serum or plasma IgA measurem ent (mass/volume)Ordered By: Ashley Larose on 07-30-2024 IgA [Mass/Vol] 164 mg/dL 87-352 [facility] Serum or plasma alanine evans otransferase (ALT) measurementOrdered By: Ashley Larose on 07-30-2024 ALT [Catalytic activity/Vol] 53 U/L High <35 [facility] Serum or plasma albumin benita urement (mass/volume)Ordered By: Ashley Larose on 07-30-2024 Albumin [Mass/Vol] 4.6 g/dL 3.5-5.0 [facility] Serum or plasma alkaline angelina sphatase measurementOrdered By: Ashley Larose on 07-30-2024 ALP [Catalytic activity/Vol] 92 U/L 35-104 [facility] Serum or plasma calcium benita urement (mass/volume)Ordered By: Ashley Larose on 07-30-2024 Calcium [Mass/Vol] 9.7 mg/dL 7.6-11.0 [facility] Serum or plasma urea nitroge n measurement (mass/volume)Ordered By: Ashley Larose on 07-30-2024 Urea nitrogen [Mass/Vol] 9 mg/dL 4-19 [facility] Serum peanut IgE antibody as say (units/volume)Ordered By: Ashley Larose on 07-30-2024 Peanut IgE Qn (S) <0.10 kU/L Class 0 [facility] Serum pork IgE antibody assa y (units/volume)Ordered By: Ashley Larose on 07-30-2024 Pork IgE Qn (S) <0.10 kU/L Class 0 [facility] Serum salmon IgE antibody as say (units/volume)Ordered By: Ashley Larose on 07-30-2024 [place] IgE Qn (S) <0.10 kU/L Class 0 [facility] Serum soybean IgE antibody a ssay (units/volume)Ordered By: Ashley Larose on 07-30-2024 Soybean IgE Qn (S) <0.10 kU/L Class 0 [facility] Serum tissue transglutaminas e (tTG) IgA antibody assay (units/volume)Ordered By: Ashley Larose on 07-30-2024 tTG IgA Qn (S) <2 U/mL 0-3 [facility] Comment on above: Negative 0 - 3 Weak Positive 4 - 10 Positive >10 Tissue Transglutaminase (tTG) has been identified as the endomysial antigen. Studies have demonstr- ated that endomysial IgA antibodies have over 99% specificity for gluten sensitive enteropathy. Serum tuna IgE antibody assa y (units/volume)Ordered By: Ashley Larose on 07-30-2024 Tuna IgE Qn (S) <0.10 kU/L Class 0 [facility] Serum wheat IgE antibody ass ay (units/volume)Ordered By: Ashley Larose on 07-30-2024 [place] IgE Qn (S) 0.33 kU/L High Class I [facility] Serum whole egg IgE antibody assay (units/volume)Ordered By: Ashley Larose on 07-30-2024 Whole Egg IgE Qn (S) 0.12 kU/L High Class 0/I [facility] Comment on above: Performed at: - L [address] [id number] Director: Juana Lee MD, Phone: [phone] Sodium levelOrdered By: Sylvia Larose on 07-30-2024 Sodium [Moles/Vol] 139 mmol/L 133-145 [facility] Total proteinOrdered By: Brandy Larose on 07-30-2024 Protein [Mass/Vol] 7.9 g/dL 5.9-8.4 [facility] Vitamin D,25 Hydroxyon 07-30 Vitamin D 25-OH 17.7 ng/mL Low 30-100 [facility] Comment on above: Result Comment: Sarina min D Status Deficiency: <20 ng/mL (50nmol/L) Insufficiency: 20-30 ng/mL (50-75 nmol/L) Sufficiency: 30-100 ng/mL (75-250 nmol/L) Toxicity: >100 ng/mL (>250 nmol/L) Performed By: #### L 3890.6301, L3410.2920, L3200.1400, L500.3400, L3100.0300, L500.2500, L501.6710, L5500.0550, L506.1001 #### [facility] [address] [place], [place], [id number] Hepatitis B Surface Antibody on 07-29-2024 HEP B Surf Ab REAC Normal [facility] Comment on above: Result Comment: <8.5 mIU/mL: Non-Reactive 8.5<= x <11.5 mIU/mL: Indeterminate >=11.5 mIU/mL: Reactive Non Reactive: Inconsistent with immunity less than <10 mIU/mL Reactive: Consistent with immunity greater than or equal to 10 mIU/mL Performed By: #### L 700.8000 #### [facility] [address] [place], [place], [address] Serum hepatitis B virus surf markel antibody detectionOrdered By: HEALTH ASSESSMENT on 07-29-2024 HBV surface Ab Ql (S) REAC [facility] Comment on above: <8.5 mIU/mL: Non-Lyric ctive8.5<= x <11.5 mIU/mL: Indeterminate>=11.5 mIU/mL: Reactive Non Reactive: Inconsistent with immunity less than <10 mIU/mL Reactive: Consistent with immunity greater than or equal to 10 mIU/mL Absolute lymphocyte countOrd ered By: Zurdo Maldonado on 07-24-2024 Lymphocytes Auto (Unsp spec) [#/Vol] 1.68 10*3/uL 0.83-4.51 [facility] Absolute neutrophil countOrd ered By: Zurdo Maldonado on 07-24-2024 Neutrophils (Bld) [#/Vol] 3.3 10*3/uL 2.0-7.7 [facility] Automated lymphocyte count a s percentage of total leukocytesOrdered By: Zurdo Maldonado on 07-24-2024 Lymphocytes/100 WBC Auto (Unsp spec) 30.8 % 19-41 [facility] Basophil percentageOrdered B y: Zurdo Maldonado on 07-24-2024 Basophils/100 WBC (Bld) 0.6 % 0-1 [facility] CBC W/Diff, Automatedon Absolute Lymph 1.68 X10 3/uL Normal 0.83-4.51 [facility] Comment on above: Performed By: #### L 700.8000 #### [facility] [address] [facility] [place], [address] Absolute Neut 3.3 X10 3/uL Normal 2.0-7.7 [facility] Comment on above: Performed By: #### L 700.8000 #### [facility] [address] [place], [address] Basophils/100 WBC (Bld) 0.6 % Normal 0-1 [facility] Comment on above: Performed By: #### L 700.8000 #### [facility] [address] [place], [address] Eosinophils/100 WBC (Bld) 2.4 % Normal 0-5 [facility] Comment on above: Performed By: #### L 700.8000 #### [facility] [address] [place], [address] Erythrocyte distribution width (RBC) [Ratio] 13.9 % Normal 11.6-14.6 [facility] Comment on above: Performed By: #### L 700.8000 #### [facility] [address] [place], [address] Hematocrit (Bld) [Volume fraction] 37.9 % Normal 37-47 [facility] Comment on above: Performed By: #### L 700.8000 #### [facility] [address] [place], [address] Hemoglobin (Bld) [Mass/Vol] 12.6 g/dL Normal 12.0-15.0 [facility] Comment on above: Performed By: #### L 700.8000 #### [facility] [address] [place], [address] IG% 0.400 Normal 0.0-0.9 [facility] Comment on above: Result Comment: IG% - Immature Granulocytes (promyelocytes, myelocytes and metamyelocytes) > 1% indicates that a LEFT SHIFT is Present. Performed By: #### L 700.8000 #### [facility] [address] [place], [address] Lymphocytes/100 WBC (Bld) 30.8 % Normal 19-41 [facility] Comment on above: Performed By: #### L 700.8000 #### [facility] [address] [place], [address] MCH (RBC) [Entitic mass] 26.4 pg Low 27.0-32.0 [facility] Comment on above: Performed By: #### L 700.8000 #### [facility] [address] [place], [address] MCHC (RBC) [Mass/Vol] 33.2 g/dL Normal 32-[address] [facility] Comment on above: Performed By: #### L 700.8000 #### [facility] [address] [place], [address] MCV (RBC) [Entitic vol] 79.3 fL Low 81-99 [facility] Comment on above: Performed By: #### L 700.8000 #### [facility] [address] [place], [address] Monocytes/100 WBC (Bld) 5.7 % Normal 0-10 [facility] Comment on above: Performed By: #### L 700.8000 #### [facility] [address] [place], [address] Neutrophils/100 WBC (Bld) 60.1 % Normal 47-70 [facility] Comment on above: Performed By: #### L 700.8000 #### [facility] [address] [place], [address] Nucleated RBC (Bld) [#/Vol] 0 10*3/uL Normal 0-5 [facility] Comment on above: Performed By: #### L 700.8000 #### [facility] [address] [place], [address] Platelet mean volume (Bld) [Entitic vol] 11.8 fL Normal 6.2-12.0 [facility] Comment on above: Performed By: #### L 700.8000 #### [facility] [address] [place], [address] Platelets (Bld) [#/Vol] 216 10*3/uL Normal 150-450 [facility] Comment on above: Performed By: #### L 700.8000 #### [facility] [address] [place], [address] RBC (Bld) [#/Vol] 4.78 10*6/uL Normal 4.2-5.4 [facility] Comment on above: Performed By: #### L 700.8000 #### [facility] [address] [place], [address] RDW SD 39.8 fl Normal 35.1-43.9 [facility] Comment on above: Performed By: #### L 700.8000 #### [facility] [address] [place], [address] WBC (Bld) [#/Vol] 5.5 10*3/uL Normal 4.4-11.0 [facility] Comment on above: Performed By: #### L 700.8000 #### [facility] [address] [place], [address] Emergency Department Summary on 07-24-2024 Emergency Department Summary [facility] Medical Records Department [address] [facility] [place] [address] Emergency Department Summary 07/24/24 MR#: [id number] Acct: [id number] Name: JUANITA PAULINO Rep #: [id number] : 2000 24 From: Zurdo Maldonado DO [...] size of her palm and messaged her iso coordinator. She states she had some small clots throughout the night this morning when she got to work coworkers mention that she did not appear her normal self. She states she feels flushed and has a slight headache. She notes pelvic cramping. Patient states she is not currently on any hormonal medications. She heard back from her iso coordinator and was advised to come to emergency. She denies any known bleeding disorders. 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 Normal [facility] Eosinophil percentageOrdered By: Zurdo Maldonado on 07-24-2024 Eosinophils/100 WBC (Bld) 2.4 % 0-5 [facility] Erythrocyte distribution wid th ratioOrdered By: Zurdo Maldonado on 07-24-2024 Erythrocyte distribution width (RBC) [Ratio] 13.9 % 11.6-14.6 [facility] Erythrocyte distribution wid th standard deviationOrdered By: Zurdo Maldonado on 07-24-2024 Erythrocyte distribution width (RBC) [Ratio] 39.8 fl 35.1-43.9 [facility] Hematocrit Auto (Bld) [Volum e fraction]Ordered By: Zurdo Maldonado on 07-24-2024 Hematocrit (Bld) [Volume fraction] 37.9 % 37-47 [facility] Hemoglobin measurementOrdere d By: Zurdo Maldonado on 07-24-2024 Hemoglobin (Bld) [Mass/Vol] 12.6 g/dL 12.0-15.0 [facility] Immature granulocytes/100 WB C Auto (Bld)Ordered By: Zurdo Maldonado on 07-24-2024 Immature granulocytes/100 WBC (Bld) 0.400 % 0.0-0.9 [facility] Comment on above: IG% - Immature Granu locytes (promyelocytes, myelocytes and metamyelocytes) > 1% indicates that a LEFT SHIFT is Present. MCV (mean corpuscular volume ) determinationOrdered By: Zurdo Maldonado on 07-24-2024 MCV (RBC) [Entitic vol] 79.3 fL Low 81-99 [facility] Mean corpuscular hemoglobin (MCH) determinationOrdered By: Zurdo Maldonado on 07-24-2024 MCH (RBC) [Entitic mass] 26.4 pg Low 27.0-32.0 [facility] Mean corpuscular hemoglobin concentration (MCHC) determinationOrdered By: Zurdo Maldonado on 07-24-2024 MCHC (RBC) [Mass/Vol] 33.2 g/dL 32-[address] [facility] Mean platelet volume determi nationOrdered By: Zurdo Maldonado on 07-24-2024 Platelet mean volume (Bld) [Entitic vol] 11.8 fL 6.2-12.0 [facility] Monocyte percentageOrdered B y: Zurdo Maldonado on 07-24-2024 Monocytes/100 WBC (Bld) 5.7 % 0-10 [facility] Neutrophil percentageOrdered By: Zurdo Maldonado on 07-24-2024 Neutrophils/100 WBC (Bld) 60.1 % 47-70 [facility] Nucleated red blood cell per centageOrdered By: Zurdo Maldonado on 07-24-2024 Nucleated RBC/100 WBC (Bld) [Ratio] 0 % 0-5 [facility] Platelet countOrdered By: Tomer Maldonado on 07-24-2024 Platelets (Bld) [#/Vol] 216 10*3/uL 150-450 [facility] ,Serum,hCG Quali.on 07-24-2024 HCG, SERUM QUAL Negative Normal [facility] Comment on above: Performed By: #### L 700.8000 #### [facility] [address] [place], [address] RBC Auto (Bld) [#/Vol]Ordere d By: Zurdo Maldonado on 07-24-2024 RBC (Bld) [#/Vol] 4.78 10*6/uL 4.2-5.4 [facility] Serum beta-hCG test, qualita tiveOrdered By: Zurdo Maldonado on 07-24-2024 Beta HCG ( test) Ql Negative [facility] Transvaginal Non-on 07-24-2024 Transvaginal Non- [facility] Services [address] [place] [address] Transvaginal Non- MR#: [id number] Acct: [id number] Name: JUANITA PAULINO Rep #: [id number] : 2000 F 24 From: Reagan Lott PCP: Dr. Tiffany Marks MD Status: [facility] Study: Transvaginal Non- Date of Exam: Exam# [id number] Ordering Dr: Zurdo Maldonado DO ADDENDUM by Dr. Reagan Rodriguez MD on 08/11/24 at 1215 The left ovarian cyst is likely benign appearance. Follow-up imaging in 2-3 cycles may be helpful to confirm this. Reading Location: [facility]-1 08/11/24 1215 Date cc: Dr. Tiffany Marks [...] cyst. 2. Negative examination, otherwise. Reading Location: [address] CC: Dr. Tiffany Marks MD; Dr. Zurdo Maldonado DO [facility]osp[facility] Sales Consultant: Signed Normal [facility] White blood cell (WBC) count Ordered By: Zurdo Maldonado on 07-24-2024 WBC (Bld) [#/Vol] 5.5 10*3/uL 4.4-11.0 [facility] Serum human chorionic gonado tropin detection for pregnancyOrdered By: Libertad Pate on 07-16-2024 HCG ( test) Ql < 1 mIU/mL <9 [facility] Comment on above: Gestational Age0.2-1 Week: 5-50 mIU/mL1-2 Weeks: 50-500 mIU/mL2-3 Weeks: 100-5000 mIU/mL3-4 Weeks: 500-10,000 mIU/mL4-5 Weeks:1000-50,000 mIU/mL5-6 Weeks: 10,000-100,000 mIU/mL6-8 Weeks: 15,000-200,000 mIU/mL2-3 Months:10,000-100,000 mIU/mL hCG Titer Quant., Serumon HCG QUANT. < 1 Normal <9 non-preg [facility] Comment on above: Result Comment: Gest ational Age 0.2-1 Week: 5-50 mIU/mL 1-2 Weeks: 50-500 mIU/mL 2-3 Weeks: 100-5000 mIU/mL 3-4 Weeks: 500-10,000 mIU/mL 4-5 Weeks:1000-50,000 mIU/mL 5-6 Weeks: 10,000-100,000 mIU/mL 6-8 Weeks: 15,000-200,000 mIU/mL 2-3 Months:10,000-100,000 mIU/mL Performed By: #### L 700.8000 #### [facility] [address] [place], [place], [address] Hepatitis B Surface Antibody on 06-05-2024 HEP B Surf Ab Non-Reactive Normal [facility] Comment on above: Result Comment: <8.5 mIU/mL: Non-Reactive 8.5<= x <11.5 mIU/mL: Indeterminate >=11.5 mIU/mL: Reactive Non Reactive: Inconsistent with immunity less than <10 mIU/mL Reactive: Consistent with immunity greater than or equal to 10 mIU/mL Performed By: #### L 700.8000 #### [facility] [address], [place], [id number] Serum hepatitis B virus surf markel antibody detectionOrdered By: [employer] [facility] on 06-05-2024 HBV surface Ab Ql (S) Non-Reactive [facility] Comment on above: <8.5 mIU/mL: Non-Eva ctive8.5<= x <11.5 mIU/mL: Indeterminate>=11.5 mIU/mL: Reactive Non Reactive: Inconsistent with immunity less than <10 mIU/mL Reactive: Consistent with immunity greater than or equal to 10 mIU/mL Pelvic w/ Transvaginalon Pelvic w/ Transvaginal [facility] [address] [place], [place] [id number] Pelvic w/ Transvaginal MR#: [id number] Acct: [id number] Name: JUANITA PAULINO Rep #: [id number] : 2000 F 23 From: Marquez Olivares MD PCP: JEFF VELASCO Status: REG CLI Study: Pelvic w/ Transvaginal Date of Exam: 01/19/24 Exam# [id number] Ordering Dr: Libertad Pate [id number] INDICATION: ovarian cyst monitoring EXAMINATION: Ultrasound US [...] Signed: Marquez Olivares MD at 0:30 EST Reading Location ID and State: [address] [place] [address] Tel , Service support , CC: DELMIS Pate; JEFF VELASCO [facility]ospice [facility] Sales Consultant: Signed Normal [facility] XR ANKLE MINIMUM 3 VIEWS LEF Ton [...] 08/07/2023 12:22:15 PM Ordering Provider: ZEYNEP Renae [facility] ([place]) US TRANSVAGINAL NON OBon US TRANSVAGINAL NON [...] 07/06/2023 8:45:18 AM Ordering Provider: ARACELIS MORE [facility] ([place]) .Auto Diffon 06-26-2023 Basophil, Absolute 0.0 10 3/mcL Normal 0.0-0.2 [facility] ([place]) Comment on above: Performed By: #### C NGOZI DEL CASTILLO ADIFF, MDW, ANEU, BMP #### [address] [address] Basophils/100 WBC (Bld) 0.2 % Normal 0.0-2.5 A [facility] ([place]) Comment on above: Performed By: #### C NGOZI DEL CASTILLO ADIFF, MDW, ANEU, BMP #### [address] [address] Eosinophil, Absolute 0.2 10 3/mcL Normal 0.0-0.4 [facility] ([place]) Comment on above: Performed By: #### C BC, GFR, ADIFF, MDW, ANEU, BMP #### [address] [address] Eosinophils/100 WBC (Bld) 2.2 % Normal 0.0-7.0 [facility] ([place]) Comment on above: Performed By: #### C BC, GFR, ADIFF, MDW, ANEU, BMP #### [address] [address] Lymphocyte, Absolute 1.5 10 3/mcL Normal 0.8-3.9 [facility] ([place]) Comment on above: Performed By: #### C BC, GFR, ADIFF, MDW, ANEU, BMP #### [address] [address] Lymphocytes/100 WBC (Bld) 20.3 % Normal 10.0-50.0 [facility] ([place]) Comment on above: Performed By: #### C BC, GFR, ADIFF, MDW, ANEU, BMP #### [address] [address] Monocyte, Absolute 0.4 10 3/mcL Normal 0.2-1.0 [facility] ([place]) Comment on above: Performed By: #### C BC, GFR, ADIFF, MDW, ANEU, BMP #### [address] [address] Monocytes/100 WBC (Bld) 5.9 % Normal 1.7-13.0 [facility] ([place]) Comment on above: Performed By: #### C BC, GFR, ADIFF, MDW, ANEU, BMP #### [address] [address] Neutrophils/100 WBC (Bld) 71.4 % Normal 37.0-80.0 [facility] ([place]) Comment on above: Performed By: #### C BC, GFR, ADIFF, MDW, ANEU, BMP #### [address] [address] .GFRon 06-26-2023 GFR Non- 92 ml/min/1.73sqm Normal [facility] ([place]) Comment on above: Result Comment: GFR Population [...] BC, GFR, SILVANA TEE, ANEU, BMP #### [address] [address] GFR 112 ml/min/1.73sqm Normal [facility] ([place]) Comment on above: Result Comment: GFR Population [...] BC, GFR, SILVANA TEE, ANEU, BMP #### [address] [address] .Kait 06-26-2023 Monocyte Distribution Width 16.82 Normal 0.00-20.00 [facility] ([place]) Comment on above: Result Comment: For ED adult patients suspected of sepsis, MDW<=20.0 does not rule out sepsis or risk of sepsis Performed By: #### C BC, GFR, SILVANA TEE, ANEU, BMP #### [place] [address] .NEUABSon 06-26-2023 Neutrophil, Absolute 5.3 10 3/mcL Normal 2.9-6.2 [facility] ([place]) Comment on above: Performed By: #### C BC, GFRRANDAL MDW, ANEU, BMP #### [place] [address] .Urinalysis Microscopic (AO) on 06-26-2023 UA RBC None Seen Normal None Seen [facility] ([place]) Comment on above: Performed By: #### C BC, GFRRANDAL MDW, ANEU, BMP #### [place] [address] UA Squam Epithelial LOADED Abnormal None Seen [facility] ([place]) Comment on above: Performed By: #### C BC, GFRRANDAL MDW, ANEU, BMP #### [place] [address] UA WBC 0-5 Abnormal None Seen [facility] ([place]) Comment on above: Performed By: #### C BC, GFRRANDAL MDW, ANEU, BMP #### [place] [address] CBCon 06-26-2023 Erythrocyte distribution width (RBC) [Ratio] 14.6 % High 11.5-14.5 [facility] ([place]) Comment on above: Performed By: #### C BC, GFRRANDAL MDW, ANEU, BMP #### [place] [address] Hematocrit (Bld) [Volume fraction] 38.3 % Normal 37.0-47.0 [facility] ([place]) Comment on above: Performed By: #### C BC, GFRRANDAL MDW, ANEU, BMP #### [place] [address] Hgb 13.1 G/dL Normal 12.0-16.0 [facility] ([place]) Comment on above: Performed By: #### C BC, GFR, RANDAL, W, ANEU, BMP #### [address] [address] MCH (RBC) [Entitic mass] 26.1 pg Low 27.0-31.2 [facility] ([place]) Comment on above: Performed By: #### C BC, GFR, RANDAL, W, ANEU, BMP #### [address] [address] MCHC 34.1 G/dL Normal 33.0-37.0 [facility] ([place]) Comment on above: Performed By: #### C BC, GFR, RANDAL, W, ANEU, BMP #### [address] [address] MCV (RBC) [Entitic vol] 76.7 fL Low 80.0-94.0 A [facility] ([place]) Comment on above: Performed By: #### C BC, GFR, RANDAL, W, ANEU, BMP #### [address] [address] Platelet 224 10 3/mcL Normal 130-400 [facility] ([place]) Comment on above: Performed By: #### C BC, GFR, RANDAL, MDW, ANEU, BMP #### [address] [address] Platelet mean volume (Bld) [Entitic vol] 9.7 fL Normal 7.4-10.4 [facility] ([place]) Comment on above: Performed By: #### C BC, GFR, ADTIMMY, MDW, ANEU, BMP #### [address] [address] RBC 5.00 10 6/mcL Normal 4.20-5.40 [facility] ([place]) Comment on above: Performed By: #### C BC, GFR, ADTIMMY, MDW, ANEU, BMP #### [address] [address] WBC 7.4 10 3/mcL Normal 4.6-10.8 [facility] ([place]) Comment on above: Performed By: #### C BC, GFR, RANDAL, W, ANEU, BMP #### [address] [address] CMPon 06-26-2023 Albumin Level 3.9 G/dL Normal 3.5-5.0 [facility] ([place]) Comment on above: Performed By: #### C BC, GFR, RANDAL, W, ANEU, BMP #### [address] [address] Albumin/Globulin [Mass ratio] 1.0 {ratio} Low 1.1-2.5 [facility] ([place] Comment on above: Performed By: #### C BC, GFR, RANDAL, W, ANEU, BMP #### [address] [address] ALP [Catalytic activity/Vol] 97 U/L Normal 40-135 [facility] ([place] Comment on above: Performed By: #### C BC, GFR, ADTIMMY, MDW, ANEU, BMP #### [address] [address] ALT [Catalytic activity/Vol] 57 U/L Normal 14-59 [facility] ([place] Comment on above: Performed By: #### C BC, GFR, ADTIMMY, MDW, ANEU, BMP #### [address] [address] AST [Catalytic activity/Vol] 33 U/L Normal 10-40 [facility] ([place] Comment on above: Performed By: #### C BC, GFR, ADTIMMY, MDW, ANEU, BMP #### [address] [address] Bili Total 0.9 mg/dL Normal 0.2-1.0 [facility] ([place]) Comment on above: Result Comment: Use of this assay is not recommended for patients undergoing treatment with eltrombopag due to the potential for falsely elevated results. Performed By: #### C BC, GFR, ADTIMMY, MDW, ANEU, BMP #### [address] [address] BUN/Creatinine Ratio 18 ratio Normal 7-27 [facility] ([place]) Comment on above: Performed By: #### C BC, GFR, ADTIMMY, SILVANA, ANEU, BMP #### [address] [address] Calcium [Mass/Vol] 8.9 mg/dL Normal 8.4-10.2 [facility] ([place]) Comment on above: Performed By: #### C BC, GFR, ADTIMMY, W, ANEU, BMP #### [address] [address] Chloride [Moles/Vol] 101 mmol/L Normal 98-107 [facility] ([place]) Comment on above: Performed By: #### C BC, GFR, ADTIMMY, W, ANEU, BMP #### [address] [address] CO2 [Moles/Vol] 29 mmol/L Normal 22-29 [facility] ([place] Comment on above: Performed By: #### C BC, GFR, RANDAL, W, ANEU, BMP #### [address] [address] Creatinine [Mass/Vol] 0.77 mg/dL Normal 0.55-1.02 [facility] ([place]) Comment on above: Performed By: #### C BC, GFR, ADTIMMY, W, ANEU, BMP #### [address] [address] Electrolyte Balance 9.0 mEq/L Normal 4.0-15.0 [facility] ([place]) Comment on above: Performed By: #### C BC, GFR, ADTIMMY, W, ANEU, BMP #### [address] [address] Globulin 3.9 G/dL Normal [facility] ([place]) Comment on above: Performed By: #### C BC, GFR, ADTIMMY, W, ANEU, BMP #### [address] [address] Glucose [Mass/Vol] 126 mg/dL High 70-105 [facility] ([place] Comment on above: Performed By: #### C BC, GFRRANDAL MDW, ANEU, BMP #### [address] [address] Potassium [Moles/Vol] 3.8 mmol/L Normal 3.5-5.1 [facility] ([place]) Comment on above: Performed By: #### C BC, GFR, SILVANA TEE, ANEU, BMP #### [address] [address] Sodium [Moles/Vol] 139 mmol/L Normal 136-145 [facility] ([place] Comment on above: Performed By: #### C BC, GFR, SILVANA TEE, ANEU, BMP #### [address] [address] Total Protein 7.8 G/dL Normal 6.4-8.2 [facility] ([place] Comment on above: Performed By: #### C BC, GFR, SILVANA TEE, ANEU, BMP #### [address] [address] Urea nitrogen [Mass/Vol] 14 mg/dL Normal 7-18 [facility] ([place] Comment on above: Performed By: #### C BC, GFR, SILVANA TEE, ANEU, BMP #### [address] [address] LABORATORYOrdered By: SYSTEM SYSTEM on 06-26-2023 Albumin [...] Level 37 U/L Normal 16-77 [facility] ([place] Comment on above: Performed By: #### C NGOZI DEL CASTILLO ADIFF, MDW, FABI, BMP #### [place] [address] PREGUon 06-26-2023 HCG ( test) Ql (U) Negative Normal [facility] ([place]) Comment on above: Performed By: #### C NGOZI DEL CASTILLO ADIFF, MDW, FABI, BMP #### [address] [address] test (u) int Not detected Invalid Interpretation Code [facility] ([place] Comment on above: Performed By: #### C NGOZI DEL CASTILLO ADIFF, MDW, FABI, BMP #### [address] [address] UAon 06-26-2023 Color (U) Yellow Normal [facility] ([place] Comment on above: Performed By: #### C NGOZI DEL CASTILLO ADIFF, MDW, ANEU, BMP #### [address] [address] Glucose (U) [Mass/Vol] Negative Normal Negative [facility] ([place]) Comment on above: Performed By: #### C NGOZI DEL CASTILLO ADIFF, MDW, ANEU, BMP #### [address] [address] Ketones Ql (U) Negative Normal Negative [facility] ([place] Comment on above: Performed By: #### C NGOZI DEL CASTILLO ADIFF, MDW, ANEU, BMP #### [address] [address] UA Appear Clear Normal Clear [facility] ([place] Comment on above: Performed By: #### C NGOZI DEL CASTILLO ADIFF, MDW, ANEU, BMP #### [address] [address] UA Blood Negative Normal Negative [facility] ([place] Comment on above: Performed By: #### C NGOZI DEL CASTILLO ADIFF, MDW, ANEU, BMP #### [address] [address] UA Nitrite Negative Normal Negative [facility] ([place] Comment on above: Performed By: #### C NGOZI DEL CASTILLO ADIFF, MDW, ANEU, BMP #### [address] [address] UA Spec Grav >=1.030 Abnormal 1.015-1.025 [facility] ([place]) Comment on above: Performed By: #### C NGOZI DEL CASTILLO ADIFF, MDW, ANEU, BMP #### [address] [address] UA Specimen Type Clean Catch Normal [facility] ([place]) Comment on above: Performed By: #### C NGOZI DEL CASTILLO ADIFF, MDW, ANEU, BMP #### [address] [address] UA Urobilinogen 0.2 E.U./dL Normal 0.2-1.0 [facility] ([place]) Comment on above: Performed By: #### C NGOZI DEL CASTILLO ADIFF, MDW, ANEU, BMP #### [facility] [address] [place], [place] [address] Urobilinogen (U) [Mass/Vol] Negative Normal Negative [facility] ([place]) Comment on above: Performed By: #### C MAGDALENE, RANDAL MELVIN MDW, ANEU, BMP #### [facility] [address] [place], [place] [address] UA Leuk Est Small Abnormal Negative [facility] ([place]) Comment on above: Performed By: #### C MAGDALENE, RANDAL MELVIN MDW, ANEU, BMP #### [facility] [address] [place], [place] [address] UA pH 5.5 Normal 5.0 - 8.0 [facility] ([place]) Comment on above: Performed By: #### C MAGDALENE, RANDAL MELVIN MDW, ANEU, BMP #### [place] [address] [place], [place] [address] UA Protein Negative Normal Negative [facility] ([place]) Comment on above: Performed By: #### C MAGDALENE, RANDAL MELVIN MDW, ANEU, BMP #### [place] [address] [place], [place] [address] US ABDOMEN COMPLETEon 2023 US ABDOMEN COMPLETE [...] 06/26/2023 2:29:44 PM Ordering Provider: FELIPA TALAVERA [facility]) FOODADon 05-20-2023 Class Description Comment [facility]) Comment on above: Result Comment: Levels of [...] DEL CASTILLO ADIFF, MDW, ANEU, BMP #### [address] [address] IgE Clam F207 <0.10 Normal Class 0 [facility]) Comment on above: Performed By: #### C NGOZI DEL CASTILLO ADIFF, MDW, ANEU, BMP #### [address] [address] IgE Codfish F003 <0.10 Normal Class 0 [facility]) Comment on above: Performed By: #### C NGOZI DEL CASTILLO ADIFF, MDW, ANEU, BMP #### [address] [address] IgE [place] F008 <0.10 Normal Class 0 [facility] ([place]) Comment on above: Performed By: #### C BC, GFR, RANDAL, W, ANEU, BMP #### [address] [address] IgE Egg White F001 0.15 kunits/L Abnormal Class 0/I [facility] ([place]) Comment on above: Performed By: #### C BC, GFR, RANDAL, W, ANEU, BMP #### [place] [address] IgE Milk F002 0.26 kunits/L Abnormal Class 0/I [facility] ([place]) Comment on above: Performed By: #### C BC, GFR, RANDAL, W, ANEU, BMP #### [place] [address] IgE Peanut F013 <0.10 Normal Class 0 [facility] ([place]) Comment on above: Performed By: #### C BC, GFR, RANDAL, W, ANEU, BMP #### [place] [address] IgE Scallop F338 <0.10 Normal Class 0 [facility] ([place]) Comment on above: Performed By: #### C BC, GFR, RANDAL, W, ANEU, BMP #### [place] [address] IgE Sesame Seed F010 <0.10 Normal Class 0 [facility] ([place]) Comment on above: Result Comment: Perf ormed At: [facility] [id number] Jesus Arias MD Ph:[phone] Performed By: #### C BC, GFR, RANDAL, W, ANEU, BMP #### [place] [address] IgE Shrimp F024 <0.10 Normal Class 0 [facility] ([place]) Comment on above: Performed By: #### C BC, GFR, ADTIMMY, MDW, ANEU, BMP #### [place] [address] IgE Soybean F014 <0.10 Normal Class 0 [facility] ([place]) Comment on above: Performed By: #### C BC, GFR, ADTIMMY, W, ANEU, BMP #### [address] [address] IgE [place] F256 <0.10 Normal Class 0 [facility] ([place]) Comment on above: Performed By: #### C BC, GFR, ADIFF, MDW, ANEU, BMP #### [address] [address] IgE Wheat F004 0.22 kunits/L Abnormal Class 0/I [facility] ([place]) Comment on above: Performed By: #### C BC, GFR, RANDAL, W, ANEU, BMP #### [address] [address] .Auto Diffon 05-16-2023 Basophil, Absolute 0.1 10 3/mcL Normal 0.0-0.2 [facility] ([place]) Comment on above: Performed By: #### C BC, GFR, ADIFF, MDW, ANEU, BMP #### [address] [address] Basophils/100 WBC (Bld) 1.0 % Normal 0.0-2.5 A [facility] ([place]) Comment on above: Performed By: #### C BC, GFR, ADIFF, MDW, ANEU, BMP #### [address] [address] Eosinophil, Absolute 0.3 10 3/mcL Normal 0.0-0.4 [facility] ([place]) Comment on above: Performed By: #### C BC, GFR, ADIFF, MDW, ANEU, BMP #### [address] [address] Eosinophils/100 WBC (Bld) 4.0 % Normal 0.0-7.0 [facility] ([place]) Comment on above: Performed By: #### C BC, GFR, ADIFF, MDW, ANEU, BMP #### [address] [address] Lymphocyte, Absolute 2.3 10 3/mcL Normal 0.8-3.9 [facility] ([place]) Comment on above: Performed By: #### C BC, GFR, SILVANA TEE, ANEU, BMP #### [address] [address] Lymphocytes/100 WBC (Bld) 33.1 % Normal 10.0-50.0 [facility] ([place]) Comment on above: Performed By: #### C BC, GFR, RANDAL, W, ANEU, BMP #### [address] [address] Monocyte, Absolute 0.5 10 3/mcL Normal 0.2-1.0 [facility] ([place]) Comment on above: Performed By: #### C BC, GFR, RANDAL, SILVANA, ANEU, BMP #### [address] [address] Monocytes/100 WBC (Bld) 7.2 % Normal 1.7-13.0 [facility] ([place]) Comment on above: Performed By: #### C BC, GFR, RANDAL, W, ANEU, BMP #### [address] [address] Neutrophils/100 WBC (Bld) 54.7 % Normal 37.0-80.0 [facility] ([place]) Comment on above: Performed By: #### C BC, GFR, SILVANA TEE, ANEU, BMP #### [address] [address] .GFRon 05-16-2023 GFR Non- 92 ml/min/1.73sqm Normal [facility] ([place]) Comment on above: Result Comment: GFR Population [...] BC, GFR, ADIFF, MDW, ANEU, BMP #### [address] [address] GFR 112 ml/min/1.73sqm Normal [facility] ([place]) Comment on above: Result Comment: GFR Population [...] BC, GFR, ADIFF, MDW, ANEU, BMP #### [address] [address] .MDWon 05-16-2023 Monocyte Distribution Width 17.01 Normal 0.00-20.00 [facility] ([place]) Comment on above: Result Comment: For ED adult patients suspected of sepsis, MDW<=20.0 does not rule out sepsis or risk of sepsis Performed By: #### C BC, GFR, ADIFF, MDW, ANEU, BMP #### [address] [address] .NEUABSon 05-16-2023 Neutrophil, Absolute 3.8 10 3/mcL Normal 2.9-6.2 [facility] ([place]) Comment on above: Performed By: #### C BC, GFR, ADIFF, MDW, ANEU, BMP #### [place] [address] BMPon 05-16-2023 BUN/Creatinine Ratio 22 ratio Normal 7-27 [facility] ([place]) Comment on above: Performed By: #### C BC, GFR, RANDAL, SILVANA, ANEU, BMP #### [address] [address] Calcium [Mass/Vol] 8.9 mg/dL Normal 8.4-10.2 [facility] ([place]) Comment on above: Performed By: #### C BC, GFR, ADTIMMY, W, ANEU, BMP #### [address] [address] Chloride [Moles/Vol] 101 mmol/L Normal 98-107 [facility] ([place]) Comment on above: Performed By: #### C BC, GFR, ADTIMMY, W, ANEU, BMP #### [address] [address] CO2 [Moles/Vol] 25 mmol/L Normal 22-29 [facility] ([place]) Comment on above: Performed By: #### C BC, GFR, ADTIMMY, W, ANEU, BMP #### [address] [address] Creatinine [Mass/Vol] 0.77 mg/dL Normal 0.55-1.02 [facility] ([place]) Comment on above: Performed By: #### C BC, GFR, ADTIMMY, MDW, ANEU, BMP #### [address] [address] Electrolyte Balance 11.0 mEq/L Normal 4.0-15.0 [facility] ([place]) Comment on above: Performed By: #### C BC, GFR, ADIFF, MDW, ANEU, BMP #### [address] [address] Glucose [Mass/Vol] 86 mg/dL Normal 70-105 [facility] ([place]) Comment on above: Performed By: #### C BC, GFR, ADIFF, MDW, ANEU, BMP #### [address] [address] Potassium [Moles/Vol] 4.1 mmol/L Normal 3.5-5.1 [facility] ([place]) Comment on above: Performed By: #### C BC, GFRRANDAL MDW, ANEU, BMP #### [address] [address] Sodium [Moles/Vol] 137 mmol/L Normal 136-145 [facility] ([place] Comment on above: Performed By: #### C BC, GFR, SILVANA TEE, ANEU, BMP #### [address] [address] Urea nitrogen [Mass/Vol] 17 mg/dL Normal 7-18 [facility] ([place]) Comment on above: Performed By: #### C BC, GFR, SILVANA TEE, ANEU, BMP #### [address] [address] CBCon 05-16-2023 Erythrocyte distribution width (RBC) [Ratio] 15.5 % High 11.5-14.5 [facility] ([place]) Comment on above: Performed By: #### C BC, GFR, SILVANA TEE, ANEU, BMP #### [place] [address] Hematocrit (Bld) [Volume fraction] 38.5 % Normal 37.0-47.0 [facility] ([place]) Comment on above: Performed By: #### C BC, GFR, SILVANA TEE, ANEU, BMP #### [address] [address] Hgb 13.2 G/dL Normal 12.0-16.0 [facility] ([place]) Comment on above: Performed By: #### C BC, GFR, SILVANA TEE, ANEU, BMP #### [address] [address] MCH (RBC) [Entitic mass] 26.0 pg Low 27.0-31.2 [facility] ([place]) Comment on above: Performed By: #### C BC, GFR, SILVANA TEE, ANEU, BMP #### [address] [address] MCHC 34.3 G/dL Normal 33.0-37.0 [facility] ([place]) Comment on above: Performed By: #### C NGOZI DEL CASTILLO ADIFF, MDW, ANEU, BMP #### [address] [address] MCV (RBC) [Entitic vol] 75.9 fL Low 80.0-94.0 A [facility] ([place]) Comment on above: Performed By: #### C NGOZI DEL CASTILLO ADIFF, MDW, ANEU, BMP #### [address] [address] Platelet 248 10 3/mcL Normal 130-400 [facility] ([place]) Comment on above: Performed By: #### C NGOZI DEL CASTILLO ADIFF, MDW, ANEU, BMP #### [place] [address] Platelet mean volume (Bld) [Entitic vol] 9.7 fL Normal 7.4-10.4 [facility] ([place]) Comment on above: Performed By: #### C NGOZI DEL CASTILLO ADIFF, MDW, ANEU, BMP #### [place] [id number] RBC 5.07 10 6/mcL Normal 4.20-5.40 [facility] ([place]) Comment on above: Performed By: #### C MAGDALENE GFRRANDAL MDW, ANEU, BMP #### [place] [phone] WBC 7.0 10 3/mcL Normal 4.6-10.8 [facility] ([place]) Comment on above: Performed By: #### C MAGDALENE GFRRANDAL MDW, ANEU, BMP #### [address] [address] LABORATORYOrdered By: SYSTEM SYSTEM on 05-16-2023 Basophil, [...] 05-15-2023 hCG, quantitative <1.0 Normal [facility] ([place]) Comment on above: Result Comment: HCG Levels [...] mIU/mL Performed By: #### C BC, GFR, RANDAL, MDW, ANEU, BMP #### [place] [address] LABORATORYOrdered By: SYSTEM SYSTEM on 05-15-2023 HCG [...] Basophil, Absolute 0.0 10 3/mcL Normal 0.0-0.2 [facility] ([place]) Comment on above: Performed By: #### C NGOZI DEL CASTILLO ADIFF, MDW, ANEU, BMP #### [address] [address] Basophils/100 WBC (Bld) 0.2 % Normal 0.0-2.5 A [facility] ([place]) Comment on above: Performed By: #### C NGOZI DEL CASTILLO ADIFF, MDW, ANEU, BMP #### [address] [address] Eosinophil, Absolute 0.2 10 3/mcL Normal 0.0-0.4 [facility] ([place]) Comment on above: Performed By: #### C NGOZI DEL CASTILLO ADIFF, MDW, ANEU, BMP #### [address] [address] Eosinophils/100 WBC (Bld) 3.4 % Normal 0.0-7.0 [facility] ([place]) Comment on above: Performed By: #### C BC, GFR, ADIFF, MDW, ANEU, BMP #### [address] [address] Lymphocyte, Absolute 1.7 10 3/mcL Normal 0.8-3.9 [facility] ([place]) Comment on above: Performed By: #### C BC, GFR, ADIFF, MDW, ANEU, BMP #### [address] [address] Lymphocytes/100 WBC (Bld) 23.6 % Normal 10.0-50.0 [facility] ([place]) Comment on above: Performed By: #### C BC, GFR, ADIFF, MDW, ANEU, BMP #### [address] [address] Monocyte, Absolute 0.5 10 3/mcL Normal 0.2-1.0 [facility] ([place]) Comment on above: Performed By: #### C BC, GFR, ADIFF, MDW, ANEU, BMP #### [address] [address] Monocytes/100 WBC (Bld) 6.4 % Normal 1.7-13.0 A [facility] ([place]) Comment on above: Performed By: #### C BC, GFR, ADIFF, MDW, ANEU, BMP #### [address] [address] Neutrophils/100 WBC (Bld) 66.4 % Normal 37.0-80.0 [facility] ([place]) Comment on above: Performed By: #### C BC, GFR, ADIFF, MDW, ANEU, BMP #### [address] [address] .GFRon 04-03-2023 GFR 133 ml/min/1.73sqm Normal [facility] ([place]) Comment on above: Result Comment: GFR Population [...] BC, GFR, ADIFF, MDW, ANEU, BMP #### [address] [address] GFR Non- 110 ml/min/1.73sqm Normal [facility] ([place]) Comment on above: Result Comment: GFR Population [...] BC, GFR, ADIFF, MDW, ANEU, BMP #### [address] [address] .MDWon 04-03-2023 Monocyte Distribution Width 15.97 Normal 0.00-20.00 [facility] ([place] Comment on above: Result Comment: For ED adult patients suspected of sepsis, MDW<=20.0 does not rule out sepsis or risk of sepsis Performed By: #### C BC, GFR, ADIFF, MDW, ANEU, BMP #### [address] [address] .NEUABSon 04-03-2023 Neutrophil, Absolute 4.9 10 3/mcL Normal 2.9-6.2 [facility] ([place]) Comment on above: Performed By: #### C BC, GFR, ADTIMMY, W, ANEU, BMP #### [place] [address] .Urinalysis Microscopic (AO) on 04-03-2023 UA Bacteria 1+ /hpf Abnormal [facility] ([place] Comment on above: Performed By: #### C BC, GFR, ADTIMMY, MDW, ANEU, BMP #### [place] [address] UA RBC 0-5 Abnormal None Seen [facility] ([place] Comment on above: Performed By: #### C BC, GFR, RANDAL, W, ANEU, BMP #### [place] [address] UA Squam Epithelial LOADED Abnormal None Seen [facility] ([place] Comment on above: Performed By: #### C BC, GFR, ADTIMMY, W, ANEU, BMP #### [place] [address] UA WBC 5-10 Abnormal None Seen [facility] ([place] Comment on above: Performed By: #### C BC, GFR, RANDAL, W, ANEU, BMP #### [place] [address] CBCon 04-03-2023 Erythrocyte distribution width (RBC) [Ratio] 15.3 % High 11.5-14.5 [facility] ([place] Comment on above: Performed By: #### C BC, GFR, RANDAL, W, ANEU, BMP #### [place] [address] Hematocrit (Bld) [Volume fraction] 40.3 % Normal 37.0-47.0 [facility] ([place] Comment on above: Performed By: #### C BC, GFR, ADTIMMY, MDW, ANEU, BMP #### [place] [address] Hgb 13.4 G/dL Normal 12.0-16.0 [facility] ([place] Comment on above: Performed By: #### C BC, GFR, ADIFF, W, ANEU, BMP #### [address] [address] MCH (RBC) [Entitic mass] 25.4 pg Low 27.0-31.2 [facility] ([place] Comment on above: Performed By: #### C BC, GFR, ADTIMMY, MDW, ANEU, BMP #### [address] [address] MCHC 33.3 G/dL Normal 33.0-37.0 [facility] ([place]) Comment on above: Performed By: #### C BC, GFR, RANDAL, MDW, ANEU, BMP #### [address] [address] MCV (RBC) [Entitic vol] 76.1 fL Low 80.0-94.0 A [facility] ([place]) Comment on above: Performed By: #### C BC, GFR, RANDAL, W, ANEU, BMP #### [address] [address] Platelet 238 10 3/mcL Normal 130-400 [facility] ([place] Comment on above: Performed By: #### C BC, GFR, RANDAL, W, ANEU, BMP #### [address] [address] Platelet mean volume (Bld) [Entitic vol] 10.3 fL Normal 7.4-10.4 [facility] ([place] Comment on above: Performed By: #### C BC, GFR, ADTIMMY, MDW, ANEU, BMP #### [address] [address] RBC 5.29 10 6/mcL Normal 4.20-5.40 [facility] ([place] Comment on above: Performed By: #### C BC, GFR, ADTIMMY, MDW, ANEU, BMP #### [address] [address] WBC 7.4 10 3/mcL Normal 4.6-10.8 [facility] ([place] Comment on above: Performed By: #### C BC, GFR, ADTIMMY, W, ANEU, BMP #### [address] [address] CMPon 04-03-2023 Albumin Level 3.9 G/dL Normal 3.5-5.0 [facility] ([place] Comment on above: Performed By: #### C BC, GFR, ADTIMMY, MDW, ANEU, BMP #### [place] [phone] Albumin/Globulin [Mass ratio] 1.0 {ratio} Low 1.1-2.5 [facility] ([place] Comment on above: Performed By: #### C BC, GFR, RANDAL, SILVANA, ANEU, BMP #### [address] [address] ALP [Catalytic activity/Vol] 109 U/L Normal 40-135 [facility] ([place] Comment on above: Performed By: #### C BC, GFR, ADTIMMY, W, ANEU, BMP #### [address] [address] ALT [Catalytic activity/Vol] 63 U/L High 14-59 [facility] ([place] Comment on above: Performed By: #### C BC, GFR, ADTIMMY, W, ANEU, BMP #### [address] [address] AST [Catalytic activity/Vol] 42 U/L High 10-40 [facility] ([place] Comment on above: Performed By: #### C BC, GFR, ADTIMMY, MDW, ANEU, BMP #### [address] [address] Bili Total 0.7 mg/dL Normal 0.2-1.0 [facility] ([place] Comment on above: Result Comment: Use of this assay is not recommended for patients undergoing treatment with eltrombopag due to the potential for falsely elevated results. Performed By: #### C BC, GFR, ADTIMMY, MDW, ANEU, BMP #### [place] [phone] BUN/Creatinine Ratio 20 ratio Normal 7-27 [facility] ([place]) Comment on above: Performed By: #### C BC, GFR, RANDAL, SILVANA, ANEU, BMP #### [address] [address] Calcium [Mass/Vol] 9.0 mg/dL Normal 8.4-10.2 [facility] ([place] Comment on above: Performed By: #### C BC, GFR, RANDAL, W, ANEU, BMP #### [address] [address] Chloride [Moles/Vol] 103 mmol/L Normal 98-107 [facility] ([place]) Comment on above: Performed By: #### C BC, GFR, ADTIMMY, SILVANA, ANEU, BMP #### [address] [address] CO2 [Moles/Vol] 27 mmol/L Normal 22-29 [facility] ([place] Comment on above: Performed By: #### C BC, GFR, ADTIMMY, W, ANEU, BMP #### [address] [address] Creatinine [Mass/Vol] 0.66 mg/dL Normal 0.55-1.02 [facility] ([place]) Comment on above: Performed By: #### C BC, GFR, ADTIMMY, MDW, ANEU, BMP #### [address] [address] Electrolyte Balance 8.0 mEq/L Normal 4.0-15.0 [facility] ([place]) Comment on above: Performed By: #### C BC, GFR, ADTIMMY, W, ANEU, BMP #### [address] [address] Globulin 4.0 G/dL Normal [facility] ([place] Comment on above: Performed By: #### C BC, GFR, ADIFF, MDW, ANEU, BMP #### [address] [address] Glucose [Mass/Vol] 83 mg/dL Normal 70-105 [facility] ([place] Comment on above: Performed By: #### C BC, GFR, SILVANA TEE, ANEU, BMP #### [address] [address] [address] Potassium [Moles/Vol] 4.2 mmol/L Normal 3.5-5.1 [facility] ([place]) Comment on above: Performed By: #### C BC, GFR, SILVANA TEE, ANEU, BMP #### [address] [address] Sodium [Moles/Vol] 138 mmol/L Normal 136-145 [facility] ([place]) Comment on above: Performed By: #### C BC, GFRRANDAL MDW, ANEU, BMP #### [address] [address] Total Protein 7.9 G/dL Normal 6.4-8.2 [facility]) Comment on above: Performed By: #### C BC, GFR, SILVANA TEE, ANEU, BMP #### [address] [address] Urea nitrogen [Mass/Vol] 13 mg/dL Normal 7-18 [facility]) Comment on above: Performed By: #### C BC, GFRRANDAL MDW, ANEU, BMP #### [address] [address] [address] ABD/PELVIS W/ IV CONTRAST ONLYon 04-03-2023 [...] Date: 04/03/2023 5:42:34 PM Ordering Provider: BLAYNE DORAN [facility] ([place]) LABORATORYOrdered By: SYSTEM SYSTEM on 04-03-2023 Albumin [...] Urine SS UA Specimen Type Clean Catch (2/13/24 3:30 PM) Normal AO Auto Urine SS [...] Level 38 U/L Normal 16-77 [facility] ([place]) Comment on above: Performed By: #### C BC, GFR, SILVANA TEE, ANEU, BMP #### [address] [address] PREGUon 04-03-2023 HCG ( test) Ql (U) Negative Normal [facility] ([place]) Comment on above: Performed By: #### C MAGDALENE, GFR, SILVANA TEE, ANEU, BMP #### [address] [address] test (u) int Not detected Invalid Interpretation Code [facility] ([place]) Comment on above: Performed By: #### C BC, GFR, RANDAL, SILVANA, ANEU, BMP #### [address] [address] UAon 04-03-2023 Color (U) Yellow Normal [facility] ([place]) Comment on above: Performed By: #### C BC, GFR, SILVANA TEE, ANEU, BMP #### [address] [address] Glucose (U) [Mass/Vol] Negative Normal Negative [facility] ([place]) Comment on above: Performed By: #### C BC, GFR, RANDAL, SILVANA, ANEU, BMP #### [address] [address] Ketones Ql (U) Negative Normal Negative [facility] ([place]) Comment on above: Performed By: #### C BC, GFR, ADIFF, MDW, ANEU, BMP #### [address] [address] UA Appear Cloudy Abnormal Clear [facility] ([place] Comment on above: Performed By: #### C BC, GFR, ADIFF, MDW, ANEU, BMP #### [address] [address] UA Blood Negative Normal Negative [facility] ([place] Comment on above: Performed By: #### C BC, GFR, ADIFF, MDW, ANEU, BMP #### [address] [address] UA Leuk Est Small Abnormal Negative [facility] ([place] Comment on above: Performed By: #### C BC, GFR, ADIFF, MDW, ANEU, BMP #### [address] [address] UA Nitrite Negative Normal Negative [facility] ([place] Comment on above: Performed By: #### C BC, GFR, ADIFF, MDW, ANEU, BMP #### [address] [address] UA pH 6.0 Normal 5.0 - 8.0 [facility] ([place]) Comment on above: Performed By: #### C BC, GFR, ADIFF, MDW, ANEU, BMP #### [address] [address] UA Protein Negative Normal Negative [facility] ([place] Comment on above: Performed By: #### C BC, GFR, ADIFF, MDW, ANEU, BMP #### [address] [address] UA Spec Grav >=1.030 Abnormal 1.015-1.025 [facility] ([place]) Comment on above: Performed By: #### C BC, GFR, ADIFF, MDW, ANEU, BMP #### [address] [address] UA Specimen Type Clean Catch Normal [facility] ([place]) Comment on above: Performed By: #### C BC, GFR, SILVANA TEE, ANEU, BMP #### [facility] [address] [place], [place] [address] UA Urobilinogen 0.2 E.U./dL Normal 0.2-1.0 [facility] ([place]) Comment on above: Performed By: #### C BC, GFR, SILVANA TEE, ANEU, BMP #### [facility] [address] [place], [place] [address] Urobilinogen (U) [Mass/Vol] Negative Normal Negative [facility] ([place]) Comment on above: Performed By: #### C BC, GFR, SILVANA TEE, ANEU, BMP #### Kalyan Walker [address] [place], [place] [address] US ABDOMEN LIMITEDon 024 US ABDOMEN LIMITED [...] Date: 04/03/2023 4:32:24 PM Ordering Provider: BLAYNE Renae [facility] ([place]) .GFRon 02-24-2023 GFR 127 ml/min/1.73sqm Normal [facility] ([place]) Comment on above: Result Comment: GFR Population [...] B MP, A1C, TSH, GFR, LIPID #### [address] [address] #### INSLN #### [address] [address] GFR Non- 105 ml/min/1.73sqm Normal [facility] ([place]) Comment on above: Result Comment: GFR Population [...] B MP, A1C, TSH, GFR, LIPID #### [address] [address] #### INSLN #### [address] [address] A1Con 02-24-2023 HbA1c (Bld) [Mass fraction] 5.3 % Normal 4.3-6.4 [facility] ([place]) Comment on above: Performed By: #### C BC, GFR, SILVANA TEE, ANEU, BMP #### [address] [address] BMPon 02-24-2023 BUN/Creatinine Ratio 14 ratio Normal 7-27 [facility] ([place]) Comment on above: Performed By: #### B MP, A1C, TSH, GFR, LIPID #### [address] [address] #### INSLN #### [address] [address] Calcium [Mass/Vol] 9.5 mg/dL Normal 8.4-10.2 [facility] ([place]) Comment on above: Performed By: #### B MP, A1C, TSH, GFR, LIPID #### [place] [address] #### INSLN #### [address] [address] Chloride [Moles/Vol] 105 mmol/L Normal 98-107 [facility] ([place]) Comment on above: Performed By: #### B MP, A1C, TSH, GFR, LIPID #### [place] [address] #### INSLN #### [address] [address] CO2 [Moles/Vol] 28 mmol/L Normal 22-29 [facility] ([place] Comment on above: Performed By: #### B MP, A1C, TSH, GFR, LIPID #### [place] [address] #### INSLN #### [address] [address] Creatinine [Mass/Vol] 0.69 mg/dL Normal 0.55-1.02 [facility] ([place]) Comment on above: Performed By: #### B MP, A1C, TSH, GFR, LIPID #### [place] [id number] #### INSLN #### [address] [address] Electrolyte Balance 11.0 mEq/L Normal 4.0-15.0 [facility] ([place]) Comment on above: Performed By: #### B MP, A1C, TSH, GFR, LIPID #### [address] [address] #### INSLN #### [address] [address] Glucose [Mass/Vol] 102 mg/dL Normal 70-105 [facility] ([place]) Comment on above: Performed By: #### B MP, A1C, TSH, GFR, LIPID #### [address] [address] #### INSLN #### [address] [address] Potassium [Moles/Vol] 4.4 mmol/L Normal 3.5-5.1 [facility] ([place]) Comment on above: Performed By: #### B MP, A1C, TSH, GFR, LIPID #### [place] [address] #### INSLN #### [address] [address] Sodium [Moles/Vol] 144 mmol/L Normal 136-145 [facility] ([place] Comment on above: Performed By: #### B MP, A1C, TSH, GFR, LIPID #### [address] [address] #### INSLN #### [address] [address] Urea nitrogen [Mass/Vol] 10 mg/dL Normal 7-18 [facility] ([place]) Comment on above: Performed By: #### B MP, A1C, TSH, GFR, LIPID #### [place] [address] #### INSLN #### [address] [address] INSLNon 02-24-2023 Insulin 23.77 munit/L Normal 2.60-37.60 [facility] ([place]) Comment on above: Performed By: #### C BC, GFR, RANDAL, W, ANEU, BMP #### [place] [address] [place], [place] [address] LABORATORYOrdered By: SYSTEM SYSTEM on 02-24-2023 Calcium [...] 02-24-2023 Cholesterol [Mass/Vol] 249 mg/dL High 0-200 [facility] ([place]) Comment on above: Result Comment: Chol esterol Reference Interval: Less than 200 Desirable 200-239 Borderline high risk 240 and above High risk Performed By: #### B MP, A1C, TSH, GFR, LIPID #### [address] [address] #### INSLN #### [address] [address] Cholesterol in HDL [Mass/Vol] 47 mg/dL Normal 40-60 [facility] ([place]) Comment on above: Performed By: #### B MP, A1C, TSH, GFR, LIPID #### [address] [address] #### INSLN #### [place] [address] Cholesterol in LDL [Mass/Vol] 159 mg/dL High 0-130 [facility] ([place]) Comment on above: Performed By: #### B MP, A1C, TSH, GFR, LIPID #### [place] [address] #### INSLN #### [address] [address] Triglyceride [Mass/Vol] 217 mg/dL High 0-150 A [facility] ([place]) Comment on above: Result Comment: Trig lyceride Reference Interval: Less than 150 Normal 150-199 Borderline high risk 200-499 High risk 500 or higher Very high risk Performed By: #### B MP, A1C, TSH, GFR, LIPID #### [place] [address] #### INSLN #### [address] [address] TSHon 02-24-2023 TSH Qn 1.05 m[IU]/L Normal 0.36-3.74 [facility] ([place]) Comment on above: Performed By: #### B MP, A1C, TSH, GFR, LIPID #### [place] [address] #### INSLN #### [address] [address] .Auto Diffon 02-22-2023 Basophil, Absolute 0.1 10 3/mcL Normal 0.0-0.2 [facility] ([place]) Comment on above: Performed By: #### C BC, GFR, ADTIMMY, W, ANEU, BMP #### [address] [address] Basophils/100 WBC (Bld) 0.7 % Normal 0.0-2.5 A [facility] ([place]) Comment on above: Performed By: #### C BC, GFR, ADIFF, MDW, ANEU, BMP #### [address] [address] Eosinophil, Absolute 0.1 10 3/mcL Normal 0.0-0.4 [facility] ([place]) Comment on above: Performed By: #### C BC, GFR, ADIFF, MDW, ANEU, BMP #### [address] [address] Eosinophils/100 WBC (Bld) 1.6 % Normal 0.0-7.0 [facility] ([place]) Comment on above: Performed By: #### C BC, GFR, ADIFF, MDW, ANEU, BMP #### [address] [address] Lymphocyte, Absolute 2.1 10 3/mcL Normal 0.8-3.9 [facility] ([place]) Comment on above: Performed By: #### C BC, GFR, ADIFF, MDW, ANEU, BMP #### [address] [address] Lymphocytes/100 WBC (Bld) 27.1 % Normal 10.0-50.0 [facility] ([place]) Comment on above: Performed By: #### C BC, GFR, ADIFF, MDW, ANEU, BMP #### [address] [address] Monocyte, Absolute 0.4 10 3/mcL Normal 0.2-1.0 [facility] ([place]) Comment on above: Performed By: #### C BC, GFR, ADIFF, MDW, ANEU, BMP #### [address] [address] Monocytes/100 WBC (Bld) 4.9 % Normal 1.7-13.0 A [facility] ([place]) Comment on above: Performed By: #### C BC, GFR, ADIFF, MDW, ANEU, BMP #### [address] [address] Neutrophils/100 WBC (Bld) 65.7 % Normal 37.0-80.0 [facility] ([place]) Comment on above: Performed By: #### C BC, GFR, SILVANA TEE, ANEU, BMP #### [address] [address] .GFRon 02-22-2023 GFR 117 ml/min/1.73sqm Normal [facility] ([place]) Comment on above: Result Comment: GFR Population [...] BC, GFR, SILVANA TEE, ANEU, BMP #### [address] [address] GFR Non- 96 ml/min/1.73sqm Normal [facility] ([place]) Comment on above: Result Comment: GFR Population [...] BC, GFR, ADIFF, MDW, ANEU, BMP #### [place] [address] .MDWon 02-22-2023 Monocyte Distribution Width 15.51 Normal 0.00-20.00 [facility] ([place]) Comment on above: Result Comment: For ED adult patients suspected of sepsis, MDW<=20.0 does not rule out sepsis or risk of sepsis Performed By: #### C BC, GFR, ADIFF, MDW, ANEU, BMP #### [place] [address] .NEUABSon 02-22-2023 Neutrophil, Absolute 5.1 10 3/mcL Normal 2.9-6.2 [facility] ([place]) Comment on above: Performed By: #### C BC, GFR, ADTIMMY, MDW, ANEU, BMP #### [place] [address] .Urinalysis Microscopic (AO) on 02-22-2023 UA Bacteria 2+ /hpf Abnormal [facility] ([place]) Comment on above: Performed By: #### C BC, GFR, ADTIMMY, MDW, ANEU, BMP #### [place] [address] UA RBC None Seen Normal None Seen [facility] ([place]) Comment on above: Performed By: #### C BC, GFR, ADIFF, MDW, ANEU, BMP #### [place] [address] UA Squam Epithelial 0-5 Abnormal None Seen [facility] ([place]) Comment on above: Performed By: #### C BC, GFR, ADIFF, MDW, ANEU, BMP #### [place] [address] UA WBC 5-10 Abnormal None Seen [facility] ([place]) Comment on above: Performed By: #### C BC, GFR, ADIFF, MDW, ANEU, BMP #### [place] [address] BMPon 02-22-2023 BUN/Creatinine Ratio 12 ratio Normal 7-27 [facility] ([place]) Comment on above: Performed By: #### C BC, GFR, ADTIMMY, MDW, ANEU, BMP #### [address] [address] Calcium [Mass/Vol] 9.6 mg/dL Normal 8.4-10.2 [facility] ([place]) Comment on above: Performed By: #### C BC, GFR, ADIFF, MDW, ANEU, BMP #### [address] [address] Chloride [Moles/Vol] 102 mmol/L Normal 98-107 [facility] ([place]) Comment on above: Performed By: #### C BC, GFR, ADIFF, MDW, ANEU, BMP #### [address] [address] CO2 [Moles/Vol] 28 mmol/L Normal 22-29 [facility] ([place]) Comment on above: Performed By: #### C BC, GFR, ADIFF, MDW, ANEU, BMP #### [address] [address] Creatinine [Mass/Vol] 0.74 mg/dL Normal 0.55-1.02 [facility] ([place]) Comment on above: Performed By: #### C BC, GFR, ADIFF, MDW, ANEU, BMP #### [address] [address] Electrolyte Balance 9.0 mEq/L Normal 4.0-15.0 [facility] ([place]) Comment on above: Performed By: #### C BC, GFR, ADIFF, MDW, ANEU, BMP #### [address] [address] Glucose [Mass/Vol] 85 mg/dL Normal 70-105 [facility] ([place]) Comment on above: Performed By: #### C BC, GFR, ADIFF, MDW, ANEU, BMP #### [address] [address] Potassium [Moles/Vol] 3.7 mmol/L Normal 3.5-5.1 [facility] ([place]) Comment on above: Performed By: #### C BC, GFRRANDAL MDW, ANEU, BMP #### [address] [address] Sodium [Moles/Vol] 139 mmol/L Normal 136-145 [facility] ([place]) Comment on above: Performed By: #### C BC, GFRRANDAL MDW, ANEU, BMP #### [address] [address] Urea nitrogen [Mass/Vol] 9 mg/dL Normal 7-18 [facility] ([place]) Comment on above: Performed By: #### C MAGDALENE GFRRANDAL MDW, ANEU, BMP #### [address] [address] CBCon 02-22-2023 Erythrocyte distribution width (RBC) [Ratio] 15.1 % High 11.5-14.5 [facility] ([place]) Comment on above: Performed By: #### C MAGDALENE, GFRRANDAL MDW, ANEU, BMP #### [address] [address] Hematocrit (Bld) [Volume fraction] 41.8 % Normal 37.0-47.0 [facility] ([place]) Comment on above: Performed By: #### C BC, GFRRANDAL MDW, ANEU, BMP #### [address] [address] Hgb 13.9 G/dL Normal 12.0-16.0 [facility] ([place]) Comment on above: Performed By: #### C BC, GFRRANDAL MDW, ANEU, BMP #### [address] [address] MCH (RBC) [Entitic mass] 24.9 pg Low 27.0-31.2 [facility] ([place]) Comment on above: Performed By: #### C BC, GFR, SILVANA TEE, ANEU, BMP #### [address] [address] MCHC 33.3 G/dL Normal 33.0-37.0 [facility] ([place]) Comment on above: Performed By: #### C MAGDALENE GFRRANDAL MDW, ANEU, BMP #### [address] [address] MCV (RBC) [Entitic vol] 74.8 fL Low 80.0-94.0 A [facility] ([place]) Comment on above: Performed By: #### C BC, GFR, SILVANA TEE, ANEU, BMP #### [address] [address] Platelet 244 10 3/mcL Normal 130-400 [facility] ([place]) Comment on above: Performed By: #### C MAGDALENE GFRRANDAL MDW, ANEU, BMP #### [address] [address] Platelet mean volume (Bld) [Entitic vol] 9.5 fL Normal 7.4-10.4 [facility] ([place] Comment on above: Performed By: #### C MAGDALENE GFRRANDAL MDW, ANEU, BMP #### [address] [address] RBC 5.59 10 6/mcL High 4.20-5.40 [facility] ([place] Comment on above: Performed By: #### C BC, GFRRANDAL MDW, ANEU, BMP #### [address] [address] WBC 7.7 10 3/mcL Normal 4.6-10.8 [facility] ([place] Comment on above: Performed By: #### C MAGDALENE GFRRANDAL MDW, ANEU, BMP #### [address] [address] Gel ABOon 02-22-2023 ABO/Rh Interp Positive Invalid Interpretation Code [facility] ([place]) Comment on above: Performed By: #### C BC, GFRRANDAL MDW, ANEU, BMP #### [place] [address] [place], [place] [address] HCGQon 02-22-2023 hCG, quantitative <1.0 Normal [facility] ([place]) Comment on above: Result Comment: HCG Levels [...] - 100,000 mIU/mL Performed By: #### C MAGDALENE, GFR, RANDAL, W, ANEU, BMP #### [place] [address] [place], [place] [address] LABORATORYOrdered By: Suri Alexander on 02-22-2023 ABO/Rh [...] 02-22-2023 Color (U) Yellow Normal [facility] ([place] Comment on above: Performed By: #### C NGOZI DEL CASTILLO ADIFF, MDW, ANEU, BMP #### [address] [address] Glucose (U) [Mass/Vol] Negative Normal Negative [facility] ([place]) Comment on above: Performed By: #### C NGOZI DEL CASTILLO ADIFF, MDW, ANEU, BMP #### [address] [address] Ketones Ql (U) Negative Normal Negative [facility] ([place] Comment on above: Performed By: #### C NGOZI DEL CASTILLO ADIFF, MDW, ANEU, BMP #### [address] [address] UA Appear Slightly Cloudy Abnormal Clear [facility] ([place] Comment on above: Performed By: #### C NGOZI DEL CASTILLO ADIFF, MDW, ANEU, BMP #### [address] [address] UA Blood Negative Normal Negative [facility] ([place] Comment on above: Performed By: #### C NGOZI DEL CASTILLO ADIFF, MDW, ANEU, BMP #### [address] [address] UA Leuk Est Trace Abnormal Negative [facility] ([place] Comment on above: Performed By: #### C MAGDALENE GFRRANDAL MDW, ANEU, BMP #### [address] [address] UA Nitrite Negative Normal Negative [facility] ([place] Comment on above: Performed By: #### C MAGDALENE GFRRANDAL MDW, ANEU, BMP #### [address] [address] UA pH 5.5 Normal 5.0 - 8.0 [facility] ([place] Comment on above: Performed By: #### C MAGDALENE GFRRANDAL MDW, ANEU, BMP #### [address] [address] UA Protein Negative Normal Negative [facility] ([place] Comment on above: Performed By: #### C MAGDALENE GFRRANDAL MDW, ANEU, BMP #### [address] [address] UA Spec Grav >=1.030 Abnormal 1.015-1.025 [facility] ([place] Comment on above: Performed By: #### C MAGDALENE GFRRANDAL MDW, ANEU, BMP #### [address] [address] UA Specimen Type Clean Catch Normal [facility] ([place] Comment on above: Performed By: #### C MAGDALENE GFRRANDAL MDW, ANEU, BMP #### [address] [address] UA Urobilinogen 0.2 E.U./dL Normal 0.2-1.0 [facility] ([place]) Comment on above: Performed By: #### C BC, GFRRANDAL MDW, ANEU, BMP #### [address] [address] Urobilinogen (U) [Mass/Vol] Negative Normal Negative [facility] ([place]) Comment on above: Performed By: #### C MAGDALENE, NGOZI, RANDAL, W, ANEU, BMP #### [place] [address] [place], [place] [address] Absolute lymphocyte counton 02-08-2022 Lymphocytes Auto (Unsp spec) [#/Vol] 1.60 10*3/uL 0.83-4.51 [facility] Work Phone: Basophil percentageon 2021 Basophils/100 WBC (Bld) 0.3 % 0-1 [facility] Work Phone: Bilirubin [Mass/Vol] 0.40 mg/dL 0.20-1.00 [facility] Work Phone: Comment on above: For patients on eltr ombopag therapy, use of Dimension [place] TBIL is not recommended. Chloride [Moles/Vol] 104 mmol/L 98-107 [facility] Work Phone: [phone] Eosinophils/100 WBC (Bld) 4.0 % 0-5 [facility] Work Phone: Glucose [Mass/Vol] 81 mg/dL 74-106 [facility] Work Phone: Neutrophils (Bld) [#/Vol] 3.6 10*3/uL 2.0-7.7 [facility] Work Phone: Neutrophils/100 WBC (Bld) 61.8 % 47-70 [facility] Work Phone: [phone] Potassium [Moles/Vol] 3.9 mmol/L 3.5-5.[address] [facility] Work Phone: Protein [Mass/Vol] 6.1 g/dL 6.4-8.2 [facility] Work Phone: Sodium [Moles/Vol] 138 mmol/L 136-145 [facility] Work Phone: WBC (Bld) [#/Vol] 5.8 10*3/uL 4.4-11.0 [facility] Work Phone: Blood erythrocytes count (nu mber/volume)on 02-08-2022 RBC (Bld) [#/Vol] 3.48 10*6/uL 4.2-5.4 [facility] Work Phone: Blood hemoglobin measurement (mass/volume)on 02-08-2022 Hemoglobin (Bld) [Mass/Vol] 8.6 g/dL 12.0-15.0 [facility] Work Phone: Blood lymphocytes/100 leukoc yteson 02-08-2022 Lymphocytes/100 WBC (Bld) 27.6 % 19-41 [facility] Work Phone: [phone] Blood monocytes/100 leukocyt eson 02-08-2022 Monocytes/100 WBC (Bld) 6.0 % 0-10 [facility] Work Phone: Blood platelet mean volumeon 02-08-2022 Platelet mean volume (Bld) [Entitic vol] 11.5 fL 6.2-12.0 [facility] Work Phone: Determination of erythrocyte mean corpuscular volume (MCV)on 02-08-2022 MCV (RBC) [Entitic vol] 79.3 fL 81-99 [facility] Work Phone: Hematocrit Auto (Bld) [Volum e fraction]on 02-08-2022 Hematocrit (Bld) [Volume fraction] 27.6 % 37-47 [facility] Work Phone: Laboratory - Chemistry and C hemistry - challengeon 02-08-2022 ALP [Catalytic activity/Vol] 110 U/L 45-117 [facility] Work Phone: ALT [Catalytic activity/Vol] 16 U/L 13-56 [facility] Work Phone: CO2 [Moles/Vol] 29.0 mmol/L 21.0-32.0 [facility] Work Phone: Globulin (S) [Mass/Vol] 4.1 g/dL 2.2-4.2 [facility] Work Phone: Urea nitrogen/Creatinine [Mass ratio] 14.3 mg/mg 10-20 [facility] Work Phone: Laboratory - Hematology and Cell countson 02-08-2022 Erythrocyte distribution width (RBC) [Entitic vol] 43.5 fL 35.1-43.9 [facility] Work Phone: Erythrocyte distribution width (RBC) [Ratio] 15.1 % 11.6-14.6 [facility] Work Phone: Immature granulocytes/100 WBC (Bld) 0.300 % 0.0-0.9 [facility] Work Phone: Comment on above: IG% - Immature Granu locytes (promyelocytes, myelocytes and metamyelocytes) > 1% indicates that a LEFT SHIFT is Present. MCH (RBC) [Entitic mass] 24.7 pg 27.0-32.0 [facility] Work Phone: Nucleated RBC/100 WBC (Bld) [Ratio] 0 % 0-5 [facility] Work Phone: MCHC Auto (RBC) [Mass/Vol]on 02-08-2022 MCHC (RBC) [Mass/Vol] 31.2 g/dL 32-[address] [facility] Work Phone: No Panel Informationon 02-08 Estimated Creatinine Clearance Calc 135.06 ml/min [facility] Work Phone: Estimated GFR (MDRD) Amer 150 mL/min >60 [facility] Work Phone: Comment on above: GFR Calc Estimated GFR (MDRD) Non-Af Amer 124 mL/min >60 [facility] Work Phone: Comment on above: Non- GFR Calc Platelets bldon 02-08-2022 Platelets (Bld) [#/Vol] 175 10*3/uL 150-450 [facility] Work Phone: Serum or plasma albumin benita urement (mass/volume)on 02-08-2022 Albumin [Mass/Vol] 2.0 g/dL 3.2-5.0 [facility] Work Phone: Serum or plasma albumin/glob ulin mass ratioon 02-08-2022 Albumin/Globulin [Mass ratio] 0.5 {ratio} 0.9-2.4 [facility] Work Phone: Serum or plasma calcium benita urement (mass/volume)on 02-08-2022 Calcium [Mass/Vol] 8.7 mg/dL 8.5-10.1 [facility] Work Phone: Serum or plasma creatinine m easurement (mass/volume)on 02-08-2022 Creatinine [Mass/Vol] 0.63 mg/dL 0.55-1.[address] [facility] Work Phone: Comment on above: The validity of the calculated GFR & GFRAA in patients over 70 years has not been determined. Clinical correlation is essential. Serum or plasma urea nitroge n measurement (mass/volume)on 02-08-2022 Urea nitrogen [Mass/Vol] 9 mg/dL 7-18 [facility] Work Phone: Thin prep Papanicolaou smear with manual screeningon 02-08-2022 Thin prep Papanicolaou smear with manual screening 24 U/L 15-37 [facility] Work Phone: Thin prep Papanicolaou smear with manual screening 5 5-15 [facility] Work Phone: Thin prep Papanicolaou smear with manual screening 183 U/L 84-246 [facility] Work Phone: Laboratory - Chemistry and C hemistry - challengeon 02-05-2022 Magnesium [Mass/Vol] 5.4 mg/dL 1.6-2.6 [facility] Work Phone: Comment on above: Critical Result(s) C alled at: 06:16:01 02/05/2022 by: Mirela Tejeda to [employer]. Results read back by same. Basophil percentageon 2021 Basophil percentage 25-50 SEEN /hpf 0-5 [facility] Work Phone: Bilirubin Test strip Ql (U)o n 02-04-2022 Bilirubin Ql (U) Negative Negative [facility] Work Phone: Ketones Test strip Ql (U)on 02-04-2022 Ketones Ql (U) 5 mg/dl Negative [facility] Work Phone: Mucus LM Ql (Urine sed)on Mucus Ql (Urine sed) 0 SEEN /hpf [facility] Work Phone: Nitrite Test strip Ql (U)on 02-04-2022 Nitrite Ql (U) Negative Negative [facility] Work Phone: No Panel Informationon 02-04 Vaginal Amniotic Fluid Detection Negative Negative [facility] Work Phone: Comment on above: Amniotic fluid not p resent indicates No Rupture of FetalMembranes at time of specimen collection. Protein Test strip Ql (U)on 02-04-2022 Protein Ql (U) 100 mg/dl Negative [facility] Work Phone: Serum or plasma uric acid me asurement (mass/volume)on 02-04-2022 Urate [Mass/Vol] 7.5 mg/dL 2.6-6.0 [facility] Work Phone: Comment on above: The drugs N-Acetylcy steine and Metamizole may falsely depress this assay. Squamous epithelial cells de tection in urine sediment by light microscopyon 02-04-2022 Epithelial cells.squamous LM Ql (Urine sed) 50-100 SEEN /hpf 5-10 [facility] Work Phone: Urine blood detectionon 01-19 RBC Ql (U) 10 /ul Negative [facility] Work Phone: RBC Ql (U) 0 SEEN /hpf 0-5 [facility] Work Phone: Urine clarityon 02-04-2022 Clarity (U) Clear Clear [facility] Work Phone: Urine color determinationon 02-04-2022 Color (U) Yellow Yellow [facility] Work Phone: Urine creatinine measurement (mass/volume)on 02-04-2022 Creatinine (U) [Mass/Vol] 150.00 mg/dL NO RANGE EST. [facility] Work Phone: Urine glucose detectionon Glucose Ql (U) Normal mg/dl Normal [facility] Work Phone: Urine leukocyte esterase det ection by dipstickon 02-04-2022 Leukocyte esterase Test strip Ql (U) 500 /ul Negative [facility] Work Phone: Urine pHon 02-04-2022 pH (U) 7.0 [pH] 5.0 - 8.0 [facility] Work Phone: Urine protein measurement (m ass/volume)on 02-04-2022 Protein (U) [Mass/Vol] 135.5 mg/dL 0.0-11.8 [facility] Work Phone: Urine protein/creatinine mas s ratioon 02-04-2022 Protein/Creatinine (U) [Mass ratio] 903 mg/g CRE 0-200 [facility] Work Phone: Urine sediment bacteria coun t by microscopy (number/high power field)on 02-04-2022 Bacteria LM.HPF (Urine sed) [#/Area] 0 /[HPF] None Seen [facility] Work Phone: Urine specific gravity measu rementon 02-04-2022 Specific gravity (U) [Rel density] 1.010 1.002-1.030 [facility] Work Phone: Urobilinogen Auto test strip Ql (U)on 02-04-2022 Urobilinogen Ql (U) Normal mg/dl Normal [facility] Work Phone: Absolute lymphocyte counton 02-01-2022 Lymphocytes Auto (Unsp spec) [#/Vol] 1.11 10*3/uL 0.83-4.51 [facility] Work Phone: Basophil percentageon 2021 Basophils/100 WBC (Bld) 0.4 % 0-1 [facility] Work Phone: Bilirubin [Mass/Vol] 0.40 mg/dL 0.20-1.00 [facility] Work Phone: Comment on above: For patients on eltr ombopag therapy, use of Dimension [place] TBIL is not recommended. Chloride [Moles/Vol] 107 mmol/L 98-107 [facility] Work Phone: [phone] Eosinophils/100 WBC (Bld) 0.4 % 0-5 [facility] Work Phone: Glucose [Mass/Vol] 81 mg/dL 74-106 [facility] Work Phone: Neutrophils (Bld) [#/Vol] 3.1 10*3/uL 2.0-7.7 [facility] Work Phone: Neutrophils/100 WBC (Bld) 67.3 % 47-70 [facility] Work Phone: [phone] Potassium [Moles/Vol] 3.8 mmol/L 3.5-5.[address] [facility] Work Phone: Protein [Mass/Vol] 6.1 g/dL 6.4-8.2 [facility] Work Phone: Sodium [Moles/Vol] 139 mmol/L 136-145 [facility] Work Phone: WBC (Bld) [#/Vol] 4.6 10*3/uL 4.4-11.0 [facility] Work Phone: Blood erythrocytes count (nu mber/volume)on 02-01-2022 RBC (Bld) [#/Vol] 3.92 10*6/uL 4.2-5.4 [facility] Work Phone: Blood hemoglobin measurement (mass/volume)on 02-01-2022 Hemoglobin (Bld) [Mass/Vol] 9.8 g/dL 12.0-15.0 [facility] Work Phone: Blood lymphocytes/100 leukoc yteson 02-01-2022 Lymphocytes/100 WBC (Bld) 24.0 % 19-41 [facility] Work Phone: Blood monocytes/100 leukocyt eson 02-01-2022 Monocytes/100 WBC (Bld) 7.3 % 0-10 [facility] Work Phone: Blood platelet mean volumeon 02-01-2022 Platelet mean volume (Bld) [Entitic vol] 12.2 fL 6.2-12.0 [facility] Work Phone: Determination of erythrocyte mean corpuscular volume (MCV)on 02-01-2022 MCV (RBC) [Entitic vol] 78.1 fL 81-99 [facility] Work Phone: Hematocrit Auto (Bld) [Volum e fraction]on 02-01-2022 Hematocrit (Bld) [Volume fraction] 30.6 % 37-47 [facility] Work Phone: Laboratory - Chemistry and C hemistry - challengeon 02-01-2022 ALP [Catalytic activity/Vol] 158 U/L 45-117 [facility] Work Phone: ALT [Catalytic activity/Vol] 35 U/L 13-56 [facility] Work Phone: CO2 [Moles/Vol] 26.0 mmol/L 21.0-32.0 [facility] Work Phone: Globulin (S) [Mass/Vol] 4.1 g/dL 2.2-4.2 [facility] Work Phone: Urea nitrogen/Creatinine [Mass ratio] 8.6 mg/mg 10-20 [facility] Work Phone: Laboratory - Hematology and Cell countson 02-01-2022 Erythrocyte distribution width (RBC) [Entitic vol] 38.8 fL 35.1-43.9 [facility] Work Phone: [phone] Erythrocyte distribution width (RBC) [Ratio] 13.9 % 11.6-14.6 [facility] Work Phone: Immature granulocytes/100 WBC (Bld) 0.600 % 0.0-0.9 [facility] Work Phone: Comment on above: IG% - Immature Granu locytes (promyelocytes, myelocytes and metamyelocytes) > 1% indicates that a LEFT SHIFT is Present. MCH (RBC) [Entitic mass] 25.0 pg 27.0-32.0 [facility] Work Phone: Nucleated RBC/100 WBC (Bld) [Ratio] 0.4 % 0-5 [facility] Work Phone: MCHC Auto (RBC) [Mass/Vol]on 02-01-2022 MCHC (RBC) [Mass/Vol] 32.0 g/dL 32-[address] [facility] Work Phone: No Panel Informationon 02-01 Estimated GFR (MDRD) Amer 134 mL/min >60 [facility] Work Phone: Comment on above: GFR Calc Estimated GFR (MDRD) Non-Af Amer 111 mL/min >60 [facility] Work Phone: Comment on above: Non- GFR Calc Platelets bldon 02-01-2022 Platelets (Bld) [#/Vol] 157 10*3/uL 150-450 [facility] Work Phone: Serum or plasma albumin benita urement (mass/volume)on 02-01-2022 Albumin [Mass/Vol] 2.0 g/dL 3.2-5.0 [facility] Work Phone: Serum or plasma albumin/glob ulin mass ratioon 02-01-2022 Albumin/Globulin [Mass ratio] 0.5 {ratio} 0.9-2.4 [facility] Work Phone: Serum or plasma calcium benita urement (mass/volume)on 02-01-2022 Calcium [Mass/Vol] 8.4 mg/dL 8.5-10.1 [facility] Work Phone: Serum or plasma creatinine m easurement (mass/volume)on 02-01-2022 Creatinine [Mass/Vol] 0.70 mg/dL 0.55-1.[address] [facility] Work Phone: Comment on above: The validity of the calculated GFR & GFRAA in patients over 70 years has not been determined. Clinical correlation is essential. Serum or plasma urea nitroge n measurement (mass/volume)on 02-01-2022 Urea nitrogen [Mass/Vol] 6 mg/dL 7-18 [facility] Work Phone: Thin prep Papanicolaou smear with manual screeningon 02-01-2022 Thin prep Papanicolaou smear with manual screening 35 U/L 15-37 [facility] Work Phone: Thin prep Papanicolaou smear with manual screening 6 5-15 [facility] Work Phone: Thin prep Papanicolaou smear with manual screening 198 U/L 84-246 [facility] Work Phone: Urine creatinine measurement (mass/volume)on 02-01-2022 Creatinine (U) [Mass/Vol] 73.30 mg/dL NO RANGE EST. [facility] Work Phone: Urine protein measurement (m ass/volume)on 02-01-2022 Protein (U) [Mass/Vol] 48.2 mg/dL 0.0-11.8 [facility] Work Phone: Urine protein/creatinine mas s ratioon 02-01-2022 Protein/Creatinine (U) [Mass ratio] 658 mg/g CRE 0-200 [facility] Work Phone: Progress Noteon 01-31-2022 Progress Note [...] mg Rectal q6h PRN Bunny Ramirez, DO docusate sodium (Colace) capsule 100 mg 100 mg Oral BID Bunny Ramirez, DO 100 mg at 01/30/22 0906 ferrous [...] on admission -Given BMZ x2 on 01/28 ([place]) and 01/29 ([facility]) -s/p Procardia for tocolysis - SVE remains [...] hx of HTN disorders previously -UPC at [place] 0.4, however repeat at [facility] 0.24 -CMP and CBC wnl -Asymptomatic -BP overnight normotensive Anemia -Hgb on admission 10.4 -Iron and colace ordered HSV -Recent outbreak 1 week prior to admission and on suppressive valtrex, reports compliance -SEE negative at [place] and [facility] for lesions -Continue Valtrex 500g BID -Plan for SVE if makes cervical change Hx of PTD -G1 36w PPROM leading to -Compliant with vaginal progesterone this -Not currently continued while inpatient Depression -Continue home zoloft Anesthesia Complications -Pseudocholinesterase deficiency -Anesthesia notified on arrival IUP @ 34w1d - Dating by ART - Vtx/Vtx 01/30 - Monitorinhr TID - Diet:General - BMZ x2 on Further plan pending d/w attending. Mariah Ansari MD 01/31/2022, 6:06 AM Normal [facility] CARECOORDon 01-30-2022 CARECOORD 21 year old admitted for and transport from [place] to labor with di/di twins at 33/5 weeks. 2 Para 1. Preeclampsia History of delivery, on progesterone. History of depression, mood stable ion Zoloft. Denies needs of food, transportation or housing. Voiced no needs or concerns. Normal [facility] Consulton 01-30-2022 Consult Consult by Neonatology Request by OB: Resident for Dr. Carey Reason for Consult: Prematurity, Twin Gestation Maternal History and current problem: Di/Di twin gestation at 34 weeks. Presented to [place] with labor and pre-eclampsia without severe features. Transferred to [facility] for management. Significant history: ART , [...] from NICU Potential need for transfer to [facility] if needs esclation of care, based on a variety of factors. Handouts given. No further questions. A/P: Patient is a 21 Year old At 34 Weeks 0 Days by Pt. report With labor and pre-eclampsia without severe features 1. Current Management per OB 2. NICU to attend delivery 3. Call NICU if further questions. Stephan Darden, SELLING UNDERWRITER-OCEANOLOGY TEACHER Normal [facility] Nursing Noteon 01-30-2022 Nursing Note Patient sitting up i n chair, stating that she is having vaginal pressure especially when up walking and sitting on toilet, also having lots of Bms today. Has had several times of blood streaked mucous when wiping. Normal [facility] Progress Noteon 01-30-2022 Progress Note Patient feeling some low back pain, possibly some mild contractions every once in a while. Having increased mucous discharge with int vaginal spotting when she wipes. SVE unchanged from last night /-4. Patient reassured and will try tylenol with lidocaine patch, back pain is most likely from MSK pain. [place] quiet. ASIYA GERMAN DO 01/30/2022 8:39 PM [facility] Progress Note Nutrition rescreen completed. Chart reviewed. Patient to be monitored and followed by the diet wetlands technician. Dietitian available upon request. ALCIRA Baez Normal [facility] Progress Note --- Attestation signed by [...] BID Bunny Ramirez, DO 100 mg at 01/29/222028 ferrous sulfate [...] range Bps noted >4 hours apart at [place] and [facility] -No hx of HTN disorders previously -UPC at [place] 0.4, however repeat at [facility] 0.24 -CMP and CBC wnl -Asymptomatic -BP overnight normotensive Anemia -Hgb on admission 10.4 -Iron and colace ordered HSV -Recent outbreak 1 week ago and on suppressive valtrex, reports compliance -SEE negative at [place] and [facility] for lesions -Continue Valtrex 500g [...] attending. Mariah Ansari MD 01/30/2022, 6:33 AM [facility] US BIOPHYSICAL PROFILE WO NON STRESS TESTINGon 01-30-2022 US BIOPHYSICAL PROFILE WO NON STRESS TESTING - OBSTETRICS REPORT (Signed Final 01/30/2022 11:25 am) - PATIENT INFO: ID #: [id number] : [birth year] (21 yrs)(F) Name: JUANITA PAULINO Visit Date: 01/30/2022 10:23 am - PERFORMED BY: Attending: Sarina Carey MD Performed By: Dorita Kam RDMS Referred By: BUNNY RAMIREZ Location: [facility] IP Visit Type: Inpatient - Hospital - SERVICE(S) [place] [id number] [place] [address] BPP w/out NST 98372 BPP w/out NST 52686 - INDICATIONS: Di/ Di Twins Threatened Labor - VITAL SIGNS: Weight (lb): 305 Height: 5'7" BMI: 47.76 - EVALUATION (FETUS A): Num [...] 10 oz 59 % FW Discordancy: 0 \\ 0 % - GESTATIONAL AGE (FETUS A): Clinical MARCELLE: 34w 0d MARCELLE: 01/23/23 U/S Today: 35w 2d MARCELLE: 03/04/22 Best: [...] 10 oz 59 % FW Discordancy: 0 \\ 0 % - GESTATIONAL AGE (FETUS B): [...] Normal appearance (more content not included)... Normal [facility] US OB FOLLOW UP CLARKABDOMLUIS Marx 01-30-2022 US OB FOLLOW UP TRANSABDOMINAL APPROACH - OBSTETRICS REPORT (Signed Final 01/30/2022 11:25 am) - PATIENT INFO: ID #: [id number] : [birth year] (21 yrs)(F) Name: JUANITA PAULINO Visit Date: 01/30/2022 10:23 am - PERFORMED BY: Attending: Sarina Carey MD Performed By: Dorita Kam RDMS Referred By: BUNNY RAMIREZ Location: [facility] IP Visit Type: Inpatient - Hospital - SERVICE(S) [place]: [place] [id number] [place] [address] BPP w/out NST 16035 BPP w/out NST 92215 - INDICATIONS: Di/ Di Twins Threatened Labor - VITAL SIGNS: Weight (lb): 305 Height: 5'7" BMI: 47.76 - EVALUATION (FETUS A): Num [...] 10 oz 59 % FW Discordancy: 0 \\ 0 % - GESTATIONAL AGE (FETUS A): [...] 10 oz 59 % FW Discordancy: 0 \\ 0 % - GESTATIONAL AGE (FETUS B): [...] Normal appearance (more content not included)... Normal [facility] Progress Noteon 01-29-2022 Progress Note SSE negative for ROM . Still 4cm on SVE. ASIYA GERMAN DO 01/29/2022 9:00 PM Normal [facility] Progress Note --- Attestation signed by [...] the first dose of BMZ. Hypertension at [place], no severe features of preeclampsia at this time. Repeat preeclampsia labs if increasing BP or symptoms concerning for preeclampsia. Plan for growth US in am. I spent 15 minutes in the visit, with more than 50% of the total [id number] time of the visit in counseling/coordination of [...] ringers infusion 125 mL/hr IntraVENous Continuous Bunny Ramirez DO 125 mL/hr at 01/28/222044 125 mL/hr at 01/28/222044 NIFEdipine (Procardia) capsule 10 mg 10 mg Oral 4 times per day Bunny Ramirez, DO 10 mg at 01/29/22 0213 ondansetron ODT (Zofran-ODT) disintegrating tablet 4 mg 4 mg Oral q8h PRN Bunny Ramirez DO Or ondansetron (Zofran) injection 4 mg 4 mg IntraVENous q6h PRN Bunny Ramirez, vitamin tablet 1 tablet Oral Daily Bunny Ramirez DO sertraline (Zoloft) tablet 50 mg 50 mg Oral Daily Bunny Ramirez, valACYclovir (Valtrex) tablet 500 mg 500 mg Oral BID Bunny Ramirez, DO 500 mg at 01/28/222041 Assessment/Plan: Juanita Paulino is a 21 y.o. female 33w6d Threatened Labor -Presented from [place] as a transfer for concern of tPTL after reporting contractions -Made cervical parks at [place] from Closed to 2cm, and was further noted to be 4cm while in [facility] triage -Given BMZ x2 on 01/28 ([place]) and 01/29 ([facility]) -Continue Procarda for 48 hour tocolysis (01/30 [...] range Bps noted >4 hours apart at [place] and [facility] -No hx of HTN disorders previously -UPC at [place] 0.4, however repeat at [facility] 0.24 -CMP and CBC wnl -Asymptomatic -BP overnight normotensive Anemia -Hgb on admission 10.4 -Iron and colace ordered 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 Normal [facility] No Panel Informationon 01-28 Specimen Comment (Misc) Not Reportable [facility] Work Phone: Progress Noteon 01-28-2022 Progress Note Courtesy visit: Pt's OB hx reviewed. Stopped and saw pt. Pt looked comfortable on . D/w pt expected plan if she goes into labor. S/p BMZ x1. Lukas Mcneil DO. Normal [facility] Serum or plasma ferritin susie surement (mass/volume)on 01-28-2022 Ferritin [Mass/Vol] 7 ng/mL 8-252 [facility]: Thin prep Papanicolaou smear with manual screeningon 01-28-2022 Thin prep Papanicolaou smear with manual screening Negative Negative [facility] Work Phone: Absolute lymphocyte counton 01-27-2022 Lymphocytes Auto (Unsp spec) [#/Vol] 1.35 10*3/uL 0.83-4.51 [facility] Work Phone: Basophil percentageon 2021 Basophils/100 WBC (Bld) 0.7 % 0-1 [facility] Work Phone: Bilirubin [Mass/Vol] 0.40 mg/dL 0.20-1.00 [facility] Work Phone: Comment on above: For patients on eltr ombopag therapy, use of Dimension [place] TBIL is not recommended. Chloride [Moles/Vol] 109 mmol/L 98-107 [facility] Work Phone: Eosinophils/100 WBC (Bld) 0.5 % 0-5 [facility] Work Phone: Glucose [Mass/Vol] 79 mg/dL 74-106 [facility] Work Phone: [phone] Neutrophils (Bld) [#/Vol] 2.6 10*3/uL 2.0-7.7 [facility] Work Phone: Neutrophils/100 WBC (Bld) 59.5 % 47-70 [facility] Work Phone: Potassium [Moles/Vol] 3.7 mmol/L 3.5-5.1 [facility]: [phone] Protein [Mass/Vol] 6.3 g/dL 6.4-8.2 [facility]: Sodium [Moles/Vol] 141 mmol/L 136-145 [facility] Work Phone: WBC (Bld) [#/Vol] 4.3 10*3/uL 4.4-11.0 [facility] Work Phone: Basophil percentage 0-5 SEEN /hpf 0-5 [facility] Work Phone: Bilirubin Test strip Ql (U)o n 01-27-2022 Bilirubin Ql (U) Negative Negative [facility] Work Phone: Blood erythrocytes count (nu mber/volume)on 01-27-2022 RBC (Bld) [#/Vol] 4.08 10*6/uL 4.2-5.4 [facility] Work [facility]: Blood hemoglobin measurement (mass/volume)on 01-27-2022 Hemoglobin (Bld) [Mass/Vol] 9.8 g/dL 12.0-15.0 [facility] Work Phone: Blood lymphocytes/100 leukoc yteson 01-27-2022 Lymphocytes/100 WBC (Bld) 31.4 % 19-41 [facility] Work Phone: [phone] Blood monocytes/100 leukocyt eson 01-27-2022 Monocytes/100 WBC (Bld) 7.2 % 0-10 [facility] Work Phone: [phone] Blood platelet mean volumeon 01-27-2022 Platelet mean volume (Bld) [Entitic vol] 12.9 fL 6.2-12.0 [facility] Work Phone: Determination of erythrocyte mean corpuscular volume (MCV)on 01-27-2022 MCV (RBC) [Entitic vol] 77.0 fL 81-99 [facility] Work Phone: Hematocrit Auto (Bld) [Volum e fraction]on 01-27-2022 Hematocrit (Bld) [Volume fraction] 31.4 % 37-47 [facility] Work Phone: Ketones Test strip Ql (U)on 01-27-2022 Ketones Ql (U) 5 mg/dl Negative [facility] Work Phone: Laboratory - Chemistry and C hemistry - challengeon 01-27-2022 ALP [Catalytic activity/Vol] 155 U/L 45-117 [facility] Work Phone: ALT [Catalytic activity/Vol] 20 U/L 13-56 [facility] Work Phone: CO2 [Moles/Vol] 24.0 mmol/L 21.0-32.0 [facility] Work Phone: Globulin (S) [Mass/Vol] 4.1 g/dL 2.2-4.2 [facility] Work Phone: Urea nitrogen/Creatinine [Mass ratio] 9.5 mg/mg 10-20 [facility] Work Phone: Laboratory - Hematology and Cell countson 01-27-2022 Erythrocyte distribution width (RBC) [Entitic vol] 38.0 fL 35.1-43.9 [facility] Work Phone: [phone] Erythrocyte distribution width (RBC) [Ratio] 13.5 % 11.6-14.6 [facility] Work Phone: Immature granulocytes/100 WBC (Bld) 0.700 % 0.0-0.9 [facility] Work Phone: Comment on above: IG% - Immature Granu locytes (promyelocytes, myelocytes and metamyelocytes) > 1% indicates that a LEFT SHIFT is Present. MCH (RBC) [Entitic mass] 24.0 pg 27.0-32.0 [facility] Work Phone: Nucleated RBC/100 WBC (Bld) [Ratio] 0 % 0-5 [facility] Work Phone: MCHC Auto (RBC) [Mass/Vol]on 01-27-2022 MCHC (RBC) [Mass/Vol] 31.2 g/dL 32-[address] [facility] Work Phone: Mucus LM Ql (Urine sed)on Mucus Ql (Urine sed) 0 SEEN /hpf [facility] Work Phone: Nitrite Test strip Ql (U)on 01-27-2022 Nitrite Ql (U) Negative Negative [facility] Work Phone: No Panel Informationon 01-27 Estimated Creatinine Clearance Calc 90.52 ml/min [facility] Work Phone: Estimated GFR (MDRD) Amer 94 mL/min >60 [facility] Work Phone: Comment on above: GFR Calc Estimated GFR (MDRD) Non-Af Amer 78 mL/min >60 [facility] Work Phone: Comment on above: Non- GFR Calc Platelets bldon 01-27-2022 Platelets (Bld) [#/Vol] 200 10*3/uL 150-450 [facility] Work Phone: Protein Test strip Ql (U)on 01-27-2022 Protein Ql (U) 100 mg/dl Negative [facility] Work Phone: Serum or plasma albumin benita urement (mass/volume)on 01-27-2022 Albumin [Mass/Vol] 2.2 g/dL 3.2-5.0 [facility] Work Phone: Serum or plasma albumin/glob ulin mass ratioon 01-27-2022 Albumin/Globulin [Mass ratio] 0.5 {ratio} 0.9-2.4 [facility] Work Phone: Serum or plasma calcium benita urement (mass/volume)on 01-27-2022 Calcium [Mass/Vol] 9.3 mg/dL 8.5-10.1 [facility] Work Phone: Serum or plasma creatinine m easurement (mass/volume)on 01-27-2022 Creatinine [Mass/Vol] 0.94 mg/dL 0.55-1.[address] [facility] Work Phone: Comment on above: The validity of the calculated GFR & GFRAA in patients over 70 years has not been determined. Clinical correlation is essential. Serum or plasma urea nitroge n measurement (mass/volume)on 01-27-2022 Urea nitrogen [Mass/Vol] 9 mg/dL 7-18 [facility] Work Phone: Squamous epithelial cells de tection in urine sediment by light microscopyon 01-27-2022 Epithelial cells.squamous LM Ql (Urine sed) 5-10 SEEN /hpf 5-10 [facility] Work Phone: Thin prep Papanicolaou smear with manual screeningon 01-27-2022 Thin prep Papanicolaou smear with manual screening 28 U/L 15-37 [facility] Work Phone: Thin prep Papanicolaou smear with manual screening 8 5-15 [facility] Work Phone: Thin prep Papanicolaou smear with manual screening 155 U/L 84-246 [facility] Work Phone: Urine blood detectionon RBC Ql (U) 10 /ul Negative [facility] Work Phone: RBC Ql (U) 0-5 SEEN /hpf 0-5 [facility] Work Phone: Urine clarityon 01-27-2022 Clarity (U) Clear Clear [facility] Work Phone: Urine color determinationon 01-27-2022 Color (U) Yellow Yellow [facility] Work Phone: Urine creatinine measurement (mass/volume)on 01-27-2022 Creatinine (U) [Mass/Vol] 332.00 mg/dL NO RANGE EST. [facility] Work Phone: Urine glucose detectionon Glucose Ql (U) Normal mg/dl Normal [facility] Work Phone: Urine leukocyte esterase det ection by dipstickon 01-27-2022 Leukocyte esterase Test strip Ql (U) 500 /ul Negative [facility] Work Phone: Urine pHon 01-27-2022 pH (U) 6.0 [pH] 5.0 - 8.0 [facility] Work Phone: Urine protein measurement (m ass/volume)on 01-27-2022 Protein (U) [Mass/Vol] 140.6 mg/dL 0.0-11.8 [facility] Work Phone: Urine protein/creatinine mas s ratioon 01-27-2022 Protein/Creatinine (U) [Mass ratio] 423 mg/g CRE 0-200 [facility] Work Phone: Urine sediment bacteria coun t by microscopy (number/high power field)on 01-27-2022 Bacteria LM.HPF (Urine sed) [#/Area] 0 /[HPF] None Seen [facility] Work Phone: Urine specific gravity measu rementon 01-27-2022 Specific gravity (U) [Rel density] 1.020 1.002-1.030 [facility] Work Phone: Urobilinogen Auto test strip Ql (U)on 01-27-2022 Urobilinogen Ql (U) 1 mg/dl Normal [facility] Work Phone: Absolute lymphocyte counton 01-24-2022 Lymphocytes Auto (Unsp spec) [#/Vol] 1.07 10*3/uL 0.83-4.51 [facility] Work Phone: Basophil percentageon 2021 Basophils/100 WBC (Bld) 0.5 % 0-1 [facility] Work Phone: Bilirubin [Mass/Vol] 0.50 mg/dL 0.20-1.00 [facility] Work Phone: Comment on above: For patients on eltr ombopag therapy, use of Dimension [place] TBIL is not recommended. Chloride [Moles/Vol] 107 mmol/L 98-107 [facility] Work Phone: Eosinophils/100 WBC (Bld) 0.5 % 0-5 [facility] Work Phone: Glucose [Mass/Vol] 84 mg/dL 74-106 [facility] Work Phone: Neutrophils (Bld) [#/Vol] 2.6 10*3/uL 2.0-7.7 [facility] Work Phone: Neutrophils/100 WBC (Bld) 65.3 % 47-70 [facility] Work Phone: Potassium [Moles/Vol] 3.8 mmol/L 3.5-5.[address] [facility] Work Phone: Protein [Mass/Vol] 6.6 g/dL 6.4-8.2 [facility] Work Phone: Sodium [Moles/Vol] 140 mmol/L 136-145 [facility] Work Phone: WBC (Bld) [#/Vol] 4.0 10*3/uL 4.4-11.0 [facility] Work Phone: [phone] Blood erythrocytes count (nu mber/volume)on 01-24-2022 RBC (Bld) [#/Vol] 4.31 10*6/uL 4.2-5.4 [facility] Work Phone: Blood hemoglobin measurement (mass/volume)on 01-24-2022 Hemoglobin (Bld) [Mass/Vol] 10.5 g/dL 12.0-15.0 [facility] Work Phone: Blood lymphocytes/100 leukoc yteson 01-24-2022 Lymphocytes/100 WBC (Bld) 26.6 % 19-41 [facility] Work Phone: Blood monocytes/100 leukocyt eson 01-24-2022 Monocytes/100 WBC (Bld) 6.9 % 0-10 [facility] Work Phone: Blood platelet mean volumeon 01-24-2022 Platelet mean volume (Bld) [Entitic vol] 11.4 fL 6.2-12.0 [facility] Work Phone: Determination of erythrocyte mean corpuscular volume (MCV)on 01-24-2022 MCV (RBC) [Entitic vol] 77.0 fL 81-99 [facility] Work Phone: [phone] Hematocrit Auto (Bld) [Volum e fraction]on 01-24-2022 Hematocrit (Bld) [Volume fraction] 33.2 % 37-47 [facility] Work Phone: Laboratory - Chemistry and C hemistry - challengeon 01-24-2022 ALP [Catalytic activity/Vol] 155 U/L 45-117 [facility] Work Phone: ALT [Catalytic activity/Vol] 17 U/L 13-56 [facility] Work Phone: CO2 [Moles/Vol] 24.0 mmol/L 21.0-32.0 [facility] Work Phone: Globulin (S) [Mass/Vol] 4.4 g/dL 2.2-4.2 [facility] Work Phone: Urea nitrogen/Creatinine [Mass ratio] 8.9 mg/mg 10-20 [facility] Work Phone: Laboratory - Hematology and Cell countson 01-24-2022 Erythrocyte distribution width (RBC) [Entitic vol] 38.4 fL 35.1-43.9 [facility] Work Phone: [phone] Erythrocyte distribution width (RBC) [Ratio] 13.7 % 11.6-14.6 [facility] Work Phone: Immature granulocytes/100 WBC (Bld) 0.200 % 0.0-0.9 [facility] Work Phone: Comment on above: IG% - Immature Granu locytes (promyelocytes, myelocytes and metamyelocytes) > 1% indicates that a LEFT SHIFT is Present. MCH (RBC) [Entitic mass] 24.4 pg 27.0-32.0 [facility] Work Phone: Nucleated RBC/100 WBC (Bld) [Ratio] 0 % 0-5 [facility] Work Phone: MCHC Auto (RBC) [Mass/Vol]on 01-24-2022 MCHC (RBC) [Mass/Vol] 31.6 g/dL 32-[address] [facility] Work Phone: No Panel Informationon 01-24 Estimated GFR (MDRD) Amer 116 mL/min >60 [facility] Work Phone: Comment on above: GFR Calc Estimated GFR (MDRD) Non-Af Amer 96 mL/min >60 [facility] Work Phone: Comment on above: Non- GFR Calc Platelets bldon 01-24-2022 Platelets (Bld) [#/Vol] 191 10*3/uL 150-450 [facility] Work Phone: Serum or plasma albumin benita urement (mass/volume)on 01-24-2022 Albumin [Mass/Vol] 2.2 g/dL 3.2-5.0 [facility] Work Phone: Serum or plasma albumin/glob ulin mass ratioon 01-24-2022 Albumin/Globulin [Mass ratio] 0.5 {ratio} 0.9-2.4 [facility] Work Phone: Serum or plasma calcium benita urement (mass/volume)on 01-24-2022 Calcium [Mass/Vol] 8.8 mg/dL 8.5-10.1 [facility] Work Phone: Serum or plasma creatinine m easurement (mass/volume)on 01-24-2022 Creatinine [Mass/Vol] 0.79 mg/dL 0.55-1.[address] [facility] Work Phone: Comment on above: The validity of the calculated GFR & GFRAA in patients over 70 years has not been determined. Clinical correlation is essential. Serum or plasma urea nitroge n measurement (mass/volume)on 01-24-2022 Urea nitrogen [Mass/Vol] 7 mg/dL 7-18 [facility] Work Phone: Thin prep Papanicolaou smear with manual screeningon 01-24-2022 Thin prep Papanicolaou smear with manual screening 25 U/L 15-37 [facility] Work Phone: Thin prep Papanicolaou smear with manual screening 9 5-15 [facility] Work Phone: Thin prep Papanicolaou smear with manual screening 180 U/L 84-246 [facility] Work Phone: Urine creatinine measurement (mass/volume)on 01-24-2022 Creatinine (U) [Mass/Vol] 381.00 mg/dL NO RANGE EST. [facility] Work Phone: Urine protein measurement (m ass/volume)on 01-24-2022 Protein (U) [Mass/Vol] 101.7 mg/dL 0.0-11.8 [facility] Work Phone: Urine protein/creatinine mas s ratioon 01-24-2022 Protein/Creatinine (U) [Mass ratio] 267 mg/g CRE 0-200 [facility] Work Phone: Absolute lymphocyte counton 01-17-2022 Lymphocytes Auto (Unsp spec) [#/Vol] 1.11 10*3/uL 0.83-4.51 [facility] Work Phone: Basophil percentageon 2021 Basophils/100 WBC (Bld) 0.4 % 0-1 [facility] Work Phone: Bilirubin [Mass/Vol] 0.60 mg/dL 0.20-1.00 [facility] Work Phone: Comment on above: For patients on eltr ombopag therapy, use of Dimension [place] TBIL is not recommended. Chloride [Moles/Vol] 103 mmol/L 98-107 [facility]: Eosinophils/100 WBC (Bld) 0.4 % 0-5 [facility] Work Phone: Glucose [Mass/Vol] 83 mg/dL 74-106 [facility] Work Phone: Neutrophils (Bld) [#/Vol] 3.1 10*3/uL 2.0-7.7 [facility] Work Phone: Neutrophils/100 WBC (Bld) 67.7 % 47-70 [facility] Work Phone: Potassium [Moles/Vol] 3.7 mmol/L 3.5-5.1 [facility]: Protein [Mass/Vol] 6.6 g/dL 6.4-8.2 [facility] Work Phone: Sodium [Moles/Vol] 137 mmol/L 136-145 [facility] Work Phone: WBC (Bld) [#/Vol] 4.6 10*3/uL 4.4-11.0 [facility] Work Phone: Blood erythrocytes count (nu mber/volume)on 01-17-2022 RBC (Bld) [#/Vol] 4.29 10*6/uL 4.2-5.4 [facility]: Blood hemoglobin measurement (mass/volume)on 01-17-2022 Hemoglobin (Bld) [Mass/Vol] 10.7 g/dL 12.0-15.0 [facility] Work Phone: Blood lymphocytes/100 leukoc yteson 01-17-2022 Lymphocytes/100 WBC (Bld) 24.3 % 19-41 [facility] Work Phone: Blood monocytes/100 leukocyt eson 01-17-2022 Monocytes/100 WBC (Bld) 6.8 % 0-10 [facility] Work Phone: Blood platelet mean volumeon 01-17-2022 Platelet mean volume (Bld) [Entitic vol] 11.4 fL 6.2-12.0 [facility] Work Phone: Determination of erythrocyte mean corpuscular volume (MCV)on 01-17-2022 MCV (RBC) [Entitic vol] 77.6 fL 81-99 [facility] Work Phone: Hematocrit Auto (Bld) [Volum e fraction]on 01-17-2022 Hematocrit (Bld) [Volume fraction] 33.3 % 37-47 [facility] Work Phone: Laboratory - Chemistry and C hemistry - challengeon 01-17-2022 ALP [Catalytic activity/Vol] 138 U/L 45-117 [facility] Work Phone: ALT [Catalytic activity/Vol] 13 U/L 13-56 [facility] Work Phone: CO2 [Moles/Vol] 24.0 mmol/L 21.0-32.0 [facility] Work Phone: Globulin (S) [Mass/Vol] 4.4 g/dL 2.2-4.2 [facility] Work Phone: Urea nitrogen/Creatinine [Mass ratio] 8.2 mg/mg 10-20 [facility] Work Phone: Laboratory - Hematology and Cell countson 01-17-2022 Erythrocyte distribution width (RBC) [Entitic vol] 39.5 fL 35.1-43.9 [facility] Work Phone: Erythrocyte distribution width (RBC) [Ratio] 14.2 % 11.6-14.6 [facility] Work Phone: Immature granulocytes/100 WBC (Bld) 0.400 % 0.0-0.9 [facility] Work Phone: Comment on above: IG% - Immature Granu locytes (promyelocytes, myelocytes and metamyelocytes) > 1% indicates that a LEFT SHIFT is Present. MCH (RBC) [Entitic mass] 24.9 pg 27.0-32.0 [facility] Work Phone: Nucleated RBC/100 WBC (Bld) [Ratio] 0 % 0-5 [facility] Work Phone: MCHC Auto (RBC) [Mass/Vol]on 01-17-2022 MCHC (RBC) [Mass/Vol] 32.1 g/dL 32-[address] [facility] Work Phone: No Panel Informationon 01-17 Estimated Creatinine Clearance Calc 114.98 ml/min [facility] Work Phone: Estimated GFR (MDRD) Amer 126 mL/min >60 [facility] Work Phone: Comment on above: GFR Calc Estimated GFR (MDRD) Non-Af Amer 104 mL/min >60 [facility] Work Phone: Comment on above: Non- GFR Calc Platelets bldon 01-17-2022 Platelets (Bld) [#/Vol] 207 10*3/uL 150-450 [facility] Work Phone: Serum or plasma albumin benita urement (mass/volume)on 01-17-2022 Albumin [Mass/Vol] 2.2 g/dL 3.2-5.0 [facility] Work Phone: Serum or plasma albumin/glob ulin mass ratioon 01-17-2022 Albumin/Globulin [Mass ratio] 0.5 {ratio} 0.9-2.4 [facility] Work Phone: Serum or plasma calcium benita urement (mass/volume)on 01-17-2022 Calcium [Mass/Vol] 8.5 mg/dL 8.5-10.1 [facility] Work Phone: Serum or plasma creatinine m easurement (mass/volume)on 01-17-2022 Creatinine [Mass/Vol] 0.74 mg/dL 0.55-1.[address] [facility] Work Phone: Comment on above: The validity of the calculated GFR & GFRAA in patients over 70 years has not been determined. Clinical correlation is essential. Serum or plasma urea nitroge n measurement (mass/volume)on 01-17-2022 Urea nitrogen [Mass/Vol] 6 mg/dL 7-18 [facility] Work Phone: Thin prep Papanicolaou smear with manual screeningon 01-17-2022 Thin prep Papanicolaou smear with manual screening 20 U/L 15-37 [facility] Work Phone: Thin prep Papanicolaou smear with manual screening 10 5-15 [facility] Work Phone: Thin prep Papanicolaou smear with manual screening 170 U/L 84-246 [facility] Work Phone: Urine creatinine measurement (mass/volume)on 01-17-2022 Creatinine (U) [Mass/Vol] 284.00 mg/dL NO RANGE EST. [facility] Work Phone: Urine protein measurement (m ass/volume)on 01-17-2022 Protein (U) [Mass/Vol] 67.9 mg/dL 0.0-11.8 [facility] Work Phone: Urine protein/creatinine mas s ratioon 01-17-2022 Protein/Creatinine (U) [Mass ratio] 239 mg/g CRE 0-200 [facility] Work Phone: Quantitative serum or plasma 3 hour gestational glucose tolerance panelon 12-02-2021 Glucose tolerance 3 hours gestational panel See comment [facility] Work Phone: Comment on above: FASTING 93 [...] Auto (Unsp spec) [#/Vol] 1.13 10*3/uL 0.83-4.51 [facility] Work Phone: Basophil percentageon 2021 Basophils/100 WBC (Bld) 0.2 % 0-1 [facility] Work Phone: Eosinophils/100 WBC (Bld) 0.9 % 0-5 [facility] Work Phone: Neutrophils (Bld) [#/Vol] 4.2 10*3/uL 2.0-7.7 [facility] Work Phone: Neutrophils/100 WBC (Bld) 72.7 % 47-70 [facility] Work Phone: WBC (Bld) [#/Vol] 5.7 10*3/uL 4.4-11.0 [facility] Work Phone: Blood erythrocytes count (nu mber/volume)on 11-28-2021 RBC (Bld) [#/Vol] 4.16 10*6/uL 4.2-5.4 [facility] Work Phone: Blood hemoglobin measurement (mass/volume)on 11-28-2021 Hemoglobin (Bld) [Mass/Vol] 10.6 g/dL 12.0-15.0 [facility] Work Phone: Blood lymphocytes/100 leukoc yteson 11-28-2021 Lymphocytes/100 WBC (Bld) 19.7 % 19-41 [facility] Work Phone: Blood monocytes/100 leukocyt eson 11-28-2021 Monocytes/100 WBC (Bld) 6.3 % 0-10 [facility] Work Phone: Blood platelet mean volumeon 11-28-2021 Platelet mean volume (Bld) [Entitic vol] 12.0 fL 6.2-12.0 [facility] Work Phone: Determination of erythrocyte mean corpuscular volume (MCV)on 11-28-2021 MCV (RBC) [Entitic vol] 80.8 fL 81-99 [facility] Work Phone: Gestational diabetes screen 1-hour screen with 50g oral glucose loadon 11-28-2021 Glucose 1 Hr post 50 g glucose PO [Mass/Vol] 140 mg/dL 70-140 [facility] Work Phone: Hematocrit Auto (Bld) [Volum e fraction]on 11-28-2021 Hematocrit (Bld) [Volume fraction] 33.6 % 37-47 [facility] Work Phone: Laboratory - Hematology and Cell countson 11-28-2021 Erythrocyte distribution width (RBC) [Entitic vol] 41.0 fL 35.1-43.9 [facility] Work Phone: Erythrocyte distribution width (RBC) [Ratio] 14.1 % 11.6-14.6 [facility] Work Phone: Immature granulocytes/100 WBC (Bld) 0.200 % 0.0-0.9 [facility] Work Phone: Comment on above: IG% - Immature Granu locytes (promyelocytes, myelocytes and metamyelocytes) > 1% indicates that a LEFT SHIFT is Present. MCH (RBC) [Entitic mass] 25.5 pg 27.0-32.0 [facility] Work Phone: Nucleated RBC/100 WBC (Bld) [Ratio] 0 % 0-5 [facility] Work Phone: MCHC Auto (RBC) [Mass/Vol]on 11-28-2021 MCHC (RBC) [Mass/Vol] 31.5 g/dL 32-[address] [facility] Work Phone: [phone] Platelets bldon 11-28-2021 Platelets (Bld) [#/Vol] 214 10*3/uL 150-450 [facility] Work Phone: Bilirubin Test strip Ql (U)o n 11-26-2021 Bilirubin Ql (U) Negative Negative [facility] Work Phone: Ketones Test strip Ql (U)on 11-26-2021 Ketones Ql (U) 150 mg/dl Negative [facility] Work Phone: Comment on above: CRITICAL VALUE VERIF IED. CALLED TO KALI BATRES RN (WP)11/26/21 1836 Gagandeep Alcantar.RESULTS READ BACK BY SAME . CRITICAL VALUE *H Nitrite Test strip Ql (U)on 11-26-2021 Nitrite Ql (U) Negative Negative [facility] Work Phone: Protein Test strip Ql (U)on 11-26-2021 Protein Ql (U) 15 mg/dl Negative [facility] Work Phone: Urine blood detectionon RBC Ql (U) 50 /ul Negative [facility] Work Phone: Urine clarityon 11-26-2021 Clarity (U) Cloudy Clear [facility] Work Phone: Urine color determinationon 11-26-2021 Color (U) Yellow Yellow [facility] Work Phone: Urine glucose detectionon Glucose Ql (U) Normal mg/dl Normal [facility] Work Phone: Urine leukocyte esterase det ection by dipstickon 11-26-2021 Leukocyte esterase Test strip Ql (U) 500 /ul Negative [facility] Work Phone: Urine pHon 11-26-2021 pH (U) 6.5 [pH] 5.0 - 8.0 [facility] Work Phone: Urine specific gravity measu rementon 11-26-2021 Specific gravity (U) [Rel density] 1.015 1.002-1.030 [facility] Work Phone: Urobilinogen Auto test strip Ql (U)on 11-26-2021 Urobilinogen Ql (U) 1 mg/dl Normal [facility] Work Phone: Gestational diabetes screen 1-hour screen with 50g oral glucose loadon 09-13-2021 Glucose 1 Hr post 50 g glucose PO [Mass/Vol] 102 mg/dL 70-140 [facility] Work Phone: Absolute lymphocyte counton 08-23-2021 Lymphocytes Auto (Unsp spec) [#/Vol] 1.47 10*3/uL 0.83-4.51 [facility] Work Phone: Basophil percentageon 2021 Basophils/100 WBC (Bld) 0.2 % 0-1 [facility] Work Phone: Eosinophils/100 WBC (Bld) 0.9 % 0-5 [facility] Work Phone: Neutrophils (Bld) [#/Vol] 4.4 10*3/uL 2.0-7.7 [facility] Work Phone: Neutrophils/100 WBC (Bld) 69.4 % 47-70 [facility] Work Phone: WBC (Bld) [#/Vol] 6.3 10*3/uL 4.4-11.0 [facility] Work Phone: Blood erythrocytes count (nu mber/volume)on 08-23-2021 RBC (Bld) [#/Vol] 4.81 10*6/uL 4.2-5.4 [facility]: Blood hemoglobin measurement (mass/volume)on 08-23-2021 Hemoglobin (Bld) [Mass/Vol] 12.7 g/dL 12.0-15.0 [facility] Work Phone: Blood lymphocytes/100 leukoc yteson 08-23-2021 Lymphocytes/100 WBC (Bld) 23.2 % 19-41 [facility] Work Phone: Blood monocytes/100 leukocyt eson 08-23-2021 Monocytes/100 WBC (Bld) 5.8 % 0-10 [facility] Work Phone: Blood platelet mean volumeon 08-23-2021 Platelet mean volume (Bld) [Entitic vol] 12.5 fL 6.2-12.0 [facility] Work Phone: Chlamydia trachomatis rRNA d etection by probe and target amplification methodon 08-23-2021 C. trachomatis rRNA LIANA+probe Ql (Unsp spec) Negative Negative [facility] Work Phone: [phone] Determination of erythrocyte mean corpuscular volume (MCV)on 08-23-2021 MCV (RBC) [Entitic vol] 81.5 fL 81-99 [facility] Work Phone: HIV 1 and HIV-2 antibody ass ay with HIV-1 p24 antigen detectionon 08-23-2021 HIV 1+2 Ab+HIV1 p24 Ag IA Ql Non-Reactive Nonreactive [facility] Work Phone: Hematocrit Auto (Bld) [Volum e fraction]on 08-23-2021 Hematocrit (Bld) [Volume fraction] 39.2 % 37-47 [facility] Work Phone: Laboratory - Hematology and Cell countson 08-23-2021 Erythrocyte distribution width (RBC) [Entitic vol] 39.9 fL 35.1-43.9 [facility] Work Phone: Erythrocyte distribution width (RBC) [Ratio] 13.7 % 11.6-14.6 [facility] Work Phone: Immature granulocytes/100 WBC (Bld) 0.500 % 0.0-0.9 [facility] Work Phone: Comment on above: IG% - Immature Granu locytes (promyelocytes, myelocytes and metamyelocytes) > 1% indicates that a LEFT SHIFT is Present. MCH (RBC) [Entitic mass] 26.4 pg 27.0-32.0 [facility] Work Phone: Nucleated RBC/100 WBC (Bld) [Ratio] 0 % 0-5 [facility] Work Phone: Laboratory - Microbiology an d Antimicrobial susceptibilityon 08-23-2021 N. gonorrhoeae DNA LIANA+probe Ql (Unsp spec) Negative Negative [facility] Work Phone: Comment on above: Performed at: =[employer] [id number] Director: Theresa Gomez MD, Phone: [phone] MCHC Auto (RBC) [Mass/Vol]on 08-23-2021 MCHC (RBC) [Mass/Vol] 32.4 g/dL 32-36 [facility] Work Phone: No Panel Informationon 08-23 Hepatitis B Surface Antigen Non-Reactive Nonreactive [facility] Work Phone: Hepatitis C Antibody Non-Reactive Nonreactive [facility] Work Phone: Comment on above: Non Reactive: < 0.8 Equivocal: >/= 0.8 to < 1.0 Reactive: >/= 1.0The [facility] recommends that a reactive/equivocal HCV antibody result be followed up by the HCV Nucleic Acid Amplificationtest (120626) Miscellaneous Test See comment [facility] Work Phone: Comment on above: Sent directly to [facility] per ordering physician. Rubella IgG Antibody Reactive Nonreactive [facility] Work Phone: Comment on above: Antibody Results Int erpretation of Immune Status Non Reactive Presumed Non-Immune Equivocal Equivocal Reactive Presumed Immune Platelets bldon 08-23-2021 Platelets (Bld) [#/Vol] 247 10*3/uL 150-450 [facility] Work Phone: Serum Treponema species anti body detectionon 08-23-2021 Treponema sp Ab Ql (S) Non-Reactive [facility] Work Phone: Serum or plasma choriogonado tropin detectionon 07-02-2021 HCG ( test) Ql 79 mIU/mL <4 [facility] Work Phone: Comment on above: hCG levels with Gest ational AgeGestational Age hCG mIU/mL (IU/L)0.2 - 1 week 5 - 501-2 weeks 50 - 5002-3 weeks 100 - 21547-1 weeks 500 - 025391-8 weeks 1000 - 042235-6 weeks 73580 - 100,0006-8 weeks 66361 - 200,0002-3 months 97962 - 100,000 Serum or plasma choriogonado tropin detectionon 06-30-2021 HCG ( test) Ql 33 mIU/mL <4 [facility] Work Phone: Comment on above: hCG levels with Gest ational AgeGestational Age hCG mIU/mL (IU/L)0.2 - 1 week 5 - 501-2 weeks 50 - 5002-3 weeks 100 - 14786-0 weeks 500 - 338026-6 weeks 1000 - 560689-9 weeks 88690 - 100,0006-8 weeks 07765 - 200,0002-3 months 54919 - 100,000 Serum or plasma progesterone measurement (mass/volume)on 06-28-2021 Progesterone [Mass/Vol] 17.58 ng/mL See Comment [facility] Work Phone: Comment on above: Progesterone Referen ce Table: UNITS Female: Follicular 0.15 - 1.40 ng/mL Luteal 3.34 - 25.56 ng/mL Mid-luteal 4.44 - 28.03 ng/mL Postmenopausal 0.0 - 0.73 ng/mL : 1st Trimester 11.22 - 90.00 ng/mL 2nd Trimester 25.55 - 89.40 ng/mL 3rd Trimester 48.40 -422.50 ng/mL Serum or plasma progesterone measurement (mass/volume)on 05-30-2021 Progesterone [Mass/Vol] 11.73 ng/mL See Comment [facility] Work Phone: Comment on above: Progesterone Referen ce Table: UNITS Female: Follicular 0.15 - 1.40 ng/mL Luteal 3.34 - 25.56 ng/mL Mid-luteal 4.44 - 28.03 ng/mL Postmenopausal 0.0 - 0.73 ng/mL : 1st Trimester 11.22 - 90.00 ng/mL 2nd Trimester 25.55 - 89.40 ng/mL 3rd Trimester 48.40 -422.50 ng/mL Absolute lymphocyte counton 02-22-2021 Lymphocytes Auto (Unsp spec) [#/Vol] 1.70 10*3/uL 0.83-4.51 [facility] Work Phone: Basophil percentageon 2021 Basophils/100 WBC (Bld) 0.6 % 0-1 [facility] Work Phone: Chloride [Moles/Vol] 101 mmol/L 98-107 [facility] Work Phone: Eosinophils/100 WBC (Bld) 2.4 % 0-5 [facility] Work Phone: Glucose [Mass/Vol] 95 mg/dL 74-106 [facility] Work Phone: Comment on above: Please note revised GLUCOSE reference range effective 2017. Neutrophils (Bld) [#/Vol] 4.3 10*3/uL 2.0-7.7 [facility] Work Phone: Neutrophils/100 WBC (Bld) 65.0 % 47-70 [facility] Work Phone: Potassium [Moles/Vol] 3.8 mmol/L 3.5-5.[address] [facility] Work Phone: Sodium [Moles/Vol] 140 mmol/L 136-145 [facility] Work Phone: WBC (Bld) [#/Vol] 6.6 10*3/uL 4.4-11.0 [facility] Work Phone: Blood erythrocytes count (nu mber/volume)on 02-22-2021 RBC (Bld) [#/Vol] 5.59 10*6/uL 4.2-5.4 [facility] Work Phone: Blood hemoglobin measurement (mass/volume)on 02-22-2021 Hemoglobin (Bld) [Mass/Vol] 13.9 g/dL 12.0-15.0 [facility] Work Phone: Blood lymphocytes/100 leukoc yteson 02-22-2021 Lymphocytes/100 WBC (Bld) 25.8 % 19-41 [facility] Work Phone: Blood monocytes/100 leukocyt eson 02-22-2021 Monocytes/100 WBC (Bld) 5.9 % 0-10 [facility] Work Phone: Blood platelet mean volumeon 02-22-2021 Platelet mean volume (Bld) [Entitic vol] 12.1 fL 6.2-12.0 [facility] Work Phone: Determination of erythrocyte mean corpuscular volume (MCV)on 02-22-2021 MCV (RBC) [Entitic vol] 79.8 fL 81-99 [facility] Work Phone: Hematocrit Auto (Bld) [Volum e fraction]on 02-22-2021 Hematocrit (Bld) [Volume fraction] 44.6 % 37-47 [facility] Work Phone: Laboratory - Chemistry and C hemistry - challengeon 02-22-2021 CO2 [Moles/Vol] 30.0 mmol/L 21.0-32.0 [facility] Work Phone: Urea nitrogen/Creatinine [Mass ratio] 14.3 mg/mg 10-20 [facility] Work Phone: Laboratory - Hematology and Cell countson 02-22-2021 Erythrocyte distribution width (RBC) [Entitic vol] 40.1 fL 35.1-43.9 [facility] Work Phone: Erythrocyte distribution width (RBC) [Ratio] 13.9 % 11.6-14.6 [facility] Work Phone: Immature granulocytes/100 WBC (Bld) 0.300 % 0.0-0.9 [facility] Work Phone: Comment on above: IG% - Immature Granu locytes (promyelocytes, myelocytes and metamyelocytes) > 1% indicates that a LEFT SHIFT is Present. MCH (RBC) [Entitic mass] 24.9 pg 27.0-32.0 [facility] Work Phone: Nucleated RBC/100 WBC (Bld) [Ratio] 0 % 0-5 [facility] Work Phone: Laboratory - Microbiology an d Antimicrobial susceptibilityon 02-22-2021 SARS-CoV-2 (COVID-19) RNA LIANA+probe Ql (Unsp spec) Not detected Not Detect [facility] Work Phone: Comment on above: Normal Reference Ran ge: Not DetectedMethod:(RT-PCR) real-time reverse transcriptase PCRLuminex WILLIAM Instrument*The Food and Drug Administration (FDA) has issued an Emergency Use Authorization (EAU) for the WILLIAM SARS-CoV-2 Assay for the rapid detection of the virus that causes COVID-19. This test has been validated, but the [facility] independent review of this validation is pending.*Negative [...] 02-22-2021 MCHC (RBC) [Mass/Vol] 31.2 g/dL 32-[address] [facility] Work Phone: No Panel Informationon 02-22 D-Dimer Quantitative (PE/DVT) < 0.27 FEU/ug/m 0.27-0.49 [facility] Work Phone: Comment on above: NORMAL D-Dimer level (<0.50) indicates no DVT or PE. Estimated Creatinine Clearance Calc 111.44 ml/min [facility] Work Phone: Estimated GFR (MDRD) Amer 120 mL/min >60 [facility] Work Phone: Comment on above: GFR Calc Estimated GFR (MDRD) Non-Af Amer 100 mL/min >60 [facility] Work Phone: Comment on above: Non- GFR Calc Troponin I High Sensitivity 6 pg/mL 3.0-54.0 [facility] Work Phone: Comment on above: Please Note: New Dionne t Units and Gender Specific Reference Ranges. For more information see Policy Stat Procedure [place] High Sensitivity Troponin (TNIH) and attachments. Influenza Types A,B Direct FA (ARLYN) [facility] Work Phone: Platelets bldon 02-22-2021 Platelets (Bld) [#/Vol] 269 10*3/uL 150-450 [facility] Work Phone: Serum or plasma calcium benita urement (mass/volume)on 02-22-2021 Calcium [Mass/Vol] 9.8 mg/dL 8.5-10.1 [facility] [facility] Work Phone: Serum or plasma creatinine m easurement (mass/volume)on 02-22-2021 Creatinine [Mass/Vol] 0.77 mg/dL 0.55-1.[address] [facility] Work Phone: Comment on above: The validity of the calculated GFR & GFRAA in patients over 70 years has not been determined. Clinical correlation is essential. Serum or plasma urea nitroge n measurement (mass/volume)on 02-22-2021 Urea nitrogen [Mass/Vol] 11 mg/dL 7-18 [facility] Work Phone: Thin prep Papanicolaou smear with manual screeningon 02-22-2021 Thin prep Papanicolaou smear with manual screening 9 5-15 [facility] Work Phone: Inpatient Clinical Summaryon 12-25-2018 [place] [address] [address] Clinical Summary Person Information Name: Juanita Murillo Age: 18 Years : 2000 Sex: Female PCP: Sara Walters CNP Marital Status: Phone: PCP: [phone] Race: White Ethnicity: Not or Language: Sami Visit Id: Visit Reason: IUP Speciality: Acuity: PP Vag Enc Type: Inpatient Med Service: Gynecology-Obstetrics Arrival: 12/23/2018 06:51:16 Discharge: Dispo Type: Address: [address] [place] [address] Diagnosis: ; Premature rupture of membranes Discharged [...] range between ( 28.0 and 42.0 ) [place] Auto: 7.8 % -- Normal range between [...] range between ( 36.0 and 46.0 ) [place] Absolute: 0.7 x10 MCH: 24.6 pg -- [...] Medications [address] [place], [place] [id number], [phone] ibuprofen (ibuprofen 800 mg oral tablet) 800 [...] Physician: Referring Physician: Follow up: With: Address: [facility]: [address] [phone] Comments: within 4-6 weeks Normal [place] CBC w/ Diffon 12-24-2018 Erythrocyte distribution width (RBC) [Ratio] 15.5 % High 11.6-14.8 [place] Comment on above: Performed By: #### C BC #### [address] [address] Hematocrit (Bld) [Volume fraction] 28.5 % Low 36.0-46.0 [place] Comment on above: Performed By: #### C BC #### [address] [address] Hemoglobin (Bld) [Mass/Vol] 9.3 g/dL Low 12.0-16.0 [place] Comment on above: Performed By: #### C BC #### [address] [address] MCH (RBC) [Entitic mass] 24.6 pg Low 27.0-35.0 [place] Comment on above: Performed By: #### C BC #### [address] [address] MCHC (RBC) [Mass/Vol] 32.7 % Normal 31.0-37.0 [facility] Comment on above: Performed By: #### C BC #### [address] [address] MCV (RBC) [Entitic vol] 75.1 fL Low 80.0-100.0 [facility] Comment on above: Performed By: #### C BC #### [address] [address] Platelet mean volume (Bld) [Entitic vol] 10.8 fL High 6.7-10.6 [place] Comment on above: Performed By: #### C BC #### [address] [address] Platelets (Bld) [#/Vol] 180 x10*3/mcL Normal 150-350 [place] Comment on above: Performed By: #### C BC #### [address] [address] RBC (Bld) [#/Vol] 3.79 x10*6/mcL Low 3.80-5.20 [facility] Comment on above: Performed By: #### C BC #### [address] [address] WBC (Bld) [#/Vol] 9.1 x10*3/mcL Normal 4.5-11.0 [facility] Comment on above: Performed By: #### C BC #### [address] [address] Diff Autoon 12-24-2018 Baso Absolute 0.0 x10*3/mcL Normal 0.0-0.2 [facility] Comment on above: Performed By: #### . Automated Diff #### [address] [address] Basophils/100 WBC (Bld) 0.3 % Normal 0.0-1.5 [facility] Comment on above: Performed By: #### . Automated Diff #### [address] [address] Eos Absolute 0.0 x10*3/mcL Normal 0.0-0.4 [place] Comment on above: Performed By: #### . Automated Diff #### [address] [address] Eosinophils/100 WBC (Bld) 0.2 % Normal 0.0-5.4 [place] Comment on above: Performed By: #### . Automated Diff #### [address] [address] Lymphocytes (Bld) [#/Vol] 1.7 x10*3/mcL Normal 1.2-5.2 [place] Comment on above: Performed By: #### . Automated Diff #### [address] [address] Lymphocytes/100 WBC (Bld) 18.3 % Low 28.0-42.0 [place] Comment on above: Performed By: #### . Automated Diff #### [address] [address] [place] Absolute 0.7 x10*3/mcL Normal 0.1-1.1 [facility] Comment on above: Performed By: #### . Automated Diff #### [address] [address] Monocytes/100 WBC (Bld) 7.8 % Normal 3.7-11.9 [facility] Comment on above: Performed By: #### . Automated Diff #### [address] [address] Neutro Absolute 6.7 x10*3/mcL Normal 1.8-8.[address] [facility] Comment on above: Performed By: #### . Automated Diff #### [address] [address] Neutro Auto 73.4 % High 45.6-68.4 [place] Comment on above: Performed By: #### . Automated Diff #### [address] [address] Obstetrics Progress Noteon 1 02-23-2018 Obstetrics Progress [...] Charted Temp Oral 36.5 degC (DEC 24 06:) Resp Rate 19 br/min (DEC 24:30) SBP 126 mmHg (DEC 24:) DBP L 59mmHg (DEC 24:) SpO2 93 % (DEC 23 16:00) CBC [...] Routine supportive care. Electronically signed by ___ Nai Marcos CNM 12/24/18 09:32 EST Normal [place] CBC w/ Diffon 12-23-2018 Erythrocyte distribution width (RBC) [Ratio] 15.5 % High 11.6-14.8 [place] Comment on above: Performed By: #### C BC #### [address] [address] Hematocrit (Bld) [Volume fraction] 32.2 % Low 36.0-46.0 [place] Comment on above: Performed By: #### C BC #### [address] [address] Hemoglobin (Bld) [Mass/Vol] 10.7 g/dL Low 12.0-16.0 [place] Comment on above: Performed By: #### C BC #### [address] [address] MCH (RBC) [Entitic mass] 24.3 pg Low 27.0-35.0 [place] Comment on above: Performed By: #### C BC #### [address] [address] MCHC (RBC) [Mass/Vol] 33.1 % Normal 31.0-37.0 [facility] Comment on above: Performed By: #### C BC #### [address] [address] MCV (RBC) [Entitic vol] 73.5 fL Low 80.0-100.0 [facility] Comment on above: Performed By: #### C BC #### [address] [address] Platelet mean volume (Bld) [Entitic vol] 10.4 fL Normal 6.7-10.6 [place] Comment on above: Performed By: #### C BC #### [address] [address] Platelets (Bld) [#/Vol] 196 x10*3/mcL Normal 150-350 [place] Comment on above: Performed By: #### C BC #### [address] [address] RBC (Bld) [#/Vol] 4.38 x10*6/mcL Normal 3.80-5.20 [facility] Comment on above: Performed By: #### C BC #### [address] [address] WBC (Bld) [#/Vol] 6.8 x10*3/mcL Normal 4.5-11.0 [facility] Comment on above: Performed By: #### C BC #### [address] [place] [address] Diff Autoon 12-23-2018 Baso Absolute 0.0 x10*3/mcL Normal 0.0-0.2 [facility] Comment on above: Performed By: #### . Automated Diff #### [address] [address] Basophils/100 WBC (Bld) 0.4 % Normal 0.0-1.5 [facility] Comment on above: Performed By: #### . Automated Diff #### [address] [address] Eos Absolute 0.1 x10*3/mcL Normal 0.0-0.4 [place] Comment on above: Performed By: #### . Automated Diff #### [address] [address] Eosinophils/100 WBC (Bld) 1.4 % Normal 0.0-5.4 [place] Comment on above: Performed By: #### . Automated Diff #### [address] [address] Lymphocytes (Bld) [#/Vol] 1.4 x10*3/mcL Normal 1.2-5.2 [place] Comment on above: Performed By: #### . Automated Diff #### [address] [address] Lymphocytes/100 WBC (Bld) 20.1 % Low 28.0-42.0 [place] Comment on above: Performed By: #### . Automated Diff #### [address] [address] [place] Absolute 0.5 x10*3/mcL Normal 0.1-1.1 [facility] Comment on above: Performed By: #### . Automated Diff #### [address] [address] Monocytes/100 WBC (Bld) 7.4 % Normal 3.7-11.9 [facility] Comment on above: Performed By: #### . Automated Diff #### [address] [place] [address] Neutro Absolute 4.8 x10*3/mcL Normal 1.8-8.[address] [facility] Comment on above: Performed By: #### . Automated Diff #### [address] [address] Neutro Auto 70.7 % High 45.6-68.4 [place] Comment on above: Performed By: #### . Automated Diff #### [address] [address] History and Physicalon 12-23 History and Physical Patient: Alyhsa Murillo Age: 18 years Sex: Female : [...] / AZEGxwEmLzUcjdGfwKgAAg / Confirmed Hay fever / [id number] / Confirmed Depression / [id number] / Confirmed Excessive growth of facial hair / 111980941 / Confirmed Polycystic ovary syndrome / [id number] / Confirmed / [id number] / Confirmed Histories History History (0,0,0,0) No [...] % HI Lymph Auto 20.1 % LOW [place] Auto 7.4 % Eos Auto 1.4 % Basophil Auto 0.4 % Neutro Absolute 4.8 x10 Lymph Absolute 1.4 x10 [place] Absolute 0.5 x10 E[place] Absolute 0.1 x10 [...] 1.016 UA pH 6.0 Procedure history: Tonsillectomy ([id number]). Lazy Eye Repair. Comments: 12/31/2015 13:17 EST - Edilma Moreira Left foot surgery. Comments: 05/02/2017 13:03 EDT - Lindsey Lopez right foot-remove a piece glass REVISION OF NOSE ([id number]). Comments: 05/02/2017 13:21 Lindsey Gupta deviated septum repair Physical Examination VS/Measurements Vital [...] Normal range of motion. Integumentary: Warm, Dry, [place]. Neurologic: Alert, Oriented. Psychiatric: Cooperative, Appropriate mood & affect. Impression and Plan Diagnosis (GRM49-HJ Z33.1, Discharge, Medical). Premature rupture of membranes (BYM16-RG O42, Discharge, Medical). condition: Reassuring heart rate. Maternal condition: Stable. Plan Admit. Diagnosis (NKQ75-TE Z33.1, Discharge, Medical). Premature rupture of membranes (ZUE60-DL O42, Discharge, Medical). Course: Progressing as expected. Education and Follow-up: Counseled: Patient, Family. Discharge Planning: Plan to discharge ( To home, In 2 days ). 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 (SNOMED CT: 2883610176, Onset: --) ADHD (SNOMED CT: AZEGxwEmLzUcjdGfwKgAAg, Onset: --) Polycystic ovary syndrome (SNOMED CT: [id number] -[id number], Onset: --) Depression (SNOMED CT: 630351781, Onset: --) Excessive growth of facial hair (SNOMED CT: 426594339, Onset: --) Premature rupture of membranes (SNOMED CT: AZEGxwEmLzUcjSUGwKgAAg, Onset: --) Delivery Summary A Membrane Status Information ROM Type: Spontaneous rupture of membranes Amniotic Fluid Color/Description: Thin meconium Labor Information 2nd Stage Onset Date/Time: 12/23/18 16:34:00 Monitoring FHR Monitoring Method: scalp electrode . Vaginal delivery procedure Performed by: cleat feeder. Indication for delivery: labor progression augmented. Informed consent obtained: for anesthesia, for procedure. Anesthesia method: epidural. Medication prior to procedure: as documented on medication administration record. Monitoring during procedure: blood pressure monitoring, monitor, pulse oximetry. Sterile preparation of site: in usual fashion. Position: birthing bed. Rupture of membranes: moderate amount of fluid, appearance of fluid clear, spontaneous. Delivery of : uneventful. Status of infant Viable Gender: male. Cord blood: blood gases obtained. Umbilical cord: three vessels. Personnel present at resuscitation: Clinical Researcher. Placenta: delivery spontaneous, intact. Uterus: hemostasis. Procedure tolerated: well. Complications Maternal: no complications. Narvaez/ Baby A: respiratory distress. Impression and Plan Vaginal Delivery: condition: Stable. Maternal condition: Stable. Diagnosis (UZU24-AF Z33.1, Discharge, Medical). Premature rupture of membranes (ZVQ90-LA O42, Discharge, Medical). Course: Progressing as expected. Electronically signed by ___ Libertad Benjamin DO 12/23/18 17:40 EST Normal [place] Surgical Pathology Reporton 12-23-2018 Surgical Pathology Report [...] trimester placenta (529 grams), with moderate calcifications. [id number] Garcia MD PhD (Electronically signed by) Verified: 12/25/18 15:28 [facility] Comment on above: Performed By: #### . Automated Diff #### [place] [address] UDS OB/Con 12-23-2018 Creatinine [Mass/Vol] 388.4 mg/dL Normal [facility] Comment on above: Performed By: #### C [id number] #### [address] [address] Ur Amph Scrn w/Conf Negative Normal NEG = <1000 [facility] Comment on above: Performed By: #### C [id number] #### [address] [address] Ur Shauna Scrn w/Conf Negative Normal NEG = <200 [facility] Comment on above: Performed By: #### C [id number] #### [address] [address] Ur Benzodia Scrn w/Conf Negative Normal NEG = <200 [facility] Comment on above: Performed By: #### C [id number] #### [address] [address] Ur Cannab Scrn w/Conf Negative Normal NEG = <50 [facility] Comment on above: Performed By: #### C [id number] #### [address] [address] Ur Cocaine Scrn w/Conf Negative Normal NEG = <300 [facility] Comment on above: Performed By: #### C [id number] #### [address] [address] Ur Methadone Scrn w/Conf Negative Normal NEG = <300 [place] Comment on above: Performed By: #### C [id number] #### [address] [address] Ur Opiate Scrn w/Conf Negative Normal NEG = <300 [facility] Comment on above: Performed By: #### C [id number] #### [address] [address] Ur Oxy Screen w/Conf Negative Normal NEG = <100 [facility] Comment on above: Performed By: #### C [id number] #### [address] [address] Ur Oxy Scrn Qnt w/Confirm 25 ng/mL Normal <=99 [place] Comment on above: Performed By: #### C [id number] #### [address] [address] Ur PCP Scrn w/Conf Negative Normal NEG = <[address] [facility] Comment on above: Performed By: #### C [id number] #### [address] [address] Fire Prevention Inspector VIRGINIE QC OK Yes Normal [facility] Comment on above: Performed By: #### C [id number] #### [address] [address] Ur Buprenorphine Scrn w/Conf Negative Normal NEG = <10 [place] Comment on above: Performed By: #### C [id number] #### [address] [address] UA pH 6.0 Normal 4.5 - 7.8 [place] Comment on above: Performed By: #### C [id number] #### [address] [address] UA Spec Grav 1.016 Normal 1.003-1.035 [place] Comment on above: Performed By: #### C D:[id number] #### [address] [address] Grp B PCRon 12-22-2018 Allergic to Penicillin? Unknown Normal [facility] Comment on above: Result Comment: For antibiotic sensitivity, please contact the Laboratory to request anti-microbial susceptibility testing within 7 days of specimen collection. Performed By: #### C D:[id number] #### [address] [address] Group B Strep PCR Negative Normal Negative [facility] Comment on above: Result Comment: No G roup B Strep nucleic acid detected. The William GBS Assay is an automated nucleic acid [...] clindamycin is noted. Performed By: #### C [id number] #### [place] [address] Otheron 07-12-2018 Interpretation and review of laboratory results Abnormal [facility] URINALYSIS, MACROon 07-13-19 19 Bilirubin Ql (U) SMALL Abnormal NEGATIVE [facility] Clarity (U) CLEAR CLEAR [facility] Color (U) YELLOW YELLOW [facility] Glucose Test strip (U) [Mass/Vol] Negative NEGATIVE mg/dl [facility] Hemoglobin Ql (U) Negative NEGATIVE [facility] Ketones (U) [Mass/Vol] 15 mg/dl Abnormal NEGATIVE [facility] Leukocyte esterase Test strip Ql (U) SMALL Abnormal NEGATIVE [facility] Nitrite Ql (U) Negative NEGATIVE [facility] pH (U) 6.0 [pH] [facility] Protein Ql (U) 30 mg/dl Abnormal NEGATIVE [facility] Specific gravity (U) [Rel density] 1.020 [facility] Urobilinogen (U) [Mass/Vol] 0.2 mg/dl 0.2 - 1 mg/dl [facility] URINE MACROSCOPICon 07-13-19 19 Bilirubin Ql (U) SMALL Abnormal NEGATIVE [facility] Clarity Nom (U) CLEAR Normal CLEAR [facility] Color Nom (U) YELLOW Normal YELLOW [facility] Glucose Ql (U) Negative Normal NEGATIVE [facility] pH (U) 6.0 [pH] Normal 5.0-7.0 [facility] Protein mass conc (U) 30 mg/dL Abnormal NEGATIVE [facility] URINE HEMOGLOBIN Negative Normal NEGATIVE [facility] URINE KETONE 15 mg/dl Abnormal NEGATIVE [facility] URINE LEUKOTEST SMALL Abnormal NEGATIVE [facility] URINE NITRATES Negative Normal NEGATIVE [facility] URINE SPEC GRAVITY 1.020 Normal 1.010-1.025 [facility] Urobilinogen Qn (U) 0.2 mg/dl Normal 0.2-1.0 [facility] URINE MICROSCOPICon 07-13-19 19 Bacteria LM.HPF #/area (Urine sed) 1+ Abnormal NEGATIVE [facility] Casts LM.LPF #/area (Urine sed) NONE Normal NONE [facility] CRYSTAL NONE Normal NONE [facility] Epithelial cells LM.HPF #/area (Urine sed) TOO NUMEROUS TO COUNT Normal [facility] Mucus Ql (Urine sed) Negative Normal NEGATIVE [facility] RBC #/vol (U) Negative Normal NEGATIVE [facility] URINE COMMENT POSSIBLY CONTAMINATE D SPECIMEN, CULTURE MUST BE ORDERED SEPARATELY IF DEEMED NECESSARY. Normal [facility] WBC #/vol (U) '5 TO 10 Normal NEGATIVE [facility] Bacteria LM.HPF (Urine sed) [#/Area] 1+ Abnormal NEGATIVE [facility] Casts LM.LPF (Urine sed) [#/Area] NONE NONE /LPF [facility] Crystals LM Nom (Urine sed) NONE NONE [facility] Epithelial cells LM Ql (Urine sed) TOO NUMEROUS TO COUNT /HPF [facility] Mucus Ql (Urine sed) Negative NEGATIVE [facility] RBC LM.HPF (Urine sed) [#/Area] Negative NEGATIVE /HPF [facility] Urine sediment comments LM [place] (Urine sed) POSSIBLY CONTAMINATED SPECIMEN, CULTURE MUST BE ORDERED SEPARATELY IF DEEMED NECESSARY. [facility] WBC LM.HPF (Urine sed) [#/Area] '5 TO 10 NEGATIVE /HPF [facility] CHLAM/GC AMPLIFon 09-25-2017 CHLAMYDIA NUC. AMP Positive Abnormal Negative [facility] GONOCOCCUS NUC. AMP Negative Normal Negative [facility] Comment on above: Result Comment: [facility] HCG QUALon 09-20-2017 HCG.beta subunit ( test) Ql (U) Negative Normal [facility] Comment on above: Performed By: #### U HCGT #### Testing performed at [address] [address] URINE MACROSCOPICon 09-21-19 18 Bilirubin Ql (U) Negative Normal NEGATIVE [facility] Comment on above: Performed By: #### U HCGT #### Testing performed at [address] [address] Clarity Nom (U) CLOUDY Abnormal CLEAR [facility] Comment on above: Performed By: #### U HCGT #### Testing performed at [address] [address] Color Nom (U) YELLOW Normal YELLOW [facility] Comment on above: Performed By: #### U HCGT #### Testing performed at [address] [address] Glucose Ql (U) Negative Normal NEGATIVE [facility] Comment on above: Performed By: #### U HCGT #### Testing performed at [address] [address] pH (U) 6.0 [pH] Normal 5.0-7.0 [facility] Comment on above: Performed By: #### U HCGT #### Testing performed at [address] [address] Protein mass conc (U) 30 mg/dL Abnormal NEGATIVE [facility] Comment on above: Performed By: #### U HCGT #### Testing performed at [address] [address] URINE HEMOGLOBIN TRACE-LYSED Abnormal NEGATIVE [facility] Comment on above: Performed By: #### U HCGT #### Testing performed at [address] [address] URINE KETONE Negative Normal NEGATIVE [facility] Comment on above: Performed By: #### U HCGT #### Testing performed at [address] [address] URINE LEUKOTEST LARGE Abnormal NEGATIVE [facility] Comment on above: Performed By: #### U HCGT #### Testing performed at [address] [address] URINE NITRATES Negative Normal NEGATIVE [facility] Comment on above: Performed By: #### U HCGT #### Testing performed at [address] [address] URINE SPEC GRAVITY 1.025 Normal 1.010-1.025 [facility] Comment on above: Performed By: #### U HCGT #### Testing performed at [address] [address] Urobilinogen Qn (U) 0.2 mg/dl Normal 0.2-1.0 [facility] Comment on above: Performed By: #### U HCGT #### Testing performed at [address] [address] URINE MICROSCOPICon 09-21-19 18 Bacteria LM.HPF #/area (Urine sed) 2+ Abnormal NEGATIVE [facility] Comment on above: Performed By: #### U HCGT ####Testing performed at [address] [address] Casts LM.LPF #/area (Urine sed) NONE Normal [facility] Comment on above: Performed By: #### U HCGT ####Testing performed at [address] [address] CRYSTAL NONE Normal [facility] Comment on above: Performed By: #### U HCGT ####Testing performed at [address] [address] Epithelial cells LM.HPF #/area (Urine sed) TOO NUMEROUS TO COUNT Normal [facility] Comment on above: Performed By: #### U HCGT ####Testing performed at [address] [address] Mucus Ql (Urine sed) TRACE Abnormal NEGATIVE [facility] Comment on above: Performed By: #### U HCGT ####Testing performed at [address] [address] RBC #/vol (U) Negative Normal NEGATIVE [facility] Comment on above: Performed By: #### U HCGT ####Testing performed at [address] [place] [address] URINE COMMENT POSSIBLY CONTAMINATE D SPECIMEN, CULTURE MUST BE ORDERED SEPARATELY IF DEEMED NECESSARY. Normal [facility] Comment on above: Performed By: #### U HCGT ####Testing performed at [address] [address] URINE OTHER SPERM Normal [facility] Comment on above: Performed By: #### U HCGT ####Testing performed at [address] [address] WBC #/vol (U) 20 TO 30 Normal NEGATIVE [facility] Comment on above: Performed By: #### U HCGT ####Testing performed at [address] [address] WET PREPon 09-20-2017 WET PREP SPECIMEN DESCRIPTION VAGINAL SPECIMEN WET PREP CLUE CELLS PRESENT * Result Note: NO YEAST SEEN * * Result Note: NO TRICH SEEN * * Result Note: VERIFIED BY DUP TESTING * REPORT STATUS 09/20/2017 * Result Note: FINAL * Normal [facility] Comment on above: Performed By: #### W ETP ####Testing performed at [address] [address] URINE HCG QUALon 08-18-2017 HCG.beta subunit ( test) Ql (U) Negative Normal [facility] URINE MACROSCOPICon 08-19-19 18 Bilirubin Ql (U) Negative Normal NEGATIVE [facility] Clarity Nom (U) CLEAR Normal CLEAR [facility] Color Nom (U) YELLOW Normal YELLOW [facility] Glucose Ql (U) Negative Normal NEGATIVE [facility] pH (U) 7.0 [pH] Normal 5.0-7.0 [facility] Protein mass conc (U) Negative Normal NEGATIVE [facility] URINE HEMOGLOBIN Negative Normal NEGATIVE [facility] URINE KETONE Negative Normal NEGATIVE [facility] URINE LEUKOTEST TRACE Abnormal NEGATIVE [facility] URINE NITRATES Negative Normal NEGATIVE [facility] URINE SPEC GRAVITY 1.015 Normal 1.010-1.025 [facility] Urobilinogen Qn (U) 0.2 mg/dl Normal 0.2-1.0 [facility] URINE MICROSCOPICon 08-19-19 18 Bacteria LM.HPF #/area (Urine sed) TRACE Abnormal NEGATIVE [facility] Casts LM.LPF #/area (Urine sed) NONE Normal NONE [facility] CRYSTAL NONE Normal NONE [facility] Epithelial cells LM.HPF #/area (Urine sed) 10 TO 20 Normal [facility] Mucus Ql (Urine sed) Negative Normal NEGATIVE [facility] RBC #/vol (U) Negative Normal NEGATIVE [facility] URINE COMMENT POSSIBLY CONTAMINATE D SPECIMEN, CULTURE MUST BE ORDERED SEPARATELY IF DEEMED NECESSARY. Normal [facility] WBC #/vol (U) 1 TO 5 Normal NEGATIVE [facility] CBCon 08-09-2017 ABSOLUTE BAS 0.0 X10 Normal [facility] ABSOLUTE EOS 0.10 X10 Normal [facility] ABSOLUTE NEUTROPHIL COUNT 5.0 x10 Normal 1.0-7.0 [facility] Basophils/100 WBC (Bld) 0.6 % Normal 0.0-2.0 [facility] DTYPE AUTO DIFF Normal [facility] Eosinophils/100 WBC (Bld) 1.6 % Normal 0.0-11.0 [facility] Lymphocytes #/vol (Bld) 1.90 X10 Normal [facility] Lymphocytes/100 WBC (Bld) 24.5 % Normal 20.0-55.0 [facility] Monocytes #/vol (Bld) 0.6 X10 Normal [facility] Monocytes/100 WBC (Bld) 7.5 % Normal 0.0-10.0 [facility] Neutrophils/100 WBC (Bld) 65.8 % Normal 37.0-75.0 [facility] Erythrocyte distribution width Ratio (RBC) 13.7 % Normal 11.5-14.5 [facility] Hematocrit Volume Fraction (Bld) 40.0 % Normal 36.0-48.0 [facility] Hemoglobin mass conc (Bld) 13.4 g/dL Normal 12.0-16.0 [facility] MCH Entitic mass (RBC) 26.0 pg Normal 26.0-35.0 [facility] MCHC mass conc (RBC) 33.5 g/dL Normal 27.0-37.0 [facility] MCV Entitic volume (RBC) 77.7 fL Low 80.0-100.0 [facility] Platelet mean volume Entitic volume (Bld) 9.7 fL Normal 7.4-11.0 [facility] Platelets #/vol (Bld) 229 /cmm Normal 130.0-400.0 [facility] RBC #/vol (Bld) 5.14 /cmm Normal 4.0-5.4 [facility] WBC #/vol (Bld) 7.7 /cmm Normal 3.6-11.0 [facility] CHEM 7 FASTINGon 08-09-2017 Chloride molar conc 107 mmol/L Normal 98-107 [facility] CO2 molar conc 28 mmol/L Normal 22-30 [facility] Creatinine mass conc 0.7 mg/dL Normal 0.7-1.2 [facility] GFR/1.73 sq M predicted among non-blacks MDRD vol rate/area (S/P/Bld) Unable to calculate GFR due to inappropriate age/gender/creatinine value. Normal [facility] Glucose mass conc 109 mg/dL High 70-100 [facility] Comment on above: Result Comment: NORMAL <100 mg/dL PREDIABETES 101-126 mg/dL DIABETES 126 mg/dL or higher Potassium molar conc 3.9 mmol/L Normal 3.5-5.1 [facility] Sodium molar conc 144 mmol/L Normal 137-145 [facility] Urea nitrogen mass conc 9 mg/dL Normal 7-20 [facility] URINE HCG QUALon 08-09-2017 HCG.beta subunit ( test) Ql (U) Negative Normal [facility] URINE MACROSCOPICon 08-10-19 18 Bilirubin Ql (U) Negative Normal NEGATIVE [facility] Clarity Nom (U) HAZY Abnormal CLEAR [facility] Color Nom (U) YELLOW Normal YELLOW [facility] Glucose Ql (U) Negative Normal NEGATIVE [facility] pH (U) 6.0 [pH] Normal 5.0-7.0 [facility] Protein mass conc (U) Negative Normal NEGATIVE [facility] URINE HEMOGLOBIN Negative Normal NEGATIVE [facility] URINE KETONE Negative Normal NEGATIVE [facility] URINE LEUKOTEST SMALL Abnormal NEGATIVE [facility] URINE NITRATES Negative Normal NEGATIVE [facility] URINE SPEC GRAVITY 1.020 Normal 1.010-1.025 [facility] Urobilinogen Qn (U) 0.2 mg/dl Normal 0.2-1.0 [facility] URINE MICROSCOPICon 08-10-19 18 Bacteria LM.HPF #/area (Urine sed) 3+ Abnormal NEGATIVE [facility] Casts LM.LPF #/area (Urine sed) NONE Normal NONE [facility] CRYSTAL OCCASIONAL Abnormal NONE [facility] Comment on above: Result Comment: QUINTIN PHOUS URATES Epithelial cells LM.HPF #/area (Urine sed) 20 TO 30 Normal [facility] Mucus Ql (Urine sed) 1+ Abnormal NEGATIVE [facility] RBC #/vol (U) Negative Normal NEGATIVE [facility] URINE COMMENT POSSIBLY CONTAMINATE D SPECIMEN, CULTURE MUST BE ORDERED SEPARATELY IF DEEMED NECESSARY. Normal [facility] WBC #/vol (U) 10 TO 20 Normal NEGATIVE [facility] Aer C AND S- Throaton 2017 Aer C AND S- Throat See BelowAccession: [id number]: Throat throatProcedure: Hemolytic Strep Culture [p1]Collected: 04/14/2017 01:00 ESTReceived: 04/14/2017 17:59 ESTFINAL REPORTSVerified Date/Time: 04/15/2017 00:50 ESTNo Beta Hemolytic Streptococci isolatedPerforming Locationsp1: This test was performed at:[facility], CLIA #[id number], [address] [place], [place], [address] [place] [address], Normal [facility] Comment on above: Order Comment: Maryana medeiros Order: [id number] HCG, Serumon 04-14-2017 [address] Normal [facility] Comment on above: Order Comment: Testi ng performed at [facility], [address] [place] [id number] Order: [id number] Result Comment: Note : This test provides only a presumptive diagnosisfor . If the HCG result is inconsistentwith clinical evidence, results should be confirmed withan alternative method, such as a quantitative HCG. Strep Screen w/Rfx Cultureon 04-14-2017 Strep Screen w/Rfx Culture Negative Normal Negative [facility] Comment on above: Order Comment: It is recommended that a negative Strep screen be followed with a throatculture.Testing performed at [facility], [address] [place] [id number] Order: [id number] Culture, urine Bacteria identified Cx Nom (U) Positive [facility] Work Phone: Bacteria identified Cx Nom (U) Mixed Gram Pos & Gram Neg Org [facility] Work Phone: No Panel Information Group B Streptococcus Culture Group B Beta Streptococcus is not isolated. [facility] Work Phone: Vital Signs Date Time Vital Sign Value Performing Clinician Facility 11-24-2024 14:50-0400 Body height 170.[address] Tiffany Marks MD Work Phone: [facility] 11-24-2024 14:41-0400 Body mass index (BMI) [Ratio] 50.6 kg/m2 Dr. Tiffany Marks MD Work Phone: [facility] 11-24-2024 14:41-0400 Body weight 146.[address] Tiffany Marks MD Work Phone: [facility] 11-24-2024 14:41-0400 Diastolic blood pressure 72 mm[Hg] Dr. Tiffany Marks MD Work Phone: [facility] 11-24-2024 14:41-0400 Systolic blood pressure 119 mm[Hg] Dr. Tiffany Marks MD Work Phone: [facility] 10-30-2024 08:09-0400 Body height 170.18 cm [employer] Work Phone: [facility] 10-30-2024 08:09-0400 Body mass index (BMI) [Ratio] 50.8 kg/m2 [employer] Work Phone: [facility] 10-30-2024 08:09-0400 Body temperature 97.8 [degF] [employer] Work Phone: [facility] 10-30-2024 08:09-0400 Body weight 147.19 kg [employer] Work Phone: [facility] 10-30-2024 08:09-0400 Diastolic blood pressure 65 mm[Hg] [employer] Work Phone: [facility] 10-30-2024 08:09-0400 Heart rate 93 /min [employer] Work Phone: [facility] 10-30-2024 08:09-0400 Respiratory rate 16 /min [employer] Work Phone: [facility] 10-30-2024 08:09-0400 SaO2% (BldA) [Mass fraction] 98 % [employer] Work Phone: [facility] 10-30-2024 08:09-0400 Systolic blood pressure 114 mm[Hg] [employer] Work Phone: [facility] 10-21-2024 14:55-0400 Body height 170.18 cm [employer] Work Phone: [facility] 10-21-2024 14:55-0400 Body mass index (BMI) [Ratio] 50.5 kg/m2 [employer] Work Phone: [facility] 10-21-2024 14:55-0400 Body weight 146.51 kg [employer] Work Phone: [facility] 10-21-2024 14:55-0400 Diastolic blood pressure 81 mm[Hg] [employer] Work Phone: [facility] 10-21-2024 14:55-0400 Respiratory rate 18 /min [employer] Work Phone: [facility] 10-21-2024 14:55-0400 Systolic blood pressure 120 mm[Hg] [employer] Work Phone: [facility] 10-14-2024 10:56-0400 Body height 170.18 cm [employer] Work Phone: [facility] 10-14-2024 10:56-0400 Body mass index (BMI) [Ratio] 50.7 kg/m2 [employer] Work Phone: [facility] 10-14-2024 10:56-0400 Body weight 146.99 kg [employer] Work Phone: [facility] 10-14-2024 10:56-0400 Diastolic blood pressure 80 mm[Hg] [employer] Work Phone: [facility] 10-14-2024 10:56-0400 Systolic blood pressure 123 mm[Hg] [employer] Work Phone: [facility] 09-18-2024 08:36-0400 Body height 170.18 cm [employer] Work Phone: [facility] 09-18-2024 08:36-0400 Diastolic blood pressure 71 mm[Hg] [employer] Work Phone: [facility] 09-18-2024 08:36-0400 Systolic blood pressure 114 mm[Hg] [employer] Work Phone: [facility] 09-05-2024 08:08-0400 Body height 170.18 cm [employer] Work Phone: [facility] 09-05-2024 08:08-0400 Body mass index (BMI) [Ratio] 50.4 kg/m2 [employer] Work Phone: [facility] 09-05-2024 08:08-0400 Body weight 146.11 kg [employer] Work Phone: [facility] 09-05-2024 08:08-0400 Diastolic blood pressure 78 mm[Hg] [employer] Work Phone: [facility] 09-05-2024 08:08-0400 Heart rate 88 /min [employer] Work Phone: [facility] 09-05-2024 08:08-0400 SaO2% (BldA) [Mass fraction] 96 % [employer] Work Phone: [facility] 09-05-2024 08:08-0400 Systolic blood pressure 116 mm[Hg] [employer] Work Phone: [facility] 09-01-2024 13:06-0400 Body height 170.18 cm [employer] Work Phone: [facility] 09-01-2024 12:58-0400 Body mass index (BMI) [Ratio] 49.7 kg/m2 [employer] Work Phone: [facility] 09-01-2024 12:58-0400 Body weight 144.01 kg [employer] Work Phone: [facility] 09-01-2024 12:58-0400 Diastolic blood pressure 84 mm[Hg] [employer] Work Phone: [facility] 09-01-2024 12:58-0400 Systolic blood pressure 128 mm[Hg] [employer] Work Phone: [facility] 08-13-2024 14:45-0400 Body height 170.18 cm [employer] Work Phone: [facility] 08-13-2024 14:45-0400 Body mass index (BMI) [Ratio] 50.5 kg/m2 [employer] Work Phone: [facility] 08-13-2024 14:45-0400 Body temperature 98.9 [degF] [employer] Work Phone: [facility] 08-13-2024 14:45-0400 Body weight 146.51 kg [employer] Work Phone: [facility] 08-13-2024 14:45-0400 Diastolic blood pressure 84 mm[Hg] [employer] Work Phone: [facility] 08-13-2024 14:45-0400 Heart rate 83 /min [employer] Work Phone: [facility] 08-13-2024 14:45-0400 Respiratory rate 18 /min [employer] Work Phone: [facility] 08-13-2024 14:45-0400 SaO2% (BldA) [Mass fraction] 96 % [employer] Work Phone: [facility] 08-13-2024 14:45-0400 Systolic blood pressure 120 mm[Hg] [employer] Work Phone: [facility] 07-30-2024 08:31-0400 Body height 170.18 cm [employer] Work Phone: [facility] 07-30-2024 08:31-0400 Body mass index (BMI) [Ratio] 49.7 kg/m2 [employer] Work Phone: [facility] 07-30-2024 08:31-0400 Body weight 144.01 kg [employer] Work Phone: [facility] 07-30-2024 08:31-0400 Diastolic blood pressure 80 mm[Hg] [employer] Work Phone: [facility] 07-30-2024 08:31-0400 Heart rate 98 /min [employer] Work Phone: [facility] 07-30-2024 08:31-0400 Respiratory rate 16 /min [employer] Work Phone: [facility] 07-30-2024 08:31-0400 SaO2% (BldA) [Mass fraction] 96 % [employer] Work Phone: [facility] 07-30-2024 08:31-0400 Systolic blood pressure 112 mm[Hg] [employer] Work Phone: [facility] 07-24-2024 10:45-0400 Body temperature 98.7 [degF] [employer] Work Phone: [facility] 07-24-2024 10:45-0400 Diastolic blood pressure 86 mm[Hg] [employer] Work Phone: [facility] 07-24-2024 10:45-0400 Heart rate 66 /min [employer] Work Phone: [facility] 07-24-2024 10:45-0400 Respiratory rate 16 /min [employer] Work Phone: [facility] 07-24-2024 10:45-0400 SaO2% (BldA) [Mass fraction] 98 % [employer] Work Phone: [facility] 07-24-2024 10:45-0400 Systolic blood pressure 122 mm[Hg] [employer] Work Phone: [facility] 07-24-2024 08:23-0400 Body height 170.18 cm [employer] Work Phone: [facility] 07-24-2024 08:23-0400 Body mass index (BMI) [Ratio] 49.8 kg/m2 [employer] Work Phone: [facility] 07-24-2024 08:23-0400 Body weight 144.33 kg [employer] Work Phone: [facility] 08-07-2023 11:42-[address] ZEYNEP MOURA MD [facility] 08-07-2023 11:42-0400 Body height [address] ZEYNEP MOURA MD [facility] 08-07-2023 11:42-0400 Body temperature 97.34 [degF] DR ZEYNEP MOURA MD [facility] 08-07-2023 11:42-0400 Body weight 118.[address] ZEYNEP MOURA MD [facility] 08-07-2023 11:42-0400 Diastolic Blood Pressure Non-Invasive 64 mm[Hg] DR ZEYNEP MOURA MD [facility] 08-07-2023 11:42-0400 Heart rate 85 /min DR ZEYNEP MOURA MD [facility] 08-07-2023 11:42-0400 Respiratory rate 16 /min DR ZEYNEP MOURA MD [facility] 08-07-2023 11:42-0400 Systolic Blood Pressure Non-Invasive 107 mm[Hg] DR ZEYNEP MOURA MD [facility] 06-26-2023 14:11-0400 Diastolic Blood Pressure Non-Invasive 67 mm[Hg] DR VALERIA SANTANA MD [facility] 06-26-2023 14:11-0400 Heart rate 72 /min DR VALERIA SANTANA MD [facility] 06-26-2023 14:11-0400 Respiratory rate 18 /min DR VALERIA SANTANA MD [facility] 06-26-2023 14:11-0400 Systolic Blood Pressure Non-Invasive 112 mm[Hg] DR VALERIA SANTANA MD [facility] 06-26-2023 12:07-0400 Body height 172.[address] VALERIA SANTANA MD [facility] 06-26-2023 12:07-0400 Body temperature 98.42 [degF] DR VALERIA SANTANA MD [facility] 06-26-2023 12:07-0400 Body weight [address] VALERIA SANTANA MD [facility] 06-26-2023 12:07-0400 Diastolic Blood Pressure Non-Invasive 73 mm[Hg] DR VALERIA SANTANA MD [facility] 06-26-2023 12:07-0400 Heart rate 98 /min DR VALERIA SANTANA MD [facility] 06-26-2023 12:07-0400 Respiratory rate 18 /min DR VALERIA SANTANA MD [facility] 06-26-2023 12:07-0400 Systolic Blood Pressure Non-Invasive 111 mm[Hg] DR VALERIA SANTANA MD [facility] 05-16-2023 17:55-0400 Diastolic Blood Pressure Non-Invasive 77 mm[Hg] IVANA LANGE MD [facility] 05-16-2023 17:55-0400 Heart rate 76 /min IVANA LANGE MD [facility] 05-16-2023 17:55-0400 Mean blood pressure 90 mm[Hg] IVANA LANGE MD [facility] 05-16-2023 17:55-0400 Respiratory rate 16 /min IVANA LANGE MD [facility] 05-16-2023 17:55-0400 Systolic Blood Pressure Non-Invasive 125 mm[Hg] IVANA LANGE MD [facility] 05-16-2023 16:45-0400 Body height 170.2 cm IVANA LANGE MD [facility] 05-16-2023 16:45-0400 Body temperature 98.42 [degF] IVANA LANGE MD [facility] 05-16-2023 16:45-0400 Body weight 127.3 kg IVANA LANGE MD [facility] 05-16-2023 16:45-0400 Diastolic Blood Pressure Non-Invasive 77 mm[Hg] IVANA LANGE MD [facility] 05-16-2023 16:45-0400 Heart rate 89 /min IVANA LANGE MD [facility] 05-16-2023 16:45-0400 Respiratory rate 18 /min IVANA LANGE MD [facility] 05-16-2023 16:45-0400 Systolic Blood Pressure Non-Invasive 114 mm[Hg] IVANA LANGE MD [facility] 04-03-2023 14:18-[address] BLAYNE DORAN MD [facility] 04-03-2023 14:18-0500 Body temperature 98.78 [degF] DR BLAYNE DORAN MD [facility] 04-03-2023 14:18-0500 Body weight 133.[address] BLAYNE DORAN MD [facility] 04-03-2023 14:18-0500 Diastolic Blood Pressure Non-Invasive 71 mm[Hg] DR BLAYNE DORAN MD [facility] 04-03-2023 14:18-0500 Heart rate 89 /min DR BLAYNE DORAN MD [facility] 04-03-2023 14:18-0500 Respiratory rate 18 /min DR BLAYNE DORAN MD [facility] 04-03-2023 14:18-0500 Systolic Blood Pressure Non-Invasive 105 mm[Hg] DR BLAYNE DORAN MD [facility] 02-22-2023 19:54-0500 Blood Pressure Cuff Size DR BLAYNE DORAN MD [facility] 02-22-2023 19:54-[address] BLAYNE DORAN MD [facility] 02-22-2023 19:54-[address] BLAYNE DORAN MD [facility] 02-22-2023 19:54-0500 Diastolic Blood Pressure Non-Invasive 71 mm[Hg] DR BLAYNE DORAN MD [facility] 02-22-2023 19:54-0500 Heart rate 64 /min DR BLAYNE DORAN MD [facility] 02-22-2023 19:54-0500 Respiratory rate 16 /min DR BLAYNE DORAN MD [facility] 02-22-2023 19:54-0500 Systolic Blood Pressure Non-Invasive 129 mm[Hg] DR BLAYNE DORAN MD [facility] 02-22-2023 15:01-0500 Body height 170.[address] BLAYNE DORAN MD [facility] 02-22-2023 15:01-0500 Body temperature 98.42 [degF] DR BLAYNE DORAN MD [facility] 02-22-2023 15:01-0500 Body weight [address] BLAYNE DORAN MD [facility] 02-22-2023 15:01-0500 Diastolic Blood Pressure Non-Invasive 79 mm[Hg] DR BLAYNE DORAN MD [facility] 02-22-2023 15:01-0500 Heart rate 73 /min DR BLAYNE DORAN MD [facility] 02-22-2023 15:01-0500 Respiratory rate 18 /min DR BLAYNE DORAN MD [facility] 02-22-2023 15:01-0500 Systolic Blood Pressure Non-Invasive 121 mm[Hg] DR BLAYNE DORAN MD [facility] 02-09-2022 14:26-0500 Body temperature 97.4 [degF] [facility] Work Phone: 02-09-2022 14:26-0500 Diastolic blood pressure 66 mm[Hg] [facility] Work Phone: 02-09-2022 14:26-0500 Heart rate 85 /min [facility] Work Phone: 02-09-2022 14:26-0500 Respiratory rate 16 /min [facility] Work Phone: 02-09-2022 14:26-0500 SaO2% (BldA) [Mass fraction] 96 % [facility] Work Phone: 02-09-2022 14:26-0500 Systolic blood pressure 114 mm[Hg] [facility] Work Phone: 02-04-2022 15:31-0500 Body height 170.18 cm [facility] Work Phone: 02-04-2022 15:31-0500 Body mass index (BMI) [Ratio] 49.4 kg/m2 [facility] Work Phone: 02-04-2022 15:31-0500 Body weight 143.33 kg [facility] Work Phone: 01-28-2022 07:37-0500 SaO2% (BldA) [Mass fraction] 98 % [facility] Work Phone: 01-28-2022 07:36-0500 Body temperature 97.8 [degF] [facility] Work Phone: 01-28-2022 07:36-0500 Diastolic blood pressure 79 mm[Hg] [facility] Work Phone: 01-28-2022 07:36-0500 Heart rate 63 /min [facility] Work Phone: 01-28-2022 07:36-0500 Systolic blood pressure 133 mm[Hg] [facility] Work Phone: 01-27-2022 22:45-0500 Body height 170.18 cm [facility] Work Phone: 01-27-2022 22:45-0500 Body mass index (BMI) [Ratio] 49.1 kg/m2 [facility] Work Phone: 01-27-2022 22:45-0500 Body weight 142.14 kg [facility] Work Phone: 01-17-2022 16:11-0500 Diastolic blood pressure 76 mm[Hg] [facility] Work Phone: 01-17-2022 16:11-0500 Heart rate 69 /min [facility] Work Phone: 01-17-2022 16:11-0500 SaO2% (BldA) [Mass fraction] 96 % [facility] Work Phone: 01-17-2022 16:11-0500 Systolic blood pressure 118 mm[Hg] [facility] Work Phone: 01-17-2022 16:10-0500 Body temperature 98.4 [degF] [facility] Work Phone: 01-17-2022 15:25-0500 Body height 170.18 cm [facility] Work Phone: 01-17-2022 15:25-0500 Body mass index (BMI) [Ratio] 47.3 kg/m2 [facility] Work Phone: 01-17-2022 15:25-0500 Body weight 137.1 kg [facility] Work Phone: 11-26-2021 17:43-0400 Body height 170.18 cm [facility] Work Phone: 11-26-2021 17:43-0400 Body mass index (BMI) [Ratio] 43.9 kg/m2 [facility] Work Phone: 11-26-2021 17:43-0400 Body weight 127.3 kg [facility] Work Phone: 11-26-2021 17:26-0400 Diastolic blood pressure 64 mm[Hg] [facility] Work Phone: 11-26-2021 17:26-0400 Heart rate 90 /min [facility] Work Phone: 11-26-2021 17:26-0400 Systolic blood pressure 118 mm[Hg] [facility] Work Phone: 11-26-2021 17:25-0400 Body temperature 98.3 [degF] [facility] Work Phone: 02-22-2021 14:11-0500 Diastolic blood pressure 78 mm[Hg] [facility] Work Phone: 02-22-2021 14:11-0500 Heart rate 79 /min [facility] Work Phone: 02-22-2021 14:11-0500 SaO2% (BldA) [Mass fraction] 98 % [facility] Work Phone: 02-22-2021 14:11-0500 Systolic blood pressure 123 mm[Hg] [facility] Work Phone: 02-22-2021 11:57-0500 Respiratory rate 14 /min [facility] Work Phone: 02-22-2021 08:45-0500 Body height 170.18 cm [facility] Work Phone: 02-22-2021 08:45-0500 Body mass index (BMI) [Ratio] 46.5 kg/m2 [facility] Work Phone: 02-22-2021 08:45-0500 Body temperature 96.5 [degF] [facility] Work Phone: 02-22-2021 08:45-0500 Body weight 134.7 kg [facility] Work Phone: 07-12-2018 12:46-0400 Height 170.2 cm [employer] 07-12-2018 12:44-0400 Body Temperature 98.1 [degF] [employer] 07-12-2018 12:44-0400 BP Diastolic 64 mm[Hg] [employer] 07-12-2018 12:44-0400 BP Systolic 125 mm[Hg] [facility] 07-12-2018 12:44-0400 Pulse (Heart Rate) 100 /min [facility] 07-12-2018 12:44-0400 Pulse Oximetry 97 % [facility] 07-12-2018 12:44-0400 Respiratory Rate 18 /min [facility] 10-24-2017 14:40-0400 BMI (Body Mass Index) 39.68 kg/m2 [facility] 10-24-2017 14:40-0400 Body Temperature 98.71 [degF] [facility] 10-24-2017 14:40-0400 BP Diastolic 72 mm[Hg] [facility] 10-24-2017 14:40-0400 BP Systolic 105 mm[Hg] [facility] 10-24-2017 14:40-0400 Height 172.7 cm [facility] 10-24-2017 14:40-0400 Pulse (Heart Rate) 94 /min [facility] 10-24-2017 14:40-0400 Pulse Oximetry 96 % [facility] 10-24-2017 14:40-0400 Respiratory Rate 16 /min [facility] 10-24-2017 14:40-0400 Weight 118.39 kg [facility] Encounters Encounter Date Encounter Type Care Provider Facility Start: 12-10-2024 ambulatory Ed Physician Provider Facility:[facility] Start: 12-09-2024 Encounter for other preprocedural examination Luis Pandya [facility] Start: 12-04-2024 ambulatory Luis Pandya Facility :[facility] Start: 12-04-2024 End: 12-04-2024 ambulatory Luis Pandya Facility:[facility] Start: 11-24-2024 End: 11-24-2024 Patient encounter procedure Simin BENITES -[facility] Work Phone: Start: 11-24-2024 End: 11-24-[address] Tiffany Marks MD Work Phone: -[facility] Start: 11-19-2024 End: 11-19-[address] Tiffany Marks MD Work Phone: -Ultrasound [facility] Start: 11-19-2024 End: 11-19-[address] Teresa Wilkinson MD -Ultrasound [facility] Work Phone: Start: 11-19-2024 End: 11-19-2024 ambulatory MICHELLE MAST Facility:[facility] Start: 10-30-2024 End: 10-30-2024 Patient encounter procedure Ashley Larose MANAGER BEVERAGE-C -[facility] Work Phone: Start: 10-30-2024 End: 10-30-2024 ambulatory MICHELLE MAST PLANT CULTURE MANAGER Work Phone: -[facility] Start: 10-21-2024 End: 10-21-[address] Luis Pandya MD -[facility] Work Phone: Start: 10-21-2024 End: 10-21-2024 ambulatory MICHELLE MAST PLANT CULTURE MANAGER Work Phone: -[facility] Start: 10-15-2024 ambulatory Ashley Tracey ty:[facility] Start: 10-14-2024 End: 10-14-2024 Patient encounter procedure Simin Aimee MANAGER BEVERAGE-C -[facility] Work Phone: Start: 10-14-2024 End: 10-14-2024 ambulatory MICHELLE MAST PLANT CULTURE MANAGER Work Phone: -[facility] Start: 10-14-2024 End: 10-14-2024 ambulatory Roxanne Atanasov Facility:[facility] Start: 09-19-2024 End: 09-19-2024 ambulatory MICHELLE MAST PLANT CULTURE MANAGER Work Phone: -Ultrasound [facility] Start: 09-19-2024 End: 09-19-2024 Patient encounter procedure Simin Aimee MANAGER BEVERAGE-C -Ultrasound [facility] Work Phone: Start: 09-18-2024 End: 09-18-[address] Teresa Wilkinson MD -[facility] Work Phone: Start: 09-18-2024 End: 09-19-2024 ambulatory MICHELLE MAST PLANT CULTURE MANAGER Work Phone: -[facility] Start: 09-10-2024 End: 09-10-2024 ambulatory MICHELLE MAST PLANT CULTURE MANAGER Work Phone: -Laboratory Start: 09-10-2024 End: 09-10-2024 Patient encounter procedure Ashley Larose MANAGER BEVERAGE-C -Laboratory Work Phone: Start: 09-10-2024 End: 09-10-2024 ambulatory Ashley Larose Facility:[facility] Start: 09-05-2024 End: 09-05-2024 Patient encounter procedure Ashley Larose MANAGER BEVERAGE-C -[facility] Work Phone: Start: 09-05-2024 End: 09-05-2024 ambulatory MICHELLE MAST PLANT CULTURE MANAGER Work Phone: -[facility] Start: 09-02-2024 End: 09-02-2024 ambulatory MICHELLE MAST PLANT CULTURE MANAGER Work Phone: -Laboratory Start: 09-02-2024 End: 09-02-2024 Patient encounter procedure Ashley Larose MANAGER BEVERAGE-C -Laboratory Work Phone: Start: 09-01-2024 End: 09-01-2024 Patient encounter procedure Simin Yu MANAGER BEVERAGE-C -[facility] Work Phone: Start: 09-01-2024 End: 09-02-2024 ambulatory MICHELLE MAST PLANT CULTURE MANAGER Work Phone: -[facility] Start: 08-13-2024 End: 08-13-[address] Tiffany Marks MD -[facility] Work Phone: Start: 08-13-2024 End: 08-13-2024 ambulatory MICHELLE MAST PLANT CULTURE MANAGER Work Phone: [facility] Work Phone: Start: 08-05-2024 End: 08-05-2024 ambulatory MICHELLE MAST PLANT CULTURE MANAGER Work Phone: [facility] Work Phone: Start: 08-05-2024 End: 08-05-2024 Patient encounter procedure Ashley BENITES -Ultrasound [facility] Work Phone: Start: 08-05-2024 End: 08-05-2024 ambulatory Tiffany Willards Facility:[facility] Start: 07-30-2024 End: 07-30-2024 ambulatory MICHELLE MAST PLANT CULTURE MANAGER Work Phone: [facility] Work Phone: Start: 07-30-2024 End: 07-30-2024 Patient encounter procedure Ashley BENITES -Laboratory Work Phone: Start: 07-30-2024 End: 07-30-2024 Patient encounter procedure Ashley BENITES -[facility] Work Phone: Start: 07-30-2024 End: 07-30-2024 ambulatory MICHELLE MAST PLANT CULTURE MANAGER Work Phone: [facility] Work Phone: Start: 07-29-2024 Registered Referred HEALTH RIS K ASSESSMENT -Laboratory Work Phone: Start: 07-29-2024 End: 07-30-2024 ambulatory Tiffany Selina Facility:[facility] Start: 07-24-2024 End: 07-24-2024 Emergency department patient visit MICHELLE MAST PLANT CULTURE MANAGER Work Phone: -Emergency Department Work Phone: Start: 07-16-2024 End: 07-16-2024 ambulatory MICHELLE MAST PLANT CULTURE MANAGER Work Phone: [facility] Work Phone: Start: 07-16-2024 End: 07-16-2024 Patient encounter procedure iLbertad Pate MANAGER BEVERAGEElenaC -Laboratory Work Phone: Start: 07-16-2024 End: 07-16-2024 ambulatory [facility] Facility:[facility] Start: 06-05-2024 Registered Referred HEALTH RIS K ASSESSMENT -Employee Health Start: 06-05-2024 ambulatory MICHELLE MAST Facility:[facility] Start: 06-05-2024 Registered [employer]ring EM[employer]OYEE HE[employer] -Employee Health Start: 01-19-2024 End: 01-19-2024 ambulatory [facility] Facility:[facility] Start: 01-15-2024 ambulatory MICHELLE MAST [facility] Start: 08-07-2023 End: 08-07-2023 Emergency department patient visit DR ZEYNEP MOURA MD [facility] Start: 2023 End: 2023 Patient encounter procedure SAYEDA DERIK SELLING UNDERWRITER-OCEANOLOGY TEACHER [facility] Start: 2023 End: 2023 ambulatory SAYEDA DERIK SELLING UNDERWRITER-OCEANOLOGY TEACHER Facility:[facility] Start: 07-02-2023 ambulatory SAYEDA DERIK SELLING UNDERWRITER-OCEANOLOGY TEACHER Facility:[facility] Start: 06-26-2023 End: 06-26-2023 Emergency department patient visit DR VALERIA SANTANA MD [facility] Start: 05-16-2023 End: 05-16-2023 Emergency department patient visit IVANA LANGE MD [facility] Start: 05-15-2023 End: 05-15-2023 ambulatory MICHELLE MAST SELLING UNDERWRITER-OCEANOLOGY TEACHER Facility:[facility] Start: 05-15-2023 End: 05-15-2023 Patient encounter procedure SAYEDA DERIK SELLING UNDERWRITER-OCEANOLOGY TEACHER [facility] Start: 04-03-2023 End: 04-03-2023 Emergency department patient visit DR BLAYNE DORAN MD [facility] Start: 02-24-2023 End: 02-24-2023 ambulatory MICHELLE MAST SELLING UNDERWRITER-OCEANOLOGY TEACHER Facility:[facility] Start: 02-24-2023 End: 02-24-2023 Patient encounter procedure MICHELLE MAST SELLING UNDERWRITER-OCEANOLOGY TEACHER [facility] Start: 02-22-2023 End: 02-22-2023 Emergency department patient visit DR BLAYNE DORAN MD [facility] Start: 08-31-2022 End: 08-31-2022 ambulatory [facility] Work Phone: Start: 08-31-2022 End: 08-31-2022 Patient encounter procedure [facility]-Laboratory, Specimen Work Phone: Start: 02-04-2022 End: 02-09-2022 [facility] Start: 02-01-2022 End: 02-01-2022 ambulatory [facility] Work Phone: Start: 02-01-2022 End: 02-01-2022 [facility] [place] [facility] Start: 01-30-2022 End: 01-31-2022 Evaluation and management of inpatient [facility] Start: 01-28-2022 End: 01-31-2022 Evaluation and management of inpatient [facility] Start: 01-27-2022 End: 01-28-2022 ambulatory [facility] Work Phone: Start: 01-27-2022 End: 01-28-2022 Patient encounter procedure [facility] Out[facility] Start: 01-24-2022 End: 01-24-2022 ambulatory [facility] Work Phone: Start: 01-24-2022 End: 01-24-2022 Patient encounter procedure [facility]-Laboratory, [place] resident services coordinator Off Start: 01-17-2022 End: 01-17-2022 ambulatory [facility] Work Phone: Start: 01-17-2022 End: 01-17-2022 Patient encounter procedure [facility] Outpatients Start: 12-02-2021 End: 12-02-2021 ambulatory [facility] Work Phone: Start: 12-02-2021 End: 12-02-2021 [facility] [place] [facility] Start: 11-28-2021 End: 11-28-2021 ambulatory [facility] Work Phone: Start: 11-28-2021 End: 11-28-2021 [facility] [place] [facility] Start: 11-26-2021 End: 11-26-2021 Patient encounter procedure [facility] Outpatients Start: 09-13-2021 End: 09-13-2021 [facility] [place] [facility] Start: 08-23-2021 End: 08-23-2021 [facility] [place] [facility] Start: 07-02-2021 End: 07-02-2021 [facility] Start: 06-30-2021 End: 06-30-2021 [facility] [place] [facility] Off Start: 06-28-2021 End: 06-28-2021 [facility] [place] [facility] Start: 05-30-2021 End: 05-30-2021 [facility] [place] [facility] Start: 02-22-2021 End: 02-22-2021 Emergency department patient visit [facility]-Emergency Department Start: 07-12-2018 End: 07-12-2018 Emergency department patient visit Myron Morrison Work Phone: [facility] Start: 07-10-2018 Patient encounter procedure LIBERTAD MARINO Facility:[facility] Start: 10-25-2017 End: 10-29-2017 Patient [facility] Start: 10-24-2017 End: 10-24-2017 Patient encounter SARA WALTERS [facility] Start: 10-24-2017 End: 10-24-2017 Office outpatient new 20 minutes Lydia Flynn Work Phone: [facility] [place] Comment on above: Diarrhea, unspecifie d type (Primary Dx) Start: 04-14-2017 End: 04-14-2017 Emergency department patient visit KORINA RAMIREZ Facility:[facility] Start: 04-12-2017 End: 04-12-2017 Emergency department patient visit WALTER AUSTEN Facility:[facility] Procedures Date Procedure Procedure Detail Performing Clinician Start: 11-19-[address] Suhas Marks MD Work Phone: Start: 10-14-2024 Radionuclide study of abdomen MICHELLE MAST PLANT CULTURE MANAGER Work Phone: Start: 09-19-2024 Pelvic echography KRIST A MAST PLANT CULTURE MANAGER Work Phone: Start: 09-10-2024 CR measurement MICHELLE MAST PLANT CULTURE MANAGER Work Phone: Comment on above: Performed at: [address] Director: Gilles Carey PhD, Phone: [phone] Start: 09-10-2024 Antibody measurement KR ISTA MAST PLANT CULTURE MANAGER Work Phone: Comment on above: The atypical pANCA p attern has been observed in asignificant percentage of patients with ulcerative colitis,primary sclerosing cholangitis and autoimmune hepatitis. Start: 09-10-2024 Antibody to centrome re measurement MICHELLE MAST PLANT CULTURE MANAGER Work Phone: Comment on above: Test not performed Start: 09-10-2024 Antibody to extracta ble nuclear antigen measurement MICHELLE MAST PLANT CULTURE MANAGER Work Phone: Comment on above: Test not performed Start: 09-10-2024 Antibody to DIEGO-1 measurement MICHELLE MAST PLANT CULTURE MANAGER Work Phone: Comment on above: Test not performed Start: 09-10-2024 Antibody to lupus La protein measurement MICHELLE MAST PLANT CULTURE MANAGER Work Phone: Comment on above: Test not performed Start: 09-10-2024 Antibody to SS-A measurement MICHELLE MAST PLANT CULTURE MANAGER Work Phone: Comment on above: Test not performed Start: 09-10-2024 Autoantibody measurement MICHELLE MAST PLANT CULTURE MANAGER Work Phone: Comment on above: Test not performed Start: 09-10-2024 Ceruloplasmin measurement MICHELLE MAST PLANT CULTURE MANAGER Work Phone: Comment on above: Performed at: [place] [id number] Director: Gilles Carey PhD, Phone: [phone] Start: 09-10-2024 BUILDING ARCHITECT antibody measurement MICHELLE MAST PLANT CULTURE MANAGER Work Phone: Comment on above: Test not performed Start: 09-10-2024 Total iron binding c apacity measurement MICHELLE MAST PLANT CULTURE MANAGER Work Phone: Start: 09-10-2024 Vitamin D, 25-hydrox y measurement MICHELLE MAST PLANT CULTURE MANAGER Work Phone: Comment on above: Vitamin D StatusDefi ciency: <20 ng/mL (50nmol/L)Insufficiency: 20-30 ng/mL (50-75 nmol/L)Sufficiency: 30-100 ng/mL (75-250 nmol/L)Toxicity: >100 ng/mL (>250 nmol/L) Start: 09-02-2024 Procedure MICHELLE MAS T PLANT CULTURE MANAGER Work Phone: Comment on above: Test Ordered: [id number] Enhanced Liver Fibrosis (ELF)ELF(TM) Score 8.18 BN [...] STELLAR trials. J Hepatol. 2020 Aug;73(1):26-39.Performed at: [address] [id number] Director: Juana Lee MD, Phone: [phone] at: [address] [id number] Director: Gilles Carey PhD, Phone: [phone] Start: 08-05-2024 Ultrasound elastogra phy of liver MICHELLE MAST PLANT CULTURE MANAGER Work Phone: Start: 07-30-2024 Chocolate RAST MICHELLE M AST PLANT CULTURE MANAGER Work Phone: Start: 07-30-2024 Food RAST MICHELLE MAS T PLANT CULTURE MANAGER Work Phone: Start: 07-30-2024 Hepatitis A virus an tibody, total measurement MICHELLE MAST PLANT CULTURE MANAGER Work Phone: Comment on above: Comment: The [...] HAVtotal antibody results to IgM (e.g., panel #[id number] HAVAntibody w/ Rfx).Performed at: [facility] [employer] [id number] Director: Gilles Carey PhD, Phone: [phone] Start: 07-30-2024 Hepatitis C antibody measurement MICHELLE MAST PLANT CULTURE MANAGER Work Phone: Comment on above: Reactive: Presumptiv e evidence of antibodies to HCV. Follow CDC recommendations for supplemental testing.Non-Reactive: Antibodies to HCV were not detected; does not exclude the possibility of exposure to HCVReactive Results are presumptive evidence of antibodies to HCV. Follow CDC recommendations for supplemental testing.Order confirmation testing: HCV Quant by PCR testing - HCVPCR #[id number] Non Reactive: < 0.8 Equivocal: >/= 0.8 to < 1.0 Reactive: >/= 1.0The CDC requires that a reactive/equivocal HCV antibody result be sent out for confirmation. HCV Quant by PCR testing. Start: 07-30-2024 Alex PEACE MICHELLE AGUILAR Work Phone: Start: 07-30-2024 Vitamin D, 25-hydrox [...] Phone: Start: 07-12-2018 URINALYSIS, MACRO Myron A Prince Work Phone: Group B Streptococcus Culture Urine culture Plan of Treatment Date Care Activity Detail Author Start: 09-10-2024 Cytoplasmic ANCA Screen [facility] Start: 09-10-2024 Mitochondria Ab [Pre sence] in Serum [facility] Start: 07-24-2024 [facility] Start: 02-09-2022 Patient discharge [facility] Work Phone: Start: 02-09-2022 [facility] Work Phone: Start: 02-05-2022 Application of abdom inal corset [facility] Work Phone: Start: 02-04-2022 End: 02-05-2022 [facility] Work Phone: Start: 02-04-2022 Administration of medication [facility] Work Phone: Start: 02-04-2022 Ambulation therapy management [facility] Work Phone: Start: 02-04-2022 Application of device [facility] Work Phone: Start: 02-04-2022 Application of intermittent pneumatic compression device [facility] Work Phone: Start: 02-04-2022 Assessment of risk o f venous thromboembolism [facility] Work Phone: Start: 02-04-2022 Catheterization of vein [facility] Work Phone: Start: 02-04-2022 Deep breathing and coughing exercises [facility] Work Phone: Start: 02-04-2022 Exercises [facility] Work Phone: Start: 02-04-2022 Incentive spirometry [facility] Work Phone: Start: 02-04-2022 Measuring intake and output [facility] Work Phone: Start: 02-04-2022 Notification of physician [facility] Work Phone: Start: 02-04-2022 Procedure discontinued [facility] Work Phone: Start: 02-04-2022 Provision of activit y privileges [facility] Work Phone: Start: 02-04-2022 Vital signs measurements [facility] Work Phone: Start: 02-04-2022 Wound care [facility] Work Phone: Start: 02-04-2022 Application of abdom inal corset [facility] Work Phone: Start: 02-04-[address] [facility] Work Phone: Start: 02-04-2022 Consultation [facility] Work Phone: Start: 02-01-2022 Blood count complete auto&auto difrntl wbc COMPLETE CBC W/AUTO DIFF WBC [facility] Work Phone: Start: 02-01-2022 Collection venous bl ood venipuncture ROUTINE VENIPUNCTURE [facility] Work Phone: Start: 02-01-2022 Comprehensive metabo lic panel COMPREHEN METABOLIC PANEL [facility] Work Phone: Start: 02-01-2022 Creatinine other source ASSAY OF URINE CREATININE [facility] Work Phone: Start: 02-01-2022 Culture bacterial quanttative colony count urine URINE CULTURE/COLONY COUNT [facility] Work Phone: Start: 02-01-2022 Culture bct isol&prs mptv id isolate ea urine URINE BACTERIA CULTURE [facility] Work Phone: Start: 02-01-2022 Lactate dehydrogenase ldh LACT ATE (LD) (LDH) ENZYME [facility] Work Phone: Start: 02-01-2022 Protein total xcpt refractometry urine ASSAY OF PROTEIN URINE [facility] Work Phone: Start: 01-27-2022 End: 01-28-2022 [facility] Work Phone: Start: 01-28-2022 Patient discharge [facility] Work Phone: Start: 01-27-2022 Nonstress test [facility] Work Phone: Start: 01-27-2022 Obstetric monitoring [facility] Work Phone: Start: 01-27-2022 Vital signs measurements [facility] Work Phone: Start: 01-27-2022 [facility] Work Phone: Start: 01-17-2022 Nonstress test [facility] Work Phone: Start: 01-17-2022 Obstetric monitoring [facility] Work Phone: Start: 01-17-2022 Vital signs measurements [facility] Work Phone: Start: 01-17-2022 End: 01-17-2022 [facility] Work Phone: Start: 01-17-2022 [facility] Start: 11-26-2021 Nonstress test [facility] Work Phone: Start: 11-26-2021 Obstetric monitoring [facility] Work Phone: Start: 11-26-2021 Vital signs measurements [facility] Work Phone: Start: [facility] Start: 11-26-2021 [facility]: Start: 08-23-2021 [facility]: Start: 08-23-2021 Chlamydia deoxyribon ucleic acid detection [facility] Work Phone: Start: 10-20-2018 Influenza vaccination INFLUENZ A VACCINE (Season Ended) [facility] Start: 10-20-2017 Influenza vaccination SEQUENTI AL INFLUENZA VACCINE (#1) [facility] Start: 2017 Third diphtheria, te tanus and acellular pertussis (DTaP) vaccination TDAP (ADULT) [facility] Start: 2016 Tetanus vaccination TETANUS [facility] Start: 2014 Screening for Chlamy karen trachomatis CHLAMYDIA SCREEN [facility] Start: 2013 Vaccination for pollo n papillomavirus HPV VACCINE ADOL (1 - Female 3-dose series) [facility] Start: 07-06-2011 HIV screening HIV SCREENING DISCUSSION [facility] Start: 2009 Vaccination for pollo n papillomavirus HPV VACCINES (1 of 3 - Female 3-dose series) [facility] Start: 1998 GONORRHEA SCREEN GONORRHEA SCREEN [facility] Start: 1998 Tetanus vaccination TETANUS EVERY 10 YR [facility] Alpha 1 antitrypsin [Mass/volume] in Serum or Plasma [facility] Antibody to lupus La protein measurement [facility] Antibody to SS-A measurement [facility] Bacteria identified in Urine by Culture [facility] Work Phone: Basic metabolic 2008 panel with ionized calcium - Serum or Plasma [facility] Beta-hemolytic Streptococcus culture [facility] Work Phone: C reactive protein [Mass/volume] in Serum or Plasma [facility] Ceruloplasmin [Mass/volume] in Serum or Plasma [facility] Cytoplasmic ANCA Screen [facility] DNA double strand Ab [Units/volume] in Serum [facility] Ferritin [Mass/volum e] in Serum or Plasma [facility] End: 10-24-2018 Gastrointestinal pathogens DNA and RNA panel - Stool by LIANA with non-probe detection Stool/GI PCR Panel Routine Diarrhea, unspecified type 1 Occurrences starting 10/24/2017 until 10/24/2018 [facility] Comment on above: 1 Occurrences starti ng 10/24/2017 until 10/24/2018 Group B Streptococcu s Culture Group B Streptococcus Culture [facility] Work Phone: Hemoglobin A1c/Hemoglobin.total in Blood [facility] Hepatic function panel [facility] Hepatitis A virus Ab [Presence] in Serum [facility] Hepatitis C antibody measurement [facility] IgA [Mass/volume] in Serum or Plasma [facility] Iron and Iron bindin g capacity panel - Serum or Plasma [facility] Lipid 1996 panel - S aggie or Plasma [facility] Liver stiffness by US.transient elastography [facility] Mitochondria Ab [Pre sence] in Serum [facility] Neisseria gonorrhoea e rRNA [Presence] in Unspecified specimen by LIANA with probe detection [facility] Work Phone: Path report.final Dx Spec [facility] Patient Education [facility] Work Phone: Patient referral [facility] Work Phone: PCR test for Chlamyd ia trachomatis [facility] Work Phone: Procedure [facility] Work Phone: Procedure [facility] Smooth muscle Ab [Presence] in Serum [facility] Thyroid stimulating hormone measurement [facility] Tissue transglutamin ase IgA Ab [Units/volume] in Serum [facility] US Pelvis [facility] Vitamin D, 25-hydrox y measurement [facility] Vitamin D, 25-hydrox y measurement [facility] Immunizations Immunization Date Immunization Notes Care Provider Heber lowe 06-17-2024 Hepatitis B vaccine (recombinant), CpG adjuvanted MICHELLE MAST PLANT CULTURE MANAGER Work Phone: [facility] 12-12-2016 influenza, injectabl e, quadrivalent, preservative free MICHELLE MAST PLANT CULTURE MANAGER Work Phone: [facility] 08-02-2016 tetanus toxoid, redu ravinder diphtheria toxoid, and acellular pertussis vaccine, adsorbed MICHELLE MAST PLANT CULTURE MANAGER Work Phone: [facility] 05-10-2016 meningococcal B vacc ine, fully recombinant MICHELLE MAST PLANT CULTURE MANAGER Work Phone: [facility] 03-29-2016 meningococcal B vacc ine, fully recombinant MICHELLE MAST PLANT CULTURE MANAGER Work Phone: [facility] 11-24-2015 meningococcal polysaccharide (groups A, C, Y and W-135) diphtheria toxoid conjugate vaccine (MCV4P) MICHELLE MAST PLANT CULTURE MANAGER Work Phone: [facility] 07-22-2013 hepatitis A vaccine, pediatric/adolescent dosage, 2 dose schedule MICHELLE MAST PLANT CULTURE MANAGER Work Phone: [facility] 01-21-2013 hepatitis A vaccine, pediatric/adolescent dosage, 2 dose schedule MICHELLE MAST PLANT CULTURE MANAGER Work Phone: [facility] 01-01-2013 influenza, injectabl e, quadrivalent, preservative free MICHELLE MAST PLANT CULTURE MANAGER Work Phone: [facility] 03-06-2011 influenza, injectabl e, quadrivalent, preservative free MICHELLE MAST PLANT CULTURE MANAGER Work Phone: [facility] 11-24-2010 human papilloma viru s vaccine, bivalent MICHELLE MAST PLANT CULTURE MANAGER Work Phone: [facility] 07-21-2010 human papilloma viru s vaccine, bivalent MICHELLE MAST PLANT CULTURE MANAGER Work Phone: [facility] 07-21-2010 varicella virus vaccine TESS TA MAST PLANT CULTURE MANAGER Work Phone: [facility] 05-18-2010 human papilloma viru s vaccine, bivalent MICHELLE MAST PLANT CULTURE MANAGER Work Phone: [facility] 05-18-2010 meningococcal polysaccharide (groups A, C, Y and W-135) diphtheria toxoid conjugate vaccine (MCV4P) MICHELLE MAST PLANT CULTURE MANAGER Work Phone: [facility] 05-18-2010 tetanus toxoid, redu ravinder diphtheria toxoid, and acellular pertussis vaccine, adsorbed MICHELLE MAST PLANT CULTURE MANAGER Work Phone: [facility] 11-10-2003 diphtheria, tetanus toxoids and acellular pertussis vaccine MICHELLE MAST PLANT CULTURE MANAGER Work Phone: [facility] 11-10-2003 measles, mumps and rubella virus vaccine MICHELLE MAST PLANT CULTURE MANAGER Work Phone: [facility] 11-10-2003 poliovirus vaccine, inactivated MICHELLE MAST PLANT CULTURE MANAGER Work Phone: [facility] 12-15-1999 diphtheria, tetanus toxoids and acellular pertussis vaccine MICHELLE MAST PLANT CULTURE MANAGER Work Phone: [facility] 12-15-1999 haemophilus influenz ae type b vaccine, PRP-T conjugate MICHELLE MAST PLANT CULTURE MANAGER Work Phone: [facility] 07-06-1999 measles, mumps and rubella virus vaccine MICHELLE MAST PLANT CULTURE MANAGER Work Phone: [facility] 07-06-1999 poliovirus vaccine, inactivated MICHELLE MAST PLANT CULTURE MANAGER Work Phone: [facility] 07-06-1999 varicella virus vaccine TESS TA MAST PLANT CULTURE MANAGER Work Phone: [facility] 02-09-1999 diphtheria, tetanus toxoids and acellular pertussis vaccine MICHELLE MAST PLANT CULTURE MANAGER Work Phone: [facility] 02-09-1999 haemophilus influenz ae type b conjugate and Hepatitis B vaccine MICHELLE MAST PLANT CULTURE MANAGER Work Phone: [facility] 1998 diphtheria, tetanus toxoids and acellular pertussis vaccine MICHELLE MAST PLANT CULTURE MANAGER Work Phone: [facility] 1998 haemophilus influenz ae type b vaccine, PRP-T conjugate MICHELLE MAST PLANT CULTURE MANAGER Work Phone: [facility] 1998 poliovirus vaccine, inactivated MICHELLE MAST PLANT CULTURE MANAGER Work Phone: [facility] 1998 diphtheria, tetanus toxoids and acellular pertussis vaccine MICHELLE MAST PLANT CULTURE MANAGER Work Phone: [facility] 1998 haemophilus influenz ae type b conjugate and Hepatitis B vaccine MICHELLE MAST PLANT CULTURE MANAGER Work Phone: [facility] 1998 poliovirus vaccine, inactivated MICHELLE MAST PLANT CULTURE MANAGER Work Phone: [facility] 1998 hepatitis B vaccine, pediatric or pediatric/adolescent dosage MICHELLE MAST PLANT CULTURE MANAGER Work Phone: [facility] Payers Date Payer Category Payer Unknown [id number] 2024 Self-pay [id number] 2023 Unknown [id number] 2022 Unknown [id number] 2018 Unknown 2018 Unknown [employer] xxxxxxxxxxx 2018-Present [phone] xxxxxxxxxxx [id number]. [id number] 1998 Unknown [id number] 2..840.1.859794.3.579.2. 196 1998 Unknown [id number] .840.1.055071.3.579.2. 627 1998 Unknown [id number] 2.16.840.1.971955.3.579.2. 1998 Unknown [id number] 2.16.840.1.593362.3.579.2. 1998 Unknown [id number] 2.16.840.1.967809.3.579.2. 1998 Unknown [id number] 2.16.840.1.669890.3.579.2. 1998 Unknown [id number] 2.16.840.1.794708.3.579.2. 1998 Unknown [id number] 2.16840.1.773269.3.579.2. 1998 Unknown [id number] 2.840.1.907547.3.579.2. 1998 Unknown [id number] 2.840.1.657021.3.579.2. 1998 Unknown [id number] 2.16840.1.596422.3.579.2. 1998 Unknown [id number] 2.16840.1.445819.3.579.2. 1998 Unknown [id number] 2.16840.1.668189.3.579.2. 1998 Unknown [id number] 2.16840.1.846818.3.579.2. 1959 Unknown [id number] Private Health Insurance [facility] [id number] Unknown [id number] Unknown [id number] 2.16840.1.739808.3.579.2. 462 Unknown [id number] 2.840.1.581493.3.579.2. 462 Unknown [id number] 2.16.840.1.614609.3.579.2. 462 Unknown [id number] 2.16.840.1.088488.3.579.2. 462 Unknown [id number] 2.16.840.1.044485.3.579.2. 462 Unknown [id number] 2.16.840.1.972195.3.579.2. 462 Unknown [id number] 2.16.840.1.175658.3.579.2. 462 Unknown [id number] 2.840.1.047833.3.579.2. 462 Unknown [id number] 2.840.1.346934.3.579.2. 462 Unknown [id number] 2.840.1.688242.3.579.2. 462 Unknown [id number] 2.840.1.071955.3.579.2. 462 Unknown [id number] 2.840.1.539250.3.579.2. 462 Unknown [id number] 2.840.1.965889.3.579.2. 462 Unknown [id number] 2.840.1.793638.3.579.2. 462 Unknown [id number] 2.840.1.971559.3.579.2. 462 Unknown [id number] 2.840.1.543102.3.579.2. 462 Unknown [id number] 2.840.1.807086.3.579.2. 462 Unknown [id number] 2..840.1.925553.3.579.2. 462 Unknown [id number] 2.16840.1.561101.3.579.2. 462 Unknown [id number] 2.16840.1.439856.3.579.2. 462 Unknown [id number] 2.840.1.480133.3.579.2. 462 Unknown [id number] 2.16.840.1.928662.3.579.2. 462 Unknown [id number] 2.16.840.1.489481.3.579.2. 462 Unknown [id number] 2.16.840.1.666615.3.579.2. 462 Unknown [id number] 2.16.840.1.422537.3.579.2. 462 Unknown [id number] 2.16.840.1.007782.3.579.2. 462 Unknown [id number] 2..840.1.281029.3.579.2. 462 Social History Date Type Detail Facility Start: 10-24-2017 Tobacco smoking status NHIS Former smoker [facility] Sex Assigned At Not on file [facility] Start: 07-12-2018 End: 11-20-2024 Tobacco smoking status NHIS Never smoker [facility] Start: 02-22-2021 End: 02-04-2022 Tobacco smoking status NCIS Unknown if ever smoked [facility] Start: 06-12-2020 None [facility] Start: 06-12-2020 Spouse/ Signif icant Other [facility] Start: 2000 Sex Assigned At Female [facility] Tobacco smoking status No Smoking Status Entered [facility] Gender Identity Identifies as fe male gender (finding) [facility] Sexual Orientation Heterosexual (finding) [facility] NEGATED: Highlighted row Not [facility] Goals Date Patient Goal Desired Activity /State Functional Status Date Assessment Result Facility 08-07-2023 Functional Status Independent [facility] 06-26-2023 Functional Status Standard Safet y ID band on, Call device within reach, Bed in low position, Wheels locked, Upper/Half-Length side-rails up, Bedside Cart Locked, Safety level maintained [facility] 05-16-2023 Functional Status Independent [facility] 05-16-2023 Functional Status Independent [facility] 02-22-2023 Functional Status Independent [facility] 02-22-2023 Functional Status ID band on, Call device within reach, Bed in low position, Wheels locked, Upper/Half-Length side-rails up, Safety level maintained [facility] Mental Status Date Assessment Result Facility 08-07-2023 Mental Status Orientation Oriented x 4 [facility] 08-07-2023 Mental Status [facility] 06-26-2023 Mental Status Orientation Oriented x 4 [facility] 05-16-2023 Mental Status Orientation Oriented x 4 [facility] 05-16-2023 Mental Status [facility] 02-22-2023 Mental Status Orientation Oriented x 4 [facility] 02-22-2023 Mental Status [facility] 02-09-2022 Cognitive function Level Of Cons ciousness Awake;Alert;Appropriate;Follow s Commands [facility] Work Phone: 02-08-2022 Cognitive function Appropriate [facility] Work Phone: Clinical Notes 01-28-2022 to 12-04-2024 Note Date & Type Note Facility 12-04-2024 Note [facility] Medical Records Department [address] [place] [address] History Physical Exam 12/04/24 0722 MR#: [id number] Acct: [id number] Name: JUANITA PAULINO Rep #: [id number] : 2000 24 From: Luis Pandya MD PCP: JEFF VELASCO Status:[facility] Location: [place] [address] HPI - General General Date of Service: 12/04/24 Chief Complaint: biliary dyskinesia HPI Narrative JUANITA PAULINO, is a 24 F who presents today for elective robotic cholecystectomy. She describes periodic pain in the right upper quadrant along with nausea vomiting as well as diarrhea. She recently underwent an ultrasound of the right upper quadrant and this was negative for any stones or sludge. She then underwent a HIDA scan that showed no appreciable emptying of the gallbladder with CCK REPLACED BY [facility] Medical History (Updated 12/04/24 @ 07:[address] Luis Pandya MD) Biliary dyskinesia Wears glasses Depression Anxiety Cholinesterase deficiency Gastric reflux Non-smoker Biliary dyskinesia HSV-2 (herpes simplex virus 2) infection IBS (irritable bowel syndrome) Seasonal allergies Pre-eclampsia History of pre-term labor Infertility PCOS (polycystic ovarian syndrome) Home Medications ???Medication ???Instructions ???Recorded ???Last Taken ???Type valacyclovir 500 mg tablet 500 mg PO QDAY HSV 30 days #30 tab s 05/26/24 12/03/24 Rx calcium polycarbophil 625 mg 1,250 mg (2 x 625 mg) PO QDAY #180 07/30/24 12/03/24 Rx tablet (FiberCon) tabs rabeprazole 20 mg tablet,delayed 20 mg PO QDAY #90 tabs 07/30/24 Rx release buspirone 5 mg tablet 5 mg PO TID #90 tabs 08/13/2411/19 Rx fluoxetine 10 mg capsule (Prozac) 10 mg PO QDAY #30 caps 08/13/24 1 Rx metformin 500 mg tablet 500 mg PO BID #60 tabs 08/13/24 Rx dicyclomine 10 mg capsule 10 mg PO TID #90 caps 10/28/24 Rx spironolactone 25 mg tablet 50 mg PO DAILY 10/30/24 12/03/24 H istory tranexamic acid 650 mg tablet 1,300 mg PO TID PRN bleeding 10/3012/03/24 History medroxyprogesterone 10 mg tablet 10 mg PO .COMPLEX #10 tabs 5 12/03/24 Rx Allergy/AdvReac Type Severity Reaction Status Date / Time No Known Allergies Allergy Verified 12/04/24 06:20 Family History Mother Colon cancer 40s Thyroid disorder Arthritis Depression Type 2 diabetes mellitus Grandmother Arthritis Sister Hormone imbalance pcos Depression Endometriosis Grandmother Colon cancer Sister Endometriosis Grandfather Colon cancer Lung cancer Surgical History S/P section S/P nasal septoplasty History of strabismus surgery History of tonsillectomy Social History adopted: No household members: spouse and children housing: house number of children: 3 current occupational status: employed 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 travel: No sexually active: [...] do you feel safe at home: Yes Vital Signs Vital Signs Vital Signs: 12/04/24 06:27 12/04/24 06:27 12/04/24 06:48 Temperature 97.6 F L 97.6 F L Temperature Source Temporal Pulse Rate 81 81 Respiratory Rate 17 17 Respiratory Pattern Normal Blood Pressure 123/66 H 123/66 H Blood Pressure Mean 85 Blood Pressure Source Monitor Blood Pressure Position Semi-Fowlers Blood Pressure Location Left Arm Pulse Ox 98 98 Oxygen Delivery Method Room Air Room Air Weight Weight: 328 lb 7.82 oz Body Mass Index (BMI) 51.4 Physical Exam Const alert, oriented x3 and no apparent distress Results Lab / Micro Data 11/25/24 10:07 Labs: Laboratory Results - last 24 hr 12/04/24 06:15: Urine Test Negative Assessment Plan Assessment/Plan (1) Biliary dyskinesia: PLAN: Plan Plan is for robotic cholecystectomy today. Surgery will begin momentarily 12/04/24 0724 Cosigner Signature (if applicable): CC: Dr. Luis Pandya MD; JEFF VELASCO Signed [facility] 11-24-2024 Progress note [facility] 11-24-2024 Progress note Note Date/Time November 24, 2024 3:01pm [facility] [address], [address] [place] [address] OFFICE VISIT Date of Service: 11/24/24 MR#: [id number] Acct: [id number] Name: JUANITA PAULINO Rep #: [id number] : 2000 Provider: DELMIS Yu Age/Sex: 24/F Location: [facility] Status: Signed Intake Vital Signs 10/30/24 [...] - discuss OCP Chief Complaint: IUD removal General Service Officer Required: No Is patient in pain?: [...] status: employed 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 travel: No sexually active: [...] 3 months annual and med check 11/24/24 3755 <Electronically signed by Simin chavez MANAGER BEVERAGE MANAGER BEVERAGE-C> Date _ Simin Yu MANAGER BEVERAGE MANAGER BEVERAGE-C Cosigner Signature: Date (if applicable) CC: ~ [facility] Work Phone: 1(777) 533-564610-02-2025 Radiology Diagnostic study note [facility] Imaging Services [address] [address] Pelvic w/ Transvaginal MR#: [id number] Acct: [id number] Name: JUANITA PAULINO Rep #: [id number] : 2000 F 24 From: Renetta Love MD PCP: JEFF VELASCO Status: REG CLI Study:Pelvic w/ Transvaginal Date of Exam: 11/19/24 Exam# [id number] Ordering Dr: Teresa Lala MD PROCEDURE: PELVIC [...] is incompletely distended US/Pelvic w/ Transvaginal IMPRESSION: Motor Driver notes IUD in the lower uterine segment, it does not extend to the fundus. Simple left adnexal cyst, no specific follow-up No free fluid Reading Location: [id number] CC: Dr. Teresa Wilkinson MD; JEFF VELASCO ~ Hospice Care Sales Consultant: Signed [facility]09-02-2025 Progress [facility] [address] [place] [address] OFFICE VISIT Date of Service: 10/21/24 MR#: [id number] Acct: [id number] Name: JUANITA PAULINO Rep #: [id number] : 2000 Provider: Dr. Ruben Pandya MD Age/Sex: 24/F Location: [facility] Status: Signed Intake Vital Signs 10/14/24 10:56 10/21/24 14:55 Height 5 ft 7 in 5 ft 7 in Weight: 324 lb 1 oz 323 lb BMI 50.7 50.5 BP 123/80 H 120/81 H Blood Pressure Location Rt brachial Position Sitting Respiration 18 Intake Visit Reasons: ABNORMAL HIDA Chief Complaint: abn hida General Service Officer Required: No Is patient in pain?: [...] tablet 5 mg PO TID #90 tabs 08/13/ 5 10/21/24 Rx fluoxetine 10 mg capsule [...] device intrauterine ONCE 0 10/14/24 10/21/24 History REPLACED BY [facility] Medical History (Updated 10/21/24 @ 15:01 [...] status: 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 [address] [place] [address] OFFICE VISIT Date of Service: 10/21/24 MR#: [id number] Acct: [id number] Name: JUANITA PAULINO Rep #: [id number] : 2000 Provider: Dr. 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 Negative hepatobiliary scan, otherwise. Reading Location: [place] [address] CC: JEFF VELASCO; KO Ram ~ Hospice Care Sales Consultant: Signed [facility]08-03-2025 Radiology Diagnostic study note [facility] Imaging Services [address] [place], [place] [address] Pelvic w/ Transvaginal MR#: [id number] Acct: [id number] Name: JUANITA PAULINO Rep #: [id number] : 2000 F 24 From: Kiran Pierce MD PCP: JEFF VELASCO Status: REG CLI Study:Pelvic w/ Transvaginal Date of Exam: 09/19/24 Exam# [id number] Ordering Dr: Simin Yu MANAGER BEVERAGE MANAGER BEVERAGE-C PROCEDURE: PELVIC W/ TRANSVAGINAL 09/19/2024 REASON FOR [...] w/ Transvaginal IMPRESSION: As above. Reading Location: [facility] CC: DELMIS Yu; JEFF VELASCO ~ Hospice Care Sales Consultant: Signed [facility]06-17-2025 Radiology Diagnostic study note [facility] Imaging Services [address] [place], [place] [id number] ABD Limited w/ Elastography MR#: [id number] Acct: [id number] Name: JUANITA PAULINO Rep #: [id number] : 2000 F 24 From: Uzair Curran MD PCP: Dr. Tiffany Marks MD Status: REG CLI Study:ABD Limited w/ Elastography Date of Exa m: 08/05/24 Exam# [id number] Ordering Dr: Ashley Larose PROCEDURE: ABD LIMITED [...] 7.3 cm. US/ABD Limited w/ Elastography IMPRESSION: [id number]-[id number]-[id number] hepatic fibrosis. Splenomegaly. Hepatomegaly and diffuse fatty [...] measurement may be in question. Reading Location: [place] [address] CC: DELMIS Larose; Dr. Tiffany Marks MD ~ Hospice Care Sales Consultant: Signed [facility]06-11-2025 Evaluation note* Diagnosis Onset Date Resolution Status Admit Date Belching acute July 30 8:17am Diarrhea acute July 30 8:17am Fecal incontinence acute July 202024 8:17am Fecal urgency acute July 30, 2024 8:17am Heartburn acute July 30 8:17am Lower abdominal pain acute July 30, 2024 8:17am Nausea & vomiting acute July 302024 8:17am Steatosis, 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 [facility] Work Phone: 1([phone]) 429-223606-11-2025 Evaluation note* Diagnosis Onset Date Resolution Status Admit Date Belching acute July 30 8:17am Diarrhea acute July 30 8:17am Fecal incontinence acute July 202024 8:17am Fecal urgency acute July 30, 2024 8:17am Heartburn acute July 30 8:17am Lower abdominal pain acute July 30, 2024 8:17am Nausea & vomiting acute July 302024 8:17am Steatosis, liver deleted July 8:17am [facility] Work Phone: 1(846) 761-289806-11-2025 Evaluation note* Diagnosis Onset Date Resolution Status [...] Ovarian cyst, left acute August 192024 12:57pm [facility] Work Phone: 1(410) 723-187206-11-2025 Evaluation note* Diagnosis Onset Date Resolution Status [...] D deficiency acute September 05, 2024 7:57am [facility] Work Phone: 1(593) 379-126206-11-2025 Evaluation note* Diagnosis Onset Date Resolution Status [...] D deficiency acute September 05, 2024 7:57am [facility] Work Phone: 1(606) 168-657006-11-2025 Evaluation note* Diagnosis Onset Date Resolution Status [...] ovarian syndrome) acute September 18, 2024 8:33am [facility] Work Phone: 1(242) 134-949606-11-2025 Evaluation note* Diagnosis Onset Date Resolution Status [...] 2024 10:52am Biliary dyskinesia acute Sept2024 2:35pm [facility] Work Phone: 1(287) 120-413006-11-2025 Evaluation note* Diagnosis Onset Date Resolution Status [...] 14, 2024 10:52am Obesity acute October 14, 2 025 10:52am Encounter for IUD insertion noneacti ve October 14, 2024 10:52am Biliary dyskinesia acute Sept2024 2:35pm Biliary dyskinesia acute Septem 2024 7:59am Metabolic dysfunction-associated steatotic liver disease (MASLD) acute October 30, 2024 7:59am Obesity acute October 7:59am Vitamin D deficiency acute Oct ember 2024 7:59am Contraceptive management deleted November 24, 2024 2:37pm Encounter for IUD removal noneactive November 24, 2024 2:37pm [facility] Work Phone: 1([phone]) 297-310106-05-2025 Radiology Diagnostic study note [facility] Imaging Services [address] [place] [address] 920021 Transvaginal Non- MR#: [id number] Acct: [id number] Name: JUANITA PAULINO Rep #: [id number] : 2000 F 24 From: Jacob Rodriguez MD PCP: Dr. Tiffany Marks MD Status: REG ER Study:Transvaginal Non- Date of Exam: 07/24/24 Exam# [id number] Ordering Dr: Oren Maldonado DO PROCEDURE: TRANSVAGINAL [...] cyst. 2. Negative examination, otherwise. Reading Location: [id number] CC: Dr. Tiffany Marks MD; Dr. Zurdo Maldonado DO ~ Hospice Care Sales Consultant: Signed [facility]06-18-2024 Hospital Discharge instructions Patient Education 08/07/2023 12:39:34 [...] thin towel or cloth. You may use xvjd-cxx-[id number] pain medicine (NSAIDS or nonsteroidal anti- inflammatory [...] or is irritated You re-injure your ankle [id number] [employer]. [address] [place] [address], [place] [address]. All rights reserved. This information is not intended as a substitute for professional medical care. Always follow yourhealthcare professional's instructions. Follow Up Care 08/07/2023 11:37:04 With:HARRIET BARAHONA Address: [address] [facility] [address] [place] [address]- [phone] Business (1) When:2-4 days Comments:Return to ED if symptoms worsen With:MICHELLE MELLO Address: [address] [place] [phone] [phone] Business (1) When:2-4 days [facility] 06-18-2024 Note Discharge Instructions Thank you for allowing [facility] to assist you with your healthcare needs. The following is importantdischarge information regarding your hospital visit. Diagnosis from Today's Visit Sprain of left ankle What to Do Next Instructions from Your Care Team Discharge Home Equipment - Ordered -- Crutches, month(s), 08/07/23 12:37:00 EDT Post Acute Orders No qualifying data available. You Need to Schedule the Following Appointments Follow Up with HARREIT BARAHONA When:Within 2-4 days Where:[facility] [address] [place] [address]- [phone] Business (1) Additional Information: Return to ED if symptoms worsen Follow Up with MICHELLE MELLO When:Within 2-4 days Where:[address] [place] [address] [phone] Business (1) Allergies NKA Medications Please ask [...] thin towel or cloth. You may use dyme-cyh-ynyykud pain medicine (NSAIDS or nonsteroidal anti- inflammatory [...] or is irritated You re-injure your ankle 5754-5517 [employer]. [address] [place] [address]. All rights reserved. This information is not intended as a substitute for professional medical care. Always follow yourhealthcare professional's instructions. Additional Information VACCINATE! IT SAVES LIVES! Members of the community who have not yet received the COVID-19 vaccine and would like to receive it can visit one of [facility] vaccine clinics. There are many vaccine clinic locations within the [facility]. For locations and available times, please visit www.[email or web address].[place].gov/. It is important to note that some COVID mobile vaccine clinics are held outdoors and may be canceled in rainy or stormy conditions. To learn more about pediatric vaccinations (ages 5-11), we invite you to visit the [facility] webpage. https://www.[facility].org/pages/8961-Lbzwj-Sbxzcwttbqr-Ohnydfvhfu-Jxoaj-Ylt stions.htmlTo learn more about the COVID-19 vaccine, we invite you to visit the CDC website for a list of frequently asked questions. https://www.cdc.gov/coronavirus/2019-ncov/vaccines/faq.html [facility] Patient Portal Access Instructions: Stay connected with your healthcare team and access your personal medical information anytime with the [facility] Patient Portal. If you would like a full copy of your medical records please contact the [facility] Medical Records Department Sunday through Sunday between 8a.m. and 4:30p.m. Please follow the directions below to access the portal: 1.Access the email account you provided upon registration to the [facility].2.Look for an invitation email from [facility].3.Open the email and access the invitation link: Accept Invitation to [facility]4.Fill in the required denson to create your [...] you will allow to register on the [facility] Patient Portal for access to your information. You can also access the [facility] Patient Portal on the [employer]. Simply click on "Health Records" under "HealthData" and then click on the [facility] logo. HOW TO SAFELY DISPOSE OF PRESCRIPTION [...] Call your local pharmacy or go to http://Cavis microcaps.Watly BV/5L6Ym3a to find one close to you.3.Make use of household items: Use cat litter or old coffee grounds to dispose medications if other options arenot available. Mix your drugs with these household products, seal them in an airtight container andthrow it into the garbage. Call [facility]: [phone] to be sure your drugs can be [...] aware that I should contact my doctor. Patient/Laboratory Sample Carrier Signature: Date/Time: Relationship to Patient: Witness Name/Signature: Date/Time: [facility]06-18-2024 Note ORIGINAL HISTORY: Pain COMPARISON: No FINDINGS: [...] Date: 08/07/2023 12:22:15 PM [facility]ing [facility] [id number] Hospital Discharge instructions Patient Education 06/26/2023 14:58:40 [...] or water and you are getting dehydrated 3301-9497 [employer]. [address] [place] [address]. All rights reserved. This information is not intended as a substitute for professional medical care. Always follow yourhealthcare professional's instructions. Follow Up Care 06/26/2023 12:01:13 With:Go to emergency room if symptoms worsen Address:Unknown When:2-4 days With:MICHELLE MELLO Address: [address] [facility] [place] [address] [phone] When:2-4 days [facility] 05-07-2024 Emergency department Discharge summary Discharge Instructions Thank you for allowing [facility] to assist you with your healthcare needs. [...] MICHELLE MELLO When Within 2-4 days Where: [address] [place] [address] [place] [address]- [phone] Allergies NKA Medications Please ask your primary [...] or water and you are getting dehydrated 7195-1876 [employer]. [address] [place] [address]. All rights reserved. This information is not intended as a substitute for professional medical care. Always follow yourhealthcare professional's instructions. Additional Information VACCINATE! IT SAVES LIVES! Members of the community who have not yet received the COVID-19 vaccine and would like to receive it can visit one of [facility] vaccine clinics. There are many vaccine clinic locations within the [facility]. For locations and available times, please visit www.[email or web address]/. It is important to note that some COVID mobile vaccine clinics are held outdoors and may be canceled in rainy or stormy conditions. To learn more about pediatric vaccinations (ages 5-11), we invite you to visit the [facility] webpage. https://www.[facility].org/pages/1066-Vnofr-Lxmstmagdxn-Srjxdxrkzw-Mrpjg-Kxr stions.htmlTo learn more about the COVID-19 vaccine, we invite you to visit the CDC website for a list of frequently asked questions. https://www.cdc.gov/coronavirus/2019-ncov/vaccines/faq.html [facility] Patient Portal Access Instructions: Stay connected with your healthcare team and access your personal medical information anytime with the [facility] Patient Portal. If you would like a full copy of your medical records please contact the [facility] Medical Records Department Sunday through Sunday between 8a.m. and 4:30p.m. Please follow the directions below to access the portal: 1.Access the email account you provided upon registration to the [facility].2.Look for an invitation email from [facility].3.Open the email and access the invitation link: Accept Invitation to [facility]4.Fill in the required denson to create your account. Sign into [email or web address] with your username and password that you [...] you will allow to register on the [facility] Patient Portal for access to your information. You can also access the [facility] Patient Portal on the [employer]. Simply click on "Health Records" under "HealthData" and then click on the [facility] logo. [...] Call your local pharmacy or go to http://Cavis microcaps.Watly BV/[email or web address] to find one close to you.3.Make use of household items: Use cat litter or old coffee grounds to dispose medications if other options arenot available. Mix your drugs with these household products, seal them in an airtight container andthrow it into the garbage. Call [facility]: [phone] to be sure your drugs can be [...] aware that I should contact my doctor. Patient/Laboratory Sample Carrier Signature: Date/Time: Relationship to Patient: Witness Name/Signature: Date/Time: [facility]05-07-2024 Note ORIGINAL EXAMINATION: COMPLETE ABDOMINAL ULTRASOUND06/26/2023 1:33 [...] Date: 06/26/2023 2:29:44 PM Ordering Provider[facility] Evaluation + Plan note Future Scheduled Tests Laboratory* Stool Gastrointestinal Panel 06/25/23 [facility] 03-27-2024 Hospital Discharge instructions Patient Education 05/16/2023 17:57:52 Dizziness, Uncertain Cause Dizziness (Uncertain Cause) Dizziness is a common symptom. It may be described as lightheadedness, spinning, or feeling like you are going to faint. Dizziness can have many causes. Be sure to tell the healthcare provider about: All medicines you take, including prescription, nths-acn-mpblsve, herbs, and supplements Any other symptoms you [...] Chest, arm, neck, back, or jaw pain 7019-2090 [employer]. [address] [place] [address]. All rights reserved. This information is not intended as a substitute for professional medical care. Always follow yourhealthcare professional's instructions. Follow Up Care 05/16/2023 16:41:43 With:MICHELLE MELLO Address: [address] [place] [address] [phone] When:2-4 days [facility] 03-27-2024 Note Discharge Instructions Thank you for allowing [facility] to assist you with your healthcare needs. The following is importantdischarge information regarding your hospital visit. Diagnosis from Today's Visit Dizziness Dizziness What to Do Next Instructions from Your Care Team No qualifying data available. Post Acute Orders No qualifying data available. You Need to Schedule the Following Appointments Follow Up with MICHELLE MELLO When Within 2-4 days Where: [address] [place] [phone] Allergies NKA Medications Please ask your primary [...] about: All medicines you take, including prescription, urna-nib-zwitqdj, herbs, and supplements Any other symptoms you [...] Chest, arm, neck, back, or jaw pain 4302-8048 [employer]. [address] [place] [address]. All rights reserved. This information is not intended as a substitute for professional medical care. Always follow yourhealthcare professional's instructions. Additional Information VACCINATE! IT SAVES LIVES! Members of the community who have not yet received the COVID-19 vaccine and would like to receive it can visit one of [facility] vaccine clinics. There are many vaccine clinic locations within the [facility]. For locations and available times, please visit www.[email or web address].gov/. It is important to note that some COVID mobile vaccine clinics are held outdoors and may be canceled in rainy or stormy conditions. To learn more about pediatric vaccinations (ages 5-11), we invite you to visit the [facility] webpage. https://www.[facility].org/pages/8896-Djsrn-Kzscinvvfez-Tsqzfevtxn-Xgtea-Lvj stions.htmlTo learn more about the COVID-19 vaccine, we invite you to visit the CDC website for a list of frequently asked questions. https://www.cdc.gov/coronavirus/2019-ncov/vaccines/faq.html [facility] Patient Portal Access Instructions: Stay connected with your healthcare team and access your personal medical information anytime with the [facility] Patient Portal. If you would like a full copy of your medical records please contact the [facility] Medical Records Department Sunday through Sunday between 8a.m. and 4:30p.m. Please follow the directions below to access the portal: 1.Access the email account you provided upon registration to the [facility].2.Look for an invitation email from [facility].3.Open the email and access the invitation link: Accept Invitation to [facility]4.Fill in the required denson to create your account. Sign into [email or web address] with your username and password that you [...] you will allow to register on the [facility] Patient Portal for access to your information. You can also access the [facility] Patient Portal on the [employer]. Simply click on "Health Records" under "Proximetry" and then click on the [employer] logo. HOW TO SAFELY DISPOSE OF PRESCRIPTION [...] Call your local pharmacy or go to http://Cavis microcaps.Watly BV/3Z1Uw0k to find one close to you.3.Make use of household items: Use cat litter or old coffee grounds to dispose medications if other options arenot available. Mix your drugs with these household products, seal them in an airtight container andthrow it into the garbage. Call [facility]: [phone] to be sure your drugs can be [...] aware that I should contact my doctor. Patient/Laboratory Sample Carrier Signature: Date/Time: Relationship to Patient: Witness Name/Signature: Date/Time: [facility]03-27-2024 NoteSinus rhythm Borderline intraventricular conduction delay Electronic Signature: IVANA LANGE MD 05/16/2023 17:17:25[facility] 02-13-2024 Hospital Discharge instructions Patient Education 04/03/2023 [...] foods again, start with small amounts of dlvv-vc-mmuvfs, low- fat foods. These include apple sauce, [...] increase stomach acid. Don't use aspirin or eefq-hph-svjromk pain and fever medicines, if possible. This includes nonsteroidal anti-inflammatory drugs (NSAIDs). Lose excess weight. Finish eating at least 2 hours before you go to bed or lie down. Raise the head of your bed. 3811-0506 [employer]. [address] [place] [address]. All rights reserved. This information is not intended as a substitute for professional medical care. Always follow yourhealthcare professional's instructions. Follow Up Care 04/03/2023 14:09:03 With:JERROD RUANO DO Address: [address] [place] [phone] [phone] When:2-4 days [facility] 02-13-2024 Note Discharge Instructions Thank you for allowing [facility] to assist you with your healthcare needs. The following is importantdischarge information regarding your hospital visit. Diagnosis from Today's Visit Abdominal pain Abdominal pain What to Do Next Instructions from Your Care Team No qualifying data available. Post Acute Orders No qualifying data available. You Need to Schedule the Following Appointments Follow Up with JERROD RUANO DO When Within 2-4 days Where: [address] [place] [phone] Allergies NKA Medications Please ask your primary doctor or pharmacist before taking any other medication not listed, including over the counter drugs, herbal medications, vitamins and or supplements as they may interact [facility] medications. What How Much When Why [...] or retail pharmacies. Medication Leaflets ondansetron (oral) (erna noonan) What is the most important information [...] may report side effects to FDA at 1-220-DIO-9227. What other drugs will affect ondansetron? Ondansetron [...] interact with ondansetron. This includes prescription and npqe-zas-pbknvae medicines, vitamins, and herbal products. Give a [...] to ensure that the information provided by [employer]. ('[employer]') is accurate, up-to-date, and complete, but no guarantee is made to that effect. Drug information contained herein may be time sensitive. [employer] information has been compiled for use by healthcare practitioners and consumers in the [place] and therefore [employer] does not warrant that uses outside of the [place] are appropriate, unless specifically indicated otherwise. Bdays drug information does not endorse drugs, diagnose patients or recommend therapy. Bdays drug information isan informational resource designed to [...] effective or appropriate for any given patient. [employer] does not assume any responsibility for any aspect of healthcare administered with the aid of information [employer] provides. The information contained herein is not intended to cover all possible uses, directions, precautions, warnings, drug interactions, allergic reactions, or adverse effects. If you have questions about the drugs you are taking, check with your doctor, nurse or pharmacist. Copyright 1491-9234 [employer]. Version: 16.. Revision Date: 09/21/2022. Education Materials [...] foods again, start with small amounts of wkjr-li-tyfygo, low- fat foods. These include apple sauce, [...] increase stomach acid. Don't use aspirin or ppla-eln-woucgoy pain and fever medicines, if possible. This includes nonsteroidal anti-inflammatory drugs (NSAIDs). Lose excess weight. Finish eating at least 2 hours before you go to bed or lie down. Raise the head of your bed. 7172-4743 [employer]. [address] [place] [address], [place] [address]. All rights reserved. This information is not intended as a substitute for professional medical care. Always follow yourhealthcare professional's instructions. Additional Information VACCINATE! IT SAVES LIVES! Members of the community who have not yet received the COVID-19 vaccine and would like to receive it can visit one of [facility] vaccine clinics. There are many vaccine clinic locations within the [facility]. For locations and available times, please visit www.[email or web address].[place].gov/. It is important to note that some COVID mobile vaccine clinics are held outdoors and may be canceled in rainy or stormy conditions. To learn more about pediatric vaccinations (ages 5-11), we invite you to visit the [facility] webpage. https://www.[facility].org/pages/7390-Frmtq-Gfeaksjuccd-Bxjlzcliso-Icitv-Olk stions.htmlTo learn more about the COVID-19 vaccine, we invite you to visit the CDC website for a list of frequently asked questions. https://www.cdc.gov/coronavirus/2019-ncov/vaccines/faq.html [facility] Patient Portal Access Instructions: Stay connected with your healthcare team and access your personal medical information anytime with the [facility] Patient Portal. If you would like a full copy of your medical records please contact the [facility] Medical Records Department Sunday through Sunday between 8a.m. and 4:30p.m. Please follow the directions below to access the portal: 1.Access the email account you provided upon registration to the [facility].2.Look for an invitation email from [facility].3.Open the email and access the invitation link: Accept Invitation to [facility]4.Fill in the required denson to create your [...] you will allow to register on the [facility] Patient Portal for access to your information. You can also access the [facility] Patient Portal on the [employer]. Simply click on "Health Records" under "Proximetry" and then click on the [facility] logo. HOW TO SAFELY DISPOSE OF PRESCRIPTION [...] Call your local pharmacy or go to http://Cavis microcaps.Watly BV/2C3Ra9r to find one close to you.3.Make use of household items: Use cat litter or old coffee grounds to dispose medications if other options arenot available. Mix your drugs with these household products, seal them in an airtight container andthrow it into the garbage. Call [facility]: [phone] to be sure your drugs can be [...] aware that I should contact my doctor. Patient/Laboratory Sample Carrier Signature: Date/Time: Relationship to Patient: Witness Name/Signature: Date/Time: [facility]02-13-2024 Note ORIGINAL EXAMINATION: CT OF THE ABDOMEN [...] Sign Date: 04/03/2023 5:42:34 PM Ordering Provider[facility]02-13-2024 Note ORIGINAL EXAMINATION: LIMITED ABDOMINAL ULTRASOUND04/03/2023 [...] Sign Date: 04/03/2023 4:32:24 PM Ordering Provider: [facility]01-06-2024 Note. MICRO - Microbiology PROCEDURE: Urine Culture [*1] SOURCE: Urine, Clean Catch BODY SITE: COLLECTED DATE/TIME: 02/22/2023 18:16 EST RECEIVED DATE/TIME: 02/23/2023 15:03 EST START DATE/TIME: 02/23/2023 15:03 EST FREE TEXT SOURCE: FINAL REPORTS Final Report [] Verified Date/Time/Personnel: 02/24/2023 14:44 EST 50,000 - 100,000 cfu/ml Mixed growth consistent with normal urogenital isaac. Performing Locations *1: This test was performed at: [facility], [address] [place] [address], [facility] , [facility] ([place])02-22-2023 Note Discharge Instructions Thank you for allowing [facility] to assist you with your healthcare needs. [...] tests. Tell any doctor who treats you thatyou are using cephalexin. Store the tablets and [...] may report side effects to FDA at 2-221-OUC-9585. What other drugs will affect cephalexin? Tell your doctor about all your other medicines, especially: metformin; or probenecid. This list is not complete. Other drugs may affect cephalexin, including prescription and hrfc-yjf-ycrlyda medicines, vitamins, and herbal products. Not all [...] to ensure that the information provided by [employer]. ('[employer]') is accurate, up-to-date, and complete, but no guarantee is made to that effect. Drug information contained herein may be time sensitive. [employer] information has been compiled for use by healthcare practitioners and consumers in the [place] and therefore [employer] does not warrant that uses outside of the [place] are appropriate, unless specifically indicated otherwise. [employer]'s drug information does not endorse drugs, diagnose patients or recommend therapy. [facility] drug information isan informational resource designed to [...] effective or appropriate for any given patient. [facility] does not assume any responsibility for any aspect of healthcare administered with the aid of information [facility] provides. The information contained herein is not intended to cover all possible uses, directions, precautions, warnings, drug interactions, allergic reactions, or adverse effects. If you have questions about the drugs you are taking, check with your doctor, nurse or pharmacist. Copyright 8664-0164 [facility] [employer]. Version: .. Revision Date: 09/20/2022. Education Materials [...] with you to plan treatment as needed. 2882-2054 [employer]. [address] [place] [address], [place] [address]. All rights reserved. This information is not [...] foods again, start with small amounts of wfdy-po-ffzyxa, low- fat foods. These include apple sauce, [...] increase stomach acid. Don't use aspirin or ykit-vfo-dtyyrzp pain and fever medicines, if possible. This includes nonsteroidal anti-inflammatory drugs (NSAIDs). Lose excess weight. Finish eating at least 2 hours before you go to bed or lie down. Raise the head of your bed. 7280-2283 [employer]. [address] [place] [address]. All rights reserved. This information is not intended as a substitute for professional medical care. Always follow yourhealthcare professional's instructions. Additional Information VACCINATE! IT SAVES LIVES! Members of the community who have not yet received the COVID-19 vaccine and would like to receive it can visit one of [facility] vaccine clinics. There are many vaccine clinic locations within the [facility]. For locations and available times, please visit www.[email or web address].[place].gov/. It is important to note that some COVID mobile vaccine clinics are held outdoors and may be canceled in rainy or stormy conditions. To learn more about pediatric vaccinations (ages 5-11), we invite you to visit the [facility] webpage. https://www.[facility].org/pages/4399-Vixww-Hbxwgattqrc-Zajpmahtop-Ndnsq-Hba stions.htmlTo learn more about the COVID-19 vaccine, we invite you to visit the CDC website for a list of frequently asked questions. https://www.cdc.gov/coronavirus/2019-ncov/vaccines/faq.html [facility] Patient Portal Access Instructions: Stay connected with your healthcare team and access your personal medical information anytime with the [facility] Patient Portal. If you would like a full copy of your medical records please contact the [facility] Medical Records Department Sunday through Sunday between 8a.m. and 4:30p.m. Please follow the directions below to access the portal: 1.Access the email account you provided upon registration to the [facility].2.Look for an invitation email from [facility].3.Open the email and access the invitation link: Accept Invitation to [facility]4.Fill in the required denson to create your account. Sign into www.Pinterest with your username and password that you [...] you will allow to register on the [facility] Patient Portal for access to your information. You can also access the [employer] Patient Portal on the [employer] perez. Simply click on "Health Records" under "HealthData" and then click on the [employer] logo. [...] Call your local pharmacy or go to [email or web address] to find one close to you.3.Make use of household items: Use cat litter or old coffee grounds to dispose medications if other options arenot available. Mix your drugs with these household products, seal them in an airtight container andthrow it into the garbage. Call [facility]: [phone] to be sure your drugs can be [...] aware that I should contact my doctor. Patient/Laboratory Sample Carrier Signature: Date/Time: Relationship to Patient: Witness Name/Signature: Date/Time: [facility]01-04-2024 Hospital Discharge instructions Patient Education 02/22/2023 18:12:49 [...] with you to plan treatment as needed. [id number] [employer]. [address] [place] [address]. All rights reserved. This information is not [...] foods again, start with small amounts of tgsn-br-slitgn, low- fat foods. These include apple sauce, [...] increase stomach acid. Don't use aspirin or cwcz-zqg-ssklbve pain and fever medicines, if possible. This includes nonsteroidal anti-inflammatory drugs (NSAIDs). Lose excess weight. Finish eating at least 2 hours before you go to bed or lie down. Raise the head of your bed. [id number] [employer]. [address] [place] [address]. All rights reserved. This information is not intended as a substitute for professional medical care. Always follow yourhealthcare professional's instructions. Follow Up Care 02/22/2023 14:39:32 With:Go to emergency room if symptoms worsen Address:Unknown When:2-4 days With:PHYSICIAN, NONE Address:Unknown When:2-4 days [facility] 01-01-2023 Hospital Discharge instructions Additional Instructions Regular diet. Okay to shower. No lifting over 25 pounds for 2 to 3 weeks. No tub baths for 2 weeks. No intercourse for 4 to 6 weeks. Call if fevers, chills, chest pain, shortness of breath. Follow-up 1 week blood pressure check, [facility] Phone: [phone] 372-876112-11-2022 Note Attestation signed by Sarina Carey MD at 01/31/2022 2:50 PM [facility] See note from today no changes in cervix precautions discussed and recommend follow up with Dr. Negrita Anglin tomorrow as scheduled. The patient was told if any concerns we are happy to see her back here at [facility] Follow up with OB as instructed Precautions addressed Stable on discharge without change in cervix Questions answered Recommend twice weekly testing with weekly labs given her pre-eclampsia diagnosis and delivery is recommended at 37 weeks unless indicated sooner. Department of Obstetrics and Gynecology [facility] Discharge Summary Admission on 01/28/2022 10:17 AM Juanita Paulino is a 21 y.o. at 33w6d with Di/Di twins who was transferred to [facility] from [place] for PTL. Patient initially presented c/o CTX 01/27 and was closed, overnight at [place] made change from 2 --> 3cm. She was given BMZx1 and procardia prior to transport. Upon arrival to [facility] patient was found to be 4/70/-3 but comfortable. She was admitted for further observation and continued tocolysis. Patient received a second dose of BMZ in addition to 36 hours of tocolysis. Zhanna met criteria for gHTN v PreEwoSF based on mild range blood pressures >4 hours apart. Initally UPC at [place] was elevated to 0.4 but on repeat at [facility], UPC was 0.25. No anti-hypertensive medications were [...] of delivery Follow up appointment with your doctor/brand sales consultant - Keep next scheduled appointment on 02/01/2022 Activity - Normal Activity Call your doctor/brand sales consultant if you have: - leaking fluid - vaginal bleeding - regular contractions: More than 6 contractions in one hour - decreased movement - worsening abdominal (belly) pain - headache, blurry vision, increased swelling, upper abdominal pain Kyaw Andrews MD on 01/31/2022 at 2:25 [facility] 01-28-2022 NotePatient: Juanita Paulino Procedure Information [...] Additional Equipment Requests Regional/Neuraxial Equipment: spinal anesthetic [facility] 01-28-2022 Note Attestation signed by Willow Moscoso DO at 01/29/2022 3:21 PM Hospital Care (Independent): I independently saw and evaluated the patient. I agree with the findings and plan of care as documented in the resident's note. Pt and partner seen 01/28/22. Pt is a 21 y.o. yo at 33w5d transported from [facility] by Dr. Negrita Anglin due to labor, nicolasa twins. Made change from closed to 2 cm dilation at [place]. Given BMZ. Started on Procardia after cervical [...] Currently with di/di twins and presented to [place] last night c/o CTX. Made cervical change from closed to 2cm before transport to [facility]. Was given BMZx1 12 0000 and Procardia prior to discharge. Admitted to [facility] for higher level of care. Transport: Yes [...] 36.6 ?C (97.9 ?F) (more content not included)...[facility] Evaluation + Plan note Future Appointments Appointment Date:02/23/2023 04:00:00 PM Scheduled Provider:MICHELLE MELLO Location:[facility] Appointment Type: MANAGER BEVERAGE SS Diagnostic Tests Pending * Urine Culture 02/22/23 [facility] Evaluation + Plan note Future Appointments Appointment Date:04/20/2023 04:00:00 PM Scheduled Provider:MICHELLE MELLO Location:[facility] Appointment Type:[facility] Evaluation + Plan note Future Appointments Appointment Date:04/17/2023 02:00:00 PM Scheduled Provider:MEAGHAN YOUNGER Location: [facility] Appointment Type: MANAGER BEVERAGE Appointment Date:04/20/2023 04:00:00 PM Scheduled Provider:MICHELLE MELLO Location:[facility] Appointment Type:[facility] Evaluation + Plan note Future Appointments Appointment Date:05/23/2023 09:00:00 AM Scheduled Provider:MICHELLE MELLO Location:[facility] Appointment Type: OV Appointment Date:08/06/2023 04:00:00 PM Scheduled Provider:MICHELLE MELLO Location:[facility] Appointment Type:PC OV [facility] Evaluation + Plan note Future Appointments Appointment Date:05/23/2023 09:00:00 AM Scheduled Provider:MICHELLE MELLO Location:[facility] Appointment Type:PC OV Appointment Date:08/06/2023 04:00:00 PM Scheduled Provider:MICHELLE MELLO Location:[facility] Appointment Type:PC OV Diagnostic Tests Pending * Food Allergy Profile 05/15/23 [facility] evaluation + Plan note Future Appointments Appointment Date:08/06/2023 04:00:00 PM Scheduled Provider:MICHELLE MELLO Location:[facility] Appointment Type:PC OV Future Scheduled Tests Laboratory* Stool Gastrointestinal Panel 06/25/23 Radiology* US Abdomen Complete 06/25/23 * US Transvaginal Non OB 06/25/23 [facility] Evaluation + Plan note Future Appointments Appointment Date:07/09/2023 01:00:00 PM Scheduled Provider:MICHELLE MELLO Location:[facility] Appointment Type:PC OV ED Follow Up Appointment Date:08/06/2023 04:00:00 PM Scheduled Provider:MICHELLE MELLO Location:[facility] Appointment Type:PC OV Future Scheduled Tests Laboratory* Stool Gastrointestinal Panel 06/25/23 [facility] evaluation noteNo assessment information available [facility] Work Phone: evaluation note* Diagnosis Onset Date Resolution Status Vaginal bleeding acute [facility] Work Phone: evaluation note* Diagnosis Onset Date Resolution Status Vaginal bleeding acute Acute postoperative pain acu te delivery delivered resolved Severe pre-eclampsia resolve d [facility] Work Phone: evaluation note* Diagnosis Onset Date Resolution Status Admit Date Belching acute July 30 8:17am Diarrhea acute July 30 8:17am Fecal incontinence acute July 202024 8:17am Fecal urgency acute July 30, 2024 8:17am Heartburn acute July 30 8:17am Lower abdominal pain acute July 30, 2024 8:17am Nausea & vomiting acute July 302024 8:17am Steatosis, 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 [facility] Work Phone: Hospital course Narrative No data available for this section [facility] Hospital Discharge instructions Additional Instructions Chuck Anglin's office will call patient tomorrow to set up an appointment for next week.[facility] Work Phone: Hospital Discharge instructions No data available for this section [facility] Progress note No data available for this section [facility] Reason for referral (narrative)No reason for referral [facility] Work Phone: Summary Purpose Family History [...] Will No February 22 10:57am Power of Plisse Machine Operator No February 22 10:57am Advance Directive Response Recorded Date/ Time Living Will No February 22 9:57am Power of Plisse Machine Operator No February 22 9:57am Advance Directive Response Recorded Date/ Time Living Will No Wu 10th, 2 022 12:36am Power of Plisse Machine Operator No January 28, 2022 12:36am Advance Directive Response Recorded Date/ Time Living Will No February 04 6:42pm Power of Plisse Machine Operator No February 04, 2022 6:42pm Advance Directive Response Recorded Date/ Time Living Will No February 04 7:42pm Power of Plisse Machine Operator No February 04, 2022 7:42pm Advance Directive Response Recorded Date/ Time Do you have a Healthcare Power of Plisse Machine Operator? No July 24, 2024 8:45am Instructions * Patient Instructions - Lydia Flynn Pallavi, - 10/24/2017 2:52 PM EDT Formatting of [...] The doctor may recommend that you take lgeb-exz-wvcsree medicine, such as loperamide (Imodium), if you [...] Review Problems (Active Problems Only) (SNOMED CT: 348200822, Onset: 04/12/18) Allergic rhinitis caused by pollens (SNOMED CT: 5322491386, Onset: --) ADHD (SNOMED CT: [id number], Onset: --) Polycystic ovary syndrome (SNOMED CT: [id number], Onset: --) Depression (SNOMED CT: 485473574, Onset: --) Excessive growth of facial hair (SNOMED CT: 680033629, Onset: --) Premature rupture of membranes (SNOMED [...] reason, you feel that you cannot rateus "Very Good" or "5" for the service you received today, please let us know prior to your discharge. Please follow up with your family doctor or one of your choosing. You may find a provider through the [employer] Physician Referral Service by calling [phone] or by visiting [email or web address] Thank You for choosing the [facility] Emergency Department! * Attachments The following attachments cannot be sent through Care Everywhere. * Abdominal Pain, Early (Sami) documented in this encounter Chief Complaint and [...] delivered Severe pre-eclampsia Chief Complaint Admit Date Differential NEW EMPLOYEE PHYSICAL June 05 2:09pm EORDERS July 16, 2024 3:02p m Chief Complaint Admit Date BMS NEW [...] 2024 8:17 am Chief Complaint Admit Date Differential NEW EMPLOYEE PHYSICAL June 05 2:09pm EORDERS July 16, 2024 3:02p m VAG BLEEDING July 24, 2024 8:23a m NEW EMPLOYEE July 29, 2024 4:02 pm NEW PATIENT July 30, 2024 8:17 am INT LAB ORDERS July 30, 2024 3:34 pm DIARRHEA, FECAL URGENCY, FECAL INCONTINE NCE, BELCH August 05, 2024 7:22am Chief Complaint Admit Date Differential NEW EMPLOYEE PHYSICAL June 05 2:09pm EORDERS [...] 3:34 pm DIARRHEA, FECAL URGENCY, FECAL INCONTINE NCE BELCH August 05, 2024 7:22am MED REFILL-OK [...] PER DR MARKS Meli 25th, 2025 2:23pm Bleeding September 01, 2024 12:5 7pm [...] 2:23pm Establishing care with new doctor, patricia frenhc for August 13, 2024 2:23pm PCOS (polycystic [...] 7:59am HEAVY BLEEDING AFTER IUD INSERTION Octob er 2024 4:27pm IUD removal per SM - discuss OCP November 24, 2024 2:37pm [...] section and content) DATE CREATED AUTHOR 08/10/2017 [facility] DATE CREATED AUTHOR AUTHOR'S ORGANIZ ATION 11/01/2017 [facility] DATE CREATED AUTHOR AUTHOR'S ORGANIZ ATION 11/10/2017 [facility] DATE CREATED AUTHOR AUTHOR'S ORGANIZ ATION 07/23/2018 [facility] DATE CREATED AUTHOR AUTHOR'S ORGANIZ ATION 01/23/2019 [place] DATE CREATED AUTHOR AUTHOR'S ORGANIZ ATION 02/09/2022 [facility] DATE CREATED AUTHOR AUTHOR'S ORGANIZ ATION 09/04/2023 [facility] ([place]) DATE CREATED AUTHOR AUTHOR'S ORGANIZ ATION 01/06/2024 [facility] DATE CREATED AUTHOR AUTHOR'S ORGANIZ ATION 12/10/2024 [facility] Reason for Visit (unrecogniz ed section and content) Reason Comments Abdominal Pain Pt complaining of lo wer abd pain that is "cramping". States pain started approximately 1 hour ago. [...] Active Start: August 05, 2024 Ashley Larose NP-C Attending Provider Active Start: August 05, 2024 Ashley Larose NP-C Referring [...] July 30, 2024 End: July 30, 2024 JANIE CrenshawC Attending Provider Active Start: July 30, 2024 [...] 2024 End: July 30, 2024 Ashley Larose MANAGER BEVERAGE-C Referring Provider Active Start: July 30, 2024 [...] End: September 01, 2024 Simin Yu NP, MANAGER BEVERAGE-C Attending Provider Active Start: September 01, 2024 End: September 01, 2024 Team Status: Active Member Role/Relationship Status Dates JEFF VELASCO Primary Care Provider Active Team Status: Active Member Role/Relationship Status Dates Dr. Tiffany Marks MD Primary Care Provider Active Start: September 02, 2024 Ashley Larose MANAGER BEVERAGE-C Attending Provider Active Start: September 02, 2024 Ashley Larose MANAGER BEVERAGE-C Referring Provider Active Start: September 02, 2024 Team Status: Inactive Member Role/Relationship Status Dates Ashley Larose NP-C Attending Provider Active Start: September 05, 2024 End: September 05, 2024 MICHELLE MELLO PLANT CULTURE MANAGER Primary Care Provider Active Start: September 05, 2024 End: September 05, 2024 MICHELLE MAST , PLANT CULTURE MANAGER Referring Provider Active Sta rt: September 05, [...] Status: Inactive Member Role/Relationship Status Dates MICHELLESASHA MELLO , PLANT CULTURE MANAGER Primary Care Provider Active Start: September 10, 2024 End: September 10, 2024 Ashley Larose NP-C Attending Provider Active Start: September 10, 2024 End: September 10, 2024 Ashley Larose MANAGER BEVERAGE-C Referring Provider Active Start: September 10, 2024 End: September 10, 2024 Team Status: Active Member Role/Relationship Status Dates Employee Health Attending Provider Active Start: June 05, 2024 Team Status: Active Member Role/Relationship Status Dates MICHELLE MAST , PLANT CULTURE MANAGER Primary Care Provider Active Start: June 05, 2024 Health Risk Assessment Attending Provider Active Start: June 05, 2024 Health Risk Assessment Referring Provider Active Start: June 05, 2024 Team Status: Inactive Member Role/Relationship Status Dates MICHELLE MAST , PLANT CULTURE MANAGER Primary Care Provider Active Start: July 16, 2024 End: July 16, 2024 Libertad Pate NP-C Attending Provider Active Start: July 16, 2024 End: July 16, 2024 Libertad Pate NP-C Referring Provider Active Start: July 16, 2024 [...] 2024 End: July 30, 2024 Ashley Larose MANAGER BEVERAGE-C Attending Provider Active Start: July 30, 2024 End: July 30, 2024 Ashley Larose NP-C Referring Provider Active Start: July 30, 2024 End: July 30, 2024 Team Status: Inactive Member Role/Relationship Status Dates Dr. Tiffany Marks MD Primary Care Provider Active Start: August 05, 2024 End: August 05, 2024 Ashley Larose MANAGER BEVERAGE-C Attending Provider Active Start: August 05, 2024 [...] 2024 End: September 01, 2024 Simin Yu MANAGER BEVERAGE, MANAGER BEVERAGE-C Attending Provider Active Start: September 01, 2024 End: September 01, 2024 Team Status: Inactive Member Role/Relationship Status Dates Dr. Tiffany Marks MD Primary Care Provider Active Start: September 02, 2024 End: September 02, 2024 Ashley Larose MANAGER BEVERAGE-C Attending Provider Active Start: September 02, 2024 End: September 02, 2024 Ashley Larose MANAGER BEVERAGE-C Referring Provider Active Start: September 02, 2024 End: September 02, 2024 Team Status: Inactive Member Role/Relationship Status Dates Ashley Larose MANAGER BEVERAGE-C Attending Provider Active Start: September 05, 2024 End: September 05, 2024 MICHELLE MAST , PLANT CULTURE MANAGER Primary Care Provider Active Start: September 05, 2024 End: September 05, 2024 MICHELLE MAST , PLANT CULTURE MANAGER Referring Provider Active Sta rt: September 05, 2024 End: September 05, 2024 Team Status: Inactive Member Role/Relationship Status Dates MICHELLE MAST , PLANT CULTURE MANAGER Primary Care Provider Active Start: September 10, 2024 End: September 10, 2024 Ashley Larose , MANAGER BEVERAGE-C Attending Provider Active Start: September 10, 2024 End: September 10, 2024 Ashley Larose , MANAGER BEVERAGE-C Referring Provider Active Start: September 10, 2024 End: September 10, 2024 Team Status: Inactive Member Role/Relationship Status Dates MICHELLE MAST , PLANT CULTURE MANAGER Referring Provider Active Sta rt: September 18, 2024 End: September 18, 2024 Dr. Teresa Wilkinson MD Attending Provider Active Start: September 18, 2024 End: September 18, 2024 Team Status: Inactive Member Role/Relationship Status Dates MICHELLE MAST , PLANT CULTURE MANAGER Referring Provider Active Sta rt: September 18, 2024 End: September 18, 2024 Dr. Teresa Wilkinson MD Attending Provider Active Start: September 18, 2024 End: September 18, 2024 Team Status: Inactive Member Role/Relationship Status Dates Simin Yu NP, MANAGER BEVERAGE-C Attending Provider Active Start: September 19, 2024 End: September 19, 2024 Simin Yu NP, MANAGER BEVERAGE-C Referring Provider Active Start: September 19, 2024 End: September 19, 2024 JEFF VELASCO Primary Care Provider Active Start: September 19, 2024 End: September 19, 2024 Team Status: Inactive Member Role/Relationship Status Dates JEFF VELASCO Primary Care Provider Active Start: July 16, 2024 End: July 16, 2024 Libertad Pate NP-C Attending Provider Active Start: July 16, 2024 End: July 16, 2024 Libertad Pate NP-C Referring Provider Active Start: July 16, 2024 [...] 2024 End: August 05, 2024 Ashley Larose MANAGER BEVERAGE-C Attending Provider Active Start: August 05, 2024 End: August 05, 2024 Ashley Larose MANAGER BEVERAGE-C Referring Provider Active Start: August 05, 2024 [...] End: September 01, 2024 Simin Yu NP, MANAGER BEVERAGE-C Attending Provider Active Start: September 01, 2024 End: September 01, 2024 Team Status: Inactive Member Role/Relationship Status Dates Dr. Tiffany Marks MD Primary Care Provider Active Start: September 02, 2024 End: September 02, 2024 Ashley Larose MANAGER BEVERAGE-C Attending Provider Active Start: September 02, 2024 End: September 02, 2024 Ashley Larose NP-C Referring Provider Active Start: September 02, 2024 End: September 02, 2024 Team Status: Inactive Member Role/Relationship Status Dates Ashley Larose MANAGER BEVERAGE-C Attending Provider Active Start: September 05, 2024 [...] Member Role/Relationship Status Dates MICHELLE MAST , PLANT CULTURE MANAGER Referring Provider Active Sta rt: September 18, 2024 End: September 18, 2024 Dr. Teresa Wilkinson MD Attending Provider Active Start: September 18, 2024 End: September 18, 2024 Team Status: Inactive Member Role/Relationship Status Dates Simin Yu MANAGER BEVERAGE, MANAGER BEVERAGE-C Attending Provider Active Start: September 19, 2024 End: September 19, 2024 Simin Yu MANAGER BEVERAGE, MANAGER BEVERAGE-C Referring Provider Active Start: September 19, 2024 End: September 19, 2024 MICHELLE MAST , PLANT CULTURE MANAGER Primary Care Provider Active Start: September 19, 2024 End: September 19, 2024 Team Status: Inactive Member Role/Relationship Status Dates Simin Yu NP, MANAGER BEVERAGE-C Attending Provider Active Start: October 14, 2024 End: October 14, 2024 MICHELLE MAST , PLANT CULTURE MANAGER Primary Care Provider Active Start: October 14, 2024 End: October 14, 2024 MICHELLE MAST , PLANT CULTURE MANAGER Referring Provider Active Sta rt: October 14, 2024 End: October 14, 2024 Team Status: Active Member Role/Relationship Status Dates MICHELLE MAST , PLANT CULTURE MANAGER Primary Care Provider Active Start: October 14, 2024 KO Ram Attending Provider Active Start: October 14, 2024 KO Ram Referring Provider Active Start: October 14, 2024 Team Status: Active Member Role/Relationship Status Dates MICHELLE MAST , PLANT CULTURE MANAGER Primary Care Provider Active Start: October 14, 2024 Simin Yu MANAGER BEVERAGE, MANAGER BEVERAGE-C Attending Provider Active Start: October 14, 2024 Team Status: Inactive Member Role/Relationship Status Dates MICHELLE MAST , PLANT CULTURE MANAGER Primary Care Provider Active Start: October 21, 2024 End: October 21, 2024 Dr. Luis Pandya MD Attending Provider Active Start: October 21, 2024 End: October 21, 2024 Ashley Larose MANAGER BEVERAGE-C Referring Provider Active Start: October 21, 2024 End: October 21, 2024 Team Status: Inactive Member Role/Relationship Status Dates MICHELLE MAST , PLANT CULTURE MANAGER Primary Care Provider Active Start: October 14, 2024 End: October 14, 2024 JANIE Almonte NPC Attending Provider Active Start: October 14, 2024 End: October 14, 2024 Team Status: Inactive Member Role/Relationship Status Dates MICHELLE MAST , PLANT CULTURE MANAGER Primary Care Provider Active Start: October 14, 2024 End: October 14, 2024 KO Ram Attending Provider Active Start: October 14, 2024 End: October 14, 2024 KO Ram Referring Provider Active Start: October 14, 2024 End: October 14, 2024 Team Status: Inactive Member Role/Relationship Status Dates MICHELLE MAST , PLANT CULTURE MANAGER Primary Care Provider Active Start: October 30, 2024 End: October 30, 2024 MICHELLE MAST , PLANT CULTURE MANAGER Referring Provider Active Sta rt: October 30, 2024 End: October 30, 2024 DELMIS Crenshaw Attending Provider Active Start: October 30, 2024 End: October 30, 2024 Team Status: Active Member Role/Relationship Status Dates MICHELLE MAST , PLANT CULTURE MANAGER Primary care physician Active Team Status: Active Member Role/Relationship Status Dates Dr. Tiffany Marks MD Primary care physician Active Start: July 29, 2024 Health Risk Assessment Attending physician Active Start: July 29, 2024 Health Risk Assessment Referring Provider Active Start: July 29, 2024 Team Status: Inactive Member Role/Relationship Status Dates MICHELLE MAST , PLANT CULTURE MANAGER Referring Provider Active Sta rt: July 30, [...] August 05, 2024 Ashley Larose NP-C Attending physician Active Start: August 05, 2024 [...] End: September 01, 2024 Simin Yu NP, MANAGER BEVERAGE-C Attending physician Active Start: September 01, 2024 [...] Status: Inactive Member Role/Relationship Status Dates MICHELLESASHA MELLO , PLANT CULTURE MANAGER Referring Provider Active Sta rt: September 18, 2024 End: September 18, 2024 Dr. Teresa Wilkinson MD Attending physician Active Start: September 18, 2024 End: September 18, 2024 Team Status: Inactive Member Role/Relationship Status Dates Simin Yu NP, MANAGER BEVERAGE-C Attending physician Active Start: September 19, 2024 End: September 19, 2024 Simin Yu NP, MANAGER BEVERAGE-C Referring Provider Active Start: September 19, 2024 End: September 19, 2024 MICHELLE MELLO PLANT CULTURE MANAGER Primary care physician Active Start: September 19, 2024 End: September 19, 2024 Team Status: Inactive Member Role/Relationship Status Dates Simin Yu NP, MANAGER BEVERAGE-C Attending physician Active Start: October 14, 2024 End: October 14, 2024 MICHELLE MELLO , PLANT CULTURE MANAGER Primary care physician Active Start: October 14, 2024 End: October 14, 2024 MICHELLE MAST , PL[employer] C[employer]URE MANAGER Referring Provider Active Sta rt: October 14, 2024 End: October 14, 2024 Team Status: Inactive Member Role/Relationship Status Dates MICHELLE MAST , PLANT C[employer]URE MANAGER Primary care physician Active Start: October 14, 2024 End: October 14, 2024 KO Ram Attending physician Active Start: October 14, 2024 End: October 14, 2024 KO Ram Referring Provider Active Start: October 14, 2024 End: October 14, 2024 Team Status: Inactive Member Role/Relationship Status Dates MICHELLE MAST , PL[employer] C[employer]URE MANAGER Primary care physician Active Start: October 14, 2024 End: October 14, 2024 Simin Yu NP, [employer]GER [employer] Attending physician Active Start: October 14, 2024 End: October 14, 2024 Team Status: Inactive Member Role/Relationship Status Dates MICHELLE MAST , PL[employer] C[employer]URE MANAGER Primary care physician Active Start: October 21, 2024 End: October 21, 2024 Dr. Luis Pandya MD Attending physician Active Start: October 21, 2024 End: October 21, 2024 DELMIS Crenshaw Referring Provider Active Start: October 21, 2024 End: October 21, 2024 Team Status: Inactive Member Role/Relationship Status Dates MICHELLE MELLO , JEFF Primary care physician Active Start: October 30, 2024 End: October 30, 2024 MICHELLE MAST , PL[employer] C[employer]URE MANAGER Referring Provider Active Sta rt: October 30, 2024 End: October 30, 2024 DELMIS Crenshaw Attending physician Active Start: October 30, 2024 End: October 30, 2024 Team Status: Active Member Role/Relationship Status Dates JEFF VELASCO Primary care physician Active Start: November 19, 2024 Dr. Teresa Wilkinson MD Attending physician Active Start: November 19, 2024 Dr. Teresa Wilkinson MD Referring Provider Active Start: November 19, 2024 Team Status: Inactive Member Role/Relationship Status Dates MICHELLESASHA MELLO , PLANT C[employer]URE MANAGER Primary care physician Active Start: November 24, 2024 End: November 24, 2024 MICHELLE MAST , PLANT CULTURE MANAGER Referring Provider Active Sta rt: November 24, 2024 End: November 24, 2024 JANIE Almonte NPC Attending physician Active Start: November 24, 2024 End: November 24, 2024 Team Status: Inactive Member Role/Relationship Status Dates MICHELLE MELLO , PLANT CULTURE MANAGER Primary care physician Active Start: November 19, [...] BE BASED ON THE PRIMARY CLINICAL RECORDS. [facility]. provides no warranty or guarantee of the accuracy or completeness of information in this document.
[2024-12-10 22:05] VITALS: BP 101/67; PULSE 78; RESP 16; TEMP 36.6; O2SAT 99
--- NOTE | 2024-12-10 23:36 | EX.ED.DYSGE1 ---
HPI History of Present Illness Chief Complaint: Wound Check Informant: patient and parent Narrative Narrative: 24-year-old female postoperative day 6 from laparoscopic cholecystectomy here at [facility] by Dr. Pandya. Patient is concerned with possible surgical site infection. She notes that she had "internal stitches" and glue applied to her wounds. She states that she has noticed some redness around the wounds and is concerned about infection. She feels generally tired. She notes some diarrhea since the surgery. No reported fever [facility] Medical History FH: cholecystectomy Biliary dyskinesia Wears glasses Depression Anxiety Cholinesterase deficiency Gastric reflux Non-smoker Biliary dyskinesia HSV-2 (herpes simplex virus 2) infection IBS (irritable bowel syndrome) Seasonal allergies Pre-eclampsia History of pre-term labor Infertility PCOS (polycystic ovarian syndrome) Home Medications Medication Instructions Recorded Last Taken Type valacyclovir 500 mg tablet 500 mg PO QDAY HSV 30 days #30 tabs 05/26/24 12/03/24 Rx calcium polycarbophil 625 mg 1,250 mg (2 x 625 mg) PO QDAY #180 07/30/24 12/03/24 Rx tablet (FiberCon) tabs rabeprazole 20 mg tablet,delayed 20 mg PO QDAY #90 tabs 07/30/24 12/03/24 Rx release buspirone 5 mg tablet 5 mg PO TID #90 tabs 08/13/24 12/03/24 Rx fluoxetine 10 mg capsule (Prozac) 10 mg PO QDAY #30 caps 08/13/24 12/03/24 Rx metformin 500 mg tablet 500 mg PO BID #60 tabs 08/13/24 12/03/24 Rx dicyclomine 10 mg capsule 10 mg PO TID #90 caps 10/28/24 12/03/24 Rx spironolactone 25 mg tablet 50 mg PO DAILY 10/30/24 12/03/24 History tranexamic acid 650 mg tablet 1,300 mg PO TID PRN bleeding 10/30/24 12/03/24 History medroxyprogesterone 10 mg tablet 10 mg PO .COMPLEX #10 tabs 11/25/24 12/03/24 Rx oxycodone 5 mg tablet 5 mg PO TID PRN pain 4 days #12 12/04/24 Unknown Rx tabs cephalexin 500 mg capsule 500 mg PO Q6 #28 CAPSULES 12/10/24 Unknown Rx Allergy/AdvReac Type Severity Reaction Status Date / Time No Known Allergies Allergy Verified 12/10/24 19:21 Family History Mother Colon cancer 40s Thyroid disorder Arthritis Depression Type 2 diabetes mellitus Grandmother Arthritis Sister Hormone imbalance pcos Depression Endometriosis Grandmother Colon cancer Sister Endometriosis Grandfather Colon cancer Lung cancer Surgical History S/P section S/P nasal septoplasty History of strabismus surgery History of tonsillectomy Social History adopted: No household members: spouse and children housing: house number of children: 3 current occupational status: employed 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 [employer] 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 travel: No sexually active: Yes Smoking Status: Never smoker second hand exposure: No alcohol intake: never substance use type: does not use caffeine: No eating out: rarely or never during the past year weight has: increased > 10 lbs what type of physical activity do you participate in: other details: different work outs frequency: 3-4 times per week duration: 15-30 minutes/day seatbelt use: always do you feel safe at home: Yes ROS ROS ED Constitutional Constitutional ED: Denies chills or weight loss Eyes Eyes: Denies change in vision or diplopia ENT ENT ED: Denies ear pain, rhinorrhea or sore throat Cardiovascular Cardiovascular: Denies chest pain, orthopnea, palpitations or racing heartbeat Respiratory/Chest Respiratory/Chest: Denies cough, dyspnea or orthopnea Gastrointestinal Gastrointestinal: Denies abdominal pain, diarrhea, nausea or vomiting Genitourinary Genitourinary ED: Denies dysuria, hematuria or urinary frequency Musculoskeletal Musculoskeletal: Denies arthralgias or myalgias Integumentary Reports rash; Denies abscess Neurologic Neurologic: Denies headache(s) or weakness Psychiatric Psychiatric: Denies anxiety, depression, suicidal ideation or suicidal thoughts Endocrine Endocrinology: Denies polydipsia, polyphagia or polyuria Allergic/Immunologic Allergic/Immunologic ED: Denies mouth swelling, tongue swelling or urticaria EXAM Physical Exam Const Vital Signs: 12/10/24 19:20 12/10/24 20:55 12/10/24 22:05 Temperature 98.5 F 98.7 F 98 F Temperature Source Oral Oral Pulse Rate 109 H 80 78 Respiratory Rate 16 18 16 Blood Pressure 139/102 H 110/70 101/67 Blood Pressure Mean 114 83 78 Pulse Ox 99 98 99 Oxygen Delivery Method Room Air Room Air Positive well nourished and well developed General Appearance ED: well developed HEENT Reports normocephalic, head/scalp atraumatic and moist mucous membranes Eyes PERRL and EOMs intact bilaterally Neck no lymphadenopathy, supple and no JVD Resp normal respiratory effort and clear to auscultation bilaterally Cardio regular rate, regular rhythm and no murmurs GI normal to inspection, nondistended, normoactive bowel sounds and non-tender Palpation: soft Back/Spine no CVA tenderness and normal ROM Extremity normal to inspection General Extremety ED: Negative for edema General Extremity: Negative for edema Neuro oriented x3 and CN's II-XII intact bilaterally Sensorium / Orientation: alert Motor Exam: strength 5/5 throughout Psych mental status grossly normal Mood & Affect: Negative for depressed or tearful Skin Skin Narrative: The laparoscopic surgical sites appear clean and dry. There is glue on them. Surrounding each 1 is a minor degree of erythema most pronounced however on the incision on the right abdomen. The umbilicus demonstrates shows some irritation of the skin into the umbilicus. It appears excoriated nature but I do not see any drainage. MDM MDM MDM Narrative Medical decision making narrative: Differential diagnosis includes skin irritation due to glue stitch abscess cellulitis hematoma allergic reaction Clinically I think this is less likely to be cellulitic and probably more reaction to the glue. It is around all 4 surgical incisions and I think the unlikely to have a localized cellulitis of all 4 surgical sites. However I did do not feel that it is unreasonable to provide antibiotic coverage with Keflex. She should continue localized wound care. She can keep her follow-up appointment with general surgery return if worsening or concerns. Local care at home was discussed with mom and the patient who understanding History & Record Review Discussion w/independent historian: Patient and Family Discharge Plan Triage Chief Complaint: Wound Check ED Provider: Zurdo Maldonado Dx/Rx/DC Orders Clinical Impression: Visit for wound check, Localized adverse drug reaction Instructions: ED Post Op Wound Check, General Prescriptions: New cephalexin 500 mg capsule 500 mg PO Q6 Qty: 28 0RF No Action rabeprazole 20 mg tablet,delayed release (DR/EC) 20 mg PO QDAY Qty: 90 1RF calcium polycarbophil [FiberCon] 625 mg tablet 1,250 mg PO QDAY Qty: 180 1RF buspirone 5 mg tablet 5 mg PO TID Qty: 90 2RF fluoxetine [Prozac] 10 mg capsule 10 mg PO QDAY Qty: 30 2RF metformin 500 mg tablet 500 mg PO BID Qty: 60 2RF spironolactone 25 mg tablet 50 mg PO DAILY tranexamic acid 650 mg tablet 1,300 mg PO TID PRN (Reason: bleeding) oxycodone 5 mg tablet 5 mg PO TID PRN (Reason: pain) 4 Days Qty: 12 0RF valacyclovir 500 mg tablet 500 mg PO QDAY 30 Days Qty: 30 11RF dicyclomine 10 mg capsule 10 mg PO TID Qty: 90 1RF medroxyprogesterone 10 mg tablet 10 mg PO .COMPLEX Qty: 10 3RF Rx Instructions: 10 mg orally first 10 days each month.; Primary Care Provider: BRIAN DOMINIQUE Referrals: Luis Pandya MD [Med Staff - Active Staff, General Surgery] - Keep Susan appointment BRIAN DOMINIQUE CRNP [Primary Care Provider, Family Practice] Print Language: Urdu Disposition Disposition: Home, Self Care Discharge Date/Time: 12/10/24 22:07
== END 2024-12-10 22:07 | disposition home or self-care (01) ==
PROVIDERS: Emergency Provider Emergency Medicine; PCP Nurse Practitioner Adult Health; Visit Provider Emergency Medicine
DX: T50.995A Adverse effect of other drugs, medicaments and biological substances, initial encounter (principal); R19.7 Diarrhea, unspecified; Z79.84 Long term (current) use of oral hypoglycemic drugs; Z79.899 Other long term (current) drug therapy; Z90.49 Acquired absence of other specified parts of digestive tract
CPT/HCPCS: 99282